=== PATIENT | female | born 1940 | race Caucasian/White ===

== ENCOUNTER 2017-05-20 18:35 | Emergency (ER) | payer MEDICARE, OTHER, SELFPAY ==
[2017-05-20 18:37] VITALS: BP 142/91; PULSE 91; RESP 16; TEMP 37.1; O2SAT 98; BMI 27.2
--- NOTE | 2017-05-20 18:52 | CT_ITS ---
STUDY: CT ABDOMEN AND PELVIS WITHOUT CONTRAST REASON FOR EXAM: Female, 76 years old. Right flank pain x2 days RADIATION DOSAGE (If Supplied By Facility): CTDIvol = ( 9.35 ) mGy, DLP = ( 457.97 ) mGycm TECHNIQUE: Transaxial images were obtained from the dome of the diaphragm to the symphysis pubis without oral contrast, and without intravenous contrast. Sagittal and coronal images were reconstructed. Individualized dose optimization techniques were used for this CT. COMPARISON: Prior study of 11/10/2014 FINDINGS: There are mild bibasilar fibrotic changes. The visualized portions of the heart are within normal limits. There is a 1.3 cm right hepatic lobe cyst, stable in the interval. Normal gallbladder and extrahepatic biliary system. Normal spleen. Normal pancreas. Normal bilateral adrenal glands. There is a low-attenuation 1.5 cm focus of the midpole of the right kidney consistent with cyst, appearing stable in the interval. There is a 5.7 cm cyst of the posterior left kidney. There is an additional smaller left parapelvic cyst. These are stable in the interval. Normal visualized stomach. Normal small intestine. There is colonic diverticulosis with no evidence of associated diverticulitis. The appendix is visualized and appears normal. There are calcified plaques of the abdominal aorta and iliac arteries. 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 There has been migration of multiple filter struts beyond the ellis of the IVC. There is no evidence of retroperitoneal hematoma or mass. Normal retroperitoneum. A number of the pelvic images are technically limited due to scanning artifact caused by left hip implants. No bladder abnormalities identified. There is absence of the uterus consistent with a prior hysterectomy. Abdominal wall hernia repair changes are noted. There are diffuse degenerative changes of the visualized thoracolumbar spine. There is a grade 1 anterolisthesis of L4 relative to L5. Status post total left hip replacement changes are seen. CT/Abdomen/Pelvis without Cont IMPRESSION: 1. 1.3 cm right hepatic lobe cyst, stable in the interval. 2. Stable bilateral renal cysts. 3. Colonic diverticulosis with no evidence of associated diverticulitis. 4. An IVC filter is noted with migration of multiple filter struts beyond the ellis of the IVC. There is no evidence of associated retroperitoneal hematoma. This finding was also noted on the prior study and is stable in the interval. 5. Status post total left hip replacement changes. 6. Status post hysterectomy. 7. Status post intra-abdominal wall hernia repair changes. 8. Diffuse degenerative changes of the visualized thoracolumbar spine. Grade 1 anterolisthesis of L4 relative to L5. 9. There is no evidence of free intra-abdominal or intrapelvic air, fluid, or inflammatory process. Electronically Signed: Cooper Ramirez MD at 20:22 EST , Service support ,
[2017-05-20] MEDS: Ondansetron 4 MG/2 ML Vial IV (19:00)
[2017-05-20] MEDS: 0.9% Normal Saline 1,000 ML 150 ML IV (19:00)
[2017-05-20 19:07] LABS: Absolute Lymphocyte Count 1.67 X10^3/ul (0.83-4.51); Absolute Neutrophil Count 5.8 X10^3/uL (2.0-7.7); Basophil# 0.05 X10^3/uL; Basophil% 0.6 % (0-1); Eosinophil# 0.21 X10^3/uL; Eosinophils% 2.5 % (0-5); Hematocrit 48.1 % (37-47); Hemoglobin 15.9 g/dl (12.0-15.0); Lymphocyte # 1.67 X10^3/ul (4.0); Lymphocyte % 19.5 % (19-41); Mean Corp Hgb Conc 33.1 g/gl (32-36); Mean Corpuscular Hgb 29.7 pg (27.0-32.0); Mean Corpuscular Volume 89.7 fL (81-99); Mean Platelet Vol. 9.8 fl (6.2-12.0); Monocyte# 0.79 X10^3/uL; Monocyte% 9.2 % (0-10); Neutrophil # 5.81 X10^3/uL (2.7-7.7); POSITIVE COUNT NO; POSITIVE DIFFERENTIAL NO; POSITIVE MORPHOLOGY NO; Platelet Count 254 K/mm3 (150-450); RBC Distribution Width SD 43.2 fl (35.1-43.9); Red Blood Count 5.36 M/mm3 (4.2-5.4); White Blood Count 8.6 K/mm3 (4.4-11.0)
[2017-05-20 19:12] LABS: Anion Gap 6 (5-15); BUN 15 mg/dL (7-18); Calcium,Total 8.7 mg/dL (8.5-10.1); Chloride 104 mmol/L (98-107); Creatinine, Serum 1.07 mg/dL (0.55-1.02); EST Glomerular Filtration Rate 53 mL/min (>60); Est Glom Filt Rate - Afr Amer 64 mL/min (>60); Estimated Creatinine Clearance 40.25 ml/min; Glucose 141 mg/dL (74-106); Potassium 3.7 mmol/L (3.5-5.1); Sodium Level 139 mmol/L (136-145)
[2017-05-20 20:11] LABS: Bacteria 0 SEEN /hpf (None Seen); Squamous Epithelial Cells - UA 0 SEEN /hpf (5-10)
[2017-05-20 20:12] LABS: Color, Urine Yellow (Yellow); Glucose, Dipstick Normal (Normal); Ketone-Dipstick 5 mg/dl (Negative); Leukocyte Esterase-Dipstick 500 /ul (Negative); Nitrite-Dipstick Negative (Negative); Occult Blood-Urine 25 /ul (Negative); Protein-Dipstick Negative (Negative); Urine Bilirubin Dipstick Negative (Negative); Urine Clarity Clear (Clear); Urine Urobilinogen Normal (Normal)
[2017-05-20 20:21] LABS: Mucous, Urine 1+ /hpf (<or=2+); Red Blood Cells-Urine 0-5 SEEN /hpf (0-5); White Blood Cells 5-10 SEEN /hpf (0-5)
--- NOTE | 2017-05-20 20:38 | ED.DCSUM_ITS ---
- ER Visit Summary Date of Service: 05/20/17 Chief Complaint: Flank pain History of Present Illness: The patient is a 76 F who developed right-sided back pain yesterday when standing from a chair. She tried to massage the area which did in prove the pain shortly. Patient states that overnight last night pain wrapped around into the right lower quadrant. She tried taking tramadol 50 mg this morning minimal improvement. She has had problems with her back in the past but is never required injections or surgery. She denies urinary symptoms currently. Physical Examination: Vital signs are unremarkable. Patient is in no acute distress and is nontoxic appearing. Head and neck examination is normal. Heart is regular rate and rhythm. Palpable pulses are noted throughout. Lungs are clear with good air movement throughout. Abdomen is soft with mild tenderness in the right lower quadrant. There is no guarding or rebound. Back examination reveals tenderness in the right lumbar region. No skin changes are noted. Extremity examination is unremarkable with full range of motion. Neurologic examination reveals no focal deficits. Test Results: CBC reveals normal white count with hemoglobin of 15.9. Chemistry studies are grossly unremarkable. Urinalysis shows 5-10 white blood cells with [address] flank reveals stable hepatic cyst. Colonic diverticulosis is noted. There is an IVC filter that is stable when compared to prior study. Degenerative arthritic changes are noted. Emergency Department Course and Treatment: Patient was given morphine, Zofran, and IV fluids. At this time we will send a urine culture but not start antibiotics as the patient does not have symptoms. She will be given a prescription for [place] with a home pack tonight. Treatment Plan: [] Disposition: Discharge Impression: Right flank pain, musculoskeletal This note was generated with [employer] dictation software. It may contain incorrect words, spelling, and punctuation that were not noted in review of the chart prior to signing ED Disposition - Plan for ED Patient: Disposition: Home or Assisted Living Chief Complaint: Flank Pain Instructions: ED Flank Pain Uncertain Cause Prescriptions: Hydrocodone Bitart/Apap 5-325 [[place] 5/325] 1 - 2 tablet PO Q6H PRN PRN 3 Days # 12 tablet PRN Reason: Pain Referrals: Radha Mcrae MD [Primary Care Provider] - 1 Week
--- NOTE | 2017-05-20 20:38 | ED.DEP ---
ED Disposition - Plan for ED Patient: Disposition: Home or Assisted Living Chief Complaint: Flank Pain Instructions: ED Flank Pain Uncertain Cause Prescriptions: Hydrocodone Bitart/Apap 5-325 [[place] 5/325] 1 - 2 tablet PO Q6H PRN PRN 3 Days #12 tablet PRN Reason: Pain Referrals: Radha Mcrae MD [Primary Care Provider] - 1 Week
--- NOTE | 2017-05-20 20:41 | DCINST.ED_ITS ---
ED Disposition - Plan for ED Patient: Disposition: Home or Assisted Living Chief Complaint: Flank Pain Instructions: ED Flank Pain Uncertain Cause Prescriptions: Hydrocodone Bitart/Apap 5-325 [[place] 5/325] 1 - 2 tablet PO Q6H PRN PRN 3 Days # 12 tablet PRN Reason: Pain Referrals: Radha Mcrae MD [Primary Care Provider] - 1 Week
[2017-05-20] MEDS: HYDROcodone Bitartrate/Apap 5/325 Tablet PO (20:51)
[2017-05-20 20:54] VITALS: BP 127/77; PULSE 74; RESP 18; O2SAT 94
== END 2017-05-20 20:54 | disposition home or self-care (01) ==
PROVIDERS: Emergency Provider Emergency Medicine; Family Provider Internal Medicine; PCP Internal Medicine
DX: R10.31 Right lower quadrant pain (principal); I10 Essential (primary) hypertension; E03.9 Hypothyroidism, unspecified; Z79.01 Long term (current) use of anticoagulants; Z79.899 Other long term (current) drug therapy
CPT/HCPCS: 74176; 80048; 81001; 85025; 87077; 87086; 87088; 96361; 96374; 96375; 99283; J7030; A4216; J2405

== ENCOUNTER 2017-06-19 13:30 | Outpatient (RCR) | payer MEDICARE, OTHER, SELFPAY ==
--- NOTE | 2017-05-29 07:24 | HP.PTEVAL_ITS ---
Patient's Visit Information KEYONNA VILLAGOMEZ is a 76 year old F referred to Physical Therapy by [facility] with a diagnosis of lumbar disc degeneration. Date of Evaluation: 05/24/17 Physical Therapist: Baljinder Fowler - Visit Plan Frequency: 2-3x /Week Duration: 4-6 Weeks Plan: Start with SKTC, HS stretching, neutral spine core strengthening. May use modalities to reduce symptoms. progress to functional strengthening as tolerated. Instruct body mechanics and proper posture positioning. - Subjective Subjective: Pt. is here today for her initial evaluation with diagnosis of lumbar disc degeneration. Pt. reports having increased symptoms recently, for unknown reason, I just woke up with pain. Pt. reports having R sided pain. She has been feeling better over the past few days after taking predinose and muscle relaxors. Pt was previously having increased pain into her RLE to knee level. Pt. reports having previous issues, reduced with time. Pt. reports increased pain with all lifting, bending, twisting, sitting for too long and with getting up and down. Pt. reports no changes with B/B. Pt. reports improved symptoms since starting medications. Pt. is hopeful to reduce symptoms in order to increase tolerance to all activities and ALDs. - Pain Lumbar spine Pain Intensity (Out of 10): 2 Pain Intensity Range: 2, 6 Comment: R side of lumbar spine - Objective POSTURE: Pt. has slight increase in lumbar flexion in stnace, L lateral lean noted. Pt. had rounded shoulders and FH positioning. Pt. has equal iliac crest heights. Pt. has normal XIMENA with ewaul wt. shift in stance. PALPATION: Pt. has mild increase in symptoms to palpation of R side of lumbar erector spinea, R SI region, no pain at R gluteal region or piriformis. No pain noted on L side of lumbar spine or SI region. Pt. reports no pain with R/L hip palpation. NEUROLOGICAL: Pt. has normal sensation to light and sharp touch of bilateral LEs. Pt. has 2+ patellar and achilles DTR bilaterally. Pt. is able to rise on heels and toes without issues or signs of weakness. ROM: LUMBAR SPINE: flexion min loss increase NW (tightness), ext min loss increase NW (tightness), SB min loss bilat increase NW (tightness), rotation min loss increase NW (tightness). Pt. has normal hip ROM bilaterally, tight HS bilat. MMT: LLE- ankle 5/5 throughout; knee- ext 5-/5, flexion 5-/5; hip- flexion 4+/5, abd 4/5, ext 4+/5. RLE- ankle 5/5 throughout; knee- ext 4+/5, flexion 4+/5; hip- flexion 4/5 ( increase NW), and 4/5, ext 4/5. Core strength- poor. GAIT: Pt. ambulates without AD. Pt. has R lateral lean during R stance phase. Pt. has decreased R stance phase and increased R hip lateral excursion during R stance phase. STAIRS : Pt. negotiated with step to pattern with BHR with loading LLE throuhgout. Mild increase NW. - Special Tests L/S Slump test left side: Negative L/S Slump test right side: Negative L/S Left Straight Leg Raise: Negative L/S Right Straight Leg Raise: Negative Lumbar Standing: Flexion - Mechanical Response: No effect Lumbar Standing: Flexion - Symptoms During Testing: Increases Lumbar Standing: Flexion - Symptoms After Testing: No worse Lumbar Standing: Extension - Mechanical Response: No effect Lumbar Standing: Extension - Symptoms During Testing: Increases Lumbar Standing: Extension - Symptoms After Testing: No worse Lumbar Standing: Right Side Glides - Mechanical Response: No effect Lumbar Standing: Right Side [place] - Symptoms During Testing: Increases Lumbar Standing: Right Side [place] - Symptoms After Testing: No worse Lumbar Standing: Left Side [place] - Mechanical Response: No effect Lumbar Standing: Left Side [place] - Symptoms During Testing: Increases Lumbar Standing: Left Side [place] - Symptoms After Testing: No worse Lumbar Lying: Flexion - Mechanical Response: No effect Lumbar Lying: Flexion - Symptoms During Testing: Decreases Lumbar Lying: Flexion - Symptoms After Testing: Better - Goals Goal 1:: Pt. to be I with HEP. Goal Time Frame: 4-6 Weeks Goal 2:: Pt. to have increased lumbar ROM by 25% in all directions without increase in symptoms. Goal Time Frame: 4-6 Weeks Goal 3:: Pt. to sleep throughout the night with 0-2/10 pain in lumbar spine allowing for increased quality of life. Goal Time Frame: 4-6 Weeks Goal 4:: Pt. to have 0-2/10 pain with all walking and ADLs. Goal Time Frame: 4-6 Weeks Goal 5:: Pt. to get back to all recreational activities with 0-2/10 pain in lumbar spine. Goal Time Frame: 4-6 Weeks Goal 6:: Pt. to have increased core/B hip strength by 1/2 grade of all effected musculature. Goal Time Frame: 4-6 Weeks - Rehabilitation Potential Physical Therapy Diagnosis: Pt. has signs and symptoms of lumbar spine pain, but did not have any radiating symptoms this date. Pt. has general hypombility throughout spine with increased symptoms into lumbar extension. Pt. has increased pain with all functional mobility, but has improved since starting medications. Pt. would benefit from PT to increasse postural/core strength, body mechanics with lifting and ADLs and to reduce symptoms with all ADLs and household work. Rehabilitation Potential: Excellent - Anticipated Interventions Patient/Client Instruction: Educate patient on: Condition, Plan of Care, Risk Factors, Benefits of Fitness Program For the Purpose of:: To foster healthy habits, To improve decision making, To facilitate caregiver knowledge, To improve self management, To prevent re-injury , To improve ability to perform tasks related to life management, To improve tolerance to ADL's Therapeutic Exercise to Include: Strength training, Power training, Endurance training, Body mechanics, Postural training, Flexibilty training, Passive ROM, Active ROM, Dynamic Lumbar Stabilization, Luis Alberto Exercises For the Purpose of:: To decrease pain, To decrease swelling/inflammation, To increase ROM, To improve nutrient delivery to tissue, To increase oxygenation perfusion, To improve muscle performance and motor function, To improve ability to perform ADL's, To improve health of tissue, To decrease soft tissue restriction, To increase flexibility/ROM Manual Therapy Techniques to Include: Mobilization, Passive ROM, Functional dry needling, Soft tissue mobilization For the Purpose of:: To decrease pain, To decrease swelling/inflammation, To increase ROM, To improve nutrient delivery to tissue IF ES: Yes Cryotherapy (ice pack, ice massage): Yes Thermo therapy (hot pack): Yes Ultrasound (thermal/non thermal): Yes For the Purpose of:: To decrease pain, To decrease swelling/inflammation, To increase ROM Thank you for the opportunity to evaluate your patient. For Medicare and Medicare HMO plans, please review the plan of care and approve it. It will need to be FAXED BACK to us at [phone] for Medicare purposes. Please let me know if there are questions or concerns regarding this plan of care. Physician Signature: Date:
--- NOTE | 2017-06-20 11:54 | HP.PTREVAL_ITS ---
JOSE Caceres.RAMONITA It has been my pleasure to treat KEYONNA VILLAGOMEZ over the last 7 visits for lumbar disc degeneration. Please see the progress note below for an update on the physical therapy plan of care! Subjective: Pt. reports I was really good after last time. Pt. reports symptoms after started coming back over the few days. She reports being HEP compliant. Pt. reports being 65% better overall. Objective/Function: LUMBAR ROM: flexion nil loss increase NW, extension min loss NE, SB min/nil loss NE bilaterally, rotation min/nil loss NE bilaterally. Tight HS noted bilaterally. Pt. has minimal pain with walking, increased pain with static standing and with sitting. Talked to pt. about use of towel roll for lumbar support. MMT- RLE- ankle 5/5 throughout; knee- 5/5 throughout; hip- flexion 4+/5, abd 4/5, ext 4+/5. LLE- ankle 5/5 throughout; knee- ext 4+/5, flexion 4+/5; hip- flexion 4+/5, abd 4/5, ext 4+/5. Gait- Pt. is able to ambulate without issues or increase in symptoms. Plan Plan: POC extended x2 per week for 2-3 weeks to further progress with ext ROM, core strengthening and reduce symptoms to get back to functional mobility with decreased symptoms. Goals Goal 1:: Pt. to be I with HEP. Goal Time Frame: 4-6 Weeks Goal Progress: Goal Met Goal 2:: Pt. to have increased lumbar ROM by 25% in all directions without increase in symptoms. Goal Time Frame: 4-6 Weeks Goal Progress: Progressing Goal 3:: Pt. to sleep throughout the night with 0-2/10 pain in lumbar spine allowing for increased quality of life. Goal Time Frame: 4-6 Weeks Goal Progress: Goal Met Goal 4:: Pt. to have 0-2/10 pain with all walking and ADLs. Goal Time Frame: 4-6 Weeks Goal Progress: Progressing Goal 5:: Pt. to get back to all recreational activities with 0-2/10 pain in lumbar spine. Goal Time Frame: 4-6 Weeks Goal Progress: Progressing Goal 6:: Pt. to have increased core/B hip strength by 1/2 grade of all effected musculature. Goal Time Frame: 4-6 Weeks Goal Progress: Progressing Anticipated Interventions Patient/Client Instruction: Educate patient on: Condition, Plan of Care, Risk Factors, Benefits of Fitness Program For the Purpose of:: To foster healthy habits, To improve decision making, To facilitate caregiver knowledge, To improve self management, To prevent re-injury , To improve ability to perform tasks related to life management, To improve tolerance to ADL's Therapeutic Exercise to Include: Strength training, Power training, Endurance training, Body mechanics, Postural training, Flexibilty training, Passive ROM, Active ROM, Dynamic Lumbar Stabilization, Luis Alberto Exercises For the Purpose of:: To decrease pain, To decrease swelling/inflammation, To increase ROM, To improve nutrient delivery to tissue, To increase oxygenation perfusion, To improve muscle performance and motor function, To improve ability to perform ADL's, To improve health of tissue, To decrease soft tissue restriction, To increase flexibility/ROM Manual Therapy Techniques to Include: Mobilization, Passive ROM, Functional dry needling, Soft tissue mobilization For the Purpose of:: To decrease pain, To decrease swelling/inflammation, To increase ROM, To improve nutrient delivery to tissue IF ES: Yes Cryotherapy (ice pack, ice massage): Yes Thermo therapy (hot pack): Yes Ultrasound (thermal/non thermal): Yes For the Purpose of:: To decrease pain, To decrease swelling/inflammation, To increase ROM Please do not hesitate to contact me at [phone] by phone or Fax: if you have questions or concerns regarding this new plan of care! Sincerely, Baljinder Fowler
--- NOTE | 2017-10-31 17:04 | HP.PTDCNRP_ITS ---
HP - Discharge Summary (1) - Patient Information KEYONNA VILLAGOMEZ was seen in my office for initial evaluation on 05/24/17. The following Plan of Care was established for this patient: Initial Frequency: 2-3x /Week Initial Duration: 4-6 Weeks - Anticipated Interventions Patient/Client Instruction: Educate patient on: Condition, Plan of Care, Risk Factors, Benefits of Fitness Program For the Purpose of:: To foster healthy habits, To improve decision making, To facilitate caregiver knowledge, To improve self management, To prevent re-injury , To improve ability to perform tasks related to life management, To improve tolerance to ADL's Therapeutic Exercise to Include: Strength training, Power training, Endurance training, Body mechanics, Postural training, Flexibilty training, Passive ROM, Active ROM, Dynamic Lumbar Stabilization, Luis Alberto Exercises For the Purpose of:: To decrease pain, To decrease swelling/inflammation, To increase ROM, To improve nutrient delivery to tissue, To increase oxygenation perfusion, To improve muscle performance and motor function, To improve ability to perform ADL's, To improve health of tissue, To decrease soft tissue restriction, To increase flexibility/ROM Manual Therapy Techniques to Include: Mobilization, Passive ROM, Functional dry needling, Soft tissue mobilization For the Purpose of:: To decrease pain, To decrease swelling/inflammation, To increase ROM, To improve nutrient delivery to tissue IF ES: Yes Cryotherapy (ice pack, ice massage): Yes Thermo therapy (hot pack): Yes Ultrasound (thermal/non thermal): Yes For the Purpose of:: To decrease pain, To decrease swelling/inflammation, To increase ROM This patient was last seen in our office 06/19/17. Pertinent comments regarding their Physical therapy will appear below: Pt. was seen for her her lumbar disc pathology. Pt. was seen with slight progression with modalities and extension exercises. Pt. did not return to her subsequent visits. She has not been seen in ~4 months and will be DC from PT at this point intime. At this point I will be discontinuing this patient from physical therapy. I would be happy to see this patient again in the future if found appropriate by the physician. Thank you! Baljinder Fowler
== END 2017-06-19 19:00 | disposition home or self-care (01) ==
LOC: PT 13:30
PROVIDERS: Family Provider Internal Medicine; PCP Internal Medicine; Visit Provider Physician Assistant
DX: M54.5 Low back pain (principal); M51.36 Other intervertebral disc degeneration, lumbar region
CPT/HCPCS: 97014; 97035; 97110; 97162; G0283

== ENCOUNTER 2017-10-24 10:16 | Emergency (ER) | payer MEDICARE, OTHER, SELFPAY ==
[2017-10-24 10:17] VITALS: BP 127/67; PULSE 100; RESP 16; TEMP 36.8; O2SAT 97; BMI 25.0
--- NOTE | 2017-10-24 10:57 | EKG12_ITS ---
Test Reason : Blood Pressure : / mmHG Vent. Rate : 084 BPM Atrial Rate : 084 BPM P-R Int : 176 ms QRS Dur : 086 ms QT Int : 392 ms P-R-T Axes : 020 -34 045 degrees QTc Int : 463 ms Normal sinus rhythm Left axis deviation Inferior infarct , age undetermined Anteroseptal infarct , age undetermined Abnormal ECG Confirmed by SHAMA COYLE, DEMETRA ([id number]), sports editor NETO SEE ([id number]) on 10/26/2017 1:40:03 PM Referred By: Fritz Craven Confirmed By:DEMETRA SESAY MD
[2017-10-24 11:17] LABS: Absolute Lymphocyte Count 1.15 X10^3/ul (0.83-4.51); Basophil# 0.01 X10^3/uL; Basophil% 0.2 % (0-1); Eosinophil# 0.12 X10^3/uL; Eosinophils% 2.5 % (0-5); Hematocrit 45.3 % (37-47); Hemoglobin 14.9 g/dl (12.0-15.0); Lymphocyte # 1.15 X10^3/ul (4.0); Lymphocyte % 23.7 % (19-41); Mean Corp Hgb Conc 32.9 g/gl (32-36); Mean Corpuscular Hgb 29.5 pg (27.0-32.0); Mean Corpuscular Volume 89.7 fL (81-99); Mean Platelet Vol. 9.1 fl (6.2-12.0); Monocyte# 0.56 X10^3/uL; Monocyte% 11.5 % (0-10); Neutrophil # 3.02 X10^3/uL (2.7-7.7); Neutrophil % 62.1 % (47-70); Platelet Count 225 K/mm3 (150-450); RBC Distribution Width CV 13.7 % (11.6-14.6); RBC Distribution Width SD 44.4 fl (35.1-43.9); Red Blood Count 5.05 M/mm3 (4.2-5.4); White Blood Count 4.9 K/mm3 (4.4-11.0)
[2017-10-24 11:21] LABS: POSITIVE COUNT NO; POSITIVE DIFFERENTIAL NO; POSITIVE MORPHOLOGY NO
[2017-10-24 11:28] LABS: International Normalized Ratio 1.8; Prothrombin Time (Protime)PT. 21.2 SECONDS (11.7-14.9)
[2017-10-24 11:29] LABS: Anion Gap 8 (5-15); BUN 22 mg/dL (7-18); BUN/Creat Ratio 18.8 RATIO (10-20); Calcium,Total 8.8 mg/dL (8.5-10.1); Chloride 107 mmol/L (98-107); Creatinine, Serum 1.17 mg/dL (0.55-1.02); EST Glomerular Filtration Rate 48 mL/min (>60); Est Glom Filt Rate - Afr Amer 58 mL/min (>60); Estimated Creatinine Clearance 36.81 ml/min; Glucose 104 mg/dL (74-106); Potassium 4.2 mmol/L (3.5-5.1); Sodium Level 142 mmol/L (136-145)
[2017-10-24 11:42] LABS: D-Dimer Quantitative (DVT/PE) < 0.27 FEU/ug/m (0.27-0.49)
--- NOTE | 2017-10-24 13:33 | ED.DCSUM_ITS ---
- ER Visit Summary Date of Service: 10/24/17 Chief Complaint: Right-sided pain, nausea, diaphoresis and lightheadedness/ dizziness with shortness of breath History of Present Illness: The patient is a 76 F who was vacationing with her . They left for [place] October 12. They returned this past Sunday. Drive home was 12-13 hours. Patient states she is on Coumadin. She has not missed any of her doses. She states her right leg hurts slightly. She presently has no complaints. She denies fever, chills night sweats. Denies ocular, visual or auditory symptoms. She 90 chest discomfort of any type including pleuritic. She denies hematemesis, melena hematochezia. She denies any dysuria, frequency, urgency hematuria. She denies low back pain. She states she had right-sided abdominal pain going down to her foot. She took tramadol for 2 days. She denied taking tramadol on Sunday since she felt much better. She did report black stool. After lab results returned asked if she had any change in diet. She admits to eating more greens than normal. Physical Examination: Patient appears in no distress. Vital signs are remarkable for heart rate 100. Head is atraumatic normocephalic. Pupils are equal round reactive. Extraocular muscles are intact. TMs are pearly white with landmarks noted. Nares patent with no drainage. Posterior pharynx without erythema or exudate. Uvula is midline. There is no dysphonia or dysphasia. Trachea is midline. There is no stridor with auscultation of the neck. Heart is regular without murmur, gallop or rub. S1 and S2 are normal. Lungs are clear to auscultation with good movement of air bilaterally. Abdomen soft nontender with normal bowel sounds. There is no tympany to percussion. There is no CVA tenderness noted. There is no inguinal lymphadenopathy. Rectal exam reveals external hemorrhoids grade 1-2 with no fissures or fistulas noted. Stool was brown. She has no dermatologic lesions noted. There is no asymmetry, swelling, discoloration, leg vein distention, palpable cords V tenderness along the distribution of the deep venous system. Neuro exam is nonfocal. Test Results: EKG sinus rhythm rate 84 with decreased anterior force and left anterior fascicular block. CBC unremarkable. Creatinine is 1.17. INR subtherapeutic at 1.8. D-dimer is less than 0.27. Emergency Department Course and Treatment: To evaluate patient's symptoms CBC, BMP, INR and d-dimer was obtained. Concerned she may be subtherapeutic since she is increased her consumption of green leafy products. She cannot recall whether she experienced pain when she had the symptoms of nausea, diaphoresis, dizziness/lightheadedness with shortness of breath. Treatment Plan: D-dimer was normal. Creatinine was slightly elevated 1.17. Patient was informed her INR is low most likely because of change in her diet. She states it was checked 2-1/2 weeks ago was 2.5. Disposition: Discharged to home in stable condition Impression: Nausea, diaphoresis and dizziness suspect vasovagal episode History of VTE multiple sites History of hypertension This note was generated with [employer] dictation software. It may contain incorrect words, spelling, and punctuation that were not noted in review of the chart prior to signing ED Disposition - Plan for ED Patient: Disposition: Home or Assisted Living Chief Complaint: Dizziness Instructions: ED Near Syncope Unkn Referrals: Radha Mcrae MD [Primary Care Provider] - 1-2 Days if not improving
[2017-10-24 13:39] VITALS: BP 128/74; PULSE 69; RESP 15; O2SAT 97
== END 2017-10-24 13:40 | disposition home or self-care (01) ==
PROVIDERS: Emergency Provider Emergency Medicine; Family Provider Internal Medicine; PCP Internal Medicine
DX: R11.0 Nausea (principal); R61 Generalized hyperhidrosis; R42 Dizziness and giddiness; R55 Syncope and collapse; Z86.718 Personal history of other venous thrombosis and embolism; I10 Essential (primary) hypertension; K64.4 Residual hemorrhoidal skin tags; I44.4 Left anterior fascicular block; M79.661 Pain in right lower leg; Z87.19 Personal history of other diseases of the digestive system; Z79.01 Long term (current) use of anticoagulants; Z79.899 Other long term (current) drug therapy
CPT/HCPCS: 80048; 85025; 85379; 85610; 93005; 99284; A4216

== ENCOUNTER → 2017-11-21 09:15 | Outpatient (CLI) | payer MEDICARE, OTHER, SELFPAY ==
[2017-11-21 10:10] LABS: AST(SGOT) 23 U/L (15-37); Alanine Aminotransfer ALT/SGPT 34 U/L (13-56); Albumin, Serum 3.6 g/dL (3.2-5.0); Alkaline Phosphatase 114 U/L (45-117); Bilirubin, Direct 0.18 mg/dL (0.00-0.30); Cholesterol 174 mg/dL (200); Globulin 3.1 g/dL (2.2-4.2); High Density Lipoprotein 58 mg/dL; Protein, Total 6.7 g/dL (6.4-8.2); Triglycerides 78 mg/dL; Very Low Density Lipoprotein 16 mg/dL (5-40)
== END ==
PROVIDERS: Family Provider Internal Medicine; PCP Internal Medicine; Visit Provider Internal Medicine Cardiovascular Disease
DX: E78.5 Hyperlipidemia, unspecified (principal)
CPT/HCPCS: 36415; 80061; 80076

== ENCOUNTER → 2017-11-26 12:33 | Outpatient (CLI) | payer MEDICARE, OTHER, SELFPAY | PROVIDERS: Family Provider Internal Medicine; PCP Internal Medicine; Visit Provider Internal Medicine Cardiovascular Disease | DX: R07.9 Chest pain, unspecified (principal); Z98.890 Other specified postprocedural states | CPT/HCPCS: 93306 ==

== ENCOUNTER → 2017-11-29 09:26 | Outpatient (CLI) | payer MEDICARE, OTHER, SELFPAY | PROVIDERS: Family Provider Internal Medicine; PCP Internal Medicine; Visit Provider Internal Medicine Cardiovascular Disease | DX: R07.9 Chest pain, unspecified (principal) | CPT/HCPCS: 93017; 93350 ==

== ENCOUNTER → 2017-12-17 07:53 | Outpatient (CLI) | payer MEDICARE, OTHER, SELFPAY ==
--- NOTE | 2017-12-17 08:03 | RAD_ITS ---
STUDY: X-RAY - ESOPHAGUS (BARIUM SWALLOW) WITH FLUOROSCOPY REASON FOR EXAM: Female, 77 years old. Dysphasia. TECHNIQUE: 18 view(s) of the esophagus were obtained following swallowing of barium. FLUOROSCOPY TIME (if supplied): (0:27) minutes/seconds COMPARISON: None. FINDINGS: There is no demonstrated esophageal foreign body. Mild degree of tertiary contractions of the mid and distal esophagus. Normal gastroesophageal junction, without a demonstrated hiatal hernia. The patient ingested a 12 mm tablet at bedtime without any difficulty. There is atherosclerotic calcification of the aortic arch with tortuosity of the descending aorta. Normal visualized pulmonary parenchyma. There are degenerative changes of the visualized thoracic spine. RAD/Esophagus Only IMPRESSION: Mild degree of tertiary contractions of the mid and distal esophagus. Electronically Signed: Paulo Anne MD at 10:18 EDT Tel [phone], Service support ,
== END ==
PROVIDERS: Family Provider Internal Medicine; PCP Internal Medicine; Visit Provider Internal Medicine Gastroenterology
DX: R13.10 Dysphagia, unspecified (principal)
CPT/HCPCS: 74220

== ENCOUNTER → 2018-07-16 15:11 | Outpatient (CLI) | payer MEDICARE, OTHER, SELFPAY ==
[2018-05-27 16:19] VITALS: BMI 25.9
[2018-07-16 18:10] LABS: International Normalized Ratio 1.4; Prothrombin Time (Protime)PT. 16.6 SECONDS (11.7-14.9)
== END ==
PROVIDERS: Family Provider Internal Medicine; PCP Internal Medicine; Referring Provider Anesthesiology Pain Medicine; Visit Provider Anesthesiology Pain Medicine
DX: Z01.818 Encounter for other preprocedural examination (principal); Z79.01 Long term (current) use of anticoagulants
CPT/HCPCS: 36415; 85610

== ENCOUNTER → 2018-09-11 09:41 | Outpatient (CLI) | payer MEDICARE, OTHER, SELFPAY ==
[2018-05-27 16:19] VITALS: BMI 25.9
[2018-09-11 10:49] LABS: International Normalized Ratio 1.3; Prothrombin Time (Protime)PT. 16.2 SECONDS (11.7-14.9)
== END ==
PROVIDERS: Family Provider Internal Medicine; PCP Internal Medicine; Referring Provider Nurse Practitioner Family; Visit Provider Nurse Practitioner Family
DX: Z79.01 Long term (current) use of anticoagulants (principal)
CPT/HCPCS: 36415; 85610

== ENCOUNTER → 2018-09-17 15:58 | Outpatient (CLI) | payer MEDICARE, OTHER, SELFPAY ==
[2018-05-27 16:19] VITALS: BMI 25.9
--- NOTE | 2018-09-17 16:01 | VDLE_ITS ---
Reason For Study: LLE SWELLING RIGHT LEFT CFV is compressible, spontaneous, phasic, CFV is compressible, spontaneous, phasic, competent and demonstrates normal competent, and demonstrates normal augmentation. augmentation. Procedure FV is compressible, spontaneous, phasic, Exam performed in department. competent and demonstrates normal The exam was diagnostic. augmentation. A preliminary report was called and/or faxed POP V is compressible, spontaneous, phasic, to Dr. Narvaez's office notified at 4:30 pm. competent and demonstrates normal augmentation. T/P Trunk is compressible. PTV is compressible. LT PerV is compressible. GSV is dilated and non-compressible just below the knee to mid calf. Balance of GSV is patent and compressible. Thrombus filled varocosities are noted in proximal/medial calf area. Interpretation Summary Deep veins of the left lower extremity are patent and compressible segmentally. There is no evidence of left lower extremity deep vein thrombosis. Valvular competence appears intact within the proximal deep venous system on the left . Acute superficial thrombophlebitis is noted in the left great saphenous vein from just below the knee to the mid-calf. The remainder of the left great saphenous vein is patent and compressible. Acute superficial thrombophlebitis is noted involving superficial varicosities in the left proximal, medial calf. Ordering Physician: Omer Narvaez Referring Physician: Radha Mcrae Performed By: Norma Klein, RDCS, RVT
== END ==
PROVIDERS: Family Provider Internal Medicine; PCP Internal Medicine; Referring Provider Internal Medicine Hematology & Oncology; Visit Provider Internal Medicine Hematology & Oncology
DX: I82.511 Chronic embolism and thrombosis of right femoral vein (principal); M79.89 Other specified soft tissue disorders
CPT/HCPCS: 93971

== ENCOUNTER 2018-11-04 07:11 | Emergency (ER) | payer MEDICARE, OTHER, SELFPAY ==
[2018-09-25 14:11] VITALS: BMI 25.9
[2018-11-04 07:12] VITALS: BP 125/70; PULSE 101; RESP 17; TEMP 36.1; O2SAT 98; BMI 24.4
[2018-11-04 07:22] VITALS: PULSE 76
--- NOTE | 2018-11-04 07:36 | EKG12_ITS ---
Test Reason : DYSRHYTHMIA Blood Pressure : / mmHG Vent. Rate : 072 BPM Atrial Rate : 072 BPM P-R Int : 196 ms QRS Dur : 088 ms QT Int : 400 ms P-R-T Axes : 042 -38 047 degrees QTc Int : 438 ms Normal sinus rhythm Left axis deviation Inferior infarct , age undetermined Cannot rule out Anterior infarct , age undetermined Abnormal ECG Confirmed by NELSON VELASQUEZ ([id number]), editor index NETO SEE ([id number]) on 11/06/2018 3:26:57 PM Referred By: Confirmed By:NELSON VELASQUEZ
--- NOTE | 2018-11-04 07:42 | ED.DCSUM_ITS ---
- ER Visit Summary Date of Service: 11/04/18 Chief Complaint: Generalized weakness History of Present Illness: The patient is a 77 F states that she is been feeling generally weak and nauseated since Sunday. States on Sunday and she had some cantaloupe which she states was not quite right. She notes generalized abdominal discomfort. Loose bowel movement on Sunday and yesterday morning. Nausea better today but still does not feel like eating much. There is no focal weakness. No syncope. She notes intermittent palpitations (history of SVT). 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 No fevers. She notes phlegm in her throat. She is supposed to have a colonoscopy tomorrow and is status post to start her colon prep today. She states that over the weekend she has not been eating much was trying to drink Gatorade. He went to urgent care and due to her palpitations and was referred to the emergency department Physical Examination: Afebrile vital signs are stable Gen: Well-nourished well-developed Head: Normocephalic atraumatic Eyes: Perrl EOMI ENT: TMs clear no rhinorrhea moist mucous membranes Neck: Supple no lymphadenopathy no JVD nontender CVS: Regular rate rhythm no murmurs normal S1-S2 Respiratory: No distress clear to auscultation bilaterally chest nontender Abdomen: Soft nontender nondistended normal bowel sounds no masses Back: Nontender Extremity: Nontender no edema Skin: Normal color no rash Neuro: alert orientated ?3 CN II-XII intact normal strength sensation reflexes gait cerebellar Psych: Normal affect normal mood Test Results: EKG shows a normal sinus rhythm at a rate of 72. No ectopy. Chest x-ray is concerning for left lingular. White count 5.1. BUN 26 with creatinine 1.35. Urinalysis negative troponin 0.016. Emergency Department Course and Treatment: She received a liter of IV fluids. Clinically she continues to look well. She tells me this cough that she has been experiencing is not new. So I question the chest x-ray finding of a left lower lobe infiltrate. She has not been having fevers. She has a normal white blood cell count but this finding on chest x-ray is distinctly different from chest x-ray in 2015. Given her clotting disorder and recent change from Lovenox to Coumadin we ordered a CTA of the chest that shows no pulmonary embolism or infarct. Continues to show concern for a left lower lobe infiltrate. We will place her on azithromycin. She was on amoxicillin 1 month ago for left leg cellulitis. The patient was instructed to follow-up with primary care in 1 week and if she is doing better she can receive colonoscopy. The BUN of 26 and creatinine 1.35 is new compared to old old records but we do not have anything recent to compare to. Impression: 1. Left lung infiltrate This note was generated with [employer] dictation software. It may contain incorrect words, spelling, and punctuation that were not noted in review of the chart prior to signing ED Disposition - Plan for ED Patient: Disposition: Home or Assisted Living Instructions: Walking Pneumonia Prescriptions: Azithromycin [Zithromax Z-Nick] 250 mg PO UD #1 box Transmission Status: Pending to [facility] Ondansetron [Zofran Odt] 4 mg PO Q8H PRN PRN #10 tab PRN Reason: Nausea Transmission Status: Pending to [facility] [place] [facility] Referrals: Radha Mcrae MD [Primary Care Provider] - 1 Week Additional Instructions: Your prescriptions were sent to your pharmacy electronically
[2018-11-04] MEDS: 0.9% Normal Saline 1,000 ML 1000 ML IV (07:48)
[2018-11-04 07:53] LABS: Absolute Neutrophil Count 3.1 X10^3/uL (2.0-7.7); Basophil# 0.03 X10^3/uL; Basophil% 0.6 % (0-1); Eosinophil# 0.23 X10^3/uL; Eosinophils% 4.5 % (0-5); Hematocrit 46.4 % (37-47); Hemoglobin 15.4 g/dL (12.0-15.0); Lymphocyte % 19.6 % (19-41); Mean Corp Hgb Conc 33.2 g/dL (32-36); Mean Corpuscular Volume 90.3 fL (81-99); Mean Platelet Vol. 9.2 fl (6.2-12.0); Monocyte# 0.71 X10^3/uL; Monocyte% 13.9 % (0-10); NRBC Flagged by Analyzer 0 % (0-5); Neutrophil # 3.09 X10^3/uL (2.7-7.7); Neutrophil % 60.6 % (47-70); Platelet Count 259 K/mm3 (150-450); RBC Distribution Width CV 12.4 % (11.6-14.6); RBC Distribution Width SD 41.1 fl (35.1-43.9); Red Blood Count 5.14 M/mm3 (4.2-5.4); White Blood Count 5.1 K/mm3 (4.4-11.0)
--- NOTE | 2018-11-04 08:08 | RAD_ITS ---
STUDY: X-RAY CHEST REASON FOR EXAM: Female, 77 years old. Dyspnea, weakness and palpitations. TECHNIQUE: PA and lateral views of the chest. COMPARISON: Comparison is made with prior study dated October 17, 2014. FINDINGS: EKG electrodes are seen. Focal infiltrate is seen in the lingular segment of the left upper lobe There is no demonstrated pleural abnormality. Normal size heart. Normal mediastinum and ricci. Normal visualized pulmonary arteries. There is atherosclerotic tortuosity of the aortic arch and descending thoracic aorta. There are diffuse degenerative changes of the visualized thoracic spine. Normal visualized ribs, clavicles, and shoulders. There is no demonstrated abnormality of the visualized soft tissue structures of the upper abdomen. RAD/Chest PA and Lateral IMPRESSION: Focal lingular infiltrate. Electronically Signed: Paulo Anne, at 8:32 EDT , Service support ,
[2018-11-04 08:10] LABS: AST(SGOT) 37 U/L (15-37); Alanine Aminotransfer ALT/SGPT 44 U/L (13-56); Albumin, Serum 3.4 g/dL (3.2-5.0); Alkaline Phosphatase 75 U/L (45-117); Anion Gap 10 (5-15); BUN 26 mg/dL (7-18); BUN/Creat Ratio 19.3 RATIO (10-20); Calcium,Total 9.1 mg/dL (8.5-10.1); Chloride 110 mmol/L (98-107); Creatinine, Serum 1.35 mg/dL (0.55-1.02); EST Glomerular Filtration Rate 40 mL/min (>60); Est Glom Filt Rate - Afr Amer 49 mL/min (>60); Globulin 3.3 g/dL (2.2-4.2); Glucose 99 mg/dL (74-106); Lipase 88 U/L (73-393); Potassium 3.8 mmol/L (3.5-5.1); Protein, Total 6.7 g/dL (6.4-8.2); Sodium Level 143 mmol/L (136-145)
[2018-11-04 09:12] LABS: Bacteria 0 SEEN /hpf (None Seen); Mucous, Urine 0 SEEN /hpf (<or=2+); Red Blood Cells-Urine 0 SEEN /hpf (0-5); White Blood Cells 0 SEEN /hpf (0-5)
[2018-11-04 09:14] LABS: Color, Urine Yellow (Yellow); Glucose, Dipstick Normal (Normal); Ketone-Dipstick 5 mg/dl (Negative); Leukocyte Esterase-Dipstick 25 /ul (Negative); Nitrite-Dipstick Negative (Negative); Occult Blood-Urine 25 /ul (Negative); Protein-Dipstick 15 mg/dl (Negative); Specific Gravity, Urine 1.005 (1.002-1.030); Urine Bilirubin Dipstick Negative (Negative); Urine Clarity Clear (Clear); Urine Urobilinogen Normal (Normal); Urine pH 6.5 (5.0 - 8.0)
[2018-11-04 09:35] LABS: Squamous Epithelial Cells - UA 0-5 SEEN /hpf (5-10)
--- NOTE | 2018-11-04 10:00 | CT_ITS ---
STUDY: CTA CHEST REASON FOR EXAM: Female, 77 years old. Dyspnea. Weakness. History of prior pulmonary emboli. RADIATION DOSAGE (If Supplied By Facility): CTDIvol = ( 10.67 ) mGy, DLP = ( 355.31 ) mGycm TECHNIQUE: The examination was performed with the intravenous administration of 100 IV Isovue 370. Post-processing of the angiographic images was performed, with multiplanar reformation and 3D reconstruction. Individualized dose optimization techniques were used for this CT. COMPARISON: None. FINDINGS: Normal enhancement of the main pulmonary artery and right and left pulmonary arteries. Normal enhancement of the bilateral peripheral pulmonary arteries. There is no demonstrated pulmonary embolism. Normal thoracic aorta and visualized great vessels. There is no demonstrated aortic dissection. Normal heart and pericardium. Normal mediastinum. Normal hilar regions. Normal visualized trachea and bronchi. The lungs are well expanded. Increased markings in the anterior segment of the left lower lobe suggestive of infiltrate. Normal pleura. Normal chest wall structures. There are degenerative changes of thoracic spine. There is a 1.7 cm x 1.6 cm cyst in the upper aspect of the right lobe of the liver. Small hiatal hernia. 6.2 cm x 6.57 m cyst in the upper pole of the left kidney. CT/CTA Chest W/WO Contrast IMPRESSION: Increased markings in the anterior aspect of the left lower lobe suggestive of a early infiltrate. Electronically Signed: Paulo Anne, at 12:18 EDT , Service support ,
[2018-11-04] MEDS: DiphenhydrAMINE 50 MG/ML Syringe 25 MG IV (10:09)
[2018-11-04] MEDS: Ondansetron 4 MG/2 ML Vial IV (10:11)
[2018-11-04] MEDS: MethylPREDNISolone 125 MG/2 ML Vial IV (10:12)
[2018-11-04 10:13] VITALS: BP 127/74
[2018-11-04 12:00] VITALS: BP 120/76; PULSE 68; RESP 16; O2SAT 95
[2018-11-04 12:50] VITALS: BP 121/58; PULSE 73; RESP 16; O2SAT 95
== END 2018-11-04 12:56 | disposition home or self-care (01) ==
PROVIDERS: Emergency Provider Emergency Medicine; Family Provider Internal Medicine; PCP Internal Medicine
DX: R91.8 Other nonspecific abnormal finding of lung field (principal); Z86.711 Personal history of pulmonary embolism; Z86.718 Personal history of other venous thrombosis and embolism; Z79.01 Long term (current) use of anticoagulants; I10 Essential (primary) hypertension; K21.9 Gastro-esophageal reflux disease without esophagitis; Z79.899 Other long term (current) drug therapy
CPT/HCPCS: 71046; 71275; 80053; 81001; 83690; 84484; 85025; 93005; 96361; 96374; 96375; 99284; J7030; Q9967; A4216; J2405

== ENCOUNTER 2018-12-10 06:45 | Day surgery (SDC) | payer MEDICARE, OTHER, SELFPAY ==
[2018-09-25 14:11] VITALS: BMI 25.9
[2018-12-10 07:10] VITALS: BP 85/53; PULSE 96; RESP 16; TEMP 36.6; O2SAT 99; BMI 24.1
[2018-12-10] MEDS: Lactated Ringers 1,000 ML 100 ML IV (07:27)
--- NOTE | 2018-12-10 07:34 | HP.PCM_ITS ---
Problem List (1) Rectal bleeding Status: Acute (2) Personal history of colonic polyps Status: Acute History and Physical Date of Admission: 12/10/18 Intake Visit Reasons: C-Scope Consult/blood in stool - self ref Chief Complaint: Routine f/u Development Editor Required: No Is patient in pain?: No (Lower abdominal pain on and off) Allergies Iodinated Contrast- Oral and IV Dye Allergy (Severe, Verified 09/25/18 14:06) Hives iodine Allergy (Verified 09/25/18 14:06) Anaphylaxis Medications Losartan Potassium [Cozaar] 100 mg PO DAILY 10/17/14 [History Confirmed 09/25/18] traMADol [Ultram (G)] 50 mg PO Q6H PRN PRN 05/20/17 [History Confirmed 09/25/18] warfarin 2 mg tablet 2 mg PO .COMPLEX 11/20/17 [History Confirmed 09/25/18] omeprazole 20 mg capsule,delayed release 20 mg PO QDAY #90 cap 04/15/18 [Rx Confirmed 09/25/18] levothyroxine 88 mcg tablet 88 mcg PO DAILY tab 05/27/18 [History Confirmed 09/25/18] amlodipine 5 mg tablet 5 mg PO DAILY 09/25/18 [History Confirmed 09/25/18] enoxaparin 60 mg/0.6 mL subcutaneous syringe 60 mg SC Q12H 09/25/18 [History Confirmed 09/25/18] polyethylene glycol 3350 17 gram/dose oral powder 17 g PO BID PRN 09/25/18 [History Confirmed 09/25/18] PFSH Medical History Thrombophlebitis of superficial veins of left lower extremity (Acute) Cellulitis of left lower extremity (Acute) History of pulmonary embolus (PE) (Chronic ~2009) Generalized weakness (Acute) Palpitations (Acute) Hyperlipidemia (Chronic) Neuralgia of groin (Acute) hx of APLL (Acute) Hx of hysterectomy (Chronic) Acid reflux (Acute) Blood in stool (Acute) Constipation (Acute) Abdominal pain (Acute) Shortness of breath (Acute) Heart murmur (Acute) Arthritis (Acute) Back problem (Acute) Chest pain (Acute) Hypofibrinogenemia (Chronic) Hypothyroidism (Chronic) Hypertension (Chronic) History of venous thrombosis and embolism (Chronic) Hemorrhoids (Chronic) Gastrointestinal hemorrhage (Chronic) LVH (left ventricular 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 (Chronic) Diverticulitis of sigmoid colon (Chronic) Surgical History History of left heart catheterization (Chronic 1991) Hx of bladder repair surgery (Chronic) Hx of arthroscopic knee surgery (Chronic) History of left hip replacement (Chronic) Hx of partial thyroidectomy (Chronic) Hx of umbilical hernia repair (Chronic ~2009) Hx of bilateral inguinal hernia repair (Chronic) Family History Mother Colon cancer Brother Myeloma Father Heart disease Social History (Updated 09/25/18 @ 16:04 by Daquan Frazier MD) Smoking Status: Never smoker second hand exposure: No alcohol intake: never substance use type: does not use caffeine: Yes (very rare) what type of physical activity do you participate in: none frequency: does not exercise seatbelt use: always HPI HPI HPI: KEYONNA VILLAGOMEZ, is a 77 F who presents to the office today for surgical consultation regarding an episode of bright red rectal bleeding. The patient was referred by her primary care physician a written copy of my surgical consult will be returned to her. The patient is age 77. She has actually had several ongoing current issues. She is on chronic Coumadin for hypofibrinogenemia. She stopped her Coumadin for 5 days to allow for a pain injection for her back. She then very recently developed an acute superficial thrombophlebitis of her left lower extremity involving the proximal calf and extensively involving the thigh. She was then placed on therapeutic Lovenox therapy 60 mg subcu twice daily as well as oral amoxicillin. It is of note that however approximately 3 weeks ago while still on her Coumadin she had an episode of bright red rectal bleeding. Because of some esophageal dysphasia on December 17, 2017 Dr. Bob Stern he got an upper GI study on her. There is mild degree of tertiary contractions of the mid and distal esophagus but no focus of obstruction. She reminds me that I have assisted her with bilateral inguinal hernia repairs and ventral hernia repair. It was subsequent to that that she developed a DVT with pulmonary embolus. A inferior vena cava filter was placed. There was some distal migration and tilting. She claims that she has a known rectocele. She will intermittently feel like she is not completely evacuated. 3 weeks ago as noted she had that episode of bright red rectal bleeding but she has not had any since. June 10, 2015 Dr. Nicholas Cast did an upper endoscopy. Normal esophagus. Erythematous mucosa of the antrum. On March 05, 2014 is her most recent colonoscopy. There were two 5 mm polyps in the ascending colon. These were felt to be tubular adenoma. There was a 5 mm polyp 20 cm proximal to the anus which was hyperplastic. She complains of a chronic low abdominal pain. She is previously had complaints of left groin pain which was evaluated with no evidence of recurrent hernia. Her most recent CT scan at the [facility] was May 20, 2017. There is evidence of penetration of the filter struts through the IVC but no additional problem. She has evidence of left hip implant causing scattering of her images. She has evidence of an abdominal wall hernia repair with no recurrent hernia. Diverticulosis without diverticulitis was identified. At that time there were no acute surgical problems HPI HPI HPI: KEYONNA VILLAGOMEZ, is a 77 F who presents to the office today for ROS General General: No weight change, appetite, fatigue, colon cancer, breast cancer or weakness HEENT HEENT: No difficulty swallowing, eye injury, eye surgery, swollen glands or hoarseness Endo Endocrine: Yes thyroid disease; no diabetes mellitus, thyroid cancer, Hair loss, heat intolerance or cold intolerance Skin Skin: No rash or changing moles Breast Breast: No left breast lump, right breast lump, nipple discharge, breast pain, abnormal mammogram, abnormal US or breast enlargement Musc Musculoskeletal: Yes back problems and arthritis; no rheumatoid arthritis, gout or joint pain Cardio Cardiovascular: Yes murmur; no pacemaker, heart disease, atrial fibrillation, high blood pressure, heart attack, heart stent, palpitations, shortness of breat with exertion or chest pain Psych Psychiatric: No depression, anxiety or hearing voices Resp Respiratory: Yes shortness of breath, No sleep apnea, No cough, No COPD, No asthma, No emphysema, No wheezing Gastro Gastrointestinal: Yes abdominal pain, No nausea or vomiting, No diarrhea, No constipation, Yes blood in stool, Yes acid reflux, Yes hemorrhoids, No ulcers, No gallbladder problem, No black,tarry stools Roddy Hematologic: Yes blood thinners, Yes blood disorders, Yes bleeding, No anemia, Yes blood clots Neuro Neurologic: Yes numbness, Yes tingling, No weakness Exam Const General: cooperative, no acute distress Nutritional Appearance: overweight Orientation: alert, awake [facility] Head: normal to inspection Chest Chest palpation & inspection: normal inspection of the chest Breast Palpation: No nipple discharge Resp Effort & Inspection: normal respiratory effort Auscultation: clear to auscultation bilaterally Cardio Rate: regular rate Rhythm: regular rhythm Heart Sounds: murmur GI Palpation: soft Auscultation: normal bowel sounds Other: Mild diffuse tenderness to palpation. No hepatosplenomegaly. No mass. No rebound. No guarding. Normal bowel sounds. No evidence of hernia Neuro General: alert, awake Extrem General: calf tenderness Other: Left medial thigh mildly erythematous with palpable cord Proximal left calf palpable cord Psych Affect: normal affect Assessment & Plan Problems 1. Thrombophlebitis of superficial veins of left lower extremity I80.02 2. Rectal bleeding K62.5 Plan Episode of rectal bleeding. At that point the patient was on her routine Coumadin. Most likely related to hemorrhoids but she does have a personal history of colon polyps with her previous colonoscopy March 05, 2014. The patient has had an additional 2 months or so of treatment for her super ficial thrombophlebitis. She is still not been converted back to her Coumadin she is still on Lovenox 60 mg twice a day. She has been a full 24 hours off of that medication. She notes some minimal intermittent rectal bleeding. Otherwise she states that her health is good. I have repeated her clinical exam which appears to be unchanged. We proceed with a colonoscopy with possible biopsy or polypectomy is indicated. I appreciate the ongoing opportunity of assisting with her surgical care CC: Dr. Mcrae and Dr Solange Frazier M.D., F.A.C.S. Coding Level of Care Code 73867 Diagnoses Thrombophlebitis of superficial veins of left lower extremity I80.02 Rectal bleeding K62.5 I have re-examined the patient. There are no clinical changes since date of exam.
[2018-12-10 08:55] VITALS: BP 84/50; BP 85/53; PULSE 96; RESP 18; TEMP 36.5; O2SAT 97
--- NOTE | 2018-12-10 08:56 | OP.ENDO_ITS ---
12/10/2018 Radha Mcrae [address] [id number] Re : Colonoscopy procedure for Yris Julio Dear Dr. Mcrae This procedure was performed on Monday, December 10, 2018. My impressions and recommendations are as follows: Impressions : - Preparation of the colon was fair. - Non-thrombosed external hemorrhoids, non-thrombosed internal hemorrhoids and internal hemorrhoids that prolapse with straining, but require manual replacement into the anal canal (Grade III) found on digital rectal exam. Internal hemorrhoids likely source of rectal bleeding - Diverticulosis in the entire examined colon. - The examination was otherwise normal. - No specimens collected. Recommendations : - Discharge patient to home. - Resume previous diet. - Continue present medications. - Repeat colonoscopy in 5 years for surveillance. - Return to my office at appointment to be scheduled at patient desire to consider treatment of bleeding hemorrhoids--consider possible stapled hemorrhoidopexy.. My findings are described in the full procedure note, which is enclosed. If I can be of further assistance, please feel free to contact me at Doctor phone number(s): Work: . Sincerely, Daquan Frazier MD 12/10/2018 8:55:51 AM This report has been signed electronically.
[2018-12-10 09:00] VITALS: BP 85/53; BP 90/52; PULSE 90; RESP 18; O2SAT 94
[2018-12-10 09:05] VITALS: BP 85/53; BP 97/66; PULSE 81; RESP 18; O2SAT 93
[2018-12-10 09:09] VITALS: BP 108/58; BP 85/53; PULSE 67; RESP 18; TEMP 36.2; O2SAT 94
[2018-12-10 09:36] VITALS: BP 85/53
== END 2018-12-10 09:42 | disposition home or self-care (01) ==
LOC: EN 06:46 → AC 06:47
PROVIDERS: Family Provider Internal Medicine; PCP Internal Medicine; Referring Provider Internal Medicine; Visit Provider Surgery
PROC: 0DJD8ZZ Inspection of Lower Intestinal Tract, Via Natural or Artificial Opening Endoscopic (ICD-10-PCS; CPT 45378; principal; 2018-12-10 08:10)
DX: K64.2 Third degree hemorrhoids (principal); K64.4 Residual hemorrhoidal skin tags; K62.5 Hemorrhage of anus and rectum; K57.30 Diverticulosis of large intestine without perforation or abscess without bleeding; K21.9 Gastro-esophageal reflux disease without esophagitis; D64.9 Anemia, unspecified; E78.5 Hyperlipidemia, unspecified; D68.8 Other specified coagulation defects; E03.9 Hypothyroidism, unspecified; I11.9 Hypertensive heart disease without heart failure; E66.3 Overweight; Z68.24 Body mass index [BMI] 24.0-24.9, adult; I80.02 Phlebitis and thrombophlebitis of superficial vessels of left lower extremity; Z86.010 Personal history of colon polyps; Z86.718 Personal history of other venous thrombosis and embolism; Z86.711 Personal history of pulmonary embolism; Z79.01 Long term (current) use of anticoagulants; Z79.899 Other long term (current) drug therapy; Z80.0 Family history of malignant neoplasm of digestive organs
CPT/HCPCS: 45378; J7120; J2405

== ENCOUNTER → 2019-03-03 10:00 | Outpatient (CLI) | payer MEDICARE, OTHER, SELFPAY ==
[2019-01-06 14:46] VITALS: BMI 24.7
[2019-03-03 10:04] VITALS: BP 137/88; PULSE 76; RESP 16; TEMP 36.7; O2SAT 95; BMI 24.3
--- NOTE | 2019-03-03 10:22 | SDCEKG_ITS ---
Test Reason : Blood Pressure : / mmHG Vent. Rate : 069 BPM Atrial Rate : 069 BPM P-R Int : 202 ms QRS Dur : 088 ms QT Int : 402 ms P-R-T Axes : 046 -47 063 degrees QTc Int : 430 ms Normal sinus rhythm Left axis deviation Inferior infarct , age undetermined Anteroseptal infarct , age undetermined Abnormal ECG Confirmed by ELIZA COYLE, LUCY ([id number]), assistant editor NETO SEE ([id number]) on 03/09/2019 10:05:57 AM Referred By: Berry Robbins Confirmed By:ANGELLA KAY MD
[2019-03-03 12:40] LABS: Absolute Lymphocyte Count 1.43 X10^3/uL (0.83-4.51); Absolute Neutrophil Count 4.7 X10^3/uL (2.0-7.7); Basophil# 0.03 X10^3/uL; Basophil% 0.4 % (0-1); Eosinophil# 0.13 X10^3/uL; Eosinophils% 1.8 % (0-5); Hematocrit 47.4 % (37-47); Hemoglobin 15.1 g/dL (12.0-15.0); Lymphocyte # 1.43 X10^3/ul (4.0); Lymphocyte % 20.3 % (19-41); Mean Corp Hgb Conc 31.9 g/dL (32-36); Mean Corpuscular Hgb 28.7 pg (27.0-32.0); Mean Corpuscular Volume 90.1 fL (81-99); Mean Platelet Vol. 9.7 fl (6.2-12.0); Monocyte# 0.72 X10^3/uL; Monocyte% 10.2 % (0-10); NRBC Flagged by Analyzer 0 % (0-5); Neutrophil # 4.73 X10^3/uL (2.7-7.7); Platelet Count 253 K/mm3 (150-450); RBC Distribution Width CV 12.5 % (11.6-14.6); RBC Distribution Width SD 41.1 fl (35.1-43.9); Red Blood Count 5.26 M/mm3 (4.2-5.4); White Blood Count 7.1 K/mm3 (4.4-11.0)
[2019-03-03 13:09] LABS: Anion Gap 8 (5-15); BUN 11 mg/dL (7-18); BUN/Creat Ratio 11.5 RATIO (10-20); Chloride 105 mmol/L (98-107); Creatinine, Serum 0.95 mg/dL (0.55-1.02); EST Glomerular Filtration Rate 60 mL/min (>60); Est Glom Filt Rate - Afr Amer 73 mL/min (>60); Estimated Creatinine Clearance 43.92 ml/min; Glucose 79 mg/dL (74-106); Sodium Level 140 mmol/L (136-145); Thyroid Stim Hormone (TSH) 2.56 uIU/mL (0.358-3.74)
== END ==
PROVIDERS: Family Provider Internal Medicine; PCP Internal Medicine; Referring Provider Orthopaedic Surgery; Visit Provider Orthopaedic Surgery
DX: Z01.812 Encounter for preprocedural laboratory examination (principal); Z01.810 Encounter for preprocedural cardiovascular examination; R94.31 Abnormal electrocardiogram [ECG] [EKG]
CPT/HCPCS: 80048; 84443; 85025; 87081; 93005

== ENCOUNTER 2019-05-08 07:41 | Inpatient (IN) | payer MEDICARE, OTHER, SELFPAY ==
[2019-03-03 10:04] VITALS: BMI 24.3
[2019-05-08 07:42] VITALS: BP 141/78; PULSE 98; RESP 16; TEMP 36.8; O2SAT 100; BMI 23.6
[2019-05-08] MEDS: Ondansetron 4 MG/2 ML Vial IV ×2 (08:10→14:48)
[2019-05-08] MEDS: 0.9% Normal Saline 1,000 ML 1000 ML IV (08:10)
[2019-05-08 08:12] LABS: Absolute Lymphocyte Count 1.35 X10^3/uL (0.83-4.51); Absolute Neutrophil Count 9.7 X10^3/uL (2.0-7.7); Basophil# 0.01 X10^3/uL; Basophil% 0.1 % (0-1); Hematocrit 26.6 % (37-47); Lymphocyte # 1.35 X10^3/ul (4.0); Lymphocyte % 11.4 % (19-41); Mean Corp Hgb Conc 33.8 g/dL (32-36); Mean Corpuscular Hgb 29.3 pg (27.0-32.0); Mean Corpuscular Volume 86.6 fL (81-99); Mean Platelet Vol. 10.1 fl (6.2-12.0); Monocyte# 0.78 X10^3/uL; Monocyte% 6.6 % (0-10); NRBC Flagged by Analyzer 0 % (0-5); Neutrophil # 9.67 X10^3/uL (2.7-7.7); Neutrophil % 81.2 % (47-70); Platelet Count 248 K/mm3 (150-450); RBC Distribution Width CV 12.5 % (11.6-14.6); RBC Distribution Width SD 39.7 fl (35.1-43.9); Red Blood Count 3.07 M/mm3 (4.2-5.4); White Blood Count 11.9 K/mm3 (4.4-11.0)
--- NOTE | 2019-05-08 08:13 | RAD_ITS ---
STUDY: X-RAY - ABDOMEN/PELVIS REASON FOR EXAM: Female, 78 years old. NAUSEA, VOMITING; -- HIP SURGERY 3 DAYS AGO TECHNIQUE: Two AP supine views of the abdomen and pelvis. COMPARISON: None. FINDINGS: Normal visualized lung bases. There is a moderate amount of colonic fecal material. The visualized liver, spleen and kidneys are grossly normal in size and morphology. A filter is seen within the inferior vena cava. There are diffuse degenerative changes of the visualized lumbar spine. The patient is status post bilateral hip replacement. Degenerative changes of the symphysis pubis. RAD/Abdomen Single View IMPRESSION: Moderate amount of fecal material is seen in the colon. Electronically Signed: Paulo Anne, at 8:51 EST , Service support ,
--- NOTE | 2019-05-08 08:26 | RAD_ITS ---
STUDY: X-RAY CHEST REASON FOR EXAM: Female, 78 years old. NAUSEA, VOMITING; -- HIP SURGERY 3 DAYS AGO TECHNIQUE: Single AP portable view of the chest. COMPARISON: Comparison is made with prior chest radiograph dated November 04, 2018. FINDINGS: Stable mild elevation of the right hemidiaphragm. The lungs are clear and expanded. There is no demonstrated pleural abnormality. There is borderline cardiomegaly. Normal mediastinum and ricci. Normal visualized pulmonary arteries. There is atherosclerotic tortuosity of the aortic arch and descending thoracic aorta. Normal visualized thoracic spine. Evidence of prior surgery in the lower cervical spine. There is no demonstrated abnormality of the visualized soft tissue structures of the upper abdomen. RAD/Chest 1 View IMPRESSION: Borderline cardiomegaly. No acute abnormality is seen. Electronically Signed: Paulo Anne, at 8:49 EST , Service support ,
[2019-05-08 08:32] LABS: Anion Gap 8 (5-15); BUN 22 mg/dL (7-18); BUN/Creat Ratio 22.3 RATIO (10-20); Calcium,Total 8.5 mg/dL (8.5-10.1); Chloride 106 mmol/L (98-107); Creatinine, Serum 0.98 mg/dL (0.55-1.02); EST Glomerular Filtration Rate 58 mL/min (>60); Est Glom Filt Rate - Afr Amer 70 mL/min (>60); Estimated Creatinine Clearance 42.57 ml/min; Glucose 128 mg/dL (74-106); Potassium 4.5 mmol/L (3.5-5.1); Sodium Level 135 mmol/L (136-145)
[2019-05-08] MEDS: Fleet Enema 1 ML RECTAL (08:36)
[2019-05-08 08:52] VITALS: BP 141/78; PULSE 98; RESP 16; TEMP 36.8; O2SAT 100
--- NOTE | 2019-05-08 09:01 | ED.DCSUM_ITS ---
History of Present Illness Chief Complaint: Nausea/Vomiting Narrative: Patient presenting for evaluation secondary to nausea vomiting. Patient had a right total hip arthroplasty performed at the [facility] on Sunday. She reports that she was discharged yesterday, today she started to develop significant nausea and vomiting. She states associated with some crampy abdominal pain. Mostly it is dry heaves. She does report that she feels constipated and potentially impacted. She reports she has not had a bowel movement since Sunday. She denies any fevers. She does state that she has hip pain in her right hip, but this is unchanged from surgery. She denies that she is having any other associated symptoms. Review of systems otherwise negative. Past Medical History - Allergies and Home Meds Allergies/Adverse Reactions: Allergies Iodinated Contrast Media [Iodinated Contrast- Oral and IV Dye] Allergy (Severe, Verified 05/08/19 07:45) Hives iodine Allergy (Verified 05/08/19 07:45) Anaphylaxis Primary Care Physician: Radha Mcrae MD [Primary Care Provider] - Past Medical History: - - Hypertension, hyperlipidemia, history of bleeding dyscrasia Surgical History: herniorrhaphy Smoking Status: Never smoker - Family History Paternal Family History: Family History (Last Reviewed 01/06/19 @ 14:46 by Alison Martínez) Mother Colon cancer Brother Myeloma Father Heart disease Family History: Reports: Heart Disease Review of Systems All systems negative except as indicated General: Denies: Chills, Fever, Sweats Eyes: Denies: Visual changes - bilaterally, Diplopia ENT: Denies: Rhinorrhea, Sore throat Cardiovascular: Denies: Chest pain, Palpitations Respiratory: Denies: Dyspnea, Cough, Dyspnea on exertion Gastrointestinal: Reports: Abdominal pain, Nausea, Vomiting, Constipation Genitourinary: Denies: Dysuria, Hematuria, Frequency Musculoskeletal: Denies: Back pain, Extremity Pain Skin: Denies: Rash, Wounds Neurological: Denies: Headache, Weakness, Numbness Physical Exam Vital Signs/Narrative: Vital Signs Temp Pulse Resp BP Pulse Ox 05/08/19 08:52 98.2 F 98 16 141/78 H 100 05/08/19 07:42 98.2 F 98 16 141/78 H 100 Inital Vital Signs reviewed: Yes General: Well nourished, Well developed, No Acute Distress Head: Normocephalic, Atraumatic Eyes: Perrl, EOMI ENT: Moist mucous membranes, No rhinorrhea Neck: Supple, Nontender Cardiovascular: Regular rate, Regular rhythm, No murmurs Respiratory: No distress, CTA bilaterally, Chest nontender Abdomen: Soft, Tender - Minimal suprapubic no guarding or rebound Back: Nontender, Normal Inspection Extremities: - - Incision clean dry and intact. No evidence of surrounding erythema. Normal distal pulses. Skin: Normal color, No rash Neurological: Alert, Oriented x3, Cranial nerves II-XII grossly intact, Normal Strength, Normal Sensation Psychological: Normal affect, Normal Mood Diagnostic/Tx/Re-eval - Medical Decision Making Patient presented secondary to nausea and vomiting in the recent setting of having surgery. She had a benign abdomen, an x-ray was obtained which shows mainly constipation and possible ileus. Chest x-ray per radiology review was unremarkable. Lab work is also unremarkable. Patient had modest improvement with Zofran and fluids, was able to keep down magnesium citrate and had a bowel movement, but is continuing to have nausea. She was given Reglan. Patient at this point is still having some difficulty with keeping down p.o., and potentially has postoperative ileus or constipation. I believe she requires observation for hydration. Patient will be admitted under the hospitalist. ED Disposition - Plan for ED Patient: Disposition: Acute Care Hospital [facility] Diagnosis: Ileus, unspecified
[2019-05-08] MEDS: diazePAM 5 MG Tablet 2.5 MG PO (09:44)
[2019-05-08] MEDS: Metoclopramide 10 MG/2 ML Vial IV (09:44)
[2019-05-08] MEDS: Magnesium Citrate 300 ML PO (09:46)
[2019-05-08 10:41] VITALS: RESP 18
[2019-05-08 12:19] VITALS: PULSE 107; BMI 24.7; BMI 24.8
[2019-05-08 12:20] VITALS: BP 116/49; PULSE 103; RESP 18; TEMP 36.6; O2SAT 98
--- NOTE | 2019-05-08 12:51 | PCM.HP.STD ---
Problem List (1) Constipation Status: Acute Qualifiers: Constipation type: unspecified constipation type Qualified Code(s): K59.00 - Constipation, unspecified (2) Nausea & vomiting Status: Acute Qualifiers: Vomiting type: unspecified Vomiting Intractability: unspecified Qualified Code(s): R11.2 - Nausea with vomiting, unspecified (3) Personal history of colonic polyps Status: Chronic (4) Thrombophlebitis of superficial veins of left lower extremity Status: Acute (5) Cellulitis of left lower extremity Status: Acute (6) History of left heart catheterization Status: Chronic Comment: [facility]: normal coronaries (7) History of pulmonary embolus (PE) Status: Chronic Comment: after hernia surgery (8) Palpitations Status: Acute (9) Hyperlipidemia Status: Chronic (10) Hx of bladder repair surgery Status: Chronic (11) Hx of arthroscopic knee surgery Status: Chronic Comment: Right knee (12) History of left hip replacement Status: Chronic (13) Hx of partial thyroidectomy Status: Chronic (14) Hx of umbilical hernia repair Status: Chronic (15) Hx of bilateral inguinal hernia repair Status: Chronic Comment: 1979 &2009 (16) hx of APLL Status: Chronic Comment: bilaterally (17) Hx of hysterectomy Status: Chronic (18) Acid reflux Status: Chronic Qualifiers: Esophagitis presence: esophagitis presence not specified Qualified Code(s): K21.9 - Gastro-esophageal reflux disease without esophagitis (19) Constipation Status: Acute (20) Abdominal pain Status: Acute (21) Heart murmur Status: Acute (22) Arthritis Status: Acute (23) Back problem Status: Chronic (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 The patient is a 78 year old F who just underwent a right hip replacement surgery on the third at [facility]. Patient was discharged yesterday to home. Patient states that she did not have a bowel movement while she was in the hospital nor did she have it when she was at home. Is present to the emergency room. Patient abdominal x-ray that showed constipation. In the emergency room, he received Valium, mag citrate, Reglan, Zofran, fleets enema. Patient did have a small bowel movement. Patient still with nausea and so patient was being brought under observation status to the hospital to further assist in regards to nausea management as well as the constipation which apparently patient has not been completely evacuated. [] Past Medical History Past Medical History (Chronic Problems): Chronic Problems (Last Reviewed 05/08/19 @ 12:54 by Zohaib Castaneda DO) Personal history of colonic polyps (Chronic) History of left heart catheterization (Chronic 1991) [facility]: normal coronaries History of pulmonary embolus (PE) (Chronic ~2009) after hernia surgery Hyperlipidemia (Chronic) Hx of bladder repair surgery (Chronic) Hx of arthroscopic knee surgery (Chronic) Right knee History of left hip replacement (Chronic) Hx of partial thyroidectomy (Chronic) Hx of umbilical hernia repair (Chronic ~2009) Hx of bilateral inguinal hernia repair (Chronic) 1979 &2009 hx of APLL (Chronic) bilaterally Hx of hysterectomy (Chronic) Acid reflux (Chronic) Back problem (Chronic) Hypofibrinogenemia (Chronic) Hypothyroidism (Chronic) Hypertension (Chronic) History of venous thrombosis and embolism (Chronic) Hemorrhoids (Chronic) Gastrointestinal hemorrhage (Chronic) LVH (left ventricular 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 (Chronic) Diverticulitis of sigmoid colon (Chronic) Medical History: Medical History (Last Reviewed 05/08/19 @ 12:54 by Zohaib Castaneda DO) Rectal bleeding (Acute) K62.5 Thrombophlebitis of superficial veins of left lower extremity (Acute) I80.02 Cellulitis of left lower extremity (Acute) L03.116 History of pulmonary embolus (PE) (Chronic) Onset Date: ~2009 Z86.711 after hernia surgery Generalized weakness (Acute) R53.1 Palpitations (Acute) R00.2 Hyperlipidemia (Chronic) E78.5 Neuralgia of groin (Acute) M79.2 hx of APLL (Acute) bilaterally Acid reflux (Acute) K21.9 Blood in stool (Acute) K92.1 Constipation (Acute) K59.00 Abdominal pain (Acute) R10.9 Shortness of breath (Acute) R06.02 Heart murmur (Acute) R01.1 Arthritis (Acute) M19.90 Back problem (Acute) M53.9 Chest pain (Acute) R07.9 Hypofibrinogenemia (Chronic) D68.8 Hypothyroidism (Chronic) E03.9 Hypertension (Chronic) I10 History of venous thrombosis and embolism (Chronic) Z86.718 Hemorrhoids (Chronic) K64.9 Gastrointestinal hemorrhage (Chronic) K92.2 LVH (left ventricular 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 (Chronic) I11.9 Diverticulitis of sigmoid colon (Chronic) K57.32 Allergies Iodinated Contrast Media [Iodinated Contrast- Oral and IV Dye] Allergy (Severe, Verified 05/08/19 07:45) Hives iodine Allergy (Verified 05/08/19 07:45) Anaphylaxis Home Medications: Ambulatory Orders Medication Instructions Recorded Losartan Potassium [Cozaar] 100 mg PO DAILY 10/17/14 traMADol [Ultram (G)] 50 mg PO Q6H PRN PRN 05/20/17 levothyroxine 88 mcg tablet 88 mcg PO DAILY tab 05/27/18 amlodipine 5 mg tablet 5 mg PO DAILY 09/25/18 enoxaparin 60 mg/0.6 mL 60 mg SC Q12H 09/25/18 subcutaneous syringe Acetaminophen [Tylenol Extra 500 - 1,000 mg PO Q6H PRN PRN 03/03/19 Strength] Chlorpheniramine Maleate 4 mg PO PRN PRN 05/08/19 Docusate Sodium [Dok] 100 mg PO BID 05/08/19 Ondansetron [Ondansetron Odt] 4 mg PO PRN PRN 05/08/19 Surgical History: Surgical History (Last Updated 05/08/19 @ 12:54 by Zohaib Castaneda DO) History of left heart catheterization (Chronic) Onset Date: 1991 Z [facility]: normal coronaries Hx of bladder repair surgery (Chronic) Z98.890 Hx of arthroscopic knee surgery (Chronic) Z98.890 Right knee History of left hip replacement (Chronic) Z96.642 Hx of partial thyroidectomy (Chronic) Z98.890 Hx of umbilical hernia repair (Chronic) Onset Date: ~2009 Z98.890, Z87.19 Hx of bilateral inguinal hernia repair (Chronic) Z98.890, Z87.19 1980 &2010 Hx of hysterectomy (Chronic) Z90.710 History of right hip replacement Z96.641 Surgical History: herniorrhaphy Smoking Status: Never smoker - *Family History Paternal Family History: Family History (Last Reviewed 05/08/19 @ 12:54 by Zohaib Castaneda DO) Mother Colon cancer Brother Myeloma Father Heart disease History Items: Heart Disease Review of Systems Constitutional: Reports: Chills. Denies: Anorexia, Fever Eyes: Denies: Blurred vision, Double vision HEENT: Denies: Head Aches, Sinus Congestion, Sinus Drainage Cardiovascular: Denies: Chest Pain, Palpitations Respiratory: Denies: Cough, Shortness of breath at rest, Sputum production Gastrointestinal: Reports: Constipation, Nausea, Vomiting. Denies: Abdominal Pain Genitourinary: Denies: Dysuria Musculoskeletal: Denies: Joint Pain, Joint Tenderness Skin: Denies: Rash, Wounds Neurological: Denies: Numbness, Tingling, Focal weakness Psychiatric: Denies: Anxiety, Depression Hematologic/ Lymphatic: Reports: Hx of blood clot - All review systems are otherwise negative except for as mentioned above and in the HPI.. Denies: Easy Bruising, Easy Bleeding VTE Information - Inpt Only VTE Present on Admission: No VTE Mechan Device Prophylaxis: None VTE Pharm Prophylaxis ordered?: No Reason prophylaxis not ordered:: Procedure Not Indicated Patient Problems: Active and Suspected Problems (Last Reviewed 05/08/19 @ 12:54 by Zohaib Castaneda DO) Constipation (Acute) Nausea & vomiting (Acute) - Physical Exam Vitals/I&O's: Vital Signs Temp Pulse Resp BP Pulse Ox 36.8 C 107 H 18 141/78 H 100 05/08/19 08:52 05/08/19 12:19 05/08/19 10:41 05/08/19 08:52 05/08/19 08:52 Oxygen Delivery Method Room Air Weight: 64.41 kg Body Mass Index (BMI) 23.6 General: Alert, Cooperative, No apparent distress HEENT: Atraumatic, Normocephalic Oral: Moist Mucosa, No Gingival or Mucosal Lesions/ Ulcerations Neck: No Nodes, Trachea Midline Lungs: Clear to auscultation, Normal air movement, No rhonchi, No wheeze, No rales Cardiovascular: Regular rate, Regular Rhythm, Normal S1, Normal S2, - - 3-6. holo-systolic Murmur at the apex. Abdomen: Bowel Sounds Present, Soft, Non Tender, Non-Distended, No Hepato-splenomegaly Extremities: No edema, No Calf Tenderness Skin: - - Patient has a reinforced dressing over the right hip. Patient has a semiopaque bandage overlying but no obvious hematoma that I can visualize. Musculoskeletal: No Tenderness to Palpation of Joints or Extremities, No Muscle Wasting Psych/Mental Status: Normal Affect, Appropriate Laboratory Results 05/08/19 08:05: WBC 11.9 H, RBC 3.07 L, Hgb 9.0 L, Hct 26.6 L, MCV 86.6, MCH 29.3, MCHC 33.8, RDW Std Deviation 39.7, RDW Coeff of Rashmi 12.5, Plt Count 248, MPV 10.1, Immature Gran % (Auto) 0.700, Neut % (Auto) 81.2 H, Lymph % (Auto) 11.4 L, [place] % (Auto) 6.6, Eos % (Auto) 0.0, Baso % (Auto) 0.1, Absolute Neuts (auto) 9.7 H, Absolute Lymphs (auto) 1.35, Nucleated RBC % 0 05/08/19 08:05: Sodium 135 L, Potassium 4.5, Chloride 106, Carbon Dioxide 21.0, Anion Gap 8, BUN 22 H, Creatinine 0.98, Estim Creat Clear Calc 42.57, Est GFR (MDRD) Af Amer 70, Est GFR (MDRD) Non-Af 58 L, BUN/Creatinine Ratio 22.3 H, Glucose 128 H, Calcium 8.5 Assessment/Plan All Active Problems (Last Reviewed 05/08/19 @ 12:54 by Zohaib Castaneda DO) Constipation (Acute) Nausea & vomiting (Acute) Thrombophlebitis of superficial veins of left lower extremity (Acute) Cellulitis of left lower extremity (Acute) Palpitations (Acute) Constipation (Acute) Abdominal pain (Acute) Heart murmur (Acute) Arthritis (Acute) 1. constipation Patient did not have vomiting for several days prior to presentation. Patient did have some benefit with enema as well as magnesium citrate. Will continue with another dose of magnesium citrate on the floor and observe. Likely complicated by the patient's recent surgery as well as limited mobility as well as likely receiving narcotics during the hospitalization. 2. Nausea and vomiting Suspect secondary to the constipation supportive management 3. Hypofibrinogenemia On weight-based enoxaparin Follow-up with Dr. Narvaez as outpatient 4. VTE prophylaxis: Not indicated as patient is already anticoagulated 5. Advanced care planning: Patient wishes to be full CODE STATUS. Code Visit OBSV E&M: 77223 Initial observation care L2
[2019-05-08] MEDS: traMADol 50 MG Tablet PO (14:14)
[2019-05-08] MEDS: Magnesium Citrate 300 ML 150 ML PO (14:14)
[2019-05-08] MEDS: 0.9% Saline Lock 10 ML Syringe IV (14:48)
[2019-05-08] MEDS: Pantoprazole Sodium 40 MG Tablet PO (17:07)
[2019-05-08 21:00] VITALS: BP 99/47; PULSE 97; RESP 16; TEMP 36.7; O2SAT 95
[2019-05-08] MEDS: Enoxaparin 60 MG/0.6 ML Syringe SC (21:16)
[2019-05-08] MEDS: Docusate Sodium 100 MG Capsule PO (21:16)
[2019-05-09] VITALS (8 sets, daily range): BP systolic 93–109; BP diastolic 48–64; PULSE 60–101; RESP 16–18; TEMP 36.4–37.2; O2SAT 94–99
[2019-05-09] MEDS: Levothyroxine 88 MCG Tablet PO (05:42)
[2019-05-09] MEDS: 0.9% Saline Lock 10 ML Syringe IV ×2 (05:49→15:22)
[2019-05-09 06:25] LABS: Absolute Lymphocyte Count 1.54 X10^3/uL (0.83-4.51); Absolute Neutrophil Count 4.9 X10^3/uL (2.0-7.7); Eosinophil# 0.03 X10^3/uL; Eosinophils% 0.4 % (0-5); Lymphocyte # 1.54 X10^3/ul (4.0); Lymphocyte % 21.3 % (19-41); Mean Corp Hgb Conc 33.3 g/dL (32-36); Mean Corpuscular Hgb 29.8 pg (27.0-32.0); Mean Corpuscular Volume 89.4 fL (81-99); Mean Platelet Vol. 9.8 fl (6.2-12.0); Monocyte# 0.73 X10^3/uL; Monocyte% 10.1 % (0-10); NRBC Flagged by Analyzer 0 % (0-5); Neutrophil # 4.86 X10^3/uL (2.7-7.7); Neutrophil % 67.2 % (47-70); Platelet Count 212 K/mm3 (150-450); RBC Distribution Width CV 12.9 % (11.6-14.6); RBC Distribution Width SD 41.8 fl (35.1-43.9); Red Blood Count 2.35 M/mm3 (4.2-5.4); White Blood Count 7.2 K/mm3 (4.4-11.0)
[2019-05-09 07:48] LABS: Absolute Lymphocyte Count 1.81 X10^3/uL (0.83-4.51); Absolute Neutrophil Count 4.9 X10^3/uL (2.0-7.7); Basophil# 0.01 X10^3/uL; Basophil% 0.1 % (0-1); Eosinophil# 0.04 X10^3/uL; Eosinophils% 0.5 % (0-5); Hematocrit 20.6 % (37-47); Hemoglobin 6.8 g/dL (12.0-15.0); Lymphocyte # 1.81 X10^3/ul (4.0); Lymphocyte % 23.7 % (19-41); Mean Corpuscular Hgb 29.8 pg (27.0-32.0); Mean Corpuscular Volume 90.4 fL (81-99); Mean Platelet Vol. 9.8 fl (6.2-12.0); Monocyte# 0.81 X10^3/uL; Monocyte% 10.6 % (0-10); NRBC Flagged by Analyzer 0 % (0-5); Neutrophil # 4.92 X10^3/uL (2.7-7.7); Neutrophil % 64.3 % (47-70); Platelet Count 216 K/mm3 (150-450); Red Blood Count 2.28 M/mm3 (4.2-5.4); White Blood Count 7.7 K/mm3 (4.4-11.0)
[2019-05-09] MEDS: traMADol 50 MG Tablet PO ×2 (08:14→17:35)
--- NOTE | 2019-05-09 09:14 | PCM.PN.HOSP ---
Patient Problems: Active and Suspected Problems (Last Reviewed 05/08/19 @ 12:54 by Zohaib Castaneda DO) Constipation (Acute) Nausea & vomiting (Acute) Reason for Visit: N/V Subjective: Nausea vomiting improved. Patient has had some hematochezia. No abdominal pain. Vitals/I&O's: Vital Signs Temp Pulse Resp BP Pulse Ox 36.4 C L 99 16 94/48 L 99 05/09/19 08:15 05/09/19 08:15 05/09/19 08:15 05/09/19 08:15 05/09/19 08:15 Oxygen Delivery Method Room Air Weight: 67.585 kg Body Mass Index (BMI) 24.7 Intake and Output for Last 24 Hours 05/07/19 05/08/19 05/09/19 23:59 23:59 23:59 Intake Total 1550 / 1850 600 / 600 Balance 1550 / 1850 600 / 600 General: Alert, No apparent distress HEENT: Atraumatic, Normocephalic Oral: Moist Mucosa, No Gingival or Mucosal Lesions/ Ulcerations Neck: No Nodes, Thyroid Normal Size and Texture Lungs: Clear to auscultation, Normal air movement, No rhonchi, No wheeze Cardiovascular: Regular rate, Regular Rhythm, Normal S1, Normal S2, No murmurs Abdomen: Bowel Sounds Present, Soft, Non Tender, Non-Distended, No Hepato-splenomegaly Extremities: No edema, No Calf Tenderness Skin: No rashes, No breakdown Musculoskeletal: No Tenderness to Palpation of Joints or Extremities, No Muscle Wasting Neurological: Neuro grossly intact, Muscle tone normal Psych/Mental Status: Normal Affect, Appropriate, Agitated, Anxious Laboratory Results 05/09/19 05:37: WBC 7.2, RBC 2.35 L, Hgb 7.0 L, Hct 21.0 L, MCV 89.4, MCH 29.8, MCHC 33.3, RDW Std Deviation 41.8, RDW Coeff of Rashmi 12.9, Plt Count 212, MPV 9.8, Immature Gran % (Auto) 1.000 H, Neut % (Auto) 67.2, Lymph % (Auto) 21.3, [place] % (Auto) 10.1 H, Eos % (Auto) 0.4, Baso % (Auto) 0.0, Absolute Neuts (auto) 4.9, Absolute Lymphs (auto) 1.54, Nucleated RBC % 0 05/09/19 07:28: WBC 7.7, RBC 2.28 L, Hgb 6.8 L, Hct 20.6 L, MCV 90.4, MCH 29.8, MCHC 33.0, RDW Std Deviation 42.0, RDW Coeff of Rashmi 13.0, Plt Count 216, MPV 9.8, Immature Gran % (Auto) 0.800, Neut % (Auto) 64.3, Lymph % (Auto) 23.7, [place] % (Auto) 10.6 H, Eos % (Auto) 0.5, Baso % (Auto) 0.1, Absolute Neuts (auto) 4.9, Absolute Lymphs (auto) 1.81, Nucleated RBC % 0 Current Medications Acetaminophen (Tylenol) 650 mg PO Q6H PRN PRN PRN Reason: Pain Score 1-10/Temp > 100.7 F Amlodipine Besylate (Norvasc) 5 mg PO DAILY [facility] Diphenhydramine HCl (Benadryl) 25 mg PO BID PRN PRN PRN Reason: ALLERGIES Docusate Sodium (Colace) 100 mg PO BID [facility] Last Admin: 05/08/19 21:16 Dose: 100 mg Documented by: Enoxaparin Sodium (Lovenox) 60 mg SC Q12 [facility] Last Admin: 05/08/19 21:16 Dose: 60 mg Documented by: Glucagon () 1 mg IM .X1 PRN PRN Reason: Hypoglycemia Dextrose (Dextrose 10%-Water) 250 mls @ 999 mls/hr IV .Q16M PRN; Protocol PRN Reason: HYPOGLYCEMIA Levothyroxine Sodium (Synthroid) 88 mcg PO DAILY@0600 [facility] Last Admin: 05/09/19 05:42 Dose: 88 mcg Documented by: Losartan Potassium (Cozaar) 100 mg PO DAILY [facility] Melatonin (Melatonin) 3 mg PO QHS PRN PRN Reason: SLEEP Ondansetron HCl (Zofran Odt) 4 mg PO Q6H PRN PRN PRN Reason: NAUSEA Ondansetron HCl (Zofran) 4 mg IV Q8H PRN PRN PRN Reason: NAUSEA/VOMITING Last Admin: 05/08/19 14:48 Dose: 4 mg Documented by: Pantoprazole Sodium (Protonix) 40 mg PO DAILY STEF Sodium Chloride () 10 - 40 ml IV UD PRN PRN Reason: SALINE FLUSH Last Admin: 05/09/19 05:49 Dose: 10 ml Documented by: Tramadol HCl (Ultram) 50 mg PO Q6H PRN PRN PRN Reason: Pain Score 1-10/10 Last Admin: 05/09/19 08:14 Dose: 50 mg Documented by: STROKE Vital Signs/Narrative: Vital Signs Temp Pulse Resp BP Pulse Ox 05/09/19 08:15 36.4 C L 99 16 94/48 L 99 Medical Necessity - Tobacco Use Smoking Status: Never smoker Assessment/Plan All Active Problems (Last Reviewed 05/08/19 @ 12:54 by Zohaib Castaneda DO) Constipation (Acute) Nausea & vomiting (Acute) Thrombophlebitis of superficial veins of left lower extremity (Acute) Cellulitis of left lower extremity (Acute) Palpitations (Acute) Constipation (Acute) Abdominal pain (Acute) Heart murmur (Acute) Arthritis (Acute) 1. Acute blood loss anemia Patient's hemoglobin was 9 and today it is 7 and 6.8. Discussed with the patient and will transfuse 1 unit packed red blood cells. Discussed the risks and benefits associated transfusion the patient agrees to proceed. Patient has had a colonoscopy back in [place] which showed diverticulosis and internal hemorrhoids. Patient had a history of GI bleed with it was felt to be due to internal hemorrhoids. This complicated by the fact that patient is on enoxaparin. His hemoglobin back in March was 15. Her what her hemoglobin was and clean clinic so we will request records from there. If patient begins to bleed more profusely and then will have to stop the enoxaparin. I will continue with enoxaparin for now given the patient's history of hypofibrinogenemia 2. constipation Resolved. Patient did not have vomiting for several days prior to presentation. Patient did have some benefit with enema as well as magnesium citrate. Will continue with another dose of magnesium citrate on the floor and observe. Likely complicated by the patient's recent surgery as well as limited mobility as well as likely receiving narcotics during the hospitalization. 3. Nausea and vomiting Resolved suspect secondary to the constipation supportive management 4. Hypofibrinogenemia On weight-based enoxaparin Follow-up with Dr. Masci as outpatient 5. VTE prophylaxis: Not indicated as patient is already anticoagulated 6. Advanced care planning: Patient wishes to be full CODE STATUS. Code Visit Inpatient E&M: 56793 Subs Hosp L3
[2019-05-09] MEDS: amLODIPine 5 MG Tablet PO (09:30)
[2019-05-09] MEDS: Pantoprazole Sodium 40 MG Tablet PO (09:30)
[2019-05-09] MEDS: Enoxaparin 60 MG/0.6 ML Syringe SC ×2 (09:30→21:07)
[2019-05-09] MEDS: Docusate Sodium 100 MG Capsule PO ×2 (09:30→21:07)
[2019-05-09] MEDS: Losartan Potassium 100 MG Tablet PO (09:30)
--- NOTE | 2019-05-09 11:33 | CASEMGMT ---
RN CM Assessment Note Presentation: Recent THR on 05/05. Now with constipation and anemia Intro role of CM and purpose of RN CM assessment. Demographics, PCP and Pharmacy verified. Pt was to have HHC start , 05.08.2019 but returned to hospital. Call to nurse Hernandez . Updated that anticipated dc is Sunday, 05.10.2019. Green sheet front of chart if pt dc'd this weekend. -Pt states she was doing well @ home with 's support. No new concerns noted. PCP: Dr. Mcrae Specialists: ortho surgeon, [facility] Preferred Pharmacy: [facility] Insurance: [facility] Prescription Benefit: yes LNOK: , [employer] Living Arrangements: One story home with 5 steps into home Transportation: able to drive DME: walker, cane, raised toilet seat, shower seat HHC: [facility] (RN PT OT) PH: FX: Patient DC goals: Home with [facility] DC PLAN: Home with [facility]. RN CM let pt know to contact cm if any dc concerns arise. Updated that HHC will be resumed on discharge. Abbey KINGN RN ACM
[2019-05-09 17:39] LABS: Absolute Lymphocyte Count 2.56 X10^3/uL (0.83-4.51); Absolute Neutrophil Count 4.9 X10^3/uL (2.0-7.7); Basophil# 0.01 X10^3/uL; Basophil% 0.1 % (0-1); Eosinophils% 1.2 % (0-5); Hematocrit 26.1 % (37-47); Hemoglobin 8.5 g/dL (12.0-15.0); Lymphocyte # 2.56 X10^3/ul (4.0); Lymphocyte % 30.7 % (19-41); Mean Corp Hgb Conc 32.6 g/dL (32-36); Mean Corpuscular Hgb 29.6 pg (27.0-32.0); Mean Corpuscular Volume 90.9 fL (81-99); Mean Platelet Vol. 9.7 fl (6.2-12.0); Monocyte% 8.4 % (0-10); NRBC Flagged by Analyzer 0 % (0-5); Neutrophil # 4.87 X10^3/uL (2.7-7.7); Neutrophil % 58.3 % (47-70); Platelet Count 222 K/mm3 (150-450); RBC Distribution Width CV 13.2 % (11.6-14.6); RBC Distribution Width SD 43.5 fl (35.1-43.9); Red Blood Count 2.87 M/mm3 (4.2-5.4); White Blood Count 8.4 K/mm3 (4.4-11.0)
[2019-05-09] MEDS: Acetaminophen 325 MG Tablet 650 MG PO (21:07)
[2019-05-09] MEDS: MELATONIN 3 MG TABLET PO (21:12)
[2019-05-10 03:00] VITALS: BP 100/44; PULSE 79; RESP 16; TEMP 36.6; O2SAT 96
[2019-05-10] MEDS: Levothyroxine 88 MCG Tablet PO (05:31)
[2019-05-10] MEDS: Acetaminophen 325 MG Tablet 650 MG PO ×2 (06:44→12:44)
[2019-05-10 07:05] LABS: Absolute Lymphocyte Count 2.02 X10^3/uL (0.83-4.51); Absolute Neutrophil Count 3.1 X10^3/uL (2.0-7.7); Basophil# 0.02 X10^3/uL; Basophil% 0.3 % (0-1); Eosinophil# 0.23 X10^3/uL; Eosinophils% 3.7 % (0-5); Hematocrit 26.3 % (37-47); Hemoglobin 8.7 g/dL (12.0-15.0); Lymphocyte # 2.02 X10^3/ul (4.0); Lymphocyte % 32.8 % (19-41); Mean Corp Hgb Conc 33.1 g/dL (32-36); Mean Corpuscular Volume 90.7 fL (81-99); Mean Platelet Vol. 9.6 fl (6.2-12.0); Monocyte# 0.56 X10^3/uL; Monocyte% 9.1 % (0-10); NRBC Flagged by Analyzer 0.5 % (0-5); Neutrophil # 3.08 X10^3/uL (2.7-7.7); Neutrophil % 50.2 % (47-70); Platelet Count 229 K/mm3 (150-450); RBC Distribution Width SD 42.6 fl (35.1-43.9); White Blood Count 6.2 K/mm3 (4.4-11.0)
[2019-05-10 07:25] LABS: Anion Gap 5 (5-15); BUN 18 mg/dL (7-18); BUN/Creat Ratio 21.2 RATIO (10-20); Calcium,Total 7.9 mg/dL (8.5-10.1); Chloride 107 mmol/L (98-107); Creatinine, Serum 0.85 mg/dL (0.55-1.02); EST Glomerular Filtration Rate 69 mL/min (>60); Est Glom Filt Rate - Afr Amer 83 mL/min (>60); Estimated Creatinine Clearance 49.08 ml/min; Glucose 98 mg/dL (74-106); Potassium 4.1 mmol/L (3.5-5.1); Sodium Level 137 mmol/L (136-145)
--- NOTE | 2019-05-10 08:53 | DCINST_ITS ---
- Discharge Diagnoses Current Active Problems: Current Active and Chronic Problems (Last Reviewed 05/08/19 @ 12:54 by Zohaib Castaneda DO) Constipation (Acute) Nausea & vomiting (Acute) You will use the following diet at home:: No restrictions Your food should be the consistency of: Regular Call your doctor if you observe: - - rectal bleeding. lightheadedness. intractable nausea and vomiting. Allergies/Adverse Reactions: Allergies Iodinated Contrast Media [Iodinated Contrast- Oral and IV Dye] Allergy (Severe, Verified 05/08/19 07:45) Hives iodine Allergy (Verified 05/08/19 07:45) Anaphylaxis Medications to take at Discharge Losartan Potassium [Cozaar] 100 mg PO DAILY 10/17/14 traMADol [Ultram] 50 mg PO Q6H PRN PRN 05/20/17 levothyroxine 88 mcg tablet 88 mcg PO DAILY tab 05/27/18 amlodipine 5 mg tablet 5 mg PO DAILY 09/25/18 enoxaparin 60 mg/0.6 mL subcutaneous syringe 60 mg SC Q12H 09/25/18 Acetaminophen [Tylenol] 500 - 1,000 mg PO Q6H PRN PRN 03/03/19 Chlorpheniramine Maleate 4 mg PO PRN PRN 05/08/19 Docusate Sodium [Dok] 100 mg PO BID 05/08/19 Ondansetron [Ondansetron Odt] 4 mg PO PRN PRN 05/08/19 Bisacodyl [Dulcolax] 5 mg PO DAILY PRN #30 tab 05/10/19 Polyethylene Glycol 3350 [Miralax] 17 gm PO DAILY #30 packet 05/10/19 The following prescriptions were given: Bisacodyl [Dulcolax] 5 mg PO DAILY PRN #30 tab PRN Reason: Constipation Polyethylene Glycol 3350 [Miralax] 17 gm PO DAILY #30 packet Orders to be completed after discharge: CBC-Complete Blood Cnt No Diff Time Frame: 1 Week, Facility: [facility], Location: Laboratory Primary Care Physician: Radha Mcrae MD [Primary Care Provider] - Within 1 Week Test Results: Test results from this visit will be discussed in further detail at your follow- up appointment, if applicable. Please Follow Up With: Omer Narvaez DO When: next scheduled appt. Proposed Discharge Date: 05/10/19
--- NOTE | 2019-05-10 08:54 | DS.PCM_ITS ---
Discharge Date and Diagnosis - Problem List Patient Problems: Active and Suspected Problems (Last Reviewed 05/08/19 @ 12:54 by Zohaib Castaneda DO) Constipation (Acute) Nausea & vomiting (Acute) Date of Admission: 05/08/19 Date of Discharge: 05/10/19 - Primary Discharge Diagnosis Active and Suspected Problems (Last Reviewed 05/08/19 @ 12:54 by Zohaib Castaneda DO) 1. Acute blood loss anemia * Patient's hemoglobin was 9, went down to 6.8, now back up to 8.7 after 1 unit of PRBCs. Stable x 2. * Patient has had a colonoscopy back in Left Hand which showed diverticulosis and internal hemorrhoids. Patient had a history of GI bleed with it was felt to be due to internal hemorrhoids. * This complicated by the fact that patient is on enoxaparin. * His hemoglobin back in March was 15. * Reviewed records from [facility], her Hg was 13.9 on 05/05. * If patient begins to bleed more profusely and then will have to stop the enoxaparin. I will continue with enoxaparin for now given the patient's history of hypofibrinogenemia 2. constipation * Resolved. * Patient did not have vomiting for several days prior to presentation. Patient did have some benefit with enema as well as magnesium citrate. Will continue with another dose of magnesium citrate on the floor and observe. * Likely complicated by the patient's recent surgery as well as limited mobility as well as likely receiving narcotics during the hospitalization. 3. Nausea and vomiting * Resolved * suspect secondary to the constipation * supportive management 4. 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 Narvaez as outpatient - Secondary Discharge Diagnosis Chronic Problems (Last Reviewed 05/08/19 @ 12:54 by Zohaib Castaneda DO) Personal history of colonic polyps (Chronic) History of left heart catheterization (Chronic 1991) [facility]: normal coronaries History of pulmonary embolus (PE) (Chronic ~2009) after hernia surgery Hyperlipidemia (Chronic) Hx of bladder repair surgery (Chronic) Hx of arthroscopic knee surgery (Chronic) Right knee History of left hip replacement (Chronic) Hx of partial thyroidectomy (Chronic) Hx of umbilical hernia repair (Chronic ~2009) Hx of bilateral inguinal hernia repair (Chronic) 1979 &2010 hx of APLL (Chronic) bilaterally Hx of hysterectomy (Chronic) Acid reflux (Chronic) Back problem (Chronic) Hypofibrinogenemia (Chronic) Hypothyroidism (Chronic) Hypertension (Chronic) History of venous thrombosis and embolism (Chronic) Hemorrhoids (Chronic) Gastrointestinal hemorrhage (Chronic) LVH (left ventricular 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 (Chronic) Diverticulitis of sigmoid colon (Chronic) Hospital Course and Treatment Imaging Results: Clinical Impression(s) from Imaging Studies KUB X-Ray 05/08/19 08:13 IMPRESSION: Moderate amount of fecal material is seen in the colon. Electronically Signed: Paulo Dayana, at 8:51 EST , Service support , Chest X-Ray 05/08/19 08:26 IMPRESSION: Borderline cardiomegaly. No acute abnormality is seen. Electronically Signed: Paulo Anne, at 8:49 EST , Service support , Operations: None Procedures: None Summary of Care Provided: The patient is a 78 year old F presents with nausea and vomiting. Patient had abdominal x-ray that showed voluminous stool. Patient received bowel regimen in the emergency room with magnesium citrate as well as a fleets enema. Patient did have bowel movements there. Patient was subsequently admitted given her ongoing symptoms and received additional magnesium citrate and did have more bowel evacuation. Patient nausea and vomiting has resolved likely due to the resolution of the constipation. Patient presented with a hemoglobin of 9 and then yesterday dropped down to 6.8. Patient was having hematochezia. Patient was transfused 1 unit of packed red blood cells and her hemoglobin went up to 8.5 and 8.7. Reviewing the patient's records, patient had a hemoglobin of 15 back in March and then I reviewed the records from [facility] and her hemoglobin was 13.9 on May 05. Patient has been having intermittent hematochezia which has been looked into extensively patient has known history of diverticulosis and internal hemorrhoids. Dick[place] previously to be due to her internal hemorrhoids, the bleeding. [] Patient Problems: Active and Suspected Problems (Last Reviewed 02/06/20 @ 12:54 by JELLY Kern Constipation (Acute) Nausea & vomiting (Acute) Subjective: no further bleeding, though blood noted on toilet paper. No N/V. - Physical Exam Vitals/I&O's: Vital Signs Temp Pulse Resp BP Pulse Ox 36.6 C 79 16 100/44 L 96 05/10/19 03:00 05/10/19 03:00 05/10/19 03:00 05/10/19 03:00 05/10/19 03:00 Oxygen Delivery Method Room Air Weight: 67.585 kg Body Mass Index (BMI) 24.7 Intake and Output for Last 24 Hours 05/08/19 05/09/19 05/10/19 23:59 23:59 23:59 Intake Total 1550 / 1850 1413 / 1813 600 / 600 Balance 1550 / 1850 1413 / 1813 600 / 600 General: Alert, No apparent distress HEENT: Atraumatic, Normocephalic Oral: Moist Mucosa, No Gingival or Mucosal Lesions/ Ulcerations Neck: No Nodes, Thyroid Normal Size and Texture Lungs: Clear to auscultation, Normal air movement, No rhonchi, No wheeze Cardiovascular: Regular rate, Regular Rhythm, Normal S1, Normal S2, No murmurs Abdomen: Bowel Sounds Present, Soft, Non Tender, Non-Distended, No Hepato- splenomegaly Extremities: No edema, No Calf Tenderness Skin: No rashes, No breakdown Psych/Mental Status: Normal Affect, Appropriate Laboratory Results 05/09/19 09:42: Blood Type A POSITIVE, Antibody Screen NEGATIVE, Crossmatch See Detail 05/09/19 17:22: WBC 8.4, RBC 2.87 L, Hgb 8.5 L, Hct 26.1 L, MCV 90.9, MCH 29.6, MCHC 32.6, RDW Std Deviation 43.5, RDW Coeff of Rashmi 13.2, Plt Count 222, MPV 9.7, Immature Gran % (Auto) 1.300 H, Neut % (Auto) 58.3, Lymph % (Auto) 30.7, [place] % (Auto) 8.4, Eos % (Auto) 1.2, Baso % (Auto) 0.1, Absolute Neuts (auto) 4.9, Absolute Lymphs (auto) 2.56, Nucleated RBC % 0 05/10/19 06:48: WBC 6.2, RBC 2.90 L, Hgb 8.7 L, Hct 26.3 L, MCV 90.7, MCH 30.0, MCHC 33.1, RDW Std Deviation 42.6, RDW Coeff of Rashmi 13.0, Plt Count 229, MPV 9.6, Immature Gran % (Auto) 3.900 H, Neut % (Auto) 50.2, Lymph % (Auto) 32.8, [place] % (Auto) 9.1, Eos % (Auto) 3.7, Baso % (Auto) 0.3, Absolute Neuts (auto) 3.1, Absolute Lymphs (auto) 2.02, Nucleated RBC % 0.5 05/10/19 06:48: Sodium 137, Potassium 4.1, Chloride 107, Carbon Dioxide 25.0, Anion Gap 5, BUN 18, Creatinine 0.85, Estim Creat Clear Calc 49.08, Est GFR (MDRD) Af Amer 83, Est GFR (MDRD) Non-Af 69, BUN/Creatinine Ratio 21.2 H, Glucose 98, Calcium 7.9 L Current Medications Acetaminophen (Tylenol) 650 mg PO Q6H PRN PRN PRN Reason: Pain Score 1-10/Temp > 100.7 F Last Admin: 05/10/19 06:44 Dose: 650 mg Documented by: Amlodipine Besylate (Norvasc) 5 mg PO DAILY [facility] Last Admin: 05/09/19 09:30 Dose: 5 mg Documented by: Diphenhydramine HCl (Benadryl) 25 mg PO BID PRN PRN PRN Reason: ALLERGIES Docusate Sodium (Colace) 100 mg PO BID [facility] Last Admin: 05/09/19 21:07 Dose: 100 mg Documented by: Enoxaparin Sodium (Lovenox) 60 mg SC Q12 [facility] Last Admin: 05/09/19 21:07 Dose: 60 mg Documented by: Glucagon () 1 mg IM .X1 PRN PRN Reason: Hypoglycemia Dextrose (Dextrose 10%-Water) 250 mls @ 999 mls/hr IV .Q16M PRN; Protocol PRN Reason: HYPOGLYCEMIA Levothyroxine Sodium (Synthroid) 88 mcg PO DAILY@0600 [facility] Last Admin: 05/10/19 05:31 Dose: 88 mcg Documented by: Losartan Potassium (Cozaar) 100 mg PO DAILY [facility] Last Admin: 05/09/19 09:30 Dose: 100 mg Documented by: Melatonin (Melatonin) 3 mg PO QHS PRN PRN Reason: SLEEP Last Admin: 05/09/19 21:12 Dose: 3 mg Documented by: Ondansetron HCl (Zofran Odt) 4 mg PO Q6H PRN PRN PRN Reason: NAUSEA Ondansetron HCl (Zofran) 4 mg IV Q8H PRN PRN PRN Reason: NAUSEA/VOMITING Last Admin: 05/08/19 14:48 Dose: 4 mg Documented by: Pantoprazole Sodium (Protonix) 40 mg PO DAILY [facility] Last Admin: 05/09/19 09:30 Dose: 40 mg Documented by: Sodium Chloride () 10 - 40 ml IV UD PRN PRN Reason: SALINE FLUSH Last Admin: 05/09/19 15:22 Dose: 20 ml Documented by: Tramadol HCl (Ultram) 50 mg PO Q6H PRN PRN PRN Reason: Pain Score 1-10/10 Last Admin: 05/09/19 17:35 Dose: 50 mg Documented by: Discharge Diet: No Restrictions Call your doctor if you observe: - - rectal bleeding. lightheadedness. intractable nausea and vomiting. Home Medications: Medications to take at Discharge Losartan Potassium [Cozaar] 100 mg PO DAILY 10/17/14 traMADol [Ultram] 50 mg PO Q6H PRN PRN 05/20/17 levothyroxine 88 mcg tablet 88 mcg PO DAILY tab 05/27/18 amlodipine 5 mg tablet 5 mg PO DAILY 09/25/18 enoxaparin 60 mg/0.6 mL subcutaneous syringe 60 mg SC Q12H 09/25/18 Acetaminophen [Tylenol] 500 - 1,000 mg PO Q6H PRN PRN 03/03/19 Chlorpheniramine Maleate 4 mg PO PRN PRN 05/08/19 Docusate Sodium [Dok] 100 mg PO BID 05/08/19 Ondansetron [Ondansetron Odt] 4 mg PO PRN PRN 05/08/19 Bisacodyl [Dulcolax] 5 mg PO DAILY PRN #30 tab 05/10/19 Polyethylene Glycol 3350 [Miralax] 17 gm PO DAILY #30 packet 05/10/19 Following Prescrptions Were Given to Patient: Bisacodyl [Dulcolax] 5 mg PO DAILY PRN #30 tab PRN Reason: Constipation Polyethylene Glycol 3350 [Miralax] 17 gm PO DAILY #30 packet Other Amb Orders: CBC-Complete Blood Cnt No Diff Time Frame: 1 Week, Facility: [facility], Location: Laboratory Primary Care Physician: Radha Mcrae MD [Primary Care Provider] - Within 1 Week Please Follow Up With: Omer Narvaez DO When: next scheduled appt. Disposition: Home with Home Health Minutes spent on discharge:: 35 Patient Condition:: Fair Medical Necessity - Tobacco Use Smoking Status: Never smoker Meaningful Use Info Meaningful Use Diagnoses (Choose all that apply): None applicable Code Visit Inpatient E&M: 13220 Disch Hosp
[2019-05-10] MEDS: traMADol 50 MG Tablet PO (09:12)
[2019-05-10] MEDS: Losartan Potassium 100 MG Tablet PO (09:18)
[2019-05-10] MEDS: amLODIPine 5 MG Tablet PO (09:18)
[2019-05-10] MEDS: Enoxaparin 60 MG/0.6 ML Syringe SC (09:19)
[2019-05-10] MEDS: Docusate Sodium 100 MG Capsule PO (09:19)
[2019-05-10] MEDS: Pantoprazole Sodium 40 MG Tablet PO (09:22)
[2019-05-10 09:30] VITALS: BP 123/70; PULSE 84; RESP 16; TEMP 36.3; O2SAT 99
[2019-05-10 12:25] VITALS: BP 127/62; PULSE 84; RESP 16; TEMP 36.9; O2SAT 97
== END 2019-05-10 12:57 | disposition home or self-care (01) | DRG 812 ==
LOC: ED 11:22 → MS3 11:40
PROVIDERS: Emergency Provider Emergency Medicine; PCP Internal Medicine
DX: D62 Acute posthemorrhagic anemia (principal); D68.8 Other specified coagulation defects; K92.1 Melena; K59.00 Constipation, unspecified; R11.2 Nausea with vomiting, unspecified; Z96.642 Presence of left artificial hip joint; K64.8 Other hemorrhoids; K57.30 Diverticulosis of large intestine without perforation or abscess without bleeding; E78.5 Hyperlipidemia, unspecified; E03.9 Hypothyroidism, unspecified; Z79.01 Long term (current) use of anticoagulants; Z86.711 Personal history of pulmonary embolism
CPT/HCPCS: 36415; 71045; 74018; 80048; 85025; 86850; 86900; 86901; 86920; 86922; 97110; 97162; 97166; 97530; 97535; 99285; J7040; P9016; A4216; J2405

== ENCOUNTER → 2019-05-13 10:40 | Outpatient (CLI) | payer MEDICARE, OTHER, SELFPAY ==
[2019-05-08 12:19] VITALS: BMI 24.7
[2019-05-13 11:33] LABS: Hematocrit 28.5 % (37-47); Hemoglobin 9.2 g/dL (12.0-15.0); Mean Corp Hgb Conc 32.3 g/dL (32-36); Mean Corpuscular Hgb 30.4 pg (27.0-32.0); Mean Corpuscular Volume 94.1 fL (81-99); Mean Platelet Vol. 9.1 fl (6.2-12.0); Platelet Count 430 K/mm3 (150-450); RBC Distribution Width CV 14.9 % (11.6-14.6); RBC Distribution Width SD 45.1 fl (35.1-43.9); Red Blood Count 3.03 M/mm3 (4.2-5.4); White Blood Count 8.5 K/mm3 (4.4-11.0)
== END ==
PROVIDERS: PCP Internal Medicine
DX: K59.00 Constipation, unspecified (principal); R11.2 Nausea with vomiting, unspecified
CPT/HCPCS: 36415; 85027

== ENCOUNTER → 2019-10-06 08:34 | Outpatient (CLI) | payer MEDICARE, OTHER, SELFPAY ==
[2019-07-03 13:27] VITALS: BMI 23.1
--- NOTE | 2019-10-06 08:35 | ECHOD_ITS ---
Reason For Study: ABN EKG Procedure This was a 2D Doppler, Color Flow transthoracic echocardiogram. Exam performed in department. Left Ventricle Severe concentric left ventricular hypertrophy. The estimated ejection fraction is 75 %. Stage 1 diastolic dysfunction. No regional wall motion abnormalities noted. Right Ventricle Normal size and thickness. Normal systolic function. Atria Normal left atrium. Normal right atrium. Normal atrial septum. Mitral Valve The mitral valve is structurally normal. No prolapse or stenosis seen. Trivial mitral valve insufficiency. Tricuspid Valve Normal tricuspid valve. Trivial tricuspid valve insufficiency. Right ventricular systolic pressure estimated to be 24 mmHg. Aortic Valve Trisinus/trileaflet aortic valve. Pulmonic Valve Normal pulmonic valve. Great Vessels Normal aortic root. Normal arch. Normal inferior vena cava. Inferior vena cava collapse with sniff. Pericardium/Pleural No pericardial effusion. MMode/2D Measurements & Calculations LVIDd: 2.9 cm IVSd: 1.9 cm Ao root diam: 3.3 cm LVIDs: 2.0 cm LVPWd: 1.6 cm RVDd: 2.6 cm FS: 30.4 % LAV(MOD-bp): 53.2 ml EDV(MOD-sp4): 68.1 ml EDV(MOD-sp2): 66.8 ml LAV(MOD-bp) Indexed: 31.3 ml/m2 ESV(MOD-sp4): 21.9 ml EF(MOD-sp2): 63.2 % LAV(MOD-sp2): 57.6 ml EF(MOD-sp4): 67.8 % LAV(MOD-sp4): 47.0 ml SV(MOD-sp4): 46.2 ml SV(MOD-sp2): 42.2 ml LA A4 area: 17.0 cm2 LA dimension(2D): 3.6 cm RA A4 area: 9.9 cm2 Time Measurements MV dec time: 0.45 sec Doppler Measurements & Calculations MV E max olman: 56.7 cm/sec Lat Peak E' Olman: 4.6 cm/sec Med Peak E' Olman: 2.1 cm/sec MV A max olman: 109.0 cm/sec E/E' lat: 12.2 E/E' med: 26.6 MV E/A: 0.52 Ao V2 max: 137.7 cm/sec LV V1 max: 123.0 cm/sec TR max olman: 218.2 cm/sec Ao max P.6 mmHg LV V1 max P.1 mmHg TR max P.1 mmHg Interpretation Summary Severe concentric left ventricular hypertrophy. The estimated ejection fraction is 75 %. Stage 1 diastolic dysfunction. Trivial tricuspid valve insufficiency. Right ventricular systolic pressure estimated to be 24 mmHg. Compared to echo report dated 11/26/2017, no appreciable changes noted. Ordering Physician: Brayan Pringle Referring Physician: DR GAB PISANO Performed By: Vicki Pitt, RDCS, RVT
== END ==
PROVIDERS: PCP Internal Medicine; Referring Provider Internal Medicine Cardiovascular Disease; Visit Provider Internal Medicine Cardiovascular Disease
DX: R94.31 Abnormal electrocardiogram [ECG] [EKG] (principal); Z98.890 Other specified postprocedural states
CPT/HCPCS: 93306

== ENCOUNTER → 2019-10-10 09:21 | Outpatient (CLI) | payer MEDICARE, OTHER, SELFPAY ==
[2019-07-03 13:27] VITALS: BMI 23.1
--- NOTE | 2019-10-10 09:22 | STE_ITS ---
Reason For Study: PREOPERATIVE Stress Results Protocol: Dobtuamine Stress Echo Maximum Predicted HR: 142 bpm Target HR: 121 bpm % Maximum Predicted HR: 76 % DurationHeart Rate Stage (mm:ss) (bpm) BP Dose BASELINE 82 129/79 STAGE 1 3:01 108 144/8610.00 RECOVERY 96 147/71 Stress Duration: 3:01 mm:ss Maximum Stress HR: 108 bpm Baseline Echocardiogram Findings The estimated ejection fraction is 75 %. Severe concentric left ventricular hypertrophy. Stress Echo Wall motion Data Resting WM Intermediate WM Stress WM Resting Wall Motion Wall Motion Stress No regional wall motion No regional wall motion abnormalities noted. abnormalities noted. EKG Data The baseline ECG displays normal sinus rhythm. The patient was titrated from 10 mcg to a maximum of 20 mcg of dobutamine during the stress. The maximum heart rate attained was 112 beats per minute. This was 78% of maximum predicted heart rate. During dobutamine infusion, there were no ST or T wave changes noted to suggest ischemia. No clinical angina was noted. No arrhythmias noted. Interpretation Summary The estimated ejection fraction is 75 %. Severe concentric left ventricular hypertrophy. Normal, submaximal, dobutamine echocardiogram. Negative for ischemia by EKG and echocardiographic criteria. No anginal symptoms noted. No arrhythmias noted. Test terminated after only 10 mcg/min of dobutamine as the patient developed cavity obliteration with an intracavitary gradient of 263 mmHg with associated systolic anterior motion of the mitral leaflet and moderate to severe mitral regurgitation. Appropriate blood pressure response to dobutamine. Final LVEF of 80%. Patient tolerated procedure well and will be referred for evaluation of septal myectomy. Ordering Physician: Brayan Pringle Referring Physician: Brayan Pringle Performed By: Lupe Srpague RDCS
== END ==
PROVIDERS: PCP Internal Medicine; Referring Provider Internal Medicine Cardiovascular Disease; Visit Provider Internal Medicine Cardiovascular Disease
DX: Z01.810 Encounter for preprocedural cardiovascular examination (principal); I10 Essential (primary) hypertension; R94.31 Abnormal electrocardiogram [ECG] [EKG]; Z86.711 Personal history of pulmonary embolism
CPT/HCPCS: 93017; 93350; J7040; A4216

== ENCOUNTER → 2019-10-14 09:03 | Outpatient (CLI) | payer MEDICARE, OTHER, SELFPAY ==
[2019-07-03 13:27] VITALS: BMI 23.1
--- NOTE | 2019-10-14 09:05 | RAD_ITS ---
STUDY: X-RAY CHEST REASON FOR EXAM: Female, 78 years old. PRE HEART CATH, NO CURRENT CHEST COMPLAINTS TECHNIQUE: PA and lateral views of the chest. COMPARISON: Comparison is made with prior study dated January 06, 2020. FINDINGS: Hyperinflation. The lungs are clear. The lungs are clear and expanded. There is no demonstrated pleural abnormality. Normal size heart. Normal mediastinum and ricci. Normal visualized pulmonary arteries. There is atherosclerotic tortuosity of the aortic arch and descending thoracic aorta. There are diffuse degenerative changes of the visualized thoracic spine. There is degenerative osteoarthritis of the bilateral shoulders. There is no demonstrated abnormality of the visualized soft tissue structures of the upper abdomen. RAD/Chest PA and Lateral IMPRESSION: Hyperinflation. The lungs are clear. Electronically Signed: Paulo Anne, at 9:23 EDT , Service support ,
[2019-10-14 09:41] LABS: Hematocrit 46.3 % (37-47); Hemoglobin 15.1 g/dL (12.0-15.0); Mean Corp Hgb Conc 32.6 g/dL (32-36); Mean Corpuscular Hgb 28.7 pg (27.0-32.0); Mean Corpuscular Volume 87.9 fL (81-99); Mean Platelet Vol. 9.5 fl (6.2-12.0); Platelet Count 252 K/mm3 (150-450); RBC Distribution Width CV 13.6 % (11.6-14.6); RBC Distribution Width SD 43.7 fl (35.1-43.9); Red Blood Count 5.27 M/mm3 (4.2-5.4); White Blood Count 4.3 K/mm3 (4.4-11.0)
[2019-10-14 09:49] LABS: International Normalized Ratio 1.1; Prothrombin Time (Protime)PT. 14.2 SECONDS (11.7-14.9)
[2019-10-14 09:51] LABS: Partial Thromboplast Time 36.5 Seconds (24.1-36.2)
[2019-10-14 10:32] LABS: Anion Gap 5 (5-15); BUN 23 mg/dL (7-18); BUN/Creat Ratio 22.3 RATIO (10-20); Chloride 107 mmol/L (98-107); Creatinine, Serum 1.03 mg/dL (0.55-1.02); EST Glomerular Filtration Rate 55 mL/min (>60); Est Glom Filt Rate - Afr Amer 67 mL/min (>60); Glucose 107 mg/dL (74-106); Potassium 4.1 mmol/L (3.5-5.1); Sodium Level 140 mmol/L (136-145)
== END ==
PROVIDERS: PCP Internal Medicine; Referring Provider Internal Medicine Cardiovascular Disease; Visit Provider Internal Medicine Cardiovascular Disease
DX: I42.2 Other hypertrophic cardiomyopathy (principal); I51.7 Cardiomegaly; I34.0 Nonrheumatic mitral (valve) insufficiency; R94.39 Abnormal result of other cardiovascular function study; Z86.711 Personal history of pulmonary embolism; Z79.01 Long term (current) use of anticoagulants
CPT/HCPCS: 36415; 71046; 80048; 85027; 85610; 85730

== ENCOUNTER 2019-10-22 07:45 | Day surgery (SDC) | payer MEDICARE, OTHER, SELFPAY ==
[2019-07-03 13:27] VITALS: BMI 23.1
[2019-10-21 07:08] VITALS: BMI 23.1
[2019-10-21 17:14] VITALS: BMI 23.1
--- NOTE | 2019-10-22 08:39 | PCM.HP.BLA ---
History and Physical Date of Admission: 10/22/19 KEYONNA VILLAGOMEZ, is a 78 F who presents today for a heart cath. Patient recently underwent a stress echocardiogram for worsening concentric LVH that was noted on echo from routine monitoring. Stress echo demonstrated demonstrated severe concentric LVH. It was noted that she had moderate to severe mitral regurgitation. She is here today to undergo further evaluation for septal myectomy and possible mitral valve repair. She has a history of hypertension, hypercholesterolemia, family history of coronary disease, clotting disorder with hxof DVT/pulmonary embolism after GI surgery, urvashi filter, SVT. During a virtual visit patient has not had any cardiac symptoms. Echocardiogram was done to monitor pulmonary pressures and her LVH. Intake Vital Signs See chart Intake Visit Reasons: Amb Documentation Allergies Iodinated Contrast Media [Iodinated Contrast- Oral and IV Dye] Allergy (Severe, Verified 10/21/19 07:03) Hives iodine Allergy (Verified 10/21/19 07:03) Anaphylaxis [facility] Medical History (Updated 10/13/19 @ 09:32 by Alison Martínez) Hypertrophic cardiomyopathy (Chronic) Severe left ventricular hypertrophy (Chronic) Severe mitral regurgitation (Chronic) Abnormal stress echo (Acute) Thrombophlebitis of superficial veins of left lower extremity (Acute) Cellulitis of left lower extremity (Acute) History of pulmonary embolus (PE) (Chronic ~2009) Palpitations (Acute) Hyperlipidemia (Chronic) hx of APLL (Chronic) Acid reflux (Chronic) Constipation (Acute) Abdominal pain (Acute) Heart murmur (Acute) Arthritis (Acute) Back problem (Chronic) Hypofibrinogenemia (Chronic) Hypothyroidism (Chronic) Hypertension (Chronic) History of venous thrombosis and embolism (Chronic) Hemorrhoids (Chronic) Gastrointestinal hemorrhage (Chronic) LVH (left ventricular 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 (Chronic) Diverticulitis of sigmoid colon (Chronic) Surgical History History of left heart catheterization (Chronic 1991) Hx of bladder repair surgery (Chronic) Hx of arthroscopic knee surgery (Chronic) History of left hip replacement (Chronic) Hx of partial thyroidectomy (Chronic) Hx of umbilical hernia repair (Chronic ~2009) Hx of bilateral inguinal hernia repair (Chronic) Hx of hysterectomy (Chronic) History of right hip replacement (Acute) Social History (Updated 07/03/19 @ 13:[address] Brayan Pringle MD) Smoking Status: Never smoker second hand exposure: No alcohol intake: never substance use type: does not use caffeine: Yes (very rare) what type of physical activity do you participate in: none frequency: does not exercise seatbelt use: always ROS Const Const: Negative for fatigue, weakness, fever(s) or headache(s) Eyes Eyes: Negative for blind spots, loss of peripheral vision or transient loss of vision ENT ENT: Negative for headache(s), dizziness, tinnitus or Nosebleed/epistaxis Cardio Chest Pain: No Palpitations: Yes Edema: None Muscle aches with walking: None Resp Respiratory: Negative for SOB with activity, SOB at rest, SOB orthopnea\SOB lying down or Cough GI GI: Negative nausea, vomiting, heartburn or vomiting blood/hematemesis : Negative for hematuria Musc Musc: Negative for muscle aches/ myalgia Neuro Neuro: Negative for dizziness, lightheadedness, near syncope, syncope, orthostatic symptoms, headache(s) or weakness Roddy Hematologic/Lymphatic: Negative for easy bleeding Endo Endo: Negative for fatigue Cardiology Exam Const Appearance: cooperative, healthy appearing and no acute distress Nutritional Appearance: well nourished Orientation: alert, oriented x3 and oriented to person Head Head: normal to inspection, normocephalic and atraumatic Nose: external nose normal Face and Sinus: face symmetric Mouth: oral mucosae normal Eyes General: appearance normal, both eyes and all related structures Eyelids: eyelids normal Conjunctivae: conjunctivae normal Pupils: PERRL and normal by confrontation EOM: EOM intact bilaterally Neck Neck: normal visual inspection and full ROM Carotids: normal carotid upstroke Chest Chest inspection: normal inspection of the chest Auscultation: Bilateral: Clear to Auscultation Cardio Palpation: normal PMI Rate: regular rate Rhythm: regular rhythm Heart sounds: S1 normal and S2 normaL, systolic click, soft murmur GI GI: normal to inspection, no hepatosplenomegaly and bowel sounds present Neuro General: alert, awake, oriented x3, CN's II-XI intact bilaterally and moves all extremities Skin Skin: no rashes or lesions noted Extremities Pulses: Normal: Right Femoral Pulse, Left Femoral Pulse, Right Dorsalis Pedis Pulse, Left Dorsalis Pedis Pulse, Right Posterior Tibial Pulse, Left Posterior Tibial Pulse, Right Radial Pulse, Left Radial Pulse Lower Extremity Edema: None: Bilateral Psych Psychological: normal affect Assessment & Plan Problems 1. Severe left ventricular hypertrophy I51.7 2. Severe mitral regurgitation I34.0 during stress echo 10/10/19 3. Hypertension I10 4. Hyperlipidemia E78.5 Plan Follow-up will be based upon results of heart catheterization. Supplemental Information Echocardiogram 2020: Severe concentric left ventricular hypertrophy. The estimated ejection fraction is 75 %. Stage 1 diastolic dysfunction. Trivial tricuspid valve insufficiency. Right ventricular systolic pressure estimated to be 24 mmHg. Compared to echo report dated 11/26/2017, no appreciable changes noted. Stress echo: The estimated ejection fraction is 75 %. Severe concentric left ventricular hypertrophy. Normal, submaximal, dobutamine echocardiogram. Negative for ischemia by EKG and echocardiographic criteria. No anginal symptoms noted. No arrhythmias noted. Test terminated after only 10 mcg/min of dobutamine as the patient developed cavity obliteration with an intracavitary gradient of 263 mmHg with associated systolic anterior motion of the mitral leaflet and moderate to severe mitral regurgitation. Appropriate blood pressure response to dobutamine. Final LVEF of 80%. Patient tolerated procedure well and will be referred for evaluation of septal myectomy. COVID (Procedure Consent) Procedure Criteria Procedure Criteria: Yes Elective The surgeon/proceduralist and patient have discussed in detail the risk of exposure to and/or potential harm posed by the COVID-19 virus with having a surgery/procedure at this time versus the risk of delaying the surgery/procedure. It is not possible to know either the risk of delaying the surgery or procedure or chance of getting an infection with perfect accuracy, but a joint decision was made between the patient and the surgeon/proceduralist to proceed at this time with the scheduled surgery/procedure as indicated on the consent form.
--- NOTE | 2019-10-22 10:03 | CL.D_ITS ---
Patient Name: KEYONNA VILLAGOMEZ Study Date: 10/22/2019 Performing: Brayan Pringle MD Ht: 64.96 inches 165 cm : 1940 Wt: 138.89 lbs 63 kg Age: 78 Gender: female BSA: 1.69 PROCEDURE(S) PERFORMED DF03-LHF/COR/LV CLINICAL PROFILE AND INDICATIONS Indications: Suspected CAD Heart Failure: None Stress/Imaging Date: 10/10/2019Stress Echocardiogram: Positive Intermediate Risk Angina Classification Anginal Classification w/in 2 Weeks: Anginal Equivalent Dyspnea CAD Presentations: Other: Dyspnea on exertion Comorbidities/Risk Factors: Hypertension Dyslipidemia CONCLUSIONS Normal LV size, wall motion,and systolic function LVEF: by LV gram 65 % Elevated Left Ventricular End Diastolic Pressure Single vessel CAD of the proximal LAD Cardiomyopathy: Hypertrophic RECOMMENDATIONS Management as per referring Fur Blowing Machine Attendant Refer to [facility] for possible single vessel CABG to LAD, septal myectomy for stress induced sev ere intra-cavitary gradient with associated JOHN. Manual sheath removal Unable to do RHC given h/o DVT filter. DESCRIPTION OF PROCEDURE The patient arrived to the procedure lab. The risks and benefits of the procedure as well as a full d escription of our services here and current unavailability of surgical backup were fully explained to the patient and/or their significant other prior to the catheterization. The Timeout was completed, verifying the correct patient and procedure. The patient's procedural site was prepped and draped in the usual fashion. Local anesthetic was given subcutaneously to right groin region with Lidocaine 2%. Using a modified Seldinger technique, arterial access was obtained via the right femoral artery, a 4 Fr sheath was inserted Left Coronary Artery selective angiography was performed in multiple views us ing a 4 Fr. JL5 catheter. Right Coronary Artery selective angiography was then performed in multiple views using a 4 Fr. 3DRC catheter. Left Ventriculography was performed in IVERSON projection using a 4 Fr . Pigtail catheter. LV to AO pullback pressures were then recorded.The arterial sheath was pulled and manual compression applied until hemostasis is achieved. CORONARY ANGIOGRAPHY DOMINANCE: Right Dominant LEFT HEART ASSESSMENT Left Ventricular Ejection Fraction: by LV Gram 65 % Normal LV wall motion Normal Left Ventricular systolic function LVEDP: 17 mmHg Elevated Left Ventricular End Diastolic Pressure LEFT MAIN: Angiographically normal LEFT ANTERIOR DESCENDING ARTERY: PROX LAD: 70 % Stenosis CIRCUMFLEX ARTERY: Angiographically normal RIGHT CORONARY ARTERY: PROX RCA: Non-obstructive COMPLICATIONS No Complications PROCEDURE MEDICATIONS Oxygen: 2 L/min via nasal cannula Benadryl 25 mg IV 10/22/2019 09:11:22 Atropine 1mg/10ml .25 amp @ 10/22/2019 09:45:05 Solu-medrol 100 mg IV 10/22/2019 09:11:16 SUMMARY OF HEMODYNAMIC DATA Time AIR REST ECG 08:08:36 ECG 08:08:59 AO 132/74 (101) SA 09:42:49 LV 114/18, 23 09:49:38 LV 150/-14, 13 09:50:22 LV 151/-13, 17 09:50:28 LVp 154/-13, 16 09:50:39 AOp 151/69 (105) 09:50:44 Signed By Brayan Pringle MD On 10/22/2019 10:03:19 Brayan Pringle MD
== END 2019-10-22 14:38 | disposition home or self-care (01) ==
LOC: CLSP 07:46
PROVIDERS: PCP Internal Medicine; Referring Provider Internal Medicine Cardiovascular Disease; Visit Provider Internal Medicine Cardiovascular Disease
DX: I25.10 Atherosclerotic heart disease of native coronary artery without angina pectoris (principal); R06.09 Other forms of dyspnea; I42.2 Other hypertrophic cardiomyopathy; I10 Essential (primary) hypertension; E78.5 Hyperlipidemia, unspecified; Z79.899 Other long term (current) drug therapy; Z79.52 Long term (current) use of systemic steroids; Z86.711 Personal history of pulmonary embolism; Z86.718 Personal history of other venous thrombosis and embolism; M19.90 Unspecified osteoarthritis, unspecified site; E03.9 Hypothyroidism, unspecified; K21.9 Gastro-esophageal reflux disease without esophagitis
CPT/HCPCS: 93458; J7040; Q9967; C1751; C1769; C1894

== ENCOUNTER 2019-11-10 09:57 | Emergency (ER) | payer MEDICARE, OTHER, SELFPAY ==
[2019-10-21 17:14] VITALS: BMI 23.1
[2019-11-10 09:58] VITALS: BP 137/89; PULSE 79; RESP 18; TEMP 36.2; O2SAT 95; BMI 23.8
--- NOTE | 2019-11-10 10:14 | EKG12_ITS ---
Test Reason : CP Blood Pressure : / mmHG Vent. Rate : 072 BPM Atrial Rate : 072 BPM P-R Int : 194 ms QRS Dur : 094 ms QT Int : 414 ms P-R-T Axes : 038 -32 055 degrees QTc Int : 453 ms Normal sinus rhythm Left axis deviation Inferior infarct , age undetermined Anteroseptal infarct , age undetermined Nonspecific T-Wave Abnormality Abnormal ECG Confirmed by SHAMA COYLE, DEMETRA ([id number]), image editor EDIS WEAVER ([id number]) on 11/12/2019 1:27:13 PM Referred By: ROSEMARY/HARSHA Confirmed By:DEMETRA SESAY MD
--- NOTE | 2019-11-10 10:15 | ED.VIS.GEN ---
History of Present Illness Chief Complaint: Chest Pain Informant: Patient Onset: Today - Awakened from sleep bed 0100 Context: Sudden Onset Timing: Continuous Quality: Left scapular pain and mid sternal indigestion and tightness Location: Read above Current Severity: Mild Maximum Severity: Moderate Worsened by: Nothing Relieved by: Nothing Associated Symptoms: Dyspnea only Narrative: Patient is a 78-year-old woman who had a recent cardiac catheterization and revealed 70% stenosis proximal LAD with preserved ejection fraction and evidence of cardiomyopathy and significant mitral valve regurgitation. She reports mild discomfort in her chest presently. The dyspnea has resolved. She also reports swelling of her lower extremities over the past several weeks. Swelling is worse at night. She denies orthopnea or PND. She denies black or maroon stool. She denies symptoms of claudication. She denies infectious upper respiratory symptoms. 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 (11) Hypothyroidism Status: Chronic (12) LVH (left ventricular 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 Status: Chronic (13) Severe mitral regurgitation Status: Chronic Comment: during stress echo 10/10/19 (14) hx of APLL Status: Chronic Comment: bilaterally Past Medical History - Allergies and Home Meds Allergies/Adverse Reactions: Allergies Iodinated Contrast Media [Iodinated Contrast- Oral and IV Dye] Allergy (Severe, Verified 11/10/19 10:00) Hives iodine Allergy (Verified 11/10/19 10:00) Anaphylaxis Primary Care Physician: Radha Mcrae MD [Primary Care Provider] - Surgical History: noncontributory, herniorrhaphy, - - Cardiac catheterization, total hip arthroplasty, Lives: Spouse/ Significant Other Smoking Status: Never smoker Alcohol: None Drugs: None - Family History Paternal Family History: Family History (Last Reviewed 07/03/19 @ 13:27 by Alison Martínez) Mother Colon cancer Brother Myeloma Father Heart disease Family History: Reports: Heart Disease Review of Systems General: Denies: Chills, Fever, Malaise Eyes: Denies: Visual changes - bilaterally, Blurred Vision - bilaterally ENT: Denies: Bilateral ear pain, Rhinorrhea Cardiovascular: Reports: Chest pain. Denies: Palpitations, Heart racing Respiratory: Reports: Dyspnea. Denies: Cough, Sputum, Dyspnea on exertion, Orthopnea, Paroxysmal nocturnal dyspnea, -, - Gastrointestinal: Denies: Abdominal pain, Nausea, Vomiting, Diarrhea, Constipation, Melena, Hematochezia, -, - Musculoskeletal: Reports: Back pain, Swelling. Denies: Myalgias, Arthralgias, Neck pain, Extremity Pain, -, - Skin: Denies: Rash Neurological: Denies: Headache, Weakness, Parasthesia Allergy: Denies: Uticaria, Swelling of the mouth Physical Exam Vital Signs/Narrative: Vital Signs Temp Pulse Resp BP Pulse Ox 11/10/19 09:58 97.2 F L 79 18 137/89 H 95 Inital Vital Signs reviewed: Yes General: Well nourished, Well developed, No Acute Distress Head: Normocephalic, Atraumatic Eyes: Perrl, EOMI. Negative for: Pale conjunctiva, Scleral icterus ENT: Moist mucous membranes, No rhinorrhea. Negative for: Nasal congestion Neck: Supple, Nontender, No lymphadenopathy, No JVD Cardiovascular: Regular rate, Regular rhythm, Normal S1, Normal S2, Murmur - Grade 2 systolic murmur with radiation to the axilla.. Negative for: No murmurs Respiratory: No distress, CTA bilaterally, Chest nontender. Negative for: Rales, Rhonchi, Wheezing Abdomen: Soft, Nontender, Nondistended, Normal bowel sounds. Negative for: Hepatomegaly, Splenomegaly, Mass, Pulsatile mass Back: Nontender, Normal Inspection. Negative for: CVA tenderness Extremities: Nontender, Edema - 1 to 2 mm pitting edema. Negative for: No edema Skin: Normal color, No rash Neurological: Alert, Oriented x3, Cranial nerves II-XII grossly intact, Normal Strength, Normal Sensation Psychological: Normal affect, Normal Mood Diagnostic/Tx/Re-eval Impressions Chest X-Ray 11/10/19 10:20 IMPRESSION: No acute abnormality is seen. Electronically Signed: Paulo Anne, at 10:53 EDT , Service support , 11/10/19 10:20 Chest 1 View (Portable) [RAD] Stat Laboratory Results 11/10/19 11/10/19 10:05 10:05 WBC 4.8 RBC 5.18 Hgb 15.2 H Hct 47.4 H MCV 91.5 MCH 29.3 MCHC 32.1 RDW Std Deviation 45.7 H RDW Coeff of Rashmi 13.5 Plt Count 258 MPV 9.5 Immature Gran % (Auto) 0.400 Neut % (Auto) 50.6 Lymph % (Auto) 34.7 Baxter % (Auto) 12.8 H Eos % (Auto) 1.1 Baso % (Auto) 0.4 Absolute Neuts (auto) 2.4 Absolute Lymphs (auto) 1.65 Nucleated RBC % 0 Sodium 142 Potassium 3.9 Chloride 108 H Carbon Dioxide 30.0 Anion Gap 4 L BUN 16 Creatinine 0.93 Estim Creat Clear Calc 44.86 Est GFR (MDRD) Af Amer 74 Est GFR (MDRD) Non-Af 62 BUN/Creatinine Ratio 17.1 Glucose 76 Calcium 9.1 Trop[address] 0.[address] Pringle her operational test mechanic made aware of patient's history, physical and laboratory results. He recommended transfer to [facility] in light of the fact that she has proximal LAD lesion, 70% stenosis, hypertrophic cardiomyopathy and significant valvular heart disease. She has an appointment to see Dr. Ramachandran on Sunday and is scheduled to see Dr. Fernandez. Case was discussed with cardiology at [facility]. Patient was accepted for admission. - EKG Initial EKG Interpretation: Sinus Rhythm - Sinus rhythm with a ventricular rate of 72. MA interval is 194 ms. QRS duration 94 ms. QT duration 414 ms. Foss to the left. There is decreased anterior force with prominent T waves noted. This is unchanged from March 03, 2019. Prior: Unchanged - Medical Decision Making Patient presents with discomfort that awoke her from sleep. Need to rule out GI versus cardiac etiology. EKG was obtained as well as appropriate blood work. Since she has history of hypertrophic cardiomyopathy she did not receive nitroglycerin to treat her chest discomfort since there is no evidence of acute ischemia on the EKG. Discussed anticoagulation with cardiology at [facility]. Requested no anticoagulation. Because of the hypertrophic cardiomyopathy she did not receive nitroglycerin even though she is still having mild chest discomfort. - Critical Care Time Critical care time (excluding procedures): Including time spent: - Time spent for history, physical, documentation, review of prior records, discussion with operational test mechanic [facility], operational test mechanic [facility], interpretation of lab results, review of images, 31 minutes, Discussing w/Patient &/or Family/Registered Veterinary Technician, Discussing w/Consultants, Arranging Admission or Transfer ED Disposition - Plan for ED Patient: Disposition: Home or Assisted Living Diagnosis: Acute coronary syndrome, Hypertrophic cardiomyopathy, Severe mitral regurgitation Referrals: Radha Mcrae MD [Primary Care Provider] -
[2019-11-10] MEDS: Aspirin 81 MG TAB.CHEW 324 MG PO (10:19)
--- NOTE | 2019-11-10 10:20 | RAD_ITS ---
STUDY: X-RAY CHEST REASON FOR EXAM: Female, 78 years old. PAIN IN LEFT SIDE BACK AND INDIGESTION TECHNIQUE: Single AP portable view of the chest. COMPARISON: Comparison is made with prior examination dated 10/14/2019. FINDINGS: EKG electrodes are seen. The lungs are clear and expanded. There is no demonstrated pleural abnormality. Normal size heart. Normal mediastinum and ricci. Normal visualized pulmonary arteries. There is atherosclerotic tortuosity of the aortic arch and descending thoracic aorta. There are diffuse degenerative changes of the visualized thoracic spine. Normal visualized ribs, clavicles, and shoulders. There is no demonstrated abnormality of the visualized soft tissue structures of the upper abdomen. RAD/Chest 1 View (Portable) IMPRESSION: No acute abnormality is seen. Electronically Signed: Paulo Anne, at 10:53 EDT , Service support ,
[2019-11-10 10:27] VITALS: O2SAT 98
[2019-11-10 10:33] LABS: Absolute Lymphocyte Count 1.65 X10^3/uL (0.83-4.51); Absolute Neutrophil Count 2.4 X10^3/uL (2.0-7.7); Basophil# 0.02 X10^3/uL; Basophil% 0.4 % (0-1); Eosinophil# 0.05 X10^3/uL; Eosinophils% 1.1 % (0-5); Hematocrit 47.4 % (37-47); Hemoglobin 15.2 g/dL (12.0-15.0); Lymphocyte # 1.65 X10^3/ul (4.0); Lymphocyte % 34.7 % (19-41); Mean Corp Hgb Conc 32.1 g/dL (32-36); Mean Corpuscular Hgb 29.3 pg (27.0-32.0); Mean Corpuscular Volume 91.5 fL (81-99); Mean Platelet Vol. 9.5 fl (6.2-12.0); Monocyte# 0.61 X10^3/uL; Monocyte% 12.8 % (0-10); NRBC Flagged by Analyzer 0 % (0-5); Neutrophil % 50.6 % (47-70); Platelet Count 258 K/mm3 (150-450); RBC Distribution Width CV 13.5 % (11.6-14.6); RBC Distribution Width SD 45.7 fl (35.1-43.9); Red Blood Count 5.18 M/mm3 (4.2-5.4); White Blood Count 4.8 K/mm3 (4.4-11.0)
[2019-11-10 10:49] LABS: Anion Gap 4 (5-15); BUN 16 mg/dL (7-18); BUN/Creat Ratio 17.1 RATIO (10-20); Calcium,Total 9.1 mg/dL (8.5-10.1); Chloride 108 mmol/L (98-107); Creatinine, Serum 0.93 mg/dL (0.55-1.02); EST Glomerular Filtration Rate 62 mL/min (>60); Est Glom Filt Rate - Afr Amer 74 mL/min (>60); Estimated Creatinine Clearance 44.86 ml/min; Glucose 76 mg/dL (74-106); Potassium 3.9 mmol/L (3.5-5.1); Sodium Level 142 mmol/L (136-145)
[2019-11-10 10:58] VITALS: BP 130/91; PULSE 75; RESP 18; O2SAT 97
[2019-11-10 12:00] VITALS: BP 132/74; PULSE 72; RESP 16; O2SAT 98
--- NOTE | 2019-11-10 12:07 | NURSING ---
CALLING [facility] ABOUT TRANSFER. TALKED TO [facility]
--- NOTE | 2019-11-10 12:14 | NURSING ---
DR GEORGE, [facility], FOR DR SALVADOR
[2019-11-10 14:01] VITALS: BP 146/94; PULSE 74; RESP 19; O2SAT 96
--- NOTE | 2019-11-10 16:04 | NURSING ---
[facility] G62 BED 14 NURSE TO NURSE [phone]
--- NOTE | 2019-11-10 16:17 | NURSING ---
CALLED PHYSICANS, ETA IS 20 MIN
[2019-11-10 16:26] VITALS: BP 154/79; PULSE 68; RESP 14; O2SAT 95
== END 2019-11-10 16:50 | disposition short-term general hospital (02) ==
PROVIDERS: Emergency Provider Emergency Medicine; PCP Internal Medicine
DX: I24.9 Acute ischemic heart disease, unspecified (principal); I42.2 Other hypertrophic cardiomyopathy; I34.0 Nonrheumatic mitral (valve) insufficiency; E03.9 Hypothyroidism, unspecified; I10 Essential (primary) hypertension; Z86.711 Personal history of pulmonary embolism; Z86.718 Personal history of other venous thrombosis and embolism; Z79.899 Other long term (current) drug therapy
CPT/HCPCS: 71045; 80048; 84484; 85025; 87635; 93005; 94799; 99284; A4216; U0003

== ENCOUNTER → 2019-12-04 12:45 | Outpatient (CLI) | payer MEDICARE, OTHER, SELFPAY ==
[2019-10-21 17:14] VITALS: BMI 23.1
[2019-11-10 09:58] VITALS: BMI 23.8
--- NOTE | 2019-12-04 13:23 | SP.MBSS_ITS ---
Modified Barium Swallow - Patient Information Study Date: 12/04/19 Study Time: 13:00 Diagnosis: dysphagia, unspecified (R13.12) Referring Physician: Radha Mcrae Reason for Referral: coughing with liquids Medical History: Pt is a 78/F with past medical history including hypertrophic cardiomyopathy, severe left ventricular hypertrophy, severe mitral regurgitation, abnormal stress echo, thrombophlebitis of superficial veins of left lower extremity, cellulitis of left lower extremity, history of pulmonary embolus, palpitations, hyperlipidemia, hx of APLL, acid reflux, constipation, abdominal pain, heart murmur, arthritis, back problem, hypofibrinogenemia, hypothyroidism, hypertension, history of venous thrombosis and embolism, hemorrhoids, gastrointestinal hemorrhage, left ventricular hypertrophy due to hypertensive disease, and diverticulitis of sigmoid colon. Current Diet Ordered: regular/thin Dentition: Natural Teeth, Upper Dentures Mental Status: WNL Respiratory Status: Oxygenating on Room Air - Study Findings Consistencies: Thin Liquid, [place] Thick Liquid, Honey Thick Liquid, Pudding, Cookie - Penetration-Aspiration Scale Penetration-Aspiration Scale: OBJECTIVE ASSESSMENT OF SWALLOW FUNCTION (QUANTITATIVE ? PER TRIAL): PENETRATION / ASPIRATION SCALE (HARRISON): 1 = does not enter airway 2 = enters airway/above vocal folds/ejected 3 = enters airway/above vocal folds/not ejected 4 = enters airway/contacts vocal folds/ejected 5 = enters airway/contacts vocal folds/not ejected 6 = enters airway/below vocal folds/ejected 7 = enters airway/below vocal folds/not ejected despite effort 8 = enters airway/below vocal folds/no effort VIDEOFLOROSCOPIC SCALE SCORE (HARRISON): Grade I = aspiration of material that has penetrated into the laryngeal vestibule, intact cough reflex Grade II = aspiration < 10 % of the bolus, intact cough reflex Grade III = aspiration of < 10 % of the bolus, reduced cough reflex or aspiration of > 10 % of the bolus, intact cough reflex Grade IV = aspiration of > 10 % of the bolus, reduced cough reflex - Penetration-Aspiration Scale Score Thin Liquid via teaspoon Result: 1= does not enter airway Thin Liquid via teaspoon Trial 2 Result: 1= does not enter airway Thin Liquid via large single sip from cup Result: 1= does not enter airway Thin Liquid via sequential sips from cup Result: 2= enter airway/above vocal folds/ejected [place] Thick Liquid via small single sip from cup Result: 1= does not enter airway Honey Thick Liquid via small single sip from cup Result: 1= does not enter airway Pudding via teaspoon Result: 1= does not enter airway Cookie Result: 1= does not enter airway Thin Liquid via sequential sips from straw Result: 2= enter airway/above vocal folds/ejected - Oral Phase Labial Seal: No Labial Escape Tongue Control During Bolus Hold: Escape to lateral buccal cavity/floor of mouth Bolus Preparation/Mastication: Slow prolonged chewing/mashing with complete recollection Bolus Transport/Lingual Motion: Slowed tongue motion Oral Residue: Residue collection on oral structures - Pharyngeal Phase Initiation of Pharyngeal Swallow: Bolus head at posterior laryngeal surgace of epiglottis Soft Palate Elevation: No bolus between soft palate and pharyngeal wall Laryngeal Elevation: Partial superior movement thyroid cart/partial apprx aryt- epig petiole Anterior Hyoid Excursion: Partial anterior movement Epiglottic Movement: Complete inversion Laryngeal Vestibule Closure at Height of Swallow: Incomplete; narrow column of air/contrast in laryngeal vestibule Pharyngeal Stripping Wave: Present - diminished Pharyngoesophageal Segment Opening: Parital distension and partial duration; parital obstruction of flow Tongue Base Retraction: Narrow column of contrast between tongue base & post. pharyngeal wall Pharyngeal Residue: Collection of residue within or on pharyngeal structures - Diagnosis/Impression Diagnosis: mild oropharyngeal dysphagia (R13.12) Impression: The patient trialed thin liquid barium with small single to larger sequential sips via cup and via straw. No aspiration was found at this date and time. Patient found to have penetration above the vocal cords which was ejected with both trials of thin liquids in sequential sips via cup and via straw. Patient required a second swallow to clear pharyngeal residue pooling in the valleculae. Patient had slow mastication of solid texture Ledy Doonie cookie trial with moderate oral residue. All results and recommendations were reviewed with the patient upon completion. Pt instructed on diet recommendations including soft textures/thin liquids and compensatory strategy recommendations including taking a second hard swallow with every bite/sip, small bites/sips, sitting upright during meals, and remaining upright after meals (30-60 minutes). The patient verbalized understanding and agreement with plan. - Recommendations Diet: Regular Textures - Regular-soft textures, Thin Liquids Compensatory Strategies: Small Bites, Small Sips, Multiple Swallows, Sitting upright, Remain sitting upright for 30 minutes after PO intake Recommend Repeat Modified Barium Swallow: No Need for Skilled Speech Therapy Services: No Education Completed: Described result of evaluation., Pt understands evaluation & agrees with goals and treatment plan. - Image Count: 1,[phone] - Status Active ST Patient: Not Active - Contact Information Speech Therapist:: Doreen Schmidt CCC-SCIENTIFIC INFORMATICS PROJECT LEADER, [place] Email:: [email or web address] Phone:: [phone]
== END ==
PROVIDERS: PCP Internal Medicine; Referring Provider Internal Medicine; Visit Provider Internal Medicine
DX: R09.89 Other specified symptoms and signs involving the circulatory and respiratory systems (principal)
CPT/HCPCS: 74230; 92611

== ENCOUNTER 2020-01-02 13:42 | Emergency (ER) | payer MEDICARE, OTHER, SELFPAY ==
[2019-12-12 10:02] VITALS: BMI 23.3
[2020-01-02 13:44] VITALS: BP 96/24; PULSE 94; RESP 16; TEMP 36.1; O2SAT 99; BMI 22.4
--- NOTE | 2020-01-02 14:08 | EKG12_ITS ---
Test Reason : JW Blood Pressure : / mmHG Vent. Rate : 084 BPM Atrial Rate : 084 BPM P-R Int : 182 ms QRS Dur : 082 ms QT Int : 360 ms P-R-T Axes : 049 -37 072 degrees QTc Int : 425 ms Normal sinus rhythm Possible Left atrial enlargement Left axis deviation Inferior infarct , age undetermined Anteroseptal infarct , age undetermined Abnormal ECG Confirmed by ELIZA COYLE, LUCY ([id number]), market editor EDIS WEAVER ([id number]) on 01/05/2020 2:49:16 PM Referred By: SOB Confirmed By:ANGELLA KAY MD
--- NOTE | 2020-01-02 14:11 | ED.VIS.DYS ---
History of Present Illness <Reilly Lang - Last Filed: 01/02/20 14:55> Informant: Patient, Spouse/S.O. Onset: Days - 5 days Activity at onset: Exertion, Light Activity Timing: Continuous Quality: Dyspnea on exertion, Orthopnea Current Severity: Severe Maximum Severity: Severe Worsened by: Exertion, Lying flat Relieved by: Rest Associated Symptoms: Clear sputum, Cough. Negative for: Bloody Sputum, Chills, Ear pain, Fever, Green sputum, Post-nasal drainage, Rhinorrhea, Sore throat, Sweats, White sputum, Yellow sputum Chest Pain: None Narrative: 79-year-old female with a history of cardiac amyloidosis presents to the emergency department with shortness of breath. Patient saw her behavioral health case manager about 5 days ago at [facility] and she states that they had increased her diuretics. She states that she still has been having progressively worse shortness of breath especially with exertion. Her states that she gets short of breath just walking across the room at their house. She has not had a cough. She did not have chest pain. She has no leg pain or swelling. No fevers vomiting or diarrhea. She is not lightheaded or dizzy. She is been compliant with her medications. She had a negative stress test last week. PE Risk Factors: Negative for: Cancer, OCP + Smoking + > 35, Prior DVT or PE, Recent immobilization, Recent surgery, Recent travel Prior similar symptoms: Yes Recent Illness/Hospitalization: No <Lamine Lopez - Last Filed: 01/02/20 15:44> Chief Complaint: General Illness Past Medical History - Family History Paternal Family History: Family History (Last Reviewed 07/03/19 @ 13:27 by Alison Martínez) Mother Colon cancer Brother Myeloma Father Heart disease <Reilly Lang - Last Filed: 01/02/20 14:55> Prior records reviewed: Yes Past Medical History: - - Cardiac amyloidosis Surgical History: herniorrhaphy, - - Cardiac catheterization, total hip arthroplasty, Smoking Status: Never smoker - Family History Paternal Family History: Family History (Last Reviewed 07/03/19 @ 13:27 by Alison Martínez) Mother Colon cancer Brother Myeloma Father Heart disease Family History: Reports: Heart Disease <Lamine Lopez - Last Filed: 01/02/20 15:44> - Allergies and Home Meds Allergies/Adverse Reactions: Allergies Iodinated Contrast Media [Iodinated Contrast- Oral and IV Dye] Allergy (Severe, Verified 01/02/20 13:44) Hives iodine Allergy (Verified 01/02/20 13:44) Anaphylaxis Primary Care Physician: Radha Mcrae MD [Primary Care Provider] - Review of Systems All systems negative except as indicated General: Denies: Chills, Fever, Sweats Eyes: Denies: Visual changes - bilaterally, Diplopia ENT: Denies: Rhinorrhea, Sore throat Cardiovascular: Denies: Chest pain, Palpitations Respiratory: Reports: Dyspnea, Cough, Sputum, Dyspnea on exertion, Orthopnea. Denies: Paroxysmal nocturnal dyspnea Gastrointestinal: Denies: Abdominal pain, Nausea, Vomiting, Diarrhea, Melena, Hematochezia Genitourinary: Denies: Dysuria, Hematuria, Frequency Musculoskeletal: Denies: Back pain, Extremity Pain Skin: Denies: Rash, Wounds Neurological: Denies: Headache, Weakness, Numbness <Lamine Lopez - Last Filed: 01/02/20 15:44> Physical Exam Vital Signs/Narrative: Vital Signs Temp Pulse Resp BP Pulse Ox 01/02/20 13:44 97 F L 94 16 96/24 L 99 <Reilly Lang - Last Filed: 01/02/20 14:55> Vital Signs/Narrative: Vital Signs Temp Pulse Resp BP Pulse Ox 01/02/20 13:44 97 F L 94 16 96/24 L 99 Inital Vital Signs reviewed: Yes General: Well nourished, Well developed, No Acute Distress Head: Normocephalic, Atraumatic Eyes: Perrl, EOMI ENT: Moist mucous membranes, No rhinorrhea Neck: Supple, Nontender Cardiovascular: Regular rate, Regular rhythm, No murmurs Respiratory: No distress, CTA bilaterally, Chest nontender Abdomen: Soft, Nontender, Nondistended, Normal bowel sounds Back: Nontender, Normal Inspection Extremities: Nontender, No edema. 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 Patient has a history of amyloidosis and CHF. Cared for primarily at [facility]. Recently had her 1 diuretic doubled. Complaining of exertional shortness of breath. Denies any swelling to her legs. No fever or chills. No chest pain. Well-appearing older female accompanied by her . Vital signs stable and afebrile. Patient does not look septic or toxic. Pulse ox 99% on room air. HEENT exam unremarkable. Neck nontender no lymphadenopathy. No JVD. Lungs clear to auscultation bilaterally. Heart regular rhythm with 4-6 murmur. Abdomen soft nontender. Normal bowel sounds no peritoneal signs. Extremities moves all 4. Calves are nontender without edema or cords. Neurologically is awake and alert. No focal motor deficit. Patient undergo a work-up for exertional dyspnea. Clinically she looks well at this time. <Reilly Lang - Last Filed: 01/02/20 14:55> Chest X-Ray - ED: 2 View, Read by ED Physician, Read by Radiologist, No Acute Disease - Rhythm Strip Rhythm Strip: Sinus Rhythm Rate: 80 Ectopy: None - EKG Initial EKG Interpretation: Sinus Rhythm, No Acute Injury Pattern Prior: Unchanged Repeat Evaluation: Improved With Ambulation: Asymptomatic - Medical Decision Making EKG was sinus rhythm. Vital signs are stable. Laboratory work-up shows a troponin of 0.08 and a BNP of 338. Chest x-ray unremarkable. Rest of her labs remarkable for creatinine of 1.5 which is up from her baseline around 1 likely from the increase of her diuretic. Patient reassured. We will have her cut back on her torsemide until Sunday when she can see her behavioral health case manager. Told to increase fluid intake at home. Return precautions given. She is agreeable with plan and all questions were answered. <Lamine Lopez - Last Filed: 01/02/20 15:44> ED Disposition <Reilly Lang - Last Filed: 01/02/20 14:55> <Lamine Lopez - Last Filed: 01/02/20 15:44> - Plan for ED Patient: Disposition: Home or Assisted Living Diagnosis: Dyspnea, Dehydration, BRIANA (acute kidney injury), Wild-type transthyretin-related (ATTR) amyloidosis Instructions: ED Dehydration Adult Referrals: Radha Mcrae MD [Primary Care Provider] - Additional Instructions: Follow-up with Dr. Leal. Call his office on Sunday. For the next 3 days decrease her dose of torsemide to 10 mg daily and follow-up with your behavioral health case manager
--- NOTE | 2020-01-02 14:35 | RAD_ITS ---
STUDY: X-RAY CHEST REASON FOR EXAM: Female, 79 years old. PT PRESENTS WITH SOB, GENERALIZED WEAKNESS, AND 5 LB WEIGHT LOSS. RECENTLY HAD DIURETIC DOSAGE CHANGED. TECHNIQUE: PA and lateral views of the chest. COMPARISON: Comparison is made with prior study dated 11/10/2019. FINDINGS: EKG electrodes are seen. Hyperinflation. The lungs are clear. There is no demonstrated pleural abnormality. Normal size heart. Normal mediastinum and ricci. Normal visualized pulmonary arteries. There is atherosclerotic tortuosity of the aortic arch and descending thoracic aorta. There are diffuse degenerative changes of the visualized thoracic spine. There is degenerative osteoarthritis of the bilateral shoulders. There is no demonstrated abnormality of the visualized soft tissue structures of the upper abdomen. RAD/Chest PA and Lateral IMPRESSION: Hyperinflation. No acute abnormality is seen. Electronically Signed: Paulo Anne, at 15:00 EDT , Service support ,
[2020-01-02 14:52] LABS: Absolute Lymphocyte Count 1.51 X10^3/uL (0.83-4.51); Absolute Neutrophil Count 8.6 X10^3/uL (2.0-7.7); Basophil# 0.03 X10^3/uL; Basophil% 0.3 % (0-1); Eosinophil# 0.12 X10^3/uL; Hematocrit 54.9 % (37-47); Hemoglobin 17.8 g/dL (12.0-15.0); Lymphocyte # 1.51 X10^3/ul (4.0); Lymphocyte % 12.8 % (19-41); Mean Corp Hgb Conc 32.4 g/dL (32-36); Mean Corpuscular Hgb 28.9 pg (27.0-32.0); Mean Corpuscular Volume 89.1 fL (81-99); Mean Platelet Vol. 9.2 fl (6.2-12.0); Monocyte# 1.43 X10^3/uL; Monocyte% 12.1 % (0-10); NRBC Flagged by Analyzer 0 % (0-5); Neutrophil # 8.56 X10^3/uL (2.7-7.7); Neutrophil % 72.2 % (47-70); Platelet Count 279 K/mm3 (150-450); RBC Distribution Width CV 12.4 % (11.6-14.6); RBC Distribution Width SD 40.9 fl (35.1-43.9); Red Blood Count 6.16 M/mm3 (4.2-5.4); White Blood Count 11.8 K/mm3 (4.4-11.0)
[2020-01-02 15:11] LABS: Anion Gap 7 (5-15); BUN 47 mg/dL (7-18); BUN/Creat Ratio 29.6 RATIO (10-20); Calcium,Total 8.7 mg/dL (8.5-10.1); Chloride 104 mmol/L (98-107); Creatinine, Serum 1.59 mg/dL (0.55-1.02); EST Glomerular Filtration Rate 33 mL/min (>60); Est Glom Filt Rate - Afr Amer 40 mL/min (>60); Estimated Creatinine Clearance 25.82 ml/min; Glucose 90 mg/dL (74-106); Potassium 4.8 mmol/L (3.5-5.1); Sodium Level 133 mmol/L (136-145)
[2020-01-02 15:27] LABS: BNP,B-Type NATRIURETIC PEPTIDE 237.3 pg/mL (0-100)
[2020-01-02 15:50] VITALS: BP 134/62; PULSE 82; RESP 18; O2SAT 95
== END 2020-01-02 15:56 | disposition home or self-care (01) ==
PROVIDERS: Emergency Provider Physician Assistant Medical; PCP Internal Medicine
DX: R06.00 Dyspnea, unspecified (principal); E86.0 Dehydration; N17.9 Acute kidney failure, unspecified; E85.82 Wild-type transthyretin-related (ATTR) amyloidosis
CPT/HCPCS: 71046; 80048; 83880; 84484; 85025; 93005; 99284; A4216

== ENCOUNTER → 2020-01-23 09:15 | Outpatient (CLI) | payer MEDICARE, OTHER, SELFPAY ==
[2020-01-07 14:31] VITALS: BMI 22.6
[2020-01-19 12:54] VITALS: BMI 22.6
--- NOTE | 2020-01-25 12:23 | PFT ---
INTRODUCTION: The patient is a 79-year-old female that presents for pulmonary function studies secondary to a diagnosis of shortness of breath. Respiratory therapy reports good patient effort. Bronchodilators were used during testing. INTERPRETATION: Forced expiration spirometry demonstrates no evidence of a large airways obstructive ventilatory defect. There was no significant response to aerosolized bronchodilators. Spirograms are of good quality and plateau normally. Body plethysmography was performed and reveals lung volumes to be within normal limits. Diffusing capacity by single breath CO is at the lower limits of normal. IMPRESSION: Grossly normal pulmonary function studies with diffusing capacity at the lower limits of normal.
== END ==
PROVIDERS: PCP Internal Medicine; Referring Provider Nurse Practitioner Family; Visit Provider Nurse Practitioner Family
DX: E85.82 Wild-type transthyretin-related (ATTR) amyloidosis (principal); I42.2 Other hypertrophic cardiomyopathy; R06.02 Shortness of breath
CPT/HCPCS: 94060; 94726; 94729

== ENCOUNTER → 2020-07-14 14:14 | Outpatient (CLI) | payer MEDICARE, OTHER, SELFPAY ==
[2020-07-14 13:23] VITALS: BMI 23.6
[2020-07-14 16:19] LABS: Absolute Lymphocyte Count 1.87 X10^3/uL (0.83-4.51); Absolute Neutrophil Count 2.3 X10^3/uL (2.0-7.7); Basophil# 0.03 X10^3/uL; Basophil% 0.6 % (0-1); Eosinophil# 0.14 X10^3/uL; Eosinophils% 2.8 % (0-5); Hematocrit 45.7 % (37-47); Hemoglobin 14.7 g/dL (12.0-15.0); Lymphocyte # 1.87 X10^3/ul (0.83-4.51); Lymphocyte % 37.8 % (19-41); Mean Corp Hgb Conc 32.2 g/dL (32-36); Mean Corpuscular Hgb 29.7 pg (27.0-32.0); Mean Corpuscular Volume 92.3 fL (81-99); Mean Platelet Vol. 9.5 fl (6.2-12.0); Monocyte# 0.59 X10^3/uL; Monocyte% 11.9 % (0-10); NRBC Flagged by Analyzer 0 % (0-5); Neutrophil % 46.5 % (47-70); Platelet Count 255 K/mm3 (150-450); RBC Distribution Width CV 12.7 % (11.6-14.6); Red Blood Count 4.95 M/mm3 (4.2-5.4)
[2020-07-14 16:45] LABS: BNP,B-Type NATRIURETIC PEPTIDE 158.7 pg/mL (0-100)
[2020-07-14 16:57] LABS: Anion Gap 8 (5-15); BUN 24 mg/dL (7-18); BUN/Creat Ratio 21.2 RATIO (10-20); Chloride 105 mmol/L (98-107); Creatinine, Serum 1.13 mg/dL (0.55-1.02); EST Glomerular Filtration Rate 49 mL/min (>60); Est Glom Filt Rate - Afr Amer 60 mL/min (>60); Glucose 92 mg/dL (74-106); Potassium 4.1 mmol/L (3.5-5.1); Sodium Level 141 mmol/L (136-145)
== END ==
PROVIDERS: PCP Internal Medicine; Visit Provider Nurse Practitioner Family
DX: R06.00 Dyspnea, unspecified (principal); R85.82 Anal low risk human papillomavirus (HPV) DNA test positive; I42.2 Other hypertrophic cardiomyopathy; I10 Essential (primary) hypertension
CPT/HCPCS: 36415; 80048; 83880; 85025

== ENCOUNTER → 2020-08-04 10:40 | Outpatient (CLI) | payer MEDICARE, OTHER, SELFPAY ==
[2020-07-15 15:27] VITALS: BMI 22.9
--- NOTE | 2020-08-04 10:45 | CDU_ITS ---
Reason For Study: Dizzeness Rt. Velocities/BP Lt. Velocities/BP Prox CCA 81.2/14.7 cm/sec. Prox CCA 83/22.8 cm/sec. Mid CCA 55.9/13.2 cm/sec. Mid CCA 68.3/16.7 cm/sec. Dist CCA 47.4/9.7 cm/sec. Dist CCA 72/21.6 cm/sec. Prox ICA 45/17.1 cm/sec. Prox ICA 73.2/20.4 cm/sec. Mid ICA 61.6/19.7 cm/sec. Mid ICA 78.1/24.1 cm/sec. Dist ICA 79.9/27.6 cm/sec. Dist ICA 62.1/22.8 cm/sec. Rt. ICA/CCA = 1.43. Lt. ICA/CCA = 1.08. Prox ECA 71.2/11 cm/sec. Prox ECA 62.1/11.8 cm/sec. Rt. Vert. 50.3/16.2 cm/sec. Lt. Vert. 39.6/7.5 cm/sec. Right Extracranial There is intimal thickening but no significant atherosclerotic plaque noted in the right common carotid artery. There is heterogeneous, irregular atherosclerotic plaque noted in the right internal carotid artery. There is no significant atherosclerotic plaque noted in the right external carotid artery. Antegrade flow is noted in the right vertebral artery. Left Extracranial There is intimal thickening but no significant atherosclerotic plaque noted in the left common carotid artery. There is homogeneous, smooth atherosclerotic plaque noted in the left internal carotid artery. There is intimal thickening but no significant atherosclerotic plaque noted in the left external carotid artery. Antegrade flow is noted in the left vertebral artery. There is heterogeneous, irregular atherosclerotic plaque noted in the left bulb. Procedure Carotid Duplex 32555. This is a Carotid Duplex examination using B-mode, color flow and specral Doppler. Exam performed in department. VL/Carotid Duplex Ultrasound Interpretation Summary Heterogenous plaque at the proximal right internal carotid artery with less sahara n 50% stenosis Less than 50% stenosis right external carotid artery Mild irregular plaque left carotid bulb Smooth plaque at the proximal left internal carotid artery with less than 50% s tenosis Less than 50% stenosis left external carotid artery Patent and antegrade vertebral arteries bilaterally Ordering Physician: Darion Santoyo Referring Physician: Radha Mcrae Performed By: Yohana Real RVT and Student
== END ==
PROVIDERS: PCP Internal Medicine; Referring Provider Nurse Practitioner Family; Visit Provider Nurse Practitioner Family
DX: I65.22 Occlusion and stenosis of left carotid artery (principal); R42 Dizziness and giddiness
CPT/HCPCS: 93880

== ENCOUNTER 2021-08-24 13:37 | Emergency (ER) | payer MEDICARE, OTHER, SELFPAY ==
[2021-08-24 13:38] VITALS: BP 144/72; PULSE 78; RESP 14; TEMP 35.7; O2SAT 100; BMI 22.8
--- NOTE | 2021-08-24 14:09 | EDS_ITS ---
HPI <Dr. Fritz Craven MD - Last Filed: 08/24/21 15:30> History of Present Illness Chief Complaint: Weakness Detail of Chief Complaint: Abdominal pain with nausea and vomiting Informant: patient Onset/Context/Timing Onset: Today and Hours (Ate at 0930 and vomited x4 starting at 1030) Context: Sudden Onset Timing: Intermittent Quality: Abdominal pain with nausea and vomiting followed by burning chest pain Location: Generalized Current Severity: Gone Maximum Severity: Severe Worsened by: Patient believes is due to the shredded wheat cereal she ate Relieved by: Nothing specific Associated Symptoms Associated Symptoms: Burning chest discomfort after vomiting Narrative Narrative: Patient is an 80-year-old woman with history of hypertension, amyloidosis, atherosclerotic heart disease, hypertrophic cardiomyopathy and hypothyroidism. She presents because of abdominal pain that started 1 hour after having shredded wheat. She believes that the fiber content was too high for her stomach to tolerate. She vomited 4 times. She states it look like shredded wheat. She then developed a mid chest burning sensation. She denied hematemesis or coffee-ground emesis. She denies constipation or diarrhea. She now reports a fullness and discomfort in the right and left lower quadrant. She denies urologic symptoms. She denies intolerance to greasy or fried foods. She denied any cardiac respiratory symptoms prior to the vomiting. Prior similar symptoms: No Recent Illness/Hospitalization: No PFSH <Dr. Fritz Craven MD - Last Filed: 08/24/21 15:30> PFS Medical History Abdominal pain Abdominal pain Abnormal stress echo Acid reflux Arthritis Atherosclerosis of [place] coronary artery of [place] heart without angina pectoris Back problem Cellulitis of left lower extremity Chest pain Constipation Diverticulitis of sigmoid colon Essential hypertension Gastrointestinal hemorrhage Heart murmur Hemorrhoids History of pulmonary embolus (PE) (~2009) History of venous thrombosis and embolism hx of APLL Hyperlipidemia Hypertrophic cardiomyopathy Hypofibrinogenemia Hypothyroidism LVH (left ventricular 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 Palpitations Personal history of colonic polyps Severe left ventricular hypertrophy Severe mitral regurgitation Thrombophlebitis of superficial veins of left lower extremity Wild-type transthyretin-related (ATTR) amyloidosis Home Medications tramadol 50 mg PO Q6H PRN PRN 05/20/17 [History Last Taken Unknown] levothyroxine 88 mcg tablet 88 mcg PO DAILY tab 05/27/18 [History Last Taken 10/22/19] enoxaparin 60 mg/0.6 mL subcutaneous syringe 60 mg SC DAILY 09/25/18 [History Last Taken 10/20/19] acetaminophen 500 - 1,000 mg PO Q6H PRN PRN 03/03/19 [History Last Taken Unknown] aspirin 81 mg tablet,delayed release 81 mg PO DAILY 12/12/19 [History Last Taken Unknown] tafamidis 61 mg capsule 61 mg PO DAILY 12/12/19 [History Last Taken Unknown] potassium chloride 20 mEq tablet,extended release 20 meq PO DAILY 04/13/20 [History Last Taken Unknown] cholecalciferol (vitamin D3) 125 mcg (5,000 unit) capsule 125 mcg PO DAILY 04/15/20 [History Last Taken Unknown] multivitamin 1 tab PO DAILY 04/15/20 [History Last Taken Unknown] zinc gluconate 30 mg tablet 30 mg PO DAILY 07/14/20 [History Last Taken Unknown] famotidine 20 mg tablet 20 mg PO BID tab 08/13/20 [History Last Taken Unknown] magnesium oxide 400 mg (241.3 mg magnesium) tablet 400 mg PO DAILY 10/25/20 [History Last Taken Unknown] torsemide 20 mg tablet 20 mg PO BID tab 07/25/21 [History Last Taken Unknown] Allergy/AdvReac Type Severity Reaction Status Date / Time Iodinated Contrast Media Allergy Severe Hives Verified 08/24/21 13:38 [Iodinated Contrast- Oral and IV Dye] iodine Allergy Anaphylaxis Verified 08/24/21 13:38 Family History Mother Colon cancer Brother Myeloma Father Heart disease Surgical History History of left heart catheterization (10/22/19) History of left hip replacement History of right hip replacement Hx of arthroscopic knee surgery Hx of bilateral inguinal hernia repair Hx of bladder repair surgery Hx of hysterectomy Hx of partial thyroidectomy Hx of umbilical hernia repair (~2009) Social History Smoking Status: Never smoker second hand exposure: No alcohol intake: never substance use type: does not use caffeine: Yes (very rare) what type of physical activity do you participate in: none frequency: does not exercise seatbelt use: always ROS <Dr. Fritz Craven MD - Last Filed: 08/24/21 15:30> ROS ED Constitutional Constitutional ED: Denies chills, fever(s), subjective, sweats or weight loss Eyes Eyes: Denies blurry vision or change in vision ENT ENT ED: Denies ear pain, rhinorrhea or sore throat Cardiovascular Cardiovascular: Denies chest pain or palpitations Respiratory/Chest Respiratory/Chest: Denies cough, dyspnea or sputum Gastrointestinal Gastrointestinal: Reports abdominal pain, nausea and vomiting; Denies c onstipation, diarrhea or melena Genitourinary Genitourinary ED: Denies dysuria, hematuria or urinary frequency Musculoskeletal Musculoskeletal: Denies arthralgias or myalgias Integumentary Denies Abrasions or rash Neurologic Neurologic: Denies headache(s), paresthesias or weakness Psychiatric Psychiatric: Denies anxiety or depression Endocrine Endocrinology: Reports cold intolerance; Denies polydipsia, polyphagia or polyuria EXAM <Dr. Fritz Craven MD - Last Filed: 08/24/21 15:30> Physical Exam Const Vital Signs: 08/24/21 13:38 08/24/21 14:04 08/24/21 16:12 Temperature 96.2 F L Temperature Source Temporal Pulse Rate 78 75 Respiratory Rate 14 15 Respiratory Effort Normal Non-Labored Respiratory Pattern Normal Blood Pressure 144/72 H 99/63 Blood Pressure Mean 96 75 Pulse Ox 100 93 Oxygen Delivery Method Room Air Room Air Positive well nourished and well developed; Negative for obese General Appearance ED: well developed and NAD; Negative for cyanotic, diaphoretic or pallor Nutritional Appearance: Negative for obese HEENT Reports TM's clear and moist mucous membranes HEENT Narrative: Nares patent. Negative for trauma or tenderness Tympanic Membrane ED: Yes TM's clear Eyes PERRL and EOMs intact bilaterally General Eye ED: Negative for pale conjunctiva or scleral icterus Neck no lymphadenopathy, supple and no JVD Chest Wall inspection of chest normal Resp normal respiratory effort and clear to auscultation bilaterally Cardio regular rate, regular rhythm, S1 normal heart sound, S2 normal heart sound and no murmurs GI normal to inspection, nondistended, normoactive bowel sounds, non-tender and non-distended GI Narrative: Abdomen is not tympanitic to percussion. Her abdominal exam is unremarkable. Palpation: soft Back/Spine no CVA tenderness Extremity normal to inspection General Extremety ED: Negative for edema or tenderness General Extremity: Negative for edema Neuro oriented x3 and no sensory deficits noted Sensorium / Orientation: alert Motor Exam: strength 5/5 throughout Psych mental status grossly normal Skin no rashes or lesions noted and no wounds General Skin Exam: Negative for jaundice or pallor <Dr. Perfecto Martinez MD - Last Filed: 08/24/21 17:44> Physical Exam Const Vital Signs: 08/24/21 13:38 08/24/21 14:04 08/24/21 16:12 Temperature 96.2 F L Temperature Source Temporal Pulse Rate 78 75 Respiratory Rate 14 15 Respiratory Effort Normal Non-Labored Respiratory Pattern Normal Blood Pressure 144/72 H 99/63 Blood Pressure Mean 96 75 Pulse Ox 100 93 Oxygen Delivery Method Room Air Room Air [facility] <Dr. Fritz Craven MD - Last Filed: 08/24/21 15:30> [facility] Narrative Medical decision making narrative: Patient presents with abdominal discomfort nausea vomiting. Suspect the burning sensation is due to the vomiting with esophageal irritation. CBC was obtained to assess for anemia. Basic metabolic panel to assess renal function electrolytes. Patient will be observed and reevaluated. Patient was informed of her results. Patient with nausea vomiting abdominal pain uncertain etiology. Patient has chronic renal insufficiency. The heartburn is due to the nausea and vomiting. There is no concern for Naila- Valle tear or Boerhaave syndrome. Patient now has dry heaves during exit interview. She complains of upper quadrant abdominal pain. She has a clinical Yanez sign which was not present initially. We will obtain an ultrasound of the gallbladder. Disposition be made by Dr. Gaytan. Lab Data Attestation: I reviewed the patient's lab results. Lab results narrative: Laboratory results are remarkable for a creatinine of 1.23 with a GFR of 45. Glucose slightly elevated 139. Labs: Laboratory Results - last 24 hr 08/24/21 08/24/21 14:00 14:00 WBC 7.6 RBC 5.18 Hgb 15.4 H Hct 47.3 H MCV 91.3 MCH 29.7 MCHC 32.6 RDW Std Deviation 42.5 RDW Coeff of Rashmi 12.8 Plt Count 240 MPV 9.3 Immature Gran % (Auto) 0.400 Neut % (Auto) 73.0 H Lymph % (Auto) 16.4 L [place] % (Auto) 9.0 Eos % (Auto) 0.8 Baso % (Auto) 0.4 Absolute Neuts (auto) 5.5 Absolute Lymphs (auto) 1.24 Nucleated RBC % 0 Sodium 139 Potassium 3.8 Chloride 105 Carbon Dioxide 28.0 Anion Gap 6 BUN 27 H Creatinine 1.23 H Estim Creat Clear Calc 32.83 Est GFR (MDRD) Af Amer 54 L Est GFR (MDRD) Non-Af 45 L BUN/Creatinine Ratio 22.0 H Glucose 139 H Calcium 9.5 Total Bilirubin 0.50 AST 56 H ALT 68 H Alkaline Phosphatase 111 Total Protein 6.8 Albumin 3.7 Globulin 3.1 Albumin/Globulin Ratio 1.2 Lipase 125 Radiography Diagnostic Testing: Clinical Impression(s) from Imaging Studies Gallbladder Ultrasound 08/24/21 15:27 IMPRESSION: Gallbladder sludge and tiny stones. No sonographic evidence of acute cholecystitis. No biliary dilatation. Electronically Signed: Dontae Padilla MD at 17:08 EDT , <Dr. Perfecto Martinez MD - Last Filed: 08/24/21 17:44> [facility] Narrative Medical decision making narrative: Ultrasound showed some sludge but no sign of acute cholecystitis. I went talk to the patient. She is totally asymptomatic. She has no nausea no pain no discomfort she feels much better now. Repeat abdominal exam shows no area of tenderness whatsoever. Her bowel sounds seem normal. She is comfortable going home at this time. We discussed specific reasons to return and bland diet. Since her symptoms are totally resolved I do not think we need to do further imaging at this time. Lab Data Labs: Laboratory Results - last 24 hr 08/24/21 08/24/21 14:00 14:00 WBC 7.6 RBC 5.18 Hgb 15.4 H Hct 47.3 H MCV 91.3 MCH 29.7 MCHC 32.6 RDW Std Deviation 42.5 RDW Coeff of Rashmi 12.8 Plt Count 240 MPV 9.3 Immature Gran % (Auto) 0.400 Neut % (Auto) 73.0 H Lymph % (Auto) 16.4 L [place] % (Auto) 9.0 Eos % (Auto) 0.8 Baso % (Auto) 0.4 Absolute Neuts (auto) 5.5 Absolute Lymphs (auto) 1.24 Nucleated RBC % 0 Sodium 139 Potassium 3.8 Chloride 105 Carbon Dioxide 28.0 Anion Gap 6 BUN 27 H Creatinine 1.23 H Estim Creat Clear Calc 32.83 Est GFR (MDRD) Af Amer 54 L Est GFR (MDRD) Non-Af 45 L BUN/Creatinine Ratio 22.0 H Glucose 139 H Calcium 9.5 Total Bilirubin 0.50 AST 56 H ALT 68 H Alkaline Phosphatase 111 Total Protein 6.8 Albumin 3.7 Globulin 3.1 Albumin/Globulin Ratio 1.2 Lipase 125 Radiography Diagnostic Testing: Clinical Impression(s) from Imaging Studies Gallbladder Ultrasound 08/24/21 15:27 IMPRESSION: Gallbladder sludge and tiny stones. No sonographic evidence of acute cholecystitis. No biliary dilatation. Electronically Signed: Dontae Padilla MD at 17:08 EDT , Discharge Plan Triage Chief Complaint: Weakness ED Provider: Fritz Craven Dx/Rx/DC Orders Clinical Impression: Abdominal pain in female, Nausea & vomiting, Chronic renal insufficiency Instructions: ED Renal Insufficiency, ED Abd Pain Unknown ... Prescriptions: No Action enoxaparin [Lovenox] 60 mg/0.6 mL syringe 60 mg SC DAILY RF: 0 aspirin [Adult Aspirin Regimen] 81 mg tablet,delayed release (DR/EC) 81 mg PO DAILY RF: 0 tafamidis 61 mg capsule 61 mg PO DAILY RF: 0 magnesium oxide 400 mg (241.3 mg magnesium) tablet 400 mg PO DAILY RF: 0 cholecalciferol (vitamin D3) 125 mcg (5,000 unit) capsule 125 mcg PO DAILY RF: 0 multivitamin Tablet 1 tab PO DAILY RF: 0 zinc gluconate 30 mg tablet 30 mg PO DAILY RF: 0 levothyroxine 88 mcg tablet 88 mcg PO DAILY RF: 0 tramadol 50 MG tablet 50 mg PO Q6H PRN PRN (Reason: Pain) RF: 0 acetaminophen 500 MG tablet 500 - 1,000 mg PO Q6H PRN PRN (Reason: Pain Or Fever) RF: 0 famotidine 20 mg tablet 20 mg PO BID RF: 0 potassium chloride 20 mEq tablet extended release 20 meq PO DAILY RF: 0 torsemide 20 mg tablet 20 mg PO BID RF: 0 Primary Care Provider: Radha Mcrae Referrals: Radha Mcrae MD [Primary Care Provider] - 3-5 Days Disposition Disposition: Home, Self Care
[2021-08-24 14:12] LABS: Absolute Lymphocyte Count 1.24 X10^3/uL (0.83-4.51); Absolute Neutrophil Count 5.5 X10^3/uL (2.0-7.7); Basophil# 0.03 X10^3/uL; Basophil% 0.4 % (0-1); Eosinophil# 0.06 X10^3/uL; Eosinophils% 0.8 % (0-5); Hematocrit 47.3 % (37-47); Hemoglobin 15.4 g/dL (12.0-15.0); Lymphocyte # 1.24 X10^3/ul (0.83-4.51); Lymphocyte % 16.4 % (19-41); Mean Corp Hgb Conc 32.6 g/dL (32-36); Mean Corpuscular Hgb 29.7 pg (27.0-32.0); Mean Corpuscular Volume 91.3 fL (81-99); Mean Platelet Vol. 9.3 fl (6.2-12.0); Monocyte# 0.68 X10^3/uL; NRBC Flagged by Analyzer 0 % (0-5); Neutrophil # 5.54 X10^3/uL (2.7-7.7); Platelet Count 240 K/mm3 (150-450); RBC Distribution Width CV 12.8 % (11.6-14.6); RBC Distribution Width SD 42.5 fl (35.1-43.9); Red Blood Count 5.18 M/mm3 (4.2-5.4); White Blood Count 7.6 K/mm3 (4.4-11.0)
[2021-08-24 14:23] LABS: ALB/GLOB Ratio 1.2 RATIO (0.9-2.4); AST(SGOT) 56 U/L (15-37); Alanine Aminotransfer ALT/SGPT 68 U/L (13-56); Albumin, Serum 3.7 g/dL (3.2-5.0); Alkaline Phosphatase 111 U/L (45-117); Anion Gap 6 (5-15); BUN 27 mg/dL (7-18); Calcium,Total 9.5 mg/dL (8.5-10.1); Chloride 105 mmol/L (98-107); Creatinine, Serum 1.23 mg/dL (0.55-1.02); EST Glomerular Filtration Rate 45 mL/min (>60); Est Glom Filt Rate - Afr Amer 54 mL/min (>60); Estimated Creatinine Clearance 32.83 ml/min; Globulin 3.1 g/dL (2.2-4.2); Glucose 139 mg/dL (74-106); Lipase 125 U/L (73-393); Potassium 3.8 mmol/L (3.5-5.1); Protein, Total 6.8 g/dL (6.4-8.2); Sodium Level 139 mmol/L (136-145)
[2021-08-24] MEDS: Ondansetron 4 MG/2 ML Vial IV (14:40)
--- NOTE | 2021-08-24 15:27 | US_ITS ---
STUDY: ABDOMINAL ULTRASOUND - RIGHT UPPER QUADRANT REASON FOR VISIT: Female, 80 years old Right upper quadrant pain with nausea and vomiting TECHNIQUE: Ultrasound evaluation of the right upper quadrant was performed with real-time and static zhao-scale imaging. TECHNICAL QUALITY: Adequate. COMPARISON: None. FINDINGS: Visualized liver parenchyma shows homogeneous echotexture. Sludge and multiple tiny stones are noted in the gallbladder. No gallbladder wall thickening or pericholecystic fluid is seen. Sonographic Yanez''s sign has been reported negative. Common bile duct measures 0.5 cm in diameter. Visualized pancreatic head and body and portal vein are unremarkable. There is a 2.0 x 2.1 cm simple cyst in the right kidney. No free fluid is seen in the Diaz''s pouch. US/Gallbladder IMPRESSION: Gallbladder sludge and tiny stones. No sonographic evidence of acute cholecystitis. No biliary dilatation. Electronically Signed: Dontae Padilla MD at 17:08 EDT ,
[2021-08-24] MEDS: Morphine 4 MG/ML Syringe IV (15:42)
[2021-08-24] MEDS: Metoclopramide 10 MG/2 ML Vial IV (15:42)
[2021-08-24 16:12] VITALS: BP 99/63; PULSE 75; RESP 15; O2SAT 93
== END 2021-08-24 17:51 | disposition home or self-care (01) ==
PROVIDERS: Emergency Provider Emergency Medicine; PCP Internal Medicine; Visit Provider Emergency Medicine
DX: R10.9 Unspecified abdominal pain (principal); R11.2 Nausea with vomiting, unspecified; N18.9 Chronic kidney disease, unspecified; I25.10 Atherosclerotic heart disease of native coronary artery without angina pectoris; Z86.711 Personal history of pulmonary embolism
CPT/HCPCS: 76705; 80053; 83690; 85025; 96374; 96375; 99283; A4216; J2405

== ENCOUNTER 2021-09-12 14:23 | Emergency (ER) | payer MEDICARE, OTHER, SELFPAY ==
[2021-09-12 14:24] VITALS: BP 146/77; PULSE 98; RESP 20; TEMP 36.6; O2SAT 96; BMI 22.9
--- NOTE | 2021-09-12 14:36 | RAD_ITS ---
STUDY: X-RAY CHEST REASON FOR EXAM: Female, 80 years old. Chest pain TECHNIQUE: Single AP portable view of the chest. COMPARISON: Comparison is made with prior study dated 11/10/2019. FINDINGS: EKG electrodes are seen. The lungs are clear and expanded. There is no demonstrated pleural abnormality. Normal size heart. Normal mediastinum and ricci. Normal visualized pulmonary arteries. There is atherosclerotic tortuosity of the aortic arch and descending thoracic aorta. There are diffuse degenerative changes of the visualized thoracic spine. Normal visualized ribs, clavicles, and shoulders. There is no demonstrated abnormality of the visualized soft tissue structures of the upper abdomen. RAD/Chest 1 View (Portable) IMPRESSION: Hyperinflation. The lungs are clear. Electronically Signed: Paulo Anne MD at 15:07 EDT ,
--- NOTE | 2021-09-12 14:36 | EKG12_ITS ---
Test Reason : CP Blood Pressure : / mmHG Vent. Rate : 097 BPM Atrial Rate : 097 BPM P-R Int : 208 ms QRS Dur : 092 ms QT Int : 360 ms P-R-T Axes : 057 -29 081 degrees QTc Int : 457 ms Normal sinus rhythm Inferior infarct , age undetermined Anterior infarct , age undetermined Abnormal ECG Confirmed by SHAMA COYLE, DEMETRA ([id number]), editorial intern EDIS WEAVER ([id number]) on 09/14/2021 9:51:04 AM Referred By: ROSEMARY Confirmed By:DEMETRA SESAY MD
[2021-09-12 14:54] LABS: International Normalized Ratio 1.1
[2021-09-12 14:55] LABS: Absolute Lymphocyte Count 2.44 X10^3/uL (0.83-4.51); Absolute Neutrophil Count 2.5 X10^3/uL (2.0-7.7); Basophil# 0.02 X10^3/uL; Basophil% 0.3 % (0-1); Eosinophil# 0.09 X10^3/uL; Eosinophils% 1.6 % (0-5); Hematocrit 46.6 % (37-47); Hemoglobin 15.2 g/dL (12.0-15.0); Lymphocyte # 2.44 X10^3/ul (0.83-4.51); Lymphocyte % 42.6 % (19-41); Mean Corp Hgb Conc 32.6 g/dL (32-36); Mean Corpuscular Hgb 29.7 pg (27.0-32.0); Mean Corpuscular Volume 91.2 fL (81-99); Mean Platelet Vol. 9.5 fl (6.2-12.0); Monocyte# 0.65 X10^3/uL; Monocyte% 11.3 % (0-10); NRBC Flagged by Analyzer 0 % (0-5); Neutrophil # 2.51 X10^3/uL (2.7-7.7); Neutrophil % 43.9 % (47-70); Platelet Count 252 K/mm3 (150-450); RBC Distribution Width CV 12.6 % (11.6-14.6); Red Blood Count 5.11 M/mm3 (4.2-5.4); White Blood Count 5.7 K/mm3 (4.4-11.0)
[2021-09-12 15:00] VITALS: BP 131/55; PULSE 82; RESP 16; O2SAT 94
[2021-09-12 15:01] LABS: Anion Gap 5 (5-15); BUN 22 mg/dL (7-18); BUN/Creat Ratio 17.1 RATIO (10-20); Calcium,Total 9.1 mg/dL (8.5-10.1); Chloride 107 mmol/L (98-107); Creatinine, Serum 1.29 mg/dL (0.55-1.02); EST Glomerular Filtration Rate 42 mL/min (>60); Est Glom Filt Rate - Afr Amer 51 mL/min (>60); Glucose 119 mg/dL (74-106); Potassium 3.5 mmol/L (3.5-5.1); Sodium Level 142 mmol/L (136-145); Troponin-I HS (w/2H Reflex) 36 pg/mL (3.0-54.0)
--- NOTE | 2021-09-12 15:08 | ED.VIS.CHEST ---
HPI History of Present Illness Chief Complaint: Chest Pain Narrative Narrative: 80-year-old female with history of hypertrophic cardiomyopathy, CAD, cardiac stent in LAD, hypertension, hyperlipidemia, mitral regurgitation, PE currently on Lovenox presenting with chest pain. She states this retrosternal. It sometimes feels sharp in nature. It radiates to her back at times. She states when she leans back to sit in a chair she has more pain in her chest. She denies a ripping or tearing sensation. No black or bloody stools. She states she is mildly short of breath. PFSH [facility] Medical History Abdominal pain Abdominal pain Abnormal stress echo Acid reflux Arthritis Atherosclerosis of [place] coronary artery of [place] heart without angina pectoris Back problem Cellulitis of left lower extremity Chest pain Constipation Diverticulitis of sigmoid colon Essential hypertension Gastrointestinal hemorrhage Heart murmur Hemorrhoids History of pulmonary embolus (PE) (~2009) History of venous thrombosis and embolism hx of APLL Hyperlipidemia Hypertrophic cardiomyopathy Hypofibrinogenemia Hypothyroidism LVH (left ventricular 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 Palpitations Personal history of colonic polyps Severe left ventricular hypertrophy Severe mitral regurgitation Thrombophlebitis of superficial veins of left lower extremity Wild-type transthyretin-related (ATTR) amyloidosis Home Medications tramadol 50 mg PO Q6H PRN PRN 05/20/17 [History Last Taken Unknown] levothyroxine 88 mcg tablet 88 mcg PO DAILY tab 05/27/18 [History Last Taken 10/22/19] enoxaparin 60 mg/0.6 mL subcutaneous syringe 60 mg SC DAILY 09/25/18 [History Last Taken 10/20/19] acetaminophen 500 - 1,000 mg PO Q6H PRN PRN 03/03/19 [History Last Taken Unknown] aspirin 81 mg tablet,delayed release 81 mg PO DAILY 12/12/19 [History Last Taken Unknown] tafamidis 61 mg capsule 61 mg PO DAILY 12/12/19 [History Last Taken Unknown] cholecalciferol (vitamin D3) 125 mcg (5,000 unit) capsule 125 mcg PO DAILY 04/15/20 [History Last Taken Unknown] zinc gluconate 30 mg tablet 30 mg PO DAILY 07/14/20 [History Last Taken Unknown] famotidine 20 mg tablet 20 mg PO BID tab 05/14/21 [History Last Taken Unknown] torsemide 20 mg tablet 20 mg PO BID tab 07/25/21 [History Last Taken Unknown] Allergy/AdvReac Type Severity Reaction Status Date / Time Iodinated Contrast Media Allergy Severe Hives Verified 08/24/21 13:38 [Iodinated Contrast- Oral and IV Dye] iodine Allergy Anaphylaxis Verified 08/24/21 13:38 Family History Mother Colon cancer Brother Myeloma Father Heart disease Surgical History History of left heart catheterization (10/22/19) History of left hip replacement History of right hip replacement Hx of arthroscopic knee surgery Hx of bilateral inguinal hernia repair Hx of bladder repair surgery Hx of hysterectomy Hx of partial thyroidectomy Hx of umbilical hernia repair (~2009) Social History Smoking Status: Never smoker second hand exposure: No alcohol intake: never substance use type: does not use caffeine: Yes (very rare) what type of physical activity do you participate in: none frequency: does not exercise seatbelt use: always ROS ROS ED Constitutional Constitutional ED: Denies chills or fever(s) Eyes Eyes: Denies blurry vision or change in vision ENT ENT ED: Denies rhinorrhea or sore throat Cardiovascular Cardiovascular: Reports as per HPI Respiratory/Chest Respiratory/Chest: Reports dyspnea; Denies cough or sputum Gastrointestinal Gastrointestinal: Denies abdominal pain, nausea or vomiting Genitourinary Genitourinary ED: Denies dysuria or hematuria Musculoskeletal Musculoskeletal: Denies arthralgias or myalgias Integumentary Denies rash Neurologic Neurologic: Denies headache(s) or weakness Psychiatric Psychiatric: Denies anxiety or depression Endocrine Endocrinology: Denies polydipsia or polyuria EXAM Physical Exam Const Vital Signs: 09/12/21 14:24 09/12/21 15:00 09/12/21 16:00 Temperature 97.9 F Temperature Source Oral Pulse Rate 98 82 70 Respiratory Rate 20 H 16 20 H Blood Pressure 146/77 H 131/55 H 107/63 Blood Pressure Mean 100 80 77 Pulse Ox 96 94 95 Oxygen Delivery Method Room Air Room Air Room Air 09/12/21 17:05 Temperature Temperature Source Pulse Rate 72 Respiratory Rate 20 H Blood Pressure 114/92 H Blood Pressure Mean 99 Pulse Ox 96 Oxygen Delivery Method Room Air Positive well nourished General Appearance ED: NAD; Negative for pallor HEENT normocephalic and atraumatic Eyes PERRL and EOMs intact bilaterally Neck no lymphadenopathy and supple Chest Wall Chest Narrative: Tenderness to palpation over the sternum. No deformity. No ecchymosis. Equal symmetric breath sounds or chest wall rise. Resp normal respiratory effort Effort and Inspection: respiratory distress Cardio regular rate and regular rhythm Neuro oriented x3 and CN's II-XII intact bilaterally Sensorium / Orientation: awake and alert Psych mental status grossly normal Skin no rashes or lesions noted General Skin Exam: Negative for jaundice or pallor Heart Score History: Slightly/Non-Suspicious ECG: Normal Age: >/= 65 years Risk Factors: >/= 3 Risk Factors or History of CAD Score: 4 MDM MDM MDM Narrative Medical decision making narrative: Patient presenting with chest pain which this morning. He describes it is kind of sharp. She also states that when she sits back in a chair that it hurts worse. It is reproducible on examination. Lungs clear to auscultation. EKG is obtained which shows a sinus rhythm with a ventricular rate of 97 bpm without sign of ischemic change or dysrhythmia. Chest x-ray on my interpretation shows no acute cardiopulmonary process. CBC unremarkable. BMP shows creatinine 1.29 which is near baseline. Patient is anticoagulated on Lovenox therefore low suspicion for PE. High-sensitivity troponin is 36. Delta troponin is 39 is no significant interval change. Given negative work-up I feel the patient is able to be discharged home. Impression: 1 chest pain Lab Data Labs: Laboratory Results - last 24 hr 09/12/21 09/12/21 09/12/21 14:37 14:37 14:37 WBC 5.7 RBC 5.11 Hgb 15.2 H Hct 46.6 MCV 91.2 MCH 29.7 MCHC 32.6 RDW Std Deviation 42.0 RDW Coeff of Rashmi 12.6 Plt Count 252 MPV 9.5 Immature Gran % (Auto) 0.300 Neut % (Auto) 43.9 L Lymph % (Auto) 42.6 H Charles % (Auto) 11.3 H Eos % (Auto) 1.6 Baso % (Auto) 0.3 Absolute Neuts (auto) 2.5 Absolute Lymphs (auto) 2.44 Nucleated RBC % 0 PT 14.0 INR 1.1 Sodium 142 Potassium 3.5 Chloride 107 Carbon Dioxide 30.0 Anion Gap 5 BUN 22 H Creatinine 1.29 H Estim Creat Clear Calc 31.30 Est GFR (MDRD) Af Amer 51 L Est GFR (MDRD) Non-Af 42 L BUN/Creatinine Ratio 17.1 Glucose 119 H Calcium 9.1 Troponin I High Sens 36 09/12/21 16:55 WBC RBC Hgb Hct MCV MCH MCHC RDW Std Deviation RDW Coeff of Rashmi Plt Count MPV Immature Gran % (Auto) Neut % (Auto) Lymph % (Auto) Charles % (Auto) Eos % (Auto) Baso % (Auto) Absolute Neuts (auto) Absolute Lymphs (auto) Nucleated RBC % PT INR Sodium Potassium Chloride Carbon Dioxide Anion Gap BUN Creatinine Estim Creat Clear Calc Est GFR (MDRD) Af Amer Est GFR (MDRD) Non-Af BUN/Creatinine Ratio Glucose Calcium Troponin I High Sens 39 Radiography Diagnostic Testing: Clinical Impression(s) from Imaging Studies Chest X-Ray 09/12/21 14:36 IMPRESSION: Hyperinflation. The lungs are clear. Electronically Signed: Paulo Anne MD at 15:07 EDT , Discharge Plan Triage Chief Complaint: Chest Pain ED Provider: Yang Jean-Baptiste Dx/Rx/DC Orders Instructions: ED Chest Pain, Noncardiac Prescriptions: No Action enoxaparin [Lovenox] 60 mg/0.6 mL syringe 60 mg SC DAILY RF: 0 aspirin [Adult Aspirin Regimen] 81 mg tablet,delayed release (DR/EC) 81 mg PO DAILY RF: 0 tafamidis 61 mg capsule 61 mg PO DAILY RF: 0 cholecalciferol (vitamin D3) 125 mcg (5,000 unit) capsule 125 mcg PO DAILY RF: 0 zinc gluconate 30 mg tablet 30 mg PO DAILY RF: 0 levothyroxine 88 mcg tablet 88 mcg PO DAILY RF: 0 tramadol 50 MG tablet 50 mg PO Q6H PRN PRN (Reason: Pain) RF: 0 acetaminophen 500 MG tablet 500 - 1,000 mg PO Q6H PRN PRN (Reason: Pain Or Fever) RF: 0 famotidine 20 mg tablet 20 mg PO BID RF: 0 torsemide 20 mg tablet 20 mg PO BID RF: 0 Primary Care Provider: Radha Mcrae Referrals: Radha Mcrae MD [Primary Care Provider] - Disposition Disposition: Home, Self Care
[2021-09-12 16:00] VITALS: BP 107/63; PULSE 70; RESP 20; O2SAT 95
[2021-09-12 16:41] LABS: Reflex Troponin-HS? (from REC) Y
[2021-09-12 17:05] VITALS: BP 114/92; PULSE 72; RESP 20; O2SAT 96
[2021-09-12 17:30] LABS: Troponin-I HS 39 pg/mL (3.0-54.0)
== END 2021-09-12 17:42 | disposition home or self-care (01) ==
PROVIDERS: Emergency Provider Student in an Organized Health Care Education/Training Program; PCP Internal Medicine; Visit Provider Student in an Organized Health Care Education/Training Program
DX: R07.9 Chest pain, unspecified (principal); I25.10 Atherosclerotic heart disease of native coronary artery without angina pectoris; I10 Essential (primary) hypertension; E03.9 Hypothyroidism, unspecified; Z79.82 Long term (current) use of aspirin; Z79.899 Other long term (current) drug therapy; Z86.711 Personal history of pulmonary embolism
CPT/HCPCS: 71045; 80048; 84484; 85025; 85610; 93005; 99284; A4216

== ENCOUNTER 2022-03-20 12:38 | Emergency (ER) | payer MEDICARE, OTHER, SELFPAY ==
[2022-03-20 12:39] VITALS: BP 143/77; PULSE 91; RESP 14; TEMP 36.2; O2SAT 97; BMI 23.0
[2022-03-20 13:02] LABS: Bacteria 0 SEEN /hpf (None Seen); Mucous, Urine 0 SEEN /hpf (<or=2+); Red Blood Cells-Urine 0 SEEN /hpf (0-5); White Blood Cells 0 SEEN /hpf (0-5)
[2022-03-20 13:37] LABS: Color, Urine Straw (Yellow); Glucose, Dipstick Normal (Normal); Ketone-Dipstick Negative (Negative); Leukocyte Esterase-Dipstick Negative /ul (Negative); Nitrite-Dipstick Negative (Negative); Occult Blood-Urine Negative /ul (Negative); Protein-Dipstick Negative (Negative); Specific Gravity, Urine 1.005 (1.002-1.030); Urine Bilirubin Dipstick Negative (Negative); Urine Clarity Clear (Clear); Urine Urobilinogen Normal (Normal)
[2022-03-20 13:47] LABS: Squamous Epithelial Cells - UA 0-5 SEEN /hpf (5-10)
[2022-03-20 14:06] LABS: Absolute Neutrophil Count 2.1 X10^3/uL (2.0-7.7); Basophil# 0.03 X10^3/uL; Basophil% 0.7 % (0-1); Eosinophil# 0.14 X10^3/uL; Eosinophils% 3.1 % (0-5); Hematocrit 44.6 % (37-47); Hemoglobin 14.5 g/dL (12.0-15.0); Lymphocyte % 35.6 % (19-41); Mean Corp Hgb Conc 32.5 g/dL (32-36); Mean Corpuscular Hgb 29.5 pg (27.0-32.0); Mean Corpuscular Volume 90.8 fL (81-99); Mean Platelet Vol. 9.6 fl (6.2-12.0); Monocyte# 0.62 X10^3/uL; Monocyte% 13.8 % (0-10); NRBC Flagged by Analyzer 0 % (0-5); Neutrophil # 2.08 X10^3/uL (2.7-7.7); Neutrophil % 46.4 % (47-70); Platelet Count 238 K/mm3 (150-450); RBC Distribution Width CV 12.9 % (11.6-14.6); RBC Distribution Width SD 42.6 fl (35.1-43.9); Red Blood Count 4.91 M/mm3 (4.2-5.4); White Blood Count 4.5 K/mm3 (4.4-11.0)
[2022-03-20 14:19] LABS: Anion Gap 5 (5-15); BUN 19 mg/dL (7-18); BUN/Creat Ratio 18.3 RATIO (10-20); Chloride 107 mmol/L (98-107); Creatinine, Serum 1.04 mg/dL (0.55-1.02); EST Glomerular Filtration Rate 54 mL/min (>60); Est Glom Filt Rate - Afr Amer 65 mL/min (>60); Estimated Creatinine Clearance 38.18 ml/min; Glucose 105 mg/dL (74-106); Potassium 3.6 mmol/L (3.5-5.1); Sodium Level 140 mmol/L (136-145)
--- NOTE | 2022-03-20 14:36 | EX.ED.DYSGE1 ---
HPI History of Present Illness Chief Complaint: Abd Pain Narrative Narrative: Patient presents today with intermittent right lower quadrant pain that she has had since February 11. She is getting a cholecystectomy on March [address] [facility] and they wanted her to be evaluated for possible appendicitis before her surgery. She states she was unable to get in with her PCP and was told to come here for evaluation. She does not currently have right lower quadrant pain but states she did have it last night that woke her up. She denies fever, nausea, vomiting, dysuria, hematuria, and stool changes. [facility] Medical History Abdominal pain Abdominal pain Abnormal stress echo Acid reflux Arthritis Atherosclerosis of [place] coronary artery of [place] heart without angina pectoris Back problem Cellulitis of left lower extremity Chest pain Constipation Diverticulitis of sigmoid colon Essential hypertension Gastrointestinal hemorrhage Heart murmur Hemorrhoids History of pulmonary embolus (PE) (~2009) History of venous thrombosis and embolism hx of APLL Hyperlipidemia Hypertrophic cardiomyopathy Hypofibrinogenemia Hypothyroidism LVH (left ventricular 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 Palpitations Personal history of colonic polyps Severe left ventricular hypertrophy Severe mitral regurgitation Thrombophlebitis of superficial veins of left lower extremity Wild-type transthyretin-related (ATTR) amyloidosis Home Medications tramadol 50 mg tablet 50 mg PO Q6H PRN PRN Pain 05/20/17 [History Last Taken Unknown] levothyroxine 88 mcg tablet 88 mcg PO DAILY THYROID 05/27/18 [History Last Taken 10/22/19] enoxaparin 60 mg/0.6 mL subcutaneous syringe (Lovenox) 60 mg subcut DAILY BLOOD THINNER 09/25/18 [History Last Taken 10/20/19] acetaminophen 500 mg tablet 500 - 1,000 mg PO Q6H PRN PRN Pain Or Fever 03/03/19 [History Last Taken Unknown] aspirin 81 mg tablet,delayed release (Adult Aspirin Regimen) 81 mg PO DAILY 12/12/19 [History Last Taken Unknown] tafamidis 61 mg capsule 61 mg PO DAILY 12/12/19 [History Last Taken Unknown] cholecalciferol (vitamin D3) 125 mcg (5,000 unit) capsule 125 mcg PO DAILY 04/15/20 [History Last Taken Unknown] zinc gluconate 30 mg tablet 30 mg PO DAILY 07/14/20 [History Last Taken Unknown] torsemide 20 mg tablet 20 mg PO BID 07/25/21 [History Last Taken Unknown] rosuvastatin 5 mg tablet 5 mg PO DAILY 01/25/22 [History Last Taken Unknown] vitamin A 2,400 mcg capsule 2,400 mcg PO .3XWEEK 01/25/22 [History Last Taken Unknown] Allergy/AdvReac Type Severity Reaction Status Date / Time Iodinated Contrast Media Allergy Severe Hives Verified 03/20/22 12:38 [Iodinated Contrast- Oral and IV Dye] iodine Allergy Anaphylaxis Verified 03/20/22 12:38 Family History Mother Colon cancer Brother Myeloma Father Heart disease Surgical History History of left heart catheterization (10/22/19) History of left hip replacement History of right hip replacement Hx of arthroscopic knee surgery Hx of bilateral inguinal hernia repair Hx of bladder repair surgery Hx of hysterectomy Hx of partial thyroidectomy Hx of umbilical hernia repair (~2009) Social History Smoking Status: Never smoker second hand exposure: No alcohol intake: never substance use type: does not use caffeine: Yes (very rare) what type of physical activity do you participate in: none frequency: does not exercise seatbelt use: always ROS ROS ED Constitutional Constitutional ED: Denies chills, fever(s) or sweats Eyes Eyes: Denies blurry vision or change in vision ENT ENT ED: Denies rhinorrhea or sore throat Cardiovascular Cardiovascular: Denies chest pain, palpitations or racing heartbeat Respiratory/Chest Respiratory/Chest: Denies cough, dyspnea or dyspnea on exertion Gastrointestinal Gastrointestinal: Reports abdominal pain; Denies constipation, diarrhea, nausea or vomiting Genitourinary Genitourinary ED: Denies dysuria, hematuria or urinary frequency Musculoskeletal Musculoskeletal: Denies arthralgias or myalgias Integumentary Denies abscess, Abrasions or rash Neurologic Neurologic: Denies headache(s), paresthesias or weakness Psychiatric Psychiatric: Denies anxiety, depression or suicidal ideation EXAM Physical Exam Const Vital Signs: 03/20/22 12:39 03/20/22 14:56 03/20/22 16:39 Temperature 97.2 F L Temperature Source Temporal Pulse Rate 91 75 87 Respiratory Rate 14 16 16 Blood Pressure 143/77 H 137/85 H 130/74 H Blood Pressure Mean 99 102 92 Pulse Ox 97 97 99 Oxygen Delivery Method Room Air 03/20/22 17:12 Temperature Temperature Source Pulse Rate 76 Respiratory Rate 16 Blood Pressure 140/71 H Blood Pressure Mean Pulse Ox 99 Oxygen Delivery Method Positive well nourished and well developed General Appearance ED: well developed and NAD HEENT Reports moist mucous membranes Negative for trauma or tenderness Eyes PERRL and EOMs intact bilaterally Neck no lymphadenopathy and supple Chest Wall inspection of chest normal and palpation of chest normal Resp normal respiratory effort and clear to auscultation bilaterally Cardio regular rate, regular rhythm and no murmurs GI normal to inspection, nondistended, normoactive bowel sounds and no masses GI Narrative: Tenderness to palpation in the right lower quadrant. Palpation: Negative for guarding or rebound tenderness present Back/Spine Cervical Spine: Negative for cervical spine tenderness Thoracic Spine / Upper Back: Negative for thoracic spinal tenderness Lumbar Spine / Lower Back: Negative for lumbar spinal tenderness Extremity normal to inspection General Extremety ED: Negative for edema General Extremity: Negative for edema Neuro oriented x3, CN's II-XII intact bilaterally and no sensory deficits noted Sensorium / Orientation: alert Motor Exam: strength 5/5 throughout Psych mental status grossly normal Skin no rashes or lesions noted, no wounds and skin turgor normal MDM MDM MDM Narrative Medical decision making narrative: CT of the abdomen and pelvis negative for appendicitis diverticulitis. CT does show some chronic findings such as a simple appearing cyst in the liver and right kidney. Stable left renal cyst. Diverticulosis. Cholelithiasis. CT scan has also been reviewed and interpreted by attending ED physician. Because patient is receiving surgery 03/29 her surgeon wanted her to receive a CT of the abdomen and pelvis due to right lower quadrant pain. Patient will be following up with PCP and surgeon where they can request access of this CT scan. I am comfortable with patient discharging home and patient is comfortable with plan. Lab Data Attestation: I reviewed the patient's lab results. Lab results narrative: CBC unremarkable. BUN 19, creatinine 1.04, GFR 54, AST 43 UA unremarkable. Labs: Laboratory Results - last 24 hr 03/20/22 03/20/22 03/20/22 13:00 14:00 14:00 WBC 4.5 RBC 4.91 Hgb 14.5 Hct 44.6 MCV 90.8 MCH 29.5 MCHC 32.5 RDW Std Deviation 42.6 RDW Coeff of Rashmi 12.9 Plt Count 238 MPV 9.6 Immature Gran % (Auto) 0.400 Neut % (Auto) 46.4 L Lymph % (Auto) 35.6 [place] % (Auto) 13.8 H Eos % (Auto) 3.1 Baso % (Auto) 0.7 Absolute Neuts (auto) 2.1 Absolute Lymphs (auto) 1.60 Nucleated RBC % 0 Sodium 140 Potassium 3.6 Chloride 107 Carbon Dioxide 28.0 Anion Gap 5 BUN 19 H Creatinine 1.04 H Estim Creat Clear Calc 38.18 Est GFR (MDRD) Af Amer 65 Est GFR (MDRD) Non-Af 54 L BUN/Creatinine Ratio 18.3 Glucose 105 Calcium 9.0 Total Bilirubin Direct Bilirubin AST ALT Alkaline Phosphatase Total Protein Albumin Globulin Urine Color Straw Urine Clarity Clear Urine pH 7.0 Ur Specific [place] 1.005 Urine Protein Negative Urine Glucose (UA) Normal Urine Ketones Negative Urine Occult Blood Negative Urine Nitrite Negative Urine Bilirubin Negative Urine Urobilinogen Normal Ur Leukocyte Esterase Negative Urine RBC 0 SEEN Urine WBC 0 SEEN Ur Squamous Epith Cells 0-5 SEEN Urine Bacteria 0 SEEN Urine Mucus 0 SEEN 03/20/22 14:00 WBC RBC Hgb Hct MCV MCH MCHC RDW Std Deviation RDW Coeff of Rashmi Plt Count MPV Immature Gran % (Auto) Neut % (Auto) Lymph % (Auto) [place] % (Auto) Eos % (Auto) Baso % (Auto) Absolute Neuts (auto) Absolute Lymphs (auto) Nucleated RBC % Sodium Potassium Chloride Carbon Dioxide Anion Gap BUN Creatinine Estim Creat Clear Calc Est GFR (MDRD) Af Amer Est GFR (MDRD) Non-Af BUN/Creatinine Ratio Glucose Calcium Total Bilirubin 0.50 Direct Bilirubin 0.15 AST 43 H ALT 43 Alkaline Phosphatase 95 Total Protein 6.8 Albumin 3.7 Globulin 3.1 Urine Color Urine Clarity Urine pH Ur Specific [place] Urine Protein Urine Glucose (UA) Urine Ketones Urine Occult Blood Urine Nitrite Urine Bilirubin Urine Urobilinogen Ur Leukocyte Esterase Urine RBC Urine WBC Ur Squamous Epith Cells Urine Bacteria Urine Mucus Radiography Diagnostic Testing: Clinical Impression(s) from Imaging Studies Abdomen/Pelvis CT 03/20/22 14:42 IMPRESSION: Over time there is been enlargement of a simple appearing cyst in the liver and the right kidney. This is thought to be benign however could consider a routine follow-up ultrasound when appropriate. Stable left renal cysts. There is mild right pelviectasis likely associated with the over distended bladder. The bladder is partially obscured as well as the pelvic structures by bilateral hip arthroplasties. Postoperative change right inguinal region. There is minimal edema or density stranding in the right inguinal region and right groin. There are bilateral right greater than left visualized distended venous varicosities. At the time of this study there is minimal enhancement. These are also partially visualized on the prior study May 20, 2017. Consider follow-up ultrasound if clinically appropriate. Bilateral hip arthroplasties. Abdominal wall surgeries. Prior IVC with dilated prongs without evidence of obstruction of the adjacent small bowel. Constipation diverticulosis no visualized diverticulitis. No appendicitis. Mild distention of the gallbladder cholelithiasis. Within normal limits common duct distention minimal intrahepatic ductal dilatation. Mild cardiac enlargement. Minimal hiatal hernia. Postoperative change bilateral lower quadrants midline pelvis midline mid umbilical region ventral hernia repairs. Degenerative changes of the thoracolumbar spine. Electronically Signed: Gabriela Gardner MD at 16:53 EST Reading Location ID and State: [facility] / [place] Tel , Service support , [place] also reviewed and interpreted by attending ED physician. Discharge Plan Triage Chief Complaint: Abd Pain ED Midlevel Provider: Jenny Villa ED Provider: Reilly Lang Dx/Rx/DC Orders Clinical Impression: Abdominal pain, Abdominal wall hematoma, History of cholelithiasis Instructions: Abdominal Pain Prescriptions: No Action enoxaparin [Lovenox] 60 mg/0.6 mL syringe 60 mg SC DAILY aspirin [Adult Aspirin Regimen] 81 mg tablet,delayed release (DR/EC) 81 mg PO DAILY tafamidis 61 mg capsule 61 mg PO DAILY cholecalciferol (vitamin D3) 125 mcg (5,000 unit) capsule 125 mcg PO DAILY zinc gluconate 30 mg tablet 30 mg PO DAILY vitamin A 2,400 mcg capsule 2,400 mcg PO .3XWEEK rosuvastatin 5 mg tablet 5 mg PO DAILY levothyroxine 88 mcg tablet 88 mcg PO DAILY tramadol 50 MG tablet 50 mg PO Q6H PRN PRN (Reason: Pain) acetaminophen 500 MG tablet 500 - 1,000 mg PO Q6H PRN PRN (Reason: Pain Or Fever) torsemide 20 mg tablet 20 mg PO BID Primary Care Provider: Radha Mcrae Referrals: Radha Mcrae MD [Primary Care Provider] - 5-7 Days Activity Restrictions/Additional Instructions: Please follow-up with PCP. Disposition Disposition: Home, Self Care Discharge Date/Time: 03/20/22 17:13
--- NOTE | 2022-03-20 14:42 | CT_ITS ---
STUDY: CT ABDOMEN AND PELVIS WITH CONTRAST REASON FOR EXAM: Female, 81 years old. RLQ pain RADIATION DOSAGE (If Supplied By Facility): CTDIvol = ( 10.95 ) mGy, DLP = ( 553.78 ) mGycm TECHNIQUE: Transaxial images were obtained from the dome of the diaphragm to the symphysis pubis without oral contrast. IV 100mL Isovue-300 was administered. Sagittal and coronal images were reconstructed. Individualized dose optimization techniques were used for this CT. COMPARISON: 05/20/2017 CT abdomen and pelvis FINDINGS: The visualized lung bases are unremarkable. There is borderline cardiac enlargement. Since prior study there is a greater size of the well circumscribed minimally lobulated cystic mass within the right hepatic lobe now measuring 1.9 x 2.0 cm when it did measure 1.3 x 1.3 cm. The gallbladder is distended and shows a minimal amount of sludge. There is mild intrahepatic ductal dilatation. The common duct measures 5.2 mm. Normal spleen. Normal pancreas. Normal bilateral adrenal glands. There is a right renal cyst measuring 1.9 x 1.5 cm. Slightly larger than the prior study. There is mild right pelviectasis. The bladder is overdistended. There is a stable exophytic cyst left kidney measuring 7.2 x 6 cm. There is a left-sided peripelvic cyst measuring 1.9 cm. There is no visualized hydronephrosis. There is a minimal hiatal hernia. Normal small intestine. There is mild distention of the small bowel. It is noted that there is a visualized IVC filter with the prongs outside the confines of the IVC and possibly adhesed or near the duodenum without rupture or free air or edema. There is moderate stool in the colon. There is diverticulosis without visualized diverticulitis. The appendix is demonstrated image #76 coronal views without evidence of inflammatory change. There is minimal calcification of the distal aorta and the takeoff of the right renal artery. There is a visualized filter, the prongs are sitting outside the confines of the IVC similar to the prior studies. Normal retroperitoneum. The bladder is overdistended. There is atrophy of the uterus. There is a small focus of gas in the left lower abdominal wall suggesting recent injection. There is a visualized small ventral hernia mesh in the midline abdomen. There is multilevel degenerative change in the thoracolumbar spine. At L2-3 L3-L4 and L4-L5 there is moderate neural foramina narrowing moderate to severe central stenosis with facet arthropathy. At L5-S1 there is a broad disc osteophyte vacuum phenomenon. There is multilevel facet arthropathy. There been bilateral hip arthroplasties. There is postoperative change in the anterior midline low pelvis compatible with pelvic for procedure potential hernia repair.. There is a focus of surgical clips in the right inguinal region. In this area there is a hazy focus of postoperative change within the right inguinal region. What is visualized within the right groin is what appears to be venous varicosities right greater than left. CT/Abdomen/Pelvis W IV Cont ONLY IMPRESSION: Over time there is been enlargement of a simple appearing cyst in the liver and the right kidney. This is thought to be benign however could consider a routine follow-up ultrasound when appropriate. Stable left renal cysts. There is mild right pelviectasis likely associated with the over distended bladder. The bladder is partially obscured as well as the pelvic structures by bilateral hip arthroplasties. Postoperative change right inguinal region. There is minimal edema or density stranding in the right inguinal region and right groin. There are bilateral right greater than left visualized distended venous varicosities. At the time of this study there is minimal enhancement. These are also partially visualized on the prior study May 20, 2017. Consider follow-up ultrasound if clinically appropriate. Bilateral hip arthroplasties. Abdominal wall surgeries. Prior IVC with dilated prongs without evidence of obstruction of the adjacent small bowel. Constipation diverticulosis no visualized diverticulitis. No appendicitis. Mild distention of the gallbladder cholelithiasis. Within normal limits common duct distention minimal intrahepatic ductal dilatation. Mild cardiac enlargement. Minimal hiatal hernia. Postoperative change bilateral lower quadrants midline pelvis midline mid umbilical region ventral hernia repairs. Degenerative changes of the thoracolumbar spine. Electronically Signed: Gabriela Gardner MD at 16:53 EST Reading Location ID and State: [facility] / [place] Tel , Service support ,
[2022-03-20 14:56] VITALS: BP 137/85; PULSE 75; RESP 16; O2SAT 97
[2022-03-20] MEDS: MethylPREDNISolone 125 MG/2 ML Vial IV (15:00)
[2022-03-20] MEDS: DiphenhydrAMINE 50 MG/ML Syringe 25 MG IV (15:00)
[2022-03-20 15:25] LABS: AST(SGOT) 43 U/L (15-37); Alanine Aminotransfer ALT/SGPT 43 U/L (13-56); Albumin, Serum 3.7 g/dL (3.2-5.0); Alkaline Phosphatase 95 U/L (45-117); Bilirubin, Direct 0.15 mg/dL (0.00-0.30); Globulin 3.1 g/dL (2.2-4.2); Protein, Total 6.8 g/dL (6.4-8.2)
[2022-03-20 16:39] VITALS: BP 130/74; PULSE 87; RESP 16; O2SAT 99
[2022-03-20 17:12] VITALS: BP 140/71; PULSE 76; RESP 16; O2SAT 99
== END 2022-03-20 17:13 | disposition home or self-care (01) ==
PROVIDERS: Physician Assistant; Emergency Provider Emergency Medicine; PCP Internal Medicine; Visit Provider Emergency Medicine
DX: S30.1XXA Contusion of abdominal wall, initial encounter (principal); N28.1 Cyst of kidney, acquired; R10.31 Right lower quadrant pain; K80.20 Calculus of gallbladder without cholecystitis without obstruction; I25.10 Atherosclerotic heart disease of native coronary artery without angina pectoris; I10 Essential (primary) hypertension; K57.90 Diverticulosis of intestine, part unspecified, without perforation or abscess without bleeding; X58.XXXA Exposure to other specified factors, initial encounter
CPT/HCPCS: 74177; 80048; 80076; 81001; 85025; 96374; 96375; 99283; Q9967; A4216

== ENCOUNTER 2022-05-31 23:12 | Emergency (ER) | payer MEDICARE, OTHER, SELFPAY ==
[2022-05-31 23:12] VITALS: BP 171/82; PULSE 63; RESP 18; TEMP 36.1; O2SAT 99; BMI 22.8
[2022-05-31 23:27] VITALS: BP 161/70; PULSE 63; RESP 20; O2SAT 96
--- NOTE | 2022-05-31 23:41 | EKG12_ITS ---
Test Reason : CP Blood Pressure : / mmHG Vent. Rate : 060 BPM Atrial Rate : 060 BPM P-R Int : 224 ms QRS Dur : 100 ms QT Int : 444 ms P-R-T Axes : 035 -31 089 degrees QTc Int : 444 ms Sinus rhythm with 1st degree A-V block Left axis deviation Left ventricular hypertrophy with repolarization abnormality ( R in aVL , [place] product ) Inferior infarct , age undetermined Anteroseptal infarct , age undetermined Abnormal ECG Confirmed by ELIZA COYLE, LUCY ([id number]), editorial cartoonist EDIS WEAVER ([id number]) on 06/05/2022 9:25:32 AM Referred By: DIMITRIOS Confirmed By:ANGELLA KAY MD
--- NOTE | 2022-05-31 23:42 | EDS_ITS ---
HPI History of Present Illness Chief Complaint: Chest Pain Narrative Narrative: Patient is an 81-year-old female with past medical history of hypertension hypothyroidism mitral regurgitation and cardiac amyloidosis. She states that she is scheduled to have a heart cath at [facility] on June 13 secondary to this history and the fact that her last cath showed a 70% blockage of the LAD. She reports this evening around 5 PM she felt abdominal bloating with mild nausea. She states she was able to lie down and then awoke around 930 and 10 PM and felt some mild vague chest discomfort. She states with this there was no nausea vomiting or diaphoresis or shortness of breath. She states because of her known history she was concerned this could be cardiac in nature and therefore comes to the hospital for evaluation. She states that at time of arrival and the pain is spontaneously improving and almost resolved. She also reports she is on daily Lovenox shots and takes daily aspirin and has done so both today [facility] Medical History Abdominal pain Abdominal pain Abnormal stress echo Acid reflux Arthritis Atherosclerosis of [place] coronary artery of [place] heart without angina pectoris Back problem Cellulitis of left lower extremity Chest pain Constipation Diverticulitis of sigmoid colon Essential hypertension Gastrointestinal hemorrhage Heart murmur Hemorrhoids History of pulmonary embolus (PE) (~2009) History of venous thrombosis and embolism hx of APLL Hyperlipidemia Hypertrophic cardiomyopathy Hypofibrinogenemia Hypothyroidism LVH (left ventricular 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 Palpitations Personal history of colonic polyps Severe left ventricular hypertrophy Severe mitral regurgitation Thrombophlebitis of superficial veins of left lower extremity Wild-type transthyretin-related (ATTR) amyloidosis Home Medications tramadol 50 mg tablet 50 mg PO Q6H PRN PRN Pain 05/20/17 [History Last Taken Unknown] levothyroxine 88 mcg tablet 88 mcg PO DAILY THYROID 05/27/18 [History Last Taken 10/22/19] enoxaparin 60 mg/0.6 mL subcutaneous syringe (Lovenox) 60 mg subcut DAILY BLOOD THINNER 09/25/18 [History Last Taken 10/20/19] acetaminophen 500 mg tablet 500 - 1,000 mg PO Q6H PRN PRN Pain Or Fever 03/03/19 [History Last Taken Unknown] aspirin 81 mg tablet,delayed release (Adult Aspirin Regimen) 81 mg PO DAILY 12/12/19 [History Last Taken Unknown] tafamidis 61 mg capsule 61 mg PO DAILY 12/12/19 [History Last Taken Unknown] cholecalciferol (vitamin D3) 125 mcg (5,000 unit) capsule 125 mcg PO DAILY 04/15/20 [History Last Taken Unknown] zinc gluconate 30 mg tablet 30 mg PO DAILY 07/14/20 [History Last Taken Unknown] torsemide 20 mg tablet 20 mg PO BID 07/25/21 [History Last Taken Unknown] rosuvastatin 5 mg tablet 5 mg PO DAILY 01/25/22 [History Last Taken Unknown] vitamin A 2,400 mcg capsule 2,400 mcg PO .3XWEEK 01/25/22 [History Last Taken Unknown] Allergy/AdvReac Type Severity Reaction Status Date / Time Iodinated Contrast Media Allergy Severe Hives Verified 05/31/22 23:15 [Iodinated Contrast- Oral and IV Dye] iodine Allergy Anaphylaxis Verified 05/31/22 23:15 Family History Mother Colon cancer Brother Myeloma Father Heart disease Surgical History History of left heart catheterization (10/22/19) History of left hip replacement History of right hip replacement Hx of arthroscopic knee surgery Hx of bilateral inguinal hernia repair Hx of bladder repair surgery Hx of hysterectomy Hx of partial thyroidectomy Hx of umbilical hernia repair (~2009) Social History Smoking Status: Never smoker second hand exposure: No alcohol intake: never substance use type: does not use caffeine: Yes (very rare) what type of physical activity do you participate in: none frequency: does not exercise seatbelt use: always ROS ROS ED Constitutional Constitutional ED: Denies chills or fever(s) ENT ENT ED: Denies sore throat Cardiovascular Cardiovascular: Reports chest pain; Denies palpitations or racing heartbeat Respiratory/Chest Respiratory/Chest: Denies cough or dyspnea Gastrointestinal Gastrointestinal: Reports abdominal pain and nausea; Denies diarrhea or vomiting Genitourinary Genitourinary ED: Denies dysuria Musculoskeletal Musculoskeletal: Denies back pain or myalgias Integumentary Denies rash Neurologic Neurologic: Denies headache(s) Hematologic/Lymphatic Hematologic/Lymphatic: Reports easy bleeding and easy bruising EXAM Physical Exam Const Vital Signs: 05/31/22 23:12 05/31/22 23:27 05/31/22 23:28 Temperature 97 F L Temperature Source Temporal Pulse Rate 63 63 Respiratory Rate 18 20 H Respiratory Effort Normal Non-Labored Blood Pressure 171/82 H 161/70 H Blood Pressure Mean 111 100 Pulse Ox 99 96 Oxygen Delivery Method Room Air Room Air 06/01/22 00:12 Temperature Temperature Source Pulse Rate 63 Respiratory Rate 16 Respiratory Effort Blood Pressure 155/72 H Blood Pressure Mean 99 Pulse Ox 99 Oxygen Delivery Method Room Air Positive well nourished and well developed General Appearance ED: well developed Eyes PERRL and EOMs intact bilaterally Neck supple Neck Narrative: No carotid bruit noted Carotid pulses are plus 2 out of 4 bilaterally Resp normal respiratory effort and clear to auscultation bilaterally Cardio regular rate and regular rhythm Rate: other Other Details: Radial pulses are plus 2 out of 4 bilaterally are equal and symmetric GI non-tender and non-distended GI Narrative: Abdomen is soft nontender and nondistended with hyperactive bowel sound. No voluntary guarding or rigidity. No pulsatile mass or fluid wave Auscultation: hyperactive bowel sounds Palpation: soft Extremity normal to inspection Extremity Narrative: No asymmetric edema no pitting edema negative Homans' sign bilaterally Neuro oriented x3 and CN's II-XII intact bilaterally Sensorium / Orientation: alert Psych mental status grossly normal Skin no rashes or lesions noted MDM MDM MDM Narrative Medical decision making narrative: Patient presented to the ER slightly hypertensive but does have a past medical history of this and otherwise with stable vitals. She reported some atypical chest discomfort but because she has a known history of 70% occlusion of her LAD there is concern that she could have had an acute coronary event so basic blood work and a chest x-ray were obtained. As she also stated that she had felt abdominal bloating and nausea there is concern she has some type of infectious process causing her symptoms. The patient's EKG showed sinus rhythm with nonspecific changes which when compared to her EKG from August 2021 is similar nature. Her chest x-ray revealed no acute lung pathology. Her initial troponin was 42 and her 2-hour delta changed by 3 points to a value of 45 which is not clinically significant. Moreover patient has had complete resolution of her chest pain while in the ER. As she takes Lovenox as well as aspirin daily and reported taking those today I felt no need to provide them upon arrival. Therefore at this time as her work-up reveals no signs of lung pathology infectious process or acute cardiac event and patient's had resolution of symptoms she is otherwise safe for discharge. History & Record Review Discussion w/independent historian: Patient and Significant other Lab Data Attestation: I reviewed the patient's lab results. Labs: Laboratory Results - last 24 hr 05/31/22 05/31/22 05/31/22 23:25 23:25 23:25 WBC 6.0 RBC 4.75 Hgb 14.1 Hct 42.9 MCV 90.3 MCH 29.7 MCHC 32.9 RDW Std Deviation 41.8 RDW Coeff of Rashmi 12.6 Plt Count 214 MPV 9.8 Immature Gran % (Auto) 0.300 Neut % (Auto) 39.8 L Lymph % (Auto) 43.7 H [place] % (Auto) 13.1 H Eos % (Auto) 2.8 Baso % (Auto) 0.3 Absolute Neuts (auto) 2.4 Absolute Lymphs (auto) 2.61 Nucleated RBC % 0 PT 15.5 H INR 1.3 APTT 48.5 H Sodium 142 Potassium 3.6 Chloride 105 Carbon Dioxide 30.0 Anion Gap 7 BUN 29 H Creatinine 1.30 H Estim Creat Clear Calc 30.54 Est GFR (MDRD) Af Amer 51 L Est GFR (MDRD) Non-Af 42 L BUN/Creatinine Ratio 22.3 H Glucose 107 H Calcium 9.6 Magnesium 2.2 Troponin I High Sens 42 06/01/22 01:25 WBC RBC Hgb Hct MCV MCH MCHC RDW Std Deviation RDW Coeff of Rashmi Plt Count MPV Immature Gran % (Auto) Neut % (Auto) Lymph % (Auto) [place] % (Auto) Eos % (Auto) Baso % (Auto) Absolute Neuts (auto) Absolute Lymphs (auto) Nucleated RBC % PT INR APTT Sodium Potassium Chloride Carbon Dioxide Anion Gap BUN Creatinine Estim Creat Clear Calc Est GFR (MDRD) Af Amer Est GFR (MDRD) Non-Af BUN/Creatinine Ratio Glucose Calcium Magnesium Troponin I High Sens 45 Radiography Diagnostic Testing: Clinical Impression(s) from Imaging Studies Chest X-Ray 05/31/22 23:50 IMPRESSION: No radiographic evidence of acute cardiopulmonary disease. Electronically Signed: Rula Daniel MD at 0:02 EST , Chest x-ray as interpreted by the emergency medicine physician reveals no acute infiltrate pneumothorax or pleural effusion Differential Diagnosis Chest pain/SOB: pulmonary embolism, ACS and pneumonia Differential Diagnosis: Patient has known history of LAD disease and therefore acute coronary syndrome is first in the differential Differential Diagnosis: Pulmonary embolism and pneumonia are also possible causes of her atypical chest pain but patient does not have a fever or cough and she takes Lovenox daily and therefore PE is low Discharge Plan Triage Chief Complaint: Chest Pain ED Provider: Bebeto Ellis Dx/Rx/DC Orders Clinical Impression: Nonspecific chest pain, Atherosclerosis of [place] coronary artery of [place] heart without angina pectoris, Essential hypertension, 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 Instructions: ED Chest Pain, Uncertain Cause Prescriptions: No Action enoxaparin [Lovenox] 60 mg/0.6 mL syringe 60 mg SC DAILY aspirin [Adult Aspirin Regimen] 81 mg tablet,delayed release (DR/EC) 81 mg PO DAILY tafamidis 61 mg capsule 61 mg PO DAILY cholecalciferol (vitamin D3) 125 mcg (5,000 unit) capsule 125 mcg PO DAILY zinc gluconate 30 mg tablet 30 mg PO DAILY vitamin A 2,400 mcg capsule 2,400 mcg PO .3XWEEK rosuvastatin 5 mg tablet 5 mg PO DAILY levothyroxine 88 mcg tablet 88 mcg PO DAILY tramadol 50 MG tablet 50 mg PO Q6H PRN PRN (Reason: Pain) acetaminophen 500 MG tablet 500 - 1,000 mg PO Q6H PRN PRN (Reason: Pain Or Fever) torsemide 20 mg tablet 20 mg PO BID Primary Care Provider: Radha Mcrae Referrals: Radha Mcrae MD [Primary Care Provider] - Activity Restrictions/Additional Instructions: Please follow-up with your sand bobber for repeat evaluation and keep your appointment for your outpatient heart cath to further assess your known LAD disease. If you have worsening of symptoms or any further concerns please return to the ER for repeat evaluation Disposition Disposition: Home, Self Care
[2022-05-31 23:48] LABS: Absolute Lymphocyte Count 2.61 X10^3/uL (0.83-4.51); Absolute Neutrophil Count 2.4 X10^3/uL (2.0-7.7); Basophil# 0.02 X10^3/uL; Basophil% 0.3 % (0-1); Eosinophil# 0.17 X10^3/uL; Eosinophils% 2.8 % (0-5); Hematocrit 42.9 % (37-47); Hemoglobin 14.1 g/dL (12.0-15.0); Lymphocyte # 2.61 X10^3/ul (0.83-4.51); Lymphocyte % 43.7 % (19-41); Mean Corp Hgb Conc 32.9 g/dL (32-36); Mean Corpuscular Hgb 29.7 pg (27.0-32.0); Mean Corpuscular Volume 90.3 fL (81-99); Mean Platelet Vol. 9.8 fl (6.2-12.0); Monocyte# 0.78 X10^3/uL; Monocyte% 13.1 % (0-10); NRBC Flagged by Analyzer 0 % (0-5); Neutrophil # 2.37 X10^3/uL (2.7-7.7); Neutrophil % 39.8 % (47-70); Platelet Count 214 K/mm3 (150-450); RBC Distribution Width CV 12.6 % (11.6-14.6); RBC Distribution Width SD 41.8 fl (35.1-43.9); Red Blood Count 4.75 M/mm3 (4.2-5.4)
--- NOTE | 2022-05-31 23:50 | RAD_ITS ---
INDICATION: chest pain EXAMINATION/TECHNIQUE: X-RAY - XR Chest 2 Views COMPARISON: None. FINDINGS: LINES/DEVICES: None. LUNGS: No consolidation, edema or effusion. No pneumothorax. MEDIASTINUM AND CARDIOVASCULAR STRUCTURES: Cardiac silhouette not enlarged. Central airways and mediastinal contour are unremarkable. BONES AND SOFT TISSUES: Unremarkable. RAD/Chest PA and Lateral IMPRESSION: No radiographic evidence of acute cardiopulmonary disease. Electronically Signed: Rula Daniel MD at 0:02 EST ,
[2022-06-01 00:04] LABS: International Normalized Ratio 1.3; Prothrombin Time (Protime)PT. 15.5 SECONDS (11.7-14.9)
[2022-06-01 00:05] LABS: Partial Thromboplast Time 48.5 Seconds (24.1-36.2)
[2022-06-01 00:12] VITALS: BP 155/72; PULSE 63; RESP 16; O2SAT 99
[2022-06-01 00:12] LABS: Anion Gap 7 (5-15); BUN 29 mg/dL (7-18); BUN/Creat Ratio 22.3 RATIO (10-20); Calcium,Total 9.6 mg/dL (8.5-10.1); Chloride 105 mmol/L (98-107); EST Glomerular Filtration Rate 42 mL/min (>60); Est Glom Filt Rate - Afr Amer 51 mL/min (>60); Estimated Creatinine Clearance 30.54 ml/min; Glucose 107 mg/dL (74-106); Magnesium 2.2 mg/dL (1.6-2.6); Potassium 3.6 mmol/L (3.5-5.1); Sodium Level 142 mmol/L (136-145); Troponin-I HS 42 pg/mL (3.0-54.0)
[2022-06-01 01:46] LABS: Troponin-I HS 45 pg/mL (3.0-54.0)
[2022-06-01 02:00] VITALS: BP 155/70; PULSE 68; RESP 16; O2SAT 98
== END 2022-06-01 02:00 | disposition home or self-care (01) ==
PROVIDERS: Emergency Provider Emergency Medicine; PCP Internal Medicine; Visit Provider Emergency Medicine
DX: R07.9 Chest pain, unspecified (principal); I25.10 Atherosclerotic heart disease of native coronary artery without angina pectoris; I10 Essential (primary) hypertension; E78.5 Hyperlipidemia, unspecified; Z79.01 Long term (current) use of anticoagulants; Z86.711 Personal history of pulmonary embolism; Z86.718 Personal history of other venous thrombosis and embolism; Z79.82 Long term (current) use of aspirin; Z79.899 Other long term (current) drug therapy
CPT/HCPCS: 71046; 80048; 83735; 84484; 85025; 85610; 85730; 93005; 99283; J7030; A4216

== ENCOUNTER → 2023-02-16 | Outpatient (CLI) | payer MEDICARE, OTHER, SELFPAY ==
--- NOTE | 2023-02-16 13:40 | RAD_ITS ---
INDICATION: Shortness of breath, cough EXAMINATION/TECHNIQUE: X-RAY - XR Chest 2 Views COMPARISON: Prior study dated: 06/01/2022. FINDINGS: LINES/DEVICES: None. LUNGS: No consolidation, edema or effusion. No pneumothorax. MEDIASTINUM AND CARDIOVASCULAR STRUCTURES: Cardiac silhouette not enlarged. Central airways and mediastinal contour are unremarkable. BONES AND SOFT TISSUES: Degenerative changes of the thoracic spine. RAD/Chest PA and Lateral IMPRESSION: No radiographic evidence of acute cardiopulmonary disease. Electronically Signed: Walt De Souza MD at 15:54 EST ,
[2023-02-16 14:22] LABS: Hematocrit 43.2 % (37-47); Hemoglobin 13.8 g/dL (12.0-15.0); Mean Corp Hgb Conc 31.9 g/dL (32-36); Mean Corpuscular Hgb 29.7 pg (27.0-32.0); Mean Corpuscular Volume 93.1 fL (81-99); Mean Platelet Vol. 9.5 fl (6.2-12.0); Platelet Count 216 K/mm3 (150-450); RBC Distribution Width CV 12.9 % (11.6-14.6); RBC Distribution Width SD 44.1 fl (35.1-43.9); Red Blood Count 4.64 M/mm3 (4.2-5.4); White Blood Count 4.4 K/mm3 (4.4-11.0)
[2023-02-16 15:05] LABS: Anion Gap 5 (5-15); BUN 23 mg/dL (7-18); BUN/Creat Ratio 22.3 RATIO (10-20); Chloride 107 mmol/L (98-107); Creatinine, Serum 1.03 mg/dL (0.55-1.02); EST Glomerular Filtration Rate 55 mL/min (>60); Est Glom Filt Rate - Afr Amer 66 mL/min (>60); Glucose 103 mg/dL (74-106); Potassium 3.4 mmol/L (3.5-5.1); Sodium Level 143 mmol/L (136-145); T4 Total, Thyroxin 12.5 ug/dL (4.8-13.9)
== END | disposition home or self-care (01) ==
LOC: RAD 13:32
PROVIDERS: PCP Internal Medicine; Referring Provider Nurse Practitioner Family; Visit Provider Nurse Practitioner Family
DX: R07.89 Other chest pain (principal); I42.2 Other hypertrophic cardiomyopathy; E85.82 Wild-type transthyretin-related (ATTR) amyloidosis; R06.02 Shortness of breath; R05.3 Chronic cough; I25.10 Atherosclerotic heart disease of native coronary artery without angina pectoris; I51.7 Cardiomegaly; I34.0 Nonrheumatic mitral (valve) insufficiency
CPT/HCPCS: 36415; 71046; 80048; 83880; 84436; 84443; 85027

== ENCOUNTER 2023-04-03 15:18 | Emergency (ER) | payer MEDICARE, OTHER, SELFPAY ==
[2023-04-03 15:19] VITALS: BP 142/66; PULSE 101; RESP 18; TEMP 36.7; O2SAT 96
--- NOTE | 2023-04-03 15:55 | CT_ITS ---
INDICATION: pain, vomiting -- r/o sbo EXAMINATION: CT ABDOMEN AND PELVIS WITHOUT CONTRAST - CT Abdomen And Pelvis W/O Contrast Injection TECHNIQUE: Helically acquired images were obtained of the abdomen and pelvis without oral or IV contrast. A radiation dose optimization technique was used for this scan. IV Contrast dosage and agent: None. Oral contrast: Oral contrast/Gastrografin is noted. RADIATION DOSAGE (If Supplied By Facility): CTDIvol = ( 7.08 ) mGy, DLP = ( 337.83 ) mGycm COMPARISON: 03/20/2022 FINDINGS: LOWER CHEST: No focal infiltrate or consolidation. There is a noncalcified nodule in the lingula of the LEFT upper lobe measuring 4 mm (series 2: Image 12) without significant interval change. No cardiomegaly or pericardial effusion. LIVER: Liver is unchanged in size and configuration, there is a low-density lesions/cyst in the RIGHT hepatic lobe measuring 2.1 x 2.1 cm consistent with a hepatic cyst. This is slightly increased from prior exam where this measured 1.9 x 2.0 cm. No solid masses noted. GALLBLADDER AND BILIARY TREE: Gallbladder surgically absent. No ductal dilatation PANCREAS: No focal cystic or solid mass. SPLEEN: Normal size without focal cystic or solid mass. ADRENAL GLANDS: No nodules. KIDNEYS AND URETERS: Kidneys are remarkable for prominent renal cyst particularly on the LEFT measuring approximately 6.0 x 6.9 cm with mild anterior displacement of the LEFT kidney without interval change. Smaller 1.8 x 1.4 cm cyst on the RIGHT. No evidence of obstructive uropathy. No hydronephrosis. PERITONEUM: No ascites or free air. No other fluid collection. BOWEL: 1. No evidence of acute appendicitis. No stomach or bowel distension. There is a small hiatal hernia. 2. Normal appearance of contrast-filled small bowel. No mucosal abnormality noted. Small amount of contrast has traveled to level of the colon. There is extensive diverticulosis is noted without diverticulitis. 3. There is a normal appearing appendix. LYMPH NODES: No enlarged mesenteric or retroperitoneal lymph nodes. VESSELS: 1. Aorta is non-dilated. 2. IVC filter is noted in place with several of the prongs of the IVC filter penetrated the LEFT lateral wall of the IVC and extend into the retroperitoneum adjacent to the aorta however negligible interval change. URINARY BLADDER: Urinary bladder is partially obscured due to streak artifact secondary to hip arthroplasties. No focal abnormality however noted. REPRODUCTIVE ORGANS: Obscured due to streak artifact from hip arthroplasties. ABDOMINAL WALL: Surgical clips are present involving the anterior abdominal wall, no hernia noted. BONES: No acute bony changes are present. Diffuse lumbar spondylosis is noted. Mild grade 1 anterolisthesis of L4 and L5. No acutely acquired canal stenosis although extensive facet arthropathy contributes to significant deformity of the lateral recesses and neural foramina throughout the lumbar spine. CT/Abdomen/Pel W ORAL Cont Only IMPRESSION: 1. No evidence of SBO. 2. No masses bowel obstruction abscess free fluid or free air. Normal appendix noted. 3. Moderate to extensive diverticulosis without evidence of diverticulitis. 4. Redemonstration of bilateral renal cysts larger on LEFT than RIGHT however no calcifications or evidence of obstructive uropathy. 5. Postop changes of prior cholecystectomy. No ductal dilatation. 6. Postoperative changes of bilateral hip arthroplasty with streak artifact obscuring detail of the pelvis. 7. Small hiatal hernia. 8. Hepatic cysts with slight increase in size from prior exam. No ductal dilatation. 9. Stable 4 mm noncalcified pulmonary nodule within the lingula which appears stable. Consider follow-up in 12 months per the included recommendations. 10. IVC filter in place with multiple priors extending through the LEFT lateral wall of the IVC projecting into the retroperitoneum without change. Reference recommendations for pulmonary nodule follow-up: Fleischner Report Guidelines 2017 MacMahon et al, Radiology 2017: https://pubs.rsna.org/doi/pdf/10.1148/radiol.[email or web address] Nodule size: <6 mm SOLITARY low-risk: no follow-up needed high-risk: optional CT at 12 months MULTIPLE low-risk: no follow-up needed high-risk: optional CT at 12 months --- Nodule size: 6-8 mm SOLITARY low-risk: follow-up at 6-12 months, then consider further follow-up at 18-24 months high-risk: initial follow-up CT at 6-12 months and then at 18-24 months if no change MULTIPLE low-risk: follow-up CT at 3-6 months, then consider further follow-up at 18-24 months high-risk: initial follow-up CT at 3-6 months and then at 18-24 months ------- Nodule size: >8 mm SOLITARY either low or high-risk patients consider follow-up CT at 3 months, and/or CT-PET, and/or biopsy MULTIPLE low-risk: follow-up CT at 3-6 months, then consider further follow-up at 18-24 months high-risk: initial follow-up CT at 3-6 months and then at 18-24 months Electronically Signed: Tonny Doan MD at 18:17 EST ,
--- NOTE | 2023-04-03 15:57 | EDS_ITS ---
HPI HPI - GI History of Present Illness Chief Complaint: Abd Pain Informant: patient and spouse/S.O. Narrative Narrative: Increasing lower abdominal distention started yesterday with pain. Small bowel movements. Nonbloody. Nausea and vomiting today. 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 They noted her discomfort yesterday with her typical requirements bowel movement however only had small amount. Hysterectomy cholecystectomy in the past. Small bowel obstruction in 2019 was postop hip replacement at that time also. Denies urinary symptoms. Denies fevers. Currently nauseated denies bloody emesis. Distention improved with vomiting. Prior similar symptoms: Yes PFSH PFSH Medical History Abdominal pain Abdominal pain Abnormal stress echo Acid reflux Arthritis Atherosclerosis of [place] coronary artery of [place] heart without angina pectoris Back problem Cellulitis of left lower extremity Chest pain Constipation Diverticulitis of sigmoid colon Essential hypertension Gastrointestinal hemorrhage Heart murmur Hemorrhoids History of pulmonary embolus (PE) (~2009) History of venous thrombosis and embolism hx of APLL Hyperlipidemia Hypertrophic cardiomyopathy Hypofibrinogenemia Hypothyroidism LVH (left ventricular 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 Palpitations Personal history of colonic polyps Severe left ventricular hypertrophy Severe mitral regurgitation Thrombophlebitis of superficial veins of left lower extremity Wild-type transthyretin-related (ATTR) amyloidosis Home Medications tramadol 50 mg tablet 50 mg PO Q6H PRN PRN Pain 05/20/17 [History Last Taken Unknown] levothyroxine 88 mcg tablet 88 mcg PO DAILY THYROID 05/27/18 [History Last Taken 10/22/19] enoxaparin 60 mg/0.6 mL subcutaneous syringe (Lovenox) 60 mg subcut DAILY BLOOD THINNER 09/25/18 [History Last Taken 10/20/19] acetaminophen 500 mg tablet 500 - 1,000 mg PO Q6H PRN PRN Pain Or Fever 03/03/19 [History Last Taken Unknown] aspirin 81 mg tablet,delayed release (Adult Aspirin Regimen) 81 mg PO DAILY 12/12/19 [History Last Taken Unknown] tafamidis 61 mg capsule 61 mg PO DAILY 12/12/19 [History Last Taken Unknown] cholecalciferol (vitamin D3) 125 mcg (5,000 unit) capsule 125 mcg PO DAILY [History Last Taken Unknown] torsemide 20 mg tablet 20 mg PO BID 07/25/21 [History Last Taken Unknown] rosuvastatin 5 mg tablet 5 mg PO DAILY 01/25/22 [History Last Taken Unknown] vitamin A 2,400 mcg capsule 2,400 mcg PO .3XWEEK 01/25/22 [History Last Taken Unknown] metoprolol succinate 25 mg tablet,extended release 24 hr (Toprol XL) 12.5 mg PO DAILY 07/13/22 [History Last Taken Unknown] omega-3 348 mg-dha 100 mg-epa 230 mg-fish 500 mg-coQ10 100 mg capsule (CoQmax [place]) 1 cap PO DAILY 01/11/23 [History Last Taken Unknown] vitamins A,C,R-luyr-ymqbtm 4,296 mcg-226 mg-90 mg capsule (PreserVision AREDS) 1 cap PO BID 01/11/23 [History Last Taken Unknown] gabapentin 300 mg capsule 900 mg PO QHS 02/16/23 [History Last Taken Unknown] potassium chloride 20 mEq tablet,extended release 20 meq PO DAILY #90 tabs 02/16/23 [Rx Last Taken Unknown] ondansetron 4 mg disintegrating tablet 4 mg PO Q8H PRN PRN Nausea #10 tabs 04/03/23 [Rx Last Taken Unknown] Allergy/AdvReac Type Severity Reaction Status Date / Time Iodinated Contrast Media Allergy Severe Hives Verified 04/03/23 15:19 [Iodinated Contrast- Oral and IV Dye] iodine Allergy Anaphylaxis Verified 04/03/23 15:19 Family History Mother Colon cancer Brother Myeloma Father Heart disease Surgical History History of left heart catheterization (10/22/19) History of left hip replacement History of right hip replacement Hx of arthroscopic knee surgery Hx of bilateral inguinal hernia repair Hx of bladder repair surgery Hx of hysterectomy Hx of partial thyroidectomy Hx of umbilical hernia repair (~2009) Social History Smoking Status: Never smoker second hand exposure: No alcohol intake: never substance use type: does not use caffeine: Yes (very rare) what type of physical activity do you participate in: none frequency: does not exercise seatbelt use: always ROS ROS ED Constitutional Constitutional ED: Denies chills, fever(s) or sweats Eyes Eyes: Denies change in vision ENT ENT ED: Denies dysphagia or sore throat Cardiovascular Cardiovascular: Denies chest pain, leg edema, palpitations or racing heartbeat Respiratory/Chest Respiratory/Chest: Denies cough, dyspnea or dyspnea on exertion Gastrointestinal Gastrointestinal: Reports abdominal pain, nausea and vomiting; Denies diarrhea Genitourinary Genitourinary ED: Denies dysuria, hematuria or urinary frequency Musculoskeletal Musculoskeletal: Denies back pain, extremity pain or neck pain Integumentary Denies rash or wounds Neurologic Neurologic: Denies headache(s), paresthesias or weakness EXAM Physical Exam Const Vital Signs: 04/03/23 15:19 04/03/23 16:19 04/03/23 18:42 Temperature 98.1 F Temperature Source Temporal Pulse Rate 101 H 80 88 Respiratory Rate 18 16 17 Blood Pressure 142/66 H 132/61 H Blood Pressure Mean 91 84 Pulse Ox 96 93 Oxygen Delivery Method Room Air Room Air 04/03/23 18:42 Temperature Temperature Source Pulse Rate 88 Respiratory Rate 18 Blood Pressure 132/61 H Blood Pressure Mean 84 Pulse Ox 93 Oxygen Delivery Method Positive well nourished and well developed General Appearance ED: well developed and NAD HEENT Reports moist mucous membranes normocephalic and atraumatic Eyes PERRL, EOMs intact bilaterally and conjunctivae normal General Eye ED: Yes normal appearance of both eyes Neck no lymphadenopathy and supple General: Negative for tenderness Chest Wall Chest: Negative for tenderness Resp normal respiratory effort and normal air movement Effort and Inspection: symmetric chest movement; Negative for respiratory distress Cardio regular rate, regular rhythm and no murmurs Peripheral Pulses: pulses 2+ throughout GI GI Narrative: No current distention mild tenderness lower quadrants hypoactive bowel sounds. Palpation: Negative for guarding or rebound tenderness present Back/Spine no CVA tenderness and no thoracic nor lumbar tenderness Extremity normal to inspection General Extremety ED: Negative for edema or tenderness General Extremity: Negative for edema Neuro oriented x3 and no sensory deficits noted Sensorium / Orientation: awake and alert Skin no rashes or lesions noted and no wounds MDM MDM MDM Narrative Medical decision making narrative: Interventions / MDM: Differential diagnosis: Abdominal pain, nausea and vomiting, lecture amount of the Diagnosis considered but do not suspect: Small bowel obstruction, appendicitis, colitis however images were all negative. My EKG interpretation: N/A Imaging independently reviewed and interpreted by myself: CT abdomen pelvis p.o. contrast: No bowel obstruction normal appendix. Stable renal cyst, stable pulmonary nodule, slight enlarged hepatic cyst External documents reviewed: N/A Test considered but not ordered:N/A ED course: Patient with abdominal pain and vomiting similar to bowel obstructi ons in the past. Stable operative bowel sounds. No current distention. Abdominal labs ordered, CT with p.o. contrast ordered. Treated morphine and Zofran IV fluids. Results CT negative for obstruction or acute prior. Normal next. Labs are all able. Her symptoms are moved. Urine had a side however she is had a culture sent. She is tolerating oral fluids. She is reassured with findings. Prescription for Zofran sent to her pharmacy to use as needed precautions discussed. Discussed image findings with the patient with findings of cysts and enlarging liver cysts and pulmonary nodule with the patient. All questions answered. Re-evaluation: stable Disposition discussed with patient/family/significant other: Patient and family Case discussed with consulting clinician: N/A This note was generated with [employer] dictation software. It may contain incorrect words, spelling, and punctuation that were not noted in checking the note before signing. Lab Data Attestation: I reviewed the patient's lab results. Labs: Laboratory Results - last 24 hr 04/03/23 04/03/23 15:35 16:37 WBC 10.7 RBC 4.87 Hgb 14.1 Hct 43.6 MCV 89.5 MCH 29.0 MCHC 32.3 RDW Std Deviation 42.3 RDW Coeff of Rashmi 12.9 Plt Count 189 MPV 10.3 Immature Gran % (Auto) 0.600 Neut % (Auto) 81.1 H Lymph % (Auto) 7.3 L [place] % (Auto) 10.8 H Eos % (Auto) 0.0 Baso % (Auto) 0.2 Absolute Neuts (auto) 8.7 H Absolute Lymphs (auto) 0.78 L Nucleated RBC % 0 Sodium 139 Potassium 4.1 Chloride 108 H Carbon Dioxide 25.0 Anion Gap 6 BUN 19 H Creatinine 0.98 Estim Creat Clear Calc 1.68 Est GFR (MDRD) Af Amer 70 Est GFR (MDRD) Non-Af 57 L BUN/Creatinine Ratio 19.3 Glucose 168 H Calcium 9.2 Total Bilirubin 0.70 AST 30 ALT 36 Alkaline Phosphatase 110 Total Protein 6.4 Albumin 3.3 Globulin 3.1 Albumin/Globulin Ratio 1.1 Lipase 33 Urine Color Yellow Urine Clarity Clear Urine pH 6.0 Ur Specific [place] 1.015 Urine Protein 30 H Urine Glucose (UA) Normal Urine Ketones 5 H Urine Occult Blood 50 H Urine Nitrite Negative Urine Bilirubin Negative Urine Urobilinogen Normal Ur Leukocyte Esterase 100 H Urine RBC 5-10 SEEN Urine WBC 5-10 SEEN Ur Squamous Epith Cells 0-5 SEEN Urine Bacteria 0 SEEN Urine Mucus 0 SEEN Radiography Diagnostic Testing: Clinical Impression(s) from Imaging Studies Abdomen CT 04/03/23 15:55 IMPRESSION: 1. No evidence of SBO. 2. No masses bowel obstruction abscess free fluid or free air. Normal appendix noted. 3. Moderate to extensive diverticulosis without evidence of diverticulitis. 4. Redemonstration of bilateral renal cysts larger on LEFT than RIGHT however no calcifications or evidence of obstructive uropathy. 5. Postop changes of prior cholecystectomy. No ductal dilatation. 6. Postoperative changes of bilateral hip arthroplasty with streak artifact obscuring detail of the pelvis. 7. Small hiatal hernia. 8. Hepatic cysts with slight increase in size from prior exam. No ductal dilatation. 9. Stable 4 mm noncalcified pulmonary nodule within the lingula which appears stable. Consider follow-up in 12 months per the included recommendations. 10. IVC filter in place with multiple priors extending through the LEFT lateral wall of the IVC projecting into the retroperitoneum without change. Reference recommendations for pulmonary nodule follow-up: Fleischner Report Guidelines 2017 MacMahon et al, Radiology 2017: https://pubs.rsna.org/doi/pdf/[email or web address] Nodule size: <6 mm SOLITARY low-risk: no follow-up needed high-risk: optional CT at 12 months MULTIPLE low-risk: no follow-up needed high-risk: optional CT at 12 months -- Nodule size: 6-8 mm SOLITARY low-risk: follow-up at 6-12 months, then consider further follow-up at 18-24 months high-risk: initial follow-up CT at 6-12 months and then at 18-24 months if no change MULTIPLE low-risk: follow-up CT at 3-6 months, then consider further follow-up at 18-24 months high-risk: initial follow-up CT at 3-6 months and then at 18-24 months Nodule size: >8 mm SOLITARY either low or high-risk patients consider follow-up CT at 3 months, and/or CT-PET, and/or biopsy MULTIPLE low-risk: follow-up CT at 3-6 months, then consider further follow-up at 18-24 months high-risk: initial follow-up CT at 3-6 months and then at 18-24 months Electronically Signed: Tonny Doan MD at 18:17 EST , Discharge Plan Triage Chief Complaint: Abd Pain ED Provider: Rajan Perez Dx/Rx/DC Orders Clinical Impression: Pulmonary nodule, Renal cyst, Liver cyst, Abdominal pain, Vomiting Instructions: Abdominal Pain, ED Vomiting (Adult) Prescriptions: New ondansetron [ondansetron] 4 mg tablet,disintegrating 4 mg PO Q8H PRN PRN (Reason: Nausea) Qty: 10 0RF No Action enoxaparin [Lovenox] 60 mg/0.6 mL syringe 60 mg SC DAILY aspirin [Adult Aspirin Regimen] 81 mg tablet,delayed release (DR/EC) 81 mg PO DAILY tafamidis 61 mg capsule 61 mg PO DAILY cholecalciferol (vitamin D3) 125 mcg (5,000 unit) capsule 125 mcg PO DAILY vitamin A 2,400 mcg capsule 2,400 mcg PO .3XWEEK rosuvastatin 5 mg tablet 5 mg PO DAILY metoprolol succinate [Toprol XL] 25 mg tablet extended release 24 hr 12.5 mg PO DAILY PreserVision AREDS 4,296 mcg-226 mg-90 mg capsule 1 cap PO BID CoQmax [place] 348-500-100 mg capsule 1 cap PO DAILY levothyroxine 88 mcg tablet 88 mcg PO DAILY tramadol 50 MG tablet 50 mg PO Q6H PRN PRN (Reason: Pain) acetaminophen 500 MG tablet 500 - 1,000 mg PO Q6H PRN PRN (Reason: Pain Or Fever) torsemide 20 mg tablet 20 mg PO BID gabapentin 300 mg capsule 900 mg PO QHS Patient Comments: Take 3 capsules by mouth daily at bedtime for neuropathy in hands potassium chloride 20 mEq tablet extended release 20 meq PO DAILY Qty: 90 3RF Primary Care Provider: Radha Mcrae Referrals: Radha Mcrae MD [Primary Care Provider] - 3-5 Days if not improving Activity Restrictions/Additional Instructions: CT scan abdomen pelvis: No signs obstruction. Normal appendix. Stable renal cyst. Stable pulmonary nodule. Slightly enlarged liver cysts compared to previous. Should use stool regimen daily to have bowel movements daily. Continue oral fluids. Follow-up with your doctor for reevaluation. Return for reevaluation of any recurrent or worsening symptoms. Disposition Disposition: Home, Self Care Discharge Date/Time: 04/03/23 19:04
[2023-04-03] MEDS: 0.9% Normal Saline (1000mL) 1,000 ML 150 ML IV ×2 (16:03→18:40)
[2023-04-03 16:04] LABS: Absolute Lymphocyte Count 0.78 X10^3/uL (0.83-4.51); Absolute Neutrophil Count 8.7 X10^3/uL (2.0-7.7); Basophil# 0.02 X10^3/uL; Basophil% 0.2 % (0-1); Hematocrit 43.6 % (37-47); Hemoglobin 14.1 g/dL (12.0-15.0); Lymphocyte # 0.78 X10^3/ul (0.83-4.51); Lymphocyte % 7.3 % (19-41); Mean Corp Hgb Conc 32.3 g/dL (32-36); Mean Corpuscular Volume 89.5 fL (81-99); Mean Platelet Vol. 10.3 fl (6.2-12.0); Monocyte# 1.16 X10^3/uL; Monocyte% 10.8 % (0-10); NRBC Flagged by Analyzer 0 % (0-5); Neutrophil # 8.68 X10^3/uL (2.7-7.7); Neutrophil % 81.1 % (47-70); Platelet Count 189 K/mm3 (150-450); RBC Distribution Width CV 12.9 % (11.6-14.6); RBC Distribution Width SD 42.3 fl (35.1-43.9); Red Blood Count 4.87 M/mm3 (4.2-5.4); White Blood Count 10.7 K/mm3 (4.4-11.0)
[2023-04-03 16:06] LABS: ALB/GLOB Ratio 1.1 RATIO (0.9-2.4); AST(SGOT) 30 U/L (15-37); Alanine Aminotransfer ALT/SGPT 36 U/L (13-56); Albumin, Serum 3.3 g/dL (3.2-5.0); Alkaline Phosphatase 110 U/L (45-117); Anion Gap 6 (5-15); BUN 19 mg/dL (7-18); BUN/Creat Ratio 19.3 RATIO (10-20); Calcium,Total 9.2 mg/dL (8.5-10.1); Chloride 108 mmol/L (98-107); Creatinine, Serum 0.98 mg/dL (0.55-1.02); EST Glomerular Filtration Rate 57 mL/min (>60); Est Glom Filt Rate - Afr Amer 70 mL/min (>60); Estimated Creatinine Clearance 1.68 ml/min; Globulin 3.1 g/dL (2.2-4.2); Glucose 168 mg/dL (74-106); Potassium 4.1 mmol/L (3.5-5.1); Protein, Total 6.4 g/dL (6.4-8.2); Sodium Level 139 mmol/L (136-145)
[2023-04-03] MEDS: Ondansetron 4 MG/2 ML Vial IV (16:06)
[2023-04-03] MEDS: Morphine 4 MG/ML Syringe IV (16:07)
[2023-04-03 16:19] VITALS: PULSE 80; RESP 16
[2023-04-03 16:47] LABS: Bacteria 0 SEEN /hpf (None Seen); Mucous, Urine 0 SEEN /hpf (<or=2+)
[2023-04-03 16:52] LABS: Color, Urine Yellow (Yellow); Glucose, Dipstick Normal (Normal); Ketone-Dipstick 5 mg/dl (Negative); Leukocyte Esterase-Dipstick 100 /ul (Negative); Nitrite-Dipstick Negative (Negative); Occult Blood-Urine 50 /ul (Negative); Protein-Dipstick 30 mg/dl (Negative); Specific Gravity, Urine 1.015 (1.002-1.030); Urine Bilirubin Dipstick Negative (Negative); Urine Clarity Clear (Clear); Urine Urobilinogen Normal (Normal)
[2023-04-03 17:03] LABS: Red Blood Cells-Urine 5-10 SEEN /hpf (0-5); Squamous Epithelial Cells - UA 0-5 SEEN /hpf (5-10); White Blood Cells 5-10 SEEN /hpf (0-5)
[2023-04-03 17:07] LABS: Lipase 33 U/L (13-75)
[2023-04-03 18:42] VITALS: BP 132/61; PULSE 88; RESP 17; RESP 18; O2SAT 93
== END 2023-04-03 19:04 | disposition home or self-care (01) ==
PROVIDERS: Emergency Provider Emergency Medicine; PCP Internal Medicine; Visit Provider Emergency Medicine
DX: R91.1 Solitary pulmonary nodule (principal); N28.1 Cyst of kidney, acquired; K76.89 Other specified diseases of liver; R10.30 Lower abdominal pain, unspecified; R11.10 Vomiting, unspecified; I25.10 Atherosclerotic heart disease of native coronary artery without angina pectoris; Z86.718 Personal history of other venous thrombosis and embolism; Z86.711 Personal history of pulmonary embolism
CPT/HCPCS: 74176; 80053; 81001; 83690; 85025; 96374; 96375; 99284; J7030; A4216; J2405

== ENCOUNTER 2023-04-04 13:17 | Emergency (ER) | payer MEDICARE, OTHER, SELFPAY ==
[2023-04-04 13:18] VITALS: BP 102/51; PULSE 86; RESP 14; TEMP 37.4; O2SAT 96
[2023-04-04 13:28] LABS: Absolute Lymphocyte Count 0.62 X10^3/uL (0.83-4.51); Absolute Neutrophil Count 8.7 X10^3/uL (2.0-7.7); Basophil# 0.03 X10^3/uL; Basophil% 0.3 % (0-1); Hematocrit 40.7 % (37-47); Lymphocyte # 0.62 X10^3/ul (0.83-4.51); Mean Corp Hgb Conc 31.9 g/dL (32-36); Mean Corpuscular Hgb 28.8 pg (27.0-32.0); Mean Platelet Vol. 9.8 fl (6.2-12.0); Monocyte# 0.89 X10^3/uL; Monocyte% 8.7 % (0-10); NRBC Flagged by Analyzer 0 % (0-5); Neutrophil # 8.67 X10^3/uL (2.7-7.7); Neutrophil % 84.3 % (47-70); Platelet Count 166 K/mm3 (150-450); RBC Distribution Width SD 42.9 fl (35.1-43.9); Red Blood Count 4.52 M/mm3 (4.2-5.4); White Blood Count 10.3 K/mm3 (4.4-11.0)
[2023-04-04 13:44] LABS: ALB/GLOB Ratio 1.1 RATIO (0.9-2.4); AST(SGOT) 41 U/L (15-37); Alanine Aminotransfer ALT/SGPT 37 U/L (13-56); Albumin, Serum 3.2 g/dL (3.2-5.0); Alkaline Phosphatase 103 U/L (45-117); Anion Gap 10 (5-15); BUN 19 mg/dL (7-18); BUN/Creat Ratio 18.8 RATIO (10-20); Calcium,Total 8.4 mg/dL (8.5-10.1); Chloride 107 mmol/L (98-107); Creatinine, Serum 1.01 mg/dL (0.55-1.02); EST Glomerular Filtration Rate 56 mL/min (>60); Est Glom Filt Rate - Afr Amer 67 mL/min (>60); Glucose 164 mg/dL (74-106); Potassium 3.7 mmol/L (3.5-5.1); Protein, Total 6.2 g/dL (6.4-8.2); Sodium Level 139 mmol/L (136-145)
--- NOTE | 2023-04-04 14:39 | EX.ED.DYSGE1 ---
HPI History of Present Illness Chief Complaint: Abd Pain Detail of Chief Complaint: Nausea, vomiting diarrhea and chest discomfort with diaphoresis and shortne Informant: patient and spouse/S.O. Onset/Context/Timing Onset: Today (Nausea and vomiting with diarrhea started at 0300. Chest discomfort at 1230 with duration 30 minutes.) Context: Sudden Onset Timing: Intermittent Quality: Complains of achy bilateral lower abdominal pain and achy midsternal chest. 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 Reason she presents is because of chest discomfort associated with dyspnea and diaphoresis. This lasted 30 minutes. She was not on the commode at the time. She denies known coronary disease. She had a stress test through the [facility] 3 months ago which was unremarkable. She did have a cardiac catheterization October 2019 which did reveal disease in her LAD. Patient reported Tmax of 99.4. She does endorse thirst, dry mouth and intermittent orthostatic lightheadedness. She denies headache, visual, ocular auditory symptoms. She presently denies chest discomfort. There was no radiation of the chest discomfort when present. She may have felt slight nausea. Patient is on anticoagulant. She denied coffee-ground emesis or blood in her emesis. She denied black or maroon-colored diarrhea. She did not notice any mucus. She denies any ill contacts. Prior similar symptoms: No Recent Illness/Hospitalization: No PFSH PFSH Medical History Abdominal pain Abdominal pain Abnormal stress echo Acid reflux Arthritis Atherosclerosis of [place] coronary artery of [place] heart without angina pectoris Back problem Cellulitis of left lower extremity Chest pain Constipation Diverticulitis of sigmoid colon Essential hypertension Gastrointestinal hemorrhage Heart murmur Hemorrhoids History of pulmonary embolus (PE) (~2009) History of venous thrombosis and embolism hx of APLL Hyperlipidemia Hypertrophic cardiomyopathy Hypofibrinogenemia Hypothyroidism LVH (left ventricular 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 Palpitations Personal history of colonic polyps Severe left ventricular hypertrophy Severe mitral regurgitation Thrombophlebitis of superficial veins of left lower extremity Wild-type transthyretin-related (ATTR) amyloidosis Home Medications tramadol 50 mg tablet 50 mg PO Q6H PRN PAIN 05/20/17 [History Last Taken Unknown] levothyroxine 88 mcg tablet 88 mcg PO DAILY THYROID 05/27/18 [History Last Taken 04/04/23] enoxaparin 60 mg/0.6 mL subcutaneous syringe (Lovenox) 60 mg subcut QHS BLOOD THINNER 09/25/18 [History Last Taken 04/01/23] aspirin 81 mg tablet,delayed release (Adult Aspirin Regimen) 81 mg PO DAILY HEART HEALTH 12/12/19 [History Last Taken 04/04/23] tafamidis 61 mg capsule 61 mg PO DAILY HEART FAILURE 12/12/19 [History Last Taken 04/04/23] cholecalciferol (vitamin D3) 125 mcg (5,000 unit) capsule 125 mcg PO DAILY SUPPLEMENT 04/15/20 [History Last Taken 04/04/23] rosuvastatin 5 mg tablet 5 mg PO DAILY CHOLESTEROL 01/25/22 [History Last Taken 04/04/23] vitamin A 2,400 mcg capsule 2,400 mcg PO UD 01/25/22 [History Last Taken Unknown] metoprolol succinate 25 mg tablet,extended release 24 hr (Toprol XL) 12.5 mg PO DAILY BLOOD PRESSURE 07/13/22 [History Last Taken 04/04/23] omega-3 348 mg-dha 100 mg-epa 230 mg-fish 500 mg-coQ10 100 mg capsule (CoQmax [place]) 1 cap PO DAILY SUPPLEMENT 01/11/23 [History Last Taken 04/04/23] vitamins A,C,V-mmps-rokxzi 4,296 mcg-226 mg-90 mg capsule (PreserVision AREDS) 1 cap PO BID EYE HEALTH 01/11/23 [History Last Taken 04/04/23] gabapentin 300 mg capsule 900 mg PO QHS NEUROPATHY 02/16/23 [History Last Taken 04/03/23] potassium chloride 20 mEq tablet,extended release 20 meq PO DAILY #90 tabs 02/16/23 [Rx Last Taken 04/04/23] ondansetron 4 mg disintegrating tablet 4 mg PO Q8H PRN NAUSEA 04/04/23 [History Last Taken 04/04/23] ondansetron 4 mg disintegrating tablet 4 mg PO Q8H PRN PRN Nausea #10 tabs 04/04/23 [Rx Last Taken Unknown] torsemide 10 mg tablet 10 mg PO BID FLUID 04/04/23 [History Last Taken 04/04/23] Allergy/AdvReac Type Severity Reaction Status Date / Time Iodinated Contrast Media Allergy Severe Hives Verified 04/03/23 15:19 [Iodinated Contrast- Oral and IV Dye] iodine Allergy Anaphylaxis Verified 04/03/23 15:19 Family History Mother Colon cancer Brother Myeloma Father Heart disease Surgical History History of left heart catheterization (10/22/19) History of left hip replacement History of right hip replacement Hx of arthroscopic knee surgery Hx of bilateral inguinal hernia repair Hx of bladder repair surgery Hx of hysterectomy Hx of partial thyroidectomy Hx of umbilical hernia repair (~2009) Social History Smoking Status: Never smoker second hand exposure: No alcohol intake: never substance use type: does not use caffeine: Yes (very rare) what type of physical activity do you participate in: none frequency: does not exercise seatbelt use: always ROS ROS ED Constitutional Constitutional ED: Reports chills, fever(s) and sweats Eyes Eyes: Denies blurry vision, change in vision or diplopia ENT ENT ED: Denies ear pain, rhinorrhea or sore throat Cardiovascular Cardiovascular: Reports chest pain; Denies orthopnea, palpitations, paroxysmal nocturnal dyspnea or racing heartbeat Respiratory/Chest Respiratory/Chest: Reports dyspnea; Denies cough, dyspnea on exertion, orthopnea or paroxysmal nocturnal dyspnea Gastrointestinal Gastrointestinal: Reports abdominal pain, diarrhea, nausea and vomiting; Denies constipation Genitourinary Genitourinary ED: Reports dysuria, hematuria, urinary frequency and other Details: Endorses decreased urine output. Musculoskeletal Musculoskeletal: Denies arthralgias or myalgias Integumentary Denies rash Neurologic Neurologic: Reports weakness; Denies headache(s) or paresthesias Endocrine Endocrinology: Denies polydipsia or polyuria Hematologic/Lymphatic Hematologic/Lymphatic: Reports systems reviewed and no addt'l complaints, except as documented EXAM Physical Exam Const Vital Signs: 04/04/23 13:18 04/04/23 15:44 04/04/23 15:30 Temperature 99.3 F H Temperature Source Temporal Pulse Rate 86 78 Pulse Rate [Lying] 71 Pulse Rate [Sitting (for 1 minute prior to obtaining)] 81 Pulse Rate [Standing (for 1 minute prior to obtaining)] 80 Respiratory Rate 14 18 Blood Pressure 102/51 L 126/65 H Blood Pressure [Lying] 122/61 H Blood Pressure [Sitting (for 1 minute prior to obtaining)] 141/67 H Blood Pressure [Standing (for 1 minute prior to obtaining)] 125/64 H Blood Pressure Mean 68 85 Blood Pressure Mean [Lying] 81 Blood Pressure Mean [Sitting (for 1 minute prior to obtaining)] 91 Blood Pressure Mean [Standing (for 1 minute prior to obtaining)] 84 Pulse Ox 96 98 Oxygen Delivery Method Room Air 04/04/23 16:30 04/04/23 17:05 Temperature Temperature Source Pulse Rate 81 71 Pulse Rate [Lying] Pulse Rate [Sitting (for 1 minute prior to obtaining)] Pulse Rate [Standing (for 1 minute prior to obtaining)] Respiratory Rate 17 22 H Blood Pressure 117/59 L 123/60 H Blood Pressure [Lying] Blood Pressure [Sitting (for 1 minute prior to obtaining)] Blood Pressure [Standing (for 1 minute prior to obtaining)] Blood Pressure Mean 78 81 Blood Pressure Mean [Lying] Blood Pressure Mean [Sitting (for 1 minute prior to obtaining)] Blood Pressure Mean [Standing (for 1 minute prior to obtaining)] Pulse Ox 93 91 Oxygen Delivery Method Positive well nourished and well developed Constitutional Narrative: Patient appears ill. She does not appear comfortable. General Appearance ED: well developed; Negative for cyanotic, diaphoretic, NAD or pallor HEENT Reports dry mucous membranes HEENT Narrative: Head is atraumatic and normocephalic. Ears are normal. Nares are patent. Posterior pharynx is unremarkable. Uvula is midline. Mucosa is dry. Mouth ED: Yes dry mucous membranes Mouth: dry mucous membranes Eyes PERRL and EOMs intact bilaterally General Eye ED: Negative for pale conjunctiva or scleral icterus Neck no lymphadenopathy, supple and no JVD Chest Wall inspection of chest normal and palpation of chest normal Resp normal respiratory effort and clear to auscultation bilaterally Cardio regular rate, regular rhythm, S1 normal heart sound and S2 normal heart sound; Negative for no murmurs GI normal to inspection, nondistended, normoactive bowel sounds and no masses; Negative for non-tender, non-distended or hepatosplenomegaly GI Narrative: Bowel sounds are slightly increased. There is slight tympany. There is no guarding or peritoneal findings. Palpation: soft Back/Spine no CVA tenderness Thoracic Spine / Upper Back: Negative for thoracic spinal tenderness Extremity normal to inspection General Extremety ED: Negative for edema or tenderness General Extremity: Negative for edema Neuro oriented x3, CN's II-XII intact bilaterally and no sensory deficits noted Sensorium / Orientation: alert Motor Exam: strength 5/5 throughout Psych mental status grossly normal Skin no rashes or lesions noted, no wounds and No skin turgor normal General Skin Exam: Negative for elasticity normal, jaundice or pallor MDM MDM MDM Narrative Medical decision making narrative: With complaint of chest discomfort with diaphoresis shortness of breath need to rule out cardiac etiology of her chest pain. Will obtain EKG with troponin and 2-hour troponin. Of note prior records indicates she had a cardiac cath with disease involving the proximal LAD October 2019. Electrolyte panel was obtained to assess electrolytes and specifically rule out hypokalemia. Assess acid-base status as well as renal function. CBC to assess white count and rule out anemia. Clinically patient is dehydrated. IV fluids ordered. History & Record Review Discussion w/independent historian: Significant other Additional record(s) reviewed:: Prior outpatient record, Prior ED visit and Prior labs Lab Data Attestation: I reviewed the patient's lab results. Lab results narrative: White count is normal. Comprehensive metabolic panel reveals a glucose of 164 with normal CO2 anion gap. Total bili slightly elevated 1.20. AST is slightly elevated at 47. These are not significant. Second troponin is 41 with a delta of -6 Labs: Laboratory Results - last 24 hr 04/04/23 04/04/23 04/04/23 13:20 14:43 15:10 WBC 10.3 RBC 4.52 Hgb 13.0 Hct 40.7 MCV 90.0 MCH 28.8 MCHC 31.9 L RDW Std Deviation 42.9 RDW Coeff of Rashmi 13.0 Plt Count 166 MPV 9.8 Immature Gran % (Auto) 0.700 Neut % (Auto) 84.3 H Lymph % (Auto) 6.0 L [place] % (Auto) 8.7 Eos % (Auto) 0.0 Baso % (Auto) 0.3 Absolute Neuts (auto) 8.7 H Absolute Lymphs (auto) 0.62 L Nucleated RBC % 0 Sodium 139 Potassium 3.7 Chloride 107 Carbon Dioxide 22.0 Anion Gap 10 BUN 19 H Creatinine 1.01 Est GFR (MDRD) Af Amer 67 Est GFR (MDRD) Non-Af 56 L BUN/Creatinine Ratio 18.8 Glucose 164 H Lactic Acid 1.5 Calcium 8.4 L Total Bilirubin 1.20 H AST 41 H ALT 37 Alkaline Phosphatase 103 Troponin I High Sens 47 Total Protein 6.2 L Albumin 3.2 Globulin 3.0 Albumin/Globulin Ratio 1.1 Urine Color YELLOW Urine Clarity Sl Cldy Urine pH 5.0 Ur Specific [place] 1.020 Urine Protein 30 H Urine Glucose (UA) Normal Urine Ketones Negative Urine Occult Blood 150 H Urine Nitrite Negative Urine Bilirubin Negative Urine Urobilinogen Normal Ur Leukocyte Esterase 500 H Urine RBC 10-25 SEEN Urine WBC 25-50 SEEN Ur Squamous Epith Cells 0-5 SEEN Urine Bacteria 0 SEEN Urine Mucus 0 SEEN 04/04/23 16:22 WBC RBC Hgb Hct MCV MCH MCHC RDW Std Deviation RDW Coeff of Rashmi Plt Count MPV Immature Gran % (Auto) Neut % (Auto) Lymph % (Auto) [place] % (Auto) Eos % (Auto) Baso % (Auto) Absolute Neuts (auto) Absolute Lymphs (auto) Nucleated RBC % Sodium Potassium Chloride Carbon Dioxide Anion Gap BUN Creatinine Est GFR (MDRD) Af Amer Est GFR (MDRD) Non-Af BUN/Creatinine Ratio Glucose Lactic Acid Calcium Total Bilirubin AST ALT Alkaline Phosphatase Troponin I High Sens 41 Total Protein Albumin Globulin Albumin/Globulin Ratio Urine Color Urine Clarity Urine pH Ur Specific [place] Urine Protein Urine Glucose (UA) Urine Ketones Urine Occult Blood Urine Nitrite Urine Bilirubin Urine Urobilinogen Ur Leukocyte Esterase Urine RBC Urine WBC Ur Squamous Epith Cells Urine Bacteria Urine Mucus Urinalysis reveals occult blood and leukoesterase and negative for nitrites and macro. Super gravity is 1.020. Slightly cloudy. There is 10-25 RBCs and 25-50 WBCs with no bacteria. Culture was sent. EKG Initial EKG: Attestation: I personally reviewed and interpreted this EKG as follows: Interpretation: Sinus Rhythm (Sinus rhythm with a first-degree heart block. Rate is 80. NE interval is 222 ms. QRS duration 94 ms. QT duration 386 ms. [place] is to the left. Slightly peaked T waves in V2. There is also decreased anterior force. There is artifact in the inferior leads which the computer is reading as inferi) Treatment and Re-Evaluation :: Patient was reassessed at 1536. Her nausea resolved with Zofran and her abdominal pain improved with IV morphine. Patient was reassessed at 1643. Patient reports feeling better. She looks better. With her having a recent stress test and normal troponin she can follow-up with her physician. Her symptoms did occur after using the commode and may have been a vagal response or GI response with regards to the diaphoresis. Discharge Plan Triage Chief Complaint: Abd Pain Other Complaint: Nausea/Vomiting/Diarrhea ED Provider: Fritz Craven Dx/Rx/DC Orders Clinical Impression: Central chest pain, Atherosclerosis of [place] coronary artery of [place] heart without angina pectoris, Wild-type transthyretin-related (ATTR) amyloidosis, Essential hypertension, Nausea vomiting and diarrhea, Abdominal distress, bilateral lower quadrant, Acute dehydration, Orthostatic hypotension Instructions: ED Chest Pain, Uncertain Cause, ED Vomit Diarrhea Nonspec Adult Prescriptions: New ondansetron [ondansetron] 4 mg tablet,disintegrating 4 mg PO Q8H PRN PRN (Reason: Nausea) Qty: 10 0RF No Action enoxaparin [Lovenox] 60 mg/0.6 mL syringe 60 mg SC QHS aspirin [Adult Aspirin Regimen] 81 mg tablet,delayed release (DR/EC) 81 mg PO DAILY tafamidis 61 mg capsule 61 mg PO DAILY cholecalciferol (vitamin D3) 125 mcg (5,000 unit) capsule 125 mcg PO DAILY vitamin A 2,400 mcg capsule 2,400 mcg PO UD Patient Comments: PATIENT STATES TAKES ONE THREE TIMES A WEEK ON NONSPECIFIC DAYS. rosuvastatin 5 mg tablet 5 mg PO DAILY metoprolol succinate [Toprol XL] 25 mg tablet extended release 24 hr 12.5 mg PO DAILY PreserVision AREDS 4,296 mcg-226 mg-90 mg capsule 1 cap PO BID CoQmax [place] 348-500-100 mg capsule 1 cap PO DAILY levothyroxine 88 mcg tablet 88 mcg PO DAILY tramadol 50 MG tablet 50 mg PO Q6H PRN (Reason: PAIN ) torsemide 10 mg tablet 10 mg PO BID ondansetron [ondansetron] 4 mg tablet,disintegrating 4 mg PO Q8H PRN (Reason: NAUSEA ) gabapentin 300 mg capsule 900 mg PO QHS potassium chloride 20 mEq tablet extended release 20 meq PO DAILY Qty: 90 3RF Primary Care Provider: Radha Mcrae Referrals: Radha Mcrae MD [Primary Care Provider] - 3-5 Days Activity Restrictions/Additional Instructions: 1. Take Imodium with each loose stool 2. Increase your fluid intake Disposition Disposition: Home, Self Care
[2023-04-04] MEDS: 0.9% Normal Saline (1000mL) 1,000 ML 1000 ML IV (14:49)
[2023-04-04 14:51] VITALS: BMI 23.8
[2023-04-04 14:51] LABS: Bacteria 0 SEEN /hpf (None Seen); Mucous, Urine 0 SEEN /hpf (<or=2+)
[2023-04-04 15:06] LABS: Color, Urine YELLOW (Yellow); Glucose, Dipstick Normal (Normal); Ketone-Dipstick Negative (Negative); Leukocyte Esterase-Dipstick 500 /ul (Negative); Nitrite-Dipstick Negative (Negative); Occult Blood-Urine 150 /ul (Negative); Protein-Dipstick 30 mg/dl (Negative); Urine Bilirubin Dipstick Negative (Negative); Urine Clarity Sl Cldy (Clear); Urine Urobilinogen Normal (Normal)
[2023-04-04 15:07] LABS: Red Blood Cells-Urine 10-25 SEEN /hpf (0-5); Squamous Epithelial Cells - UA 0-5 SEEN /hpf (5-10); White Blood Cells 25-50 SEEN /hpf (0-5)
[2023-04-04 15:10] LABS: Troponin-I HS (w/2H Reflex) 47 pg/mL (3.0-54.0)
[2023-04-04] MEDS: Morphine 4 MG/ML Syringe IV (15:12)
[2023-04-04] MEDS: Ondansetron 4 MG/2 ML Vial IV (15:12)
[2023-04-04 15:30] VITALS: BP 126/65; PULSE 78; RESP 18; O2SAT 98
[2023-04-04 15:44] VITALS: BP 122/61; BP 125/64; BP 141/67; PULSE 71; PULSE 80; PULSE 81
[2023-04-04 15:53] LABS: Lactic Acid 1.5 mmol/L (0.4-1.9)
[2023-04-04 16:30] VITALS: BP 117/59; PULSE 81; RESP 17; O2SAT 93
[2023-04-04 16:52] LABS: Reflex Troponin-HS? (from REC) Y
[2023-04-04 17:05] VITALS: BP 123/60; PULSE 71; RESP 22; O2SAT 91
[2023-04-04 17:44] LABS: Troponin-I HS 41 pg/mL (3.0-54.0)
[2023-04-04 19:05] VITALS: BP 126/64
== END 2023-04-04 19:55 | disposition home or self-care (01) ==
PROVIDERS: Emergency Provider Emergency Medicine; PCP Internal Medicine; Visit Provider Emergency Medicine
DX: R07.89 Other chest pain (principal); I42.2 Other hypertrophic cardiomyopathy; E85.82 Wild-type transthyretin-related (ATTR) amyloidosis; I25.10 Atherosclerotic heart disease of native coronary artery without angina pectoris; R11.2 Nausea with vomiting, unspecified; R19.7 Diarrhea, unspecified; E86.0 Dehydration; R10.31 Right lower quadrant pain; R10.32 Left lower quadrant pain; I95.1 Orthostatic hypotension; I10 Essential (primary) hypertension; I34.0 Nonrheumatic mitral (valve) insufficiency; E03.9 Hypothyroidism, unspecified; E78.5 Hyperlipidemia, unspecified; Z79.82 Long term (current) use of aspirin; Z79.899 Other long term (current) drug therapy; Z86.711 Personal history of pulmonary embolism
CPT/HCPCS: 80053; 81001; 83605; 84484; 85025; 87086; 87088; 93005; 96361; 96374; 96375; 99284; J7030; A4216; J2405

== ENCOUNTER 2023-04-20 20:45 | Inpatient (IN) | payer MEDICARE, OTHER, SELFPAY ==
--- OUTSIDE RECORDS SUMMARY | 2023-04-20 20:53 | XMS RPT_ITS | CCD ---
Author Name Unknown Address [address] [place] [address] Organization [facility] Care Team Providers Care Waiter/Waitress Head Name Role Phone Aliya COYLE, Gab Primary Care Provider Brayan Pringle MD Unavailable Diane VÁZQUEZ, Fredrick Valdez Unavailable Unavailjayy Leal MD, Jose Unavailable Darrin COYLE, Rito Sanders Unavailable Aliya COYLE, [facility] Primary Care Provider Brayan Pringle MD Unavailable Fredrick Walker RN Unavailable Unavailjayy Valera MD, Rito Sanders Unavailable Brayan Pringle MD Unavailable [phone] Diane Alcala RN Unavailable Unavailjayy Pisano MD, [facility] Care Provider Brayan Pringle MD Unavailable Diane Alcala RN Unavailable Roberto Valera MD, Riot Sanders Unavailable Aliya COYLE, [facility] Primary Care Provider Fredrick VÁZQUEZ, Diane Valdez Unavailable Unavailjayy Valera MD, Rito Sanders Unavailable ALIYA, GAB Primary Care Unavailable TERRANCE PRITCHARD Referring Unavailabl e GANTA, GAB Primary Care Unavailable TERRANCE PRITCHARD Referring Unavailabl e GANTA, GAB Primary Care Unavailable TERRANCE PRITCHARD Referring Unavailabl Genia Ramirez Referring Unavailable GANTA, GAB Primary Care Unavailable SHIRA SEYMOUR Referring Unavailabl e GANTA, GAB Primary Care Unavailable GANTA, GAB Primary Care Unavailable FINET J AYAN Referring Unavailable GANTA, GAB Primary Care Unavailable FINET J AYAN Referring Unavailable GANTA, GAB Primary Care Unavailable RITO VALERA Referring Unavailabl e GANTA, GAB Primary Care Unavailable EUGENIO HERNANDEZ Referring Unavailable GANTA, GAB Primary Care Unavailable CHO, SUNG LANA L Referring Unavailable GANTA, GAB Primary Care Unavailable FINET, J AYAN Referring Unavailable CHO, SUNG LANA L Attending Unavailable GANTA, GAB Primary Care Unavailable GANTA, GAB Primary Care Unavailable CHO, SUNG LANA L Attending Unavailable CHO, SUNG LANA L Admitting Unavailable GANTA, GAB Primary Care Unavailable HERNANDEZEUGENIO MARI Attending Unavailable GANTA, GAB Primary Care Unavailable HIRA HERRING Attending Unavailable BEAU CHAUDHRY Admitting Unavailable GANTA, GAB Primary Care Unavailable PERCIC, DEBRA Referring Unavailable GANTA, GAB Primary Care Unavailable JOELLEN MARLOW Referring Unavailable RASHI GRAYSON Attending Unavailable GANTA, GAB Primary Care Unavailable PERCIC, DEBRA Referring Unavailable GANTA, GAB Primary Care Unavailable OLDER, NUVIA Attending Unavailable GANTA, GAB Primary Care Unavailable DAWN, SANJEEB Referring Unavailabl e GANTA, GAB Primary Care Unavailable DAWN, ANNEB Attending Unavailabl e GANTA, GAB Primary Care Unavailable GANTA, GAB Referring Unavailable KYEEVI A Referring Unavailable GANTA, GAB Primary Care Unavailable EUGENIO HERNANDEZ Attending Unavailable GANTA, GAB Primary Care Unavailable RITO VALERA Referring Unavailabl e GANTA, GAB Primary Care Unavailable GANTA, GAB Primary Care Unavailable GANTA, GAB Primary Care Unavailable GANTA, GAB Referring Unavailable GANTA, GAB Primary Care Unavailable GANTA, GAB Referring Unavailable GANTA, GAB Attending Unavailable RITO VALERA Referring Unavailabl e GANTA, GAB Primary Care Unavailable DAWN, SANJEEB Referring Unavailabl e DAWN, SANJEEB Attending Unavailabl e GANTA, GAB Primary Care Unavailable OLDERNUVIA Attending Unavailable GANTA, GAB Primary Care Unavailable FINEGenia Amato Referring Unavailable GANTA, GAB Primary Care Unavailable FINELiane, Genia BAUTISTA Referring Unavailable FINET, Genia BAUTISTA Attending Unavailable [facility], [facility] Primary Care Unavailable KYE, MAZEN A Referring Unavailable GANTA, [facility] Primary Care Unavailable KYE, MAZEN A Referring [facility] Primary Care Unavailable DAWN, SANJEEB Referring Unavailabl e GANTA, [facility] Primary Care Unavailable ELIAN, MARYBEL Attending Unavailable [facility], [facility] Primary Care Unavailable ELIAN, MARYBEL Referring Unavailable PERCIC, DEBRA Referring Unavailable GAN, [facility] Primary Care Unavailable ALLISONIOMER A Referring Unavailable OMER NARVAEZ Attending Unavailable [facility], [facility] Primary Care Unavailable Courtney MONTANO Referring Unavailable KYE, EVI A Attending Unavailable [facility], [facility] Primary Care Unavailable Courtney MONTANO Referring Unavailable [facility] Primary Care Unavailable Courtney MONTANO Referring Unavailable [facility] Primary Care Unavailable OMER NARVAEZ Referring Unavailable MASCIOMER Attending Unavailable [facility] Primary Care Unavailable Allergies Allergy Classification Reported Allergen(s) Allergy Type Date of Onset Reaction(s) Facility (20 sources) Iodine; Translations: [IODINE] Drug Allergy 12-19-2004 [facility] Medications Current Medications Medication Drug Class(es) Dates Sig (Normalized) Sig (Original) 0.6 ml enoxaparin sodium 100 mg/ml prefilled syringe (20 sources) Low Molecular Weight Heparin Start: 02-09-2022 End: 02-09-2023 inject 0.6 mL by subcutaneous injection once daily enoxaparin (LOVENOX) 60 mg/0.6 mL syrg Inject 0.6 mL subcutaneously once daily. 90 Each 3 02/09/2022 02/09/2023 Active Completed/Discontinued Medications Medication Drug Class(es) Dates Sig (Normalized) Sig (Original) acetaminophen 500 mg oral tablet (20 sources) Start: 03-30-2022 take 2 tablets by mouth every six hours as needed acetaminophen (TYLENOL EXTRA STRENGTH) 500 mg tablet Take 2 tablets by mouth every 6 hours as needed for pain. 0 03/30/2022 Active Problems Active Problems Problem Classification Problem Date Documented Da te Episodic/Chronic Allergic reactions (1 source) Allergy to contrast media; Translations: [Radiographic dye allergy status] Episodic Anxiety disorders (20 sources) Acute stress disorder; Translations: [Acute stress reaction] Onset: 1 09-16-2020 Chronic Cardiac dysrhythmias (1 source) Palpitations; Translations: [Palpitations] Episodic Chronic kidney disease (20 sources) Chronic kidney disease stage 3; Translations: [Chronic kidney disease (CKD), stage III (moderate)] Onset: 7 07-27-2016 Chronic Chronic kidney disease (1 source) Chronic kidney disease; Translations: [Hypertensive kidney disease with stage 3a chronic kidney disease (HCC)] Onset: 2 Coagulation and hemorrhagic disorders (20 sources) Dysfibrinogenemia; Translations: [Hereditary deficiency of other clotting factors] Onset: 0 11-05-2014 Chronic Congestive heart failure; nonhypertensive (20 sources) Chronic diastolic heart failure; Translations: [Chronic diastolic (congestive) heart failure] Onset: 2 06-22-2021 Chronic Coronary atherosclerosis and other heart disease (20 sources) Coronary atherosclerosis; Translations: [Atherosclerotic heart disease of pechanga coronary artery without angina pectoris] Onset: 2 06-22-2021 Chronic Disorders of lipid metabolism (20 sources) Mixed hyperlipidemia; Translations: [Mixed hyperlipidemia] Onset: 0 11-13-2019 Chronic Diverticulosis and diverticulitis (20 sources) Diverticulosis of colon; Translations: [Diverticulosis of large intestine without perforation or abscess without bleeding] Onset: 8 03-12-2008 Chronic Esophageal disorders (20 sources) Gastroesophageal reflux disease; Translations: [Gastro-esophageal reflux disease without esophagitis] Onset: 8 09-11-2017 Chronic Essential hypertension (20 sources) Essential hypertension; Translations: [Essential (primary) hypertension] Onset: 0 11-13-2019 Chronic Genitourinary symptoms and ill-defined conditions (20 sources) Incontinence; Translations: [Mixed incontinence] Onset: 5 10-27-2014 Chronic Genitourinary symptoms and ill-defined conditions (2 sources) Delay when starting to pass urine; Translations: [Hesitancy of micturition] Episodic Hypertension with complications and secondary hypertension (20 sources) Chronic kidney disease stage 3 due to hypertension; Translations: [Hypertensive chronic kidney disease with stage 1 through stage 4 chronic kidney disease, or unspecified chronic kidney disease] Onset: 2 05-30-2021 Chronic Immunizations and screening for infectious disease (2 sources) Needs influenza immunization; Translations: [Encounter for immunization] Episodic Malaise and fatigue (1 source) Fatigue; Translations: [Other fatigue] Episodic Nausea and vomiting (2 sources) Vomiting without nausea; Translations: [Vomiting without nausea] Onset: 4 Episodic Nonspecific chest pain (1 source) Chest pain, unspecified; Translations: [Chest pain, unspecified type] Onset: 4 Episodic Osteoarthritis (20 sources) Osteoarthritis of right hip joint; Translations: [Unilateral primary osteoarthritis, right hip] Onset: 0 05-05-2019 Chronic Other circulatory disease (20 sources) History of insertion of inferior vena caval filter; Translations: [Presence of other vascular implants and grafts] Onset: 5 11-06-2014 Chronic Other circulatory disease (2 sources) Ecchymosis; Translations: [Hemorrhage, not elsewhere classified] Episodic Other circulatory disease (1 source) Personal history of other diseases of the circulatory system; Translations: [History of chronic hypertension] Onset: 4 Episodic Other connective tissue disease (20 sources) History of repair of hip joint; Translations: [Presence of right artificial hip joint] Onset: 0 05-14-2019 Chronic Other connective tissue disease (1 source) Spasm; Translations: [Other muscle spasm] 11-27-2022 Episodic Other connective tissue disease (1 source) Pain of left lower leg; Translations: [Pain in left lower leg] 12-05-2022 Episodic Other diseases of veins and lymphatics (20 sources) Postthrombotic syndrome; Translations: [Postthrombotic syndrome without complications of unspecified extremity] Onset: 9 03-10-2019 Chronic Other gastrointestinal disorders (20 sources) Irritable bowel syndrome; Translations: [Irritable bowel syndrome without diarrhea] Onset: 6 03-29-2021 Chronic Other gastrointestinal disorders (1 source) Diarrhea, unspecified; Translations: [Nausea vomiting and diarrhea] Onset: 4 Episodic Other liver diseases (3 sources) Elevated liver enzymes level; Translations: [Abnormal levels of other serum enzymes] Episodic Other nervous system disorders (20 sources) Ilioinguinal nerve neuralgia; Translations: [Unspecified mononeuropathy of unspecified lower limb] Onset: 0 12-02-2009 Chronic Other nervous system disorders (20 sources) Neuropathy; Translations: [Polyneuropathy, unspecified] Onset: 2 06-22-2021 Chronic Other nervous system disorders (3 sources) Bilateral carpal tunnel syndrome; Translations: [Carpal tunnel syndrome, bilateral upper limbs] 10-12-2022 Chronic Other nervous system disorders (1 source) Polyneuropathy, unspecified; Translations: [Neuropathy] Onset: 2 Chronic Other non-traumatic joint disorders (2 sources) Shoulder pain; Translations: [Pain in right shoulder] Episodic Other nutritional; endocrine; and metabolic disorders (20 sources) Cardiomyopathy; 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] Onset: 0 11-13-2019 Chronic Other nutritional; endocrine; and metabolic disorders (20 sources) Senile systemic amyloidosis; 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] Onset: 0 12-05-2019 Chronic Other nutritional; endocrine; and metabolic disorders (20 sources) Hereditary amyloidosis; 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] Onset: 3 Chronic Other nutritional; endocrine; and metabolic disorders (1 source) Organ-limited amyloidosis; Translations: [Cardiac amyloidosis (HCC)] Onset: 0 Chronic Other nutritional; endocrine; and metabolic disorders (1 source) Hypomagnesemia; Translations: [Hypomagnesemia] Onset: 3 Chronic Other nutritional; endocrine; and metabolic disorders (1 source) Other amyloidosis; 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)] Onset: 3 Chronic Other nutritional; endocrine; and metabolic disorders (1 source) Wild-type transthyretin-related (ATTR) amyloidosis; 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 (HCC)] Onset: 0 Chronic Other nutritional; endocrine; and metabolic disorders (1 source) Personal history of other endocrine, nutritional and metabolic disease; Translations: [History of hyperlipidemia] Onset: 4 Episodic Other skin disorders (1 source) Skin lesion; Translations: [Disorder of the skin and subcutaneous tissue, unspecified] 11-27-2022 Episodic Paulette-; endo-; and myocarditis; cardiomyopathy (except that caused by tuberculosis or sexually transmitted disease) (1 source) Cardiomyopathy in diseases classified elsewhere; Translations: [Cardiac amyloidosis (HCC)] Onset: 0 Chronic Peritonitis and intestinal abscess (2 sources) Infectious disease of abdomen; Translations: [Peritonitis, unspecified] Episodic Phlebitis; thrombophlebitis and thromboembolism (20 sources) 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; Translations: [Chronic embolism and thrombosis of right femoral vein] Onset: 6 02-07-2016 Chronic Residual codes; unclassified (1 source) Postoperative state; Translations: [Other specified postprocedural states] Episodic Spondylosis; intervertebral disc disorders; other back problems (1 source) Neck pain; Translations: [Cervicalgia] 11-27-2022 Episodic Thyroid disorders (20 sources) Acquired hypothyroidism; Translations: [Hypothyroidism, unspecified] Onset: 5 02-19-2015 Chronic Past or Other Problems Problem Classification Problem Date Documented Da te Episodic/Chronic Abdominal pain (20 sources) Chronic abdominal pain; Translations: [Unspecified abdominal pain] Onset: 05-29-2014 05-29-2014 Episodic Administrative/social admission (20 sources) Bereavement; Translations: [Disappearance and of family member] Onset: 09-16-2020 09-16-2020 Episodic Biliary tract disease (20 sources) Cholelithiasis without obstruction; Translations: [Calculus of gallbladder without cholecystitis without obstruction] Onset: 03-29-2022 Episodic Other aftercare (20 sources) Long-term current use of anticoagulant; Translations: [detention (current) use of anticoagulants] Onset: 04-17-2016 04-17-2016 Episodic Other aftercare (20 sources) Post-discharge follow-up; Translations: [Encounter for follow-up examination after completed treatment for conditions other than malignant neoplasm] Onset: 05-14-2019 05-14-2019 Episodic Other connective tissue disease (1 source) Pain in left lower leg; Translations: [Pain and swelling of left lower leg] Onset: 12-05-2022 Episodic Other connective tissue disease (1 source) Other specified soft tissue disorders; Translations: [Pain and swelling of left lower leg] Onset: 12-05-2022 Episodic Other lower respiratory disease (1 source) Dyspnea, unspecified; Translations: [Dyspnea, unspecified] Onset: 08-17-2022 Episodic Other skin disorders (1 source) Disorder of the skin and subcutaneous tissue, unspecified; Translations: [Skin lesion] Onset: 11-22-2022 Episodic Phlebitis; thrombophlebitis and thromboembolism (20 sources) H/O: Deep vein thrombosis; Translations: [Personal history of other venous thrombosis and embolism] Onset: 11-05-2014 11-13-2019 Episodic Pulmonary heart disease (20 sources) H/O: pulmonary embolus; Translations: [Personal history of pulmonary embolism] Onset: 08-26-2009 11-05-2014 Episodic Residual codes; unclassified (20 sources) Insomnia; Translations: [Insomnia, unspecified] Onset: 05-16-2005 05-16-2005 Episodic Residual codes; unclassified (20 sources) Patient encounter status; Translations: [Encounter for prophylactic measures, unspecified] Onset: 11-05-2014 11-05-2014 Episodic Residual codes; unclassified (20 sources) Other specified health status; Translations: [Other drug allergy] Onset: 09-08-2021 Episodic Results Test Name Value Interpretation Reference Range Facil ity Vital Signs Date Time Vital Sign Value Performing Clinician Shravan javed 02-05-2023 14:51-0500 Body height 162.6 cm Omer CrowdMed Work Phone: [facility] 02-05-2023 14:51-0500 Body temperature 97.5 [degF] Omer Crowd[employer] Work Phone: [facility] 02-05-2023 14:51-0500 Body weight 61.69 kg Omer [employer] Work Phone: [facility] 02-05-2023 14:51-0500 Diastolic blood pressure 73 mm[Hg] Omer CrowdMed Work Phone: [facility] 02-05-2023 14:51-0500 Heart rate 69 /min Omer [employer] Work Phone: [facility] 02-05-2023 14:51-0500 SaO2% (BldA) [Mass fraction] 96 % Omer CrowdMed Work Phone: [facility] 02-05-2023 14:51-0500 Systolic blood pressure 117 mm[Hg] Omer Narvaez DO Work Phone: [facility] 01-29-2023 13:35-0400 Body height 165.1 cm Shira Seymour MD Work Phone: [facility] 01-29-2023 13:35-0400 Body temperature 97.9 [degF] Shira Seymour MD Work Phone: [facility] 01-29-2023 13:35-0400 Body weight 61.01 kg Shira Seymour MD Work Phone: [facility] 01-29-2023 13:35-0400 Diastolic blood pressure 67 mm[Hg] Shira Seymour MD Work Phone: [facility] 01-29-2023 13:35-0400 Heart rate 63 /min Shira Seymour MD Work Phone: [facility] 01-29-2023 13:35-0400 Respiratory rate 18 /min Shira Seymour MD Work Phone: [facility] 01-29-2023 13:35-0400 SaO2% (BldA) [Mass fraction] 96 % Shira Seymour MD Work Phone: [facility] 01-29-2023 13:35-0400 Systolic blood pressure 122 mm[Hg] Shira Seymour MD Work Phone: [facility] 12-07-2022 09:12-0400 Body weight 60.33 kg Nuvia Older [employer] Work Phone: [facility] 12-07-2022 09:12-0400 Diastolic blood pressure 70 mm[Hg] Nuvia Older [employer]ENGRAVING HEL[employer]HEEP [employer]PER Work Phone: [facility] 12-07-2022 09:12-0400 Heart rate 68 /min Nuvia Older [employer]ENGRAVING HELPER[employer]SHEEP CLIPPER Work Phone: [facility] 12-07-2022 09:12-0400 Respiratory rate 16 /min Nuvia Older [employer]OTOENGRAVING HELPER[employer]SHEEP CLIPPER Work Phone: [facility] 12-07-2022 09:12-0400 SaO2% (BldA) [Mass fraction] 96 % Nuvia Older [employer]ENGRAVING HELPER[employer]SHEEP CLIPPER Work Phone: [facility] 12-07-2022 09:12-0400 Systolic blood pressure 118 mm[Hg] Nuvia Older [employer]ENGRAVING HELPER[employer]SHEEP CLIPPER Work Phone: [facility] 12-05-2022 09:52-0400 Body weight 60.33 kg Eugenio Hernandez MD Work Phone: [facility] 12-05-2022 09:52-0400 Diastolic blood pressure 76 mm[Hg] Eugenio Hernandez MD Work Phone: [facility] 12-05-2022 09:52-0400 Heart rate 72 /min Eugenio Hernandez MD Work Phone: [facility] 12-05-2022 09:52-0400 Respiratory rate 16 /min Eugenio Hernandez MD Work Phone: [facility] 12-05-2022 09:52-0400 Systolic blood pressure 126 mm[Hg] Eugenio Hernandez MD Work Phone: [facility] 11-22-2022 17:36-0400 Body temperature 97.59 [degF] Nuvia Older [employer]ENGRAVING HELPER[employer]SHEEP CLIPPER Work Phone: [facility] 11-22-2022 17:36-0400 Body weight 61.24 kg Nuvia Older [employer]OTOENGRAVING HELPER[employer]SHEEP CLIPPER Work Phone: [facility] 11-22-2022 17:36-0400 Diastolic blood pressure 84 mm[Hg] Nuvia Older [employer]ENGRAVING HELPER[employer]SHEEP CLIPPER Work Phone: [facility] 11-22-2022 17:36-0400 Heart rate 78 /min Nuvia Older [employer]ENGRAVING HELPER[employer]SHEEP CLIPPER Work Phone: [facility] 11-22-2022 17:36-0400 Respiratory rate 16 /min Nuvia Older PHOTOENGRAVING HELPER[employer]SHEEP CLIPPER Work Phone: [facility] 11-22-2022 17:36-0400 SaO2% (BldA) [Mass fraction] 98 % Nuvia Older [employer]OTOENGRAVING HELPER[employer]SHEEP CLIPPER Work Phone: [facility] 11-22-2022 17:36-0400 Systolic blood pressure 132 mm[Hg] Nuvia Older [employer]ENGRAVING HELPER[employer]SHEEP CLIPPER Work Phone: [facility] 11-08-2022 11:40-0400 Body height 165.1 cm Shira Seymour MD Work Phone: [facility] 11-08-2022 11:40-0400 Body temperature 98.1 [degF] Shira Seymour MD Work Phone: [facility] 11-08-2022 11:40-0400 Body weight 61.24 kg Shira Seymour MD Work Phone: [facility] 11-08-2022 11:40-0400 Diastolic blood pressure 70 mm[Hg] Shira Seymour MD Work Phone: [facility] 11-08-2022 11:40-0400 Heart rate 64 /min Shira Seymour MD Work Phone: [facility] 11-08-2022 11:40-0400 Respiratory rate 15 /min Shira Seymour MD Work Phone: [facility] 11-08-2022 11:40-0400 SaO2% (BldA) [Mass fraction] 96 % Shira Seymour MD Work Phone: [facility] 11-08-2022 11:40-0400 Systolic blood pressure 132 mm[Hg] Shira Seymour MD Work Phone: [facility] 10-12-2022 15:08-0400 Body weight 61.24 kg Eugenio Hernandez MD Work Phone: [facility] 10-12-2022 15:08-0400 Diastolic blood pressure 74 mm[Hg] Eugenio Hernandez MD Work Phone: [facility] 10-12-2022 15:08-0400 Heart rate 68 /min Eugenio Hernandez MD Work Phone: [facility] 10-12-2022 15:08-0400 Respiratory rate 16 /min Eugenio Hernandez MD Work Phone: [facility] 10-12-2022 15:08-0400 Systolic blood pressure 130 mm[Hg] Eugenio Hernandez MD Work Phone: [facility] 08-07-2022 14:21-0400 Body temperature 97.59 [degF] Omer Masci DO Work Phone: [facility] 08-07-2022 14:21-0400 Body weight 61.69 kg Omer Masci DO Work Phone: [facility] 08-07-2022 14:21-0400 Diastolic blood pressure 74 mm[Hg] Omer Masci DO Work Phone: [facility] 08-07-2022 14:21-0400 Heart rate 73 /min Omer Masci DO Work Phone: [facility] 08-07-2022 14:21-0400 Systolic blood pressure 125 mm[Hg] Omer Masci DO Work Phone: [facility] 06-26-2022 17:31-0400 Body temperature 97.81 [degF] Krislyn Aberegg PA Work Phone: [facility] 06-26-2022 17:31-0400 Body weight 62.78 kg Krislyn Aberegg PA Work Phone: [facility] 06-26-2022 17:31-0400 Diastolic blood pressure 72 mm[Hg] Krislyn Aberegg PA Work Phone: [facility] 06-26-2022 17:31-0400 Heart rate 70 /min Krislyn Aberegg PA Work Phone: [facility] 06-26-2022 17:31-0400 Respiratory rate 18 /min Krislyn Aberegg PA Work Phone: [facility] 06-26-2022 17:31-0400 SaO2% (BldA) [Mass fraction] 98 % Krislyn Aberegg PA Work Phone: [facility] 06-26-2022 17:31-0400 Systolic blood pressure 124 mm[Hg] Krislyyashira Aberegg PA Work Phone: [facility] 06-02-2022 09:41-0500 Body height 165.1 cm Gab Pisano MD Work Phone: [facility] 06-02-2022 09:41-0500 Body temperature 97.39 [degF] Gab Pisano MD Work Phone: [facility] 06-02-2022 09:41-0500 Body weight 62.14 kg Gab Pisano MD Work Phone: [facility] 06-02-2022 09:41-0500 Diastolic blood pressure 68 mm[Hg] Gab Pisano MD Work Phone: [facility] 06-02-2022 09:41-0500 Heart rate 65 /min Gab Pisano MD Work Phone: [facility] 06-02-2022 09:41-0500 Respiratory rate 12 /min Gab Pisano MD Work Phone: [facility] 06-02-2022 09:41-0500 SaO2% (BldA) [Mass fraction] 99 % Gab Pisano MD Work Phone: [facility] 06-02-2022 09:41-0500 Systolic blood pressure 118 mm[Hg] Gab Pisano MD Work Phone: [facility] 05-22-2022 15:07-0500 Body height 165.1 cm KOURTNEY Ruby MD Work Phone: [facility] 05-22-2022 15:07-0500 Body temperature 98.49 [degF] KOURTNEY Ruby MD Work Phone: [facility] 05-22-2022 15:07-0500 Body weight 61.28 kg KOURTNEY Ruby MD Work Phone: [facility] 05-22-2022 15:07-0500 Diastolic blood pressure 72 mm[Hg] KOURTNEY Ruby MD Work Phone: [facility] 05-22-2022 15:07-0500 Heart rate 80 /min KOURTNEY Ruby MD Work Phone: [facility] 05-22-2022 15:07-0500 Respiratory rate 16 /min KOURTNEY Ruby MD Work Phone: [facility] 05-22-2022 15:07-0500 SaO2% (BldA) [Mass fraction] 96 % KOURTNEY Ruby MD Work Phone: [facility] 05-22-2022 15:07-0500 Systolic blood pressure 119 mm[Hg] KOURTNEY Ruby MD Work Phone: [facility] 04-11-2022 08:33-0500 Body height 165.1 cm Saurav Yo PA-C Work Phone: [facility] 04-11-2022 08:33-0500 Body temperature 98.2 [degF] Saurav Yo PA-C Work Phone: [facility] 04-11-2022 08:33-0500 Body weight 61.24 kg Saurav Yo PA-C Work Phone: [facility] 04-11-2022 08:33-0500 Diastolic blood pressure 78 mm[Hg] Saurav Yo PA-C Work Phone: [facility] 04-11-2022 08:33-0500 Heart rate 96 /min Saurav Yo PA-C Work Phone: [facility] 04-11-2022 08:33-0500 Respiratory rate 14 /min Saurav Yo PA-C Work Phone: [facility] 04-11-2022 08:33-0500 SaO2% (BldA) [Mass fraction] 98 % Saurav Yo PA-C Work Phone: [facility] 04-11-2022 08:33-0500 Systolic blood pressure 104 mm[Hg] Saurav Yo PA-C Work Phone: [facility] 04-07-2022 10:14-0500 Body height 165.1 cm Mario Plescia PA-C Work Phone: [facility] 04-07-2022 10:14-0500 Body weight 60.33 kg Mario Plescia PA-C Work Phone: [facility] 04-07-2022 10:14-0500 Diastolic blood pressure 78 mm[Hg] Mario Plescia PA-C Work Phone: [facility] 04-07-2022 10:14-0500 Heart rate 75 /min Mario Plescia PA-C Work Phone: [facility] 04-07-2022 10:14-0500 Systolic blood pressure 135 mm[Hg] Mario Plescia PA-C Work Phone: [facility] 03-07-2022 11:05-0500 Body temperature 97.59 [degF] Omer Masci DO Work Phone: [facility] 03-07-2022 11:05-0500 Body weight 62.6 kg Omer Masci DO Work Phone: [facility] 03-07-2022 11:05-0500 Diastolic blood pressure 77 mm[Hg] Omer Masci DO Work Phone: [facility] 03-07-2022 11:05-0500 Heart rate 79 /min Omer Masci DO Work Phone: [facility] 03-07-2022 11:05-0500 Systolic blood pressure 126 mm[Hg] Omer Masci DO Work Phone: [facility] 03-02-2022 14:45-0500 Body temperature 97.9 [degF] Research Main Work Phone: [facility] 02-20-2022 17:58-0500 Body temperature 97.7 [degF] Eugenio Hernandez MD Work Phone: [facility] 02-20-2022 17:58-0500 Body weight 61.69 kg Eugenio Hernandez MD Work Phone: [facility] 02-20-2022 17:58-0500 Diastolic blood pressure 74 mm[Hg] Eugenio Hernandez MD Work Phone: [facility] 02-20-2022 17:58-0500 Heart rate 76 /min Eugenio Hernandez MD Work Phone: [facility] 02-20-2022 17:58-0500 Respiratory rate 12 /min Eugenio Hernandez MD Work Phone: [facility] 02-20-2022 17:58-0500 Systolic blood pressure 130 mm[Hg] Eugenio Hernandez MD Work Phone: [facility] 02-06-2022 14:18-0500 Body height 162.6 cm Omer Masci DO Work Phone: [facility] 02-06-2022 14:18-0500 Body temperature 97.3 [degF] Omer Masci DO Work Phone: [facility] 02-06-2022 14:18-0500 Body weight 63.28 kg Omer Masci DO Work Phone: [facility] 02-06-2022 14:18-0500 Diastolic blood pressure 69 mm[Hg] Omer Masci DO Work Phone: [facility] 02-06-2022 14:18-0500 Heart rate 87 /min Omer Masci DO Work Phone: [facility] 02-06-2022 14:18-0500 SaO2% (BldA) [Mass fraction] 100 % Omer Masci DO Work Phone: [facility] 02-06-2022 14:18-0500 Systolic blood pressure 112 mm[Hg] Omer Masci DO Work Phone: [facility] 01-31-2022 08:45-0400 Body height 165.1 cm Brayan Ahn MD Work Phone: [facility] 01-31-2022 08:45-0400 Body temperature 97.9 [degF] Brayan Ahn MD Work Phone: [facility] 01-31-2022 08:45-0400 Body weight 61.6 kg Brayan Ahn MD Work Phone: [facility] 01-31-2022 08:45-0400 Diastolic blood pressure 78 mm[Hg] Brayan Ahn MD Work Phone: [facility] 01-31-2022 08:45-0400 Heart rate 102 /min Brayan Ahn MD Work Phone: [facility] 01-31-2022 08:45-0400 SaO2% (BldA) [Mass fraction] 95 % Brayan Ahn MD Work Phone: [facility] 01-31-2022 08:45-0400 Systolic blood pressure 116 mm[Hg] Brayan Ahn MD Work Phone: [facility] 01-18-2022 17:57-0400 Body weight 61.69 kg Nuvia Older PHOTOENGRAVING HELPER.SHEEP CLIPPER Work Phone: [facility] 01-18-2022 17:57-0400 Diastolic blood pressure 70 mm[Hg] Nuvia Older PHOTOENGRAVING HELPER.SHEEP CLIPPER Work Phone: [facility] 01-18-2022 17:57-0400 Heart rate 83 /min Nuvia Older PHOTOENGRAVING HELPER.SHEEP CLIPPER Work Phone: [facility] 01-18-2022 17:57-0400 Respiratory rate 16 /min Nuvia Older PHOTOENGRAVING HELPER.SHEEP CLIPPER Work Phone: [facility] 01-18-2022 17:57-0400 SaO2% (BldA) [Mass fraction] 96 % Nuvia Older PHOTOENGRAVING HELPER.SHEEP CLIPPER Work Phone: [facility] 01-18-2022 17:57-0400 Systolic blood pressure 112 mm[Hg] Nuvia Older PHOTOENGRAVING HELPER.SHEEP CLIPPER Work Phone: [facility] 01-02-2022 13:38-0400 Body weight 61.69 kg Nuvia Older PHOTOENGRAVING HELPER.SHEEP CLIPPER Work Phone: [facility] 01-02-2022 13:38-0400 Diastolic blood pressure 66 mm[Hg] Nuvia Older PHOTOENGRAVING HELPER.SHEEP CLIPPER Work Phone: [facility] 01-02-2022 13:38-0400 Heart rate 68 /min Nuvia Older PHOTOENGRAVING HELPER.SHEEP CLIPPER Work Phone: [facility] 01-02-2022 13:38-0400 Respiratory rate 16 /min Nuvia Older PHOTOENGRAVING HELPER.SHEEP CLIPPER Work Phone: [facility] 01-02-2022 13:38-0400 Systolic blood pressure 112 mm[Hg] Nuvia Older PHOTOENGRAVING HELPER.SHEEP CLIPPER Work Phone: [facility] 12-06-2021 14:21-0400 Body height 163.8 cm Rito Valera MD Work Phone: [facility] 12-06-2021 14:21-0400 Body weight 63.05 kg Rito Valera MD Work Phone: [facility] 12-06-2021 14:21-0400 Diastolic blood pressure 75 mm[Hg] Rito Valera MD Work Phone: [facility] 12-06-2021 14:21-0400 Heart rate 89 /min Rito Valera MD Work Phone: [facility] 12-06-2021 14:21-0400 SaO2% (BldA) [Mass fraction] 95 % Rito Valera MD Work Phone: [facility] 12-06-2021 14:21-0400 Systolic blood pressure 119 mm[Hg] Rito Valera MD Work Phone: [facility] 10-06-2021 14:30-0400 Body temperature 96.8 [degF] Willis Amaral MD Work Phone: [facility] 10-06-2021 14:30-0400 Body weight 62.32 kg Willis Amaral MD Work Phone: [facility] 10-06-2021 14:30-0400 Diastolic blood pressure 80 mm[Hg] Willis Amaral MD Work Phone: [facility] 10-06-2021 14:30-0400 Heart rate 98 /min Willis Amaral MD Work Phone: [facility] 10-06-2021 14:30-0400 Respiratory rate 20 /min Willis Amaral MD Work Phone: [facility] 10-06-2021 14:30-0400 SaO2% (BldA) [Mass fraction] 96 % Willis Amaral MD Work Phone: [facility] 10-06-2021 14:30-0400 Systolic blood pressure 108 mm[Hg] Willis Amaral MD Work Phone: [facility] 09-15-2021 13:41-0400 Body height 160 cm Research Main Work Phone: [facility] 09-15-2021 13:41-0400 Body temperature 96.8 [degF] Research Main Work Phone: [facility] 09-15-2021 13:41-0400 Body weight 61.24 kg Research Main Work Phone: [facility] 09-15-2021 13:41-0400 Diastolic blood pressure 75 mm[Hg] Research Main Work Phone: [facility] 09-15-2021 13:41-0400 Heart rate 72 /min Research Main Work Phone: [facility] 09-15-2021 13:41-0400 Respiratory rate 16 /min Research Main Work Phone: [facility] 09-15-2021 13:41-0400 SaO2% (BldA) [Mass fraction] 99 % Research Main Work Phone: [facility] 09-15-2021 13:41-0400 Systolic blood pressure 130 mm[Hg] Research Main Work Phone: [facility] 09-08-2021 09:22-0400 Body temperature 97.2 [degF] Gab Pisano MD Work Phone: [facility] 09-08-2021 09:22-0400 Body weight 63.5 kg Gab Pisano MD Work Phone: [facility] 09-08-2021 09:22-0400 Diastolic blood pressure 78 mm[Hg] Gab Pisano MD Work Phone: [facility] 09-08-2021 09:22-0400 Heart rate 88 /min Gab Pisano MD Work Phone: [facility] 09-08-2021 09:22-0400 SaO2% (BldA) [Mass fraction] 98 % Gab Pisano MD Work Phone: [facility] 09-08-2021 09:22-0400 Systolic blood pressure 130 mm[Hg] Gab Pisano MD Work Phone: [facility] 08-05-2021 14:36-0400 Body temperature 97 [degF] Omer Masci DO Work Phone: [facility] 08-05-2021 14:36-0400 Body weight 64.64 kg Omer Masci DO Work Phone: [facility] 08-05-2021 14:36-0400 Diastolic blood pressure 63 mm[Hg] Omer Masci DO Work Phone: [facility] 08-05-2021 14:36-0400 Heart rate 80 /min Omer Masci DO Work Phone: [facility] 08-05-2021 14:36-0400 Systolic blood pressure 120 mm[Hg] Omer Masci DO Work Phone: [facility] 06-22-2021 11:57-0400 Body height 165.1 cm KOURTNEY Ruby MD Work Phone: [facility] 06-22-2021 11:57-0400 Body weight 63.37 kg KOURTNEY Ruby MD Work Phone: [facility] 06-22-2021 11:57-0400 Diastolic blood pressure 74 mm[Hg] KOURTNEY Ruby MD Work Phone: [facility] 06-22-2021 11:57-0400 Heart rate 85 /min KOURTNEY Ruby MD Work Phone: [facility] 06-22-2021 11:57-0400 SaO2% (BldA) [Mass fraction] 98 % KOURTNEY Ruby MD Work Phone: [facility] 06-22-2021 11:57-0400 Systolic blood pressure 128 mm[Hg] KOURTNEY Ruby MD Work Phone: [facility] Encounters Encounter Date Encounter Type Care Provider Facility Start: 04-13-2023 End: 04-13-2023 Evaluation and management of inpatient DEBRA PERCIC Facility:[facility] Start: 04-13-2023 End: 04-13-2023 ambulatory DEBRA PERCIC Facility:[facility] Start: 04-12-2023 End: 04-12-2023 Evaluation and management of inpatient JOELLEN MARLOW Facility:[facility] Start: 04-05-2023 Evaluation and management of inpatient HIRA IRANIAN Facility:[facility] Start: 04-03-2023 Encounter for examination for normal comparison and control in clinical research program GAB PISANO [facility] Start: 03-31-2023 End: 04-03-2023 ambulatory GAB GANTA Facility:[facility] Start: 03-30-2023 End: 03-31-2023 ambulatory MARYBEL ELIAN Facility:[facility] Start: 03-30-2023 Patient encounter procedure GAB GANTA [facility] Start: 03-30-2023 End: 03-30-2023 ambulatory SANJEEB DAWN Facility:[facility] Start: 03-30-2023 End: 03-31-2023 ambulatory GAB SCOTTTA Facility:[facility] Start: 03-14-2023 Patient encounter procedure Terrance Valentin MD Work Phone: Cardiology Procedures Date Procedure Procedure Detail Performing Clinician Start: 12-05-2022 INFLUENZA VACCINE, PRSV FREE, AGE 65+ YR, HIGH DOSE, QUADRIVALENT (FLUZONE HIGH-DOSE) Eugenio Hernandez MD Work Phone: Start: 04-07-2022 Ct abdomen & pelvis w/o contrast material Mario Fermin PA-C Work Phone: Start: 02-24-2022 Us pelvic nonobstetric image dcmtn limited/f/u Eugenio Hernandez MD Work Phone: Start: 01-27-2022 Us abdominal real time w/image limited Nuvia Older PHOTOENGRAVING HELPER.SHEEP CLIPPER Work Phone: Start: 01-18-2022 Urnls dip stick/tablet rgnt auto w/o microscopy Nuvia Older PHOTOENGRAVING HELPER.SHEEP CLIPPER Work Phone: Start: 01-02-2022 INFLUENZA SEASONAL QUADRIVALENT HIGH DOSE AGE 65+ Nuvia Older PHOTOENGRAVING HELPER.SHEEP CLIPPER Work Phone: Start: 03-15-2021 Adult depression screening assessment Doreen MARTINS History of cholecystectomy S/P laparoscopic cholecystectomy Aneesh Kaplan MD Work Phone: Plan of Treatment Date Care Activity Detail Author Start: 08-07-2025 DIABETES SCREEN DIABETES SCREEN [facility] Start: 08-07-2025 Diabetes Screening Diabetes Screenin g [facility] Start: 06-13-2025 DIABETES SCREEN DIABETES SCREEN [facility] Start: 05-29-2025 DIABETES SCREEN DIABETES SCREEN [facility] Start: 04-07-2025 DIABETES SCREEN DIABETES SCREEN [facility] Start: 03-31-2025 DIABETES SCREEN DIABETES SCREEN [facility] Start: 03-02-2025 DIABETES SCREEN DIABETES SCREEN [facility] Start: 01-31-2025 DIABETES SCREEN DIABETES SCREEN [facility] Start: 01-19-2025 DIABETES SCREEN DIABETES SCREEN [facility] Start: 12-29-2024 DIABETES SCREEN DIABETES SCREEN [facility] Start: 09-25-2024 Urine microalbumin profile [facility] Start: 09-05-2024 DIABETES SCREEN DIABETES SCREEN [facility] Start: 05-30-2024 DIABETES SCREEN DIABETES SCREEN [facility] Start: 12-08-2023 Covid-19 Vaccine ( season) Covid-19 Vaccine () [facility] Immunizations Immunization Date Immunization Notes Care Provider Cyndy johnston 12-05-2022 influenza (HD-IIV4) vaccine, age 65+ yr, high dose, quadrivalent, PF (FLUZONE HIGH-DOSE) Eugenio Hernandez MD Work Phone: [facility] Work Phone: 01-02-2022 influenza, high-dose , quadrivalent vaccine (FLUZONE HIGH DOSE QUADRIVALENT) Nuvia Grissom APRN.[facility] Work Phone: [facility] 03-02-2021 influenza, high-dose , quadrivalent vaccine (FLUZONE HIGH DOSE QUADRIVALENT) [facility] 06-09-2020 COVID-19 vaccine, fu ll dose (MODERNA) [facility] Work Phone: 05-13-2020 COVID-19 vaccine, fu ll dose (MODERNA) [facility] Work Phone: 01-20-2020 zoster vaccine recombinant Eugenio Hernandez MD Work Phone: [facility] Work Phone: 10-09-2019 zoster vaccine recombinant Eugenio Hernandez MD Work Phone: [facility] Work Phone: 05-06-2019 pneumococcal polysaccharide vaccine, 23 valent [facility] 11-28-2017 influenza, high dose seasonal, preservative-free [facility] Work Phone: 01-29-2017 influenza, high dose seasonal, preservative-free [facility] Work Phone: 12-30-2014 influenza, seasonal, injectable [facility] 09-25-2014 pneumococcal conjuga te vaccine, 13 valent [facility] 09-25-2014 tetanus toxoid, redu julio césar diphtheria toxoid, and acellular pertussis vaccine, adsorbed [facility] 12-29-2013 influenza, seasonal, injectable Doreen MARTINS [facility] 03-20-2012 influenza virus vacc ine, unspecified formulation Doreenadenike [facility] Work Phone: 01-30-2011 zoster vaccine, live Doreenadenike SHIPLEY [facility] 01-11-2011 influenza virus vacc ine, unspecified formulation Doreenadenike [facility] 02-17-2010 influenza virus vacc ine, unspecified [facility] influenza virus vacc ine, unspecified formulation Doreenadenike [facility] Work Phone: 02-06-2008 influenza virus vacc ine, unspecified formulation Doreenadenike [facility] 03-01-2007 influenza virus vacc ine, unspecified formulation [facility] 02-19-2006 influenza virus vacc ine, unspecified formulation [facility] Work Phone: 01-16-2006 pneumococcal polysaccharide vaccine, 23 valent [facility] 05-16-2005 tetanus and diphther ia toxoids, adsorbed, preservative free, for adult use (2 Lf of tetanus toxoid and 2 Lf of diphtheria toxoid) [facility] Payers Date Payer Category Payer Medicare [id number] 2019 Unknown MMO MMO MEDICARE SUPPLEMENT [id number] 2019-Present [phone] [address] [place] [address] Indemnity [id number] 2019 Unknown MMO MMO MEDICARE SUPPLEMENT [id number] 2019-Present [phone] [address] [place] [address] Indemnity [id number] 2005 Medicare MEDICARE MEDICAR E A AND B [id number] 2005-Present [phone] [place] [address] Medicare [id number] 2005 Medicare MEDICARE MEDICAR E A AND B [id number] 2005-Present [phone] [place] [address] Medicare [id number] 2005 Medicare [id number] Social History Date Type Detail Facility Tobacco smoking stat [facility] Never smoked tobacco [facility] Start: 06-22-2021 End: 02-05-2023 Alcohol intake Current non-drinker of alcohol (finding) [facility] Start: 05-06-2019 History SDOH Financial 5 [facility] Start: 05-06-2019 History SDOH Food Worry 1 [facility] Start: 05-06-2019 History SDOH Transpo rt Med 2 [facility] Start: 1940 Sex Assigned At Female C [facility] Start: 06-12-2021 End: 03-01-2022 Exposure to SARS-CoV-2 (event) Not sure [facility] Start: 06-19-2021 End: 12-26-2021 Exposure to SARS-CoV-2 (event) Unable to assess [facility] Start: 08-07-2022 End: 10-12-2022 History of Social function [facility] Work Phone: Start: 08-07-2022 End: 10-12-2022 Tobacco use panel [facility] Work Phone: Adult Depression Screening Assessment 0 [facility] Work Phone: Start: 12-03-2019 Gender identity Identifies as female gender (finding) [facility] Start: 02-06-2020 Sexual orientation Heterosexual (anand solomon) [facility] (I/We) worried wheth er (my/our) food would run out before (I/we) got money to buy more. Never true [facility] Medical Equipment Procedure Code Equipment Code Equipment Origin al Text Equipment Identifier Dates Head V40 32mm 0m m Offset Taper Biolox Delta Femoral Hip - [id number] Start: 05-05-2019 Stem Accolade Ii 4 132d Femoral - [id number] Start: 05-05-2019 Liner 32mm 10d D X3 5.9mm Acetabular Hip - [id number] Start: 05-05-2019 Shell Trident Ii 50mm D Tritanium Acetabular 3 Screw Hole Cluster Sterile - [id number] Start: 05-05-2019 Mesh Srg 24x4cm Restorelle Y - [id number] Start: 11-04-2014 Screw Trident Ii 6.5mm 25mm Bone Low Profile Hexagonal Sterile - [id number] Start: 05-05-2019 Screw Trident Ii 6.5mm 20mm Bone Low Profile Hexagonal Sterile - [id number] Start: 05-05-2019 Sling Pubvagnl Monarc Sbfsc - [id number] Start: 11-04-2014 Goals Date Patient Goal Desired Activity /State Personal health goal Clinical Notes 11-10-2019 to 03-09-2023 Telephone Encounter - Kendal Akers - 03/09/2023 10:15 AM Omer Canela DO - 02/05/2023 3:16 PM Shira Cole MD - 01/29/2023 1:21 PM EDT Note Date & Type Note Facility 03-09-2023 Miscellaneous Notes Call from patient requesting refill. Requested Prescriptions Pending Prescriptions Disp Refills tafamidis (VYNDAMAX) 61 mg capsule 30 capsule 11 Sig: Take 1 capsule by mouth once daily. Patient last seen 01/29/23 Kendal Akers documented in this encounter [facility] 02-05-2023 Note HNO ID: [id number] Author: Omer Narvaez DO Service: ? 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 3) PE. 4) Post surgical RP hematoma. HPI: The patient is a 81-year-old female who had a remote history of a right saphenous vein thrombophlebitis with clot closely approximating the right femoral vein. This developed following arthroscopic knee surgery in January 2001. The patient was anticoagulated with low molecular weight heparin, transitioned to Coumadin and continued anticoagulant therapy for approximately 4 months. She underwent left hip arthroplasty in 2002 without any venous thromboembolic complications. She did not previously have any bleeding diaphysis nor did she have any bleeding complication from anticoagulant therapy. The patient underwent elective bilateral inguinal hernia repair as well as a ventral hernia repair on July 20, 2009. She received a prophylactic dose of dalteparin 5000 units preoperatively. The morning following surgery, she received another prophylactic dose of 5000 units. The patient experienced abdominal discomfort and was noted to have a drop in hemoglobin. A CT scan of the abdomen and pelvis suggested a more distal right psoas retroperitoneal hematoma. The patient received a transfusion, was observed for another 24 hours. She did not require fresh, frozen plasma. After it was noted that she was stable, she was discharged. The patient re-presented to the emergency department approximately 2-1/2 weeks later with sudden onset chest pain and pressure when she was walking. A CT scan of the chest revealed right-sided pulmonary emboli. She underwent IVC filter placement and was discharged. Was seen by a clerical methods analyst at a tertiary center. 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 It is unclear that this represented a potential bleeding diathesis or a hypercoagulable condition. Diagnosed with SVT/DVT of the right leg 08/16/10--US showed evidence of superficial venous thrombosis of the saphaneofemoral junction extending into a varicosed branch of greater saphaneous vein. Was anticoagulated and maintained on warfarin. Underwent colonoscopy fall 2011--attributed to diverticular bleeding. Hgb was 15 in the ED. INR=1.7. Was hospitalized for diverticulitis August 2012. Had tarry stools. Underwent EGD 09/30/12--no mucosal abnormalities. Underwent right hip replacement in May 2019. No coagulation complications. Was diagnosed with cardiac amyloidosis, transthyretin/wild type. Started on tafamidis late December 2019. Presents for ongoing hematologic management. Interim history: Had left ruptured Lozano's cyst. Bruised tracked down. Got US--no DVT. Using compression stockings consistently. Legs can ache if on her feet a lot during the day. Hemorrhoid bleeding has been minimal--about 1-2 times a week. Cardiovascular symptoms under good control with her present treatment for hereditary cardiac amyloidosis. Stable dyspnea with stairs. PMH, medications and allergies personally reviewed by me today. Any changes documented in appropriate section. PHYSICAL EXAM: Vitals: Blood pressure 117/73, pulse 69, temperature 36.4 ?C (97.5 ?F), temperature source Temporal, height 162.6 cm (5' 4 ), weight 61.7 kg (136 lb), SpO2 96 %. Well-appearing and in no acute distress. EYES: Sclerae are anicteric bilaterally. LYMPHATIC: There is no palpable cervical or supraclavicular adenopathy. RESPIRATORY: Inspiratory breath sounds are of normal intensity in all hooker. CARDIOVASCULAR: Rhythm is regular. ABDOMEN: The abdomen is nondistended. Minimal ecchymoses bilaterally lower abdomen. Extremities: No swelling or edema--compression stockings on today. SKIN: No jaundice or rash. 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 -Remote history of postoperative bleeding complication. This was a retroperitoneal hematoma following inguinal hernia repair in the setting of prophylactic doses of anticoagulation pre-and postoperatively. -Has IVC filter but malpositioned. -Tolerating Lovenox injections well. No venous thromboembolic events since on this form of anticoagulation. -In the past, her fibrinogen antigen level and activity have been low but stable. She is not had previous predominant bleeding issue aside from the retroperitoneal hematoma in the setting of anticoagulation. -Reviewed CBC. Normal. -May be in need for left knee surgery. Plan: -Continue Lovenox 60 mg once day. -Follow-up (more content not included)... 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 3) PE. 4) Post surgical RP hematoma. HPI: The patient is a 81-year-old female who had a remote history of a right saphenous vein thrombophlebitis with clot closely approximating the right femoral vein. This developed following arthroscopic knee surgery in January 2001. The patient was anticoagulated with low molecular weight heparin, transitioned to Coumadin and continued anticoagulant therapy for approximately 4 months. She underwent left hip arthroplasty in 2002 without any venous thromboembolic complications. She did not previously have any bleeding diaphysis nor did she have any bleeding complication from anticoagulant therapy. The patient underwent elective bilateral inguinal hernia repair as well as a ventral hernia repair on July 20, 2009. She received a prophylactic dose of dalteparin 5000 units preoperatively. The morning following surgery, she received another prophylactic dose of 5000 units. The patient experienced abdominal discomfort and was noted to have a drop in hemoglobin. A CT scan of the abdomen and pelvis suggested a more distal right psoas retroperitoneal hematoma. The patient received a transfusion, was observed for another 24 hours. She did not require fresh, frozen plasma. After it was noted that she was stable, she was discharged. The patient re-presented to the emergency department approximately 2-1/2 weeks later with sudden onset chest pain and pressure when she was walking. A CT scan of the chest revealed right-sided pulmonary emboli. She underwent IVC filter placement and was discharged. Was seen by a clerical methods analyst at a tertiary center. 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 It is unclear that this represented a potential bleeding diathesis or a hypercoagulable condition. Diagnosed with SVT/DVT of the right leg 08/16/10--US showed evidence of superficial venous thrombosis of the saphaneofemoral junction extending into a varicosed branch of greater saphaneous vein. Was anticoagulated and maintained on warfarin. Underwent colonoscopy fall 2011--attributed to diverticular bleeding. Hgb was 15 in the ED. INR=1.7. Was hospitalized for diverticulitis August 2012. Had tarry stools. Underwent EGD 09/30/12--no mucosal abnormalities. Underwent right hip replacement in May 2019. No coagulation complications. Was diagnosed with cardiac amyloidosis, transthyretin/wild type. Started on tafamidis late December 2019. Presents for ongoing hematologic management. Interim history: Had left ruptured Lozano's cyst. Bruised tracked down. Got US--no DVT. Using compression stockings consistently. Legs can ache if on her feet a lot during the day. Hemorrhoid bleeding has been minimal--about 1-2 times a week. Cardiovascular symptoms under good control with her present treatment for hereditary cardiac amyloidosis. Stable dyspnea with stairs. PMH, medications and allergies personally reviewed by me today. Any changes documented in appropriate section. PHYSICAL EXAM: Vitals: Blood pressure 117/73, pulse 69, temperature 36.4 C (97.5 F), temperature source Temporal, height 162.6 cm (5' 4 ), weight 61.7 kg (136 lb), SpO2 96 %. Well-appearing and in no acute distress. EYES: Sclerae are anicteric bilaterally. LYMPHATIC: There is no palpable cervical or supraclavicular adenopathy. RESPIRATORY: Inspiratory breath sounds are of normal intensity in all hooker. CARDIOVASCULAR: Rhythm is regular. ABDOMEN: The abdomen is nondistended. Minimal ecchymoses bilaterally lower abdomen. Extremities: No swelling or edema--compression stockings on today. SKIN: No jaundice or rash. 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 -Remote history of postoperative bleeding complication. This was a retroperitoneal hematoma following inguinal hernia repair in the setting of prophylactic doses of anticoagulation pre-and postoperatively. -Has IVC filter but malpositioned. -Tolerating Lovenox injections well. No venous thromboembolic events since on this form of anticoagulation. -In the past, her fibrinogen antigen level and activity have been low but stable. She is not had previous predominant bleeding issue aside from the retroperitoneal hematoma in the setting of anticoagulation. -Reviewed CBC. Normal. -May be in need for left knee surgery. Plan: -Continue Lovenox 60 mg once day. 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 -Encouraged her to use compression stockings as much as possible. -OV in 6 months. Portions of this documentation were copied and pasted from previous office visit notes in order to provide a cohesive continuity of the history. The note has been reviewed and edited and updated as necessary. I spent a total of 15 minutes on the date of the service which included preparing to see the patient, [id number] patient care, completing clinical documentation, obtaining and/or reviewing separately obtained history, performing a medically appropriate examination, counseling and educating the patient/family/caregiver, communicating with other HCPs (not separately reported), and communicating results to the patient/family/caregiver. Omer Narvaez DO documented in this encounter [facility] 01-29-2023 Note HNO ID: [id number] Author: Shira Seymour MD Service: ? Author Type: Physician Type: Progress Notes Filed: 01/29/2023 2:09 PM Note Text: [facility] SECTION OF HEART FAILURE and CARDIAC TRANSPLANT MEDICINE OUTPATIENT VISIT DATE January 29, 2023 OUTPATIENT VISIT TYPE Established Patient PRIMARY CARE PHYSICIAN: Gab Pisano [address] [place] [address] CHIEF COMPLAINT: Follow up for clinical trial NURSING INTAKE (Patient?s concerns and/or recent hospitalizations/ER visits): HF Nursing Assessment: Interim Hospitalizations and/or ER visits:no Chest Pain: no Skipping or irregular heartbeats: no Shortness of breath at rest: no Shortness of breath with activity: yes Cough: yes Waking up in the middle of the night gasping for air: no Lightheadedness or dizziness: yes, occasionally Feeling like you are going to pass out: yes, sometimes Actually passing out: no Poor energy level: yes, occasionally Unintentional weight gain: no Unintentional weight loss: no Swelling in your legs,feet, abdomen: no Filling up quickly when you eat: yes HISTORY OF PRESENT ILLNESS: Since last visit, she has done reasonably well. However, she has increased neuropathy in her hands. She awakens with tingling in her hands. Her gabapentin has not helped recently. Denies any edema, orthopnea or PND. Still short of breath up 1 flight of stairs. 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/12/2008 Chest pain Cholecystitis 05/22/2022 Chronic kidney disease (CKD), stage III (moderate) (HCC) 07/27/2016 Coronary artery disease due to calcified coronary lesion 06/22/2021 Diverticulitis Diverticulosis of colon (without mention of hemorrhage) Diverticulosis of colon with hemorrhage DVT (deep venous thrombosis) (HCC) After knee surgery Dysmetabolic syndrome X Hemorrhage of gastrointestinal tract, unspecified Hernia of other specified sites of abdominal cavity without mention of obstruction or gangrene 2006 Patient has 2 or 3 hernias at abdomen and groin Internal hemorrhoids without mention of complication Other and unspecified hyperlipidemia PE (pulmonary embolism) after hernia surgery Symptomatic cholelithiasis 03/29/2022 Umbilical hernia 07/22/2009 Unspecified essential hypertension Unspecified gastritis and gastroduodenitis 03/12/2008 Unspecified hypothyroidism PAST SURGICAL HISTORY Procedure Laterality Date ARTHRP ACETBLR/PROX FEM PROSTC AGRFT/ALGRFT 2002 Hip replacement, total, left ARTHRP ACETBLR/PROX FEM PROSTC AGRFT/ALGRFT 2002 left hip COLONOSCOPY FLX DX W/COLLJ SPEC WHEN PFRMD 09/15/1998 Colonoscopy COLONOSCOPY FLX DX W/COLLJ SPEC WHEN PFRMD 08/07/2005 Colonoscopy COLONOSCOPY FLX DX W/COLLJ SPEC WHEN [facility] COLONOSCOPY FLX DX W/COLLJ SPEC WHEN PFRMD 03/05/2014 Colonoscopy COLSC FLX W/REMOVAL LESION BY HOT BX FORCEPS 03/12/2008 EGD TRANSORAL BIOPSY SINGLE/MULTIPLE 03/12/2008 EGD TRANSORAL BIOPSY SINGLE/MULTIPLE 09/30/2012 ESOPHAGOGASTRODUODENOSCOPY TRANSORAL DIAGNOSTIC 06/10/2015 EGD HYSTERECTOMY, REVISE VAGINA; COLPECTOMY 1980 Hysterectomy with bladder repair still ovaries ARTEAGA W/O FACETEC FORAMOT/DSC 1/2 VRT SGM CRV 2001 Discectomy and fusion, cervical LAPAROSCOPIC CHOLECYSTECTOMY 03/29/2022 LAPS SURG RPR RECURRENT INGUINAL HERNIA 07/22/2009 LIGJ DIVJ AND/EXCJ VARICOSE VEIN CLUSTER 1 LEG 1985 Varicose Vein Surgery PAST SURGICAL HISTORY OF 2001 cervical spine repair PAST SURGICAL HISTORY OF 11/04/2014 cystocele REMOVAL GALLBLADDER 03/29/2022 RPR 1ST INGUN HRNA AGE 5 YRS/> REDUCIBLE 1980 Hernia repair, inguinal RPR 1ST INGUN HRNA AGE 5 YRS/> REDUCIBLE 1980 Hernia repair, inguinal, bilateral RPR UMBILICAL HRNA 5 YRS/> REDUCIBLE 07/22/2009 THYROIDECTOMY TOTAL/COMPLETE 1994 TONSILLECTOMY AND ADENOIDECTOMY HX 1968 TONSILLECTOMY PRIMARY/SECONDARY Tonsillectomy X-RAY PLACEMENT, VEIN FILTER 08/13/2009 SOCIAL HISTORY Social History Tobacco Use Smoking status: Never Smokeless tobacco: Never Vaping Use Vaping Use: Never used Substance Use Topics Alcohol use: No Drug use: No FAMILY HISTORY Problem Relation Age of Onset Coronary Artery Disease Mother 83, CVA Colon Cancer Mother Coronary Artery Disease Father [place] 45 Cancer Brother multiple myeloma None Daughter None Daughter other (heart attack) Son other (fibramyalgia) Son other (blood clots in lungs) Son ALLERGIES: ALLERGIES Allergen Reactions Iodine Hives CURRENT MEDICATIONS: traMADol (ULTRAM) 50 mg tabletTake 1 tablet by mouth every 6 hours as needed for up to 99 days.Disp: 28 tabletRfl: 0 metoprolol succinate ER (TOPROL XL) 25 mg (more content not included)... [facility] 01-29-2023 History of Present illness Narrative Images from the original note were not included. [facility] SECTION OF HEART FAILURE and CARDIAC TRANSPLANT MEDICINE OUTPATIENT VISIT DATE January 29, 2023 OUTPATIENT VISIT TYPE Established Patient PRIMARY CARE PHYSICIAN: Gab Pisano [address] [place] [address] CHIEF COMPLAINT: Follow up for clinical trial NURSING INTAKE (Patient s concerns and/or recent hospitalizations/ER visits): HF Nursing Assessment: Interim Hospitalizations and/or ER visits:no Chest Pain: no Skipping or irregular heartbeats: no Shortness of breath at rest: no Shortness of breath with activity: yes Cough: yes Waking up in the middle of the night gasping for air: no Lightheadedness or dizziness: yes, occasionally Feeling like you are going to pass out: yes, sometimes Actually passing out: no Poor energy level: yes, occasionally Unintentional weight gain: no Unintentional weight loss: no Swelling in your legs,feet, abdomen: no Filling up quickly when you eat: yes HISTORY OF PRESENT ILLNESS: Since last visit, she has done reasonably well. However, she has increased neuropathy in her hands. She awakens with tingling in her hands. Her gabapentin has not helped recently. Denies any edema, orthopnea or PND. Still short of breath up 1 flight of stairs. 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/12/2008 Chest pain Cholecystitis 05/22/2022 Chronic kidney disease (CKD), stage III (moderate) (HCC) 07/27/2016 Coronary artery disease due to calcified coronary lesion 06/22/2021 Diverticulitis Diverticulosis of colon (without mention of hemorrhage) Diverticulosis of colon with hemorrhage DVT (deep venous thrombosis) (HCC) After knee surgery Dysmetabolic syndrome X Hemorrhage of gastrointestinal tract, unspecified Hernia of other specified sites of abdominal cavity without mention of obstruction or gangrene 2006 Patient has 2 or 3 hernias at abdomen and groin Internal hemorrhoids without mention of complication Other and unspecified hyperlipidemia PE (pulmonary embolism) after hernia surgery Symptomatic cholelithiasis 03/29/2022 Umbilical hernia 07/22/2009 Unspecified essential hypertension Unspecified gastritis and gastroduodenitis 03/12/2008 Unspecified hypothyroidism PAST SURGICAL HISTORY Procedure Laterality Date ARTHRP ACETBLR/PROX FEM PROSTC AGRFT/ALGRFT 2002 Hip replacement, total, left ARTHRP ACETBLR/PROX FEM PROSTC AGRFT/ALGRFT 2002 left hip COLONOSCOPY FLX DX W/COLLJ SPEC WHEN PFRMD 09/15/1998 Colonoscopy COLONOSCOPY FLX DX W/COLLJ SPEC WHEN PFRMD 08/07/2005 Colonoscopy COLONOSCOPY FLX DX W/COLLJ SPEC WHEN PFRMD [facility]oscopy COLONOSCOPY FLX DX W/COLLJ SPEC WHEN PFRMD 03/05/2014 Colonoscopy COLSC FLX W/REMOVAL LESION BY HOT BX FORCEPS 03/12/2008 EGD TRANSORAL BIOPSY SINGLE/MULTIPLE 03/12/2008 EGD TRANSORAL BIOPSY SINGLE/MULTIPLE 09/30/2012 ESOPHAGOGASTRODUODENOSCOPY TRANSORAL DIAGNOSTIC 06/10/2015 EGD HYSTERECTOMY, REVISE VAGINA; COLPECTOMY 1981 Hysterectomy with bladder repair still ovaries ARTEAGA W/O FACETEC FORAMOT/DSC 1/2 VRT SGM CRV 2001 Discectomy and fusion, cervical LAPAROSCOPIC CHOLECYSTECTOMY 03/29/2022 LAPS SURG RPR RECURRENT INGUINAL HERNIA 07/22/2009 LIGJ DIVJ &/EXCJ VARICOSE VEIN CLUSTER 1 LEG 1985 Varicose Vein Surgery PAST SURGICAL HISTORY OF 2001 cervical spine repair PAST SURGICAL HISTORY OF 11/04/2014 cystocele REMOVAL GALLBLADDER 03/29/2022 RPR 1ST INGUN HRNA AGE 5 YRS/> REDUCIBLE 1980 Hernia repair, inguinal RPR 1ST INGUN HRNA AGE 5 YRS/> REDUCIBLE 1980 Hernia repair, inguinal, bilateral RPR UMBILICAL HRNA 5 YRS/> REDUCIBLE 07/22/2009 THYROIDECTOMY TOTAL/COMPLETE 1994 TONSILLECTOMY AND ADENOIDECTOMY HX 1968 TONSILLECTOMY PRIMARY/SECONDARY <AGE 12 Tonsillectomy X-RAY PLACEMENT, VEIN FILTER 08/13/2009 SOCIAL HISTORY Social History Tobacco Use Smoking status: Never Smokeless tobacco: Never Vaping Use Vaping Use: Never used Substance Use Topics Alcohol use: No Drug use: No FAMILY HISTORY Problem Relation Age of Onset Coronary Artery Disease Mother 83, CVA Colon Cancer Mother Coronary Artery Disease Father [place] 45 Cancer Brother multiple myeloma None Daughter None Daughter other (heart attack) Son other (fibramyalgia) Son other (blood clots in lungs) Son ALLERGIES: ALLERGIES Allergen Reactions Iodine Hives CURRENT MEDICATIONS: traMADol (ULTRAM) 50 mg tablet^Take 1 tablet by mouth every 6 hours as needed for up to 99 days.^Disp: 28 tablet^Rfl: 0 metoprolol succinate ER (TOPROL XL) 25 mg 24 hr tablet^Take 0.5 tablets by mouth once daily.^Disp: 45 tablet^Rfl: 3 rosuvastatin (CRESTOR) 20 mg tablet^Take 1 tablet by mouth once daily.^Disp: 90 tablet^Rfl: 1 tiZANidine (ZANAFLEX) 4 mg tablet^Take 1 tablet by mouth every 8 hours as needed (muscle spasms).^Disp: 30 tablet^Rfl: 0 vit C/E/Zn/coppr/lutein/zeaxan (PRESERVISION AREDS-2 ORAL)^Take 1 tablet by mouth twice daily.^Disp: ^Rfl: gabapentin (NEURONTIN) 300 mg capsule^Take 2 capsules by mouth daily at bedtime for 180 days.^Disp: 360 capsule^Rfl: 0 omega-3/dha/epa/fish oil (OMEGA-3 ORAL)^Take 1 tablet by mouth once daily.^Disp: ^Rfl: levothyroxine (SYNTHROID) 88 mcg tablet^Take 1 tablet by mouth once daily.^Disp: 90 tablet^Rfl: 3 acetaminophen (TYLENOL EXTRA STRENGTH) 500 mg tablet^Take 2 tablets by mouth every 6 hours as needed for pain.^Disp: ^Rfl: ZINC ORAL^Take 1 tablet by mouth once daily.^Disp: ^Rfl: cholecalciferol, vitamin D3, (VITAMIN D3 ORAL)^Take 5,000 Units by mouth once daily.^Disp: ^Rfl: torsemide (DEMADEX) 10 mg tablet^Take 2 tablets by mouth once daily.^Disp: 180 tablet^Rfl: 3 tafamidis (VYNDAMAX) 61 mg^Take 1 capsule by mouth once daily.^Disp: 30 capsule^Rfl: 11 enoxaparin (LOVENOX) 60 mg/0.6 mL syrg^Inject 0.6 mL subcutaneously once daily.^Disp: 90 Each^Rfl: 3 vitamin A (AQUASOL A) 10,000 unit capsule^Take 10,000 Units by mouth Every 3 Days.^Disp: ^Rfl: aspirin, enteric coated (ASPIRIN, ENTERIC COATED) 81 mg EC tablet^Take 1 tablet by mouth once daily.^Disp: ^Rfl: polyethylene glycol 3350 (MIRALAX, GLYCOLAX) 17 gram/dose powder^as needed. One capful with a full glass of water, 2-3 times a day Or as directed ^Disp: ^Rfl: REVIEW OF SYSTEMS: CONSTITUTION: Negative for: Weight loss or gain, Fever. Chills, Night sweats HEENT: Negative for: Hearing loss, Nosebleeds, Mouth sores, Trouble swallowing, Dry mouth RESPIRATORY: Negative for: Cough, Difficulty breathing GASTROINTESTINAL: Negative for: Melena, Diarrhea, Nausea, Abdominal distension, Early satiety MUSCULOSKELETAL: Negative for: Arthralgias, Myalgias NEUROLOGICAL: Negative for: Headaches, Dizziness SKIN: Negative for: Rash EYES: Negative for: Vision disturbance CARDIOVASCULAR: Negative for: Chest pain, Leg swelling, Arrhythmia, Presyncope GENITOURINARY: Negative for: Difficulty urinatiing PATIENT ENTERED DATA: No flowsheet data found. No flowsheet data found. PROMIS Global Health - (T-Scores - the mean of general population = 50. Five points is a clinically meaningful difference.) 02/05/2017 02/05/2017 Physical T-Score 44.9 44.9 Mental T-Score 50.8 50.8 PHYSICAL EXAMINATION: BP 122/67 (BP Site: Left Arm) Pulse 63 Temp 36.6 C (97.9 F) (Oral) Resp 18 Ht 165.1 cm (5' 5 ) Wt 61 kg (134 lb 8 oz) SpO2 96% BMI 22.38 kg/m General: Well appearing, in no acute distress. Skin: No clubbing, no cyanosis. Eyes: Extra ocular movements intact Oropharynx: Teeth in good repair. Neck: No jugular venous distention, no carotid bruits, carotids have a normal upstroke, no palpable thyromegaly. Lungs: Clear to auscultation bilaterally, no wheezing or rhonchi. Heart: Regular rhythm, PMI not displaced, S1, S2 normal, no S3, no S4, no heaves, no rub and no murmur. Abdomen: Soft, nontender, bowel sounds normal, no palpable organomegaly, no bruits. Extremities: No peripheral edema . Grade 2/4 distal pulses bilaterally. Neuro: Oriented to person, place and time, alert, cooperative, gait coordinated. CARDIOVASCULAR MEDICINE TESTING: There were no tests performed for review. 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 On Tafamidis (Vyndamax) 61 mg every day since Dec 2019. In Cardiottransform trial Eplontersen or placebo +LVH with 1.6 and 1.9 cm with LVEF 68% on echo (11/12/2019) No changes to medications. Continue clinical trial protocol. 2) Neuropathy - will refer to neurology for evaluation and treatment recommendations. PLAN: No changes to medications. Referral to neurology. Continue study protocol. I personally interviewed, confirmed and edited the above information as obtained by others I personally spent 30 minutes in total time involved in the management and care of this patient. We discussed natural history of disease, current treatment options, and future potential treatment options. We discussed diet, exercise, other non-medical management as above. Shira Seymour MD [facility] Section Of Heart Failure and Cardiac Transplant Medicine [facility] Desk [id number] [place] [address] documented in this encounter [facility] 01-26-2023 Note HNO ID: [id number] Author: Diane Alcala RN Service: ? Author Type: Registered Nurse Type: Progress Notes Filed: 01/26/2023 11:49 AM Note Text: CDM Telephonic Outreach Provider Action/FYI CDM: CKD, CHF, Hx: Cardiac Amyloidosis, PE, DVT, Post-phlebitic syndrome, Chronic Anticoagulation Pt denies symptom concerns or needs, BP 107/62 taken by Nurse at monthly Home visit. [place], Goals completed, CKD YOUNG education sent Contacted for: Routine Telephonic Outreach Contact made with patient: Yes Patient identified by name and date of . Discussed care with patient Are you experiencing any new or worsening symptoms you need to talk about today? No Disease Specific Do you check your blood pressure at home? Yes, Enter readings: 107/ Do you have new or worsening shortness of breath with activity? No Do you have new or worsening trouble breathing while lying flat? No Do you have new or worsening swelling of legs, feet or ankles? No Do you feel like you are dehydrated for any reason, including not being able to eat or drink normally, or having less urine/much darker urine than normal for you? No Do you check your daily weight at home? Yes, Have you noticed a sudden gain in weight greater than three pounds in a day or three pounds in a week? No Based on die engraver, the following disposition is advised: No symptoms or symptoms present, not severe. Routed to: No Action Needed YOUNG Education Provided this Outreach: Yes Diane Alcala RN January 26, 2023 11:24 AM [facility] 01-26-2023 History of Present illness Narrative CDM Telephonic Outreach Provider Action/FYI CDM: CKD, CHF, Hx: Cardiac Amyloidosis, PE, DVT, Post-phlebitic syndrome, Chronic Anticoagulation Pt denies symptom concerns or needs, BP 107/62 taken by Nurse at monthly Home visit. [place], Goals completed, CKD YOUNG education sent Contacted for: Routine Telephonic Outreach Contact made with patient: Yes Patient identified by name and date of . Discussed care with patient Are you experiencing any new or worsening symptoms you need to talk about today? No Disease Specific Do you check your blood pressure at home? Yes, Enter readings: 107/ Do you have new or worsening shortness of breath with activity? No Do you have new or worsening trouble breathing while lying flat? No Do you have new or worsening swelling of legs, feet or ankles? No Do you feel like you are dehydrated for any reason, including not being able to eat or drink normally, or having less urine/much darker urine than normal for you? No Do you check your daily weight at home? Yes, Have you noticed a sudden gain in weight greater than three pounds in a day or three pounds in a week? No Based on die engraver, the following disposition is advised: No symptoms or symptoms present, not severe. Routed to: No Action Needed YOUNG Education Provided this Outreach: Yes Diane Alcala RN January 26, 2023 11:24 AM CDM Telephonic Outreach Provider Action/FYI CDM: CKD, CHF, Hx: Cardiac Amyloidosis, PE, DVT, Post-phlebitic syndrome, Chronic Anticoagulation Left a message to verify symptom status, instructed to call PCP with any changes in condition or needs. Contacted for: Routine Telephonic Outreach Contact made with patient: No, left message. Diane Alcala RN January 25, 2023 1:47 PM documented in this encounter [facility] documented in this encounter [facility]10-26-2023 NoteHNO ID: [id number] Author: Diane Alcala RN Service: ? Author Type: Registered Nurse Type: Progress Notes Filed: 01/26/2023 11:49 AM Note Text: CDM Telephonic Outreach Provider Action/FYI CDM: CKD, CHF, Hx: Cardiac Amyloidosis, PE, DVT, Post-phlebitic syndrome, Chronic Anticoagulation Left a message to verify symptom status, instructed to call PCP with any changes in condition or needs. Contacted for: Routine Telephonic Outreach Contact made with patient: No, left message. Diane Alcala RN January 25, 2023 1:47 [facility]10-26-2023 NotePatient Outreach ([facility]) YRIS VILLAGOMEZ ([id number]) 1940 F Date Time Provider Department 01/25/23 DIANE ALCALA AMBCMAlphonse During your visit today, we recorded the following information about you: Diane Alcala RN 01/26/2023 11:49 AM Signed [facility] Telephonic Outreach Provider Action/FYI CDM: CKD, CHF, Hx: Cardiac Amyloidosis, PE, DVT, Post-phlebitic syndrome, Chronic Anticoagulation Left a message to verify symptom status, instructed to call PCP with any changes in condition or needs. Contacted for: Routine Telephonic Outreach Contact made with patient: No, left message. Diane Alcala RN January 25, 2023 1:47 PM Diane Alcala RN 01/26/2023 11:49 AM Signed [facility] Telephonic Outreach Provider Action/FYI CDM: CKD, CHF, Hx: Cardiac Amyloidosis, PE, DVT, Post-phlebitic syndrome, Chronic Anticoagulation Pt denies symptom concerns or needs, BP 107/62 taken by Nurse at monthly Home visit. ADL's [place], Goals completed, CKD YOUNG education sent Contacted for: Routine Telephonic Outreach Contact made with patient: Yes Patient identified by name and date of . Discussed care with patient Are you experiencing any new or worsening symptoms you need to talk about today? No Disease Specific Do you check your blood pressure at home? Yes, Enter readings: 107/ Do you have new or worsening shortness of breath with activity? No Do you have new or worsening trouble breathing while lying flat? No Do you have new or worsening swelling of legs, feet or ankles? No Do you feel like you are dehydrated for any reason, including not being able to eat or drink normally, or having less urine/much darker urine than normal for you? No Do you check your daily weight at home? Yes, Have you noticed a sudden gain in weight greater than three pounds in a day or three pounds in a week? No Based on die engraver, the following disposition is advised: No symptoms or symptoms present, not severe. Routed to: No Action Needed YOUNG Education Provided this Outreach: Yes Diane Alcala RN January 26, 2023 11:24 AM Allergies As of Date: 01/25/2023 Noted Allergy Reaction IODINE 12/19/2004 4 - Hives Date Reviewed: 12/07/2022 Reviewed by: Nuvia Grissom APRN.SHEEP CLIPPER - Fully Assessed Reason for Visit: Community Monitoring Outreach [Other] Primary Visit Diagnosis:Stage 3 chronic kidney disease, unspecified whether stage 3a or 3b CKD ([facility]) [N18.30] Order(s):PT ED NEPHROLOGY [[id number]] Order #: [id number]: 1 Prescriptions as of 01/26/2023 - traMADol (ULTRAM) 50 mg tablet Take 1 tablet by mouth every 6 hours as needed for up to 99 days. - metoprolol succinate ER (TOPROL XL) 25 mg 24 hr tablet Take 0.5 tablets by mouth once daily. - rosuvastatin (CRESTOR) 20 mg tablet Take 1 tablet by mouth once daily. - tiZANidine (ZANAFLEX) 4 mg tablet Take 1 tablet by mouth every 8 hours as needed (muscle spasms). - vit C/E/Zn/coppr/lutein/zeaxan (PRESERVISION AREDS-2 ORAL) Take 1 tablet by mouth twice daily. - gabapentin (NEURONTIN) 300 mg capsule Take 2 capsules by mouth daily at bedtime for 180 days. - omega-3/dha/epa/fish oil (OMEGA-3 ORAL) Take 1 tablet by mouth once daily. - levothyroxine (SYNTHROID) 88 mcg tablet Take 1 tablet by mouth once daily. - acetaminophen (TYLENOL EXTRA STRENGTH) 500 mg tablet Take 2 tablets by mouth every 6 hours as needed for pain. - ZINC ORAL Take 1 tablet by mouth once daily. - cholecalciferol, vitamin D3, (VITAMIN D3 ORAL) Take 5,000 Units by mouth once daily. - torsemide (DEMADEX) 10 mg tablet Take 2 tablets by mouth once daily. - tafamidis (VYNDAMAX) 61 mg Take 1 capsule by mouth once daily. - enoxaparin (LOVENOX) 60 mg/0.6 mL syrg Inject 0.6 mL subcutaneously once daily. - vitamin A (AQUASOL A) 10,000 unit capsule Take 10,000 Units by mouth Every 3 Days. - aspirin, enteric coated (ASPIRIN, ENTERIC COATED) 81 mg EC tablet Take 1 tablet by mouth once daily. - polyethylene glycol 3350 (MIRALAX, GLYCOLAX) 17 gram/dose powder as needed. One capful with a full glass of water, 2-3 times a day Or as directed Facility-Administered Medications as of 01/26/2023 - perflutren lipid microspheres 1.3 mL in NaCl (PF) 0.9% 10 mL injection (DEFINITY) - sodium chloride 0.9 % (flush) 10 mL (BD POSIFLUSH) - perflutren lipid microspheres 1.3 mL in NaCl (PF) 0.9% 10 mL injection (DEFINITY) - sodium chloride 0.9 % (flush) 10 mL (BD POSIFLUSH) - perflutren lipid microspheres 1.3 mL in NaCl (PF) 0.9% 10 mL injection (DEFINITY) - sodium chloride 0.9 % (flush) 10 mL (BD POSIFLUSH) - perflutren lipid microspheres 1.3 mL in NaCl (PF) 0.9% 10 mL injection (DEFINITY) - sodium chloride 0.9 % (flush) 10 mL (BD POSIFLUSH) - perflutren lipid microspheres 1.3 mL in NaCl (PF) 0.9% 10 mL injection (DEFINITY) - sodium chloride 0.9 % (flush) 10 mL (BD POSIFLUSH) - (more content not included)...[facility]09-28-2023 NoteHNO ID: [id number] Author: Diane Alcala RN Service: ? Author Type: Registered Nurse Type: Progress Notes Filed: 12/28/2022 7:57 PM Note Text: CDM Telephonic Outreach Provider Action/FYI CDM: CKD, CHF, Hx: Cardiac Amyloidosis, PE, DVT, Post-phlebitic syndrome, Chronic Anticoagulation Left a message to verify symptom status, instructed to call PCP with any changes in condition or needs. Contacted for: Routine Telephonic Outreach Contact made with patient: No, left message. Diane Alcala RN December 28, 2022 7:56 [facility]09-27-2023 NoteHNO ID: [id number] Author: Diane Alcala RN Service: ? Author Type: Registered Nurse Type: Progress Notes Filed: 12/28/2022 7:57 PM Note Text: CDM Telephonic Outreach Provider Action/FYI CDM: CKD, CHF, Hx: Cardiac Amyloidosis, PE, DVT, Post-phlebitic syndrome , Chronic Anticoagulation Left a message to verify symptom status, instructed to call PCP with any changes in condition or needs. Contacted for: Routine Telephonic Outreach Contact made with patient: No, left message. Diane Alcala RN December 27, 2022 12:59 [facility]09-27-2023 NotePatient Outreach ([facility]) YRIS VILLAGOMEZ ([id number]) 1940 F Date Time Provider Department 12/27/22 DIANE ALCALA [facility] During your visit today, we recorded the following information about you: Diane Alcala RN 12/28/2022 7:57 PM Signed [facility] Telephonic Outreach Provider Action/FYI CDM: CKD, CHF, Hx: Cardiac Amyloidosis, PE, DVT, Post-phlebitic syndrome , Chronic Anticoagulation Left a message to verify symptom status, instructed to call PCP with any changes in condition or needs. Contacted for: Routine Telephonic Outreach Contact made with patient: No, left message. Diane Alcala RN December 27, 2022 12:59 PM Diane Alcala RN 12/28/2022 7:57 PM Signed CDM Telephonic Outreach Provider Action/FYI CDM: CKD, CHF, Hx: Cardiac Amyloidosis, PE, DVT, Post-phlebitic syndrome, Chronic Anticoagulation Left a message to verify symptom status, instructed to call PCP with any changes in condition or needs. Contacted for: Routine Telephonic Outreach Contact made with patient: No, left message. Diane Alcala RN December 28, 2022 7:56 PM Allergies As of Date: 12/27/2022 Noted Allergy Reaction IODINE 12/19/2004 4 - Hives Date Reviewed: 12/07/2022 Reviewed by: Nuvia Grissom APRN.SHEEP CLIPPER - Fully Assessed Reason for Visit: Community Monitoring Outreach [Other] Prescriptions as of 12/28/2022 - traMADol (ULTRAM) 50 mg tablet Take 1 tablet by mouth every 6 hours as needed for up to 99 days. - metoprolol succinate ER (TOPROL XL) 25 mg 24 hr tablet Take 0.5 tablets by mouth once daily. - rosuvastatin (CRESTOR) 20 mg tablet Take 1 tablet by mouth once daily. - tiZANidine (ZANAFLEX) 4 mg tablet Take 1 tablet by mouth every 8 hours as needed (muscle spasms). - vit C/E/Zn/coppr/lutein/zeaxan (PRESERVISION AREDS-2 ORAL) Take 1 tablet by mouth twice daily. - gabapentin (NEURONTIN) 300 mg capsule Take 2 capsules by mouth daily at bedtime for 180 days. - omega-3/dha/epa/fish oil (OMEGA-3 ORAL) Take 1 tablet by mouth once daily. - levothyroxine (SYNTHROID) 88 mcg tablet Take 1 tablet by mouth once daily. - acetaminophen (TYLENOL EXTRA STRENGTH) 500 mg tablet Take 2 tablets by mouth every 6 hours as needed for pain. - ZINC ORAL Take 1 tablet by mouth once daily. - cholecalciferol, vitamin D3, (VITAMIN D3 ORAL) Take 5,000 Units by mouth once daily. - torsemide (DEMADEX) 10 mg tablet Take 2 tablets by mouth once daily. - tafamidis (VYNDAMAX) 61 mg Take 1 capsule by mouth once daily. - enoxaparin (LOVENOX) 60 mg/0.6 mL syrg Inject 0.6 mL subcutaneously once daily. - vitamin A (AQUASOL A) 10,000 unit capsule Take 10,000 Units by mouth Every 3 Days. - aspirin, enteric coated (ASPIRIN, ENTERIC COATED) 81 mg EC tablet Take 1 tablet by mouth once daily. - polyethylene glycol 3350 (MIRALAX, GLYCOLAX) 17 gram/dose powder as needed. One capful with a full glass of water, 2-3 times a day Or as directed Facility-Administered Medications as of 12/28/2022 - perflutren lipid microspheres 1.3 mL in NaCl (PF) 0.9% 10 mL injection (DEFINITY) - sodium chloride 0.9 % (flush) 10 mL (BD POSIFLUSH) - perflutren lipid microspheres 1.3 mL in NaCl (PF) 0.9% 10 mL injection (DEFINITY) - sodium chloride 0.9 % (flush) 10 mL (BD POSIFLUSH) - perflutren lipid microspheres 1.3 mL in NaCl (PF) 0.9% 10 mL injection (DEFINITY) - sodium chloride 0.9 % (flush) 10 mL (BD POSIFLUSH) - perflutren lipid microspheres 1.3 mL in NaCl (PF) 0.9% 10 mL injection (DEFINITY) - sodium chloride 0.9 % (flush) 10 mL (BD POSIFLUSH) - perflutren lipid microspheres 1.3 mL in NaCl (PF) 0.9% 10 mL injection (DEFINITY) - sodium chloride 0.9 % (flush) 10 mL (BD POSIFLUSH) - perflutren lipid microspheres 1.3 mL in NaCl (PF) 0.9% 10 mL injection (DEFINITY) - sodium chloride 0.9 % (flush) 10 mL (BD POSIFLUSH) Problem List As Of Date 12/27/2022 Noted Resolved Mixed hyperlipidemia [E78.2] Essential hypertension [I10] Hypothyroidism [E03.9] 09/30/2018 INSOMNIA NOS [G47.00] 05/16/2005 Adjustment disorder with depressed mood [F43.21]05/16/2005 08/28/2013 Abdominal pain, unspecified site [R10.9] 08/28/2013 INGUINAL HERNIA, BILAT, RECURRENT W/O GANGRENE/*11/30/2006 08/28/2013 Blood in stool [K92.1] 03/11/2008 08/28/2013 Benign neoplasm of colon [D12.6] 03/12/2008 08/28/2013 Unspecified gastritis and gastroduodenitis with*03/12/2008 08/28/2013 DIVERTICULOSIS OF COLON W/O BLEED [K57.30] 03/12/2008 Umbilical hernia without mention of obstruction*06/21/2009 08/28/2013 Pulmonary embolism (HCC) [I26.99] 08/26/2009 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 Status post inguinal hernia repair [Z98.890, Z8*11/23/2009 08/28/2013 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] 12/02/2009 Ac DVT/embl low ext NOS [I82.409] 08/23/2010 11/19/2019 DVT (deep venous thrombosis) (HCC) [I82.409] 10/17/2010 09/30/2018 Groin pain [R10.3 (more content not included)...[facility] 12-13-2022 Evaluation note* Diagnosis Medicare annual wellness visit, subsequent- Primary Routine general medical examination at a [facility] care facility Stage 3a chronic kidney disease (HCC) Essential hypertension Unspecified essential hypertension Mixed hyperlipidemia Acquired hypothyroidism Unspecified hypothyroidism 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 Author Type: Nurse Practitioner Type: Progress Notes Filed: 12/13/2022 7:25 AM Note Text: CC: Patient presents with: Medicare Wellness Exam: Annual Wellness HPI Yris Villagomez is a 81 year old female who presents today for medicare wellness but also with recent visits of LLE swelling pain and bruisng. Recent basal cell carcinoma removal from chest. Sees Dr. Li in a few weeks for full body scan. Because of this, when she recently saw orthopedics for left knee pain, injection was deferred because of recent excision. Sees orthopedic next month. After that, did see Dr. Hernandez for swelling, soreness of left calf into knee and into thigh along with ecchymosis. Was evaluated for blood clot as she has history of DVT and PE (2009) but negative. Is [facility] and sees hematology. Swelling has improved with only a small amount to her foot. Bruising is still improving but present and still with tenderness. HTN: Ms. Villagomez indicates that she is feeling well and denies any symptoms referable to elevated blood pressure. Specifically denies headache, chest pain, palpitations, and dyspnea. Patient denies any side effects of her medication(s) and is compliant with their regimen. She does check BP's away from this office with average BP's in the 112/70s range. Yris works out regularly 3-4 times per week with walking and cleaning her house. She watches her diet for sodium, low fat and low cholesterol most of the time. Last 3 Encounter BP Readings: Date: BP: 12/07/2022 118/70 12/05/2022 126/76 11/22/2022 132/84 Had lab work done for research med last night. Unsure what was drawn. 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/12/2008 Chest pain Cholecystitis 05/22/2022 Chronic kidney disease (CKD), stage III (moderate) (HCC) 07/27/2016 Coronary artery disease due to calcified coronary lesion 06/22/2021 Diverticulitis Diverticulosis of colon (without mention of hemorrhage) Diverticulosis of colon with hemorrhage DVT (deep venous thrombosis) ([facility]) After knee surgery Dysmetabolic syndrome X Hemorrhage of gastrointestinal tract, unspecified Hernia of other specified sites of abdominal cavity without mention of obstruction or gangrene 2006 Patient has 2 or 3 hernias at abdomen and groin Internal hemorrhoids without mention of complication Other and unspecified hyperlipidemia PE (pulmonary embolism) after hernia surgery Symptomatic cholelithiasis 03/29/2022 Umbilical hernia 07/22/2009 Unspecified essential hypertension Unspecified gastritis and gastroduodenitis 03/12/2008 Unspecified hypothyroidism PAST SURGICAL HISTORY Procedure Laterality Date ARTHRP ACETBLR/PROX FEM PROSTC AGRFT/ALGRFT 2002 Hip replacement, total, left ARTHRP ACETBLR/PROX FEM PROSTC AGRFT/ALGRFT 2002 left hip COLONOSCOPY FLX DX W/COLLJ SPEC WHEN PFRMD 09/15/1998 Colonoscopy COLONOSCOPY FLX DX W/COLLJ SPEC WHEN PFRMD 08/07/2005 Colonoscopy COLONOSCOPY FLX DX W/COLLJ SPEC WHEN PFRMD 06/23/2011 [facility] Colonoscopy COLONOSCOPY FLX DX W/COLLJ SPEC WHEN PFRMD 03/05/2014 Colonoscopy COLSC FLX W/REMOVAL LESION BY HOT BX FORCEPS 03/12/2008 EGD TRANSORAL BIOPSY SINGLE/MULTIPLE 03/12/2008 EGD TRANSORAL BIOPSY SINGLE/MULTIPLE 09/30/2012 ESOPHAGOGASTRODUODENOSCOPY TRANSORAL DIAGNOSTIC 06/10/2015 EGD HYSTERECTOMY, REVISE VAGINA; COLPECTOMY 1980 Hysterectomy with bladder repair still ovaries ARTEAGA W/O FACETEC FORAMOT/DSC 04/03 VRT SGM CRV 2001 Discectomy and fusion, cervical LAPAROSCOPIC CHOLECYSTECTOMY 03/29/2022 LAPS SURG RPR RECURRENT INGUINAL HERNIA 07/22/2009 LIGJ DIVJ AND/EXCJ VARICOSE VEIN CLUSTER 1 LEG 1985 Varicose Vein Surgery PAST SURGICAL HISTORY OF 2001 cervical spine repair PAST SURGICAL HISTORY OF 11/04/2014 cystocele REMOVAL GALLBLADDER 03/29/2022 RPR 1ST INGUN HRNA AGE 5 YRS/> REDUCIBLE 1980 Hernia repair, inguinal RPR 1ST INGUN HRNA AGE 5 YRS/> REDUCIBLE 1980 Hernia repair, inguinal, bilateral RPR UMBILICAL HRNA 5 YRS/> REDUCIBLE 07/22/2009 THYROIDECTOMY TOTAL/COMPLETE 1994 TONSILLECTOMY AND ADENOIDECTOMY HX 1968 TONSILLECTOMY PRIMARY/SECONDARY Tonsillectomy X-RAY PLACEMENT, VEIN FILTER 08/13/2009 ALLERGIES Iodine MEDICATIONS metoprolol succinate ER (TOPROL XL) 25 mg 24 hr tabletTake 0.5 tablets by mouth once daily.Disp: 45 tabletRfl: 3 rosuvastatin (CRESTOR) 20 mg tabletTake 1 tablet by mouth once daily.Disp: 90 tabletRfl: 1 tiZANidine (ZANAFLEX) 4 mg tabletTake 1 tablet by mouth every 8 hours as needed (muscle spasms).Disp: 30 tabletRfl: 0 g (more content not included)...[facility]09-07-2023 Instructions* Patient Instructions* Nuvia Grissom APRN.SHEEP CLIPPER - 12/07/2022 9:41 AM EDT Screening schedule The following prevention plan is recommended: SHINGRIX VACCINE(3 of 3) due on 03/16/2020 COVID-19 VACCINE(4 - Moderna series) due on 05/18/2021 LDL CHOLESTEROL due on 12/29/2022 WHAT YOU CAN DO TO PREVENT FALLS Many falls can be prevented. By making some changes, you can lower your chances of falling. Four things YOU can do to prevent falls for you* and your caregiver 1. Begin a regular exercise program Exercise is one of the most important ways to lower your chances of falling. It makes you stronger and helps you feel better. Exercises that improve balance and coordination (like David [place]) are the most helpful. Lack of exercise leads to weakness and increases your chances of falling. Ask your doctor or health care provider about the best type of exercise program for you. 2. Have your health care provider review your medicines Have your doctor or pharmacist review all the medicines you take, even [id number] medicines. As you get older, the way medicines work in your body can change. Some medicines, or combinations of medicines, can make you sleepy or dizzy andcan cause you to fall. 3. Have your vision checked Have your eyes checked by an eye doctor at least once a year. You may be wearing the wrong glasses or have a condition like glaucoma or cataracts that limits your vision. Poor vision can increase your chances of falling. 4. Make your home safer About half of all falls happen at home. To make your home safer: Remove things you can trip over (like papers, books, clothes, and shoes) from stairs and places where you walk. Remove small throw rugs or use double-sided tape to keep the rugs from slipping. Keep items you use often in cabinets you can reach easily without using a step stool. Have grab bars put in next to your toilet and in the tub or shower. Use non-slip mats in the bathtub and on shower floors. Improve the lighting in your home. As you get older, you need brighter lights to see well. Hang light-weight curtains or shades to reduce glare. Have handrails and lights put in on all staircases. Wear shoes both inside and outside the house. Avoid going barefoot or wearing slippers. For more information, contact: Centers for Disease Control and Prevention www.cdc.gov/injury * This information may not apply if you have certain medical conditions. [facility] History of Present illness Narrative* Nuvia Grissom APRN.CNP - 12/07/2022 9:28 AM EDT CC: Patient presents with: Medicare Wellness Exam: Annual Wellness HPI Yris Villagomez is a 81 year old female who presents today for medicare wellness but also with recent visits of LLE swelling pain and bruisng. Recent basal cell carcinoma removal from chest. Sees Dr. Li in a few weeks for full body scan. Because of this, when she recently saw orthopedics for left knee pain, injection was deferred becauseof recent excision. Sees orthopedic next month. After that, did see Dr. Hernandez for swelling, soreness of left calf into knee and into thigh along with ecchymosis. Was evaluated for blood clot as she has history of DVT and PE (2009) but negative. Is on [facility] and sees hematology. Swelling has improved with only a small amount to her foot. Bruising is still improving but present and still with tenderness. HTN: Ms. Villagomez indicates that she is feeling well and denies any symptoms referable to elevated blood pressure. Specifically denies headache, chest pain, palpitations, and dyspnea. Patient denies any side effects of her medication(s) and is compliant with their regimen. She does check BP's away from this office with average BP's in the 112/70s range. Yris works out regularly 3-4 times per week with walking and cleaning her house. She watches her diet for sodium, low fat and low cholesterol most of the time. Last 3 Encounter BP Readings: Date: BP: 12/07/2022 118/70 12/05/2022 126/76 11/22/2022 132/84 Had lab work done for research med last night. Unsure what was drawn. 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/12/2008 Chest pain Cholecystitis 05/22/2022 Chronic kidney disease (CKD), stage III (moderate) (HCC) 07/27/2016 Coronary artery disease due to calcified coronary lesion 06/22/2021 Diverticulitis Diverticulosis of colon (without mention of hemorrhage) Diverticulosis of colon with hemorrhage DVT (deep venous thrombosis) (HCC) After knee surgery Dysmetabolic syndrome X Hemorrhage of gastrointestinal tract, unspecified Hernia of other specified sites of abdominal cavity without mention of obstruction or gangrene 2006 Patient has 2 or 3 hernias at abdomen and groin Internal hemorrhoids without mention of complication Other and unspecified hyperlipidemia PE (pulmonary embolism) after hernia surgery Symptomatic cholelithiasis 03/29/2022 Umbilical hernia 07/22/2009 Unspecified essential hypertension Unspecified gastritis and gastroduodenitis 03/12/2008 Unspecified hypothyroidism PAST SURGICAL HISTORY Procedure Laterality Date ARTHRP ACETBLR/PROX FEM PROSTC AGRFT/ALGRFT 2002 Hip replacement, total, left ARTHRP ACETBLR/PROX FEM PROSTC AGRFT/ALGRFT 2002 left hip COLONOSCOPY FLX DX W/COLLJ SPEC WHEN PFRMD 09/15/1998 Colonoscopy COLONOSCOPY FLX DX W/COLLJ SPEC WHEN PFRMD 08/07/2005 Colonoscopy COLONOSCOPY FLX DX W/COLLJ SPEC [facility] COLONOSCOPY FLX DX W/COLLJ SPEC WHEN PFRMD 03/05/2014 Colonoscopy COLSC FLX W/REMOVAL LESION BY HOT BX FORCEPS 03/12/2008 EGD TRANSORAL BIOPSY SINGLE/MULTIPLE 03/12/2008 EGD TRANSORAL BIOPSY SINGLE/MULTIPLE 09/30/2012 ESOPHAGOGASTRODUODENOSCOPY TRANSORAL DIAGNOSTIC 06/10/2015 EGD HYSTERECTOMY, REVISE VAGINA; COLPECTOMY 1981 Hysterectomy with bladder repair still ovaries ARTEAGA W/O FACETEC FORAMOT/DSC 1/2 VRT SGM CRV 2001 Discectomy and fusion, cervical LAPAROSCOPIC CHOLECYSTECTOMY 03/29/2022 LAPS SURG RPR RECURRENT INGUINAL HERNIA 07/22/2009 LIGJ DIVJ &/EXCJ VARICOSE VEIN CLUSTER 1 LEG 1985 Varicose Vein Surgery PAST SURGICAL HISTORY OF 2001 cervical spine repair PAST SURGICAL HISTORY OF 11/04/2014 cystocele REMOVAL GALLBLADDER 03/29/2022 RPR 1ST INGUN HRNA AGE 5 YRS/> REDUCIBLE 1980 Hernia repair, inguinal RPR 1ST INGUN HRNA AGE 5 YRS/> REDUCIBLE 1980 Hernia repair, inguinal, bilateral RPR UMBILICAL HRNA 5 YRS/> REDUCIBLE 07/22/2009 THYROIDECTOMY TOTAL/COMPLETE 1994 TONSILLECTOMY AND ADENOIDECTOMY HX 1968 TONSILLECTOMY PRIMARY/SECONDARY <AGE 12 Tonsillectomy X-RAY PLACEMENT, VEIN FILTER 08/13/2009 ALLERGIES Iodine MEDICATIONS metoprolol succinate ER (TOPROL XL) 25 mg 24 hr tablet^Take 0.5 tablets by mouth once daily.^Disp: 45 tablet^Rfl: 3 rosuvastatin (CRESTOR) 20 mg tablet^Take 1 tablet by mouth once daily.^Disp: 90 tablet^Rfl: 1 tiZANidine (ZANAFLEX) 4 mg tablet^Take 1 tablet by mouth every 8 hours as needed (muscle spasms).^Disp: 30 tablet^Rfl: 0 gabapentin (NEURONTIN) 300 mg capsule^Take 2 capsules by mouth daily at bedtime for 180 days.^Disp:360 capsule^Rfl: 0 traMADol (ULTRAM) 50 mg tablet^Take 1 tablet by mouth every 6 hours as needed for up to 99 days.^Disp: 28 tablet^Rfl: 0 levothyroxine (SYNTHROID) 88 mcg tablet^Take 1 tablet by mouth once daily.^Disp: 90 tablet^Rfl: 3 torsemide (DEMADEX) 10 mg tablet^Take 2 tablets by mouth once daily.^Disp: 180 tablet^Rfl: 3 tafamidis (VYNDAMAX) 61 mg^Take 1 capsule by mouth once daily.^Disp: 30 capsule^Rfl: 11 enoxaparin (LOVENOX) 60 mg/0.6 mL syrg^Inject 0.6 mL subcutaneously once daily.^Disp: 90 Each^Rfl: 3 aspirin, enteric coated (ASPIRIN, ENTERIC COATED) 81 mg EC tablet^Take 1 tablet by mouth once daily.^Disp: ^Rfl: vit C/E/Zn/coppr/lutein/zeaxan (PRESERVISION AREDS-2 ORAL)^Take 1 tablet by mouth twice daily.^Disp: ^Rfl: omega-3/dha/epa/fish oil (OMEGA-3 ORAL)^Take 1 tablet by mouth once daily.^Disp: ^Rfl: acetaminophen (TYLENOL EXTRA STRENGTH) 500 mg tablet^Take 2 tablets by mouth every 6 hours as needed for pain.^Disp: ^Rfl: ZINC ORAL^Take 1 tablet by mouth once daily.^Disp: ^Rfl: cholecalciferol, vitamin D3, (VITAMIN D3 ORAL)^Take 5,000 Units by mouth once daily.^Disp: ^Rfl: vitamin A (AQUASOL A) 10,000 unit capsule^Take 10,000 Units by mouth Every 3 Days.^Disp: ^Rfl: polyethylene glycol 3350 (MIRALAX, GLYCOLAX) 17 gram/dose powder^as needed. One capful with a full glass of water, 2-3 times a day Or as directed ^Disp: ^Rfl: FAMILY HISTORY Problem Relation Age of Onset Coronary Artery Disease Mother 83, CVA Colon Cancer Mother Coronary Artery Disease Father [place] 45 Cancer Brother multiple myeloma None Daughter None Daughter other (heart attack) Son other (fibramyalgia) Son other (blood clots in lungs) Son Social History Tobacco Use Smoking status: Never Smokeless tobacco: Never Vaping Use Vaping Use: Never used Substance Use Topics Alcohol use: No Drug use: No PHYSICAL EXAM BP 118/70 Pulse 68 Resp 16 Wt 60.3 kg (133 lb) SpO2 96% BMI 22.13 kg/m General Appearance: well appearing, in no acute distress, alert Skin: Skin color, texture, turgor normal for age; Eyes: conjunctiva pink and moist, no icterus, sclera white, non-injected Lungs: Lungs clear to auscultation. No wheezing, rhonchi, rales. Heart: RRR without murmur, gallop, or rubs. No ectopy Health maintenance reviewed with patient: SHINGRIX VACCINE(3 of 3) due on 03/16/2020 COVID-19 VACCINE(4 - Moderna series) due on 05/18/2021 LDL CHOLESTEROL due on 12/29/2022 DTAP,TDAP,TD(2 - Td or Tdap) due on 09/25/2024 DIABETES SCREEN due on 08/07/2025 BONE DENSITY Completed INFLUENZA Completed DEPRESSION ASSESSMENT Completed PNEUMOCOCCAL: 65+ Completed COLORECTAL CANCER SCREENING Discontinued ADVANCE DIRECTIVE DISCUSSION Discontinued DATA REVIEWED: No new labs Need to find out what lab work was completed. ASSESSMENT/PLAN: 1. Medicare annual wellness visit, subsequent - ICD9: V70.0, ICD10: Z00.00 (primary diagnosis) - Counseled on healthy diet and regular exercise - Calcium intake with supplements or by diet of 1000 mg/day for under 50, 1200- 1500 mg/day for 50+ - Depression screening tool completed and reviewed with patient. Based on score and interview, patient is not at risk for depression and recommended no further intervention at this time. - Follow up for annual exam in one year 2. Stage 3a chronic kidney disease (HCC) - ICD9: 585.3, ICD10: N18.31 - eGFR: 58 Stable - Counseled on avoiding NSAIDs, adequate hydration - CBC - COMP METABOLIC PANEL 3. Essential hypertension - ICD9: 401.9, ICD10: I10 - Controlled - Continue current medications - Recommend home blood pressure monitoring, to bring results to next visit - Encouraged sodium restriction, DASH or Mediterranean diet - Recommend regular aerobic exercise - CBC - COMP METABOLIC PANEL 4. Mixed hyperlipidemia - ICD9: 272.2, ICD10: E78.2 - Control undetermined, due for labs - Continue current medications - Counseled on healthy diet and regular exercise - Discussed need for and benefit of weight loss. BMI 22.13 kg/(m^2) - LIPID PANEL BASIC - COMP METABOLIC PANEL 5. Acquired hypothyroidism - ICD9: 244.9, ICD10: E03.9 - Instructed patient on importance of taking on an empty stomach either first thing in the morning or at bedtime. - TSH BLD 6. Post-phlebitic syndrome - ICD9: 459.10, ICD10: I87.009 - TRAMADOL 50 MG TABLET PDMP website checked and validated. All prescriptions have been APPROPRIATELY filled. No suspiciousactivity was identified. 12/07/2022 by Nuvia Grissom APRN.ALESSANDRO Prescription instructions reviewed with patient as applicable. Potential red flag symptoms discussed with the patient. Reviewed appropriate action plan to take if red flag symptoms occur. Patient agreeable to treatment plan. Nuvia Grissom APRN.CNP Yris Villagomez is a 81 year old female here for a Medicare wellness visit. Health Risk Assessment In general, health is: Good Concerns with balance:Several days but only with quick movements and not severe. Concerns with teeth or dentures:Not at all Concerns with sexual function:Not at all [place] anxious, stressed, angry, irritable, lonely, isolated, or had thoughts of hurting themself: Not at all Has little interest or pleasure in doing things: Not at all Bothered by feeling down, depressed, or hopeless: Not at all Needs help with grocery shopping, cooking, housework, bathing, grooming, dressing, eating, sitting or standing, walking, using the toilet, handling finances, taking medications, using the telephone, or driving: No Following safety precautions in the home environment and vehicle: removed throw rugs from floors, installed grab bars in the bathroom, handrails in stairwells, having adequate lighting, wearing seatbelt at all times?: Yes Smokes cigarettes, vapes, or chew tobacco: No Eats healthy foods including fruits, vegetables, whole grains, and fiber-rich foods: Nearly every day Number of days per week engages in exercise: 4 days Average alcohol consumption: Monthly or less Current Providers Specialists: I have reviewed specialist-related care of the patient in the medical record. Hematology: Dr. Kirk Cardiology: Dr. Johansen Dermatology: Dr. Li. Specialist: Dr. العلي Medical/Family history review Reviewed and updated problem list, medical/surgical/family/social history, medications, and allergies. Opioid use review Patient is currently using opioids. Prescribed tramadol HCl (last 90 days) Does patient have risk factors for opioid abuse? No Pain overview Current pain concerns and treatment plan reviewed. Patient stable on current treatment plan. Depression screening Depression Screening PHQ-2 Score 06/02/2022 0 Depression screening tool completed and reviewed. Based on score and interview, patient is at risk for depression. Screening tool discussed with patient, and I recommended no further intervention at this time. Cognitive screening Mini Cog Score: 5 Functional Observation Was the patient's timed Up & Go test unsteady or ? 12 seconds? No Advance Care Planning End of Life planning discussed, including patient's advanced directive wishes: Yes POA is [place] Measurements BP 118/70 Pulse 68 Resp 16 Wt 133 lb (60.3kg) SpO2 96% Visual acuity (required for Welcome to Medicare): follows with optometry/ophthalmology. Has maculardegeneration so sees them regularly Hearing Evaluation: reports difficulty hearing in loud environments Assessment/Plan Medicare annual wellness visit, subsequent (Z00.00) - Counseled on healthy diet and regular exercise - Fall avoidance - Vaccines recommended COVID-19 - Depression screening [facility] Miscellaneous Notes* Telephone Encounter - Debbie Sorto LPN - 12/06/2022 4:50 PM EDT Message left to pt with info also. * Telephone Encounter - Debbie Sorto LPN - 12/06/2022 4:17 PM EDT My chart message to pt. * Telephone Encounter - Debbie Sorto LPN - 12/06/2022 4:16 PM EDT ----- Message from Eugenio Hernandez MD sent at 12/06/2022 1:03 PM EDT ----- No DVT. Swelling is from venous insufficiency and ruptured Lozano's cyst behind left knee. Rest, heat, frequent leg elevation. Pain medication as needed. Follow up with orthopedics. [facility] NoteHNO ID: [id number] Author: Diane Alcala RN Service: ? Author Type: Registered Nurse Type: Progress Notes Filed: 12/06/2022 2:37 PM Note Text: CDM Telephonic Outreach Provider Action/FYI :Routed updates to Dr. Hernandez/ Nuvia Grissom CNP CDM: CKD, CHF, Hx: Cardiac Amyloidosis, PE, DVT, Post-phlebitic syndrome , Chronic Anticoagulation Spk with Pt she noted she had a lesion on her chest, removed by Dermatology 11/27/22 11/28/22 Left leg x-rayed by Ortho, Dr. Robbins, 12/05/22 Left calf evaluated by Dr. Hernandez, 12/05/22 Ultrasound Leg completed, Pt reported negative for DVT Pt denies CP, has chronic unchanged Sob with activity, denies Sob at rest, Pulse Oximeter 96%-97% Pt noted Left leg edema is improved but present from ankle to calf region, Left Leg bruising and tenderness present at ankle, Pt notes foot is warm and pink, noting she has chronic Neuropathy in Bilateral feet, takes Gabapentin at HS Research Nurse is coming 12/06/22 today at 6:00 PM, to draw lab work and takes vital signs Pt has Appt 12/07/22 Nuvia Grissom CNP to evaluated Left leg Pt Instructed to call PCP/ [facility] for changes in symptoms or concerns, ER for Urgent condition changes, CP, Sob or worsening symptoms. Pt verbalized understanding and appreciation for call. Contacted for: Routine Telephonic Outreach Contact made with patient: Yes Patient identified by name and date of . Discussed care with patient Are you experiencing any new or worsening symptoms you need to talk about today? Yes Based on die engraver, the following disposition is advised: No symptoms or symptoms present, not severe. Routed to: No Action Needed YOUNG Education Provided this Outreach: No Diane Alcala RN December 06, 2022 2:28 [facility]09-06-2023 History of Present illness Narrative* Diane Alcala RN - 12/06/2022 1:41 PM EDT CDM Telephonic Outreach Provider Action/FYI :Routed updates to Dr. Hernandez/ Nuvia Grissom CNP CDM: CKD, CHF, Hx: Cardiac Amyloidosis, PE, DVT, Post-phlebitic syndrome , Chronic Anticoagulation Spk with Pt she noted she had a lesion on her chest, removed by Dermatology 11/27/22 11/28/22 Left leg x-rayed by Ortho, Dr. Robbins, 12/05/22 Left calf evaluated by Dr. Hernandez, 12/05/22 Ultrasound Leg completed, Pt reported negative for DVT Pt denies CP, has chronic unchanged Sob with activity, denies Sob at rest, Pulse Oximeter 96%-97% Pt noted Left leg edema is improved but present from ankle to calf region, Left Leg bruising and tenderness present at ankle, Pt notes foot is warm and pink, noting she has chronic Neuropathy in Bilateral feet, takes Gabapentin at HS Research Nurse is coming 12/06/22 today at 6:00 PM, to draw lab work and takes vital signs Pt has Appt 12/07/22 Nuvia Grissom CNP to evaluated Left leg Pt Instructed to call PCP/ [facility] CLIPPER for changes in symptoms or concerns, ER for Urgent condition changes, CP, Sob or worsening symptoms. Pt verbalized understanding and appreciation for call. Contacted for: Routine Telephonic Outreach Contact made with patient: Yes Patient identified by name and date of . Discussed care with patient Are you experiencing any new or worsening symptoms you need to talk about today? Yes Based on die engraver, the following disposition is advised: No symptoms or symptoms present, not severe. Routed to: No Action Needed YOUNG Education Provided this Outreach: No Diane Alcala RN December 06, 2022 2:28 PM * Diane Alcala RN - 12/05/2022 12:48 PM EDT CDM Telephonic Outreach Provider Action/DIALLOI CDM; CHF, CKD Left a message to verify symptom status, instructed to call PCP with any changes in condition or needs. Contacted for: Routine Telephonic Outreach Contact made with patient: No, left message. Diane Alcala RN December 05, 2022 1:06 PM [facility] NoteHNO ID: [id number] Author: Diane Alcala RN Service: ? Author Type: Registered Nurse Type: Progress Notes Filed: 12/06/2022 2:37 PM Note Text: CDM Telephonic Outreach Provider Action/FYI CDM; CHF, CKD Left a message to verify symptom status, instructed to call PCP with any changes in condition or needs. Contacted for: Routine Telephonic Outreach Contact made with patient: No, left message. Diane Alcala RN December 05, 2022 1:06 [facility]09-05-2023 NotePatient Outreach ([facility]) PAULYIRS Pena ([id number]) 1940 F Date Time Provider Department 12/05/22 DIANE ALCALA During your visit today, we recorded the following information about you: Diane Alcala RN 12/06/2022 2:37 PM Signed CDM Telephonic Outreach Provider Action/FYI CDM; CHF, CKD Left a message to verify symptom status, instructed to call PCP with any changes in condition or needs. Contacted for: Routine Telephonic Outreach Contact made with patient: No, left message. Diane Alcala RN December 05, 2022 1:06 PM Diane Alcala RN 12/06/2022 2:37 PM Signed CDM Telephonic Outreach Provider Action/FYI :Routed updates to Dr. Hernandez/ Nuvia Grissom CNP CDM: CKD, CHF, Hx: Cardiac Amyloidosis, PE, DVT, Post-phlebitic syndrome , Chronic Anticoagulation Spk with Pt she noted she had a lesion on her chest, removed by Dermatology 11/27/22 11/28/22 Left leg x-rayed by Ortho, Dr. Robbins, 12/05/22 Left calf evaluated by Dr. Hernandez, 12/05/22 Ultrasound Leg completed, Pt reported negative for DVT Pt denies CP, has chronic unchanged Sob with activity, denies Sob at rest, Pulse Oximeter 96%-97% Pt noted Left leg edema is improved but present from ankle to calf region, Left Leg bruising and tenderness present at ankle, Pt notes foot is warm and pink, noting she has chronic Neuropathy in Bilateral feet, takes Gabapentin at HS Research Nurse is coming 12/06/22 today at 6:00 PM, to draw lab work and takes vital signs Pt has Appt 12/07/22 Nuvia Grissom CNP to evaluated Left leg Pt Instructed to call PCP/ [facility] for changes in symptoms or concerns, ER for Urgent condition changes, CP, Sob or worsening symptoms. Pt verbalized understanding and appreciation for call. Contacted for: Routine Telephonic Outreach Contact made with patient: Yes Patient identified by name and date of . Discussed care with patient Are you experiencing any new or worsening symptoms you need to talk about today? Yes Based on die engraver, the following disposition is advised: No symptoms or symptoms present, not severe. Routed to: No Action Needed YOUNG Education Provided this Outreach: Andria Alcala RN December 06, 2022 2:28 PM Allergies As of Date: 12/05/2022 Noted Allergy Reaction IODINE 12/19/2004 4 - Hives Date Reviewed: 12/05/2022 Reviewed by: Samantha Reynolds LPN - Fully Assessed Reason for Visit: Community Monitoring Outreach [Other] Prescriptions as of 12/06/2022 - metoprolol succinate ER (TOPROL XL) 25 mg 24 hr tablet Take 0.5 tablets by mouth once daily. - rosuvastatin (CRESTOR) 20 mg tablet Take 1 tablet by mouth once daily. - tiZANidine (ZANAFLEX) 4 mg tablet Take 1 tablet by mouth every 8 hours as needed (muscle spasms). - vit C/E/Zn/coppr/lutein/zeaxan (PRESERVISION AREDS-2 ORAL) Take 1 tablet by mouth twice daily. - gabapentin (NEURONTIN) 300 mg capsule Take 2 capsules by mouth daily at bedtime for 180 days. - traMADol (ULTRAM) 50 mg tablet Take 1 tablet by mouth every 6 hours as needed for up to 99 days. - omega-3/dha/epa/fish oil (OMEGA-3 ORAL) Take 1 tablet by mouth once daily. - levothyroxine (SYNTHROID) 88 mcg tablet Take 1 tablet by mouth once daily. - acetaminophen (TYLENOL EXTRA STRENGTH) 500 mg tablet Take 2 tablets by mouth every 6 hours as needed for pain. - ZINC ORAL Take 1 tablet by mouth once daily. - cholecalciferol, vitamin D3, (VITAMIN D3 ORAL) Take 5,000 Units by mouth once daily. - torsemide (DEMADEX) 10 mg tablet Take 2 tablets by mouth once daily. - tafamidis (VYNDAMAX) 61 mg Take 1 capsule by mouth once daily. - enoxaparin (LOVENOX) 60 mg/0.6 mL syrg Inject 0.6 mL subcutaneously once daily. - vitamin A (AQUASOL A) 10,000 unit capsule Take 10,000 Units by mouth Every 3 Days. - aspirin, enteric coated (ASPIRIN, ENTERIC COATED) 81 mg EC tablet Take 1 tablet by mouth once daily. - polyethylene glycol 3350 (MIRALAX, GLYCOLAX) 17 gram/dose powder as needed. One capful with a full glass of water, 2-3 times a day Or as directed Facility-Administered Medications as of 12/06/2022 - perflutren lipid microspheres 1.3 mL in NaCl (PF) 0.9% 10 mL injection (DEFINITY) - sodium chloride 0.9 % (flush) 10 mL (BD POSIFLUSH) - perflutren lipid microspheres 1.3 mL in NaCl (PF) 0.9% 10 mL injection (DEFINITY) - sodium chloride 0.9 % (flush) 10 mL (BD POSIFLUSH) - perflutren lipid microspheres 1.3 mL in NaCl (PF) 0.9% 10 mL injection (DEFINITY) - sodium chloride 0.9 % (flush) 10 mL (BD POSIFLUSH) - perflutren lipid microspheres 1.3 mL in NaCl (PF) 0.9% 10 mL injection (DEFINITY) - sodium chloride 0.9 % (flush) 10 mL (BD POSIFLUSH) - perflutren lipid microspheres 1.3 mL in NaCl (PF) 0.9% 10 mL injection (DEFINITY) - sodium chloride 0.9 % (flush) 10 mL (BD POSIFLUSH) - perflutren lipid microspheres 1.3 mL in NaCl (PF) 0.9% 1 (more content not included)...[facility]09-05-2023 NoteHNO ID: [id number] Author: Eugenio Hernandez MD Service: ? Author Type: Physician Type: Progress Notes Filed: 12/05/2022 11:06 AM Note Text: This note was created using Sonicsriter. Subjective Yris Villagomez is a 81 year old female. 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) Chronic Anticoagulation Chronic Kidney Disease (Ckd), Stage Iii (Moderate) (Hcc) Gastroesophageal Reflux Disease Post-Phlebitic Syndrome Osteoarthritis of Right Hip Status Post Right Hip Replacement 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 rosuvastatin (CRESTOR) 20 mg tablet Take 1 tablet by mouth once daily. tiZANidine (ZANAFLEX) 4 mg tablet Take 1 tablet by mouth every 8 hours as needed (muscle spasms). vit C/E/Zn/coppr/lutein/zeaxan (PRESERVISION AREDS-2 ORAL) Take 1 tablet by mouth twice daily. gabapentin (NEURONTIN) 300 mg capsule Take 2 capsules by mouth daily at bedtime for 180 days. traMADol (ULTRAM) 50 mg tablet Take 1 tablet by mouth every 6 hours as needed for up to 99 days. omega-3/dha/epa/fish oil (OMEGA-3 ORAL) Take 1 tablet by mouth once daily. levothyroxine (SYNTHROID) 88 mcg tablet Take 1 tablet by mouth once daily. acetaminophen (TYLENOL EXTRA STRENGTH) 500 mg tablet Take 2 tablets by mouth every 6 hours as needed for pain. ZINC ORAL Take 1 tablet by mouth once daily. cholecalciferol, vitamin D3, (VITAMIN D3 ORAL) Take 5,000 Units by mouth once daily. torsemide (DEMADEX) 10 mg tablet Take 2 tablets by mouth once daily. tafamidis (VYNDAMAX) 61 mg Take 1 capsule by mouth once daily. enoxaparin (LOVENOX) 60 mg/0.6 mL syrg Inject 0.6 mL subcutaneously once daily. vitamin A (AQUASOL A) 10,000 unit capsule Take 10,000 Units by mouth Every 3 Days. aspirin, enteric coated (ASPIRIN, ENTERIC COATED) 81 mg EC tablet Take 1 tablet by mouth once daily. polyethylene glycol 3350 (MIRALAX, GLYCOLAX) 17 gram/dose powder as needed. One capful with a full glass of water, 2-3 times a day Or as directed Current Facility-Administered Medications Medication Dose Route Frequency perflutren lipid microspheres 1.3 mL in NaCl (PF) 0.9% 10 mL injection (DEFINITY) INTRAVENOUS DIRECTED PRN sodium chloride 0.9 % (flush) 10 mL (BD POSIFLUSH) 10 mL INTRAVENOUS DIRECTED PRN perflutren lipid microspheres 1.3 mL in NaCl (PF) 0.9% 10 mL injection (DEFINITY) INTRAVENOUS DIRECTED PRN sodium chloride 0.9 % (flush) 10 mL (BD POSIFLUSH) 10 mL INTRAVENOUS DIRECTED PRN perflutren lipid microspheres 1.3 mL in NaCl (PF) 0.9% 10 mL injection (DEFINITY) INTRAVENOUS DIRECTED PRN sodium chloride 0.9 % (flush) 10 mL (BD POSIFLUSH) 10 mL INTRAVENOUS DIRECTED PRN perflutren lipid microspheres 1.3 mL in NaCl (PF) 0.9% 10 mL injection (DEFINITY) INTRAVENOUS DIRECTED PRN sodium chloride 0.9 % (flush) 10 mL (BD POSIFLUSH) 10 mL INTRAVENOUS DIRECTED PRN perflutren lipid microspheres 1.3 mL in NaCl (PF) 0.9% 10 mL injection (DEFINITY) INTRAVENOUS DIRECTED PRN sodium chloride 0.9 % (flush) 10 mL (BD POSIFLUSH) 10 mL INTRAVENOUS DIRECTED PRN perflutren lipid microspheres 1.3 mL in NaCl (PF) 0.9% 10 mL injection (DEFINITY) INTRAVENOUS DIRECTED PRN sodium chloride 0.9 % (flush) 10 mL (BD POSIFLUSH) 10 mL INTRAVENOUS DIRECTED PRN Objective BP 126/76 (BP Site: Left Arm, BP Position: Sitting, BP Cuff Size: Large Adult) Pulse 72 Resp 16 Wt 60.3 kg (133 lb) BMI 22.13 kg/m? [facility] NoteHNO ID: [id number] Author: Eugenio Hernandez MD Service: ? Author Type: Physician Type: Progress Notes Filed: 12/05/2022 11:06 AM Note Text: This note was created using Sonicsriter. Subjective Patient presents with: Left leg pain Yris Villagomez is a 81 year old female who developed left knee pain one week ago. She saw Dr. Robbins who took xrays and diagnosed her with osteoarthritis. Knee injection was deferred due to recent excision of skin cancer on her chest. Since then she has developed left leg swelling; soreness of the left calf, posterior knee, and posterior thigh; as well as ecchymosis of the left calf. She denied any wound, bite, or trauma. She was on chronic anticoagulation with Lovenox once daily. Review of Systems Constitutional: Negative for fatigue and fever. Respiratory: Negative for cough and shortness of breath. Cardiovascular: Negative for chest pain and palpitations. Hematological: Does not bruise/bleed easily. 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) Chronic Anticoagulation Chronic Kidney Disease (Ckd), Stage Iii (Moderate) (Hcc) Gastroesophageal Reflux Disease 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 rosuvastatin (CRESTOR) 20 mg tablet Take 1 tablet by mouth once daily. tiZANidine (ZANAFLEX) 4 mg tablet Take 1 tablet by mouth every 8 hours as needed (muscle spasms). vit C/E/Zn/coppr/lutein/zeaxan (PRESERVISION AREDS-2 ORAL) Take 1 tablet by mouth twice daily. gabapentin (NEURONTIN) 300 mg capsule Take 2 capsules by mouth daily at bedtime for 180 days. traMADol (ULTRAM) 50 mg tablet Take 1 tablet by mouth every 6 hours as needed for up to 99 days. omega-3/dha/epa/fish oil (OMEGA-3 ORAL) Take 1 tablet by mouth once daily. levothyroxine (SYNTHROID) 88 mcg tablet Take 1 tablet by mouth once daily. acetaminophen (TYLENOL EXTRA STRENGTH) 500 mg tablet Take 2 tablets by mouth every 6 hours as needed for pain. ZINC ORAL Take 1 tablet by mouth once daily. cholecalciferol, vitamin D3, (VITAMIN D3 ORAL) Take 5,000 Units by mouth once daily. torsemide (DEMADEX) 10 mg tablet Take 2 tablets by mouth once daily. tafamidis (VYNDAMAX) 61 mg Take 1 capsule by mouth once daily. enoxaparin (LOVENOX) 60 mg/0.6 mL syrg Inject 0.6 mL subcutaneously once daily. vitamin A (AQUASOL A) 10,000 unit capsule Take 10,000 Units by mouth Every 3 Days. aspirin, enteric coated (ASPIRIN, ENTERIC COATED) 81 mg EC tablet Take 1 tablet by mouth once daily. polyethylene glycol 3350 (MIRALAX, GLYCOLAX) 17 gram/dose powder as needed. One capful with a full glass of water, 2-3 times a day Or as directed Current Facility-Administered Medications Medication Dose Route Frequency perflutren lipid microspheres 1.3 mL in NaCl (PF) 0.9% 10 mL injection (DEFINITY) INTRAVENOUS DIRECTED PRN sodium chloride 0.9 % (flush) 10 mL (BD POSIFLUSH) 10 mL INTRAVENOUS DIRECTED PRN perflutren lipid microspheres 1.3 mL in NaCl (PF) 0.9% 10 mL injection (DEFINITY) INTRAVENOUS DIRECTED PRN sodium chloride 0.9 % (flush) 10 mL (BD POSIFLUSH) 10 mL INTRAVENOUS DIRECTED PRN perflutren lipid microspheres 1.3 mL in NaCl (PF) 0.9% 10 mL injection (DEFINITY) INTRAVENOUS DIRECTED PRN sodium chloride 0.9 % (flush) 10 mL (BD POSIFLUSH) 10 mL INTRAVENOUS DIRECTED PRN perflutren lipid microspheres 1.3 mL in NaCl (PF) 0.9% 10 mL injection (DEFINITY) INTRAVENOUS DIRECTED PRN sodium chloride 0.9 % (flush) 10 mL (BD POSIFLUSH) 10 mL INTRAVENOUS DIRECTED PRN perflutren lipid microspheres 1.3 mL in NaCl (PF) 0.9% 10 mL injection (DEFINITY) INTRAVENOUS DIRECTED PRN sodium chloride 0.9 % (flush) 10 mL (BD POSIFLUSH) 10 mL INTRAVENOUS DIRECTED PRN perflutren lipid mi (more content not included)...[facility] 12-05-2022 History of Present illness Narrative* Eugenio Hernandez MD - 12/05/2022 10:10 AM EDT This note was created using NoteWriter. Subjective Yris Villagomez is a 81 year old female. 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) Chronic Anticoagulation Chronic Kidney Disease (Ckd), Stage Iii (Moderate) (Hcc) Gastroesophageal Reflux Disease Post-Phlebitic Syndrome Osteoarthritis of Right Hip Status Post Right Hip Replacement 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 rosuvastatin (CRESTOR) 20 mg tablet Take 1 tablet by mouth once daily. tiZANidine (ZANAFLEX) 4 mg tablet Take 1 tablet by mouth every 8 hours as needed (muscle spasms). vit C/E/Zn/coppr/lutein/zeaxan (PRESERVISION AREDS-2 ORAL) Take 1 tablet by mouth twice daily. gabapentin (NEURONTIN) 300 mg capsule Take 2 capsules by mouth daily at bedtime for 180 days. traMADol (ULTRAM) 50 mg tablet Take 1 tablet by mouth every 6 hours as needed for up to 99 days. omega-3/dha/epa/fish oil (OMEGA-3 ORAL) Take 1 tablet by mouth once daily. levothyroxine (SYNTHROID) 88 mcg tablet Take 1 tablet by mouth once daily. acetaminophen (TYLENOL EXTRA STRENGTH) 500 mg tablet Take 2 tablets by mouth every 6 hours as needed for pain. ZINC ORAL Take 1 tablet by mouth once daily. cholecalciferol, vitamin D3, (VITAMIN D3 ORAL) Take 5,000 Units by mouth once daily. torsemide (DEMADEX) 10 mg tablet Take 2 tablets by mouth once daily. tafamidis (VYNDAMAX) 61 mg Take 1 capsule by mouth once daily. enoxaparin (LOVENOX) 60 mg/0.6 mL syrg Inject 0.6 mL subcutaneously once daily. vitamin A (AQUASOL A) 10,000 unit capsule Take 10,000 Units by mouth Every 3 Days. aspirin, enteric coated (ASPIRIN, ENTERIC COATED) 81 mg EC tablet Take 1 tablet by mouth once daily. polyethylene glycol 3350 (MIRALAX, GLYCOLAX) 17 gram/dose powder as needed. One capful with a full glass of water, 2-3 times a day Or as directed Current Facility-Administered Medications Medication Dose Route Frequency perflutren lipid microspheres 1.3 mL in NaCl (PF) 0.9% 10 mL injection (DEFINITY) INTRAVENOUS DIRECTED PRN sodium chloride 0.9 % (flush) 10 mL (BD POSIFLUSH) 10 mL INTRAVENOUS DIRECTED PRN perflutren lipid microspheres 1.3 mL in NaCl (PF) 0.9% 10 mL injection (DEFINITY) INTRAVENOUS DIRECTED PRN sodium chloride 0.9 % (flush) 10 mL (BD POSIFLUSH) 10 mL INTRAVENOUS DIRECTED PRN perflutren lipid microspheres 1.3 mL in NaCl (PF) 0.9% 10 mL injection (DEFINITY) INTRAVENOUS DIRECTED PRN sodium chloride 0.9 % (flush) 10 mL (BD POSIFLUSH) 10 mL INTRAVENOUS DIRECTED PRN perflutren lipid microspheres 1.3 mL in NaCl (PF) 0.9% 10 mL injection (DEFINITY) INTRAVENOUS DIRECTED PRN sodium chloride 0.9 % (flush) 10 mL (BD POSIFLUSH) 10 mL INTRAVENOUS DIRECTED PRN perflutren lipid microspheres 1.3 mL in NaCl (PF) 0.9% 10 mL injection (DEFINITY) INTRAVENOUS DIRECTED PRN sodium chloride 0.9 % (flush) 10 mL (BD POSIFLUSH) 10 mL INTRAVENOUS DIRECTED PRN perflutren lipid microspheres 1.3 mL in NaCl (PF) 0.9% 10 mL injection (DEFINITY) INTRAVENOUS DIRECTED PRN sodium chloride 0.9 % (flush) 10 mL (BD POSIFLUSH) 10 mL INTRAVENOUS DIRECTED PRN Objective BP 126/76 (BP Site: Left Arm, BP Position: Sitting, BP Cuff Size: Large Adult) Pulse 72 Resp 16 Wt 60.3 kg (133 lb) BMI 22.13 kg/m Physical Exam Assessment and Plan * Eugenio Hernandez MD - 12/05/2022 10:07 AM EDT This note was created using Wymseeter. Subjective Patient presents with: Left leg pain Yris Villagomez is a 81 year old female who developed left knee pain one week ago. She saw Dr. Robbins who took xrays and diagnosed her with osteoarthritis. Knee injection was deferred due to recent excision of skin cancer on her chest. Since then she has developed left leg swelling; soreness of the left calf, posterior knee, and posterior thigh; as well as ecchymosis of the left calf. She denied any wound, bite, or trauma. She was on chronic anticoagulation with Lovenox once daily. Review of Systems Constitutional: Negative for fatigue and fever. Respiratory: Negative for cough and shortness of breath. Cardiovascular: Negative for chest pain and palpitations. Hematological: Does not bruise/bleed easily. 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) Chronic Anticoagulation Chronic Kidney Disease (Ckd), Stage Iii (Moderate) (Hcc) Gastroesophageal Reflux Disease 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 rosuvastatin (CRESTOR) 20 mg tablet Take 1 tablet by mouth once daily. tiZANidine (ZANAFLEX) 4 mg tablet Take 1 tablet by mouth every 8 hours as needed (muscle spasms). vit C/E/Zn/coppr/lutein/zeaxan (PRESERVISION AREDS-2 ORAL) Take 1 tablet by mouth twice daily. gabapentin (NEURONTIN) 300 mg capsule Take 2 capsules by mouth daily at bedtime for 180 days. traMADol (ULTRAM) 50 mg tablet Take 1 tablet by mouth every 6 hours as needed for up to 99 days. omega-3/dha/epa/fish oil (OMEGA-3 ORAL) Take 1 tablet by mouth once daily. levothyroxine (SYNTHROID) 88 mcg tablet Take 1 tablet by mouth once daily. acetaminophen (TYLENOL EXTRA STRENGTH) 500 mg tablet Take 2 tablets by mouth every 6 hours as needed for pain. ZINC ORAL Take 1 tablet by mouth once daily. cholecalciferol, vitamin D3, (VITAMIN D3 ORAL) Take 5,000 Units by mouth once daily. torsemide (DEMADEX) 10 mg tablet Take 2 tablets by mouth once daily. tafamidis (VYNDAMAX) 61 mg Take 1 capsule by mouth once daily. enoxaparin (LOVENOX) 60 mg/0.6 mL syrg Inject 0.6 mL subcutaneously once daily. vitamin A (AQUASOL A) 10,000 unit capsule Take 10,000 Units by mouth Every 3 Days. aspirin, enteric coated (ASPIRIN, ENTERIC COATED) 81 mg EC tablet Take 1 tablet by mouth once daily. polyethylene glycol 3350 (MIRALAX, GLYCOLAX) 17 gram/dose powder as needed. One capful with a full glass of water, 2-3 times a day Or as directed Current Facility-Administered Medications Medication Dose Route Frequency perflutren lipid microspheres 1.3 mL in NaCl (PF) 0.9% 10 mL injection (DEFINITY) INTRAVENOUS DIRECTED PRN sodium chloride 0.9 % (flush) 10 mL (BD POSIFLUSH) 10 mL INTRAVENOUS DIRECTED PRN perflutren lipid microspheres 1.3 mL in NaCl (PF) 0.9% 10 mL injection (DEFINITY) INTRAVENOUS DIRECTED PRN sodium chloride 0.9 % (flush) 10 mL (BD POSIFLUSH) 10 mL INTRAVENOUS DIRECTED PRN perflutren lipid microspheres 1.3 mL in NaCl (PF) 0.9% 10 mL injection (DEFINITY) INTRAVENOUS DIRECTED PRN sodium chloride 0.9 % (flush) 10 mL (BD POSIFLUSH) 10 mL INTRAVENOUS DIRECTED PRN perflutren lipid microspheres 1.3 mL in NaCl (PF) 0.9% 10 mL injection (DEFINITY) INTRAVENOUS DIRECTED PRN sodium chloride 0.9 % (flush) 10 mL (BD POSIFLUSH) 10 mL INTRAVENOUS DIRECTED PRN perflutren lipid microspheres 1.3 mL in NaCl (PF) 0.9% 10 mL injection (DEFINITY) INTRAVENOUS DIRECTED PRN sodium chloride 0.9 % (flush) 10 mL (BD POSIFLUSH) 10 mL INTRAVENOUS DIRECTED PRN perflutren lipid microspheres 1.3 mL in NaCl (PF) 0.9% 10 mL injection (DEFINITY) INTRAVENOUS DIRECTED PRN sodium chloride 0.9 % (flush) 10 mL (BD POSIFLUSH) 10 mL INTRAVENOUS DIRECTED PRN Objective BP 126/76 (BP Site: Left Arm, BP Position: Sitting, BP Cuff Size: Large Adult) Pulse 72 Resp 16 Wt 60.3 kg (133 lb) BMI 22.13 kg/m Physical Exam Constitutional: General: She is not in acute distress. Appearance: She is not diaphoretic. Cardiovascular: Rate and Rhythm: Normal rate and regular rhythm. Pulses: Dorsalis pedis pulses are 1+ on the right side and 1+ on the left side. Posterior tibial pulses are 1+ on the right side and 1+ on the left side. Heart sounds: No murmur heard. No gallop. Pulmonary: Effort: No respiratory distress. Breath sounds: Normal breath sounds. No wheezing or rales. Musculoskeletal: General: Tenderness present. No signs of injury. Right lower leg: No edema. Left lower le+ Pitting Edema present. Skin: Findings: Bruising present. Neurological: Mental Status: She is alert. Assessment and Plan 1. Pain and swelling of left lower leg - ICD9: 729.5, 729.81, ICD10: M79.662, M79.89 (primary diagnosis) - US LEG VEIN DVT UNL VAS LAB 2. Post-phlebitic syndrome - ICD9: 459.10, ICD10: I87.009 3. History of DVT of lower extremity - ICD9: V12.51, ICD10: Z86.718 4. History of pulmonary embolism - ICD9: V12.55, ICD10: Z86.711 5. Chronic anticoagulation - ICD9: V58.61, ICD10: Z79.01 Depending on venous US results, we may reach out to Dr. Narvaez for adjustment on her LMWH dose. 6. Need for vaccination - ICD9: V05.9, ICD10: Z23 - INFLUENZA VACCINE, PRSV FREE, AGE 65+ YR, HIGH DOSE, QUADRIVALENT (FLUZONE HIGH-DOSE) Eugenio Hernandez MD [facility] Miscellaneous Notes* Telephone Encounter - Carol Braun RN - 11/24/2022 10:47 AM EDT Patient left message on heart failure nurse line requesting refills on metoprolol succinate and rosuvastatin to go to [facility]. Carol Braun RN November 24, 2022 10:47 AM documented in this encounter[facility] NoteHNO ID: [id number] Author: Nuvia Grissom APRN.SHEEP CLIPPER Service: ? Author Type: Nurse Practitioner Type: Progress Notes Filed: 11/27/2022 9:44 AM Note Text: CC: Patient presents with: Pain, Neck: R sided Neck and shoulder pain HPI Yris Villagomez is a 81 year old female who presents today for neck and shoulder pain. Suddenly started with pain and spasms to right side of neck radiating into right shoulder. Had cervical spine surgery in 2002 and have flare ups like this twice a year that resolve with rest, steroids, and muscle relaxer. Pain increases with movement but always present. Denies injury , weakness, or numbness. Has tried the tizanidine but does not help at this time and is unable to sleep. Lesion to mid chest that presented 4 months ago and has continued to get larger. Sometimes it itches and necklaces can irritate it. No history of skin cancer. Sees [facility] for regular scans but would like to see a [facility] dermatolgist if possible. REVIEW OF SYSTEMS General: no fevers, no chills, no night sweats, no recurrent infections, no change in appetite, no change in energy, and no significant changes in weight Respiratory: no cough, no wheezing, no shortness of breath, no hemoptysis Cardiovascular: no chest pain, no chest pressure, no palpitations, and no swelling Neurologic: No headache, weakness, numbness, tingling, dizziness, memory loss, syncope. 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/12/2008 Chest pain Cholecystitis 05/22/2022 Chronic kidney disease (CKD), stage III (moderate) ([facility]) 07/27/2016 Coronary artery disease due to calcified coronary lesion 06/22/2021 Diverticulitis Diverticulosis of colon (without mention of hemorrhage) Diverticulosis of colon with hemorrhage DVT (deep venous thrombosis) ([facility]) After knee surgery Dysmetabolic syndrome X Hemorrhage of gastrointestinal tract, unspecified Hernia of other specified sites of abdominal cavity without mention of obstruction or gangrene 2006 Patient has 2 or 3 hernias at abdomen and groin Internal hemorrhoids without mention of complication Other and unspecified hyperlipidemia PE (pulmonary embolism) after hernia surgery Symptomatic cholelithiasis 03/29/2022 Umbilical hernia 07/22/2009 Unspecified essential hypertension Unspecified gastritis and gastroduodenitis 03/12/2008 Unspecified hypothyroidism PAST SURGICAL HISTORY Procedure Laterality Date ARTHRP ACETBLR/PROX FEM PROSTC AGRFT/ALGRFT 2002 Hip replacement, total, left ARTHRP ACETBLR/PROX FEM PROSTC AGRFT/ALGRFT 2002 left hip COLONOSCOPY FLX DX W/COLLJ SPEC WHEN PFRMD 09/15/1998 Colonoscopy COLONOSCOPY FLX DX W/COLLJ SPEC WHEN PFRMD 08/07/2005 Colonoscopy COLONOSCOPY FLX DX W/COLLJ SPEC WHEN PFRMD 06/23/2011 [facility] Colonoscopy COLONOSCOPY FLX DX W/COLLJ SPEC WHEN PFRMD 03/05/2014 Colonoscopy COLSC FLX W/REMOVAL LESION BY HOT BX FORCEPS 03/12/2008 EGD TRANSORAL BIOPSY SINGLE/MULTIPLE 03/12/2008 EGD TRANSORAL BIOPSY SINGLE/MULTIPLE 09/30/2012 ESOPHAGOGASTRODUODENOSCOPY TRANSORAL DIAGNOSTIC 06/10/2015 EGD HYSTERECTOMY, REVISE VAGINA; COLPECTOMY 1980 Hysterectomy with bladder repair still ovaries ARTEAGA W/O FACETEC FORAMOT/DSC 04/03 VRT SGM CRV 2001 Discectomy and fusion, cervical LAPAROSCOPIC CHOLECYSTECTOMY 03/29/2022 LAPS SURG RPR RECURRENT INGUINAL HERNIA 07/22/2009 LIGJ DIVJ AND/EXCJ VARICOSE VEIN CLUSTER 1 LEG 1984 Varicose Vein Surgery PAST SURGICAL HISTORY OF 2001 cervical spine repair PAST SURGICAL HISTORY OF 11/04/2014 cystocele REMOVAL GALLBLADDER 03/29/2022 RPR 1ST INGUN HRNA AGE 5 YRS/> REDUCIBLE 1980 Hernia repair, inguinal RPR 1ST INGUN HRNA AGE 5 YRS/> REDUCIBLE 1980 Hernia repair, inguinal, bilateral RPR UMBILICAL HRNA 5 YRS/> REDUCIBLE 07/22/2009 THYROIDECTOMY TOTAL/COMPLETE 1994 TONSILLECTOMY AND ADENOIDECTOMY HX 1967 TONSILLECTOMY PRIMARY/SECONDARY Tonsillectomy X-RAY PLACEMENT, VEIN FILTER 08/13/2009 ALLERGIES Iodine MEDICATIONS vit C/E/Zn/coppr/lutein/zeaxan (PRESERVISION AREDS-2 ORAL)Take 1 tablet by mouth twice daily.Disp: Rfl: gabapentin (NEURONTIN) 300 mg capsuleTake 2 capsules by mouth daily at bedtime for 180 days.Disp: 360 capsuleRfl: 0 traMADol (ULTRAM) 50 mg tabletTake 1 tablet by mouth every 6 hours as needed for up to 99 days.Disp: 28 tabletRfl: 0 omega-3/dha/epa/fish oil (OMEGA-3 ORAL)Take 1 tablet by mouth once daily.Disp: Rfl: levothyroxine (SYNTHROID) 88 mcg tabletTake 1 tablet by mouth once daily.Disp: 90 tabletRfl: 3 rosuvastatin (CRESTOR) 20 mg tabletTake 1 tablet by mouth once daily.Disp: 90 tabletRfl: 1 metoprolol succinate ER (TOPROL XL) 25 mg 24 hr tabletTake 0.5 tablets by mouth once daily.Disp: 45 tabletRfl: 3 acetaminophen (TYLENOL EXTRA STRENGTH) 500 mg tabletTake (more content not included)...[facility]08-23-[facility] History of Present illness Narrative* Nuvia GrissomQUINTEN.SHEEP CLIPPER - 11/22/2022 5:42 PM EDT CC: Patient presents with: Pain, Neck: R sided Neck and shoulder pain HPI Yris Villagomez is a 81 year old female who presents today for neck and shoulder pain. Suddenly started with pain and spasms to right side of neck radiating into right shoulder. Had cervical spine surgery in 2002 and have flare ups like this twice a year that resolve with rest, steroids, and muscle relaxer. Pain increases with movement but always present. Denies injury , weakness, or numbness. Has tried the tizanidine but does not help at this time and is unable to sleep. Lesion to mid chest that presented 4 months ago and has continued to get larger. Sometimes it itches and necklaces can irritate it. No history of skin cancer. Sees [facility] for regular scans but would like to see a [facility] dermatolgist if possible. REVIEW OF SYSTEMS General: no fevers, no chills, no night sweats, no recurrent infections, no change in appetite, no change in energy, and no significant changes in weight Respiratory: no cough, no wheezing, no shortness of breath, no hemoptysis Cardiovascular: no chest pain, no chest pressure, no palpitations, and no swelling Neurologic: No headache, weakness, numbness, tingling, dizziness, memory loss, syncope. 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/12/2008 Chest pain Cholecystitis 05/22/2022 Chronic kidney disease (CKD), stage III (moderate) ([facility]) 07/27/2016 Coronary artery disease due to calcified coronary lesion 06/22/2021 Diverticulitis Diverticulosis of colon (without mention of hemorrhage) Diverticulosis of colon with hemorrhage DVT (deep venous thrombosis) (HCC) After knee surgery Dysmetabolic syndrome X Hemorrhage of gastrointestinal tract, unspecified Hernia of other specified sites of abdominal cavity without mention of obstruction or gangrene 2006 Patient has 2 or 3 hernias at abdomen and groin Internal hemorrhoids without mention of complication Other and unspecified hyperlipidemia PE (pulmonary embolism) after hernia surgery Symptomatic cholelithiasis 03/29/2022 Umbilical hernia 07/22/2009 Unspecified essential hypertension Unspecified gastritis and gastroduodenitis 03/12/2008 Unspecified hypothyroidism PAST SURGICAL HISTORY Procedure Laterality Date ARTHRP ACETBLR/PROX FEM PROSTC AGRFT/ALGRFT 2002 Hip replacement, total, left ARTHRP ACETBLR/PROX FEM PROSTC AGRFT/ALGRFT 2002 left hip COLONOSCOPY FLX DX W/COLLJ SPEC WHEN PFRMD 09/15/1998 Colonoscopy COLONOSCOPY FLX DX W/COLLJ SPEC WHEN PFRMD 08/07/2005 Colonoscopy COLONOSCOPY FLX DX W/COLLJ SPEC [facility] COLONOSCOPY FLX DX W/COLLJ SPEC WHEN PFRMD 03/05/2014 Colonoscopy COLSC FLX W/REMOVAL LESION BY HOT BX FORCEPS 03/12/2008 EGD TRANSORAL BIOPSY SINGLE/MULTIPLE 03/12/2008 EGD TRANSORAL BIOPSY SINGLE/MULTIPLE 09/30/2012 ESOPHAGOGASTRODUODENOSCOPY TRANSORAL DIAGNOSTIC 06/10/2015 EGD HYSTERECTOMY, REVISE VAGINA; COLPECTOMY 1980 Hysterectomy with bladder repair still ovaries ARTEAGA W/O FACETEC FORAMOT/DSC 1/2 VRT SGM CRV 2001 Discectomy and fusion, cervical LAPAROSCOPIC CHOLECYSTECTOMY 03/29/2022 LAPS SURG RPR RECURRENT INGUINAL HERNIA 07/22/2009 LIGJ DIVJ &/EXCJ VARICOSE VEIN CLUSTER 1 LEG 1985 Varicose Vein Surgery PAST SURGICAL HISTORY OF 2001 cervical spine repair PAST SURGICAL HISTORY OF 11/04/2014 cystocele REMOVAL GALLBLADDER 03/29/2022 RPR 1ST INGUN HRNA AGE 5 YRS/> REDUCIBLE 1980 Hernia repair, inguinal RPR 1ST INGUN HRNA AGE 5 YRS/> REDUCIBLE 1980 Hernia repair, inguinal, bilateral RPR UMBILICAL HRNA 5 YRS/> REDUCIBLE 07/22/2009 THYROIDECTOMY TOTAL/COMPLETE 1994 TONSILLECTOMY AND ADENOIDECTOMY HX 1968 TONSILLECTOMY PRIMARY/SECONDARY <AGE 12 Tonsillectomy X-RAY PLACEMENT, VEIN FILTER 08/13/2009 ALLERGIES Iodine MEDICATIONS vit C/E/Zn/coppr/lutein/zeaxan (PRESERVISION AREDS-2 ORAL)^Take 1 tablet by mouth twice daily.^Disp: ^Rfl: gabapentin (NEURONTIN) 300 mg capsule^Take 2 capsules by mouth daily at bedtime for 180 days.^Disp:360 capsule^Rfl: 0 traMADol (ULTRAM) 50 mg tablet^Take 1 tablet by mouth every 6 hours as needed for up to 99 days.^Disp: 28 tablet^Rfl: 0 omega-3/dha/epa/fish oil (OMEGA-3 ORAL)^Take 1 tablet by mouth once daily.^Disp: ^Rfl: levothyroxine (SYNTHROID) 88 mcg tablet^Take 1 tablet by mouth once daily.^Disp: 90 tablet^Rfl: 3 rosuvastatin (CRESTOR) 20 mg tablet^Take 1 tablet by mouth once daily.^Disp: 90 tablet^Rfl: 1 metoprolol succinate ER (TOPROL XL) 25 mg 24 hr tablet^Take 0.5 tablets by mouth once daily.^Disp: 45 tablet^Rfl: 3 acetaminophen (TYLENOL EXTRA STRENGTH) 500 mg tablet^Take 2 tablets by mouth every 6 hours as needed for pain.^Disp: ^Rfl: ZINC ORAL^Take 1 tablet by mouth once daily.^Disp: ^Rfl: cholecalciferol, vitamin D3, (VITAMIN D3 ORAL)^Take 5,000 Units by mouth once daily.^Disp: ^Rfl: torsemide (DEMADEX) 10 mg tablet^Take 2 tablets by mouth once daily.^Disp: 180 tablet^Rfl: 3 tafamidis (VYNDAMAX) 61 mg^Take 1 capsule by mouth once daily.^Disp: 30 capsule^Rfl: 11 enoxaparin (LOVENOX) 60 mg/0.6 mL syrg^Inject 0.6 mL subcutaneously once daily.^Disp: 90 Each^Rfl: 3 vitamin A (AQUASOL A) 10,000 unit capsule^Take 10,000 Units by mouth Every 3 Days.^Disp: ^Rfl: aspirin, enteric coated (ASPIRIN, ENTERIC COATED) 81 mg EC tablet^Take 1 tablet by mouth once daily.^Disp: ^Rfl: polyethylene glycol 3350 (MIRALAX, GLYCOLAX) 17 gram/dose powder^as needed. One capful with a full glass of water, 2-3 times a day Or as directed ^Disp: ^Rfl: FAMILY HISTORY Problem Relation Age of Onset Coronary Artery Disease Mother 83, CVA Colon Cancer Mother Coronary Artery Disease Father [place] 45 Cancer Brother multiple myeloma None Daughter None Daughter other (heart attack) Son other (fibramyalgia) Son other (blood clots in lungs) Son Social History Tobacco Use Smoking status: Never Smokeless tobacco: Never Vaping Use Vaping Use: Never used Substance Use Topics Alcohol use: No Drug use: No PHYSICAL EXAM BP 132/84 Pulse 78 Temp 36.4 C (97.6 F) (Temporal) Resp 16 Wt 61.2 kg (135 lb) SpO2 98% BMI 22.47 kg/m General Appearance: well appearing, in no acute distress, alert Eyes: conjunctiva pink and moist, no icterus, sclera white, non-injected Neck: Thyroid normal size and symmetric without palpable nodules, Neck supple, No adenopathy, FULL ROM noted but all movements causing sudden increase in pain. Lungs: Lungs clear to auscultation. No wheezing, rhonchi, rales. Heart: RRR without murmur, gallop, or rubs. No ectopy SKIN: Mid chest mass skin colored slightly red but has concealer on area so difficult to fully evaluate. Irregular borders, rough texture, and elevated. Health maintenance reviewed with patient: SHINGRIX VACCINE(3 of 3) due on 03/16/2020 COVID-19 VACCINE(4 - Moderna series) due on 05/18/2021 INFLUENZA(1) due on 12/01/2022 LDL CHOLESTEROL due on 12/29/2022 DTAP,TDAP,TD(2 - Td or Tdap) due on 09/25/2024 DIABETES SCREEN due on 08/07/2025 BONE DENSITY Completed DEPRESSION ASSESSMENT Completed PNEUMOCOCCAL: 65+ Completed COLORECTAL CANCER SCREENING Discontinued ADVANCE DIRECTIVE DISCUSSION Discontinued DATA REVIEWED: No new labs ASSESSMENT/PLAN: 1. Neck pain - ICD9: 723.1, ICD10: M54.2 (primary diagnosis) - has this routinely reports no injury and no concerning symptoms. No imaging indicated at this time but if this continues will need cervical xray. - rest advised, gentle stretching, heat or ice, and massage. - prednisone as ordered - tizanidine as ordered - follow up if no improvement - go to ER for increase pain, weakness, numbness, or any other urgent concern 2. Muscle spasm - ICD9: 728.85, ICD10: M62.838 As above 3. Skin lesion - ICD9: 709.9, ICD10: L98.9 With irregular border, sudden appearance and growing this needs further evaluated for possible malignancy. - CONSULT TO DERMATOLOGY Prescription instructions reviewed with patient as applicable. Potential red flag symptoms discussed with the patient. Reviewed appropriate action plan to take if red flag symptoms occur. Patient agreeable to treatment plan. Nuvia Grissom APRN.ALESSANDRO documented in this encounter[facility] NotePatient Outreach (INTMMN) YRIS VILLAGOMEZ ([id number]) 1940 F Date Time Provider Department 11/21/22 GAB PISANO INTODELLN During your visit today, we recorded the following information about you: Allergies As of Date: 11/21/2022 Noted Allergy Reaction IODINE 12/19/2004 4 - Hives Date Reviewed: 11/08/2022 Reviewed by: Irene Akers Ma - Fully Assessed Visit Diagnosis:Acquired hypothyroidism [E03.9] Order(s):TSH BLD [SQTS] Order #: [id number] FUTURE Prescriptions as of 11/24/2022 - predniSONE (DELTASONE) 20 mg tablet Take 2 tablets by mouth once daily for 5 days. Take daily with food. - tiZANidine (ZANAFLEX) 4 mg tablet Take 1 tablet by mouth every 8 hours as needed (muscle spasms). - vit C/E/Zn/coppr/lutein/zeaxan (PRESERVISION AREDS-2 ORAL) Take 1 tablet by mouth twice daily. - gabapentin (NEURONTIN) 300 mg capsule Take 2 capsules by mouth daily at bedtime for 180 days. - traMADol (ULTRAM) 50 mg tablet Take 1 tablet by mouth every 6 hours as needed for up to 99 days. - omega-3/dha/epa/fish oil (OMEGA-3 ORAL) Take 1 tablet by mouth once daily. - levothyroxine (SYNTHROID) 88 mcg tablet Take 1 tablet by mouth once daily. - rosuvastatin (CRESTOR) 20 mg tablet Take 1 tablet by mouth once daily. - metoprolol succinate ER (TOPROL XL) 25 mg 24 hr tablet Take 0.5 tablets by mouth once daily. - acetaminophen (TYLENOL EXTRA STRENGTH) 500 mg tablet Take 2 tablets by mouth every 6 hours as needed for pain. - ZINC ORAL Take 1 tablet by mouth once daily. - cholecalciferol, vitamin D3, (VITAMIN D3 ORAL) Take 5,000 Units by mouth once daily. - torsemide (DEMADEX) 10 mg tablet Take 2 tablets by mouth once daily. - tafamidis (VYNDAMAX) 61 mg Take 1 capsule by mouth once daily. - enoxaparin (LOVENOX) 60 mg/0.6 mL syrg Inject 0.6 mL subcutaneously once daily. - vitamin A (AQUASOL A) 10,000 unit capsule Take 10,000 Units by mouth Every 3 Days. - aspirin, enteric coated (ASPIRIN, ENTERIC COATED) 81 mg EC tablet Take 1 tablet by mouth once daily. - polyethylene glycol 3350 (MIRALAX, GLYCOLAX) 17 gram/dose powder as needed. One capful with a full glass of water, 2-3 times a day Or as directed Facility-Administered Medications as of 11/24/2022 - perflutren lipid microspheres 1.3 mL in NaCl (PF) 0.9% 10 mL injection (DEFINITY) - sodium chloride 0.9 % (flush) 10 mL (BD POSIFLUSH) - perflutren lipid microspheres 1.3 mL in NaCl (PF) 0.9% 10 mL injection (DEFINITY) - sodium chloride 0.9 % (flush) 10 mL (BD POSIFLUSH) - perflutren lipid microspheres 1.3 mL in NaCl (PF) 0.9% 10 mL injection (DEFINITY) - sodium chloride 0.9 % (flush) 10 mL (BD POSIFLUSH) - perflutren lipid microspheres 1.3 mL in NaCl (PF) 0.9% 10 mL injection (DEFINITY) - sodium chloride 0.9 % (flush) 10 mL (BD POSIFLUSH) - perflutren lipid microspheres 1.3 mL in NaCl (PF) 0.9% 10 mL injection (DEFINITY) - sodium chloride 0.9 % (flush) 10 mL (BD POSIFLUSH) - perflutren lipid microspheres 1.3 mL in NaCl (PF) 0.9% 10 mL injection (DEFINITY) - sodium chloride 0.9 % (flush) 10 mL (BD POSIFLUSH) Problem List As Of Date 11/21/2022 Noted Resolved Mixed hyperlipidemia [E78.2] Essential hypertension [I10] Hypothyroidism [E03.9] 09/30/2018 INSOMNIA NOS [G47.00] 05/16/2005 Adjustment disorder with depressed mood [F43.21]05/16/2005 08/28/2013 Abdominal pain, unspecified site [R10.9] 08/28/2013 INGUINAL HERNIA, BILAT, RECURRENT W/O GANGRENE/*11/30/2006 08/28/2013 Blood in stool [K92.1] 03/11/2008 08/28/2013 Benign neoplasm of colon [D12.6] 03/12/2008 08/28/2013 Unspecified gastritis and gastroduodenitis with*03/12/2008 08/28/2013 DIVERTICULOSIS OF COLON W/O BLEED [K57.30] 03/12/2008 Umbilical hernia without mention of obstruction*06/21/2009 08/28/2013 Pulmonary embolism (HCC) [I26.99] 08/26/2009 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 Status post inguinal hernia repair [Z98.890, Z8*11/23/2009 08/28/2013 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] 12/02/2009 Ac DVT/embl low ext NOS [I82.409] 08/23/2010 11/19/2019 DVT (deep venous thrombosis) (HCC) [I82.409] 10/17/2010 09/30/2018 Groin pain [R10.30] 04/23/2013 08/28/2013 Other symptoms involving digestive system(787.9*03/05/2014 03/05/2014 Abdominal pain, right lower quadrant [R10.31] 03/05/2014 03/05/2014 Chronic abdominal pain [R10.9, G89.29] 05/29/2014 Family history of ischemic heart disease [Z82.4*10/14/2014 11/19/2019 Mixed incontinence [N39.46] 10/27/2014 DVT prophylaxis [Z79.899] 11/05/2014 02/21/2022 History of DVT of lower extremity [Z86.718] 11/05/2014 History of pulmonary embolism [Z86.711] 11/05/2014 S/P IVC filter [Z95.828] 11/06/2014 History of pubovaginal sling [Z96.0] 11/06/2014 Acquired hypothyroidism [E03.9] 02/19/2015 Epigastric pain [R10.13] 06/10/2015 06/10/2015 IBS (irritable bowel syndrome) [K58.9] 01/27/2016 Chronic deep vein thrombosis ( (more content not included)...[facility] Miscellaneous Notes* Telephone Encounter - Courtney Juarez RN - 11/21/2022 10:46 AM EDT Patient phoned and given providers message below with verbalized understanding. Scheduled appt withNp for tomorrow. * Telephone Encounter - Megan Berger APRN.CNS - 11/20/2022 5:12 PM EDT Taking gabapentin and tizanidine together may cause her to feel sleepy or fatigued. May want to take 1 or the other. Offer a visit if wanting to come in to be checked. * Telephone Encounter - Carole Carreon LPN - 11/20/2022 4:30 PM EDT Pt calls to report that she has right-sided neck and shoulder pain. Pt reports she had the same thing last year around this time and was prescribed prednisone and tizanidine 4 mg. Pt reports she still has tizanidine 4 mg so took one at 3 pm. Pt reports she fell asleep and when she woke up she felt that her eyes couldn't focus. Pt reports it is better now. Pt reports she takes gabapentin for neuropathy of hands. Pt reports she did not take any today but wondered if she can take the gabapentin and tizanidine together or if that would cause some type of reaction. Please review and advise. Carole Carreon LPN documented in this encounterAkron [facility]08-09-2023 NoteHNO ID: [id number] Author: Shira Seymour MD Service: ? Author Type: Physician Type: Progress Notes Filed: 11/28/2022 8:26 PM Note Text: [facility] SECTION OF HEART FAILURE and CARDIAC TRANSPLANT MEDICINE OUTPATIENT VISIT DATE November 08, 2022 OUTPATIENT VISIT TYPE Established Patient PRIMARY CARE PHYSICIAN: Gab Pisano [address] [place] [address] CHIEF COMPLAINT: Doing well NURSING INTAKE (Patient?s concerns and/or recent hospitalizations/ER visits): HF Nursing Assessment: Interim Hospitalizations and/or ER visits:no Chest Pain: no Skipping or irregular heartbeats: yes, occasionally Shortness of breath at rest: no Shortness of breath with activity: yes Cough: yes, dry Waking up in the middle of the night gasping for air: no Lightheadedness or dizziness: yes, when get up too quickly or bend over Feeling like you are going to pass out: no Actually passing out: no Poor energy level: yes Unintentional weight gain: no Unintentional weight loss: no Swelling in your legs,feet, abdomen: no Filling up quickly when you eat: yes HISTORY OF PRESENT ILLNESS: Overall feeling well. Denies any peripheral edema, orthopnea or PND. 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/12/2008 Chest pain Cholecystitis 05/22/2022 Chronic kidney disease (CKD), stage III (moderate) (HCC) 07/27/2016 Coronary artery disease due to calcified coronary lesion 06/22/2021 Diverticulitis Diverticulosis of colon (without mention of hemorrhage) Diverticulosis of colon with hemorrhage DVT (deep venous thrombosis) (HCC) After knee surgery Dysmetabolic syndrome X Hemorrhage of gastrointestinal tract, unspecified Hernia of other specified sites of abdominal cavity without mention of obstruction or gangrene 2006 Patient has 2 or 3 hernias at abdomen and groin Internal hemorrhoids without mention of complication Other and unspecified hyperlipidemia PE (pulmonary embolism) after hernia surgery Symptomatic cholelithiasis 03/29/2022 Umbilical hernia 07/22/2009 Unspecified essential hypertension Unspecified gastritis and gastroduodenitis 03/12/2008 Unspecified hypothyroidism PAST SURGICAL HISTORY Procedure Laterality Date ARTHRP ACETBLR/PROX FEM PROSTC AGRFT/ALGRFT 2002 Hip replacement, total, left ARTHRP ACETBLR/PROX FEM PROSTC AGRFT/ALGRFT 2002 left hip COLONOSCOPY FLX DX W/COLLJ SPEC WHEN PFRMD 09/15/1998 Colonoscopy COLONOSCOPY FLX DX W/COLLJ SPEC WHEN PFRMD 08/07/2005 Colonoscopy COLONOSCOPY FLX DX W/COLLJ SPEC [facility] COLONOSCOPY FLX DX W/COLLJ SPEC WHEN PFRMD 03/05/2014 Colonoscopy COLSC FLX W/REMOVAL LESION BY HOT BX FORCEPS 03/12/2008 EGD TRANSORAL BIOPSY SINGLE/MULTIPLE 03/12/2008 EGD TRANSORAL BIOPSY SINGLE/MULTIPLE 09/30/2012 ESOPHAGOGASTRODUODENOSCOPY TRANSORAL DIAGNOSTIC 06/10/2015 EGD HYSTERECTOMY, REVISE VAGINA; COLPECTOMY 1980 Hysterectomy with bladder repair still ovaries ARTEAGA W/O FACETEC FORAMOT/DSC 1/2 VRT SGM CRV 2001 Discectomy and fusion, cervical LAPAROSCOPIC CHOLECYSTECTOMY 03/29/2022 LAPS SURG RPR RECURRENT INGUINAL HERNIA 07/22/2009 LIGJ DIVJ AND/EXCJ VARICOSE VEIN CLUSTER 1 LEG 1985 Varicose Vein Surgery PAST SURGICAL HISTORY OF 2001 cervical spine repair PAST SURGICAL HISTORY OF 11/04/2014 cystocele REMOVAL GALLBLADDER 03/29/2022 RPR 1ST INGUN HRNA AGE 5 YRS/> REDUCIBLE 1980 Hernia repair, inguinal RPR 1ST INGUN HRNA AGE 5 YRS/> REDUCIBLE 1980 Hernia repair, inguinal, bilateral RPR UMBILICAL HRNA 5 YRS/> REDUCIBLE 07/22/2009 THYROIDECTOMY TOTAL/COMPLETE 1994 TONSILLECTOMY AND ADENOIDECTOMY HX 1968 TONSILLECTOMY PRIMARY/SECONDARY Tonsillectomy X-RAY PLACEMENT, VEIN FILTER 08/13/2009 SOCIAL HISTORY Social History Tobacco Use Smoking status: Never Smokeless tobacco: Never Vaping Use Vaping Use: Never used Substance Use Topics Alcohol use: No Drug use: No FAMILY HISTORY Problem Relation Age of Onset Coronary Artery Disease Mother 83, CVA Colon Cancer Mother Coronary Artery Disease Father [place] 45 Cancer Brother multiple myeloma None Daughter None Daughter other (heart attack) Son other (fibramyalgia) Son other (blood clots in lungs) Son ALLERGIES: ALLERGIES Allergen Reactions Iodine Hives CURRENT MEDICATIONS: vit C/E/Zn/coppr/lutein/zeaxan (PRESERVISION AREDS-2 ORAL)Take 1 tablet by mouth twice daily.Disp: Rfl: gabapentin (NEURONTIN) 300 mg capsuleTake 2 capsules by mouth daily at bedtime for 180 days.Disp: 360 capsuleRfl: 0 traMADol (ULTRAM) 50 mg tabletTake 1 tablet by mouth every 6 hours as needed for up to 99 days.Disp: 28 tabletRfl: 0 omega-3/dha/epa/ (more content not included)...[facility] 11-08-2022 History of Present illness Narrative* Shira Seymour MD - 11/08/2022 11:15 AM EDT Images from the original note were not included. [facility] SECTION OF HEART FAILURE and CARDIAC TRANSPLANT MEDICINE OUTPATIENT VISIT DATE November 08, 2022 OUTPATIENT VISIT TYPE Established Patient PRIMARY CARE PHYSICIAN: Gab Pisano [address] [place] [address] CHIEF COMPLAINT: Doing well NURSING INTAKE (Patient s concerns and/or recent hospitalizations/ER visits): HF Nursing Assessment: Interim Hospitalizations and/or ER visits:no Chest Pain: no Skipping or irregular heartbeats: yes, occasionally Shortness of breath at rest: no Shortness of breath with activity: yes Cough: yes, dry Waking up in the middle of the night gasping for air: no Lightheadedness or dizziness: yes, when get up too quickly or bend over Feeling like you are going to pass out: no Actually passing out: no Poor energy level: yes Unintentional weight gain: no Unintentional weight loss: no Swelling in your legs,feet, abdomen: no Filling up quickly when you eat: yes HISTORY OF PRESENT ILLNESS: Overall feeling well. Denies any peripheral edema, orthopnea or PND. 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/12/2008 Chest pain Cholecystitis 05/22/2022 Chronic kidney disease (CKD), stage III (moderate) (HCC) 07/27/2016 Coronary artery disease due to calcified coronary lesion 06/22/2021 Diverticulitis Diverticulosis of colon (without mention of hemorrhage) Diverticulosis of colon with hemorrhage DVT (deep venous thrombosis) (HCC) After knee surgery Dysmetabolic syndrome X Hemorrhage of gastrointestinal tract, unspecified Hernia of other specified sites of abdominal cavity without mention of obstruction or gangrene 2006 Patient has 2 or 3 hernias at abdomen and groin Internal hemorrhoids without mention of complication Other and unspecified hyperlipidemia PE (pulmonary embolism) after hernia surgery Symptomatic cholelithiasis 03/29/2022 Umbilical hernia 07/22/2009 Unspecified essential hypertension Unspecified gastritis and gastroduodenitis 03/12/2008 Unspecified hypothyroidism PAST SURGICAL HISTORY Procedure Laterality Date ARTHRP ACETBLR/PROX FEM PROSTC AGRFT/ALGRFT 2003 Hip replacement, total, left ARTHRP ACETBLR/PROX FEM PROSTC AGRFT/ALGRFT 2002 left hip COLONOSCOPY FLX DX W/COLLJ SPEC WHEN PFRMD 09/15/1998 Colonoscopy COLONOSCOPY FLX DX W/COLLJ SPEC WHEN PFRMD 08/07/2005 Colonoscopy COLONOSCOPY FLX DX W/COLLJ SPEC WHEN [facility]MD [facility] COLONOSCOPY FLX DX W/COLLJ SPEC WHEN PFRMD 03/05/2014 Colonoscopy COLSC FLX W/REMOVAL LESION BY HOT BX FORCEPS 03/12/2008 EGD TRANSORAL BIOPSY SINGLE/MULTIPLE 03/12/2008 EGD TRANSORAL BIOPSY SINGLE/MULTIPLE 09/30/2012 ESOPHAGOGASTRODUODENOSCOPY TRANSORAL DIAGNOSTIC 06/10/2015 EGD HYSTERECTOMY, REVISE VAGINA; COLPECTOMY 1980 Hysterectomy with bladder repair still ovaries ARTEAGA W/O FACETEC FORAMOT/DSC 1/2 VRT SGM CRV 2001 Discectomy and fusion, cervical LAPAROSCOPIC CHOLECYSTECTOMY 03/29/2022 LAPS SURG RPR RECURRENT INGUINAL HERNIA 07/22/2009 LIGJ DIVJ &/EXCJ VARICOSE VEIN CLUSTER 1 LEG 1985 Varicose Vein Surgery PAST SURGICAL HISTORY OF 2001 cervical spine repair PAST SURGICAL HISTORY OF 11/04/2014 cystocele REMOVAL GALLBLADDER 03/29/2022 RPR 1ST INGUN HRNA AGE 5 YRS/> REDUCIBLE 1980 Hernia repair, inguinal RPR 1ST INGUN HRNA AGE 5 YRS/> REDUCIBLE 1980 Hernia repair, inguinal, bilateral RPR UMBILICAL HRNA 5 YRS/> REDUCIBLE 07/22/2009 THYROIDECTOMY TOTAL/COMPLETE 1994 TONSILLECTOMY AND ADENOIDECTOMY HX 1968 TONSILLECTOMY PRIMARY/SECONDARY <AGE 12 Tonsillectomy X-RAY PLACEMENT, VEIN FILTER 08/13/2009 SOCIAL HISTORY Social History Tobacco Use Smoking status: Never Smokeless tobacco: Never Vaping Use Vaping Use: Never used Substance Use Topics Alcohol use: No Drug use: No FAMILY HISTORY Problem Relation Age of Onset Coronary Artery Disease Mother 83, CVA Colon Cancer Mother Coronary Artery Disease Father [place] 45 Cancer Brother multiple myeloma None Daughter None Daughter other (heart attack) Son other (fibramyalgia) Son other (blood clots in lungs) Son ALLERGIES: ALLERGIES Allergen Reactions Iodine Hives CURRENT MEDICATIONS: vit C/E/Zn/coppr/lutein/zeaxan (PRESERVISION AREDS-2 ORAL)^Take 1 tablet by mouth twice daily.^Disp: ^Rfl: gabapentin (NEURONTIN) 300 mg capsule^Take 2 capsules by mouth daily at bedtime for 180 days.^Disp:360 capsule^Rfl: 0 traMADol (ULTRAM) 50 mg tablet^Take 1 tablet by mouth every 6 hours as needed for up to 99 days.^Disp: 28 tablet^Rfl: 0 omega-3/dha/epa/fish oil (OMEGA-3 ORAL)^Take 1 tablet by mouth once daily.^Disp: ^Rfl: levothyroxine (SYNTHROID) 88 mcg tablet^Take 1 tablet by mouth once daily.^Disp: 90 tablet^Rfl: 3 rosuvastatin (CRESTOR) 20 mg tablet^Take 1 tablet by mouth once daily.^Disp: 90 tablet^Rfl: 1 metoprolol succinate ER (TOPROL XL) 25 mg 24 hr tablet^Take 0.5 tablets by mouth once daily.^Disp: 45 tablet^Rfl: 3 acetaminophen (TYLENOL EXTRA STRENGTH) 500 mg tablet^Take 2 tablets by mouth every 6 hours as needed for pain.^Disp: ^Rfl: ZINC ORAL^Take 1 tablet by mouth once daily.^Disp: ^Rfl: cholecalciferol, vitamin D3, (VITAMIN D3 ORAL)^Take 5,000 Units by mouth once daily.^Disp: ^Rfl: torsemide (DEMADEX) 10 mg tablet^Take 2 tablets by mouth once daily.^Disp: 180 tablet^Rfl: 3 tafamidis (VYNDAMAX) 61 mg^Take 1 capsule by mouth once daily.^Disp: 30 capsule^Rfl: 11 enoxaparin (LOVENOX) 60 mg/0.6 mL syrg^Inject 0.6 mL subcutaneously once daily.^Disp: 90 Each^Rfl: 3 vitamin A (AQUASOL A) 10,000 unit capsule^Take 10,000 Units by mouth Every 3 Days.^Disp: ^Rfl: aspirin, enteric coated (ASPIRIN, ENTERIC COATED) 81 mg EC tablet^Take 1 tablet by mouth once daily.^Disp: ^Rfl: polyethylene glycol 3350 (MIRALAX, GLYCOLAX) 17 gram/dose powder^as needed. One capful with a full glass of water, 2-3 times a day Or as directed ^Disp: ^Rfl: REVIEW OF SYSTEMS: CONSTITUTION: Negative for: Weight loss or gain, Fever. Chills, Night sweats HEENT: Negative for: Hearing loss, Nosebleeds, Mouth sores, Trouble swallowing, Dry mouth RESPIRATORY: Positive for: Difficulty breathing Negative for: Cough GASTROINTESTINAL: Negative for: Melena, Diarrhea, Nausea, Abdominal distension, Early satiety MUSCULOSKELETAL: Negative for: Arthralgias, Myalgias NEUROLOGICAL: Negative for: Headaches, Dizziness SKIN: Negative for: Rash EYES: Negative for: Vision disturbance CARDIOVASCULAR: Negative for: Chest pain, Leg swelling, Arrhythmia, Presyncope GENITOURINARY: Negative for: Difficulty urinatiing PATIENT ENTERED DATA: No flowsheet data found. No flowsheet data found. PROMIS Global Health - (T-Scores - the mean of general population = 50. Five points is a clinicallymeaningful difference.) 02/05/2017 02/05/2017 Physical T-Score 44.9 44.9 Mental T-Score 50.8 50.8 PHYSICAL EXAMINATION: BP 132/70 (BP Site: Left Arm) Pulse 64 Temp 36.7 C (98.1 F) (Oral) Resp 15 Ht 165.1 cm (5' 5 ) Wt 61.2 kg (135 lb) SpO2 96% BMI 22.47 kg/m General: Well appearing, in no acute distress. Skin: No clubbing, no cyanosis. Eyes: Extra ocular movements intact Oropharynx: Teeth in good repair. Neck: No jugular venous distention, no carotid bruits, carotids have a normal upstroke, no palpablethyromegaly. Lungs: Clear to auscultation bilaterally, no wheezing or rhonchi. Heart: Regular rhythm, PMI not displaced, S1, S2 normal, no S3, no S4, no heaves, no rub and no murmur. Abdomen: Soft, nontender, bowel sounds normal, no palpable organomegaly, no bruits. Extremities: No peripheral edema . Grade 2/4 distal pulses bilaterally. Neuro: Oriented to person, place and time, alert, cooperative, gait coordinated. CARDIOVASCULAR MEDICINE TESTING: I have personally reviewed the Electrocardiogram and Laboratory Testing. Last EKG Result Conclusion ECG COMPLETE Collected: 11/08/2022 9:02 AM (Preliminary result) Impression: SINUS BRADYCARDIA WITH 1ST DEGREE AV BLOCK LEFT AXIS DEVIATION MINIMAL VOLTAGE CRITERIA FOR LVH, MAY BE NORMAL VARIANT ( Ragland product ) INFERIOR MYOCARDIAL INFARCTION , AGE UNDETERMINED ANTEROSEPTAL MYOCARDIAL INFARCTION , AGE UNDETERMINED ABNORMAL ECG IMPRESSION: NYHA Functional Class: II (stable but SOB with climbing stairs Stage: C heart failure Weight stable 1) Wild type Cardiac Amyloidosis No hospitalization for ADHF. On Tafamidis (Vyndamax) 61 mg every day since Dec 2019. In Cardiottransform trial Eplontersen or placebo +LVH with 1.6 and 1.9 cm with LVEF 68% on echo (11/12/2019) No changes to medications. Continue clinical trial protocol. PLAN: Follow up per study protocol I personally interviewed, confirmed and edited the above information as obtained by others I personally spent 30 minutes in total time involved in the management and care of this patient. Wediscussed natural history of disease, current treatment options, and future potential treatment options. We discussed diet, exercise, other non-medical management as above. Shira Seymour MD [facility] Section Of Heart Failure and Cardiac Transplant Medicine [facility] Desk [id number] [place] [address] documented in this encounterAkron [facility]08-09-2023 NoteHNO ID: [id number] Author: Winsome Calvo Service: ? Author Type: ? Type: Progress Notes Filed: 12/22/2022 1:09 PM Note Text: [facility] Dr. Zam[facility] Study Visit: Week 121 I met with the patient for the Study Day 84 Visit for the CardioTTRansform Study. Reaffirmed that the patient still wishes to participate in the study and continues to consent to the study. Has the patient had any changes in her health since the last study visit? No Has the patient had any outside hospitalizations/ER visits: No Dates and locations: n/a KCCQ completed: Yes [place] QoL completed: Yes [id number] completed: Yes Ocular Questionnaire completed: Yes SF-36 completed: Yes Patient Global Assessment of Severity completed: Not Required per protocol Patient Global Assessment of Change completed: Not Required per protocol Blood and urine samples collected per protocol. Discussed with patient the requirement to take a daily Vitamin A supplement. Supplement was provided to patient. She verbalized understanding. Study drug was administered by site personnel at 12:34 in the patient?s outer area right arm. At home dosing education was reviewed with patient / caregiver. Teach back utilized. Study drug diary was reviewed with the patient and education on how to complete it was provided. She verbalized understanding. Study drug was dispensed to patient for home use. Discussed with the patient the importance of follow up in the study. She verbalized understanding. Patient contact information reaffirmed and updated. Coordinator contact information provided to the patient. Education provided: Protocol required tests/procedures Materials dispensed: None lead clinical research coordinator: Winsome Abdulvamsi Pager #: [phone] History of Present illness Narrative* Winsome Calvo - 11/08/2022 8:49 AM EDT IRB #20- [place] PI: Dr. Zamora Study Visit: Week 121 I met with the patient for the Study Day 84 Visit for the CardioTTRansform Study. Reaffirmed that the patient still wishes to participate in the study and continues to consent to the study. Has the patient had any changes in her health since the last study visit? No Has the patient had any outside hospitalizations/ER visits: No Dates and locations: n/a KCCQ completed: Yes [place] QoL completed: Yes [id number] completed: Yes Ocular Questionnaire completed: Yes SF-36 completed: Yes Patient Global Assessment of Severity completed: Not Required per protocol Patient Global Assessment of Change completed: Not Required per protocol Blood and urine samples collected per protocol. Discussed with patient the requirement to take a daily Vitamin A supplement. Supplement was provided to patient. She verbalized understanding. Study drug was administered by site personnel at 12:34 in the patient s outer area right arm. At home dosing education was reviewed with patient / caregiver. Teach back utilized. Study drug diary was reviewed with the patient and education on how to complete it was provided. She verbalized understanding. Study drug was dispensed to patient for home use. Discussed with the patient the importance of follow up in the study. She verbalized understanding. Patient contact information reaffirmed and updated. Coordinator contact information provided to the patient. Education provided: Protocol required tests/procedures Materials dispensed: None lead clinical research coordinator: Winsome Chavez Rust Pager #: [phone] documented in this encounterAk[facility] NoteHNO ID: [id number] Author: Diane Alcala RN Service: ? Author Type: Registered Nurse Type: Progress Notes Filed: 11/01/2022 11:47 AM Note Text: CDM Telephonic Outreach Provider Action/FYI CDM; CHF, CKD Left a message to verify symptom status, instructed to call PCP with any changes in condition or needs. Contacted for: Routine Telephonic Outreach Contact made with patient: No, left message. Diane Alcala RN November 01, 2022 11:44 [facility]08-02-2023 History of Present illness Narrative* Diane Alcala RN - 11/01/2022 11:42 AM EDT CDM Telephonic Outreach Provider Action/FYI CDM; CHF, CKD Left a message to verify symptom status, instructed to call PCP with any changes in condition or needs. Contacted for: Routine Telephonic Outreach Contact made with patient: No, left message. Diane Alcala RN November 01, 2022 11:44 AM * Diane Alcala RN - 10/30/2022 11:26 AM EDT CDM Telephonic Outreach Provider Action/BEAU RODRIGUEZM; CHF, CKD Called Pt, unable to leave a message to verify symptom status and needs. Contacted for: Routine Telephonic Outreach Contact made with patient: No, unable to leave message. Will reattempt call Diane Alcala RN October 30, 2022 11:26 AM documented in this encounterAkron [facility]08-01-2023 Miscellaneous Notes* Telephone Encounter - Corinne Hodgson LPN - 10/31/2022 7:38 AM EDT Patient has been identified by name and date of : No Patient phones for refill(s): Requested Prescriptions Pending Prescriptions Disp Refills gabapentin (NEURONTIN) 300 mg capsule 2 Sig: Take 2 capsules by mouth daily at bedtime for 180 days. Date of last office visit in primary care: 10/12/22 Last 2 Encounter Wt Readings: Date: Wt: 10/12/2022 61.2 kg (135 lb) 08/17/2022 61.5 kg (135 lb 9.6 oz) Previous labs/tests for medication: Not applicable Please advise. Thank you. Corinne Hodgson LPN * Telephone Encounter - Alison Cueva - 10/30/2022 8:24 AM EDT Patient has been identified by name and date of : Yes Last office visit in this department: 10/12/2022 RX INSTRUCTIONS: Patient aware RX will be sent to pharmacy. No need to notify patient. Patient phones requesting refills as follows: Requested Prescriptions Pending Prescriptions Disp Refills gabapentin (NEURONTIN) 300 mg capsule 2 Sig: Take 2 capsules by mouth daily at bedtime for 180 days. Please review and advise. Alison Cordero documented in this encounterAkron Children'[facility]07-31-2023 NotePatient Outreach ([facility]) YRIS VILLAGOMEZ ([id number]) 1940 F Date Time Provider Department 10/30/22 DIANE ALCALA AMBMARCY During your visit today, we recorded the following information about you: Diane Alcala RN 11/01/2022 11:47 AM Signed CDM Telephonic Outreach Provider Action/BEAU RODRIGUEZM; CHF, CKD Called Pt, unable to leave a message to verify symptom status and needs. Contacted for: Routine Telephonic Outreach Contact made with patient: No, unable to leave message. Will reattempt call Diane Alcala RN October 30, 2022 11:26 AM Diane Alcala RN 11/01/2022 11:47 AM Signed CDM Telephonic Outreach Provider Action/BEAU CDM; CHF, CKD Left a message to verify symptom status, instructed to call PCP with any changes in condition or needs. Contacted for: Routine Telephonic Outreach Contact made with patient: No, left message. Diane Alcala RN November 01, 2022 11:44 AM Allergies As of Date: 10/30/2022 Noted Allergy Reaction IODINE 12/19/2004 4 - Hives Date Reviewed: 10/12/2022 Reviewed by: Samantha Reynolds LPN - Fully Assessed Reason for Visit: Community Monitoring Outreach [Other] Prescriptions as of 11/01/2022 - gabapentin (NEURONTIN) 300 mg capsule Take 2 capsules by mouth daily at bedtime for 180 days. - traMADol (ULTRAM) 50 mg tablet Take 1 tablet by mouth every 6 hours as needed for up to 99 days. - omega-3/dha/epa/fish oil (OMEGA-3 ORAL) Take 1 tablet by mouth once daily. - levothyroxine (SYNTHROID) 88 mcg tablet Take 1 tablet by mouth once daily. - tiZANidine (ZANAFLEX) 4 mg tablet Take 1 tablet by mouth every 8 hours as needed (muscle spasms). - rosuvastatin (CRESTOR) 20 mg tablet Take 1 tablet by mouth once daily. - metoprolol succinate ER (TOPROL XL) 25 mg 24 hr tablet Take 0.5 tablets by mouth once daily. - acetaminophen (TYLENOL EXTRA STRENGTH) 500 mg tablet Take 2 tablets by mouth every 6 hours as needed for pain. - ZINC ORAL Take 1 tablet by mouth once daily. - cholecalciferol, vitamin D3, (VITAMIN D3 ORAL) Take 5,000 Units by mouth once daily. - torsemide (DEMADEX) 10 mg tablet Take 2 tablets by mouth once daily. - tafamidis (VYNDAMAX) 61 mg Take 1 capsule by mouth once daily. - enoxaparin (LOVENOX) 60 mg/0.6 mL syrg Inject 0.6 mL subcutaneously once daily. - vitamin A (AQUASOL A) 10,000 unit capsule Take 10,000 Units by mouth Every 3 Days. - aspirin, enteric coated (ASPIRIN, ENTERIC COATED) 81 mg EC tablet Take 1 tablet by mouth once daily. - polyethylene glycol 3350 (MIRALAX, GLYCOLAX) 17 gram/dose powder as needed. One capful with a full glass of water, 2-3 times a day Or as directed Facility-Administered Medications as of 11/01/2022 - perflutren lipid microspheres 1.3 mL in NaCl (PF) 0.9% 10 mL injection (DEFINITY) - sodium chloride 0.9 % (flush) 10 mL (BD POSIFLUSH) - perflutren lipid microspheres 1.3 mL in NaCl (PF) 0.9% 10 mL injection (DEFINITY) - sodium chloride 0.9 % (flush) 10 mL (BD POSIFLUSH) - perflutren lipid microspheres 1.3 mL in NaCl (PF) 0.9% 10 mL injection (DEFINITY) - sodium chloride 0.9 % (flush) 10 mL (BD POSIFLUSH) - perflutren lipid microspheres 1.3 mL in NaCl (PF) 0.9% 10 mL injection (DEFINITY) - sodium chloride 0.9 % (flush) 10 mL (BD POSIFLUSH) - perflutren lipid microspheres 1.3 mL in NaCl (PF) 0.9% 10 mL injection (DEFINITY) - sodium chloride 0.9 % (flush) 10 mL (BD POSIFLUSH) - perflutren lipid microspheres 1.3 mL in NaCl (PF) 0.9% 10 mL injection (DEFINITY) - sodium chloride 0.9 % (flush) 10 mL (BD POSIFLUSH) Problem List As Of Date 10/30/2022 Noted Resolved Mixed hyperlipidemia [E78.2] Essential hypertension [I10] Hypothyroidism [E03.9] 09/30/2018 INSOMNIA NOS [G47.00] 05/16/2005 Adjustment disorder with depressed mood [F43.21]05/16/2005 08/28/2013 Abdominal pain, unspecified site [R10.9] 08/28/2013 INGUINAL HERNIA, BILAT, RECURRENT W/O GANGRENE/*11/30/2006 08/28/2013 Blood in stool [K92.1] 03/11/2008 08/28/2013 Benign neoplasm of colon [D12.6] 03/12/2008 08/28/2013 Unspecified gastritis and gastroduodenitis with*03/12/2008 08/28/2013 DIVERTICULOSIS OF COLON W/O BLEED [K57.30] 03/12/2008 Umbilical hernia without mention of obstruction*06/21/2009 08/28/2013 Pulmonary embolism (HCC) [I26.99] 08/26/2009 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 Status post inguinal hernia repair [Z98.890, Z8*11/23/2009 08/28/2013 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 Author Type: Registered Nurse Type: Progress Notes Filed: 11/01/2022 11:47 AM Note Text: CDM Telephonic Outreach Provider Action/DIALLOI CDM; CHF, CKD Called Pt, unable to leave a message to verify symptom status and needs. Contacted for: Routine Telephonic Outreach Contact made with patient: No, unable to leave message. Will reattempt call Diane Alcala RN October 30, 2022 11:26 [facility]07-20-2023 Miscellaneous Notes* Telephone Encounter - Frances Chavez Ma - 10/19/2022 10:11 AM EDT Patient notified. * Telephone Encounter - Eugenio Hernandez MD - 10/19/2022 9:03 AM EDT Increase to two capsules at bedtime. Call for early refill and change of prescription when needed. * Telephone Encounter - Angelina Fisher LPN - 10/19/2022 8:21 AM EDT Pt calling to let you know the medication given Gabapentin 300 mg 1 at bedtime is not strong enough. Please advise pt. Okay to leave a detailed message. Pharmacy updated. Angelina Fisher LPN documented in this encounterAkron [facility]07-13-2023 NoteHNO ID: [id number] Author: Eugenio Hernandez MD Service: ? Author Type: Physician Type: Progress Notes Filed: 10/12/2022 3:55 PM Note Text: This note was created using Sonicsriter. Subjective Yris Villagomez is a 81 year old female. She had chronic neuropathy of her upper and lower extremities. The pins, needles, and pain in both hands became more bothersome recently, and involved all fingers, hands, wrists, and forearms. Pain was worse up to 10/10 at night. Tramadol did not help. She had weakness in handgrips and muscle wasting noted previously. Review of Systems Constitutional: Negative for fever. 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) Chronic Anticoagulation Chronic Kidney Disease (Ckd), Stage Iii (Moderate) (Hcc) Gastroesophageal Reflux Disease Post-Phlebitic Syndrome Osteoarthritis of Right Hip Status Post Right Hip Replacement 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 omega-3/dha/epa/fish oil (OMEGA-3 ORAL) Take 1 tablet by mouth once daily. levothyroxine (SYNTHROID) 88 mcg tablet Take 1 tablet by mouth once daily. tiZANidine (ZANAFLEX) 4 mg tablet Take 1 tablet by mouth every 8 hours as needed (muscle spasms). rosuvastatin (CRESTOR) 20 mg tablet Take 1 tablet by mouth once daily. metoprolol succinate ER (TOPROL XL) 25 mg 24 hr tablet Take 0.5 tablets by mouth once daily. acetaminophen (TYLENOL EXTRA STRENGTH) 500 mg tablet Take 2 tablets by mouth every 6 hours as needed for pain. ZINC ORAL Take 1 tablet by mouth once daily. cholecalciferol, vitamin D3, (VITAMIN D3 ORAL) Take 5,000 Units by mouth once daily. torsemide (DEMADEX) 10 mg tablet Take 2 tablets by mouth once daily. tafamidis (VYNDAMAX) 61 mg Take 1 capsule by mouth once daily. enoxaparin (LOVENOX) 60 mg/0.6 mL syrg Inject 0.6 mL subcutaneously once daily. vitamin A (AQUASOL A) 10,000 unit capsule Take 10,000 Units by mouth Every 3 Days. aspirin, enteric coated (ASPIRIN, ENTERIC COATED) 81 mg EC tablet Take 1 tablet by mouth once daily. polyethylene glycol 3350 (MIRALAX, GLYCOLAX) 17 gram/dose powder as needed. One capful with a full glass of water, 2-3 times a day Or as directed gabapentin (NEURONTIN) 300 mg capsule Take 1 capsule by mouth daily at bedtime for 90 days. Current Facility-Administered Medications Medication Dose Route Frequency perflutren lipid microspheres 1.3 mL in NaCl (PF) 0.9% 10 mL injection (DEFINITY) INTRAVENOUS DIRECTED PRN sodium chloride 0.9 % (flush) 10 mL (BD POSIFLUSH) 10 mL INTRAVENOUS DIRECTED PRN perflutren lipid microspheres 1.3 mL in NaCl (PF) 0.9% 10 mL injection (DEFINITY) INTRAVENOUS DIRECTED PRN sodium chloride 0.9 % (flush) 10 mL (BD POSIFLUSH) 10 mL INTRAVENOUS DIRECTED PRN perflutren lipid microspheres 1.3 mL in NaCl (PF) 0.9% 10 mL injection (DEFINITY) INTRAVENOUS DIRECTED PRN sodium chloride 0.9 % (flush) 10 mL (BD POSIFLUSH) 10 mL INTRAVENOUS DIRECTED PRN perflutren lipid microspheres 1.3 mL in NaCl (PF) 0.9% 10 mL injection (DEFINITY) INTRAVENOUS DIRECTED PRN sodium chloride 0.9 % (flush) 10 mL (BD POSIFLUSH) 10 mL INTRAVENOUS DIRECTED PRN perflutren lipid microspheres 1.3 mL in NaCl (PF) 0.9% 10 mL injection (DEFINITY) INTRAVENOUS DIRECTED PRN sodium chloride 0.9 % (flush) 10 mL (BD POSIFLUSH) 10 mL INTRAVENOUS DIRECTED PRN perflutren lipid microspheres 1.3 mL in NaCl (PF) 0.9% 10 mL injection (DEFINITY) INTRAVENOUS DIRECTED PRN sodium chloride 0.9 % (flush) 10 mL (BD POSIFLUSH) 10 mL INTRAVENOUS DIRECTED PRN Objective BP 130/74 (BP Site: Left Arm, BP Position: Sitting, BP Cuff Size: Large Adult) Pulse 68 Resp 16 Wt 61.2 kg (135 lb) BMI 22.47 kg/m? Physical Exam Constitutional: General: She is not in acute distress. Appearance: She is not ill-appearing. Pulmonary: Effort: Pulmonary effort is normal. Musculoskeletal: Right wrist: No tenderness. Left wrist: No tenderness. Right hand: No tenderness. Normal strengt (more content not included)... [facility]07-13-2023 History of Present illness Narrative* Eugenio Hernandez MD - 10/12/2022 3:30 PM EDT This note was created using Sonicsriter. Subjective Yris Villagomez is a 81 year old female. She had chronic neuropathy of her upper and lower extremities. The pins, needles, and pain in both hands became more bothersome recently, and involved all fingers, hands, wrists, and forearms. Pain was worse up to 10/10 at night. Tramadol did not help. She had weakness in handgrips and muscle wasting noted previously. Review of Systems Constitutional: Negative for fever. 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) Chronic Anticoagulation Chronic Kidney Disease (Ckd), Stage Iii (Moderate) (Hcc) Gastroesophageal Reflux Disease Post-Phlebitic Syndrome Osteoarthritis of Right Hip Status Post Right Hip Replacement 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 omega-3/dha/epa/fish oil (OMEGA-3 ORAL) Take 1 tablet by mouth once daily. levothyroxine (SYNTHROID) 88 mcg tablet Take 1 tablet by mouth once daily. tiZANidine (ZANAFLEX) 4 mg tablet Take 1 tablet by mouth every 8 hours as needed (muscle spasms). rosuvastatin (CRESTOR) 20 mg tablet Take 1 tablet by mouth once daily. metoprolol succinate ER (TOPROL XL) 25 mg 24 hr tablet Take 0.5 tablets by mouth once daily. acetaminophen (TYLENOL EXTRA STRENGTH) 500 mg tablet Take 2 tablets by mouth every 6 hours as needed for pain. ZINC ORAL Take 1 tablet by mouth once daily. cholecalciferol, vitamin D3, (VITAMIN D3 ORAL) Take 5,000 Units by mouth once daily. torsemide (DEMADEX) 10 mg tablet Take 2 tablets by mouth once daily. tafamidis (VYNDAMAX) 61 mg Take 1 capsule by mouth once daily. enoxaparin (LOVENOX) 60 mg/0.6 mL syrg Inject 0.6 mL subcutaneously once daily. vitamin A (AQUASOL A) 10,000 unit capsule Take 10,000 Units by mouth Every 3 Days. aspirin, enteric coated (ASPIRIN, ENTERIC COATED) 81 mg EC tablet Take 1 tablet by mouth once daily. polyethylene glycol 3350 (MIRALAX, GLYCOLAX) 17 gram/dose powder as needed. One capful with a full glass of water, 2-3 times a day Or as directed gabapentin (NEURONTIN) 300 mg capsule Take 1 capsule by mouth daily at bedtime for 90 days. Current Facility-Administered Medications Medication Dose Route Frequency perflutren lipid microspheres 1.3 mL in NaCl (PF) 0.9% 10 mL injection (DEFINITY) INTRAVENOUS DIRECTED PRN sodium chloride 0.9 % (flush) 10 mL (BD POSIFLUSH) 10 mL INTRAVENOUS DIRECTED PRN perflutren lipid microspheres 1.3 mL in NaCl (PF) 0.9% 10 mL injection (DEFINITY) INTRAVENOUS DIRECTED PRN sodium chloride 0.9 % (flush) 10 mL (BD POSIFLUSH) 10 mL INTRAVENOUS DIRECTED PRN perflutren lipid microspheres 1.3 mL in NaCl (PF) 0.9% 10 mL injection (DEFINITY) INTRAVENOUS DIRECTED PRN sodium chloride 0.9 % (flush) 10 mL (BD POSIFLUSH) 10 mL INTRAVENOUS DIRECTED PRN perflutren lipid microspheres 1.3 mL in NaCl (PF) 0.9% 10 mL injection (DEFINITY) INTRAVENOUS DIRECTED PRN sodium chloride 0.9 % (flush) 10 mL (BD POSIFLUSH) 10 mL INTRAVENOUS DIRECTED PRN perflutren lipid microspheres 1.3 mL in NaCl (PF) 0.9% 10 mL injection (DEFINITY) INTRAVENOUS DIRECTED PRN sodium chloride 0.9 % (flush) 10 mL (BD POSIFLUSH) 10 mL INTRAVENOUS DIRECTED PRN perflutren lipid microspheres 1.3 mL in NaCl (PF) 0.9% 10 mL injection (DEFINITY) INTRAVENOUS DIRECTED PRN sodium chloride 0.9 % (flush) 10 mL (BD POSIFLUSH) 10 mL INTRAVENOUS DIRECTED PRN Objective BP 130/74 (BP Site: Left Arm, BP Position: Sitting, BP Cuff Size: Large Adult) Pulse 68 Resp 16 Wt 61.2 kg (135 lb) BMI 22.47 kg/m Physical Exam Constitutional: General: She is not in acute distress. Appearance: She is not ill-appearing. Pulmonary: Effort: Pulmonary effort is normal. Musculoskeletal: Right wrist: No tenderness. Left wrist: No tenderness. Right hand: No tenderness. Normal strength. Normal sensation. Left hand: No tenderness. Normal strength. Normal sensation. Comments: Bilateral thenar atrophy. Neurological: General: No focal deficit present. Mental Status: She is alert. Comments: Positive Tinel's test. Negative Phalen's test. Psychiatric: Mood and Affect: Mood normal. Assessment and Plan 1. Carpal tunnel syndrome, bilateral - ICD9: 354.0, ICD10: G56.03 (primary diagnosis) - Referral or testing declined. - GABAPENTIN 300 MG CAPSULE Shared Medical Decision Making was done: Benefits: Medication may help symptoms. Risks: Possible side effects were discussed including lethargy, confusion. Possible interactions: n/a. Warnings: n/a. Approved use or off label use: off label. 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 - Call for dose adjustment if effective. 2. Neuropathy - ICD9: 355.9, ICD10: G62.9 - GABAPENTIN 300 MG CAPSULE Eugenio Hernandez MD documented in this encounterAkron [facility]07-13-2023 Miscellaneous Notes* Telephone Encounter - Courtney Juarez Mac RN - 10/12/2022 8:44 AM EDT Patient reports she has had numbness/tingling/pain in helga hands for months but worse lately. Reports she needs something for pain as tylenol and tramadol are ineffective for relief, and hematology told her not to use creams without doctor approval. Scheduled same day appt. Reason for Disposition Numbness (i.e., loss of sensation) in hand or fingers (Exception: just tingling; numbness present > 2 weeks) Answer Assessment - Initial Assessment Questions 1. ONSET: Having helga hand pain for months. Reports it's neuropathy. XS tylenol and tramadol do not help. 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 Takes lovenox injections- doesn't have blood clots right now- on lovenox b/cshe has history of DVT's in legs and also PE's. . 2. LOCATION: Hands, fingers, wrists. A few nights ago went all the way to her elbow. Has tingling now pins and needles- for hours now. Right now like a mild nerve pain. 3. PAIN: Mild right now. Was severe during the night. Was awake until midnight. Sometimes position change gives her relief. Sometimes has to dangle them over the side bed. Reports nurse yesterday thought the pain coming from neuropathy. Patient thinks it could also be carpal tunnel in one wrist. 4. WORK OR EXERCISE: No recent work or exercise. 5. CAUSE: See above 6. AGGRAVATING FACTORS: Using hands makes it worse. Doesn't really matter what she does, it just hurts. 7. OTHER SYMPTOMS: No rash. Sometimes hands look a little puffy. Difficult to button clothes. Rightnow has numbness and tingling in hands. No fever. Hands are weak but can do things. 8. : Post menopausal. Protocols used: Hand and Wrist [id number] documented in this encounterAkron [facility]07-05-2023 Miscellaneous Notes* Telephone Encounter - Angelina Fisher LPN - 10/04/2022 3:13 PM EDT Patient has been identified by name and date of : Yes, Provider Dr. Pisano Date 10/04/22 Time 3:13 pm Patient phones for refill(s): Requested Prescriptions Pending Prescriptions Disp Refills traMADol (ULTRAM) 50 mg tablet 28 tablet 0 Sig: Take 1 tablet by mouth every 6 hours as needed for up to 99 days. Date of last office visit in primary care: 06/02/22 [address] 9[address]7.23 Last 2 Encounter Wt Readings: Date: Wt: 08/17/2022 61.5 kg (135 lb 9.6 oz) 08/07/2022 61.7 kg (136 lb) Previous labs/tests for medication: Not applicable Thank you. Angelina Fisher LPN * Telephone Encounter - Cristy Rivera - 10/04/2022 10:03 AM EDT Patient has been identified by name and date of : Yes Last office visit in this department: 06/02/2022 RX INSTRUCTIONS: Patient aware RX will be sent to pharmacy. No need to notify patient. Patient phones requesting refills as follows: Requested Prescriptions Pending Prescriptions Disp Refills traMADol (ULTRAM) 50 mg tablet 28 tablet 0 Sig: Take 1 tablet by mouth every 6 hours as needed for up to 99 days. Please review and advise. Cristy Rivera documented in this encounterAkron [facility]06-27-2023 NoteHNO ID: [id number] Author: Diane Alcala RN Service: ? Author Type: Registered Nurse Type: Progress Notes Filed: 09/26/2022 5:03 PM Note Text: CDM Telephonic Outreach Provider Action/FYI CDM: CDM CHF, CKD Called home number, unable to leave a message to verify symptom status and needs. Line rang busy Contacted for: Routine Telephonic Outreach Contact made with patient: No, unable to leave message. Will reattempt call Diane Alcala RN September 26, 2022 4:50 [facility] of Present illness Narrative* Diane Alcala RN - 09/26/2022 4:49 PM EDT CDM Telephonic Outreach Provider Action/FYI CDM: CDM CHF, CKD Called home number, unable to leave a message to verify symptom status and needs. Line rang busy Contacted for: Routine Telephonic Outreach Contact made with patient: No, unable to leave message. Will reattempt call Diane Alcala RN September 26, 2022 4:50 PM * Diane Alcala RN - 09/25/2022 3:52 PM EDT CDM Telephonic Outreach Provider Action/FYI CDM: CDM CHF, CKD Called home number, unable to leave a message to verify symptom status and needs. Line was busy Contacted for: Routine Telephonic Outreach Contact made with patient: No, unable to leave message. Will reattempt call Diane Alcala RN September 25, 2022 3:53 PM [facility] NoteHNO ID: [id number] Author: Diane Alcala RN Service: ? Author Type: Registered Nurse Type: Progress Notes Filed: 09/26/2022 5:03 PM Note Text: CDM Telephonic Outreach Provider Action/FYI CDM: CDM CHF, CKD Called home number, unable to leave a message to verify symptom status and needs. Line was busy Contacted for: Routine Telephonic Outreach Contact made with patient: No, unable to leave message. Will reattempt call Diane Alcala RN September 25, 2022 3:53 [facility]06-26-2023 NotePatient Outreach ([facility]) YRIS VILLAGOMEZ ([id number]) 1940 F Date Time Provider Department 09/25/22 DIANE ALCALA During your visit today, we recorded the following information about you: Diane Alcala RN 09/26/2022 5:03 PM Signed CDM Telephonic Outreach Provider Action/FYI CDM: CDM CHF, CKD Called home number, unable to leave a message to verify symptom status and needs. Line was busy Contacted for: Routine Telephonic Outreach Contact made with patient: No, unable to leave message. Will reattempt call Diane Alcala RN September 25, 2022 3:53 PM Diane Alcala RN 09/26/2022 5:03 PM Signed CDM Telephonic Outreach Provider Action/FYI CDM: CDM CHF, CKD Called home number, unable to leave a message to verify symptom status and needs. Merlyn rang busy Contacted for: Routine Telephonic Outreach Contact made with patient: No, unable to leave message. Will reattempt call Diane Alcala RN September 26, 2022 4:50 PM Allergies As of Date: 09/25/2022 Noted Allergy Reaction IODINE 12/19/2004 4 - Hives Date Reviewed: 08/17/2022 Reviewed by: Irene Akers Ma - Fully Assessed Reason for Visit: Community Monitoring Outreach [Other] Prescriptions as of 09/26/2022 - omega-3/dha/epa/fish oil (OMEGA-3 ORAL) Take 1 tablet by mouth once daily. - levothyroxine (SYNTHROID) 88 mcg tablet Take 1 tablet by mouth once daily. - tiZANidine (ZANAFLEX) 4 mg tablet Take 1 tablet by mouth every 8 hours as needed (muscle spasms). - rosuvastatin (CRESTOR) 20 mg tablet Take 1 tablet by mouth once daily. - metoprolol succinate ER (TOPROL XL) 25 mg 24 hr tablet Take 0.5 tablets by mouth once daily. - traMADol (ULTRAM) 50 mg tablet Take 1 tablet by mouth every 6 hours as needed for up to 99 days. - acetaminophen (TYLENOL EXTRA STRENGTH) 500 mg tablet Take 2 tablets by mouth every 6 hours as needed for pain. - ZINC ORAL Take 1 tablet by mouth once daily. - cholecalciferol, vitamin D3, (VITAMIN D3 ORAL) Take 5,000 Units by mouth once daily. - torsemide (DEMADEX) 10 mg tablet Take 2 tablets by mouth once daily. - tafamidis (VYNDAMAX) 61 mg Take 1 capsule by mouth once daily. - enoxaparin (LOVENOX) 60 mg/0.6 mL syrg Inject 0.6 mL subcutaneously once daily. - vitamin A (AQUASOL A) 10,000 unit capsule Take 10,000 Units by mouth Every 3 Days. - aspirin, enteric coated (ASPIRIN, ENTERIC COATED) 81 mg EC tablet Take 1 tablet by mouth once daily. - polyethylene glycol 3350 (MIRALAX, GLYCOLAX) 17 gram/dose powder as needed. One capful with a full glass of water, 2-3 times a day Or as directed Facility-Administered Medications as of 09/26/2022 - perflutren lipid microspheres 1.3 mL in NaCl (PF) 0.9% 10 mL injection (DEFINITY) - sodium chloride 0.9 % (flush) 10 mL (BD POSIFLUSH) - perflutren lipid microspheres 1.3 mL in NaCl (PF) 0.9% 10 mL injection (DEFINITY) - sodium chloride 0.9 % (flush) 10 mL (BD POSIFLUSH) - perflutren lipid microspheres 1.3 mL in NaCl (PF) 0.9% 10 mL injection (DEFINITY) - sodium chloride 0.9 % (flush) 10 mL (BD POSIFLUSH) - perflutren lipid microspheres 1.3 mL in NaCl (PF) 0.9% 10 mL injection (DEFINITY) - sodium chloride 0.9 % (flush) 10 mL (BD POSIFLUSH) - perflutren lipid microspheres 1.3 mL in NaCl (PF) 0.9% 10 mL injection (DEFINITY) - sodium chloride 0.9 % (flush) 10 mL (BD POSIFLUSH) - perflutren lipid microspheres 1.3 mL in NaCl (PF) 0.9% 10 mL injection (DEFINITY) - sodium chloride 0.9 % (flush) 10 mL (BD POSIFLUSH) Problem List As Of Date 09/25/2022 Noted Resolved Mixed hyperlipidemia [E78.2] Essential hypertension [I10] Hypothyroidism [E03.9] 09/30/2018 INSOMNIA NOS [G47.00] 05/16/2005 Adjustment disorder with depressed mood [F43.21]05/16/2005 08/28/2013 Abdominal pain, unspecified site [R10.9] 08/28/2013 INGUINAL HERNIA, BILAT, RECURRENT W/O GANGRENE/*11/30/2006 08/28/2013 Blood in stool [K92.1] 03/11/2008 08/28/2013 Benign neoplasm of colon [D12.6] 03/12/2008 08/28/2013 Unspecified gastritis and gastroduodenitis with*03/12/2008 08/28/2013 DIVERTICULOSIS OF COLON W/O BLEED [K57.30] 03/12/2008 Umbilical hernia without mention of obstruction*06/21/2009 08/28/2013 Pulmonary embolism (HCC) [I26.99] 08/26/2009 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 Status post inguinal hernia repair [Z98.890, Z8*11/23/2009 08/28/2013 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] 12/02/2009 Ac DVT/embl low ext NOS [I82.409] 08/23/2010 11/19/2019 DVT (deep venous thrombosis) (HCC) [I82.409] 10/17/2010 09/30/2018 Groin pain [R10.30] 04/23/2013 08/28/2013 Other symptoms involving digestive system(787.9*03/05/2014 03/05/2014 Abdominal pain, right lower quadrant [R10.31] 03/05/2014 03/05/2014 Chronic abdominal pain [R10.9, G89.29] 05/29/2014 Family history of ischemic heart disease [Z82.4*10/14/2014 11/19/2019 Mixed incontinence [N39.46] 10/28/19 (more content not included)...[facility]05[facility] Miscellaneous Notes* Telephone Encounter - Coco Arredondo - 08/30/2022 11:06 AM EDT August 30, 2022 Name: Yris Villagomez Patient Contact Number: [phone] (home) [phone] (cell) Date of last office visit: 08/17/2022 Reason For Call: Other Issue: Patient states Dr. Zamora wants her to have a Stress Echo - the ordersneed to be added to her chart. Physician: Evi Zamora MD Patient was informed that non-urgent calls may be returned within the next three business days. Yes Coco Wills documented in this encounterAk[facility]05-30-2023 NoteHNO ID: [id number] Author: Diane Alcala RN Service: ? Author Type: Registered Nurse Type: Progress Notes Filed: 08/29/2022 4:38 PM Note Text: CDM Telephonic Outreach Provider Action/FYI CDM: CDM CHF, CKD Spk with Pt denies symptoms, or needs. Instructed to call PCP with any changes in condition Pt verbalized understanding and appreciation for call. Pt is in [facility] research study, has a Nurse visit every 2 weeks for vital signs, blood work Contacted for: Routine Telephonic Outreach Contact made with patient: Yes Patient identified by name and date of . Discussed care with patient Are you experiencing any new or worsening symptoms you need to talk about today? No Disease Specific Do you check your blood pressure at home? Yes, Enter readings: 125/74 Do you have new or worsening shortness of breath with activity? No Do you have new or worsening trouble breathing while lying flat? No Do you have new or worsening swelling of legs, feet or ankles? No Do you feel like you are dehydrated for any reason, including not being able to eat or drink normally, or having less urine/much darker urine than normal for you? No Do you check your daily weight at home? Yes, Have you noticed a sudden gain in weight greater than three pounds in a day or three pounds in a week? No Based on die engraver, the following disposition is advised: No symptoms or symptoms present, not severe. Routed to: No Action Needed YOUNG Education Provided this Outreach: No Diane Alcala RN August 29, 2022 4:37 [facility]05-30-2023 NotePatient Outreach ([facility]) YRIS VILLAGOMEZ ([id number]) 1940 F Date Time Provider Department 08/29/22 DIANE ALCALA During your visit today, we recorded the following information about you: Diane Alcala RN 08/29/2022 4:38 PM Signed CDM Telephonic Outreach Provider Action/FYI CDM: CDM CHF, CKD Spk with Pt denies symptoms, or needs. Instructed to call PCP with any changes in condition Pt verbalized understanding and appreciation for call. Pt is in [facility] research study, has a Nurse visit every 2 weeks for vital signs, blood work Contacted for: Routine Telephonic Outreach Contact made with patient: Yes Patient identified by name and date of . Discussed care with patient Are you experiencing any new or worsening symptoms you need to talk about today? No Disease Specific Do you check your blood pressure at home? Yes, Enter readings: 125/74 Do you have new or worsening shortness of breath with activity? No Do you have new or worsening trouble breathing while lying flat? No Do you have new or worsening swelling of legs, feet or ankles? No Do you feel like you are dehydrated for any reason, including not being able to eat or drink normally, or having less urine/much darker urine than normal for you? No Do you check your daily weight at home? Yes, Have you noticed a sudden gain in weight greater than three pounds in a day or three pounds in a week? No Based on die engraver, the following disposition is advised: No symptoms or symptoms present, not severe. Routed to: No Action Needed YOUNG Education Provided this Outreach: No Diane Alcala, KATHIE August 29, 2022 4:37 PM Allergies As of Date: 08/29/2022 Noted Allergy Reaction IODINE 12/19/2004 4 - Hives Date Reviewed: 08/17/2022 Reviewed by: Irene Akers Ma - Fully Assessed Reason for Visit: Community Monitoring Outreach [Other] Prescriptions as of 08/29/2022 - omega-3/dha/epa/fish oil (OMEGA-3 ORAL) Take 1 tablet by mouth once daily. - levothyroxine (SYNTHROID) 88 mcg tablet Take 1 tablet by mouth once daily. - tiZANidine (ZANAFLEX) 4 mg tablet Take 1 tablet by mouth every 8 hours as needed (muscle spasms). - rosuvastatin (CRESTOR) 20 mg tablet Take 1 tablet by mouth once daily. - metoprolol succinate ER (TOPROL XL) 25 mg 24 hr tablet Take 0.5 tablets by mouth once daily. - traMADol (ULTRAM) 50 mg tablet Take 1 tablet by mouth every 6 hours as needed for up to 99 days. - acetaminophen (TYLENOL EXTRA STRENGTH) 500 mg tablet Take 2 tablets by mouth every 6 hours as needed for pain. - ZINC ORAL Take 1 tablet by mouth once daily. - cholecalciferol, vitamin D3, (VITAMIN D3 ORAL) Take 5,000 Units by mouth once daily. - torsemide (DEMADEX) 10 mg tablet Take 2 tablets by mouth once daily. - tafamidis (VYNDAMAX) 61 mg Take 1 capsule by mouth once daily. - enoxaparin (LOVENOX) 60 mg/0.6 mL syrg Inject 0.6 mL subcutaneously once daily. - vitamin A (AQUASOL A) 10,000 unit capsule Take 10,000 Units by mouth Every 3 Days. - aspirin, enteric coated (ASPIRIN, ENTERIC COATED) 81 mg EC tablet Take 1 tablet by mouth once daily. - polyethylene glycol 3350 (MIRALAX, GLYCOLAX) 17 gram/dose powder as needed. One capful with a full glass of water, 2-3 times a day Or as directed Facility-Administered Medications as of 08/29/2022 - perflutren lipid microspheres 1.3 mL in NaCl (PF) 0.9% 10 mL injection (DEFINITY) - sodium chloride 0.9 % (flush) 10 mL (BD POSIFLUSH) - perflutren lipid microspheres 1.3 mL in NaCl (PF) 0.9% 10 mL injection (DEFINITY) - sodium chloride 0.9 % (flush) 10 mL (BD POSIFLUSH) - perflutren lipid microspheres 1.3 mL in NaCl (PF) 0.9% 10 mL injection (DEFINITY) - sodium chloride 0.9 % (flush) 10 mL (BD POSIFLUSH) - perflutren lipid microspheres 1.3 mL in NaCl (PF) 0.9% 10 mL injection (DEFINITY) - sodium chloride 0.9 % (flush) 10 mL (BD POSIFLUSH) Problem List As Of Date 08/29/2022 Noted Resolved Mixed hyperlipidemia [E78.2] Essential hypertension [I10] Hypothyroidism [E03.9] 09/30/2018 INSOMNIA NOS [G47.00] 05/16/2005 Adjustment disorder with depressed mood [F43.21]05/16/2005 08/28/2013 Abdominal pain, unspecified site [R10.9] 08/28/2013 INGUINAL HERNIA, BILAT, RECURRENT W/O GANGRENE/*11/30/2006 08/28/2013 Blood in stool [K92.1] 03/11/2008 08/28/2013 Benign neoplasm of colon [D12.6] 03/12/2008 08/28/2013 Unspecified gastritis and gastroduodenitis with*03/12/2008 08/28/2013 DIVERTICULOSIS OF COLON W/O BLEED [K57.30] 03/12/2008 Umbilical hernia without mention of obstruction*06/21/2009 08/28/2013 Pulmonary embolism (HCC) [I26.99] 08/26/2009 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 Author Type: Registered Nurse Type: Progress Notes Filed: 08/22/2022 10:55 AM Note Text: CDM Telephonic Outreach Provider Action/FYI CDM CHF, CKD Called Pt left a message to verify symptom status and needs. Instructed to call PCP with any symptom or condition changes. Contacted for: Routine Telephonic Outreach Contact made with patient: No, left message. Diane Alcala RN August 22, 2022 10:55 [facility]05-19-2023 NoteHNO ID: [id number] Author: Diane Alcala RN Service: ? Author Type: Registered Nurse Type: Progress Notes Filed: 08/22/2022 10:55 AM Note Text: CDM Telephonic Outreach Provider Action/FYI CDM CHF, CKD Called Pt left a message to verify symptom status and needs. Instructed to call PCP with any symptom or condition changes. Contacted for: Routine Telephonic Outreach Contact made with patient: No, left message. Diane Alcala RN August 18, 2022 1:17 [facility]05-19-2023 NotePatient Outreach ([facility]) YRIS VILLAGOMEZ ([id number]) 1940 F Date Time Provider Department 08/18/22 DIANE ALCALA AMBMARCY During your visit today, we recorded the following information about you: Diane Alcala RN 08/22/2022 10:55 AM Signed CDM Telephonic Outreach Provider Action/FYI CDM CHF, CKD Called Pt left a message to verify symptom status and needs. Instructed to call PCP with any symptom or condition changes. Contacted for: Routine Telephonic Outreach Contact made with patient: No, left message. Diane Alcala RN August 18, 2022 1:17 PM Diane Alcala RN 08/22/2022 10:55 AM Signed CDM Telephonic Outreach Provider Reyna/[facility] [place] CHF, CKD Called Pt left a message to verify symptom status and needs. Instructed to call PCP with any symptom or condition changes. Contacted for: Routine Telephonic Outreach Contact made with patient: No, left message. Diane Alcala RN August 22, 2022 10:55 AM Allergies As of Date: 08/18/2022 Noted Allergy Reaction IODINE 12/19/2004 4 - Hives Date Reviewed: 08/17/2022 Reviewed by: Irene Akers Ma - Fully Assessed Reason for Visit: Community Monitoring Outreach [Other] Prescriptions as of 08/22/2022 - omega-3/dha/epa/fish oil (OMEGA-3 ORAL) Take 1 tablet by mouth once daily. - levothyroxine (SYNTHROID) 88 mcg tablet Take 1 tablet by mouth once daily. - tiZANidine (ZANAFLEX) 4 mg tablet Take 1 tablet by mouth every 8 hours as needed (muscle spasms). - rosuvastatin (CRESTOR) 20 mg tablet Take 1 tablet by mouth once daily. - metoprolol succinate ER (TOPROL XL) 25 mg 24 hr tablet Take 0.5 tablets by mouth once daily. - traMADol (ULTRAM) 50 mg tablet Take 1 tablet by mouth every 6 hours as needed for up to 99 days. - acetaminophen (TYLENOL EXTRA STRENGTH) 500 mg tablet Take 2 tablets by mouth every 6 hours as needed for pain. - ZINC ORAL Take 1 tablet by mouth once daily. - cholecalciferol, vitamin D3, (VITAMIN D3 ORAL) Take 5,000 Units by mouth once daily. - torsemide (DEMADEX) 10 mg tablet Take 2 tablets by mouth once daily. - tafamidis (VYNDAMAX) 61 mg Take 1 capsule by mouth once daily. - enoxaparin (LOVENOX) 60 mg/0.6 mL syrg Inject 0.6 mL subcutaneously once daily. - vitamin A (AQUASOL A) 10,000 unit capsule Take 10,000 Units by mouth Every 3 Days. - aspirin, enteric coated (ASPIRIN, ENTERIC COATED) 81 mg EC tablet Take 1 tablet by mouth once daily. - polyethylene glycol 3350 (MIRALAX, GLYCOLAX) 17 gram/dose powder as needed. One capful with a full glass of water, 2-3 times a day Or as directed Facility-Administered Medications as of 08/22/2022 - perflutren lipid microspheres 1.3 mL in NaCl (PF) 0.9% 10 mL injection (DEFINITY) - sodium chloride 0.9 % (flush) 10 mL (BD POSIFLUSH) - perflutren lipid microspheres 1.3 mL in NaCl (PF) 0.9% 10 mL injection (DEFINITY) - sodium chloride 0.9 % (flush) 10 mL (BD POSIFLUSH) - perflutren lipid microspheres 1.3 mL in NaCl (PF) 0.9% 10 mL injection (DEFINITY) - sodium chloride 0.9 % (flush) 10 mL (BD POSIFLUSH) - perflutren lipid microspheres 1.3 mL in NaCl (PF) 0.9% 10 mL injection (DEFINITY) - sodium chloride 0.9 % (flush) 10 mL (BD POSIFLUSH) Problem List As Of Date 08/18/2022 Noted Resolved Mixed hyperlipidemia [E78.2] Essential hypertension [I10] Hypothyroidism [E03.9] 09/30/2018 INSOMNIA NOS [G47.00] 05/16/2005 Adjustment disorder with depressed mood [F43.21]05/16/2005 08/28/2013 Abdominal pain, unspecified site [R10.9] 08/28/2013 INGUINAL HERNIA, BILAT, RECURRENT W/O GANGRENE/*11/30/2006 08/28/2013 Blood in stool [K92.1] 03/11/2008 08/28/2013 Benign neoplasm of colon [D12.6] 03/12/2008 08/28/2013 Unspecified gastritis and gastroduodenitis with*03/12/2008 08/28/2013 DIVERTICULOSIS OF COLON W/O BLEED [K57.30] 03/12/2008 Umbilical hernia without mention of obstruction*06/21/2009 08/28/2013 Pulmonary embolism (HCC) [I26.99] 08/26/2009 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 Status post inguinal hernia repair [Z98.890, Z8*11/23/2009 08/28/2013 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] 12/02/2009 Ac DVT/embl low ext NOS [I82.409] 08/23/2010 11/19/2019 DVT (deep venous thrombosis) (HCC) [I82.409] 10/17/2010 09/30/2018 Groin pain [R10.30] 04/23/2013 08/28/2013 Other symptoms involving digestive system(787.9*03/05/2014 03/05/2014 Abdominal pain, right lower quadrant [R10.31] 03/05/2014 03/05/2014 Chronic abdominal pain [R10.9, G89.29] 05/29/2014 Family history of ischemic heart disease [Z82.4*10/14/2014 11/19/2019 Mixed incontinence [N39.46] 10/27/2014 DVT prophylaxis [Z79.899] 11/05/2014 02/21/2022 History of DVT of lower extremity [Z86.718] 11/05/2014 History of pulmonary embolism [Z86.711] 11/05/2014 S/P IVC filter [Z95.828] 11/06/2014 History of pubovaginal sling [Z96.0] 11/06/2014 Acquired hypothyroidism [E03.9] 02/19/2015 Epigastric (more content not included)...[facility]05-18-2023 NoteHNO ID: [id number] Author: Jalyn Boyce, Research Coordinator Service: ? Author Type: Research Type: Progress Notes Filed: 08/18/2022 9:09 AM Note Text: IRB #[id number] CardioDonaldcounts include [facility] beds at the [facility] PI: Dr. Zamora Study Visit: Week 109 I met with the patient for the Study Day 757 Visit for the CardioTTRansform Study. Reaffirmed that the patient still wishes to participate in the study and continues to consent to the study. Has the patient had any changes in her health since the last study visit? Yes. See outside hospitalization ER visits. Has the patient had any outside hospitalizations/ER visits: yes, 05/31/2022, chest pain, discharged to home. 06/13/2022 coronary angiography performed for suspected coronary artery disease, procedure well tolerated, no obstructive epicardial coronary artery disease. KCCQ completed: Not Required per protocol [place] QoL completed: Not Required per protocol [id number] completed: Not Required per protocol Ocular Questionnaire completed: Yes SF-36 completed: Not Required per protocol Patient Global Assessment of Severity completed: Not Required per protocol Patient Global Assessment of Change completed: Not Required per protocol Blood and urine samples collected per protocol. Discussed with patient the requirement to take a daily Vitamin A supplement. She verbalized understanding. Study drug kit # [id number] was administered at 1135 in the patient?s outer left arm. At home dosing education was reviewed with patient / caregiver. Teach back utilized. Study drug diary was reviewed with the patient and education on how to complete it was provided. She verbalized understanding. Study drug was dispensed to patient for home use. Kit #[id number] and kit #[id number]. Kit #[id number] and kit #[id number] returned to site. Discussed with the patient the importance of follow up in the study. She verbalized understanding. Patient contact information reaffirmed and updated. Coordinator contact information provided to the patient. Education provided: Protocol Materials dispensed: Coordinator contact card lead clinical research coordinator: Jalyn Boyce Research Coordinator Pager #: [phone] NoteHNO ID: [id number] Author: Evi Zamora MD Service: ? Author Type: Physician Type: Progress Notes Filed: 09/16/2022 1:46 PM Note Text: [facility] SECTION OF HEART FAILURE and CARDIAC TRANSPLANT MEDICINE OUTPATIENT VISIT DATE August 17, 2022 OUTPATIENT VISIT TYPE Established Patient Last seen by Dr. Zamora on 01/04/2021 PRIMARY CARE PHYSICIAN: Gab Pisano [address] [place] [address] CHIEF COMPLAINT: 6 month visit for CARDIOTTRANSFORM TRIAL HF Nursing Assessment: Interim Hospitalizations and/or ER visits:no Chest Pain: no (previously yes0 Skipping or irregular heartbeats: no Shortness of breath at rest: no Shortness of breath with activity: yes Cough: yes,dry Waking up in the middle of the night gasping for air: no Lightheadedness or dizziness: yes, when get up too quickly or bend over Feeling like you are going to pass out: yes Actually passing out: no Poor energy level: yes,slightly Unintentional weight gain: no Unintentional weight loss: no Swelling in your legs,feet, abdomen: no Filling up quickly when you eat: yes HISTORY OF PRESENT ILLNESS: 81 yr old WF with wild type ATTR cardiac amyloidosis Overall feeling well. Getting injections once a month. No injection site reactions. Gets some SOB with stairs. 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/12/2008 Chest pain Chronic kidney disease (CKD), stage III (moderate) (HCC) 07/27/2016 Coronary artery disease due to calcified coronary lesion 06/22/2021 Diverticulitis Diverticulosis of colon (without mention of hemorrhage) Diverticulosis of colon with hemorrhage DVT (deep venous thrombosis) (HCC) After knee surgery Dysmetabolic syndrome X Hemorrhage of gastrointestinal tract, unspecified Hernia of other specified sites of abdominal cavity without mention of obstruction or gangrene 2006 Patient has 2 or 3 hernias at abdomen and groin Internal hemorrhoids without mention of complication Other and unspecified hyperlipidemia PE (pulmonary embolism) after hernia surgery Umbilical hernia 07/22/2009 Unspecified essential hypertension Unspecified gastritis and gastroduodenitis 03/12/2008 Unspecified hypothyroidism PAST SURGICAL HISTORY Procedure Laterality Date ARTHRP ACETBLR/PROX FEM PROSTC AGRFT/ALGRFT 2002 Hip replacement, total, left ARTHRP ACETBLR/PROX FEM PROSTC AGRFT/ALGRFT 2002 left hip COLONOSCOPY FLX DX W/COLLJ SPEC WHEN PFRMD 09/15/1998 Colonoscopy COLONOSCOPY FLX DX W/COLLJ SPEC WHEN PFRMD 08/07/2005 Colonoscopy COLONOSCOPY FLX DX W/COLLJ SPEC [facility]OS[facility] FLX DX W/COLLJ SPEC WHEN PFRMD 03/05/2014 Colonoscopy COLSC FLX W/REMOVAL LESION BY HOT BX FORCEPS 03/12/2008 EGD TRANSORAL BIOPSY SINGLE/MULTIPLE 03/12/2008 EGD TRANSORAL BIOPSY SINGLE/MULTIPLE 09/30/2012 ESOPHAGOGASTRODUODENOSCOPY TRANSORAL DIAGNOSTIC 06/10/2015 EGD HYSTERECTOMY, REVISE VAGINA; COLPECTOMY 1980 Hysterectomy with bladder repair still ovaries ARTEAGA W/O FACETEC FORAMOT/DSC /2 VRT SGM CRV 2001 Discectomy and fusion, cervical LAPAROSCOPIC CHOLECYSTECTOMY 03/29/2022 LAPS SURG RPR RECURRENT INGUINAL HERNIA 07/22/2009 LIGJ DIVJ AND/EXCJ VARICOSE VEIN CLUSTER 1 LEG 1985 Varicose Vein Surgery PAST SURGICAL HISTORY OF 2001 cervical spine repair PAST SURGICAL HISTORY OF 11/04/2014 cystocele REMOVAL GALLBLADDER 03/29/2022 RPR 1ST INGUN HRNA AGE 5 YRS/> REDUCIBLE 1980 Hernia repair, inguinal RPR 1ST INGUN HRNA AGE 5 YRS/> REDUCIBLE 1980 Hernia repair, inguinal, bilateral RPR UMBILICAL HRNA 5 YRS/> REDUCIBLE 07/22/2009 THYROIDECTOMY TOTAL/COMPLETE 1994 TONSILLECTOMY AND ADENOIDECTOMY HX 1967 TONSILLECTOMY PRIMARY/SECONDARY Tonsillectomy X-RAY PLACEMENT, VEIN FILTER 08/13/2009 SOCIAL HISTORY Social History Tobacco Use Smoking status: Never Smokeless tobacco: Never Vaping Use Vaping Use: Never used Substance Use Topics Alcohol use: No Drug use: No FAMILY HISTORY Problem Relation Age of Onset Coronary Artery Disease Mother 83, CVA Colon Cancer Mother Coronary Artery Disease Father [place] 45 Cancer Brother multiple myeloma None Daughter None Daughter other (heart attack) Son other (fibramyalgia) Son other (blood clots in lungs) Son ALLERGIES: ALLERGIES Allergen Reactions Iodine Hives CURRENT MEDICATIONS: omega-3/dha/epa/fish oil (OMEGA-3 ORAL)Take 1 tablet by mouth once daily.Disp: Rfl: levothyroxine (SYNTHROID) 88 mcg tabletTake 1 tablet by mouth once daily.Disp: 90 tabletRfl: 3 tiZANidine (ZANAFLEX) 4 mg tabletTake 1 tablet by mouth every 8 hours as needed (muscle spasms).Disp: (more content not included)...[facility]05-08-2023 NoteHNO ID: [id number] Author: Omer Narvaez, DO Service: ? 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 3) PE. 4) Post surgical RP hematoma. HPI: The patient is a 81-year-old female who had a remote history of a right saphenous vein thrombophlebitis with clot closely approximating the right femoral vein. This developed following arthroscopic knee surgery in January 2001. The patient was anticoagulated with low molecular weight heparin, transitioned to Coumadin and continued anticoagulant therapy for approximately 4 months. She underwent left hip arthroplasty in 2002 without any venous thromboembolic complications. She did not previously have any bleeding diaphysis nor did she have any bleeding complication from anticoagulant therapy. The patient underwent elective bilateral inguinal hernia repair as well as a ventral hernia repair on July 20, 2009. She received a prophylactic dose of dalteparin 5000 units preoperatively. The morning following surgery, she received another prophylactic dose of 5000 units. The patient experienced abdominal discomfort and was noted to have a drop in hemoglobin. A CT scan of the abdomen and pelvis suggested a more distal right psoas retroperitoneal hematoma. The patient received a transfusion, was observed for another 24 hours. She did not require fresh, frozen plasma. After it was noted that she was stable, she was discharged. The patient re-presented to the emergency department approximately 2-1/2 weeks later with sudden onset chest pain and pressure when she was walking. A CT scan of the chest revealed right-sided pulmonary emboli. She underwent IVC filter placement and was discharged. Was seen by a clerical methods analyst at a tertiary center. 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 It is unclear that this represented a potential bleeding diathesis or a hypercoagulable condition. Diagnosed with SVT/DVT of the right leg 08/16/10--US showed evidence of superficial venous thrombosis of the saphaneofemoral junction extending into a varicosed branch of greater saphaneous vein. Was anticoagulated and maintained on warfarin. Underwent colonoscopy fall 2011--attributed to diverticular bleeding. Hgb was 15 in the ED. INR=1.7. Was hospitalized for diverticulitis August 2012. Had tarry stools. Underwent EGD 09/30/12--no mucosal abnormalities. Underwent right hip replacement in May 2019. No coagulation complications. Was diagnosed with cardiac amyloidosis, transthyretin/wild type. Started on tafamidis late December 2019. Presents for ongoing hematologic management. Interim history: Cholecystectomy went well. No bleeding issues. Hemorrhoid bleeding has been minimal. She is not wearing knee-high compression stockings consistently. Cardiovascular symptoms under good control with her present treatment for hereditary cardiac amyloidosis. Stable dyspnea with stairs. PMH, medications and allergies personally reviewed by me today. Any changes documented in appropriate section. PHYSICAL EXAM: Vitals: Blood pressure 125/74, pulse 73, temperature 36.4 ?C (97.6 ?F), temperature source Temporal, weight 61.7 kg (136 lb). Well-appearing and in no acute distress. EYES: Sclerae are anicteric bilaterally. LYMPHATIC: There is no palpable cervical or supraclavicular adenopathy. RESPIRATORY: Inspiratory breath sounds are of normal intensity in all hooker. CARDIOVASCULAR: Rhythm is regular. Varicose veins all appear stable. Nontender and not inflamed appearing. ABDOMEN: The abdomen is nondistended. Minimal ecchymoses bilaterally lower abdomen. Extremities: No swelling or edema. SKIN: No jaundice or rash. 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 No focal motor weakness. 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 -Remote history of postoperative bleeding complication. This was a retroperitoneal hematoma following inguinal hernia repair in the setting of prophylactic doses of anticoagulation pre-and postoperatively. -Has IVC filter but malpositioned. -Tolerating Lovenox injections well. No venous thromboembolic events since on this form of anticoagulation. -In the past, her fibrinogen antigen level and activity have been low but stable. She is not had previous predominant bleeding issue aside from the retroperitoneal hematoma in the setting of anticoagulation. Plan: -Continue Lovenox 60 mg once day. 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 3) PE. 4) Post surgical RP hematoma. HPI: The patient is a 81-year-old female who had a remote history of a right saphenous vein thrombophlebitis with clot closely approximating the right femoral vein. This developed following arthroscopic knee surgery in January 2001. The patient was anticoagulated with low molecular weight heparin, transitioned to Coumadin and continued anticoagulant therapy for approximately 4 months. She underwent left hip arthroplasty in 2002 without any venous thromboembolic complications. She did not previously have any bleeding diaphysis nor did she have any bleeding complication from anticoagulant therapy. The patient underwent elective bilateral inguinal hernia repair as well as a ventral hernia repair on July 20, 2009. She received a prophylactic dose of dalteparin 5000 units preoperatively. The morning following surgery, she received another prophylactic dose of 5000 units. The patient experienced abdominal discomfort and was noted to have a drop in hemoglobin. A CT scan of the abdomen and pelvis suggested a more distal right psoas retroperitoneal hematoma. The patient received a transfusion,was observed for another 24 hours. She did not require fresh, frozen plasma. After it was noted that she was stable, she was discharged. The patient re-presented to the emergency department approximately 2-1/2 weeks later with sudden onset chest pain and pressure when she was walking. A CT scan of the chest revealed right-sided pulmonary emboli. She underwent IVC filter placement and was discharged. Was seen by a clerical methods analyst at a tertiary center. 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 It is unclear that this represented a potential bleeding diathesisor a hypercoagulable condition. Diagnosed with SVT/DVT of the right leg 08/16/10--US showed evidence of superficial venous thrombosis of the saphaneofemoral junction extending into a varicosed branch of greater saphaneous vein. Was anticoagulated and maintained on warfarin. Underwent colonoscopy fall 2011--attributed to diverticular bleeding. Hgb was 15 in the ED. INR=1.7. Was hospitalized for diverticulitis August 2012. Had tarry stools. Underwent EGD 09/30/12--no mucosal abnormalities. Underwent right hip replacement in May 2019. No coagulation complications. Was diagnosed with cardiac amyloidosis, transthyretin/wild type. Started on tafamidis late December 2019. Presents for ongoing hematologic management. Interim history: Cholecystectomy went well. No bleeding issues. Hemorrhoid bleeding has been minimal. She is not wearing knee-high compression stockings consistently. Cardiovascular symptoms under good control with her present treatment for hereditary cardiac amyloidosis. Stable dyspnea with stairs. PMH, medications and allergies personally reviewed by me today. Any changes documented in appropriate section. PHYSICAL EXAM: Vitals: Blood pressure 125/74, pulse 73, temperature 36.4 C (97.6 F), temperature source Temporal, weight 61.7 kg (136 lb). Well-appearing and in no acute distress. EYES: Sclerae are anicteric bilaterally. LYMPHATIC: There is no palpable cervical or supraclavicular adenopathy. RESPIRATORY: Inspiratory breath sounds are of normal intensity in all hooker. CARDIOVASCULAR: Rhythm is regular. Varicose veins all appear stable. Nontender and not inflamed appearing. ABDOMEN: The abdomen is nondistended. Minimal ecchymoses bilaterally lower abdomen. Extremities: No swelling or edema. SKIN: No jaundice or rash. 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 No focal motor weakness. 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 -Remote history of postoperative bleeding complication. This was a retroperitoneal hematoma following inguinal hernia repair in the setting of prophylactic doses of anticoagulation pre-and postoperatively. -Has IVC filter but malpositioned. -Tolerating Lovenox injections well. No venous thromboembolic events since on this form of anticoagulation. -In the past, her fibrinogen antigen level and activity have been low but stable. She is not had previous predominant bleeding issue aside from the retroperitoneal hematoma in the setting of anticoagulation. Plan: -Continue Lovenox 60 mg once day. 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 -Encouraged her to use compression stockings as much as possible. -OV in 6 months. Portions of this documentation were copied and pasted from previous office visit notes in order to provide a cohesive continuity of the history. The note has been reviewed and edited and updated as necessary. I spent a total of 15 minutes on the date of the service which included preparing to see the patient, [id number] patient care, completing clinical documentation, obtaining and/or reviewing separately obtained history, performing a medically appropriate examination, counseling and educating the pat ient/family/caregiver, and communicating results to the patient/family/caregiver. Omer Narvaez DO [facility] NoteHNO ID: [id number] Author: Diane Alcala RN Service: ? Author Type: Registered Nurse Type: Progress Notes Filed: 07/31/2022 4:48 PM Note Text: CDM Telephonic Outreach Provider Action/FYI CDM: CHF, CKD Pt denies new or worsening symptoms, instructed to call PCP with any changes in symptoms, concerns or needs. Pt verbalized understanding, and noted appreciation for the call. Contacted for: Routine Telephonic Outreach Contact made with patient: Yes Patient identified by name and date of . Discussed care with patient Are you experiencing any new or worsening symptoms you need to talk about today? No Disease Specific Do you check your blood pressure at home? Yes, Enter readings: Not available Do you have new or worsening shortness of breath with activity? No Do you have new or worsening trouble breathing while lying flat? No Do you have new or worsening swelling of legs, feet or ankles? No Do you feel like you are dehydrated for any reason, including not being able to eat or drink normally, or having less urine/much darker urine than normal for you? No Do you check your daily weight at home? Yes, Have you noticed a sudden gain in weight greater than three pounds in a day or three pounds in a week? No Based on die engraver, the following disposition is advised: Routed to: No Action Needed YOUNG Education Provided this Outreach: No Diane Alcala RN July 31, 2022 4:46 [facility]05-01-2023 History of Present illness Narrative* Diane Alcala RN - 07/31/2022 4:44 PM EDT CDM Telephonic Outreach Provider Action/FYI CDM: CHF, CKD Pt denies new or worsening symptoms, instructed to call PCP with any changes in symptoms, concerns or needs. Pt verbalized understanding, and noted appreciation for the call. Contacted for: Routine Telephonic Outreach Contact made with patient: Yes Patient identified by name and date of . Discussed care with patient Are you experiencing any new or worsening symptoms you need to talk about today? No Disease Specific Do you check your blood pressure at home? Yes, Enter readings: Not available Do you have new or worsening shortness of breath with activity? No Do you have new or worsening trouble breathing while lying flat? No Do you have new or worsening swelling of legs, feet or ankles? No Do you feel like you are dehydrated for any reason, including not being able to eat or drink normally, or having less urine/much darker urine than normal for you? No Do you check your daily weight at home? Yes, Have you noticed a sudden gain in weight greater than three pounds in a day or three pounds in a week? No Based on die engraver, the following disposition is advised: Routed to: No Action Needed YOUNG Education Provided this Outreach: No Diane Alcala RN July 31, 2022 4:46 PM * Diane Alcala RN - 07/28/2022 11:16 AM EDT CDM Telephonic Outreach Provider Action/FYI CDM: CHF, CKD Called Pt left a message to verify symptom status and needs. Instructed to call PCP with any symptom or condition changes. Contacted for: Routine Telephonic Outreach Contact made with patient: No, left message. Diane Alcala RN July 28, 2022 11:17 AM documented in this encounterAk[facility]-28-[facility] NotePatient Outreach ([facility]) YRIS VILLAGOMEZ ([id number]) 1940 F Date Time Provider Department 07/28/22 DIANE ALCALA During your visit today, we recorded the following information about you: Diane Alcala RN 07/31/2022 4:48 PM Signed CDM Telephonic Outreach Provider Action/FYI CDM: CHF, CKD Called Pt left a message to verify symptom status and needs. Instructed to call PCP with any symptom or condition changes. Contacted for: Routine Telephonic Outreach Contact made with patient: No, left message. Diane Alcala RN July 28, 2022 11:17 AM Diane Alcala RN 07/31/2022 4:48 PM Signed CDM Telephonic Outreach Provider Action/FYI CDM: CHF, CKD Pt denies new or worsening symptoms, instructed to call PCP with any changes in symptoms, concerns or needs. Pt verbalized understanding, and noted appreciation for the call. Contacted for: Routine Telephonic Outreach Contact made with patient: Yes Patient identified by name and date of . Discussed care with patient Are you experiencing any new or worsening symptoms you need to talk about today? No Disease Specific Do you check your blood pressure at home? Yes, Enter readings: Not available Do you have new or worsening shortness of breath with activity? No Do you have new or worsening trouble breathing while lying flat? No Do you have new or worsening swelling of legs, feet or ankles? No Do you feel like you are dehydrated for any reason, including not being able to eat or drink normally, or having less urine/much darker urine than normal for you? No Do you check your daily weight at home? Yes, Have you noticed a sudden gain in weight greater than three pounds in a day or three pounds in a week? No Based on die engraver, the following disposition is advised: Routed to: No Action Needed YOUNG Education Provided this Outreach: No Diane Alcala RN July 31, 2022 4:46 PM Allergies As of Date: 07/28/2022 Noted Allergy Reaction IODINE 12/19/2004 4 - Hives Date Reviewed: 06/26/2022 Reviewed by: Luisa Medina MA - Fully Assessed Reason for Visit: Community Monitoring Outreach [Other] Prescriptions as of 07/31/2022 - levothyroxine (SYNTHROID) 88 mcg tablet Take 1 tablet by mouth once daily. - tiZANidine (ZANAFLEX) 4 mg tablet Take 1 tablet by mouth every 8 hours as needed (muscle spasms). - diphenhydrAMINE (BENADRYL) 50 mg capsule Take 1 capsule by mouth as directed for 1 dose. one (1) hour prior to exam. - rosuvastatin (CRESTOR) 20 mg tablet Take 1 tablet by mouth once daily. - metoprolol succinate ER (TOPROL XL) 25 mg 24 hr tablet Take 0.5 tablets by mouth once daily. - traMADol (ULTRAM) 50 mg tablet Take 1 tablet by mouth every 6 hours as needed for up to 99 days. - acetaminophen (TYLENOL EXTRA STRENGTH) 500 mg tablet Take 2 tablets by mouth every 6 hours as needed for pain. - ZINC ORAL Take by mouth once daily. - cholecalciferol, vitamin D3, (VITAMIN D3 ORAL) Take by mouth once daily. - torsemide (DEMADEX) 10 mg tablet Take 2 tablets by mouth once daily. - tafamidis (VYNDAMAX) 61 mg Take 1 capsule by mouth once daily. - enoxaparin (LOVENOX) 60 mg/0.6 mL syrg Inject 0.6 mL subcutaneously once daily. - vitamin A (AQUASOL A) 10,000 unit capsule Take 10,000 Units by mouth Every 3 Days. - aspirin, enteric coated (ASPIRIN, ENTERIC COATED) 81 mg EC tablet Take 1 tablet by mouth once daily. - polyethylene glycol 3350 (MIRALAX, GLYCOLAX) 17 gram/dose powder as needed. One capful with a full glass of water, 2-3 times a day Or as directed Facility-Administered Medications as of 07/31/2022 - perflutren lipid microspheres 1.3 mL in NaCl (PF) 0.9% 10 mL injection (DEFINITY) - sodium chloride 0.9 % (flush) 10 mL (BD POSIFLUSH) - perflutren lipid microspheres 1.3 mL in NaCl (PF) 0.9% 10 mL injection (DEFINITY) - sodium chloride 0.9 % (flush) 10 mL (BD POSIFLUSH) Problem List As Of Date 07/28/2022 Noted Resolved Mixed hyperlipidemia [E78.2] Essential hypertension [I10] Hypothyroidism [E03.9] 09/30/2018 INSOMNIA NOS [G47.00] 05/16/2005 Adjustment disorder with depressed mood [F43.21]05/16/2005 08/28/2013 Abdominal pain, unspecified site [R10.9] 08/28/2013 INGUINAL HERNIA, BILAT, RECURRENT W/O GANGRENE/*11/30/2006 08/28/2013 Blood in stool [K92.1] 03/11/2008 08/28/2013 Benign neoplasm of colon [D12.6] 03/12/2008 08/28/2013 Unspecified gastritis and gastroduodenitis with*03/12/2008 08/28/2013 DIVERTICULOSIS OF COLON W/O BLEED [K57.30] 03/12/2008 Umbilical hernia without mention of obstruction*06/21/2009 08/28/2013 Pulmonary embolism (HCC) [I26.99] 08/26/2009 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 Status post inguinal hernia repair [Z98.890, Z8*11/23/2009 08/28/2013 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 Author Type: Registered Nurse Type: Progress Notes Filed: 07/31/2022 4:48 PM Note Text: CDM Telephonic Outreach Provider Action/FYI CDM: CHF, CKD Called Pt left a message to verify symptom status and needs. Instructed to call PCP with any symptom or condition changes. Contacted for: Routine Telephonic Outreach Contact made with patient: No, left message. Diane Alcala RN July 28, 2022 11:17 [facility]04-05-2023 NoteHNO ID: [id number] Author: Diane Alcala RN Service: ? Author Type: Registered Nurse Type: Progress Notes Filed: 07/05/2022 2:48 PM Note Text: INSIGHT CDM TELEPHONIC OUTREACH Provider Action/FYI: CDM: CKD, CHF Pt reports chronic intermittent unchanged Sob with exertion, seen in Urgent Care 06/26/22 for right shoulder pain, treated with Prednisone and Zanaflex, improvement noted. Pt denies new or worsening symptoms, instructed to call PCP with any changes in condition. Pt verbalized understanding and appreciation for call. Contact made with patient: Yes Patient identified by name and . Discussed care with patient It?s nice talking to you again. As a reminder, this is our bi-weekly check-in where I will be asking you questions about your health. This will only take a few minutes of your time. Is this a good time? Yes Symptoms What Chronic Disease(s) does the patient have: CHF and CKD Do you check your blood pressures at home? Yes, Enter readings: Not taken today Do you have new or worse shortness of breath with activity? No Do you have new or worsening trouble breathing while lying flat? No Do you have new or worsening swelling of legs, feet or ankles? No Do you feel like you are dehydrated for any reason, including not being able to eat or drink normally, or having less urine/much darker urine than normal for you? No Do you check your daily weight at home? Yes, Have you noticed a sudden gain in weight greater than three pounds in a day or three pounds in a week? No Are you having any other symptoms that your PCP needs to know about? No Symptoms: Symptom Escalation YOUNG Education Ordered -: No The patient required an escalation for symptom(s)? No Medications Do you have any questions about taking your medication or which medications you should be on? No Do you need any medication refills at this time, including any of the medications you might take only when needed? No Social We would like to make sure you have what you need so that your basic needs are met- including your personal safety, food, housing, transportation and medications? Would you like to speak with a social work child study team director to help give you support for any of these needs? No It can be normal to feel anxious or down during a time like this. Would you like to talk to a mental health professional about how you have been feeling? No Closing Thank you for taking the time to talk with me today. We want to work with you to ensure that we are keeping your medical condition(s) well-controlled and to keep you healthy and out of the doctor's office or hospital. It?s also not too late for me to sign you up for automated weekly questionnaires through [employer]. This is an easy way for us to stay connected each week. Are you interested? No, I understand. We can always sign you up in the future if you change your mind. Just as a reminder, will continue to call you every other week to check in on your health. Our calls should take 10-15 minutes or less. Remember, if you have concerns in between our calls, please call your PCP's office right away. Thank you. Enter next patient outreach date for two weeks on the same day of the week as today in the Track Pt Outreach and End outreach. Diane Alcala RN July 05, 2022 2:31 [facility]04-05-2023 History of Present illness Narrative* Diane Alcala RN - 07/05/2022 2:31 PM EDT INSIGHT CDM TELEPHONIC OUTREACH Provider Action/FYI: CDM: CKD, CHF Pt reports chronic intermittent unchanged Sob with exertion, seen in Urgent Care 06/26/22 for right shoulder pain, treated with Prednisone and Zanaflex, improvement noted. Pt denies new or worsening symptoms, instructed to call PCP with any changes in condition. Pt verbalized understanding and appreciation for call. Contact made with patient: Yes Patient identified by name and . Discussed care with patient It s nice talking to you again. As a reminder, this is our bi-weekly check-in where I will be asking you questions about your health. This will only take a few minutes of your time. Is this a good time? Yes Symptoms What Chronic Disease(s) does the patient have: CHF and CKD Do you check your blood pressures at home? Yes, Enter readings: Not taken today Do you have new or worse shortness of breath with activity? No Do you have new or worsening trouble breathing while lying flat? No Do you have new or worsening swelling of legs, feet or ankles? No Do you feel like you are dehydrated for any reason, including not being able to eat or drink normally, or having less urine/much darker urine than normal for you? No Do you check your daily weight at home? Yes, Have you noticed a sudden gain in weight greater than three pounds in a day or three pounds in a week? No Are you having any other symptoms that your PCP needs to know about? No Symptoms: Symptom Escalation YOUNG Education Ordered -: No The patient required an escalation for symptom(s)? No Medications Do you have any questions about taking your medication or which medications you should be on? No Do you need any medication refills at this time, including any of the medications you might take only when needed? No Social We would like to make sure you have what you need so that your basic needs are met- including your personal safety, food, housing, transportation and medications? Would you like to speak with a social work child study team director to help give you support for any of these needs? No It can be normal to feel anxious or down during a time like this. Would you like to talk to a mental health professional about how you have been feeling? No Closing Thank you for taking the time to talk with me today. We want to work with you to ensure that we arekeeping your medical condition(s) well-controlled and to keep you healthy and out of the doctor's office or hospital. It s also not too late for me to sign you up for automated weekly questionnaires through [employer]. This is an easy way for us to stay connected each week. Are you interested? No, I understand. We can always sign you up in the future if you change your mind. Just as a reminder, will continue to call you every other week to check in on your health. Our calls should take 10-15 minutes or less. Remember, if you have concerns in between our calls, please call your PCP's office right away. Thank you. Enter next patient outreach date for two weeks on the same day of the week as today in the Track PtOutreach and End outreach. Diane Alcala RN July 05, 2022 2:31 PM [facility] NotePatient Outreach ([facility]) YRIS VILLAGOMEZ ([id number]) 1940 F Date Time Provider Department 07/05/22 DIANE ALCALA During your visit today, we recorded the following information about you: Diane Alcala RN 07/05/2022 2:48 PM Signed INSIGHT CDM TELEPHONIC OUTREACH Provider Action/FYI: CDM: CKD, CHF Pt reports chronic intermittent unchanged Sob with exertion, seen in Urgent Care 06/26/22 for right shoulder pain, treated with Prednisone and Zanaflex, improvement noted. Pt denies new or worsening symptoms, instructed to call PCP with any changes in condition. Pt verbalized understanding and appreciation for call. Contact made with patient: Yes Patient identified by name and . Discussed care with patient It?s nice talking to you again. As a reminder, this is our bi-weekly check-in where I will be asking you questions about your health. This will only take a few minutes of your time. Is this a good time? Yes Symptoms What Chronic Disease(s) does the patient have: CHF and CKD Do you check your blood pressures at home? Yes, Enter readings: Not taken today Do you have new or worse shortness of breath with activity? No Do you have new or worsening trouble breathing while lying flat? No Do you have new or worsening swelling of legs, feet or ankles? No Do you feel like you are dehydrated for any reason, including not being able to eat or drink normally, or having less urine/much darker urine than normal for you? No Do you check your daily weight at home? Yes, Have you noticed a sudden gain in weight greater than three pounds in a day or three pounds in a week? No Are you having any other symptoms that your PCP needs to know about? No Symptoms: Symptom Escalation YOUNG Education Ordered -: No The patient required an escalation for symptom(s)? No Medications Do you have any questions about taking your medication or which medications you should be on? No Do you need any medication refills at this time, including any of the medications you might take only when needed? No Social We would like to make sure you have what you need so that your basic needs are met- including your personal safety, food, housing, transportation and medications? Would you like to speak with a social work child study team director to help give you support for any of these needs? No It can be normal to feel anxious or down during a time like this. Would you like to talk to a mental health professional about how you have been feeling? No Closing Thank you for taking the time to talk with me today. We want to work with you to ensure that we are keeping your medical condition(s) well-controlled and to keep you healthy and out of the doctor's office or hospital. It?s also not too late for me to sign you up for automated weekly questionnaires through [employer]. This is an easy way for us to stay connected each week. Are you interested? No, I understand. We can always sign you up in the future if you change your mind. Just as a reminder, will continue to call you every other week to check in on your health. Our calls should take 10-15 minutes or less. Remember, if you have concerns in between our calls, please call your PCP's office right away. Thank you. Enter next patient outreach date for two weeks on the same day of the week as today in the Track Pt Outreach and End outreach. Diane Alcala RN July 05, 2022 2:31 PM Allergies As of Date: 07/05/2022 Noted Allergy Reaction IODINE 12/19/2004 4 - Hives Date Reviewed: 06/26/2022 Reviewed by: Luisa Medina MA - Fully Assessed Reason for Visit: Community Monitoring Outreach [Other] Prescriptions as of 07/05/2022 - levothyroxine (SYNTHROID) 88 mcg tablet Take 1 tablet by mouth once daily. - tiZANidine (ZANAFLEX) 4 mg tablet Take 1 tablet by mouth every 8 hours as needed (muscle spasms). - diphenhydrAMINE (BENADRYL) 50 mg capsule Take 1 capsule by mouth as directed for 1 dose. one (1) hour prior to exam. - rosuvastatin (CRESTOR) 20 mg tablet Take 1 tablet by mouth once daily. - metoprolol succinate ER (TOPROL XL) 25 mg 24 hr tablet Take 0.5 tablets by mouth once daily. - traMADol (ULTRAM) 50 mg tablet Take 1 tablet by mouth every 6 hours as needed for up to 99 days. - acetaminophen (TYLENOL EXTRA STRENGTH) 500 mg tablet Take 2 tablets by mouth every 6 hours as needed for pain. - ZINC ORAL Take by mouth once daily. - cholecalciferol, vitamin D3, (VITAMIN D3 ORAL) Take by mouth once daily. - torsemide (DEMADEX) 10 mg tablet Take 2 tablets by mouth once daily. - tafamidis (VYNDAMAX) 61 mg Take 1 capsule by mouth once daily. - enoxaparin (LOVENOX) 60 mg/0.6 mL syrg Inject 0.6 mL subcutaneously once daily. - vitamin A (AQUASOL A) 10,000 unit capsule Take 10,000 Units by mouth Every 3 Days. - aspirin, enteric coated (ASPIRIN, (more content not included)...[facility]03-27-[facility]23 NoteHNO ID: [id number] Author: JOSE Kirby Service: ? Author Type: Physician Associate Creative Director Type: Progress Notes Filed: 06/26/2022 5:54 PM Note Text: This note was created using [employer]ics[employer]. Subjective Yris Villagomez is a 81 year old female. HPI 81-year-old female presents for right shoulder pain. Patient states she has been having right shoulder pain on and off for several years. She has history of cervical spine surgery back in 2001. She saw her spine surgeon several years ago and was told that her right shoulder pain was likely due to her chronic neck pain. She is unable to have surgery due to heart problems. Patient denies any fall or injury. She states that her shoulder pain started flaring up over the past 2 days. Usually muscle relaxer and steroid helps her. Last time she was here, she was on tizanidine and prednisone which helped with the pain. She is unable to take NSAIDs because she is on Lovenox shots. She denies any chest pain or shortness of breath. No numbness or tingling in the arms. 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/12/2008 Chest pain Chronic kidney disease (CKD), stage III (moderate) (HCC) 07/27/2016 Coronary artery disease due to calcified coronary lesion 06/22/2021 Diverticulitis Diverticulosis of colon (without mention of hemorrhage) Diverticulosis of colon with hemorrhage DVT (deep venous thrombosis) ([facility]) After knee surgery Dysmetabolic syndrome X Hemorrhage of gastrointestinal tract, unspecified Hernia of other specified sites of abdominal cavity without mention of obstruction or gangrene 2006 Patient has 2 or 3 hernias at abdomen and groin Internal hemorrhoids without mention of complication Other and unspecified hyperlipidemia PE (pulmonary embolism) after hernia surgery Umbilical hernia 07/22/2009 Unspecified essential hypertension Unspecified gastritis and gastroduodenitis 03/12/2008 Unspecified hypothyroidism PAST SURGICAL HISTORY Procedure Laterality Date ARTHRP ACETBLR/PROX FEM PROSTC AGRFT/ALGRFT 2002 Hip replacement, total, left ARTHRP ACETBLR/PROX FEM PROSTC AGRFT/ALGRFT 2002 left hip COLONOSCOPY FLX DX W/COLLJ SPEC WHEN PFRMD 09/15/1998 Colonoscopy COLONOSCOPY FLX DX W/COLLJ SPEC WHEN PFRMD 08/07/2005 Colonoscopy COLONOSCOPY FLX DX W/COLLJ SPE[facility] COLONOSCOPY FLX DX W/COLLJ SPEC WHEN PFRMD 03/05/2014 Colonoscopy COLSC FLX W/REMOVAL LESION BY HOT BX FORCEPS 03/12/2008 EGD TRANSORAL BIOPSY SINGLE/MULTIPLE 03/12/2008 EGD TRANSORAL BIOPSY SINGLE/MULTIPLE 09/30/2012 ESOPHAGOGASTRODUODENOSCOPY TRANSORAL DIAGNOSTIC 06/10/2015 EGD HYSTERECTOMY, REVISE VAGINA; COLPECTOMY 1980 Hysterectomy with bladder repair still ovaries ARTEAGA W/O FACETEC FORAMOT/DSC 1/2 VRT SGM CRV 2001 Discectomy and fusion, cervical LAPAROSCOPIC CHOLECYSTECTOMY 03/29/2022 LAPS SURG RPR RECURRENT INGUINAL HERNIA 07/22/2009 LIGJ DIVJ AND/EXCJ VARICOSE VEIN CLUSTER 1 LEG 1985 Varicose Vein Surgery PAST SURGICAL HISTORY OF 2001 cervical spine repair PAST SURGICAL HISTORY OF 11/04/2014 cystocele REMOVAL GALLBLADDER 03/29/2022 RPR 1ST INGUN HRNA AGE 5 YRS/> REDUCIBLE 1980 Hernia repair, inguinal RPR 1ST INGUN HRNA AGE 5 YRS/> REDUCIBLE 1980 Hernia repair, inguinal, bilateral RPR UMBILICAL HRNA 5 YRS/> REDUCIBLE 07/22/2009 THYROIDECTOMY TOTAL/COMPLETE 1994 TONSILLECTOMY AND ADENOIDECTOMY HX 1968 TONSILLECTOMY PRIMARY/SECONDARY Tonsillectomy X-RAY PLACEMENT, VEIN FILTER 08/13/2009 ALLERGIES Iodine MEDICATIONS predniSONE (DELTASONE) 20 mg tabletTake 2 tablets by mouth once daily for 5 days. Take daily with food.Disp: 10 tabletRfl: 0 tiZANidine (ZANAFLEX) 4 mg tabletTake 1 tablet by mouth every 8 hours as needed (muscle spasms).Disp: 10 tabletRfl: 0 diphenhydrAMINE (BENADRYL) 50 mg capsuleTake 1 capsule by mouth as directed for 1 dose. one (1) hour prior to exam.Disp: 1 capsuleRfl: 0 rosuvastatin (CRESTOR) 20 mg tabletTake 1 tablet by mouth once daily.Disp: 90 tabletRfl: 1 metoprolol succinate ER (TOPROL XL) 25 mg 24 hr tabletTake 0.5 tablets by mouth once daily.Disp: 45 tabletRfl: 3 traMADol (ULTRAM) 50 mg tabletTake 1 tablet by mouth every 6 hours as needed for up to 99 days.Disp: 28 tabletRfl: 0 acetaminophen (TYLENOL EXTRA STRENGTH) 500 mg tabletTake 2 tablets by mouth every 6 hours as needed for pain.Disp: Rfl: ZINC ORALTake by mouth once daily.Disp: Rfl: cholecalciferol, vitamin D3, (VITAMIN D3 ORAL)Take by mouth once daily.Disp: Rfl: torsemide (DEMADEX) 10 mg tabletTake 2 tablets by mouth once daily.Disp: 180 tabletRfl: 3 tafamidis (VYNDAMAX) 61 mgTake 1 capsule by mouth once daily.Disp: 30 capsuleRfl: 11 enoxaparin (LOVENOX) 60 mg/0.6 mL syrgInject 0 (more content not included)... [facility] History of Present illness Narrative* JOSE Kirby - 06/26/2022 5:50 PM EDT Images from the original note were not included. This note was created using Sonics[employer]. Subjective Yris Villagomez is a 81 year old female. HPI 81-year-old female presents for right shoulder pain. Patient states she has been having right shoulder pain on and off for several years. She has history of cervical spine surgery back in 2001. She saw her spine surgeon several years ago and was told that her right shoulder pain was likely due to her chronic neck pain. She is unable to have surgery due to heart problems. Patient denies any fall or injury. She states that her shoulder pain started flaring up over the past 2 days. Usually muscle relaxer and steroid helps her. Last time she was here, she was on tizanidine and prednisone which helped with the pain. She is unable to take NSAIDs because she is on Lovenox shots. She denies anychest pain or shortness of breath. No numbness or tingling in the arms. 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/12/2008 Chest pain Chronic kidney disease (CKD), stage III (moderate) (HCC) 07/27/2016 Coronary artery disease due to calcified coronary lesion 06/22/2021 Diverticulitis Diverticulosis of colon (without mention of hemorrhage) Diverticulosis of colon with hemorrhage DVT (deep venous thrombosis) (HCC) After knee surgery Dysmetabolic syndrome X Hemorrhage of gastrointestinal tract, unspecified Hernia of other specified sites of abdominal cavity without mention of obstruction or gangrene 2006 Patient has 2 or 3 hernias at abdomen and groin Internal hemorrhoids without mention of complication Other and unspecified hyperlipidemia PE (pulmonary embolism) after hernia surgery Umbilical hernia 07/22/2009 Unspecified essential hypertension Unspecified gastritis and gastroduodenitis 03/12/2008 Unspecified hypothyroidism PAST SURGICAL HISTORY Procedure Laterality Date ARTHRP ACETBLR/PROX FEM PROSTC AGRFT/ALGRFT 2002 Hip replacement, total, left ARTHRP ACETBLR/PROX FEM PROSTC AGRFT/ALGRFT 2002 left hip COLONOSCOPY FLX DX W/COLLJ SPEC WHEN PFRMD 09/15/1998 Colonoscopy COLONOSCOPY FLX DX W/COLLJ SPEC WHEN PFRMD 08/07/2005 Colonoscopy COLONOSCOPY FLX DX W/COLLJ SPEC [facility] COLONOSCOPY FLX DX W/COLLJ SPEC WHEN PFRMD 03/05/2014 Colonoscopy COLSC FLX W/REMOVAL LESION BY HOT BX FORCEPS 03/12/2008 EGD TRANSORAL BIOPSY SINGLE/MULTIPLE 03/12/2008 EGD TRANSORAL BIOPSY SINGLE/MULTIPLE 09/30/2012 ESOPHAGOGASTRODUODENOSCOPY TRANSORAL DIAGNOSTIC 06/10/2015 EGD HYSTERECTOMY, REVISE VAGINA; COLPECTOMY 1981 Hysterectomy with bladder repair still ovaries ARTEAGA W/O FACETEC FORAMOT/DSC 1/2 VRT SGM CRV 2001 Discectomy and fusion, cervical LAPAROSCOPIC CHOLECYSTECTOMY 03/29/2022 LAPS SURG RPR RECURRENT INGUINAL HERNIA 07/22/2009 LIGJ DIVJ &/EXCJ VARICOSE VEIN CLUSTER 1 LEG 1985 Varicose Vein Surgery PAST SURGICAL HISTORY OF 2001 cervical spine repair PAST SURGICAL HISTORY OF 11/04/2014 cystocele REMOVAL GALLBLADDER 03/29/2022 RPR 1ST INGUN HRNA AGE 5 YRS/> REDUCIBLE 1980 Hernia repair, inguinal RPR 1ST INGUN HRNA AGE 5 YRS/> REDUCIBLE 1980 Hernia repair, inguinal, bilateral RPR UMBILICAL HRNA 5 YRS/> REDUCIBLE 07/22/2009 THYROIDECTOMY TOTAL/COMPLETE 1994 TONSILLECTOMY AND ADENOIDECTOMY HX 1967 TONSILLECTOMY PRIMARY/SECONDARY <AGE 12 Tonsillectomy X-RAY PLACEMENT, VEIN FILTER 08/13/2009 ALLERGIES Iodine MEDICATIONS predniSONE (DELTASONE) 20 mg tablet^Take 2 tablets by mouth once daily for 5 days. Take daily with food.^Disp: 10 tablet^Rfl: 0 tiZANidine (ZANAFLEX) 4 mg tablet^Take 1 tablet by mouth every 8 hours as needed (muscle spasms).^Disp: 10 tablet^Rfl: 0 diphenhydrAMINE (BENADRYL) 50 mg capsule^Take 1 capsule by mouth as directed for 1 dose. one (1) hour prior to exam.^Disp: 1 capsule^Rfl: 0 rosuvastatin (CRESTOR) 20 mg tablet^Take 1 tablet by mouth once daily.^Disp: 90 tablet^Rfl: 1 metoprolol succinate ER (TOPROL XL) 25 mg 24 hr tablet^Take 0.5 tablets by mouth once daily.^Disp: 45 tablet^Rfl: 3 traMADol (ULTRAM) 50 mg tablet^Take 1 tablet by mouth every 6 hours as needed for up to 99 days.^Disp: 28 tablet^Rfl: 0 acetaminophen (TYLENOL EXTRA STRENGTH) 500 mg tablet^Take 2 tablets by mouth every 6 hours as needed for pain.^Disp: ^Rfl: ZINC ORAL^Take by mouth once daily.^Disp: ^Rfl: cholecalciferol, vitamin D3, (VITAMIN D3 ORAL)^Take by mouth once daily.^Disp: ^Rfl: torsemide (DEMADEX) 10 mg tablet^Take 2 tablets by mouth once daily.^Disp: 180 tablet^Rfl: 3 tafamidis (VYNDAMAX) 61 mg^Take 1 capsule by mouth once daily.^Disp: 30 capsule^Rfl: 11 enoxaparin (LOVENOX) 60 mg/0.6 mL syrg^Inject 0.6 mL subcutaneously once daily.^Disp: 90 Each^Rfl: 3 levothyroxine (SYNTHROID) 88 mcg tablet^Take 1 tablet by mouth once daily.^Disp: 90 tablet^Rfl: 3 vitamin A (AQUASOL A) 10,000 unit capsule^Take 10,000 Units by mouth Every 3 Days.^Disp: ^Rfl: aspirin, enteric coated (ASPIRIN, ENTERIC COATED) 81 mg EC tablet^Take 1 tablet by mouth once daily.^Disp: ^Rfl: polyethylene glycol 3350 (MIRALAX, GLYCOLAX) 17 gram/dose powder^as needed. One capful with a full glass of water, 2-3 times a day Or as directed ^Disp: ^Rfl: FAMILY HISTORY Problem Relation Age of Onset Coronary Artery Disease Mother 83, CVA Colon Cancer Mother Coronary Artery Disease Father [place] 45 Cancer Brother multiple myeloma None Daughter None Daughter other (heart attack) Son other (fibramyalgia) Son other (blood clots in lungs) Son Social History Tobacco Use Smoking status: Never Smokeless tobacco: Never Vaping Use Vaping Use: Never used Substance Use Topics Alcohol use: No Drug use: No Review of Systems Constitutional: Negative for chills and fever. HENT: Negative for congestion, ear pain and sore throat. Respiratory: Negative for cough and shortness of breath. Cardiovascular: Negative for chest pain. Gastrointestinal: Negative for diarrhea and vomiting. Musculoskeletal: Positive for arthralgias (Right shoulder). Neurological: Negative for dizziness, numbness and headaches. Objective BP 124/72 Pulse 70 Temp 36.6 C (97.8 F) Resp 18 Wt 62.8 kg (138 lb 6.4 oz) SpO2 98% BMI 23.03 kg/m Physical Exam Vitals and nursing note reviewed. Constitutional: General: She is not in acute distress. Appearance: Normal appearance. She is not toxic-appearing. Cardiovascular: Rate and Rhythm: Normal rate and regular rhythm. Pulmonary: Effort: Pulmonary effort is normal. Breath sounds: Normal breath sounds. Musculoskeletal: Right shoulder: Tenderness present. No swelling or bony tenderness. Normal strength. Normal pulse. Arms: Comments: Tenderness over right trapezius muscle and right-sided cervical paraspinal muscles. No midline tenderness. Normal ROM of the shoulder. No bony tenderness. No swelling. No deformity Skin: General: Skin is warm and dry. Neurological: Mental Status: She is alert. Assessment and Plan ASSESSMENT/PLAN: 1. Acute pain of right shoulder - ICD9: 719.41, ICD10: M25.511 -Patient has chronic right shoulder issues due to prior cervical spine surgery. This pain started 2days ago. No fall or injury. I do not believe imaging warranted at this time. -Rx for prednisone -Rx for tizanidine-has tolerated this in the past. Advise no driving while taking this medication. May cause drowsiness Diagnosis and treatment plan were discussed and questions were answered to the patient's satisfaction. Pt acknowledged understanding of concepts and follow up plan. Specific signs and symptoms that would indicate the need for higher level of care were discussed in detail warranting prompt ER evaluation. JOSE Kirby [facility] NotePatient Outreach ([facility]) YRIS VILLAGOMEZ ([id number]) 1940 F Date Time Provider Department 06/21/22 DIANE ALCALA During your visit today, we recorded the following information about you: Diane Alcala RN 07/05/2022 2:48 PM Addendum INSIGHT CDM TELEPHONIC OUTREACH Provider Action/FYI: 06/13/22 [facility] Main Cardiac Cath, Hx: Cardiac Amyloidosis Call deferred Diane Alcala RN June 21, 2022 10:12 AM Allergies As of Date: 06/21/2022 Noted Allergy Reaction IODINE 12/19/2004 4 - Hives Date Reviewed: 06/13/2022 Reviewed by: Светлана Willson RN - Fully Assessed Reason for Visit: Community Monitoring Outreach [Other] Prescriptions as of 07/05/2022 - levothyroxine (SYNTHROID) 88 mcg tablet Take 1 tablet by mouth once daily. - tiZANidine (ZANAFLEX) 4 mg tablet Take 1 tablet by mouth every 8 hours as needed (muscle spasms). - diphenhydrAMINE (BENADRYL) 50 mg capsule Take 1 capsule by mouth as directed for 1 dose. one (1) hour prior to exam. - rosuvastatin (CRESTOR) 20 mg tablet Take 1 tablet by mouth once daily. - metoprolol succinate ER (TOPROL XL) 25 mg 24 hr tablet Take 0.5 tablets by mouth once daily. - traMADol (ULTRAM) 50 mg tablet Take 1 tablet by mouth every 6 hours as needed for up to 99 days. - acetaminophen (TYLENOL EXTRA STRENGTH) 500 mg tablet Take 2 tablets by mouth every 6 hours as needed for pain. - ZINC ORAL Take by mouth once daily. - cholecalciferol, vitamin D3, (VITAMIN D3 ORAL) Take by mouth once daily. - torsemide (DEMADEX) 10 mg tablet Take 2 tablets by mouth once daily. - tafamidis (VYNDAMAX) 61 mg Take 1 capsule by mouth once daily. - enoxaparin (LOVENOX) 60 mg/0.6 mL syrg Inject 0.6 mL subcutaneously once daily. - vitamin A (AQUASOL A) 10,000 unit capsule Take 10,000 Units by mouth Every 3 Days. - aspirin, enteric coated (ASPIRIN, ENTERIC COATED) 81 mg EC tablet Take 1 tablet by mouth once daily. - polyethylene glycol 3350 (MIRALAX, GLYCOLAX) 17 gram/dose powder as needed. One capful with a full glass of water, 2-3 times a day Or as directed Facility-Administered Medications as of 07/05/2022 - perflutren lipid microspheres 1.3 mL in NaCl (PF) 0.9% 10 mL injection (DEFINITY) - sodium chloride 0.9 % (flush) 10 mL (BD POSIFLUSH) - perflutren lipid microspheres 1.3 mL in NaCl (PF) 0.9% 10 mL injection (DEFINITY) - sodium chloride 0.9 % (flush) 10 mL (BD POSIFLUSH) Problem List As Of Date 06/21/2022 Noted Resolved Mixed hyperlipidemia [E78.2] Essential hypertension [I10] Hypothyroidism [E03.9] 09/30/2018 INSOMNIA NOS [G47.00] 05/16/2005 Adjustment disorder with depressed mood [F43.21]05/16/2005 08/28/2013 Abdominal pain, unspecified site [R10.9] 08/28/2013 INGUINAL HERNIA, BILAT, RECURRENT W/O GANGRENE/*11/30/2006 08/28/2013 Blood in stool [K92.1] 03/11/2008 08/28/2013 Benign neoplasm of colon [D12.6] 03/12/2008 08/28/2013 Unspecified gastritis and gastroduodenitis with*03/12/2008 08/28/2013 DIVERTICULOSIS OF COLON W/O BLEED [K57.30] 03/12/2008 Umbilical hernia without mention of obstruction*06/21/2009 08/28/2013 Pulmonary embolism (HCC) [I26.99] 08/26/2009 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 Status post inguinal hernia repair [Z98.890, Z8*11/23/2009 08/28/2013 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] 12/02/2009 Ac DVT/embl low ext NOS [I82.409] 08/23/2010 11/19/2019 DVT (deep venous thrombosis) (HCC) [I82.409] 10/17/2010 09/30/2018 Groin pain [R10.30] 04/23/2013 08/28/2013 Other symptoms involving digestive system(787.9*03/05/2014 03/05/2014 Abdominal pain, right lower quadrant [R10.31] 03/05/2014 03/05/2014 Chronic abdominal pain [R10.9, G89.29] 05/29/2014 Family history of ischemic heart disease [Z82.4*10/14/2014 11/19/2019 Mixed incontinence [N39.46] 10/27/2014 DVT prophylaxis [Z79.899] 11/05/2014 02/21/2022 History of DVT of lower extremity [Z86.718] 11/05/2014 History of pulmonary embolism [Z86.711] 11/05/2014 S/P IVC filter [Z95.828] 11/06/2014 History of pubovaginal sling [Z96.0] 11/06/2014 Acquired hypothyroidism [E03.9] 02/19/2015 Epigastric pain [R10.13] 06/10/2015 06/10/2015 IBS (irritable bowel syndrome) [K58.9] 01/27/2016 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*02/07/2016 Chronic anticoagulation [Z79.01] 04/17/2016 Chronic kidney disease (CKD), stage III (modera*07/27/2016 Gastroesophageal reflux disease [K21.9] 09/11/2017 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 Author Type: Registered Nurse Type: Progress Notes Filed: 07/05/2022 2:48 PM Note Text: OSCAR RODRIGUEZ TELEPHONIC OUTREACH Provider Action/FYI: 06/13/22 [facility] Cardiac Cath, Hx: Cardiac Amyloidosis Call deferred Diane Alcala RN June 21, 2022 10:12 [facility]03-22-2023 History of Present illness Narrative* Diane Alcala RN - 06/21/2022 10:12 AM EDT OSCAR CDCourtney TELEPHONIC OUTREACH Provider Action/FYI: 06/13/22 [facility] Dx Cardiac Amyloidosis Call deferred Diane Alcala RN June 21, 2022 10:12 AM documented in this encounter[facility] Miscellaneous Notes* Telephone Encounter - Rizwana Black RN - 06/12/2022 2:08 PM EDT CARDIOVASCULAR LAB INSTRUCTIONS: Readiness to Learn: Cognitive Ability: Alert and oriented Motivation To Learn: Interested Family/Significant Other Support: Unable to assess - Family not present Instruction Provided To: Patient Patient Learns Best By: Individual Instruction Factors Affecting Learning: None Physical Limitations Affecting Learning: None Learning Response: Procedure: Diagnostic Cath with Intervention Pre procedure education topics: Arrival time/NPO Status/Medications/Travel Instructions/Restrictions- patient aware to have superintendent drivers upon discharge Patient/Family Response Evaluation: Verbalizes understanding Follow Up Plan and Medication: As directed by physician Instruction/Supplemental Material Given: Cardiac catheterization instructions, procedure information, hospital information, hotel information. Instructed By Rizwana Black, RN, RN. In Department of CARDIOLOGY. documented in this encounterAkron [facility]03-[facility]-2023 Miscellaneous Notes* Telephone Encounter - Lorena Ferreira - 06/12/2022 12:36 PM EDT Called [employer] Process [employer] [facility] to verify orders and had to leave a message. I am going to follow up today and makesure pt is aware of instructions for Cath tomorrow. * Telephone Encounter - Vanna Alcaraz Adm - 06/12/2022 8:27 AM EDT Call received from [facility], [facility] [employer] [facility] Main, pt has allergie to Iodine and no Dye Prep has been ordered. Pt is scheduled for procedure w/ Dr. Reid tomorrow 06/13. Can you please drop orders needed and informthe Wet Process Head Miller when done Thank you Vanna documented in this encounterAkron [facility]03-10-[facility]23 Miscellaneous Notes* Telephone Encounter - Lisa Garcia LPN - 06/09/2022 9:50 AM EST Patient notified. Lisa Garcia LPN * Telephone Encounter - Omer Narvaez DO - 06/09/2022 9:39 AM EST Yes. Omer Narvaez DO * Telephone Encounter - Etta Yinchaya Pss - 06/09/2022 8:53 AM EST Patient states she had an appt with Dr. Jean-Baptiste ([facility]) yesterday and he wants to prescribe a vitamin - Macuhalth. Patient asking if okay to take. documented in this encounterAkron [facility]03-[facility]-2023 NoteHNO ID: [id number] Author: Gab Pisano MD Service: ? Author Type: Physician Type: Progress Notes Filed: 06/02/2022 11:20 AM Note Text: Reason for Visit Patient presents with: F/U HTN 3 Month Yris Villagomez is a 81 year old female who presents here today for Above Complaints.. Health Maintenance SHINGRIX VACCINE(3 of 3) COVID-19 VACCINE(4 - Booster for Moderna series) DEPRESSION ASSESSMENT HPI Patient had a fall recently, it was a rainy day, and patient stepped off the curb, she was very criss and she did not break anything Was on way to muslim, trying to open her umbrella and it was right in front on her face and she went down really fast. Rolled on the steps but did not have any major damage. It was very embarrassing that this happened to her. Had gall bladder surgery at [facility] , there were no issues following that. It was mostly ok. 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 Hypothyroidism. She is doing well on her current dose of Synthroid. Denies fatigue, cold intolerance and swelling in feet. TSH recently checked and normal. She is very active in keeping her home, she is not doing any yoga and pilates too. She has band that she does once or twice a day. No problem-specific Assessment AND Plan notes found for this encounter. 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/12/2008 Chest pain Chronic kidney disease (CKD), stage III (moderate) (HCC) 07/27/2016 Coronary artery disease due to calcified coronary lesion 06/22/2021 Diverticulitis Diverticulosis of colon (without mention of hemorrhage) Diverticulosis of colon with hemorrhage DVT (deep venous thrombosis) (HCC) After knee surgery Dysmetabolic syndrome X Hemorrhage of gastrointestinal tract, unspecified Hernia of other specified sites of abdominal cavity without mention of obstruction or gangrene 2006 Patient has 2 or 3 hernias at abdomen and groin Internal hemorrhoids without mention of complication Other and unspecified hyperlipidemia PE (pulmonary embolism) after hernia surgery Umbilical hernia 07/22/2009 Unspecified essential hypertension Unspecified gastritis and gastroduodenitis 03/12/2008 Unspecified hypothyroidism PAST SURGICAL HISTORY Procedure Laterality Date ARTHRP ACETBLR/PROX FEM PROSTC AGRFT/ALGRFT 2002 Hip replacement, total, left ARTHRP ACETBLR/PROX FEM PROSTC AGRFT/ALGRFT 2002 left hip COLONOSCOPY FLX DX W/COLLJ SPEC WHEN PFRMD 09/15/1998 Colonoscopy COLONOSCOPY FLX DX W/COLLJ SPEC WHEN PFRMD 08/07/2005 Colonoscopy COLONOSCOPY FLX DX W/COLLJ SPEC [facility] COLONOSCOPY FLX DX W/COLLJ SPEC WHEN PFRMD 03/05/2014 Colonoscopy COLSC FLX W/REMOVAL LESION BY HOT BX FORCEPS 03/12/2008 EGD TRANSORAL BIOPSY SINGLE/MULTIPLE 03/12/2008 EGD TRANSORAL BIOPSY SINGLE/MULTIPLE 09/30/2012 ESOPHAGOGASTRODUODENOSCOPY TRANSORAL DIAGNOSTIC 06/10/2015 EGD HYSTERECTOMY, REVISE VAGINA; COLPECTOMY 1980 Hysterectomy with bladder repair still ovaries ARTEAGA W/O FACETEC FORAMOT/DSC 1/2 VRT SGM CRV 2001 Discectomy and fusion, cervical LAPAROSCOPIC CHOLECYSTECTOMY 03/29/2022 LAPS SURG RPR RECURRENT INGUINAL HERNIA 07/22/2009 LIGJ DIVJ AND/EXCJ VARICOSE VEIN CLUSTER 1 LEG 1985 Varicose Vein Surgery PAST SURGICAL HISTORY OF 2001 cervical spine repair PAST SURGICAL HISTORY OF 11/04/2014 cystocele REMOVAL GALLBLADDER 03/29/2022 RPR 1ST INGUN HRNA AGE 5 YRS/> REDUCIBLE 1980 Hernia repair, inguinal RPR 1ST INGUN HRNA AGE 5 YRS/> REDUCIBLE 1980 Hernia repair, inguinal, bilateral RPR UMBILICAL HRNA 5 YRS/> REDUCIBLE 07/22/2009 THYROIDECTOMY TOTAL/COMPLETE 1994 TONSILLECTOMY AND ADENOIDECTOMY HX 1967 TONSILLECTOMY PRIMARY/SECONDARY Tonsillectomy X-RAY PLACEMENT, VEIN FILTER 08/13/2009 FAMILY HISTORY Problem Relation Age of Onset Coronary Artery Disease Mother 83, CVA Colon Cancer Mother Coronary Artery Disease Father [place] 45 Cancer Brother multiple myeloma None Daughter None Daughter other (heart attack) Son other (fibramyalgia) Son other (blood clots in lungs) Son Social History Tobacco Use Smoking status: Never Smokeless tobacco: Never Vaping Use Vaping Use: Never used Substance Use Topics Alcohol use: No Drug use: No Past medical history, appointments, medications, allergies reviewed. Pertinent Lab/Diagnostic Studies are reviewed and discussed today Current Outpatient Medications: rosuvastatin (CRESTOR) 20 mg tablet metoprolol succinate ER (TOPROL XL) 25 mg 24 hr tablet traMADol (ULTRAM) 50 mg tablet acetaminophen (TYLENOL EXTRA STRENGTH) 500 mg tablet ZINC ORAL cholecalciferol, vitamin D3, (VITAMIN D3 ORAL) torsemide (DEMADEX) 10 mg tablet tafamidis (VYNDAMAX (more content not included)...[facility] 06-02-2022 History of Present illness Narrative* Gab Pisano MD - 06/02/2022 9:58 AM EST Reason for Visit Patient presents with: F/U HTN 3 Month Yris Villagomez is a 81 year old female who presents here today for Above Complaints.. Health Maintenance SHINGRIX VACCINE(3 of 3) COVID-19 VACCINE(4 - Booster for Moderna series) DEPRESSION ASSESSMENT HPI Patient had a fall recently, it was a rainy day, and patient stepped off the curb, she was very criss and she did not break anything Was on way to muslim, trying to open her umbrella and it was right in front on her face and she went down really fast. Rolled on the steps but did not have any major damage. It was very embarrassing that this happened to her. Had gall bladder surgery at [facility] , there were no issues following that. It was mostly ok. Patient is going to have a heart cath, had a 70 percent blockage in her main artery, she may need astent. Hypothyroidism. She is doing well on her current dose of Synthroid. Denies fatigue, cold intolerance and swelling in feet. TSH recently checked and normal. She is very active in keeping her home, she is not doing any yoga and pilates too. She has band that she does once or twice a day. No problem-specific Assessment & Plan notes found for this encounter. 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/12/2008 Chest pain Chronic kidney disease (CKD), stage III (moderate) (HCC) 07/27/2016 Coronary artery disease due to calcified coronary lesion 06/22/2021 Diverticulitis Diverticulosis of colon (without mention of hemorrhage) Diverticulosis of colon with hemorrhage DVT (deep venous thrombosis) (HCC) After knee surgery Dysmetabolic syndrome X Hemorrhage of gastrointestinal tract, unspecified Hernia of other specified sites of abdominal cavity without mention of obstruction or gangrene 2006 Patient has 2 or 3 hernias at abdomen and groin Internal hemorrhoids without mention of complication Other and unspecified hyperlipidemia PE (pulmonary embolism) after hernia surgery Umbilical hernia 07/22/2009 Unspecified essential hypertension Unspecified gastritis and gastroduodenitis 03/12/2008 Unspecified hypothyroidism PAST SURGICAL HISTORY Procedure Laterality Date ARTHRP ACETBLR/PROX FEM PROSTC AGRFT/ALGRFT 2002 Hip replacement, total, left ARTHRP ACETBLR/PROX FEM PROSTC AGRFT/ALGRFT 2002 left hip COLONOSCOPY FLX DX W/COLLJ SPEC WHEN PFRMD 09/15/1998 Colonoscopy COLONOSCOPY FLX DX W/COLLJ SPEC WHEN PFRMD 08/07/2005 Colonoscopy COLONOSCOPY FLX DX W/COLLJ SPEC WHEN [facility]FRMD [facility] COLONOSCOPY FLX DX W/COLLJ SPEC WHEN PFRMD 03/05/2014 Colonoscopy COLSC FLX W/REMOVAL LESION BY HOT BX FORCEPS 03/12/2008 EGD TRANSORAL BIOPSY SINGLE/MULTIPLE 03/12/2008 EGD TRANSORAL BIOPSY SINGLE/MULTIPLE 09/30/2012 ESOPHAGOGASTRODUODENOSCOPY TRANSORAL DIAGNOSTIC 06/10/2015 EGD HYSTERECTOMY, REVISE VAGINA; COLPECTOMY 1980 Hysterectomy with bladder repair still ovaries ARTEAGA W/O FACETEC FORAMOT/DSC 1/2 VRT SGM CRV 2001 Discectomy and fusion, cervical LAPAROSCOPIC CHOLECYSTECTOMY 03/29/2022 LAPS SURG RPR RECURRENT INGUINAL HERNIA 07/22/2009 LIGJ DIVJ &/EXCJ VARICOSE VEIN CLUSTER 1 LEG 1985 Varicose Vein Surgery PAST SURGICAL HISTORY OF 2001 cervical spine repair PAST SURGICAL HISTORY OF 11/04/2014 cystocele REMOVAL GALLBLADDER 03/29/2022 RPR 1ST INGUN HRNA AGE 5 YRS/> REDUCIBLE 1980 Hernia repair, inguinal RPR 1ST INGUN HRNA AGE 5 YRS/> REDUCIBLE 1980 Hernia repair, inguinal, bilateral RPR UMBILICAL HRNA 5 YRS/> REDUCIBLE 07/22/2009 THYROIDECTOMY TOTAL/COMPLETE 1994 TONSILLECTOMY AND ADENOIDECTOMY HX 1968 TONSILLECTOMY PRIMARY/SECONDARY <AGE 12 Tonsillectomy X-RAY PLACEMENT, VEIN FILTER 08/13/2009 FAMILY HISTORY Problem Relation Age of Onset Coronary Artery Disease Mother 83, CVA Colon Cancer Mother Coronary Artery Disease Father [place] 45 Cancer Brother multiple myeloma None Daughter None Daughter other (heart attack) Son other (fibramyalgia) Son other (blood clots in lungs) Son Social History Tobacco Use Smoking status: Never Smokeless tobacco: Never Vaping Use Vaping Use: Never used Substance Use Topics Alcohol use: No Drug use: No Past medical history, appointments, medications, allergies reviewed. Pertinent Lab/Diagnostic Studies are reviewed and discussed today Current Outpatient Medications: rosuvastatin (CRESTOR) 20 mg tablet metoprolol succinate ER (TOPROL XL) 25 mg 24 hr tablet traMADol (ULTRAM) 50 mg tablet acetaminophen (TYLENOL EXTRA STRENGTH) 500 mg tablet ZINC ORAL cholecalciferol, vitamin D3, (VITAMIN D3 ORAL) torsemide (DEMADEX) 10 mg tablet tafamidis (VYNDAMAX) 61 mg enoxaparin (LOVENOX) 60 mg/0.6 mL syrg levothyroxine (SYNTHROID) 88 mcg tablet vitamin A (AQUASOL A) 10,000 unit capsule aspirin, enteric coated (ASPIRIN, ENTERIC COATED) 81 mg EC tablet polyethylene glycol 3350 (MIRALAX, GLYCOLAX) 17 gram/dose powder Current Facility-Administered Medications: perflutren lipid microspheres 1.3 mL in NaCl (PF) 0.9% 10 mL injection (DEFINITY) sodium chloride 0.9 % (flush) 10 mL (BD POSIFLUSH) perflutren lipid microspheres 1.3 mL in NaCl (PF) 0.9% 10 mL injection (DEFINITY) sodium chloride 0.9 % (flush) 10 mL (BD POSIFLUSH) Review of Systems CONSTITUTIONAL: No fevers, chills night sweats, unintended weight loss CARDIOVASCULAR: No chest pain, dyspnea, palpitations, orthopnea, PND, ankle edema. PULM: No dyspnea, unexplained cough. GI: No dysphagia/odynophagia, problematic reflux, constipation, diarrhea, changes in stool habits, hematochezia, melena. : No new urinary complaints, including dysuria, gross hematuria or pyuria. NEURO: No new balance problems, peripheral weakness/paresthesias or numbness of concern. Physical Exam BP 118/68 (BP Site: Left Arm, BP Position: Sitting, BP Cuff Size: Large Adult) Pulse 65 Temp 36.3 C (97.4 F) Resp 12 Ht 165.1 cm (5' 5 ) Wt 62.1 kg (137 lb) SpO2 99% BMI 22.80 kg/m General appearance: Well appearing, alert, in no acute distress, well nourished. Skin: Skin color, texture, turgor normal, no suspicious rashes or lesions Head: Normocephalic, no masses, lesions, tenderness or abnormalities Eyes: Anicteric sclera. Pupils are equally round and reactive to light. Extraocular movements are intact. Lungs: Lungs clear to auscultation. No wheezing, rhonchi, rales Heart: RRR without murmur, gallop, or rubs. Extremities: No deformities, edema, skin discoloration, clubbing or cyanosis. Good capillary refill. ASSESSMENT/PLAN: 1. 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ein of right lower extremity (HCC) - ICD9: 453.51, ICD10: I82.511 (primary diagnosis) To cont the lovenox 2. Hypertensive kidney disease with stage 3a chronic kidney disease (HCC) - ICD9: 403.90, 585.3, ICD10: I12.9, N18.31 - good control - Recommended regular aerobic exercise. - Recommend home blood pressure monitoring, to bring results in on next visit - Goal of BP <130/80 - eGFR: Stable - Counseled on avoiding regular use of NSAIDs, adequate hydration, potential risk of IV dye 3. Amyloidogenic transthyretin amyloidosis (HCC) - ICD9: 277.39, 425.7, ICD10: E85.89 Still on the vyndamax 4. 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) Other amyloidosis Cholecystitis Cholecystitis, unspecified Hypercholesterolemia Pure hypercholesterolemia Amyloidogenic transthyretin amyloidosis (HCC) Other amyloidosis Mixed hyperlipidemia Essential hypertension Unspecified essential hypertension Coronary artery disease due to calcified coronary lesion Neuropathy Mononeuritis of unspecified site Research subject documented in this encounter [facility] Miscellaneous Notes* Telephone Encounter - Lianne Hoover RN - 05/24/2022 12:21 PM EST Called the patient and gave her updated information regarding the heart cath/PCI and need for DAPT following procedure as per Dr. Ruby. Pt verbalized understanding of information given. Lianne Hoover RN May 24, 2022 12:23 PM * Telephone Encounter - Lianne Hoover RN - 05/24/2022 12:10 PM EST ----- Message from Genia Ruby MD sent at 05/24/2022 11:26 AM EST ----- Thank you, Omer. She has not been scheduled for a cath yet, so I can not forward this to anyone yet. However, I'll CC Lianne to call the patient and let her know about your thoughts of possibly stopping Lovenox if she were to have PCI in the near future; this way she can touch base with you right away ((just in case I don't find out in time). Thanks! Ayan ----- Message ----- From: Omer Narvaez DO Sent: 05/23/2022 7:40 PM EST To: MD Alberto Lew, Thank you for your note. I have to admit I don't know if either clopidogrel or ticagrelor would be better. However, if she goes on DAPT, I would have her stop Lovenox. She's had a rather tricky history in regards to her dysfibrinogenemia--more VTE events with a retroperitoneal bleed following surger y years ago when she was put on prophylactic anticoagulation postoperatively. The dose of Lovenox she is on now has done a nice job in preventing further venous thrombosis. But she's had hemorrhoidalbleeding in the past. So I think if DAPT, then continued Lovenox would significantly increase her risk of bleeding. I have encouraged her multiple times in the past to consistently use her compression stockings which would definitely help mitigate some risk of recurrent DVT for her. That would be especially important if she has to discontinue Lovenox. Please let me know after her catheterization if she requires a stent and I can discuss rationale with her on stopping Lovenox. Omer ----- Message ----- From: Genia Ruby MD Sent: 05/22/2022 4:05 PM EST To: Omer Narvaez, DO Tello, Just FYI, I will repeat a cardiac catheterization on her, and she may need an LAD stent and DAPT. Do you have any preference regarding either clopidogrel or ticagrelor + aspirin? Also, should she continue Lovenox afterwards? Thanks, Ayan Ruby MD, [facility], [facility] Staff, Section of Heart Failure and Transplantation Medicine Freight Dispatcher, Metabolic Exercise Testing Center [facility] Tonya Childers [facility] Sam Storm Department of Cardiovascular Medicine Jonatan [facility] Heart, Vascular and Thoracic [place] [address] [place] Tel: [phone] Fax: [phone] Appt: [phone] documented in this encounterAkron Children'[facility]02-20-2023 NoteHNO ID: [id number] Author: Winsome Chavez Rust Service: ? Author Type: ? Type: Progress Notes Filed: 05/22/2022 4:54 PM Note Text: [facility] #[id number] CardioTTRansform PI: Dr. Ruby Study Visit: Week 97 I met with the patient for the Study Day 673 Visit for the CardioTTRansform Study. Reaffirmed that the patient still wishes to participate in the study and continues to consent to the study. Has the patient had any changes in her health since the last study visit? Yes: Resolved Upper right quadrant pain. . Liver enzymes within normal limits Has the patient had any outside hospitalizations/ER visits: Yes Dates and locations: Laparoscopic cholecystectomy for calculus of gallbladder performed on 03/29/22. Discharged on 03/31/22 KCCQ completed: Yes [place] QoL completed: Not Required per protocol [id number] completed: Yes Ocular Questionnaire completed: Yes SF-36 completed: Yes Patient Global Assessment of Severity completed: Not Required per protocol Patient Global Assessment of Change completed: Not Required per protocol Blood and urine samples collected per protocol. Discussed with patient the requirement to take a daily Vitamin A supplement. Supplement was provided to patient. She verbalized understanding. Study drug was administered at 16:15 in the patient?s out area right arm. At home dosing education was reviewed with patient / caregiver. Teach back utilized. Study drug diary was reviewed with the patient and education on how to complete it was provided. She verbalized understanding. Study drug was dispensed to patient for home use. Dispensed Kits #[id number] and Kit #[id number] Discussed with the patient the importance of follow up in the study. She verbalized understanding. Patient contact information reaffirmed and updated. Coordinator contact information provided to the patient. Education provided: Protocol required tests/procedures Materials dispensed: None lead clinical research coordinator: Winsome Chavez Rust Pager #: [phone] NoteHNO ID: [id number] Author: Genia Ruby MD Service: ? Author Type: Physician Type: Progress Notes Filed: 05/22/2022 4:13 PM Note Text: Heart and Vascular [place] [facility] SECTION OF HEART FAILURE and CARDIAC TRANSPLANT MEDICINE OUTPATIENT VISIT DATE May 22, 2022 OUTPATIENT VISIT TYPE Established Patient PRIMARY CARE PHYSICIAN: Gab Pisano [address] [place] [address] CHIEF COMPLAINT: ATTR Cardiac Amyloidosis HISTORY OF PRESENT ILLNESS Yris Villagomez is a 81 year old White female who [facility] and management of Heart Failure. The patient has been referred by Genia Ruby MD. 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), Chest pain, Chronic kidney disease (CKD), stage III (moderate) ([facility]) (07/27/2016), Coronary artery disease due to calcified coronary lesion (06/22/2021), Diverticulitis, Diverticulosis of colon (without mention of hemorrhage), Diverticulosis of colon with hemorrhage, DVT (deep venous thrombosis) ([facility]), Dysmetabolic syndrome X, Hemorrhage of gastrointestinal tract, unspecified, Hernia of other specified sites of abdominal cavity without mention of obstruction or gangrene (2006), Internal hemorrhoids without mention of complication, Other and unspecified hyperlipidemia, PE (pulmonary embolism), Umbilical hernia (07/22/2009), Unspecified essential hypertension, Unspecified gastritis and gastroduodenitis (03/12/2008), and Unspecified hypothyroidism. She has no past medical history of Asthma, Blood dyscrasia, Chronic obstructive pulmonary disease (COPD) ([facility]), Diabetes ([facility]), Glaucoma, Heart attack ([facility]), Parkinson disease ([facility]), Seizures ([facility]), Snoring, Stroke ([facility]), or Syncope. The patient has a past surgical history that includes tonsillectomy primary/secondary yrs/> reducible (1980); ligj divj AND/excj varicose vein cluster 1 leg (1984); arteaga w/o facetec foramot/dsc 1/2 vrt sgm crv (2001); hysterectomy, revise vagina; colpectomy (1980); thyroidectomy total/complete (1994); arthrp acetblr/prox fem prostc agrft/algrft (2002); colonoscopy flx dx w/collj spec when pfrmd (09/15/1998); colonoscopy flx dx w/collj spec when pfrmd (08/07/2005); egd transoral biopsy single/multiple (03/12/2008); colsc flx w/removal lesion by hot bx forceps (03/12/2008); rpr 1st ingun hrna age 5 yrs/> reducible (1980); laps surg rpr recurrent inguinal hernia (07/22/2009); rpr umbilical hrna 5 yrs/> reducible (07/22/2009); x-ray placement, vein filter (08/13/2009); colonoscopy flx dx w/collj [facility] egd transoral biopsy single/multiple (09/30/2012); colonoscopy flx dx w/collj spec when pfrmd (03/05/2014); arthrp acetblr/prox fem prostc agrft/algrft (2002); past surgical history of (2001); past surgical history of (11/04/2014); esophagogastroduodenoscopy transoral diagnostic (06/10/2015); tonsillectomy and adenoidectomy hx (1967); removal gallbladder (03/29/2022); and laparoscopic cholecystectomy (03/29/2022). The patient also does not have any pertinent problems on file.. The primary encounter diagnosis was Wild-type transthyretin-related (ATTR) amyloidosis (HCC). 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 Confirmed ATTR cardiac amyloidosis. Patient recently had experienced transaminitis c/w gallstones. Now resolved. Scheduled for lap jairo. Currently off study drug. Denies orthopnea, PND, dizziness, palpitations, syncope, chest pain, edema. Has numerous episodes of abdominal discomfort before. S/p Laparoscopic cholecystectomy on 03/29/2022, feeling much better now. Would like to resume study drug. Continues to have DAN, possibly progressive. Hx of CAD, 70% LAD disease 3 years ago. 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 [facility]02-20-2023 History of Present illness Narrative* Winsome Chavez Rust - 05/22/2022 4:46 PM EST IRB #[id number] CardioTTRansform PI: Dr. Ruby Study Visit: Week 97 I met with the patient for the Study Day Visit for the CardioTTRansform Study. Reaffirmed that the patient still wishes to participate in the study and continues to consent to the study. Has the patient had any changes in her health since the last study visit? Yes: Resolved Upper rightquadrant pain. . Liver enzymes within normal limits Has the patient had any outside hospitalizations/ER visits: Yes Dates and locations: Laparoscopic cholecystectomy for calculus of gallbladder performed on 03/29/22. Discharged on 03/31/22 KCCQ completed: Yes [place] QoL completed: Not Required per protocol [id number] completed: Yes Ocular Questionnaire completed: Yes SF-36 completed: Yes Patient Global Assessment of Severity completed: Not Required per protocol Patient Global Assessment of Change completed: Not Required per protocol Blood and urine samples collected per protocol. Discussed with patient the requirement to take a daily Vitamin A supplement. Supplement was provided to patient. She verbalized understanding. Study drug was administered at 16:15 in the patient s out area right arm. At home dosing education was reviewed with patient / caregiver. Teach back utilized. Study drug diary was reviewed with the patient and education on how to complete it was provided. She verbalized understanding. Study drug was dispensed to patient for home use. Dispensed Kits #[id number] and Kit #[id number] Discussed with the patient the importance of follow up in the study. She verbalized understanding. Patient contact information reaffirmed and updated. Coordinator contact information provided to the patient. Education provided: Protocol required tests/procedures Materials dispensed: None lead clinical research coordinator: Winsome Chavez Rust Pager #: [phone] [facility]* Patient Instructions* Genia Ruby MD - 05/22/2022 4:07 PM EST Will proceed with Coronary Angiogram due to progressive DAN, and known 70% LAD lesion. Please hold your Enoxaparin 24 hs prior to the procedure. I have messaged Dr. Narvaez for recommendations regarding anticoagulation if she were to have PCI. Continue diuretics and tafamidis. Will resume study drug today (CardioTTRANSFORM) Will increase Rosuvastatin to 20 mg daily Will start metoprolol succinate 12.5 mg daily Return to clinic in 3 months with echocardiogram and fasting labs [facility] History of Present illness Narrative* Genia Ruby MD - 05/22/2022 3:44 PM EST Images from the original note were not included. [facility] SECTION OF HEART FAILURE and CARDIAC TRANSPLANT MEDICINE OUTPATIENT VISIT DATE May 22, 2022 OUTPATIENT VISIT TYPE Established Patient PRIMARY CARE PHYSICIAN: Gab Pisano [address] [place] [address] CHIEF COMPLAINT: ATTR Cardiac Amyloidosis HISTORY OF PRESENT ILLNESS Yris Villagomez is a 81 year old White female who [facility] and management of Heart Failure. The patient has been referred by Genia Ruby MD. 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), Chest pain, Chronic kidney disease (CKD), stage III (moderate) (HCC) (07/27/2016), Coronary artery disease due to calcified coronary lesion (06/22/2021), Diverticulitis, Diverticulosis of colon (without mention of hemorrhage), Diverticulosis of colon with hemorrhage, DVT (deep venous thrombosis) (HCC), Dysmetabolic syndromeX, Hemorrhage of gastrointestinal tract, unspecified, Hernia of other specified sites of abdominal cavity without mention of obstruction or gangrene (2006), Internal hemorrhoids without mention of complication, Other and unspecified hyperlipidemia, PE (pulmonary embolism), Umbilical hernia (07/22/2009), Unspecified essential hypertension, Unspecified gastritis and gastroduodenitis (03/12/2008), and Unspecified hypothyroidism. She has no past medical history of Asthma, Blood dyscrasia, Chronic obstructive pulmonary disease (COPD) (HCC), Diabetes (HCC), Glaucoma, Heart attack (HCC), Parkinson disease (HCC), Seizures (HCC), Snoring, Stroke (HCC), or Syncope. The patient has a past surgical history that includes tonsillectomy primary/secondary <age 12; rpr 1st ingun hrna age 5 yrs/> reducible (1980); ligj divj &/excj varicose vein cluster 1 leg (1984); arteaga w/o facetec foramot/dsc 1/2 vrt sgm crv (2001); hysterectomy, revise vagina; colpectomy (1980); thyroidectomy total/complete (1994); arthrp acetblr/prox fem prostc agrft/algrft (2002); colonoscopy flx dx w/collj spec when pfrmd (09/15/1998); colonoscopy f lx dx w/collj spec when pfrmd (08/07/2005); egd transoral biopsy single/multiple (03/12/2008); colsc flx w/removal lesion by hot bx forceps (03/12/2008); rpr 1st ingun hrna age 5 yrs/> reducible (1980); laps surg rpr recurrent inguinal hernia (07/22/2009); rpr umbilical hrna 5 yrs/> reducible(07/22/2009); x-ray placement, vein filter (08/13/2009); colonoscopy flx dx w[facility]collj [facility] egd transoral biopsy single/multiple (09/30/2012); colonoscopy flx dx w/colljspec when pfrmd (03/05/2014); arthrp acetblr/prox fem prostc agrft/algrft (2002); past surgical history of (2001); past surgical history of (11/04/2014); esophagogastroduodenoscopy transoral diagnostic (06/10/2015); tonsillectomy and adenoidectomy hx (1967); removal gallbladder (03/29/2022); and laparoscopic cholecystectomy (03/29/2022). The patient also does not have any pertinent problems on file.. The primary encounter diagnosis was Wild-type transthyretin-related (ATTR) amyloidosis (HCC). 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 Confirmed ATTR cardiac amyloidosis. Patient recently had experienced transaminitis c/w gallstones. Now resolved. Scheduled for lap jairo. Currently off study drug. Denies orthopnea, PND, dizziness, palpitations, syncope, chest pain, edema. Has numerous episodes of abdominal discomfort before. S/p Laparoscopic cholecystectomy on 03/29/2022, feeling much better now. Would like to resume studydrug. Continues to have DAN, possibly progressive. Hx of CAD, 70% LAD disease 3 years ago. 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/12/2008 Chest pain Chronic kidney disease (CKD), stage III (moderate) (HCC) 07/27/2016 Coronary artery disease due to calcified coronary lesion 06/22/2021 Diverticulitis Diverticulosis of colon (without mention of hemorrhage) Diverticulosis of colon with hemorrhage DVT (deep venous thrombosis) (HCC) After knee surgery Dysmetabolic syndrome X Hemorrhage of gastrointestinal tract, unspecified Hernia of other specified sites of abdominal cavity without mention of obstruction or gangrene 2006 Patient has 2 or 3 hernias at abdomen and groin Internal hemorrhoids without mention of complication Other and unspecified hyperlipidemia PE (pulmonary embolism) after hernia surgery Umbilical hernia 07/22/2009 Unspecified essential hypertension Unspecified gastritis and gastroduodenitis 03/12/2008 Unspecified hypothyroidism PAST SURGICAL HISTORY Procedure Laterality Date ARTHRP ACETBLR/PROX FEM PROSTC AGRFT/ALGRFT 2002 Hip replacement, total, left ARTHRP ACETBLR/PROX FEM PROSTC AGRFT/ALGRFT 2002 left hip COLONOSCOPY FLX DX W/COLLJ SPEC WHEN PFRMD 09/15/1998 Colonoscopy COLONOSCOPY FLX DX W/COLLJ SPEC WHEN PFRMD 08/07/2005 Colonoscopy COLONOSCOPY FLX DX W/COLL[facility] COLONOSCOPY FLX DX W/COLLJ SPEC WHEN PFRMD 03/05/2014 Colonoscopy COLSC FLX W/REMOVAL LESION BY HOT BX FORCEPS 03/12/2008 EGD TRANSORAL BIOPSY SINGLE/MULTIPLE 03/12/2008 EGD TRANSORAL BIOPSY SINGLE/MULTIPLE 09/30/2012 ESOPHAGOGASTRODUODENOSCOPY TRANSORAL DIAGNOSTIC 06/10/2015 EGD HYSTERECTOMY, REVISE VAGINA; COLPECTOMY 1980 Hysterectomy with bladder repair still ovaries ARTEAGA W/O FACETEC FORAMOT/DSC 1/2 VRT SGM CRV 2001 Discectomy and fusion, cervical LAPAROSCOPIC CHOLECYSTECTOMY 03/29/2022 LAPS SURG RPR RECURRENT INGUINAL HERNIA 07/22/2009 LIGJ DIVJ &/EXCJ VARICOSE VEIN CLUSTER 1 LEG 1985 Varicose Vein Surgery PAST SURGICAL HISTORY OF 2001 cervical spine repair PAST SURGICAL HISTORY OF 11/04/2014 cystocele REMOVAL GALLBLADDER 03/29/2022 RPR 1ST INGUN HRNA AGE 5 YRS/> REDUCIBLE 1980 Hernia repair, inguinal RPR 1ST INGUN HRNA AGE 5 YRS/> REDUCIBLE 1980 Hernia repair, inguinal, bilateral RPR UMBILICAL HRNA 5 YRS/> REDUCIBLE 07/22/2009 THYROIDECTOMY TOTAL/COMPLETE 1994 TONSILLECTOMY AND ADENOIDECTOMY HX 1968 TONSILLECTOMY PRIMARY/SECONDARY <AGE 12 Tonsillectomy X-RAY PLACEMENT, VEIN FILTER 08/13/2009 SOCIAL HISTORY Social History Tobacco Use Smoking status: Never Smokeless tobacco: Never Vaping Use Vaping Use: Never used Substance Use Topics Alcohol use: No Drug use: No FAMILY HISTORY Problem Relation Age of Onset Coronary Artery Disease Mother 83, CVA Colon Cancer Mother Coronary Artery Disease Father [place] 45 Cancer Brother multiple myeloma None Daughter None Daughter other (heart attack) Son other (fibramyalgia) Son other (blood clots in lungs) Son ALLERGIES: ALLERGIES Allergen Reactions Iodine Hives CURRENT MEDICATIONS: traMADol (ULTRAM) 50 mg tablet^Take 1 tablet by mouth every 6 hours as needed for up to 99 days.^Disp: 28 tablet^Rfl: 0 acetaminophen (TYLENOL EXTRA STRENGTH) 500 mg tablet^Take 2 tablets by mouth every 6 hours as needed for pain.^Disp: ^Rfl: ZINC ORAL^Take by mouth once daily.^Disp: ^Rfl: cholecalciferol, vitamin D3, (VITAMIN D3 ORAL)^Take by mouth once daily.^Disp: ^Rfl: torsemide (DEMADEX) 10 mg tablet^Take 2 tablets by mouth once daily.^Disp: 180 tablet^Rfl: 3 tafamidis (VYNDAMAX) 61 mg^Take 1 capsule by mouth once daily.^Disp: 30 capsule^Rfl: 11 enoxaparin (LOVENOX) 60 mg/0.6 mL syrg^Inject 0.6 mL subcutaneously once daily.^Disp: 90 Each^Rfl: 3 levothyroxine (SYNTHROID) 88 mcg tablet^Take 1 tablet by mouth once daily.^Disp: 90 tablet^Rfl: 3 vitamin A (AQUASOL A) 10,000 unit capsule^Take 10,000 Units by mouth Every 3 Days.^Disp: ^Rfl: aspirin, enteric coated (ASPIRIN, ENTERIC COATED) 81 mg EC tablet^Take 1 tablet by mouth once daily.^Disp: ^Rfl: polyethylene glycol 3350 (MIRALAX, GLYCOLAX) 17 gram/dose powder^as needed. One capful with a full glass of water, 2-3 times a day Or as directed ^Disp: ^Rfl: rosuvastatin (CRESTOR) 20 mg tablet^Take 1 tablet by mouth once daily.^Disp: 90 tablet^Rfl: 1 metoprolol succinate ER (TOPROL XL) 25 mg 24 hr tablet^Take 0.5 tablets by mouth once daily.^Disp: 45 tablet^Rfl: 3 REVIEW OF SYSTEMS CONSTITUTIONAL: No unintentional weight loss, malaise, or frequent fevers. No chronic fatigue. EYES: No acute vision symptoms. EARS, NOSE, MOUTH, THROAT: No acute auditive, nasal, oral, or pharyngeal symptoms. CARDIOVASCULAR: No angina. Moderate dyspnea on exertion. No orthopnea. No lower extremity edema. Nosyncope. No palpitations. RESPIRATORY: No cough, hemoptysis, or wheezing. No dyspnea at rest. GASTROINTESTINAL: No vomiting or diarrhea. No abdominal pain. No melena or hematemesis. GENITOURINARY: No acute urinary frequency, or incontinence. No renal colic symptoms. MUSCULOSKELETAL: No acute joint pain or swelling. No acute severe back or muscle pain. INTEGUMENTARY: No new skin lesions, rash, or itching. NEUROLOGICAL: No major or recurrent headaches, paralysis, seizures, or tremors. PSYCHIATRIC: No major mood disorder, or recent major psychosocial stressor. ENDOCRINE: No cold or heat intolerance, polyuria, polydipsia, or goiter. HEMATOLOGIC/LYMPHATIC: No major bleeding episode. No swollen nodes. ALLERGIC/IMMUNOLOGIC: No recent major allergic reaction. PATIENT ENTERED DATA: No flowsheet data found. No flowsheet data found. PROMIS Global Health - (T-Scores - the mean of general population = 50. Five points is a clinicallymeaningful difference.) 02/05/2017 02/05/2017 Physical T-Score 44.9 44.9 Mental T-Score 50.8 50.8 PHYSICAL EXAMINATION BP 119/72 (BP Site: Left Arm) Pulse 80 Temp 36.9 C (98.5 F) (Oral) Resp 16 Ht 165.1 cm (5' 5 ) Wt 61.3 kg (135 lb 1.6 oz) SpO2 96% BMI 22.48 kg/m CONSTITUTIONAL: Well appearing, in no acute distress. EYES: Pupils equally round and reactive to light, extraocular movements are grossly intact. EARS, NOSE, MOUTH, THROAT: Mucosas appear moist and intact. No obvious lesions. CARDIOVASCULAR: Regular and normal rate. Normal S1 and S2; no S3 or S4. No murmurs. No pericardial rub. No carotid bruit. Good capillary refill, no acrocyanosis. Peripheral pulses are normal throughout. JVP is normal. No lower extremity edema. RESPIRATORY: Lungs clear to auscultation; no significant wheezing, rhonchi, or rales. GASTROINTESTINAL: Abdomen is soft, non-tender, and non-distended. Bowel sounds are normal. GENITOURINARY: No costovertebral angle tenderness upon palpation; genital exam deferred. MUSCULOSKELETAL: No gross joint swelling, major deformity, or tenderness. No digital clubbing. Range of motion is grossly normal throughout. INTEGUMENTARY: Color, texture, and turgor are normal; no rashes or lesions. No jaundice. NEUROLOGICAL: Gait is grossly normal. Motor and sensory functions are grossly intact. PSYCHIATRIC: Alert and oriented to person, place, and time; lucid. Normal affect and insight. No significant mental retardation. Memory is grossly intact. ENDOCRINE: Thyroid and parotid glands are grossly normal. HEMATOLOGIC/LYMPHATIC: No major adenopathy, petechia, purpura, or ecchymoses. CARDIOVASCULAR MEDICINE TESTING: Potassium (mmol/L) Date Value 04/07/2022 3.9 03/02/2021 4.8 Sodium (mmol/L) Date Value 04/07/2022 139 03/02/2021 143 Magnesium (mg/dL) Date Value 03/30/2022 1.9 03/02/2021 2.4 Creatinine (mg/dL) Date Value 04/07/2022 0.93 03/02/2021 1.00 BUN (mg/dL) Date Value 04/07/2022 14 03/02/2021 23 Glucose (mg/dL) Date Value 04/07/2022 120 03/02/2021 99 PT INR (no units) Date Value 11/10/2019 1.2 TSH Date Value 01/02/2022 0.289 mIU/L 03/02/2021 1.910 uU/mL NT Pro BNP (pg/mL) Date Value 05/30/2021 1,259 09/09/2020 1,989 I have personally reviewed the Laboratory Testing. Last EKG Result Conclusion ECG COMPLETE Collected: 05/22/2022 11:34 AM (Preliminary result) Impression: SINUS RHYTHM WITH 1ST DEGREE AV BLOCK MINIMAL VOLTAGE CRITERIA FOR LVH, MAY BE NORMAL VARIANT ( Ragland product ) INFERIOR MYOCARDIAL INFARCTION , AGE UNDETERMINED ANTEROSEPTAL MYOCARDIAL INFARCTION , AGE UNDETERMINED ABNORMAL ECG 10/21/2019 Coronary Angiogram 70% LAD lesion LVEF 16 mmHg 11/12/2019 ECHO - The left ventricle is small. There is severe concentric left ventricular hypertrophy. Left ventricular systolic function is normal. EF = 68 5% (2D biplane). - Abnormal LV longitudinal strain with relative apical sparing. Consider cardiac amyloidosis. - The right ventricle is normal in size. Right ventricular systolic function is normal. - The left atrial cavity is mildly dilated. - There are no significant valvular abnormalities. - Exam was compared with the prior CC stress echocardiographic exam performed on 07/19/2009. Similar findings. 12/29/2019 PET 1. SPECT Perfusion Study: Normal. 2. Functional capacity N/A (pharmacological). 3. There is no scintigraphic evidence for inducible ischemia. 4. No evidence of scarred myocardium. 5. Left ventricle is normal in size. The left ventricle systolic function is normal. 6. Right ventricle is normal in size. The right ventricle systolic function is normal. 7. This is a low risk scan. 8. Incidental Findings from limited non-diagnostic CTAC: There is eventration of the anterior right hemidiaphragm - No distinct coronary calcifications. Gated Stress FBP Gated Rest FBP LVEF % 61 49 05/22/2022 ECG SINUS RHYTHM WITH 1ST DEGREE AV BLOCK MINIMAL VOLTAGE CRITERIA FOR LVH, MAY BE NORMAL VARIANT (Myke product ) INFERIOR MYOCARDIAL INFARCTION , AGE UNDETERMINED ANTEROSEPTAL MYOCARDIAL INFARCTION , AGE UNDETERMINED ABNORMAL ECG IMPRESSION Yris Villagomez is a 81 year old White female who [facility] for evaluation and management of Heart Failure. The patient has been referred by Genia Ruby MD. 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), Chest pain, Chronic kidney disease (CKD), stage III (moderate) ([facility]) (07/27/2016), Coronary artery disease due to calcified coronary lesion (06/22/2021), Diverticulitis, Diverticulosis of colon (without mention of hemorrhage), Diverticulosis of colon with hemorrhage, DVT (deep venous thrombosis) ([facility]), Dysmetabolic syndromeX, Hemorrhage of gastrointestinal tract, unspecified, Hernia of other specified sites of abdominal cavity without mention of obstruction or gangrene (2006), Internal hemorrhoids without mention of complication, Other and unspecified hyperlipidemia, PE (pulmonary embolism), Umbilical hernia (07/22/2009), Unspecified essential hypertension, Unspecified gastritis and gastroduodenitis (03/12/2008), and Unspecified hypothyroidism. She has no past medical history of Asthma, Blood dyscrasia, Chronic obstructive pulmonary disease (COPD) ([facility]), Diabetes (HCC), Glaucoma, Heart attack (HCC), Parkinson disease (HCC), Seizures (HCC), Snoring, Stroke (HCC), or Syncope. The patient has a past surgical history that includes tonsillectomy primary/secondary <age 12; rpr 1st ingun hrna age 5 yrs/> reducible (1980); ligj divj &/excj varicose vein cluster 1 leg (1984); arteaga w/o facetec foramot/dsc 1/2 vrt sgm crv (2001); hysterectomy, revise vagina; colpectomy (1980); thyroidectomy total/complete (1994); arthrp acetblr/prox fem prostc agrft/algrft (2002); colonoscopy flx dx w/collj spec when pfrmd (09/15/1998); colonoscopy f lx dx w/collj spec when pfrmd (08/07/2005); egd transoral biopsy single/multiple (03/12/2008); colsc flx w/removal lesion by hot bx forceps (03/12/2008); rpr 1st ingun hrna age 5 yrs/> reducible (1980); laps surg rpr recurrent inguinal hernia (07/22/2009); rpr umbilical hrna 5 yrs/> reducible(07/22/2009); x-ray placement, vein filter (08/13/2009); colon[facility]x dx w[facility] egd transoral biopsy single/multiple (09/30/2012); colonoscopy flx dx w/colljspec when pfrmd (03/05/2014); arthrp acetblr/prox fem prostc agrft/algrft (2002); past surgical history of (2001); past surgical history of (11/04/2014); esophagogastroduodenoscopy transoral diagnostic (06/10/2015); tonsillectomy and adenoidectomy hx (1967); removal gallbladder (03/29/2022); and laparoscopic cholecystectomy (03/29/2022). The patient also does not have any pertinent problems on file.. The primary encounter diagnosis was Wild-type transthyretin-related (ATTR) amyloidosis (HCC). 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 NYHA Functional Class: II Stage: C heart failure Target weight: current Stable. Euvolemic. Patient has intermediate cardiac risk for an intermediate risk procedure. Heart Failure specific medications (list current, note updates or changes, note prior intolerance) BB: none ACEI/ARB/ARNI: none MRA: none SGLT2: none Diuretic: torsemide Digoxin: none Vasodilators: none Anti-arrhythmics: none Ivabradine: none Other anti-HTN: none PLAN AND RECOMMENDATIONS Will proceed with Coronary Angiogram due to progressive DAN, and known 70% LAD lesion. Please hold your Enoxaparin 24 hs prior to the procedure. I have messaged Dr. Narvaez for recommendations regarding anticoagulation if she were to have PCI. Continue diuretics and tafamidis. Will resume study drug today (CardioTTRANSFORM) Will increase Rosuvastatin to 20 mg daily Will start metoprolol succinate 12.5 mg daily Return to clinic in 3 months with echocardiogram and fasting labs I have discussed with the patient and family and caregivers when present, in simple terms, the likely etiologies of the patient's condition, its pathophysiology, prognosis, current status, diagnosticmodalities, and both basic and advanced therapeutic options. In addition, we discussed guideline-rec ommended lifestyle modifications such as diet, weight management, exercise, and abstinence of tobacco, alcohol, and illicit substances. When appropriate, these were also documented in the Patient Instructions section of the After Visit Summary, which was printed and handed to the patient. The patient was also provided pertinent healthcare educational booklets available in our clinic. 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 Order Specific Question: Approving Staff Bar Pointer or CT Surgeon Answer: Genia RUBY [[id number]] Order Specific Question: Performing Physician Answer: FIRST AVAILABLE [[id number]] Order Specific Question: Date of Procedure Answer: First available Order Specific Question: Procedure Requested Answer: LHC with Possible PCI Order Specific Question: Requested access Answer: No Limitations Order Specific Question: Indications Answer: Dyspnea on Exertion Order Specific Question: Location Answer: Main Order Specific Question: Pre-cath requirements (if indicated) Answer: On anticoagulation LIPID PANEL, FASTING Standing Status: Future Standing Expiration Date: 07/22/2022 Scheduling Instructions: Patient must be Fasting 10-12 hours prior to having blood drawn. (Water is permitted) NT PRO BNP Standing Status: Future Standing Expiration Date: 07/22/2022 Scheduling Instructions: In preparation for this test, do not take multivitamins or dietary supplements containing biotin (vitamin B7) for at least 12 hours. Biotin is commonly found in hair, skin, and nail supplements and multivitamins. Tell your doctor if you take supplements containing biotin as part of your medication history. Comp Metabolic Panel Standing Status: Future Standing Expiration Date: 07/22/2022 perflutren lipid microspheres 1.3 mL in NaCl (PF) 0.9% 10 mL injection (DEFINITY) sodium chloride 0.9 % (flush) 10 mL (BD POSIFLUSH) rosuvastatin (CRESTOR) 20 mg tablet Sig: Take 1 tablet by mouth once daily. Dispense: 90 tablet Refill: 1 metoprolol succinate ER (TOPROL XL) 25 mg 24 hr tablet Sig: Take 0.5 tablets by mouth once daily. Dispense: 45 tablet Refill: 3 ECHO Standing Status: Future Standing Expiration Date: 05/22/2023 Order Specific Question: Disease / Condition: Answer: Heart Failure Order Specific Question: Indication: Answer: Evaluation of known heart failure to guide therapy [facility] STAFF PHYSICIAN NOTE OF PERSONAL INVOLVEMENT IN CARE I have personally performed a [id number] diagnostic evaluation on this patient, including anamnesis and physical examination, review and analysis of pertinent available medical records, and personal visualization and interpretation of pertinent available diagnostic data. The patient s condition required a significant and separately identifiable evaluation and management service, above and beyond the usual pre- and post-procedure/operative care associated with any procedure or service performed. Total time spent on this visit included time spent preparing to see the patient, obtaining history of present illness, performing a medically appropriate physical examination, counseling and educating the patient and caregivers, ordering medications and diagnostic tests, communicating with other health care providers, documenting the clinical information in the electronic health record, independently interpreting diagnostic results and communicating these to the patient and caregivers, and coordinating care, among others. The health conditions of this patient carry a high risk of complications, morbidity, and/or mortality of patient management. These health conditions warrant a high levelof medical decision making. This note was partially created using voice recognition software and is inherently subject to errors including those of syntax and sound-alike substitutions which may escape proofreading. In such instances, original meaning may be extrapolated by contextual derivation. For services provided on: May 22, 2022; 3:49 PM. Frieda Ruby MD Staff, Section of Heart Failure and Transplantation Medicine Nate Meredith and [facility] Sam Storm Department of Cardiovascular Medicine [facility] V[facility] Thor[facility] [place] [address] [place] Tel: [phone] Fax: [phone] Appt: [phone] [facility] of Past illness Narrative* Problem Noted Date Diagnosed Date Resolved Date Cholecystitis 05/22/2022 10/12/2022 Cholelithiasis without cholangitis 03/29/2022 10/12/2022 Symptomatic cholelithiasis 03/29/2022 0 10/12/2022 Acute stress reaction 09/16/20202022 Recent bereavement 09/16/2020 3 Chest pain 11/10/2019 11/13/2019 Hospital discharge follow-up 05/14/2019 02/21/2022 Moderate protein-calorie malnutrition 05/06/2019 11/19/2019 Epigastric pain 06/10/2015 06/10/2015 DVT prophylaxis 11/05/2014 02/21/2022 Family history of ischemic heart disease 10/14/2014 11/19/2019 Other symptoms involving dig estive system(787.99) 03/05/2014 03/05/2014 Abdominal pain, right lower quadrant 03/05/2014 03/05/2014 Groin pain 04/23/2013 08/28/2013 DVT (deep venous thrombosis) 10/17/2010 09/30/2018 Ac DVT/embl low ext NOS 08/23/201010/31 Status post inguinal hernia repair 11/23/2009 08/28/2013 Umbilical hernia without men tion of obstruction or gangrene 06/21/2009 08/28/2013 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/12/2008 Unspecified gastritis and ga stroduodenitis without mention of hemorrhage 03/12/2008 08/28/2013 Blood in stool 03/11/2008 08/28/2013 INGUINAL HERNIA, BILAT, RECU RRENT W/O GANGRENE/OBSTRUCTION 11/30/2006 08/28/2013 Adjustment disorder with depressed mood 05/16/2005 08/28/2013 Hypothyroidism 09/30/2018 Abdominal pain, unspecified site 08/28/2013 documented as of this encounter (statuses as of 10/12/2022) [facility] History of Past illness Narrative* Problem Noted Date Diagnosed Date Resolved Date Cholecystitis 05/22/2022 10/12/2022 Cholelithiasis without cholangitis 03/29/2022 10/12/2022 Symptomatic cholelithiasis 03/29/2022 0 10/12/2022 Acute stress reaction 09/16/20202022 Recent bereavement 09/16/2020 Chest pain 11/10/2019 11/13/2019 Hospital discharge follow-up 05/14/2019 02/21/2022 Moderate protein-calorie malnutrition 05/06/2019 11/19/2019 Epigastric pain 06/10/2015 06/10/2015 DVT prophylaxis 11/05/2014 02/21/2022 Family history of ischemic heart disease 10/14/2014 11/19/2019 Other symptoms involving dig estive system(787.99) 03/05/2014 03/05/2014 Abdominal pain, right lower quadrant 03/05/2014 03/05/2014 Groin pain 04/23/2013 08/28/2013 DVT (deep venous thrombosis) 10/17/2010 09/30/2018 Ac DVT/embl low ext NOS 08/23/201010/31 Status post inguinal hernia repair 11/23/2009 08/28/2013 Umbilical hernia without men tion of obstruction or gangrene 06/21/2009 08/28/2013 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/12/2008 Unspecified gastritis and ga stroduodenitis without mention of hemorrhage 03/12/2008 08/28/2013 Blood in stool 03/11/2008 08/28/2013 INGUINAL HERNIA, BILAT, RECU RRENT W/O GANGRENE/OBSTRUCTION 11/30/2006 08/28/2013 Adjustment disorder with depressed mood 05/16/2005 08/28/2013 Hypothyroidism 09/30/2018 Abdominal pain, unspecified site 08/28/2013 documented as of this encounter (statuses as of 10/13/2022) [facility] of Past illness Narrative* Problem Noted Date Diagnosed Date Resolved Date Cholecystitis 05/22/2022 10/12/2022 Cholelithiasis without cholangitis 03/29/2022 10/12/2022 Symptomatic cholelithiasis 03/29/2022 0 10/12/2022 Acute stress reaction 09/16/20202022 Recent bereavement 09/16/2020 Chest pain 11/10/2019 11/13/2019 Hospital discharge follow-up 05/14/2019 02/21/2022 Moderate protein-calorie malnutrition 05/06/2019 11/19/2019 Epigastric pain 06/10/2015 06/10/2015 DVT prophylaxis 11/05/2014 02/21/2022 Family history of ischemic heart disease 10/14/2014 11/19/2019 Other symptoms involving dig estive system(787.99) 03/05/2014 03/05/2014 Abdominal pain, right lower quadrant 03/05/2014 03/05/2014 Groin pain 04/23/2013 08/28/2013 DVT (deep venous thrombosis) 10/17/2010 09/30/2018 Ac DVT/embl low ext NOS 08/23/201010/31 Status post inguinal hernia repair 11/23/2009 08/28/2013 Umbilical hernia without men tion of obstruction or gangrene 06/21/2009 08/28/2013 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/12/2008 Unspecified gastritis and ga stroduodenitis without mention of hemorrhage 03/12/2008 08/28/2013 Blood in stool 03/11/2008 08/28/2013 INGUINAL HERNIA, BILAT, RECU RRENT W/O GANGRENE/OBSTRUCTION 11/30/2006 08/28/2013 Adjustment disorder with depressed mood 05/16/2005 08/28/2013 Hypothyroidism 09/30/2018 Abdominal pain, unspecified site 08/28/2013 documented as of this encounter (statuses as of 10/19/2022) [facility] of Past illness Narrative* Problem Noted Date Diagnosed Date Resolved Date Cholecystitis 05/22/2022 10/12/2022 Cholelithiasis without cholangitis 03/29/2022 10/12/2022 Symptomatic cholelithiasis 03/29/2022 0 10/12/2022 Acute stress reaction 09/16/20202022 Recent bereavement 09/16/2020 Chest pain 11/10/2019 11/13/2019 Hospital discharge follow-up 05/14/2019 02/21/2022 Moderate protein-calorie malnutrition 05/06/2019 11/19/2019 Epigastric pain 06/10/2015 06/10/2015 DVT prophylaxis 11/05/2014 02/21/2022 Family history of ischemic heart disease 10/14/2014 11/19/2019 Other symptoms involving dig estive system(787.99) 03/05/2014 03/05/2014 Abdominal pain, right lower quadrant 03/05/2014 03/05/2014 Groin pain 04/23/2013 08/28/2013 DVT (deep venous thrombosis) 10/17/2010 09/30/2018 Ac DVT/embl low ext NOS 08/23/201010/31 Status post inguinal hernia repair 11/23/2009 08/28/2013 Umbilical hernia without men tion of obstruction or gangrene 06/21/2009 08/28/2013 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/12/2008 Unspecified gastritis and ga stroduodenitis without mention of hemorrhage 03/12/2008 08/28/2013 Blood in stool 03/11/2008 08/28/2013 INGUINAL HERNIA, BILAT, RECU RRENT W/O GANGRENE/OBSTRUCTION 11/30/2006 08/28/2013 Adjustment disorder with depressed mood 05/16/2005 08/28/2013 Hypothyroidism 09/30/2018 Abdominal pain, unspecified site 08/28/2013 documented as of this encounter (statuses as of 10/31/2022) [facility] of Past illness Narrative* Problem Noted Date Diagnosed Date Resolved Date Cholecystitis 05/22/2022 10/12/2022 Cholelithiasis without cholangitis 03/29/2022 10/12/2022 Symptomatic cholelithiasis 03/29/2022 0 10/12/2022 Acute stress reaction 09/16/20202022 Recent bereavement 09/16/2020 Chest pain 11/10/2019 11/13/2019 Hospital discharge follow-up 05/14/2019 02/21/2022 Moderate protein-calorie malnutrition 05/06/2019 11/19/2019 Epigastric pain 06/10/2015 06/10/2015 DVT prophylaxis 11/05/2014 02/21/2022 Family history of ischemic heart disease 10/14/2014 11/19/2019 Other symptoms involving dig estive system(787.99) 03/05/2014 03/05/2014 Abdominal pain, right lower quadrant 03/05/2014 03/05/2014 Groin pain 04/23/2013 08/28/2013 DVT (deep venous thrombosis) 10/17/2010 09/30/2018 Ac DVT/embl low ext NOS 08/23/201010/31 Status post inguinal hernia repair 11/23/2009 08/28/2013 Umbilical hernia without men tion of obstruction or gangrene 06/21/2009 08/28/2013 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/12/2008 Unspecified gastritis and ga stroduodenitis without mention of hemorrhage 03/12/2008 08/28/2013 Blood in stool 03/11/2008 08/28/2013 INGUINAL HERNIA, BILAT, RECU RRENT W/O GANGRENE/OBSTRUCTION 11/30/2006 08/28/2013 Adjustment disorder with depressed mood 05/16/2005 08/28/2013 Hypothyroidism 09/30/2018 Abdominal pain, unspecified site 08/28/2013 documented as of this encounter (statuses as of 11/01/2022) [facility] of Past illness Narrative* Problem Noted Date Diagnosed Date Resolved Date Cholecystitis 05/22/2022 10/12/2022 Cholelithiasis without cholangitis 03/29/2022 10/12/2022 Symptomatic cholelithiasis 03/29/2022 0 10/12/2022 Acute stress reaction 09/16/20202022 Recent bereavement 09/16/2020 Chest pain 11/10/2019 11/13/2019 Hospital discharge follow-up 05/14/2019 02/21/2022 Moderate protein-calorie malnutrition 05/06/2019 11/19/2019 Epigastric pain 06/10/2015 06/10/2015 DVT prophylaxis 11/05/2014 02/21/2022 Family history of ischemic heart disease 10/14/2014 11/19/2019 Other symptoms involving dig estive system(787.99) 03/05/2014 03/05/2014 Abdominal pain, right lower quadrant 03/05/2014 03/05/2014 Groin pain 04/23/2013 08/28/2013 DVT (deep venous thrombosis) 10/17/2010 09/30/2018 Ac DVT/embl low ext NOS 08/23/201010/31 Status post inguinal hernia repair 11/23/2009 08/28/2013 Umbilical hernia without men tion of obstruction or gangrene 06/21/2009 08/28/2013 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/12/2008 Unspecified gastritis and ga stroduodenitis without mention of hemorrhage 03/12/2008 08/28/2013 Blood in stool 03/11/2008 08/28/2013 INGUINAL HERNIA, BILAT, RECU RRENT W/O GANGRENE/OBSTRUCTION 11/30/2006 08/28/2013 Adjustment disorder with depressed mood 05/16/2005 08/28/2013 Hypothyroidism 09/30/2018 Abdominal pain, unspecified site 08/28/2013 documented as of this encounter (statuses as of 11/14/2022) [facility] of Past illness Narrative* Problem Noted Date Diagnosed Date Resolved Date Cholecystitis 05/22/2022 10/12/2022 Cholelithiasis without cholangitis 03/29/2022 10/12/2022 Symptomatic cholelithiasis 03/29/2022 0 10/12/2022 Acute stress reaction 09/16/20202022 Recent bereavement 09/16/2020 3 Chest pain 11/10/2019 11/13/2019 Hospital discharge follow-up 05/14/2019 02/21/2022 Moderate protein-calorie malnutrition 05/06/2019 11/19/2019 Epigastric pain 06/10/2015 06/10/2015 DVT prophylaxis 11/05/2014 02/21/2022 Family history of ischemic heart disease 10/14/2014 11/19/2019 Other symptoms involving dig estive system(787.99) 03/05/2014 03/05/2014 Abdominal pain, right lower quadrant 03/05/2014 03/05/2014 Groin pain 04/23/2013 08/28/2013 DVT (deep venous thrombosis) 10/17/2010 09/30/2018 Ac DVT/embl low ext NOS 08/23/201010/31 Status post inguinal hernia repair 11/23/2009 08/28/2013 Umbilical hernia without men tion of obstruction or gangrene 06/21/2009 08/28/2013 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/12/2008 Unspecified gastritis and ga stroduodenitis without mention of hemorrhage 03/12/2008 08/28/2013 Blood in stool 03/11/2008 08/28/2013 INGUINAL HERNIA, BILAT, RECU RRENT W/O GANGRENE/OBSTRUCTION 11/30/2006 08/28/2013 Adjustment disorder with depressed mood 05/16/2005 08/28/2013 Hypothyroidism 09/30/2018 Abdominal pain, unspecified site 08/28/2013 documented as of this encounter (statuses as of 11/17/2022) [facility] of Past illness Narrative* Problem Noted Date Diagnosed Date Resolved Date Cholecystitis 05/22/2022 10/12/2022 Cholelithiasis without cholangitis 03/29/2022 10/12/2022 Symptomatic cholelithiasis 03/29/2022 0 10/12/2022 Acute stress reaction 09/16/20202022 Recent bereavement 09/16/2020 3 Chest pain 11/10/2019 11/13/2019 Hospital discharge follow-up 05/14/2019 02/21/2022 Moderate protein-calorie malnutrition 05/06/2019 11/19/2019 Epigastric pain 06/10/2015 06/10/2015 DVT prophylaxis 11/05/2014 02/21/2022 Family history of ischemic heart disease 10/14/2014 11/19/2019 Other symptoms involving dig estive system(787.99) 03/05/2014 03/05/2014 Abdominal pain, right lower quadrant 03/05/2014 03/05/2014 Groin pain 04/23/2013 08/28/2013 DVT (deep venous thrombosis) 10/17/2010 09/30/2018 Ac DVT/embl low ext NOS 08/23/201010/31 Status post inguinal hernia repair 11/23/2009 08/28/2013 Umbilical hernia without men tion of obstruction or gangrene 06/21/2009 08/28/2013 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/12/2008 Unspecified gastritis and ga stroduodenitis without mention of hemorrhage 03/12/2008 08/28/2013 Blood in stool 03/11/2008 08/28/2013 INGUINAL HERNIA, BILAT, RECU RRENT W/O GANGRENE/OBSTRUCTION 11/30/2006 08/28/2013 Adjustment disorder with depressed mood 05/16/2005 08/28/2013 Hypothyroidism 09/30/2018 Abdominal pain, unspecified site 08/28/2013 documented as of this encounter (statuses as of 11/21/2022) [facility] of Past illness Narrative* Problem Noted Date Diagnosed Date Resolved Date Cholecystitis 05/22/2022 10/12/2022 Cholelithiasis without cholangitis 03/29/2022 10/12/2022 Symptomatic cholelithiasis 03/29/2022 0 10/12/2022 Acute stress reaction 09/16/20202022 Recent bereavement 09/16/2020 Chest pain 11/10/2019 11/13/2019 Hospital discharge follow-up 05/14/2019 02/21/2022 Moderate protein-calorie malnutrition 05/06/2019 11/19/2019 Epigastric pain 06/10/2015 06/10/2015 DVT prophylaxis 11/05/2014 02/21/2022 Family history of ischemic heart disease 10/14/2014 11/19/2019 Other symptoms involving dig estive system(787.99) 03/05/2014 03/05/2014 Abdominal pain, right lower quadrant 03/05/2014 03/05/2014 Groin pain 04/23/2013 08/28/2013 DVT (deep venous thrombosis) 10/17/2010 09/30/2018 Ac DVT/embl low ext NOS 08/23/201010/31 Status post inguinal hernia repair 11/23/2009 08/28/2013 Umbilical hernia without men tion of obstruction or gangrene 06/21/2009 08/28/2013 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/12/2008 Unspecified gastritis and ga stroduodenitis without mention of hemorrhage 03/12/2008 08/28/2013 Blood in stool 03/11/2008 08/28/2013 INGUINAL HERNIA, BILAT, RECU RRENT W/O GANGRENE/OBSTRUCTION 11/30/2006 08/28/2013 Adjustment disorder with depressed mood 05/16/2005 08/28/2013 Hypothyroidism 09/30/2018 Abdominal pain, unspecified site 08/28/2013 documented as of this encounter (statuses as of 11/24/2022) [facility] of Past illness Narrative* Problem Noted Date Diagnosed Date Resolved Date Cholecystitis 05/22/2022 10/12/2022 Cholelithiasis without cholangitis 03/29/2022 10/12/2022 Symptomatic cholelithiasis 03/29/2022 0 10/12/2022 Acute stress reaction 09/16/20202022 Recent bereavement 09/16/2020 Chest pain 11/10/2019 11/13/2019 Hospital discharge follow-up 05/14/2019 02/21/2022 Moderate protein-calorie malnutrition 05/06/2019 11/19/2019 Epigastric pain 06/10/2015 06/10/2015 DVT prophylaxis 11/05/2014 02/21/2022 Family history of ischemic heart disease 10/14/2014 11/19/2019 Other symptoms involving dig estive system(787.99) 03/05/2014 03/05/2014 Abdominal pain, right lower quadrant 03/05/2014 03/05/2014 Groin pain 04/23/2013 08/28/2013 DVT (deep venous thrombosis) 10/17/2010 09/30/2018 Ac DVT/embl low ext NOS 08/23/201010/31 Status post inguinal hernia repair 11/23/2009 08/28/2013 Umbilical hernia without men tion of obstruction or gangrene 06/21/2009 08/28/2013 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/12/2008 Unspecified gastritis and ga stroduodenitis without mention of hemorrhage 03/12/2008 08/28/2013 Blood in stool 03/11/2008 08/28/2013 INGUINAL HERNIA, BILAT, RECU RRENT W/O GANGRENE/OBSTRUCTION 11/30/2006 08/28/2013 Adjustment disorder with depressed mood 05/16/2005 08/28/2013 Hypothyroidism 09/30/2018 Abdominal pain, unspecified site 08/28/2013 documented as of this encounter (statuses as of 11/24/2022) [facility] of Past illness Narrative* Problem Noted Date Diagnosed Date Resolved Date Cholecystitis 05/22/2022 10/12/2022 Cholelithiasis without cholangitis 03/29/2022 10/12/2022 Symptomatic cholelithiasis 03/29/2022 0 10/12/2022 Acute stress reaction 09/16/20202022 Recent bereavement 09/16/2020 Chest pain 11/10/2019 11/13/2019 Hospital discharge follow-up 05/14/2019 02/21/2022 Moderate protein-calorie malnutrition 05/06/2019 11/19/2019 Epigastric pain 06/10/2015 06/10/2015 DVT prophylaxis 11/05/2014 02/21/2022 Family history of ischemic heart disease 10/14/2014 11/19/2019 Other symptoms involving dig estive system(787.99) 03/05/2014 03/05/2014 Abdominal pain, right lower quadrant 03/05/2014 03/05/2014 Groin pain 04/23/2013 08/28/2013 DVT (deep venous thrombosis) 10/17/2010 09/30/2018 Ac DVT/embl low ext NOS 08/23/201010/31 Status post inguinal hernia repair 11/23/2009 08/28/2013 Umbilical hernia without men tion of obstruction or gangrene 06/21/2009 08/28/2013 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/12/2008 Unspecified gastritis and ga stroduodenitis without mention of hemorrhage 03/12/2008 08/28/2013 Blood in stool 03/11/2008 08/28/2013 INGUINAL HERNIA, BILAT, RECU RRENT W/O GANGRENE/OBSTRUCTION 11/30/2006 08/28/2013 Adjustment disorder with depressed mood 05/16/2005 08/28/2013 Hypothyroidism 09/30/2018 Abdominal pain, unspecified site 08/28/2013 documented as of this encounter (statuses as of 11/27/2022) [facility] Narrative* Problem Noted Date Diagnosed Date Resolved Date Cholecystitis 05/22/2022 10/12/2022 Cholelithiasis without cholangitis 03/29/2022 10/12/2022 Symptomatic cholelithiasis 03/29/2022 0 10/12/2022 Acute stress reaction 09/16/20202022 Recent bereavement 09/16/2020 Chest pain 11/10/2019 11/13/2019 Hospital discharge follow-up 05/14/2019 02/21/2022 Moderate protein-calorie malnutrition 05/06/2019 11/19/2019 Epigastric pain 06/10/2015 06/10/2015 DVT prophylaxis 11/05/2014 02/21/2022 Family history of ischemic heart disease 10/14/2014 11/19/2019 Other symptoms involving dig estive system(787.99) 03/05/2014 03/05/2014 Abdominal pain, right lower quadrant 03/05/2014 03/05/2014 Groin pain 04/23/2013 08/28/2013 DVT (deep venous thrombosis) 10/17/2010 09/30/2018 Ac DVT/embl low ext NOS 08/23/201010/31 Status post inguinal hernia repair 11/23/2009 08/28/2013 Umbilical hernia without men tion of obstruction or gangrene 06/21/2009 08/28/2013 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/12/2008 Unspecified gastritis and ga stroduodenitis without mention of hemorrhage 03/12/2008 08/28/2013 Blood in stool 03/11/2008 08/28/2013 INGUINAL HERNIA, BILAT, RECU RRENT W/O GANGRENE/OBSTRUCTION 11/30/2006 08/28/2013 Adjustment disorder with depressed mood 05/16/2005 08/28/2013 Hypothyroidism 09/30/2018 Abdominal pain, unspecified site 08/28/2013 documented as of this encounter (statuses as of 11/29/2022) [facility] of Past illness Narrative* Problem Noted Date Diagnosed Date Resolved Date Cholecystitis 05/22/2022 10/12/2022 Cholelithiasis without cholangitis 03/29/2022 10/12/2022 Symptomatic cholelithiasis 03/29/2022 0 10/12/2022 Acute stress reaction 09/16/20202022 Recent bereavement 09/16/2020 Chest pain 11/10/2019 11/13/2019 Hospital discharge follow-up 05/14/2019 02/21/2022 Moderate protein-calorie malnutrition 05/06/2019 11/19/2019 Epigastric pain 06/10/2015 06/10/2015 DVT prophylaxis 11/05/2014 02/21/2022 Family history of ischemic heart disease 10/14/2014 11/19/2019 Other symptoms involving dig estive system(787.99) 03/05/2014 03/05/2014 Abdominal pain, right lower quadrant 03/05/2014 03/05/2014 Groin pain 04/23/2013 08/28/2013 DVT (deep venous thrombosis) 10/17/2010 09/30/2018 Ac DVT/embl low ext NOS 08/23/201010/31 Status post inguinal hernia repair 11/23/2009 08/28/2013 Umbilical hernia without men tion of obstruction or gangrene 06/21/2009 08/28/2013 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/12/2008 Unspecified gastritis and ga stroduodenitis without mention of hemorrhage 03/12/2008 08/28/2013 Blood in stool 03/11/2008 08/28/2013 INGUINAL HERNIA, BILAT, RECU RRENT W/O GANGRENE/OBSTRUCTION 11/30/2006 08/28/2013 Adjustment disorder with depressed mood 05/16/2005 08/28/2013 Hypothyroidism 09/30/2018 Abdominal pain, unspecified site 08/28/2013 documented as of this encounter (statuses as of 12/05/2022) [facility] History of Past illness Narrative* Problem Noted Date Diagnosed Date Resolved Date Cholecystitis 05/22/2022 10/12/2022 Cholelithiasis without cholangitis 03/29/2022 10/12/2022 Symptomatic cholelithiasis 03/29/2022 0 10/12/2022 Acute stress reaction 09/16/20202022 Recent bereavement 09/16/2020 Chest pain 11/10/2019 11/13/2019 Hospital discharge follow-up 05/14/2019 02/21/2022 Moderate protein-calorie malnutrition 05/06/2019 11/19/2019 Epigastric pain 06/10/2015 06/10/2015 DVT prophylaxis 11/05/2014 02/21/2022 Family history of ischemic heart disease 10/14/2014 11/19/2019 Other symptoms involving dig estive system(787.99) 03/05/2014 03/05/2014 Abdominal pain, right lower quadrant 03/05/2014 03/05/2014 Groin pain 04/23/2013 08/28/2013 DVT (deep venous thrombosis) 10/17/2010 09/30/2018 Ac DVT/embl low ext NOS 08/23/201010/31 Status post inguinal hernia repair 11/23/2009 08/28/2013 Umbilical hernia without men tion of obstruction or gangrene 06/21/2009 08/28/2013 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/12/2008 Unspecified gastritis and ga stroduodenitis without mention of hemorrhage 03/12/2008 08/28/2013 Blood in stool 03/11/2008 08/28/2013 INGUINAL HERNIA, BILAT, RECU RRENT W/O GANGRENE/OBSTRUCTION 11/30/2006 08/28/2013 Adjustment disorder with depressed mood 05/16/2005 08/28/2013 Hypothyroidism 09/30/2018 Abdominal pain, unspecified site 08/28/2013 documented as of this encounter (statuses as of 12/07/2022) [facility]02-20-2023 History of Past illness Narrative* Problem Noted Date Diagnosed Date Resolved Date Cholecystitis 05/22/2022 10/12/2022 Cholelithiasis without cholangitis 03/29/2022 10/12/2022 Symptomatic cholelithiasis 03/29/2022 0 10/12/2022 Acute stress reaction 09/16/20202022 Recent bereavement 09/16/2020 3 Chest pain 11/10/2019 11/13/2019 Hospital discharge follow-up 05/14/2019 02/21/2022 Moderate protein-calorie malnutrition 05/06/2019 11/19/2019 Epigastric pain 06/10/2015 06/10/2015 DVT prophylaxis 11/05/2014 02/21/2022 Family history of ischemic heart disease 10/14/2014 11/19/2019 Other symptoms involving dig estive system(787.99) 03/05/2014 03/05/2014 Abdominal pain, right lower quadrant 03/05/2014 03/05/2014 Groin pain 04/23/2013 08/28/2013 DVT (deep venous thrombosis) 10/17/2010 09/30/2018 Ac DVT/embl low ext NOS 08/23/201010/31 Status post inguinal hernia repair 11/23/2009 08/28/2013 Umbilical hernia without men tion of obstruction or gangrene 06/21/2009 08/28/2013 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/12/2008 Unspecified gastritis and ga stroduodenitis without mention of hemorrhage 03/12/2008 08/28/2013 Blood in stool 03/11/2008 08/28/2013 INGUINAL HERNIA, BILAT, RECU RRENT W/O GANGRENE/OBSTRUCTION 11/30/2006 08/28/2013 Adjustment disorder with depressed mood 05/16/2005 08/28/2013 Hypothyroidism 09/30/2018 Abdominal pain, unspecified site 08/28/2013 documented as of this encounter (statuses as of 12/08/2022) [facility]02-[facility] History of Past illness Narrative* Problem Noted Date Diagnosed Date Resolved Date Cholecystitis 05/22/2022 10/12/2022 Cholelithiasis without cholangitis 03/29/2022 10/12/2022 Symptomatic cholelithiasis 03/29/2022 0 10/12/2022 Acute stress reaction 09/16/20202022 Recent bereavement 09/16/2020 3 Chest pain 11/10/2019 11/13/2019 Hospital discharge follow-up 05/14/2019 02/21/2022 Moderate protein-calorie malnutrition 05/06/2019 11/19/2019 Epigastric pain 06/10/2015 06/10/2015 DVT prophylaxis 11/05/2014 02/21/2022 Family history of ischemic heart disease 10/14/2014 11/19/2019 Other symptoms involving dig estive system(787.99) 03/05/2014 03/05/2014 Abdominal pain, right lower quadrant 03/05/2014 03/05/2014 Groin pain 04/23/2013 08/28/2013 DVT (deep venous thrombosis) 10/17/2010 09/30/2018 Ac DVT/embl low ext NOS 08/23/201010/31 Status post inguinal hernia repair 11/23/2009 08/28/2013 Umbilical hernia without men tion of obstruction or gangrene 06/21/2009 08/28/2013 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/12/2008 Unspecified gastritis and ga stroduodenitis without mention of hemorrhage 03/12/2008 08/28/2013 Blood in stool 03/11/2008 08/28/2013 INGUINAL HERNIA, BILAT, RECU RRENT W/O GANGRENE/OBSTRUCTION 11/30/2006 08/28/2013 Adjustment disorder with depressed mood 05/16/2005 08/28/2013 Hypothyroidism 09/30/2018 Abdominal pain, unspecified site 08/28/2013 documented as of this encounter (statuses as of 12/13/2022) [facility] History of Past illness Narrative* Problem Noted Date Diagnosed Date Resolved Date Cholecystitis 05/22/2022 10/12/2022 Cholelithiasis without cholangitis 03/29/2022 10/12/2022 Symptomatic cholelithiasis 03/29/2022 0 10/12/2022 Acute stress reaction 09/16/20202022 Recent bereavement 09/16/2020 Chest pain 11/10/2019 11/13/2019 Hospital discharge follow-up 05/14/2019 02/21/2022 Moderate protein-calorie malnutrition 05/06/2019 11/19/2019 Epigastric pain 06/10/2015 06/10/2015 DVT prophylaxis 11/05/2014 02/21/2022 Family history of ischemic heart disease 10/14/2014 11/19/2019 Other symptoms involving dig estive system(787.99) 03/05/2014 03/05/2014 Abdominal pain, right lower quadrant 03/05/2014 03/05/2014 Groin pain 04/23/2013 08/28/2013 DVT (deep venous thrombosis) 10/17/2010 09/30/2018 Ac DVT/embl low ext NOS 08/23/201010/31 Status post inguinal hernia repair 11/23/2009 08/28/2013 Umbilical hernia without men tion of obstruction or gangrene 06/21/2009 08/28/2013 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/12/2008 Unspecified gastritis and ga stroduodenitis without mention of hemorrhage 03/12/2008 08/28/2013 Blood in stool 03/11/2008 08/28/2013 INGUINAL HERNIA, BILAT, RECU RRENT W/O GANGRENE/OBSTRUCTION 11/30/2006 08/28/2013 Adjustment disorder with depressed mood 05/16/2005 08/28/2013 Hypothyroidism 09/30/2018 Abdominal pain, unspecified site 08/28/2013 documented as of this encounter (statuses as of 12/23/2022) [facility]02[facility] History of Past illness Narrative* Problem Noted Date Diagnosed Date Resolved Date Cholecystitis 05/22/2022 10/12/2022 Cholelithiasis without cholangitis 03/29/2022 10/12/2022 Symptomatic cholelithiasis 03/29/2022 0 10/12/2022 Acute stress reaction 09/16/20202022 Recent bereavement 09/16/2020 Chest pain 11/10/2019 11/13/2019 Hospital discharge follow-up 05/14/2019 02/21/2022 Moderate protein-calorie malnutrition 05/06/2019 11/19/2019 Epigastric pain 06/10/2015 06/10/2015 DVT prophylaxis 11/05/2014 02/21/2022 Family history of ischemic heart disease 10/14/2014 11/19/2019 Other symptoms involving dig estive system(787.99) 03/05/2014 03/05/2014 Abdominal pain, right lower quadrant 03/05/2014 03/05/2014 Groin pain 04/23/2013 08/28/2013 DVT (deep venous thrombosis) 10/17/2010 09/30/2018 Ac DVT/embl low ext NOS 08/23/201010/31 Status post inguinal hernia repair 11/23/2009 08/28/2013 Umbilical hernia without men tion of obstruction or gangrene 06/21/2009 08/28/2013 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/12/2008 Unspecified gastritis and ga stroduodenitis without mention of hemorrhage 03/12/2008 08/28/2013 Blood in stool 03/11/2008 08/28/2013 INGUINAL HERNIA, BILAT, RECU RRENT W/O GANGRENE/OBSTRUCTION 11/30/2006 08/28/2013 Adjustment disorder with depressed mood 05/16/2005 08/28/2013 Hypothyroidism 09/30/2018 Abdominal pain, unspecified site 08/28/2013 documented as of this encounter (statuses as of 01/26/2023) [facility]02-[facility] History of Past illness Narrative* Problem Noted Date Diagnosed Date Resolved Date Cholecystitis 05/22/2022 10/12/2022 Cholelithiasis without cholangitis 03/29/2022 10/12/2022 Symptomatic cholelithiasis 03/29/2022 0 10/12/2022 Acute stress reaction 09/16/20202022 Recent bereavement 09/16/2020 Chest pain 11/10/2019 11/13/2019 Hospital discharge follow-up 05/14/2019 02/21/2022 Moderate protein-calorie malnutrition 05/06/2019 11/19/2019 Epigastric pain 06/10/2015 06/10/2015 DVT prophylaxis 11/05/2014 02/21/2022 Family history of ischemic heart disease 10/14/2014 11/19/2019 Other symptoms involving dig estive system(787.99) 03/05/2014 03/05/2014 Abdominal pain, right lower quadrant 03/05/2014 03/05/2014 Groin pain 04/23/2013 08/28/2013 DVT (deep venous thrombosis) 10/17/2010 09/30/2018 Ac DVT/embl low ext NOS 08/23/201010/31 Status post inguinal hernia repair 11/23/2009 08/28/2013 Umbilical hernia without men tion of obstruction or gangrene 06/21/2009 08/28/2013 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/12/2008 Unspecified gastritis and ga stroduodenitis without mention of hemorrhage 03/12/2008 08/28/2013 Blood in stool 03/11/2008 08/28/2013 INGUINAL HERNIA, BILAT, RECU RRENT W/O GANGRENE/OBSTRUCTION 11/30/2006 08/28/2013 Adjustment disorder with depressed mood 05/16/2005 08/28/2013 Hypothyroidism 09/30/2018 Abdominal pain, unspecified site 08/28/2013 documented as of this encounter (statuses as of 01/30/2023) [facility]02[facility] History of Past illness Narrative* Problem Noted Date Diagnosed Date Resolved Date Cholecystitis 05/22/2022 10/12/2022 Cholelithiasis without cholangitis 03/29/2022 10/12/2022 Symptomatic cholelithiasis 03/29/2022 0 10/12/2022 Acute stress reaction 09/16/20202022 Recent bereavement 09/16/2020 Chest pain 11/10/2019 11/13/2019 Hospital discharge follow-up 05/14/2019 02/21/2022 Moderate protein-calorie malnutrition 05/06/2019 11/19/2019 Epigastric pain 06/10/2015 06/10/2015 DVT prophylaxis 11/05/2014 02/21/2022 Family history of ischemic heart disease 10/14/2014 11/19/2019 Other symptoms involving dig estive system(787.99) 03/05/2014 03/05/2014 Abdominal pain, right lower quadrant 03/05/2014 03/05/2014 Groin pain 04/23/2013 08/28/2013 DVT (deep venous thrombosis) 10/17/2010 09/30/2018 Ac DVT/embl low ext NOS 08/23/201010/31 Status post inguinal hernia repair 11/23/2009 08/28/2013 Umbilical hernia without men tion of obstruction or gangrene 06/21/2009 08/28/2013 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/12/2008 Unspecified gastritis and ga stroduodenitis without mention of hemorrhage 03/12/2008 08/28/2013 Blood in stool 03/11/2008 08/28/2013 INGUINAL HERNIA, BILAT, RECU RRENT W/O GANGRENE/OBSTRUCTION 11/30/2006 08/28/2013 Adjustment disorder with depressed mood 05/16/2005 08/28/2013 Hypothyroidism 09/30/2018 Abdominal pain, unspecified site 08/28/2013 documented as of this encounter (statuses as of 02/05/2023) [facility] History of Past illness Narrative* Problem Noted Date Diagnosed Date Resolved Date Cholecystitis 05/22/2022 10/12/2022 Cholelithiasis without cholangitis 03/29/2022 10/12/2022 Symptomatic cholelithiasis 03/29/2022 0 10/12/2022 Acute stress reaction 09/16/20202022 Recent bereavement 09/16/2020 Chest pain 11/10/2019 11/13/2019 Hospital discharge follow-up 05/14/2019 02/21/2022 Moderate protein-calorie malnutrition 05/06/2019 11/19/2019 Epigastric pain 06/10/2015 06/10/2015 DVT prophylaxis 11/05/2014 02/21/2022 Family history of ischemic heart disease 10/14/2014 11/19/2019 Other symptoms involving dig estive system(787.99) 03/05/2014 03/05/2014 Abdominal pain, right lower quadrant 03/05/2014 03/05/2014 Groin pain 04/23/2013 08/28/2013 DVT (deep venous thrombosis) 10/17/2010 09/30/2018 Ac DVT/embl low ext NOS 08/23/201010/31 Status post inguinal hernia repair 11/23/2009 08/28/2013 Umbilical hernia without men tion of obstruction or gangrene 06/21/2009 08/28/2013 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/12/2008 Unspecified gastritis and ga stroduodenitis without mention of hemorrhage 03/12/2008 08/28/2013 Blood in stool 03/11/2008 08/28/2013 INGUINAL HERNIA, BILAT, RECU RRENT W/O GANGRENE/OBSTRUCTION 11/30/2006 08/28/2013 Adjustment disorder with depressed mood 05/16/2005 08/28/2013 Hypothyroidism 09/30/2018 Abdominal pain, unspecified site 08/28/2013 documented as of this encounter (statuses as of 02/06/2023) [facility] History of Past illness Narrative* Problem Noted Date Diagnosed Date Resolved Date Cholecystitis 05/22/2022 10/12/2022 Cholelithiasis without cholangitis 03/29/2022 10/12/2022 Symptomatic cholelithiasis 03/29/2022 0 10/12/2022 Acute stress reaction 09/16/20202022 Recent bereavement 09/16/2020 Chest pain 11/10/2019 11/13/2019 Hospital discharge follow-up 05/14/2019 02/21/2022 Moderate protein-calorie malnutrition 05/06/2019 11/19/2019 Epigastric pain 06/10/2015 06/10/2015 DVT prophylaxis 11/05/2014 02/21/2022 Family history of ischemic heart disease 10/14/2014 11/19/2019 Other symptoms involving dig estive system(787.99) 03/05/2014 03/05/2014 Abdominal pain, right lower quadrant 03/05/2014 03/05/2014 Groin pain 04/23/2013 08/28/2013 DVT (deep venous thrombosis) 10/17/2010 09/30/2018 Ac DVT/embl low ext NOS 08/23/201010/31 Status post inguinal hernia repair 11/23/2009 08/28/2013 Umbilical hernia without men tion of obstruction or gangrene 06/21/2009 08/28/2013 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/12/2008 Unspecified gastritis and ga stroduodenitis without mention of hemorrhage 03/12/2008 08/28/2013 Blood in stool 03/11/2008 08/28/2013 INGUINAL HERNIA, BILAT, RECU RRENT W/O GANGRENE/OBSTRUCTION 11/30/2006 08/28/2013 Adjustment disorder with depressed mood 05/16/2005 08/28/2013 Hypothyroidism 09/30/2018 Abdominal pain, unspecified site 08/28/2013 documented as of this encounter (statuses as of 02/11/2023) [facility] History of Past illness Narrative* Problem Noted Date Diagnosed Date Resolved Date Cholecystitis 05/22/2022 10/12/2022 Cholelithiasis without cholangitis 03/29/2022 10/12/2022 Symptomatic cholelithiasis 03/29/2022 0 10/12/2022 Acute stress reaction 09/16/20202022 Recent bereavement 09/16/2020 Chest pain 11/10/2019 11/13/2019 Hospital discharge follow-up 05/14/2019 02/21/2022 Moderate protein-calorie malnutrition 05/06/2019 11/19/2019 Epigastric pain 06/10/2015 06/10/2015 DVT prophylaxis 11/05/2014 02/21/2022 Family history of ischemic heart disease 10/14/2014 11/19/2019 Other symptoms involving dig estive system(787.99) 03/05/2014 03/05/2014 Abdominal pain, right lower quadrant 03/05/2014 03/05/2014 Groin pain 04/23/2013 08/28/2013 DVT (deep venous thrombosis) 10/17/2010 09/30/2018 Ac DVT/embl low ext NOS 08/23/201010/31 Status post inguinal hernia repair 11/23/2009 08/28/2013 Umbilical hernia without men tion of obstruction or gangrene 06/21/2009 08/28/2013 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/12/2008 Unspecified gastritis and ga stroduodenitis without mention of hemorrhage 03/12/2008 08/28/2013 Blood in stool 03/11/2008 08/28/2013 INGUINAL HERNIA, BILAT, RECU RRENT W/O GANGRENE/OBSTRUCTION 11/30/2006 08/28/2013 Adjustment disorder with depressed mood 05/16/2005 08/28/2013 Hypothyroidism 09/30/2018 Abdominal pain, unspecified site 08/28/2013 documented as of this encounter (statuses as of 02/24/2023) [facility] History of Past illness Narrative* Problem Noted Date Diagnosed Date Resolved Date Cholecystitis 05/22/2022 10/12/2022 Cholelithiasis without cholangitis 03/29/2022 10/12/2022 Symptomatic cholelithiasis 03/29/2022 0 10/12/2022 Acute stress reaction 09/16/20202022 Recent bereavement 09/16/2020 3 Chest pain 11/10/2019 11/13/2019 Hospital discharge follow-up 05/14/2019 02/21/2022 Moderate protein-calorie malnutrition 05/06/2019 11/19/2019 Epigastric pain 06/10/2015 06/10/2015 DVT prophylaxis 11/05/2014 02/21/2022 Family history of ischemic heart disease 10/14/2014 11/19/2019 Other symptoms involving dig estive system(787.99) 03/05/2014 03/05/2014 Abdominal pain, right lower quadrant 03/05/2014 03/05/2014 Groin pain 04/23/2013 08/28/2013 DVT (deep venous thrombosis) 10/17/2010 09/30/2018 Ac DVT/embl low ext NOS 08/23/201010/31 Status post inguinal hernia repair 11/23/2009 08/28/2013 Umbilical hernia without men tion of obstruction or gangrene 06/21/2009 08/28/2013 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/12/2008 Unspecified gastritis and ga stroduodenitis without mention of hemorrhage 03/12/2008 08/28/2013 Blood in stool 03/11/2008 08/28/2013 INGUINAL HERNIA, BILAT, RECU RRENT W/O GANGRENE/OBSTRUCTION 11/30/2006 08/28/2013 Adjustment disorder with depressed mood 05/16/2005 08/28/2013 Hypothyroidism 09/30/2018 Abdominal pain, unspecified site 08/28/2013 documented as of this encounter (statuses as of 03/10/2023) [facility] History of Past illness Narrative* Problem Noted Date Diagnosed Date Resolved Date Cholecystitis 05/22/2022 10/12/2022 Cholelithiasis without cholangitis 03/29/2022 10/12/2022 Symptomatic cholelithiasis 03/29/2022 0 10/12/2022 Acute stress reaction 09/16/20202022 Recent bereavement 09/16/2020 3 Chest pain 11/10/2019 11/13/2019 Hospital discharge follow-up 05/14/2019 02/21/2022 Moderate protein-calorie malnutrition 05/06/2019 11/19/2019 Epigastric pain 06/10/2015 06/10/2015 DVT prophylaxis 11/05/2014 02/21/2022 Family history of ischemic heart disease 10/14/2014 11/19/2019 Other symptoms involving dig estive system(787.99) 03/05/2014 03/05/2014 Abdominal pain, right lower quadrant 03/05/2014 03/05/2014 Groin pain 04/23/2013 08/28/2013 DVT (deep venous thrombosis) 10/17/2010 09/30/2018 Ac DVT/embl low ext NOS 08/23/201010/31 Status post inguinal hernia repair 11/23/2009 08/28/2013 Umbilical hernia without men tion of obstruction or gangrene 06/21/2009 08/28/2013 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/12/2008 Unspecified gastritis and ga stroduodenitis without mention of hemorrhage 03/12/2008 08/28/2013 Blood in stool 03/11/2008 08/28/2013 INGUINAL HERNIA, BILAT, RECU RRENT W/O GANGRENE/OBSTRUCTION 11/30/2006 08/28/2013 Adjustment disorder with depressed mood 05/16/2005 08/28/2013 Hypothyroidism 09/30/2018 Abdominal pain, unspecified site 08/28/2013 documented as of this encounter (statuses as of 03/16/2023) [facility]02-13-2023 NotePatient Outreach ([facility]) YRIS VILLAGOMEZ ([id number]) 1940 F Date Time Provider Department 05/15/22 DIANE ALCALA During your visit today, we recorded the following information about you: Diane Alcala RN 05/15/2022 10:12 AM Signed INSIGHT CDM TELEPHONIC OUTREACH Provider Action/FYI: CDM: CKD, CHF Pt denies fever or chills, surgical site without infection tolerating a diet and hydrating well, using ensure, wt 132 lbs Pt reports used Tramadol at night for surgical discomfort which assisted her to sleep better Routed Request for Tramadol in other encounter Pt denies any new or worsening symptoms, instructed to call PCP with any changes in condition. Contact made with patient: Yes Patient identified by name and . Discussed care with patient It?s nice talking to you again. As a reminder, this is our bi-weekly check-in where I will be asking you questions about your health. This will only take a few minutes of your time. Is this a good time? Yes Symptoms What Chronic Disease(s) does the patient have: CHF and CKD Do you check your blood pressures at home? Yes, Enter readings: Not taken Do you have new or worse shortness of breath with activity? No Do you have new or worsening trouble breathing while lying flat? No Do you have new or worsening swelling of legs, feet or ankles? No Do you feel like you are dehydrated for any reason, including not being able to eat or drink normally, or having less urine/much darker urine than normal for you? No Do you check your daily weight at home? Yes, Have you noticed a sudden gain in weight greater than three pounds in a day or three pounds in a week? No Are you having any other symptoms that your PCP needs to know about? No Symptoms: Symptom Escalation YOU[employer] Education Ordered -: No The patient required an escalation for symptom(s)? No Medications Do you have any questions about taking your medication or which medications you should be on? No Do you need any medication refills at this time, including any of the medications you might take only when needed? Yes Social We would like to make sure you have what you need so that your basic needs are met- including your personal safety, food, housing, transportation and medications? Would you like to speak with a social work child study team director to help give you support for any of these needs? No It can be normal to feel anxious or down during a time like this. Would you like to talk to a mental health professional about how you have been feeling? No Closing Thank you for taking the time to talk with me today. We want to work with you to ensure that we are keeping your medical condition(s) well-controlled and to keep you healthy and out of the doctor's office or hospital. It?s also not too late for me to sign you up for automated weekly questionnaires through [employer]. This is an easy way for us to stay connected each week. Are you interested? No, I understand. We can always sign you up in the future if you change your mind. Just as a reminder, will continue to call you every other week to check in on your health. Our calls should take 10-15 minutes or less. Remember, if you have concerns in between our calls, please call your PCP's office right away. Thank you. Enter next patient outreach date for two weeks on the same day of the week as today in the Track Pt Outreach and End outreach. 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 - ZINC ORAL Take by mouth once daily. - cholecalciferol, vitamin D3, (VITAMIN D3 ORAL) Take by mouth once daily. - torsemide (DEMADEX) 10 mg tablet Take 2 tablets by mouth once daily. - tafamidis (VYNDAMAX) 61 mg Take 1 capsule by mouth once daily. - enoxaparin (LOVENOX) 60 mg/0.6 mL syrg Inject 0.6 mL subcutaneously once daily. - traMADol (ULTRAM) 50 mg tablet Take 1 tablet by mouth every 6 hours as needed for up to 99 days. - rosuvastatin (CRESTOR) 5 mg tablet Take 1 tablet by mouth once daily. - levothyroxine (SYNTHROID) 88 mcg tablet Take 1 tablet by mouth once daily. - INV [id number] 150 MG/ML OR PLACEBO INJECTION (IRB 20-) Inject 0.3 mL subcutaneously every 4 weeks. For Investigational Drug Use Only. PI: Evi Zamora MD. Inject 0.3 mL subcutaneously every 4 weeks. EXP: 2 hours at room temp. Protect from light. - vitamin A (AQUASOL A) 10,000 unit capsule Take 10,000 Units by mouth Every 3 Days. - aspiri (more content not included)...[facility]02-13-2023 Note Patient Outreach ([facility]) YRIS VILLAGOMEZ ([id number]) 1940 F Date Time Provider Department 05/15/22 DIANE ALCALA During your visit today, we recorded the following information about you: Diane Alcala RN 05/26/2022 4:04 PM Signed Patient requesting refills as follows: Office staff, Please contact Pt directly with any advisement Requested Prescriptions Pending Prescriptions Disp Refills traMADol (ULTRAM) 50 mg tablet 28 tablet 0 Sig: Take 1 tablet by mouth every 6 hours as needed for up to 99 days. 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 - metoprolol succinate ER (TOPROL XL) 25 mg 24 hr tablet Take 0.5 tablets by mouth once daily. - traMADol (ULTRAM) 50 mg tablet Take 1 tablet by mouth every 6 hours as needed for up to 99 days. - acetaminophen (TYLENOL EXTRA STRENGTH) 500 mg tablet Take 2 tablets by mouth every 6 hours as needed for pain. - ZINC ORAL Take by mouth once daily. - cholecalciferol, vitamin D3, (VITAMIN D3 ORAL) Take by mouth once daily. - torsemide (DEMADEX) 10 mg tablet Take 2 tablets by mouth once daily. - tafamidis (VYNDAMAX) 61 mg Take 1 capsule by mouth once daily. - enoxaparin (LOVENOX) 60 mg/0.6 mL syrg Inject 0.6 mL subcutaneously once daily. - levothyroxine (SYNTHROID) 88 mcg tablet Take 1 tablet by mouth once daily. - vitamin A (AQUASOL A) 10,000 unit capsule Take 10,000 Units by mouth Every 3 Days. - aspirin, enteric coated (ASPIRIN, ENTERIC COATED) 81 mg EC tablet Take 1 tablet by mouth once daily. - polyethylene glycol 3350 (MIRALAX, GLYCOLAX) 17 gram/dose powder as needed. One capful with a full glass of water, 2-3 times a day Or as directed Facility-Administered Medications as of 05/26/2022 - perflutren lipid microspheres 1.3 mL in NaCl (PF) 0.9% 10 mL injection (DEFINITY) - sodium chloride 0.9 % (flush) 10 mL (BD POSIFLUSH) - perflutren lipid microspheres 1.3 mL in NaCl (PF) 0.9% 10 mL injection (DEFINITY) - sodium chloride 0.9 % (flush) 10 mL (BD POSIFLUSH) Problem List As Of Date 05/15/2022 Noted Resolved Mixed hyperlipidemia [E78.2] Essential hypertension [I10] Hypothyroidism [E03.9] 09/30/2018 INSOMNIA NOS [G47.00] 05/16/2005 Adjustment disorder with depressed mood [F43.21]05/16/2005 08/28/2013 Abdominal pain, unspecified site [R10.9] 08/28/2013 INGUINAL HERNIA, BILAT, RECURRENT W/O GANGRENE/*11/30/2006 08/28/2013 Blood in stool [K92.1] 03/11/2008 08/28/2013 Benign neoplasm of colon [D12.6] 03/12/2008 08/28/2013 Unspecified gastritis and gastroduodenitis with*03/12/2008 08/28/2013 DIVERTICULOSIS OF COLON W/O BLEED [K57.30] 03/12/2008 Umbilical hernia without mention of obstruction*06/21/2009 08/28/2013 Pulmonary embolism (HCC) [I26.99] 08/26/2009 08/28/2013 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 Status post inguinal hernia repair [Z98.890, Z8*11/23/2009 08/28/2013 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] 12/02/2009 Ac DVT/embl low ext NOS [I82.409] 08/23/2010 11/19/2019 DVT (deep venous thrombosis) (HCC) [I82.409] 10/17/2010 09/30/2018 Groin pain [R10.30] 04/23/2013 08/28/2013 Other symptoms involving digestive system(787.9*03/05/2014 03/05/2014 Abdominal pain, right lower quadrant [R10.31] 03/05/2014 03/05/2014 Chronic abdominal pain [R10.9, G89.29] 05/29/2014 Family history of ischemic heart disease [Z82.4*10/14/2014 11/19/2019 Mixed incontinence [N39.46] 10/27/2014 DVT prophylaxis [Z79.899] 11/05/2014 02/21/2022 History of DVT of lower extremity [Z86.718] 11/05/2014 History of pulmonary embolism [Z86.711] 11/05/2014 S/P IVC filter [Z95.828] 11/06/2014 History of pubovaginal sling [Z96.0] 11/06/2014 Acquired hypothyroidism [E03.9] 02/19/2015 Epigastric pain [R10.13] 06/10/2015 06/10/2015 IBS (irritable bowel syndrome) [K58.9] 01/27/2016 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*02/07/2016 Chronic anticoagulation [Z79.01] 04/17/2016 Chronic kidney disease (CKD), stage III (modera*07/27/2016 Gastroesophageal reflux disease [K21.9] 09/11/2017 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 Author Type: Registered Nurse Type: Progress Notes Filed: 05/26/2022 4:04 PM Note Text: Patient requesting refills as follows: Office staff, Please contact Pt directly with any advisement Requested Prescriptions Pending Prescriptions Disp Refills traMADol (ULTRAM) 50 mg tablet 28 tablet 0 Sig: Take 1 tablet by mouth every 6 hours as needed for up to 99 days. Diane Alcala RN May 15, 2022 10:04 [facility]02-13-2023 NoteHNO ID: [id number] Author: Diane Alcala RN Service: ? Author Type: Registered Nurse Type: Progress Notes Filed: 05/15/2022 10:12 AM Note Text: INSIGHT CDM TELEPHONIC OUTREACH Provider Action/FYI: CDM: CKD, CHF Pt denies fever or chills, surgical site without infection tolerating a diet and hydrating well, using ensure, wt 132 lbs Pt reports used Tramadol at night for surgical discomfort which assisted her to sleep better Routed Request for Tramadol in other encounter Pt denies any new or worsening symptoms, instructed to call PCP with any changes in condition. Contact made with patient: Yes Patient identified by name and . Discussed care with patient It?s nice talking to you again. As a reminder, this is our bi-weekly check-in where I will be asking you questions about your health. This will only take a few minutes of your time. Is this a good time? Yes Symptoms What Chronic Disease(s) does the patient have: CHF and CKD Do you check your blood pressures at home? Yes, Enter readings: Not taken Do you have new or worse shortness of breath with activity? No Do you have new or worsening trouble breathing while lying flat? No Do you have new or worsening swelling of legs, feet or ankles? No Do you feel like you are dehydrated for any reason, including not being able to eat or drink normally, or having less urine/much darker urine than normal for you? No Do you check your daily weight at home? Yes, Have you noticed a sudden gain in weight greater than three pounds in a day or three pounds in a week? No Are you having any other symptoms that your PCP needs to know about? No Symptoms: Symptom Escalation YOUNG Education Ordered -: No The patient required an escalation for symptom(s)? No Medications Do you have any questions about taking your medication or which medications you should be on? No Do you need any medication refills at this time, including any of the medications you might take only when needed? Yes Social We would like to make sure you have what you need so that your basic needs are met- including your personal safety, food, housing, transportation and medications? Would you like to speak with a social work child study team director to help give you support for any of these needs? No It can be normal to feel anxious or down during a time like this. Would you like to talk to a mental health professional about how you have been feeling? No Closing Thank you for taking the time to talk with me today. We want to work with you to ensure that we are keeping your medical condition(s) well-controlled and to keep you healthy and out of the doctor's office or hospital. It?s also not too late for me to sign you up for automated weekly questionnaires through [employer]. This is an easy way for us to stay connected each week. Are you interested? No, I understand. We can always sign you up in the future if you change your mind. Just as a reminder, will continue to call you every other week to check in on your health. Our calls should take 10-15 minutes or less. Remember, if you have concerns in between our calls, please call your PCP's office right away. Thank you. Enter next patient outreach date for two weeks on the same day of the week as today in the Track Pt Outreach and End outreach. Diane Alcala RN May 15, 2022 9:49 [facility]02-13-2023 History of Present illness Narrative* Diane Alcala RN - 05/15/2022 10:04 AM EST Patient requesting refills as follows: Office staff, Please contact Pt directly with any advisement Requested Prescriptions Pending Prescriptions Disp Refills traMADol (ULTRAM) 50 mg tablet 28 tablet 0 Sig: Take 1 tablet by mouth every 6 hours as needed for up to 99 days. Diane Alcala RN May 15, 2022 10:04 AM documented [facility] encounter[facility] History of Present illness Narrative* Diane Alcala RN - 05/15/2022 9:49 AM EST INSIGHT CDM TELEPHONIC OUTREACH Provider Action/FYI: CDM: CKD, CHF Pt denies fever or chills, surgical site without infection tolerating a diet and hydrating well, using ensure, wt 132 lbs Pt reports used Tramadol at night for surgical discomfort which assisted her to sleep better Routed Request for Tramadol in other encounter Pt denies any new or worsening symptoms, instructed to call PCP with any changes in condition. Contact made with patient: Yes Patient identified by name and . Discussed care with patient It s nice talking to you again. As a reminder, this is our bi-weekly check-in where I will be asking you questions about your health. This will only take a few minutes of your time. Is this a good time? Yes Symptoms What Chronic Disease(s) does the patient have: CHF and CKD Do you check your blood pressures at home? Yes, Enter readings: Not taken Do you have new or worse shortness of breath with activity? No Do you have new or worsening trouble breathing while lying flat? No Do you have new or worsening swelling of legs, feet or ankles? No Do you feel like you are dehydrated for any reason, including not being able to eat or drink normally, or having less urine/much darker urine than normal for you? No Do you check your daily weight at home? Yes, Have you noticed a sudden gain in weight greater than three pounds in a day or three pounds in a week? No Are you having any other symptoms that your PCP needs to know about? No Symptoms: Symptom Escalation YOUNG Education Ordered -: No The patient required an escalation for symptom(s)? No Medications Do you have any questions about taking your medication or which medications you should be on? No Do you need any medication refills at this time, including any of the medications you might take only when needed? Yes Social We would like to make sure you have what you need so that your basic needs are met- including your personal safety, food, housing, transportation and medications? Would you like to speak with a social work child study team director to help give you support for any of these needs? No It can be normal to feel anxious or down during a time like this. Would you like to talk to a mental health professional about how you have been feeling? No Closing Thank you for taking the time to talk with me today. We want to work with you to ensure that we arekeeping your medical condition(s) well-controlled and to keep you healthy and out of the doctor's office or hospital. It s also not too late for me to sign you up for automated weekly questionnaires through [employer]. This is an easy way for us to stay connected each week. Are you interested? No, I understand. We can always sign you up in the future if you change your mind. Just as a reminder, will continue to call you every other week to check in on your health. Our calls should take 10-15 minutes or less. Remember, if you have concerns in between our calls, please call your PCP's office right away. Thank you. Enter next patient outreach date for two weeks on the same day of the week as today in the Track PtOutreach and End outreach. Diane Alcala RN May 15, 2022 9:49 AM documented in this encounterAk[facility] History of Present illness Narrative* Aneesh Kaplan MD - 04/18/2022 10:00 AM EST VIRTUAL VISIT FOLLOW UP I had a virtual visit with Ms. Villagomez today for follow up of recent laparoscopic cholecystectomy. She was unable to connect to the video platform. UPDATED HISTORY: Yris Villagomez is a 81 year old female who underwent a laparoscopic cholecystectomy with cholangiogram on 03/29/2022, and was discharged on 03/31/2022. She was evaluated by Mario Fermin on 04/07 for ongoing abdominal pain. Laboratory evaluation at that point showed normal LFTs. A CT scan was also obtained, which was relatively normal. They did note that there was a nodular focus in the gallbladder fossa, which on review I believe is the self-retaining polymer clips. She has improved quite a bit over the past 3-4 days in terms of both pain and activity levels. Bladder catheter has been removed successfully. She has resumed her anticoagulation as well with no symptoms to suggest bleeding Diet: back to baseline Bowel movements: back to preop baseline Pain: Patient was discharged with a total of 5 oxycodone tablets, she used all 5. She reports usingno additional pain medications. She had been using acetaminophen, but has not used anything in two days. 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 Overall this is consistent with chroniccholecystitis due to gallstones. PHYSICAL FINDINGS OF NOTE: N/a - telephone visit Medical Decision Making: Assessment Assessment & Diagnosis: Yris Villagomez is a 81 year old female status post laparoscopic colectomy with intraoperative cholangiogram Data Reviewed: Tests & Documents Reviewed/ordered: Review of Pathology I have independently interpreted: CT Abdomen, CT Pelvis I have discussed Yris Villagomez's treatment plan and/or results with the patient. Treatment plan: - Continues to recover well - Lifting restriction 15lbs for a total of 4 weeks post operatively - follow up PRN Risk of morbidity, mortality and/or complications of treatment plan: low I spent a total of 15 minutes on the date of the service Aneesh Kaplan MD 04/18/2022 7:38 AM documented in this encounterAk[facility]01[facility]11-[facility] History of Present illness Narrative* Diane Alcala RN - 04/12/2022 2:06 PM EST INSIGHT CDM TELEPHONIC OUTREACH Provider Action/FYI: Routed to Nuvia Grissom CNP, Pt wanted to express her appreciation for the Care provided 03/29/22-03/31/23 [facility]: Dx: Cholelithiasis without cholangitis, Pt underwent a Laparoscopic cholecystectomy with intra-operative cholangiogram Pt denies Nausea, vomiting, tolerating diet, appetite improved.wt 129 lbs Denies fever or chills Britton D/C'd 04/11/22 urinating without difficulty light yellow urine, Abd Incision sites without redness or drainage Pt denies CHF/ CKD symptoms, or needs. Instructed to call PCP with any changes in condition Pt verbalized understanding and appreciation for call Contact made with patient: Yes Patient identified by name and . Discussed care with patient It s nice talking to you again. As a reminder, this is our bi-weekly check-in where I will be asking you questions about your health. This will only take a few minutes of your time. Is this a good time? Yes Symptoms What Chronic Disease(s) does the patient have: CHF and CKD Do you check your blood pressures at home? Yes, Enter readings: Not taken Do you have new or worse shortness of breath with activity? No Do you have new or worsening trouble breathing while lying flat? No Do you have new or worsening swelling of legs, feet or ankles? No Do you feel like you are dehydrated for any reason, including not being able to eat or drink normally, or having less urine/much darker urine than normal for you? No Do you check your daily weight at home? Yes, Have you noticed a sudden gain in weight greater than three pounds in a day or three pounds in a week? No Are you having any other symptoms that your PCP needs to know about? No Symptoms: N/A Symptom Escalation YOUNG Education Ordered -: No The patient required an escalation for symptom(s)? No Medications Do you have any questions about taking your medication or which medications you should be on? No Do you need any medication refills at this time, including any of the medications you might take only when needed? No Social We would like to make sure you have what you need so that your basic needs are met- including your personal safety, food, housing and medications? Would you like to speak with a social work child study team director to help give you support for any of these needs? No It can be normal to feel anxious or down during a time like this. Would you like to talk to a mental health professional about how you have been feeling? No Closing Thank you for taking the time to talk with me today. We want to work with you to ensure that we arekeeping your medical condition(s) well-controlled and to keep you healthy and out of the doctor's office or hospital. It s also not too late for me to sign you up for automated weekly questionnaires through [employer]. This is an easy way for us to stay connected each week. Are you interested? No, I understand. We can always sign you up in the future if you change your mind. Just as a reminder, will continue to call you every other week to check in on your health. Our calls should take 10-15 minutes or less. Remember, if you have concerns in between our calls, please call your PCP's office right away. Thank you. Enter next patient outreach date for two weeks on the same day of the week as today in the Track PtOutreach and End outreach. Diane Alcala RN April 12, 2022 2:06 PM documented in this encounterAkron [facility]01-10-2023 History of Present illness Narrative* Mame Ruelas LPN - 04/11/2022 9:23 AM EST Verified name and date of . CC Trial of Void HPI: Yris Villagomez is a 81 year old female. [address] The patient is here now for a TOV and britton catheter removal after seeing Saurav Yo PA-C for appointemnt. Procedure: Perform a TOV. Bladder filled through britton with 200 mL of sterile water removed fluid from balloonand the britton was removed with catheter intact and patient voided 200 mL. Patient was able to empty her bladder on own without straining. The indwelling britton was removed without difficulty. The patient tolerated the procedure well. Assessment/Plan: > Britton catheter removal with TOV. > Successful britton catheter removal. RTC if unable to urinate on her own. Mame Ruelas LPN documented in this encounterAkron [facility]01-06-2023 History of Present illness Narrative* Mame Vera RT(Shane) - 04/07/2022 2:20 PM EST Radiology Service Progress Note PATIENT NAME: Yris Villagomez DATE OF SERVICE: April 07, 2022 TIME: 3:00 PM PATIENT IDENTITY VERIFICATION COMPLETED USING TWO (2) IDENTIFIERS: Name and Date of confirmedby patient verbally. FALL SCREENING: Has the patient had 2 falls in the last year or 1 fall with injury or currently using an Ambulatory Assistive Device (Walker, Cane, Wheelchair, Crutches, etc.)? No PATIENT GENDER DATA: Female. status: : No status: NO. PATIENT RELEVANT IMPLANT DATA REVIEWED: Yes RADIOLOGY DEPARTMENT: CT; Exam(s) Completed: Abdomen/Pelvis PERIPHERAL IV DATA: Not applicable SIGNED BY: RT Morales(R) April 07, 2022 3:00 PM documented in this encounterAkron [facility]01-06-2023 History of Present illness Narrative* Mario Fermin PA-C - 04/07/2022 10:23 AM EST HISTORY AND PHYSICAL EXAMINATION SERVICE DATE: 04/07/2022 SERVICE TIME: PRIMARY CARE PHYSICIAN: Gab Pisano MD Subjective CHIEF COMPLAINT: post surgical follow up HPI: This is a 81 year old female who presents for out patient evaluation she is status post Laparoscopic cholecystectomy with intra-operative cholangiogram 03/31/2022 She presents out patient clinicfor evaluation of right sided abdominal pain with radiation to back FUNCTIONAL STATUS: Independent 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/12/2008 Chest pain Chronic kidney disease (CKD), stage III (moderate) (HCC) 07/27/2016 Coronary artery disease due to calcified coronary lesion 06/22/2021 Diverticulitis Diverticulosis of colon (without mention of hemorrhage) Diverticulosis of colon with hemorrhage DVT (deep venous thrombosis) (HCC) After knee surgery Dysmetabolic syndrome X Hemorrhage of gastrointestinal tract, unspecified Hernia of other specified sites of abdominal cavity without mention of obstruction or gangrene 2006 Patient has 2 or 3 hernias at abdomen and groin Internal hemorrhoids without mention of complication Other and unspecified hyperlipidemia PE (pulmonary embolism) after hernia surgery Umbilical hernia 07/22/2009 Unspecified essential hypertension Unspecified gastritis and gastroduodenitis 03/12/2008 Unspecified hypothyroidism PAST SURGICAL HISTORY Procedure Laterality Date ARTHRP ACETBLR/PROX FEM PROSTC AGRFT/ALGRFT 2002 Hip replacement, total, left ARTHRP ACETBLR/PROX FEM PROSTC AGRFT/ALGRFT 2002 left hip COLONOSCOPY FLX DX W/COLLJ SPEC WHEN PFRMD 09/15/1998 Colonoscopy COLONOSCOPY FLX DX W/COLLJ SPEC WHEN PFRMD 08/07/2005 Colonoscopy COLONOSCOPY FLX DX W/COLLJ SPEC [facility] COLONOSCOPY FLX DX W/COLLJ SPEC WHEN PFRMD 03/05/14 Colonoscopy COLSC FLX W/REMOVAL LESION BY HOT BX FORCEPS 03/12/08 EGD TRANSORAL BIOPSY SINGLE/MULTIPLE 03/12/08 EGD TRANSORAL BIOPSY SINGLE/MULTIPLE 09-30-12 ESOPHAGOGASTRODUODENOSCOPY TRANSORAL DIAGNOSTIC 06/10/2015 EGD HYSTERECTOMY, REVISE VAGINA; COLPECTOMY 1980 Hysterectomy with bladder repair still ovaries ARTEAGA W/O FACETEC FORAMOT/DSC 04/03 VRT SGM CRV 2001 Discectomy and fusion, cervical LAPS SURG RPR RECURRENT INGUINAL HERNIA 07/22/2009 LIGJ DIVJ &/EXCJ VARICOSE VEIN CLUSTER 1 LEG 1985 Varicose Vein Surgery PAST SURGICAL HISTORY OF 2001 cervical spine repair PAST SURGICAL HISTORY OF 11/04/14 cystocele RPR 1ST INGUN HRNA AGE 5 YRS/> REDUCIBLE 1980 Hernia repair, inguinal RPR 1ST INGUN HRNA AGE 5 YRS/> REDUCIBLE 1980 Hernia repair, inguinal, bilateral RPR UMBILICAL HRNA 5 YRS/> REDUCIBLE 07/22/2009 THYROIDECTOMY TOTAL/COMPLETE 1994 TONSILLECTOMY AND ADENOIDECTOMY HX 1968 TONSILLECTOMY PRIMARY/SECONDARY <AGE 12 Tonsillectomy X-RAY PLACEMENT, VEIN FILTER 08/13/2009 FAMILY HISTORY Problem Relation Age of Onset Coronary Artery Disease Mother 83, CVA Colon Cancer Mother Coronary Artery Disease Father [place] 45 Cancer Brother multiple myeloma None Daughter None Daughter other (heart attack) Son other (fibramyalgia) Son other (blood clots in lungs) Son Social History Tobacco Use Smoking status: Never Smokeless tobacco: Never Vaping Use Vaping Use: Never used Substance Use Topics Alcohol use: No Drug use: No (Not in a hospital admission) ALLERGIES Allergen Reactions Iodine Hives COMPLETE REVIEW OF SYSTEMS: As per HPI Objective PHYSICAL EXAM: Physical Exam Performed: GENERAL: Alert, no distress, cooperative Abdomen right flank and right upper abdominal tenderness, 5 mm port site with surrounding ecchymosis. Tender with palpation, BP 135/78 Pulse 75 Ht 5' 5 (1.65m) Wt 133 lb (60.3kg) BMI 22.13 kg/(m^2). DATA: Diagnostic tests reviewed for today's visit: Most recent labs and imaging results. Assessment/Plan 1) CMP, CBC 2) CT scan abdomen/pelvis check Scr IV contrast, likely abdominal wall hematoma r/o acute intra abdominal process 3) abdominal binder 4) patient updated regarding labs and IV CT scan order SIGNATURE: Mario Fermin PA-C PATIENT NAME: Yris Villagomez DATE: April 07, 2022 TIME: 10:51 AM documented in this encounterAkron [facility]01-05-2023 Miscellaneous Notes* Telephone Encounter - Bhumika Bean - 04/06/2022 9:02 AM EST Patient had surgery on 03/29/22 has been in pain since discharge. Level 10. Very black and blue at incision site. Please call her to discuss. documented in this encounterAkron [facility]01-03-2023 History of Present illness Narrative* Bridget Motta RN - 04/04/2022 12:43 PM EST TRANSITIONAL CARE MANAGEMENT (TCM) COMMUNITY MONITORING PROGRAM Provider Action/FYI: TCM INITIAL OUTREACH ELIGIBLE FOR TCM THROUGH 04/1404-05-2021 - [facility] Cholelithiasis without cholangitis You were known to have gallstones came to the hospital underwent laparoscopic cholecystectomy on 03/29/2022 OPERATIONS DURING HOSPITALIZATION: Laparoscopic cholecystectomy with intra- operative cholangiogram INCISION SITE - LEAD CLINICAL RESEARCH COORDINATOR NO REDNESS, SWELLING OR DRAINAGE BRITTON - DARK - ADVISED TO INCREASE WATER INTAKE PAIN - 2/10 SOB - NO FEVER/CHILLS - NO NAUSEA/VOMITING - NO SUMMARY: Pt discharged from [facility] on 03-31-2022. Admitted for: To undergo planned elective surgery Contact made with patient: Yes Hi my name is Bridget Motta RN and I am calling from the [facility] on behalf of your PCP, Gab Pisano MD I understand you were recently in the hospital so I am calling to check in with you to ensure you are feeling well now that you're home. May I ask you a few questions related to your hospital stay and well-being? Yes Contact with patient post discharge, spoke to patient. Patient identified by name and . Do you feel your health is BETTER, WORSE, or the SAME since leaving the hospital? Better ACTION TAKEN: Patient indicated symptoms are better or same, no action required. Continue outreach. MEDICATIONS: Many patients have questions or concerns about their medications once they are home. Do you have any questions about taking your medications or which medication you should be on? No Do you need any medication refills at this time, including any of the medications you might take only when needed? No ACTION TAKEN: No action required For RNs or Pharmacy completing outreach ONLY, was a medication review completed? Yes SOCIAL: We would like to make sure you have what you need so that your basics needs are met - including your personal safety, food, housing and medications. Would you like to speak with a social work child study team director to help give you support for any of these needs? No It can be normal to feel anxious or down during a time like this. Would you like to talk to a mental health professional about how you have been feeling? No ACTION TAKEN: No action taken DISCHARGE INTRUCTIONS: Your discharge instructions / After Visit Summary (AVS) are important in guiding you through the recovery process. Do you have any questions related to your discharge instructions? No Do you have all the necessary equipment and supplies at home? Yes ACTION TAKEN: No action required I would like to help you schedule a hospital follow-up virtual or telephone visit with your PCP. This is a great way for you to connect with your provider to ensure you have safely transitioned home.If you are agreeable, I will send your request to a dental scheduler who will contact and assist you with that appointment. This will give you an opportunity to ask any questions or address any concerns youmay have with your PCP. Inform the patient that if they have any questions or concerns prior to that appointment, to call their PCP's office right away. ACTION TAKEN: No action required, patient already has an appointment scheduled. Your doctor would like us to remind you of the recommendations regarding the coronavirus (Covid19) outbreak: Avoid public places as much as possible. Avoid close contact (within 6 feet) with others you don t live with, especially if they are sick. Stay home if you are sick. Wash your hands regularly for at least 20 seconds with soap and water. Wear a cloth mask in public places to help reduce community spread. Do not go to your Doctor s office unless instructed to do so. For any non- emergency symptoms, call your Doctor s office to get instructions on how to manage (we might recommend a telephone or virtualvisit). For emergency symptoms, proceed to Emergency Department as usual but inform them of cough and fever symptoms SLIM if present (or call on the way if possible). YOU[employer] Education Ordered -: No TCM Home Visit Referral Source of Stratification: [facility] Admission Status: Discharged Readmission Risk Score: 9 LAKSHMI Score: 6 Patient meets program referral criteria: No Patient does not qualify for High Risk TCM Home Visit program due to: Discharged home, does not meet program criteria Bridget Motta RN April 04, 2022 1:05 PM documented in this encounterAkron [facility]12[facility]22 Miscellaneous Notes* Telephone Encounter - Edita Bermudez RN - 03/31/2022 4:58 PM EST Patient updated and there are no appts available next week with Dr. Pisano or Nuvia Grissom or any INT MED providers next week and pt needs urinary catheter removed by next week. Appt made with Inna Tate CNP for 04/05/21. Will send this message to Inna to see if she can do this for patient. Please call patient to verify that she can keep this appt for bladder flush and urinary catheter removal. (See note below) Edita Bermudez RN * Telephone Encounter - Nuvia Grissom APRN.CNP - 03/31/2022 3:16 PM EST Yes we should be able to do this. Please let patient know and assist with scheduling. Thank you Nuvia Grissom APRN.SHEEP CLIPPER * Telephone Encounter - Edita Bermudez RN - 03/31/2022 2:54 PM EST Patient calling and reports she had gallbladder surgery on 03/29/[address] Kaplan at [facility]. She states she currently has a urinary catheter in and Dr. Kalpan's office advised pt to speak with PCP office to see if catheter can be removed by PCP sometime next week. Pt asking if PCP office can remove her catheter next week? She also states Dr. Kaplan's office saidher bladder needed filled or back flushed before catheter removed. She has a virtual F/U scheduled with Dr. Kaplan on 04/18/22. Please advise patient. Thank you. documented in this encounterAkron Children'[facility]12-28-2022 History of Past illness Narrative* Problem Noted Date Diagnosed Date Resolved Date Cholelithiasis without cholangitis 03/29/2022 10/12/2022 Symptomatic cholelithiasis 03/29/2022 0 10/12/2022 Acute stress reaction 09/16/20202022 Recent bereavement 09/16/2020 3 Chest pain 11/10/2019 11/13/2019 Hospital discharge follow-up 05/14/2019 02/21/2022 Moderate protein-calorie malnutrition 05/06/2019 11/19/2019 Epigastric pain 06/10/2015 06/10/2015 DVT prophylaxis 11/05/2014 02/21/2022 Family history of ischemic heart disease 10/14/2014 11/19/2019 Other symptoms involving dig estive system(787.99) 03/05/2014 03/05/2014 Abdominal pain, right lower quadrant 03/05/2014 03/05/2014 Groin pain 04/23/2013 08/28/2013 DVT (deep venous thrombosis) 10/17/2010 09/30/2018 Ac DVT/embl low ext NOS 08/23/201010/31 Status post inguinal hernia repair 11/23/2009 08/28/2013 Umbilical hernia without men tion of obstruction or gangrene 06/21/2009 08/28/2013 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/12/2008 Unspecified gastritis and ga stroduodenitis without mention of hemorrhage 03/12/2008 08/28/2013 Blood in stool 03/11/2008 08/28/2013 INGUINAL HERNIA, BILAT, RECU RRENT W/O GANGRENE/OBSTRUCTION 11/30/2006 08/28/2013 Adjustment disorder with depressed mood 05/16/2005 08/28/2013 Hypothyroidism 09/30/2018 Abdominal pain, unspecified site 08/28/2013 documented as of this encounter (statuses as of 02/04/2023) [facility] History of Past illness Narrative* Problem Noted Date Diagnosed Date Resolved Date Cholelithiasis without cholangitis 03/29/2022 10/12/2022 Symptomatic cholelithiasis 03/29/2022 0 10/12/2022 Acute stress reaction 09/16/20202022 Recent bereavement 09/16/2020 Chest pain 11/10/2019 11/13/2019 Hospital discharge follow-up 05/14/2019 02/21/2022 Moderate protein-calorie malnutrition 05/06/2019 11/19/2019 Epigastric pain 06/10/2015 06/10/2015 DVT prophylaxis 11/05/2014 02/21/2022 Family history of ischemic heart disease 10/14/2014 11/19/2019 Other symptoms involving dig estive system(787.99) 03/05/2014 03/05/2014 Abdominal pain, right lower quadrant 03/05/2014 03/05/2014 Groin pain 04/23/2013 08/28/2013 DVT (deep venous thrombosis) 10/17/2010 09/30/2018 Ac DVT/embl low ext NOS 08/23/201010/31 Status post inguinal hernia repair 11/23/2009 08/28/2013 Umbilical hernia without men tion of obstruction or gangrene 06/21/2009 08/28/2013 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/12/2008 Unspecified gastritis and ga stroduodenitis without mention of hemorrhage 03/12/2008 08/28/2013 Blood in stool 03/11/2008 08/28/2013 INGUINAL HERNIA, BILAT, RECU RRENT W/O GANGRENE/OBSTRUCTION 11/30/2006 08/28/2013 Adjustment disorder with depressed mood 05/16/2005 08/28/2013 Hypothyroidism 09/30/2018 Abdominal pain, unspecified site 08/28/2013 documented as of this encounter (statuses as of 02/04/2023) [facility] Miscellaneous Notes* Telephone Encounter - Amrita Scott RN - 03/29/2022 12:16 PM EST Provider portion of [employer] forms completed and faxed. No PA needed for Vyndamax medication per cover my meds. Amrita Scott RN March 29, 2022 12:16 PM documented in this encounterAkron Children'[facility] Hospital12-20-2022 Miscellaneous Notes* Telephone Encounter - Alison Bowen RN - 03/21/2022 8:32 AM EST BMI SPECIALTY CARE COORDINATION TELEPHONE ENCOUNTER Patient called to update her c/o RLQ pain. Patient states that her PCP referred her to the ER whereshe had a CT scan, which ruled out appendicitis. Patient indicated that another medical provider had advised her that the RLQ pain could be associated to her cholelithiasis. She is satisfied to proceed as planned with surgery as scheduled on 03/29/22. Alison Bowen RN March 21, 2022 8:36 AM documented in this encounterAkron Children'[facility] Hospital12-19-2022 Miscellaneous Notes* Telephone Encounter - Helga Nicole RN - 03/20/2022 11:49 AM EST Patient call in for Right Lower Abdominal Pain. Nurse Triage assessment completed with protocol recommending for disposition of Go to ED now. Care advice reviewed with patient, patient stated understanding. Reason for Disposition [1] SEVERE pain AND [2] age > 60 years Answer Assessment - Initial Assessment Questions 1. LOCATION: Right lower abdomen 2. RADIATION: Denies 3. ONSET: Began 02/11/2022 4. SUDDEN: Sudden 5. PATTERN Comes and Goes; notices it when she is sitting awhile and then gets up to walk. 6. SEVERITY: Rates Pain 8 out of 10 7. RECURRENT SYMPTOM: Has had pain in groin before, but think this is different 8. CAUSE: Unsure 9. RELIEVING/AGGRAVATING FACTORS: Laying down makes it better 10. OTHER SYMPTOMS: Denies rebound tenderness, diarrhea, fever, back pain Protocols used: Abdominal Pain - Ixsone-TEYBC-NC documented in this encounterAkron Children'S Hospital12-13-2022 History of Present illness Narrative* Diane Alcala RN - 03/14/2022 6:14 PM EST INSIGHT CDM TELEPHONIC OUTREACH Provider Action/FYI: CDM: CHF/ CKD Spk with Pt she reports mild foot edema after having food with more sodium content. Denies Sob, wheezing or coughing. Wt 134 lbs, Pt has a [facility] Nurse visit tomorrow. Pt noted is scheduled for Gallbladder surgery 03/29/22, has intermittent Abd tenderness, and Nausea. Pt denies needs or concerns, Instructed to call PCP with any changes in condition, Pt verbalized understanding. Contact made with patient: Yes Patient identified by name and . Discussed care with patient It s nice talking to you again. As a reminder, this is our bi-weekly check-in where I will be asking you questions about your health. This will only take a few minutes of your time. Is this a good time? Yes Symptoms What Chronic Disease(s) does the patient have: CHF and CKD Do you check your blood pressures at home? Yes, Enter readings: Within normal range Do you have new or worse shortness of breath with activity? No Do you have new or worsening trouble breathing while lying flat? No Do you have new or worsening swelling of legs, feet or ankles? Yes Do you feel like you are dehydrated for any reason, including not being able to eat or drink normally, or having less urine/much darker urine than normal for you? No Do you check your daily weight at home? Yes, Have you noticed a sudden gain in weight greater than three pounds in a day or three pounds in a week? No Are you having any other symptoms that your PCP needs to know about? No Symptom Escalation The patient required an escalation for symptom(s)? No Medications Do you have any questions about taking your medication or which medications you should be on? No Do you need any medication refills at this time, including any of the medications you might take only when needed? No Social We would like to make sure you have what you need so that your basic needs are met- including your personal safety, food, housing and medications? Would you like to speak with a social work child study team director to help give you support for any of these needs? No It can be normal to feel anxious or down during a time like this. Would you like to talk to a mental health professional about how you have been feeling? No Closing Thank you for taking the time to talk with me today. We want to work with you to ensure that we arekeeping your medical condition(s) well-controlled and to keep you healthy and out of the doctor's office or hospital. It s also not too late for me to sign you up for automated weekly questionnaires through [employer]. This is an easy way for us to stay connected each week. Are you interested? No, I understand. We can always sign you up in the future if you change your mind. Just as a reminder, will continue to call you every other week to check in on your health. Our calls should take 10-15 minutes or less. Remember, if you have concerns in between our calls, please call your PCP's office right away. Thank you. Enter next patient outreach date for two weeks on the same day of the week as today in the Track PtOutreach and End outreach. Diane Alcala RN March 14, 2022 6:14 PM documented in this encounterAkron Children'[facility] Hospital12-12-2022 Miscellaneous Notes* Telephone Encounter - Coco Mccormick Sec - 03/13/2022 3:06 PM EST PAP forms faxed to [employer] with prescription. 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 3) PE. 4) Post surgical RP hematoma. HPI: The patient is a 81-year-old female who had a remote history of a right saphenous vein thrombophlebitis with clot closely approximating the right femoral vein. This developed following arthroscopic knee surgery in January 2001. The patient was anticoagulated with low molecular weight heparin, transitioned to Coumadin and continued anticoagulant therapy for approximately 4 months. She underwent left hip arthroplasty in 2002 without any venous thromboembolic complications. She did not previously have any bleeding diaphysis nor did she have any bleeding complication from anticoagulant therapy. The patient underwent elective bilateral inguinal hernia repair as well as a ventral hernia repair on July 20, 2009. She received a prophylactic dose of dalteparin 5000 units preoperatively. The morning following surgery, she received another prophylactic dose of 5000 units. The patient experienced abdominal discomfort and was noted to have a drop in hemoglobin. A CT scan of the abdomen and pelvis suggested a more distal right psoas retroperitoneal hematoma. The patient received a transfusion,was observed for another 24 hours. She did not require fresh, frozen plasma. After it was noted that she was stable, she was discharged. The patient re-presented to the emergency department approximately 2-1/2 weeks later with sudden onset chest pain and pressure when she was walking. A CT scan of the chest revealed right-sided pulmonary emboli. She underwent IVC filter placement and was discharged. Was seen by a clerical methods analyst at a tertiary center. 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 It is unclear that this represented a potential bleeding diathesisor a hypercoagulable condition. Diagnosed with SVT/DVT of the right leg 08/16/10--US showed evidence of superficial venous thrombosis of the saphaneofemoral junction extending into a varicosed branch of greater saphaneous vein. Was anticoagulated and maintained on warfarin. Underwent colonoscopy fall 2011--attributed to diverticular bleeding. Hgb was 15 in the ED. INR=1.7. Was hospitalized for diverticulitis August 2012. Had tarry stools. Underwent EGD 09/30/12--no mucosal abnormalities. Underwent right hip replacement in May 2019. No coagulation complications. Was diagnosed with cardiac amyloidosis, transthyretin/wild type. Started on tafamidis late December 2019. Presents for ongoing hematologic management. Interim history: She continues to tolerate long-term anticoagulation with Lovenox injections very well. Underwent work up for chronic abdominal pain and was found to have gallstones and gallbladder sludge. Can get nauseated after eating. hasn't had much pain. Avoiding fatty foods. Appetite is down. Uses protein drinks. Typically has blood on toilet tissue after BM. Infrequently will drip after bowel movement, but never bleeds if not had BM. She is not wearing knee-high compression stockings consistently. Cardiovascular symptoms under good control with her present treatment for hereditary cardiac amyloidosis. Dyspnea with stairs. PMH, medications and allergies personally reviewed by me today. Any changes documented in appropriate section. PHYSICAL EXAM: Vitals: Blood pressure 126/77, pulse 79, temperature 36.4 C (97.6 F), temperature source Temporal, weight 62.6 kg (138 lb). Well-appearing and in no acute distress. EYES: Sclerae are anicteric bilaterally. LYMPHATIC: There is no palpable cervical or supraclavicular adenopathy. RESPIRATORY: Inspiratory breath sounds are of normal intensity in all hooker. CARDIOVASCULAR: Rhythm is regular. Varicose veins all appear stable. Nontender and not inflamed appearing. ABDOMEN: The abdomen is nondistended. Minimal ecchymoses bilaterally lower abdomen. Extremities: No swelling or edema. SKIN: No jaundice or rash. 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 No focal motor weakness. 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 -Remote history of postoperative bleeding complication. This was a retroperitoneal hematoma following inguinal hernia repair in the setting of prophylactic doses of anticoagulation pre-and postoperatively. -Has IVC filter but malpositioned. -Tolerating Lovenox injections well. No venous thromboembolic events since on this form of anticoagulation. -In the past, her fibrinogen antigen level and activity have been low but stable. She is not had previous predominant bleeding issue aside from the retroperitoneal hematoma in the setting of anticoagulation. -Discussed plan to repeat fibrinogen antigen and clotting activity and if similar to past values, no prophylactic cryoprecipitate needed. Could be used postoperatively if bleeding were to occur. Plan: -Perioperative anticoagulant management per vascular medicine. -Check fibrinogen level and activity today. -Cleared for upcoming surgery from hematologic standpoint. -Would consult hematology and administer cryoprecipitate postoperatively if bleeding issues occur during or after surgery. -Specific recommendations to her surgeon once today's lab work completed. 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 -Encouraged her to use compression stockings as much as possible. -OV in 6 months. Portions of this documentation were copied and pasted from previous office visit notes in order to provide a cohesive continuity of the history. The note has been reviewed and edited and updated as necessary. I spent 30 minutes in the visit, with more than 50% of the total lugs-on-sdku time of the visit in reviewing test results, plan of care and coordination of care Omer Narvaez DO documented in this encounterAkron Children'S Hospital12-05-2022 Miscellaneous Notes* Telephone Encounter - Candice Yang Pss - 03/06/2022 2:15 PM EST Patient scheduled by another PSR. * Telephone Encounter - Omer Narvaez DO - 03/05/2022 10:25 AM EST Please schedule her for a follow-up visit with me sometime in the next 2 weeks so that I can document recommendations for perioperative use of cryoprecipitate if needed for her upcoming gallbladder surgery. Omer Narvaez DO documented in this encounterAkron Children'S Hospital12-01-2022 History of Present illness Narrative* Winsome Chavez Rust - 03/02/2022 1:31 PM EST IRB #[id number] CardioJuliasform PI: Dr. Ruby Study Visit: Week Week 85 I met with the patient for the Study Day 589 Visit for the CardioTTRansform Study. Reaffirmed that the patient still wishes to participate in the study and continues to consent to the study. Has the patient had any changes in her health since the last study visit? Yes: Patient scheduled for laparoscopic removal of calculus of gallbladder on 03/29/22. Has the patient had any outside hospitalizations/ER visits: No Dates and locations: n/a KCCQ completed: Not Required per protocol [place] QoL completed: Not Required per protocol [id number] completed: Not Required per protocol Ocular Questionnaire completed: Yes SF-36 completed: Not Required per protocol Patient Global Assessment of Severity completed: Not Required per protocol Patient Global Assessment of Change completed: Not Required per protocol Blood and urine samples collected per protocol. Discussed with patient the requirement to take a daily Vitamin A supplement. Supplement was provided to patient. She verbalized understanding. Study drug is discontinued at this time. Patient will continue scheduled study visits while off drug. At home dosing education was reviewed with patient / caregiver. Teach back utilized. Study drug diary was reviewed with the patient and education on how to complete it was provided. She verbalized understanding. Study drug was dispensed to patient for home use. Discussed with the patient the importance of follow up in the study. She verbalized understanding. Patient contact information reaffirmed and updated. Coordinator contact information provided to the patient. Education provided: Protocol required tests/procedures Materials dispensed: None lead clinical research coordinator: Winsome Chavez Rust Pager #: [phone] documented in this encounterAkron Children'S Hospital11-25-2022 Miscellaneous Notes* Telephone Encounter - Edita Bermudez RN - 02/24/2022 2:16 PM EST Images from the original note were not included. Pt updated on US result as copied below. Pt states she is not too bad today. States her right groin is still sore but has not worsened. States area is sore when getting up from lying down or after sitting and then stands. Bruising has notworsened. States the other abdominal bruises noted during OV on 02/20 were not from the injections she gives herself and she wanted provider to know that. She is not sure the cause of the bruising. No call back needed to pt unless provider has additional instructions. Thank you. COPIED MESSAGE 02/24/22: Eugenio Hernandez MD P Wstr Im Ganta Pool Negative pelvic US. Update on symptoms please documented in this encounterAkron Children'S Hospital11-25-2022 History of Present illness Narrative* Amelia Jimenez RDMS - 02/24/2022 9:45 AM EST Radiology Service Progress Note PATIENT NAME: Yris Villagomez DATE OF SERVICE: February 24, 2022 TIME: 9:55 AM PATIENT IDENTITY VERIFICATION COMPLETED USING TWO (2) IDENTIFIERS: Name and Date of confirmedby patient verbally. FALL SCREENING: Has the patient had 2 falls in the last year or 1 fall with injury or currently using an Ambulatory Assistive Device (Walker, Cane, Wheelchair, Crutches, etc.)? No PATIENT GENDER DATA: Female. status: : No status: NO. PATIENT RELEVANT IMPLANT DATA REVIEWED: Not Applicable RADIOLOGY DEPARTMENT: Ultrasound PERIPHERAL IV DATA: Not applicable SIGNED BY: Amelia Jimenez RDMS RVT February 24, 2022 9:55 AM documented in this encounterAkron Children'S Hospital11-21-2022 History of Present illness Narrative* Eugenio Hernandez MD - 02/20/2022 6:18 PM EST Images from the original note were not included. This note was created using Sonicsriter. Subjective Yris Villagomez is a 81 year old female with RLQ soreness and bruise noted for 10 days. She normally had some bruising from Lovenox injection, but not this noticeable. Soreness was localized to RLQ with no radiation, and aggravated by movement. She had no trauma or falls. She was waiting to be scheduled for gallbladder surgery. Review of Systems Constitutional: Negative for appetite change, chills, diaphoresis, fever and unexpected weight change. HENT: Negative for nosebleeds. Respiratory: Negative for cough and shortness of breath. Cardiovascular: Negative for chest pain, palpitations and leg swelling. Gastrointestinal: Negative for abdominal distention, blood in stool, constipation, diarrhea, nauseaand vomiting. Genitourinary: Negative for difficulty urinating, dysuria, flank pain, hematuria and vaginal bleeding. Musculoskeletal: Negative for back pain. Hematological: Bruises/bleeds easily. 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) Chronic Anticoagulation Chronic Kidney Disease (Ckd), Stage Iii (Moderate) (Hcc) Gastroesophageal Reflux Disease Post-Phlebitic Syndrome Osteoarthritis of Right Hip Status Post Right Hip Replacement Cardiac Amyloidosis (Hcc) Wild-Type Transthyretin-Related (Attr) Amyloidosis (Hcc) Acute Stress Reaction Recent Bereavement Hypertensive Kidney Disease With Chronic Kidney Disease Stage Iii (Hcc) Chronic Diastolic Heart Failure (Hcc) 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 enoxaparin (LOVENOX) 60 mg/0.6 mL syrg Inject 0.6 mL subcutaneously once daily. traMADol (ULTRAM) 50 mg tablet Take 1 tablet by mouth every 6 hours as needed for up to 99 days. rosuvastatin (CRESTOR) 5 mg tablet Take 1 tablet by mouth once daily. levothyroxine (SYNTHROID) 88 mcg tablet Take 1 tablet by mouth once daily. torsemide (DEMADEX) 10 mg tablet Take 2 tablets by mouth once daily. [facility]-[id number] 150 MG/ML OR PLACEBO INJECTION (IRB 20-) Inject 0.3 mL subcutaneously every 4 weeks. For Investigational Drug Use Only. PI: Evi Zamora MD. Inject 0.3 mL subcutaneously every 4 weeks. EXP: 2 hours at room temp. Protect from light. vitamin A (AQUASOL A) 10,000 unit capsule Take 10,000 Units by mouth Every 3 Days. aspirin, enteric coated (ASPIRIN, ENTERIC COATED) 81 mg EC tablet Take 1 tablet by mouth once daily. polyethylene glycol 3350 (MIRALAX, GLYCOLAX) 17 gram/dose powder as needed. One capful with a full glass of water, 2-3 times a day Or as directed cholecalciferol, vitamin D3, (VITAMIN D3 ORAL) Take 5,000 Units by mouth once daily. (Patient not taking: Reported on 02/20/2022) Current Facility-Administered Medications Medication Dose Route Frequency perflutren lipid microspheres 1.3 mL in NaCl (PF) 0.9% 10 mL injection (DEFINITY) INTRAVENOUS DIRECTED PRN sodium chloride 0.9 % (flush) 10 mL (BD POSIFLUSH) 10 mL INTRAVENOUS DIRECTED PRN Objective BP 130/74 (BP Site: Left Arm, BP Position: Sitting, BP Cuff Size: Large Adult) Pulse 76 Temp 36.5 C (97.7 F) (Temporal) Resp 12 Wt 61.7 kg (136 lb) BMI 23.34 kg/m Physical Exam Constitutional: General: She is not in acute distress. Appearance: She is not ill-appearing or diaphoretic. Eyes: Conjunctiva/sclera: Conjunctivae normal. Cardiovascular: Rate and Rhythm: Normal rate and regular rhythm. Pulses: Femoral pulses are 1+ on the right side with bruit and 1+ on the left side with bruit. Heart sounds: No murmur heard. No gallop. Pulmonary: Breath sounds: Normal breath sounds. Abdominal: General: Bowel sounds are normal. Palpations: Abdomen is soft. There is no hepatomegaly, splenomegaly, mass or pulsatile mass. Tenderness: There is abdominal tenderness in the right lower quadrant. There is no right CVA tenderness, left CVA tenderness, guarding or rebound. Hernia: No hernia is present. Comments: Linear ecchymosis above the right inguinal ligament, mild tenderness. Smaller minor linear ecchymosis to the right of the umbilicus. Musculoskeletal: Right hip: No deformity or tenderness. Normal range of motion. Left hip: Normal. Right upper leg: No deformity or tenderness. Right lower leg: No edema. Left lower leg: No edema. Neurological: Mental Status: She is alert. Assessment and Plan 1. Groin pain, right - ICD9: 789.03, ICD10: R10.31 (primary diagnosis) Etiology unclear - US PELVIS LTD 2. Ecchymosis - ICD9: 459.89, ICD10: R58 Significance not clear. - PELVIS LTD Further recommendations with results. Observe only for now. Eugenio Hernandez MD documented in this encounter[facility] Miscellaneous Notes* Telephone Encounter - Courtney Juarez RN - 02/20/2022 4:43 PM EST Protocol recommends see provider in 4 hours. Scheduled appt. Reason for Disposition [1] MILD-MODERATE pain AND [2] constant AND [3] present > 2 hours Answer Assessment - Initial Assessment Questions 1. LOCATION: RLQ pain near hip bone, for 1 week. Noticed a bruise there a couple inches long. 2. RADIATION: No 3. ONSET: 1 to 1.5 weeks ago. 4. SUDDEN: Sudden. 5. PATTERN Constant. The same as when it started. 6. SEVERITY: 5-6/10. Awakens from sleep. Tender to touch. Worse when sitting down and goes to stand, worse when rolling over in bed. 7. RECURRENT SYMPTOM: No. 8. CAUSE: No idea 9. RELIEVING/AGGRAVATING FACTORS: If lays down and bends knees up takes the pressure off a little. Movement makes it worse. 10. OTHER SYMPTOMS: No fever. Right leg giving her more problems- a pain up close to groin (pretty bad but gone now) and now a pain inside right knee. More discomfort in right leg. Bowels are moving-last BM was Sunday- it was a lot. BM had blood in it. This is not new- has been going on for a longtime and due to hemorroids. Blood in underwear - without BM - trace. Pain after BM in rectum-usually lasts 4-5 hours. No trouble with urinating. Takes lovenox injections for hx blood clots in lungs/legs. Abdomen is soft. 11. : No Protocols used: Abdominal Pain - [id number] documented in this encounterAk[facility]11-[facility] History and physical note * Franklin Gaona MD - 02/17/2022 2:20 PM EST Virtual Visit (Audio/Visual) I have discussed the nature of this visit with the patient which will occur via [facility] (Phone, Virtual Visit) and she agrees to proceed with this interaction . Virtual Visit (Audio/Visual) I have discussed the nature of this visit with the patient which will occur via [facility] (Phone, Virtual Visit) and she agrees to proceed with this interaction . Section of Advanced Laparoscopic Surgery, Bariatric Surgery, and Surgical Endoscopy Consultation February 17, 2022 Yris Villagomez 81 year old This consult was requested by Dr. Ahn and my final recommendations will be communicated to the requesting health care provider by way of the shared medical record for internal providers or lettervia the [employer] for external providers. Chief Complaint: Abdominal pain History of Present Illness: Yris Villagomez is a 81 year old year old female intermittent abdominal pain, vomiting, RUQ pain. U/S shows stones and sludge. Elevated LFT's. Previous DVT, PE. 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/12/2008 Chest pain Chronic kidney disease (CKD), stage III (moderate) (HCC) 07/27/2016 Coronary artery disease due to calcified coronary lesion 06/22/2021 Diverticulitis Diverticulosis of colon (without mention of hemorrhage) Diverticulosis of colon with hemorrhage DVT (deep venous thrombosis) (HCC) After knee surgery Dysmetabolic syndrome X Hemorrhage of gastrointestinal tract, unspecified Hernia of other specified sites of abdominal cavity without mention of obstruction or gangrene 2006 Patient has 2 or 3 hernias at abdomen and groin Internal hemorrhoids without mention of complication Other and unspecified hyperlipidemia PE (pulmonary embolism) after hernia surgery Umbilical hernia 07/22/2009 Unspecified essential hypertension Unspecified gastritis and gastroduodenitis 03/12/2008 Unspecified hypothyroidism PAST SURGICAL HISTORY Procedure Laterality Date ARTHRP ACETBLR/PROX FEM PROSTC AGRFT/ALGRFT 2002 Hip replacement, total, left ARTHRP ACETBLR/PROX FEM PROSTC AGRFT/ALGRFT 2002 left hip COLONOSCOPY FLX DX W/COLLJ SPEC WHEN PFRMD 09/15/1998 Colonoscopy COLONOSCOPY FLX DX W/COLLJ SPEC WHEN PFRMD 08/07/2005 Colonoscopy COLONOSCOPY FLX DX W/COLLJ SPEC [facility] COLONOSCOPY FLX DX W/COLLJ SPEC WHEN PFRMD 03/05/14 Colonoscopy COLSC FLX W/REMOVAL LESION BY HOT BX FORCEPS 03/12/08 EGD TRANSORAL BIOPSY SINGLE/MULTIPLE 03/12/08 EGD TRANSORAL BIOPSY SINGLE/MULTIPLE 09-30-12 ESOPHAGOGASTRODUODENOSCOPY TRANSORAL DIAGNOSTIC 06/10/2015 EGD HYSTERECTOMY, REVISE VAGINA; COLPECTOMY 1980 Hysterectomy with bladder repair still ovaries ARTEAGA W/O FACETEC FORAMOT/DSC 1/ VRT SGM CRV 2001 Discectomy and fusion, cervical LAPS SURG RPR RECURRENT INGUINAL HERNIA 07/22/2009 LIGJ DIVJ &/EXCJ VARICOSE VEIN CLUSTER 1 LEG 1984 Varicose Vein Surgery PAST SURGICAL HISTORY OF 2001 cervical spine repair PAST SURGICAL HISTORY OF 11/04/14 cystocele RPR 1ST INGUN HRNA AGE 5 YRS/> REDUCIBLE 1980 Hernia repair, inguinal RPR 1ST INGUN HRNA AGE 5 YRS/> REDUCIBLE 1980 Hernia repair, inguinal, bilateral RPR UMBILICAL HRNA 5 YRS/> REDUCIBLE 07/22/2009 THYROIDECTOMY TOTAL/COMPLETE 1994 TONSILLECTOMY AND ADENOIDECTOMY HX 1968 TONSILLECTOMY PRIMARY/SECONDARY <AGE 12 Tonsillectomy X-RAY PLACEMENT, VEIN FILTER 08/13/2009 Current Outpatient Medications Medication Sig Dispense Refill tafamidis (VYNDAMAX) 61 mg Take 1 capsule by mouth once daily. 30 capsule 11 enoxaparin (LOVENOX) 60 mg/0.6 mL syrg Inject 0.6 mL subcutaneously once daily. 90 Each 3 traMADol (ULTRAM) 50 mg tablet Take 1 tablet by mouth every 6 hours as needed for up to 99 days. 28tablet 0 rosuvastatin (CRESTOR) 5 mg tablet Take 1 tablet by mouth once daily. 90 tablet 3 levothyroxine (SYNTHROID) 88 mcg tablet Take 1 tablet by mouth once daily. 90 tablet 3 torsemide (DEMADEX) 10 mg tablet Take 2 tablets by mouth once daily. 180 tablet 3 INV [id number] 150 MG/ML OR PLACEBO INJECTION ([facility] 20-) Inject 0.3 mL subcutaneously every 4 weeks. For Investigational Drug Use Only. PI: Evi Zamora MD. Inject 0.3 mL subcutaneously every 4 weeks. EXP: 2 hours at room temp. Protect from light. vitamin A (AQUASOL A) 10,000 unit capsule Take 10,000 Units by mouth Every 3 Days. cholecalciferol, vitamin D3, (VITAMIN D3 ORAL) Take 5,000 Units by mouth once daily. aspirin, enteric coated (ASPIRIN, ENTERIC COATED) 81 mg EC tablet Take 1 tablet by mouth once daily. polyethylene glycol 3350 (MIRALAX, GLYCOLAX) 17 gram/dose powder as needed. One capful with a full glass of water, 2-3 times a day Or as directed Current Facility-Administered Medications Medication Dose Route Frequency Provider Last Rate Last Admin perflutren lipid microspheres 1.3 mL in NaCl (PF) 0.9% 10 mL injection (DEFINITY) INTRAVENOUS DIRECTED ISMAEL Ruby MD sodium chloride 0.9 % (flush) 10 mL (BD POSIFLUSH) 10 mL INTRAVENOUS DIRECTED PRYashira Ruby MD ALLERGIES Allergen Reactions Iodine Hives FAMILY HISTORY Problem Relation Age of Onset Coronary Artery Disease Mother 83, CVA Colon Cancer Mother Coronary Artery Disease Father [place] 45 Cancer Brother multiple myeloma None Daughter None Daughter other (heart attack) Son other (fibramyalgia) Son other (blood clots in lungs) Son Social History Tobacco Use Smoking status: Never Smokeless tobacco: Never Vaping Use Vaping Use: Never used Substance Use Topics Alcohol use: No Drug use: No Review of Systems: GENERAL: No weight loss, malaise or fevers RESPIRATORY: Negative for cough, hemoptysis, wheezing, COPD, dyspnea or shortness of breath CARDIOVASCULAR: Negative for chest pain, leg swelling, hypertension, CHF or palpitations GI: See HPI : No history of dysuria, frequency or incontinence MUSCULOSKELETAL: Negative for joint pain or swelling, back pain or muscle pain Physical Exam: There were no vitals taken for this visit. General Appearance: Well appearing, alert, in no acute distress, well-hydrated, well nourished. Psych: ORIENTATION: normal to time place, person and situation AFFECT AND MOOD: Normal Diagnostic tests reviewed for today's visit: Ultrasound All outside imaging and records were reviewed with the patient during consultation. Assessment Assessment and Plan: Yris Villagomez is a 81 year old female symptomatic cholelithiasis, complex anti-coagulation needs. To see vascular medicine, anesthesia preop. Franklin Gaona MD Advanced Laparoscopic Surgery, Bariatric Surgery, and Surgical Endoscopy documented in this encounterAk[facility]11-[facility] History of Present illness Narrative* Diane Alcala RN - 02/10/2022 3:56 PM EST [facility] TELEPHONIC OUTREACH Provider Action/FYI: Call to Pt left a message to verify CHF/ CKD or other symptoms or needs. Contact made with patient: No - Left message Silver my name is Diane Alcala RN your Water Leak Repairer from the [facility] I am callingtoday for your bi-weekly check in. I am sorry I missed your call. I will reach out to you again tomorrow. (if the third call I will reach out to you again next week) Enter next patient outreach date for the following business day using the Track Pt Outreach. End outreach. Diane Alcala RN February 10, 2022 3:56 PM * Diane Alcala RN - 02/08/2022 2:29 PM EST [facility] TELEPHONIC OUTREACH Provider Action/FYI: Call to Pt left a message to verify CHF/ CKD or other symptoms or needs. Contact made with patient: No - Left message Silver my name is Diane Alcala RN your Water Leak Repairer from the [facility] I am callingtoday for your bi-weekly check in. I am sorry I missed your call. I will reach out to you again tomorrow. (if the third call I will reach out to you again next week) Enter next patient outreach date for the following business day using the Track Pt Outreach. End outreach. Diane Alcala RN February 08, 2022 2:29 PM documented in this encounterAkron [facility]11-11-2022 Miscellaneous Notes* Telephone Encounter - LAKSHMI Galvin - 02/10/2022 9:17 AM EST SW received. SW successfully faxed pt's completed re-enrollment application, along with new prescription, to [facility] this date. All original forms sent to internal scanning. FORD Galvin * Telephone Encounter - Coby Tatum LPN - 02/09/2022 4:14 PM EST Rx placed on desk. Coby Tatum LPN * Telephone Encounter - Omer Narvaez DO - 02/09/2022 3:51 PM EST Rx printed. Omer Narvaez DO * Telephone Encounter - LAKSHMI Galvin - 02/09/2022 2:39 PM EST SW completing pt's 2022 med assist [facility]rollment [facility]. Pt is in need of a new hard-copy prescription of her Lovenox to send along with the re-enrollment application. SW to forward to Dr. Narvaez. 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 3) PE. 4) Post surgical RP hematoma. HPI: The patient is a 81-year-old female who had a remote history of a right saphenous vein thrombophlebitis with clot closely approximating the right femoral vein. This developed following arthroscopic knee surgery in January 2001. The patient was anticoagulated with low molecular weight heparin, transitioned to Coumadin and continued anticoagulant therapy for approximately 4 months. She underwent left hip arthroplasty in 2002 without any venous thromboembolic complications. She did not previously have any bleeding diaphysis nor did she have any bleeding complication from anticoagulant therapy. The patient underwent elective bilateral inguinal hernia repair as well as a ventral hernia repair on July 20, 2009. She received a prophylactic dose of dalteparin 5000 units preoperatively. The morning following surgery, she received another prophylactic dose of 5000 units. The patient experienced abdominal discomfort and was noted to have a drop in hemoglobin. A CT scan of the abdomen and pelvis suggested a more distal right psoas retroperitoneal hematoma. The patient received a transfusion,was observed for another 24 hours. She did not require fresh, frozen plasma. After it was noted that she was stable, she was discharged. The patient re-presented to the emergency department approximately 2-1/2 weeks later with sudden onset chest pain and pressure when she was walking. A CT scan of the chest revealed right-sided pulmonary emboli. She underwent IVC filter placement and was discharged. Was seen by a clerical methods analyst at a tertiary center. 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 It is unclear that this represented a potential bleeding diathesisor a hypercoagulable condition. Diagnosed with SVT/DVT of the right leg 08/16/10--US showed evidence of superficial venous thrombosis of the saphaneofemoral junction extending into a varicosed branch of greater saphaneous vein. Was anticoagulated and maintained on warfarin. Underwent colonoscopy fall 2011--attributed to diverticular bleeding. Hgb was 15 in the ED. INR=1.7. Was hospitalized for diverticulitis August 2012. Had tarry stools. Underwent EGD 09/30/12--no mucosal abnormalities. Underwent right hip replacement in May 2019. No coagulation complications. Was diagnosed with cardiac amyloidosis, transthyretin/wild type. Started on tafamidis late December 2019. Presents for ongoing hematologic management. Interim history: She continues to tolerate long-term anticoagulation with Lovenox injections very well. Underwent work up for chronic abdominal pain and was found to have gallstones and gallbladder sludge. Infrequent mild rectal bleeding when moves bowels only. Chronic symptom. No painful varicosities presently. She is not wearing knee-high compression stockings consistently No recent lower extremity swelling or pain. Cardiovascular symptoms under good control with her present treatment for hereditary cardiac amyloidosis. Dyspnea with stairs. PMH, medications and allergies personally reviewed by me today. Any changes documented in appropriate section. PHYSICAL EXAM: Vitals: Blood pressure 112/69, pulse 87, temperature 36.3 C (97.3 F), temperature source Temporal, height 162.6 cm (5' 4 ), weight 63.3 kg (139 lb 8 oz), SpO2 100 %. Well-appearing and in no acute distress. EYES: Sclerae are anicteric bilaterally. LYMPHATIC: There is no palpable cervical or supraclavicular adenopathy. RESPIRATORY: Inspiratory breath sounds are of normal intensity in all hooker. CARDIOVASCULAR: Rhythm is regular. Varicose veins all appear stable. Nontender and not inflamed appearing. ABDOMEN: The abdomen is nondistended. Minimal ecchymoses bilaterally lower abdomen. Extremities: No swelling or edema. SKIN: No jaundice or rash. 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 No focal motor weakness. 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 -Remote history of postoperative bleeding complication. This was a retroperitoneal hematoma following inguinal hernia repair in the setting of prophylactic doses of anticoagulation pre-and postoperatively. -Has IVC filter but malpositioned. -Tolerating Lovenox injections well. No venous thromboembolic events since on this form of anticoagulation. Plan: -Continue Lovenox once daily. -Okay to continue low-dose aspirin. 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 -Encouraged her to use compression stockings as much as possible. -Vascular medicine consultation for perioperative anticoagulation recommendations for upcoming cholecystectomy. -OV in 6 months. Portions of this documentation were copied and pasted from previous office visit notes in order to provide a cohesive continuity of the history. The note has been reviewed and edited and updated as necessary. During this patient visit I have spent approximately 10 minutes out of 20 in counseling regarding medications and coordinating care. Omer Narvaez DO documented in this encounterAkron [facility]11-02-2022 Miscellaneous Notes* Telephone Encounter - Frances Chavez Ma - 02/01/2022 10:30 AM EDT Labs collected. * Telephone Encounter - Nuvia Grissom APRN.CNP - 01/30/2022 4:54 PM EDT Please make sure she gets the lab work SLIM. Thank you Nuvia Grissom APRN.ALESSANDRO * Telephone Encounter - Amrita Rizzo RN - 01/30/2022 4:39 PM EDT Pt called and is notified of providers results and instructions. Pt voices understanding.Pt reportsshe doesn't feel well, has fatigue. Feelings come and go, not constant like it was a few days ago. She has a poor appetite and has only has a protein shake, 1/2 a cheese sandwich, and water /coffee today. Last night she had sharp cramping on and off abdominal pain. Has not vomited for a week, but has been burping. Pt put through to scheduling to set up Gen Surgery appointment. Amrita Rizzo RN * Telephone Encounter - Nuvia Grissom APRN.CNP - 01/30/2022 4:25 PM EDT Please let patient know she has cholelithiasis and sludge in her gall bladder. How is she feeling? I am consulting her to general surgery for further evaluation and also ordering for her liver enzymes repeated and also blood counts. Thank you Nuvia Grissom APRN.CNP documented in this encounterAkron [facility]11-01-2022 History of Present illness Narrative* Brayan Ahn MD - 01/31/2022 9:29 AM EDT HISTORY AND PHYSICAL Yris Villagomez 1940 REFERRING PHYSICIAN: Nuvia Grissom APRN.CNP CHIEF COMPLAINT: Consult (Abd pain, vomiting, fatigue) HPI: The patient is a 81 year old female with a complaint of Calculus of gallbladder without cholecystitis without obstruction Elevated liver enzymes. Sunday night started to feel like her abdomen was firm and started vomiting at 8pm and threw up forthe next 4 hours and became very sweaty and hot. Has not thrown up since but has not felt well and has had no appetite. Home health nurse checked her BP today and it was 91/67 so encouraged to be seen by PCP. Denies any dietary changes this weekend but did eat a leftover tuna fish sandwich from Sunday night on Sunday night a few hours prior to the vomiting. The patient is being seen by me today at the request of Dr. Grissom for my opinion and advice regarding Calculus of gallbladder without cholecystitis without obstruction Elevated liver enzymes. 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/12/2008 Chest pain Chronic kidney disease (CKD), stage III (moderate) (HCC) 07/27/2016 Coronary artery disease due to calcified coronary lesion 06/22/2021 Diverticulitis Diverticulosis of colon (without mention of hemorrhage) Diverticulosis of colon with hemorrhage DVT (deep venous thrombosis) (HCC) After knee surgery Dysmetabolic syndrome X Hemorrhage of gastrointestinal tract, unspecified Hernia of other specified sites of abdominal cavity without mention of obstruction or gangrene 2006 Patient has 2 or 3 hernias at abdomen and groin Internal hemorrhoids without mention of complication Other and unspecified hyperlipidemia PE (pulmonary embolism) after hernia surgery Umbilical hernia 07/22/2009 Unspecified essential hypertension Unspecified gastritis and gastroduodenitis 03/12/2008 Unspecified hypothyroidism PAST SURGICAL HISTORY Procedure Laterality Date ARTHRP ACETBLR/PROX FEM PROSTC AGRFT/ALGRFT 2002 Hip replacement, total, left ARTHRP ACETBLR/PROX FEM PROSTC AGRFT/ALGRFT 2002 left hip COLONOSCOPY FLX DX W/COLLJ SPEC WHEN PFRMD 09/15/1998 Colonoscopy COLONOSCOPY FLX DX W/COLLJ SPEC WHEN PFRMD 08/07/2005 Colonoscopy COLONOSCOPY FLX DX W/COLLJ SPEC WHEN [facility] COLONOSCOPY FLX DX W/COLLJ SPEC WHEN PFRMD 03/05/14 Colonoscopy COLSC FLX W/REMOVAL LESION BY HOT BX FORCEPS 03/12/08 EGD TRANSORAL BIOPSY SINGLE/MULTIPLE 03/12/08 EGD TRANSORAL BIOPSY SINGLE/MULTIPLE 09-30-12 ESOPHAGOGASTRODUODENOSCOPY TRANSORAL DIAGNOSTIC 06/10/2015 EGD HYSTERECTOMY, REVISE VAGINA; COLPECTOMY 1980 Hysterectomy with bladder repair still ovaries ARTEAGA W/O FACETEC FORAMOT/DSC 04/03 VRT SGM CRV 2001 Discectomy and fusion, cervical LAPS SURG RPR RECURRENT INGUINAL HERNIA 07/22/2009 LIGJ DIVJ &/EXCJ VARICOSE VEIN CLUSTER 1 LEG 1984 Varicose Vein Surgery PAST SURGICAL HISTORY OF 2001 cervical spine repair PAST SURGICAL HISTORY OF 11/04/14 cystocele RPR 1ST INGUN HRNA AGE 5 YRS/> REDUCIBLE 1980 Hernia repair, inguinal RPR 1ST INGUN HRNA AGE 5 YRS/> REDUCIBLE 1980 Hernia repair, inguinal, bilateral RPR UMBILICAL HRNA 5 YRS/> REDUCIBLE 07/22/2009 THYROIDECTOMY TOTAL/COMPLETE 1994 TONSILLECTOMY AND ADENOIDECTOMY HX 1967 TONSILLECTOMY PRIMARY/SECONDARY <AGE 12 Tonsillectomy X-RAY PLACEMENT, VEIN FILTER 08/13/2009 Current Outpatient Medications Medication Sig traMADol (ULTRAM) 50 mg tablet Take 1 tablet by mouth every 6 hours as needed for up to 99 days. rosuvastatin (CRESTOR) 5 mg tablet Take 1 tablet by mouth once daily. enoxaparin (LOVENOX) 60 mg/0.6 mL syrg Inject 60 mg subcutaneously once daily. levothyroxine (SYNTHROID) 88 mcg tablet Take 1 tablet by mouth once daily. torsemide (DEMADEX) 10 mg tablet Take 2 tablets by mouth once daily. tafamidis (VYNDAMAX) 61 mg Take 1 capsule by mouth once daily. vitamin A (AQUASOL A) 10,000 unit capsule Take 10,000 Units by mouth Every 3 Days. cholecalciferol, vitamin D3, (VITAMIN D3 ORAL) Take 5,000 Units by mouth once daily. aspirin, enteric coated (ASPIRIN, ENTERIC COATED) 81 mg EC tablet Take 1 tablet by mouth once daily. INV [id number] 150 MG/ML OR PLACEBO INJECTION (IRB 20-) Inject 0.3 mL subcutaneously every 4 weeks. For Investigational Drug Use Only. PI: Evi Zamora MD. Inject 0.3 mL subcutaneously every 4 weeks. EXP: 2 hours at room temp. Protect from light. (Patient not taking: Reported on 01/31/2022) polyethylene glycol 3350 (MIRALAX, GLYCOLAX) 17 gram/dose powder as needed. One capful with a full glass of water, 2-3 times a day Or as directed (Patient not taking: Reported on 01/31/2022) No current facility-administered medications for this visit. ALLERGIES: Iodine PERSONAL HISTORY: Social History Tobacco Use Smoking status: Never Smokeless tobacco: Never Vaping Use Vaping Use: Never used Substance Use Topics Alcohol use: No Drug use: No FAMILY HISTORY: FAMILY HISTORY Problem Relation Age of Onset Coronary Artery Disease Mother 83, CVA Colon Cancer Mother Coronary Artery Disease Father [place] 45 Cancer Brother multiple myeloma None Daughter None Daughter other (heart attack) Son other (fibramyalgia) Son other (blood clots in lungs) Son REVIEW OF SYMPTOMS: The review of systems data was entered by the nurse and reviewed by ks Nursing Notes: Emeli Jovel RN 01/31/2022 8:48 AM Signed REVIEW OF SYSTEMS: General: The patient NOTES fatigue, denies weight loss, denies weight gain, NOTES feeling hot, and NOTES feelings of cold. Eyes: The patient denies glaucoma, NOTES eye injury/surgery, wears glasses or contacts. Ear/Nose/Throat: The patient denies allergies, denies hayfever, denies ear infections, and denies bloody noses. Cardiovascular: The patient denies chest pain, NOTES heart disease, denies high blood pressure,denies cardiac stent, denies prior heart attack, denies irregular heart beat, NOTES high cholesterol, NOTES poor circulation, denies heart failure, other cardiac issues, denies claudication, denies cold feet, denies peripheral arterial stent. Respiratory: The patient denies tuberculosis, NOTES pneumonia, NOTES frequent cough, NOTES pulmonary embolism, NOTES shortness of breath, and denies coughing up blood. Gastrointestinal: The patient NOTES difficulty swallowing, NOTES acid reflux, denies ulcers, NOTES vomiting, denies jaundice/hepatitis, denies gallbladder problems, denies black or tarry stools, NOTES hemorrhoids, NOTES bleeding from rectum, NOTES diverticulitis, NOTES constipation, denies diarrhea, denies loss of stool control, and NOTES hernias. Kidney/Bladder: The patient denies kidney stones, NOTES urine infections, and NOTES bloody urine. Skin: The patient denies a history of skin cancer, denies bleeding/changing moles, and denies a history of skin rash. Neurologic: The patient denies a history of epilepsy/convulsions, denies headaches, denies head/spinal injuries, and denies stroke/TIA. Psychiatric: The patient denies psychiatric medications, denies depression, and denies voices, denies substance abuse. Endocrine: The patient NOTES thyroid disorders, denies diabetes, and denies hormonal problems. Hematologic: The patient NOTES a history of bruising, NOTES bleeding, and NOTES anemia, NOTES bloodclots. Infections: The patient denies a history of measles and mumps, denies rheumatic fever, and denies sexually transmitted diseases. Musculoskeletal: The patient denies back pain/injury, denies back problems, denies sciatica, deniesknee/foot trouble, NOTES arthritis, or NOTES gout. When was patient's last Mammogram screening? 2019 Last Colonoscopy: 2015 Emeli Jovel RN PHYSICAL EXAMINATION: General: The patient is 81 year old female, well nourished, well hydrated in no acute distress. Thepatient is oriented to time, place, and person. VITALS: Blood pressure 116/78, pulse 102, temperature 36.6 C (97.9 F), height 165.1 cm (5' 5 ), weight 61.6 kg (135 lb 12.8 oz), SpO2 95 %. HEENT: Normal cephalic, ataumatic, pupils are equally round, sclera are anicteric, mucous membranesare moist, oropharynx is clear. Neck has no masses, asymmetry or lymphadenopathy. Thyroid is unremarkable. Respiratory: Clear to auscultation and percussion. Normal respiratory excursion and pattern. Cardiac: Examination is regular rate and rhythm. Abdominal exam: Soft, nontender, with no palpable masses. No hepatosplenomegaly. No palpable hernias. Rectal exam: exam deferred Extremities: no clubbing, cyanosis or edema. No adenopathy. Other: LABORATORY VALUES: As Noted RADIOLOGIC STUDIES: As Noted Assessment IMPRESSION: Calculus of gallbladder without cholecystitis without obstruction Elevated liver enzymes PLAN: This is an exceptionally challenging patient from a cardiac standpoint vasculopathic standpoint. I do not believe she should have any surgeries in a tertiary center, she needs to be done probably at the main campus. I am going to reach out to see if we can get her to see one of the general surgeons there to expedite possible laparoscopic cholecystectomy. Diagnoses: (K80.20) Calculus of gallbladder without cholecystitis without obstruction (R74.8) Elevated liver enzymes My findings have been communicated to Dr. Grissom via shared medical record. This note will be forwarded to Dr. Gab Pisano MD. Return to Clinic: The patient is instructed to follow-up with me as needed. Brayan Ahn III, MD documented [facility] this encounter[facility] Nurse Note* Emeli Jovel RN - 01/31/2022 8:38 AM EDT REVIEW OF SYSTEMS: General: The patient NOTES fatigue, denies weight loss, denies weight gain, NOTES feeling hot, and NOTES feelings of cold. Eyes: The patient denies glaucoma, NOTES eye injury/surgery, wears glasses or contacts. Ear/Nose/Throat: The patient denies allergies, denies hayfever, denies ear infections, and denies bloody noses. Cardiovascular: The patient denies chest pain, NOTES heart disease, denies high blood pressure,denies cardiac stent, denies prior heart attack, denies irregular heart beat, NOTES high cholesterol, NOTES poor circulation, denies heart failure, other cardiac issues, denies claudication, denies cold feet, denies peripheral arterial stent. Respiratory: The patient denies tuberculosis, NOTES pneumonia, NOTES frequent cough, NOTES pulmonary embolism, NOTES shortness of breath, and denies coughing up blood. Gastrointestinal: The patient NOTES difficulty swallowing, NOTES acid reflux, denies ulcers, NOTES vomiting, denies jaundice/hepatitis, denies gallbladder problems, denies black or tarry stools, NOTES hemorrhoids, NOTES bleeding from rectum, NOTES diverticulitis, NOTES constipation, denies diarrhea, denies loss of stool control, and NOTES hernias. Kidney/Bladder: The patient denies kidney stones, NOTES urine infections, and NOTES bloody urine. Skin: The patient denies a history of skin cancer, denies bleeding/changing moles, and denies a history of skin rash. Neurologic: The patient denies a history of epilepsy/convulsions, denies headaches, denies head/spinal injuries, and denies stroke/TIA. Psychiatric: The patient denies psychiatric medications, denies depression, and denies voices, denies substance abuse. Endocrine: The patient NOTES thyroid disorders, denies diabetes, and denies hormonal problems. Hematologic: The patient NOTES a history of bruising, NOTES bleeding, and NOTES anemia, NOTES bloodclots. Infections: The patient denies a history of measles and mumps, denies rheumatic fever, and denies sexually transmitted diseases. Musculoskeletal: The patient denies back pain/injury, denies back problems, denies sciatica, deniesknee/foot trouble, NOTES arthritis, or NOTES gout. When was patient's last Mammogram screening? 2019 Last Colonoscopy: 2015 Emeli Jovel RN documented [facility] this [facility] History of Present illness Narrative* Amelia Jimenez, [facility] - 01/27/2022 11:15 AM EDT Radiology Service Progress Note PATIENT NAME: Yris Villagomez DATE OF SERVICE: February 10, 2022 TIME: 2:31 PM PATIENT IDENTITY VERIFICATION COMPLETED USING TWO (2) IDENTIFIERS: Name and Date of confirmedby patient verbally. FALL SCREENING: Has the patient had 2 falls in the last year or 1 fall with injury or currently using an Ambulatory Assistive Device (Walker, Cane, Wheelchair, Crutches, etc.)? No PATIENT GENDER DATA: Female. status: : No status: NO. PATIENT RELEVANT IMPLANT DATA REVIEWED: Not Applicable RADIOLOGY DEPARTMENT: Ultrasound PERIPHERAL IV DATA: Not applicable SIGNED BY: Amelia Jimenez RDMS RVT February 10, 2022 2:31 PM documented in this encounterAkron [facility]10-25-2022 History of Present illness Narrative* Fredrick Walker RN - 01/24/2022 4:33 PM EDT INSIGHT CDM TELEPHONIC OUTREACH Provider Action/FYI: Call to Pt left a message to verify CHF/ CKD or other symptoms or needs. Contact made with patient: No - Left message Silver my name is Diane Alcala RN your Water Leak Repairer from the [facility] I am callingtoday for your bi-weekly check in. I am sorry I missed your call. I will reach out to you again tomorrow. (if the third call I will reach out to you again next week) Enter next patient outreach date for the following business day using the Track Pt Outreach. End outreach. Diane Alcala RN January 24, 2022 4:33 PM documented in this encounterAk[facility]10-20-2022 Miscellaneous Notes* Telephone Encounter - Nuvia Grissom APRN.CNP - 01/19/2022 8:57 AM EDT Reviewed in appointment. Nuvia Grissom APRN.CNP * Telephone Encounter - Helga Nicole RN - 01/18/2022 1:12 PM EDT Patient call in for feeling fatigue after vomiting Sunday evening. Patient has not had an appetite.Patient has been trying to drink fluids. Encouraged patient to drink more fluids. Patient calls after her home health nurse told her she should give us a call. Nurse Triage assessment completed with protocol recommending for disposition of See PCP in 24 hours. Patient scheduled to see Nuvia Grissom this evening. Care advice reviewed with patient, patient stated understanding. Patient advised to contact office or seek evaluation in urgent care or ER if symptoms persist or gets worse. Reason for Disposition [1] MODERATE weakness (i.e., interferes with work, school, normal activities) AND [2] persists >3 days Answer Assessment - Initial Assessment Questions 1. DESCRIPTION: weak 2. SEVERITY: Mild weakness, took her a while to get dressed, had to sit down a couple of times, states that she is feeling better, appetite has been poor since vomiting Sunday 3. ONSET: Sunday after being sit all night, vomited a lot, after that had dry heaves 4. CAUSE: States did not have appetite in awhile, was vomiting. 5. MEDICINES: Denies 6. OTHER SYMPTOMS: Vomiting, has not vomited for a couple of days. Thought she was constipated on Sunday took Miralax Sunday night and Sunday morning. Protocols used: Weakness (Generalized) and [id number] documented in this encounterAk[facility]10-19-2022 History of Present illness Narrative* Nuvia Grissom, PHOTOENGRAVING HELPER.SHEEP CLIPPER - 01/18/2022 6:11 PM EDT CC: Patient presents with: Vomiting: Vomiting Sunday evening, feeling weak HPI Yris Villagomez is a 81 year old female who presents today for vomiting and feeling weak. Sunday night started to feel like her abdomen was firm and started vomiting at 8pm and threw up forthe next 4 hours and became very sweaty and hot. Has not thrown up since but has not felt well and has had no appetite. Home health nurse checked her BP today and it was 91/67 so encouraged to be seen by PCP. Denies any dietary changes this weekend but did eat a leftover tuna fish sandwich from Sunday night on Sunday night a few hours prior to the vomiting. Today was able to eat a baked potato pork tenderloin, and toasted cheese sandwich wihtout issue. Lower abdomen feels sore at times but not at this time. Denies nuasea, vomiting, diarrhea, constipation, chest pain, or edema. Last BM was Sunday morning and was soft formed and brown. Usually goes a day or two between bowel movement. Still is very tired and feels like she has no energy. This morning felt like her heart was poundingfor about a minute while sitting. Often gets palpitations so unsure if it was due to her heart issues. 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 Denies chest pain, shortness of breath, or edema. REVIEW OF SYSTEMS General: no fevers, no chills, no night sweats, no recurrent infections, no change in appetite, no change in energy, and no significant changes in weight HEENT: no frequent or significant headaches, no visual changes, no nose bleeds, no sinus or nasal problems Respiratory: no cough, no wheezing, no shortness of breath, no hemoptysis Cardiovascular: no chest pain, no chest pressure, and no swelling GI: See HPI : No history of dysuria, frequency or incontinence Skin: Negative for lesions, rash, and itching Neurologic: No headache, weakness, numbness, tingling, dizziness, syncope. 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/12/2008 Chest pain Chronic kidney disease (CKD), stage III (moderate) ([facility]) 07/27/2016 Coronary artery disease due to calcified coronary lesion 06/22/2021 Diverticulitis Diverticulosis of colon (without mention of hemorrhage) Diverticulosis of colon with hemorrhage DVT (deep venous thrombosis) ([facility]) After knee surgery Dysmetabolic syndrome X Hemorrhage of gastrointestinal tract, unspecified Hernia of other specified sites of abdominal cavity without mention of obstruction or gangrene 2006 Patient has 2 or 3 hernias at abdomen and groin Internal hemorrhoids without mention of complication Other and unspecified hyperlipidemia PE (pulmonary embolism) after hernia surgery Umbilical hernia 07/22/2009 Unspecified essential hypertension Unspecified gastritis and gastroduodenitis 03/12/2008 Unspecified hypothyroidism PAST SURGICAL HISTORY Procedure Laterality Date ARTHRP ACETBLR/PROX FEM PROSTC AGRFT/ALGRFT 2002 Hip replacement, total, left ARTHRP ACETBLR/PROX FEM PROSTC AGRFT/ALGRFT 2002 left hip COLONOSCOPY FLX DX W/COLLJ SPEC WHEN PFRMD 09/15/1998 Colonoscopy COLONOSCOPY FLX DX W/COLLJ SPEC WHEN PFRMD 08/07/2005 Colonoscopy COLONOSCOPY FLX DX W/COLLJ SPEC WHEN PFRMD 06/23/2011 inpt [facility] Colonoscopy COLONOSCOPY FLX DX W/COLLJ SPEC WHEN PFRMD 03/05/14 Colonoscopy COLSC FLX W/REMOVAL LESION BY HOT BX FORCEPS 03/12/08 EGD TRANSORAL BIOPSY SINGLE/MULTIPLE 03/12/08 EGD TRANSORAL BIOPSY SINGLE/MULTIPLE 09-30-12 ESOPHAGOGASTRODUODENOSCOPY TRANSORAL DIAGNOSTIC 06/10/2015 EGD HYSTERECTOMY, REVISE VAGINA; COLPECTOMY 1980 Hysterectomy with bladder repair still ovaries ARTEAGA W/O FACETEC FORAMOT/DSC 04/03 VRT SGM CRV 2001 Discectomy and fusion, cervical LAPS SURG RPR RECURRENT INGUINAL HERNIA 07/22/2009 LIGJ DIVJ &/EXCJ VARICOSE VEIN CLUSTER 1 LEG 1984 Varicose Vein Surgery PAST SURGICAL HISTORY OF 2001 cervical spine repair PAST SURGICAL HISTORY OF 11/04/14 cystocele RPR 1ST INGUN HRNA AGE 5 YRS/> REDUCIBLE 1980 Hernia repair, inguinal RPR 1ST INGUN HRNA AGE 5 YRS/> REDUCIBLE 1980 Hernia repair, inguinal, bilateral RPR UMBILICAL HRNA 5 YRS/> REDUCIBLE 07/22/2009 THYROIDECTOMY TOTAL/COMPLETE 1994 TONSILLECTOMY AND ADENOIDECTOMY HX 1967 TONSILLECTOMY PRIMARY/SECONDARY <AGE 12 Tonsillectomy X-RAY PLACEMENT, VEIN FILTER 08/13/2009 ALLERGIES Iodine MEDICATIONS traMADol (ULTRAM) 50 mg tablet Take 1 tablet by mouth every 6 hours as needed for up to 99 days. rosuvastatin (CRESTOR) 5 mg tablet Take 1 tablet by mouth once daily. enoxaparin (LOVENOX) 60 mg/0.6 mL syrg Inject 60 mg subcutaneously once daily. levothyroxine (SYNTHROID) 88 mcg tablet Take 1 tablet by mouth once daily. torsemide (DEMADEX) 10 mg tablet Take 2 tablets by mouth once daily. tafamidis (VYNDAMAX) 61 mg Take 1 capsule by mouth once daily. INV [id number] 150 MG/ML OR PLACEBO INJECTION (IRB 20-) Inject 0.3 mL subcutaneously every 4 weeks. For Investigational Drug Use Only. PI: Evi Zamora MD. Inject 0.3 mL subcutaneously every 4 weeks. EXP: 2 hours at room temp. Protect from light. vitamin A (AQUASOL A) 10,000 unit capsule Take 10,000 Units by mouth Every 3 Days. cholecalciferol, vitamin D3, (VITAMIN D3 ORAL) Take 5,000 Units by mouth once daily. aspirin, enteric coated (ASPIRIN, ENTERIC COATED) 81 mg EC tablet Take 1 tablet by mouth once daily. polyethylene glycol 3350 (MIRALAX, GLYCOLAX) 17 gram/dose powder as needed. One capful with a full glass of water, 2-3 times a day Or as directed FAMILY HISTORY Problem Relation Age of Onset Coronary Artery Disease Mother 83, CVA Colon Cancer Mother Coronary Artery Disease Father [place] 45 Cancer Brother multiple myeloma None Daughter None Daughter other (heart attack) Son other (fibramyalgia) Son other (blood clots in lungs) Son Social History Tobacco Use Smoking status: Never Smokeless tobacco: Never Vaping Use Vaping Use: Never used Substance Use Topics Alcohol use: No Drug use: No PHYSICAL EXAM BP 112/70 Pulse 83 Resp 16 Wt 61.7 kg (136 lb) SpO2 96% BMI 22.98 kg/m General Appearance: well appearing, in no acute distress, alert Skin: Skin color, texture, turgor normal for age; Eyes: conjunctiva pink and moist, no icterus, sclera white, non-injected Neck: Thyroid normal size and symmetric without palpable nodules, No adenopathy Lymph nodes: No cervical lymphadenopathy and No supraclavicular lymphadenopathy Lungs: Lungs clear to auscultation. No wheezing, rhonchi, rales. Heart: RRR without murmur, gallop, or rubs. No ectopy Abdomen: Abdomen soft, Bowel sounds normal. No masses, organomegaly. Some tenderness to her lower ab Extremities: No deformities, edema, skin discoloration, clubbing or cyanosis. Good capillary refill. Neurological: Gait normal. symmetric. Sensation grossly intact. speech normal, mental status intact Health maintenance reviewed with patient: SHINGRIX VACCINE(3 of 3) due on 03/16/2020 DEPRESSION ASSESSMENT Never done COVID-19 VACCINE(4 - Booster for Moderna series) due on 05/18/2021 LDL CHOLESTEROL due on 12/29/2022 DTAP,TDAP,TD(2 - Td or Tdap) due on 09/25/2024 DIABETES SCREEN due on 12/29/2024 BONE DENSITY Completed INFLUENZA Completed PNEUMOCOCCAL: 65+ Completed ADVANCE DIRECTIVE DISCUSSION Discontinued DATA REVIEWED: No new labs EKG Interpretation: RHYTHM: Normal sinus rhythm at 78 beats per minute - minimum voltage criteria for LVH/ may be normal variant. AXIS: Left axis deviation INTERVALS: Normal VA interval QRS COMPLEX: Normal ST SEGMENT: Inferior and Anterior Infarct age undetermined. QT INTERVAL: Normal COMPARED WITH PRIOR: unchanged except the voltage criteria for LVH was not on last EKG ASSESSMENT/PLAN: 1. Lower abdominal tenderness - ICD9: 789.69, ICD10: R10.819 (primary diagnosis) - urine dip pos for leuk and trace blood - will send for further analysis and culture - UA DIP, URINE (POC) - URINALYSIS, WITH MICROSCOPIC - URINE CULTURE - CBC + DIFF - COMP METABOLIC PANEL - MAGNESIUM BLD 2. Other fatigue - ICD9: 780.79, ICD10: R53.83 - UA DIP, URINE (POC) - ECG COMPLETE - CBC + DIFF - COMP METABOLIC PANEL - MAGNESIUM BLD 3. Palpitations - ICD9: 785.1, ICD10: R00.2 - possibly her chronic palpitations possibly from vomiting and dehydration. - ECG COMPLETE - CBC + DIFF - COMP METABOLIC PANEL - MAGNESIUM BLD 4. Vomiting without nausea, unspecified vomiting type - ICD9: 787.03, ICD10: R11.11 - vomiting resolved and appetite improving - discussed - food toxin versus viral versus other cause. - UA DIP, URINE (POC) - CBC + DIFF - COMP METABOLIC PANEL - MAGNESIUM BLD Prescription instructions reviewed with patient as applicable. Potential red flag symptoms discussed with the patient. Reviewed appropriate action plan to take if red flag symptoms occur. Patient agreeable to treatment plan. Nuvia Grissom APRN.CNP documented in this encounterAk[facility]10-14-[facility]22 History of Present illness Narrative* Fredrick Walker RN - 01/13/2022 9:00 AM EDT INSIGHT CDM TELEPHONIC OUTREACH Provider Action/FYI: Called Pt related to CHF/ CKD or other symptoms, left a message. Contact made with patient: No - Left message Hello my name is Diane Alcala RN your Water Leak Repairer [facility] I am callingtoday for your bi-weekly check in. I am sorry I missed your call. I will reach out to you again tomorrow. (if the third call I will reach out to you again next week) Enter next patient outreach date for the following business day using the Track Pt Outreach. End outreach. Diane Alcala RN January 13, 2022 9:00 AM documented in this encounterAkron [facility]10-13-2022 History of Present illness Narrative* Fredrick Walker RN - 01/12/2022 2:03 PM EDT INSIGHT CDM TELEPHONIC OUTREACH Provider Action/FYI: Called Pt left a message to verify CHF/ CKD symptoms or needs. Contact made with patient: No - Left message Hello my name is Diane Alcala RN your Water Leak Repairer [facility] I am callingtoday for your bi-weekly check in. I am sorry I missed your call. I will reach out to you again tomorrow. (if the third call I will reach out to you again next week) Enter next patient outreach date for the following business day using the Track Pt Outreach. End outreach. Diane Alcala RN January 12, 2022 2:03 PM documented in this encounterAkron [facility]10-06-2022 Miscellaneous Notes* Telephone Encounter - LAKSHMI Galvin - 01/05/2022 3:51 PM EDT SW called pt to inform her that her Lovenox medication is available for pickup. Pt reports she willbe able to pick it up on 01/09/22. Medication is secured in Sw's office. LAKSHMI Galvin-S documented in this encounterAk[facility]10-03-2022 History of Present illness Narrative* Nuvia Grissom, PHOTOENGRAVING HELPER.SHEEP CLIPPER - 01/02/2022 1:41 PM EDT CC: Patient presents with: Recheck: 3 month follow up Immunizations: Flu vaccination HPI Yris Villagomez is a 81 year old female who presents today for routine follow up but has a question on some urinary hesitancy. Has had a few times where she feels she has to urinate but is unable to go. This happened 2 times during the night last week and once yesterday. States this can occur with her IBS constipation. She has not had any issues today and did have a soft formed brown stool yesterday. Denies fever, chills, pain with urination, abdominal pain, low back pain, foul smelling urine or abnormal vaginal drainage. Is currently in a medical study for her amyloidosis and has been for the past 2 years. Sees cardiology for this every 3 months. Was last seen 1 month ago for routine exam without any concerns noted. Chronic pain, uses tramadol for legs and feet pain from varicose veins and has been using this sparingly for 4-5 years. Last prescription was over a year ago for 90 pills. Typically pain is controlled with tylenol. Hypothyroidism: Takes medication as prescribed. Denies any abnormal changes in weight, energy, or temperature tolerance. HTN and HLD: Ms. Villagomez indicates that she is feeling well and denies any symptoms referable toelevated blood pressure. Specifically denies headache, chest pain, palpitations, dyspnea, and peripheral edema. Patient denies any side effects of her medication(s) and is compliant with their regimen. Last 3 Encounter BP Readings: Date: BP: 01/02/2022 112/66 12/06/2021 119/75 10/06/2021 108/80 REVIEW OF SYSTEMS General: no fevers, no chills, no night sweats, no recurrent infections, no change in appetite, no change in energy, and no significant changes in weight Respiratory: no cough, no wheezing, no shortness of breath, no hemoptysis Cardiovascular: no chest pain, no chest pressure, no palpitations, and no swelling GI: No nausea, vomiting, or diarrhea : See HPI [employer]: Negative for abnormal vaginal bleeding, abnormal vaginal discharge Skin: Negative for lesions, rash, and itching Neurologic: No headache, weakness, numbness, tingling, dizziness, syncope. 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/12/2008 Chest pain Chronic kidney disease (CKD), stage III (moderate) (HCC) 07/27/2016 Coronary artery disease due to calcified coronary lesion 06/22/2021 Diverticulitis Diverticulosis of colon (without mention of hemorrhage) Diverticulosis of colon with hemorrhage DVT (deep venous thrombosis) ([facility]) After knee surgery Dysmetabolic syndrome X Hemorrhage of gastrointestinal tract, unspecified Hernia of other specified sites of abdominal cavity without mention of obstruction or gangrene 2006 Patient has 2 or 3 hernias at abdomen and groin Internal hemorrhoids without mention of complication Other and unspecified hyperlipidemia PE (pulmonary embolism) after hernia surgery Umbilical hernia 07/22/2009 Unspecified essential hypertension Unspecified gastritis and gastroduodenitis 03/12/2008 Unspecified hypothyroidism PAST SURGICAL HISTORY Procedure Laterality Date ARTHRP ACETBLR/PROX FEM PROSTC AGRFT/ALGRFT 2002 Hip replacement, total, left ARTHRP ACETBLR/PROX FEM PROSTC AGRFT/ALGRFT 2002 left hip COLONOSCOPY FLX DX W/COLLJ SPEC WHEN PFRMD 09/15/1998 Colonoscopy COLONOSCOPY FLX DX W/COLLJ SPEC WHEN PFRMD 08/07/2005 Colonoscopy COLONOSCOPY FLX DX W/COLLJ SPEC WHEN [facility] COLONOSCOPY FLX DX W/COLLJ SPEC WHEN PFRMD 03/05/14 Colonoscopy COLSC FLX W/REMOVAL LESION BY HOT BX FORCEPS 03/12/08 EGD TRANSORAL BIOPSY SINGLE/MULTIPLE 03/12/08 EGD TRANSORAL BIOPSY SINGLE/MULTIPLE 09-30-12 ESOPHAGOGASTRODUODENOSCOPY TRANSORAL DIAGNOSTIC 06/10/2015 EGD HYSTERECTOMY, REVISE VAGINA; COLPECTOMY 1980 Hysterectomy with bladder repair still ovaries ARTEAGA W/O FACETEC FORAMOT/DSC 1/ VRT SGM CRV 2001 Discectomy and fusion, cervical LAPS SURG RPR RECURRENT INGUINAL HERNIA 07/22/2009 LIGJ DIVJ &/EXCJ VARICOSE VEIN CLUSTER 1 LEG 1985 Varicose Vein Surgery PAST SURGICAL HISTORY OF 2001 cervical spine repair PAST SURGICAL HISTORY OF 11/04/14 cystocele RPR 1ST INGUN HRNA AGE 5 YRS/> REDUCIBLE 1980 Hernia repair, inguinal RPR 1ST INGUN HRNA AGE 5 YRS/> REDUCIBLE 1980 Hernia repair, inguinal, bilateral RPR UMBILICAL HRNA 5 YRS/> REDUCIBLE 07/22/2009 THYROIDECTOMY TOTAL/COMPLETE 1994 TONSILLECTOMY AND ADENOIDECTOMY HX 1967 TONSILLECTOMY PRIMARY/SECONDARY <AGE 12 Tonsillectomy X-RAY PLACEMENT, VEIN FILTER 08/13/2009 ALLERGIES Iodine MEDICATIONS rosuvastatin (CRESTOR) 5 mg tablet^Take 1 tablet by mouth once daily.^Disp: 90 tablet^Rfl: 3 enoxaparin (LOVENOX) 60 mg/0.6 mL syrg^Inject 60 mg subcutaneously once daily.^Disp: ^Rfl: ZINC ORAL^Take 30 mg by mouth once daily.^Disp: ^Rfl: (Patient not taking: Reported on 12/06/2021) levothyroxine (SYNTHROID) 88 mcg tablet^Take 1 tablet by mouth once daily.^Disp: 90 tablet^Rfl: 3 potassium chloride ER (K-DUR, KLOR-CON) 20 mEq tablet^Take 1 tablet by mouth once daily.^Disp: 60 tablet^Rfl: 3 (Patient not taking: No sig reported) torsemide (DEMADEX) 10 mg tablet^Take 2 tablets by mouth once daily.^Disp: 180 tablet^Rfl: 3 tafamidis (VYNDAMAX) 61 mg^Take 1 capsule by mouth once daily.^Disp: 30 capsule^Rfl: 11 INV [id number] 150 MG/ML OR PLACEBO INJECTION (IRB 20-)^Inject 0.3 mL subcutaneously every 4 weeks. For Investigational Drug Use Only. PI: Evi Zamora MD. Inject 0.3 mL subcutaneously every 4 weeks. EXP: 2 hours at room temp. Protect from light.^Disp: ^Rfl: vitamin A (AQUASOL A) 10,000 unit capsule^Take 10,000 Units by mouth Every 3 Days.^Disp: ^Rfl: traMADol (ULTRAM) 50 mg tablet^Take 1 tablet by mouth every 6 hours as needed for up to 99 days.^Disp: 90 tablet^Rfl: 0 famotidine (PEPCID) 20 mg tablet^Take 1 tablet by mouth twice daily.^Disp: 180 tablet^Rfl: 2 (Patient not taking: Reported on 12/06/2021) cholecalciferol, vitamin D3, (VITAMIN D3 ORAL)^Take 5,000 Units by mouth once daily.^Disp: ^Rfl: aspirin, enteric coated (ASPIRIN, ENTERIC COATED) 81 mg EC tablet^Take 1 tablet by mouth once daily.^Disp: ^Rfl: polyethylene glycol 3350 (MIRALAX, GLYCOLAX) 17 gram/dose powder^as needed. One capful with a full glass of water, 2-3 times a day Or as directed ^Disp: ^Rfl: FAMILY HISTORY Problem Relation Age of Onset Coronary Artery Disease Mother 83, CVA Colon Cancer Mother Coronary Artery Disease Father [place] 45 Cancer Brother multiple myeloma None Daughter None Daughter other (heart attack) Son other (fibramyalgia) Son other (blood clots in lungs) Son Social History Tobacco Use Smoking status: Never Smokeless tobacco: Never Vaping Use Vaping Use: Never used Substance Use Topics Alcohol use: No Drug use: No PHYSICAL EXAM BP 112/66 Pulse 68 Resp 16 Wt 61.7 kg (136 lb) BMI 22.98 kg/m General Appearance: well appearing, in no acute distress, alert Skin: Skin color, texture, turgor normal for age; Eyes: conjunctiva pink and moist, no icterus, sclera white, non-injected Neck: Thyroid normal size and symmetric without palpable nodules, No adenopathy Lymph nodes: No cervical lymphadenopathy and No supraclavicular lymphadenopathy Lungs: Lungs clear to auscultation. No wheezing, rhonchi, rales. Heart: RRR without murmur, gallop, or rubs. No ectopy Abdomen: Abdomen soft, non-tender. Bowel sounds normal. No masses, organomegaly BUE Extremities: No deformities, edema, skin discoloration, clubbing or cyanosis. Good capillary refill. Health maintenance reviewed with patient: SHINGRIX VACCINE(3 of 3) due on 03/16/2020 DEPRESSION ASSESSMENT Never done COVID-19 VACCINE(4 - Booster for Moderna series) due on 05/18/2021 INFLUENZA(1) due on 12/01/2021 LDL CHOLESTEROL due on 12/29/2022 DTAP,TDAP,TD(2 - Td or Tdap) due on 09/25/2024 DIABETES SCREEN due on 12/29/2024 BONE DENSITY Completed PNEUMOCOCCAL: 65+ Completed ADVANCE DIRECTIVE DISCUSSION Discontinued DATA REVIEWED: Most recent labs ASSESSMENT/PLAN: 1. Essential hypertension - ICD9: 401.9, ICD10: I10 (primary diagnosis) - good control - Continue current medication(s) - Encouraged dietary sodium restriction/DASH diet - Recommended regular aerobic exercise. - Recommend home blood pressure monitoring, to bring results in on next visit - Goal of BP <130/80 2. Acquired hypothyroidism - ICD9: 244.9, ICD10: E03.9 - Instructed patient on importance of taking on an empty stomach either first thing in the morning or at bedtime. - TSH BLD 3. Urinary hesitancy - ICD9: 788.64, ICD10: R39.11 - only has happened a few times over the past week. - URINALYSIS, WITH MICROSCOPIC - URINE CULTURE - follow up if no improvement or this begins to happen more often so further evaluation can occur. 4. Mixed hyperlipidemia - ICD9: 272.2, ICD10: E78.2 - good control - Continue current medication. - Encouraged following a low fat, low cholesterol diet. 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 Cardiac amyloidosis (HCC) - ICD9: 277.39, 425.7, ICD10: E85.4, I43 - stable at this time - continue with study and recommendation by cardiology. 7. Need for influenza vaccination - ICD9: V04.81, ICD10: Z23 - INFLUENZA SEASONAL QUADRIVALENT HIGH DOSE AGE 65+ Prescription instructions reviewed with patient as applicable. Potential red flag symptoms discussed with the patient. Reviewed appropriate action plan to take if red flag symptoms occur. Patient agreeable to treatment plan. Nuvia Grissom APRN.CNP documented in this encounter[facility] Miscellaneous Notes* Telephone Encounter - Lizbeth Mark LPN - 12/23/2021 3:15 PM EDT Last lipid panel was done in August. * Telephone Encounter - Hayley Adorno Pss - 12/23/2021 9:50 AM EDT Patient asking if Dr. Pisano would like a lipid panel done prior to office visit on 01/02. Patient having labs drawn on 12/29. Please advise and call patient. documented in this encounterAkron [facility]09-23-2022 Miscellaneous Notes* Telephone Encounter - Corinne Hodgson LPN - 12/23/2021 12:03 PM EDT Patient has been identified by name and date of : Yes Patient phones for refill(s): Requested Prescriptions Pending Prescriptions Disp Refills traMADol (ULTRAM) 50 mg tablet 90 tablet 0 Sig: Take 1 tablet by mouth every 6 hours as needed for up to 99 days. Date of last office visit in primary care: 09/08/2021 Last 2 Encounter Wt Readings: Date: Wt: 12/06/2021 63 kg (139 lb) 10/06/2021 62.3 kg (137 lb 6.4 oz) Previous labs/tests for medication: Not applicable Please advise. Thank you. Corinne Hodgson LPN * Telephone Encounter - Hayley Adorno Pss - 12/23/2021 9:42 AM EDT Patient has been identified by name and date of : Yes Last office visit in this department: 09/08/2021 RX INSTRUCTIONS: Patient aware RX will be sent to pharmacy. No need to notify patient. Form to be faxed to pharmacy. Patient phones requesting refills as follows: Requested Prescriptions Pending Prescriptions Disp Refills traMADol (ULTRAM) 50 mg tablet 90 tablet 0 Sig: Take 1 tablet by mouth every 6 hours as needed for up to 99 days. Please review and advise. Hayley Adorno Pss documented in this encounterAkron [facility]22 History of Present illness Narrative* Fredrick Walker RN - 12/12/2021 9:29 AM EDT [facility] TELEPHON[facility]REACH Provider Action/FYI: Spk with Pt she denies CHF/ CKD symptoms or needs. Contact made with patient: Yes Patient identified by name and . Discussed care with patient It s nice talking to you again. As a reminder, this is our bi-weekly check-in where I will be asking you questions about your health. This will only take a few minutes of your time. Is this a good time? Yes Symptoms What Chronic Disease(s) does the patient have: CHF and CKD Do you check your blood pressures at home? Yes, Enter readings: 112/70 Do you have new or worse shortness of breath with activity? No Do you have new or worsening trouble breathing while lying flat? No Do you have new or worsening swelling of legs, feet or ankles? No Do you feel like you are dehydrated for any reason, including not being able to eat or drink normally, or having less urine/much darker urine than normal for you? No Do you check your daily weight at home? Yes, Have you noticed a sudden gain in weight greater than three pounds in a day or three pounds in a week? No Are you having any other symptoms that your PCP needs to know about? No Symptom Escalation The patient required an escalation for symptom(s)? No Medications Do you have any questions about taking your medication or which medications you should be on? No Do you need any medication refills at this time, including any of the medications you might take only when needed? No Social We would like to make sure you have what you need so that your basic needs are met- including your personal safety, food, housing and medications? Would you like to speak with a social work child study team director to help give you support for any of these needs? No It can be normal to feel anxious or down during a time like this. Would you like to talk to a mental health professional about how you have been feeling? No Closing Thank you for taking the time to talk with me today. We want to work with you to ensure that we arekeeping your medical condition(s) well-controlled and to keep you healthy and out of the doctor's office or hospital. It s also not too late for me to sign you up for automated weekly questionnaires through [employer]. This is an easy way for us to stay connected each week. Are you interested? No, I understand. We can always sign you up in the future if you change your mind. Just as a reminder, will continue to call you every other week to check in on your health. Our calls should take 10-15 minutes or less. Remember, if you have concerns in between our calls, please call your PCP's office right away. Thank you. Enter next patient outreach date for two weeks on the same day of the week as today in the Track PtOutreach and End outreach. Diane Alcala RN December 12, 2021 9:29 AM documented in this encounterAkron [facility]22 History of Present illness Narrative* Rito Valera MD - 12/06/2021 2:11 PM EDT Images from the original note were not included. [facility] SECTION OF HEART FAILURE and CARDIAC TRANSPLANT MEDICINE OUTPATIENT VISIT DATE December 06, 2021 OUTPATIENT VISIT TYPE Established Patient PRIMARY CARE PHYSICIAN: Gab Pisano [address] [phone] CHIEF COMPLAINT: Follow-up NURSING INTAKE (Patient s concerns and/or recent hospitalizations/ER visits): HF Nursing Assessment: Interim Hospitalizations and/or ER visits:no Chest Pain: no Skipping or irregular heartbeats: occasional Shortness of breath at rest: no Shortness of breath with activity: yes Cough: dry Waking up in the middle of the night gasping for air: no Lightheadedness or dizziness: yes Feeling like you are going to pass out: no Actually passing out: no Poor energy level: moderate Unintentional weight gain: no Unintentional weight loss: no Swelling in your legs,feet, abdomen: no Filling up quickly when you eat: yes and describes a terrible appetite HISTORY OF PRESENT ILLNESS: Doing well. Denies orthopnea, PND, occasionally have insomnia, palpitations, syncope, dizziness, occasional edema (Rx resting). Week 73 of CardioTTRansform. 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/12/2008 Chest pain Chronic kidney disease (CKD), stage III (moderate) (HCC) 07/27/2016 Coronary artery disease due to calcified coronary lesion 06/22/2021 Diverticulitis Diverticulosis of colon (without mention of hemorrhage) Diverticulosis of colon with hemorrhage DVT (deep venous thrombosis) (HCC) After knee surgery Dysmetabolic syndrome X Hemorrhage of gastrointestinal tract, unspecified Hernia of other specified sites of abdominal cavity without mention of obstruction or gangrene 2006 Patient has 2 or 3 hernias at abdomen and groin Internal hemorrhoids without mention of complication Other and unspecified hyperlipidemia PE (pulmonary embolism) after hernia surgery Umbilical hernia 07/22/2009 Unspecified essential hypertension Unspecified gastritis and gastroduodenitis 03/12/2008 Unspecified hypothyroidism PAST SURGICAL HISTORY Procedure Laterality Date ARTHRP ACETBLR/PROX FEM PROSTC AGRFT/ALGRFT 2002 Hip replacement, total, left ARTHRP ACETBLR/PROX FEM PROSTC AGRFT/ALGRFT 2002 left hip COLONOSCOPY FLX DX W/COLLJ SPEC WHEN PFRMD 09/15/1998 Colonoscopy COLONOSCOPY FLX DX W/COLLJ SPEC WHEN PFRMD 08/07/2005 Colonoscopy COLONOSCOPY FLX DX W/COLLJ SPEC WHEN [facility]MD [facility] COLONOSCOPY FLX DX W/COLLJ SPEC WHEN PFRMD 03/05/14 Colonoscopy COLSC FLX W/REMOVAL LESION BY HOT BX FORCEPS 03/12/08 EGD TRANSORAL BIOPSY SINGLE/MULTIPLE 03/12/08 EGD TRANSORAL BIOPSY SINGLE/MULTIPLE 09-30-12 ESOPHAGOGASTRODUODENOSCOPY TRANSORAL DIAGNOSTIC 06/10/2015 EGD HYSTERECTOMY, REVISE VAGINA; COLPECTOMY 1980 Hysterectomy with bladder repair still ovaries ARTEAGA W/O FACETEC FORAMOT/DSC 1/2 VRT SGM CRV 2001 Discectomy and fusion, cervical LAPS SURG RPR RECURRENT INGUINAL HERNIA 07/22/2009 LIGJ DIVJ &/EXCJ VARICOSE VEIN CLUSTER 1 LEG 1985 Varicose Vein Surgery PAST SURGICAL HISTORY OF 2001 cervical spine repair PAST SURGICAL HISTORY OF 11/04/14 cystocele RPR 1ST INGUN HRNA AGE 5 YRS/> REDUCIBLE 1980 Hernia repair, inguinal RPR 1ST INGUN HRNA AGE 5 YRS/> REDUCIBLE 1980 Hernia repair, inguinal, bilateral RPR UMBILICAL HRNA 5 YRS/> REDUCIBLE 07/22/2009 THYROIDECTOMY TOTAL/COMPLETE 1994 TONSILLECTOMY AND ADENOIDECTOMY HX 1968 TONSILLECTOMY PRIMARY/SECONDARY <AGE 12 Tonsillectomy X-RAY PLACEMENT, VEIN FILTER 08/13/2009 SOCIAL HISTORY Social History Tobacco Use Smoking status: Never Smokeless tobacco: Never Vaping Use Vaping Use: Never used Substance Use Topics Alcohol use: No Drug use: No FAMILY HISTORY Problem Relation Age of Onset Coronary Artery Disease Mother 83, CVA Colon Cancer Mother Coronary Artery Disease Father [place] 45 Cancer Brother multiple myeloma None Daughter None Daughter other (heart attack) Son other (fibramyalgia) Son other (blood clots in lungs) Son ALLERGIES: ALLERGIES Allergen Reactions Iodine Hives CURRENT MEDICATIONS: rosuvastatin (CRESTOR) 5 mg tablet^Take 1 tablet by mouth once daily.^Disp: 90 tablet^Rfl: 3 enoxaparin (LOVENOX) 60 mg/0.6 mL syrg^Inject 60 mg subcutaneously once daily.^Disp: ^Rfl: levothyroxine (SYNTHROID) 88 mcg tablet^Take 1 tablet by mouth once daily.^Disp: 90 tablet^Rfl: 3 torsemide (DEMADEX) 10 mg tablet^Take 2 tablets by mouth once daily.^Disp: 180 tablet^Rfl: 3 tafamidis (VYNDAMAX) 61 mg^Take 1 capsule by mouth once daily.^Disp: 30 capsule^Rfl: 11 [facility]-[id number] 150 MG/ML OR PLACEBO INJECTION (IRB 20-)^Inject 0.3 mL subcutaneously every 4 weeks. For Investigational Drug Use Only. PI: Evi Zamora MD. Inject 0.3 mL subcutaneously every 4 weeks. EXP: 2 hours at room temp. Protect from light.^Disp: ^Rfl: vitamin A (AQUASOL A) 10,000 unit capsule^Take 10,000 Units by mouth Every 3 Days.^Disp: ^Rfl: traMADol (ULTRAM) 50 mg tablet^Take 1 tablet by mouth every 6 hours as needed for up to 99 days.^Disp: 90 tablet^Rfl: 0 cholecalciferol, vitamin D3, (VITAMIN D3 ORAL)^Take 5,000 Units by mouth once daily.^Disp: ^Rfl: aspirin, enteric coated (ASPIRIN, ENTERIC COATED) 81 mg EC tablet^Take 1 tablet by mouth once daily.^Disp: ^Rfl: polyethylene glycol 3350 (MIRALAX, GLYCOLAX) 17 gram/dose powder^as needed. One capful with a full glass of water, 2-3 times a day Or as directed ^Disp: ^Rfl: ZINC ORAL^Take 30 mg by mouth once daily.^Disp: ^Rfl: (Patient not taking: Reported on 12/06/2021) potassium chloride ER (K-DUR, KLOR-CON) 20 mEq tablet^Take 1 tablet by mouth once daily.^Disp: 60 tablet^Rfl: 3 (Patient not taking: No sig reported) famotidine (PEPCID) 20 mg tablet^Take 1 tablet by mouth twice daily.^Disp: 180 tablet^Rfl: 2 (Patient not taking: Reported on 12/06/2021) PATIENT ENTERED DATA: No flowsheet data found. No flowsheet data found. PROMIS Global Health - (T-Scores - the mean of general population = 50. Five points is a clinicallymeaningful difference.) 02/05/2017 02/05/2017 Physical T-Score 44.9 44.9 Mental T-Score 50.8 50.8 PHYSICAL EXAMINATION: BP 119/75 Pulse 89 Ht 163.8 cm (5' 4.5 ) Wt 63 kg (139 lb) SpO2 95% BMI 23.49 kg/m General: Well appearing, in no acute distress. Skin: No clubbing, no cyanosis. Eyes: Extra ocular movements intact Oropharynx: Teeth in good repair. Neck: No jugular venous distention, no carotid bruits, carotids have a normal upstroke, no palpablethyromegaly. Lungs: Clear to auscultation bilaterally, no wheezing or rhonchi. Heart: Regular rhythm, PMI not displaced, S1, S2 normal, no S3, no S4, no heaves, no rub and 2/6 systolic murmur. Abdomen: Soft, nontender, bowel sounds normal, no palpable organomegaly, no bruits. Extremities: No peripheral edema . Grade 2/4 distal pulses bilaterally. Neuro: Oriented to person, place and time, alert, cooperative, gait coordinated. CARDIOVASCULAR MEDICINE TESTING: Potassium (mmol/L) Date Value 09/05/2021 4.3 03/02/2021 4.8 Sodium (mmol/L) Date Value 09/05/2021 141 03/02/2021 143 Magnesium (mg/dL) Date Value 09/05/2021 2.2 03/02/2021 2.4 Creatinine (mg/dL) Date Value 09/05/2021 1.09 03/02/2021 1.00 BUN (mg/dL) Date Value 09/05/2021 21 03/02/2021 23 Glucose (mg/dL) Date Value 09/05/2021 102 03/02/2021 99 PT INR (no units) Date Value 11/10/2019 1.2 TSH Date Value 09/08/2021 0.644 mIU/L 03/02/2021 1.910 uU/mL NT Pro BNP (pg/mL) Date Value 05/30/2021 1,259 09/09/2020 1,989 I have personally reviewed the Laboratory Testing. Last EKG Result Conclusion ECG COMPLETE Collected: 12/06/2021 10:47 AM (Preliminary result) Impression: NORMAL SINUS RHYTHM LEFT AXIS DEVIATION INFERIOR MYOCARDIAL INFARCTION , AGE UNDETERMINED ANTEROSEPTAL MYOCARDIAL INFARCTION , AGE UNDETERMINED ABNORMAL ECG IMPRESSION: NYHA Functional Class: II Stage: C heart failure Target weight: current Stable clinically. Stage 1 wtATTR. Heart Failure specific medications (list current, note updates or changes, note prior intolerance): BB: none ACEI/ARB/ARNI: none MRA: none SGLT2: none Diuretic: torsemide Digoxin: none Vasodilators: none Anti-arrhythmics: none Ivabradine: none Other anti-HTN: none PLAN AND RECOMMENDATIONS: Doing well. Labs stable. I personally interviewed, confirmed and edited the above information as obtained by others I personally spent 30 minutes in total time involved in the management and care of this patient. Wediscussed natural history of disease, current treatment options, and future potential treatment options. We discussed diet, exercise, other non-medical management as above. Daija Valera MD [facility] Section Of Heart Failure and Cardiac Transplant Medicine [facility] Desk [id number] [place] [address] documented in this encounterAkron Children'[facility]09-06-2022 History of Present illness Narrative* Winsome Chavez Rust - 12/06/2021 10:04 AM EDT IRB #[id number] CardioTTRansform PI: Dr. Ruby Study Visit: Week 73 I met with the patient for the Study Day 505 Visit for the CardioTTRansform Study. Reaffirmed that the patient still wishes to participate in the study and continues to consent to the study. Has the patient had any changes in her health since the last study visit? Yes worsening of cervicalspinal stenosis. Referred to pain management. Steroid injections scheduled for 12/14/21. Covid Symptoms on 09/26/21; resolved 09/30/21 Has the patient had any outside hospitalizations/ER visits: No Dates and locations: n/a KCCQ completed: Yes [place] QoL completed: Not Required per protocol [id number] completed: Yes Ocular Questionnaire completed: Yes SF-36 completed: Yes Patient Global Assessment of Severity completed: Not Required per protocol Patient Global Assessment of Change completed: Not Required per protocol Blood and urine samples collected per protocol. Discussed with patient the requirement to take a daily Vitamin A supplement. Supplement was provided to patient. She verbalized understanding. Study drug was administered at 15:05 in the patient s Outer area right arm. At home dosing education was reviewed with patient / caregiver. Teach back utilized. Study drug diary was reviewed with the patient and education on how to complete it was provided. She verbalized understanding. Study drug was dispensed to patient for home use. Discussed with the patient the importance of follow up in the study. She verbalized understanding. Patient contact information reaffirmed and updated. Coordinator contact information provided to the patient. Education provided: Protocol required tests/procedures Materials dispensed: None lead clinical research coordinator: Winsome Chavez Rust Pager #: [phone] documented in this encounterAkron [facility]08-12-2022 History of Present illness Narrative* Fredrick Walker RN - 11/11/2021 1:20 PM EDT INSIGHT CDM TELEPHONIC OUTREACH Provider Action/FYI: Spk with Pt she noted no new or worsening symptoms. Pt has unchanged right shoulder pain, anticipates an injection of cortisone soon. Contact made with patient: Yes Patient identified by name and . Discussed care with patient It s nice talking to you again. As a reminder, this is our bi-weekly check-in where I will be asking you questions about your health. This will only take a few minutes of your time. Is this a good time? Yes Symptoms What Chronic Disease(s) does the patient have: CKD Do you check your blood pressures at home? Yes, Enter readings: Not available Do you have new or worse shortness of breath with activity? No Do you feel like you are dehydrated for any reason, including not being able to eat or drink normally, or having less urine/much darker urine than normal for you? No Do you check your daily weight at home? Yes, Have you noticed a sudden gain in weight greater than three pounds in a day or three pounds in a week? No Are you having any other symptoms that your PCP needs to know about? No Symptom Escalation The patient required an escalation for symptom(s)? No Medications Do you have any questions about taking your medication or which medications you should be on? No Do you need any medication refills at this time, including any of the medications you might take only when needed? No Social We would like to make sure you have what you need so that your basic needs are met- including your personal safety, food, housing and medications? Would you like to speak with a social work child study team director to help give you support for any of these needs? No It can be normal to feel anxious or down during a time like this. Would you like to talk to a mental health professional about how you have been feeling? No Closing Thank you for taking the time to talk with me today. We want to work with you to ensure that we arekeeping your medical condition(s) well-controlled and to keep you healthy and out of the doctor's office or hospital. It s also not too late for me to sign you up for automated weekly questionnaires through [employer]. This is an easy way for us to stay connected each week. Are you interested? No, I understand. We can always sign you up in the future if you change your mind. Just as a reminder, will continue to call you every other week to check in on your health. Our calls should take 10-15 minutes or less. Remember, if you have concerns in between our calls, please call your PCP's office right away. Thank you. Enter next patient outreach date for two weeks on the same day of the week as today in the Track PtOutreach and End outreach. Diane Alcala RN November 11, 2021 1:20 PM documented in this encounter[facility] History of Present illness Narrative* Fredrick Walker RN - 10/27/2021 3:34 PM EDT INSIGHT CDM TELEPHONIC OUTREACH Provider Action/FYI: Spk with Pt she is having shoulder and arm pain, and spine pain, she had an X- ray which showed degenerative spine in her neck, Pt is awaiting a call from Pain Management Dr. Appiah's office to schedule. Contact made with patient: Yes Patient identified by name and . Discussed care with patient It s nice talking to you again. As a reminder, this is our bi-weekly check-in where I will be asking you questions about your health. This will only take a few minutes of your time. Is this a good time? Yes Symptoms What Chronic Disease(s) does the patient have: CKD Do you check your blood pressures at home? Yes, Enter readings: 101/83 Do you have new or worse shortness of breath with activity? No Do you feel like you are dehydrated for any reason, including not being able to eat or drink normally, or having less urine/much darker urine than normal for you? No Do you check your daily weight at home? Yes, Have you noticed a sudden gain in weight greater than three pounds in a day or three pounds in a week? No Are you having any other symptoms that your PCP needs to know about? No Symptom Escalation The patient required an escalation for symptom(s)? No Medications Do you have any questions about taking your medication or which medications you should be on? No Do you need any medication refills at this time, including any of the medications you might take only when needed? No Social We would like to make sure you have what you need so that your basic needs are met- including your personal safety, food, housing and medications? Would you like to speak with a social work child study team director to help give you support for any of these needs? No It can be normal to feel anxious or down during a time like this. Would you like to talk to a mental health professional about how you have been feeling? No Closing Thank you for taking the time to talk with me today. We want to work with you to ensure that we arekeeping your medical condition(s) well-controlled and to keep you healthy and out of the doctor's office or hospital. It s also not too late for me to sign you up for automated weekly questionnaires through [employer]. This is an easy way for us to stay connected each week. Are you interested? No, I understand. We can always sign you up in the future if you change your mind. Just as a reminder, will continue to call you every other week to check in on your health. Our calls should take 10-15 minutes or less. Remember, if you have concerns in between our calls, please call your PCP's office right away. Thank you. Enter next patient outreach date for two weeks on the same day of the week as today in the Track PtOutreach and End outreach. Diane Alcala RN October 27, 2021 3:34 PM documented in this encounterAkron [facility] History of Present illness Narrative* Fredrick Walker RN - 10/12/2021 3:40 PM EDT INSIGHT CDM TELEPHONIC OUTREACH Provider Action/FYI: Routed updates to Dr. Aliya Heath with Pt she noted on 09/24/21 her tested Positive for Covid, and she was Covid Positive on 09/27/21 The couple were tired and weak, and OLIVER, both are feeling much improved. Yris noted her BP is running lower 93/68, she had intermittent lightheadedness, Instructed on fallprevention, she verbalized understanding. She denies needs or concerns Contact made with patient: Yes Patient identified by name and . Discussed care with patient It s nice talking to you again. As a reminder, this is our bi-weekly check-in where I will be asking you questions about your health. This will only take a few minutes of your time. Is this a good time? Yes Symptoms What Chronic Disease(s) does the patient have: CHF and CKD Do you check your blood pressures at home? Yes, Enter readings: 93/68 Do you have new or worse shortness of breath with activity? No Do you have new or worsening trouble breathing while lying flat? No Do you have new or worsening swelling of legs, feet or ankles? No Do you feel like you are dehydrated for any reason, including not being able to eat or drink normally, or having less urine/much darker urine than normal for you? No Do you check your daily weight at home? Yes, Have you noticed a sudden gain in weight greater than three pounds in a day or three pounds in a week? No Are you having any other symptoms that your PCP needs to know about? Yes Symptom Escalation The patient required an escalation for symptom(s)? No Medications Do you have any questions about taking your medication or which medications you should be on? No Do you need any medication refills at this time, including any of the medications you might take only when needed? No Social We would like to make sure you have what you need so that your basic needs are met- including your personal safety, food, housing and medications? Would you like to speak with a social work child study team director to help give you support for any of these needs? No It can be normal to feel anxious or down during a time like this. Would you like to talk to a mental health professional about how you have been feeling? No Closing Thank you for taking the time to talk with me today. We want to work with you to ensure that we arekeeping your medical condition(s) well-controlled and to keep you healthy and out of the doctor's office or hospital. It s also not too late for me to sign you up for automated weekly questionnaires through [employer]. This is an easy way for us to stay connected each week. Are you interested? No, I understand. We can always sign you up in the future if you change your mind. Just as a reminder, will continue to call you every other week to check in on your health. Our calls should take 10-15 minutes or less. Remember, if you have concerns in between our calls, please call your PCP's office right away. Thank you. Enter next patient outreach date for two weeks on the same day of the week as today in the Track PtOutreach and End outreach. Diane Alcala RN October 12, 2021 3:40 PM documented in this encounterAkron [facility]07-[facility] History of Present illness Narrative* Willis Amaral MD - 10/06/2021 2:40 PM EDT Patient presents with: Pain (Shoulder Pain): R shoulder x this AM, no known injury or cause HPI: Right shoulder pain: Duration: Woke with pain this morning Location: Behind the right shoulder Character: sharp Radiation: No. Aggravating: Moving arm. Not bothered by neck movement Relieving: Positioning, ice Pain relievers: Tylenol Associated: Prior similar episodes Pertinent negatives: Denies numbness, known injury. 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/12/2008 Chest pain Chronic kidney disease (CKD), stage III (moderate) ([facility]) 07/27/2016 Coronary artery disease due to calcified coronary lesion 06/22/2021 Diverticulitis Diverticulosis of colon (without mention of hemorrhage) Diverticulosis of colon with hemorrhage DVT (deep venous thrombosis) ([facility]) After knee surgery Dysmetabolic syndrome X Hemorrhage of gastrointestinal tract, unspecified Hernia of other specified sites of abdominal cavity without mention of obstruction or gangrene 2006 Patient has 2 or 3 hernias at abdomen and groin Internal hemorrhoids without mention of complication Other and unspecified hyperlipidemia PE (pulmonary embolism) after hernia surgery Umbilical hernia 07/22/2009 Unspecified essential hypertension Unspecified gastritis and gastroduodenitis 03/12/2008 Unspecified hypothyroidism MEDICATIONS: rosuvastatin (CRESTOR) 5 mg tablet Take 1 tablet by mouth once daily. enoxaparin (LOVENOX) 60 mg/0.6 mL syrg Inject 60 mg subcutaneously once daily. ZINC ORAL Take 30 mg by mouth once daily. levothyroxine (SYNTHROID) 88 mcg tablet Take 1 tablet by mouth once daily. torsemide (DEMADEX) 10 mg tablet Take 2 tablets by mouth once daily. tafamidis (VYNDAMAX) 61 mg Take 1 capsule by mouth once daily. INV [id number] 150 MG/ML OR PLACEBO INJECTION (IRB 20-) Inject 0.3 mL subcutaneously every 4 weeks. For Investigational Drug Use Only. PI: Evi Zamora MD. Inject 0.3 mL subcutaneously every 4 weeks. EXP: 2 hours at room temp. Protect from light. vitamin A (AQUASOL A) 10,000 unit capsule Take 10,000 Units by mouth Every 3 Days. famotidine (PEPCID) 20 mg tablet Take 1 tablet by mouth twice daily. multivitamin tablet Take 1 tablet by mouth once daily. cholecalciferol, vitamin D3, (VITAMIN D3 ORAL) Take 5,000 Units by mouth once daily. aspirin, enteric coated (ADULT LOW DOSE ASPIRIN) 81 mg EC tablet Take 1 tablet by mouth once daily. polyethylene glycol 3350 (MIRALAX, GLYCOLAX) 17 gram/dose powder as needed. One capful with a full glass of water, 2-3 times a day Or as directed MAGNESIUM ORAL Take 400 mg by mouth once daily. potassium chloride ER (K-DUR, KLOR-CON) 20 mEq tablet Take 1 tablet by mouth once daily. Ipratropium [place] (ATROVENT) 21 mcg (0.03 %) nasal spray Use 2 Sprays in the nose every 12 hours. traMADol (ULTRAM) 50 mg tablet Take 1 tablet by mouth every 6 hours as needed for up to 99 days. ALLERGIES: ALLERGIES Allergen Reactions Iodine Hives VITALS: BP 108/80 Pulse 98 Temp 36 C (96.8 F) Resp 20 Wt 62.3 kg (137 lb 6.4 oz) SpO2 96% BMI 24.34 kg/m PHYSICAL EXAM: GEN: pleasant, no acute distress, alert HEENT: PERRL, EOMI, NECK: supple, full ROM without pain, no midline or paraspinal tenderness SHOULDER: right compared to left. No deformity or swelling. Palpation of clavicle non-tender, AC joint non-tender, glenohumeral joint non-tender. Primary location of pain is the mid posterior trapezius. HEART: regular rate, regular rhythm, no murmurs LUNGS: clear to auscultation, no wheezes or crackles, no increased WOB EXT: no clubbing, no cyanosis, no edema Component Latest Ref Rng & Units 09/05/2021 Hemoglobin A1C 4.3 - 5.6 % 5.3 ASSESSMENT/PLAN: 1. Acute pain of right shoulder - ICD9: 719.41, ICD10: M25.511 - TIZANIDINE 2 MG TABLET - reviewed interaction with pepcid. She will hold pepcid when taking zanflex. - PREDNISONE 20 MG TABLET Willis Amaral MD documented in this encounterAkron [facility]06-17-2022 History of Present illness Narrative* Fredrick Walker RN - 09/16/2021 10:04 AM EDT INSIGHT CDM TELEPHONIC OUTREACH Provider Action/FYI: Cardiac Amyloidosis is in a [facility] research study, Pt has a Nurse visit every 2 weeks for vital signs, blood work,and receives Injections 1x mth., and urine specimen taken. [facility] ED 09/12/21 Seen for weakness, chest pain Spk with Pt she reports 09/12/21 ED symptoms resolved, did not appear to be Cardiac related, Pt denies current CP, Sob, coughing, wheezing or edema Wt 135 lbs, BP 135/88 Pt Noted is staying out of the Humidity, hydrating well Contact made with patient: Yes Patient identified by name and . Discussed care with patient It s nice talking to you again. As a reminder, this is our bi-weekly check-in where I will be asking you questions about your health. This will only take a few minutes of your time. Is this a good time? Yes Symptoms What Chronic Disease(s) does the patient have: CHF and CKD Do you check your blood pressures at home? Yes, Enter readings: 135/88 Do you have new or worse shortness of breath with activity? No Do you have new or worsening trouble breathing while lying flat? No Do you have new or worsening swelling of legs, feet or ankles? No Do you feel like you are dehydrated for any reason, including not being able to eat or drink normally, or having less urine/much darker urine than normal for you? No Do you check your daily weight at home? Yes, Have you noticed a sudden gain in weight greater than three pounds in a day or three pounds in a week? No Are you having any other symptoms that your PCP needs to know about? No Symptom Escalation The patient required an escalation for symptom(s)? No Medications Do you have any questions about taking your medication or which medications you should be on? No Do you need any medication refills at this time, including any of the medications you might take only when needed? No Social We would like to make sure you have what you need so that your basic needs are met- including your personal safety, food, housing and medications? Would you like to speak with a social work child study team director to help give you support for any of these needs? Yes - patient would like to speak to a Primary Care Sorter Pricer - Informed patient that a PrimaryCare Sorter Pricer will be in contact to discuss further. Routed to the ADULT PRIMARY CARE SOCIAL WORK pool [[id number]] and indicated in the FYI box. It can be normal to feel anxious or down during a time like this. Would you like to talk to a mental health professional about how you have been feeling? No Closing Thank you for taking the time to talk with me today. We want to work with you to ensure that we arekeeping your medical condition(s) well-controlled and to keep you healthy and out of the doctor's office or hospital. It s also not too late for me to sign you up for automated weekly questionnaires through [employer]. This is an easy way for us to stay connected each week. Are you interested? No, I understand. We can always sign you up in the future if you change your mind. Just as a reminder, will continue to call you every other week to check in on your health. Our calls should take 10-15 minutes or less. Remember, if you have concerns in between our calls, please call your PCP's office right away. Thank you. Enter next patient outreach date for two weeks on the same day of the week as today in the Track PtOutreach and End outreach. Diane Alcala RN September 16, 2021 10:04 AM documented in this encounterAkron Children'[facility]06-16-2022 History of Present illness Narrative* Winsome Chavez Rust - 09/15/2021 1:17 PM EDT IRB #[id number] CardioTTRansform PI: Dr. Ruby Study Visit: Week 61 I met with the patient for the Study 61 Visit for the CardioTTRansform Study. Reaffirmed that the patient still wishes to participate in the study and continues to consent to the study. Has the patient had any changes in her health since the last study visit? Yes. Recent labs from OSHindicated elevation in total cholesterol, non-HDL cholesterol, and LDL cholesterol. Dr. Valera to call in new prescription of rosuvastatin 5 mg po daily to patient's pharmacy. Has the patient had any outside hospitalizations/ER visits: Yes Dates and locations: [facility] ER on 09/12/2021. Patient c/o left breast discomfortwhich she describes as indigestion. Vitals WNL, ECG normal. Chest x-ray - clear. Discharged to home09/12/21. KCCQ completed: Yes [place] QoL completed: Yes [id number] completed: Yes Ocular Questionnaire completed: Yes SF-36 completed: Yes Patient Global Assessment of Severity completed: Yes Patient Global Assessment of Change completed: Yes Blood and urine samples collected per protocol. Discussed with patient the requirement to take a daily Vitamin A supplement. Supplement was provided to patient. She verbalized understanding. Study drug was administered by Site personnel at 14:25 in the patient s outer area left arm. At home dosing education was reviewed with patient / caregiver. Teach back utilized. Study drug diary was reviewed with the patient and education on how to complete it was provided. She verbalized understanding. Study drug Kit # [id number] and #[id number] was dispensed to patient for home use. Dispensed bottle of Vitamin A, 100 ct. Returned previous bottle 11 tabs remaining. Discussed with the patient the importance of follow up in the study. She verbalized understanding. Patient contact information reaffirmed and updated. Coordinator contact information provided to the patient. Education provided: Protocol required tests/procedures Materials dispensed: None lead clinical research coordinator: Winsome Chavez Rust Pager #: [phone] documented in this encounterAkron Children'[facility]06-13-2022 Miscellaneous Notes* Telephone Encounter - Helga Nicole RN - 09/12/2021 2:02 PM EDT Patient call in for left breast discomfort since 10 am, which patient describes as indigesiton. Tumineffective. Patient states that it goes toward throat and to middle of chest. Nurse Triage assessment completed with protocol recommending for disposition of Go to ED now. Care advice reviewed with patient, patient stated understanding. Reason for Disposition SEVERE chest pain Answer Assessment - Initial Assessment Questions 1. LOCATION: Left side of breast toward throat in the middle. 2. RADIATION: Denies radiation 3. ONSET: Around 10 am 4. PATTERN Constant; Gets worse with exertion; thought indigestion, took tums does not work. 5. DURATION Still there 6. SEVERITY: Rates Pain 9 out of 10 7. CARDIAC RISK FACTORS: Does have heart condition 8. PULMONARY RISK FACTORS: Denies 9. CAUSE: States she first thought indigestion 10. OTHER SYMPTOMS: Denies Protocols used: CHEST [id number] documented in this encounterAkron Children'[facility]06-09-2022 History of Present illness Narrative* Gab Pisano MD - 09/08/2021 9:42 AM EDT Reason for Visit Patient presents with: Recheck: 3 month, lab review Yris Villagomez is a 80 year old female who presents here today for Above Complaints. Health Maintenance SHINGRIX VACCINE(3 of 3) COVID-19 VACCINE(4 - Booster for Moderna series) HPI Was in the Emergency room on 24 of june, she ate shredded wheat breakfast, she started vomiting, vomited a lot, Kept vomiting, and then things started calming down, her son came, she passed out, she felt a little better after that. Patient started having dry heaves. They did do a test on pancrease and liver, the did not see anything. There was problem with the kidney function. All that week her stomach hurt and she could not eat much at all. Patient lost some weight but notes Around 5/6 months ago she started eating better, and making efforts to have enough protein. Her cholesterol levels are high, she had tried statin in the past but that caused some aches and pain and she was asked not to take it Reviewed her kidney numbers and they are good. Hba1c is in the non diabetic range. 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 She has been doing relatively well with the medicine.. Osteoporosis- the patient has may need to be on a bisphosphonate but with her being on a trial drugI will confirm with the percussion instrument tuner if it would be good to have the medication. Hyperlipidemia- we need to check her lipids and treat as needed. Last check was a year and a half ago. Magnesium was higher in the last lab, recheck is required. Memory deficits: last visit for the first time she reported having memory deficits. She does not want to go to [place]. Unless things get worse. She recounts a recent difficulty and confusion with placing age of a relative that she had. Gotten in [place] for a baby shower and thought that the person was the age of her daughter instead of her granddaughter. She also recounts difficulty with numbers. 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 While talking about that she cried because of her diagnosis of dyslexia. She cried because there were years of her feeling she was not good enough or not herself and she finally realized that there was a condition that she had and that was thereason for her struggling with school and schoolwork. She feels so validated now that she knows that she had condition. No problem-specific Assessment & Plan notes found for this encounter. 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/12/2008 Chest pain Chronic kidney disease (CKD), stage III (moderate) ([facility]) 07/27/2016 Coronary artery disease due to calcified coronary lesion 06/22/2021 Diverticulitis Diverticulosis of colon (without mention of hemorrhage) Diverticulosis of colon with hemorrhage DVT (deep venous thrombosis) ([facility]) After knee surgery Dysmetabolic syndrome X Hemorrhage of gastrointestinal tract, unspecified Hernia of other specified sites of abdominal cavity without mention of obstruction or gangrene 2006 Patient has 2 or 3 hernias at abdomen and groin Internal hemorrhoids without mention of complication Other and unspecified hyperlipidemia PE (pulmonary embolism) after hernia surgery Umbilical hernia 07/22/2009 Unspecified essential hypertension Unspecified gastritis and gastroduodenitis 03/12/2008 Unspecified hypothyroidism PAST SURGICAL HISTORY Procedure Laterality Date ARTHRP ACETBLR/PROX FEM PROSTC AGRFT/ALGRFT 2002 Hip replacement, total, left ARTHRP ACETBLR/PROX FEM PROSTC AGRFT/ALGRFT 2002 left hip COLONOSCOPY FLX DX W/COLLJ SPEC WHEN PFRMD 09/15/1998 Colonoscopy COLONOSCOPY FLX DX W/COLLJ SPEC WHEN PFRMD 08/07/2005 Colonoscopy COLONOSCOPY FLX DX W/COLLJ SPEC [facility]OSCOPY FLX DX W/COLLJ SPEC WHEN PFRMD 03/05/14 Colonoscopy COLSC FLX W/REMOVAL LESION BY HOT BX FORCEPS 03/12/08 EGD TRANSORAL BIOPSY SINGLE/MULTIPLE 03/12/08 EGD TRANSORAL BIOPSY SINGLE/MULTIPLE 09-30-12 ESOPHAGOGASTRODUODENOSCOPY TRANSORAL DIAGNOSTIC 06/10/2015 EGD HYSTERECTOMY, REVISE VAGINA; COLPECTOMY 1980 Hysterectomy with bladder repair still ovaries ARTEAGA W/O FACETEC FORAMOT/DSC 04/03 VRT SGM CRV 2001 Discectomy and fusion, cervical LAPS SURG RPR RECURRENT INGUINAL HERNIA 07/22/2009 LIGJ DIVJ &/EXCJ VARICOSE VEIN CLUSTER 1 LEG 1984 Varicose Vein Surgery PAST SURGICAL HISTORY OF 2001 cervical spine repair PAST SURGICAL HISTORY OF 11/04/14 cystocele RPR 1ST INGUN HRNA AGE 5 YRS/> REDUCIBLE 1980 Hernia repair, inguinal RPR 1ST INGUN HRNA AGE 5 YRS/> REDUCIBLE 1980 Hernia repair, inguinal, bilateral RPR UMBILICAL HRNA 5 YRS/> REDUCIBLE 07/22/2009 THYROIDECTOMY TOTAL/COMPLETE 1994 TONSILLECTOMY AND ADENOIDECTOMY HX 1968 TONSILLECTOMY PRIMARY/SECONDARY <AGE 12 Tonsillectomy X-RAY PLACEMENT, VEIN FILTER 08/13/2009 FAMILY HISTORY Problem Relation Age of Onset Coronary Artery Disease Mother 83, CVA Colon Cancer Mother Coronary Artery Disease Father [place] 45 Cancer Brother multiple myeloma None Daughter None Daughter other (heart attack) Son other (fibramyalgia) Son other (blood clots in lungs) Son Social History Tobacco Use Smoking status: Never Smoker Smokeless tobacco: Never Used Vaping Use Vaping Use: Never used Substance Use Topics Alcohol use: No Drug use: No Past medical history, appointments, medications, allergies reviewed. Pertinent Lab/Diagnostic Studies are reviewed and discussed today Current Outpatient Medications: enoxaparin (LOVENOX) 60 mg/0.6 mL syrg ZINC ORAL MAGNESIUM ORAL levothyroxine (SYNTHROID) 88 mcg tablet potassium chloride ER (K-DUR, KLOR-CON) 20 mEq tablet torsemide (DEMADEX) 10 mg tablet Ipratropium [place] (ATROVENT) 21 mcg (0.03 %) nasal spray tafamidis (VYNDAMAX) 61 mg INV REPLACED BY [facility]-[id number] 150 MG/ML OR [place]ACE[place] INJECTION (IRB 20-) vitamin A (AQUASOL A) 10,000 unit capsule famotidine (PEPCID) 20 mg tablet multivitamin tablet cholecalciferol, vitamin D3, (VITAMIN D3 ORAL) aspirin, enteric coated (ADULT LOW DOSE ASPIRIN) 81 mg EC tablet polyethylene glycol 3350 (MIRALAX, GLYCOLAX) 17 gram/dose powder traMADol (ULTRAM) 50 mg tablet No current facility-administered medications for this visit. Facility-Administered Medications Ordered in Other Visits: enoxaparin 60 mg injection (LOVENOX) Review of Systems CONSTITUTIONAL: No fevers, chills night sweats, unintended weight loss CARDIOVASCULAR: No chest pain, dyspnea, palpitations, orthopnea, PND, ankle edema. PULM: No dyspnea, unexplained cough. GI: No dysphagia/odynophagia, problematic reflux, constipation, diarrhea, changes in stool habits, hematochezia, melena. : No new urinary complaints, including dysuria, gross hematuria or pyuria. NEURO: No new balance problems, peripheral weakness/paresthesias or numbness of concern. Physical Exam BP 130/78 Pulse 88 Temp 36.2 C (97.2 F) Wt 63.5 kg (140 lb) SpO2 98% BMI 23.30 kg/m General appearance: Well appearing, alert, in no acute distress, well nourished. Skin: Skin color, texture, turgor normal, no suspicious rashes or lesions Head: Normocephalic, no masses, lesions, tenderness or abnormalities Eyes: Anicteric sclera. Pupils are equally round and reactive to light. Extraocular movements are intact. Lungs: Lungs clear to auscultation. No wheezing, rhonchi, rales Heart: RRR without murmur, gallop, or rubs. Extremities: No deformities, edema, skin discoloration, clubbing or cyanosis. Good capillary refill. ASSESSMENT/PLAN: 1. Acquired hypothyroidism - ICD9: 244.9, ICD10: E03.9 (primary diagnosis) - Instructed patient on importance of taking on an empty stomach either first thing in the morning or at bedtime. Stable - Continue current medications 2. Statin intolerance - ICD9: 995.27, ICD10: Z78.9 To cont the statin intolerance. 3. Essential hypertension - ICD9: 401.9, ICD10: I10 - good control - Recommended regular aerobic exercise. - Recommend home blood pressure monitoring, to bring results in on next visit - Goal of BP <130/80 4. Mixed hyperlipidemia - ICD9: 272.2, ICD10: E78.2 - good control - Continue current medication. 5. Insomnia, unspecified type - ICD9: 780.52, ICD10: G47.00 Patient does not take any medication for insomnia She has taken benadryl but not for a long time. Last week and a half it has been really good. Gab Pisano MD documented in this encounter[facility] Miscellaneous Notes* Telephone Encounter - Ophelia Anderson - 09/06/2021 9:37 AM EDT Spoke to patient todayregarding 09/15/21 appointment. Patient has decided to keep 09/15/21~ left my name and numner documented in this encounterAkron [facility]06-02-2022 History of Present illness Narrative* Fredrick Walker RN - 09/01/2021 10:58 AM EDT INSIGHT CDM TELEPHONIC OUTREACH Provider Action/FYI: 08/24/21 [facility] ED Nausea and Vomiting Spk with Pt, denies Nausea and vomiting, hydrating well, BP 112/72 Pt report the humidity can cause mild Sob, denies current Sob, cough or wheezing or edema, Wt 137 lbs Pt has a Nurse visit every other week, for vital signs and blood work Pt has Appt 09/08/[address] Pisano Pt reports recent vision changes, has Opthalmology Appt 09/13/21 Dr. Reggie Jean-Baptiste Hx Macular Dgeneration Contact made with patient: Yes Patient identified by name and . Discussed care with patient It s nice talking to you again. As a reminder, this is our bi-weekly check-in where I will be asking you questions about your health. This will only take a few minutes of your time. Is this a good time? Yes Symptoms What Chronic Disease(s) does the patient have: CHF and CKD Do you check your blood pressures at home? Yes, Enter readings: 112/72 Do you have new or worse shortness of breath with activity? No Do you have new or worsening trouble breathing while lying flat? No Do you have new or worsening swelling of legs, feet or ankles? No Do you feel like you are dehydrated for any reason, including not being able to eat or drink normally, or having less urine/much darker urine than normal for you? No Do you check your daily weight at home? Yes, Have you noticed a sudden gain in weight greater than three pounds in a day or three pounds in a week? No Are you having any other symptoms that your PCP needs to know about? No Symptom Escalation The patient required an escalation for symptom(s)? No Medications Do you have any questions about taking your medication or which medications you should be on? No Do you need any medication refills at this time, including any of the medications you might take only when needed? No Social We would like to make sure you have what you need so that your basic needs are met- including your personal safety, food, housing and medications? Would you like to speak with a social work child study team director to help give you support for any of these needs? No It can be normal to feel anxious or down during a time like this. Would you like to talk to a mental health professional about how you have been feeling? No Closing Thank you for taking the time to talk with me today. We want to work with you to ensure that we arekeeping your medical condition(s) well-controlled and to keep you healthy and out of the doctor's office or hospital. It s also not too late for me to sign you up for automated weekly questionnaires through [employer]. This is an easy way for us to stay connected each week. Are you interested? No, I understand. We can always sign you up in the future if you change your mind. Just as a reminder, will continue to call you every other week to check in on your health. Our calls should take 10-15 minutes or less. Remember, if you have concerns in between our calls, please call your PCP's office right away. Thank you. Enter next patient outreach date for two weeks on the same day of the week as today in the Track PtOutreach and End outreach. Diane Alcala RN September 01, 2021 10:58 AM documented in this encounterAkron [facility]05-18-2022 History of Present illness Narrative* Fredrick Walker RN - 08/17/2021 11:55 AM EDT INSIGHT CDM TELEPHONIC OUTREACH Provider Action/FYI: Spk with Pt, she denies new or worsening CHF/CKD symptoms, wt 137 lbs Pt is scheduled today for Nurse visit for vital signs, blood work,and receives Injections 1x mth. Pt denies needs or concerns. Contact made with patient: Yes Patient identified by name and . Discussed care with patient It s nice talking to you again. As a reminder, this is our bi-weekly check-in where I will be asking you questions about your health. This will only take a few minutes of your time. Is this a good time? Yes Symptoms What Chronic Disease(s) does the patient have: CHF and CKD Do you check your blood pressures at home? Yes, Enter readings: Not available Do you have new or worse shortness of breath with activity? No Do you have new or worsening trouble breathing while lying flat? No Do you have new or worsening swelling of legs, feet or ankles? No Do you feel like you are dehydrated for any reason, including not being able to eat or drink normally, or having less urine/much darker urine than normal for you? No Do you check your daily weight at home? Yes, Have you noticed a sudden gain in weight greater than three pounds in a day or three pounds in a week? No Are you having any other symptoms that your PCP needs to know about? No Symptom Escalation The patient required an escalation for symptom(s)? No Medications Do you have any questions about taking your medication or which medications you should be on? No Do you need any medication refills at this time, including any of the medications you might take only when needed? No Social We would like to make sure you have what you need so that your basic needs are met- including your personal safety, food, housing and medications? Would you like to speak with a social work child study team director to help give you support for any of these needs? No It can be normal to feel anxious or down during a time like this. Would you like to talk to a mental health professional about how you have been feeling? No Closing Thank you for taking the time to talk with me today. We want to work with you to ensure that we arekeeping your medical condition(s) well-controlled and to keep you healthy and out of the doctor's office or hospital. It s also not too late for me to sign you up for automated weekly questionnaires through [employer]. This is an easy way for us to stay connected each week. Are you interested? No, I understand. We can always sign you up in the future if you change your mind. Just as a reminder, will continue to call you every other week to check in on your health. Our calls should take 10-15 minutes or less. Remember, if you have concerns in between our calls, please call your PCP's office right away. Thank you. Enter next patient outreach date for two weeks on the same day of the week as today in the Track PtOutreach and End outreach. Diane Alcala RN August 17, 2021 11:55 AM documented in this encounterAkron [facility]05-16-2022 History of Present illness Narrative* Fredrick Walker RN - 08/15/2021 10:20 AM EDT INSIGHT CDM TELEPHONIC OUTREACH Provider Action/FYI: Call to Pt left a message to verify CHF/ CKD or other symptom status and needs. Contact made with patient: No - Left message Silver my name is Diane Alcala RN your Water Leak Repairer [facility] I am calling today for your bi-weekly check in. I am sorry I missed your call. I will reach out to you again tomorrow. (if the third call I will reach out to you again next week) Enter next patient outreach date forthe following using the Track Pt Outreach. End outreach. 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 3) PE. 4) Post surgical RP hematoma. HPI: The patient is a 80-year-old female who had a remote history of a right saphenous vein thrombophlebitis with clot closely approximating the right femoral vein. This developed following arthroscopic knee surgery in January 2001. The patient was anticoagulated with low molecular weight heparin, transitioned to Coumadin and continued anticoagulant therapy for approximately 4 months. She underwent left hip arthroplasty in 2002 without any venous thromboembolic complications. She did not previously have any bleeding diaphysis nor did she have any bleeding complication from anticoagulant therapy. The patient underwent elective bilateral inguinal hernia repair as well as a ventral hernia repair on July 20, 2009. She received a prophylactic dose of dalteparin 5000 units preoperatively. The morning following surgery, she received another prophylactic dose of 5000 units. The patient experienced abdominal discomfort and was noted to have a drop in hemoglobin. A CT scan of the abdomen and pelvis suggested a more distal right psoas retroperitoneal hematoma. The patient received a transfusion,was observed for another 24 hours. She did not require fresh, frozen plasma. After it was noted that she was stable, she was discharged. The patient re-presented to the emergency department approximately 2-1/2 weeks later with sudden onset chest pain and pressure when she was walking. A CT scan of the chest revealed right-sided pulmonary emboli. She underwent IVC filter placement and was discharged. Was seen by a clerical methods analyst at a tertiary center. 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 It is unclear that this represented a potential bleeding diathesisor a hypercoagulable condition. Diagnosed with SVT/DVT of the right leg 08/16/10--US showed evidence of superficial venous thrombosis of the saphaneofemoral junction extending into a varicosed branch of greater saphaneous vein. Was anticoagulated and maintained on warfarin. Underwent colonoscopy fall 2011--attributed to diverticular bleeding. Hgb was 15 in the ED. INR=1.7. Was hospitalized for diverticulitis August 2012. Had tarry stools. Underwent EGD 09/30/12--no mucosal abnormalities. Underwent right hip replacement in May 2019. No coagulation complications. Was diagnosed with cardiac amyloidosis, transthyretin/wild type. Started on tafamidis late December 2019. Presents for ongoing hematologic management. Interim history: She continues to tolerate long-term anticoagulation with Lovenox injections very well. Mild bruising on her anterior abdomen. Occasional small bleed that is controlled easily with pressure. Over the winter she noticed a couple times when she blew her nose she had some blood-tinged mucus but no epistaxis that required pressure to stop. Still has occasional hemorrhoidal bleeding but that is not as frequent as it used to be. She does not have any painful varicosities presently. She is not wearing knee- high compression stockings. No recent lower extremity swelling or pain. 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 Cardiovascular symptoms under good control with her present treatment for hereditary cardiac amyloidosis. PMH, medications and allergies personally reviewed by me today. Any changes documented in appropriate section. PHYSICAL EXAM: Vitals: Blood pressure 120/63, pulse 80, temperature 36.1 C (97 F), temperature source Temporal, weight 64.6 kg (142 lb 8 oz). Well-appearing and in no acute distress. EYES: Sclerae are anicteric bilaterally. LYMPHATIC: There is no palpable cervical or supraclavicular adenopathy. RESPIRATORY: Inspiratory breath sounds are of normal intensity in all hooker. CARDIOVASCULAR: Rhythm is regular. Varicose veins all appear stable. Nontender or inflamed appearing. ABDOMEN: The abdomen is nondistended. Minimal ecchymoses bilaterally lower abdomen. Extremities: No swelling or edema. SKIN: No jaundice or rash. 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 No focal motor weakness. 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 -Remote history of postoperative bleeding complication. This was a retroperitoneal hematoma following inguinal hernia repair in the setting of prophylactic doses of anticoagulation pre-and postoperatively. -Has IVC filter but malpositioned. -Tolerating Lovenox injections well. No venous thromboembolic events since on this form of anticoagulation. Plan: -Continue Lovenox once daily. -Okay to continue low-dose aspirin. 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 -OV in 6 months. 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 Plan: -Encouraged her to use compression stockings as much as possible. Portions of this documentation were copied and pasted from previous office visit notes in order to provide a cohesive continuity of the history. The note has been reviewed and edited and updated as necessary. During this patient visit I have spent approximately 10 minutes out of 20 in counseling regarding medications and coordinating care. Omer Narvaez DO documented in this encounterAkron [facility]04-29-2022 History of Present illness Narrative* Fredrick Walker RN - 07/29/2021 8:40 AM EDT INSIGHT CDM TELEPHONIC OUTREACH Provider Action/FYI: Hx: CHF, CKD Hx PE with IVC, Cardiac Amyloidosis Spk with Pt who denies new or worsening CHF/ CKD or other symptoms. Wt 137, BP 112/65 Contact made with patient: Yes Patient identified by name and . Discussed care with patient It s nice talking to you again. As a reminder, this is our bi-weekly check-in where I will be asking you questions about your health. This will only take a few minutes of your time. Is this a good time? Yes Symptoms What Chronic Disease(s) does the patient have: CHF and CKD Do you check your blood pressures at home? Yes, Enter readings: 112/65 Do you have new or worse shortness of breath with activity? No Do you have new or worsening trouble breathing while lying flat? No Do you have new or worsening swelling of legs, feet or ankles? No Do you feel like you are dehydrated for any reason, including not being able to eat or drink normally, or having less urine/much darker urine than normal for you? No Do you check your daily weight at home? Yes, Have you noticed a sudden gain in weight greater than three pounds in a day or three pounds in a week? No Are you having any other symptoms that your PCP needs to know about? No Symptom Escalation The patient required an escalation for symptom(s)? No Medications Do you have any questions about taking your medication or which medications you should be on? No Do you need any medication refills at this time, including any of the medications you might take only when needed? No Social We would like to make sure you have what you need so that your basic needs are met- including your personal safety, food, housing and medications? Would you like to speak with a social work child study team director to help give you support for any of these needs? No It can be normal to feel anxious or down during a time like this. Would you like to talk to a mental health professional about how you have been feeling? No Closing Thank you for taking the time to talk with me today. We want to work with you to ensure that we arekeeping your medical condition(s) well-controlled and to keep you healthy and out of the doctor's office or hospital. It s also not too late for me to sign you up for automated weekly questionnaires through [employer]. This is an easy way for us to stay connected each week. Are you interested? No, I understand. We can always sign you up in the future if you change your mind. Just as a reminder, will continue to call you every other week to check in on your health. Our calls should take 10-15 minutes or less. Remember, if you have concerns in between our calls, please call your PCP's office right away. Thank you. Enter next patient outreach date for two weeks on the same day of the week as today in the Track PtOutreach and End outreach. Diane Alcala RN July 29, 2021 8:56 AM documented in this encounterAkron [facility]04-14-2022 History of Present illness Narrative* Fredrick Walker RN - 07/14/2021 4:18 PM EDT INSIGHT CDM TELEPHONIC OUTREACH Provider Action/FYI: Spk with Pt who denies new or worsening CKD or other symptoms, or needs BP 112/69, wt 137 lbs Contact made with patient: Yes Patient identified by name and . Discussed care with patient It s nice talking to you again. As a reminder, this is our bi-weekly check-in where I will be asking you questions about your health. This will only take a few minutes of your time. Is this a good time? Yes Symptoms What Chronic Disease(s) does the patient have: CKD Do you check your blood pressures at home? Yes, Enter readings: 112/69 Do you have new or worse shortness of breath with activity? No Do you feel like you are dehydrated for any reason, including not being able to eat or drink normally, or having less urine/much darker urine than normal for you? No Do you check your daily weight at home? Yes, Have you noticed a sudden gain in weight greater than three pounds in a day or three pounds in a week? No Are you having any other symptoms that your PCP needs to know about? No Symptom Escalation The patient required an escalation for symptom(s)? No Medications Do you have any questions about taking your medication or which medications you should be on? No Do you need any medication refills at this time, including any of the medications you might take only when needed? No Social We would like to make sure you have what you need so that your basic needs are met- including your personal safety, food, housing and medications? Would you like to speak with a social work child study team director to help give you support for any of these needs? No It can be normal to feel anxious or down during a time like this. Would you like to talk to a mental health professional about how you have been feeling? No Closing Thank you for taking the time to talk with me today. We want to work with you to ensure that we arekeeping your medical condition(s) well-controlled and to keep you healthy and out of the doctor's office or hospital. It s also not too late for me to sign you up for automated weekly questionnaires through [employer]. This is an easy way for us to stay connected each week. Are you interested? No, I understand. We can always sign you up in the future if you change your mind. Just as a reminder, will continue to call you every other week to check in on your health. Our calls should take 10-15 minutes or less. Remember, if you have concerns in between our calls, please call your PCP's office right away. Thank you. Enter next patient outreach date for two weeks on the same day of the week as today in the Track PtOutreach and End outreach. Diane Alcala RN July 14, 2021 4:18 PM documented in this encounterAkron [facility]04-13-2022 Miscellaneous Notes* Telephone Encounter - Winsome Moniqueirwin Rust - 07/13/2021 4:05 PM EDT [id number] Dr. Ruby Reaffirmed that the patient still wishes to participate in the study and continues to consent to the study. Informed Consent Form, version 17 Jun 2021 sent to patient by [employer] via email. Patient contact information reaffirmed and updated. Coordinator contact information provided to the patient. Education provided: Protocol required tests/procedures Winsome Vtirwin Rust Pager #: [phone] documented in this encounterAkron Children'[facility]04-04-2022 History of Present illness Narrative* LAKSHMI Storm - 07/04/2021 11:27 AM EDT SOCIAL WORK FOLLOW UP NOTE: [facility] Date of service: July 04, 2021 Yris Villagomez is being seen for a follow up social work visit. 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 No other needs identified. PLAN: Continue follow up as needed F/U APPOINTMENT: PRN LAKSHMI Storm documented in this encounterAkron Children'[facility] Hospital04-01-2022 Miscellaneous Notes* Telephone Encounter - LAKSHMI Storm - 07/01/2021 2:51 PM EDT SOCIAL WORK FOLLOW UP NOTE: [facility] Date of service: July 01, 2021 Yris Villagomez is being seen for a follow up social work visit. Today's visit includes: patient TOPICS ADDRESSED: Finances; Patient's Lovenox arrived and patient informed. 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 No other needs identified. PLAN: Continue follow up as needed F/U APPOINTMENT: LAKSHMI Shields documented in this encounter[facility] History of Present illness Narrative* Fredrick Walker RN - 06/30/2021 10:27 AM EDT INSIGHT CDM TELEPHONIC OUTREACH Provider Action/FYI: Spk with Pt who reports she is doing well, her is in [facility] she and her childrenare ready to go in to see him, request call back next week. Contact made with patient: Yes Patient identified by name and . Discussed care with patient It s nice talking to you again. As a reminder, this is our bi-weekly check-in where I will be asking you questions about your health. This will only take a few minutes of your time. Is this a good time? No - today is not a good time for the patient. Agree on a call back time and connect with the patient then. If applicable, update the next patient outreach date using the Track Pt Outreach. End outreach Diane Alcala RN June 30, 2021 10:27 AM documented in this encounterAkron [facility]03-29-2022 Miscellaneous Notes* Telephone Encounter - LAKSHMI Storm - 06/28/2021 9:28 AM EDT SOCIAL WORK FOLLOW UP NOTE: [facility] Date of service: June 28, 2021 Yris Villagomez is being seen for a follow up social work visit. Today's visit includes: patient not present TOPICS ADDRESSED: Finances; fax received and sent back to [employer] for reorder. PLAN: Continue follow up as needed F/U APPOINTMENT: PRLAKSHMI Overton documented in this encounterAk[facility]28-[facility]22 Miscellaneous Notes* Telephone Encounter - LAKSHMI Storm - 06/27/2021 2:56 PM EDT SOCIAL WORK FOLLOW UP NOTE: [facility] Date of service: June 27, 2021 Yris Villagomez is being seen for a follow up social work visit. Today's visit includes: patient and [employer] TOPICS ADDRESSED: Patient called SW to state she has 21 days of medication left. SW called [employer] to have reorder form faxed to office. Once received SW will complete and fax to [employer]. No other needs identified. PLAN: Assist with financial support applications and Continue follow up as needed F/U APPOINTMENT: PRLAKSHMI Overton documented in this encounterAk[facility]22 Instructions* Patient Instructions* Genia Ruby MD - 06/22/2021 12:21 PM EDT RTC in 3 months Will refer to neurology for memory impeirment documented in this encounterAkron [facility] History of Present illness Narrative* Genia Ruby MD - 06/22/2021 12:00 PM EDT Images from the original note were not included. Heart [facility] V[facility] SECTION OF HEART FAILURE and CARDIAC TRANSPLANT MEDICINE OUTPATIENT VISIT DATE July 16, 2021 OUTPATIENT VISIT TYPE Established Patient PRIMARY CARE PHYSICIAN: Gab Pisano [address] [place] [address] CHIEF COMPLAINT: Cardiac Amyloidosis HISTORY OF PRESENT ILLNESS Yris Villagomez is a 80 year old White female who [facility] Heart Failure. The patient has been referred by Evi Zamora MD. Yris Villagomez has a past medical history of Abdominal pain, unspecified site, Acid reflux, Acute gastritis withoutmention of hemorrhage, Arrhythmia, Benign neoplasm of colon (03/12/2008), Chest pain, Chronic kidney disease (CKD), stage III (moderate) (HCC) (07/27/2016), Coronary artery disease due to calcified coronary lesion (06/22/2021), Diverticulitis, Diverticulosis of colon (without mention of hemorrhage), Diverticulosis of colon with hemorrhage, DVT (deep venous thrombosis) ([facility]), Dysmetabolic syndrome X, Hemorrhage of gastrointestinal tract, unspecified, Hernia of other specified sites of abdominal cavity without mention of obstruction or gangrene (2006), Internal hemorrhoids without mention of complication, Other and unspecified hyperlipidemia, PE (pulmonary embolism), Umbilical hernia (07/22/2009), Unspecified essential hypertension, Unspecified gastritis and gastroduodenitis (03/12/2008), andUnspecified hypothyroidism. She has no past medical history of Asthma, Blood dyscrasia, Chronic obstructive pulmonary disease (COPD) ([facility]), Diabetes ([facility]), Glaucoma, Heart attack (HCC), Parkinson disease (HCC), Seizures (HCC), Snoring, Stroke (HCC), or Syncope. The patient has a past surgical history that includes tonsillectomy primary/secondary <age 12; rpr 1st ingun hrna age 5 yrs/> reducible (1980); ligj divj &/excj varicose vein cluster 1 leg (1984); arteaga w/o facetec foramot/dsc 1/2 vrt sgm crv (2001); hysterectomy, revise vagina; colpectomy (1980); thyroidectomy total/complete (1994); arthrp acetblr/prox fem prostc agrft/algrft (2002); colonoscopy flx dx w/collj spec when pfrmd (09/15/1998); colonoscopy flx dx w/collj spec when pfrmd (08/07/2005); egd transoral biopsy single/multiple (03/12/08); colsc flxw/removal lesion by hot bx forceps (03/12/08); rpr 1st ingun hrna age 5 yrs/> reducible (1980); laps surg rpr recurrent inguinal hernia (07/22/2009); rpr umbilical hrna 5 yrs/> reducible (07/22/2009); x-ray placement, vein filter (08/13/2009); [facility] w[facility] egd transoral biopsy single/multiple (09-30-12); colonoscopy flx dx w/collj spec when pfrmd (03/05/14); arthrp acetblr/prox fem prostc agrft/algrft (2002); past surgical history of (2001); past surgical history of (11/04/14); esophagogastroduodenoscopy transoral diagnostic (06/10/2015); and tonsillectomy and adenoidectomy hx (1967). The patient also does not have any pertinent problems on file.. The primary encounter diagnosis was Wild-type transthyretin-related (ATTR) amyloidosis (HCC). Diagnoses of Cardiac amyloidosis (HCC), Chronic diastolic heart failure (HCC), Mixed hyperlipidemia, Essential hypertension, Coronary artery disease due to calcified coronary lesion, Patient in clinical research study- IRB#[id number] Cardio TTRansform, and Neuropathy were also pertinent to this visit. INTERVAL HISTORY Since last's visit, the patient has been feeling well. The patient has been compliant with the lifestyle and clinical recommendations we implemented last visit. Has some SOB on multiple flights of stairs but denies orthopnea, PND, dizziness, palpitations, syncope, occasional lightheadedness and once in a while at night the abernathy races for a few seconds. Occasional leg swelling. Denies chest pain. Still has some hand tingling. Recently injured left foot but improving. Suffers from some degree of memory loss. 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/12/2008 Chest pain Chronic kidney disease (CKD), stage III (moderate) (HCC) 07/27/2016 Coronary artery disease due to calcified coronary lesion 06/22/2021 Diverticulitis Diverticulosis of colon (without mention of hemorrhage) Diverticulosis of colon with hemorrhage DVT (deep venous thrombosis) (HCC) After knee surgery Dysmetabolic syndrome X Hemorrhage of gastrointestinal tract, unspecified Hernia of other specified sites of abdominal cavity without mention of obstruction or gangrene 2006 Patient has 2 or 3 hernias at abdomen and groin Internal hemorrhoids without mention of complication Other and unspecified hyperlipidemia PE (pulmonary embolism) after hernia surgery Umbilical hernia 07/22/2009 Unspecified essential hypertension Unspecified gastritis and gastroduodenitis 03/12/2008 Unspecified hypothyroidism PAST SURGICAL HISTORY Procedure Laterality Date ARTHRP ACETBLR/PROX FEM PROSTC AGRFT/ALGRFT 2002 Hip replacement, total, left ARTHRP ACETBLR/PROX FEM PROSTC AGRFT/ALGRFT 2002 left hip COLONOSCOPY FLX DX W/COLLJ SPEC WHEN PFRMD 09/15/1998 Colonoscopy COLONOSCOPY FLX DX W/COLLJ SPEC WHEN PFRMD 08/07/2005 Colonoscopy COLONOSCOPY FLX DX W/COLLJ SPEC WHEN PFRMD 06/23/2011 [facility] Colonoscopy COLONOSCOPY FLX DX W/COLLJ SPEC WHEN PFRMD 03/05/14 Colonoscopy COLSC FLX W/REMOVAL LESION BY HOT BX FORCEPS 03/12/08 EGD TRANSORAL BIOPSY SINGLE/MULTIPLE 03/12/08 EGD TRANSORAL BIOPSY SINGLE/MULTIPLE 09-30-12 ESOPHAGOGASTRODUODENOSCOPY TRANSORAL DIAGNOSTIC 06/10/2015 EGD HYSTERECTOMY, REVISE VAGINA; COLPECTOMY 1980 Hysterectomy with bladder repair still ovaries ARTEAGA W/O FACETEC FORAMOT/DSC 1/ VRT SGM CRV 2001 Discectomy and fusion, cervical LAPS SURG RPR RECURRENT INGUINAL HERNIA 07/22/2009 LIGJ DIVJ &/EXCJ VARICOSE VEIN CLUSTER 1 LEG 1985 Varicose Vein Surgery PAST SURGICAL HISTORY OF 2001 cervical spine repair PAST SURGICAL HISTORY OF 11/04/14 cystocele RPR 1ST INGUN HRNA AGE 5 YRS/> REDUCIBLE 1980 Hernia repair, inguinal RPR 1ST INGUN HRNA AGE 5 YRS/> REDUCIBLE 1980 Hernia repair, inguinal, bilateral RPR UMBILICAL HRNA 5 YRS/> REDUCIBLE 07/22/2009 THYROIDECTOMY TOTAL/COMPLETE 1994 TONSILLECTOMY AND ADENOIDECTOMY HX 1968 TONSILLECTOMY PRIMARY/SECONDARY <AGE 12 Tonsillectomy X-RAY PLACEMENT, VEIN FILTER 08/13/2009 SOCIAL HISTORY Social History Tobacco Use Smoking status: Never Smoker Smokeless tobacco: Never Used Vaping Use Vaping Use: Never used Substance Use Topics Alcohol use: No Drug use: No FAMILY HISTORY Problem Relation Age of Onset Coronary Artery Disease Mother 83, CVA Colon Cancer Mother Coronary Artery Disease Father [place] 45 Cancer Brother multiple myeloma None Daughter None Daughter other (heart attack) Son other (fibramyalgia) Son other (blood clots in lungs) Son ALLERGIES: ALLERGIES Allergen Reactions Iodine Hives CURRENT MEDICATIONS: levothyroxine (SYNTHROID) 88 mcg tablet Take 1 tablet by mouth once daily. potassium chloride ER (K-DUR, KLOR-CON) 20 mEq tablet Take 1 tablet by mouth once daily. torsemide (DEMADEX) 10 mg tablet Take 2 tablets by mouth once daily. Ipratropium [place] (ATROVENT) 21 mcg (0.03 %) nasal spray Use 2 Sprays in the nose every 12 hours. tafamidis (VYNDAMAX) 61 mg Take 1 capsule by mouth once daily. INV [id number] MG/ML OR PLACEBO INJECTION (IRB ) Inject 0.3 mL subcutaneously every 4 weeks. For Investigational Drug Use Only. PI: Evi Zamora MD. Inject 0.3 mL subcutaneously every 4 weeks. EXP: 2 hours at room temp. Protect from light. vitamin A (AQUASOL A) 10,000 unit capsule Take 10,000 Units by mouth Every 3 Days. traMADol (ULTRAM) 50 mg tablet Take 1 tablet by mouth every 6 hours as needed for up to 99 days. famotidine (PEPCID) 20 mg tablet Take 1 tablet by mouth twice daily. multivitamin tablet Take 1 tablet by mouth once daily. cholecalciferol, vitamin D3, (VITAMIN D3 ORAL) Take 5,000 Units by mouth once daily. aspirin, enteric coated (ADULT LOW DOSE ASPIRIN) 81 mg EC tablet Take 1 tablet by mouth once daily. polyethylene glycol 3350 (MIRALAX, GLYCOLAX) 17 gram/dose powder as needed. One capful with a full glass of water, 2-3 times a day Or as directed REVIEW OF SYSTEMS CONSTITUTIONAL: No unintentional weight loss, malaise, or frequent fevers. No chronic fatigue. EYES: No acute vision symptoms. EARS, NOSE, MOUTH, THROAT: No acute auditive, nasal, oral, or pharyngeal symptoms. CARDIOVASCULAR: No angina. Mild dyspnea on exertion. No orthopnea. No lower extremity edema. No syncope. No palpitations. RESPIRATORY: No cough, hemoptysis, or wheezing. No dyspnea at rest. GASTROINTESTINAL: No vomiting or diarrhea. No abdominal pain. No melena or hematemesis. GENITOURINARY: No acute urinary frequency, or incontinence. No renal colic symptoms. MUSCULOSKELETAL: No acute joint pain or swelling. No acute severe back or muscle pain. INTEGUMENTARY: No new skin lesions, rash, or itching. NEUROLOGICAL: No major or recurrent headaches, paralysis, seizures, or tremors. Memory loss; hand tingling. PSYCHIATRIC: No major mood disorder, or recent major psychosocial stressor. ENDOCRINE: No cold or heat intolerance, polyuria, polydipsia, or goiter. HEMATOLOGIC/LYMPHATIC: No major bleeding episode. No swollen nodes. ALLERGIC/IMMUNOLOGIC: No recent major allergic reaction. PATIENT ENTERED DATA: No flowsheet data found. No flowsheet data found. PROMIS Global Health - (T-Scores - the mean of general population = 50. Five points is a clinicallymeaningful difference.) 02/05/2017 02/05/2017 Physical T-Score 44.9 44.9 Mental T-Score 50.8 50.8 PHYSICAL EXAMINATION BP 128/74 (BP Site: Left Arm) Pulse 85 Ht 165.1 cm (5' 5 ) Wt 63.4 kg (139 lb 11.2 oz) [id number]% BMI 23.25 kg/m CONSTITUTIONAL: Well appearing, in no acute distress. EYES: Pupils equally round and reactive to light, extraocular movements are grossly intact. EARS, NOSE, MOUTH, THROAT: Mucosas appear moist and intact. No obvious lesions. CARDIOVASCULAR: Regular and normal rate. Normal S1 and S2; no S3 or S4. No murmurs. No pericardial rub. No carotid bruit. Good capillary refill, no acrocyanosis. Peripheral pulses are normal throughout. JVP is normal. No lower extremity edema. RESPIRATORY: Lungs clear to auscultation; no significant wheezing, rhonchi, or rales. GASTROINTESTINAL: Abdomen is soft, non-tender, and non-distended. Bowel sounds are normal. GENITOURINARY: No costovertebral angle tenderness upon palpation; genital exam deferred. MUSCULOSKELETAL: No gross joint swelling, major deformity, or tenderness. No digital clubbing. Range of motion is grossly normal throughout. INTEGUMENTARY: Color, texture, and turgor are normal; no rashes or lesions. No jaundice. NEUROLOGICAL: Gait is grossly normal. Motor and sensory functions are grossly intact. PSYCHIATRIC: Alert and oriented to person, place, and time; lucid. Normal affect and insight. No significant mental retardation. Memory is grossly intact. ENDOCRINE: Thyroid and parotid glands are grossly normal. HEMATOLOGIC/LYMPHATIC: No major adenopathy, petechia, purpura, or ecchymoses. CARDIOVASCULAR MEDICINE TESTING: Potassium (mmol/L) Date Value 05/30/2021 3.7 03/02/2021 4.8 Sodium (mmol/L) Date Value 05/30/2021 141 03/02/2021 143 Magnesium (mg/dL) Date Value 03/02/2021 2.4 Creatinine (mg/dL) Date Value 05/30/2021 1.15 03/02/2021 1.00 BUN (mg/dL) Date Value 05/30/2021 21 03/02/2021 23 Glucose (mg/dL) Date Value 05/30/2021 116 03/02/2021 99 PT INR (no units) Date Value 11/10/2019 1.2 TSH (uU/mL) Date Value 03/02/2021 1.910 NT Pro BNP (pg/mL) Date Value 05/30/2021 1,259 09/09/2020 1,989 IMPRESSION Yris Villagomez is a 80 year old White female who [facility] Heart Failure. The patient has been referred by Evi Zamora MD. Yris Villagomez has a past medical history of Abdominal pain, unspecified site, Acid reflux, Acute gastritis withoutmention of hemorrhage, Arrhythmia, Benign neoplasm of colon (03/12/2008), Chest pain, Chronic kidney disease (CKD), stage III (moderate) ([facility]) (07/27/2016), Coronary artery disease due to calcified coronary lesion (06/22/2021), Diverticulitis, Diverticulosis of colon (without mention of hemorrhage), Diverticulosis of colon with hemorrhage, DVT (deep venous thrombosis) (), Dysmetabolic syndrome X, Hemorrhage of gastrointestinal tract, unspecified, Hernia of other specified sites of abdominal cavity without mention of obstruction or gangrene (2006), Internal hemorrhoids without mention of complication, Other and unspecified hyperlipidemia, PE (pulmonary embolism), Umbilical hernia (07/22/2009), Unspecified essential hypertension, Unspecified gastritis and gastroduodenitis (03/12/2008), andUnspecified hypothyroidism. She has no past medical history of Asthma, Blood dyscrasia, Chronic obstructive pulmonary disease (COPD) (HCC), Diabetes (HCC), Glaucoma, Heart attack (HCC), Parkinson disease (HCC), Seizures (HCC), Snoring, Stroke (HCC), or Syncope. The patient has a past surgical history that includes tonsillectomy primary/secondary <age 12; rpr 1st ingun hrna age 5 yrs/> reducible (1980); ligj divj &/excj varicose vein cluster 1 leg (1984); arteaga w/o facetec foramot/dsc / vrt sgm crv (2001); hysterectomy, revise vagina; colpectomy (1980); thyroidectomy total/complete (1994); arthrp acetblr/prox fem prostc agrft/algrft (2002); colonoscopy flx dx w/collj spec when pfrmd (09/15/1998); colonoscopy flx dx w/collj spec when pfrmd (08/07/2005); egd transoral biopsy single/multiple (03/12/08); colsc flxw/removal lesion by hot bx forceps (03/12/08); rpr 1st ingun hrna age 5 yrs/> reducible (1980); laps surg rpr recurrent inguinal hernia (07/22/2009); rpr umbilical hrna 5 yrs/> reducible (07/22/2009); x-ray placement, vein filter (08/13/2009); [facility] dx w[facility] egd transoral biopsy single/multiple (09-30-12); colonoscopy flx dx w/collj spec when pfrmd (03/05/14); arthrp acetblr/prox fem prostc agrft/algrft (2002); past surgical history of (2001); past surgical history of (11/04/14); esophagogastroduodenoscopy transoral diagnostic (06/10/2015); and tonsillectomy and adenoidectomy hx (1967). The patient also does not have any pertinent problems on file.. The primary encounter diagnosis was Wild-type transthyretin-related (ATTR) amyloidosis (HCC). Diagnoses of Cardiac amyloidosis (HCC), Chronic diastolic heart failure (HCC), Mixed hyperlipidemia, Essential hypertension, Coronary artery disease due to calcified coronary lesion, Patient in clinical research study- IRB#[id number] Cardio TTRansform, and Neuropathy were also pertinent to this visit. NYHA Functional Class: II Stage: C heart failure Target weight: current [place] INDEX SCALE (Adult patients aged 18 and older) - Used to rate a patient's functional status before and after a medical procedure: 90 - Able to carry on normal activity: minor signs or symptoms of disease. PLAN AND RECOMMENDATIONS: Continue current therapy. RTC in 3 months Will refer to neurology for memory impairment. I have discussed with the patient and family and caregivers when present, in simple terms, the likely etiologies of the patient's condition, its pathophysiology, prognosis, current status, diagnosticmodalities, and both basic and advanced therapeutic options. In addition, we discussed guideline-rec ommended lifestyle modifications such as diet, weight management, exercise, and abstinence of tobacco, alcohol, and illicit substances. When appropriate, these were also documented in the Patient Instructions section of the After Visit Summary, which was printed and handed to the patient. The patient was also provided pertinent healthcare educational booklets available in our clinic. Orders Placed This Encounter [facility] OP FOLLOW UP APPT ORDER Order Specific Question: Schedule patient for follow up Answer: Yes Order Specific Question: Provider Answer: Genia RUBY [[id number]] Order Specific Question: CVM Section: Answer: Heart Failure Order Specific Question: Testing Options: Answer: No Testing Order Specific Question: Return: Answer: 3 months CONSULT TO NEUROLOGY Standing Status: Future Standing Expiration Date: 06/22/2022 Order Specific Question: Does consulting provider have [facility] Epic access? Answer: Yes [facility] STAFF PHYSICIAN NOTE OF PERSONAL INVOLVEMENT IN CARE I have personally performed a [id number] diagnostic evaluation on this patient, including anamnesis and physical examination, review and analysis of pertinent available medical records, and personal visualization and interpretation of pertinent available diagnostic data. The patient s condition required a significant and separately identifiable evaluation and management service, above and beyond the usual pre- and post-procedure/operative care associated with any procedure or service performed. Total time spent on this visit included time spent preparing to see the patient, obtaining history of present illness, performing a medically appropriate physical examination, counseling and educating the patient and caregivers, ordering medications and diagnostic tests, communicating with other health care providers, documenting the clinical information in the electronic health record, independently interpreting diagnostic results and communicating these to the patient and caregivers, and coordinating care, among others. The health conditions of this patient carry a high risk of complications, morbidity, and/or mortality of patient management. These health conditions warrant a high levelof medical decision making. This note was partially created using voice recognition software and is inherently subject to errors including those of syntax and sound-alike substitutions which may escape proofreading. In such instances, original meaning may be extrapolated by contextual derivation. June 22, 2021; 12:17 PM. Frieda Ruby MD Staff, Section of Heart Failure and Transplantation Medicine Nate Meredith and Tonya [facility]ustonAlbuquer[facility] Sam Storm Department of Cardiovascular Medicine [facility] Heart, Vascular and Thoracic [place] [address] [place] of [facility] Tel: [phone] Fax: [phone] Appt: [phone] documented in this encounterAk[facility] NoteHNO ID: [id number] Author: Alena Bradley APRN.SHEEP CLIPPER Service: ? Author Type: Nurse Practitioner Type: Progress Notes Filed: 10/14/2020 8:29 AM Note Text: [facility] GENERAL BEHAVIORAL MEDICINE PROGRESS NOTE PATIENT: Yris Villagomez MRD: [id number] DATE: October 14, 2020 IDENTIFYING INFORMATION: Yris is a 79 year old female with a history of Acute stress reaction. This visit is being conducted using HIPPA compliant telecommunication system permitting interactive audio and video Proper identity has been estbablished and consent to treat is confirmed. Phone CHIEF COMPLAINT: I have been doing very well INTERIM HISTORY: She shares that she is feeling much better with her emotions. She has been connecting with family, friends and she is feeling better with her depression. She had acute stress reaction following the of a grandchild Her energy is somewhat better and she is getting some things done that she had been putting off. Her last visit [facility] she had better test results and this has helped her relax. She shares that her appetite may also be better. Her grandchildren are visiting, they went out to eat [place] food and she ate a lot of food. She shares that they were all out doing activities. She enjoyed the daily event with the family. She also had an event of spending time with a couple she has known for a long time. He shared prayers with her that have had meaning for her. Review of Systems Psychiatric/Behavioral: Positive for depression. The patient is nervous/anxious. Improving depression and anxiety Substance Use History: no history of substance. [place] SUICIDE SEVERITY RATING SCALE 1.) Wish to be : Have you wished you were or wished you could go to sleep and not wake up? YES 2.) Suicidal Thoughts: Have you actually had any thoughts of killing yourself? NO 6.) Suicide Behavior Question: Have you ever done anything, started to do anything, or prepared to do anything to end your life?NO RISK LEVEL RISK/PROTECTIVE FACTOR SUICIDALITY POSSIBLE INTERVENTIONS High Psychiatric disorders with severe symptoms, or acute precipitating event; protective factors not relevant Potentially lethal suicide attempt or persistent ideation with strong intent or suicide rehearsal Admission generally indicated unless a significant change reduces risk. Suicide precautions Moderate Multiple risk factors, few protective factors Suicidal ideation with plan, but no intent or behavior Admission may be necessary depending on risk factors. Develop crisis plan. Give emergency/crisis numbers Low Modifiable risk factors, strong protective factors Thoughts of , no plan, intent or behavior Outpatient referral, symptom reduction. Give emergency/crisis numbers Risk level: low no thoughts Current Outpatient Medications on File Prior to Visit Medication Sig - famotidine (PEPCID) 20 mg tablet Take 1 tablet by mouth twice daily. - torsemide (DEMADEX) 10 mg tablet Take 2 tablets by mouth once daily. - levothyroxine (SYNTHROID) 88 mcg tablet Take 1 tablet by mouth once daily. - potassium chloride ER (K-DUR, KLOR-CON) 20 mEq tablet Take 1 tablet by mouth once daily. - multivitamin tablet Take 1 tablet by mouth once daily. - cholecalciferol, vitamin D3, (VITAMIN D3 ORAL) Take 5,000 Units by mouth once daily. - enoxaparin (LOVENOX) 60 mg/0.6 mL syrg Inject 0.6 mL subcutaneously q 24 HR. - aspirin, enteric coated (ADULT LOW DOSE ASPIRIN) 81 mg EC tablet Take 1 tablet by mouth once daily. - tafamidis (VYNDAMAX) 61 mg Take 1 capsule by mouth once daily. - traMADol (ULTRAM) 50 mg tablet Take 1 tablet by mouth every 6 hours as needed for up to 99 days. - polyethylene glycol 3350 (MIRALAX, GLYCOLAX) 17 gram/dose powder as needed. One capful with a full glass of water, 2-3 times a day Or as directed No current facility-administered medications on file prior to visit. Medication side effects: None Delusions: None Hallucinations: none Past family; and social history reviewed. VITAL SIGNS: There were no vitals taken for this visit. LAB DATA: Reviewed and discussed. No flowsheet data found. AIMS TESTING Negative MENTAL STATUS EXAMINATION: Appearance: unable to assess Psychomotor Activity: Unable to assess Behavior: Cooperative Speech: spontaneous , Normal rate, Normal volume, Clear, Mood: Calm and Euthymic Affect: appropriate to content Thought Process: logical Thought Content: No suicidal ideation, intent or plan., No homicidal ideation, intent or plan., Logical Cognition: Orientation: Person, Place, Time and Situation Attention: Intact Concentration: Intact Language: Intact naming, Intact repetition Estimated Intelligence: Good Memory: Intact recent memory, Intact remote memory Abstraction: Intact Insight: good Judgement: good RISK ASSESSMENT: Discussed the risk and benefit of the medication, c (more content not included)...[facility]06-17-2021 History of Past illness Narrative* Problem Noted Date Diagnosed Date Resolved Date Acute stress reaction 09/16/20202022 Recent bereavement 09/16/2020 3 Chest pain 11/10/2019 11/13/2019 Hospital discharge follow-up 05/14/2019 02/21/2022 Moderate protein-calorie malnutrition 05/06/2019 11/19/2019 Epigastric pain 06/10/2015 06/10/2015 DVT prophylaxis 11/05/2014 02/21/2022 Family history of ischemic heart disease 10/14/2014 11/19/2019 Other symptoms involving dig estive system(787.99) 03/05/2014 03/05/2014 Abdominal pain, right lower quadrant 03/05/2014 03/05/2014 Groin pain 04/23/2013 08/28/2013 DVT (deep venous thrombosis) 10/17/2010 09/30/2018 Ac DVT/embl low ext NOS 08/23/201010/31 Status post inguinal hernia repair 11/23/2009 08/28/2013 Umbilical hernia without men tion of obstruction or gangrene 06/21/2009 08/28/2013 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/12/2008 Unspecified gastritis and ga stroduodenitis without mention of hemorrhage 03/12/2008 08/28/2013 Blood in stool 03/11/2008 08/28/2013 INGUINAL HERNIA, BILAT, RECU RRENT W/O GANGRENE/OBSTRUCTION 11/30/2006 08/28/2013 Adjustment disorder with depressed mood 05/16/2005 08/28/2013 Hypothyroidism 09/30/2018 Abdominal pain, unspecified site 08/28/2013 documented as of this encounter (statuses as of 02/04/2023) [facility]06-17-2021 History of Past illness Narrative* Problem Noted Date Diagnosed Date Resolved Date Acute stress reaction 09/16/20202022 Recent bereavement 09/16/2020 3 Chest pain 11/10/2019 11/13/2019 Hospital discharge follow-up 05/14/2019 02/21/2022 Moderate protein-calorie malnutrition 05/06/2019 11/19/2019 Epigastric pain 06/10/2015 06/10/2015 DVT prophylaxis 11/05/2014 02/21/2022 Family history of ischemic heart disease 10/14/2014 11/19/2019 Other symptoms involving dig estive system(787.99) 03/05/2014 03/05/2014 Abdominal pain, right lower quadrant 03/05/2014 03/05/2014 Groin pain 04/23/2013 08/28/2013 DVT (deep venous thrombosis) 10/17/2010 09/30/2018 Ac DVT/embl low ext NOS 08/23/201010/31 Status post inguinal hernia repair 11/23/2009 08/28/2013 Umbilical hernia without men tion of obstruction or gangrene 06/21/2009 08/28/2013 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/12/2008 Unspecified gastritis and ga stroduodenitis without mention of hemorrhage 03/12/2008 08/28/2013 Blood in stool 03/11/2008 08/28/2013 INGUINAL HERNIA, BILAT, RECU RRENT W/O GANGRENE/OBSTRUCTION 11/30/2006 08/28/2013 Adjustment disorder with depressed mood 05/16/2005 08/28/2013 Hypothyroidism 09/30/2018 Abdominal pain, unspecified site 08/28/2013 documented as of this encounter (statuses as of 02/04/2023) [facility]06-17-2021 NoteHNO ID: [id number] Author: Alena Bradley APRN.SHEEP CLIPPER Service: ? Author Type: Nurse Practitioner Type: Progress Notes Filed: 09/16/2020 10:36 AM Note Text: [facility] INITIAL PSYCHIATRIC EVALUATION PATIENT: Yris Villagomez MRD: [id number] DATE: September 16, 2020 IDENTIFYING INFORMATION: Yris is a 79 year old female with a history of deaths in the family that are impacting her mental health. Patient was referred by her son. Today our meeting is by an interactive telecommunications system that permits realtime communication. Identity is established and consent to treat has been confirmed. We are using the phone due to challenges in mobility and inability to navigate electronics CHIEF COMPLAINT: I feel very melancholia HPI: She shares that she wants to figure out what is going on. I cry at commercials, I am feeling down and I just can't get over it. She goes on to share that she has a health condition that is terminal she is accepting of this but she has had multiple deaths in her family with the last being the of her grandson about a month ago. PSYCHIATRIC ROS: Depression: she gets tearful, and can cry over commercials. She has had a lot of 's since the first of the year from friends and relatives. She is worried about her son Taj ( he also has significant health problems) . Her own health problems involve cardiac amyloidosis, she was told she only has a couple of years left to live. In discussing this she shares that she has lived a good life, she has wonderful children and a so at her age, it is not so devastating of news. She is sleeping a little better, she has low fibrinogen levels where she bleeds frequently. She is using benadryl at night to help, she is getting about 8 to 9 hours. Daytime energy, is low she has enough to shower then she needs to rest before continuing. In the evening she has minimal energy for shopping. This event really tired her out. Milly:None Psychosis: None SRI: She finds that she worries a lot and this is difficult to control. She thinks to a little bit, she shares that recently they lost a grandson and she now may have catastrophic thoughts about the other grandchildren. She shares that she has always been able to control things and this was something that this was out of her control. OCD: No history of obsessing PTSD: none Review of Systems Constitutional: Positive for malaise/fatigue. Her appetite is low due to her health condition. She is trying to keep up with nutrition. She does like fruit and veggies. She has lost 15-20 lbs. She feels good at the weight she doesn't want to loose any more. Psychiatric/Behavioral: Positive for depression. The patient is nervous/anxious and has insomnia. SUBSTANCE ABUSE HISTORY: No history of use PSYCHIATRIC HISTORY: When her grandson , she was put on medication for about a month. She started on medicines and her clerical methods analyst took her off the SSRI (effexor) [place] SUICIDE SEVERITY RATING SCALE 1.) Wish to be : Have you wished you were or wished you could go to sleep and not wake up? Yes, 2.) Suicidal Thoughts: Have you actually had any thoughts of killing yourself? NO 6.)Suicide Behavior Question: Have you ever done anything, started to do anything, or prepared to do anything to end your life?NO RISK LEVEL RISK/PROTECTIVE FACTOR SUICIDALITY POSSIBLE INTERVENTIONS High Psychiatric disorders with severe symptoms, or acute precipitating event; protective factors not relevant Potentially lethal suicide attempt or persistent ideation with strong intent or suicide rehearsal Admission generally indicated unless a significant change reduces risk. Suicide precautions Moderate Multiple risk factors, few protective factors Suicidal ideation with plan, but no intent or behavior Admission may be necessary depending on risk factors. Develop crisis plan. Give emergency/crisis numbers Low Modifiable risk factors, strong protective factors Thoughts of , no plan, intent or behavior Outpatient referral, symptom reduction. Give emergency/crisis numbers Risk level: low no thoughts, she wishes she didn't have all this going on. FAMILY PSYCHIATRIC HX: No mental health problems in her family, Her father at the age of 13. SOCIAL HISTORY: She was raised in the home with her parents and her brother. Her father at the age of 13 she thought she did well and through the years she realized the loss of her father. She is currently living with her , he is working and is supporting. She has children and grandchildren, everybody is supporting for her. She is strong in her anglican daisy. 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 She worked up to (more content not included)... [facility]08-10-2020 History of Past illness Narrative* Problem Noted Date Resolved Date Chest pain 11/10/2019 11/13/2019 Moderate protein-calorie malnutrition 05/06/2019 11/19/2019 Epigastric pain 06/10/2015 06/10/2015 Family history of ischemic heart disease 015 11/19/2019 Other symptoms involving digestive system(787.99 ) 03/05/2014 03/05/2014 Abdominal pain, right lower quadrant 03/05/2014 03/05/2014 Groin pain 04/23/2013 08/28/2013 DVT (deep venous thrombosis) 10/17/201004/2018 Ac DVT/embl low ext NOS 08/23/2010 11/19/19 20 Status post inguinal hernia repair 11/23/2009 08/28/2013 Pulmonary embolism 08/26/2009 08/28/2013 Umbilical hernia without mention of obstruction or gangrene 06/21/2009 08/28/2013 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/12/2008 014 Unspecified gastritis and ga stroduodenitis without mention of hemorrhage 03/12/2008 08/28/2013 Blood in stool 03/11/2008 08/28/2013 INGUINAL HERNIA, BILAT, RECURRENT W/O GANGRENE/O BSTRUCTION 11/30/2006 08/28/2013 Adjustment disorder with depressed mood 05/16/19 06 08/28/2013 Hypothyroidism 09/30/2018 Abdominal pain, unspecified site 08/28/2013 documented as of this encounter (statuses as of 06/27/2021) [facility]08-10-2020 History of Past illness Narrative* Problem Noted Date Resolved Date Chest pain 11/10/2019 11/13/2019 Moderate protein-calorie malnutrition 05/06/2019 11/19/2019 Epigastric pain 06/10/2015 06/10/2015 Family history of ischemic heart disease 015 11/19/2019 Other symptoms involving digestive system(787.99 ) 03/05/2014 03/05/2014 Abdominal pain, right lower quadrant 03/05/2014 03/05/2014 Groin pain 04/23/2013 08/28/2013 DVT (deep venous thrombosis) 10/17/201004/2018 Ac DVT/embl low ext NOS 08/23/2010 11/19/19 20 Status post inguinal hernia repair 11/23/2009 08/28/2013 Pulmonary embolism 08/26/2009 08/28/2013 Umbilical hernia without mention of obstruction or gangrene 06/21/2009 08/28/2013 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/12/2008 014 Unspecified gastritis and ga stroduodenitis without mention of hemorrhage 03/12/2008 08/28/2013 Blood in stool 03/11/2008 08/28/2013 INGUINAL HERNIA, BILAT, RECURRENT W/O GANGRENE/O BSTRUCTION 11/30/2006 08/28/2013 Adjustment disorder with depressed mood 05/16/19 06 08/28/2013 Hypothyroidism 09/30/2018 Abdominal pain, unspecified site 08/28/2013 documented as of this encounter (statuses as of 06/28/2021) [facility]08-10-2020 History of Past illness Narrative* Problem Noted Date Resolved Date Chest pain 11/10/2019 11/13/2019 Moderate protein-calorie malnutrition 05/06/2019 11/19/2019 Epigastric pain 06/10/2015 06/10/2015 Family history of ischemic heart disease 015 11/19/2019 Other symptoms involving digestive system(787.99 ) 03/05/2014 03/05/2014 Abdominal pain, right lower quadrant 03/05/2014 03/05/2014 Groin pain 04/23/2013 08/28/2013 DVT (deep venous thrombosis) 10/17/201004/2018 Ac DVT/embl low ext NOS 08/23/2010 11/19/19 20 Status post inguinal hernia repair 11/23/2009 08/28/2013 Pulmonary embolism 08/26/2009 08/28/2013 Umbilical hernia without mention of obstruction or gangrene 06/21/2009 08/28/2013 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/12/2008 014 Unspecified gastritis and ga stroduodenitis without mention of hemorrhage 03/12/2008 08/28/2013 Blood in stool 03/11/2008 08/28/2013 INGUINAL HERNIA, BILAT, RECURRENT W/O GANGRENE/O BSTRUCTION 11/30/2006 08/28/2013 Adjustment disorder with depressed mood 05/16/19 06 08/28/2013 Hypothyroidism 09/30/2018 Abdominal pain, unspecified site 08/28/2013 documented as of this encounter (statuses as of 06/30/2021) [facility]08[facility] History of Past illness Narrative* Problem Noted Date Resolved Date Chest pain 11/10/2019 11/13/2019 Moderate protein-calorie malnutrition 05/06/2019 11/19/2019 Epigastric pain 06/10/2015 06/10/2015 Family history of ischemic heart disease 015 11/19/2019 Other symptoms involving digestive system(787.99 ) 03/05/2014 03/05/2014 Abdominal pain, right lower quadrant 03/05/2014 03/05/2014 Groin pain 04/23/2013 08/28/2013 DVT (deep venous thrombosis) 10/17/201004/2018 Ac DVT/embl low ext NOS 08/23/2010 11/19/19 20 Status post inguinal hernia repair 11/23/2009 08/28/2013 Pulmonary embolism 08/26/2009 08/28/2013 Umbilical hernia without mention of obstruction or gangrene 06/21/2009 08/28/2013 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/12/2008 014 Unspecified gastritis and ga stroduodenitis without mention of hemorrhage 03/12/2008 08/28/2013 Blood in stool 03/11/2008 08/28/2013 INGUINAL HERNIA, BILAT, RECURRENT W/O GANGRENE/O BSTRUCTION 11/30/2006 08/28/2013 Adjustment disorder with depressed mood 05/16/19 06 08/28/2013 Hypothyroidism 09/30/2018 Abdominal pain, unspecified site 08/28/2013 documented as of this encounter (statuses as of 06/30/2021) [facility]08[facility] History of Past illness Narrative* Problem Noted Date Resolved Date Chest pain 11/10/2019 11/13/2019 Moderate protein-calorie malnutrition 05/06/2019 11/19/2019 Epigastric pain 06/10/2015 06/10/2015 Family history of ischemic heart disease 015 11/19/2019 Other symptoms involving digestive system(787.99 ) 03/05/2014 03/05/2014 Abdominal pain, right lower quadrant 03/05/2014 03/05/2014 Groin pain 04/23/2013 08/28/2013 DVT (deep venous thrombosis) 10/17/201004/2018 Ac DVT/embl low ext NOS 08/23/2010 11/19/19 20 Status post inguinal hernia repair 11/23/2009 08/28/2013 Pulmonary embolism 08/26/2009 08/28/2013 Umbilical hernia without mention of obstruction or gangrene 06/21/2009 08/28/2013 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/12/2008 014 Unspecified gastritis and ga stroduodenitis without mention of hemorrhage 03/12/2008 08/28/2013 Blood in stool 03/11/2008 08/28/2013 INGUINAL HERNIA, BILAT, RECURRENT W/O GANGRENE/O BSTRUCTION 11/30/2006 08/28/2013 Adjustment disorder with depressed mood 05/16/19 06 08/28/2013 Hypothyroidism 09/30/2018 Abdominal pain, unspecified site 08/28/2013 documented as of this encounter (statuses as of 07/01/2021) [facility]08[facility] History of Past illness Narrative* Problem Noted Date Resolved Date Chest pain 11/10/2019 11/13/2019 Moderate protein-calorie malnutrition 05/06/2019 11/19/2019 Epigastric pain 06/10/2015 06/10/2015 Family history of ischemic heart disease 015 11/19/2019 Other symptoms involving digestive system(787.99 ) 03/05/2014 03/05/2014 Abdominal pain, right lower quadrant 03/05/2014 03/05/2014 Groin pain 04/23/2013 08/28/2013 DVT (deep venous thrombosis) 10/17/201004/2018 Ac DVT/embl low ext NOS 08/23/2010 11/19/19 20 Status post inguinal hernia repair 11/23/2009 08/28/2013 Pulmonary embolism 08/26/2009 08/28/2013 Umbilical hernia without mention of obstruction or gangrene 06/21/2009 08/28/2013 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/12/2008 014 Unspecified gastritis and ga stroduodenitis without mention of hemorrhage 03/12/2008 08/28/2013 Blood in stool 03/11/2008 08/28/2013 INGUINAL HERNIA, BILAT, RECURRENT W/O GANGRENE/O BSTRUCTION 11/30/2006 08/28/2013 Adjustment disorder with depressed mood 05/16/19 06 08/28/2013 Hypothyroidism 09/30/2018 Abdominal pain, unspecified site 08/28/2013 documented as of this encounter (statuses as of 07/04/2021) [facility] History of Past illness Narrative* Problem Noted Date Resolved Date Chest pain 11/10/2019 11/13/2019 Moderate protein-calorie malnutrition 05/06/2019 11/19/2019 Epigastric pain 06/10/2015 06/10/2015 Family history of ischemic heart disease 015 11/19/2019 Other symptoms involving digestive system(787.99 ) 03/05/2014 03/05/2014 Abdominal pain, right lower quadrant 03/05/2014 03/05/2014 Groin pain 04/23/2013 08/28/2013 DVT (deep venous thrombosis) 10/17/201004/2018 Ac DVT/embl low ext NOS 08/23/2010 11/19/19 20 Status post inguinal hernia repair 11/23/2009 08/28/2013 Pulmonary embolism 08/26/2009 08/28/2013 Umbilical hernia without mention of obstruction or gangrene 06/21/2009 08/28/2013 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/12/2008 014 Unspecified gastritis and ga stroduodenitis without mention of hemorrhage 03/12/2008 08/28/2013 Blood in stool 03/11/2008 08/28/2013 INGUINAL HERNIA, BILAT, RECURRENT W/O GANGRENE/O BSTRUCTION 11/30/2006 08/28/2013 Adjustment disorder with depressed mood 05/16/19 06 08/28/2013 Hypothyroidism 09/30/2018 Abdominal pain, unspecified site 08/28/2013 documented as of this encounter (statuses as of 07/13/2021) [facility] History of Past illness Narrative* Problem Noted Date Resolved Date Chest pain 11/10/2019 11/13/2019 Moderate protein-calorie malnutrition 05/06/2019 11/19/2019 Epigastric pain 06/10/2015 06/10/2015 Family history of ischemic heart disease 015 11/19/2019 Other symptoms involving digestive system(787.99 ) 03/05/2014 03/05/2014 Abdominal pain, right lower quadrant 03/05/2014 03/05/2014 Groin pain 04/23/2013 08/28/2013 DVT (deep venous thrombosis) 10/17/201004/2018 Ac DVT/embl low ext NOS 08/23/2010 11/19/19 20 Status post inguinal hernia repair 11/23/2009 08/28/2013 Pulmonary embolism 08/26/2009 08/28/2013 Umbilical hernia without mention of obstruction or gangrene 06/21/2009 08/28/2013 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/12/2008 014 Unspecified gastritis and ga stroduodenitis without mention of hemorrhage 03/12/2008 08/28/2013 Blood in stool 03/11/2008 08/28/2013 INGUINAL HERNIA, BILAT, RECURRENT W/O GANGRENE/O BSTRUCTION 11/30/2006 08/28/2013 Adjustment disorder with depressed mood 05/16/19 06 08/28/2013 Hypothyroidism 09/30/2018 Abdominal pain, unspecified site 08/28/2013 documented as of this encounter (statuses as of 07/14/2021) [facility] History of Past illness Narrative* Problem Noted Date Resolved Date Chest pain 11/10/2019 11/13/2019 Moderate protein-calorie malnutrition 05/06/2019 11/19/2019 Epigastric pain 06/10/2015 06/10/2015 Family history of ischemic heart disease 015 11/19/2019 Other symptoms involving digestive system(787.99 ) 03/05/2014 03/05/2014 Abdominal pain, right lower quadrant 03/05/2014 03/05/2014 Groin pain 04/23/2013 08/28/2013 DVT (deep venous thrombosis) 10/17/201004/2018 Ac DVT/embl low ext NOS 08/23/2010 11/19/19 20 Status post inguinal hernia repair 11/23/2009 08/28/2013 Pulmonary embolism 08/26/2009 08/28/2013 Umbilical hernia without mention of obstruction or gangrene 06/21/2009 08/28/2013 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/12/2008 014 Unspecified gastritis and ga stroduodenitis without mention of hemorrhage 03/12/2008 08/28/2013 Blood in stool 03/11/2008 08/28/2013 INGUINAL HERNIA, BILAT, RECURRENT W/O GANGRENE/O BSTRUCTION 11/30/2006 08/28/2013 Adjustment disorder with depressed mood 05/16/19 06 08/28/2013 Hypothyroidism 09/30/2018 Abdominal pain, unspecified site 08/28/2013 documented as of this encounter (statuses as of 07/16/2021) [facility] History of Past illness Narrative* Problem Noted Date Resolved Date Chest pain 11/10/2019 11/13/2019 Moderate protein-calorie malnutrition 05/06/2019 11/19/2019 Epigastric pain 06/10/2015 06/10/2015 Family history of ischemic heart disease 015 11/19/2019 Other symptoms involving digestive system(787.99 ) 03/05/2014 03/05/2014 Abdominal pain, right lower quadrant 03/05/2014 03/05/2014 Groin pain 04/23/2013 08/28/2013 DVT (deep venous thrombosis) 10/17/201004/2018 Ac DVT/embl low ext NOS 08/23/2010 11/19/19 20 Status post inguinal hernia repair 11/23/2009 08/28/2013 Pulmonary embolism 08/26/2009 08/28/2013 Umbilical hernia without mention of obstruction or gangrene 06/21/2009 08/28/2013 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/12/2008 014 Unspecified gastritis and ga stroduodenitis without mention of hemorrhage 03/12/2008 08/28/2013 Blood in stool 03/11/2008 08/28/2013 INGUINAL HERNIA, BILAT, RECURRENT W/O GANGRENE/O BSTRUCTION 11/30/2006 08/28/2013 Adjustment disorder with depressed mood 05/16/19 06 08/28/2013 Hypothyroidism 09/30/2018 Abdominal pain, unspecified site 08/28/2013 documented as of this encounter (statuses as of 07/29/2021) [facility] History of Past illness Narrative* Problem Noted Date Resolved Date Chest pain 11/10/2019 11/13/2019 Moderate protein-calorie malnutrition 05/06/2019 11/19/2019 Epigastric pain 06/10/2015 06/10/2015 Family history of ischemic heart disease 015 11/19/2019 Other symptoms involving digestive system(787.99 ) 03/05/2014 03/05/2014 Abdominal pain, right lower quadrant 03/05/2014 03/05/2014 Groin pain 04/23/2013 08/28/2013 DVT (deep venous thrombosis) 10/17/201004/2018 Ac DVT/embl low ext NOS 08/23/2010 11/19/19 20 Status post inguinal hernia repair 11/23/2009 08/28/2013 Pulmonary embolism 08/26/2009 08/28/2013 Umbilical hernia without mention of obstruction or gangrene 06/21/2009 08/28/2013 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/12/2008 014 Unspecified gastritis and ga stroduodenitis without mention of hemorrhage 03/12/2008 08/28/2013 Blood in stool 03/11/2008 08/28/2013 INGUINAL HERNIA, BILAT, RECURRENT W/O GANGRENE/O BSTRUCTION 11/30/2006 08/28/2013 Adjustment disorder with depressed mood 05/16/19 06 08/28/2013 Hypothyroidism 09/30/2018 Abdominal pain, unspecified site 08/28/2013 documented as of this encounter (statuses as of 08/05/2021) [facility] History of Past illness Narrative* Problem Noted Date Resolved Date Chest pain 11/10/2019 11/13/2019 Moderate protein-calorie malnutrition 05/06/2019 11/19/2019 Epigastric pain 06/10/2015 06/10/2015 Family history of ischemic heart disease 015 11/19/2019 Other symptoms involving digestive system(787.99 ) 03/05/2014 03/05/2014 Abdominal pain, right lower quadrant 03/05/2014 03/05/2014 Groin pain 04/23/2013 08/28/2013 DVT (deep venous thrombosis) 10/17/201004/2018 Ac DVT/embl low ext NOS 08/23/2010 11/19/19 20 Status post inguinal hernia repair 11/23/2009 08/28/2013 Pulmonary embolism 08/26/2009 08/28/2013 Umbilical hernia without mention of obstruction or gangrene 06/21/2009 08/28/2013 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/12/2008 014 Unspecified gastritis and ga stroduodenitis without mention of hemorrhage 03/12/2008 08/28/2013 Blood in stool 03/11/2008 08/28/2013 INGUINAL HERNIA, BILAT, RECURRENT W/O GANGRENE/O BSTRUCTION 11/30/2006 08/28/2013 Adjustment disorder with depressed mood 05/16/19 06 08/28/2013 Hypothyroidism 09/30/2018 Abdominal pain, unspecified site 08/28/2013 documented as of this encounter (statuses as of 08/17/2021) [facility] History of Past illness Narrative* Problem Noted Date Resolved Date Chest pain 11/10/2019 11/13/2019 Moderate protein-calorie malnutrition 05/06/2019 11/19/2019 Epigastric pain 06/10/2015 06/10/2015 Family history of ischemic heart disease 015 11/19/2019 Other symptoms involving digestive system(787.99 ) 03/05/2014 03/05/2014 Abdominal pain, right lower quadrant 03/05/2014 03/05/2014 Groin pain 04/23/2013 08/28/2013 DVT (deep venous thrombosis) 10/17/201004/2018 Ac DVT/embl low ext NOS 08/23/2010 11/19/19 20 Status post inguinal hernia repair 11/23/2009 08/28/2013 Pulmonary embolism 08/26/2009 08/28/2013 Umbilical hernia without mention of obstruction or gangrene 06/21/2009 08/28/2013 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/12/2008 014 Unspecified gastritis and ga stroduodenitis without mention of hemorrhage 03/12/2008 08/28/2013 Blood in stool 03/11/2008 08/28/2013 INGUINAL HERNIA, BILAT, RECURRENT W/O GANGRENE/O BSTRUCTION 11/30/2006 08/28/2013 Adjustment disorder with depressed mood 05/16/19 06 08/28/2013 Hypothyroidism 09/30/2018 Abdominal pain, unspecified site 08/28/2013 documented as of this encounter (statuses as of 08/17/2021) [facility] History of Past illness Narrative* Problem Noted Date Resolved Date Chest pain 11/10/2019 11/13/2019 Moderate protein-calorie malnutrition 05/06/2019 11/19/2019 Epigastric pain 06/10/2015 06/10/2015 Family history of ischemic heart disease 015 11/19/2019 Other symptoms involving digestive system(787.99 ) 03/05/2014 03/05/2014 Abdominal pain, right lower quadrant 03/05/2014 03/05/2014 Groin pain 04/23/2013 08/28/2013 DVT (deep venous thrombosis) 10/17/201004/2018 Ac DVT/embl low ext NOS 08/23/2010 11/19/19 20 Status post inguinal hernia repair 11/23/2009 08/28/2013 Pulmonary embolism 08/26/2009 08/28/2013 Umbilical hernia without mention of obstruction or gangrene 06/21/2009 08/28/2013 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/12/2008 014 Unspecified gastritis and ga stroduodenitis without mention of hemorrhage 03/12/2008 08/28/2013 Blood in stool 03/11/2008 08/28/2013 INGUINAL HERNIA, BILAT, RECURRENT W/O GANGRENE/O BSTRUCTION 11/30/2006 08/28/2013 Adjustment disorder with depressed mood 05/16/19 06 08/28/2013 Hypothyroidism 09/30/2018 Abdominal pain, unspecified site 08/28/2013 documented as of this encounter (statuses as of 09/01/2021) [facility] History of Past illness Narrative* Problem Noted Date Resolved Date Chest pain 11/10/2019 11/13/2019 Moderate protein-calorie malnutrition 05/06/2019 11/19/2019 Epigastric pain 06/10/2015 06/10/2015 Family history of ischemic heart disease 015 11/19/2019 Other symptoms involving digestive system(787.99 ) 03/05/2014 03/05/2014 Abdominal pain, right lower quadrant 03/05/2014 03/05/2014 Groin pain 04/23/2013 08/28/2013 DVT (deep venous thrombosis) 10/17/201004/2018 Ac DVT/embl low ext NOS 08/23/2010 11/19/19 20 Status post inguinal hernia repair 11/23/2009 08/28/2013 Pulmonary embolism 08/26/2009 08/28/2013 Umbilical hernia without mention of obstruction or gangrene 06/21/2009 08/28/2013 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/12/2008 014 Unspecified gastritis and ga stroduodenitis without mention of hemorrhage 03/12/2008 08/28/2013 Blood in stool 03/11/2008 08/28/2013 INGUINAL HERNIA, BILAT, RECURRENT W/O GANGRENE/O BSTRUCTION 11/30/2006 08/28/2013 Adjustment disorder with depressed mood 05/16/19 06 08/28/2013 Hypothyroidism 09/30/2018 Abdominal pain, unspecified site 08/28/2013 documented as of this encounter (statuses as of 09/06/2021) [facility] History of Past illness Narrative* Problem Noted Date Resolved Date Chest pain 11/10/2019 11/13/2019 Moderate protein-calorie malnutrition 05/06/2019 11/19/2019 Epigastric pain 06/10/2015 06/10/2015 Family history of ischemic heart disease 015 11/19/2019 Other symptoms involving digestive system(787.99 ) 03/05/2014 03/05/2014 Abdominal pain, right lower quadrant 03/05/2014 03/05/2014 Groin pain 04/23/2013 08/28/2013 DVT (deep venous thrombosis) 10/17/201004/2018 Ac DVT/embl low ext NOS 08/23/2010 11/19/19 20 Status post inguinal hernia repair 11/23/2009 08/28/2013 Pulmonary embolism 08/26/2009 08/28/2013 Umbilical hernia without mention of obstruction or gangrene 06/21/2009 08/28/2013 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/12/2008 014 Unspecified gastritis and ga stroduodenitis without mention of hemorrhage 03/12/2008 08/28/2013 Blood in stool 03/11/2008 08/28/2013 INGUINAL HERNIA, BILAT, RECURRENT W/O GANGRENE/O BSTRUCTION 11/30/2006 08/28/2013 Adjustment disorder with depressed mood 05/16/19 06 08/28/2013 Hypothyroidism 09/30/2018 Abdominal pain, unspecified site 08/28/2013 documented as of this encounter (statuses as of 09/08/2021) [facility] History of Past illness Narrative* Problem Noted Date Resolved Date Chest pain 11/10/2019 11/13/2019 Moderate protein-calorie malnutrition 05/06/2019 11/19/2019 Epigastric pain 06/10/2015 06/10/2015 Family history of ischemic heart disease 015 11/19/2019 Other symptoms involving digestive system(787.99 ) 03/05/2014 03/05/2014 Abdominal pain, right lower quadrant 03/05/2014 03/05/2014 Groin pain 04/23/2013 08/28/2013 DVT (deep venous thrombosis) 10/17/201004/2018 Ac DVT/embl low ext NOS 08/23/2010 11/19/19 20 Status post inguinal hernia repair 11/23/2009 08/28/2013 Pulmonary embolism 08/26/2009 08/28/2013 Umbilical hernia without mention of obstruction or gangrene 06/21/2009 08/28/2013 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/12/2008 014 Unspecified gastritis and ga stroduodenitis without mention of hemorrhage 03/12/2008 08/28/2013 Blood in stool 03/11/2008 08/28/2013 INGUINAL HERNIA, BILAT, RECURRENT W/O GANGRENE/O BSTRUCTION 11/30/2006 08/28/2013 Adjustment disorder with depressed mood 05/16/19 06 08/28/2013 Hypothyroidism 09/30/2018 Abdominal pain, unspecified site 08/28/2013 documented as of this encounter (statuses as of 09/14/2021) [facility] History of Past illness Narrative* Problem Noted Date Resolved Date Chest pain 11/10/2019 11/13/2019 Moderate protein-calorie malnutrition 05/06/2019 11/19/2019 Epigastric pain 06/10/2015 06/10/2015 Family history of ischemic heart disease 015 11/19/2019 Other symptoms involving digestive system(787.99 ) 03/05/2014 03/05/2014 Abdominal pain, right lower quadrant 03/05/2014 03/05/2014 Groin pain 04/23/2013 08/28/2013 DVT (deep venous thrombosis) 10/17/201004/2018 Ac DVT/embl low ext NOS 08/23/2010 11/19/19 20 Status post inguinal hernia repair 11/23/2009 08/28/2013 Pulmonary embolism 08/26/2009 08/28/2013 Umbilical hernia without mention of obstruction or gangrene 06/21/2009 08/28/2013 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/12/2008 014 Unspecified gastritis and ga stroduodenitis without mention of hemorrhage 03/12/2008 08/28/2013 Blood in stool 03/11/2008 08/28/2013 INGUINAL HERNIA, BILAT, RECURRENT W/O GANGRENE/O BSTRUCTION 11/30/2006 08/28/2013 Adjustment disorder with depressed mood 05/16/19 06 08/28/2013 Hypothyroidism 09/30/2018 Abdominal pain, unspecified site 08/28/2013 documented as of this encounter (statuses as of 09/15/2021) [facility] History of Past illness Narrative* Problem Noted Date Resolved Date Chest pain 11/10/2019 11/13/2019 Moderate protein-calorie malnutrition 05/06/2019 11/19/2019 Epigastric pain 06/10/2015 06/10/2015 Family history of ischemic heart disease 015 11/19/2019 Other symptoms involving digestive system(787.99 ) 03/05/2014 03/05/2014 Abdominal pain, right lower quadrant 03/05/2014 03/05/2014 Groin pain 04/23/2013 08/28/2013 DVT (deep venous thrombosis) 10/17/201004/2018 Ac DVT/embl low ext NOS 08/23/2010 11/19/19 20 Status post inguinal hernia repair 11/23/2009 08/28/2013 Pulmonary embolism 08/26/2009 08/28/2013 Umbilical hernia without mention of obstruction or gangrene 06/21/2009 08/28/2013 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/12/2008 014 Unspecified gastritis and ga stroduodenitis without mention of hemorrhage 03/12/2008 08/28/2013 Blood in stool 03/11/2008 08/28/2013 INGUINAL HERNIA, BILAT, RECURRENT W/O GANGRENE/O BSTRUCTION 11/30/2006 08/28/2013 Adjustment disorder with depressed mood 05/16/19 06 08/28/2013 Hypothyroidism 09/30/2018 Abdominal pain, unspecified site 08/28/2013 documented as of this encounter (statuses as of 09/16/2021) [facility] History of Past illness Narrative* Problem Noted Date Resolved Date Chest pain 11/10/2019 11/13/2019 Moderate protein-calorie malnutrition 05/06/2019 11/19/2019 Epigastric pain 06/10/2015 06/10/2015 Family history of ischemic heart disease 015 11/19/2019 Other symptoms involving digestive system(787.99 ) 03/05/2014 03/05/2014 Abdominal pain, right lower quadrant 03/05/2014 03/05/2014 Groin pain 04/23/2013 08/28/2013 DVT (deep venous thrombosis) 10/17/201004/2018 Ac DVT/embl low ext NOS 08/23/2010 11/19/19 20 Status post inguinal hernia repair 11/23/2009 08/28/2013 Pulmonary embolism 08/26/2009 08/28/2013 Umbilical hernia without mention of obstruction or gangrene 06/21/2009 08/28/2013 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/12/2008 014 Unspecified gastritis and ga stroduodenitis without mention of hemorrhage 03/12/2008 08/28/2013 Blood in stool 03/11/2008 08/28/2013 INGUINAL HERNIA, BILAT, RECURRENT W/O GANGRENE/O BSTRUCTION 11/30/2006 08/28/2013 Adjustment disorder with depressed mood 05/16/19 06 08/28/2013 Hypothyroidism 09/30/2018 Abdominal pain, unspecified site 08/28/2013 documented as of this encounter (statuses as of 10/06/2021) [facility] History of Past illness Narrative* Problem Noted Date Resolved Date Chest pain 11/10/2019 11/13/2019 Moderate protein-calorie malnutrition 05/06/2019 11/19/2019 Epigastric pain 06/10/2015 06/10/2015 Family history of ischemic heart disease 015 11/19/2019 Other symptoms involving digestive system(787.99 ) 03/05/2014 03/05/2014 Abdominal pain, right lower quadrant 03/05/2014 03/05/2014 Groin pain 04/23/2013 08/28/2013 DVT (deep venous thrombosis) 10/17/201004/2018 Ac DVT/embl low ext NOS 08/23/2010 11/19/19 20 Status post inguinal hernia repair 11/23/2009 08/28/2013 Pulmonary embolism 08/26/2009 08/28/2013 Umbilical hernia without mention of obstruction or gangrene 06/21/2009 08/28/2013 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/12/2008 014 Unspecified gastritis and ga stroduodenitis without mention of hemorrhage 03/12/2008 08/28/2013 Blood in stool 03/11/2008 08/28/2013 INGUINAL HERNIA, BILAT, RECURRENT W/O GANGRENE/O BSTRUCTION 11/30/2006 08/28/2013 Adjustment disorder with depressed mood 05/16/19 06 08/28/2013 Hypothyroidism 09/30/2018 Abdominal pain, unspecified site 08/28/2013 documented as of this encounter (statuses as of 10/12/2021) [facility] History of Past illness Narrative* Problem Noted Date Resolved Date Chest pain 11/10/2019 11/13/2019 Moderate protein-calorie malnutrition 05/06/2019 11/19/2019 Epigastric pain 06/10/2015 06/10/2015 Family history of ischemic heart disease 015 11/19/2019 Other symptoms involving digestive system(787.99 ) 03/05/2014 03/05/2014 Abdominal pain, right lower quadrant 03/05/2014 03/05/2014 Groin pain 04/23/2013 08/28/2013 DVT (deep venous thrombosis) 10/17/201004/2018 Ac DVT/embl low ext NOS 08/23/2010 11/19/19 20 Status post inguinal hernia repair 11/23/2009 08/28/2013 Pulmonary embolism 08/26/2009 08/28/2013 Umbilical hernia without mention of obstruction or gangrene 06/21/2009 08/28/2013 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/12/2008 014 Unspecified gastritis and ga stroduodenitis without mention of hemorrhage 03/12/2008 08/28/2013 Blood in stool 03/11/2008 08/28/2013 INGUINAL HERNIA, BILAT, RECURRENT W/O GANGRENE/O BSTRUCTION 11/30/2006 08/28/2013 Adjustment disorder with depressed mood 05/16/19 06 08/28/2013 Hypothyroidism 09/30/2018 Abdominal pain, unspecified site 08/28/2013 documented as of this encounter (statuses as of 10/27/2021) [facility] History of Past illness Narrative* Problem Noted Date Resolved Date Chest pain 11/10/2019 11/13/2019 Moderate protein-calorie malnutrition 05/06/2019 11/19/2019 Epigastric pain 06/10/2015 06/10/2015 Family history of ischemic heart disease 015 11/19/2019 Other symptoms involving digestive system(787.99 ) 03/05/2014 03/05/2014 Abdominal pain, right lower quadrant 03/05/2014 03/05/2014 Groin pain 04/23/2013 08/28/2013 DVT (deep venous thrombosis) 10/17/201004/2018 Ac DVT/embl low ext NOS 08/23/2010 11/19/19 20 Status post inguinal hernia repair 11/23/2009 08/28/2013 Pulmonary embolism 08/26/2009 08/28/2013 Umbilical hernia without mention of obstruction or gangrene 06/21/2009 08/28/2013 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/12/2008 014 Unspecified gastritis and ga stroduodenitis without mention of hemorrhage 03/12/2008 08/28/2013 Blood in stool 03/11/2008 08/28/2013 INGUINAL HERNIA, BILAT, RECURRENT W/O GANGRENE/O BSTRUCTION 11/30/2006 08/28/2013 Adjustment disorder with depressed mood 05/16/19 06 08/28/2013 Hypothyroidism 09/30/2018 Abdominal pain, unspecified site 08/28/2013 documented as of this encounter (statuses as of 11/11/2021) [facility] History of Past illness Narrative* Problem Noted Date Resolved Date Chest pain 11/10/2019 11/13/2019 Moderate protein-calorie malnutrition 05/06/2019 11/19/2019 Epigastric pain 06/10/2015 06/10/2015 Family history of ischemic heart disease 015 11/19/2019 Other symptoms involving digestive system(787.99 ) 03/05/2014 03/05/2014 Abdominal pain, right lower quadrant 03/05/2014 03/05/2014 Groin pain 04/23/2013 08/28/2013 DVT (deep venous thrombosis) 10/17/201004/2018 Ac DVT/embl low ext NOS 08/23/2010 11/19/19 20 Status post inguinal hernia repair 11/23/2009 08/28/2013 Pulmonary embolism 08/26/2009 08/28/2013 Umbilical hernia without mention of obstruction or gangrene 06/21/2009 08/28/2013 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/12/2008 014 Unspecified gastritis and ga stroduodenitis without mention of hemorrhage 03/12/2008 08/28/2013 Blood in stool 03/11/2008 08/28/2013 INGUINAL HERNIA, BILAT, RECURRENT W/O GANGRENE/O BSTRUCTION 11/30/2006 08/28/2013 Adjustment disorder with depressed mood 05/16/19 06 08/28/2013 Hypothyroidism 09/30/2018 Abdominal pain, unspecified site 08/28/2013 documented as of this encounter (statuses as of 12/06/2021) [facility] History of Past illness Narrative* Problem Noted Date Resolved Date Chest pain 11/10/2019 11/13/2019 Moderate protein-calorie malnutrition 05/06/2019 11/19/2019 Epigastric pain 06/10/2015 06/10/2015 Family history of ischemic heart disease 015 11/19/2019 Other symptoms involving digestive system(787.99 ) 03/05/2014 03/05/2014 Abdominal pain, right lower quadrant 03/05/2014 03/05/2014 Groin pain 04/23/2013 08/28/2013 DVT (deep venous thrombosis) 10/17/201004/2018 Ac DVT/embl low ext NOS 08/23/2010 11/19/19 20 Status post inguinal hernia repair 11/23/2009 08/28/2013 Pulmonary embolism 08/26/2009 08/28/2013 Umbilical hernia without mention of obstruction or gangrene 06/21/2009 08/28/2013 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/12/2008 014 Unspecified gastritis and ga stroduodenitis without mention of hemorrhage 03/12/2008 08/28/2013 Blood in stool 03/11/2008 08/28/2013 INGUINAL HERNIA, BILAT, RECURRENT W/O GANGRENE/O BSTRUCTION 11/30/2006 08/28/2013 Adjustment disorder with depressed mood 05/16/19 06 08/28/2013 Hypothyroidism 09/30/2018 Abdominal pain, unspecified site 08/28/2013 documented as of this encounter (statuses as of 12/12/2021) [facility] History of Past illness Narrative* Problem Noted Date Resolved Date Chest pain 11/10/2019 11/13/2019 Moderate protein-calorie malnutrition 05/06/2019 11/19/2019 Epigastric pain 06/10/2015 06/10/2015 Family history of ischemic heart disease 015 11/19/2019 Other symptoms involving digestive system(787.99 ) 03/05/2014 03/05/2014 Abdominal pain, right lower quadrant 03/05/2014 03/05/2014 Groin pain 04/23/2013 08/28/2013 DVT (deep venous thrombosis) 10/17/201004/2018 Ac DVT/embl low ext NOS 08/23/2010 11/19/19 20 Status post inguinal hernia repair 11/23/2009 08/28/2013 Pulmonary embolism 08/26/2009 08/28/2013 Umbilical hernia without mention of obstruction or gangrene 06/21/2009 08/28/2013 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/12/2008 014 Unspecified gastritis and ga stroduodenitis without mention of hemorrhage 03/12/2008 08/28/2013 Blood in stool 03/11/2008 08/28/2013 INGUINAL HERNIA, BILAT, RECURRENT W/O GANGRENE/O BSTRUCTION 11/30/2006 08/28/2013 Adjustment disorder with depressed mood 05/16/19 06 08/28/2013 Hypothyroidism 09/30/2018 Abdominal pain, unspecified site 08/28/2013 documented as of this encounter (statuses as of 12/19/2021) [facility] History of Past illness Narrative* Problem Noted Date Resolved Date Chest pain 11/10/2019 11/13/2019 Moderate protein-calorie malnutrition 05/06/2019 11/19/2019 Epigastric pain 06/10/2015 06/10/2015 Family history of ischemic heart disease 015 11/19/2019 Other symptoms involving digestive system(787.99 ) 03/05/2014 03/05/2014 Abdominal pain, right lower quadrant 03/05/2014 03/05/2014 Groin pain 04/23/2013 08/28/2013 DVT (deep venous thrombosis) 10/17/201004/2018 Ac DVT/embl low ext NOS 08/23/2010 11/19/19 20 Status post inguinal hernia repair 11/23/2009 08/28/2013 Pulmonary embolism 08/26/2009 08/28/2013 Umbilical hernia without mention of obstruction or gangrene 06/21/2009 08/28/2013 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/12/2008 014 Unspecified gastritis and ga stroduodenitis without mention of hemorrhage 03/12/2008 08/28/2013 Blood in stool 03/11/2008 08/28/2013 INGUINAL HERNIA, BILAT, RECURRENT W/O GANGRENE/O BSTRUCTION 11/30/2006 08/28/2013 Adjustment disorder with depressed mood 05/16/19 06 08/28/2013 Hypothyroidism 09/30/2018 Abdominal pain, unspecified site 08/28/2013 documented as of this encounter (statuses as of 12/23/2021) [facility] History of Past illness Narrative* Problem Noted Date Resolved Date Chest pain 11/10/2019 11/13/2019 Moderate protein-calorie malnutrition 05/06/2019 11/19/2019 Epigastric pain 06/10/2015 06/10/2015 Family history of ischemic heart disease 015 11/19/2019 Other symptoms involving digestive system(787.99 ) 03/05/2014 03/05/2014 Abdominal pain, right lower quadrant 03/05/2014 03/05/2014 Groin pain 04/23/2013 08/28/2013 DVT (deep venous thrombosis) 10/17/201004/2018 Ac DVT/embl low ext NOS 08/23/2010 11/19/19 20 Status post inguinal hernia repair 11/23/2009 08/28/2013 Pulmonary embolism 08/26/2009 08/28/2013 Umbilical hernia without mention of obstruction or gangrene 06/21/2009 08/28/2013 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/12/2008 014 Unspecified gastritis and ga stroduodenitis without mention of hemorrhage 03/12/2008 08/28/2013 Blood in stool 03/11/2008 08/28/2013 INGUINAL HERNIA, BILAT, RECURRENT W/O GANGRENE/O BSTRUCTION 11/30/2006 08/28/2013 Adjustment disorder with depressed mood 05/16/19 06 08/28/2013 Hypothyroidism 09/30/2018 Abdominal pain, unspecified site 08/28/2013 documented as of this encounter (statuses as of 12/26/2021) [facility] History of Past illness Narrative* Problem Noted Date Resolved Date Chest pain 11/10/2019 11/13/2019 Moderate protein-calorie malnutrition 05/06/2019 11/19/2019 Epigastric pain 06/10/2015 06/10/2015 Family history of ischemic heart disease 015 11/19/2019 Other symptoms involving digestive system(787.99 ) 03/05/2014 03/05/2014 Abdominal pain, right lower quadrant 03/05/2014 03/05/2014 Groin pain 04/23/2013 08/28/2013 DVT (deep venous thrombosis) 10/17/201004/2018 Ac DVT/embl low ext NOS 08/23/2010 11/19/19 20 Status post inguinal hernia repair 11/23/2009 08/28/2013 Pulmonary embolism 08/26/2009 08/28/2013 Umbilical hernia without mention of obstruction or gangrene 06/21/2009 08/28/2013 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/12/2008 014 Unspecified gastritis and ga stroduodenitis without mention of hemorrhage 03/12/2008 08/28/2013 Blood in stool 03/11/2008 08/28/2013 INGUINAL HERNIA, BILAT, RECURRENT W/O GANGRENE/O BSTRUCTION 11/30/2006 08/28/2013 Adjustment disorder with depressed mood 05/16/19 06 08/28/2013 Hypothyroidism 09/30/2018 Abdominal pain, unspecified site 08/28/2013 documented as of this encounter (statuses as of 12/27/2021) [facility] History of Past illness Narrative* Problem Noted Date Resolved Date Chest pain 11/10/2019 11/13/2019 Moderate protein-calorie malnutrition 05/06/2019 11/19/2019 Epigastric pain 06/10/2015 06/10/2015 Family history of ischemic heart disease 015 11/19/2019 Other symptoms involving digestive system(787.99 ) 03/05/2014 03/05/2014 Abdominal pain, right lower quadrant 03/05/2014 03/05/2014 Groin pain 04/23/2013 08/28/2013 DVT (deep venous thrombosis) 10/17/201004/2018 Ac DVT/embl low ext NOS 08/23/2010 11/19/19 20 Status post inguinal hernia repair 11/23/2009 08/28/2013 Pulmonary embolism 08/26/2009 08/28/2013 Umbilical hernia without mention of obstruction or gangrene 06/21/2009 08/28/2013 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/12/2008 014 Unspecified gastritis and ga stroduodenitis without mention of hemorrhage 03/12/2008 08/28/2013 Blood in stool 03/11/2008 08/28/2013 INGUINAL HERNIA, BILAT, RECURRENT W/O GANGRENE/O BSTRUCTION 11/30/2006 08/28/2013 Adjustment disorder with depressed mood 05/16/19 06 08/28/2013 Hypothyroidism 09/30/2018 Abdominal pain, unspecified site 08/28/2013 documented as of this encounter (statuses as of 01/02/2022) [facility] History of Past illness Narrative* Problem Noted Date Resolved Date Chest pain 11/10/2019 11/13/2019 Moderate protein-calorie malnutrition 05/06/2019 11/19/2019 Epigastric pain 06/10/2015 06/10/2015 Family history of ischemic heart disease 015 11/19/2019 Other symptoms involving digestive system(787.99 ) 03/05/2014 03/05/2014 Abdominal pain, right lower quadrant 03/05/2014 03/05/2014 Groin pain 04/23/2013 08/28/2013 DVT (deep venous thrombosis) 10/17/201004/2018 Ac DVT/embl low ext NOS 08/23/2010 11/19/19 20 Status post inguinal hernia repair 11/23/2009 08/28/2013 Pulmonary embolism 08/26/2009 08/28/2013 Umbilical hernia without mention of obstruction or gangrene 06/21/2009 08/28/2013 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/12/2008 014 Unspecified gastritis and ga stroduodenitis without mention of hemorrhage 03/12/2008 08/28/2013 Blood in stool 03/11/2008 08/28/2013 INGUINAL HERNIA, BILAT, RECURRENT W/O GANGRENE/O BSTRUCTION 11/30/2006 08/28/2013 Adjustment disorder with depressed mood 05/16/19 06 08/28/2013 Hypothyroidism 09/30/2018 Abdominal pain, unspecified site 08/28/2013 documented as of this encounter (statuses as of 01/05/2022) [facility] History of Past illness Narrative* Problem Noted Date Resolved Date Chest pain 11/10/2019 11/13/2019 Moderate protein-calorie malnutrition 05/06/2019 11/19/2019 Epigastric pain 06/10/2015 06/10/2015 Family history of ischemic heart disease 015 11/19/2019 Other symptoms involving digestive system(787.99 ) 03/05/2014 03/05/2014 Abdominal pain, right lower quadrant 03/05/2014 03/05/2014 Groin pain 04/23/2013 08/28/2013 DVT (deep venous thrombosis) 10/17/201004/2018 Ac DVT/embl low ext NOS 08/23/2010 11/19/19 20 Status post inguinal hernia repair 11/23/2009 08/28/2013 Pulmonary embolism 08/26/2009 08/28/2013 Umbilical hernia without mention of obstruction or gangrene 06/21/2009 08/28/2013 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/12/2008 014 Unspecified gastritis and ga stroduodenitis without mention of hemorrhage 03/12/2008 08/28/2013 Blood in stool 03/11/2008 08/28/2013 INGUINAL HERNIA, BILAT, RECURRENT W/O GANGRENE/O BSTRUCTION 11/30/2006 08/28/2013 Adjustment disorder with depressed mood 05/16/19 06 08/28/2013 Hypothyroidism 09/30/2018 Abdominal pain, unspecified site 08/28/2013 documented as of this encounter (statuses as of 01/12/2022) [facility] History of Past illness Narrative* Problem Noted Date Resolved Date Chest pain 11/10/2019 11/13/2019 Moderate protein-calorie malnutrition 05/06/2019 11/19/2019 Epigastric pain 06/10/2015 06/10/2015 Family history of ischemic heart disease 015 11/19/2019 Other symptoms involving digestive system(787.99 ) 03/05/2014 03/05/2014 Abdominal pain, right lower quadrant 03/05/2014 03/05/2014 Groin pain 04/23/2013 08/28/2013 DVT (deep venous thrombosis) 10/17/201004/2018 Ac DVT/embl low ext NOS 08/23/2010 11/19/19 20 Status post inguinal hernia repair 11/23/2009 08/28/2013 Pulmonary embolism 08/26/2009 08/28/2013 Umbilical hernia without mention of obstruction or gangrene 06/21/2009 08/28/2013 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/12/2008 014 Unspecified gastritis and ga stroduodenitis without mention of hemorrhage 03/12/2008 08/28/2013 Blood in stool 03/11/2008 08/28/2013 INGUINAL HERNIA, BILAT, RECURRENT W/O GANGRENE/O BSTRUCTION 11/30/2006 08/28/2013 Adjustment disorder with depressed mood 05/16/19 06 08/28/2013 Hypothyroidism 09/30/2018 Abdominal pain, unspecified site 08/28/2013 documented as of this encounter (statuses as of 01/18/2022) [facility]2020 History of Past illness Narrative* Problem Noted Date Resolved Date Chest pain 11/10/2019 11/13/2019 Moderate protein-calorie malnutrition 05/06/2019 11/19/2019 Epigastric pain 06/10/2015 06/10/2015 Family history of ischemic heart disease 015 11/19/2019 Other symptoms involving digestive system(787.99 ) 03/05/2014 03/05/2014 Abdominal pain, right lower quadrant 03/05/2014 03/05/2014 Groin pain 04/23/2013 08/28/2013 DVT (deep venous thrombosis) 10/17/201004/2018 Ac DVT/embl low ext NOS 08/23/2010 11/19/19 20 Status post inguinal hernia repair 11/23/2009 08/28/2013 Pulmonary embolism 08/26/2009 08/28/2013 Umbilical hernia without mention of obstruction or gangrene 06/21/2009 08/28/2013 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/12/2008 014 Unspecified gastritis and ga stroduodenitis without mention of hemorrhage 03/12/2008 08/28/2013 Blood in stool 03/11/2008 08/28/2013 INGUINAL HERNIA, BILAT, RECURRENT W/O GANGRENE/O BSTRUCTION 11/30/2006 08/28/2013 Adjustment disorder with depressed mood 05/16/19 06 08/28/2013 Hypothyroidism 09/30/2018 Abdominal pain, unspecified site 08/28/2013 documented as of this encounter (statuses as of 01/19/2022) [facility] History of Past illness Narrative* Problem Noted Date Resolved Date Chest pain 11/10/2019 11/13/2019 Moderate protein-calorie malnutrition 05/06/2019 11/19/2019 Epigastric pain 06/10/2015 06/10/2015 Family history of ischemic heart disease 015 11/19/2019 Other symptoms involving digestive system(787.99 ) 03/05/2014 03/05/2014 Abdominal pain, right lower quadrant 03/05/2014 03/05/2014 Groin pain 04/23/2013 08/28/2013 DVT (deep venous thrombosis) 10/17/201004/2018 Ac DVT/embl low ext NOS 08/23/2010 11/19/19 20 Status post inguinal hernia repair 11/23/2009 08/28/2013 Pulmonary embolism 08/26/2009 08/28/2013 Umbilical hernia without mention of obstruction or gangrene 06/21/2009 08/28/2013 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/12/2008 014 Unspecified gastritis and ga stroduodenitis without mention of hemorrhage 03/12/2008 08/28/2013 Blood in stool 03/11/2008 08/28/2013 INGUINAL HERNIA, BILAT, RECURRENT W/O GANGRENE/O BSTRUCTION 11/30/2006 08/28/2013 Adjustment disorder with depressed mood 05/16/19 06 08/28/2013 Hypothyroidism 09/30/2018 Abdominal pain, unspecified site 08/28/2013 documented as of this encounter (statuses as of 01/24/2022) [facility] History of Past illness Narrative* Problem Noted Date Resolved Date Chest pain 11/10/2019 11/13/2019 Moderate protein-calorie malnutrition 05/06/2019 11/19/2019 Epigastric pain 06/10/2015 06/10/2015 Family history of ischemic heart disease 015 11/19/2019 Other symptoms involving digestive system(787.99 ) 03/05/2014 03/05/2014 Abdominal pain, right lower quadrant 03/05/2014 03/05/2014 Groin pain 04/23/2013 08/28/2013 DVT (deep venous thrombosis) 10/17/201004/2018 Ac DVT/embl low ext NOS 08/23/2010 11/19/19 20 Status post inguinal hernia repair 11/23/2009 08/28/2013 Pulmonary embolism 08/26/2009 08/28/2013 Umbilical hernia without mention of obstruction or gangrene 06/21/2009 08/28/2013 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/12/2008 014 Unspecified gastritis and ga stroduodenitis without mention of hemorrhage 03/12/2008 08/28/2013 Blood in stool 03/11/2008 08/28/2013 INGUINAL HERNIA, BILAT, RECURRENT W/O GANGRENE/O BSTRUCTION 11/30/2006 08/28/2013 Adjustment disorder with depressed mood 05/16/19 06 08/28/2013 Hypothyroidism 09/30/2018 Abdominal pain, unspecified site 08/28/2013 documented as of this encounter (statuses as of 01/31/2022) [facility] History of Past illness Narrative* Problem Noted Date Resolved Date Chest pain 11/10/2019 11/13/2019 Moderate protein-calorie malnutrition 05/06/2019 11/19/2019 Epigastric pain 06/10/2015 06/10/2015 Family history of ischemic heart disease 015 11/19/2019 Other symptoms involving digestive system(787.99 ) 03/05/2014 03/05/2014 Abdominal pain, right lower quadrant 03/05/2014 03/05/2014 Groin pain 04/23/2013 08/28/2013 DVT (deep venous thrombosis) 10/17/201004/2018 Ac DVT/embl low ext NOS 08/23/2010 11/19/19 20 Status post inguinal hernia repair 11/23/2009 08/28/2013 Pulmonary embolism 08/26/2009 08/28/2013 Umbilical hernia without mention of obstruction or gangrene 06/21/2009 08/28/2013 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/12/2008 014 Unspecified gastritis and ga stroduodenitis without mention of hemorrhage 03/12/2008 08/28/2013 Blood in stool 03/11/2008 08/28/2013 INGUINAL HERNIA, BILAT, RECURRENT W/O GANGRENE/O BSTRUCTION 11/30/2006 08/28/2013 Adjustment disorder with depressed mood 05/16/19 06 08/28/2013 Hypothyroidism 09/30/2018 Abdominal pain, unspecified site 08/28/2013 documented as of this encounter (statuses as of 02/01/2022) [facility] History of Past illness Narrative* Problem Noted Date Resolved Date Chest pain 11/10/2019 11/13/2019 Moderate protein-calorie malnutrition 05/06/2019 11/19/2019 Epigastric pain 06/10/2015 06/10/2015 Family history of ischemic heart disease 015 11/19/2019 Other symptoms involving digestive system(787.99 ) 03/05/2014 03/05/2014 Abdominal pain, right lower quadrant 03/05/2014 03/05/2014 Groin pain 04/23/2013 08/28/2013 DVT (deep venous thrombosis) 10/17/201004/2018 Ac DVT/embl low ext NOS 08/23/2010 11/19/19 20 Status post inguinal hernia repair 11/23/2009 08/28/2013 Pulmonary embolism 08/26/2009 08/28/2013 Umbilical hernia without mention of obstruction or gangrene 06/21/2009 08/28/2013 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/12/2008 014 Unspecified gastritis and ga stroduodenitis without mention of hemorrhage 03/12/2008 08/28/2013 Blood in stool 03/11/2008 08/28/2013 INGUINAL HERNIA, BILAT, RECURRENT W/O GANGRENE/O BSTRUCTION 11/30/2006 08/28/2013 Adjustment disorder with depressed mood 05/16/19 06 08/28/2013 Hypothyroidism 09/30/2018 Abdominal pain, unspecified site 08/28/2013 documented as of this encounter (statuses as of 02/03/2022) [facility] History of Past illness Narrative* Problem Noted Date Resolved Date Chest pain 11/10/2019 11/13/2019 Moderate protein-calorie malnutrition 05/06/2019 11/19/2019 Epigastric pain 06/10/2015 06/10/2015 Family history of ischemic heart disease 015 11/19/2019 Other symptoms involving digestive system(787.99 ) 03/05/2014 03/05/2014 Abdominal pain, right lower quadrant 03/05/2014 03/05/2014 Groin pain 04/23/2013 08/28/2013 DVT (deep venous thrombosis) 10/17/201004/2018 Ac DVT/embl low ext NOS 08/23/2010 11/19/19 20 Status post inguinal hernia repair 11/23/2009 08/28/2013 Pulmonary embolism 08/26/2009 08/28/2013 Umbilical hernia without mention of obstruction or gangrene 06/21/2009 08/28/2013 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/12/2008 014 Unspecified gastritis and ga stroduodenitis without mention of hemorrhage 03/12/2008 08/28/2013 Blood in stool 03/11/2008 08/28/2013 INGUINAL HERNIA, BILAT, RECURRENT W/O GANGRENE/O BSTRUCTION 11/30/2006 08/28/2013 Adjustment disorder with depressed mood 05/16/19 06 08/28/2013 Hypothyroidism 09/30/2018 Abdominal pain, unspecified site 08/28/2013 documented as of this encounter (statuses as of 02/06/2022) [facility] History of Past illness Narrative* Problem Noted Date Resolved Date Chest pain 11/10/2019 11/13/2019 Moderate protein-calorie malnutrition 05/06/2019 11/19/2019 Epigastric pain 06/10/2015 06/10/2015 Family history of ischemic heart disease 015 11/19/2019 Other symptoms involving digestive system(787.99 ) 03/05/2014 03/05/2014 Abdominal pain, right lower quadrant 03/05/2014 03/05/2014 Groin pain 04/23/2013 08/28/2013 DVT (deep venous thrombosis) 10/17/201004/2018 Ac DVT/embl low ext NOS 08/23/2010 11/19/19 20 Status post inguinal hernia repair 11/23/2009 08/28/2013 Pulmonary embolism 08/26/2009 08/28/2013 Umbilical hernia without mention of obstruction or gangrene 06/21/2009 08/28/2013 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/12/2008 014 Unspecified gastritis and ga stroduodenitis without mention of hemorrhage 03/12/2008 08/28/2013 Blood in stool 03/11/2008 08/28/2013 INGUINAL HERNIA, BILAT, RECURRENT W/O GANGRENE/O BSTRUCTION 11/30/2006 08/28/2013 Adjustment disorder with depressed mood 05/16/19 06 08/28/2013 Hypothyroidism 09/30/2018 Abdominal pain, unspecified site 08/28/2013 documented as of this encounter (statuses as of 02/10/2022) [facility] History of Past illness Narrative* Problem Noted Date Resolved Date Chest pain 11/10/2019 11/13/2019 Moderate protein-calorie malnutrition 05/06/2019 11/19/2019 Epigastric pain 06/10/2015 06/10/2015 Family history of ischemic heart disease 015 11/19/2019 Other symptoms involving digestive system(787.99 ) 03/05/2014 03/05/2014 Abdominal pain, right lower quadrant 03/05/2014 03/05/2014 Groin pain 04/23/2013 08/28/2013 DVT (deep venous thrombosis) 10/17/201004/2018 Ac DVT/embl low ext NOS 08/23/2010 11/19/19 20 Status post inguinal hernia repair 11/23/2009 08/28/2013 Pulmonary embolism 08/26/2009 08/28/2013 Umbilical hernia without mention of obstruction or gangrene 06/21/2009 08/28/2013 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/12/2008 014 Unspecified gastritis and ga stroduodenitis without mention of hemorrhage 03/12/2008 08/28/2013 Blood in stool 03/11/2008 08/28/2013 INGUINAL HERNIA, BILAT, RECURRENT W/O GANGRENE/O BSTRUCTION 11/30/2006 08/28/2013 Adjustment disorder with depressed mood 05/16/19 06 08/28/2013 Hypothyroidism 09/30/2018 Abdominal pain, unspecified site 08/28/2013 documented as of this encounter (statuses as of 02/10/2022) [facility] History of Past illness Narrative* Problem Noted Date Resolved Date Chest pain 11/10/2019 11/13/2019 Moderate protein-calorie malnutrition 05/06/2019 11/19/2019 Epigastric pain 06/10/2015 06/10/2015 Family history of ischemic heart disease 015 11/19/2019 Other symptoms involving digestive system(787.99 ) 03/05/2014 03/05/2014 Abdominal pain, right lower quadrant 03/05/2014 03/05/2014 Groin pain 04/23/2013 08/28/2013 DVT (deep venous thrombosis) 10/17/201004/2018 Ac DVT/embl low ext NOS 08/23/2010 11/19/19 20 Status post inguinal hernia repair 11/23/2009 08/28/2013 Pulmonary embolism 08/26/2009 08/28/2013 Umbilical hernia without mention of obstruction or gangrene 06/21/2009 08/28/2013 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/12/2008 014 Unspecified gastritis and ga stroduodenitis without mention of hemorrhage 03/12/2008 08/28/2013 Blood in stool 03/11/2008 08/28/2013 INGUINAL HERNIA, BILAT, RECURRENT W/O GANGRENE/O BSTRUCTION 11/30/2006 08/28/2013 Adjustment disorder with depressed mood 05/16/19 06 08/28/2013 Hypothyroidism 09/30/2018 Abdominal pain, unspecified site 08/28/2013 documented as of this encounter (statuses as of 02/14/2022) [facility] History of Past illness Narrative* Problem Noted Date Resolved Date Chest pain 11/10/2019 11/13/2019 Moderate protein-calorie malnutrition 05/06/2019 11/19/2019 Epigastric pain 06/10/2015 06/10/2015 Family history of ischemic heart disease 015 11/19/2019 Other symptoms involving digestive system(787.99 ) 03/05/2014 03/05/2014 Abdominal pain, right lower quadrant 03/05/2014 03/05/2014 Groin pain 04/23/2013 08/28/2013 DVT (deep venous thrombosis) 10/17/201004/2018 Ac DVT/embl low ext NOS 08/23/2010 11/19/19 20 Status post inguinal hernia repair 11/23/2009 08/28/2013 Pulmonary embolism 08/26/2009 08/28/2013 Umbilical hernia without mention of obstruction or gangrene 06/21/2009 08/28/2013 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/12/2008 014 Unspecified gastritis and ga stroduodenitis without mention of hemorrhage 03/12/2008 08/28/2013 Blood in stool 03/11/2008 08/28/2013 INGUINAL HERNIA, BILAT, RECURRENT W/O GANGRENE/O BSTRUCTION 11/30/2006 08/28/2013 Adjustment disorder with depressed mood 05/16/19 06 08/28/2013 Hypothyroidism 09/30/2018 Abdominal pain, unspecified site 08/28/2013 documented as of this encounter (statuses as of 02/17/2022) [facility] History of Past illness Narrative* Problem Noted Date Resolved Date Chest pain 11/10/2019 11/13/2019 Hospital discharge follow-up 05/14/2019 Moderate protein-calorie malnutrition 05/06/2019 11/19/2019 Epigastric pain 06/10/2015 06/10/2015 DVT prophylaxis 11/05/2014 02/21/2022 Family history of ischemic heart disease 015 11/19/2019 Other symptoms involving digestive system(787.99 ) 03/05/2014 03/05/2014 Abdominal pain, right lower quadrant 03/05/2014 03/05/2014 Groin pain 04/23/2013 08/28/2013 DVT (deep venous thrombosis) 10/17/201004/2018 Ac DVT/embl low ext NOS 08/23/2010 11/19/19 20 Status post inguinal hernia repair 11/23/2009 08/28/2013 Pulmonary embolism 08/26/2009 08/28/2013 Umbilical hernia without mention of obstruction or gangrene 06/21/2009 08/28/2013 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/12/2008 014 Unspecified gastritis and ga stroduodenitis without mention of hemorrhage 03/12/2008 08/28/2013 Blood in stool 03/11/2008 08/28/2013 INGUINAL HERNIA, BILAT, RECURRENT W/O GANGRENE/O BSTRUCTION 11/30/2006 08/28/2013 Adjustment disorder with depressed mood 05/16/19 06 08/28/2013 Hypothyroidism 09/30/2018 Abdominal pain, unspecified site 08/28/2013 documented as of this encounter (statuses as of 02/21/2022) [facility] History of Past illness Narrative* Problem Noted Date Resolved Date Chest pain 11/10/2019 11/13/2019 Hospital discharge follow-up 05/14/2019 Moderate protein-calorie malnutrition 05/06/2019 11/19/2019 Epigastric pain 06/10/2015 06/10/2015 DVT prophylaxis 11/05/2014 02/21/2022 Family history of ischemic heart disease 015 11/19/2019 Other symptoms involving digestive system(787.99 ) 03/05/2014 03/05/2014 Abdominal pain, right lower quadrant 03/05/2014 03/05/2014 Groin pain 04/23/2013 08/28/2013 DVT (deep venous thrombosis) 10/17/201004/2018 Ac DVT/embl low ext NOS 08/23/2010 11/19/19 20 Status post inguinal hernia repair 11/23/2009 08/28/2013 Pulmonary embolism 08/26/2009 08/28/2013 Umbilical hernia without mention of obstruction or gangrene 06/21/2009 08/28/2013 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/12/2008 014 Unspecified gastritis and ga stroduodenitis without mention of hemorrhage 03/12/2008 08/28/2013 Blood in stool 03/11/2008 08/28/2013 INGUINAL HERNIA, BILAT, RECURRENT W/O GANGRENE/O BSTRUCTION 11/30/2006 08/28/2013 Adjustment disorder with depressed mood 05/16/19 06 08/28/2013 Hypothyroidism 09/30/2018 Abdominal pain, unspecified site 08/28/2013 documented as of this encounter (statuses as of 03/02/2022) [facility] History of Past illness Narrative* Problem Noted Date Resolved Date Chest pain 11/10/2019 11/13/2019 Hospital discharge follow-up 05/14/2019 Moderate protein-calorie malnutrition 05/06/2019 11/19/2019 Epigastric pain 06/10/2015 06/10/2015 DVT prophylaxis 11/05/2014 02/21/2022 Family history of ischemic heart disease 015 11/19/2019 Other symptoms involving digestive system(787.99 ) 03/05/2014 03/05/2014 Abdominal pain, right lower quadrant 03/05/2014 03/05/2014 Groin pain 04/23/2013 08/28/2013 DVT (deep venous thrombosis) 10/17/201004/2018 Ac DVT/embl low ext NOS 08/23/2010 11/19/19 20 Status post inguinal hernia repair 11/23/2009 08/28/2013 Pulmonary embolism 08/26/2009 08/28/2013 Umbilical hernia without mention of obstruction or gangrene 06/21/2009 08/28/2013 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/12/2008 014 Unspecified gastritis and ga stroduodenitis without mention of hemorrhage 03/12/2008 08/28/2013 Blood in stool 03/11/2008 08/28/2013 INGUINAL HERNIA, BILAT, RECURRENT W/O GANGRENE/O BSTRUCTION 11/30/2006 08/28/2013 Adjustment disorder with depressed mood 05/16/19 06 08/28/2013 Hypothyroidism 09/30/2018 Abdominal pain, unspecified site 08/28/2013 documented as of this encounter (statuses as of 03/07/2022) [facility] History of Past illness Narrative* Problem Noted Date Resolved Date Chest pain 11/10/2019 11/13/2019 Hospital discharge follow-up 05/14/2019 Moderate protein-calorie malnutrition 05/06/2019 11/19/2019 Epigastric pain 06/10/2015 06/10/2015 DVT prophylaxis 11/05/2014 02/21/2022 Family history of ischemic heart disease 015 11/19/2019 Other symptoms involving digestive system(787.99 ) 03/05/2014 03/05/2014 Abdominal pain, right lower quadrant 03/05/2014 03/05/2014 Groin pain 04/23/2013 08/28/2013 DVT (deep venous thrombosis) 10/17/201004/2018 Ac DVT/embl low ext NOS 08/23/2010 11/19/19 20 Status post inguinal hernia repair 11/23/2009 08/28/2013 Pulmonary embolism 08/26/2009 08/28/2013 Umbilical hernia without mention of obstruction or gangrene 06/21/2009 08/28/2013 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/12/2008 014 Unspecified gastritis and ga stroduodenitis without mention of hemorrhage 03/12/2008 08/28/2013 Blood in stool 03/11/2008 08/28/2013 INGUINAL HERNIA, BILAT, RECURRENT W/O GANGRENE/O BSTRUCTION 11/30/2006 08/28/2013 Adjustment disorder with depressed mood 05/16/19 06 08/28/2013 Hypothyroidism 09/30/2018 Abdominal pain, unspecified site 08/28/2013 documented as of this encounter (statuses as of 03/13/2022) [facility] History of Past illness Narrative* Problem Noted Date Resolved Date Chest pain 11/10/2019 11/13/2019 Hospital discharge follow-up 05/14/2019 Moderate protein-calorie malnutrition 05/06/2019 11/19/2019 Epigastric pain 06/10/2015 06/10/2015 DVT prophylaxis 11/05/2014 02/21/2022 Family history of ischemic heart disease 015 11/19/2019 Other symptoms involving digestive system(787.99 ) 03/05/2014 03/05/2014 Abdominal pain, right lower quadrant 03/05/2014 03/05/2014 Groin pain 04/23/2013 08/28/2013 DVT (deep venous thrombosis) 10/17/201004/2018 Ac DVT/embl low ext NOS 08/23/2010 11/19/19 20 Status post inguinal hernia repair 11/23/2009 08/28/2013 Pulmonary embolism 08/26/2009 08/28/2013 Umbilical hernia without mention of obstruction or gangrene 06/21/2009 08/28/2013 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/12/2008 014 Unspecified gastritis and ga stroduodenitis without mention of hemorrhage 03/12/2008 08/28/2013 Blood in stool 03/11/2008 08/28/2013 INGUINAL HERNIA, BILAT, RECURRENT W/O GANGRENE/O BSTRUCTION 11/30/2006 08/28/2013 Adjustment disorder with depressed mood 05/16/19 06 08/28/2013 Hypothyroidism 09/30/2018 Abdominal pain, unspecified site 08/28/2013 documented as of this encounter (statuses as of 03/14/2022) [facility] History of Past illness Narrative* Problem Noted Date Resolved Date Chest pain 11/10/2019 11/13/2019 Hospital discharge follow-up 05/14/2019 Moderate protein-calorie malnutrition 05/06/2019 11/19/2019 Epigastric pain 06/10/2015 06/10/2015 DVT prophylaxis 11/05/2014 02/21/2022 Family history of ischemic heart disease 015 11/19/2019 Other symptoms involving digestive system(787.99 ) 03/05/2014 03/05/2014 Abdominal pain, right lower quadrant 03/05/2014 03/05/2014 Groin pain 04/23/2013 08/28/2013 DVT (deep venous thrombosis) 10/17/201004/2018 Ac DVT/embl low ext NOS 08/23/2010 11/19/19 20 Status post inguinal hernia repair 11/23/2009 08/28/2013 Pulmonary embolism 08/26/2009 08/28/2013 Umbilical hernia without mention of obstruction or gangrene 06/21/2009 08/28/2013 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/12/2008 014 Unspecified gastritis and ga stroduodenitis without mention of hemorrhage 03/12/2008 08/28/2013 Blood in stool 03/11/2008 08/28/2013 INGUINAL HERNIA, BILAT, RECURRENT W/O GANGRENE/O BSTRUCTION 11/30/2006 08/28/2013 Adjustment disorder with depressed mood 05/16/19 06 08/28/2013 Hypothyroidism 09/30/2018 Abdominal pain, unspecified site 08/28/2013 documented as of this encounter (statuses as of 03/14/2022) [facility] History of Past illness Narrative* Problem Noted Date Resolved Date Chest pain 11/10/2019 11/13/2019 Hospital discharge follow-up 05/14/2019 Moderate protein-calorie malnutrition 05/06/2019 11/19/2019 Epigastric pain 06/10/2015 06/10/2015 DVT prophylaxis 11/05/2014 02/21/2022 Family history of ischemic heart disease 015 11/19/2019 Other symptoms involving digestive system(787.99 ) 03/05/2014 03/05/2014 Abdominal pain, right lower quadrant 03/05/2014 03/05/2014 Groin pain 04/23/2013 08/28/2013 DVT (deep venous thrombosis) 10/17/201004/2018 Ac DVT/embl low ext NOS 08/23/2010 11/19/19 20 Status post inguinal hernia repair 11/23/2009 08/28/2013 Pulmonary embolism 08/26/2009 08/28/2013 Umbilical hernia without mention of obstruction or gangrene 06/21/2009 08/28/2013 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/12/2008 014 Unspecified gastritis and ga stroduodenitis without mention of hemorrhage 03/12/2008 08/28/2013 Blood in stool 03/11/2008 08/28/2013 INGUINAL HERNIA, BILAT, RECURRENT W/O GANGRENE/O BSTRUCTION 11/30/2006 08/28/2013 Adjustment disorder with depressed mood 05/16/19 06 08/28/2013 Hypothyroidism 09/30/2018 Abdominal pain, unspecified site 08/28/2013 documented as of this encounter (statuses as of 03/15/2022) [facility] History of Past illness Narrative* Problem Noted Date Resolved Date Chest pain 11/10/2019 11/13/2019 Hospital discharge follow-up 05/14/2019 Moderate protein-calorie malnutrition 05/06/2019 11/19/2019 Epigastric pain 06/10/2015 06/10/2015 DVT prophylaxis 11/05/2014 02/21/2022 Family history of ischemic heart disease 015 11/19/2019 Other symptoms involving digestive system(787.99 ) 03/05/2014 03/05/2014 Abdominal pain, right lower quadrant 03/05/2014 03/05/2014 Groin pain 04/23/2013 08/28/2013 DVT (deep venous thrombosis) 10/17/201004/2018 Ac DVT/embl low ext NOS 08/23/2010 11/19/19 20 Status post inguinal hernia repair 11/23/2009 08/28/2013 Pulmonary embolism 08/26/2009 08/28/2013 Umbilical hernia without mention of obstruction or gangrene 06/21/2009 08/28/2013 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/12/2008 014 Unspecified gastritis and ga stroduodenitis without mention of hemorrhage 03/12/2008 08/28/2013 Blood in stool 03/11/2008 08/28/2013 INGUINAL HERNIA, BILAT, RECURRENT W/O GANGRENE/O BSTRUCTION 11/30/2006 08/28/2013 Adjustment disorder with depressed mood 05/16/19 06 08/28/2013 Hypothyroidism 09/30/2018 Abdominal pain, unspecified site 08/28/2013 documented as of this encounter (statuses as of 03/21/2022) [facility] History of Past illness Narrative* Problem Noted Date Resolved Date Chest pain 11/10/2019 11/13/2019 Hospital discharge follow-up 05/14/2019 Moderate protein-calorie malnutrition 05/06/2019 11/19/2019 Epigastric pain 06/10/2015 06/10/2015 DVT prophylaxis 11/05/2014 02/21/2022 Family history of ischemic heart disease 015 11/19/2019 Other symptoms involving digestive system(787.99 ) 03/05/2014 03/05/2014 Abdominal pain, right lower quadrant 03/05/2014 03/05/2014 Groin pain 04/23/2013 08/28/2013 DVT (deep venous thrombosis) 10/17/201004/2018 Ac DVT/embl low ext NOS 08/23/2010 11/19/19 20 Status post inguinal hernia repair 11/23/2009 08/28/2013 Pulmonary embolism 08/26/2009 08/28/2013 Umbilical hernia without mention of obstruction or gangrene 06/21/2009 08/28/2013 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/12/2008 014 Unspecified gastritis and ga stroduodenitis without mention of hemorrhage 03/12/2008 08/28/2013 Blood in stool 03/11/2008 08/28/2013 INGUINAL HERNIA, BILAT, RECURRENT W/O GANGRENE/O BSTRUCTION 11/30/2006 08/28/2013 Adjustment disorder with depressed mood 05/16/19 06 08/28/2013 Hypothyroidism 09/30/2018 Abdominal pain, unspecified site 08/28/2013 documented as of this encounter (statuses as of 03/22/2022) [facility] History of Past illness Narrative* Problem Noted Date Resolved Date Chest pain 11/10/2019 11/13/2019 Hospital discharge follow-up 05/14/2019 Moderate protein-calorie malnutrition 05/06/2019 11/19/2019 Epigastric pain 06/10/2015 06/10/2015 DVT prophylaxis 11/05/2014 02/21/2022 Family history of ischemic heart disease 015 11/19/2019 Other symptoms involving digestive system(787.99 ) 03/05/2014 03/05/2014 Abdominal pain, right lower quadrant 03/05/2014 03/05/2014 Groin pain 04/23/2013 08/28/2013 DVT (deep venous thrombosis) 10/17/201004/2018 Ac DVT/embl low ext NOS 08/23/2010 11/19/19 20 Status post inguinal hernia repair 11/23/2009 08/28/2013 Pulmonary embolism 08/26/2009 08/28/2013 Umbilical hernia without mention of obstruction or gangrene 06/21/2009 08/28/2013 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/12/2008 014 Unspecified gastritis and ga stroduodenitis without mention of hemorrhage 03/12/2008 08/28/2013 Blood in stool 03/11/2008 08/28/2013 INGUINAL HERNIA, BILAT, RECURRENT W/O GANGRENE/O BSTRUCTION 11/30/2006 08/28/2013 Adjustment disorder with depressed mood 05/16/19 06 08/28/2013 Hypothyroidism 09/30/2018 Abdominal pain, unspecified site 08/28/2013 documented as of this encounter (statuses as of 04/04/2022) [facility]-2020 History of Past illness Narrative* Problem Noted Date Resolved Date Chest pain 11/10/2019 11/13/2019 Hospital discharge follow-up 05/14/2019 Moderate protein-calorie malnutrition 05/06/2019 11/19/2019 Epigastric pain 06/10/2015 06/10/2015 DVT prophylaxis 11/05/2014 02/21/2022 Family history of ischemic heart disease 015 11/19/2019 Other symptoms involving digestive system(787.99 ) 03/05/2014 03/05/2014 Abdominal pain, right lower quadrant 03/05/2014 03/05/2014 Groin pain 04/23/2013 08/28/2013 DVT (deep venous thrombosis) 10/17/201004/2018 Ac DVT/embl low ext NOS 08/23/2010 11/19/19 20 Status post inguinal hernia repair 11/23/2009 08/28/2013 Pulmonary embolism 08/26/2009 08/28/2013 Umbilical hernia without mention of obstruction or gangrene 06/21/2009 08/28/2013 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/12/2008 014 Unspecified gastritis and ga stroduodenitis without mention of hemorrhage 03/12/2008 08/28/2013 Blood in stool 03/11/2008 08/28/2013 INGUINAL HERNIA, BILAT, RECURRENT W/O GANGRENE/O BSTRUCTION 11/30/2006 08/28/2013 Adjustment disorder with depressed mood 05/16/19 06 08/28/2013 Hypothyroidism 09/30/2018 Abdominal pain, unspecified site 08/28/2013 documented as of this encounter (statuses as of 04/06/2022) [facility] History of Past illness Narrative* Problem Noted Date Resolved Date Chest pain 11/10/2019 11/13/2019 Hospital discharge follow-up 05/14/2019 Moderate protein-calorie malnutrition 05/06/2019 11/19/2019 Epigastric pain 06/10/2015 06/10/2015 DVT prophylaxis 11/05/2014 02/21/2022 Family history of ischemic heart disease 015 11/19/2019 Other symptoms involving digestive system(787.99 ) 03/05/2014 03/05/2014 Abdominal pain, right lower quadrant 03/05/2014 03/05/2014 Groin pain 04/23/2013 08/28/2013 DVT (deep venous thrombosis) 10/17/201004/2018 Ac DVT/embl low ext NOS 08/23/2010 11/19/19 20 Status post inguinal hernia repair 11/23/2009 08/28/2013 Pulmonary embolism 08/26/2009 08/28/2013 Umbilical hernia without mention of obstruction or gangrene 06/21/2009 08/28/2013 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/12/2008 014 Unspecified gastritis and ga stroduodenitis without mention of hemorrhage 03/12/2008 08/28/2013 Blood in stool 03/11/2008 08/28/2013 INGUINAL HERNIA, BILAT, RECURRENT W/O GANGRENE/O BSTRUCTION 11/30/2006 08/28/2013 Adjustment disorder with depressed mood 05/16/19 06 08/28/2013 Hypothyroidism 09/30/2018 Abdominal pain, unspecified site 08/28/2013 documented as of this encounter (statuses as of 04/07/2022) [facility] History of Past illness Narrative* Problem Noted Date Resolved Date Chest pain 11/10/2019 11/13/2019 Hospital discharge follow-up 05/14/2019 Moderate protein-calorie malnutrition 05/06/2019 11/19/2019 Epigastric pain 06/10/2015 06/10/2015 DVT prophylaxis 11/05/2014 02/21/2022 Family history of ischemic heart disease 015 11/19/2019 Other symptoms involving digestive system(787.99 ) 03/05/2014 03/05/2014 Abdominal pain, right lower quadrant 03/05/2014 03/05/2014 Groin pain 04/23/2013 08/28/2013 DVT (deep venous thrombosis) 10/17/201004/2018 Ac DVT/embl low ext NOS 08/23/2010 11/19/19 20 Status post inguinal hernia repair 11/23/2009 08/28/2013 Pulmonary embolism 08/26/2009 08/28/2013 Umbilical hernia without mention of obstruction or gangrene 06/21/2009 08/28/2013 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/12/2008 014 Unspecified gastritis and ga stroduodenitis without mention of hemorrhage 03/12/2008 08/28/2013 Blood in stool 03/11/2008 08/28/2013 INGUINAL HERNIA, BILAT, RECURRENT W/O GANGRENE/O BSTRUCTION 11/30/2006 08/28/2013 Adjustment disorder with depressed mood 05/16/19 06 08/28/2013 Hypothyroidism 09/30/2018 Abdominal pain, unspecified site 08/28/2013 documented as of this encounter (statuses as of 04/08/2022) [facility] History of Past illness Narrative* Problem Noted Date Resolved Date Chest pain 11/10/2019 11/13/2019 Hospital discharge follow-up 05/14/2019 Moderate protein-calorie malnutrition 05/06/2019 11/19/2019 Epigastric pain 06/10/2015 06/10/2015 DVT prophylaxis 11/05/2014 02/21/2022 Family history of ischemic heart disease 015 11/19/2019 Other symptoms involving digestive system(787.99 ) 03/05/2014 03/05/2014 Abdominal pain, right lower quadrant 03/05/2014 03/05/2014 Groin pain 04/23/2013 08/28/2013 DVT (deep venous thrombosis) 10/17/201004/2018 Ac DVT/embl low ext NOS 08/23/2010 11/19/19 20 Status post inguinal hernia repair 11/23/2009 08/28/2013 Pulmonary embolism 08/26/2009 08/28/2013 Umbilical hernia without mention of obstruction or gangrene 06/21/2009 08/28/2013 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/12/2008 014 Unspecified gastritis and ga stroduodenitis without mention of hemorrhage 03/12/2008 08/28/2013 Blood in stool 03/11/2008 08/28/2013 INGUINAL HERNIA, BILAT, RECURRENT W/O GANGRENE/O BSTRUCTION 11/30/2006 08/28/2013 Adjustment disorder with depressed mood 05/16/19 06 08/28/2013 Hypothyroidism 09/30/2018 Abdominal pain, unspecified site 08/28/2013 documented as of this encounter (statuses as of 04/10/2022) [facility] History of Past illness Narrative* Problem Noted Date Resolved Date Chest pain 11/10/2019 11/13/2019 Hospital discharge follow-up 05/14/2019 Moderate protein-calorie malnutrition 05/06/2019 11/19/2019 Epigastric pain 06/10/2015 06/10/2015 DVT prophylaxis 11/05/2014 02/21/2022 Family history of ischemic heart disease 015 11/19/2019 Other symptoms involving digestive system(787.99 ) 03/05/2014 03/05/2014 Abdominal pain, right lower quadrant 03/05/2014 03/05/2014 Groin pain 04/23/2013 08/28/2013 DVT (deep venous thrombosis) 10/17/201004/2018 Ac DVT/embl low ext NOS 08/23/2010 11/19/19 20 Status post inguinal hernia repair 11/23/2009 08/28/2013 Pulmonary embolism 08/26/2009 08/28/2013 Umbilical hernia without mention of obstruction or gangrene 06/21/2009 08/28/2013 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/12/2008 014 Unspecified gastritis and ga stroduodenitis without mention of hemorrhage 03/12/2008 08/28/2013 Blood in stool 03/11/2008 08/28/2013 INGUINAL HERNIA, BILAT, RECURRENT W/O GANGRENE/O BSTRUCTION 11/30/2006 08/28/2013 Adjustment disorder with depressed mood 05/16/19 06 08/28/2013 Hypothyroidism 09/30/2018 Abdominal pain, unspecified site 08/28/2013 documented as of this encounter (statuses as of 04/11/2022) [facility] History of Past illness Narrative* Problem Noted Date Resolved Date Chest pain 11/10/2019 11/13/2019 Hospital discharge follow-up 05/14/2019 Moderate protein-calorie malnutrition 05/06/2019 11/19/2019 Epigastric pain 06/10/2015 06/10/2015 DVT prophylaxis 11/05/2014 02/21/2022 Family history of ischemic heart disease 015 11/19/2019 Other symptoms involving digestive system(787.99 ) 03/05/2014 03/05/2014 Abdominal pain, right lower quadrant 03/05/2014 03/05/2014 Groin pain 04/23/2013 08/28/2013 DVT (deep venous thrombosis) 10/17/201004/2018 Ac DVT/embl low ext NOS 08/23/2010 11/19/19 20 Status post inguinal hernia repair 11/23/2009 08/28/2013 Pulmonary embolism 08/26/2009 08/28/2013 Umbilical hernia without mention of obstruction or gangrene 06/21/2009 08/28/2013 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/12/2008 014 Unspecified gastritis and ga stroduodenitis without mention of hemorrhage 03/12/2008 08/28/2013 Blood in stool 03/11/2008 08/28/2013 INGUINAL HERNIA, BILAT, RECURRENT W/O GANGRENE/O BSTRUCTION 11/30/2006 08/28/2013 Adjustment disorder with depressed mood 05/16/19 06 08/28/2013 Hypothyroidism 09/30/2018 Abdominal pain, unspecified site 08/28/2013 documented as of this encounter (statuses as of 04/12/2022) [facility] History of Past illness Narrative* Problem Noted Date Resolved Date Chest pain 11/10/2019 11/13/2019 Hospital discharge follow-up 05/14/2019 Moderate protein-calorie malnutrition 05/06/2019 11/19/2019 Epigastric pain 06/10/2015 06/10/2015 DVT prophylaxis 11/05/2014 02/21/2022 Family history of ischemic heart disease 015 11/19/2019 Other symptoms involving digestive system(787.99 ) 03/05/2014 03/05/2014 Abdominal pain, right lower quadrant 03/05/2014 03/05/2014 Groin pain 04/23/2013 08/28/2013 DVT (deep venous thrombosis) 10/17/201004/2018 Ac DVT/embl low ext NOS 08/23/2010 11/19/19 20 Status post inguinal hernia repair 11/23/2009 08/28/2013 Pulmonary embolism 08/26/2009 08/28/2013 Umbilical hernia without mention of obstruction or gangrene 06/21/2009 08/28/2013 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/12/2008 014 Unspecified gastritis and ga stroduodenitis without mention of hemorrhage 03/12/2008 08/28/2013 Blood in stool 03/11/2008 08/28/2013 INGUINAL HERNIA, BILAT, RECURRENT W/O GANGRENE/O BSTRUCTION 11/30/2006 08/28/2013 Adjustment disorder with depressed mood 05/16/19 06 08/28/2013 Hypothyroidism 09/30/2018 Abdominal pain, unspecified site 08/28/2013 documented as of this encounter (statuses as of 04/18/2022) [facility] History of Past illness Narrative* Problem Noted Date Resolved Date Chest pain 11/10/2019 11/13/2019 Hospital discharge follow-up 05/14/2019 Moderate protein-calorie malnutrition 05/06/2019 11/19/2019 Epigastric pain 06/10/2015 06/10/2015 DVT prophylaxis 11/05/2014 02/21/2022 Family history of ischemic heart disease 015 11/19/2019 Other symptoms involving digestive system(787.99 ) 03/05/2014 03/05/2014 Abdominal pain, right lower quadrant 03/05/2014 03/05/2014 Groin pain 04/23/2013 08/28/2013 DVT (deep venous thrombosis) 10/17/201004/2018 Ac DVT/embl low ext NOS 08/23/2010 11/19/19 20 Status post inguinal hernia repair 11/23/2009 08/28/2013 Pulmonary embolism 08/26/2009 08/28/2013 Umbilical hernia without mention of obstruction or gangrene 06/21/2009 08/28/2013 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/12/2008 014 Unspecified gastritis and ga stroduodenitis without mention of hemorrhage 03/12/2008 08/28/2013 Blood in stool 03/11/2008 08/28/2013 INGUINAL HERNIA, BILAT, RECURRENT W/O GANGRENE/O BSTRUCTION 11/30/2006 08/28/2013 Adjustment disorder with depressed mood 05/16/19 06 08/28/2013 Hypothyroidism 09/30/2018 Abdominal pain, unspecified site 08/28/2013 documented as of this encounter (statuses as of 05/15/2022) [facility] History of Past illness Narrative* Problem Noted Date Resolved Date Chest pain 11/10/2019 11/13/2019 Hospital discharge follow-up 05/14/2019 Moderate protein-calorie malnutrition 05/06/2019 11/19/2019 Epigastric pain 06/10/2015 06/10/2015 DVT prophylaxis 11/05/2014 02/21/2022 Family history of ischemic heart disease 015 11/19/2019 Other symptoms involving digestive system(787.99 ) 03/05/2014 03/05/2014 Abdominal pain, right lower quadrant 03/05/2014 03/05/2014 Groin pain 04/23/2013 08/28/2013 DVT (deep venous thrombosis) 10/17/201004/2018 Ac DVT/embl low ext NOS 08/23/2010 11/19/19 20 Status post inguinal hernia repair 11/23/2009 08/28/2013 Umbilical hernia without mention of obstruction or gangrene 06/21/2009 08/28/2013 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/12/2008 014 Unspecified gastritis and ga stroduodenitis without mention of hemorrhage 03/12/2008 08/28/2013 Blood in stool 03/11/2008 08/28/2013 INGUINAL HERNIA, BILAT, RECURRENT W/O GANGRENE/O BSTRUCTION 11/30/2006 08/28/2013 Adjustment disorder with depressed mood 05/16/19 06 08/28/2013 Hypothyroidism 09/30/2018 Abdominal pain, unspecified site 08/28/2013 documented as of this encounter (statuses as of 05/23/2022) [facility] History of Past illness Narrative* Problem Noted Date Resolved Date Chest pain 11/10/2019 11/13/2019 Hospital discharge follow-up 05/14/2019 Moderate protein-calorie malnutrition 05/06/2019 11/19/2019 Epigastric pain 06/10/2015 06/10/2015 DVT prophylaxis 11/05/2014 02/21/2022 Family history of ischemic heart disease 015 11/19/2019 Other symptoms involving digestive system(787.99 ) 03/05/2014 03/05/2014 Abdominal pain, right lower quadrant 03/05/2014 03/05/2014 Groin pain 04/23/2013 08/28/2013 DVT (deep venous thrombosis) 10/17/201004/2018 Ac DVT/embl low ext NOS 08/23/2010 11/19/19 20 Status post inguinal hernia repair 11/23/2009 08/28/2013 Umbilical hernia without mention of obstruction or gangrene 06/21/2009 08/28/2013 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/12/2008 014 Unspecified gastritis and ga stroduodenitis without mention of hemorrhage 03/12/2008 08/28/2013 Blood in stool 03/11/2008 08/28/2013 INGUINAL HERNIA, BILAT, RECURRENT W/O GANGRENE/O BSTRUCTION 11/30/2006 08/28/2013 Adjustment disorder with depressed mood 05/16/19 06 08/28/2013 Hypothyroidism 09/30/2018 Abdominal pain, unspecified site 08/28/2013 documented as of this encounter (statuses as of 05/23/2022) [facility] History of Past illness Narrative* Problem Noted Date Resolved Date Chest pain 11/10/2019 11/13/2019 Hospital discharge follow-up 05/14/2019 Moderate protein-calorie malnutrition 05/06/2019 11/19/2019 Epigastric pain 06/10/2015 06/10/2015 DVT prophylaxis 11/05/2014 02/21/2022 Family history of ischemic heart disease 015 11/19/2019 Other symptoms involving digestive system(787.99 ) 03/05/2014 03/05/2014 Abdominal pain, right lower quadrant 03/05/2014 03/05/2014 Groin pain 04/23/2013 08/28/2013 DVT (deep venous thrombosis) 10/17/201004/2018 Ac DVT/embl low ext NOS 08/23/2010 11/19/19 20 Status post inguinal hernia repair 11/23/2009 08/28/2013 Umbilical hernia without mention of obstruction or gangrene 06/21/2009 08/28/2013 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/12/2008 014 Unspecified gastritis and ga stroduodenitis without mention of hemorrhage 03/12/2008 08/28/2013 Blood in stool 03/11/2008 08/28/2013 INGUINAL HERNIA, BILAT, RECURRENT W/O GANGRENE/O BSTRUCTION 11/30/2006 08/28/2013 Adjustment disorder with depressed mood 05/16/19 06 08/28/2013 Hypothyroidism 09/30/2018 Abdominal pain, unspecified site 08/28/2013 documented as of this encounter (statuses as of 05/24/2022) [facility] History of Past illness Narrative* Problem Noted Date Resolved Date Chest pain 11/10/2019 11/13/2019 Hospital discharge follow-up 05/14/2019 Moderate protein-calorie malnutrition 05/06/2019 11/19/2019 Epigastric pain 06/10/2015 06/10/2015 DVT prophylaxis 11/05/2014 02/21/2022 Family history of ischemic heart disease 015 11/19/2019 Other symptoms involving digestive system(787.99 ) 03/05/2014 03/05/2014 Abdominal pain, right lower quadrant 03/05/2014 03/05/2014 Groin pain 04/23/2013 08/28/2013 DVT (deep venous thrombosis) 10/17/201004/2018 Ac DVT/embl low ext NOS 08/23/2010 11/19/19 20 Status post inguinal hernia repair 11/23/2009 08/28/2013 Umbilical hernia without mention of obstruction or gangrene 06/21/2009 08/28/2013 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/12/2008 014 Unspecified gastritis and ga stroduodenitis without mention of hemorrhage 03/12/2008 08/28/2013 Blood in stool 03/11/2008 08/28/2013 INGUINAL HERNIA, BILAT, RECURRENT W/O GANGRENE/O BSTRUCTION 11/30/2006 08/28/2013 Adjustment disorder with depressed mood 05/16/19 06 08/28/2013 Hypothyroidism 09/30/2018 Abdominal pain, unspecified site 08/28/2013 documented as of this encounter (statuses as of 05/26/2022) [facility] History of Past illness Narrative* Problem Noted Date Resolved Date Chest pain 11/10/2019 11/13/2019 Hospital discharge follow-up 05/14/2019 Moderate protein-calorie malnutrition 05/06/2019 11/19/2019 Epigastric pain 06/10/2015 06/10/2015 DVT prophylaxis 11/05/2014 02/21/2022 Family history of ischemic heart disease 015 11/19/2019 Other symptoms involving digestive system(787.99 ) 03/05/2014 03/05/2014 Abdominal pain, right lower quadrant 03/05/2014 03/05/2014 Groin pain 04/23/2013 08/28/2013 DVT (deep venous thrombosis) 10/17/201004/2018 Ac DVT/embl low ext NOS 08/23/2010 11/19/19 20 Status post inguinal hernia repair 11/23/2009 08/28/2013 Umbilical hernia without mention of obstruction or gangrene 06/21/2009 08/28/2013 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/12/2008 014 Unspecified gastritis and ga stroduodenitis without mention of hemorrhage 03/12/2008 08/28/2013 Blood in stool 03/11/2008 08/28/2013 INGUINAL HERNIA, BILAT, RECURRENT W/O GANGRENE/O BSTRUCTION 11/30/2006 08/28/2013 Adjustment disorder with depressed mood 05/16/19 06 08/28/2013 Hypothyroidism 09/30/2018 Abdominal pain, unspecified site 08/28/2013 documented as of this encounter (statuses as of 06/02/2022) [facility] History of Past illness Narrative* Problem Noted Date Resolved Date Chest pain 11/10/2019 11/13/2019 Hospital discharge follow-up 05/14/2019 Moderate protein-calorie malnutrition 05/06/2019 11/19/2019 Epigastric pain 06/10/2015 06/10/2015 DVT prophylaxis 11/05/2014 02/21/2022 Family history of ischemic heart disease 015 11/19/2019 Other symptoms involving digestive system(787.99 ) 03/05/2014 03/05/2014 Abdominal pain, right lower quadrant 03/05/2014 03/05/2014 Groin pain 04/23/2013 08/28/2013 DVT (deep venous thrombosis) 10/17/201004/2018 Ac DVT/embl low ext NOS 08/23/2010 11/19/19 20 Status post inguinal hernia repair 11/23/2009 08/28/2013 Umbilical hernia without mention of obstruction or gangrene 06/21/2009 08/28/2013 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/12/2008 014 Unspecified gastritis and ga stroduodenitis without mention of hemorrhage 03/12/2008 08/28/2013 Blood in stool 03/11/2008 08/28/2013 INGUINAL HERNIA, BILAT, RECURRENT W/O GANGRENE/O BSTRUCTION 11/30/2006 08/28/2013 Adjustment disorder with depressed mood 05/16/19 06 08/28/2013 Hypothyroidism 09/30/2018 Abdominal pain, unspecified site 08/28/2013 documented as of this encounter (statuses as of 06/02/2022) [facility] History of Past illness Narrative* Problem Noted Date Resolved Date Chest pain 11/10/2019 11/13/2019 Hospital discharge follow-up 05/14/2019 Moderate protein-calorie malnutrition 05/06/2019 11/19/2019 Epigastric pain 06/10/2015 06/10/2015 DVT prophylaxis 11/05/2014 02/21/2022 Family history of ischemic heart disease 015 11/19/2019 Other symptoms involving digestive system(787.99 ) 03/05/2014 03/05/2014 Abdominal pain, right lower quadrant 03/05/2014 03/05/2014 Groin pain 04/23/2013 08/28/2013 DVT (deep venous thrombosis) 10/17/201004/2018 Ac DVT/embl low ext NOS 08/23/2010 11/19/19 20 Status post inguinal hernia repair 11/23/2009 08/28/2013 Umbilical hernia without mention of obstruction or gangrene 06/21/2009 08/28/2013 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/12/2008 014 Unspecified gastritis and ga stroduodenitis without mention of hemorrhage 03/12/2008 08/28/2013 Blood in stool 03/11/2008 08/28/2013 INGUINAL HERNIA, BILAT, RECURRENT W/O GANGRENE/O BSTRUCTION 11/30/2006 08/28/2013 Adjustment disorder with depressed mood 05/16/19 06 08/28/2013 Hypothyroidism 09/30/2018 Abdominal pain, unspecified site 08/28/2013 documented as of this encounter (statuses as of 06/09/2022) [facility] History of Past illness Narrative* Problem Noted Date Resolved Date Chest pain 11/10/2019 11/13/2019 Hospital discharge follow-up 05/14/2019 Moderate protein-calorie malnutrition 05/06/2019 11/19/2019 Epigastric pain 06/10/2015 06/10/2015 DVT prophylaxis 11/05/2014 02/21/2022 Family history of ischemic heart disease 015 11/19/2019 Other symptoms involving digestive system(787.99 ) 03/05/2014 03/05/2014 Abdominal pain, right lower quadrant 03/05/2014 03/05/2014 Groin pain 04/23/2013 08/28/2013 DVT (deep venous thrombosis) 10/17/201004/2018 Ac DVT/embl low ext NOS 08/23/2010 11/19/19 20 Status post inguinal hernia repair 11/23/2009 08/28/2013 Umbilical hernia without mention of obstruction or gangrene 06/21/2009 08/28/2013 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/12/2008 014 Unspecified gastritis and ga stroduodenitis without mention of hemorrhage 03/12/2008 08/28/2013 Blood in stool 03/11/2008 08/28/2013 INGUINAL HERNIA, BILAT, RECURRENT W/O GANGRENE/O BSTRUCTION 11/30/2006 08/28/2013 Adjustment disorder with depressed mood 05/16/19 06 08/28/2013 Hypothyroidism 09/30/2018 Abdominal pain, unspecified site 08/28/2013 documented as of this encounter (statuses as of 06/12/2022) [facility] History of Past illness Narrative* Problem Noted Date Resolved Date Chest pain 11/10/2019 11/13/2019 Hospital discharge follow-up 05/14/2019 Moderate protein-calorie malnutrition 05/06/2019 11/19/2019 Epigastric pain 06/10/2015 06/10/2015 DVT prophylaxis 11/05/2014 02/21/2022 Family history of ischemic heart disease 015 11/19/2019 Other symptoms involving digestive system(787.99 ) 03/05/2014 03/05/2014 Abdominal pain, right lower quadrant 03/05/2014 03/05/2014 Groin pain 04/23/2013 08/28/2013 DVT (deep venous thrombosis) 10/17/201004/2018 Ac DVT/embl low ext NOS 08/23/2010 11/19/19 20 Status post inguinal hernia repair 11/23/2009 08/28/2013 Umbilical hernia without mention of obstruction or gangrene 06/21/2009 08/28/2013 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/12/2008 014 Unspecified gastritis and ga stroduodenitis without mention of hemorrhage 03/12/2008 08/28/2013 Blood in stool 03/11/2008 08/28/2013 INGUINAL HERNIA, BILAT, RECURRENT W/O GANGRENE/O BSTRUCTION 11/30/2006 08/28/2013 Adjustment disorder with depressed mood 05/16/19 06 08/28/2013 Hypothyroidism 09/30/2018 Abdominal pain, unspecified site 08/28/2013 documented as of this encounter (statuses as of 06/12/2022) [facility] History of Past illness Narrative* Problem Noted Date Resolved Date Chest pain 11/10/2019 11/13/2019 Hospital discharge follow-up 05/14/2019 Moderate protein-calorie malnutrition 05/06/2019 11/19/2019 Epigastric pain 06/10/2015 06/10/2015 DVT prophylaxis 11/05/2014 02/21/2022 Family history of ischemic heart disease 015 11/19/2019 Other symptoms involving digestive system(787.99 ) 03/05/2014 03/05/2014 Abdominal pain, right lower quadrant 03/05/2014 03/05/2014 Groin pain 04/23/2013 08/28/2013 DVT (deep venous thrombosis) 10/17/201004/2018 Ac DVT/embl low ext NOS 08/23/2010 11/19/19 20 Status post inguinal hernia repair 11/23/2009 08/28/2013 Umbilical hernia without mention of obstruction or gangrene 06/21/2009 08/28/2013 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/12/2008 014 Unspecified gastritis and ga stroduodenitis without mention of hemorrhage 03/12/2008 08/28/2013 Blood in stool 03/11/2008 08/28/2013 INGUINAL HERNIA, BILAT, RECURRENT W/O GANGRENE/O BSTRUCTION 11/30/2006 08/28/2013 Adjustment disorder with depressed mood 05/16/19 06 08/28/2013 Hypothyroidism 09/30/2018 Abdominal pain, unspecified site 08/28/2013 documented as of this encounter (statuses as of 06/21/2022) [facility] History of Past illness Narrative* Problem Noted Date Resolved Date Chest pain 11/10/2019 11/13/2019 Hospital discharge follow-up 05/14/2019 Moderate protein-calorie malnutrition 05/06/2019 11/19/2019 Epigastric pain 06/10/2015 06/10/2015 DVT prophylaxis 11/05/2014 02/21/2022 Family history of ischemic heart disease 015 11/19/2019 Other symptoms involving digestive system(787.99 ) 03/05/2014 03/05/2014 Abdominal pain, right lower quadrant 03/05/2014 03/05/2014 Groin pain 04/23/2013 08/28/2013 DVT (deep venous thrombosis) 10/17/201004/2018 Ac DVT/embl low ext NOS 08/23/2010 11/19/19 20 Status post inguinal hernia repair 11/23/2009 08/28/2013 Umbilical hernia without mention of obstruction or gangrene 06/21/2009 08/28/2013 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/12/2008 014 Unspecified gastritis and ga stroduodenitis without mention of hemorrhage 03/12/2008 08/28/2013 Blood in stool 03/11/2008 08/28/2013 INGUINAL HERNIA, BILAT, RECURRENT W/O GANGRENE/O BSTRUCTION 11/30/2006 08/28/2013 Adjustment disorder with depressed mood 05/16/19 06 08/28/2013 Hypothyroidism 09/30/2018 Abdominal pain, unspecified site 08/28/2013 documented as of this encounter (statuses as of 06/27/2022) [facility] History of Past illness Narrative* Problem Noted Date Resolved Date Chest pain 11/10/2019 11/13/2019 Hospital discharge follow-up 05/14/2019 Moderate protein-calorie malnutrition 05/06/2019 11/19/2019 Epigastric pain 06/10/2015 06/10/2015 DVT prophylaxis 11/05/2014 02/21/2022 Family history of ischemic heart disease 015 11/19/2019 Other symptoms involving digestive system(787.99 ) 03/05/2014 03/05/2014 Abdominal pain, right lower quadrant 03/05/2014 03/05/2014 Groin pain 04/23/2013 08/28/2013 DVT (deep venous thrombosis) 10/17/201004/2018 Ac DVT/embl low ext NOS 08/23/2010 11/19/19 20 Status post inguinal hernia repair 11/23/2009 08/28/2013 Umbilical hernia without mention of obstruction or gangrene 06/21/2009 08/28/2013 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/12/2008 014 Unspecified gastritis and ga stroduodenitis without mention of hemorrhage 03/12/2008 08/28/2013 Blood in stool 03/11/2008 08/28/2013 INGUINAL HERNIA, BILAT, RECURRENT W/O GANGRENE/O BSTRUCTION 11/30/2006 08/28/2013 Adjustment disorder with depressed mood 05/16/19 06 08/28/2013 Hypothyroidism 09/30/2018 Abdominal pain, unspecified site 08/28/2013 documented as of this encounter (statuses as of 07/05/2022) [facility]08-[facility] History of Past illness Narrative* Problem Noted Date Resolved Date Chest pain 11/10/2019 11/13/2019 Hospital discharge follow-up 05/14/2019 Moderate protein-calorie malnutrition 05/06/2019 11/19/2019 Epigastric pain 06/10/2015 06/10/2015 DVT prophylaxis 11/05/2014 02/21/2022 Family history of ischemic heart disease 015 11/19/2019 Other symptoms involving digestive system(787.99 ) 03/05/2014 03/05/2014 Abdominal pain, right lower quadrant 03/05/2014 03/05/2014 Groin pain 04/23/2013 08/28/2013 DVT (deep venous thrombosis) 10/17/201004/2018 Ac DVT/embl low ext NOS 08/23/2010 11/19/19 20 Status post inguinal hernia repair 11/23/2009 08/28/2013 Umbilical hernia without mention of obstruction or gangrene 06/21/2009 08/28/2013 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/12/2008 014 Unspecified gastritis and ga stroduodenitis without mention of hemorrhage 03/12/2008 08/28/2013 Blood in stool 03/11/2008 08/28/2013 INGUINAL HERNIA, BILAT, RECURRENT W/O GANGRENE/O BSTRUCTION 11/30/2006 08/28/2013 Adjustment disorder with depressed mood 05/16/19 06 08/28/2013 Hypothyroidism 09/30/2018 Abdominal pain, unspecified site 08/28/2013 documented as of this encounter (statuses as of 07/10/2022) [facility] History of Past illness Narrative* Problem Noted Date Resolved Date Chest pain 11/10/2019 11/13/2019 Hospital discharge follow-up 05/14/2019 Moderate protein-calorie malnutrition 05/06/2019 11/19/2019 Epigastric pain 06/10/2015 06/10/2015 DVT prophylaxis 11/05/2014 02/21/2022 Family history of ischemic heart disease 015 11/19/2019 Other symptoms involving digestive system(787.99 ) 03/05/2014 03/05/2014 Abdominal pain, right lower quadrant 03/05/2014 03/05/2014 Groin pain 04/23/2013 08/28/2013 DVT (deep venous thrombosis) 10/17/201004/2018 Ac DVT/embl low ext NOS 08/23/2010 11/19/19 20 Status post inguinal hernia repair 11/23/2009 08/28/2013 Umbilical hernia without mention of obstruction or gangrene 06/21/2009 08/28/2013 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/12/2008 014 Unspecified gastritis and ga stroduodenitis without mention of hemorrhage 03/12/2008 08/28/2013 Blood in stool 03/11/2008 08/28/2013 INGUINAL HERNIA, BILAT, RECURRENT W/O GANGRENE/O BSTRUCTION 11/30/2006 08/28/2013 Adjustment disorder with depressed mood 05/16/19 06 08/28/2013 Hypothyroidism 09/30/2018 Abdominal pain, unspecified site 08/28/2013 documented as of this encounter (statuses as of 07/12/2022) [facility] History of Past illness Narrative* Problem Noted Date Resolved Date Chest pain 11/10/2019 11/13/2019 Hospital discharge follow-up 05/14/2019 Moderate protein-calorie malnutrition 05/06/2019 11/19/2019 Epigastric pain 06/10/2015 06/10/2015 DVT prophylaxis 11/05/2014 02/21/2022 Family history of ischemic heart disease 015 11/19/2019 Other symptoms involving digestive system(787.99 ) 03/05/2014 03/05/2014 Abdominal pain, right lower quadrant 03/05/2014 03/05/2014 Groin pain 04/23/2013 08/28/2013 DVT (deep venous thrombosis) 10/17/201004/2018 Ac DVT/embl low ext NOS 08/23/2010 11/19/19 20 Status post inguinal hernia repair 11/23/2009 08/28/2013 Umbilical hernia without mention of obstruction or gangrene 06/21/2009 08/28/2013 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/12/2008 014 Unspecified gastritis and ga stroduodenitis without mention of hemorrhage 03/12/2008 08/28/2013 Blood in stool 03/11/2008 08/28/2013 INGUINAL HERNIA, BILAT, RECURRENT W/O GANGRENE/O BSTRUCTION 11/30/2006 08/28/2013 Adjustment disorder with depressed mood 05/16/19 06 08/28/2013 Hypothyroidism 09/30/2018 Abdominal pain, unspecified site 08/28/2013 documented as of this encounter (statuses as of 07/27/2022) [facility] History of Past illness Narrative* Problem Noted Date Resolved Date Chest pain 11/10/2019 11/13/2019 Hospital discharge follow-up 05/14/2019 Moderate protein-calorie malnutrition 05/06/2019 11/19/2019 Epigastric pain 06/10/2015 06/10/2015 DVT prophylaxis 11/05/2014 02/21/2022 Family history of ischemic heart disease 015 11/19/2019 Other symptoms involving digestive system(787.99 ) 03/05/2014 03/05/2014 Abdominal pain, right lower quadrant 03/05/2014 03/05/2014 Groin pain 04/23/2013 08/28/2013 DVT (deep venous thrombosis) 10/17/201004/2018 Ac DVT/embl low ext NOS 08/23/2010 11/19/19 20 Status post inguinal hernia repair 11/23/2009 08/28/2013 Umbilical hernia without mention of obstruction or gangrene 06/21/2009 08/28/2013 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/12/2008 014 Unspecified gastritis and ga stroduodenitis without mention of hemorrhage 03/12/2008 08/28/2013 Blood in stool 03/11/2008 08/28/2013 INGUINAL HERNIA, BILAT, RECURRENT W/O GANGRENE/O BSTRUCTION 11/30/2006 08/28/2013 Adjustment disorder with depressed mood 05/16/19 06 08/28/2013 Hypothyroidism 09/30/2018 Abdominal pain, unspecified site 08/28/2013 documented as of this encounter (statuses as of 08/01/2022) [facility]08-[facility] History of Past illness Narrative* Problem Noted Date Resolved Date Chest pain 11/10/2019 11/13/2019 Hospital discharge follow-up 05/14/2019 Moderate protein-calorie malnutrition 05/06/2019 11/19/2019 Epigastric pain 06/10/2015 06/10/2015 DVT prophylaxis 11/05/2014 02/21/2022 Family history of ischemic heart disease 015 11/19/2019 Other symptoms involving digestive system(787.99 ) 03/05/2014 03/05/2014 Abdominal pain, right lower quadrant 03/05/2014 03/05/2014 Groin pain 04/23/2013 08/28/2013 DVT (deep venous thrombosis) 10/17/201004/2018 Ac DVT/embl low ext NOS 08/23/2010 11/19/19 20 Status post inguinal hernia repair 11/23/2009 08/28/2013 Umbilical hernia without mention of obstruction or gangrene 06/21/2009 08/28/2013 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/12/2008 014 Unspecified gastritis and ga stroduodenitis without mention of hemorrhage 03/12/2008 08/28/2013 Blood in stool 03/11/2008 08/28/2013 INGUINAL HERNIA, BILAT, RECURRENT W/O GANGRENE/O BSTRUCTION 11/30/2006 08/28/2013 Adjustment disorder with depressed mood 05/16/19 06 08/28/2013 Hypothyroidism 09/30/2018 Abdominal pain, unspecified site 08/28/2013 documented as of this encounter (statuses as of 08/06/2022) [facility] History of Past illness Narrative* Problem Noted Date Resolved Date Chest pain 11/10/2019 11/13/2019 Hospital discharge follow-up 05/14/2019 Moderate protein-calorie malnutrition 05/06/2019 11/19/2019 Epigastric pain 06/10/2015 06/10/2015 DVT prophylaxis 11/05/2014 02/21/2022 Family history of ischemic heart disease 015 11/19/2019 Other symptoms involving digestive system(787.99 ) 03/05/2014 03/05/2014 Abdominal pain, right lower quadrant 03/05/2014 03/05/2014 Groin pain 04/23/2013 08/28/2013 DVT (deep venous thrombosis) 10/17/201004/2018 Ac DVT/embl low ext NOS 08/23/2010 11/19/19 20 Status post inguinal hernia repair 11/23/2009 08/28/2013 Umbilical hernia without mention of obstruction or gangrene 06/21/2009 08/28/2013 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/12/2008 014 Unspecified gastritis and ga stroduodenitis without mention of hemorrhage 03/12/2008 08/28/2013 Blood in stool 03/11/2008 08/28/2013 INGUINAL HERNIA, BILAT, RECURRENT W/O GANGRENE/O BSTRUCTION 11/30/2006 08/28/2013 Adjustment disorder with depressed mood 05/16/19 06 08/28/2013 Hypothyroidism 09/30/2018 Abdominal pain, unspecified site 08/28/2013 documented as of this encounter (statuses as of 08/08/2022) [facility] History of Past illness Narrative* Problem Noted Date Resolved Date Chest pain 11/10/2019 11/13/2019 Hospital discharge follow-up 05/14/2019 Moderate protein-calorie malnutrition 05/06/2019 11/19/2019 Epigastric pain 06/10/2015 06/10/2015 DVT prophylaxis 11/05/2014 02/21/2022 Family history of ischemic heart disease 015 11/19/2019 Other symptoms involving digestive system(787.99 ) 03/05/2014 03/05/2014 Abdominal pain, right lower quadrant 03/05/2014 03/05/2014 Groin pain 04/23/2013 08/28/2013 DVT (deep venous thrombosis) 10/17/201004/2018 Ac DVT/embl low ext NOS 08/23/2010 11/19/19 20 Status post inguinal hernia repair 11/23/2009 08/28/2013 Umbilical hernia without mention of obstruction or gangrene 06/21/2009 08/28/2013 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/12/2008 014 Unspecified gastritis and ga stroduodenitis without mention of hemorrhage 03/12/2008 08/28/2013 Blood in stool 03/11/2008 08/28/2013 INGUINAL HERNIA, BILAT, RECURRENT W/O GANGRENE/O BSTRUCTION 11/30/2006 08/28/2013 Adjustment disorder with depressed mood 05/16/19 06 08/28/2013 Hypothyroidism 09/30/2018 Abdominal pain, unspecified site 08/28/2013 documented as of this encounter (statuses as of 08/30/2022) [facility] History of Past illness Narrative* Problem Noted Date Resolved Date Chest pain 11/10/2019 11/13/2019 Hospital discharge follow-up 05/14/2019 Moderate protein-calorie malnutrition 05/06/2019 11/19/2019 Epigastric pain 06/10/2015 06/10/2015 DVT prophylaxis 11/05/2014 02/21/2022 Family history of ischemic heart disease 015 11/19/2019 Other symptoms involving digestive system(787.99 ) 03/05/2014 03/05/2014 Abdominal pain, right lower quadrant 03/05/2014 03/05/2014 Groin pain 04/23/2013 08/28/2013 DVT (deep venous thrombosis) 10/17/201004/2018 Ac DVT/embl low ext NOS 08/23/2010 11/19/19 20 Status post inguinal hernia repair 11/23/2009 08/28/2013 Umbilical hernia without mention of obstruction or gangrene 06/21/2009 08/28/2013 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/12/2008 014 Unspecified gastritis and ga stroduodenitis without mention of hemorrhage 03/12/2008 08/28/2013 Blood in stool 03/11/2008 08/28/2013 INGUINAL HERNIA, BILAT, RECURRENT W/O GANGRENE/O BSTRUCTION 11/30/2006 08/28/2013 Adjustment disorder with depressed mood 05/16/19 06 08/28/2013 Hypothyroidism 09/30/2018 Abdominal pain, unspecified site 08/28/2013 documented as of this encounter (statuses as of 09/16/2022) [facility] History of Past illness Narrative* Problem Noted Date Resolved Date Chest pain 11/10/2019 11/13/2019 Hospital discharge follow-up 05/14/2019 Moderate protein-calorie malnutrition 05/06/2019 11/19/2019 Epigastric pain 06/10/2015 06/10/2015 DVT prophylaxis 11/05/2014 02/21/2022 Family history of ischemic heart disease 015 11/19/2019 Other symptoms involving digestive system(787.99 ) 03/05/2014 03/05/2014 Abdominal pain, right lower quadrant 03/05/2014 03/05/2014 Groin pain 04/23/2013 08/28/2013 DVT (deep venous thrombosis) 10/17/201004/2018 Ac DVT/embl low ext NOS 08/23/2010 11/19/19 20 Status post inguinal hernia repair 11/23/2009 08/28/2013 Umbilical hernia without mention of obstruction or gangrene 06/21/2009 08/28/2013 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/12/2008 014 Unspecified gastritis and ga stroduodenitis without mention of hemorrhage 03/12/2008 08/28/2013 Blood in stool 03/11/2008 08/28/2013 INGUINAL HERNIA, BILAT, RECURRENT W/O GANGRENE/O BSTRUCTION 11/30/2006 08/28/2013 Adjustment disorder with depressed mood 05/16/19 06 08/28/2013 Hypothyroidism 09/30/2018 Abdominal pain, unspecified site 08/28/2013 documented as of this encounter (statuses as of 09/27/2022) [facility] History of Past illness Narrative* Problem Noted Date Resolved Date Chest pain 11/10/2019 11/13/2019 Hospital discharge follow-up 05/14/2019 Moderate protein-calorie malnutrition 05/06/2019 11/19/2019 Epigastric pain 06/10/2015 06/10/2015 DVT prophylaxis 11/05/2014 02/21/2022 Family history of ischemic heart disease 015 11/19/2019 Other symptoms involving digestive system(787.99 ) 03/05/2014 03/05/2014 Abdominal pain, right lower quadrant 03/05/2014 03/05/2014 Groin pain 04/23/2013 08/28/2013 DVT (deep venous thrombosis) 10/17/201004/2018 Ac DVT/embl low ext NOS 08/23/2010 11/19/19 20 Status post inguinal hernia repair 11/23/2009 08/28/2013 Umbilical hernia without mention of obstruction or gangrene 06/21/2009 08/28/2013 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/12/2008 014 Unspecified gastritis and ga stroduodenitis without mention of hemorrhage 03/12/2008 08/28/2013 Blood in stool 03/11/2008 08/28/2013 INGUINAL HERNIA, BILAT, RECURRENT W/O GANGRENE/O BSTRUCTION 11/30/2006 08/28/2013 Adjustment disorder with depressed mood 05/16/19 06 08/28/2013 Hypothyroidism 09/30/2018 Abdominal pain, unspecified site 08/28/2013 documented as of this encounter (statuses as of 10/05/2022) [facility] Diagnosis Chronic diastolic heart failure (HCC)- Primary Chronic diastolic heart failure Examination of participant in clinical trial [facility] Diagnosis Research study patient- Primary [facility]* Diagnosis 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) Other amyloidosis Chronic diastolic heart failure (HCC) Chronic diastolic heart failure Mixed hyperlipidemia Essential hypertension Unspecified essential hypertension Coronary artery disease due to calcified coronary lesion Patient in clinical research study- [id number] Cardio TTRansform Neuropathy Mononeuritis of unspecified site [facility] Diagnosis 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ein of right lower extremity (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 [facility] Diagnosis Acquired hypothyroidism- Primary Unspecified hypothyroidism Statin intolerance Other drug allergy Essential hypertension Unspecified essential hypertension Mixed hyperlipidemia Insomnia, unspecified type [facility] Diagnosis Patient in clinical research study- Primary [facility] Diagnosis Acute pain of right shoulder [facility] Diagnosis 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 [facility] Diagnosis Research subject- Primary [facility] Diagnosis Mixed hyperlipidemia- Primary [facility] Diagnosis 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 [facility] Diagnosis Cardiac amyloidosis (HCC)- Primary Other amyloidosis Examination of participant in clinical trial [facility] Diagnosis Essential hypertension- Primary Unspecified essential hypertension Acquired hypothyroidism Unspecified hypothyroidism Urinary hesitancy Mixed hyperlipidemia 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) Other amyloidosis Need for influenza vaccination Need for prophylactic vaccination and inoculation against influenza [facility] Diagnosis Lower abdominal tenderness- Primary Abdominal tenderness, other specified site Other fatigue Palpitations Vomiting without nausea, unspecified vomiting type [facility] Diagnosis Calculus of gallbladder without cholecystitis without obstruction Calculus of gallbladder without mention of cholecystitis or obstruction Elevated liver enzymes Other nonspecific abnormal serum enzyme levels [facility] Diagnosis Calculus of gallbladder without cholecystitis without obstruction- Primary Calculus of gallbladder without mention of cholecystitis or obstruction Elevated liver enzymes Other nonspecific abnormal serum enzyme levels [facility] Diagnosis Chronic diastolic heart failure (HCC)- Primary Chronic diastolic heart failure Examination of participant in clinical trial [facility] Diagnosis 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 History of pulmonary embolism Personal history of pulmonary embolism 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ein of right lower extremity (HCC) [facility] Diagnosis Calculus of gallbladder with acute on chronic cholecystitis with obstruction- Primary [facility]* Diagnosis Groin pain, right- Primary Ecchymosis Other specified circulatory system disorders [facility]* Diagnosis Cholelithiasis with choledocholithiasis- Primary Calculus of gallbladder and bile duct without cholecystitis, without mention of obstruction Pre-op examination Preoperative examination, unspecified [facility] Clinical trial participant- Primary Calculus of gallbladder with cholecystitis without biliary obstruction, unspecified cholecystitis acuity Pre-op examination Preoperative examination, unspecified [facility]* Diagnosis 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 Calculus of gallbladder with cholecystitis without biliary obstruction, unspecified cholecystitis acuity Pre-op examination Preoperative examination, unspecified [facility] Diagnosis Acute abdomen- Primary Abdominal pain, unspecified site Right upper quadrant abdominal pain Abdominal pain, right upper quadrant Infection in abdomen (HCC) Unspecified peritonitis [facility] Diagnosis Retention of urine- Primary Retention of urine, unspecified [facility] Diagnosis S/P laparoscopic cholecystectomy- Primary Other postprocedural status Post-operative state Other postprocedural status 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 Long-term (current) use of anticoagulants [facility]* Diagnosis 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 [facility]* Diagnosis 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 Coronary artery disease due to calcified coronary lesion Cholecystitis Cholecystitis, unspecified Research subject Hypercholesterolemia Pure hypercholesterolemia 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) Other amyloidosis Mixed hyperlipidemia Chronic diastolic heart failure (HCC) Chronic diastolic heart failure Essential hypertension Unspecified essential hypertension Neuropathy Mononeuritis of unspecified site [facility]* Diagnosis Clinical trial participant- Primary [facility] Diagnosis 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) Other amyloidosis Cholecystitis Cholecystitis, unspecified Hypercholesterolemia Pure hypercholesterolemia Amyloidogenic transthyretin amyloidosis (HCC) Other amyloidosis Mixed hyperlipidemia Essential hypertension Unspecified essential hypertension Coronary artery disease due to calcified coronary lesion Neuropathy Mononeuritis of unspecified site Research subject [facility]* Diagnosis Acute pain of right shoulder- Primary [facility] Diagnosis Contrast media allergy- Primary Allergy to radiographic dye [facility]* Diagnosis Examination of participant in clinical trial- Primary [facility] Diagnosis 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 [facility] Diagnosis 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ein of right lower extremity (HCC) [facility]* Diagnosis 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 [facility] Diagnosis Carpal tunnel syndrome, bilateral- Primary Carpal tunnel syndrome Neuropathy Mononeuritis of unspecified site [facility] Diagnosis Carpal tunnel syndrome, bilateral Carpal tunnel syndrome Neuropathy Mononeuritis of unspecified site [facility] Diagnosis Carpal tunnel syndrome, bilateral Carpal tunnel syndrome Neuropathy Mononeuritis of unspecified site [facility]* Diagnosis Examination of participant in clinical trial- Primary [facility]* Diagnosis Acquired hypothyroidism Unspecified hypothyroidism [facility] Diagnosis Neck pain- Primary Cervicalgia Muscle spasm Spasm of muscle Skin lesion Unspecified disorder of skin and subcutaneous tissue [facility]* Diagnosis Cardiac amyloidosis (HCC)- Primary Other amyloidosis [facility] Diagnosis Pain and swelling of left lower leg- Primary 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 History of DVT of lower extremity Personal history of venous thrombosis and embolism History of pulmonary embolism Personal history of pulmonary embolism Chronic anticoagulation Long-term (current) use of anticoagulants Need for vaccination Need for prophylactic vaccination and inoculation against unspecified single disease [facility]* Diagnosis Neuropathy- Primary 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) Other amyloidosis [facility]* Diagnosis Elevated liver enzymes Other nonspecific abnormal serum enzyme levels [facility]* Diagnosis Groin pain, right Ecchymosis Other specified circulatory system disorders [facility] Diagnosis Infection in abdomen (HCC) Unspecified peritonitis Acute abdomen Abdominal pain, unspecified site [facility] Diagnosis 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ein of right lower extremity (HCC) History of pulmonary embolism Personal history of pulmonary embolism [facility]* Diagnosis 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ein of right lower extremity (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 [facility]* Diagnosis Cardiac amyloidosis (HCC)- Primary Other amyloidosis [facility] Diagnosis Examination of participant in clinical trial- Primary Chronic systolic heart failure (HCC) Chronic systolic heart failure documented in this encounter [facility] for referral (narrative)* Outpatient Procedure (Routine) - Authorized Specialty Diagnoses / Procedures Referred By Contac t Referred To Contact [facility] Diagnoses Chronic diastolic heart failure (HCC) Examination of participant in clinical trial Procedures ECHO ECHO TTHRC R-T 2D W/WOM-MODE COMPL SPEC&COLR Rito Cerda MD [address] [facility] [address] [place] [address] [facility] [address] [place] [address] Referral ID Status Reason Start Date Expiration Date Visits Requested Visits Authorized [id number] Authorized Auto-Generat ed Referral 09/15/2021 06/30/2022 1 1 [facility] for referral (narrative)* Outpatient Procedure (Routine) - Authorized Specialty Diagnoses / Procedures Referred By Contac t Referred To Contact [facility] Diagnoses Other fatigue Palpitations Procedures ECG COMPLETE ECG ROUTINE ECG W/LEAST 12 LDS W/I&R Nuvia Grissom APRN.CNP [address] [place] [address] [address] Referral ID Status Reason Start Date Expiration Date Visits Requested Visits Authorized [id number] Authorized Auto-Generat ed Referral 2 01/18/2023 1 1 [facility] for referral (narrative)* Outpatient Procedure (Routine) - Pending Review Specialty Diagnoses / Procedures Referred By Contac t Referred To Contact [facility] Diagnoses Chronic diastolic heart failure (HCC) Examination of participant in clinical trial Procedures ECHO ECHO TTHRC R-T 2D W/WOM-MODE COMPL SPEC&COLR Genia White MD [address] [place] [address] [address] Referral ID Status Reason Start Date Expiration Date Visits Requested Visits Authorized [id number] Pending Review Auto-Generat ed Referral 02/03/2022 02/02/2023 1 1 * Outpatient Procedure (Routine) - Pending Review Specialty Diagnoses / Procedures Referred By Temo amato Referred To Contact [facility] Diagnoses Chronic diastolic heart failure (HCC) Examination of participant in clinical trial Procedures ECG COMPLETE ECG ROUTINE ECG W/LEAST 12 LDS W/I&R Genia Ruby MD [address] [place] [address] [facility] [place] [address] Referral ID Status Reason Start Date Expiration Date Visits Requested Visits Authorized [id number] Pending Review Auto-Generat ed Referral 02/03/2022 02/02/2023 1 1 [facility] for referral (narrative)* Diagnostic Procedure Only (Routine) - Authorized Specialty Diagnoses / Procedures Referred By Temo amato Referred To Contact [facility] Diagnoses Groin pain, right Ecchymosis Procedures US PELVIS LTD US PELVIC NONOBSTETRIC IMAGE [facility] LIMITED/F/U Eugenio Hernandez MD [address] [place] [address] Us [facility] Referral ID Status Reason Start Date Expiration Date Visits Requested Visits Authorized [id number] Authorized Auto-Generat ed Referral 03/22/2023 1 1 [facility] for referral (narrative)* Outpatient Procedure (Routine) - Pending Review Specialty Diagnoses / Procedures Referred By Temo amato Referred To Contact [facility] Diagnoses Wild-type transthyretin-related (ATTR) amyloidosis (HCC) Cholecystitis Research subject Hypercholesterolemia 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) Mixed hyperlipidemia Chronic diastolic heart failure (HCC) Essential hypertension Coronary artery disease due to calcified coronary lesion Neuropathy Procedures ECHO ECHO TTHRC R-T 2D W/WOM-MODE COMPL SPEC&COLR Genia White MD [address] [place] [id number] [place] [address] Referral ID Status Reason Start Date Expiration Date Visits Requested Visits Authorized [id number] Pending Review Auto-Generat ed Referral 05/22/2022 05/22/2023 1 1 [facility] for referral (narrative)* Outpatient Procedure (Urgent) - Closed Specialty Diagnoses / Procedures Referred By Contac t Referred To Contact [facility] Diagnoses Pain and swelling of left lower leg Procedures US LEG VEIN DVT UNL VAS LAB DUP-SCAN XTR VEINS UNILATERAL/LIMITED STUDY Eugenio Hernandez MD [address] [place] [address] [place] [id number] Referral ID Status Reason Start Date Expiration Date V isits Requested Visits Authorized [id number] Closed Auto-Generate d Referral 12/05/2022 12/05/2023 1 1 T [facility] for referral (narrative)* Diagnostic Procedure Only (Routine) - Closed Specialty Diagnoses / Procedures Referred By Contac t Referred To Contact [facility] Diagnoses Elevated liver enzymes Procedures US ABD RT UPPER QUADRANT US ABDOMINAL REAL TIME W/IMAGE LIMITED Nuvia Grissom APRN.CNP [address] [place] [id number] Us Imaging [facility] Referral ID Status Reason Start Date Expiration Date V isits Requested Visits Authorized [id number] Closed Auto-Generate d Referral 01/20/2022 02/19/2023 1 1 T [facility] for referral (narrative)* Diagnostic Procedure Only (Routine) - Closed Specialty Diagnoses / Procedures Referred By Contac t Referred To Contact [facility] Diagnoses Groin pain, right Ecchymosis Procedures US PELVIS LTD US PELVIC NONOBSTETRIC IMAGE [facility] LIMITED/F/U Eugenio Hernandez MD [address] [place] [address] [address] [place] [address] Referral ID Status Reason Start Date Expiration Date V isits Requested Visits Authorized [id number] Closed Auto-Generate d Referral 02/20/2022 03/22/2023 1 1 [facility] for referral (narrative)* Diagnostic Procedure Only (Routine) - Pending Review Specialty Diagnoses / Procedures Referred By Temo amato Referred To Contact [facility] Diagnoses Cardiac amyloidosis (HCC) Procedures NM SPECT/CT CARDIAC AMYLOID RP LOCLZJ KAY SPECT W/CT 1 AREA 1 DAY IMAGING Evi Zamora MD [address] [place] [address] [facility] [address] [place] [address] Referral ID Status Reason Start Date Expiration Date Visits Requested Visits Authorized [id number] Pending Review Auto-Generat ed Referral 3 03/10/2024 1 1 [facility] for referral (narrative)* Outpatient Procedure (Routine) - Authorized Specialty Diagnoses / Procedures Referred By Temo amato Referred To Contact [facility] Diagnoses Examination of participant in clinical trial Chronic systolic heart failure (HCC) Procedures ECG COMPLETE ECG ROUTINE ECG W/LEAST 12 LDS W/I&R Terrance Pritchard MD [address] [facility] [place] [address] [place] [address] [employer] [facility] [place] [address] Referral ID Status Reason Start Date Expiration Date Visits Requested Visits Authorized [id number] Authorized Auto-Generat ed Referral 3 03/13/2024 1 1 [facility] Summary Purpose Family History No Family History Records FoundNo Family History Records Found Advance Directives No Advanced Directives Records FoundDocuments on File Type Date Recorded 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 Advance Directive(s) Advance Directive(s) 11/11/2019 1:39 PM Advance Directive(s) 04/30/2019 9:14 AM Advance Directive(s) 03/31/2019 12:07 PM Advance Directive(s) 06/10/2015 10:42 AM Advance Directive(s) 06/07/2015 12:46 PM Documents on File Type Date Recorded 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 Advance Directive(s) Advance Directive(s) 11/11/2019 1:39 PM Advance Directive(s) 04/30/2019 9:14 AM Advance Directive(s) 03/31/2019 12:07 PM Advance Directive(s) 06/10/2015 10:42 AM Advance Directive(s) 06/07/2015 12:46 PM Reason for Referral Specialty Diagnoses / Procedures Referred By Temo amato Referred To Contact Neurology Diagnoses 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) Chronic diastolic heart failure (HCC) Mixed hyperlipidemia Essential hypertension Procedures CONSULT TO NEUROLOGY OFFICE/OUTPATIENT [facility] 60-74 MINUTES Genia Ruby MD [address] [place] [address] Referral ID Status Reason Start Date Expiration Date Visits Requested Visits Authorized [id number] Authorized PCP Requested Referral 06/22/2021 06/22/2022 1 1 Specialty Diagnoses / Procedures Referred By Temo amato Referred To Contact General Surgery Diagnoses Calculus of gallbladder without cholecystitis without obstruction Elevated liver enzymes Procedures CONSULT TO GENERAL SURGERY OFFICE/OUTPATIENT [facility] 60-74 MINUTES Brayan Ahn MD [address] [place] [address] Franklin Gaona MD [address] [place] [address] Referral ID Status Reason Start Date Expiration Date Visits Requested Visits Authorized [id number] Authorized PCP Requested Referral 01/31/2022 01/31/2023 1 1 Specialty Diagnoses / Procedures Referred By Contac t Referred To Contact General Surgery Diagnoses Calculus of gallbladder without cholecystitis without obstruction Elevated liver enzymes Procedures CONSULT TO GENERAL SURGERY OFFICE/OUTPATIENT [facility] 60-74 MINUTES Nuvia Grissom APRN.SHEEP CLIPPER [address] [place] [address] Referral ID Status Reason Start Date Expiration Date V isits Requested Visits Authorized [id number] Closed PCP Requested Referral 01/30/2022 01/30/2023 1 1 Specialty Diagnoses / Procedures Referred By Contac t Referred To Contact Vascular Medicine Diagnoses History of pulmonary embolism Procedures CONSULT TO VASCULAR MEDICINE OFFICE/OUTPATIENT [facility] 60-74 MINUTES Omer Narvaez, DO [address] [place] [address] Referral ID Status Reason Start Date Expiration Date Visits Requested Visits Authorized [id number] Authorized PCP Requested Referral 02/06/2022 02/06/2023 1 1 Specialty Diagnoses / Procedures Referred By Contac t Referred To Contact Diagnoses Cholelithiasis with choledocholithiasis Pre-op examination Procedures IN PERSON CONSULT TO PACC Aneesh Kaplan MD [address] [place] [address] Referral ID Status Reason Start Date Expiration Date Visits Requested Visits Authorized [id number] Ref Not Required PCP Requested Referral 05/22/2022 1 1 Specialty Diagnoses / Procedures Referred By Contac t Referred To Contact CT IMAGING Diagnoses Infection in abdomen (HCC) Procedures CT ABD/PEL W IVCON CT ABD & PELVIS W/CONTRAST Plescadi, SARA Martin [address] [place] [address] Ct Imaging Referral ID Status Reason Start Date Expiration Date V isits Requested Visits Authorized [id number] Closed Auto-Generate d Referral 04/07/2022 05/07/2023 1 1 Specialty Diagnoses / Procedures Referred By Contac t Referred To Contact CT IMAGING Diagnoses Acute abdomen Procedures CT ABD/PEL WO IVCON CT ABD & PELVIS W/O CONTRAST Plescadi, SARA Martin [address] [place] [address] Ct Imaging Referral ID Status Reason Start Date Expiration Date V isits Requested Visits Authorized [id number] Closed Auto-Generate d Referral 04/07/2022 05/07/2023 1 1 Specialty Diagnoses / Procedures Referred By Contac t Referred To Contact Diagnoses Post-phlebitic syndrome Elenita Colin APRN.SHEEP CLIPPER [address] [place] [address] Referral ID Status Reason Start Date Expiration Date Visits Re quested Visits Authorized [id number] Closed 1 1 Specialty Diagnoses / Procedures Referred By Contac t Referred To Contact Diagnoses Skin lesion Procedures CONSULT TO DERMATOLOGY Nuvia Grissom APRN.SHEEP CLIPPER [address] [place] [address] Referral ID Status Reason Start Date Expiration Date V isits Requested Visits Authorized [id number] Closed PCP Requested Referral 11/22/2022 11/22/2023 1 1 Specialty Diagnoses / Procedures Referred By Contac t Referred To Contact Procedures CARDIOVASCULAR MEDICINE OP FOLLOW UP APPT ORDER Shira Seymour MD [address] [place] [address] Referral ID Status Reason Start Date Expiration Date Visits Requested Visits Authorized [id number] Ref Not Required PCP Requested Referral 3 01/29/2024 1 1 Specialty Diagnoses / Procedures Referred By Contac t Referred To Contact Neurology Diagnoses Neuropathy Procedures CONSULT TO NEUROLOGY OFFICE/OUTPATIENT [facility] 60-74 MINUTES Shira Seymour MD [address] [place] [address] Gold Serra MD [address] [place] [address] Referral ID Status Reason Start Date Expiration Date Visits Requested Visits Authorized [id number] Authorized PCP Requested Referral 3 01/29/2024 1 1 Specialty Diagnoses / Procedures Referred By Contac t Referred To Contact CT IMAGING Diagnoses Acute abdomen Procedures CT ABD/PEL WO IVCON CT ABD & PELVIS W/O CONTRAST Mario Fermin PA-C [address] [place] [address] [place] [address] Health Concerns Infection Onset Date Last Indicated Resolved Time COVID-19 Rule-Out 03/29/2022 03/29/2022 03/29/2022 5:11 PM EST Additional Source Comments INFORMATION SOURCE (unrecogn ized section and content) DATE CREATED AUTHOR AUTHOR'S ORGANIZ ATION 04/19/2023 [facility] Source Comments (unrecognize d section and content) In the event this informatio n is protected by the Federal Confidentiality of Alcohol and Drug Abuse Patient Records regulations: The Federal rules restrict any use of the information to criminally investigate or prosecute any alcohol or drug abuse patient.[facility] the event this information is protected by the Federal Confidentiality of Alcohol and Drug Abuse Patient Records regulations: The Federal rules restrict any use of the information to criminally investigate or prosecute any alcohol or drug abuse patient.[facility] Hospital[facility] the event this information is protected by the Federal Confidentiality of Alcohol and Drug Abuse Patient Records regulations: The Federal rules restrict any use of the information to criminally investigate or prosecute any alcohol or drug abuse patient.[facility] Hospital[facility] the event this information is protected by the Federal Confidentiality of Alcohol and Drug Abuse Patient Records regulations: The Federal rules restrict any use of the information to criminally investigate or prosecute any alcohol or drug abuse patient.[facility] Hospital[facility] the event this information is protected by the Federal Confidentiality of Alcohol and Drug Abuse Patient Records regulations: The Federal rules restrict any use of the information to criminally investigate or prosecute any alcohol or drug abuse patient.[facility] the event this information is protected by the Federal Confidentiality of Alcohol and Drug Abuse Patient Records regulations: The Federal rules restrict any use of the information to criminally investigate or prosecute any alcohol or drug abuse patient.[facility] Hospital[facility] the event this information is protected by the Federal Confidentiality of Alcohol and Drug Abuse Patient Records regulations: The Federal rules restrict any use of the information to criminally investigate or prosecute any alcohol or drug abuse patient.[facility] Hospital[facility] the event this information is protected by the Federal Confidentiality of Alcohol and Drug Abuse Patient Records regulations: The Federal rules restrict any use of the information to criminally investigate or prosecute any alcohol or drug abuse patient.[facility] Hospital[facility] the event this information is protected by the Federal Confidentiality of Alcohol and Drug Abuse Patient Records regulations: The Federal rules restrict any use of the information to criminally investigate or prosecute any alcohol or drug abuse patient.[facility] the event this information is protected by the Federal Confidentiality of Alcohol and Drug Abuse Patient Records regulations: The Federal rules restrict any use of the information to criminally investigate or prosecute any alcohol or drug abuse patient.[facility] Hospital[facility] the event this information is protected by the Federal Confidentiality of Alcohol and Drug Abuse Patient Records regulations: The Federal rules restrict any use of the information to criminally investigate or prosecute any alcohol or drug abuse patient.[facility] Hospital[facility] the event this information is protected by the Federal Confidentiality of Alcohol and Drug Abuse Patient Records regulations: The Federal rules restrict any use of the information to criminally investigate or prosecute any alcohol or drug abuse patient.[facility] Hospital[facility] the event this information is protected by the Federal Confidentiality of Alcohol and Drug Abuse Patient Records regulations: The Federal rules restrict any use of the information to criminally investigate or prosecute any alcohol or drug abuse patient.[facility] Hospital[facility] the event this information is protected by the Federal Confidentiality of Alcohol and Drug Abuse Patient Records regulations: The Federal rules restrict any use of the information to criminally investigate or prosecute any alcohol or drug abuse patient.[facility] Hospital[facility] the event this information is protected by the Federal Confidentiality of Alcohol and Drug Abuse Patient Records regulations: The Federal rules restrict any use of the information to criminally investigate or prosecute any alcohol or drug abuse patient.[facility] HospitalIn the event this information is protected by the Federal Confidentiality of Alcohol and Drug Abuse Patient Records regulations: The Federal rules restrict any use of the information to criminally investigate or prosecute any alcohol or drug abuse patient.[facility] HospitalIn the event this information is protected by the Federal Confidentiality of Alcohol and Drug Abuse Patient Records regulations: The Federal rules restrict any use of the information to criminally investigate or prosecute any alcohol or drug abuse patient.[facility] HospitalIn the event this information is protected by the Federal Confidentiality of Alcohol and Drug Abuse Patient Records regulations: The Federal rules restrict any use of the information to criminally investigate or prosecute any alcohol or drug abuse patient.[facility] HospitalIn the event this information is protected by the Federal Confidentiality of Alcohol and Drug Abuse Patient Records regulations: The Federal rules restrict any use of the information to criminally investigate or prosecute any alcohol or drug abuse patient.[facility] HospitalIn the event this information is protected by the Federal Confidentiality of Alcohol and Drug Abuse Patient Records regulations: The Federal rules restrict any use of the information to criminally investigate or prosecute any alcohol or drug abuse patient.[facility] HospitalIn the event this information is protected by the Federal Confidentiality of Alcohol and Drug Abuse Patient Records regulations: The Federal rules restrict any use of the information to criminally investigate or prosecute any alcohol or drug abuse patient.[facility] HospitalIn the event this information is protected by the Federal Confidentiality of Alcohol and Drug Abuse Patient Records regulations: The Federal rules restrict any use of the information to criminally investigate or prosecute any alcohol or drug abuse patient.[facility] HospitalIn the event this information is protected by the Federal Confidentiality of Alcohol and Drug Abuse Patient Records regulations: The Federal rules restrict any use of the information to criminally investigate or prosecute any alcohol or drug abuse patient.[facility] HospitalIn the event this information is protected by the Federal Confidentiality of Alcohol and Drug Abuse Patient Records regulations: The Federal rules restrict any use of the information to criminally investigate or prosecute any alcohol or drug abuse patient.[facility] HospitalIn the event this information is protected by the Federal Confidentiality of Alcohol and Drug Abuse Patient Records regulations: The Federal rules restrict any use of the information to criminally investigate or prosecute any alcohol or drug abuse patient.[facility] HospitalIn the event this information is protected by the Federal Confidentiality of Alcohol and Drug Abuse Patient Records regulations: The Federal rules restrict any use of the information to criminally investigate or prosecute any alcohol or drug abuse patient.[facility] HospitalIn the event this information is protected by the Federal Confidentiality of Alcohol and Drug Abuse Patient Records regulations: The Federal rules restrict any use of the information to criminally investigate or prosecute any alcohol or drug abuse patient.[facility] HospitalIn the event this information is protected by the Federal Confidentiality of Alcohol and Drug Abuse Patient Records regulations: The Federal rules restrict any use of the information to criminally investigate or prosecute any alcohol or drug abuse patient.[facility] HospitalIn the event this information is protected by the Federal Confidentiality of Alcohol and Drug Abuse Patient Records regulations: The Federal rules restrict any use of the information to criminally investigate or prosecute any alcohol or drug abuse patient.[facility] HospitalIn the event this information is protected by the Federal Confidentiality of Alcohol and Drug Abuse Patient Records regulations: The Federal rules restrict any use of the information to criminally investigate or prosecute any alcohol or drug abuse patient.[facility] HospitalIn the event this information is protected by the Federal Confidentiality of Alcohol and Drug Abuse Patient Records regulations: The Federal rules restrict any use of the information to criminally investigate or prosecute any alcohol or drug abuse patient.[facility] HospitalIn the event this information is protected by the Federal Confidentiality of Alcohol and Drug Abuse Patient Records regulations: The Federal rules restrict any use of the information to criminally investigate or prosecute any alcohol or drug abuse patient.[facility] HospitalIn the event this information is protected by the Federal Confidentiality of Alcohol and Drug Abuse Patient Records regulations: The Federal rules restrict any use of the information to criminally investigate or prosecute any alcohol or drug abuse patient.[facility] HospitalIn the event this information is protected by the Federal Confidentiality of Alcohol and Drug Abuse Patient Records regulations: The Federal rules restrict any use of the information to criminally investigate or prosecute any alcohol or drug abuse patient.[facility] HospitalIn the event this information is protected by the Federal Confidentiality of Alcohol and Drug Abuse Patient Records regulations: The Federal rules restrict any use of the information to criminally investigate or prosecute any alcohol or drug abuse patient.[facility] HospitalIn the event this information is protected by the Federal Confidentiality of Alcohol and Drug Abuse Patient Records regulations: The Federal rules restrict any use of the information to criminally investigate or prosecute any alcohol or drug abuse patient.[facility] HospitalIn the event this information is protected by the Federal Confidentiality of Alcohol and Drug Abuse Patient Records regulations: The Federal rules restrict any use of the information to criminally investigate or prosecute any alcohol or drug abuse patient.[facility] HospitalIn the event this information is protected by the Federal Confidentiality of Alcohol and Drug Abuse Patient Records regulations: The Federal rules restrict any use of the information to criminally investigate or prosecute any alcohol or drug abuse patient.[facility] HospitalIn the event this information is protected by the Federal Confidentiality of Alcohol and Drug Abuse Patient Records regulations: The Federal rules restrict any use of the information to criminally investigate or prosecute any alcohol or drug abuse patient.[facility] HospitalIn the event this information is protected by the Federal Confidentiality of Alcohol and Drug Abuse Patient Records regulations: The Federal rules restrict any use of the information to criminally investigate or prosecute any alcohol or drug abuse patient.[facility] HospitalIn the event this information is protected by the Federal Confidentiality of Alcohol and Drug Abuse Patient Records regulations: The Federal rules restrict any use of the information to criminally investigate or prosecute any alcohol or drug abuse patient.[facility] HospitalIn the event this information is protected by the Federal Confidentiality of Alcohol and Drug Abuse Patient Records regulations: The Federal rules restrict any use of the information to criminally investigate or prosecute any alcohol or drug abuse patient.[facility] HospitalIn the event this information is protected by the Federal Confidentiality of Alcohol and Drug Abuse Patient Records regulations: The Federal rules restrict any use of the information to criminally investigate or prosecute any alcohol or drug abuse patient.[facility] HospitalIn the event this information is protected by the Federal Confidentiality of Alcohol and Drug Abuse Patient Records regulations: The Federal rules restrict any use of the information to criminally investigate or prosecute any alcohol or drug abuse patient.[facility] HospitalIn the event this information is protected by the Federal Confidentiality of Alcohol and Drug Abuse Patient Records regulations: The Federal rules restrict any use of the information to criminally investigate or prosecute any alcohol or drug abuse patient.[facility] HospitalIn the event this information is protected by the Federal Confidentiality of Alcohol and Drug Abuse Patient Records regulations: The Federal rules restrict any use of the information to criminally investigate or prosecute any alcohol or drug abuse patient.[facility] HospitalIn the event this information is protected by the Federal Confidentiality of Alcohol and Drug Abuse Patient Records regulations: The Federal rules restrict any use of the information to criminally investigate or prosecute any alcohol or drug abuse patient.[facility] HospitalIn the event this information is protected by the Federal Confidentiality of Alcohol and Drug Abuse Patient Records regulations: The Federal rules restrict any use of the information to criminally investigate or prosecute any alcohol or drug abuse patient.[facility] HospitalIn the event this information is protected by the Federal Confidentiality of Alcohol and Drug Abuse Patient Records regulations: The Federal rules restrict any use of the information to criminally investigate or prosecute any alcohol or drug abuse patient.[facility] HospitalIn the event this information is protected by the Federal Confidentiality of Alcohol and Drug Abuse Patient Records regulations: The Federal rules restrict any use of the information to criminally investigate or prosecute any alcohol or drug abuse patient.[facility] HospitalIn the event this information is protected by the Federal Confidentiality of Alcohol and Drug Abuse Patient Records regulations: The Federal rules restrict any use of the information to criminally investigate or prosecute any alcohol or drug abuse patient.[facility] HospitalIn the event this information is protected by the Federal Confidentiality of Alcohol and Drug Abuse Patient Records regulations: The Federal rules restrict any use of the information to criminally investigate or prosecute any alcohol or drug abuse patient.[facility] HospitalIn the event this information is protected by the Federal Confidentiality of Alcohol and Drug Abuse Patient Records regulations: The Federal rules restrict any use of the information to criminally investigate or prosecute any alcohol or drug abuse patient.[facility] HospitalIn the event this information is protected by the Federal Confidentiality of Alcohol and Drug Abuse Patient Records regulations: The Federal rules restrict any use of the information to criminally investigate or prosecute any alcohol or drug abuse patient.[facility] HospitalIn the event this information is protected by the Federal Confidentiality of Alcohol and Drug Abuse Patient Records regulations: The Federal rules restrict any use of the information to criminally investigate or prosecute any alcohol or drug abuse patient.[facility] HospitalIn the event this information is protected by the Federal Confidentiality of Alcohol and Drug Abuse Patient Records regulations: The Federal rules restrict any use of the information to criminally investigate or prosecute any alcohol or drug abuse patient.[facility] HospitalIn the event this information is protected by the Federal Confidentiality of Alcohol and Drug Abuse Patient Records regulations: The Federal rules restrict any use of the information to criminally investigate or prosecute any alcohol or drug abuse patient.[facility] HospitalIn the event this information is protected by the Federal Confidentiality of Alcohol and Drug Abuse Patient Records regulations: The Federal rules restrict any use of the information to criminally investigate or prosecute any alcohol or drug abuse patient.[facility] HospitalIn the event this information is protected by the Federal Confidentiality of Alcohol and Drug Abuse Patient Records regulations: The Federal rules restrict any use of the information to criminally investigate or prosecute any alcohol or drug abuse patient.[facility] HospitalIn the event this information is protected by the Federal Confidentiality of Alcohol and Drug Abuse Patient Records regulations: The Federal rules restrict any use of the information to criminally investigate or prosecute any alcohol or drug abuse patient.[facility] HospitalIn the event this information is protected by the Federal Confidentiality of Alcohol and Drug Abuse Patient Records regulations: The Federal rules restrict any use of the information to criminally investigate or prosecute any alcohol or drug abuse patient.[facility] HospitalIn the event this information is protected by the Federal Confidentiality of Alcohol and Drug Abuse Patient Records regulations: The Federal rules restrict any use of the information to criminally investigate or prosecute any alcohol or drug abuse patient.[facility] HospitalIn the event this information is protected by the Federal Confidentiality of Alcohol and Drug Abuse Patient Records regulations: The Federal rules restrict any use of the information to criminally investigate or prosecute any alcohol or drug abuse patient.[facility] HospitalIn the event this information is protected by the Federal Confidentiality of Alcohol and Drug Abuse Patient Records regulations: The Federal rules restrict any use of the information to criminally investigate or prosecute any alcohol or drug abuse patient.[facility] HospitalIn the event this information is protected by the Federal Confidentiality of Alcohol and Drug Abuse Patient Records regulations: The Federal rules restrict any use of the information to criminally investigate or prosecute any alcohol or drug abuse patient.[facility] HospitalIn the event this information is protected by the Federal Confidentiality of Alcohol and Drug Abuse Patient Records regulations: The Federal rules restrict any use of the information to criminally investigate or prosecute any alcohol or drug abuse patient.[facility] HospitalIn the event this information is protected by the Federal Confidentiality of Alcohol and Drug Abuse Patient Records regulations: The Federal rules restrict any use of the information to criminally investigate or prosecute any alcohol or drug abuse patient.[facility] HospitalIn the event this information is protected by the Federal Confidentiality of Alcohol and Drug Abuse Patient Records regulations: The Federal rules restrict any use of the information to criminally investigate or prosecute any alcohol or drug abuse patient.[facility] HospitalIn the event this information is protected by the Federal Confidentiality of Alcohol and Drug Abuse Patient Records regulations: The Federal rules restrict any use of the information to criminally investigate or prosecute any alcohol or drug abuse patient.[facility] HospitalIn the event this information is protected by the Federal Confidentiality of Alcohol and Drug Abuse Patient Records regulations: The Federal rules restrict any use of the information to criminally investigate or prosecute any alcohol or drug abuse patient.[facility] HospitalIn the event this information is protected by the Federal Confidentiality of Alcohol and Drug Abuse Patient Records regulations: The Federal rules restrict any use of the information to criminally investigate or prosecute any alcohol or drug abuse patient.[facility] HospitalIn the event this information is protected by the Federal Confidentiality of Alcohol and Drug Abuse Patient Records regulations: The Federal rules restrict any use of the information to criminally investigate or prosecute any alcohol or drug abuse patient.[facility] HospitalIn the event this information is protected by the Federal Confidentiality of Alcohol and Drug Abuse Patient Records regulations: The Federal rules restrict any use of the information to criminally investigate or prosecute any alcohol or drug abuse patient.[facility] HospitalIn the event this information is protected by the Federal Confidentiality of Alcohol and Drug Abuse Patient Records regulations: The Federal rules restrict any use of the information to criminally investigate or prosecute any alcohol or drug abuse patient.[facility] HospitalIn the event this information is protected by the Federal Confidentiality of Alcohol and Drug Abuse Patient Records regulations: The Federal rules restrict any use of the information to criminally investigate or prosecute any alcohol or drug abuse patient.[facility] HospitalIn the event this information is protected by the Federal Confidentiality of Alcohol and Drug Abuse Patient Records regulations: The Federal rules restrict any use of the information to criminally investigate or prosecute any alcohol or drug abuse patient.[facility] HospitalIn the event this information is protected by the Federal Confidentiality of Alcohol and Drug Abuse Patient Records regulations: The Federal rules restrict any use of the information to criminally investigate or prosecute any alcohol or drug abuse patient.[facility] HospitalIn the event this information is protected by the Federal Confidentiality of Alcohol and Drug Abuse Patient Records regulations: The Federal rules restrict any use of the information to criminally investigate or prosecute any alcohol or drug abuse patient.[facility] HospitalIn the event this information is protected by the Federal Confidentiality of Alcohol and Drug Abuse Patient Records regulations: The Federal rules restrict any use of the information to criminally investigate or prosecute any alcohol or drug abuse patient.[facility] HospitalIn the event this information is protected by the Federal Confidentiality of Alcohol and Drug Abuse Patient Records regulations: The Federal rules restrict any use of the information to criminally investigate or prosecute any alcohol or drug abuse patient.[facility] HospitalIn the event this information is protected by the Federal Confidentiality of Alcohol and Drug Abuse Patient Records regulations: The Federal rules restrict any use of the information to criminally investigate or prosecute any alcohol or drug abuse patient.[facility] HospitalIn the event this information is protected by the Federal Confidentiality of Alcohol and Drug Abuse Patient Records regulations: The Federal rules restrict any use of the information to criminally investigate or prosecute any alcohol or drug abuse patient.[facility] HospitalIn the event this information is protected by the Federal Confidentiality of Alcohol and Drug Abuse Patient Records regulations: The Federal rules restrict any use of the information to criminally investigate or prosecute any alcohol or drug abuse patient.[facility] HospitalIn the event this information is protected by the Federal Confidentiality of Alcohol and Drug Abuse Patient Records regulations: The Federal rules restrict any use of the information to criminally investigate or prosecute any alcohol or drug abuse patient.[facility] HospitalIn the event this information is protected by the Federal Confidentiality of Alcohol and Drug Abuse Patient Records regulations: The Federal rules restrict any use of the information to criminally investigate or prosecute any alcohol or drug abuse patient.[facility] HospitalIn the event this information is protected by the Federal Confidentiality of Alcohol and Drug Abuse Patient Records regulations: The Federal rules restrict any use of the information to criminally investigate or prosecute any alcohol or drug abuse patient.[facility] HospitalIn the event this information is protected by the Federal Confidentiality of Alcohol and Drug Abuse Patient Records regulations: The Federal rules restrict any use of the information to criminally investigate or prosecute any alcohol or drug abuse patient.[facility] HospitalIn the event this information is protected by the Federal Confidentiality of Alcohol and Drug Abuse Patient Records regulations: The Federal rules restrict any use of the information to criminally investigate or prosecute any alcohol or drug abuse patient.[facility] HospitalIn the event this information is protected by the Federal Confidentiality of Alcohol and Drug Abuse Patient Records regulations: The Federal rules restrict any use of the information to criminally investigate or prosecute any alcohol or drug abuse patient.[facility] HospitalIn the event this information is protected by the Federal Confidentiality of Alcohol and Drug Abuse Patient Records regulations: The Federal rules restrict any use of the information to criminally investigate or prosecute any alcohol or drug abuse patient.[facility] HospitalIn the event this information is protected by the Federal Confidentiality of Alcohol and Drug Abuse Patient Records regulations: The Federal rules restrict any use of the information to criminally investigate or prosecute any alcohol or drug abuse patient.[facility] HospitalIn the event this information is protected by the Federal Confidentiality of Alcohol and Drug Abuse Patient Records regulations: The Federal rules restrict any use of the information to criminally investigate or prosecute any alcohol or drug abuse patient.[facility] HospitalIn the event this information is protected by the Federal Confidentiality of Alcohol and Drug Abuse Patient Records regulations: The Federal rules restrict any use of the information to criminally investigate or prosecute any alcohol or drug abuse patient.[facility] HospitalIn the event this information is protected by the Federal Confidentiality of Alcohol and Drug Abuse Patient Records regulations: The Federal rules restrict any use of the information to criminally investigate or prosecute any alcohol or drug abuse patient.[facility] HospitalIn the event this information is protected by the Federal Confidentiality of Alcohol and Drug Abuse Patient Records regulations: The Federal rules restrict any use of the information to criminally investigate or prosecute any alcohol or drug abuse patient.[facility] HospitalIn the event this information is protected by the Federal Confidentiality of Alcohol and Drug Abuse Patient Records regulations: The Federal rules restrict any use of the information to criminally investigate or prosecute any alcohol or drug abuse patient.[facility] HospitalIn the event this information is protected by the Federal Confidentiality of Alcohol and Drug Abuse Patient Records regulations: The Federal rules restrict any use of the information to criminally investigate or prosecute any alcohol or drug abuse patient.[facility] HospitalIn the event this information is protected by the Federal Confidentiality of Alcohol and Drug Abuse Patient Records regulations: The Federal rules restrict any use of the information to criminally investigate or prosecute any alcohol or drug abuse patient.[facility] HospitalIn the event this information is protected by the Federal Confidentiality of Alcohol and Drug Abuse Patient Records regulations: The Federal rules restrict any use of the information to criminally investigate or prosecute any alcohol or drug abuse patient.[facility] HospitalIn the event this information is protected by the Federal Confidentiality of Alcohol and Drug Abuse Patient Records regulations: The Federal rules restrict any use of the information to criminally investigate or prosecute any alcohol or drug abuse patient.[facility] HospitalIn the event this information is protected by the Federal Confidentiality of Alcohol and Drug Abuse Patient Records regulations: The Federal rules restrict any use of the information to criminally investigate or prosecute any alcohol or drug abuse patient.[facility] HospitalIn the event this information is protected by the Federal Confidentiality of Alcohol and Drug Abuse Patient Records regulations: The Federal rules restrict any use of the information to criminally investigate or prosecute any alcohol or drug abuse patient.[facility] HospitalIn the event this information is protected by the Federal Confidentiality of Alcohol and Drug Abuse Patient Records regulations: The Federal rules restrict any use of the information to criminally investigate or prosecute any alcohol or drug abuse patient.[facility] HospitalIn the event this information is protected by the Federal Confidentiality of Alcohol and Drug Abuse Patient Records regulations: The Federal rules restrict any use of the information to criminally investigate or prosecute any alcohol or drug abuse patient.[facility] HospitalIn the event this information is protected by the Federal Confidentiality of Alcohol and Drug Abuse Patient Records regulations: The Federal rules restrict any use of the information to criminally investigate or prosecute any alcohol or drug abuse patient.[facility] HospitalIn the event this information is protected by the Federal Confidentiality of Alcohol and Drug Abuse Patient Records regulations: The Federal rules restrict any use of the information to criminally investigate or prosecute any alcohol or drug abuse patient.[facility] HospitalIn the event this information is protected by the Federal Confidentiality of Alcohol and Drug Abuse Patient Records regulations: The Federal rules restrict any use of the information to criminally investigate or prosecute any alcohol or drug abuse patient.[facility] HospitalIn the event this information is protected by the Federal Confidentiality of Alcohol and Drug Abuse Patient Records regulations: The Federal rules restrict any use of the information to criminally investigate or prosecute any alcohol or drug abuse patient.[facility] HospitalIn the event this information is protected by the Federal Confidentiality of Alcohol and Drug Abuse Patient Records regulations: The Federal rules restrict any use of the information to criminally investigate or prosecute any alcohol or drug abuse patient.[facility] HospitalIn the event this information is protected by the Federal Confidentiality of Alcohol and Drug Abuse Patient Records regulations: The Federal rules restrict any use of the information to criminally investigate or prosecute any alcohol or drug abuse patient.[facility] HospitalIn the event this information is protected by the Federal Confidentiality of Alcohol and Drug Abuse Patient Records regulations: The Federal rules restrict any use of the information to criminally investigate or prosecute any alcohol or drug abuse patient.[facility] HospitalIn the event this information is protected by the Federal Confidentiality of Alcohol and Drug Abuse Patient Records regulations: The Federal rules restrict any use of the information to criminally investigate or prosecute any alcohol or drug abuse patient.[facility] HospitalIn the event this information is protected by the Federal Confidentiality of Alcohol and Drug Abuse Patient Records regulations: The Federal rules restrict any use of the information to criminally investigate or prosecute any alcohol or drug abuse patient.[facility] HospitalIn the event this information is protected by the Federal Confidentiality of Alcohol and Drug Abuse Patient Records regulations: The Federal rules restrict any use of the information to criminally investigate or prosecute any alcohol or drug abuse patient.[facility] Reason for Visit (unrecogniz ed section and content) Specialty Diagnoses / Procedures Referred By Contac t Referred To Contact CT IMAGING Diagnoses Infection in abdomen (HCC) Procedures CT ABD/PEL W IVCON CT ABD & PELVIS W/CONTRAST Zander, SARA Martin [address] [place] [address] [place] [address] Referral ID Status Reason Start Date Expiration Date V isits Requested Visits Authorized [id number] Closed Auto-Generate d Referral 04/07/2022 05/07/2023 1 1 Reason Comments Social Work Services Reason Onset Date Comments Community Monitoring Outreach 06/30/2021 [facility] D CDM Telephonic Outreach Reason Comments Research F/U Reason Onset Date Comments Community Monitoring Outreach 07/14/2021 [facility] F/ CKD Telephonic CDM Outreach Reason Comments Heart Failure Reason Onset Date Comments Community Monitoring Outreach 07/29/2021 [facility] D CDM Outreach Reason Comments Established Patient Reason Onset Date Comments Community Monitoring Outreach 08/15/2021 [facility] F / CKD CDM Outreach Reason Onset Date Comments Community Monitoring Outreach 08/17/2021 [facility] F / CKD Telephonic CDM Outreach Reason Onset Date Comments Community Monitoring Outreach 09/01/2021 [facility] F / CKD Telephonic CDM Outreach Reason Comments Appointment Reason Comments Recheck 3 month, lab review Reason Comments Chest Pain Reason Onset Date Comments Community Monitoring Outreach 09/16/2021 [facility] F / CKD Telephonic CDM Outreach Reason Comments Pain (Shoulder Pain) R shoulder x this A M, no known injury or cause Reason Onset Date Comments Community Monitoring Outreach 10/12/2021 [facility] F/ CKD Telephonic CDM Outreach Reason Onset Date Comments Community Monitoring Outreach 10/27/2021 [facility] D Telephonic CDM Outreach Reason Onset Date Comments Community Monitoring Outreach 11/11/2021 Reason Comments Follow Up Reason Comments Orders Reason Onset Date Comments Refill Request 12/23/2021 Reason Onset Date Comments Recheck 3 month follow u p Immunizations 01/02/2022 Flu vaccination Reason Comments Lovenox Reason Onset Date Comments Community Monitoring Outreach 01/12/2022 Reason Comments Vomiting Vomiting Sunday even ing, feeling weak Reason Comments Vomiting Fatigue Reason Onset Date Comments Community Monitoring Outreach 01/13/2022 Reason Onset Date Comments Community Monitoring Outreach 01/24/2022 Reason Comments Consult Abd pain, vomiting, fatigue Specialty Diagnoses / Procedures Referred By Contac t Referred To Contact General Surgery Diagnoses Calculus of gallbladder without cholecystitis without obstruction Elevated liver enzymes Procedures CONSULT TO GENERAL SURGERY OFFICE/OUTPATIENT NEW HIGH MDM 60-74 MINUTES Older, QUINTEN Pedersen.SHEEP CLIPPER [address] [place] [address] Referral ID Status Reason Start Date Expiration Date V isits Requested Visits Authorized [id number] Closed PCP Requested Referral 01/30/2022 01/30/2023 1 1 Reason Comments Results Reason Comments Established Patient Reason Comments Prescription for med assist reenrollment Reason Onset Date Comments Community Monioring Outreach 02/08/2022 Reason Comments Rx Refills Tafamidis Reason Comments Abdominal Pain Reason Comments Abdominal Pain Reason Comments 03/29/2022 Reason Comments Medication Problem PAP forms faxed to [email or web address] with prescription. Reason Onset Date Comments Community Monitoring Outreach 03/14/2022 Reason Comments Results follow-up call Reason Comments Patient Update Reason Comments Right Lower Abdomen Pain Reason Comments Forms VyndaLink Reason Onset Date Comments Transition Of Care 04/04/2022 TCM [facility] D/C, 03/31, INITIAL OUTREACH Reason Comments Patient Question Reason Comments Post Op Reason Comments Patient Update Pain level 10 since discharge Reason Comments Consult Reason Onset Date Comments Community Monitoring Outreach 04/12/2022 Reason Comments Post Op Reason Onset Date Comments Community Monitoring Outreach 05/15/2022 Reason Comments F/U HTN 3 Month Reason Comments Medication Problem Called Dr. Ruby's o ffice and spoke to Vanna re: need for premed for dye allergy for patient coming for cath tomorrow. Reason Comments Education Of Patient/family Reason Onset Date Comments Community Monitoring Outreach 06/21/2022 Reason Comments Pain (Shoulder Pain) R shoulder pain, ch ronic, worse x2 days Reason Onset Date Comments Community Monitoring Outreach 07/05/2022 Reason Comments Orders Dye Prep Reason Onset Date Comments Community Monitoring Outreach 07/28/2022 Reason Onset Date Comments Community Monitoring Outreach 09/25/2022 Reason Onset Date Comments Refill Request 10/04/2022 Reason Comments Musculoskeletal Problem Reason Comments Hand Pain Reason Comments Medication Problem Reason Onset Date Comments Refill Request 10/30/2022 Reason Onset Date Comments Community Monitoring Outreach 10/30/2022 Reason Comments Counseling Reason Comments Medication Question Reason Comments Pain, Neck R sided Neck and denys ulder pain Reason Comments Left leg pain Reason Onset Date Comments Community Monitoring Outreach 12/05/2022 Reason Comments Results Reason Comments Medicare Wellness Exam Annual Wellness Reason Onset Date Comments Community Monitoring Outreach 01/25/2023 Reason Comments Follow Up Reason Comments Radiology US Specialty Diagnoses / Procedures Referred By Contac t Referred To Contact US IMAGING Diagnoses Elevated liver enzymes Procedures US ABD RT UPPER QUADRANT US ABDOMINAL REAL TIME W/IMAGE LIMITED Nuvia Grissom APRN.SHEEP CLIPPER [address] [place] [address] [place] [address] Referral ID Status Reason Start Date Expiration Date V isits Requested Visits Authorized [id number] Closed Auto-Generate d Referral 01/20/2022 02/19/2023 1 1 Specialty Diagnoses / Procedures Referred By Contac t Referred To Contact US IMAGING Diagnoses Groin pain, right Ecchymosis Procedures US PELVIS LTD US PELVIC NONOBSTETRIC IMAGE DCMTN LIMITED/F/U Eugenio Hernandez MD [address] [place] [address] [place] [address] Referral ID Status Reason Start Date Expiration Date V isits Requested Visits Authorized [id number] Closed Auto-Generate d Referral 02/20/2022 03/22/2023 1 1 Reason Comments patient outreach VyndaLink Reason Comments Rx Refills Care Teams (unrecognized sec tion and content) Waiter/Waitress Head Relationship Specialty Start Date End Date Gab Pisano MD [address] [place] [address] PCP - General Internal Medicine 10/26/15 Brayan Pringle MD Referring Cardiology 10/28/19 Fredrick Walker, diesel power shovel operatorInsurance Account Representative Internal Medicine 05/25/20 Jose Leal MD [address] [place] [address] Primary Staff Physician Cardiology 09/14/20 Waiter/Waitress Head Relationship Specialty Start Date End Date Gab Pisano MD [address] [place], [place] [id number] PCP - General Internal Medicine 10/26/15 Brayan Pringle MD Referring Cardiology 10/28/19 Fredrick Walker, diesel power shovel operatorInsurance Account Representative Internal Medicine 05/25/20 Jose Leal MD [address] [place] [address] Primary Staff Physician Cardiology 09/14/20 Waiter/Waitress Head Relationship Specialty Start Date End Date Gab Pisano MD [address] [place] [address] PCP - General Internal Medicine 10/26/15 Brayan Pringle MD Referring Cardiology 10/28/19 Fredrick Walker, diesel power shovel operatorInsurance Account Representative Internal Medicine 05/25/20 Jose Leal MD [address] [place] [address] Primary Staff Physician Cardiology 09/14/20 Waiter/Waitress Head Relationship Specialty Start Date End Date Gab Pisano MD [address] [place] [address] PCP - General Internal Medicine 10/26/15 Brayan Pringle MD Referring Cardiology 10/28/19 Fredrick Walker, diesel power shovel operatorInsurance Account Representative Internal Medicine 05/25/20 Jose Leal MD [address] [place] [address] Primary Staff Physician Cardiology 09/14/20 Waiter/Waitress Head Relationship Specialty Start Date End Date Gab Pisano MD [address] [place] [address] PCP - General Internal Medicine 10/26/15 Brayan Pringle MD Referring Cardiology 10/28/19 Fredrick Walker, diesel power shovel operatorInsurance Account Representative Internal Medicine 05/25/20 Jose Leal MD [address] [place], [place] [id number] Primary Staff Physician Cardiology 09/14/20 Waiter/Waitress Head Relationship Specialty Start Date End Date Gab Pisano MD [address] [place] [address] PCP - General Internal Medicine 10/26/15 Brayan Pringle MD Referring Cardiology 10/28/19 Fredrick Walker, diesel power shovel operatorInsurance Account Representative Internal Medicine 05/25/20 Jose Leal MD [address] [place] [address] Primary Staff Physician Cardiology 09/14/20 Waiter/Waitress Head Relationship Specialty Start Date End Date Gab Pisano MD [address] [place] [address] PCP - General Internal Medicine 10/26/15 Brayan Pirngle MD Referring Cardiology 10/28/19 Fredrick Walker, diesel power shovel operatorInsurance Account Representative Internal Medicine 05/25/20 Jose Leal MD [address] [place] [address] Primary Staff Physician Cardiology 09/14/20 Waiter/Waitress Head Relationship Specialty Start Date End Date Gab Pisano MD [address] [place] [address] PCP - General Internal Medicine 10/26/15 Brayan Pringle MD Referring Cardiology 10/28/19 Fredrick Walker, diesel power shovel operatorInsurance Account Representative Internal Medicine 05/25/20 Jose Leal MD [address] [place] [address] Primary Staff Physician Cardiology 09/14/20 Waiter/Waitress Head Relationship Specialty Start Date End Date Gab Pisano MD [address] [place] [address] PCP - General Internal Medicine 10/26/15 Brayan Pringle MD Referring Cardiology 10/28/19 Fredrick Walker, diesel power shovel operatorInsurance Account Representative Internal Medicine 05/25/20 Jose Leal MD [address] [place] [address] Primary Staff Physician Cardiology 09/14/20 Waiter/Waitress Head Relationship Specialty Start Date End Date Gab Pisano MD [address] [place], [place] [id number] PCP - General Internal Medicine 10/26/15 Brayan Pringle MD Referring Cardiology 10/28/19 Fredrick Walker, diesel power shovel operatorInsurance Account Representative Internal Medicine 05/25/20 Jose Leal MD [address] [place] [address] Primary Staff Physician Cardiology 09/14/20 Waiter/Waitress Head Relationship Specialty Start Date End Date Gab Pisano MD [address] [place] [address] PCP - General Internal Medicine 10/26/15 Brayan Pringle MD Referring Cardiology 10/28/19 Fredrick Walker, diesel power shovel operatorInsurance Account Representative Internal Medicine 05/25/20 Rito Valera MD [address] [address] Primary Staff Physician Cardiology 09/15/21 Waiter/Waitress Head Relationship Specialty Start Date End Date Gab Pisano MD [address] [place] [address] PCP - General Internal Medicine 10/26/15 Brayan Pringle MD Referring Cardiology 10/28/19 Fredrick Walker, diesel power shovel operatorInsurance Account Representative Internal Medicine 05/25/20 Rito Valera MD [address] [address] Primary Staff Physician Cardiology 09/15/21 Waiter/Waitress Head Relationship Specialty Start Date End Date Gab Pisano MD [address] [place] [address] PCP - General Internal Medicine 10/26/15 Brayan Pringle MD Referring Cardiology 10/28/19 Fredrick Walker, diesel power shovel operatorInsurance Account Representative Internal Medicine 05/25/20 Rito Valera MD [address] [address] Primary Staff Physician Cardiology 09/15/21 Waiter/Waitress Head Relationship Specialty Start Date End Date Gab Pisano MD [address] [place] [address] PCP - General Internal Medicine 10/26/15 Brayan Pringle MD Referring Cardiology 10/28/19 Fredrick Walker, diesel power shovel operatorInsurance Account Representative Internal Medicine 05/25/20 Rito Valera MD [address] [address] Primary Staff Physician Cardiology 09/15/21 Waiter/Waitress Head Relationship Specialty Start Date End Date Gab Pisano MD [address] [place] [address] PCP - General Internal Medicine 10/26/15 Brayan Pringle MD Referring Cardiology 10/28/19 Fredrick Walker, diesel power shovel operatorInsurance Account Representative Internal Medicine 05/25/20 Rito Valera MD [address] [address] Primary Staff Physician Cardiology 09/15/21 Waiter/Waitress Head Relationship Specialty Start Date End Date Gab Pisano MD [address] [place] [address] PCP - General Internal Medicine 10/26/15 Brayan Pringle MD Referring Cardiology 10/28/19 Fredrick Walker, diesel power shovel operatorInsurance Account Representative Internal Medicine 05/25/20 Rito Valera MD [address] [address] Primary Staff Physician Cardiology 09/15/21 Waiter/Waitress Head Relationship Specialty Start Date End Date Gab Pisano MD [address] [place] [address] PCP - General Internal Medicine 10/26/15 Brayan Pringle MD Referring Cardiology 10/28/19 Fredrick Walker, diesel power shovel operatorInsurance Account Representative Internal Medicine 05/25/20 Rito Valera MD [address] [address] Primary Staff Physician Cardiology 09/15/21 Waiter/Waitress Head Relationship Specialty Start Date End Date Gab Pisano MD [address] [place] [address] PCP - General Internal Medicine 10/26/15 Brayan Pringle MD Referring Cardiology 10/28/19 Fredrick Walker, diesel power shovel operatorInsurance Account Representative Internal Medicine 05/25/20 Rito Valera MD [address] [address] Primary Staff Physician Cardiology 09/15/21 Waiter/Waitress Head Relationship Specialty Start Date End Date Gab Pisano MD [address] [place] [address] PCP - General Internal Medicine 10/26/15 Brayan Pringle MD Referring Cardiology 10/28/19 Fredrick Walker, diesel power shovel operatorInsurance Account Representative Internal Medicine 05/25/20 Rito Valera MD [address] [address] Primary Staff Physician Cardiology 09/15/21 Waiter/Waitress Head Relationship Specialty Start Date End Date Gab Pisano MD [address] [place] [address] PCP - General Internal Medicine 10/26/15 Brayan Pringle MD Referring Cardiology 10/28/19 Fredrick Walker, diesel power shovel operatorInsurance Account Representative Internal Medicine 05/25/20 Rito Valera MD [address] [address] Primary Staff Physician Cardiology 09/15/21 Waiter/Waitress Head Relationship Specialty Start Date End Date Gab Pisano MD [address] [place] [address] PCP - General Internal Medicine 10/26/15 Brayan Pringle MD Referring Cardiology 10/28/19 Fredrick Walker, diesel power shovel operatorInsurance Account Representative Internal Medicine 05/25/20 Rito Valera MD [address] [address] Primary Staff Physician Cardiology 09/15/21 Waiter/Waitress Head Relationship Specialty Start Date End Date Gab Pisano MD [address] [place] [address] PCP - General Internal Medicine 10/26/15 Brayan Pringle MD Referring Cardiology 10/28/19 Fredrick Walker RN Insurance Account Representative Internal Medicine 05/25/20 Rito Valera MD [address] [address] Primary Staff Physician Cardiology 09/15/21 Waiter/Waitress Head Relationship Specialty Start Date End Date Gab Pisano MD [address] [place] [address] PCP - General Internal Medicine 10/26/15 Brayan Pringle MD Referring Cardiology 10/28/19 Fredrick Walker, diesel power shovel operatorInsurance Account Representative Internal Medicine 05/25/20 Rito Valera MD [address] [address] Primary Staff Physician Cardiology 09/15/21 Waiter/Waitress Head Relationship Specialty Start Date End Date Gab Pisano MD [address] [place] [address] PCP - General Internal Medicine 10/26/15 Brayan Pringle MD Referring Cardiology 10/28/19 Fredrick Walker, diesel power shovel operatorInsurance Account Representative Internal Medicine 05/25/20 Rito Valera MD [address] [address] Primary Staff Physician Cardiology 09/15/21 Waiter/Waitress Head Relationship Specialty Start Date End Date Gab Pisano MD [address] [place] [address] PCP - General Internal Medicine 10/26/15 Brayan Pringle MD Referring Cardiology 10/28/19 Fredrick Walker, diesel power shovel operatorInsurance Account Representative Internal Medicine 05/25/20 Rito Valera MD [address] [address] Primary Staff Physician Cardiology 09/15/21 Waiter/Waitress Head Relationship Specialty Start Date End Date Gab Pisano MD [address] [place] [address] PCP - General Internal Medicine 10/26/15 Brayan Pringle MD Referring Cardiology 10/28/19 Fredrick Walker, diesel power shovel operatorInsurance Account Representative Internal Medicine 05/25/20 Rito Valera MD [address] [address] Primary Staff Physician Cardiology 09/15/21 Waiter/Waitress Head Relationship Specialty Start Date End Date Gab Pisano MD [address] [place] [address] PCP - General Internal Medicine 10/26/15 Brayan Pringle MD Referring Cardiology 10/28/19 Fredrick Walker, diesel power shovel operatorInsurance Account Representative Internal Medicine 05/25/20 Rito Valera MD [address] [address] Primary Staff Physician Cardiology 09/15/21 Waiter/Waitress Head Relationship Specialty Start Date End Date Gab Pisano MD [address] [place] [address] PCP - General Internal Medicine 10/26/15 Brayan Pringle MD Referring Cardiology 10/28/19 Fredrick Walker, diesel power shovel operatorInsurance Account Representative Internal Medicine 05/25/20 Rito Valera MD [address] [address] Primary Staff Physician Cardiology 09/15/21 Waiter/Waitress Head Relationship Specialty Start Date End Date Gab Pisano MD [address] [place] [address] PCP - General Internal Medicine 10/26/15 Brayan Pringle MD Referring Cardiology 10/28/19 Diane Alcala diesel power shovel operatorInsurance Account Representative Internal Medicine 05/25/20 Rito Valera MD [address] [address] Primary Staff Physician Cardiology 09/15/21 Waiter/Waitress Head Relationship Specialty Start Date End Date Gab Pisano MD [address] [place] [address] PCP - General Internal Medicine 10/26/15 Brayan Pringle MD Referring Cardiology 10/28/19 Diane Alcala, diesel power shovel operatorInsurance Account Representative Internal Medicine 05/25/20 Rito Valera MD [address] [address] Primary Staff Physician Cardiology 09/15/21 Waiter/Waitress Head Relationship Specialty Start Date End Date Gab Pisano MD [address] [place] [address] PCP - General Internal Medicine 10/26/15 Brayan Pringle MD Referring Cardiology 10/28/19 Diane Alcala, diesel power shovel operatorInsurance Account Representative Internal Medicine 05/25/20 Rito Valera MD [address] [address] Primary Staff Physician Cardiology 09/15/21 Waiter/Waitress Head Relationship Specialty Start Date End Date Gab Pisano MD [address] [place] [address] PCP - General Internal Medicine 10/26/15 Brayan Pringle MD [address] [place] [address] Referring Cardiology 10/28/19 Diane Alcala, diesel power shovel operatorInsurance Account Representative Internal Medicine 05/25/20 Rito Valera MD [address] [address] Primary Staff Physician Cardiology 09/15/21 Waiter/Waitress Head Relationship Specialty Start Date End Date Gab Pisano MD [address] [place] [address] PCP - General Internal Medicine 10/26/15 Brayan Pringle MD [address] [place] [address] Referring Cardiology 10/28/19 Diane Alcala, diesel power shovel operatorInsurance Account Representative Internal Medicine 05/25/20 Rito Valera MD [address] [facility] [place] [address] Primary Staff Physician Cardiology 09/15/21 Waiter/Waitress Head Relationship Specialty Start Date End Date Gab Pisano MD [address] [place] [address] PCP - General Internal Medicine 10/26/15 Brayan Pringle MD [address] [place] [address] Referring Cardiology 10/28/19 Diane Alcala, diesel power shovel operatorInsurance Account Representative Internal Medicine 05/25/20 Rito Valera MD [address] [address] Primary Staff Physician Cardiology 09/15/21 Waiter/Waitress Head Relationship Specialty Start Date End Date Gab Pisano MD [address] [place] [address] PCP - General Internal Medicine 10/26/15 Brayan Pringle MD [address] [place] [address] Referring Cardiology 10/28/19 Diane Alcala, diesel power shovel operatorInsurance Account Representative Internal Medicine 05/25/20 Rito Valera MD [address] [address] Primary Staff Physician Cardiology 09/15/21 Waiter/Waitress Head Relationship Specialty Start Date End Date Gab Pisano MD [address] [place] [address] PCP - General Internal Medicine 10/26/15 Brayan Pringle MD [address] [place] [address] Referring Cardiology 10/28/19 Diane Alcala, diesel power shovel operatorInsurance Account Representative Internal Medicine 05/25/20 Rito Valera MD [address] [address] Primary Staff Physician Cardiology 09/15/21 Waiter/Waitress Head Relationship Specialty Start Date End Date Gab Pisano MD [address] [place] [address] PCP - General Internal Medicine 10/26/15 Brayan Pringle MD [address] [place] [address] Referring Cardiology 10/28/19 Diane Alcala RN Insurance Account Representative Internal Medicine 05/25/20 Rito Valera MD [address] [address] Primary Staff Physician Cardiology 09/15/21 Waiter/Waitress Head Relationship Specialty Start Date End Date Gab Pisano MD [address] [place] [address] PCP - General Internal Medicine 10/26/15 Brayan Pringle MD [address] [place] [address] Referring Cardiology 10/28/19 Diane Alcala, diesel power shovel operatorInsurance Account Representative Internal Medicine 05/25/20 Rito Valera MD [address] [address] Primary Staff Physician Cardiology 09/15/21 Waiter/Waitress Head Relationship Specialty Start Date End Date Gab Pisano MD [address] [place] [address] PCP - General Internal Medicine 10/26/15 Brayan Pringle MD [address] [place] [address] Referring Cardiology 10/28/19 Diane Alcala, diesel power shovel operatorInsurance Account Representative Internal Medicine 05/25/20 Rito Valera MD [address] [facility] [place] [address] Primary Staff Physician Cardiology 09/15/21 Waiter/Waitress Head Relationship Specialty Start Date End Date Gab Pisano MD [address] [place] [address] PCP - General Internal Medicine 10/26/15 Brayan Pringle MD [address] [place] [address] Referring Cardiology 10/28/19 Diane Alcala RN Insurance Account Representative Internal Medicine 05/25/20 Rito Valera MD [address] [facility] [address] [place] [address] Primary Staff Physician Cardiology 09/15/21 Waiter/Waitress Head Relationship Specialty Start Date End Date Gab Pisano MD [address] [place] [address] PCP - General Internal Medicine 10/26/15 Brayan Pringle MD [address] [place] [address] Referring Cardiology 10/28/19 Diane Alcala, diesel power shovel operatorInsurance Account Representative Internal Medicine 05/25/20 Rito Valera MD [address] [address] Primary Staff Physician Cardiology 09/15/21 Waiter/Waitress Head Relationship Specialty Start Date End Date Gab Pisano MD [address] [place] [address] PCP - General Internal Medicine 10/26/15 Brayan Pringle MD [address] [place] [address] Referring Cardiology 10/28/19 Diane Alcala, diesel power shovel operatorInsurance Account Representative Internal Medicine 05/25/20 Rito Vaelra MD [address] [address] [phone] Primary Staff Physician Cardiology 09/15/21 Waiter/Waitress Head Relationship Specialty Start Date End Date Gab Pisano MD [address] [place] [address] PCP - General Internal Medicine 10/26/15 Brayan Pringle MD [facility] [place] [address] Referring Cardiology 10/28/19 Diane Alcala RN Insurance Account Representative Internal Medicine 05/25/20 Rito Valera MD [address] [address] Primary Staff Physician Cardiology 09/15/21 Waiter/Waitress Head Relationship Specialty Start Date End Date Gab Pisano MD [address] [place] [address] PCP - General Internal Medicine 10/26/15 Brayan Pringle MD [address] [place] [address] Referring Cardiology 10/28/19 Diane Alcala, diesel power shovel operatorInsurance Account Representative Internal Medicine 05/25/20 Rito Valera MD [address] [id number] [phone] Primary Staff Physician Cardiology 09/15/21 Waiter/Waitress Head Relationship Specialty Start Date End Date Gab Pisano MD [address] [place] [address] PCP - General Internal Medicine 10/26/15 Brayan Pringle MD [address] [place] [address] Referring Cardiology 10/28/19 Diane Alcala, diesel power shovel operatorInsurance Account Representative Internal Medicine 05/25/20 Rito Valera MD [address] [address] Primary Staff Physician Cardiology 09/15/21 Waiter/Waitress Head Relationship Specialty Start Date End Date Gab Pisano MD [address] [place] [address] PCP - General Internal Medicine 10/26/15 Brayan Pringle MD [facility] [place] [address] Referring Cardiology 10/28/19 Diane Alcala RN Insurance Account Representative Internal Medicine 05/25/20 Rito Valera MD [address] [address] Primary Staff Physician Cardiology 09/15/21 Waiter/Waitress Head Relationship Specialty Start Date End Date Gab Pisano MD [address] [place] [address] PCP - General Internal Medicine 10/26/15 Brayan Pringle MD [address] [place] [address] Referring Cardiology 10/28/19 Diane Aclala RN Insurance Account Representative Internal Medicine 05/25/20 Rito Valera MD [address] [address] Primary Staff Physician Cardiology 09/15/21 Waiter/Waitress Head Relationship Specialty Start Date End Date Gab Pisano MD [address] [place] [address] PCP - General Internal Medicine 10/26/15 Brayan Pringle MD [address] [place] [address] Referring Cardiology 10/28/19 Diane Alcala, diesel power shovel operatorInsurance Account Representative Internal Medicine 05/25/20 Rito Valera MD [address] [address] Primary Staff Physician Cardiology 09/15/21 Waiter/Waitress Head Relationship Specialty Start Date End Date Gab Pisano MD [address] [place] [address] PCP - General Internal Medicine 10/26/15 Brayan Pringle MD [address] [place] [address] Referring Cardiology 10/28/19 Diane Alcala RN Insurance Account Representative Internal Medicine 05/25/20 Rito aVlera MD [address] [address] Primary Staff Physician Cardiology 09/15/21 Waiter/Waitress Head Relationship Specialty Start Date End Date Gab Pisano MD [address] [place] [address] PCP - General Internal Medicine 10/26/15 Brayan Pringle MD [address] [place] [address] Referring Cardiology 10/28/19 Diane Alcala RN Insurance Account Representative Internal Medicine 05/25/20 Rito Valera MD [address] [address] Primary Staff Physician Cardiology 09/15/21 Waiter/Waitress Head Relationship Specialty Start Date End Date Gab Pisano MD [address] [place] [address] PCP - General Internal Medicine 10/26/15 Brayan Pringle MD [address] [place] [address] Referring Cardiology 10/28/19 Diane Alcala, diesel power shovel operatorInsurance Account Representative Internal Medicine 05/25/20 Rito Valera MD [address] [facility] [address] [place] [address] Primary Staff Physician Cardiology 09/15/21 Waiter/Waitress Head Relationship Specialty Start Date End Date Gab Pisano MD [address] [place] [address] PCP - General Internal Medicine 10/26/15 Brayan Pringle MD [address] [place] [address] Referring Cardiology 10/28/19 Diane Alcala RN Insurance Account Representative Internal Medicine 05/25/20 Rito Valera MD [address] [facility] [address] [place] [address] Primary Staff Physician Cardiology 09/15/21 Waiter/Waitress Head Relationship Specialty Start Date End Date Gab Pisano MD [address] [place] [address] PCP - General Internal Medicine 10/26/15 Brayan Pringle MD [address] [place] [address] Referring Cardiology 10/28/19 Diane Alcala RN Insurance Account Representative Internal Medicine 05/25/20 Rito Valera MD [address] [facility] [place] [address] Primary Staff Physician Cardiology 09/15/21 Waiter/Waitress Head Relationship Specialty Start Date End Date Gab Pisano MD [address] [place] [address] PCP - General Internal Medicine 10/26/15 Brayan Pringle MD [address] [place] [address] Referring Cardiology 10/28/19 Diane Alcala, diesel power shovel operatorInsurance Account Representative Internal Medicine 05/25/20 Rito Valera MD [address] [facility] [place] [address] Primary Staff Physician Cardiology 09/15/21 Waiter/Waitress Head Relationship Specialty Start Date End Date Gab Pisano MD [address] [place] [address] PCP - General Internal Medicine 10/26/15 Brayan Pringle MD [address] [place] [address] Referring Cardiology 10/28/19 Diane Alcala, diesel power shovel operatorInsurance Account Representative Internal Medicine 05/25/20 Rito Valera MD [address] [facility] [place] [address] Primary Staff Physician Cardiology 09/15/21 Waiter/Waitress Head Relationship Specialty Start Date End Date Gab Pisano MD [address] [place] [address] PCP - General Internal Medicine 10/26/15 Brayan Pringle MD [address] [place], [place] [address] Referring Cardiology 10/28/19 Diane Alcala, diesel power shovel operatorInsurance Account Representative Internal Medicine 05/25/20 Rito Valera MD [address] [facility] [facility] [place] [address] Primary Staff Physician Cardiology 09/15/21 Waiter/Waitress Head Relationship Specialty Start Date End Date Gab Pisano MD [address] [place] [address] PCP - General Internal Medicine 10/26/15 Brayan Pringle MD [address] [place] [address] Referring Cardiology 10/28/19 Diane Alcala RN Insurance Account Representative Internal Medicine 05/25/20 Rito Valera MD [address] [address] Primary Staff Physician Cardiology 09/15/21 Waiter/Waitress Head Relationship Specialty Start Date End Date Gab Pisano MD [address] [place] [address] PCP - General Internal Medicine 10/26/15 Brayan Pringle MD [address] [place] [address] Referring Cardiology 10/28/19 Diane Alcala, diesel power shovel operatorInsurance Account Representative Internal Medicine 05/25/20 Rito Valera MD [address] [facility] [place], [place] [id number] Primary Staff Physician Cardiology 09/15/21 Waiter/Waitress Head Relationship Specialty Start Date End Date Gab Pisano MD [address] [place] [address] PCP - General Internal Medicine 10/26/15 Brayan Pringle MD [address] [place] [address] Referring Cardiology 10/28/19 Diane Alcala, diesel power shovel operatorInsurance Account Representative Internal Medicine 05/25/20 Rito Valera MD [address] [address] Primary Staff Physician Cardiology 09/15/21 Waiter/Waitress Head Relationship Specialty Start Date End Date Gab Pisano MD [address] [place] [address] PCP - General Internal Medicine 10/26/15 Brayan Pringle MD [address] [place] [address] Referring Cardiology 10/28/19 Diane Alcala, diesel power shovel operatorInsurance Account Representative Internal Medicine 05/25/20 Rito Valera MD [address] [address] Primary Staff Physician Cardiology 09/15/21 Waiter/Waitress Head Relationship Specialty Start Date End Date Gab Pisano MD [address] [place] [address] PCP - General Internal Medicine 10/26/15 Brayan Pringle MD [address] [place] [address] Referring Cardiology 10/28/19 Diane Alcala, diesel power shovel operatorInsurance Account Representative Internal Medicine 05/25/20 Rito Valera MD [address] [facility] [place] [address] Primary Staff Physician Cardiology 09/15/21 Waiter/Waitress Head Relationship Specialty Start Date End Date Gab Pisano MD [address] [place] [address] PCP - General Internal Medicine 10/26/15 Brayan Pringle MD [address] [place] [address] Referring Cardiology 10/28/19 Diane Alcala RN Insurance Account Representative Internal Medicine 05/25/20 Rito Valera MD [address] [address] Primary Staff Physician Cardiology 09/15/21 Waiter/Waitress Head Relationship Specialty Start Date End Date Gab Pisano MD [address] [place] [address] PCP - General Internal Medicine 10/26/15 Brayan Pringle MD [address] [place] [address] Referring Cardiology 10/28/19 Diane Alcala, diesel power shovel operatorInsurance Account Representative Internal Medicine 05/25/20 Rito Valera MD [address] [facility] [place], [place] [id number] Primary Staff Physician Cardiology 09/15/21 Waiter/Waitress Head Relationship Specialty Start Date End Date Gab Pisano MD [address] [place] [address] PCP - General Internal Medicine 10/26/15 Brayan Pringle MD [address] [place], [place] [address] Referring Cardiology 10/28/19 Diane Alcala, diesel power shovel operatorInsurance Account Representative Internal Medicine 05/25/20 Rito Valera MD [address] [place], [place] [id number] Primary Staff Physician Cardiology 09/15/21 Waiter/Waitress Head Relationship Specialty Start Date End Date Gab Pisano MD [address] [place] [address] PCP - General Internal Medicine 10/26/15 Brayan Pringle MD [address] [place], [place] [address] Referring Cardiology 10/28/19 Diane Alcala, diesel power shovel operatorInsurance Account Representative Internal Medicine 05/25/20 Rito Valera MD [address] [facility] [address] [place] [address] Primary Staff Physician Cardiology 09/15/21 Waiter/Waitress Head Relationship Specialty Start Date End Date Gab Pisano MD [address] [place] [address] PCP - General Internal Medicine 10/26/15 Brayan Pringle MD [address] [place], [place] [id number] Referring Cardiology 10/28/19 Diane Alcala, diesel power shovel operatorInsurance Account Representative Internal Medicine 05/25/20 Rito Valera MD [address] [facility] [place] [address] Primary Staff Physician Cardiology 09/15/21 Waiter/Waitress Head Relationship Specialty Start Date End Date Gab Pisano MD [address] [place] [address] PCP - General Internal Medicine 10/26/15 Brayan Pringle MD [address] [place] [address] Referring Cardiology 10/28/19 Diane Alcala RN Insurance Account Representative Internal Medicine 05/25/20 Rito Valera MD [address] [address] Primary Staff Physician Cardiology 09/15/21 Waiter/Waitress Head Relationship Specialty Start Date End Date Gab Pisano MD [address] [place] [address] PCP - General Internal Medicine 10/26/15 Brayan Pringle MD [address] [place] [address] Referring Cardiology 10/28/19 Diane Alcala, diesel power shovel operatorInsurance Account Representative Internal Medicine 05/25/20 Rito Valera MD [address] [facility] [place] [address] Primary Staff Physician Cardiology 09/15/21 Waiter/Waitress Head Relationship Specialty Start Date End Date Gab Pisano MD [address] [place] [address] PCP - General Internal Medicine 10/26/15 Brayan Pringle MD [address] [place] [address] Referring Cardiology 10/28/19 Diane Alcala, diesel power shovel operatorInsurance Account Representative Internal Medicine 05/25/20 Rito Valera MD [address] [facility] [place] [address] Primary Staff Physician Cardiology 09/15/21 Waiter/Waitress Head Relationship Specialty Start Date End Date Gab Pisano MD [address] [place] [address] PCP - General Internal Medicine 10/26/15 Brayan Pringle MD [address] [facility], [place] [address] Referring Cardiology 10/28/19 Diane Alcala RN Insurance Account Representative Internal Medicine 05/25/20 Rito Valera MD [address] [facility] [place] [address] Primary Staff Physician Cardiology 09/15/21 Waiter/Waitress Head Relationship Specialty Start Date End Date Gab Pisano MD [address] [place] [address] PCP - General Internal Medicine 10/26/15 Brayan Pringle MD [address] [place] [address] Referring Cardiology 10/28/19 Alcala, Diane M, diesel power shovel operatorInsurance Account Representative Internal Medicine 05/25/20 Rito Valera MD [address] [facility] [place] [address] Primary Staff Physician Cardiology 09/15/21 Waiter/Waitress Head Relationship Specialty Start Date End Date Gab Pisano MD [address] [place] [address] PCP - General Internal Medicine 10/26/15 Brayan Pringle MD [address] [place], [place] [id number] Referring Cardiology 10/28/19 Diane Alcala RN Insurance Account Representative Internal Medicine 05/25/20 Rito Valera MD [address] [facility] [place] [address] Primary Staff Physician Cardiology 09/15/21 Waiter/Waitress Head Relationship Specialty Start Date End Date Gab Pisano MD [address] [place] [address] PCP - General Internal Medicine 10/26/15 Brayan Prnigle MD [address] [place], [place] [address] Referring Cardiology 10/28/19 Diane Alcala, diesel power shovel operatorInsurance Account Representative Internal Medicine 05/25/20 Rito Valera MD [address] [facility] [place] [address] Primary Staff Physician Cardiology 09/15/21 Waiter/Waitress Head Relationship Specialty Start Date End Date Gab Pisano MD [address] [place], [place] [id number] PCP - General Internal Medicine 10/26/15 Brayan Pringle MD [address] [place] [address] Referring Cardiology 10/28/19 Diane Alcala, diesel power shovel operatorInsurance Account Representative Internal Medicine 05/25/20 Rito Valera MD [address] [place] [address] Primary Staff Physician Cardiology 09/15/21 FOR RECORDS PERTAINING TO PATIENTS WHO ARE OR HAVE BEEN ENROLLED IN A CHEMICAL DEPENDENCY/SUBSTANCEABUSE PROGRAM, SOME INFORMATION MAY BE OMITTED. This clinical summary was aggregated from multiple sources. Caution should be exercised in using it in the provision of clinical care. This summary normalizes information from multiple sources, and as a consequence, information in this document may materially change the coding, format and clinical context of patient data. In addition, data may be omitted in some cases. CLINICAL DECISIONS SHOULD BE BASED ON THE PRIMARY CLINICAL RECORDS. [employer] [facility]. provides no warranty or guarantee of the accuracy or completeness of information in this document.
[2023-04-20 20:58] VITALS: BP 164/66; PULSE 68; RESP 16; RESP 18; TEMP 37.2; O2SAT 96; BMI 23.1
[2023-04-20 21:23] VITALS: BMI 23.1
--- NOTE | 2023-04-20 21:54 | HP.PCM_ITS ---
HPI - General General Date of Admission: 04/20/23 Date of Service: 04/23/23 Chief Complaint: Here for rehabilitation. HPI Narrative KEYONNA VILLAGOMEZ, is a 82 Female who presents with followin04/02/2023 Bloody diarrhea from diverticulitis. 04/05/2023 Chest pain radiating down left arm. 04/06/[address] [facility]. Left shoulder pain, no active ROM, LUE weakness, sudden onset. Orthopedics aspirated left shoulder, pus growing S. Pyogenes. Treat with IV Ceftriaxone, IV Vancomycin, stop Zosyn. 04/06/2023 TTE negative for vegetations. 04/06/2023 Synovial fluid grew Group A Strep. 04/07/2023 Orthopedics performed arthroscopic debridement, synectomy left shoulder. 04/07/2023 Blood cultures x 2 negative. 04/09/2023 Acute kidney injury secondary to ATN, muddy brown casts. Decrease Ceftriaxone to 1gm iv q24. Diurese with Furosemide. Britton catheter for I's+O's. Transaminitis secondary to hypoperfusion. 04/12/2023 MICU for GI bleed, Tagged RBC scan +, Duodenal ulcer injected/clipped. 04/13/2023 H. Pylori stool negative. 04/13/2023 LUE Doppler negative DVT. Bacteremia from diverticulitis seeding left shoulder. 04/18/2023 Thrush, oral HSV outbreak. Zosyn 3.375gm iv q12 for septic left shoulder, Group A Strep bacteremia thru 04/20/2023. Then high dose oral antibiotics. Nystatin for Thrush. Acyclovir 400mg tid for oral HSV outbreak. 04/18/2023 Neck pain, left shoulder pain, left arm pain improving with PT/OT. Creatinine 3.85 to 3.21. WBAT LUE, Immobilizer LUE. IVC filter penetrating IVC, off heparin 2/2 dark stools. Britton for urinary retention. 04/19/2023 Creatinine 2.44 to 2.03. 04/20/2023 Admit to TCU with debility, here for rehabilitation, strengthening, prior to discharge home with . [facility] Medical History Abdominal pain Abdominal pain Abnormal stress echo Acid reflux Arthritis Atherosclerosis of [place] coronary artery of [place] heart without angina pect selam Back problem Cellulitis of left lower extremity Chest pain Constipation Diverticulitis of sigmoid colon Essential hypertension Gastrointestinal hemorrhage Heart murmur Hemorrhoids History of pulmonary embolus (PE) (~2009) History of venous thrombosis and embolism hx of APLL Hyperlipidemia Hypertrophic cardiomyopathy Hypofibrinogenemia Hypothyroidism LVH (left ventricular 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 Palpitations Personal history of colonic polyps Severe left ventricular hypertrophy Severe mitral regurgitation Thrombophlebitis of superficial veins of left lower extremity Wild-type transthyretin-related (ATTR) amyloidosis Home Medications tramadol 50 mg tablet 50 mg PO Q6H PRN PAIN 05/20/17 [History Last Taken Unknown] levothyroxine 88 mcg tablet 88 mcg PO DAILY THYROID 05/27/18 [History Last Taken 04/04/23] enoxaparin 60 mg/0.6 mL subcutaneous syringe (Lovenox) 60 mg subcut QHS BLOOD THINNER 09/25/18 [History Last Taken 04/01/23] aspirin 81 mg tablet,delayed release (Adult Aspirin Regimen) 81 mg PO DAILY HEART HEALTH 12/12/19 [History Last Taken 04/04/23] tafamidis 61 mg capsule 61 mg PO DAILY HEART FAILURE 12/12/19 [History Last Taken 04/04/23] cholecalciferol (vitamin D3) 125 mcg (5,000 unit) capsule 125 mcg PO DAILY SUPPLEMENT 04/15/20 [History Last Taken 04/04/23] rosuvastatin 5 mg tablet 5 mg PO DAILY CHOLESTEROL 01/25/22 [History Last Taken 04/04/23] vitamin A 2,400 mcg capsule 2,400 mcg PO UD Supplement 01/25/22 [History Last Taken Unknown] metoprolol succinate 25 mg tablet,extended release 24 hr (Toprol XL) 12.5 mg PO DAILY BLOOD PRESSURE 07/13/22 [History Last Taken 04/04/23] omega-3 348 mg-dha 100 mg-epa 230 mg-fish 500 mg-coQ10 100 mg capsule (CoQmax [place]) 1 cap PO DAILY SUPPLEMENT 01/11/23 [History Last Taken 04/04/23] vitamins A,C,P-xvja-nechja 4,296 mcg-226 mg-90 mg capsule (PreserVision AREDS) 1 cap PO BID EYE HEALTH 01/11/23 [History Last Taken 04/04/23] gabapentin 300 mg capsule 300 mg PO QHS NEUROPATHY 02/16/23 [History Last Taken 04/03/23] potassium chloride 20 mEq tablet,extended release 20 meq PO DAILY Supplement #90 tabs 02/16/23 [Rx Last Taken 04/04/23] ondansetron 4 mg disintegrating tablet 4 mg PO Q8H PRN NAUSEA 04/04/23 [History Last Taken 04/04/23] ondansetron 4 mg disintegrating tablet 4 mg PO Q8H PRN PRN Nausea #10 tabs 04/04/23 [Rx Last Taken Unknown] torsemide 10 mg tablet 10 mg PO BID FLUID 04/04/23 [History Last Taken 04/04/23] MAGIC MOUTH WASH (BMX) 180 mL suspension 5 ml PO Q4H PRN Mouth pain #180 mL 04/20/23 [History Last Taken Unknown] acetaminophen 500 mg tablet 1,000 mg PO Q8H PRN PRN pain 04/20/23 [History Last Taken Unknown] acyclovir 200 mg/5 mL (5 mL) oral suspension 200 mg PO 5X/DAY mouth sores 04/20/23 [History Last Taken Unknown] amoxicillin 500 mg capsule 1,000 mg PO BID Infection 04/20/23 [History Last Taken Unknown] benzocaine 6 mg-menthol 10 mg lozenges 1 salvatore mucous membrane Q2H Sore throat 04/20/23 [History Last Taken Unknown] diclofenac sodium 1 % topical gel (Voltaren Arthritis Pain) 2 g topical 4X/DAY Arthritis pain 04/20/23 [History Last Taken Unknown] melatonin 3 mg tablet 3 mg PO QHS PRN sleep 04/20/23 [History Last Taken Unknown] nystatin 100,000 unit/mL oral suspension 5 ml PO 4X/DAY Thrush 04/20/23 [History Last Taken Unknown] pantoprazole 40 mg tablet,delayed release 40 mg PO BID Acid reflux 04/20/23 [History Last Taken Unknown] polyethylene glycol 3350 17 gram/dose oral powder 17 g PO DAILY Constipation 04/20/23 [History Last Taken Unknown] sennosides 8.6 mg capsule (senna) 8.6 mg PO BID PRN constipation 04/20/23 [History Last Taken Unknown] Allergy/AdvReac Type Severity Reaction Status Date / Time Iodinated Contrast Media Allergy Severe Hives Verified 04/03/23 15:19 [Iodinated Contrast- Oral and IV Dye] iodine Allergy Anaphylaxis Verified 04/03/23 15:19 Family History Mother Colon cancer Brother Myeloma Father Heart disease Surgical History History of left heart catheterization (10/22/19) History of left hip replacement History of right hip replacement Hx of arthroscopic knee surgery Hx of bilateral inguinal hernia repair Hx of bladder repair surgery Hx of hysterectomy Hx of partial thyroidectomy Hx of umbilical hernia repair (~2009) Social History (Updated 04/20/23 @ 22:[address] David Avery MD) household members: spouse Smoking Status: Never smoker second hand exposure: No alcohol intake: never substance use type: does not use caffeine: Yes (very rare) what type of physical activity do you participate in: none frequency: does not exercise seatbelt use: always ROS Constitutional Constitutional: Denies chills, fever(s) or weight gain ENT HEENT: Denies headache(s), nasal congestion or nasal discharge Cardiovascular Cardiovascular: Denies chest pain or palpitations Respiratory/Chest Respiratory/Chest: Denies cough, excessive phlegm production or shortness of breath with exertion Gastrointestinal Gastrointestinal: Denies abdominal pain, nausea or vomiting Genitourinary Genitourinary: Denies dysuria Musculoskeletal Musculoskeletal: Denies joint pain or joint swelling Integumentary Integumentary: Denies rash or wounds Neurologic Neurologic: Denies focal weakness, numbness or tingling Psychiatric Psychiatric: Reports other Details: Trouble sleeping. ; Denies anxiety, auditory hallucinations, depression, homicidal ideation or suicidal ideation Vital Signs Vital Signs Vital Signs: 04/20/23 20:58 Temperature 98.9 F Temperature Source Axillary Pulse Rate 68 Respiratory Rate 18 Blood Pressure 164/66 H Blood Pressure Mean 98 Blood Pressure Source Monitor Blood Pressure Position Semi-Fowlers Blood Pressure Location Right Arm Pulse Ox 96 Oxygen Delivery Method Room Air Physical Exam Const alert General Appearance: cooperative HEENT normocephalic Eyes PERRL and EOMs intact bilaterally Neck supple, no JVD and no carotid bruits Resp normal respiratory effort, normal air movement and clear to auscultation bilaterally Cardio regular rate and regular rhythm GI normal to inspection, nondistended, normoactive bowel sounds, non-tender and non-distended Extremity normal capillary refill General Extremity: Negative for edema Skin no rashes or lesions noted General Skin Exam: no breakdown Psych affect normal Appearance: appropriate Results Lab / Micro Data 04/22/23 04:05 04/23/23 05:12 Assessment & Plan Assessment/Plan (1) Debility: (2) Sepsis: (3) Septic arthritis of shoulder, left: (4) Streptococcal bacteremia: (5) Acute diverticulitis: (6) Bleeding duodenal ulcer: (7) Upper GI bleed: (8) BRIANA (acute kidney injury): (9) Thrush: (10) 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: (11) Hypothyroidism: (12) Hyperlipidemia: QUALIFIERS: Hyperlipidemia type: unspecified Qualified Code(s): E78.5 - Hyperlipidemia, unspecified (13) Neuropathic pain: (14) Coronary artery disease: (15) Cardiac amyloidosis: (16) Pulmonary embolism: PLAN: Plan 82 year old female with below past medical history hospitalized for septic arthritis left shoulder, s/p debridement, strep A bacteremia, complicated by bleeding duodenal ulcer, acute kidney injury, transaminitis, thrush, oral hsv o utbreak, admitted to TCU with debility, here for rehabilitation, strengthening, prior to discharge home with . * Debility - PT/OT. * Pain - Tylenol 1000mg q6 prn pain (1-10), Diclofenac 2gm topical 4x/day. * Bowel - Miralax 17gm daily, senna/colace 1 tablet bid. * Adult immunization - Administer pneumonia vaccine, covid vaccine, flu vaccine as appropriate. * DVT prophylaxis - Hold, bleeding duodenal ulcer. * Oral HSV - Acyclovir 200mg 5x/day thru 04/27/2023, Cepacol 1 lozenge q2h prn, BMX 5ml q4h prn. * Septic left shoulder/Group A strep bacteremia - Amoxicillin 1000mg bid thru 05/04/2023. * Coronary artery disease - Metoprolol succinate 12.5mg daily, Aspirin 81mg daily. * Hyperlipidemia - Atorvastatin 10mg qhs. * Vitamin D deficiency - D3 125mcg daily. * Neuropathic pain - Gabapentin 300mg qhs. * Hypothyroidism - Levothyroxine 88mcg daily. * Insomnia - Failed Melatonin 3mg qhs, rx Doxepin 10mg qhs prn. * Thrush - Nystatin 500,000 4x/day thru 04/24/2023. * Nausea - Zofran 4mg q8 prn. * Duodenal ulcer - Pantoprazole 40mg bid. * Hypokalemia - KCL 20meq daily. * Cardiac amyloidosis - Tafamidis 61mg daily.
[2023-04-20] MEDS: AMOXICILLIN 500 MG CAPSULE 1000 MG PO (22:55)
[2023-04-20] MEDS: Gabapentin 300 MG Capsule PO (22:55)
[2023-04-20] MEDS: NYSTATIN 500,000 UNIT/5 ML UDC 500000 UNIT PO (22:55)
[2023-04-20] MEDS: Atorvastatin Calcium 10 MG Tablet PO (22:55)
[2023-04-20] MEDS: Acyclovir 200 MG Capsule PO (22:55)
[2023-04-20] MEDS: Pantoprazole Sodium 40 MG Tablet PO (22:55)
[2023-04-20] MEDS: MELATONIN 3 MG TABLET PO (22:55)
[2023-04-21] MEDS: NYSTATIN 500,000 UNIT/5 ML UDC 500000 UNIT PO ×4 (06:08→20:15)
[2023-04-21] MEDS: Acyclovir 200 MG Capsule PO ×5 (06:09→20:15)
[2023-04-21] MEDS: Levothyroxine 88 MCG Tablet PO (06:09)
[2023-04-21 06:28] VITALS: BP 158/71; PULSE 80
[2023-04-21 07:42] LABS: Absolute Lymphocyte Count 0.81 X10^3/uL (0.83-4.51); Absolute Neutrophil Count 6.1 X10^3/uL (2.0-7.7); Basophil# 0.01 X10^3/uL; Basophil% 0.1 % (0-1); Eosinophil# 0.13 X10^3/uL; Eosinophils% 1.7 % (0-5); Hematocrit 28.5 % (37-47); Lymphocyte # 0.81 X10^3/ul (0.83-4.51); Lymphocyte % 10.7 % (19-41); Mean Corp Hgb Conc 31.6 g/dL (32-36); Mean Corpuscular Hgb 28.4 pg (27.0-32.0); Mean Corpuscular Volume 89.9 fL (81-99); Mean Platelet Vol. 9.5 fl (6.2-12.0); Monocyte# 0.55 X10^3/uL; Monocyte% 7.2 % (0-10); NRBC Flagged by Analyzer 0 % (0-5); Neutrophil # 6.06 X10^3/uL (2.7-7.7); Neutrophil % 79.9 % (47-70); Platelet Count 274 K/mm3 (150-450); RBC Distribution Width CV 15.9 % (11.6-14.6); RBC Distribution Width SD 51.3 fl (35.1-43.9); Red Blood Count 3.17 M/mm3 (4.2-5.4); White Blood Count 7.6 K/mm3 (4.4-11.0)
[2023-04-21 07:56] LABS: Anion Gap 6 (5-15); BUN 21 mg/dL (7-18); BUN/Creat Ratio 18.6 RATIO (10-20); Chloride 113 mmol/L (98-107); Creatinine, Serum 1.13 mg/dL (0.55-1.02); EST Glomerular Filtration Rate 49 mL/min (>60); Est Glom Filt Rate - Afr Amer 59 mL/min (>60); Estimated Creatinine Clearance 34.54 ml/min; Glucose 115 mg/dL (74-106); Potassium 3.2 mmol/L (3.5-5.1); Sodium Level 144 mmol/L (136-145)
[2023-04-21] MEDS: Cholecalciferol (Vit D3) 125 MCG CAPSULE (5,000 UNITS) PO (08:39)
[2023-04-21] MEDS: Aspirin E.C. 81 MG Tablet PO (08:39)
[2023-04-21] MEDS: Potassium Chloride Oral Tablet 20 MEQ PO ×2 (08:41→17:09)
[2023-04-21] MEDS: AMOXICILLIN 500 MG CAPSULE 1000 MG PO ×2 (08:41→20:15)
[2023-04-21 08:42] VITALS: BP 135/72; PULSE 95
[2023-04-21] MEDS: Metoprolol(XL)Succ 25 MG Tablet 12.5 MG PO (08:42)
[2023-04-21] MEDS: Pantoprazole Sodium 40 MG Tablet PO ×2 (08:42→20:15)
[2023-04-21 08:45] VITALS: BP 135/72; PULSE 95
--- NOTE | 2023-04-21 10:39 | RAD_ITS ---
STUDY: X-RAY - ABDOMEN/PELVIS REASON FOR EXAM: Female, 82 years old. loose stools TECHNIQUE: Two AP supine views of the abdomen and pelvis. COMPARISON: None. FINDINGS: Normal visualized lung bases. Distended air-filled loops of small and large bowel throughout the abdomen and pelvis consistent with both colonic and small bowel ileus. There is no demonstrated free abdominal air. The visualized liver, spleen and kidneys are grossly normal in size and morphology. Normal soft tissue structures. There are diffuse degenerative changes of the visualized lumbar spine, and pelvis. Replaced hip joints are free of complication. IVC filter noted RAD/Abdomen Single View IMPRESSION: Small bowel and colonic ileus Electronically Signed: Rex Mitchell MD at 12:23 EST ,
[2023-04-21] MEDS: Tuberculin,Purif.prot.deriv. 50 TU/ML Vial 0.100000000000000006 ML ID (11:08)
[2023-04-21] MEDS: Arthritis Pain Compound 60 CLICK TUBE TOPICAL ×2 (11:08→17:08)
[2023-04-21] MEDS: Iron Polysaccharide Complex 150 MG CAPSULE PO (11:56)
[2023-04-21] MEDS: Acetaminophen 500 MG Tablet 1000 MG PO (11:57)
[2023-04-21 16:00] VITALS: BP 148/71; PULSE 69; RESP 16; TEMP 37; O2SAT 98
[2023-04-21] MEDS: MELATONIN 3 MG TABLET PO (20:15)
[2023-04-21] MEDS: Gabapentin 300 MG Capsule PO (20:15)
[2023-04-21] MEDS: Atorvastatin Calcium 10 MG Tablet PO (20:15)
--- NOTE | 2023-04-21 20:19 | NURSING ---
Patient requested medications at this time. All HS medications given at this time, patient states that she just wants to go to sleep.
[2023-04-22 04:47] LABS: Hematocrit 27.4 % (37-47); Hemoglobin 8.8 g/dL (12.0-15.0)
[2023-04-22 05:15] LABS: Anion Gap 4 (5-15); BUN 19 mg/dL (7-18); BUN/Creat Ratio 18.6 RATIO (10-20); Calcium,Total 7.4 mg/dL (8.5-10.1); Chloride 112 mmol/L (98-107); Creatinine, Serum 1.02 mg/dL (0.55-1.02); EST Glomerular Filtration Rate 55 mL/min (>60); Est Glom Filt Rate - Afr Amer 67 mL/min (>60); Estimated Creatinine Clearance 38.26 ml/min; Glucose 100 mg/dL (74-106); Potassium 3.4 mmol/L (3.5-5.1); Sodium Level 142 mmol/L (136-145)
[2023-04-22] MEDS: Levothyroxine 88 MCG Tablet PO (05:24)
[2023-04-22] MEDS: Acyclovir 200 MG Capsule PO ×5 (05:25→21:26)
[2023-04-22] MEDS: Furosemide 20 MG Tablet PO ×2 (05:25→13:54)
[2023-04-22] MEDS: NYSTATIN 500,000 UNIT/5 ML UDC 500000 UNIT PO ×4 (05:25→21:26)
[2023-04-22] MEDS: Potassium Chloride Oral Tablet 20 MEQ PO ×2 (09:09→17:16)
[2023-04-22] MEDS: AMOXICILLIN 500 MG CAPSULE 1000 MG PO ×2 (09:09→21:26)
[2023-04-22] MEDS: Aspirin E.C. 81 MG Tablet PO (09:09)
[2023-04-22 09:10] VITALS: BP 138/75; PULSE 81
[2023-04-22] MEDS: Metoprolol(XL)Succ 25 MG Tablet 12.5 MG PO (09:10)
[2023-04-22] MEDS: Pantoprazole Sodium 40 MG Tablet PO ×2 (09:10→21:26)
[2023-04-22] MEDS: Iron Polysaccharide Complex 150 MG CAPSULE PO (09:10)
[2023-04-22] MEDS: Cholecalciferol (Vit D3) 125 MCG CAPSULE (5,000 UNITS) PO (09:11)
[2023-04-22] MEDS: TAFAMIDIS 61 MG CAPSULE PO (09:11)
[2023-04-22] MEDS: Ascorbic Acid 500 MG Tablet PO (09:11)
[2023-04-22 10:00] VITALS: PULSE 78; O2SAT 97
[2023-04-22] MEDS: Arthritis Pain Compound 60 CLICK TUBE TOPICAL ×2 (11:24→17:16)
[2023-04-22] MEDS: Potassium Chloride Oral Tablet 20 MEQ 40 MEQ PO (11:25)
[2023-04-22 14:49] VITALS: BP 153/77; PULSE 70; RESP 16; TEMP 36.7; O2SAT 97
[2023-04-22] MEDS: MELATONIN 3 MG TABLET PO (21:27)
[2023-04-22] MEDS: Atorvastatin Calcium 10 MG Tablet PO (21:27)
[2023-04-22] MEDS: Gabapentin 300 MG Capsule PO (21:27)
[2023-04-23] MEDS: NYSTATIN 500,000 UNIT/5 ML UDC 500000 UNIT PO ×4 (05:35→21:39)
[2023-04-23] MEDS: Acyclovir 200 MG Capsule PO ×5 (05:35→21:39)
[2023-04-23] MEDS: Furosemide 20 MG Tablet PO ×2 (05:35→13:15)
[2023-04-23] MEDS: Levothyroxine 88 MCG Tablet PO (05:35)
[2023-04-23 06:56] LABS: Anion Gap 5 (5-15); BUN 13 mg/dL (7-18); BUN/Creat Ratio 14.2 RATIO (10-20); Calcium,Total 7.5 mg/dL (8.5-10.1); Chloride 110 mmol/L (98-107); Creatinine, Serum 0.92 mg/dL (0.55-1.02); EST Glomerular Filtration Rate 62 mL/min (>60); Est Glom Filt Rate - Afr Amer 76 mL/min (>60); Estimated Creatinine Clearance 42.42 ml/min; Glucose 105 mg/dL (74-106); Potassium 3.3 mmol/L (3.5-5.1); Sodium Level 141 mmol/L (136-145)
[2023-04-23] MEDS: AMOXICILLIN 500 MG CAPSULE 1000 MG PO ×2 (09:16→21:40)
[2023-04-23] MEDS: Pantoprazole Sodium 40 MG Tablet PO ×2 (09:16→21:39)
[2023-04-23] MEDS: Ascorbic Acid 500 MG Tablet PO (09:17)
[2023-04-23] MEDS: Aspirin E.C. 81 MG Tablet PO (09:17)
[2023-04-23] MEDS: Cholecalciferol (Vit D3) 125 MCG CAPSULE (5,000 UNITS) PO (09:17)
[2023-04-23] MEDS: Iron Polysaccharide Complex 150 MG CAPSULE PO (09:17)
[2023-04-23] MEDS: TAFAMIDIS 61 MG CAPSULE PO (09:18)
[2023-04-23] MEDS: Potassium Chloride Oral Tablet 20 MEQ 40 MEQ PO ×2 (09:29→18:05)
[2023-04-23 09:30] VITALS: BP 154/65; PULSE 78
[2023-04-23] MEDS: Metoprolol(XL)Succ 25 MG Tablet 12.5 MG PO (09:30)
[2023-04-23 09:34] VITALS: BP 154/65; PULSE 78; RESP 16; O2SAT 96
--- NOTE | 2023-04-23 09:49 | NURSING ---
Offered covid vaccine, VIS provided. Patient refuses at this time.
--- NOTE | 2023-04-23 11:02 | NURSING ---
Discussed cardiology follow-up on 04/25/23 with patient and family. They had already called the office and had cancelled for now, will re-schedule after she's DC'd from TCU. Also clarified code status with her. She confirms she wants to be full code.
--- NOTE | 2023-04-23 12:13 | NURSING ---
Wick And Base Assembler Note; Activity Asset: Earnestine Arndt is independent in her choice of daily activities. Her and family will visit daily and bring her items from home she may want. She will read, watch tv, work on word puzzles and her machine tech from will bring her Communion. She stated she welcomes visits from both our Marine Mechanic and therapy dog when available. Staff will remind her of daily activities and respect her right to say no.
[2023-04-23 14:34] VITALS: TEMP 36.5
[2023-04-23] MEDS: Ensure Plus High Protein 120 ML LIQUID PO (18:02)
--- NOTE | 2023-04-23 18:21 | NURSING ---
new orders today from Dr. Avery: - increased potassium supplement to 40mEq BID d/t K level of 3.3 this morning -discontinued melatonin, gave order for PRN Doxapin per pt request r/t insomnia. - Ensure TID Pt's , Pantera present at bedside for visit and updated on new orders. Pt and family in agreement with plan of care.
[2023-04-23] MEDS: Doxepin Hydrochloride 10 MG Capsule PO (18:49)
[2023-04-23] MEDS: Atorvastatin Calcium 10 MG Tablet PO (21:40)
[2023-04-23] MEDS: Gabapentin 300 MG Capsule PO (21:40)
[2023-04-23 23:00] VITALS: PULSE 75; RESP 16; O2SAT 97
--- NOTE | 2023-04-24 01:53 | NURSING ---
c/o difficulty muffled hearing, states sounds like I am in a tunnel , reports started a few days ago . Also reports trouble concentrating often and more forgetful lately . Pt. also requesting if Doxepin dose can be increased, stating current dose not effective. Patient A&Ox3. Able to voice needs. Written communication left for Dr. Avery regarding above information/patient requests.
[2023-04-24 06:11] LABS: Anion Gap 5 (5-15); BUN 10 mg/dL (7-18); Calcium,Total 7.1 mg/dL (8.5-10.1); Chloride 107 mmol/L (98-107); Creatinine, Serum 0.84 mg/dL (0.55-1.02); EST Glomerular Filtration Rate 69 mL/min (>60); Est Glom Filt Rate - Afr Amer 84 mL/min (>60); Estimated Creatinine Clearance 46.46 ml/min; Glucose 99 mg/dL (74-106); Potassium 3.5 mmol/L (3.5-5.1); Sodium Level 138 mmol/L (136-145)
[2023-04-24] MEDS: Furosemide 20 MG Tablet PO ×2 (06:53→13:12)
[2023-04-24] MEDS: Acyclovir 200 MG Capsule PO ×5 (06:53→21:00)
[2023-04-24] MEDS: Levothyroxine 88 MCG Tablet PO (06:53)
[2023-04-24] MEDS: NYSTATIN 500,000 UNIT/5 ML UDC 500000 UNIT PO ×3 (06:53→17:19)
[2023-04-24] MEDS: Arthritis Pain Compound 60 CLICK TUBE TOPICAL ×4 (06:57→21:00)
[2023-04-24] MEDS: Ensure Plus High Protein 120 ML LIQUID PO ×3 (09:22→17:19)
[2023-04-24] MEDS: Potassium Chloride Oral Tablet 20 MEQ 40 MEQ PO ×2 (09:23→17:18)
[2023-04-24] MEDS: Aspirin E.C. 81 MG Tablet PO (09:23)
[2023-04-24] MEDS: Calcium Carbonate 500 MG Tablet PO ×2 (09:24→17:19)
[2023-04-24] MEDS: AMOXICILLIN 500 MG CAPSULE 1000 MG PO ×2 (09:24→20:59)
[2023-04-24] MEDS: Iron Polysaccharide Complex 150 MG CAPSULE PO (09:24)
[2023-04-24 09:25] VITALS: BP 137/75; PULSE 86
[2023-04-24] MEDS: Pantoprazole Sodium 40 MG Tablet PO ×2 (09:25→21:00)
[2023-04-24] MEDS: Metoprolol(XL)Succ 25 MG Tablet 12.5 MG PO (09:25)
[2023-04-24] MEDS: Cholecalciferol (Vit D3) 125 MCG CAPSULE (5,000 UNITS) PO (09:28)
[2023-04-24] MEDS: TAFAMIDIS 61 MG CAPSULE PO (09:28)
[2023-04-24] MEDS: Ascorbic Acid 500 MG Tablet PO (09:28)
[2023-04-24 10:00] VITALS: PULSE 86; RESP 16; O2SAT 98
[2023-04-24 11:28] VITALS: BMI 21.8
[2023-04-24 14:01] VITALS: BP 142/75; PULSE 76; RESP 14; TEMP 36.4; O2SAT 96
--- NOTE | 2023-04-24 14:13 | CASEMGMT ---
Addendum entered by Mame Velasquez 04/24/23 15:37: Social Work: Additional information: Patient verified Full Code with SW. LEILANI Ayala Original Note: Social Work: Met with pt. to complete initial assessment. Introduced self and role. Verified and updated contacts. Educated to Medicare benefit and co-pay coverage. Pt reported she would like a new walker, walker is over five years old. Pt's goal is to return home with spouse. Met with and daughter who were waiting to visit patient, updated contacts and confirmed with to bring in Advance Directives. SW to continue to follow up for DC planning including referral for new walker. LEILANI Ayala
--- NOTE | 2023-04-24 16:06 | CHAPLAIN ---
Type of Pastoral Visit _x__ Initial Visit ___ Follow-up Visit ___ On-call Visit ___ General Patient Visit ___ Spiritual Assessment ___ Family Conference ___ Bereavement ___ Rapid Response ___ Code Blue ___ Other (describe below) Pastoral Care Referral From _x__ Patient ___ Family ___ Nurse ___ Physician ___ Wheelchair Van Operator First Responder ___ Shallot Packer ___ Other (describe below) Sacrament/Intervention ___ Active listening ___ Anointing ___ Adventism ___ Bereavement ___ Communion ___ Christal exploration ___ ___ Life review ___ Prayer ___ Reconciliation ___ Sacrament of Sick ___ Supportive presence ___ Wedding ___ Other (describe below) Pastoral Comments patient is asleep and did not awaken to her name; calling card is left on her tray
--- NOTE | 2023-04-24 19:35 | PCA ---
STRINGING MACHINE TENDER helped reposition patient in bed at this time. Offered to help patient get cleaned up for bed and patient stated that they got washed up earlier today and it was not necessary to clean up again.
[2023-04-24] MEDS: Atorvastatin Calcium 10 MG Tablet PO (21:00)
[2023-04-24] MEDS: Doxepin Hcl 25 MG Capsule PO (21:00)
[2023-04-24] MEDS: Gabapentin 300 MG Capsule PO (21:00)
[2023-04-24] MEDS: Carbamide Peroxide 15 ML Bottle 5 DRP OTIC (21:09)
[2023-04-25] MEDS: Furosemide 20 MG Tablet PO ×2 (05:52→13:25)
[2023-04-25] MEDS: Acyclovir 200 MG Capsule PO ×5 (05:52→20:11)
[2023-04-25] MEDS: Levothyroxine 88 MCG Tablet PO (05:52)
[2023-04-25] MEDS: Arthritis Pain Compound 60 CLICK TUBE TOPICAL ×3 (05:52→18:01)
[2023-04-25 06:00] LABS: Anion Gap 5 (5-15); BUN 11 mg/dL (7-18); BUN/Creat Ratio 13.7 RATIO (10-20); Calcium,Total 7.4 mg/dL (8.5-10.1); Chloride 107 mmol/L (98-107); EST Glomerular Filtration Rate 73 mL/min (>60); Est Glom Filt Rate - Afr Amer 88 mL/min (>60); Estimated Creatinine Clearance 48.79 ml/min; Glucose 104 mg/dL (74-106); Potassium 3.6 mmol/L (3.5-5.1); Sodium Level 138 mmol/L (136-145)
[2023-04-25] MEDS: Acetaminophen 500 MG Tablet 1000 MG PO ×2 (06:00→13:29)
[2023-04-25] MEDS: Potassium Chloride Oral Tablet 20 MEQ 40 MEQ PO ×2 (09:20→18:01)
[2023-04-25] MEDS: AMOXICILLIN 500 MG CAPSULE 1000 MG PO ×2 (09:22→20:12)
[2023-04-25] MEDS: Calcium Carbonate 500 MG Tablet PO ×2 (09:22→18:03)
[2023-04-25] MEDS: Iron Polysaccharide Complex 150 MG CAPSULE PO (09:22)
[2023-04-25] MEDS: Aspirin E.C. 81 MG Tablet PO (09:22)
[2023-04-25 09:23] VITALS: BP 132/63; PULSE 83
[2023-04-25] MEDS: Metoprolol(XL)Succ 25 MG Tablet 12.5 MG PO (09:23)
[2023-04-25] MEDS: Pantoprazole Sodium 40 MG Tablet PO ×2 (09:23→20:12)
[2023-04-25] MEDS: Ascorbic Acid 500 MG Tablet PO (09:25)
[2023-04-25] MEDS: Cholecalciferol (Vit D3) 125 MCG CAPSULE (5,000 UNITS) PO (09:25)
[2023-04-25] MEDS: TAFAMIDIS 61 MG CAPSULE PO (09:26)
[2023-04-25 09:35] VITALS: BP 132/63; PULSE 83
--- NOTE | 2023-04-25 11:31 | NURSING ---
CALLED [facility] AND TALKED TO A DAMON. HAVING HER CHECK TO SEE IF WE COULD TAKE PT SUTURES OUT HERE AND IF SHE WOULD LIKE MORE X RAYS AND TO FAX THEM OVER TO THE PA. DAMON STATED SHE WOULD CHECK WITH [facility] AND GAVE [phone]. SHE ALSO STATED FAMILY CANCELED THE APPOINTMENT FOR TODAY AND RESCHEDULED FOR May. THIS NURSE WENT TO PT ROOM AND TALKED TO AND STATED HE WANTED THAT APPOINTMENT ALSO CANCELED DUE TO CANT TAKE PT UP TO CORNING. BACK ON PHONE WITH DAMON AND TOLD HER PT WISHES TO CANCEL THAT APPOINTMENT ALSO. SO SHE DID AND WILL CALL BACK TO LET US KNOW IF ITS OK TO TAKE THE SUTURES OUT AND XRAYS OF SHOULDER. FAMILY ALSO ASKED THIS NURSE ABOUT PT INTAKE AND WHAT CALORIES SHE IS GETTING. CALLED TIERA FROM DIETARY TO TALK TO FAMILY. RN AWARE.
[2023-04-25] MEDS: Ensure Plus High Protein 120 ML LIQUID PO ×2 (11:58→18:04)
[2023-04-25] MEDS: Nystatin Powder 15gm Bottle 1 APPLIC TOPICAL ×2 (13:24→20:16)
[2023-04-25] MEDS: Menthol/Lanolin/Calamine/Znox 113 GM Tube 1 APPLIC TOPICAL ×2 (13:29→20:17)
--- NOTE | 2023-04-25 14:45 | PHA.CONS_ITS ---
Documented by User: Teresita Sanabria 04/25/23 15:37 TCU RX Drug Regimen Review Subjective/Objective Subjective/Objective: Subjective: TCU Admission. 82 YOF hospitalized for septic arthritis left shoulder, s/p debridement, strep A bacteremia, complicated by bleeding duodenal ulcer, acute kidney injury, transaminitis, thrush, oral hsv outbreak. Admitted to TCU with debility for strengthening and rehabilitation. Objective: Allergies Iodinated Contrast Media [Iodinated Contrast- Oral and IV Dye] Allergy (Severe, Verified 04/03/23 15:19) Hives iodine Allergy (Verified 04/03/23 15:19) Anaphylaxis Current Medications Generic Name Dose Route Start Last Admin Trade Name Freq PRN Reason Stop Dose Admin Acetaminophen 1,000 mg 04/20/23 22:31 04/25/23 13:29 Acetaminophen 500 Mg Tablet PO 1,000 mg Q6H PRN PRN Administration Pain Score 1-10 Acyclovir 200 mg 04/20/23 22:00 04/25/23 13:25 Acyclovir 200 Mg Capsule PO 04/27/23 22:01 200 mg 5X/DAY STEF Administration Amoxicillin 1,000 mg 04/20/23 22:00 04/25/23 09:22 Amoxicillin 500 Mg Capsule PO 05/04/23 22:01 1,000 mg BID STEF Administration Ascorbic Acid 500 mg 04/22/23 10:00 04/25/23 09:25 Ascorbic Acid 500 Mg Tablet PO 500 mg 1000 STEF Administration Aspirin 81 mg 04/21/23 08:00 04/25/23 09:22 Aspirin E.C. 81 Mg Tablet PO 81 mg DAILYCM STEF Administration Atorvastatin Calcium 10 mg 04/20/23 22:00 04/24/23 21:00 Atorvastatin Calcium 10 Mg Tablet PO 10 mg 2200 STEF Administration Calamine/Phenol 1 applic 04/25/23 10:00 04/25/23 13:29 Menthol/Lanolin/Calamine/Znox 113 Gm Tube TOPICAL 1 applic BID STEF Administration Protocol Calcium Carbonate 500 mg 04/24/23 08:00 04/25/23 09:22 Calcium Carbonate 500 Mg Tablet PO 500 mg BIDCM STEF Administration Cholecalciferol 125 mcg 04/21/23 10:00 04/25/23 09:25 Cholecalciferol (Vit D3) 125 Mcg Capsule (5,000 Units) PO 125 mcg DAILY STEF Administration Compound Med 2 click 04/21/23 12:00 04/25/23 13:22 Arthritis Pain Compound 60 Click Tube TOPICAL 2 click 4X/DAY STEF Administration Doxepin HCl 25 mg 04/24/23 22:00 04/24/23 21:00 Doxepin Hcl 25 Mg Capsule PO 25 mg QHS PRN Administration INSOMNIA Furosemide 20 mg 04/22/23 06:00 04/25/23 13:25 Furosemide 20 Mg Tablet PO 20 mg BIDLX STEF Administration Gabapentin 300 mg 04/20/23 22:00 04/24/23 21:00 Gabapentin 300 Mg Capsule PO 10/16/23 22:01 300 mg QHS STEF Administration Levothyroxine Sodium 88 mcg 04/21/23 06:00 04/25/23 05:52 Levothyroxine 88 Mcg Tablet PO 88 mcg 0600 STEF Administration Lidocaine/Diphenhydr/Alum/Mg/Simeth 5 ml 04/20/23 21:27 Bmx Liquid 180 Ml PO Q4H PRN PRN mouth pain Metoprolol Succinate 12.5 mg 04/21/23 10:00 04/25/23 09:23 Metoprolol(Xl)Succ 25 Mg Tablet PO 12.5 mg DAILY [facility] Administration Protocol Nutritional Formula (Lactose Free) 120 ml 04/23/23 17:45 04/25/23 11:58 Ensure Plus High Protein 120 Ml Liquid PO 120 ml TIDCM [facility] Administration Nystatin 1 applic 04/25/23 10:00 04/25/23 13:24 Nystatin Powder 15gm Bottle TOPICAL 1 applic BID [facility] Administration Protocol Ondansetron HCl 4 mg 04/20/23 21:32 Ondansetron Odt 4 Mg Tablet PO Q8H PRN PRN Nausea Pantoprazole Sodium 40 mg 04/20/23 22:00 04/25/23 09:23 Pantoprazole Sodium 40 Mg Tablet PO 40 mg BID STEF Administration Polyethylene Glycol 17 gm 04/21/23 10:40 Polyethylene Glycol 3350 17 Gm Packet PO DAILY PRN Constipation Polysaccharide Iron Complex 150 mg 04/21/23 11:15 04/25/23 09:22 Iron Polysaccharide Complex 150 Mg Capsule PO 150 mg DAILY STEF Administration Potassium Chloride 40 meq 04/23/23 08:00 04/25/23 09:20 Potassium Chloride Oral Tablet 20 Meq PO 40 meq BIDCM [facility] Administration Senna/Docusate Sodium 1 tablet 04/21/23 10:40 Senna/Docusate Sodium 1 Tablet PO BID PRN Constipation Throat Lozenges 1 lozenge 04/20/23 21:27 Benzocaine/Menthol 1 Lozenge MUCOUS MEM Q2H PRN PRN SORE THROAT Tuberculin PPD 0.1 ml 04/28/23 10:00 Tuberculin,Purif.Prot.Deriv. 50 Tu/Ml Vial ID 04/28/23 10:01 X1 ONE Problem List (Updated 04/20/23 @ 22:[address] 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 (Acute) Thrush (Acute) Upper GI bleed (Acute) Bleeding duodenal ulcer (Acute) Acute diverticulitis (Acute) Streptococcal bacteremia (Acute) Septic arthritis of shoulder, left (Acute) Sepsis (Acute) Debility (Acute) Hyperlipidemia (Chronic) Hypothyroidism (Chronic) Vital Signs Temp Pulse Resp BP Pulse Ox O2 Del Method 97.5 F L 83 14 132/63 H 96 Room Air 04/24/23 14:01 04/25/23 09:35 04/24/23 14:01 04/25/23 09:35 04/24/23 14:01 04/24/23 14:01 Oxygen Delivery Method Room Air Weight: 59.466 kg Body Mass Index (BMI) 21.8 Sodium 138 mmol/L (136-145) 04/25/23 05:13 Potassium 3.6 mmol/L (3.5-5.1) 04/25/23 05:13 Chloride 107 mmol/L (98-107) 04/25/23 05:13 Carbon Dioxide 26.0 mmol/L (21.0-32.0) 04/25/23 05:13 Anion Gap 5 (5-15) 04/25/23 05:13 BUN 11 mg/dL (7-18) 04/25/23 05:13 Creatinine 0.80 mg/dL (0.55-1.02) 04/25/23 05:13 Est GFR (MDRD) Af Amer 88 mL/min (>60) 04/25/23 05:13 Est GFR (MDRD) Non-Af 73 mL/min (>60) 04/25/23 05:13 BUN/Creatinine Ratio 13.7 RATIO (10-20) 04/25/23 05:13 Glucose 104 mg/dL (74-106) 04/25/23 05:13 Assessment/Plan: 1. Pain: acetaminophen 1000mg PO Q6H PRN pain 1-10 and arthritis pain compound 2 clicks topical 4x/day. Resident has had 3 doses of acetaminophen for pain of 8 and 9 in the neck and back respectively. Please continue to monitor for increased pain, PRN usage and rash. 2. Bowel: Miralax 17gm PO daily PRN constipation and senna/docusate 1T PO BID. Resident has not had any PRN doses of Miralax. Please continue to monitor for constipation and PRN usage. Last documented bowel movement 04/23/23. 3. Oral HSV: acyclovir 200mg PO 5x/day thru 04/27/23, Cepacol 1 lozenge MM Q2H PRN sore throat and BMX 5mL PO Q4H PRN mouth pain. Resident has not had any Cepacol or BMX doses. Please continue to monitor for improvement in lesions, renal function and PRN usage. 4. Septic left shoulder/Group A strep bacteremia: amoxicillin 1000mg PO BID thru 05/04/23. Please continue to monitor for S/S of infection, diarrhea and renal function. 5. CAD: metoprolol succinate 12.5mg PO daily and aspirin 81mg PO daily. Please continue to monitor BP (last 132/63), HR (last 83), S/S of bleeding and hem oglobin (last 8.8g/dL). 6. Hyperlipidemia: atorvastatin 10mg PO QHS. Please consider ordering a lipid panel as the last lipid panel is from 2018. Thanks. Please continue to monitor LFTs (last 04/04/23) and muscle pain. 7. Hypothyroidism: levothyroxine 88mcg PO daily. Please continue to monitor TSH (last 02/16/23), T4 (last 02/16/23) and S/S of hypo/hyperthyroidism. 8. Duodenal ulcer: pantoprazole 40mg PO BID. Please continue to monitor for stomach pain, bleeding, diarrhea (BEERs medication) and magnesium (last 05/31/22). 9. Cardiac amyloidosis: Tafamidis 61mg PO daily. Please continue to monitor. 10. Hypokalemia: potassium chloride 40mEq PO BIDCM. Please continue to monitor potassium levels (last 3.6mmol/L). 11. Nausea: ondansetron 4mg PO Q8H PRN nausea. Resident has not had any doses. Jeffery francaflip continue to monitor for nausea and PRN usage. 12. Vitamin D deficiency: cholecalciferol 125mcg PO daily. Resident does not have a vitamin D level in the chart. Please consider ordering a vitamin D level if clinically appropriate. 13. Iron deficiency (based on hemoglobin 8.8g/dL): Ferrex 150mg PO daily and ascorbic acid 500mg PO daily. Please continue to monitor hemoglobin, constipation and dark stools. Resident does not have iron studies in chart. Please consider ordering iron studies is clinically appropriate. Thanks. 14. Hypocalcemia (based on calcium of 7.4mg/dL): calcium carbonate 500mg PO BIDCM. Please continue to monitor calcium levels. Assessment/Plan for indications treated with psychotropic medications: 1. Neuropathic pain: gabapentin 300mg PO QHS. GDR not appropriate as this medication is being used for neuropathic pain. Please continue to monitor for pain, confusion, renal function, 2. Insomnia: doxepin 25mg PO QHS PRN insomnia. Resident has had 1 dose so far (also had one 10mg dose). Failed scheduled melatonin 3mg QHS. GDR not appropriate as this medication was just started. Please continue to monitor for excessive drowsiness, anticholinergic side effects (BEERs medications), BP (BEERs medication for orthostatic hypotension), dementia/delirium (BEERs medication), falls/fractures (BEERs medication). Medical chart and medication regimen reviewed. The following medication irregularities or issues were identified: 1. Atorvastatin 10mg PO QHS. Please consider ordering a lipid panel as the last lipid panel is from 2018. Thanks. 2. Cholecalciferol 125mcg PO daily. Resident does not have a vitamin D level in the chart. Please consider ordering a vitamin D level if clinically appropriate. 3. Ferrex 150mg PO daily. Resident does not have iron studies in chart. Please consider ordering iron studies is clinically appropriate. Thanks. 4. Furosemide 20mg PO BIDLX. I did not see a documented indication for this medication. Please consider adding the indication. Please continue to monitor electrolytes, renal function and edema. Documented by User: Dr. David Avery MD 04/25/23 15:24 TCU RX Drug Regimen Review Date Date of Note:: 04/25/23 Provider Comments Provider responsibility Provider Comments to Recommendations by Pharmacy: Agree
[2023-04-25 15:55] VITALS: BP 134/64; PULSE 78; RESP 18; TEMP 37.1; O2SAT 95
--- NOTE | 2023-04-25 16:57 | NURSING ---
Addendum entered by Viviane Dalal 04/27/23 12:35: Call from Damon in office that images were black, unable to be seen clearly. Send via e-mail while on phone with her, she confirmed she received them and can clearly be seen. Addendum entered by Viviane Dalal 04/27/23 12:28: Call from Damon at ortho office. Asked that images be sent by fax or text. Images faxed to [phone]. Addendum entered by Viviane Dalal 04/26/23 10:10: Pictures of left shoulder taken and e-mailed to PA. Original Note: DAMON FROM [facility] CALLED BACK AND [facility] WANTS A PICTURE TAKEN AND SENT TO THEM BEFORE ANY DECISIONS OF SUTURES BEING TAKEN OUT. WILL SEND TOMORROW. RN AND FAMILY AWARE.
[2023-04-25] MEDS: Mirtazapine 15 MG Tablet 7.5 MG PO (20:11)
[2023-04-25] MEDS: Gabapentin 300 MG Capsule PO (20:11)
[2023-04-25] MEDS: Atorvastatin Calcium 10 MG Tablet PO (20:12)
[2023-04-25] MEDS: Doxepin Hcl 25 MG Capsule PO (20:40)
[2023-04-26] MEDS: Levothyroxine 88 MCG Tablet PO (05:22)
[2023-04-26] MEDS: Furosemide 20 MG Tablet PO ×2 (05:22→13:01)
[2023-04-26] MEDS: Acyclovir 200 MG Capsule PO ×5 (05:23→20:21)
[2023-04-26 06:30] LABS: Anion Gap 4 (5-15); BUN 13 mg/dL (7-18); BUN/Creat Ratio 14.5 RATIO (10-20); Calcium,Total 7.9 mg/dL (8.5-10.1); Chloride 109 mmol/L (98-107); Cholesterol 76 mg/dL (200); EST Glomerular Filtration Rate 64 mL/min (>60); Est Glom Filt Rate - Afr Amer 77 mL/min (>60); Estimated Creatinine Clearance 43.37 ml/min; Glucose 103 mg/dL (74-106); High Density Lipoprotein 29 mg/dL; Potassium 3.8 mmol/L (3.5-5.1); Sodium Level 139 mmol/L (136-145); Triglycerides 75 mg/dL; Very Low Density Lipoprotein 15 mg/dL (5-40)
[2023-04-26] MEDS: Ensure Plus High Protein 120 ML LIQUID PO (09:43)
[2023-04-26] MEDS: Aspirin E.C. 81 MG Tablet PO (09:44)
[2023-04-26] MEDS: Potassium Chloride Oral Tablet 20 MEQ 40 MEQ PO ×2 (09:46→17:11)
[2023-04-26] MEDS: Calcium Carbonate 500 MG Tablet PO ×2 (09:47→17:11)
[2023-04-26] MEDS: BENZOCAINE/MENTHOL 1 LOZENGE MUCOUS MEM (09:48)
[2023-04-26] MEDS: Nystatin Powder 15gm Bottle 1 APPLIC TOPICAL ×2 (10:13→20:28)
[2023-04-26] MEDS: Menthol/Lanolin/Calamine/Znox 113 GM Tube 1 APPLIC TOPICAL ×2 (10:13→20:28)
[2023-04-26 10:30] VITALS: BP 135/73; PULSE 94
[2023-04-26] MEDS: AMOXICILLIN 500 MG CAPSULE 1000 MG PO ×2 (10:30→20:21)
[2023-04-26] MEDS: Ascorbic Acid 500 MG Tablet PO (10:30)
[2023-04-26] MEDS: Metoprolol(XL)Succ 25 MG Tablet 12.5 MG PO (10:30)
[2023-04-26] MEDS: Cholecalciferol (Vit D3) 125 MCG CAPSULE (5,000 UNITS) PO (10:30)
[2023-04-26] MEDS: Pantoprazole Sodium 40 MG Tablet PO ×2 (10:31→20:22)
[2023-04-26] MEDS: Iron Polysaccharide Complex 150 MG CAPSULE PO (10:31)
[2023-04-26] MEDS: TAFAMIDIS 61 MG CAPSULE PO (10:32)
[2023-04-26 10:47] VITALS: BP 135/73; PULSE 94
--- NOTE | 2023-04-26 11:02 | CASEMGMT ---
Social Work IDT met with patient, , son Devan and miller Rosas for care plan meeting. Discussed patient's progress in PT/OT/ST/SN. Educated to Medicare benefit and copay coverage. Pt's goal is to return home at [facility] with . Pt confirmed she does need a FWW at [place]. SW will coordinate needs at [place]. SW will continue to follow for DC planning. TERRENCE RatliffW
--- NOTE | 2023-04-26 11:03 | CASEMGMT ---
Social Work BIMS () and PHQ-2 () completed for MDS assessment. Carol Mathis MSW REFINING STILL OPERATOR
[2023-04-26] MEDS: Arthritis Pain Compound 60 CLICK TUBE TOPICAL ×2 (11:10→17:09)
[2023-04-26 13:07] VITALS: BP 126/75; PULSE 106; RESP 16; TEMP 37.1; O2SAT 96
[2023-04-26] MEDS: Doxepin Hcl 25 MG Capsule PO (20:21)
[2023-04-26] MEDS: Mirtazapine 15 MG Tablet 7.5 MG PO (20:21)
[2023-04-26] MEDS: Atorvastatin Calcium 10 MG Tablet PO (20:21)
[2023-04-26] MEDS: Gabapentin 300 MG Capsule PO (20:22)
[2023-04-27] MEDS: BENZOCAINE/MENTHOL 1 LOZENGE MUCOUS MEM ×2 (05:20→15:33)
[2023-04-27] MEDS: Furosemide 20 MG Tablet PO ×2 (05:20→13:32)
[2023-04-27] MEDS: Acyclovir 200 MG Capsule PO ×5 (05:20→20:26)
[2023-04-27] MEDS: Levothyroxine 88 MCG Tablet PO (05:20)
[2023-04-27] MEDS: Aspirin E.C. 81 MG Tablet PO (08:46)
[2023-04-27] MEDS: Calcium Carbonate 500 MG Tablet PO ×2 (08:46→17:36)
[2023-04-27] MEDS: Potassium Chloride Oral Tablet 20 MEQ 40 MEQ PO ×2 (08:46→17:31)
[2023-04-27] MEDS: AMOXICILLIN 500 MG CAPSULE 1000 MG PO ×2 (08:46→20:25)
[2023-04-27] MEDS: Menthol/Lanolin/Calamine/Znox 113 GM Tube 1 APPLIC TOPICAL ×2 (08:47→20:26)
[2023-04-27] MEDS: Nystatin Powder 15gm Bottle 1 APPLIC TOPICAL ×2 (08:48→20:26)
[2023-04-27] MEDS: Iron Polysaccharide Complex 150 MG CAPSULE PO (08:48)
[2023-04-27 08:49] VITALS: BP 122/79; PULSE 98
[2023-04-27] MEDS: Ascorbic Acid 500 MG Tablet PO (08:49)
[2023-04-27] MEDS: Pantoprazole Sodium 40 MG Tablet PO ×2 (08:49→20:26)
[2023-04-27] MEDS: Metoprolol(XL)Succ 25 MG Tablet 12.5 MG PO (08:49)
[2023-04-27] MEDS: Cholecalciferol (Vit D3) 125 MCG CAPSULE (5,000 UNITS) PO (08:50)
[2023-04-27] MEDS: TAFAMIDIS 61 MG CAPSULE PO (08:50)
[2023-04-27] MEDS: Ensure Plus High Protein 120 ML LIQUID PO (08:54)
--- NOTE | 2023-04-27 09:15 | NURSING ---
Director Media Note; MDS for 04/27/2023 Complete
[2023-04-27] MEDS: Arthritis Pain Compound 60 CLICK TUBE TOPICAL ×3 (12:31→20:25)
[2023-04-27 13:57] LABS: Hematocrit 33.4 % (37-47); Hemoglobin 10.5 g/dL (12.0-15.0)
--- NOTE | 2023-04-27 14:27 | RAD_ITS ---
INDICATION: Neck pain EXAMINATION/TECHNIQUE: X-RAY - XR Spine Cervical 3 Views COMPARISON: None. FINDINGS: VERTEBRAE: Preserved vertebral body height. No fracture. No spondylolisthesis. Preservation of the normal cervical lordosis. C5-6 disc space fusion device. DISCS: Loss of disc space height C6-7. NECK SOFT TISSUES: No prevertebral soft tissue widening. Surgical clips in the right side of the neck. LUNG APICES: Clear. RAD/Cerv Spine 2 or 3 Views IMPRESSION: Degenerative disc disease lower cervical spine. Postsurgical changes from C5-6 fusion with hardware.. Electronically Signed: Costa Stewart MD at 17:55 EST ,
[2023-04-27 14:44] VITALS: BP 131/67; PULSE 94; RESP 16; TEMP 36.7; O2SAT 98
[2023-04-27] MEDS: MethylPREDNISolone DosePak 4 MG BOX PO ×2 (17:31→20:25)
[2023-04-27 20:15] VITALS: PULSE 82; RESP 18; O2SAT 98
[2023-04-27] MEDS: Mirtazapine 15 MG Tablet 7.5 MG PO (20:24)
[2023-04-27] MEDS: Doxepin Hcl 25 MG Capsule PO (20:24)
[2023-04-27] MEDS: Atorvastatin Calcium 10 MG Tablet PO (20:25)
[2023-04-27] MEDS: Gabapentin 300 MG Capsule PO (20:26)
[2023-04-28] MEDS: Furosemide 20 MG Tablet PO ×2 (06:23→13:50)
[2023-04-28] MEDS: Levothyroxine 88 MCG Tablet PO (06:23)
[2023-04-28] MEDS: Arthritis Pain Compound 60 CLICK TUBE TOPICAL ×3 (06:23→21:01)
[2023-04-28 06:35] VITALS: PULSE 83; RESP 16; O2SAT 97
[2023-04-28 08:04] LABS: Absolute Lymphocyte Count 0.94 X10^3/uL (0.83-4.51); Absolute Neutrophil Count 4.1 X10^3/uL (2.0-7.7); Basophil# 0.02 X10^3/uL; Basophil% 0.4 % (0-1); Hematocrit 33.7 % (37-47); Hemoglobin 10.3 g/dL (12.0-15.0); Lymphocyte # 0.94 X10^3/ul (0.83-4.51); Lymphocyte % 16.7 % (19-41); Mean Corp Hgb Conc 30.6 g/dL (32-36); Mean Corpuscular Hgb 27.9 pg (27.0-32.0); Mean Corpuscular Volume 91.3 fL (81-99); Mean Platelet Vol. 9.7 fl (6.2-12.0); Monocyte# 0.54 X10^3/uL; Monocyte% 9.6 % (0-10); NRBC Flagged by Analyzer 0 % (0-5); Neutrophil # 4.06 X10^3/uL (2.7-7.7); Neutrophil % 72.2 % (47-70); Platelet Count 345 K/mm3 (150-450); RBC Distribution Width CV 15.6 % (11.6-14.6); RBC Distribution Width SD 51.2 fl (35.1-43.9); Red Blood Count 3.69 M/mm3 (4.2-5.4); White Blood Count 5.6 K/mm3 (4.4-11.0)
[2023-04-28 08:18] LABS: Anion Gap 5 (5-15); BUN 21 mg/dL (7-18); BUN/Creat Ratio 19.3 RATIO (10-20); Calcium,Total 8.7 mg/dL (8.5-10.1); Chloride 105 mmol/L (98-107); Creatinine, Serum 1.09 mg/dL (0.55-1.02); EST Glomerular Filtration Rate 51 mL/min (>60); Est Glom Filt Rate - Afr Amer 62 mL/min (>60); Estimated Creatinine Clearance 35.81 ml/min; Glucose 141 mg/dL (74-106); Potassium 4.2 mmol/L (3.5-5.1); Sodium Level 134 mmol/L (136-145)
[2023-04-28] MEDS: Potassium Chloride Oral Tablet 20 MEQ 40 MEQ PO ×2 (08:18→17:08)
[2023-04-28] MEDS: Calcium Carbonate 500 MG Tablet PO ×2 (08:18→17:08)
[2023-04-28] MEDS: Aspirin E.C. 81 MG Tablet PO (08:18)
[2023-04-28] MEDS: AMOXICILLIN 500 MG CAPSULE 1000 MG PO ×2 (08:18→21:00)
[2023-04-28] MEDS: Iron Polysaccharide Complex 150 MG CAPSULE PO (08:19)
[2023-04-28] MEDS: Nystatin Powder 15gm Bottle 1 APPLIC TOPICAL ×2 (08:19→21:03)
[2023-04-28] MEDS: Menthol/Lanolin/Calamine/Znox 113 GM Tube 1 APPLIC TOPICAL ×2 (08:19→21:02)
[2023-04-28] MEDS: Pantoprazole Sodium 40 MG Tablet PO ×2 (08:20→21:02)
[2023-04-28] MEDS: Ascorbic Acid 500 MG Tablet PO (08:20)
[2023-04-28] MEDS: Cholecalciferol (Vit D3) 125 MCG CAPSULE (5,000 UNITS) PO (08:20)
[2023-04-28] MEDS: TAFAMIDIS 61 MG CAPSULE PO (08:20)
[2023-04-28 08:23] VITALS: BP 114/66; PULSE 107
[2023-04-28] MEDS: Metoprolol(XL)Succ 25 MG Tablet 12.5 MG PO (08:23)
[2023-04-28] MEDS: MethylPREDNISolone DosePak 4 MG BOX PO ×4 (08:25→21:01)
[2023-04-28 09:42] VITALS: BP 114/66; PULSE 107
[2023-04-28] MEDS: Tuberculin,Purif.prot.deriv. 50 TU/ML Vial 0.100000000000000006 ML ID (10:12)
[2023-04-28 15:25] VITALS: BP 112/53; PULSE 79; RESP 16; TEMP 36.6; O2SAT 95
[2023-04-28] MEDS: Mirtazapine 15 MG Tablet 7.5 MG PO (20:59)
[2023-04-28] MEDS: Doxepin Hcl 25 MG Capsule PO (20:59)
[2023-04-28] MEDS: Atorvastatin Calcium 10 MG Tablet PO (21:01)
[2023-04-28] MEDS: Gabapentin 300 MG Capsule PO (21:02)
[2023-04-28] MEDS: Baclofen 10 MG Tablet 5 MG PO (21:04)
[2023-04-29] MEDS: Furosemide 20 MG Tablet PO ×2 (05:57→13:00)
[2023-04-29] MEDS: Arthritis Pain Compound 60 CLICK TUBE TOPICAL ×4 (05:57→21:22)
[2023-04-29] MEDS: Levothyroxine 88 MCG Tablet PO (05:58)
[2023-04-29] MEDS: Potassium Chloride Oral Tablet 20 MEQ 40 MEQ PO ×2 (08:30→16:22)
[2023-04-29] MEDS: Ensure Plus High Protein 120 ML LIQUID PO ×3 (08:30→17:08)
[2023-04-29] MEDS: Aspirin E.C. 81 MG Tablet PO (08:30)
[2023-04-29] MEDS: Calcium Carbonate 500 MG Tablet PO ×2 (08:33→16:21)
[2023-04-29] MEDS: AMOXICILLIN 500 MG CAPSULE 1000 MG PO ×2 (08:34→21:20)
[2023-04-29] MEDS: Menthol/Lanolin/Calamine/Znox 113 GM Tube 1 APPLIC TOPICAL ×2 (08:34→21:22)
[2023-04-29] MEDS: Iron Polysaccharide Complex 150 MG CAPSULE PO (08:34)
[2023-04-29 08:35] VITALS: BP 111/69; PULSE 101
[2023-04-29] MEDS: Nystatin Powder 15gm Bottle 1 APPLIC TOPICAL ×2 (08:35→21:22)
[2023-04-29] MEDS: Pantoprazole Sodium 40 MG Tablet PO ×2 (08:35→21:21)
[2023-04-29] MEDS: Metoprolol(XL)Succ 25 MG Tablet 12.5 MG PO (08:35)
[2023-04-29] MEDS: Cholecalciferol (Vit D3) 125 MCG CAPSULE (5,000 UNITS) PO (08:36)
[2023-04-29] MEDS: TAFAMIDIS 61 MG CAPSULE PO (08:36)
[2023-04-29] MEDS: Ascorbic Acid 500 MG Tablet PO (08:36)
[2023-04-29] MEDS: MethylPREDNISolone DosePak 4 MG BOX PO ×4 (08:42→21:18)
[2023-04-29 09:36] VITALS: BP 111/69; PULSE 101
[2023-04-29 15:00] VITALS: BP 118/76; PULSE 98; RESP 18; TEMP 36.7; O2SAT 97
[2023-04-29] MEDS: Baclofen 10 MG Tablet 5 MG PO (21:19)
[2023-04-29] MEDS: Atorvastatin Calcium 10 MG Tablet PO (21:19)
[2023-04-29] MEDS: Mirtazapine 15 MG Tablet 7.5 MG PO (21:20)
[2023-04-29] MEDS: Gabapentin 300 MG Capsule PO (21:21)
[2023-04-29] MEDS: Doxepin Hcl 25 MG Capsule PO (21:21)
[2023-04-29 21:40] VITALS: O2SAT 97
[2023-04-29] MEDS: Carbamide Peroxide 15 ML Bottle 5 DRP OTIC (22:11)
[2023-04-30] VITALS (8 sets, daily range): BP systolic 85–123; BP diastolic 43–71; PULSE 45–104; RESP 14–16; TEMP 36–36.7; O2SAT 96–100
[2023-04-30] MEDS: Levothyroxine 88 MCG Tablet PO (05:46)
[2023-04-30] MEDS: Furosemide 20 MG Tablet PO ×2 (05:46→13:16)
[2023-04-30] MEDS: Arthritis Pain Compound 60 CLICK TUBE TOPICAL ×2 (05:46→17:55)
[2023-04-30 05:49] LABS: Hematocrit 31.4 % (37-47); Hemoglobin 9.7 g/dL (12.0-15.0)
[2023-04-30] MEDS: BMX LIQUID 180 ML PO (06:40)
[2023-04-30] MEDS: Ensure Plus High Protein 120 ML LIQUID PO ×3 (09:08→17:50)
[2023-04-30] MEDS: MethylPREDNISolone DosePak 4 MG BOX PO ×2 (09:11→11:28)
[2023-04-30] MEDS: Potassium Chloride Oral Tablet 20 MEQ 40 MEQ PO ×2 (09:11→17:51)
[2023-04-30] MEDS: Calcium Carbonate 500 MG Tablet PO ×2 (09:13→17:54)
[2023-04-30] MEDS: Iron Polysaccharide Complex 150 MG CAPSULE PO (09:13)
[2023-04-30] MEDS: Aspirin E.C. 81 MG Tablet PO (09:13)
[2023-04-30] MEDS: Pantoprazole Sodium 40 MG Tablet PO ×2 (09:13→20:37)
[2023-04-30] MEDS: Ascorbic Acid 500 MG Tablet PO (09:14)
[2023-04-30] MEDS: Metoprolol(XL)Succ 25 MG Tablet 12.5 MG PO (09:14)
[2023-04-30] MEDS: Nystatin Powder 15gm Bottle 1 APPLIC TOPICAL ×2 (09:15→20:39)
[2023-04-30] MEDS: TAFAMIDIS 61 MG CAPSULE PO (09:17)
[2023-04-30] MEDS: Cholecalciferol (Vit D3) 125 MCG CAPSULE (5,000 UNITS) PO (09:17)
[2023-04-30] MEDS: Menthol/Lanolin/Calamine/Znox 113 GM Tube 1 APPLIC TOPICAL ×2 (09:19→20:38)
[2023-04-30] MEDS: Carbamide Peroxide 15 ML Bottle 5 DRP OTIC ×2 (09:26→20:38)
[2023-04-30] MEDS: AMOXICILLIN 500 MG CAPSULE 1000 MG PO ×2 (10:48→20:36)
[2023-04-30 15:55] LABS: Bedside Glucose 133 mg/dL (74-106)
[2023-04-30 16:04] LABS: Troponin-I HS 43 pg/mL (3.0-54.0)
--- NOTE | 2023-04-30 16:10 | NURSING ---
WALKING BACK FROM [facility]ICE,THERAPY STOPPED THIS NURSE AT THERAPY ROOM AND STATED PT WAS FEELING SOB WITH CHEST PAIN AND NAUSEATED. VITALS DONE, PT STATED SHE FELT OK TO TRANSFER FROM CHAIR TO WHEEL CHAIR. AFTER SITTING DOWN PT BECAME SHAKY AND STARTED LEANING SIDE WAYS TO THE RIGHT, EYES CLOSED. THIS NURSE STARTED TALKING TO PT AND PT OPENED EYES AND THIS NURSE ASKED PT WHERE SHE WAS AND WHAT WAS WRONG. PT STATED WHERE SHE WAS AND THAT SHE WAS LIGHT HEADED,SOB AND FELT NAUSEATED. THIS NURSE AND THERAPY TOOK PT BACK TO ROOM TRANSFERRED PT TO BED AND PT STARTED GETTING WORSE AND HAVING CHEST PAIN AGAIN AND THEN WOULD NOT ANSWER THIS NURSE. THIS NURSE PUSHED ASSIST BUTTON ON WALL AND CALLED FOR A SILVICULTURE PROFESSOR.
--- NOTE | 2023-04-30 16:43 | CHAPLAIN ---
Type of Pastoral Visit ___ Initial Visit ___ Follow-up Visit ___ On-call Visit ___ General Patient Visit ___ Spiritual Assessment ___ Family Conference ___ Bereavement _x__ Rapid Response ___ Code Blue ___ Other (describe below) Pastoral Care Referral From ___ Patient ___ Family ___ Nurse ___ Physician ___ Vegetable Preparer ___ Oil Burner Servicer And Installer _x__ Other (describe below) Sacrament/Intervention _x__ Active listening ___ Anointing ___ Orthodoxy ___ Bereavement ___ Communion _x__ Christal exploration ___ ___ Life review ___ Prayer ___ Reconciliation ___ Sacrament of Sick _x_ Supportive presence ___ Wedding ___ Other (describe below) Pastoral Comments came to room after rapid response was called for this patient; several family members are in the hallway; offer of support and family members are actively engaged in conversation with this line prep cook; family members explain pt's health situation and struggles of last few weeks; pt is of the [employer] christal and has had the Anointing of the Sick and visits from her priests; family has concerns for the health and viability of the patient and express their involvement in the health care and support of the pt; family would like the line prep cook to continue to be involved in spiritual care of the pt;
--- NOTE | 2023-04-30 16:48 | NURSING ---
troponin 43, within normal range
[2023-04-30] MEDS: Ondansetron ODT 4 MG Tablet PO (17:09)
--- NOTE | 2023-04-30 17:11 | NURSING ---
FAMILY CAME TO DESK AND STATED PT SAT UP IN BED AND FELT DIZZY AND NAUSEATED AGAIN. VITALS DONE AND PRN ZOFRAN GIVEN. WILL CONTINUE TO MONITOR.
--- NOTE | 2023-04-30 17:25 | NURSING ---
[facility] CALLED AND STATED THAT IT WAS OK TO REMOVE SUTURES TOMORROW 05/01/[address] STERI STRIPS. OK FOR PT TO SHOWER BUT NOT SUBMERGE SHOULDER FOR 6 WEEKS. X RAYS OK TO BE TAKEN AND SENT BACK TO [facility].
[2023-04-30 17:54] LABS: Hematocrit 34.3 % (37-47); Hemoglobin 10.7 g/dL (12.0-15.0); Mean Corp Hgb Conc 31.2 g/dL (32-36); Mean Corpuscular Hgb 28.5 pg (27.0-32.0); Mean Corpuscular Volume 91.2 fL (81-99); POSITIVE COUNT YES; POSITIVE MORPHOLOGY YES; Platelet Count 542 K/mm3 (150-450); RBC Distribution Width CV 16.3 % (11.6-14.6); Red Blood Count 3.76 M/mm3 (4.2-5.4); White Blood Count 12.8 K/mm3 (4.4-11.0)
[2023-04-30 17:58] LABS: Differential Indicated MANUAL DIFF
[2023-04-30 18:14] LABS: Troponin-I HS 45 pg/mL (3.0-54.0)
[2023-04-30 18:32] LABS: Lymphocyte 16 % (19-41); Monocyte 5 % (0-10); Neutrophil-Band 2 % (0-5); Neutrophil-Segmented 77 % (47-70); Total Cells Counted 100 (MANUAL DIFF)
[2023-04-30 18:33] LABS: Red Cell Morphology N CHROM NORMAL (NORM C&C)
[2023-04-30 18:34] LABS: Absolute Lymphocyte Count 2.05 X10^3/uL (0.83-4.51); Absolute Neutrophil Count 10.1 X10^3/uL (2.0-7.7); Anisocytosis 1+; Platelet Estimate MOD INC (ADEQ)
--- NOTE | 2023-04-30 19:00 | NURSING ---
AID ASKED THIS NURSE TO PT ROOM TO HELP GET PT OFF OF BED SIDE COMMODE DUE TO PT BEING DIZZY AND LIGHT HEADED AGAIN. GOT PT IN TO BED,PT ASKED FOR FAN. IN ROOM. PT RESTING. 10 MINS LATER PT FAMILY COMES TO THIS NURSE AND STATED PT IS THROWING UP. 100CC BROWN LIQUID AND FOOD FROM SUPPER. DR. MILLARD CALLED AND NEW ORDER FOR IV AND 1L BOLUS.
--- NOTE | 2023-04-30 19:00 | NURSING ---
PT C/O N/V, LIGHTHEADED, CLAMMY WHEN UP TO BSC. NEW ORDERS RECEIVED FROM DR MILLARD
[2023-04-30] MEDS: 0.9% Normal Saline (1000mL) 1,000 ML 999 ML IV (20:23)
[2023-04-30] MEDS: Baclofen 10 MG Tablet 5 MG PO (20:34)
[2023-04-30] MEDS: Doxepin Hcl 25 MG Capsule PO (20:35)
[2023-04-30] MEDS: Gabapentin 300 MG Capsule PO (20:35)
[2023-04-30] MEDS: Mirtazapine 15 MG Tablet 7.5 MG PO (20:36)
[2023-04-30] MEDS: Atorvastatin Calcium 10 MG Tablet PO (20:37)
[2023-04-30] MEDS: BENZOCAINE/MENTHOL 1 LOZENGE MUCOUS MEM (20:40)
[2023-04-30 22:09] LABS: Troponin-I HS 48 pg/mL (3.0-54.0)
[2023-05-01 05:50] LABS: Hematocrit 31.2 % (37-47); Hemoglobin 9.4 g/dL (12.0-15.0)
[2023-05-01] MEDS: Levothyroxine 88 MCG Tablet PO (05:55)
--- NOTE | 2023-05-01 08:19 | RAD_ITS ---
EXAM: XR LEFT SHOULDER COMPLETE, 2 OR MORE VIEWS CLINICAL INDICATION: pyogenic arthritis left shoulder -- 3V or more AP/TRUE AP/OTHER left TECHNIQUE: Two or more views of the left shoulder. COMPARISON: No relevant prior studies available. FINDINGS: BONES/JOINTS: No acute abnormality. SOFT TISSUES: Normal. No soft tissue swelling or gas. No radiopaque foreign body. RAD/Shoulder min 2 Views IMPRESSION: Intact left shoulder. Electronically Signed: Dayron Shaver MD at 16:24 EST ,
[2023-05-01 08:23] LABS: Bacteria 0 SEEN /hpf (None Seen); Mucous, Urine 0 SEEN /hpf (<or=2+); Squamous Epithelial Cells - UA 0 SEEN /hpf (5-10)
[2023-05-01] MEDS: Ensure Plus High Protein 120 ML LIQUID PO ×3 (08:25→17:28)
[2023-05-01] MEDS: Aspirin E.C. 81 MG Tablet PO (08:25)
[2023-05-01] MEDS: Potassium Chloride Oral Tablet 20 MEQ 40 MEQ PO ×2 (08:26→16:21)
[2023-05-01] MEDS: AMOXICILLIN 500 MG CAPSULE 1000 MG PO ×2 (08:27→21:08)
[2023-05-01] MEDS: Iron Polysaccharide Complex 150 MG CAPSULE PO (08:27)
[2023-05-01 08:28] VITALS: BP 120/55; PULSE 105
[2023-05-01] MEDS: Metoprolol(XL)Succ 25 MG Tablet 12.5 MG PO (08:28)
[2023-05-01] MEDS: Pantoprazole Sodium 40 MG Tablet PO ×2 (08:28→21:08)
[2023-05-01] MEDS: Ascorbic Acid 500 MG Tablet PO (08:29)
[2023-05-01] MEDS: TAFAMIDIS 61 MG CAPSULE PO (08:30)
[2023-05-01] MEDS: Cholecalciferol (Vit D3) 125 MCG CAPSULE (5,000 UNITS) PO (08:30)
[2023-05-01] MEDS: MethylPREDNISolone DosePak 4 MG BOX PO (08:32)
[2023-05-01] MEDS: Menthol/Lanolin/Calamine/Znox 113 GM Tube 1 APPLIC TOPICAL ×2 (08:32→21:13)
[2023-05-01] MEDS: Nystatin Powder 15gm Bottle 1 APPLIC TOPICAL ×2 (08:33→21:13)
[2023-05-01] MEDS: Carbamide Peroxide 15 ML Bottle 5 DRP OTIC ×2 (08:35→21:17)
[2023-05-01 08:57] LABS: Color, Urine Yellow (Yellow); Glucose, Dipstick Normal (Normal); Ketone-Dipstick Negative (Negative); Leukocyte Esterase-Dipstick 25 /ul (Negative); Nitrite-Dipstick Negative (Negative); Occult Blood-Urine 250 /ul (Negative); Protein-Dipstick 30 mg/dl (Negative); Specific Gravity, Urine 1.015 (1.002-1.030); Urine Bilirubin Dipstick Negative (Negative); Urine Clarity Sl. Cloudy (Clear); Urine Urobilinogen Normal (Normal)
[2023-05-01 09:06] LABS: Red Blood Cells-Urine 25-50 SEEN /hpf (0-5); White Blood Cells 0-5 SEEN /hpf (0-5); Yeast-Urine 2+ /hpf (None Seen)
[2023-05-01] MEDS: Calcium Carbonate 500 MG Tablet PO ×2 (09:49→16:22)
[2023-05-01 10:00] VITALS: RESP 16; O2SAT 95
[2023-05-01 10:23] VITALS: BP 120/55; PULSE 105
[2023-05-01 11:00] VITALS: BMI 20.5
[2023-05-01 11:03] VITALS: BP 114/70; BP 115/55; BP 116/67; PULSE 109; PULSE 120; PULSE 99
[2023-05-01] MEDS: Arthritis Pain Compound 60 CLICK TUBE TOPICAL ×3 (11:20→21:12)
[2023-05-01 12:14] LABS: Pathologist Review Reviewed
[2023-05-01 13:37] VITALS: BP 108/57; PULSE 93; RESP 18; TEMP 36.5; O2SAT 98
--- NOTE | 2023-05-01 13:47 | NURSING ---
Sutures removed per order, steri strips placed, no signs of infection noted at incision site
[2023-05-01] MEDS: Mirtazapine 15 MG Tablet 7.5 MG PO (21:09)
[2023-05-01] MEDS: Atorvastatin Calcium 10 MG Tablet PO (21:09)
[2023-05-01] MEDS: Doxepin Hcl 25 MG Capsule PO (21:09)
[2023-05-01] MEDS: Gabapentin 300 MG Capsule PO (21:11)
[2023-05-02] MEDS: Levothyroxine 88 MCG Tablet PO (05:19)
--- NOTE | 2023-05-02 08:00 | MDS.RN ---
Information for the mds was obtained from review of the clinical record, interview of resident, staff, and direct observation of resident's care.
[2023-05-02 08:29] LABS: Anion Gap 6 (5-15); BUN 36 mg/dL (7-18); Calcium,Total 8.7 mg/dL (8.5-10.1); Chloride 110 mmol/L (98-107); Creatinine, Serum 1.09 mg/dL (0.55-1.02); EST Glomerular Filtration Rate 51 mL/min (>60); Est Glom Filt Rate - Afr Amer 62 mL/min (>60); Glucose 108 mg/dL (74-106); Potassium 4.8 mmol/L (3.5-5.1); Sodium Level 137 mmol/L (136-145)
[2023-05-02] MEDS: Ensure Plus High Protein 120 ML LIQUID PO ×3 (08:35→17:13)
[2023-05-02] MEDS: MethylPREDNISolone DosePak 4 MG BOX PO (08:39)
[2023-05-02] MEDS: TAFAMIDIS 61 MG CAPSULE PO (08:39)
[2023-05-02] MEDS: AMOXICILLIN 500 MG CAPSULE 1000 MG PO ×2 (08:40→20:57)
[2023-05-02] MEDS: Ascorbic Acid 500 MG Tablet PO (08:40)
[2023-05-02] MEDS: Iron Polysaccharide Complex 150 MG CAPSULE PO (08:40)
[2023-05-02 08:41] VITALS: BP 115/61; PULSE 108
[2023-05-02] MEDS: Metoprolol(XL)Succ 25 MG Tablet 12.5 MG PO (08:41)
[2023-05-02] MEDS: Pantoprazole Sodium 40 MG Tablet PO ×2 (08:42→20:57)
[2023-05-02] MEDS: Aspirin E.C. 81 MG Tablet PO (08:43)
[2023-05-02] MEDS: Potassium Chloride Oral Tablet 20 MEQ 40 MEQ PO ×2 (08:43→17:17)
[2023-05-02] MEDS: Menthol/Lanolin/Calamine/Znox 113 GM Tube 1 APPLIC TOPICAL ×2 (08:44→20:59)
[2023-05-02] MEDS: Calcium Carbonate 500 MG Tablet PO ×2 (08:44→17:16)
[2023-05-02] MEDS: Nystatin Powder 15gm Bottle 1 APPLIC TOPICAL ×2 (08:45→20:58)
[2023-05-02] MEDS: Cholecalciferol (Vit D3) 125 MCG CAPSULE (5,000 UNITS) PO (08:46)
[2023-05-02] MEDS: Acetaminophen 500 MG Tablet 1000 MG PO (08:55)
[2023-05-02] MEDS: Carbamide Peroxide 15 ML Bottle 5 DRP OTIC ×2 (08:58→20:59)
[2023-05-02] MEDS: 0.9% Saline Lock 10 ML Syringe IV (09:02)
[2023-05-02 09:11] VITALS: BP 115/61; PULSE 108
--- NOTE | 2023-05-02 09:11 | NURSING ---
REMOVED SALINE LOCK DUE TO INFILTRATION.
--- NOTE | 2023-05-02 11:04 | NURSING ---
PT REQUESTING TO SPLIT UP THE TIME SHE GETS WASHED UP AND DRESSED IN MORNING DUE TO TO MUCH STIMULATION AND HER GETTING DIZZY AND LIGHT HEADED. THIS NURSE STATED TO PT THAT I WOULD LET THE CIVIL CADD TECHNICIAN KNOW SO THEY COULD COME AND TALK TO HER TO WORK SOMETHING OUT SO ITS EASIER ON HER. PT STATED THANK YOU. PT AND SON ALSO STATED THEY WOULD LIKE TO HAVE A MRI DONE TO THE LOWER BACK PART OF HER HEAD DUE TO CONSTANT PAIN THAT SHE HAS HAD EVEN WHEN UP IN [place] AND STATED THEY TOLD [place] ABOUT IT AND NEVER DID ANY THING ABOUT IT. THIS NURSE STATED SHE WOULD LET KNOW. PT ALSO ASKING FOR A MAR TO GO SEE A FAMILY MEMBER THAT HAS JUST RECENTLY HAD A STOKE. THIS NURSE STATED SHE DID NOT FEEL COMFORTABLE AND IT WOULD NOT BE A GOOD IDEA AT THIS TIME DUE TO PT NOT BEING STABLE ENOUGH TO LEAVE CAUSE OF HER DIZZINESS,WEAKNESS,ETC AND THE RISKS OF LEAVING THE UNIT. ASKED PT IF SHE FELT LIKE SHE WAS STABLE ENOUGH,PT HESITATED AND STATED NO. STATED TO PT WHEN WE AND HER FEEL LIKE SHE IS STABLE ENOUGH TO GO WE WOULD LET KNOW. PT STATED THANK YOU FOR TAKEN THE TIME TO TALK TO ME. RN AWARE
[2023-05-02 12:50] VITALS: PULSE 103; RESP 18; O2SAT 98
[2023-05-02 13:09] VITALS: BP 105/55; PULSE 107; RESP 16; TEMP 36.7; O2SAT 96
--- NOTE | 2023-05-02 16:12 | NURSING ---
PT AND FAMILY UPDATED ON A PT TESTING POSITIVE FOR COVID.
--- NOTE | 2023-05-02 17:56 | NURSING ---
NEW ORDER FOR MRI TO BRAIN,NO CONTRAST FOR SEVERE HEADACHES.
[2023-05-02] MEDS: Atorvastatin Calcium 10 MG Tablet PO (20:57)
[2023-05-02] MEDS: Doxepin Hydrochloride 10 MG Capsule PO (20:57)
[2023-05-02] MEDS: Mirtazapine 15 MG Tablet 7.5 MG PO (20:57)
[2023-05-02] MEDS: Gabapentin 300 MG Capsule PO (20:57)
[2023-05-03] MEDS: BENZOCAINE/MENTHOL 1 LOZENGE MUCOUS MEM (03:31)
[2023-05-03] MEDS: Levothyroxine 88 MCG Tablet PO (05:10)
[2023-05-03] MEDS: Ensure Plus High Protein 120 ML LIQUID PO ×2 (08:28→11:48)
[2023-05-03] MEDS: Aspirin E.C. 81 MG Tablet PO (08:30)
[2023-05-03] MEDS: Potassium Chloride Oral Tablet 20 MEQ 40 MEQ PO (08:30)
[2023-05-03] MEDS: Calcium Carbonate 500 MG Tablet PO (08:31)
[2023-05-03] MEDS: AMOXICILLIN 500 MG CAPSULE 1000 MG PO (08:32)
[2023-05-03] MEDS: Menthol/Lanolin/Calamine/Znox 113 GM Tube 1 APPLIC TOPICAL (08:33)
[2023-05-03 08:34] VITALS: BP 127/61; PULSE 116
[2023-05-03] MEDS: Iron Polysaccharide Complex 150 MG CAPSULE PO (08:34)
[2023-05-03] MEDS: Pantoprazole Sodium 40 MG Tablet PO (08:34)
[2023-05-03] MEDS: Ascorbic Acid 500 MG Tablet PO (08:34)
[2023-05-03] MEDS: Metoprolol(XL)Succ 25 MG Tablet 12.5 MG PO (08:34)
[2023-05-03] MEDS: Nystatin Powder 15gm Bottle 1 APPLIC TOPICAL (08:37)
[2023-05-03] MEDS: Cholecalciferol (Vit D3) 125 MCG CAPSULE (5,000 UNITS) PO (08:38)
[2023-05-03] MEDS: TAFAMIDIS 61 MG CAPSULE PO (08:38)
[2023-05-03] MEDS: Fluconazole 100 MG Tablet 200 MG PO (08:41)
[2023-05-03] MEDS: Carbamide Peroxide 15 ML Bottle 5 DRP OTIC (08:46)
[2023-05-03 08:52] VITALS: BP 127/61; PULSE 116
--- NOTE | 2023-05-03 10:08 | NURSING ---
CALLED [facility] FOR A CONSULT WITH PT PER DR. MILLARD ORDERS. NO ANSWER SO LEFT MESSAGE.
[2023-05-03 14:20] VITALS: BP 110/58; PULSE 120; RESP 18; TEMP 37.9
--- NOTE | 2023-05-03 14:21 | NURSING ---
Addendum entered by Regis Hurst 05/03/23 14:41: CALLED BACK AND STATED TO SEND PT TO ER. FAMILY IN ROOM AND ARE AWARE. Original Note: PT THIS MORNING HR WAS 116 AT REST. THERAPY GOT PT UP OUT OF BED AND PT STATED SHE FELT DIZZY. HR JUMPED TO 138. PT PUT BACK TO BED,PT RESTED A FEW MINUTES AND HR BACK DOWN TO 96 AND PT STATED SHE FELT BETTER.. PT AT 1400 STATED SHE FELT DIZZY AND LIGHT HEADED AGAIN . VITALS DONE 110/58 MAN,HR 120 APICAL, POUNDING AND IRREGULAR. TEMP 100.3 ORAL. NOTIFIED RN. CALL MADE TO .
--- NOTE | 2023-05-03 18:56 | PCM.DC.SUM ---
Providers Date of Admission: 04/20/23 Primary Care Physician: Dr. Radha Mcrae MD Reason For Visit: SEPTIC ARTHRITIS LEFT SHOULDER Diagnosis Discharge Diagnosis (1) Debility: Status: Acute Code(s): R53.81 - Other malaise (2) Sepsis: Status: Acute Code(s): A41.9 - Sepsis, unspecified organism (3) Septic arthritis of shoulder, left: Status: Acute Code(s): M00.9 - Pyogenic arthritis, unspecified (4) Streptococcal bacteremia: Status: Acute Code(s): R78.81 - Bacteremia; B95.5 - Unspecified streptococcus as the cause of diseases classified elsewhere (5) Acute diverticulitis: Status: Acute Code(s): K57.92 - Diverticulitis of intestine, part unspecified, without perforation or abscess without bleeding (6) Bleeding duodenal ulcer: Status: Acute Code(s): K26.4 - Chronic or unspecified duodenal ulcer with hemorrhage (7) Upper GI bleed: Status: Acute Code(s): K92.2 - Gastrointestinal hemorrhage, unspecified (8) BRIANA (acute kidney injury): Status: Inactive Code(s): N17.9 - Acute kidney failure, unspecified (9) Thrush: Status: Acute Code(s): B37.0 - Candidal stomatitis (10) 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: Status: Acute Code(s): K06.9 - Disorder of gingiva and edentulous alveolar ridge, unspecified; B00.9 - Herpesviral infection, unspecified (11) Hypothyroidism: Status: Chronic Code(s): E03.9 - Hypothyroidism, unspecified (12) Hyperlipidemia: Status: Chronic Code(s): E78.5 - Hyperlipidemia, unspecified Qualifiers: Hyperlipidemia type: unspecified Qualified Code(s): E78.5 - Hyperlipidemia, unspecified (13) Neuropathic pain: Status: Acute Code(s): M79.2 - Neuralgia and neuritis, unspecified (14) Coronary artery disease: Status: Acute Code(s): I25.10 - Atherosclerotic heart disease of [place] coronary artery without angina pectoris (15) Cardiac amyloidosis: Status: Acute Code(s): E85.4 - Organ-limited amyloidosis; I43 - Cardiomyopathy in diseases classified elsewhere (16) Pulmonary embolism: Status: Acute Code(s): I26.99 - Other pulmonary embolism without acute cor pulmonale Plan 82 year old female with below past medical history hospitalized for septic arthritis left shoulder, s/p debridement, strep A bacteremia, complicated by bleeding duodenal ulcer, acute kidney injury, transaminitis, thrush, oral hsv outbreak, admitted to TCU with debility, here for rehabilitation, strengthening, prior to discharge home with . Debility - PT/OT. Pain - Tylenol 1000mg q6 prn pain (1-10), Diclofenac 2gm topical 4x/day. Bowel - Miralax 17gm daily, senna/colace 1 tablet bid. Adult immunization - Administer pneumonia vaccine, covid vaccine, flu vaccine as appropriate. DVT prophylaxis - Hold, bleeding duodenal ulcer. Oral HSV - Acyclovir 200mg 5x/day thru 04/27/2023, Cepacol 1 lozenge q2h prn, BMX 5ml q4h prn. Septic left shoulder/Group A strep bacteremia - Amoxicillin 1000mg bid thru 05/04/2023. Coronary artery disease - Metoprolol succinate 12.5mg daily, Aspirin 81mg daily. Hyperlipidemia - Atorvastatin 10mg qhs. Vitamin D deficiency - D3 125mcg daily. Neuropathic pain - Gabapentin 300mg qhs. Hypothyroidism - Levothyroxine 88mcg daily. Insomnia - Failed Melatonin 3mg qhs, rx Doxepin 10mg qhs prn. Thrush - Nystatin 500,000 4x/day thru 04/24/2023. Nausea - Zofran 4mg q8 prn. Duodenal ulcer - Pantoprazole 40mg bid. Hypokalemia - KCL 20meq daily. Cardiac amyloidosis - Tafamidis 61mg daily. Medications at Discharge Home Medications levothyroxine 88 mcg tablet 88 mcg PO DAILY THYROID 05/27/18 enoxaparin 60 mg/0.6 mL subcutaneous syringe (Lovenox) 60 mg subcut QHS BLOOD THINNER 09/25/18 aspirin 81 mg tablet,delayed release (Adult Aspirin Regimen) 81 mg PO DAILY HEART HEALTH 12/12/19 tafamidis 61 mg capsule 61 mg PO DAILY HEART FAILURE 12/12/19 cholecalciferol (vitamin D3) 125 mcg (5,000 unit) capsule 125 mcg PO DAILY SUPPLEMENT 04/15/20 rosuvastatin 5 mg tablet 5 mg PO DAILY CHOLESTEROL 01/25/22 metoprolol succinate 25 mg tablet,extended release 24 hr (Toprol XL) 12.5 mg PO DAILY BLOOD PRESSURE 07/13/22 vitamins A,C,N-wloz-nnvebh 4,296 mcg-226 mg-90 mg capsule (PreserVision AREDS) 1 cap PO BID EYE HEALTH 01/11/23 gabapentin 300 mg capsule 300 mg PO QHS NEUROPATHY 02/16/23 ondansetron 4 mg disintegrating tablet 4 mg PO Q8H PRN NAUSEA 04/04/23 ondansetron 4 mg disintegrating tablet 4 mg PO Q8H PRN PRN Nausea #10 tabs 04/04/23 MAGIC MOUTH WASH (BMX) 180 mL suspension 5 ml PO Q4H PRN Mouth pain #180 mL 04/20/23 acetaminophen 500 mg tablet 1,000 mg PO Q8H PRN PRN pain 04/20/23 amoxicillin 500 mg capsule 1,000 mg PO BID Infection 04/20/23 benzocaine 6 mg-menthol 10 mg lozenges 1 salvatore mucous membrane Q2H Sore throat 04/20/23 diclofenac sodium 1 % topical gel (Voltaren Arthritis Pain) 2 g topical 4X/DAY Arthritis pain 04/20/23 pantoprazole 40 mg tablet,delayed release 40 mg PO BID Acid reflux 04/20/23 polyethylene glycol 3350 17 gram/dose oral powder 17 g PO DAILY Constipation 04/20/23 sennosides 8.6 mg capsule (senna) 8.6 mg PO BID PRN constipation 04/20/23 ascorbate calcium (vitamin C) 500 mg tablet 500 mg PO DAILY 05/03/23 atorvastatin 10 mg tablet (Lipitor) 10 mg PO QHS 05/03/23 calcium carbonate 200 mg calcium (500 mg) chewable tablet (Tums) 200 mg PO BID 05/03/23 doxepin 10 mg capsule 10 mg PO QHS 05/03/23 fluconazole 100 mg tablet (Diflucan) 100 mg PO DAILY 05/03/23 mirtazapine 7.5 mg tablet 7.5 mg PO QHS 05/03/23 nystatin 100,000 unit/gram topical powder 1 applic topical BID 05/03/23 polysaccharide iron complex 150 mg iron capsule (Ferrex) 150 mg PO DAILY 05/03/23 potassium chloride 20 mEq tablet,extended release 40 meq PO DAILY Supplement 05/03/23 Hospital Course Operations None Procedures None Summary of Care Provided Minutes Spent on Discharge: 15 Hospital Course: 82 year old female with below past medical history hospitalized for septic arthritis left shoulder, s/p debridement, strep A bacteremia, complicated by bleeding duodenal ulcer, acute kidney injury, transaminitis, thrush, oral hsv outbreak, admitted to TCU with debility, here for rehabilitation, strengthening, prior to discharge home with . 05/03/2023 Fluconazole 200mg daily x 2 weeks for yeast UTI. 05/03/2023 Resident developed fever, tachycardia. Discharge to [facility] ED 05/03/2023 for evaluation, possible admission to [facility]. Weight / BMI Weight Weight: 55.883 kg Body Mass Index (BMI) 20.5 ABG / Lab / Microbiology Data 05/02/23 05:12 05/02/23 05:12 Microbiology: Microbiology 05/01/23 01:15 Urine Catheter - [place] Urine Culture - Final Presumptive C albicans Pseudomonas aeruginosa 05/03/23 03:34 Nasal Secretion SARS-CoV-2 Antigen (Rapid) - Final 05/03/23 02:39 Stool Stool Occult Blood (NELLY) - Final Occult Blood Positive D/C Instructions Discharge Diet: No restrictions Discharge Activity: Return to Normal Activity, May Shower and Use Walker Weight Bearing Status: Weight bearing as tolerated Call your doctor if you observe: Fever of 101 or Higher, Inability to urinate, Inability to have a bowel movement, Shortness of breath, Dizziness, Fainting spells, Swelling in the ankles, Chest pain and Uncontrolled pain Additional Instructions: Discharge to [facility] ED 05/03/2023 for evaluation, possible admission to [facility]. Please Follow Up With: Kelsey Lara PA-C Meaningful Use Info Meaningful Use Diagnoses (Choose all that apply): None applicable Discharge Plan Admission Admit Date/Time: 04/20/23 20:45 Primary Reason for Your Visit: Debility. Attending Provider: David Avery Chi Primary Care Provider: Radha Mcrae Instructions Additional Instructions / Restrictions: Discharge to [facility] ED 05/03/2023 for evaluation, possible admission to [facility]. Discharge Orders/Prescriptions Prescriptions: No Action enoxaparin [Lovenox] 60 mg/0.6 mL syringe 60 mg SC QHS Patient Comments: To start taking on April 26, 2023. aspirin [Adult Aspirin Regimen] 81 mg tablet,delayed release (DR/EC) 81 mg PO DAILY tafamidis 61 mg capsule 61 mg PO DAILY cholecalciferol (vitamin D3) 125 mcg (5,000 unit) capsule 125 mcg PO DAILY rosuvastatin 5 mg tablet 5 mg PO DAILY metoprolol succinate [Toprol XL] 25 mg tablet extended release 24 hr 12.5 mg PO DAILY PreserVision AREDS 4,296 mcg-226 mg-90 mg capsule 1 cap PO BID levothyroxine 88 mcg tablet 88 mcg PO DAILY ondansetron [ondansetron] 4 mg tablet,disintegrating 4 mg PO Q8H PRN (Reason: NAUSEA ) ondansetron [ondansetron] 4 mg tablet,disintegrating 4 mg PO Q8H PRN PRN (Reason: Nausea) Qty: 10 0RF acetaminophen 500 mg tablet 1,000 mg PO Q8H PRN PRN (Reason: pain) amoxicillin 500 mg capsule 1,000 mg PO BID Rx Instructions: Take for 14 days benzocaine-menthol 6-10 mg lozenge 1 salvatore mucous membrane Q2H diclofenac sodium [Voltaren Arthritis Pain] 1 % gel 2 g topical 4X/DAY MAGIC MOUTH WASH (BMX) 180 mL suspension 5 ml PO Q4H PRN Qty: 180 pantoprazole 40 mg tablet,delayed release (DR/EC) 40 mg PO BID polyethylene glycol 3350 17 gram/dose powder 17 g PO DAILY senna 8.6 mg capsule 8.6 mg PO BID PRN (Reason: constipation) fluconazole [Diflucan] 100 mg tablet 100 mg PO DAILY polysaccharide iron complex [Ferrex 150] 150 mg iron capsule 150 mg PO DAILY atorvastatin [Lipitor] 10 mg tablet 10 mg PO QHS nystatin 100,000 unit/gram powder 1 applic topical BID mirtazapine 7.5 mg tablet 7.5 mg PO QHS doxepin 10 mg capsule 10 mg PO QHS calcium carbonate [Tums] 200 mg calcium (500 mg) tablet,chewable 200 mg PO BID ascorbate calcium (vitamin C) 500 mg tablet 500 mg PO DAILY potassium chloride 20 mEq tablet extended release 40 meq PO DAILY gabapentin 300 mg capsule 300 mg PO QHS Rx Instructions: Take for 180 days Referrals / Follow Up: Radha Mcrae MD [Primary Care Provider] - Disposition Disposition (needs filled in before D/C Order can be placed): [facility]
== END 2023-05-03 18:20 | disposition short-term general hospital (02) | DRG 949 ==
PROVIDERS: Admitting Provider Family Medicine Geriatric Medicine; PCP Internal Medicine; Referring Provider Family Medicine Geriatric Medicine; Visit Provider Family Medicine Geriatric Medicine
DX: T84.59XD Infection and inflammatory reaction due to other internal joint prosthesis, subsequent encounter (principal); K26.4 Chronic or unspecified duodenal ulcer with hemorrhage; M00.212 Other streptococcal arthritis, left shoulder; M00.9 Pyogenic arthritis, unspecified; E85.9 Amyloidosis, unspecified; B37.0 Candidal stomatitis; I42.2 Other hypertrophic cardiomyopathy; K57.92 Diverticulitis of intestine, part unspecified, without perforation or abscess without bleeding; N39.0 Urinary tract infection, site not specified; E83.51 Hypocalcemia; I10 Essential (primary) hypertension; E89.0 Postprocedural hypothyroidism; E78.5 Hyperlipidemia, unspecified; I25.10 Atherosclerotic heart disease of native coronary artery without angina pectoris; E55.9 Vitamin D deficiency, unspecified; G62.9 Polyneuropathy, unspecified; K21.9 Gastro-esophageal reflux disease without esophagitis; E87.6 Hypokalemia; Z79.82 Long term (current) use of aspirin; Z79.899 Other long term (current) drug therapy; Z79.890 Hormone replacement therapy; B00.9 Herpesviral infection, unspecified; K26.7 Chronic duodenal ulcer without hemorrhage or perforation
CPT/HCPCS: 36415; 72040; 73030; 74018; 80048; 80061; 81001; 82274; 82962; 84484; 85014; 85018; 85025; 87077; 87086; 87088; 87186; 87811; 92526; 92610; 97110; 97116; 97162; 97165; 97530; 97535; 97802; J7030; A4216

== ENCOUNTER 2023-05-03 14:44 | Inpatient (IN) | payer MEDICARE, OTHER, SELFPAY ==
[2023-05-03] VITALS (15 sets, daily range): BP systolic 97–121; BP diastolic 64–74; PULSE 79–112; RESP 14–24; TEMP 36.6–37.3; O2SAT 92–100; BMI 22.6; BMI 21.4
--- NOTE | 2023-05-03 15:11 | EX.ED.DYSGE1 ---
HPI <HEATHER Humphreys - Last Filed: 05/03/23 18:32> History of Present Illness Chief Complaint: General Illness Narrative Narrative: Patient is an 82-year-old female with history of hypertension hyperlipidemia history of pulmonary embolism, GI bleed who presents to the emergency department for generalized fatigue, elevated heart rate, low-grade fever. Over the last month, patient has been in and out of hospitals, she was at [facility] for left shoulder cellulitis, lower GI bleed. She has been at [facility] since 20 April. Patient has continued weakness elevated heart rate, low-grade fever, cough. Patient is here for evaluation. She is here with her family members, I spoke with the son who does have most of her history. [facility] <HEATHER Humphreys - Last Filed: 05/03/23 18:32> [facility] Medical History (Updated 05/03/23 @ 19:53 by Yohana Sharma) Abdominal pain Abdominal pain Abnormal stress echo Acid reflux Arthritis Atherosclerosis of [place] coronary artery of [place] heart without angina pectoris Back problem Cellulitis of left lower extremity Chest pain Constipation Diverticulitis of sigmoid colon DVT (deep venous thrombosis) Essential hypertension Gastrointestinal hemorrhage Heart murmur Hemorrhoids History of pulmonary embolus (PE) (~2009) History of venous thrombosis and embolism hx of APLL Hyperlipidemia Hypertension Hypertrophic cardiomyopathy Hypofibrinogenemia Hypothyroidism Kidney disease LVH (left ventricular 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 Palpitations Personal history of colonic polyps Severe left ventricular hypertrophy Severe mitral regurgitation Thrombophlebitis of superficial veins of left lower extremity Wild-type transthyretin-related (ATTR) amyloidosis Home Medications levothyroxine 88 mcg tablet 88 mcg PO DAILY THYROID 05/27/18 [History Last Taken 04/04/23] enoxaparin 60 mg/0.6 mL subcutaneous syringe (Lovenox) 60 mg subcut QHS BLOOD THINNER 09/25/18 [History Last Taken 04/01/23] aspirin 81 mg tablet,delayed release (Adult Aspirin Regimen) 81 mg PO DAILY HEART HEALTH 12/12/19 [History Last Taken 04/04/23] tafamidis 61 mg capsule 61 mg PO DAILY HEART FAILURE 12/12/19 [History Last Taken 04/04/23] cholecalciferol (vitamin D3) 125 mcg (5,000 unit) capsule 125 mcg PO DAILY SUPPLEMENT 01/14/21 [History Last Taken 04/04/23] rosuvastatin 5 mg tablet 5 mg PO DAILY CHOLESTEROL 01/25/22 [History Last Taken 04/04/23] metoprolol succinate 25 mg tablet,extended release 24 hr (Toprol XL) 12.5 mg PO DAILY BLOOD PRESSURE 07/13/22 [History Last Taken 04/04/23] vitamins A,C,X-yzvz-lqjeem 4,296 mcg-226 mg-90 mg capsule (PreserVision AREDS) 1 cap PO BID EYE HEALTH 01/11/23 [History Last Taken 04/04/23] gabapentin 300 mg capsule 300 mg PO QHS NEUROPATHY 02/16/23 [History Last Taken 04/03/23] ondansetron 4 mg disintegrating tablet 4 mg PO Q8H PRN NAUSEA 04/04/23 [History Last Taken 04/04/23] ondansetron 4 mg disintegrating tablet 4 mg PO Q8H PRN PRN Nausea #10 tabs 04/04/23 [Rx Last Taken Unknown] MAGIC MOUTH WASH (BMX) 180 mL suspension 5 ml PO Q4H PRN Mouth pain #180 mL 04/20/23 [History Last Taken Unknown] acetaminophen 500 mg tablet 1,000 mg PO Q8H PRN PRN pain 04/20/23 [History Last Taken Unknown] amoxicillin 500 mg capsule 1,000 mg PO BID Infection 04/20/23 [History Last Taken Unknown] benzocaine 6 mg-menthol 10 mg lozenges 1 salvatore mucous membrane Q2H Sore throat 04/20/23 [History Last Taken Unknown] diclofenac sodium 1 % topical gel (Voltaren Arthritis Pain) 2 g topical 4X/DAY Arthritis pain 04/20/23 [History Last Taken Unknown] pantoprazole 40 mg tablet,delayed release 40 mg PO BID Acid reflux 04/20/23 [History Last Taken Unknown] polyethylene glycol 3350 17 gram/dose oral powder 17 g PO DAILY Constipation 04/20/23 [History Last Taken Unknown] sennosides 8.6 mg capsule (senna) 8.6 mg PO BID PRN constipation 04/20/23 [History Last Taken Unknown] ascorbate calcium (vitamin C) 500 mg tablet 500 mg PO DAILY 05/03/23 [History Last Taken Unknown] atorvastatin 10 mg tablet (Lipitor) 10 mg PO QHS 05/03/23 [History Last Taken Unknown] calcium carbonate 200 mg calcium (500 mg) chewable tablet (Tums) 200 mg PO BID 05/03/23 [History Last Taken Unknown] doxepin 10 mg capsule 10 mg PO QHS 05/03/23 [History Last Taken Unknown] fluconazole 100 mg tablet (Diflucan) 100 mg PO DAILY 05/03/23 [History Last Taken Unknown] mirtazapine 7.5 mg tablet 7.5 mg PO QHS 05/03/23 [History Last Taken Unknown] nystatin 100,000 unit/gram topical powder 1 applic topical BID 05/03/23 [History Last Taken Unknown] polysaccharide iron complex 150 mg iron capsule (Ferrex) 150 mg PO DAILY 05/03/23 [History Last Taken Unknown] potassium chloride 20 mEq tablet,extended release 40 meq PO DAILY Supplement 05/03/23 [History Last Taken Unknown] Allergy/AdvReac Type Severity Reaction Status Date / Time Iodinated Contrast Media Allergy Severe Hives Verified 05/03/23 14:45 [Iodinated Contrast- Oral and IV Dye] iodine Allergy Anaphylaxis Verified 05/03/23 14:45 Family History Mother Colon cancer Brother Myeloma Father Heart disease Surgical History (Updated 05/03/23 @ 19:53 by Yohana Sharma) History of cholecystectomy History of left heart catheterization (10/22/19) History of left hip replacement History of right hip replacement Hx of arthroscopic knee surgery Hx of bilateral inguinal hernia repair Hx of bladder repair surgery Hx of hysterectomy Hx of partial thyroidectomy Hx of umbilical hernia repair (~2009) Social History (Updated 04/20/23 @ 22:[address] David Avery MD) household members: spouse Smoking Status: Never smoker second hand exposure: No alcohol intake: never substance use type: does not use caffeine: Yes (very rare) what type of physical activity do you participate in: none frequency: does not exercise seatbelt use: always ROS <HEATHER Humphreys - Last Filed: 05/03/23 18:32> ROS ED ROS Narrative Constitutional: Negative for fever, weight loss. Chills and weakness Eyes: Negative for vision loss, vision change, double vision ENT: Negative for any sore throat, ear pain, congestion Cardiovascular: Negative for any chest pain, tightness, palpitations. Tachycardia Respiratory: Negative for any sputum production, hemoptysis, dyspnea, dyspnea on exertion, orthopnea. Cough Gastrointestinal: Negative for any abdominal pain, nausea, vomiting, diarrhea, constipation, blood in vomit. Positive blood in the stool : Negative for any urinary frequency, dysuria, retention, blood in urine Muscle skeletal: Negative for any myalgias, arthralgias, neck pain, back pain Neurological: Negative for any syncope, paresthesias. Positive headache, dizziness Skin: Negative for any rashes, lumps, itching, abrasions, lacerations Psychiatric: Negative for any depression, anxiety, stress, suicidal ideation, homicidal ideation Hematologic: Negative for any easy bruising, excessive bruising, easy bleeding Allergies: Negative for any eczema, hives, rash EXAM <HEATHER Humphreys - Last Filed: 05/03/23 18:32> Physical Exam Narrative Exam Narrative: Vital signs reviewed. Patient is somnolent, heart rate is 112. In no respiratory distress. HEET: Head normocephalic atraumatic, TMs clear bilaterally. Posterior pharynx is clear, dry mucous membranes. Nares clear bilaterally. Neck: Supple with no lymphadenopathy or tenderness. No signs of meningismus. Cardiac: Tachycardic rate and rhythm no murmurs gallops or rubs, equal peripheral pulses bilaterally. Respiratory: Lungs clear to auscultation bilaterally. No chest tenderness. Abdomen: Soft, nontender, nondistended. No abdominal bruit or pulsatile masses. No hepatosplenomegaly Extremities: No peripheral edema, no signs of gross trauma or deformity. Active full range of motion of all extremities. Neuro: Cranial nerves II through XII intact, no focal neurological deficits. Skin: Clean dry and intact with no rash, purpura, petechiae, vesicles or pustules. Backs/flank: No CVA tenderness, no midline spinal tenderness, no deformity. Psych: Normal mood and affect. No SI, HI or acute psychosis. Const Vital Signs: 05/03/23 14:46 05/03/23 14:50 05/03/23 14:50 Temperature 99.2 F H 99.2 F H Temperature Source Oral Temporal Pulse Rate 112 H 112 H Respiratory Rate 24 H 21 H Respiratory Effort Normal Non-Labored Respiratory Pattern Normal Blood Pressure 121/73 H 121/73 H Blood Pressure Mean 89 89 Pulse Ox 98 98 Oxygen Delivery Method Room Air Room Air 05/03/23 15:04 05/03/23 17:08 05/03/23 17:24 Temperature Temperature Source Pulse Rate 94 92 Respiratory Rate 20 H 21 H Respiratory Effort Respiratory Pattern Blood Pressure 117/74 Blood Pressure Mean 88 Pulse Ox 96 Oxygen Delivery Method Room Air 05/03/23 17:30 05/03/23 17:40 05/03/23 17:50 Temperature Temperature Source Pulse Rate 93 87 89 Respiratory Rate 19 H 19 H 19 H Respiratory Effort Respiratory Pattern Blood Pressure Blood Pressure Mean Pulse Ox 96 95 92 Oxygen Delivery Method 05/03/23 18:00 05/03/23 18:10 05/03/23 18:20 Temperature Temperature Source Pulse Rate 86 93 Respiratory Rate 21 H 23 H Respiratory Effort Respiratory Pattern Blood Pressure 113/64 Blood Pressure Mean 80 Pulse Ox 95 97 Oxygen Delivery Method 05/03/23 18:30 05/03/23 18:40 Temperature Temperature Source Pulse Rate 91 93 Respiratory Rate 14 21 H Respiratory Effort Respiratory Pattern Blood Pressure Blood Pressure Mean Pulse Ox 96 96 Oxygen Delivery Method <Dr. Perfecto Martinez MD - Last Filed: 05/03/23 20:51> Physical Exam Const Vital Signs: 05/03/23 14:46 05/03/23 14:50 05/03/23 14:50 Temperature 99.2 F H 99.2 F H Temperature Source Oral Temporal Pulse Rate 112 H 112 H Respiratory Rate 24 H 21 H Respiratory Effort Normal Non-Labored Respiratory Pattern Normal Blood Pressure 121/73 H 121/73 H Blood Pressure Mean 89 89 Pulse Ox 98 98 Oxygen Delivery Method Room Air Room Air 05/03/23 15:04 05/03/23 17:08 05/03/23 17:24 Temperature Temperature Source Pulse Rate 94 92 Respiratory Rate 20 H 21 H Respiratory Effort Respiratory Pattern Blood Pressure 117/74 Blood Pressure Mean 88 Pulse Ox 96 Oxygen Delivery Method Room Air 05/03/23 17:30 05/03/23 17:40 05/03/23 17:50 Temperature Temperature Source Pulse Rate 93 87 89 Respiratory Rate 19 H 19 H 19 H Respiratory Effort Respiratory Pattern Blood Pressure Blood Pressure Mean Pulse Ox 96 95 92 Oxygen Delivery Method 05/03/23 18:00 05/03/23 18:10 05/03/23 18:20 Temperature Temperature Source Pulse Rate 86 93 Respiratory Rate 21 H 23 H Respiratory Effort Respiratory Pattern Blood Pressure 113/64 Blood Pressure Mean 80 Pulse Ox 95 97 Oxygen Delivery Method 05/03/23 18:30 05/03/23 18:40 Temperature Temperature Source Pulse Rate 91 93 Respiratory Rate 14 21 H Respiratory Effort Respiratory Pattern Blood Pressure Blood Pressure Mean Pulse Ox 96 96 Oxygen Delivery Method [facility] <Omer Stallworth GLOBAL PROGRAM MANAGER-C - Last Filed: 05/03/23 18:32> [facility] Lab Data Labs: Laboratory Results - last 24 hr 05/03/23 05/03/23 05/03/23 15:20 15:28 15:30 WBC 12.7 H RBC 3.65 L Hgb 10.8 L Hct 33.4 L MCV 91.5 MCH 29.6 MCHC 32.3 RDW Std Deviation 56.5 H RDW Coeff of Rashmi 17.2 H Plt Count 294 MPV 9.7 Immature Gran % (Auto) GLOBAL PROGRAM MANAGER Neut % (Auto) GLOBAL PROGRAM MANAGER Lymph % (Auto) GLOBAL PROGRAM MANAGER [place] % (Auto) GLOBAL PROGRAM MANAGER Eos % (Auto) GLOBAL PROGRAM MANAGER Baso % (Auto) GLOBAL PROGRAM MANAGER Absolute Neuts (auto) 10.8 H Absolute Lymphs (auto) 1.14 Total Counted 100 Neutrophils % (Manual) 81 H Band Neutrophils % 4 Lymphocytes % (Manual) 9 L Monocytes % (Manual) 6 Nucleated RBC % GLOBAL PROGRAM MANAGER Diff Path Review May foll Platelet Estimate ADEQUATE RBC Morphology NORM C+C PT 18.1 H INR 1.5 APTT 38.1 H Sodium 136 Potassium 5.7 H Chloride 108 H Carbon Dioxide 24.0 Anion Gap 4 L BUN 35 H Creatinine 1.14 H Estim Creat Clear Calc 32.85 Est GFR (MDRD) Af Amer 59 L Est GFR (MDRD) Non-Af 49 L BUN/Creatinine Ratio 30.7 H Glucose 114 H Lactic Acid 1.6 Calcium 8.6 Total Bilirubin 0.40 AST 59 H ALT 75 H Alkaline Phosphatase 156 H Troponin I High Sens 62 H Total Protein 6.4 Albumin 2.4 L Globulin 4.0 Albumin/Globulin Ratio 0.6 L Urine Color Yellow Urine Clarity Clear Urine pH 7.0 Ur Specific [place] 1.010 Urine Protein 15 H Urine Glucose (UA) Normal Urine Ketones Negative Urine Occult Blood 25 H Urine Nitrite Negative Urine Bilirubin Negative Urine Urobilinogen Normal Ur Leukocyte Esterase Negative Urine RBC 0-5 SEEN Urine WBC 0 SEEN Ur Squamous Epith Cells 0 SEEN Urine Bacteria 0 SEEN Urine Mucus 0 SEEN Urine Yeast RARE 05/03/23 17:18 WBC RBC Hgb Hct MCV MCH MCHC RDW Std Deviation RDW Coeff of Rashmi Plt Count MPV Immature Gran % (Auto) Neut % (Auto) Lymph % (Auto) [place] % (Auto) Eos % (Auto) Baso % (Auto) Absolute Neuts (auto) Absolute Lymphs (auto) Total Counted Neutrophils % (Manual) Band Neutrophils % Lymphocytes % (Manual) Monocytes % (Manual) Nucleated RBC % Diff Path Review Platelet Estimate RBC Morphology PT INR APTT Sodium Potassium Chloride Carbon Dioxide Anion Gap BUN Creatinine Estim Creat Clear Calc Est GFR (MDRD) Af Amer Est GFR (MDRD) Non-Af BUN/Creatinine Ratio Glucose Lactic Acid Calcium Total Bilirubin AST ALT Alkaline Phosphatase Troponin I High Sens 64 H Total Protein Albumin Globulin Albumin/Globulin Ratio Urine Color Urine Clarity Urine pH Ur Specific [place] Urine Protein Urine Glucose (UA) Urine Ketones Urine Occult Blood Urine Nitrite Urine Bilirubin Urine Urobilinogen Ur Leukocyte Esterase Urine RBC Urine WBC Ur Squamous Epith Cells Urine Bacteria Urine Mucus Urine Yeast Radiography Diagnostic Testing: Clinical Impression(s) from Imaging Studies Chest X-Ray 05/03/23 16:00 IMPRESSION: No radiographic evidence of acute cardiopulmonary disease. Electronically Signed: Arvin Morales DO at 16:12 EST Reading Location ID and State: [address] [place] [address] Tel [phone], Service support , EKG EKG shows sinus tachycardia: Attestation: I personally reviewed and interpreted this EKG as follows: Interpretation: Sinus Tachycardia Comments: EKG shows a sinus tachycardia at a rate of 110 bpm, PA interval 208 ms, QRS duration 88 ms, no acute ST elevation, no acute infarct noted. Treatment and Re-Evaluation :: Patient appears to be in no obvious distress, patient is slightly somnolent. Does answer questions appropriately. Patient is tachycardic. Present to the emergency department for ongoing tachycardia, weakness. Differential diagnosis includes viral illness such as COVID-19 or influenza, community-acquired pneumonia, electrolyte abnormality, hemoglobin that is low. Patient will receive a full septic workup, secondary to the patient's complicated medical history over the last month. Laboratory values such as CBC, BMP, 1 troponin. Patient will receive a chest x-ray. All radiologic examinations were read, reviewed by the emergency department attending. From these reads, a plan of care will be put in place. Patient was given IV fluids Tylenol here. Will be reevaluated Patient's vital signs remained stable, patient's heart rate did decrease to 94. Patient did receive a two-view chest x-ray, this showed no radiographic evidence of acute cardiopulmonary process, this was interpreted by the ER physician. Urinalysis was negative for any infection. Patient's COVID-19 influenza, RSV was negative. Patient's initial troponin was 62, the repeat was 64 slightly elevated. Patient's chemistries do show some hyperkalemia with a potassium of 5.7 creatinine is 1.14 with a GFR of 49. BUN of 30.7. CBC was stable, slight leukocytosis with a white blood count 12.7, hemoglobin of 10.8. Patient mentation remains the same. With discussion with the ER attending, I do believe the patient should be admitted to the hospital. Patient had multiple episodes of tachycardia, near syncopal episodes. Patient does have peaked T waves on the EKG. patient will be given IV fluids. I will reach out to the hospitalist if they want any other medication. Patient also had MRI today which showed acute mastoiditis bilaterally however patient has no pain along her mastoids, patient headache has been intermittent to her posterior occiput for some time. At this time, will speak with hospitalist for admission. <Dr. Perfecto Martinez MD - Last Filed: 05/03/23 20:51> [facility] Narrative Medical decision making narrative: I have personally performed a face to face assessment of the patient and have reviewed the LUIS Note. I performed a substantive portion of the visit including all aspects of the following. My novak findings include: History: Patient was sent down due to rising heart rate and temperature of 100.4. She has had a complex medical history that is reviewed with her and her son who is a very good informant. I also find out that the patient has had some syncopal or near syncopal episodes recently. She was walking with a walker and actually doing quite well. She suddenly turned pale lightheaded and they sat her down. They got the nurse as the therapist was with her. She had blood pressures of 80/40. They then started talking to her and she came around. No reported seizure activity. She recalls them asking her questions but does not recall the unresponsive episode. Exam: Patient has some chronic illness appearance but does not look acutely toxic. Lungs sound good at this time. Heart is regular but a little bit tachycardic. Blood pressure is good. Saturations are good. Abdomen shows no tenderness. Medical Decision Making: Patient has mild anemia and mild elevation white count which are nonspecific. Electrolytes showed potassium of 5 7. Her EKG had a little bit of peaked T waves but really only in lead II. She is given IV fluids. I think this alone should treat this as I doubt that slight elevation of her potassium is contributing to the EKG changes. We also reviewed the outpatient MRI that was done for chronic headaches. It mentions bilateral mastoiditis but she is not having tenderness or pain there. With the patient's high potassium, syncope, elevated troponin and complex medical history she will be brought in the hospital. Lab Data Labs: Laboratory Results - last 24 hr 05/03/23 05/03/23 05/03/23 15:20 15:28 15:30 WBC 12.7 H RBC 3.65 L Hgb 10.8 L Hct 33.4 L MCV 91.5 MCH 29.6 MCHC 32.3 RDW Std Deviation 56.5 H RDW Coeff of Rashmi 17.2 H Plt Count 294 MPV 9.7 Immature Gran % (Auto) GLOBAL PROGRAM MANAGER Neut % (Auto) GLOBAL PROGRAM MANAGER Lymph % (Auto) GLOBAL PROGRAM MANAGER [place] % (Auto) GLOBAL PROGRAM MANAGER Eos % (Auto) GLOBAL PROGRAM MANAGER Baso % (Auto) GLOBAL PROGRAM MANAGER Absolute Neuts (auto) 10.8 H Absolute Lymphs (auto) 1.14 Total Counted 100 Neutrophils % (Manual) 81 H Band Neutrophils % 4 Lymphocytes % (Manual) 9 L Monocytes % (Manual) 6 Nucleated RBC % GLOBAL PROGRAM MANAGER Diff Path Review May foll Platelet Estimate ADEQUATE RBC Morphology NORM C+C PT 18.1 H INR 1.5 APTT 38.1 H Sodium 136 Potassium 5.7 H Chloride 108 H Carbon Dioxide 24.0 Anion Gap 4 L BUN 35 H Creatinine 1.14 H Estim Creat Clear Calc 32.85 Est GFR (MDRD) Af Amer 59 L Est GFR (MDRD) Non-Af 49 L BUN/Creatinine Ratio 30.7 H Glucose 114 H Lactic Acid 1.6 Calcium 8.6 Total Bilirubin 0.40 AST 59 H ALT 75 H Alkaline Phosphatase 156 H Troponin I High Sens 62 H Total Protein 6.4 Albumin 2.4 L Globulin 4.0 Albumin/Globulin Ratio 0.6 L Urine Color Yellow Urine Clarity Clear Urine pH 7.0 Ur Specific [place] 1.010 Urine Protein 15 H Urine Glucose (UA) Normal Urine Ketones Negative Urine Occult Blood 25 H Urine Nitrite Negative Urine Bilirubin Negative Urine Urobilinogen Normal Ur Leukocyte Esterase Negative Urine RBC 0-5 SEEN Urine WBC 0 SEEN Ur Squamous Epith Cells 0 SEEN Urine Bacteria 0 SEEN Urine Mucus 0 SEEN Urine Yeast RARE 05/03/23 17:18 WBC RBC Hgb Hct MCV MCH MCHC RDW Std Deviation RDW Coeff of Rashmi Plt Count MPV Immature Gran % (Auto) Neut % (Auto) Lymph % (Auto) [place] % (Auto) Eos % (Auto) Baso % (Auto) Absolute Neuts (auto) Absolute Lymphs (auto) Total Counted Neutrophils % (Manual) Band Neutrophils % Lymphocytes % (Manual) Monocytes % (Manual) Nucleated RBC % Diff Path Review Platelet Estimate RBC Morphology PT INR APTT Sodium Potassium Chloride Carbon Dioxide Anion Gap BUN Creatinine Estim Creat Clear Calc Est GFR (MDRD) Af Amer Est GFR (MDRD) Non-Af BUN/Creatinine Ratio Glucose Lactic Acid Calcium Total Bilirubin AST ALT Alkaline Phosphatase Troponin I High Sens 64 H Total Protein Albumin Globulin Albumin/Globulin Ratio Urine Color Urine Clarity Urine pH Ur Specific [place] Urine Protein Urine Glucose (UA) Urine Ketones Urine Occult Blood Urine Nitrite Urine Bilirubin Urine Urobilinogen Ur Leukocyte Esterase Urine RBC Urine WBC Ur Squamous Epith Cells Urine Bacteria Urine Mucus Urine Yeast Radiography Diagnostic Testing: Clinical Impression(s) from Imaging Studies Chest X-Ray 05/03/23 16:00 IMPRESSION: No radiographic evidence of acute cardiopulmonary disease. Electronically Signed: Arvin Morales DO at 16:12 EST Reading Location ID and State: [facility] / [place] Tel [phone], Service support , Discharge Plan Dx/Rx/DC Orders Clinical Impression: Near syncope, Tachycardia, Elevated troponin, Acute mastoiditis, Acute hyperkalemia Disposition Disposition: Acute Care Hospital [facility] Discharge Date/Time: 05/03/23 19:17
[2023-05-03] MEDS: Acetaminophen 500 MG Tablet 1000 MG PO (15:36)
[2023-05-03] MEDS: 0.9% Normal Saline (1000mL) 1,000 ML 999 ML IV (15:36)
[2023-05-03 15:47] LABS: Hematocrit 33.4 % (37-47); Hemoglobin 10.8 g/dL (12.0-15.0); Mean Corp Hgb Conc 32.3 g/dL (32-36); Mean Corpuscular Hgb 29.6 pg (27.0-32.0); Mean Corpuscular Volume 91.5 fL (81-99); Mean Platelet Vol. 9.7 fl (6.2-12.0); POSITIVE COUNT YES; POSITIVE MORPHOLOGY YES; Platelet Count 294 K/mm3 (150-450); RBC Distribution Width CV 17.2 % (11.6-14.6); RBC Distribution Width SD 56.5 fl (35.1-43.9); Red Blood Count 3.65 M/mm3 (4.2-5.4); White Blood Count 12.7 K/mm3 (4.4-11.0)
[2023-05-03 15:49] LABS: Bacteria 0 SEEN /hpf (None Seen); Color, Urine Yellow (Yellow); Glucose, Dipstick Normal (Normal); Ketone-Dipstick Negative (Negative); Leukocyte Esterase-Dipstick Negative /ul (Negative); Mucous, Urine 0 SEEN /hpf (<or=2+); Nitrite-Dipstick Negative (Negative); Occult Blood-Urine 25 /ul (Negative); Protein-Dipstick 15 mg/dl (Negative); Squamous Epithelial Cells - UA 0 SEEN /hpf (5-10); Urine Bilirubin Dipstick Negative (Negative); Urine Clarity Clear (Clear); Urine Urobilinogen Normal (Normal); White Blood Cells 0 SEEN /hpf (0-5)
[2023-05-03 15:55] LABS: Red Blood Cells-Urine 0-5 SEEN /hpf (0-5); Yeast-Urine RARE /hpf (None Seen)
[2023-05-03 15:57] LABS: International Normalized Ratio 1.5; Prothrombin Time (Protime)PT. 18.1 SECONDS (11.7-14.9)
[2023-05-03 15:58] LABS: Partial Thromboplast Time 38.1 Seconds (24.1-36.2)
--- NOTE | 2023-05-03 16:00 | RAD_ITS ---
INDICATION: cough EXAMINATION/TECHNIQUE: X-RAY - XR Chest 1 View COMPARISON: February 16, 2023 FINDINGS: LINES/DEVICES: None. LUNGS: No consolidation, edema or effusion. No pneumothorax. MEDIASTINUM AND CARDIOVASCULAR STRUCTURES: Cardiac silhouette not enlarged. Central airways and mediastinal contour are unremarkable. BONES AND SOFT TISSUES: Degenerative vertebral changes. RAD/Chest 1 View (Portable) IMPRESSION: No radiographic evidence of acute cardiopulmonary disease. Electronically Signed: Arvin Morales DO at 16:12 EST ,
[2023-05-03 16:03] LABS: Lactic Acid 1.6 mmol/L (0.4-1.9)
[2023-05-03 16:03] LABS: ALB/GLOB Ratio 0.6 RATIO (0.9-2.4); AST(SGOT) 59 U/L (15-37); Alanine Aminotransfer ALT/SGPT 75 U/L (13-56); Albumin, Serum 2.4 g/dL (3.2-5.0); Alkaline Phosphatase 156 U/L (45-117); Anion Gap 4 (5-15); BUN 35 mg/dL (7-18); BUN/Creat Ratio 30.7 RATIO (10-20); Calcium,Total 8.6 mg/dL (8.5-10.1); Chloride 108 mmol/L (98-107); Creatinine, Serum 1.14 mg/dL (0.55-1.02); EST Glomerular Filtration Rate 49 mL/min (>60); Est Glom Filt Rate - Afr Amer 59 mL/min (>60); Estimated Creatinine Clearance 32.85 ml/min; Glucose 114 mg/dL (74-106); Potassium 5.7 mmol/L (3.5-5.1); Protein, Total 6.4 g/dL (6.4-8.2); Sodium Level 136 mmol/L (136-145); Troponin-I HS 62 pg/mL (3.0-54.0)
[2023-05-03 16:15] LABS: Lymphocyte 9 % (19-41); Monocyte 6 % (0-10); Neutrophil-Band 4 % (0-5); Neutrophil-Segmented 81 % (47-70); Total Cells Counted 100 (MANUAL DIFF)
[2023-05-03 16:16] LABS: Platelet Estimate ADEQUATE (ADEQ); Red Cell Morphology NORM C+C NORMAL (NORM C&C)
[2023-05-03 16:17] LABS: Absolute Lymphocyte Count 1.14 X10^3/uL (0.83-4.51); Absolute Neutrophil Count 10.8 X10^3/uL (2.0-7.7); Differential Indicated MANUAL DIFF; Scan Smear per Review Criteria MANUAL DIFF
[2023-05-03 17:40] LABS: Troponin-I HS 64 pg/mL (3.0-54.0)
--- NOTE | 2023-05-03 18:18 | NURSING ---
PCU [facility] HYPERKALEMIA, ELEVATED TROP, WEAKNESS, NEAR SYNCOPE, TACHYCARDIA
--- NOTE | 2023-05-03 18:53 | HP.PCM.HOS_ITS ---
HPI - General General Date of Admission: 05/03/23 Date of Service: 05/03/23 Chief Complaint: Weakness, low grade fever, tachycardia HPI Narrative KEYONNA VILLAGOMEZ, is a 82-year-old female history of PE and hypofibrinogenemia, IVC filter, cardiac amyloidosis, hypothyroidism, GERD, GI bleed secondary to duodenal ulcer, who presented to [facility] ED from the transitional care rehab unit 05/03/2023 due to fatigue, elevated heart rate, and low-grade fever. Over the past month she has been in and out of hospitals and was at [facility] for left shoulder septic arthritis status post washout and a duodenal GI bleed and has since [facility]. She had been doing fair until the past several days when she has been getting dizzy and lightheaded and having episodes of sinus tach when she is up working with physical therapy and has also been more tired than usual. Did have MRI today due to persistent headache and MRI with chronic changes in bilateral mastoiditis however mastoiditis does not correlate with exam. In ED she had a white blood cell count of 12.7 with left shift, hemoglobin 10.8, creatinine 1.14 with potassium of 5.7 and troponin of 62 with repeat 64 as well as elevated transaminases. Patient initially with some low-grade tachycardia and low BP and was given IV fluids and this improved. Given multiple complaints and patient generally not doing well hospitalist contacted for admission. Patient seen with her son and her at bedside. Patient is feeling better after fluids. Patient has not been doing well since her hospitalization at [facility] and has been generally weak, also since her shoulder intervention has had intermittent sharp pains in the back of her head which prompted the MRI, has not been hearing as well out of bilateral ears but no pain over mastoid, has had some problems with thrush and HSV oral sore outbreak. Over the past week thinks she has been getting weaker and described an episode on Sunday of this week where she had an episode of hypotension and became clammy and shaky and vomited, has not had another 1 of those episodes but has been weak and dizzy and tachycardic when sitting up or trying to stand up and walk with therapy. Has been short of breath for couple of weeks and has a dry cough over. The past several months that is overall unchanged. Had a little bit of pain in her right lower quadrant earlier today that has completely resolved. FOBT was positive and patient does not note any bright blood in stool and only notes dark stool but this has been unchanged since her hospitalization at [facility] and she is also on iron supplementation. Has Britton catheter in place since her admission in [place]. Patient not presently feeling nauseous but has had poor p.o. intake overall. Reports no changes in her shoulder and no increased pain or complaints in that regard. [facility] Medical History Abdominal pain Abdominal pain Abnormal stress echo Acid reflux Arthritis Atherosclerosis of [place] coronary artery of [place] heart without angina pectoris Back problem Cellulitis of left lower extremity Chest pain Constipation Diverticulitis of sigmoid colon Essential hypertension Gastrointestinal hemorrhage Heart murmur Hemorrhoids History of pulmonary embolus (PE) (~2009) History of venous thrombosis and embolism hx of APLL Hyperlipidemia Hypertrophic cardiomyopathy Hypofibrinogenemia Hypothyroidism LVH (left ventricular 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 Palpitations Personal history of colonic polyps Severe left ventricular hypertrophy Severe mitral regurgitation Thrombophlebitis of superficial veins of left lower extremity Wild-type transthyretin-related (ATTR) amyloidosis Home Medications levothyroxine 88 mcg tablet 88 mcg PO DAILY THYROID 05/27/18 [History Last Taken 04/04/23] enoxaparin 60 mg/0.6 mL subcutaneous syringe (Lovenox) 60 mg subcut QHS BLOOD THINNER 09/25/18 [History Last Taken 04/01/23] aspirin 81 mg tablet,delayed release (Adult Aspirin Regimen) 81 mg PO DAILY HEART HEALTH 12/12/19 [History Last Taken 04/04/23] tafamidis 61 mg capsule 61 mg PO DAILY HEART FAILURE 12/12/19 [History Last Taken 04/04/23] cholecalciferol (vitamin D3) 125 mcg (5,000 unit) capsule 125 mcg PO DAILY SUPPLEMENT 04/15/20 [History Last Taken 04/04/23] rosuvastatin 5 mg tablet 5 mg PO DAILY CHOLESTEROL 01/25/22 [History Last Taken 04/04/23] metoprolol succinate 25 mg tablet,extended release 24 hr (Toprol XL) 12.5 mg PO DAILY BLOOD PRESSURE 07/13/22 [History Last Taken 04/04/23] vitamins A,C,T-ytvk-pwzbua 4,296 mcg-226 mg-90 mg capsule (PreserVision AREDS) 1 cap PO BID EYE HEALTH 01/11/23 [History Last Taken 04/04/23] gabapentin 300 mg capsule 300 mg PO QHS NEUROPATHY 02/16/23 [History Last Taken 04/03/23] ondansetron 4 mg disintegrating tablet 4 mg PO Q8H PRN NAUSEA 04/04/23 [History Last Taken 04/04/23] ondansetron 4 mg disintegrating tablet 4 mg PO Q8H PRN PRN Nausea #10 tabs 04/04/23 [Rx Last Taken Unknown] MAGIC MOUTH WASH (BMX) 180 mL suspension 5 ml PO Q4H PRN Mouth pain #180 mL 04/20/23 [History Last Taken Unknown] acetaminophen 500 mg tablet 1,000 mg PO Q8H PRN PRN pain 04/20/23 [History Last Taken Unknown] amoxicillin 500 mg capsule 1,000 mg PO BID Infection 04/20/23 [History Last Taken Unknown] benzocaine 6 mg-menthol 10 mg lozenges 1 salvatore mucous membrane Q2H Sore throat 04/20/23 [History Last Taken Unknown] diclofenac sodium 1 % topical gel (Voltaren Arthritis Pain) 2 g topical 4X/DAY Arthritis pain 04/20/23 [History Last Taken Unknown] pantoprazole 40 mg tablet,delayed release 40 mg PO BID Acid reflux 04/20/23 [History Last Taken Unknown] polyethylene glycol 3350 17 gram/dose oral powder 17 g PO DAILY Constipation 04/20/23 [History Last Taken Unknown] sennosides 8.6 mg capsule (senna) 8.6 mg PO BID PRN constipation 04/20/23 [History Last Taken Unknown] ascorbate calcium (vitamin C) 500 mg tablet 500 mg PO DAILY 05/03/23 [History Last Taken Unknown] atorvastatin 10 mg tablet (Lipitor) 10 mg PO QHS 05/03/23 [History Last Taken Unknown] calcium carbonate 200 mg calcium (500 mg) chewable tablet (Tums) 200 mg PO BID 05/03/23 [History Last Taken Unknown] doxepin 10 mg capsule 10 mg PO QHS 05/03/23 [History Last Taken Unknown] fluconazole 100 mg tablet (Diflucan) 100 mg PO DAILY 05/03/23 [History Last Taken Unknown] mirtazapine 7.5 mg tablet 7.5 mg PO QHS 05/03/23 [History Last Taken Unknown] nystatin 100,000 unit/gram topical powder 1 applic topical BID 05/03/23 [History Last Taken Unknown] polysaccharide iron complex 150 mg iron capsule (Ferrex) 150 mg PO DAILY 05/03/23 [History Last Taken Unknown] potassium chloride 20 mEq tablet,extended release 40 meq PO DAILY Supplement 05/03/23 [History Last Taken Unknown] Allergy/AdvReac Type Severity Reaction Status Date / Time Iodinated Contrast Media Allergy Severe Hives Verified 05/03/23 14:45 [Iodinated Contrast- Oral and IV Dye] iodine Allergy Anaphylaxis Verified 05/03/23 14:45 Family History Mother Colon cancer Brother Myeloma Father Heart disease Surgical History History of left heart catheterization (10/22/19) History of left hip replacement History of right hip replacement Hx of arthroscopic knee surgery Hx of bilateral inguinal hernia repair Hx of bladder repair surgery Hx of hysterectomy Hx of partial thyroidectomy Hx of umbilical hernia repair (~2009) Social History (Updated 04/20/23 @ 22:[address] David Avery MD) household members: spouse Smoking Status: Never smoker second hand exposure: No alcohol intake: never substance use type: does not use caffeine: Yes (very rare) what type of physical activity do you participate in: none frequency: does not exercise seatbelt use: always ROS ROS Narrative General: Reportedly had low-grade temp HENT: Has had some sores in her mouth from HSV outbreak, intermittent sharp pain in back of head since [place] EYES: Denies acute changes in vision Resp: Chronic dry cough, several weeks of shortness of breath Cardiac: Denies chest pain GI: Had a little bit of right lower quadrant pain earlier but that is resolved, denies changes in bowel, no nausea or vomiting since Sunday : Britton catheter in place Extremity: Had swelling after [facility] but this is resolved MSK: Generalized weakness legs greater than arms Neuro: Denies any numbness/tingling Heme: Denies any bleeding or bruising Skin: Denies rashes Psychiatric: No complaints voiced Vital Signs Vital Signs Vital Signs: 05/03/23 14:46 05/03/23 14:50 05/03/23 14:50 Temperature 99.2 F H 99.2 F H Temperature Source Oral Temporal Pulse Rate 112 H 112 H Respiratory Rate 24 H 21 H Respiratory Effort Normal Non-Labored Respiratory Pattern Normal Blood Pressure 121/73 H 121/73 H Blood Pressure Mean 89 89 Pulse Ox 98 98 Oxygen Delivery Method Room Air Room Air 05/03/23 15:04 05/03/23 17:08 05/03/23 17:24 Temperature Temperature Source Pulse Rate 94 92 Respiratory Rate 20 H 21 H Respiratory Effort Respiratory Pattern Blood Pressure 117/74 Blood Pressure Mean 88 Pulse Ox 96 Oxygen Delivery Method Room Air 05/03/23 17:30 05/03/23 17:40 05/03/23 17:50 Temperature Temperature Source Pulse Rate 93 87 89 Respiratory Rate 19 H 19 H 19 H Respiratory Effort Respiratory Pattern Blood Pressure Blood Pressure Mean Pulse Ox 96 95 92 Oxygen Delivery Method 05/03/23 18:00 05/03/23 18:10 05/03/23 18:20 Temperature Temperature Source Pulse Rate 86 93 Respiratory Rate 21 H 23 H Respiratory Effort Respiratory Pattern Blood Pressure 113/64 Blood Pressure Mean 80 Pulse Ox 95 97 Oxygen Delivery Method 05/03/23 18:30 05/03/23 18:40 Temperature Temperature Source Pulse Rate 91 93 Respiratory Rate 14 21 H Respiratory Effort Respiratory Pattern Blood Pressure Blood Pressure Mean Pulse Ox 96 96 Oxygen Delivery Method Weight Weight: 61.6 kg Body Mass Index (BMI) 22.6 Physical Exam Narrative General: Alert, oriented, no apparent distress HEENT: Atraumatic, normocephalic, no pain over mastoid processes, no fluid or pus behind tympanic membranes Eyes: Anicteric, normal conjunctiva, extraocular movements grossly intact Neck: Supple Respiratory: Clear to auscultation bilaterally, normal respiratory effort Cardiovascular: Regular rate and rhythm GI: Soft, nontender, nondistended Extremities: No edema Musculoskeletal: Moving all extremities Neuro: No overt focal neurological deficits Skin: No rashes appreciated Psych: Cooperative Results Lab / Micro Data 05/03/23 15:30 05/03/23 15:30 Labs: Laboratory Results - last 24 hr 05/03/23 15:20: Lactic Acid 1.6 05/03/23 15:28: Urine Color Yellow, Urine Clarity Clear, Urine pH 7.0, Ur Specific [place] 1.010, Urine Protein 15 H, Urine Glucose (UA) Normal, Urine Ketones Negative, Urine Occult Blood 25 H, Urine Nitrite Negative, Urine Bilirubin Negative, Urine Urobilinogen Normal, Ur Leukocyte Esterase Negative, Urine RBC 0-5 SEEN, Urine WBC 0 SEEN, Ur Squamous Epith Cells 0 SEEN, Urine Bacteria 0 SEEN, Urine Mucus 0 SEEN, Urine Yeast RARE 05/03/23 15:30: WBC 12.7 H, RBC 3.65 L, Hgb 10.8 L, Hct 33.4 L, MCV 91.5, MCH 29.6, MCHC 32.3, RDW Std Deviation 56.5 H, RDW Coeff of Rashmi 17.2 H, Plt Count 294, MPV 9.7, Immature Gran % (Auto) PATIENT CARE ASSISTANT, Neut % (Auto) PATIENT CARE ASSISTANT, Lymph % (Auto) PATIENT CARE ASSISTANT, [place] % (Auto) PATIENT CARE ASSISTANT, Eos % (Auto) PATIENT CARE ASSISTANT, Baso % (Auto) PATIENT CARE ASSISTANT, Absolute Neuts (auto) 10.8 H, Absolute Lymphs (auto) 1.14, Total Counted 100, Neutrophils % (Manual) 81 H, Band Neutrophils % 4, Lymphocytes % (Manual) 9 L, Monocytes % (Manual) 6, Nucleated RBC % PATIENT CARE ASSISTANT, Diff Path Review July, Platelet Estimate ADEQUATE, RBC Morphology NORM C+C, PT 18.1 H, INR 1.5, APTT 38.1 H, Sodium 136, Potassium 5.7 H, Chloride 108 H, Carbon Dioxide 24.0, Anion Gap 4 L, BUN 35 H, Creatinine 1.14 H, Estim Creat Clear Calc 32.85, Est GFR (MDRD) Af Amer 59 L, Est GFR (MDRD) Non-Af 49 L, BUN/Creatinine Ratio 30.7 H, Glucose 114 H, Calcium 8.6, Total Bilirubin 0.40, AST 59 H, ALT 75 H, Alkaline Phosphatase 156 H, Troponin I High Sens 62 H, Total Protein 6.4, Albumin 2.4 L, Globulin 4.0, Albumin/Globulin R atio 0.6 L 05/03/23 17:18: Troponin I High Sens 64 H Micro: Microbiology 05/03/23 15:28 Mucosa - Nose SARS-CoV-2, Influenza & RSV (PCR) - Final Imaging Radiology Impression Chest X-Ray 05/03/23 16:00 IMPRESSION: No radiographic evidence of acute cardiopulmonary disease. 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: (7) Elevated troponin: (8) Cardiac amyloidosis: (9) Acute hyperkalemia: (10) Elevated liver enzymes: (11) Fever: PLAN: Plan #Generalized weakness, dizziness, fever -Generalized weakness, low-grade fever, low BP on standing, sinus tach, elevated white blood cell count with left shift -UA not particularly remarkable but recently grew ashli in urine and was started on fluconazole -Chest x-ray also unremarkable and COVID/flu/RSV negative -Will check blood cultures and respiratory panel -Check Pro-Naveen, ESR, CRP -Continue IV fluids -Given multiple organ systems distressed will start empiric antibiotics as well while awaiting cultures -Denies any increased pain in her left shoulder -On MRI did have report of bilateral mastoiditis, no pain over mastoid processes, no pus or fluid behind tympanic membranes or abnormalities near canal when viewed with otoscope in ED -Given the reported fever, elevated white blood cell count in conjunction with recent group A strep septic arthritis of shoulder still on antibiotics, possible mastoiditis, oral HSV outbreak, and ?ashli UTI ID consulted for additional input #Elevated troponin -Initial trop 62 with repeat 64 -Suspect this is type II secondary to underlying infection and tachycardia -EKG similar to EKG several days ago, suspect changes may be due to her underlying cardiac amyloidosis -Do not think patient is having acute coronary event -Continue to monitor on telemetry #Hx GERD and GIB w/ FOBT positive -IV PPI -Hemoglobin has been stable over the past several blood draws however patient has been weak, BUN increasing and patient has FOBT positive -GI c/s -Continue to hold systemic anticoagulation #?Ashli UTI -Ashli albicans in Britton catheter urine culture 05/01/2023, treatment was started with Diflucan -Given all of the above and unclear if this was colonized or truly a pathologic infection ID consulted #Hyperkalemia -Hold potassium supplementation -Low potassium diet for now -Patient given fluids in the ED on gentle hydration has been continued -Will repeat BMP, can consider additional interventions if still elevated #Cardiac amyloidosis -Continue tafamidis #recent OLIVER -MRI w/ chronic changes today and reads as bilat mastoiditis but complaints and exam not consistent with that clinically -Headache is sharp and intermittent and she reports more so when she moves her head and has been present since she had intervention on her shoulder -prn Pain control, do not think patient needs urgent neurological consult at this time #Elevated liver enzymes -Likely secondary to underlying illness -Trend -Hold rosuvastatin -Can consider further imaging or w/u if not improving with other measures -Patient does have history of cholecystectomy and previously demonstrated hepatic cysts #Elevated creatinine -1.14 in ED, has been elevated over the past several days slightly above baseline which is usually between 0.8 and 0.95 -Heart rate and blood pressure improved with fluids and patient overall feeling improved with fluids #Hx PE and hypercoagulable state/IVC filter -Off of her AC d/t recent GIB -Pt w/ positive FOBT so do not want to resume at this time -Follows with Dr. Narvaez on outpatient basis -Has IVC filter placed by Dr. Frazier and due to its shifting it was unable to be removed -On previous CT scans IVC filter in place with multiple priors extending through left lateral wall of IVC projecting into the retroperitoneum without change -May need to be evaluated by vascular again on outpatient basis # Pulmonary nodule -Seen on abdominal CT 04/03/2023 as stable 4 mm noncalcified pulmonary nodule in the lingula, can consider follow-up in 12 months #Hypothyroidism -Continue Synthroid #DVT ppx: SCDs oJlene Adorno MD Time spent in the patient's overall evaluation,decision-making process, review of diagnostic data, adjustment of management, discussion with other providers, nursing nursing and ancillary staff involved in patient's care documentation, 78 Minutes Charges/Coding Visit Charges Inpatient E&M: 34356 Init Hosp L3
--- OUTSIDE RECORDS SUMMARY | 2023-05-03 19:55 | XMS RPT_ITS | CCD ---
Author Name Unknown Address [address] [place] [address] Organization [facility] Care Team Providers Care Services Delivery Driver Name Role Phone Aliya COYLE, Gab Primary Care Provider Brayan Pringle MD Unavailable Diane VÁZQUEZ, Fredrick Valdez Unavailable Unavailjayy Leal MD, Jose Unavailable Darrin COYLE, Rito Sanders Unavailable Aliya COYLE, [facility] Primary Care Provider Brayan Pringle MD Unavailable [phone] Fredrick Walker RN Unavailable Unavailjayy Valera MD, Rito Sanders Unavailable Brayan Pringle MD Unavailable Diane Alcala RN Unavailable Unavailjayy Pisano MD, [facility] Care Provider [phone] Brayan Pringle MD Unavailable Diane Alcala RN Unavailable Roberto Valera MD, Rito Sanders Unavailable Aliya COYLE, [facility] Primary Care Provider Fredrick VÁZQUEZ, [...] Care Unavailable GANTA, GAB Primary Care Unavailable FINET, J AYAN Referring Unavailable GANTA, GAB Primary Care Unavailable FINET, J AYAN Referring Unavailable GANTA, GAB Primary Care Unavailable BEAU CHAUDHRY Admitting Unavailable TYLER DONNELLY Attending Unavailable GANTA, GAB Primary Care Unavailable CHO, SUNG LANA L Referring Unavailable GANTA, GAB Primary Care Unavailable FINET, J AYAN Referring Unavailable CHO, SUNG LANA L Attending Unavailable GANTA, GAB Primary Care Unavailable GANTA, GAB Primary Care Unavailable CHO, SUNG LANA L Attending Unavailable CHO, SUNG LANA L Admitting Unavailable GANTA, GAB Primary Care Unavailable NUVIA GRISSOM Attending Unavailable GANTA, GAB Primary Care Unavailable EUGENIO HERNANDEZ Attending Unavailable GANTA, GAB Primary Care Unavailable PERCIC, DEBRA Referring Unavailable GANTA, GAB Primary Care Unavailable Jaquan Boudreaux Referring Unavailable RASHI GRAYSON Attending Unavailable GANTA, GAB Primary Care Unavailable PERCIC, DEBRA Referring Unavailable GANTA, GAB Primary Care Unavailable NUVIA GRISSOM Attending Unavailable GANTA, GAB Primary Care Unavailable DAWN, SANMANSOOREB Referring Unavailabl e GANTA, GAB Primary Care Unavailable DAWNSHIRA Attending Unavailabl e GANTA, GAB Primary Care Unavailable GANTA, GAB Referring Unavailable Courtney MONTANO Referring Unavailable GANTA, GAB Primary Care Unavailable EVI ZAMORA Referring Unavailable GANTA, GAB Primary Care Unavailable EUGENIO HERNANDEZ Attending Unavailable GANTA, GAB Primary Care Unavailable VALERARITO Referring Unavailabl e GANTA, GAB Primary Care Unavailable GANTA, GAB Primary Care Unavailable GANTA, GAB Referring Unavailable GANTA, GAB Primary Care Unavailable GANTA, GAB Referring Unavailable GANTA, GAB Attending Unavailable RITO VALERA Referring Unavailabl e GANTA, GAB Primary Care Unavailable VALERARITO Referring Unavailabl e GANTA, GAB Primary Care Unavailable DAWN, SANJEEB Referring Unavailabl e DAWN, SANMANSOOREB Attending Unavailabl e GANTA, GAB Primary Care Unavailable EUGENIO HERNANDEZ Referring Unavailable GANTA, GAB Primary Care Unavailable FINELiane, J AYAN Referring Unavailable GANTA, GAB Primary Care Unavailable FINET, Genia BAUTISTA Referring Unavailable FINET, Genia BAUTISTA Attending Unavailable [facility] Primary Care Unavailable KYE, MAZEN A Referring Unavailable GANTA, [facility] Primary Care Unavailable KYE, MAZEN A Referring Unavailable GAN, [facility] Primary Care Unavailable DAWN, SANJEEB Referring Unavailabl e [facility] Primary Care Unavailable ELIAN, MARYBEL Attending Unavailable GAN, [facility] Primary Care Unavailable ELIAN, MARYBEL Referring Unavailable PERCIC, DEBRA Referring Unavailable GAN, [facility] Primary Care Unavailable MASCI, OMER A Referring Unavailable MASCI, OMER A Attending Unavailable [facility] Primary Care Unavailable Courtney MONTANO Referring Unavailable KYE, MAZEN A Attending Unavailable [facility] Care Unavailable Courtney MONTANO Referring Unavailable [facility] Primary Care Unavailable MASCI, OMER A Referring Unavailable MASCI, OMER A Attending Unavailable [facility] Care Unavailable Allergies Allergy Classification Reported Allergen(s) Allergy Type Date of Onset Reaction(s) Facility (20 sources) Iodine; Translations: [IODINE] Drug Allergy 12-19-2004 [facility] Medications Current Medications Medication Drug Class(es) [...] Coronary atherosclerosis; Translations: [Atherosclerotic heart disease of [place] coronary artery without angina pectoris] Onset: 2 [...] influenza immunization; Translations: [Encounter for immunization] Episodic Infective arthritis and osteomyelitis (except that caused by tuberculosis or sexually transmitted disease) (1 source) Pyogenic arthritis, unspecified; Translations: [Septic arthritis of shoulder, left (HCC)] Onset: 4 Episodic Malaise and fatigue (1 source) Fatigue; [...] Chronic Other nervous system disorders (1 source) Carpal tunnel syndrome, bilateral upper limbs; Translations: [Carpal tunnel syndrome, bilateral] Onset: 4 Chronic Other nervous system disorders (1 source) Polyneuropathy, unspecified; Translations: [Neuropathy] Onset: 3 Chronic Other non-traumatic joint disorders (2 sources) [...] state; Translations: [Other specified postprocedural states] Episodic Shock (1 source) Shock, unspecified; Translations: [Shock (HCC)] Onset: 4 Episodic Spondylosis; intervertebral disc disorders; other back [...] sources) Long-term current use of anticoagulant; Translations: [medical terminologist (current) use of anticoagulants] Onset: 04-17-2016 04-17-2016 [...] Date Time Vital Sign Value Performing Clinician Faci lity 02-05-2023 14:51-0500 Body height 162.6 cm Omer Narvaez [employer] Work Phone: [facility] 02-05-2023 14:51-0500 Body temperature 97.5 [degF] Omer Solange DO Work Phone: [facility] 02-05-2023 14:51-0500 Body weight 61.69 kg Omer Sharitaluis [employer] Work Phone: [facility] 02-05-2023 14:51-0500 Diastolic blood pressure 73 mm[Hg] Omer Sheriffi DO Work Phone: [facility] 02-05-2023 14:51-0500 Heart rate 69 /min Omer Sheriffi DO Work Phone: [facility] 02-05-2023 14:51-0500 SaO2% (BldA) [Mass fraction] 96 % Omer Sheriffi DO Work Phone: [facility] 02-05-2023 14:51-0500 Systolic blood pressure 117 mm[Hg] Omer Sheriffi DO Work Phone: [facility] 01-29-2023 13:35-0400 Body height 165.1 cm Shira Seymour MD Work Phone: [facility] 01-29-2023 13:35-0400 Body temperature 97.9 [degF] Shira Seymour MD Work Phone: [facility] 01-29-2023 13:35-0400 Body weight 61.01 kg Shira Seymour MD Work Phone: [facility] 01-29-2023 13:35-0400 Diastolic blood pressure 67 mm[Hg] Shira Seymour MD Work Phone: [facility] 01-29-2023 13:35-0400 Heart rate 63 /min Shira Seymour MD Work Phone: [facility] 01-29-2023 13:35-0400 Respiratory rate 18 /min Shira Seymour MD Work Phone: [facility] 01-29-2023 13:35-0400 SaO2% (BldA) [Mass fraction] 96 % Shira Seymour MD Work Phone: [facility] 01-29-2023 13:35-0400 Systolic blood pressure 122 mm[Hg] Shira Seymour MD Work Phone: [facility] 12-07-2022 09:12-0400 Body weight 60.33 kg Nuvia Older POSITION DESCRIPTION MANAGER.MATH AND SCIENCE INSTRUCTOR Work Phone: [facility] 12-07-2022 09:12-0400 Diastolic blood pressure 70 mm[Hg] Nuvia Older POSITION DESCRIPTION MANAGER.MATH AND SCIENCE INSTRUCTOR Work Phone: [facility] 12-07-2022 09:12-0400 Heart rate 68 /min Nuvia Older POSITION DESCRIPTION MANAGER.MATH AND SCIENCE INSTRUCTOR Work Phone: [facility] 12-07-2022 09:12-0400 Respiratory rate 16 /min Nuvia Older POSITION DESCRIPTION MANAGER.MATH AND SCIENCE INSTRUCTOR Work Phone: [facility] 12-07-2022 09:12-0400 SaO2% (BldA) [Mass fraction] 96 % Nuvia Older POSITION DESCRIPTION MANAGER.MATH AND SCIENCE INSTRUCTOR Work Phone: [facility] 12-07-2022 09:12-0400 Systolic blood pressure 118 mm[Hg] Nuvia Older POSITION DESCRIPTION MANAGER.MATH AND SCIENCE INSTRUCTOR Work Phone: [facility] 12-05-2022 09:52-0400 Body weight 60.33 kg Eugenio Hernandez MD Work Phone: [facility] 12-05-2022 09:52-0400 Diastolic blood pressure 76 mm[Hg] Eugenio Hernandez MD Work Phone: [facility] 12-05-2022 09:52-0400 Heart rate 72 /min Eugenio Hernandez MD Work Phone: [facility] 12-05-2022 09:52-0400 Respiratory rate 16 /min Eugenio Hernandez MD Work Phone: [facility] 12-05-2022 09:52-0400 Systolic blood pressure 126 mm[Hg] Eugenio Hernandez MD Work Phone: [facility] 11-22-2022 17:36-0400 Body temperature 97.59 [degF] Nuvia Older POSITION DESCRIPTION MANAGER.MATH AND SCIENCE INSTRUCTOR Work Phone: [facility] 11-22-2022 17:36-0400 Body weight 61.24 kg Nuvia Older POSITION DESCRIPTION MANAGER.MATH AND SCIENCE INSTRUCTOR Work Phone: [facility] 11-22-2022 17:36-0400 Diastolic blood pressure 84 mm[Hg] Nuvia Older POSITION DESCRIPTION MANAGER.MATH AND SCIENCE INSTRUCTOR Work Phone: [facility] 11-22-2022 17:36-0400 Heart rate 78 /min Nuvia Older POSITION DESCRIPTION MANAGER.MATH AND SCIENCE INSTRUCTOR Work Phone: [facility] 11-22-2022 17:36-0400 Respiratory rate 16 /min Nuvia Older POSITION DESCRIPTION MANAGER.MATH AND SCIENCE INSTRUCTOR Work Phone: [facility] 11-22-2022 17:36-0400 SaO2% (BldA) [Mass fraction] 98 % Nuvia Older POSITION DESCRIPTION MANAGER.MATH AND SCIENCE INSTRUCTOR Work Phone: [facility] 11-22-2022 17:36-0400 Systolic blood pressure 132 mm[Hg] Nuvia Older POSITION DESCRIPTION MANAGER.MATH AND SCIENCE INSTRUCTOR Work Phone: [facility] 11-08-2022 11:40-0400 Body height 165.1 cm Shira Seymour MD Work Phone: [facility] 11-08-2022 11:40-0400 Body temperature 98.1 [degF] Shira Seymour MD Work Phone: [facility] 11-08-2022 11:40-0400 Body weight 61.24 kg Shira Seymour MD Work Phone: [facility] 11-08-2022 11:40-0400 Diastolic blood pressure 70 mm[Hg] Shira Seymour MD Work Phone: [facility] 11-08-2022 11:40-0400 Heart rate 64 /min Shira Seymour MD Work Phone: [facility] 11-08-2022 11:40-0400 Respiratory rate 15 /min Shira Seymour MD Work Phone: [facility] 11-08-2022 11:40-0400 SaO2% (BldA) [Mass fraction] 96 % Shira Seymour MD Work Phone: [facility] 11-08-2022 11:40-0400 Systolic blood pressure 132 mm[Hg] Shira Seymour MD Work Phone: [facility] 10-12-2022 15:08-0400 Body weight 61.24 kg Eugenio Hernandez MD Work Phone: [facility] 10-12-2022 15:08-0400 Diastolic blood pressure 74 mm[Hg] Eugenio Hernandez MD Work Phone: [facility] 10-12-2022 15:08-0400 Heart rate 68 /min Eugenio Hernandez MD Work Phone: [facility] 10-12-2022 15:08-0400 Respiratory rate 16 /min Eugenio Hernandez MD Work Phone: [facility] 10-12-2022 15:08-0400 Systolic blood pressure 130 mm[Hg] Eugenio Hernandez MD Work Phone: [facility] 08-07-2022 14:21-0400 Body temperature 97.59 [degF] Omer Masci DO Work Phone: [facility] 08-07-2022 14:21-0400 Body weight 61.69 kg Omer Masci DO Work Phone: [facility] 08-07-2022 14:21-0400 Diastolic blood pressure 74 mm[Hg] Omer Masci DO Work Phone: [facility] 08-07-2022 14:21-0400 Heart rate 73 /min Omer Masci DO Work Phone: [facility] 08-07-2022 14:21-0400 Systolic blood pressure 125 mm[Hg] Omer Masci DO Work Phone: [facility] 06-26-2022 17:31-0400 Body temperature 97.81 [degF] Sandra GARCIA Work Phone: [facility] 06-26-2022 17:31-0400 Body weight 62.78 kg Krislyn Aberegg PA Work Phone: [facility] 06-26-2022 17:31-0400 Diastolic blood pressure 72 mm[Hg] Krislyn Aberegg PA Work Phone: [facility] 06-26-2022 17:31-0400 Heart rate 70 /min Krislyn Aberegg PA Work Phone: [facility] 06-26-2022 17:31-0400 Respiratory rate 18 /min Krislyn Aberegg PA Work Phone: [facility] 06-26-2022 17:31-0400 SaO2% (BldA) [Mass fraction] 98 % Krislyn Aberegg PA Work Phone: [facility] 06-26-2022 17:31-0400 Systolic blood pressure 124 mm[Hg] Krislyn Aberegg PA Work Phone: [facility] 06-02-2022 09:41-0500 Body height 165.1 cm Gab Pisano MD Work Phone: [facility] 06-02-2022 09:41-0500 Body temperature 97.39 [degF] Gab Pisano MD Work Phone: [facility] 06-02-2022 09:41-0500 Body weight 62.14 kg Gab Pisano MD Work Phone: [facility] 06-02-2022 09:41-0500 Diastolic blood pressure 68 mm[Hg] Gab Pisano MD Work Phone: [facility] 06-02-2022 09:41-0500 Heart rate 65 /min Gab Pisano MD Work Phone: [facility] 06-02-2022 09:41-0500 Respiratory rate 12 /min Gab Pisano MD Work Phone: [facility] 06-02-2022 09:41-0500 SaO2% (BldA) [Mass fraction] 99 % Gab Pisano MD Work Phone: [facility] 06-02-2022 09:41-0500 Systolic blood pressure 118 mm[Hg] Gab Pisano MD Work Phone: [facility] 05-22-2022 15:07-0500 Body height 165.1 cm KOURTNEY Ruby MD Work Phone: [facility] 05-22-2022 15:07-0500 Body temperature 98.49 [degF] KOURTNEY Ruby MD Work Phone: [facility] 05-22-2022 15:07-0500 Body weight 61.28 kg KOURTNEY Ruby MD Work Phone: [facility] 05-22-2022 15:07-0500 Diastolic blood pressure 72 mm[Hg] KOURTNEY Ruby MD Work Phone: [facility] 05-22-2022 15:07-0500 Heart rate 80 /min KOURTNEY Ruby MD Work Phone: [facility] 05-22-2022 15:07-0500 Respiratory rate 16 /min KOURTNEY Ruby MD Work Phone: [facility] 05-22-2022 15:07-0500 SaO2% (BldA) [Mass fraction] 96 % KOURTNEY Ruby MD Work Phone: [facility] 05-22-2022 15:07-0500 Systolic blood pressure 119 mm[Hg] KOURTNEY Ruby MD Work Phone: [facility] 04-11-2022 08:33-0500 Body height 165.1 cm Saurav Yo PA-C Work Phone: [facility] 04-11-2022 08:33-0500 Body temperature 98.2 [degF] Saurav Yo PA-C Work Phone: [facility] 04-11-2022 08:33-0500 Body weight 61.24 kg Saurav Yo PA-C Work Phone: [facility] 04-11-2022 08:33-0500 Diastolic blood pressure 78 mm[Hg] Saurav Yo PA-C Work Phone: [facility] 04-11-2022 08:33-0500 Heart rate 96 /min Saurav Yo PA-C Work Phone: [facility] 04-11-2022 08:33-0500 Respiratory rate 14 /min Saurav Yo PA-C Work Phone: [facility] 04-11-2022 08:33-0500 SaO2% (BldA) [Mass fraction] 98 % Saurav Yo PA-C Work Phone: [facility] 04-11-2022 08:33-0500 Systolic blood pressure 104 mm[Hg] Saurav Yo PA-C Work Phone: [facility] 04-07-2022 10:14-0500 Body height 165.1 cm Mario Plescia PA-C Work Phone: [facility] 04-07-2022 10:14-0500 Body weight 60.33 kg Mario Plescia PA-C Work Phone: [facility] 04-07-2022 10:14-0500 Diastolic blood pressure 78 mm[Hg] Mario Plescia PA-C Work Phone: [facility] 04-07-2022 10:14-0500 Heart rate 75 /min Mario Plescia PA-C Work Phone: [facility] 04-07-2022 10:14-0500 Systolic blood pressure 135 mm[Hg] Mario Plescia PA-C Work Phone: [facility] 03-07-2022 11:05-0500 Body temperature 97.59 [degF] Omer Masci DO Work Phone: [facility] 03-07-2022 11:05-0500 Body weight 62.6 kg Omer Masci DO Work Phone: [facility] 03-07-2022 11:05-0500 Diastolic blood pressure 77 mm[Hg] Omer Masci DO Work Phone: [facility] 03-07-2022 11:05-0500 Heart rate 79 /min Omer Masci DO Work Phone: [facility] 03-07-2022 11:05-0500 Systolic blood pressure 126 mm[Hg] Omer Masci DO Work Phone: [facility] 03-02-2022 14:45-0500 Body temperature 97.9 [degF] [employer] Work Phone: [facility] 02-20-2022 17:58-0500 Body temperature 97.7 [degF] Eugenio Hernandez MD Work Phone: [facility] 02-20-2022 17:58-0500 Body weight 61.69 kg Eugenio Hernandez MD Work Phone: [facility] 02-20-2022 17:58-0500 Diastolic blood pressure 74 mm[Hg] Eugenio Hernandez MD Work Phone: [facility] 02-20-2022 17:58-0500 Heart rate 76 /min Eugenio Hernandez MD Work Phone: [facility] 02-20-2022 17:58-0500 Respiratory rate 12 /min Eugenio Hernandez MD Work Phone: [facility] 02-20-2022 17:58-0500 Systolic blood pressure 130 mm[Hg] Eugenio Hernandez MD Work Phone: [facility] 02-06-2022 14:18-0500 Body height 162.6 cm Omer Masci DO Work Phone: [facility] 02-06-2022 14:18-0500 Body temperature 97.3 [degF] Omer Masci DO Work Phone: [facility] 02-06-2022 14:18-0500 Body weight 63.28 kg Omer Masci DO Work Phone: [facility] 02-06-2022 14:18-0500 Diastolic blood pressure 69 mm[Hg] Omer Masci DO Work Phone: [facility] 02-06-2022 14:18-0500 Heart rate 87 /min Omer Sheriffi DO Work Phone: [facility] 02-06-2022 14:18-0500 SaO2% (BldA) [Mass fraction] 100 % Omer Sheriffi DO Work Phone: [facility] 02-06-2022 14:18-0500 Systolic blood pressure 112 mm[Hg] Omer Sheriffi DO Work Phone: [facility] 01-31-2022 08:45-0400 Body height 165.1 cm Brayan Ahn MD Work Phone: [facility] 01-31-2022 08:45-0400 Body temperature 97.9 [degF] Brayan Ahn MD Work Phone: [facility] 01-31-2022 08:45-0400 Body weight 61.6 kg Brayan Ahn MD Work Phone: [facility] 01-31-2022 08:45-0400 Diastolic blood pressure 78 mm[Hg] Brayan Ahn MD Work Phone: [facility] 01-31-2022 08:45-0400 Heart rate 102 /min Brayan Ahn MD Work Phone: [facility] 01-31-2022 08:45-0400 SaO2% (BldA) [Mass fraction] 95 % Brayan Ahn MD Work Phone: [facility] 01-31-2022 08:45-0400 Systolic blood pressure 116 mm[Hg] Brayan Ahn MD Work Phone: [facility] 01-18-2022 17:57-0400 Body weight 61.69 kg Nuvia Older POSITION DESCRIPTION MANAGER.MATH AND SCIENCE INSTRUCTOR Work Phone: [facility] 01-18-2022 17:57-0400 Diastolic blood pressure 70 mm[Hg] Nuvia Older POSITION DESCRIPTION MANAGER.MATH AND SCIENCE INSTRUCTOR Work Phone: [facility] 01-18-2022 17:57-0400 Heart rate 83 /min Nuvia Older POSITION DESCRIPTION MANAGER.MATH AND SCIENCE INSTRUCTOR Work Phone: [facility] 01-18-2022 17:57-0400 Respiratory rate 16 /min Nuvia Older POSITION DESCRIPTION MANAGER.MATH AND SCIENCE INSTRUCTOR Work Phone: [facility] 01-18-2022 17:57-0400 SaO2% (BldA) [Mass fraction] 96 % Nuvia Older POSITION DESCRIPTION MANAGER.MATH AND SCIENCE INSTRUCTOR Work Phone: [facility] 01-18-2022 17:57-0400 Systolic blood pressure 112 mm[Hg] Nuvia Older POSITION DESCRIPTION MANAGER.MATH AND SCIENCE INSTRUCTOR Work Phone: [facility] 01-02-2022 13:38-0400 Body weight 61.69 kg Nuvia Older POSITION DESCRIPTION MANAGER.MATH AND SCIENCE INSTRUCTOR Work Phone: [facility] 01-02-2022 13:38-0400 Diastolic blood pressure 66 mm[Hg] Nuvia Older POSITION DESCRIPTION MANAGER.MATH AND SCIENCE INSTRUCTOR Work Phone: [facility] 01-02-2022 13:38-0400 Heart rate 68 /min Nuvia Older POSITION DESCRIPTION MANAGER.MATH AND SCIENCE INSTRUCTOR Work Phone: [facility] 01-02-2022 13:38-0400 Respiratory rate 16 /min Nuvia Older POSITION DESCRIPTION MANAGER.MATH AND SCIENCE INSTRUCTOR Work Phone: [facility] 01-02-2022 13:38-0400 Systolic blood pressure 112 mm[Hg] Nuvia Older POSITION DESCRIPTION MANAGER.MATH AND SCIENCE INSTRUCTOR Work Phone: [facility] 12-06-2021 14:21-0400 Body height 163.8 cm Rito Valera MD Work Phone: [facility] 12-06-2021 14:21-0400 Body weight 63.05 kg Rito Valera MD Work Phone: [facility] 12-06-2021 14:21-0400 Diastolic blood pressure 75 mm[Hg] Rito Vlaera MD Work Phone: [facility] 12-06-2021 14:21-0400 Heart rate 89 /min Rito Valera MD Work Phone: [facility] 12-06-2021 14:21-0400 SaO2% (BldA) [Mass fraction] 95 % Rito Valera MD Work Phone: [facility] 12-06-2021 14:21-0400 Systolic blood pressure 119 mm[Hg] Rito Valera MD Work Phone: [facility] 10-06-2021 14:30-0400 Body temperature 96.8 [degF] Willis Amaral MD Work Phone: [facility] 10-06-2021 14:30-0400 Body weight 62.32 kg Willis Amaral MD Work Phone: [facility] 10-06-2021 14:30-0400 Diastolic blood pressure 80 mm[Hg] Willis Amaral MD Work Phone: [facility] 10-06-2021 14:30-0400 Heart rate 98 /min Willis Amaral MD Work Phone: [facility] 10-06-2021 14:30-0400 Respiratory rate 20 /min Willis Amaral MD Work Phone: [facility] 10-06-2021 14:30-0400 SaO2% (BldA) [Mass fraction] 96 % Willis Amaral MD Work Phone: [facility] 10-06-2021 14:30-0400 Systolic blood pressure 108 mm[Hg] Willis Amaral MD Work Phone: [facility] 09-15-2021 13:41-0400 Body height 160 cm [employer] Work Phone: [facility] 09-15-2021 13:41-0400 Body temperature 96.8 [degF] [employer] Work Phone: [facility] 09-15-2021 13:41-0400 Body weight 61.24 kg [employer] Work Phone: [facility] 09-15-2021 13:41-0400 Diastolic blood pressure 75 mm[Hg] [employer] Work Phone: [facility] 09-15-2021 13:41-0400 Heart rate 72 /min [employer] Work Phone: [facility] 09-15-2021 13:41-0400 Respiratory rate 16 /min [employer] Work Phone: [facility] 09-15-2021 13:41-0400 SaO2% (BldA) [Mass fraction] 99 % [employer] Work Phone: [facility] 09-15-2021 13:41-0400 Systolic blood pressure 130 mm[Hg] [employer] Work Phone: [facility] 09-08-2021 09:22-0400 Body temperature 97.2 [degF] Gab Pisano MD Work Phone: [facility] 09-08-2021 09:22-0400 Body weight 63.5 kg Gab Pisano MD Work Phone: [facility] 09-08-2021 09:22-0400 Diastolic blood pressure 78 mm[Hg] Gab Pisano MD Work Phone: [facility] 09-08-2021 09:22-0400 Heart rate 88 /min Gab Pisano MD Work Phone: [facility] 09-08-2021 09:22-0400 SaO2% (BldA) [Mass fraction] 98 % Gab Pisano MD Work Phone: [facility] 09-08-2021 09:22-0400 Systolic blood pressure 130 mm[Hg] Gab Pisano MD Work Phone: [facility] 08-05-2021 14:36-0400 Body temperature 97 [degF] Omer Narvaez DO Work Phone: [facility] 08-05-2021 14:36-0400 Body weight 64.64 kg Omer Narvaez DO Work Phone: [facility] 08-05-2021 14:36-0400 Diastolic blood pressure 63 mm[Hg] Omer Sheriffi DO Work Phone: [facility] 08-05-2021 14:36-0400 Heart rate 80 /min Omer Sheriffi DO Work Phone: [facility] 08-05-2021 14:36-0400 Systolic blood pressure 120 mm[Hg] Omer Narvaez DO Work Phone: [facility] 06-22-2021 11:57-0400 Body height 165.1 cm KOURTNEY Ruby MD Work Phone: [facility] 06-22-2021 11:57-0400 Body weight 63.37 kg KOURTNEY Ruby MD Work Phone: [facility] 06-22-2021 11:57-0400 Diastolic blood pressure 74 mm[Hg] KOURTNEY Ruby MD Work Phone: [facility] 06-22-2021 11:57-0400 Heart rate 85 /min KOURTNEY Ruby MD Work Phone: [facility] 06-22-2021 11:57-0400 SaO2% (BldA) [Mass fraction] 98 % KOURTNEY Ruby MD Work Phone: [facility] 06-22-2021 11:57-0400 Systolic blood pressure 128 mm[Hg] KOURTNEY Ruby MD Work Phone: [facility] Encounters Encounter Date Encounter Type Care Provider Facility Start: 04-13-2023 End: 04-13-2023 Evaluation and management of inpatient DEBRA PERCIC Facility:[facility] Start: 04-13-2023 End: 04-13-2023 ambulatory DEBRA PERCIC Facility:[facility] Start: 04-12-2023 End: 04-12-2023 Evaluation and management of inpatient Jaquan Boudreaux Facility:[facility] Start: 04-05-2023 End: 04-20-2023 Evaluation and management of inpatient BEAU RICHA Facility:[facility] Start: 04-03-2023 Encounter for examination for normal comparison and control in clinical research program GAB PISANO [facility] Start: 03-31-2023 End: 04-03-2023 ambulatory GAB PISANO Facility:[facility] Start: 03-30-2023 End: 03-31-2023 ambulatory MARYBEL ELIAN Facility:[facility] Start: 03-30-2023 Patient encounter procedure GAB PISANO [facility] Start: 03-30-2023 End: 03-30-2023 ambulatory SHIRA SEYMOUR Facility:[facility] Start: 03-30-2023 End: 03-31-2023 ambulatory GAB PISANO Facility:[facility] Start: 03-14-2023 Patient encounter procedure Terrance Valentin [...] abdominal real time w/image limited Nuvia Older POSITION DESCRIPTION MANAGER.MATH AND SCIENCE INSTRUCTOR Work Phone: Start: 01-18-2022 Urnls dip stick/tablet rgnt auto w/o microscopy Nuvia Older POSITION DESCRIPTION MANAGER.MATH AND SCIENCE INSTRUCTOR Work Phone: Start: 01-02-2022 INFLUENZA SEASONAL QUADRIVALENT HIGH DOSE AGE 65+ Nuvia Older POSITION DESCRIPTION MANAGER.MATH AND SCIENCE INSTRUCTOR Work Phone: Start: 03-15-2021 Adult depression screening assessment Doreen MARTINS History of cholecystectomy S/P laparoscopic cholecystectomy Aneesh Kaplan MD Work Phone: Plan of Treatment Date Care Activity Detail Author Start: 08-07-2025 DIABETES SCREEN [facility]ET[facility] SCREEN [facility] Start: 08-07-2025 Diabetes Screening Diabetes Screenin [facility] Start: 06-13-2025 DIABETES SCREEN [facility] Start: 05-29-2025 DIABETES SCREEN [facility] Start: 04-07-2025 DIABETES SCREEN DIABETES SCREEN [facility] Start: 03-31-2025 DIABETES SCREEN DIABETES SCREEN [facility] Start: 03-02-2025 DIABETES SCREEN DIABETES SCREEN [facility] Start: 01-31-2025 DIABETES SCREEN DIABETES SCREEN [facility] Start: 01-19-2025 DIABETES SCREEN DIABETES SCREEN [facility] Start: 12-29-2024 DIABETES SCREEN DIABETES SCREEN [facility] Start: 09-25-2024 Urine microalbumin profile [facility] Start: 09-05-2024 DIABETES SCREEN DIABETES SCREEN [facility] Start: 05-30-2024 DIABETES SCREEN DIABETES SCREEN [facility] Start: 12-08-2023 Covid-19 Vaccine ( season) Covid-19 Vaccine () [facility] Immunizations Immunization Date Immunization Notes Care Provider Fa cilirochelle 12-05-2022 influenza (HD-IIV4) vaccine, age 65+ yr, high dose, quadrivalent, PF (FLUZONE HIGH-DOSE) Eugenio Hernandez MD Work Phone: [facility] Work Phone: 01-02-2022 influenza, high-dose , quadrivalent vaccine (FLUZONE HIGH DOSE QUADRIVALENT) Nuvia Grissom APRN.[facility] Work Phone: [facility] 03-02-2021 influenza, high-dose , quadrivalent vaccine (FLUZONE HIGH DOSE QUADRIVALENT) [facility] 06-09-2020 COVID-19 vaccine, fu ll dose (MODERNA) [facility] Work Phone: 05-13-2020 COVID-19 vaccine, fu ll dose (MODERNA) [facility] Work Phone: 01-20-2020 zoster vaccine recombinant Eugenio Hernandez MD Work Phone: [facility] Work Phone: 10-09-2019 zoster vaccine recombinant Eugenio Hernandez MD Work Phone: [facility] Work Phone: 05-06-2019 pneumococcal polysaccharide vaccine, 23 valent [facility] 11-28-2017 influenza, high dose seasonal, preservative-free [facility] Work Phone: 01-29-2017 influenza, high dose seasonal, preservative-free [facility] Work Phone: 12-30-2014 influenza, seasonal, injectable [facility] 09-25-2014 pneumococcal conjuga te vaccine, 13 valent [facility] 09-25-2014 tetanus toxoid, redu julio césar diphtheria toxoid, and acellular pertussis vaccine, adsorbed [facility] 12-29-2013 influenza, seasonal, injectable [facility] 03-20-2012 influenza virus vacc ine, unspecified formulation [facility] Work Phone: 01-30-2011 [facility] 01-11-2011 influenza virus vacc ine, unspecified formulation [facility] 02-17-2010 influenza virus vacc ine, unspecified formulation [facility] 12-25-2008 influenza virus vacc ine, unspecified formulation [facility] Work Phone: 02-06-2008 influenza virus vacc ine, unspecified formulation [facility] 03-01-2007 influenza virus vacc ine, unspecified formulation [facility] 02-19-2006 influenza virus vacc ine, unspecified formulation [facility] Work Phone: 01-16-2006 pneumococcal polysaccharide vaccine, 23 valent [facility] 05-16-2005 tetanus and diphther ia toxoids, adsorbed, preservative free, for adult use (2 Lf of tetanus toxoid and 2 Lf of diphtheria toxoid) [facility] Payers Date Payer Category Payer Medicare [id number] 2019 Unknown MMO MMO MEDICARE SUPPLEMENT [id number] 2019-Present [phone] [address] [place] [address] Indemnity [id number] 2019 Unknown MMO MMO MEDICARE SUPPLEMENT [id number] 2019-Present [phone] [address] [place] [address] Indemnity [id number] 2005 Medicare MEDICARE MEDICAR E A AND B [id number] 2005-Present [phone] [address] [address] [place] [address] Medicare [id number] 2005 Medicare MEDICARE MEDICAR E A AND B [id number] 2005-Present [phone] [address] [address] [place] [address] Medicare [id number] 2005 Medicare [id number] Social History Date Type Detail Facility Tobacco smoking stat [facility] Never smoked tobacco [facility] Start: 06-22-2021 End: 02-05-2023 Alcohol intake Current non-drinker of alcohol (finding) [facility] Start: 05-06-2019 History SDOH Financial 5 [facility] Start: 05-06-2019 History SDOH Food Worry 1 [facility] Start: 05-06-2019 History SDOH Transpo rt Med 2 [facility] Start: 1940 Sex Assigned At Female C [facility] Start: 06-12-2021 End: 03-01-2022 Exposure to SARS-CoV-2 (event) Not sure [facility] Start: 06-19-2021 End: 12-26-2021 Exposure to SARS-CoV-2 (event) Unable to assess [facility] Start: 08-07-2022 End: 10-12-2022 History of Social function [facility] Work Phone: Start: 08-07-2022 End: 10-12-2022 Tobacco use panel [facility] Work Phone: Adult Depression Screening Assessment 0 [facility] Work Phone: Start: 12-03-2019 Gender identity Identifies as female gender (finding) [facility] Start: 02-06-2020 Sexual orientation Heterosexual (anand solomon) [facility] (I/We) worried wheth er (my/our) food would run out before (I/we) got money to buy more. Never true [facility] Medical Equipment Procedure Code Equipment Code Equipment Origin al Text Equipment Identifier Dates Head V40 32mm 0m m Offset Taper Biolox Delta Femoral Hip - [id number] Start: 05-05-2019 Stem Accolade Ii 4 132d Femoral - [id number] Start: 05-05-2019 Liner 32mm 10d D X3 5.9mm Acetabular Hip - [id number] Start: 05-05-2019 Shell Trident Ii 50mm D Tritanium Acetabular 3 Screw Hole Cluster Sterile - [id number] Start: 05-05-2019 Mesh Srg 24x4cm Restorelle Y - [id number] Start: 11-04-2014 Screw Trident Ii 6.5mm 25mm Bone Low Profile Hexagonal Sterile - [id number] Start: 05-05-2019 Screw Trident Ii 6.5mm 20mm Bone Low Profile Hexagonal Sterile - [id number] Start: 05-05-2019 Sling Pubvagnl Monarc Sbfsc - [id number] Start: 11-04-2014 Goals Date Patient Goal [...] 01/29/23 Kendal Akers documented in this encounter [facility] 02-05-2023 Note HNO ID: [id number] Author: Omer Narvaez, DO Service: ? Author [...] and was discharged. Was seen by a bench boring machine operator at a tertiary center. Testing suggested that [...] once day. -Follow-up (more content not included)... [facility] 02-05-2023 History of Present illness Narrative [...] and was discharged. Was seen by a bench boring machine operator at a tertiary center. Testing suggested that [...] which included preparing to see the patient, [id number] patient care, completing clinical documentation, obtaining and/or reviewing separately obtained history, performing a medically appropriate examination, counseling and educating the patient/family/caregiver, communicating with other HCPs (not separately reported), and communicating results to the patient/family/caregiver. Omer Narvaez DO documented in this encounter [facility] 01-29-2023 Note HNO ID: [id number] Author: Shira Seymour MD Service: ? 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/12/2008 [...] FLX DX W/COLLJ SPEC WHEN PFRMD 06/23/2011 [facility] Colonoscopy COLONOSCOPY FLX DX W/COLLJ SPEC WHEN PFRMD 03/05/2014 Colonoscopy COLSC FLX W/REMOVAL LESION BY HOT BX FORCEPS 03/12/2008 EGD TRANSORAL BIOPSY SINGLE/MULTIPLE 03/12/2008 EGD TRANSORAL BIOPSY SINGLE/MULTIPLE 09/30/2012 ESOPHAGOGASTRODUODENOSCOPY TRANSORAL DIAGNOSTIC 06/10/2015 EGD HYSTERECTOMY, REVISE VAGINA; COLPECTOMY 1980 Hysterectomy with bladder repair still ovaries ARTEAGA W/O FACETEC FORAMOT/DSC 1/2 VRT SGM CRV 2002 Discectomy and fusion, cervical LAPAROSCOPIC CHOLECYSTECTOMY 03/29/2022 [...] Colon Cancer Mother Coronary Artery Disease Father [place] 45 Cancer Brother multiple myeloma None Daughter None Daughter other (heart attack) Son other (fibramyalgia) Son other (blood clots in lungs) Son ALLERGIES: ALLERGIES Allergen Reactions Iodine Hives CURRENT MEDICATIONS: traMADol (ULTRAM) 50 mg tabletTake 1 tablet by mouth every 6 hours as needed for up to 99 days.Disp: 28 tabletRfl: 0 metoprolol succinate ER (TOPROL XL) 25 mg (more content not included)... [facility] 01-29-2023 History of Present illness Narrative Images from the original note were not included. 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's 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/12/2008 Chest pain Cholecystitis 05/22/2022 Chronic kidney disease (CKD), stage III (moderate) ([facility]) 07/27/2016 Coronary artery disease due to calcified coronary lesion 06/22/2021 Diverticulitis Diverticulosis of colon (without mention of hemorrhage) Diverticulosis of colon with hemorrhage DVT (deep venous thrombosis) ([facility]) After knee surgery Dysmetabolic syndrome X Hemorrhage [...] total, left ARTHRP ACETBLR/PROX FEM PROSTC AGRFT/ALGRFT 2003 left hip COLONOSCOPY FLX DX W/COLLJ SPEC WHEN PFRMD 09/15/1998 Colonoscopy COLONOSCOPY FLX DX W/COLLJ SPEC WHEN PFRMD 08/07/2005 Colonoscopy COLONOSCOPY FLX DX W/COLLJ SPEC WHEN PFRMD 06/23/2011 [facility] Colonoscopy COLONOSCOPY FLX DX W/COLLJ SPEC [...] Colon Cancer Mother Coronary Artery Disease Father [place] 45 Cancer Brother multiple myeloma None Daughter [...] FOR LVH, MAY BE NORMAL VARIANT ( [place] product ) INFERIOR MYOCARDIAL INFARCTION , AGE UNDETERMINED ANTEROSEPTAL MYOCARDIAL INFARCTION , AGE UNDETERMINED ABNORMAL ECG Confirmed by ANH RUIZ MD ([id number]) on 11/14/2022 9:12:39 PM IMPRESSION: NYHA Functional [...] non-medical management as above. Shira Seymour MD [facility] Section Of Heart Failure and Cardiac Transplant Medicine [facility] Desk [address] [place] [address] documented in this encounter [facility] 01-26-2023 Note HNO ID: [id number] Author: Diane Alcala RN Service: ? Author [...] pounds in a week? No Based on data support specialist, the following disposition is advised: No symptoms or symptoms present, not severe. Routed to: No Action Needed YOUNG Education Provided this Outreach: Yes Diane Alcala RN January 26, 2023 11:24 AM [facility] 01-26-2023 History of Present illness Narrative [...] pounds in a week? No Based on data support specialist, the following disposition is advised: No symptoms [...] 2023 1:47 PM documented in this encounter [facility] documented in this encounter [facility]10-26-2023 NoteHNO ID: [id number] Author: Diane Alcala RN Service: ? Author [...] Diane Alcala RN January 25, 2023 1[facility] NotePatient Outreach ([facility]) YRIS VILLAGOMEZ ([id number]) 1940 F Date Time Provider Department 01/25/23 DIANE ALCALA [facility] During your visit today, we recorded the following information about you: Diane Alcala RN 01/26/2023 11:49 AM Signed CD Telephonic Outreach Provider Action/FYI CDM: CKD, CHF, Hx: Cardiac Amyloidosis, PE, DVT, Post-phlebitic syndrome, Chronic Anticoagulation Left a message to verify symptom status, instructed to call PCP with any changes in condition or needs. Contacted for: Routine Telephonic Outreach Contact made with patient: No, left message. Diane Alcala RN January 25, 2023 1:47 PM Diane Alcala RN 01/26/2023 11:49 AM Signed CDM Telephonic Outreach Provider Action/FYI CDM: [...] pounds in a week? No Based on data support specialist, the following disposition is advised: No symptoms or symptoms present, not severe. Routed to: No Action Needed YOUNG Education Provided this Outreach: Yes Diane Alcala RN January 26, 2023 11:24 AM Allergies As of Date: 01/25/2023 Noted Allergy Reaction IODINE 12/19/2004 4 - Hives Date Reviewed: 12/07/2022 Reviewed by: Nuvia Grissom APRN.MATH AND SCIENCE INSTRUCTOR - Fully Assessed Reason for Visit: Community Monitoring Outreach [Other] Primary Visit Diagnosis:Stage 3 chronic kidney disease, unspecified whether stage 3a or 3b CKD ([facility]) [N18.30] Order(s):PT ED NEPHROLOGY [0313490] Order #: [id number]: 1 Prescriptions as of 01/26/2023 - traMADol [...] mL (BD POSIFLUSH) - (more content not included)...[facility]09-28-2023 NoteHNO ID: [id number] Author: Diane Alcala RN Service: ? Author [...] Diane Alcala RN December 28, 2022 7:56 [facility]09-27-2023 NoteHNO ID: [id number] Author: Diane Alcala RN Service: ? Author [...] Diane Alcala RN December 27, 2022 12:59 [facility]09-27-2023 NotePatient Outreach ([facility]) YRIS VILLAGOMEZ ([id number]) 1940 F Date Time Provider Department 12/27/22 DIANE ALCALA [facility] During your visit today, we recorded the following information about you: Diane Alcala RN 12/28/2022 7:57 PM Signed CDM Telephonic Outreach Provider Action/BEAU CDM: CKD, CHF, Hx: Cardiac Amyloidosis, PE, DVT, Post-phlebitic syndrome , Chronic Anticoagulation Left a message to verify symptom status, instructed to call PCP with any changes in condition or needs. Contacted for: Routine Telephonic Outreach Contact made with patient: No, left message. Diane Alcala RN December 27, 2022 12:59 PM Diane Alcala RN 12/28/2022 7:57 PM Signed CDM Telephonic Outreach Provider Action/DIALLOI CDM: CKD, CHF, Hx: Cardiac Amyloidosis, PE, [...] Date Reviewed: 12/07/2022 Reviewed by: Nuvia Grissom APRN.MATH AND SCIENCE INSTRUCTOR - Fully Assessed Reason for Visit: Community [...] 09/30/2018 Groin pain [R10.3 (more content not included)...[facility] 12-13-2022 Evaluation note* Diagnosis Medicare annual wellness visit, subsequent- Primary Routine general medical examination at a health care facility Stage 3a chronic kidney disease (HCC) Essential hypertension Unspecified essential hypertension Mixed hyperlipidemia Acquired hypothyroidism Unspecified hypothyroidism 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 As you get older, the way [...] have certain medical conditions. 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's 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/12/2008 Chest pain Cholecystitis 05/22/2022 Chronic kidney disease (CKD), stage III (moderate) (HCC) 07/27/2016 Coronary artery disease due to calcified coronary lesion 06/22/2021 Diverticulitis Diverticulosis of colon (without mention of hemorrhage) Diverticulosis of colon with hemorrhage DVT (deep venous thrombosis) ([facility]) After knee surgery Dysmetabolic syndrome X Hemorrhage [...] FLX DX W/COLLJ SPEC WHEN PFRMD 06/23/2011 [facility] Colonoscopy COLONOSCOPY FLX DX W/COLLJ SPEC [...] Colon Cancer Mother Coronary Artery Disease Father [place] 45 Cancer Brother multiple myeloma None Daughter [...] suspiciousactivity was identified. 12/07/2022 by Nuvia Grissom APRN.MATH AND SCIENCE INSTRUCTOR Prescription instructions reviewed with patient as applicable. Potential red flag symptoms discussed with the patient. Reviewed appropriate action plan to take if red flag symptoms occur. Patient agreeable to treatment plan. Nuvia Grissom APRN.MATH AND SCIENCE INSTRUCTOR Yris Villagomez is a 81 year old female here for a Medicare wellness visit. Health Risk Assessment In general, health is: Good Concerns with balance:Several days but only with quick movements and not severe. Concerns with teeth or dentures:Not at all Concerns with sexual function:Not at all [place] anxious, stressed, angry, irritable, lonely, isolated, or [...] COVID-19 - Depression screening [facility] Miscellaneous Notes* Telephone Encounter - Debbie [...] Follow up with orthopedics. [facility]-2023 NoteHNO ID: [id number] Author: Diane Alcala RN Service: ? Author [...] Left leg Pt Instructed to call PCP/ MATH AND SCIENCE INSTRUCTOR for changes in symptoms or concerns, ER for Urgent condition changes, CP, Sob or worsening symptoms. Pt verbalized understanding and appreciation for call. Contacted for: Routine Telephonic Outreach Contact made with patient: Yes Patient identified by name and date of . Discussed care with patient Are you experiencing any new or worsening symptoms you need to talk about today? Yes Based on data support specialist, the following disposition is advised: No symptoms or symptoms present, not severe. Routed to: No Action Needed YOUNG Education Provided this Outreach: No Diane Alcala RN December 06, 2022 2:28 [facility]09-06-2023 History of Present illness Narrative* Diane Alcala RN - 12/06/2022 1:41 PM EDT CDM Telephonic Outreach Provider Action/FYI :Routed updates to Dr. Hernandez/ Nuvia Grissom CNP CDM: CKD, CHF, Hx: Cardiac Amyloidosis, PE, DVT, Post-phlebitic syndrome , Chronic Anticoagulation Spk with Pt she noted she had a lesion on her chest, removed by Dermatology 11/27/22 11/28/22 Left leg x-rayed by OrthoDr. Robbins, 12/05/22 Left calf evaluated by Dr. [...] Left leg Pt Instructed to call PCP/ MATH AND SCIENCE INSTRUCTOR for changes in symptoms or concerns, ER for Urgent condition changes, CP, Sob or worsening symptoms. Pt verbalized understanding and appreciation for call. Contacted for: Routine Telephonic Outreach Contact made with patient: Yes Patient identified by name and date of . Discussed care with patient Are you experiencing any new or worsening symptoms you need to talk about today? Yes Based on data support specialist, the following disposition is advised: No symptoms or symptoms present, not severe. Routed to: No Action Needed YOUNG Education Provided this Outreach: No Diane Alcala RN December 06, 2022 2:28 PM * Diane Alcala RN - 12/05/2022 12:48 PM EDT CDM Telephonic Outreach Provider Action/FYI CDM; CHF, CKD Left a message to verify symptom status, instructed to call PCP with any changes in condition or needs. Contacted for: Routine Telephonic Outreach Contact made with patient: No, left message. Diane Alcala RN December 05, 2022 1:06 PM documented in [facility] encounter[facility]09-[facility]-2023 NoteHNO ID: [id number] Author: Diane Alcala RN Service: ? Author [...] Diane Alcala RN December 05, 2022 1:06 [facility]09-05-2023 NotePatient Outreach ([facility]) YRIS VILLAGOMEZ ([id number]) 1940 F Date Time Provider Department 12/05/22 DIANE ALCALA [facility] During your visit today, [...] Left leg Pt Instructed to call PCP/ MATH AND SCIENCE INSTRUCTOR for changes in symptoms or concerns, ER for Urgent condition changes, CP, Sob or worsening symptoms. Pt verbalized understanding and appreciation for call. Contacted for: Routine Telephonic Outreach Contact made with patient: Yes Patient identified by name and date of . Discussed care with patient Are you experiencing any new or worsening symptoms you need to talk about today? Yes Based on data support specialist, the following disposition is advised: No symptoms [...] NaCl (PF) 0.9% 1 (more content not included)...[facility]09-05-2023 NoteHNO ID: [id number] Author: Eugenio Hernandez MD Service: ? Author Type: Physician Type: Progress Notes Filed: 12/05/2022 11:06 AM Note Text: This note was created using NoteWriter. Subjective [...] BMI 22.13 kg/m? [facility] Plan[facility]09-05-2023 NoteHNO ID: [id number] Author: Eugenio Hernandez MD Service: ? Author Type: Physician Type: Progress Notes Filed: 12/05/2022 11:06 AM Note Text: This note was created using [employer]. Subjective Patient presents with: Left leg pain [...] PRN perflutren lipid mi (more content not included)...[facility] 12-05-2022 History of Present illness Narrative* Eugenio Hernandez MD - 12/05/2022 10:10 AM EDT This note was created using [employer]. Subjective Yris Villagomez is a 81 year [...] AM EDT This note was created using [employer]. Subjective Patient presents with: Left leg pain [...] HIGH-DOSE) Eugenio Hernandez MD documented in [facility]08-[facility]-2023 Miscellaneous Notes* Telephone Encounter - Carol Braun RN - 11/24/2022 10:47 AM EDT Patient left message on heart failure nurse line requesting refills on metoprolol succinate and rosuvastatin to go to [facility]. Carol Braun RN November 24, 2022 10:47 AM documented in this encounterDelaware County Hospital08-23-2023 NoteHNO ID: [id number] Author: Nuvia Grissom APRN.MATH AND SCIENCE INSTRUCTOR Service: ? Author Type: Nurse Practitioner Type: [...] it. No history of skin cancer. Sees [facility] for regular scans but would like to see a [facility] dermatolgist if possible. 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 No history of skin cancer. Sees [facility] for regular scans but would like to see a [facility] dermatolgist if possible. 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 Nuvia Grissom APRN.MATH AND SCIENCE INSTRUCTOR documented in this encounterDelaware County Hospital08-22-2023 NotePatient Outreach (INTMMN) YRIS VILLAGOMEZ ([id number]) 1940 F Date Time Provider Department 11/21/22 GAB PISANO INTJOSE DANIEL During your visit today, we recorded the following information about you: Allergies As of Date: 11/21/2022 Noted Allergy Reaction IODINE 12/19/2004 4 - Hives Date Reviewed: 11/08/2022 Reviewed by: Irene Akers Ma - Fully Assessed Visit Diagnosis:Acquired hypothyroidism [E03.9] Order(s):TSH BLD [SQTS] Order #: [id number] FUTURE Prescriptions as of 11/24/2022 - predniSONE [...] deep vein thrombosis ( (more content not included)...[facility]08-22-2023 Miscellaneous Notes* Telephone Encounter - Courtney [...] to be checked. * Telephone Encounter - Velma Carole HANDLEY - 11/20/2022 4:30 PM EDT Pt calls [...] advise. Carole Carreon LPN documented in this encounterDelaware County Hospital08-09-2023 NoteHNO ID: [id number] Author: Shira Seymour MD Service: ? 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/12/2008 [...] FLX DX W/COLLJ SPEC WHEN PFRMD 06/23/2011 [facility] Colonoscopy COLONOSCOPY FLX DX W/COLLJ SPEC WHEN PFRMD 03/05/2014 Colonoscopy COLSC FLX W/REMOVAL LESION BY HOT BX FORCEPS 03/12/2008 EGD TRANSORAL BIOPSY SINGLE/MULTIPLE 03/12/2008 EGD TRANSORAL BIOPSY SINGLE/MULTIPLE 09/30/2012 ESOPHAGOGASTRODUODENOSCOPY TRANSORAL DIAGNOSTIC 06/10/2015 EGD HYSTERECTOMY, REVISE VAGINA; COLPECTOMY 1980 Hysterectomy with bladder repair still ovaries ARTEAGA W/O FACETEC FORAMOT/DSC / VRT SGM CRV 2001 Discectomy and fusion, [...] Colon Cancer Mother Coronary Artery Disease Father [place] 45 Cancer Brother multiple myeloma None Daughter [...] 28 tabletRfl: 0 omega-3/dha/epa/ (more content not included)...[facility] 11-08-2022 History of Present illness Narrative* Shira Seymour MD - 11/08/2022 11:15 AM EDT Images from the original note were not included. 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] Colon Cancer Mother Coronary Artery Disease Father [place] 45 Cancer Brother multiple myeloma None Daughter [...] non-medical management as above. Shira Seymour MD [facility] Section Of Heart Failure and Cardiac Transplant Medicine [facility] Desk [address] [place] [address] documented in this encounterDelaware County Hospital08-09-2023 NoteHNO ID: [id number] Author: Winsome Calvo Service: ? Author Type: ? Type: Progress Notes Filed: 12/22/2022 1:09 PM Note Text: IRB #[id number] CardioTTRansform PI: Dr. Zamora Study Visit: Week 121 I met with the patient for the Study 84 Visit for the CardioTTRansform Study. Reaffirmed that the patient still wishes to participate in the study and continues to consent to the study. Has the patient had any changes in her health since the last study visit? No Has the patient had any outside hospitalizations/ER visits: No Dates and locations: n/a KCCQ completed: Yes [place] QoL completed: Yes EQ-5D-5L completed: Yes Ocular [...] provided: Protocol required tests/procedures Materials dispensed: None legal billing coordinator: Winsome Chavez [facility] Pager #: [phone] County Hospital08-09-2023 History of Present illness Narrative* Kathy Keane Winsome - 11/08/2022 8:49 AM EDT IRB #[id number] CardioTTRansform PI: Dr. Zamora Study Visit: Week 121 I met with the patient for the Study 84 Visit for the CardioTTRansform Study. Reaffirmed that the patient still wishes to participate in the study and continues to consent to the study. Has the patient had any changes in her health since the last study visit? No Has the patient had any outside hospitalizations/ER visits: No Dates and locations: n/a KCCQ completed: Yes [place] QoL completed: Yes EQ-5D-5L completed: Yes Ocular [...] provided: Protocol required tests/procedures Materials dispensed: None legal billing coordinator: Winsome Chavez [facility] Pager #: [phone] documented in this encounterDelaware County Hospital08-02-2023 NoteHNO ID: [id number] Author: Diane Alcala RN Service: ? Author [...] Diane Alcala RN November 01, 2022 11:44 [facility]08-02-2023 History of Present illness Narrative* Diane Alcala RN - 11/01/2022 11:42 AM EDT CDM Telephonic Outreach Provider Action/DIALLOI JENNIFERM; CHF, CKD Left a message to verify symptom status, instructed to call PCP with any changes in condition or needs. Contacted for: Routine Telephonic Outreach Contact made with patient: No, left message. Diane Alcala RN November 01, 2022 11:44 AM * Diane Alcala RN - 10/30/2022 11:26 AM EDT CDM Telephonic Outreach Provider Reyna/[facility]; CHF, CKD Called Pt, unable to leave a message to verify symptom status and needs. Contacted for: Routine Telephonic Outreach Contact made with patient: No, unable to leave message. Will reattempt call Diane Alcala RN October 30, 2022 11:26 AM documented in this encounterDelaware County Hospital08-01-2023 Miscellaneous Notes* Telephone Encounter - Corinne [...] and advise. Alison Cordero documented in this encounterDelaware County Hospital07-31-2023 NotePatient Outreach (AMBCMG) YRIS VILLAGOMEZ ([id number]) 1940 F Date Time Provider Department 10/30/22 DIANE ALCALA AMBCMG During your visit today, we recorded the following information about you: Diane Alcala RN 11/01/2022 11:47 AM Signed CDM Telephonic Outreach Provider Action/FYI CDM; CHF, CKD Called Pt, unable to leave a message to verify symptom status and needs. Contacted for: Routine Telephonic Outreach Contact made with patient: No, unable to leave message. Will reattempt call Diane Alcala RN October 30, 2022 11:26 AM Diane Alcala RN 11/01/2022 11:47 AM Signed CDM Telephonic Outreach Provider Action/FYI CDM; [...] ischemic heart disease [Z82.4*10/14/2014 (more content not included)...[facility]07-31-2023 NoteHNO ID: [id number] Author: Diane Alcala RN Service: ? Author Type: Registered Nurse Type: Progress Notes Filed: 11/01/2022 11:47 AM Note Text: CDM Telephonic Outreach Provider Action/FYI CDM; CHF, CKD Called Pt, unable to leave a message to verify symptom status and needs. Contacted for: Routine Telephonic Outreach Contact made with patient: No, unable to leave message. Will reattempt call Diane Alcala RN October 30, 2022 11:26 [facility]07-20-2023 Miscellaneous Notes* Telephone Encounter - Frances Chavez [...] updated. Angelina Fisher LPN documented in this encounterDelaware County Hospital07-13-2023 NoteHNO ID: [id number] Author: Eugenio Hernandez MD Service: ? Author Type: Physician Type: Progress Notes Filed: 10/12/2022 3:55 PM Note Text: This note was created using [employer]. Subjective Yris Villagomez is a 81 year [...] tenderness. Normal strengt (more content not included)... [facility]07-13-2023 History of Present illness Narrative* Eugenio Hernandez MD - 10/12/2022 3:30 PM EDT This note was created using Sapling Learning[employer]. Subjective Yris Villagomez is a 81 year [...] or off label use: off label. 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 - Call for dose adjustment if effective. 2. Neuropathy - ICD9: 355.9, ICD10: G62.9 - GABAPENTIN 300 MG CAPSULE Eugenio Hernandez MD documented in this encounterDelaware County Hospital07-13-2023 Miscellaneous Notes* Telephone Encounter - Courtney Juarez RN - 10/12/2022 8:44 AM EDT Patient [...] heart condition- amylodiosis, and low fibrinogen levels- bench boring machine operator told her not to use creams without [...] Post menopausal. Protocols used: Hand and Wrist [id number] documented in this encounterDelaware County Hospital07-05-2023 Miscellaneous Notes* Telephone Encounter - Angelina [...] and advise. Cristy Rivera documented in this encounterDelaware County Hospital06-27-2023 NoteHNO ID: [id number] Author: Diane Alcala RN Service: ? Author [...] Diane Alcala RN September 26, 2022 4:50 [facility]06-27-2023 History of Present illness Narrative* Diane Alcala RN - 09/26/2022 4:49 PM EDT CDM Telephonic Outreach Provider Action/FYI CDM: JENNIFERM CHF, CKD Called home number, unable to leave a message to verify symptom status and needs. Line rang busy Contacted for: Routine Telephonic Outreach Contact made with patient: No, unable to leave message. Will reattempt call Diane Alcala RN September 26, 2022 4:50 PM * Diane Alcala RN - 09/25/2022 3:52 PM EDT CDCourtney Telephonic Outreach Provider Action/FYI CDM: CDM CHF, CKD Called home number, unable to leave a message to verify symptom status and needs. Line was busy Contacted for: Routine Telephonic Outreach Contact made with patient: No, unable to leave message. Will reattempt call Diane Alcala RN September 25, 2022 3:53 PM documented in this encounterDelaware County Hospital06-26-2023 NoteHNO ID: [id number] Author: Diane Alcala RN Service: ? Author [...] Diane Alcala RN September 25, 2022 3:53 [facility]06-26-2023 NotePatient Outreach (AMBCMG) YRIS VILLAGOMEZ ([id number]) 1940 F Date Time Provider Department 09/25/22 DIANE ALCALA AMBMARCY During your visit today, [...] Mixed incontinence [N39.46] 10/28/19 (more content not included)...[facility]05-31-2023 Miscellaneous Notes* Telephone Encounter - Coco Arredondo - 08/30/2022 11:06 AM EDT August 30, 2022 Name: Yris Villagomez Patient Contact Number: [phone] (home) [phone] (cell) Date of last office visit: 08/17/2022 Reason For Call: Other Issue: Patient states Dr. Zamora wants her to have a Stress Echo - the ordersneed to be added to her chart. Physician: Evi Zamora MD Patient was informed that non-urgent calls may be returned within the next three business days. Yes Coco Wills documented in this encounterDelaware County Hospital05-30-2023 NoteHNO ID: [id number] Author: Diane Alcala, KATHIE Service: ? Author Type: Registered Nurse Type: [...] pounds in a week? No Based on data support specialist, the following disposition is advised: No symptoms or symptoms present, not severe. Routed to: No Action Needed YOUNG Education Provided this Outreach: No Diane Alcala RN August 29, 2022 4:37 [facility]05-30-2023 NotePatient Outreach (AMBCMG) YRIS VILLAGOMEZ ([id number]) 1940 F Date Time Provider Department 08/29/22 DIANE ALCALA During your visit today, we recorded the following information about you: Diane Alcala RN 08/29/2022 4:38 PM Signed CDM Telephonic Outreach Provider Action/I CDM: CDM CHF, CKD Spk with Pt [...] pounds in a week? No Based on data support specialist, the following disposition is advised: No symptoms or symptoms present, not severe. Routed to: No Action Needed YOUNG Education Provided this Outreach: No Diane Alcala RN August 29, 2022 4:37 PM Allergies As [...] DVT (deep venous thr (more content not included)...[facility] 08-22-2022 NoteHNO ID: [id number] Author: Diane Alcala RN Service: ? Author [...] Diane Alcala RN August 22, 2022 10:55 [facility]05-19-2023 NoteHNO ID: [id number] Author: Diane Alcala RN Service: ? Author [...] Diane Alcala RN August 18, 2022 1:17 [facility]05-19-2023 NotePatient Outreach (AMBCMG) YRIS VILLAGOMEZ ([id number]) 1940 F Date Time Provider Department 08/18/22 DIANE ALCALA During your visit today, we recorded the following information about you: Diane Alcala RN 08/22/2022 10:55 AM Signed CDM Telephonic Outreach Provider Action/BEAU RODRIGUEZM CHF, CKD Called Pt left a message to verify symptom status and needs. Instructed to call PCP with any symptom or condition changes. Contacted for: Routine Telephonic Outreach Contact made with patient: No, left message. Diane Alcala RN August 18, 2022 1:17 PM Diane Alcala RN 08/22/2022 10:55 AM Signed CDM Telephonic Outreach Provider Action/BEAU RODRIGUEZM CHF, CKD Called Pt left a message [...] hypothyroidism [E03.9] 02/19/2015 Epigastric (more content not included)...[facility]05-18-2023 NoteHNO ID: [id number] Author: Jalyn Boyce, Research Coordinator Service: ? Author Type: Research Type: Progress Notes Filed: 08/18/2022 9:09 AM Note Text: IRB #[id number] CardioTTRansform PI: Dr. Zamora Study Visit: Week 109 [...] disease. KCCQ completed: Not Required per protocol [place] QoL completed: Not Required per protocol EQ-5D-5L [...] provided: Protocol Materials dispensed: Coordinator contact card legal billing coordinator: Jalyn Boyce, Research Coordinator Pager #: [phone] County Hospital05-18-2023 NoteHNO ID: [id number] Author: Evi Zamora MD Service: ? Author Type: Physician Type: Progress Notes Filed: 09/16/2022 1:46 PM Note Text: Heart and Vascular [facility] SECTION OF HEART FAILURE and CARDIAC TRANSPLANT MEDICINE OUTPATIENT VISIT DATE August 17, 2022 OUTPATIENT VISIT TYPE Established Patient Last seen by Dr. 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 Colonoscopy COLONOSCOPY FLX DX W/COLLJ SPEC [...] Colon Cancer Mother Coronary Artery Disease Father IA 45 Cancer Brother multiple myeloma None Daughter [...] as needed (muscle spasms).Disp: (more content not included)...[facility]05-08-2023 NoteHNO ID: [id number] Author: Omer Narvaez, DO Service: ? Author [...] and was discharged. Was seen by a bench boring machine operator at a tertiary center. Testing suggested that [...] edema. SKIN: No jaundice or rash. 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 No focal motor [...] of cardiac amyloidosis, transthyret (more content not included)...[facility]05-08-2023 History of Present illness Narrative* Omer Narvaez DO - 08/07/2022 2:30 PM EDT Diagnoses: 1) [...] and was discharged. Was seen by a bench boring machine operator at a tertiary center. Testing suggested that [...] edema. SKIN: No jaundice or rash. 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 No focal motor [...] which included preparing to see the patient, [id number] patient care, completing clinical documentation, obtaining and/or reviewing separately obtained history, performing a medically appropriate examination, counseling and educating the pat ient/family/caregiver, and communicating results to the patient/family/caregiver. Omer Narvaez DO documented in this encounterDelaware County Hospital05-01-2023 NoteHNO ID: [id number] Author: Diane Alcala RN Service: ? Author [...] pounds in a week? No Based on data support specialist, the following disposition is advised: Routed to: No Action Needed YOUNG Education Provided this Outreach: No Diane Alcala RN July 31, 2022 4:46 [facility]05-01-2023 History of Present illness Narrative* [...] pounds in a week? No Based on data support specialist, the following disposition is advised: Routed to: [...] 28, 2022 11:17 AM documented in this encounterDelaware County Hospital04-28-2023 NotePatient Outreach (AMBCMG) DAHLIAYRIS ([id number]) 1940 F Date Time Provider Department 07/28/22 [...] pounds in a week? No Based on data support specialist, the following disposition is advised: Routed to: [...] 11/19/2019 DVT (deep ve (more content not included)...[facility]04-28-2023 NoteHNO ID: [id number] Author: Diane Alcala RN Service: ? Author [...] Diane Alcala RN July 28, 2022 11:17 [facility]04-05-2023 NoteHNO ID: [id number] Author: Diane Alcala RN Service: ? Author [...] like to speak with a social work horses or mules teamster to help give you support for any [...] you up for automated weekly questionnaires through [employer]. This is an easy way for us [...] Diane Alcala RN July 05, 2022 2:31 [facility]04-05-2023 History of Present illness Narrative* [...] like to speak with a social work horses or mules teamster to help give you support for any [...] you up for automated weekly questionnaires through [employer]. This is an easy way for us [...] 05, 2022 2:31 PM documented in this encounterDelaware County Hospital04-05-2023 NotePatient Outreach (AMBCMG) DAHLIAYRIS Genia ([id number]) 1940 F Date Time Provider Department 07/05/22 [...] like to speak with a social work horses or mules teamster to help give you support for any [...] you up for automated weekly questionnaires through [employer]. This is an easy way for us [...] aspirin, enteric coated (ASPIRIN, (more content not included)...[facility]03-27-2023 NoteHNO ID: [id number] Author: JOSE Kirby Service: ? Author Type: Physician Wood Heel Back Liner Type: Progress Notes Filed: 06/26/2022 5:54 PM Note Text: This note was created using [employer]. 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 [facility]03-27-2023 History of Present illness Narrative* JOSE Kirby - 06/26/2022 5:50 PM EDT Images from the original note were not included. This note was created using [employer]. Subjective Yris Villagomez is a 81 year [...] without mention of hemorrhage Arrhythmia pt states safety grooving machine operator states PVC's 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/12/2008 Chest pain Chronic kidney disease (CKD), stage III (moderate) ([facility]) 07/27/2016 Coronary artery disease due to calcified coronary lesion 06/22/2021 Diverticulitis Diverticulosis of colon (without mention of hemorrhage) Diverticulosis of colon with hemorrhage DVT (deep venous thrombosis) ([facility]) After knee surgery Dysmetabolic syndrome X Hemorrhage [...] FLX DX W/COLLJ SPEC WHEN PFRMD 06/23/2011 [facility] Colonoscopy COLONOSCOPY FLX DX W/COLLJ SPEC [...] Colon Cancer Mother Coronary Artery Disease Father IA 45 Cancer Brother multiple myeloma None Daughter [...] kg (138 lb 6.4 oz) SpO2 98% BMI23.03 kg/m Physical Exam Vitals and nursing note [...] ER evaluation. JOSE Kirby documented in this encounterDelaware County Hospital03-22-2023 NotePatient Outreach (AMBCMG) YRIS VILLAGOMEZ ([id number]) 1940 F Date Time Provider Department 06/21/22 DIANE LACALA AMBMARCY During your visit today, we recorded [...] stress reaction [F43.0] 09/16/2020 (more content not included)...[facility]03-22-2023 NoteHNO ID: [id number] Author: Diane Alcala RN Service: ? Author Type: Registered Nurse Type: Progress Notes Filed: 07/05/2022 2:48 PM Note Text: [facility] Provider Action/FYI: 06/13/22 [facility] Cardiac Cath, Hx: Cardiac Amyloidosis Call deferred Diane Alcala RN June 21, 2022 10:12 [facility]03-22-2023 History of Present illness Narrative* Diane Alcala RN - 06/21/2022 10:12 AM EDT [facility] Provider Action/FYI: 06/13/22 [facility] Dx Cardiac Amyloidosis Call deferred Diane Alcala RN June 21, 2022 10:12 AM documented in this encounterDelaware County Hospital03-13-2023 Miscellaneous Notes* Telephone Encounter - Rizwana [...] time/NPO Status/Medications/Travel Instructions/Restrictions- patient aware to have route driver salesperson upon discharge Patient/Family Response Evaluation: Verbalizes understanding Follow Up Plan and Medication: As directed by physician Instruction/Supplemental Material Given: Cardiac catheterization instructions, procedure information, hospital information, hotel information. Instructed By Rizwana Black RN, RN. In Department of CARDIOLOGY. documented in this encounterDelaware County Hospital03-13-2023 Miscellaneous Notes* Telephone Encounter - Lorena Ferreira - 06/12/2022 12:36 PM EDT Called [facility] to verify orders and had to leave a message. I am going to follow up today and makesure pt is aware of instructions for Cath tomorrow. * Telephone Encounter - Vanna Alcaraz Adm - 06/12/2022 8:27 AM EDT Call received from [facility], [facility], pt has allergie to Iodine and no Dye Prep has been ordered. Pt is scheduled for procedure w/ Dr. Reid tomorrow 06/13. Can you please drop orders needed and informthe [facility] when done Thank you Vanna documented in this encounterDelaware County Hospital03-10-2023 Miscellaneous Notes* Telephone Encounter - Lisa Garcia LPN - 06/09/2022 9:50 AM EST Patient notified. Lisa Garcia LPN * Telephone Encounter - Omer Narvaez DO - 06/09/2022 9:39 AM EST Yes. Omer Narvaez DO * Telephone Encounter - Etta Malik Pss - 06/09/2022 8:53 AM EST Patient states she had an appt with Dr. Jean-Baptiste (saint [facility]) yesterday and he wants to prescribe a vitamin - Macuhalth. Patient asking if okay to take. documented in this encounterDelaware [facility] Hospital03-03-2023 NoteHNO ID: [id number] Author: Gab Pisano MD Service: ? Author [...] not break anything Was on way to [employer], trying to open her umbrella and it was right in front on her face and she went down really fast. Rolled on the steps but did not have any major damage. It was very embarrassing that this happened to her. 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 PVC's 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/12/2008 Chest pain Chronic kidney disease (CKD), stage III (moderate) (HCC) 07/27/2016 Coronary artery disease due to calcified coronary lesion 06/22/2021 Diverticulitis Diverticulosis of colon (without mention of hemorrhage) Diverticulosis of colon with hemorrhage DVT (deep venous thrombosis) ([facility]) After knee surgery Dysmetabolic syndrome X Hemorrhage [...] FLX DX W/COLLJ SPEC WHEN PFRMD 06/23/2011 [facility] Colonoscopy COLONOSCOPY FLX DX W/COLLJ SPEC [...] Colon Cancer Mother Coronary Artery Disease Father IA 45 Cancer Brother multiple myeloma None Daughter [...] mg tablet tafamidis (VYNDAMAX (more content not included)...[facility] 06-02-[facility] History of Present illness Narrative* [...] not break anything Was on way to [employer], trying to open her umbrella and it was right in front on her face and she went down really fast. Rolled on the steps but did not have any major damage. It was very embarrassing that this happened to her. 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 PVC's 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/12/2008 Chest pain Chronic kidney disease (CKD), stage III (moderate) (HCC) 07/27/2016 Coronary artery disease due to calcified coronary lesion 06/22/2021 Diverticulitis Diverticulosis of colon (without mention of hemorrhage) Diverticulosis of colon with hemorrhage DVT (deep venous thrombosis) ([facility]) After knee surgery Dysmetabolic syndrome X Hemorrhage [...] FLX DX W/COLLJ SPEC WHEN PFRMD 06/23/2011 [facility] Colonoscopy COLONOSCOPY FLX DX W/COLLJ SPEC [...] Colon Cancer Mother Coronary Artery Disease Father IA 45 Cancer Brother multiple myeloma None Daughter [...] ICD9: 286.3, ICD10: D68.2 Cont the lovenox, aGb Pisano MD documented in this encounterDelaware County Hospital03-03-2023 Evaluation note* Diagnosis Chronic deep vein [...] site Research subject documented in this encounter [facility]02-22-[facility]23 Miscellaneous Notes* Telephone Encounter - Lianne [...] DO Sent: 05/23/2022 7:40 PM EST To: Genia Ruby MD Hi Ayan, Thank you for your note. I have [...] MD Sent: 05/22/2022 4:05 PM EST To: Omre Narvaez, DO Tello, Just FYI, I will repeat a cardiac catheterization on her, and she may need an LAD stent and DAPT. Do you have any preference regarding either clopidogrel or ticagrelor + aspirin? Also, should she continue Lovenox afterwards? Thanks, Ayan Ruby MD, [facility] Staff, Section of Heart Failure and Transplantation Medicine Soil Expert, Metabolic Exercise Testing Center Nate Meredith and Tonya Alfred Oceano for Heart Failure Treatment and Recovery Sam Storm Department of Cardiovascular Medicine Renae and [facility] Heart, Vascular and Thoracic [place] [address] [place] Tel: [phone] Fax: [phone] Appt: [phone] documented in this encounterDelaware County Hospital02-20-2023 NoteHNO ID: [id number] Author: Winsome Ch[facility] Service: ? Author Type: ? Type: Progress Notes Filed: 05/22/2022 4:54 PM Note Text: IRB #[id number] CardioTTRansform PI: Dr. Ruby Study Visit: Week 97 I met with the patient for the Study Visit for the CardioTTRansform Study. Reaffirmed that [...] 03/29/22. Discharged on 03/31/22 KCCQ completed: Yes [place] QoL completed: Not Required per protocol EQ-5D-5L [...] provided: Protocol required tests/procedures Materials dispensed: None legal billing coordinator: Winsome Chavez [facility] Pager #: [phone] County Hospital02-20-2023 NoteHNO ID: [id number] Author: Genia Ruby MD Service: ? Author Type: Physician Type: Progress Notes Filed: 05/22/2022 4:13 PM Note Text: Heart and Vascular [place] [facility] For Heart Failure SECTION OF HEART FAILURE and CARDIAC TRANSPLANT MEDICINE OUTPATIENT VISIT DATE May 22, 2022 OUTPATIENT VISIT TYPE Established Patient PRIMARY CARE PHYSICIAN: Gab Pisano [address] [place] [address] CHIEF COMPLAINT: ATTR Cardiac Amyloidosis HISTORY OF PRESENT ILLNESS Yris Villagomez is a 81 year old White female who [facility] and management of Heart Failure. The patient has been referred by Genia Ruby MD. 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), Chest pain, Chronic kidney disease (CKD), stage III (moderate) ([facility]) (07/27/2016), Coronary artery disease due to calcified coronary lesion (06/22/2021), Diverticulitis, Diverticulosis of colon (without mention of hemorrhage), Diverticulosis of colon with hemorrhage, DVT (deep venous thrombosis) ([facility]), Dysmetabolic syndrome X, Hemorrhage of gastrointestinal tract, [...] Blood dyscrasia, Chronic obstructive pulmonary disease (COPD) ([facility]), Diabetes ([facility]), Glaucoma, Heart attack ([facility]), Parkinson disease ([facility]), Seizures ([facility]), Snoring, Stroke ([facility]), or Syncope. 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/12/2008 [...] sites of abdomina (more content not included)... [facility] History of Present illness Narrative* Winsome Ch[facility] - 05/22/2022 4:46 PM EST IRB #[id number] [...] 03/29/22. Discharged on 03/31/22 KCCQ completed: Yes [place] QoL completed: Not Required per protocol EQ-5D-5L [...] provided: Protocol required tests/procedures Materials dispensed: None legal billing coordinator: Winsome Chavez [facility] Pager #: [phone] documented in this encounterDelaware County Hospital02-20-2023 Instructions* Patient Instructions* Genia Ruby MD [...] echocardiogram and fasting labs documented in this encounterDelaware County Hospital02-20-2023 History of Present illness Narrative* Genia Ruby MD - 05/22/2022 3:44 PM EST Images from the original note were not included. Heart and Vascular [place] [facility] For Heart Failure SECTION OF HEART FAILURE and CARDIAC TRANSPLANT MEDICINE OUTPATIENT VISIT DATE May 22, 2022 OUTPATIENT VISIT TYPE Established Patient PRIMARY CARE PHYSICIAN: Gab Pisano [address] [place] [address] CHIEF COMPLAINT: ATTR Cardiac Amyloidosis HISTORY OF PRESENT ILLNESS Yris Villagomez is a 81 year old White female who [facility] for evaluation and management of Heart Failure. The patient has been referred by Genia Ruby MD. 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), Chest pain, Chronic kidney disease (CKD), stage III (moderate) ([facility]) (07/27/2016), Coronary artery disease due to calcified coronary lesion (06/22/2021), Diverticulitis, Diverticulosis of colon (without mention of hemorrhage), Diverticulosis of colon with hemorrhage, DVT (deep venous thrombosis) ([facility]), Dysmetabolic syndromeX, Hemorrhage of gastrointestinal tract, unspecified, [...] Blood dyscrasia, Chronic obstructive pulmonary disease (COPD) ([facility]), Diabetes ([facility]), Glaucoma, Heart attack ([facility]), Parkinson disease (HCC), Seizures ([facility]), Snoring, Stroke ([facility]), or Syncope. 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/12/2008 [...] FLX DX W/COLLJ SPEC WHEN PFRMD 06/23/2011 [facility] Colonoscopy COLONOSCOPY FLX DX W/COLLJ SPEC WHEN PFRMD 03/05/2014 Colonoscopy COLSC FLX W/REMOVAL LESION BY HOT BX FORCEPS 03/12/2008 EGD TRANSORAL BIOPSY SINGLE/MULTIPLE 03/12/2008 EGD TRANSORAL BIOPSY SINGLE/MULTIPLE 09/30/2012 ESOPHAGOGASTRODUODENOSCOPY TRANSORAL DIAGNOSTIC 06/10/2015 EGD HYSTERECTOMY, REVISE VAGINA; COLPECTOMY 1980 Hysterectomy with bladder repair still ovaries ARTEAGA W/O FACETEC FORAMOT/DSC / VRT SGM CRV 2001 Discectomy and fusion, [...] Colon Cancer Mother Coronary Artery Disease Father IA 45 Cancer Brother multiple myeloma None Daughter [...] FOR LVH, MAY BE NORMAL VARIANT ( [place] product ) INFERIOR MYOCARDIAL INFARCTION , AGE [...] CRITERIA FOR LVH, MAY BE NORMAL VARIANT ([place] product ) INFERIOR MYOCARDIAL INFARCTION , AGE UNDETERMINED ANTEROSEPTAL MYOCARDIAL INFARCTION , AGE UNDETERMINED ABNORMAL ECG IMPRESSION Yris Villagomez is a 81 year old White female who [facility] for evaluation and management of Heart Failure. The patient has been referred by Genia Ruby MD. 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), Chest pain, Chronic kidney disease (CKD), stage III (moderate) ([facility]) (07/27/2016), Coronary artery disease due to calcified [...] flx dx w/collj spec when pfrmd (06/23/2011 [facility]); egd transoral biopsy single/multiple (09/30/2012); colonoscopy [...] Order Specific Question: Provider Answer: Genia RUBY [[id number]] Order Specific Question: CVM Section: Answer: Heart Failure Order Specific Question: Testing Options: Answer: No Testing Order Specific Question: Return: Answer: 3 months CARDIAC LAWN MOWER ORDER Order Specific Question: Approving Staff Diamond Saw Operator or CT Surgeon Answer: Genia RUBY [[id number]] Order Specific Question: Performing Physician Answer: FIRST AVAILABLE [[id number]] Order Specific Question: Date of Procedure Answer: [...] of known heart failure to guide therapy [facility] STAFF PHYSICIAN NOTE OF PERSONAL INVOLVEMENT IN CARE I have personally performed a [id number] diagnostic evaluation on this patient, including anamnesis [...] and Transplantation Medicine Nate Meredith and [facility] Recovery Sam Storm Department of Cardiovascular Medicine [facility] Heart, Vascular and Thoracic [place] [address] [place] Tel: [phone] Fax: [phone] Appt: [phone] documented in this encounterDelaware County Hospital02-20-2023 History of Past illness Narrative* Problem [...] of this encounter (statuses as of 10/12/2022) [facility] illness Narrative* Problem [...] of this encounter (statuses as of 10/13/2022) [facility] Past illness Narrative* Problem [...] of this encounter (statuses as of 10/19/2022) [facility] illness Narrative* Problem [...] of this encounter (statuses as of 10/31/2022) [facility] Narrative* Problem [...] of this encounter (statuses as of 11/01/2022) [facility] Narrative* Problem [...] of this encounter (statuses as of 11/14/2022) [facility] illness Narrative* Problem [...] of this encounter (statuses as of 11/17/2022) [facility] illness Narrative* Problem [...] of this encounter (statuses as of 11/21/2022) [facility] of [facility] illness Narrative* Problem Noted Date Diagnosed Date Resolved Date Cholecystitis 05/22/2022 10/12/2022 Cholelithiasis without cholangitis 03/29/2022 10/12/2022 Symptomatic cholelithiasis 03/29/2022 0 10/12/2022 Acute stress reaction 09/16/20203 Recent bereavement 09/16/2020 3 Chest pain 11/10/2019 [...] of this encounter (statuses as of 11/24/2022) [facility] Narrative* Problem [...] of this encounter (statuses as of 11/24/2022) [facility] illness Narrative* Problem [...] of this encounter (statuses as of 11/27/2022) [facility] illness Narrative* Problem [...] of this encounter (statuses as of 11/29/2022) [facility] Narrative* Problem [...] of this encounter (statuses as of 12/05/2022) [facility] Narrative* Problem [...] of this encounter (statuses as of 12/07/2022) [facility] Narrative* Problem [...] of this encounter (statuses as of 12/08/2022) [facility] illness Narrative* Problem [...] of this encounter (statuses as of 12/13/2022) [facility] Narrative* Problem [...] of this encounter (statuses as of 12/23/2022) [facility] Narrative* Problem [...] of this encounter (statuses as of 01/26/2023) [facility] Narrative* Problem [...] of this encounter (statuses as of 01/30/2023) [facility] Narrative* Problem [...] of this encounter (statuses as of 02/05/2023) [facility] Narrative* Problem [...] of this encounter (statuses as of 02/06/2023) [facility] Narrative* Problem [...] of this encounter (statuses as of 02/11/2023) [facility] Narrative* Problem [...] of this encounter (statuses as of 02/24/2023) [facility] Narrative* Problem [...] of this encounter (statuses as of 03/10/2023) [facility] Narrative* Problem [...] of this encounter (statuses as of 03/16/2023) [facility] NotePatient Outreach ([facility]) YRIS VILLAGOMEZ ([id number]) 1940 F Date Time Provider Department 05/15/22 [...] like to speak with a social work horses or mules teamster to help give you support for any [...] you up for automated weekly questionnaires through [employer]. This is an easy way for us [...] tablet by mouth once daily. - INV [id number] MG/ML OR PLACEBO INJECTION (IRB 20-) Inject 0.3 mL subcutaneously every 4 weeks. For Investigational Drug Use Only. PI: Evi Zamora MD. Inject 0.3 mL subcutaneously every 4 weeks. EXP: 2 hours at room temp. Protect from light. - vitamin A (AQUASOL A) 10,000 unit capsule Take 10,000 Units by mouth Every 3 Days. - aspiri (more content not included)...[facility] Note Patient Outreach ([facility]) YRIS VILLAGOMEZ ([id number]) 1940 F Date Time Provider Department 05/15/22 DIANE ALCALA [facility] During your visit today, we recorded the [...] Cardiac amyloidosis (HCC) [E85.4, (more content not included)...[facility]02-[facility]23 NoteHNO ID: [id number] Author: Diane Alcala RN Service: ? Author [...] Diane Alcala RN May 15, 2022 10:04 [facility]02-13-2023 NoteHNO ID: [id number] Author: Diane Alcala RN Service: ? Author [...] like to speak with a social work horses or mules teamster to help give you support for any [...] you up for automated weekly questionnaires through [employer]. This is an easy way for us [...] Diane Alcala RN May 15, 2022 9:49 [facility]02-13-2023 History of Present illness Narrative* Diane [...] 15, 2022 10:04 AM documented in this encounterDelaware County Hospital02-13-2023 History of Present illness Narrative* Diane [...] like to speak with a social work horses or mules teamster to help give you support for any [...] you up for automated weekly questionnaires through [employer]. This is an easy way for us [...] 15, 2022 9:49 AM documented in this encounterDelaware County Hospital01-17-2023 History of Present illness Narrative* Aneesh [...] MD 04/18/2022 7:38 AM documented in this encounterDelaware County Hospital01-11-2023 History of Present illness Narrative* Diane Alcala RN - 04/12/2022 2:06 PM EST INSIGHT CDM TELEPHONIC OUTREACH Provider Action/FYI: Routed to Nuvia Jaciel FRANCOIS, Pt wanted to express her appreciation for [...] like to speak with a social work horses or mules teamster to help give you support for any [...] you up for automated weekly questionnaires through [employer]. This is an easy way for us [...] 12, 2022 2:06 PM documented in this encounterDelaware County Hospital01-10-2023 History of Present illness Narrative* Mame Suraj HANDLEY - 04/11/2022 9:23 AM EST Verified name [...] own. 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 [...] FLX DX W/COLLJ SPEC WHEN PFRMD 06/23/2011 [facility] Colonoscopy COLONOSCOPY FLX DX W/COLLJ SPEC WHEN PFRMD 03/05/14 Colonoscopy COLSC FLX W/REMOVAL LESION BY HOT BX FORCEPS 03/12/08 EGD TRANSORAL BIOPSY SINGLE/MULTIPLE 03/12/08 EGD TRANSORAL BIOPSY SINGLE/MULTIPLE 09-30-12 ESOPHAGOGASTRODUODENOSCOPY TRANSORAL DIAGNOSTIC 06/10/2015 EGD HYSTERECTOMY, REVISE VAGINA; COLPECTOMY 1980 Hysterectomy with bladder repair still ovaries ARTEAGA W/O FACETEC FORAMOT/DSC / VRT SGM CRV 2001 Discectomy and fusion, [...] Colon Cancer Mother Coronary Artery Disease Father IA 45 Cancer Brother multiple myeloma None Daughter [...] 2022 TIME: 10:51 AM documented in this encounterDelaware County Hospital01-05-2023 Miscellaneous Notes* Telephone Encounter - Bhumika Barry [facility] - 04/06/2022 9:02 AM EST Patient had surgery on 03/29/22 has been in pain since discharge. Level 10. Very black and blue at incision site. Please call her to discuss. documented in this encounterDelaware County Hospital01-03-2023 History of Present illness Narrative* Bridget Motta RN - 04/04/2022 12:43 PM EST TRANSITIONAL CARE MANAGEMENT (TCM) COMMUNITY MONITORING PROGRAM Provider Action/FYI: TCM INITIAL OUTREACH ELIGIBLE FOR TCM THROUGH 04/1404-05-2021 - [facility] Cholelithiasis without cholangitis You were known to have gallstones came to the hospital underwent laparoscopic cholecystectomy on 03/29/2022 OPERATIONS DURING HOSPITALIZATION: Laparoscopic cholecystectomy with intra- operative cholangiogram INCISION SITE - NANCY NO REDNESS, SWELLING OR DRAINAGE [place] - DARK - ADVISED TO INCREASE WATER INTAKE PAIN - 05/12 SOB - NO FEVER/CHILLS - NO NAUSEA/VOMITING - NO SUMMARY: Pt discharged from [facility] on 03-31-2022. Admitted for: To undergo planned elective surgery Contact made with patient: Yes Hi my name is Bridget Motta RN and I am calling from the [facility] on behalf of your PCP, Gab [...] like to speak with a social work horses or mules teamster to help give you support for any [...] I will send your request to a language interpreter who will contact and assist you with [...] TCM Home Visit Referral Source of Stratification: [facility] Admission Status: Discharged Readmission Risk Score: 9 LAKSHMI Score: 6 Patient meets program referral criteria: No Patient does not qualify for High Risk TCM Home Visit program due to: Discharged home, does not meet program criteria Bridget Motta RN April 04, 2022 1:05 PM documented in this encounterDelaware County Hospital12-30-2022 Miscellaneous Notes* Telephone Encounter - Edita Bermudez RN - 03/31/2022 4:58 PM EST Patient updated and there are no appts available next week with Dr. Pisano or Nuvia Grissom or any INT MED providers next week and pt needs urinary catheter removed by weds next week. Appt made with Inna Tate [...] assist with scheduling. Thank you Nuvia Grissom APRN.CNP * Telephone Encounter - Edita Bermudez RN - 03/31/2022 2:54 PM EST Patient calling and reports she had gallbladder surgery on 03/29/[address] Kaplan at [facility]. She states she currently has a urinary catheter in and Dr. Kaplan's office advised pt to speak with PCP [...] advise patient. Thank you. documented in this encounterDelaware County Hospital12-28-2022 History of Past illness Narrative* Problem [...] of this encounter (statuses as of 02/04/2023) [facility] of Past illness Narrative* Problem [...] of this encounter (statuses as of 02/04/2023) [facility] Miscellaneous Notes* Telephone Encounter - Amrita Scott RN - 03/29/2022 12:16 PM EST Provider portion of [employer] forms completed and faxed. No PA needed for Vyndamax medication per cover my meds. Amrita Scott RN March 29, 2022 12:16 PM documented in this encounterDelaware County Hospital12-20-2022 Miscellaneous Notes* Telephone Encounter - Alison [...] 21, 2022 8:36 AM documented in this encounterDelaware County Hospital12-19-2022 Miscellaneous Notes* Telephone Encounter - Helga [...] back pain Protocols used: Abdominal Pain - Leul[place]-AKHID-HO documented in this encounterDelaware County Hospital12-13-2022 History of Present illness Narrative* Diane Alcala RN - 03/14/2022 6:14 PM EST INSIGHT CDM TELEPHONIC OUTREACH Provider Action/FYI: CDM: CHF/ CKD Spk with Pt she reports mild foot edema after having food with more sodium content. Denies Sob, wheezing or coughing. Wt 134 lbs, Pt has a [facility] Nurse visit tomorrow. Pt noted is scheduled [...] like to speak with a social work horses or mules teamster to help give you support for any [...] you up for automated weekly questionnaires through [employer]. This is an easy way for us [...] 14, 2022 6:14 PM documented in this encounterDelaware County Hospital12-12-2022 Miscellaneous Notes* Telephone Encounter - Coco Wills - 03/13/2022 3:06 PM EST PAP forms faxed to [email or web address] with prescription. documented in this encounterDelaware County Hospital12-06-2022 History of Present illness Narrative* Omer Narvaez, - 03/07/2022 11:15 AM EST Diagnoses: 1) [...] and was discharged. Was seen by a bench boring machine operator at a tertiary center. Testing suggested that [...] edema. SKIN: No jaundice or rash. 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 No focal motor [...] with more than 50% of the total liyd-ct-agvi time of the visit in reviewing test results, plan of care and coordination of care Omer Narvaez DO documented in this encounterDelaware County Hospital12-05-2022 Miscellaneous Notes* Telephone Encounter - Candice Yang Pss - 03/06/2022 2:15 PM EST Patient scheduled by another PSR. * Telephone Encounter - Omer Everadro DO Solange - 03/05/2022 10:25 AM EST Please schedule her for a follow-up visit with me sometime in the next 2 weeks so that I can document recommendations for perioperative use of cryoprecipitate if needed for her upcoming gallbladder surgery. Omer Narvaez DO documented in this encounterDelaware County Hospital12-01-2022 History of Present illness Narrative* Winsome Kathy [facility] - 03/02/2022 1:31 PM EST [id number] Dr. Ruby Study Visit: Week Week [...] n/a KCCQ completed: Not Required per protocol [place] QoL completed: Not Required per protocol EQ-5D-5L [...] provided: Protocol required tests/procedures Materials dispensed: None legal billing coordinator: Winsome Chavez [facility] Pager #: [phone] documented in this encounterDelaware County Hospital11-25-2022 Miscellaneous Notes* Telephone Encounter - Edita [...] Update on symptoms please documented in this encounterDelaware County Hospital11-25-2022 History of Present illness Narrative* Amelia [...] Not applicable SIGNED BY: Amelia Jimenez RDMS T February 24, 2022 9:55 AM documented in this encounterDelaware County Hospital11-21-2022 History of Present illness Narrative* Eugenio Hernandez MD - 02/20/2022 6:18 PM EST Images from the original note were not included. This note was created using [employer]. Subjective Yris Villagomez is a 81 year [...] Coronary Lesion Patient in clinical research study- IRB#[id number] Cardio TTRansform Neuropathy Statin Intolerance Current Outpatient [...] Take 2 tablets by mouth once daily. INV [id number] 150 MG/ML OR PLACEBO INJECTION (IRB -) Inject 0.3 mL subcutaneously every 4 weeks. [...] 459.89, ICD10: R58 Significance not clear. - [employer] Further recommendations with results. Observe only for now. Eugenio Hernandez MD documented in this encounterDelaware County Hospital11-21-2022 Miscellaneous Notes* Telephone Encounter - Courtney [...] : No Protocols used: Abdominal Pain - Lrlrth-[id number]-LH documented in this encounterDelaware County Hospital11-18-2022 History and physical note * Franklin [...] record for internal providers or lettervia the [employer] for external providers. Chief Complaint: Abdominal pain History of Present Illness: Yris Villagomez is a 81 year old year old female intermittent abdominal pain, vomiting, RUQ pain. U/S shows stones and sludge. Elevated LFT's. Previous DVT, PE. 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 180 tablet 3 INV [id number] 150 MG/ML OR PLACEBO INJECTION ([facility] 20-) Inject 0.3 mL subcutaneously every [...] mL (BD POSIFLUSH) 10 mL INTRAVENOUS DIRECTED PRGregory Ruby MD ALLERGIES Allergen Reactions Iodine Hives FAMILY HISTORY Problem Relation Age of Onset Coronary Artery Disease Mother 83, CVA Colon Cancer Mother Coronary Artery Disease Father [place] 45 Cancer Brother multiple myeloma None Daughter [...] Surgery, and Surgical Endoscopy documented in this encounterDelaware County Hospital11-11-2022 History of Present illness Narrative* Diane Alcala RN - 02/10/2022 3:56 PM EST [facility]IGHT [facility] TELEPHONIC OUTREACH Provider Action/FYI: Call to Pt left a message to verify CHF/ CKD or other symptoms or needs. Contact made with patient: No - Left message Hello my name is Diane Alcala RN your Rod Filler [facility] I am callingtoday for your bi-weekly [...] RN - 02/08/2022 2:29 PM EST INSIGHT CD TELEPHONIC OUTREACH Provider Action/FYI: Call to Pt left a message to verify CHF/ CKD or other symptoms or needs. Contact made with patient: No - Left message Silver my name is Diane Alcala RN your Rod Filler [facility] I am callingtoday for your bi-weekly [...] 08, 2022 2:29 PM documented in this encounterDelaware County Hospital11-11-2022 Miscellaneous Notes* Telephone Encounter - LAKSHMI Galvin - 02/10/2022 9:17 AM EST SW received. JING successfully faxed pt's completed re-enrollment application, along with new prescription, to [facility] this date. All original forms sent to internal scanning. LAKSHMI Galvin-Zarina * Telephone Encounter - Coby Tatum LPN - 02/09/2022 4:14 PM EST Rx placed on desk. Coby Tatum LPN * Telephone Encounter - Omer Narvaez DO - 02/09/2022 3:51 PM EST Rx printed. Omer Narvaez DO * Telephone Encounter - LAKSHMI Galvin - 02/09/2022 2:39 PM EST JING completing pt's 2022 med assist re-enrollment for Lovenox through [facility]. Pt is in need of a new hard-copy prescription of her Lovenox to send along with the re-enrollment application. SW to forward to Dr. Narvaez. LAKSHMI Galvin-S documented in this encounterDelaware County Hospital11-07-2022 History of Present illness Narrative* Omer [...] and was discharged. Was seen by a bench boring machine operator at a tertiary center. Testing suggested that [...] edema. SKIN: No jaundice or rash. 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 No focal motor [...] care. Omer Narvaez DO documented in this encounterDelaware County Hospital11-02-2022 Miscellaneous Notes* Telephone Encounter - Frances [...] to set up Gen Surgery appointment. Amrita Rizzo, RN * Telephone Encounter - Nuvia Grissom APRN.CNP - 01/30/2022 4:25 PM EDT Please let patient know she has cholelithiasis and sludge in her gall bladder. How is she feeling? I am consulting her to general surgery for further evaluation and also ordering for her liver enzymes repeated and also blood counts. 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 INV [id number] 150 MG/ML OR PLACEBO INJECTION (IRB 20-205) Inject 0.3 mL subcutaneously every 4 weeks. [...] Colon Cancer Mother Coronary Artery Disease Father [place] 45 Cancer Brother multiple myeloma None Daughter None Daughter other (heart attack) Son other (fibramyalgia) Son other (blood clots in lungs) Son REVIEW OF SYMPTOMS: The review of systems data was entered by the nurse and reviewed by in Nursing Notes: Emeli Jovel RN 01/31/2022 8:48 [...] Brayan Ahn III, MD documented in this encounterDelaware County Hospital11-01-2022 Nurse Note* Emeli Jovel RN - [...] 2015 Emeli Jovel RN documented in this encounterDelaware County Hospital10-28-2022 History of Present illness Narrative* Amelia Jimenez RDMS - 01/27/2022 11:15 AM EDT Radiology Service [...] 10, 2022 2:31 PM documented in this encounterDelaware County Hospital10-25-2022 History of Present illness Narrative* Fredrick Walker RN - 01/24/2022 4:33 PM EDT INSIGHT [facility] TELEPHONIC OUTREACH Provider Action/FYI: Call to Pt left a message to verify CHF/ CKD or other symptoms or needs. Contact made with patient: No - Left message Silver my name is Diane Alcala RN your Rod Filler [facility] I am callingtoday for your bi-weekly [...] 24, 2022 4:33 PM documented in this encounterDelaware County Hospital10-20-2022 Miscellaneous Notes* Telephone Encounter - Nuvia [...] Sunday morning. 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 INV [id number] 150 MG/ML OR PLACEBO INJECTION (IRB 20-) [...] Colon Cancer Mother Coronary Artery Disease Father [place] 45 Cancer Brother multiple myeloma None Daughter [...] variant. AXIS: Left axis deviation INTERVALS: Normal MI interval QRS COMPLEX: Normal ST SEGMENT: Inferior [...] plan. Nuvia Grissom APRN.CNP documented in this encounterDelaware County Hospital10-14-2022 History of Present illness Narrative* Fredrick Walker RN - 01/13/2022 9:00 AM EDT [facility] TELEPHONIC OUTREACH Provider Action/FYI: Called Pt related to CHF/ CKD or other symptoms, left a message. Contact made with patient: No - Left message Hello my name is Diane Alcala RN your Rod Filler [facility] I am callingtoday for your bi-weekly [...] 13, 2022 9:00 AM documented in this encounterDelaware County Hospital10-13-2022 History of Present illness Narrative* Fredrick Walker RN - 01/12/2022 2:03 PM EDT [facility] TELEPHONIC OUTREACH Provider Action/FYI: Called Pt left a message to verify CHF/ CKD symptoms or needs. Contact made with patient: No - Left message Hello my name is Diane Alcala RN your Rod Filler [facility] I am callingtoday for your bi-weekly [...] 12, 2022 2:03 PM documented in this encounterDelaware County Hospital10-06-2022 Miscellaneous Notes* Telephone Encounter - LAKSHMI Galvin - 01/05/2022 3:51 PM EDT SW called pt to inform her that her Lovenox medication is available for pickup. Pt reports she willbe able to pick it up on 01/09/22. Medication is secured in Sw's office. LAKSHMI Galvin-S documented in this encounterDelaware County Hospital10-03-2022 History of Present illness Narrative* Nuvia Grissom, POSITION DESCRIPTION MANAGER.MATH AND SCIENCE INSTRUCTOR - 01/02/2022 1:41 PM EDT CC: Patient [...] nausea, vomiting, or diarrhea : See HPI TRAFFIC SIGNAL SUPERVISOR MAINTENANCE: Negative for abnormal vaginal bleeding, abnormal vaginal discharge Skin: Negative for lesions, rash, and itching Neurologic: No headache, weakness, numbness, tingling, dizziness, syncope. 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 Health maintenance reviewed with patient: BRYANIX VACCINE(3 of 3) due on 03/16/2020 DEPRESSION [...] plan. Nuvia Grissom APRN.CNP documented in this encounterDelaware County Hospital09-23-2022 Miscellaneous Notes* Telephone Encounter - Lizbeth [...] advise and call patient. documented in this encounterDelaware County Hospital09-23-2022 Miscellaneous Notes* Telephone Encounter - Corinne [...] advise. Hayley Adorno Pss documented in this encounterDelaware County Hospital09-12-2022 History of Present illness Narrative* Fredrick [...] like to speak with a social work horses or mules teamster to help give you support for any [...] you up for automated weekly questionnaires through [employer]. This is an easy way for us [...] 12, 2021 9:29 AM documented in this encounterDelaware County Hospital09-06-2022 History of Present illness Narrative* Rito Valera MD - 12/06/2021 2:11 PM EDT Images from the original note were not included. 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 Colonoscopy COLONOSCOPY FLX DX W/COLLJ SPEC [...] Colon Cancer Mother Coronary Artery Disease Father [place] 45 Cancer Brother multiple myeloma None Daughter [...] mouth once daily.^Disp: 30 capsule^Rfl: 11 INV [facility]-[id number] 150 MG/ML OR PLACEBO INJECTION (IRB 20-)^Inject [...] non-medical management as above. Daija Valera MD [facility] Section Of Heart Failure and Cardiac Transplant Medicine [facility] Desk [address] [place] [address] documented in this encounterDelaware County Hospital09-06-2022 History of Present illness Narrative* Winsome Chavez [facility] - 12/06/2021 10:04 AM EDT IRB #[id number] [...] Dates and locations: n/a KCCQ completed: Yes [place] QoL completed: Not Required per protocol EQ-5D-5L [...] provided: Protocol required tests/procedures Materials dispensed: None legal billing coordinator: Winsome Chavez [facility] Pager #: [phone] documented in this encounterDelaware County Hospital08-12-2022 History of Present illness Narrative* Fredrick Walker RN - 11/11/2021 1:20 PM EDT [facility]LEPHONIC OUTREACH Provider Action/FYI: Spk with Pt [...] like to speak with a social work horses or mules teamster to help give you support for any [...] you up for automated weekly questionnaires through [employer]. This is an easy way for us [...] 11, 2021 1:20 PM documented in this encounterDelaware County Hospital07-28-2022 History of Present illness Narrative* Fredrick [...] like to speak with a social work horses or mules teamster to help give you support for any [...] you up for automated weekly questionnaires through [employer]. This is an easy way for us [...] 27, 2021 3:34 PM documented in this encounterDelaware County Hospital07-13-2022 History of Present illness Narrative* Fredrick [...] like to speak with a social work horses or mules teamster to help give you support for any [...] you up for automated weekly questionnaires through [employer]. 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 INV [id number] 150 MG/ML OR PLACEBO INJECTION (IRB 20-) [...] 1 tablet by mouth once daily. 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 [facility] ED 09/12/21 Seen for weakness, chest [...] like to speak with a social work horses or mules teamster to help give you support for any of these needs? Yes - patient would like to speak to a Primary Care Comic Writer - Informed patient that a PrimaryCare Comic Writer will be in contact to discuss further. Routed to the ADULT PRIMARY CARE SOCIAL WORK pool [[id number]] and indicated in the FYI box. It [...] you up for automated weekly questionnaires through [employer]. This is an easy way for us [...] 16, 2021 10:04 AM documented in this encounterDelaware County Hospital06-16-2022 History of Present illness Narrative* Winsome Kathy [facility] - 09/15/2021 1:17 PM EDT IRB #[id number] CardioTTRansform PI: Dr. Ruby Study Visit: Week 61 I met with the patient for the Study Visit for the CardioTTRansform Study. Reaffirmed that [...] outside hospitalizations/ER visits: Yes Dates and locations: [facility] ER on 09/12/2021. Patient c/o left breast discomfortwhich she describes as indigestion. Vitals WNL, ECG normal. Chest x-ray - clear. Discharged to home09/12/21. KCCQ completed: Yes [place] QoL completed: Yes EQ-5D-5L completed: Yes Ocular [...] provided: Protocol required tests/procedures Materials dispensed: None legal billing coordinator: Winsome Chavez [facility] Pager #: [phone] documented in this encounterDelaware County Hospital06-13-2022 Miscellaneous Notes* Telephone Encounter - Helga [...] 10. OTHER SYMPTOMS: Denies Protocols used: CHEST [id number] documented in this encounterDelaware County Hospital06-09-2022 History of Present illness Narrative* Gab [...] a trial drugI will confirm with the safety grooving machine operator if it would be good to have the medication. Hyperlipidemia- we need to check her lipids and treat as needed. Last check was a year and a half ago. Magnesium was higher in the last lab, recheck is required. Memory deficits: last visit for the first time she reported having memory deficits. She does not want to go to [place]. Unless things get worse. 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 PVC's 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/12/2008 Chest pain Chronic kidney disease (CKD), stage III (moderate) ([facility]) 07/27/2016 Coronary artery disease due to calcified coronary lesion 06/22/2021 Diverticulitis Diverticulosis of colon (without mention of hemorrhage) Diverticulosis of colon with hemorrhage DVT (deep venous thrombosis) ([facility]) After knee surgery Dysmetabolic syndrome X Hemorrhage [...] FLX DX W/COLLJ SPEC WHEN PFRMD 06/23/[facility] Colonoscopy COLONOSCOPY FLX DX W/COLLJ SPEC [...] Colon Cancer Mother Coronary Artery Disease Father IA 45 Cancer Brother multiple myeloma None Daughter [...] tablet torsemide (DEMADEX) 10 mg tablet Ipratropium [place] (ATROVENT) 21 mcg (0.03 %) nasal spray tafamidis (VYNDAMAX) 61 mg INV [id number] 150 MG/ML OR PLACEBO INJECTION (IRB 20-) [...] good. Gab Pisano MD documented in this encounterDelaware County Hospital06-07-2022 Miscellaneous Notes* Telephone Encounter - Ophelia Anderson - 09/06/2021 9:37 AM EDT Spoke to patient todayregarding 09/15/21 appointment. Patient has decided to keep 09/15/21~ left my name and numner documented in this encounterDelaware County Hospital06-02-2022 History of Present illness Narrative* Fredrick Walker RN - 09/01/2021 10:58 AM EDT INSIGHT [facility] TELEPHONIC OUTREACH Provider Action/FYI: 08/24/21 [facility] ED Nausea and Vomiting Spk with [...] like to speak with a social work horses or mules teamster to help give you support for any [...] you up for automated weekly questionnaires through [employer]. This is an easy way for us [...] 01, 2021 10:58 AM documented in this encounterDelaware County Hospital05-18-2022 History of Present illness Narrative* Fredrick [...] like to speak with a social work horses or mules teamster to help give you support for any [...] you up for automated weekly questionnaires through [employer]. This is an easy way for us [...] 17, 2021 11:55 AM documented in this encounterDelaware County Hospital05-16-2022 History of Present illness Narrative* Fredrick Walker RN - 08/15/2021 10:20 AM EDT INSIGHT [facility] TELEPHONIC OUTREACH Provider Action/FYI: Call to Pt left a message to verify CHF/ CKD or other symptom status and needs. Contact made with patient: No - Left message Silver my name is Diane Alcala RN your Rod Filler [facility] I am calling today for your bi-weekly check in. I am sorry I missed your call. I will reach out to you again tomorrow. (if the third call I will reach out to you again next week) Enter next patient outreach date forthe following using the Track Pt Outreach. End outreach. Diane Alcala RN August 15, 2021 10:20 AM documented in this encounterDelaware County Hospital05-06-2022 History of Present illness Narrative* Omer Narvaez, DO - 08/05/2021 2:34 PM EDT Diagnoses: [...] and was discharged. Was seen by a bench boring machine operator at a tertiary center. Testing suggested that [...] pain. She did however bump into her document imaging specialist door a few weeks ago and had [...] edema. SKIN: No jaundice or rash. 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 No focal motor [...] care. Omer Narvaez DO documented in this encounterDelaware County Hospital04-29-2022 History of Present illness Narrative* Fredrick [...] like to speak with a social work horses or mules teamster to help give you support for any [...] you up for automated weekly questionnaires through [employer]. This is an easy way for us [...] 29, 2021 8:56 AM documented in this encounterDelaware County Hospital04-14-2022 History of Present illness Narrative* Fredrick [...] like to speak with a social work horses or mules teamster to help give you support for any [...] you up for automated weekly questionnaires through [employer]. This is an easy way for us [...] 14, 2021 4:18 PM documented in this encounterDelaware County Hospital04-13-2022 Miscellaneous Notes* Telephone Encounter - Winsome Chavez [facility] - 07/13/2021 4:05 PM EDT [id number]: Dr. Ruby Reaffirmed that the patient still wishes to participate in the study and continues to consent to the study. Informed Consent Form, version 17 Jun 2021 sent to patient by [email or web address] via email. Patient contact information reaffirmed and updated. Coordinator contact information provided to the patient. Education provided: Protocol required tests/procedures Winsome Chavez [facility] Pager #: [phone] documented in this encounterDelaware County Hospital04-04-2022 History of Present illness Narrative* LAKSHMI Storm - 07/04/2021 11:27 AM EDT SOCIAL WORK FOLLOW UP NOTE: [facility] Date of service: July 04, 2021 Yris Villagomez is being seen for a follow up social work visit. Today's visit includes: patient TOPICS ADDRESSED: Finances; Patient came to office to molded goods spot picker medication. No other needs identified. PLAN: Continue follow up as needed F/U APPOINTMENT: PRN LAKSHMI Storm documented in this encounterDelaware County Hospital04-01-2022 Miscellaneous Notes* Telephone Encounter - LAKSHMI Storm - 07/01/2021 2:51 PM EDT SOCIAL WORK FOLLOW UP NOTE: [facility] Date of service: July 01, 2021 Yris Villagomez is being seen for a follow up social work visit. Today's visit includes: patient TOPICS ADDRESSED: Finances; Patient's Lovenox arrived and patient informed. Patient will molded goods spot picker next week. No other needs identified. PLAN: Continue follow up as needed F/U APPOINTMENT: PRN LAKSHMI Storm documented in this encounterDelaware County Hospital03-31-2022 History of Present illness Narrative* Fredrick Walker RN - 06/30/2021 10:27 AM EDT INSIGHT [facility] TELEPHONIC OUTREACH Provider Action/FYI: Spk with Pt who reports she is doing well, her is in an [facility] she and her childrenare ready to go [...] 30, 2021 10:27 AM documented in this encounterDelaware County Hospital03-29-2022 Miscellaneous Notes* Telephone Encounter - LAKSHMI Storm - 06/28/2021 9:28 AM EDT SOCIAL WORK FOLLOW UP NOTE: [facility] Date of service: June 28, 2021 Yris Villagomez is being seen for a follow up social work visit. Today's visit includes: patient not present TOPICS ADDRESSED: Finances; [facility]. PLAN: Continue follow up as needed F/U APPOINTMENT: PRLAKSHMI Overton [facility] Miscellaneous Notes* Telephone Encounter - LAKSHMI Storm - 06/27/2021 2:56 PM EDT SOCIAL WORK FOLLOW UP NOTE: [facility] Date of service: June 27, 2021 Yris Villagomez is being seen for a follow up social work visit. Today's visit includes: patient and [employer] TOPICS ADDRESSED: Patient called SW to state she has 21 days of medication left. SW called [employer] to have reorder form faxed to office. Once received SW will complete and [facility]. No other needs identified. PLAN: Assist with financial support applications and Continue follow up as needed F/U APPOINTMENT: LAKSHMI Shields documented in this [facility]Del[facility]03-23-[facility]22 Instructions* Patient Instructions* Genia Ruby MD - 06/22/2021 12:21 PM EDT RTC in 3 months Will refer to neurology for memory impeirment documented in this encounterDel[facility]03-[facility]22 History of Present illness Narrative* Genia Ruby MD - 06/22/2021 12:00 PM EDT Images from the original note were not included. 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 The patient has been referred by Evi Zamora MD. Yris Villagomez has a past medical history of Abdominal pain, unspecified site, Acid reflux, Acute gastritis withoutmention of hemorrhage, Arrhythmia, Benign neoplasm of colon (03/12/2008), Chest pain, Chronic kidney disease (CKD), stage III (moderate) ([facility]) (07/27/2016), Coronary artery disease due to calcified coronary lesion (06/22/2021), Diverticulitis, Diverticulosis of colon (without mention of hemorrhage), Diverticulosis of colon with hemorrhage, DVT (deep venous thrombosis) ([facility]), Dysmetabolic syndrome X, Hemorrhage of gastrointestinal tract, [...] Blood dyscrasia, Chronic obstructive pulmonary disease (COPD) ([facility]), Diabetes ([facility]), Glaucoma, Heart attack ([facility]), Parkinson disease ([facility]), Seizures ([facility]), Snoring, Stroke ([facility]), or Syncope. 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/12/2008 [...] FLX DX W/COLLJ SPEC WHEN PFRMD 06/23/2011 [facility] Colonoscopy COLONOSCOPY FLX DX W/COLLJ SPEC WHEN PFRMD 03/05/14 Colonoscopy COLSC FLX W/REMOVAL LESION BY HOT BX FORCEPS 03/12/08 EGD TRANSORAL BIOPSY SINGLE/MULTIPLE 03/12/08 EGD TRANSORAL BIOPSY SINGLE/MULTIPLE 09-30-12 ESOPHAGOGASTRODUODENOSCOPY TRANSORAL DIAGNOSTIC 06/10/2015 EGD HYSTERECTOMY, REVISE VAGINA; COLPECTOMY 1980 Hysterectomy with bladder repair still ovaries ARTEAGA W/O FACETEC FORAMOT/DSC / VRT SGM CRV 2001 Discectomy and fusion, [...] Colon Cancer Mother Coronary Artery Disease Father [place] 45 Cancer Brother multiple myeloma None Daughter [...] 2 tablets by mouth once daily. Ipratropium [place] (ATROVENT) 21 mcg (0.03 %) nasal spray Use 2 Sprays in the nose every 12 hours. tafamidis (VYNDAMAX) 61 mg Take 1 capsule by mouth once daily. INV [id number] 150 MG/ML OR [place]ACE[place] INJECTION (IRB 20-) [...] Wt 63.4 kg (139 lb 11.2 oz) RcF821% BMI 23.25 kg/m CONSTITUTIONAL: Well appearing, in [...] year old White female who [facility] and management of Heart [...] Blood dyscrasia, Chronic obstructive pulmonary disease (COPD) ([facility]), Diabetes (HCC), Glaucoma, Heart attack (HCC), Parkinson [...] flx dx w/collj spec when pfrmd (06/23/2011 [facility]); egd transoral biopsy single/multiple (09-30-12); colonoscopy [...] Order Specific Question: Provider Answer: Genia RUBY [[id number]] Order Specific Question: CVM Section: Answer: Heart Failure Order Specific Question: Testing Options: Answer: No Testing Order Specific Question: Return: Answer: 3 months CONSULT TO NEUROLOGY Standing Status: Future Standing Expiration Date: 06/22/2022 Order Specific Question: Does consulting provider have [facility] Epic access? Answer: Yes [facility] STAFF PHYSICIAN NOTE OF PERSONAL INVOLVEMENT IN CARE I have personally performed a bvlw-bh-zmnj diagnostic evaluation on this patient, including anamnesis [...] of Heart Failure and Transplantation Medicine Nate Masoud [facility] Sam Storm Department of Cardiovascular Medicine [facility] Heart[facility] Vascular and Thoracic [address] [address] [place] Tel: [phone] Fax: [phone] Appt: [phone] documented in this encounterDelaware County Hospital07-15-2021 NoteHNO ID: [id number] Author: Alena Bradley APRN.ALESSANDRO Service: ? Author Type: Nurse Practitioner Type: Progress Notes Filed: 10/14/2020 8:29 AM Note Text: [facility] PROGRESS NOTE PATIENT: Yris Villagomez MRD: [id number] DATE: October 14, 2020 IDENTIFYING INFORMATION: Yris [...] putting off. Her last visit [facility] she had better test results and this has helped her relax. She shares that her appetite may also be better. Her grandchildren are visiting, they went out to eat [employer] food and she ate a lot of [...] of the medication, c (more content not included)...[facility]06-17-2021 History of Past illness Narrative* Problem [...] of this encounter (statuses as of 02/04/2023) [facility] of Past illness Narrative* Problem [...] of this encounter (statuses as of 02/04/2023) [facility] NoteHNO ID: [id number] Author: Alena Bradley APRN.MATH AND SCIENCE INSTRUCTOR Service: ? Author Type: Nurse Practitioner Type: Progress Notes Filed: 09/16/2020 10:36 AM Note Text: [facility] INITIAL PSYCHIATRIC EVALUATION PATIENT: Yris Villagomez MRD: [id number] DATE: September 16, 2020 IDENTIFYING INFORMATION: Yris [...] month. She started on medicines and her bench boring machine operator took her off the SSRI (effexor) [place] [...] for her. She is strong in her spiritism daisy. 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 She worked up to (more content not included)... [facility]08-[facility] History of Past illness Narrative* Problem [...] of this encounter (statuses as of 06/27/2021) [facility] of [facility] illness Narrative* Problem [...] of this encounter (statuses as of 06/28/2021) [facility] Narrative* Problem [...] of this encounter (statuses as of 06/30/2021) [facility] Narrative* Problem [...] of this encounter (statuses as of 06/30/2021) [facility] Narrative* Problem [...] of this encounter (statuses as of 07/01/2021) [facility] Narrative* Problem [...] of this encounter (statuses as of 07/04/2021) [facility] Narrative* Problem [...] of this encounter (statuses as of 07/13/2021) [facility] Narrative* Problem [...] of this encounter (statuses as of 07/14/2021) [facility] Narrative* Problem [...] of this encounter (statuses as of 07/16/2021) [facility] Narrative* Problem [...] of this encounter (statuses as of 07/29/2021) [facility] Narrative* Problem [...] of this encounter (statuses as of 08/05/2021) [facility] Narrative* Problem [...] of this encounter (statuses as of 08/17/2021) [facility] Narrative* Problem [...] of this encounter (statuses as of 08/17/2021) [facility] Narrative* Problem [...] of this encounter (statuses as of 09/01/2021) [facility] Narrative* Problem [...] of this encounter (statuses as of 09/06/2021) [facility] Narrative* Problem [...] of this encounter (statuses as of 09/08/2021) [facility] Narrative* Problem [...] of this encounter (statuses as of 09/14/2021) [facility] Narrative* Problem [...] of this encounter (statuses as of 09/15/2021) [facility] Narrative* Problem [...] of this encounter (statuses as of 09/16/2021) [facility] Narrative* Problem [...] of this encounter (statuses as of 10/06/2021) [facility]* Problem [...] of this encounter (statuses as of 10/12/2021) [facility] Narrative* Problem [...] of this encounter (statuses as of 10/27/2021) [facility] Narrative* Problem [...] of this encounter (statuses as of 11/11/2021) [facility] Narrative* Problem [...] of this encounter (statuses as of 12/06/2021) [facility] Narrative* Problem [...] of this encounter (statuses as of 12/12/2021) [facility] Narr[facility]* Problem [...] of this encounter (statuses as of 12/19/2021) [facility] Narr[facility]* Problem [...] of this encounter (statuses as of 12/23/2021) [facility]arr[facility]* Problem [...] of this encounter (statuses as of 12/26/2021) [facility]arr[facility]* Problem [...] of this encounter (statuses as of 12/27/2021) [facility]* Problem [...] of this encounter (statuses as of 01/02/2022) [facility]* Problem [...] of this encounter (statuses as of 01/05/2022) [facility]* Problem [...] of this encounter (statuses as of 01/12/2022) [facility]* Problem [...] of this encounter (statuses as of 01/18/2022) [facility]* Problem [...] of this encounter (statuses as of 01/19/2022) [facility]* Problem [...] of this encounter (statuses as of 01/24/2022) [facility]* Problem [...] of this encounter (statuses as of 01/31/2022) [facility]* Problem [...] of this encounter (statuses as of 02/01/2022) [facility]* Problem [...] of this encounter (statuses as of 02/03/2022) [facility]* Problem [...] of this encounter (statuses as of 02/06/2022) [facility]* Problem [...] of this encounter (statuses as of 02/10/2022) [facility]* Problem [...] of this encounter (statuses as of 02/10/2022) [facility]* Problem [...] of this encounter (statuses as of 02/14/2022) [facility]* Problem [...] of this encounter (statuses as of 02/17/2022) [facility]* Problem [...] of this encounter (statuses as of 02/21/2022) [facility]* Problem [...] of this encounter (statuses as of 03/02/2022) [facility]* Problem [...] of this encounter (statuses as of 03/07/2022) [facility]* Problem [...] of this encounter (statuses as of 03/13/2022) [facility]* Problem [...] of this encounter (statuses as of 03/14/2022) [facility]* Problem [...] of this encounter (statuses as of 03/14/2022) [facility]* Problem [...] of this encounter (statuses as of 03/15/2022) [facility]* Problem [...] of this encounter (statuses as of 03/21/2022) [facility] Problem [...] of this encounter (statuses as of 03/22/2022) [facility] Problem [...] of this encounter (statuses as of 04/04/2022) [facility] Problem [...] of this encounter (statuses as of 04/06/2022) [facility] Problem [...] of this encounter (statuses as of 04/07/2022) [facility]* Problem [...] of this encounter (statuses as of 04/08/2022) [facility] Problem [...] of this encounter (statuses as of 04/10/2022) [facility] Problem [...] of this encounter (statuses as of 04/11/2022) [facility] Problem [...] of this encounter (statuses as of 04/12/2022) [facility] Problem [...] of this encounter (statuses as of 04/18/2022) [facility] Problem [...] of this encounter (statuses as of 05/15/2022) [facility] Problem [...] of this encounter (statuses as of 05/23/2022) [facility] Problem [...] of this encounter (statuses as of 05/23/2022) [facility] Problem [...] of this encounter (statuses as of 05/24/2022) [facility] Problem [...] of this encounter (statuses as of 05/26/2022) [facility] Problem [...] of this encounter (statuses as of 06/02/2022) [facility] Problem [...] of this encounter (statuses as of 06/02/2022) [facility] Problem [...] of this encounter (statuses as of 06/09/2022) [facility] Problem [...] of this encounter (statuses as of 06/12/2022) [facility] Problem [...] of this encounter (statuses as of 06/12/2022) [facility] Problem [...] of this encounter (statuses as of 06/21/2022) [facility]* Problem Noted Date Resolved Date Chest pain 11/10/2019 11/13/2019 Hospital discharge follow-up 05/14/2019 11/ Moderate protein-calorie malnutrition 05/06/2019 11/19/2019 Epigastric pain [...] of this encounter (statuses as of 06/27/2022) [facility]* Problem [...] of this encounter (statuses as of 07/05/2022) [facility] Problem [...] of this encounter (statuses as of 07/10/2022) [facility] Problem [...] of this encounter (statuses as of 07/12/2022) [facility] Problem [...] of this encounter (statuses as of 07/27/2022) [facility] Problem [...] of this encounter (statuses as of 08/01/2022) [facility] Problem [...] of this encounter (statuses as of 08/06/2022) [facility] Problem [...] of this encounter (statuses as of 08/08/2022) [facility] Problem [...] of this encounter (statuses as of 08/30/2022) [facility] Problem [...] of this encounter (statuses as of 09/16/2022) [facility] Problem [...] of this encounter (statuses as of 09/27/2022) [facility]* Problem [...] 11/30/2006 08/28/2013 Adjustment disorder with depressed mood 05/16/1908/28/2013 Hypothyroidism 09/30/2018 Abdominal pain, unspecified site 08/28/2013 documented as of this encounter (statuses as of 10/05/2022) [facility] Diagnosis Chronic diastolic heart failure (HCC)- Primary Chronic diastolic heart failure Examination of participant in clinical trial [facility] Diagnosis Research study patient- Primary [facility] Diagnosis 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) Other amyloidosis Chronic diastolic heart failure (HCC) Chronic diastolic heart failure Mixed hyperlipidemia Essential hypertension Unspecified essential hypertension Coronary artery disease due to calcified coronary lesion Patient in clinical research study- [id number] Cardio TTRansform Neuropathy Mononeuritis of unspecified site [facility] Diagnosis 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ein of right lower extremity (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 [facility]* Diagnosis Acquired hypothyroidism- Primary Unspecified hypothyroidism Statin intolerance Other drug allergy Essential hypertension Unspecified essential hypertension Mixed hyperlipidemia Insomnia, unspecified type [facility] Diagnosis Patient in clinical research study- Primary [facility] Diagnosis Acute pain of right shoulder [facility] Diagnosis 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 [facility]* Diagnosis Research subject- Primary [facility] Diagnosis Mixed hyperlipidemia- Primary [facility]* Diagnosis 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 [facility] Diagnosis Cardiac amyloidosis (HCC)- Primary Other amyloidosis Examination of participant in clinical trial [facility]* Diagnosis Essential hypertension- Primary Unspecified essential hypertension Acquired hypothyroidism Unspecified hypothyroidism Urinary hesitancy Mixed hyperlipidemia 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) Other amyloidosis Need for influenza vaccination Need for prophylactic vaccination and inoculation against influenza [facility] Diagnosis Lower abdominal tenderness- Primary Abdominal tenderness, other specified site Other fatigue Palpitations Vomiting without nausea, unspecified vomiting type [facility]* Diagnosis Calculus of gallbladder without cholecystitis without obstruction Calculus of gallbladder without mention of cholecystitis or obstruction Elevated liver enzymes Other nonspecific abnormal serum enzyme levels [facility] Diagnosis Calculus of gallbladder without cholecystitis without obstruction- Primary Calculus of gallbladder without mention of cholecystitis or obstruction Elevated liver enzymes Other nonspecific abnormal serum enzyme levels [facility]* Diagnosis Chronic diastolic heart failure (HCC)- Primary Chronic diastolic heart failure Examination of participant in clinical trial [facility] Diagnosis 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 History of pulmonary embolism Personal history of pulmonary embolism 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ein of right lower extremity (HCC) [facility]* Diagnosis Calculus of gallbladder with acute on chronic cholecystitis with obstruction- Primary [facility]* Diagnosis Groin pain, right- Primary Ecchymosis Other specified circulatory system disorders [facility] Diagnosis Cholelithiasis with choledocholithiasis- Primary Calculus of gallbladder and bile duct without cholecystitis, without mention of obstruction Pre-op examination Preoperative examination, unspecified [facility] Diagnosis Clinical trial participant- Primary Calculus of gallbladder with cholecystitis without biliary obstruction, unspecified cholecystitis acuity Pre-op examination Preoperative examination, unspecified [facility] Diagnosis 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 Calculus of gallbladder with cholecystitis without biliary obstruction, unspecified cholecystitis acuity Pre-op examination Preoperative examination, unspecified documented in this encounter [facility] Acute abdomen- Primary Abdominal pain, unspecified site Right upper quadrant abdominal pain Abdominal pain, right upper quadrant Infection in abdomen (HCC) Unspecified peritonitis [facility] Diagnosis Retention of urine- Primary Retention of urine, unspecified [facility] Diagnosis S/P laparoscopic cholecystectomy- Primary Other postprocedural status Post-operative state Other postprocedural status MCC (current) use of anticoagulants Long-term (current) use of anticoagulants [facility] Diagnosis 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 [facility] Diagnosis 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 Coronary artery disease due to calcified coronary lesion Cholecystitis Cholecystitis, unspecified Research subject Hypercholesterolemia Pure hypercholesterolemia 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) Other amyloidosis Mixed hyperlipidemia Chronic diastolic heart failure (HCC) Chronic diastolic heart failure Essential hypertension Unspecified essential hypertension Neuropathy Mononeuritis of unspecified site [facility] Clinical trial participant- Primary [facility] Diagnosis 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) Other amyloidosis Cholecystitis Cholecystitis, unspecified Hypercholesterolemia Pure hypercholesterolemia Amyloidogenic transthyretin amyloidosis (HCC) Other amyloidosis Mixed hyperlipidemia Essential hypertension Unspecified essential hypertension Coronary artery disease due to calcified coronary lesion Neuropathy Mononeuritis of unspecified site Research subject [facility] Diagnosis Acute pain of right shoulder- Primary [facility]* Diagnosis Contrast media allergy- Primary Allergy to radiographic dye [facility]* Diagnosis Examination of participant in clinical trial- Primary [facility] Diagnosis 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 [facility] Diagnosis 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ein of right lower extremity (HCC) [facility] Diagnosis 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 [facility] Diagnosis Carpal tunnel syndrome, bilateral- Primary Carpal tunnel syndrome Neuropathy Mononeuritis of unspecified site [facility] Diagnosis Carpal tunnel syndrome, bilateral Carpal tunnel syndrome Neuropathy Mononeuritis of unspecified site [facility] Diagnosis Carpal tunnel syndrome, bilateral Carpal tunnel syndrome Neuropathy Mononeuritis of unspecified site [facility]* Diagnosis Examination of participant in clinical trial- Primary [facility] Diagnosis Acquired hypothyroidism Unspecified hypothyroidism [facility] Diagnosis Neck pain- Primary Cervicalgia Muscle spasm Spasm of muscle Skin lesion Unspecified disorder of skin and subcutaneous tissue [facility] Diagnosis Cardiac amyloidosis (HCC)- Primary Other amyloidosis [facility]* Diagnosis Pain and swelling of left lower leg- Primary 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 History of DVT of lower extremity Personal history of venous thrombosis and embolism History of pulmonary embolism Personal history of pulmonary embolism Chronic anticoagulation Long-term (current) use of anticoagulants Need for vaccination Need for prophylactic vaccination and inoculation against unspecified single disease [facility]* Diagnosis Neuropathy- Primary 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) Other amyloidosis [facility]* Diagnosis Elevated liver enzymes Other nonspecific abnormal serum enzyme levels [facility] Diagnosis Groin pain, right Ecchymosis Other specified circulatory system disorders [facility]* Diagnosis Infection in abdomen (HCC) Unspecified peritonitis Acute abdomen Abdominal pain, unspecified site [facility] Diagnosis 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ein of right lower extremity (HCC) History of pulmonary embolism Personal history of pulmonary embolism [facility] Diagnosis 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ein of right lower extremity (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 [facility] Diagnosis Cardiac amyloidosis (HCC)- Primary Other amyloidosis documented in this encounter [facility]* Diagnosis Examination of participant in clinical trial- Primary Chronic systolic heart failure (HCC) Chronic systolic heart failure documented in this encounter [facility] for referral (narrative)* Outpatient Procedure (Routine) - Authorized Specialty Diagnoses / Procedures Referred By Contac t Referred To Contact [facility] [place] Diagnoses Chronic diastolic heart failure (HCC) Examination of participant in clinical trial Procedures ECHO ECHO TTHRC R-T 2D W/WOM-MODE COMPL SPEC&COLR Rito Cerda MD [address] [facility] [address] [place] [address] [facility] [address] [address] Referral ID Status Reason Start Date Expiration Date Visits Requested Visits Authorized [id number] Authorized Auto-Generat ed Referral 09/15/2021 06/30/2022 1 1 [facility] for referral (narrative)* Outpatient Procedure (Routine) - Authorized Specialty Diagnoses / Procedures Referred By Contac t Referred To Contact [facility] Diagnoses Other fatigue Palpitations Procedures ECG COMPLETE ECG ROUTINE ECG W/LEAST 12 LDS W/I&R uNvia Grissom APRN.CNP [address] [place] [address] [facility] [address] [address] Referral ID Status Reason Start Date Expiration Date Visits Requested Visits Authorized [id number] Authorized Auto-Generat ed Referral 2 01/18/2023 1 1 [facility] for referral (narrative)* Outpatient Procedure (Routine) - Pending Review Specialty Diagnoses / Procedures Referred By Contac t Referred To Contact [facility] [place] Diagnoses Chronic diastolic heart failure (HCC) Examination of participant in clinical trial Procedures ECHO ECHO TTHRC R-T 2D W/WOM-MODE COMPL SPEC&COLR D Genia Ruby MD [address] [place] [address] [place] [address] Referral ID Status Reason Start Date Expiration Date Visits Requested Visits Authorized [id number] Pending Review Auto-Generat ed Referral 02/03/2022 02/02/2023 1 1 * Outpatient Procedure (Routine) - Pending Review Specialty Diagnoses / Procedures Referred By Contac t Referred To Contact [facility] Diagnoses Chronic diastolic heart failure (HCC) Examination of participant in clinical trial Procedures ECG COMPLETE ECG ROUTINE ECG W/LEAST 12 LDS W/I&R Genia Ruby MD [address] [place] [address] [place] [address] Referral ID Status Reason Start Date Expiration Date Visits Requested Visits Authorized [id number] Pending Review Auto-Generat ed Referral 02/03/2022 02/02/2023 1 1 [facility] for referral (narrative)* Diagnostic Procedure Only (Routine) - Authorized Specialty Diagnoses / Procedures Referred By Contac t Referred To Contact [facility] Diagnoses Groin pain, right Ecchymosis Procedures US PELVIS LTD US PELVIC NONOBSTETRIC IMAGE DCMTN LIMITED/F/U Eugenio Hernandez MD [address] [place] [address] [facility] Referral ID Status Reason Start Date Expiration Date Visits Requested Visits Authorized [id number] Authorized Auto-Generat ed Referral 03/22/2023 1 1 [facility] for referral (narrative)* Outpatient Procedure (Routine) - Pending Review Specialty Diagnoses / Procedures [facility] Diagnoses Wild-type transthyretin-related (ATTR) amyloidosis (HCC) Cholecystitis Research subject Hypercholesterolemia 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) Mixed hyperlipidemia Chronic diastolic heart failure (HCC) Essential hypertension Coronary artery disease due to calcified coronary lesion Neuropathy Procedures ECHO ECHO TTHRC R-T 2D W/WOM-MODE COMPL SPEC&COLR D Genia Ruby MD [address] [place] [address] [place] [address] Referral ID Status Reason Start Date Expiration Date Visits Requested Visits Authorized [id number] Pending Review Auto-Generat ed Referral 05/22/2022 05/22/2023 1 1 [facility] for referral (narrative)* Outpatient Procedure (Urgent) - Closed Specialty Diagnoses / Procedures [facility] To Contact [facility] Diagnoses Pain and swelling of left lower leg Procedures US LEG VEIN DVT UNL VAS LAB DUP-SCAN XTR VEINS UNILATERAL/LIMITED STUDY Eugenio Hernandez MD [address] [place] [address] [place] [address] Referral ID Status Reason Start Date Expiration Date V isits Requested Visits Authorized [id number] Closed Auto-Generate d Referral 12/05/2022 12/05/2023 1 1 [facility] for referral (narrative)* Diagnostic Procedure Only (Routine) - Closed Specialty Diagnoses / Procedures [facility] Referred To Contact [facility] Diagnoses Elevated liver enzymes Procedures US ABD RT UPPER QUADRANT US ABDOMINAL REAL TIME W/IMAGE LIMITED Nuvia Grissom APRN.CNP [address] [id number] [place] [address] Referral ID Status Reason Start Date Expiration Date V isits Requested Visits Authorized [id number] Closed Auto-Generate d Referral 01/20/2022 02/19/2023 1 1 [facility] for referral (narrative)* Diagnostic Procedure Only (Routine) - Closed Specialty Diagnoses / Procedures Referred By Contac t Referred To Contact [facility] Diagnoses Groin pain, right Ecchymosis Procedures US PELVIS LTD US PELVIC NONOBSTETRIC IMAGE DCMTN LIMITED/F/U Eugenio Hernandez MD [facility] [place] [address] Us Imaging [facility] Referral ID Status Reason Start Date Expiration Date V isits Requested Visits Authorized [id number] Closed Auto-Generate d Referral 02/20/2022 03/22/2023 1 1 [facility] for referral (narrative)* Diagnostic Procedure Only (Routine) - Pending Review Specialty Diagnoses / Procedures [facility] Referred To Contact [facility] Diagnoses Cardiac amyloidosis (HCC) Procedures NM SPECT/CT CARDIAC AMYLOID RP LOCLZJ KAY SPECT W/CT 1 AREA 1 DAY IMAGING Evi Zamora MD [address] [place] [id number] [facility] [address] [place] [address] Referral ID Status Reason Start Date Expiration Date Visits Requested Visits Authorized [id number] Pending Review Auto-Generat ed Referral 3 03/10/2024 [address] [facility] for referral (narrative)* Outpatient Procedure (Routine) - Authorized Specialty Diagnoses / Procedures [facility] Diagnoses Examination of participant in clinical trial Chronic systolic heart failure (HCC) Procedures ECG COMPLETE ECG ROUTINE ECG W/LEAST 12 LDS W/I&R Terrance Pritchard MD [address] [place] [address] [facility] [address] [place] [address] Referral ID Status Reason Start Date Expiration Date Visits Requested Visits Authorized [id number] Authorized Auto-Generat ed Referral 3 03/13/2024 1 1 [facility] Summary Purpose Family History No Family History Records FoundNo Family History Records Found Advance Directives No Advanced Directives Records FoundDocuments on File Type Date Recorded 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 Advance Directive(s) Advance Directive(s) 11/11/2019 1:39 PM Advance Directive(s) 04/30/2019 9:14 AM Advance Directive(s) 03/31/2019 12:07 PM Advance Directive(s) 06/10/2015 10:42 AM Advance Directive(s) 06/07/2015 12:46 PM Documents on File Type Date Recorded 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 Advance Directive(s) Advance Directive(s) 11/11/2019 [...] Essential hypertension Procedures CONSULT TO NEUROLOGY OFFICE/OUTPATIENT [facility] MDM 60-74 MINUTES Genia Ruby MD [address] [place] [address] Referral ID Status Reason Start Date Expiration Date Visits Requested Visits Authorized [id number] Authorized PCP Requested Referral 06/22/2021 06/22/2022 1 1 Specialty Diagnoses / Procedures Referred By Temo amato Referred To Contact General Surgery Diagnoses Calculus of gallbladder without cholecystitis without obstruction Elevated liver enzymes Procedures CONSULT TO GENERAL SURGERY OFFICE/OUTPATIENT [facility] 60-74 MINUTES Brayan Ahn MD [address] [place] [address] Franklin Gaona MD [address] [place] [address] Referral ID Status Reason Start Date Expiration Date Visits Requested Visits Authorized [id number] Authorized PCP Requested Referral 01/31/2022 01/31/2023 1 1 Specialty Diagnoses / Procedures Referred By Contac t Referred To Contact General Surgery Diagnoses Calculus of gallbladder without cholecystitis without obstruction Elevated liver enzymes Procedures CONSULT TO GENERAL SURGERY OFFICE/OUTPATIENT [facility] 60-74 MINUTES Nuvia Grissom APRN.MATH AND SCIENCE INSTRUCTOR [address] [place] [address] Referral ID Status Reason Start Date Expiration Date V isits Requested Visits Authorized [id number] Closed PCP Requested Referral 01/30/2022 01/30/2023 1 1 Specialty Diagnoses / Procedures Referred By Contac t Referred To Contact Vascular Medicine Diagnoses History of pulmonary embolism Procedures CONSULT TO VASCULAR MEDICINE OFFICE/OUTPATIENT [facility] 60-74 MINUTES Omer Narvaez DO [address] [place] [address] Referral ID Status Reason Start Date Expiration Date Visits Requested Visits Authorized [id number] Authorized PCP Requested Referral 02/06/2022 02/06/2023 1 1 Specialty Diagnoses / Procedures Referred By Contac t Referred To Contact Diagnoses Cholelithiasis with choledocholithiasis Pre-op examination Procedures IN PERSON CONSULT TO PACC Aneesh Kaplan MD [address] [place] [address] Referral ID Status Reason Start Date Expiration Date Visits Requested Visits Authorized [id number] Ref Not Required PCP Requested Referral 05/22/2022 1 1 Specialty Diagnoses / Procedures Referred By Contac t Referred To Contact CT IMAGING Diagnoses Infection in abdomen (HCC) Procedures CT ABD/PEL W IVCON CT ABD & PELVIS W/CONTRAST Plescadi, SARA Martin [address] [place] [address] Ct Imaging Referral ID Status Reason Start Date Expiration Date V isits Requested Visits Authorized [id number] Closed Auto-Generate d Referral 04/07/2022 05/07/2023 1 1 Specialty Diagnoses / Procedures Referred By Contac t Referred To Contact CT IMAGING Diagnoses Acute abdomen Procedures CT ABD/PEL WO IVCON CT ABD & PELVIS W/O CONTRAST Mario Fermin PA-C [address] [place] [address] Ct Imaging Referral ID Status Reason Start Date Expiration Date V isits Requested Visits Authorized [id number] Closed Auto-Generate d Referral 04/07/2022 05/07/2023 1 1 Specialty Diagnoses / Procedures Referred By Contac t Referred To Contact Diagnoses Post-phlebitic syndrome [place] [address] Referral ID Status Reason Start Date Expiration Date Visits Re quested Visits Authorized [id number] Closed 1 1 Specialty Diagnoses / Procedures Referred By Contac t Referred To Contact Diagnoses Skin lesion Procedures CONSULT TO DERMATOLOGY Nuvia Grissom APRN.[facility] [address] [place] [address] Referral ID Status Reason Start Date Expiration Date V isits Requested Visits Authorized [id number] Closed PCP Requested Referral 11/22/2022 11/22/2023 1 1 Specialty Diagnoses / Procedures Referred By Contac t Referred To Contact Procedures CARDIOVASCULAR MEDICINE OP FOLLOW UP APPT ORDER Shira Seymour MD [address] [place] [address] Referral ID Status Reason Start Date Expiration Date Visits Requested Visits Authorized [id number] Ref Not Required PCP Requested Referral 01/29/2024 1 1 Specialty Diagnoses / Procedures Referred By Contac t Referred To Contact Neurology Diagnoses Neuropathy Procedures CONSULT TO NEUROLOGY OFFICE/OUTPATIENT [facility] 60-74 MINUTES Shira Seymour MD [address] [place] [address] Gold Serra MD [address] [place] [address] Referral ID Status Reason Start Date Expiration Date Visits Requested Visits Authorized [id number] Authorized PCP Requested Referral 3 01/29/2024 1 1 Specialty Diagnoses / Procedures Referred By Contanjana t Referred To Contact CT IMAGING Diagnoses Acute abdomen Procedures CT ABD/PEL WO IVCON CT ABD & PELVIS W/O CONTRAST Mario Fermin PA-C [address] [place] [address] Ct Imaging [place] [address] Health Concerns Infection Onset Date Last Indicated Resolved Time COVID-19 Rule-Out 03/29/2022 03/29/2022 03/29/2022 5:11 PM EST Additional Source Comments INFORMATION SOURCE (unrecogn ized section and content) DATE CREATED AUTHOR AUTHOR'S ORGANIZ ATION 04/26/2023 [facility] Source Comments (unrecognize d section and content) In the event this informatio n is protected by the Federal Confidentiality of Alcohol and Drug Abuse Patient Records regulations: The Federal rules restrict any use of the information to criminally investigate or prosecute any alcohol or drug abuse patient.[facility] the event this information is protected by the Federal Confidentiality of Alcohol and Drug Abuse Patient Records regulations: The Federal rules restrict any use of the information to criminally investigate or prosecute any alcohol or drug abuse patient.[facility] the event this information is protected by the Federal Confidentiality of Alcohol and Drug Abuse Patient Records regulations: The Federal rules restrict any use of the information to criminally investigate or prosecute any alcohol or drug abuse patient.[facility] the event this information is protected by the Federal Confidentiality of Alcohol and Drug Abuse Patient Records regulations: The Federal rules restrict any use of the information to criminally investigate or prosecute any alcohol or drug abuse patient.[facility] the event this information is protected by the Federal Confidentiality of Alcohol and Drug Abuse Patient Records regulations: The Federal rules restrict any use of the information to criminally investigate or prosecute any alcohol or drug abuse patient.[facility] the event this information is protected by the Federal Confidentiality of Alcohol and Drug Abuse Patient Records regulations: The Federal rules restrict any use of the information to criminally investigate or prosecute any alcohol or drug abuse patient.[facility] the event this information is protected by the Federal Confidentiality of Alcohol and Drug Abuse Patient Records regulations: The Federal rules restrict any use of the information to criminally investigate or prosecute any alcohol or drug abuse patient.[facility] the event this information is protected by the Federal Confidentiality of Alcohol and Drug Abuse Patient Records regulations: The Federal rules restrict any use of the information to criminally investigate or prosecute any alcohol or drug abuse patient.[facility] the event this information is protected by the Federal Confidentiality of Alcohol and Drug Abuse Patient Records regulations: The Federal rules restrict any use of the information to criminally investigate or prosecute any alcohol or drug abuse patient.[facility] the event this information is protected by the Federal Confidentiality of Alcohol and Drug Abuse Patient Records regulations: The Federal rules restrict any use of the information to criminally investigate or prosecute any alcohol or drug abuse patient.[facility] the event this information is protected by the Federal Confidentiality of Alcohol and Drug Abuse Patient Records regulations: The Federal rules restrict any use of the information to criminally investigate or prosecute any alcohol or drug abuse patient.[facility] the event this information is protected by the Federal Confidentiality of Alcohol and Drug Abuse Patient Records regulations: The Federal rules restrict any use of the information to criminally investigate or prosecute any alcohol or drug abuse patient.[facility] the event this information is protected by the Federal Confidentiality of Alcohol and Drug Abuse Patient Records regulations: The Federal rules restrict any use of the information to criminally investigate or prosecute any alcohol or drug abuse patient.[facility] the event this information is protected by the Federal Confidentiality of Alcohol and Drug Abuse Patient Records regulations: The Federal rules restrict any use of the information to criminally investigate or prosecute any alcohol or drug abuse patient.[facility] the event this information is protected by the Federal Confidentiality of Alcohol and Drug Abuse Patient Records regulations: The Federal rules restrict any use of the information to criminally investigate or prosecute any alcohol or drug abuse patient.[facility] the event this information is protected by the Federal Confidentiality of Alcohol and Drug Abuse Patient Records regulations: The Federal rules restrict any use of the information to criminally investigate or prosecute any alcohol or drug abuse patient.[facility] the event this information is protected by the Federal Confidentiality of Alcohol and Drug Abuse Patient Records regulations: The Federal rules restrict any use of the information to criminally investigate or prosecute any alcohol or drug abuse patient.[facility] the event this information is protected by the Federal Confidentiality of Alcohol and Drug Abuse Patient Records regulations: The Federal rules restrict any use of the information to criminally investigate or prosecute any alcohol or drug abuse patient.[facility] the event this information is protected by the Federal Confidentiality of Alcohol and Drug Abuse Patient Records regulations: The Federal rules restrict any use of the information to criminally investigate or prosecute any alcohol or drug abuse patient.[facility]In the event this information is protected by the Federal Confidentiality of Alcohol and Drug Abuse Patient Records regulations: The Federal rules restrict any use of the information to criminally investigate or prosecute any alcohol or drug abuse patient.[facility] HospitalIn the event this information is protected by the Federal Confidentiality of Alcohol and Drug Abuse Patient Records regulations: The Federal rules restrict any use of the information to criminally investigate or prosecute any alcohol or drug abuse patient.[facility]In the event this information is protected by the Federal Confidentiality of Alcohol and Drug Abuse Patient Records regulations: The Federal rules restrict any use of the information to criminally investigate or prosecute any alcohol or drug abuse patient.[facility] HospitalIn the event this information is protected by the Federal Confidentiality of Alcohol and Drug Abuse Patient Records regulations: The Federal rules restrict any use of the information to criminally investigate or prosecute any alcohol or drug abuse patient.[facility] HospitalIn the event this information is protected by the Federal Confidentiality of Alcohol and Drug Abuse Patient Records regulations: The Federal rules restrict any use of the information to criminally investigate or prosecute any alcohol or drug abuse patient.[facility] HospitalIn the event this information is protected by the Federal Confidentiality of Alcohol and Drug Abuse Patient Records regulations: The Federal rules restrict any use of the information to criminally investigate or prosecute any alcohol or drug abuse patient.[facility] HospitalIn the event this information is protected by the Federal Confidentiality of Alcohol and Drug Abuse Patient Records regulations: The Federal rules restrict any use of the information to criminally investigate or prosecute any alcohol or drug abuse patient.[facility] HospitalIn the event this information is protected by the Federal Confidentiality of Alcohol and Drug Abuse Patient Records regulations: The Federal rules restrict any use of the information to criminally investigate or prosecute any alcohol or drug abuse patient.[facility] HospitalIn the event this information is protected by the Federal Confidentiality of Alcohol and Drug Abuse Patient Records regulations: The Federal rules restrict any use of the information to criminally investigate or prosecute any alcohol or drug abuse patient.[facility] HospitalIn the event this information is protected by the Federal Confidentiality of Alcohol and Drug Abuse Patient Records regulations: The Federal rules restrict any use of the information to criminally investigate or prosecute any alcohol or drug abuse patient.[facility] HospitalIn the event this information is protected by the Federal Confidentiality of Alcohol and Drug Abuse Patient Records regulations: The Federal rules restrict any use of the information to criminally investigate or prosecute any alcohol or drug abuse patient.[facility] HospitalIn the event this information is protected by the Federal Confidentiality of Alcohol and Drug Abuse Patient Records regulations: The Federal rules restrict any use of the information to criminally investigate or prosecute any alcohol or drug abuse patient.[facility] HospitalIn the event this information is protected by the Federal Confidentiality of Alcohol and Drug Abuse Patient Records regulations: The Federal rules restrict any use of the information to criminally investigate or prosecute any alcohol or drug abuse patient.[facility] HospitalIn the event this information is protected by the Federal Confidentiality of Alcohol and Drug Abuse Patient Records regulations: The Federal rules restrict any use of the information to criminally investigate or prosecute any alcohol or drug abuse patient.[facility] HospitalIn the event this information is protected by the Federal Confidentiality of Alcohol and Drug Abuse Patient Records regulations: The Federal rules restrict any use of the information to criminally investigate or prosecute any alcohol or drug abuse patient.[facility] HospitalIn the event this information is protected by the Federal Confidentiality of Alcohol and Drug Abuse Patient Records regulations: The Federal rules restrict any use of the information to criminally investigate or prosecute any alcohol or drug abuse patient.[facility] HospitalIn the event this information is protected by the Federal Confidentiality of Alcohol and Drug Abuse Patient Records regulations: The Federal rules restrict any use of the information to criminally investigate or prosecute any alcohol or drug abuse patient.[facility] HospitalIn the event this information is protected by the Federal Confidentiality of Alcohol and Drug Abuse Patient Records regulations: The Federal rules restrict any use of the information to criminally investigate or prosecute any alcohol or drug abuse patient.[facility] HospitalIn the event this information is protected by the Federal Confidentiality of Alcohol and Drug Abuse Patient Records regulations: The Federal rules restrict any use of the information to criminally investigate or prosecute any alcohol or drug abuse patient.[facility] HospitalIn the event this information is protected by the Federal Confidentiality of Alcohol and Drug Abuse Patient Records regulations: The Federal rules restrict any use of the information to criminally investigate or prosecute any alcohol or drug abuse patient.[facility] HospitalIn the event this information is protected by the Federal Confidentiality of Alcohol and Drug Abuse Patient Records regulations: The Federal rules restrict any use of the information to criminally investigate or prosecute any alcohol or drug abuse patient.[facility] HospitalIn the event this information is protected by the Federal Confidentiality of Alcohol and Drug Abuse Patient Records regulations: The Federal rules restrict any use of the information to criminally investigate or prosecute any alcohol or drug abuse patient.[facility] HospitalIn the event this information is protected by the Federal Confidentiality of Alcohol and Drug Abuse Patient Records regulations: The Federal rules restrict any use of the information to criminally investigate or prosecute any alcohol or drug abuse patient.[facility] HospitalIn the event this information is protected by the Federal Confidentiality of Alcohol and Drug Abuse Patient Records regulations: The Federal rules restrict any use of the information to criminally investigate or prosecute any alcohol or drug abuse patient.[facility] HospitalIn the event this information is protected by the Federal Confidentiality of Alcohol and Drug Abuse Patient Records regulations: The Federal rules restrict any use of the information to criminally investigate or prosecute any alcohol or drug abuse patient.[facility] HospitalIn the event this information is protected by the Federal Confidentiality of Alcohol and Drug Abuse Patient Records regulations: The Federal rules restrict any use of the information to criminally investigate or prosecute any alcohol or drug abuse patient.[facility] HospitalIn the event this information is protected by the Federal Confidentiality of Alcohol and Drug Abuse Patient Records regulations: The Federal rules restrict any use of the information to criminally investigate or prosecute any alcohol or drug abuse patient.[facility] HospitalIn the event this information is protected by the Federal Confidentiality of Alcohol and Drug Abuse Patient Records regulations: The Federal rules restrict any use of the information to criminally investigate or prosecute any alcohol or drug abuse patient.[facility] HospitalIn the event this information is protected by the Federal Confidentiality of Alcohol and Drug Abuse Patient Records regulations: The Federal rules restrict any use of the information to criminally investigate or prosecute any alcohol or drug abuse patient.[facility] HospitalIn the event this information is protected by the Federal Confidentiality of Alcohol and Drug Abuse Patient Records regulations: The Federal rules restrict any use of the information to criminally investigate or prosecute any alcohol or drug abuse patient.[facility] HospitalIn the event this information is protected by the Federal Confidentiality of Alcohol and Drug Abuse Patient Records regulations: The Federal rules restrict any use of the information to criminally investigate or prosecute any alcohol or drug abuse patient.[facility] HospitalIn the event this information is protected by the Federal Confidentiality of Alcohol and Drug Abuse Patient Records regulations: The Federal rules restrict any use of the information to criminally investigate or prosecute any alcohol or drug abuse patient.[facility] HospitalIn the event this information is protected by the Federal Confidentiality of Alcohol and Drug Abuse Patient Records regulations: The Federal rules restrict any use of the information to criminally investigate or prosecute any alcohol or drug abuse patient.[facility] HospitalIn the event this information is protected by the Federal Confidentiality of Alcohol and Drug Abuse Patient Records regulations: The Federal rules restrict any use of the information to criminally investigate or prosecute any alcohol or drug abuse patient.[facility] HospitalIn the event this information is protected by the Federal Confidentiality of Alcohol and Drug Abuse Patient Records regulations: The Federal rules restrict any use of the information to criminally investigate or prosecute any alcohol or drug abuse patient.[facility] HospitalIn the event this information is protected by the Federal Confidentiality of Alcohol and Drug Abuse Patient Records regulations: The Federal rules restrict any use of the information to criminally investigate or prosecute any alcohol or drug abuse patient.[facility] HospitalIn the event this information is protected by the Federal Confidentiality of Alcohol and Drug Abuse Patient Records regulations: The Federal rules restrict any use of the information to criminally investigate or prosecute any alcohol or drug abuse patient.[facility] HospitalIn the event this information is protected by the Federal Confidentiality of Alcohol and Drug Abuse Patient Records regulations: The Federal rules restrict any use of the information to criminally investigate or prosecute any alcohol or drug abuse patient.[facility] HospitalIn the event this information is protected by the Federal Confidentiality of Alcohol and Drug Abuse Patient Records regulations: The Federal rules restrict any use of the information to criminally investigate or prosecute any alcohol or drug abuse patient.[facility] HospitalIn the event this information is protected by the Federal Confidentiality of Alcohol and Drug Abuse Patient Records regulations: The Federal rules restrict any use of the information to criminally investigate or prosecute any alcohol or drug abuse patient.[facility] HospitalIn the event this information is protected by the Federal Confidentiality of Alcohol and Drug Abuse Patient Records regulations: The Federal rules restrict any use of the information to criminally investigate or prosecute any alcohol or drug abuse patient.[facility] HospitalIn the event this information is protected by the Federal Confidentiality of Alcohol and Drug Abuse Patient Records regulations: The Federal rules restrict any use of the information to criminally investigate or prosecute any alcohol or drug abuse patient.[facility] HospitalIn the event this information is protected by the Federal Confidentiality of Alcohol and Drug Abuse Patient Records regulations: The Federal rules restrict any use of the information to criminally investigate or prosecute any alcohol or drug abuse patient.[facility] HospitalIn the event this information is protected by the Federal Confidentiality of Alcohol and Drug Abuse Patient Records regulations: The Federal rules restrict any use of the information to criminally investigate or prosecute any alcohol or drug abuse patient.[facility] HospitalIn the event this information is protected by the Federal Confidentiality of Alcohol and Drug Abuse Patient Records regulations: The Federal rules restrict any use of the information to criminally investigate or prosecute any alcohol or drug abuse patient.[facility] HospitalIn the event this information is protected by the Federal Confidentiality of Alcohol and Drug Abuse Patient Records regulations: The Federal rules restrict any use of the information to criminally investigate or prosecute any alcohol or drug abuse patient.[facility] HospitalIn the event this information is protected by the Federal Confidentiality of Alcohol and Drug Abuse Patient Records regulations: The Federal rules restrict any use of the information to criminally investigate or prosecute any alcohol or drug abuse patient.[facility] HospitalIn the event this information is protected by the Federal Confidentiality of Alcohol and Drug Abuse Patient Records regulations: The Federal rules restrict any use of the information to criminally investigate or prosecute any alcohol or drug abuse patient.[facility] HospitalIn the event this information is protected by the Federal Confidentiality of Alcohol and Drug Abuse Patient Records regulations: The Federal rules restrict any use of the information to criminally investigate or prosecute any alcohol or drug abuse patient.[facility] HospitalIn the event this information is protected by the Federal Confidentiality of Alcohol and Drug Abuse Patient Records regulations: The Federal rules restrict any use of the information to criminally investigate or prosecute any alcohol or drug abuse patient.[facility] HospitalIn the event this information is protected by the Federal Confidentiality of Alcohol and Drug Abuse Patient Records regulations: The Federal rules restrict any use of the information to criminally investigate or prosecute any alcohol or drug abuse patient.[facility] HospitalIn the event this information is protected by the Federal Confidentiality of Alcohol and Drug Abuse Patient Records regulations: The Federal rules restrict any use of the information to criminally investigate or prosecute any alcohol or drug abuse patient.[facility] HospitalIn the event this information is protected by the Federal Confidentiality of Alcohol and Drug Abuse Patient Records regulations: The Federal rules restrict any use of the information to criminally investigate or prosecute any alcohol or drug abuse patient.[facility] HospitalIn the event this information is protected by the Federal Confidentiality of Alcohol and Drug Abuse Patient Records regulations: The Federal rules restrict any use of the information to criminally investigate or prosecute any alcohol or drug abuse patient.[facility] HospitalIn the event this information is protected by the Federal Confidentiality of Alcohol and Drug Abuse Patient Records regulations: The Federal rules restrict any use of the information to criminally investigate or prosecute any alcohol or drug abuse patient.[facility] HospitalIn the event this information is protected by the Federal Confidentiality of Alcohol and Drug Abuse Patient Records regulations: The Federal rules restrict any use of the information to criminally investigate or prosecute any alcohol or drug abuse patient.[facility] HospitalIn the event this information is protected by the Federal Confidentiality of Alcohol and Drug Abuse Patient Records regulations: The Federal rules restrict any use of the information to criminally investigate or prosecute any alcohol or drug abuse patient.[facility] HospitalIn the event this information is protected by the Federal Confidentiality of Alcohol and Drug Abuse Patient Records regulations: The Federal rules restrict any use of the information to criminally investigate or prosecute any alcohol or drug abuse patient.[facility]In the event this information is protected by the Federal Confidentiality of Alcohol and Drug Abuse Patient Records regulations: The Federal rules restrict any use of the information to criminally investigate or prosecute any alcohol or drug abuse patient.[facility] HospitalIn the event this information is protected by the Federal Confidentiality of Alcohol and Drug Abuse Patient Records regulations: The Federal rules restrict any use of the information to criminally investigate or prosecute any alcohol or drug abuse patient.[facility] HospitalIn the event this information is protected by the Federal Confidentiality of Alcohol and Drug Abuse Patient Records regulations: The Federal rules restrict any use of the information to criminally investigate or prosecute any alcohol or drug abuse patient.[facility] HospitalIn the event this information is protected by the Federal Confidentiality of Alcohol and Drug Abuse Patient Records regulations: The Federal rules restrict any use of the information to criminally investigate or prosecute any alcohol or drug abuse patient.[facility] HospitalIn the event this information is protected by the Federal Confidentiality of Alcohol and Drug Abuse Patient Records regulations: The Federal rules restrict any use of the information to criminally investigate or prosecute any alcohol or drug abuse patient.[facility]In the event this information is protected by the Federal Confidentiality of Alcohol and Drug Abuse Patient Records regulations: The Federal rules restrict any use of the information to criminally investigate or prosecute any alcohol or drug abuse patient.[facility] HospitalIn the event this information is protected by the Federal Confidentiality of Alcohol and Drug Abuse Patient Records regulations: The Federal rules restrict any use of the information to criminally investigate or prosecute any alcohol or drug abuse patient.[facility] HospitalIn the event this information is protected by the Federal Confidentiality of Alcohol and Drug Abuse Patient Records regulations: The Federal rules restrict any use of the information to criminally investigate or prosecute any alcohol or drug abuse patient.[facility] HospitalIn the event this information is protected by the Federal Confidentiality of Alcohol and Drug Abuse Patient Records regulations: The Federal rules restrict any use of the information to criminally investigate or prosecute any alcohol or drug abuse patient.[facility]In the event this information is protected by the Federal Confidentiality of Alcohol and Drug Abuse Patient Records regulations: The Federal rules restrict any use of the information to criminally investigate or prosecute any alcohol or drug abuse patient.[facility] HospitalIn the event this information is protected by the Federal Confidentiality of Alcohol and Drug Abuse Patient Records regulations: The Federal rules restrict any use of the information to criminally investigate or prosecute any alcohol or drug abuse patient.[facility]In the event this information is protected by the Federal Confidentiality of Alcohol and Drug Abuse Patient Records regulations: The Federal rules restrict any use of the information to criminally investigate or prosecute any alcohol or drug abuse patient.[facility] HospitalIn the event this information is protected by the Federal Confidentiality of Alcohol and Drug Abuse Patient Records regulations: The Federal rules restrict any use of the information to criminally investigate or prosecute any alcohol or drug abuse patient.[facility]In the event this information is protected by the Federal Confidentiality of Alcohol and Drug Abuse Patient Records regulations: The Federal rules restrict any use of the information to criminally investigate or prosecute any alcohol or drug abuse patient.[facility]In the event this information is protected by the Federal Confidentiality of Alcohol and Drug Abuse Patient Records regulations: The Federal rules restrict any use of the information to criminally investigate or prosecute any alcohol or drug abuse patient.[facility]In the event this information is protected by the Federal Confidentiality of Alcohol and Drug Abuse Patient Records regulations: The Federal rules restrict any use of the information to criminally investigate or prosecute any alcohol or drug abuse patient.[facility]In the event this information is protected by the Federal Confidentiality of Alcohol and Drug Abuse Patient Records regulations: The Federal rules restrict any use of the information to criminally investigate or prosecute any alcohol or drug abuse patient.[facility]In the event this information is protected by the Federal Confidentiality of Alcohol and Drug Abuse Patient Records regulations: The Federal rules restrict any use of the information to criminally investigate or prosecute any alcohol or drug abuse patient.[facility]In the event this information is protected by the Federal Confidentiality of Alcohol and Drug Abuse Patient Records regulations: The Federal rules restrict any use of the information to criminally investigate or prosecute any alcohol or drug abuse patient.[facility] HospitalIn the event this information is protected by the Federal Confidentiality of Alcohol and Drug Abuse Patient Records regulations: The Federal rules restrict any use of the information to criminally investigate or prosecute any alcohol or drug abuse patient.[facility]In the event this information is protected by the Federal Confidentiality of Alcohol and Drug Abuse Patient Records regulations: The Federal rules restrict any use of the information to criminally investigate or prosecute any alcohol or drug abuse patient.[facility]In the event this information is protected by the Federal Confidentiality of Alcohol and Drug Abuse Patient Records regulations: The Federal rules restrict any use of the information to criminally investigate or prosecute any alcohol or drug abuse patient.[facility]In the event this information is protected by the Federal Confidentiality of Alcohol and Drug Abuse Patient Records regulations: The Federal rules restrict any use of the information to criminally investigate or prosecute any alcohol or drug abuse patient.[facility] HospitalIn the event this information is protected by the Federal Confidentiality of Alcohol and Drug Abuse Patient Records regulations: The Federal rules restrict any use of the information to criminally investigate or prosecute any alcohol or drug abuse patient.[facility] HospitalIn the event this information is protected by the Federal Confidentiality of Alcohol and Drug Abuse Patient Records regulations: The Federal rules restrict any use of the information to criminally investigate or prosecute any alcohol or drug abuse patient.[facility]In the event this information is protected by the Federal Confidentiality of Alcohol and Drug Abuse Patient Records regulations: The Federal rules restrict any use of the information to criminally investigate or prosecute any alcohol or drug abuse patient.[facility] HospitalIn the event this information is protected by the Federal Confidentiality of Alcohol and Drug Abuse Patient Records regulations: The Federal rules restrict any use of the information to criminally investigate or prosecute any alcohol or drug abuse patient.[facility] HospitalIn the event this information is protected by the Federal Confidentiality of Alcohol and Drug Abuse Patient Records regulations: The Federal rules restrict any use of the information to criminally investigate or prosecute any alcohol or drug abuse patient.[facility] HospitalIn the event this information is protected by the Federal Confidentiality of Alcohol and Drug Abuse Patient Records regulations: The Federal rules restrict any use of the information to criminally investigate or prosecute any alcohol or drug abuse patient.[facility] HospitalIn the event this information is protected by the Federal Confidentiality of Alcohol and Drug Abuse Patient Records regulations: The Federal rules restrict any use of the information to criminally investigate or prosecute any alcohol or drug abuse patient.[facility] HospitalIn the event this information is protected by the Federal Confidentiality of Alcohol and Drug Abuse Patient Records regulations: The Federal rules restrict any use of the information to criminally investigate or prosecute any alcohol or drug abuse patient.[facility] HospitalIn the event this information is protected by the Federal Confidentiality of Alcohol and Drug Abuse Patient Records regulations: The Federal rules restrict any use of the information to criminally investigate or prosecute any alcohol or drug abuse patient.[facility] HospitalIn the event this information is protected by the Federal Confidentiality of Alcohol and Drug Abuse Patient Records regulations: The Federal rules restrict any use of the information to criminally investigate or prosecute any alcohol or drug abuse patient.[facility] HospitalIn the event this information is protected by the Federal Confidentiality of Alcohol and Drug Abuse Patient Records regulations: The Federal rules restrict any use of the information to criminally investigate or prosecute any alcohol or drug abuse patient.[facility] HospitalIn the event this information is protected by the Federal Confidentiality of Alcohol and Drug Abuse Patient Records regulations: The Federal rules restrict any use of the information to criminally investigate or prosecute any alcohol or drug abuse patient.[facility] HospitalIn the event this information is protected by the Federal Confidentiality of Alcohol and Drug Abuse Patient Records regulations: The Federal rules restrict any use of the information to criminally investigate or prosecute any alcohol or drug abuse patient.[facility] HospitalIn the event this information is protected by the Federal Confidentiality of Alcohol and Drug Abuse Patient Records regulations: The Federal rules restrict any use of the information to criminally investigate or prosecute any alcohol or drug abuse patient.[facility] Reason for Visit (unrecogniz ed section and content) Specialty Diagnoses / Procedures Referred By Temo t Referred To Contact CT IMAGING Diagnoses Infection in abdomen (HCC) Procedures CT ABD/PEL W IVCON CT ABD & PELVIS W/CONTRAST Plescadi, SARA Martin [address] [place] [address] [place] [address] Referral ID Status Reason Start Date Expiration Date V isits Requested Visits Authorized [id number] Closed Auto-Generate d Referral 04/07/2022 05/07/2023 1 [...] enzymes Procedures CONSULT TO GENERAL SURGERY OFFICE/OUTPATIENT [facility] 60-74 MINUTES Older, QUINTEN Pedersen.MATH AND SCIENCE INSTRUCTOR [address] [place] [address] Referral ID Status Reason Start Date Expiration Date V isits Requested Visits Authorized [id number] Closed PCP Requested Referral 01/30/2022 01/30/2023 1 1 Reason Comments Results Reason Comments Established Patient Reason Comments Prescription for med assist reenrollment Reason Onset Date Comments Community Monioring Outreach 02/08/2022 Reason Comments Rx Refills Tafamidis Reason Comments Abdominal Pain Reason Comments Abdominal Pain Reason Comments 03/29/2022 Reason Comments Medication Problem PAP forms faxed to [facility] with prescription. Reason Onset Date Comments Community Monitoring Outreach 03/14/2022 Reason Comments Results follow-up call Reason Comments Patient Update Reason Comments Right Lower Abdomen Pain Reason Comments Forms VyndaLink Reason Onset Date Comments Transition Of Care 04/04/2022 [facility], INITIAL OUTREACH Reason Comments [...] ABDOMINAL REAL TIME W/IMAGE LIMITED Nuvia Grissom APRN.MATH AND SCIENCE INSTRUCTOR [address] [place] [address] [place] [address] Referral ID Status Reason Start Date Expiration Date V isits Requested Visits Authorized [id number] Closed Auto-Generate d Referral 01/20/2022 02/19/2023 1 1 Specialty Diagnoses / Procedures Referred By Contac t Referred To Contact US IMAGING Diagnoses Groin pain, right Ecchymosis Procedures US PELVIS LTD US PELVIC NONOBSTETRIC IMAGE DCMTN LIMITED/F/U Eugenio Hernandez MD [address] [place] [address] [place] [address] Referral ID Status Reason Start Date Expiration Date V isits Requested Visits Authorized [id number] Closed Auto-Generate d Referral 02/20/2022 03/22/2023 1 1 Reason Comments patient outreach VyndaLink Reason Comments Rx Refills Care Teams (unrecognized sec tion and content) Services Delivery Driver Relationship Specialty Start Date End Date Gab Pisano MD [address] [place] [address] PCP - General Internal Medicine 10/26/15 Brayan Pringle MD Referring Cardiology 10/28/19 Fredrick Walker, test data developerRoad Maker Internal Medicine 05/25/20 Jose Leal MD [address] [place] [address] Primary Staff Physician Cardiology 09/14/20 Services Delivery Driver Relationship Specialty Start Date End Date Gab Pisano MD [address] [facility] [place] [address] PCP - General Internal Medicine 10/26/15 Brayan Pringle MD Referring Cardiology 10/28/19 Fredrick Walker, test data developerRoad Maker Internal Medicine 05/25/20 Jose Leal MD [address] [facility] [place] [address] Primary Staff Physician Cardiology 09/14/20 Services Delivery Driver Relationship Specialty Start Date End Date Gab Pisano MD [address] [place] [address] PCP - General Internal Medicine 10/26/15 Brayan Pringle MD Referring Cardiology 10/28/[address] Maker Internal Medicine 05/25/20 Jose Leal MD [address] [facility] [place] [address] Primary Staff Physician Cardiology 09/14/20 Services Delivery Driver Relationship Specialty Start Date End Date Gab Pisano MD [address] [facility] [address] PCP - General Internal Medicine 10/26/15 Brayan Pringle MD Referring Cardiology 10/28/19 Fredrick Walker, test data developerRoad Maker Internal Medicine 05/25/20 Jose Leal MD [address] [place] [address] Primary Staff Physician Cardiology 09/14/20 Services Delivery Driver Relationship Specialty Start Date End Date Gab Pisano MD [address] [place] [address] PCP - General Internal Medicine 10/26/15 Brayan Pringle MD Referring Cardiology 10/28/19 Fredrick Walker, test data developerRoad Maker Internal Medicine 05/25/20 Jose Leal MD [address] [place] [address] Primary Staff Physician Cardiology 09/14/20 Services Delivery Driver Relationship Specialty Start Date End Date Gab Pisano MD [address] [place] [address] PCP - General Internal Medicine 10/26/15 Brayan Pringle MD Referring Cardiology 10/28/19 Fredrick Walker, test data developerRoad Maker Internal Medicine 05/25/20 Jose Leal MD [address] [place] [address] Primary Staff Physician Cardiology 09/14/20 Services Delivery Driver Relationship Specialty Start Date End Date Gab Pisano MD [address] [place] [address] PCP - General Internal Medicine 10/26/15 Brayan Pringle MD Referring Cardiology 10/28/19 Fredrick Walker, test data developerRoad Maker Internal Medicine 05/25/20 Jose Leal MD [address] [place] [address] Primary Staff Physician Cardiology 09/14/20 Services Delivery Driver Relationship Specialty Start Date End Date Gab Pisano MD [address] [facility] [place] [address] PCP - General Internal Medicine 10/26/15 Brayan Pringle MD Referring Cardiology 10/28/19 Fredrick Walker, test data developerRoad Maker Internal Medicine 05/25/20 Jose Leal MD [address] [place] [address] Primary Staff Physician Cardiology 09/14/20 Services Delivery Driver Relationship Specialty Start Date End Date Gab Pisano MD [address] [place] [address] PCP - General Internal Medicine 10/26/15 Brayan Pringle MD Referring Cardiology 10/28/[address] Maker Internal Medicine 05/25/20 Jose Leal MD [address] [place] [address] Primary Staff Physician Cardiology 09/14/20 Services Delivery Driver Relationship Specialty Start Date End Date Gab Pisano MD [address] [place] [address] PCP - General Internal Medicine 10/26/15 Brayan Pringle MD Referring Cardiology 10/28/19 Fredrick Walker, test data developerRoad Maker Internal Medicine 05/25/20 Jose Leal MD [address] [place] [address] Primary Staff Physician Cardiology 09/14/20 Services Delivery Driver Relationship Specialty Start Date End Date Gab Pisano MD [address] [place] [address] PCP - General Internal Medicine 10/26/15 Brayan Pringle MD Referring Cardiology 10/28/19 Fredrick Walker, test data developerRoad Maker Internal Medicine 05/25/20 Rito Valera MD [address] [address] Primary Staff Physician Cardiology 09/15/21 Services Delivery Driver Relationship Specialty Start Date End Date Gab Pisano MD [address] [place] [address] PCP - General Internal Medicine 10/26/15 Brayan Pringle MD Referring Cardiology 10/28/19 Fredrick Walker, test data developerRoad Maker Internal Medicine 05/25/20 Rito Valera MD [address] [facility] [address] [address] Primary Staff Physician Cardiology 09/15/21 Services Delivery Driver Relationship Specialty Start Date End Date Gab Pisano MD [address] [place] [address] PCP - General Internal Medicine 10/26/15 Brayan Pringle MD Referring Cardiology 10/28/19 Fredrick Walker, test data developerRoad Maker Internal Medicine 05/25/20 Rito Valera MD [address] [address] Primary Staff Physician Cardiology 09/15/21 Services Delivery Driver Relationship Specialty Start Date End Date Gab Pisano MD [address] [place] [address] PCP - General Internal Medicine 10/26/15 Brayan Pringle MD Referring Cardiology 10/28/19 Fredrick Walker, test data developerRoad Maker Internal Medicine 05/25/20 Rito Valera MD [address] [address] Primary Staff Physician Cardiology 09/15/21 Services Delivery Driver Relationship Specialty Start Date End Date Gab Pisano MD [address] [place] [address] PCP - General Internal Medicine 10/26/15 Brayan Pringle MD Referring Cardiology 10/28/19 Fredrick Walker, test data developerRoad Maker Internal Medicine 05/25/20 Rito Valera MD [address] [address] Primary Staff Physician Cardiology 09/15/21 Services Delivery Driver Relationship Specialty Start Date End Date Gab Pisano MD [address] [place] [address] PCP - General Internal Medicine 10/26/15 Brayan Pringle MD Referring Cardiology 10/28/19 Fredrick Walker, test data developerRoad Maker Internal Medicine 05/25/20 Rito Valera MD [address] [address] Primary Staff Physician Cardiology 09/15/21 Services Delivery Driver Relationship Specialty Start Date End Date Gab Pisano MD [address] [place] [address] PCP - General Internal Medicine 10/26/15 Brayan Pringle MD Referring Cardiology 10/28/19 Fredrick Walker, test data developerRoad Maker Internal Medicine 05/25/20 Rito Valera MD [address] [address] Primary Staff Physician Cardiology 09/15/21 Services Delivery Driver Relationship Specialty Start Date End Date Gab Pisano MD [address] [place] [address] PCP - General Internal Medicine 10/26/15 Brayan Pringle MD Referring Cardiology 10/28/19 Fredrick Walker, test data developerRoad Maker Internal Medicine 05/25/20 Rito Valera MD [address] [address] Primary Staff Physician Cardiology 09/15/21 Services Delivery Driver Relationship Specialty Start Date End Date Gab Pisano MD [address] [place] [address] PCP - General Internal Medicine 10/26/15 Brayan Pringle MD Referring Cardiology 10/28/19 Fredrick Walker, test data developerRoad Maker Internal Medicine 05/25/20 Rito Valera MD [address] [address] Primary Staff Physician Cardiology 09/15/21 Services Delivery Driver Relationship Specialty Start Date End Date Gab Pisano MD [address] [place] [address] PCP - General Internal Medicine 10/26/15 Brayan Pringle MD Referring Cardiology 10/28/19 Fredrick Walker, test data developerRoad Maker Internal Medicine 05/25/20 Rito Valera MD [address] [address] Primary Staff Physician Cardiology 09/15/21 Services Delivery Driver Relationship Specialty Start Date End Date Gab Pisano MD [address] [place] [address] PCP - General Internal Medicine 10/26/15 Brayan Pringle MD Referring Cardiology 10/28/19 Fredrick Walker, test data developerRoad Maker Internal Medicine 05/25/20 Rito Valera MD [address] [address] Primary Staff Physician Cardiology 09/15/21 Services Delivery Driver Relationship Specialty Start Date End Date Gab Pisano MD [address] [place] [address] PCP - General Internal Medicine 10/26/15 Brayan Pringle MD Referring Cardiology 10/28/19 Fredrick Walker, test data developerRoad Maker Internal Medicine 05/25/20 Rito Valera MD [address] [address] Primary Staff Physician Cardiology 09/15/21 Services Delivery Driver Relationship Specialty Start Date End Date Gab Pisano MD [address] [place] [address] PCP - General Internal Medicine 10/26/15 Brayan Pringle MD Referring Cardiology 10/28/19 Fredrick Walker, test data developerRoad Maker Internal Medicine 05/25/20 Rito Valera MD [address] [address] Primary Staff Physician Cardiology 09/15/21 Services Delivery Driver Relationship Specialty Start Date End Date Gab Pisano MD [address] [place] [address] PCP - General Internal Medicine 10/26/15 Brayan Pringle MD Referring Cardiology 10/28/19 Fredrick Walker, test data developerRoad Maker Internal Medicine 05/25/20 Rito Valera MD [address] [address] Primary Staff Physician Cardiology 09/15/21 Services Delivery Driver Relationship Specialty Start Date End Date Gab Pisano MD [address] [place] [address] PCP - General Internal Medicine 10/26/15 Brayan Pringle MD Referring Cardiology 10/28/[address] Maker Internal Medicine 05/25/20 Rito Valera MD [address] [address] Primary Staff Physician Cardiology 09/15/21 Services Delivery Driver Relationship Specialty Start Date End Date Gab Pisano MD [address] [place] [address] PCP - General Internal Medicine 10/26/15 Brayan Pringle MD Referring Cardiology 10/28/19 Fredrick Walker, test data developerRoad Maker Internal Medicine 05/25/20 Rito Valera MD [address] [address] Primary Staff Physician Cardiology 09/15/21 Services Delivery Driver Relationship Specialty Start Date End Date Gab Pisano MD [address] [place] [address] PCP - General Internal Medicine 10/26/15 Brayan Pringle MD Referring Cardiology 10/28/19 Fredrick Walker, test data developerRoad Maker Internal Medicine 05/25/20 Rito Valera MD [address] [address] Primary Staff Physician Cardiology 09/15/21 Services Delivery Driver Relationship Specialty Start Date End Date Gab Pisano MD [address] [place] [address] PCP - General Internal Medicine 10/26/15 Brayan Pringle MD Referring Cardiology 10/28/19 Fredrick Walker, test data developerRoad Maker Internal Medicine 05/25/20 Rito Valera MD [address] [address] Primary Staff Physician Cardiology 09/15/21 Services Delivery Driver Relationship Specialty Start Date End Date Gab Pisano MD [address] [place] [address] PCP - General Internal Medicine 10/26/15 Brayan Pringle MD Referring Cardiology 10/28/19 Diane Alcala, test data developerRoad Maker Internal Medicine 05/25/20 Rito Valera MD [address] [address] Primary Staff Physician Cardiology 09/15/21 Services Delivery Driver Relationship Specialty Start Date End Date Gab Pisano MD [address] [place] [address] PCP - General Internal Medicine 10/26/15 Brayan Pringle MD Referring Cardiology 10/28/19 Diane Alcala, test data developerRoad Maker Internal Medicine 05/25/20 Rito Valera MD [address] [address] Primary Staff Physician Cardiology 09/15/21 Services Delivery Driver Relationship Specialty Start Date End Date Gab Pisano MD [address] [place] [address] PCP - General Internal Medicine 10/26/15 Brayan Pringle MD Referring Cardiology 10/28/19 Diane Alcala, test data developerRoad Maker Internal Medicine 05/25/20 Rito Valera MD [address] [address] Primary Staff Physician Cardiology 09/15/21 Services Delivery Driver Relationship Specialty Start Date End Date Gab Pisano MD [address] [place] [address] PCP - General Internal Medicine 10/26/15 Brayan Pringle MD [address] [place] [address] Referring Cardiology 10/28/19 Diane Alcala, test data developerRoad Maker Internal Medicine 05/25/20 Rito Valera MD [address] [address] Primary Staff Physician Cardiology 09/15/21 Services Delivery Driver Relationship Specialty Start Date End Date Gab Pisano MD [address] [facility] [place] [address] PCP - General Internal Medicine 10/26/15 Brayan Pringle MD [address] [facility] [place] [address] Referring Cardiology 10/28/19 Diane Alcala, test data developerRoad Maker Internal Medicine 05/25/20 Rito Valera MD [address] [address] Primary Staff Physician Cardiology 09/15/21 Services Delivery Driver Relationship Specialty Start Date End Date Gab Pisano MD [address] [place] [address] PCP - General Internal Medicine 10/26/15 Brayan Pringle MD [address] [facility] [place] [address] Referring Cardiology 10/28/[address] Maker Internal Medicine 05/25/20 Rito Valera MD [address] [address] Primary Staff Physician Cardiology 09/15/21 Services Delivery Driver Relationship Specialty Start Date End Date Gab Pisano MD [address] [facility] [place] [address] PCP - General Internal Medicine 10/26/15 Brayan Pringle MD [address] [place] [address] Referring Cardiology 10/28/[address] Maker Internal Medicine 05/25/20 Rito Valera MD [address] [address] Primary Staff Physician Cardiology 09/15/21 Services Delivery Driver Relationship Specialty Start Date End Date Gab Pisano MD [address] [facility] [place] [address] PCP - General Internal Medicine 10/26/15 Brayan Pringle MD [address] [place] [address] Referring Cardiology 10/28/19 Diane Alcala, test data developerRoad Maker Internal Medicine 05/25/20 Rito Valera MD [address] [address] Primary Staff Physician Cardiology 09/15/21 Services Delivery Driver Relationship Specialty Start Date End Date Gab Pisano MD [address] [place] [address] PCP - General Internal Medicine 10/26/15 Brayan Pringle MD [address] [facility] [place] [address] Referring Cardiology 10/28/19 Diane Alcala test data developerRoad Maker Internal Medicine 05/25/20 Rito Valera MD [address] [address] Primary Staff Physician Cardiology 09/15/21 Services Delivery Driver Relationship Specialty Start Date End Date Gab Pisano MD [address] [facility] [place] [address] PCP - General Internal Medicine 10/26/15 Brayan Pringle MD [address] [place] [address] Referring Cardiology 10/28/19 Alcala, Diane M, test data developerRoad Maker Internal Medicine 05/25/20 Rito Valera MD [address] [address] Primary Staff Physician Cardiology 09/15/21 Services Delivery Driver Relationship Specialty Start Date End Date Gab Pisano MD [address] [facility] [place] [address] PCP - General Internal Medicine 10/26/15 Brayan Pringle MD [address] [facility] [place] [address] Referring Cardiology 10/28/19 Diane Alcala, test data developerRoad Maker Internal Medicine 05/25/20 Rito Valera MD [address] [address] Primary Staff Physician Cardiology 09/15/21 Services Delivery Driver Relationship Specialty Start Date End Date Gab Pisano MD [address] [facility] [place] [address] PCP - General Internal Medicine 10/26/15 Brayan Pringle MD [address] [facility] [place] [address] Referring Cardiology 10/28/19 Diane Alcala, test data developerRoad Maker Internal Medicine 05/25/20 Rito Valera MD [address] [address] Primary Staff Physician Cardiology 09/15/21 Services Delivery Driver Relationship Specialty Start Date End Date Gab Pisano MD [address] [facility] [place] [address] PCP - General Internal Medicine 10/26/15 Brayan Pringle MD [address] [facility] [place] [address] Referring Cardiology 10/28/19 Diane Alcala, test data developerRoad Maker Internal Medicine 05/25/20 Rito Valera MD [address] [address] Primary Staff Physician Cardiology 09/15/21 Services Delivery Driver Relationship Specialty Start Date End Date Gab Pisano MD [address] [place] [address] PCP - General Internal Medicine 10/26/15 Brayan Pringle MD [address] [place] [address] Referring Cardiology 10/28/19 Diane Alcala, test data developerRoad Maker Internal Medicine 05/25/20 Rito Valera MD [address] [address] Primary Staff Physician Cardiology 09/15/21 Services Delivery Driver Relationship Specialty Start Date End Date Gab Pisano MD [address] [place] [address] PCP - General Internal Medicine 10/26/15 Brayan Pringle MD [address] [place] [address] Referring Cardiology 10/28/19 Diane Alcala, test data developerRoad Maker Internal Medicine 05/25/20 Rito Valera MD [address] [address] Primary Staff Physician Cardiology 09/15/21 Services Delivery Driver Relationship Specialty Start Date End Date Gab Pisano MD [address] [place] [address] PCP - General Internal Medicine 10/26/15 Brayan Pringle MD [address] [place] [address] Referring Cardiology 10/28/19 Diane Alcala, test data developerRoad Maker Internal Medicine 05/25/20 Rito Valera MD [address] [address] Primary Staff Physician Cardiology 09/15/21 Services Delivery Driver Relationship Specialty Start Date End Date Gab Pisano MD [address] [place] [address] PCP - General Internal Medicine 10/26/15 Brayan Pringle MD [facility] [place] [address] Referring Cardiology 10/28/[address] Maker Internal Medicine 05/25/20 Rito Valera MD [address] [address] Primary Staff Physician Cardiology 09/15/21 Services Delivery Driver Relationship Specialty Start Date End Date Gab Pisano MD [address] [place] [address] PCP - General Internal Medicine 10/26/15 Brayan Pringle MD [address] [place] [address] Referring Cardiology 10/28/19 Diane Alcala, test data developerRoad Maker Internal Medicine 05/25/20 Rito Valera MD [address] [address] Primary Staff Physician Cardiology 09/15/21 Services Delivery Driver Relationship Specialty Start Date End Date Gab Pisano MD [address] [place] [address] PCP - General Internal Medicine 10/26/15 Brayan Pringle MD [address] [facility] [place] [address] Referring Cardiology 10/28/19 Diane Alcala, test data developerRoad Maker Internal Medicine 05/25/20 Rito Valera MD [address] [facility] [address] [place], [place] [id number] Primary Staff Physician Cardiology 09/15/21 Services Delivery Driver Relationship Specialty Start Date End Date Gab Pisano MD [address] [facility] [place] [address] PCP - General Internal Medicine 10/26/15 Brayan Pringle MD [address] [facility] [place] [address] Referring Cardiology 10/28/[address] Maker Internal Medicine 05/25/20 Rito Valera MD [address] [facility] [address] [place] [address] Primary Staff Physician Cardiology 09/15/21 Services Delivery Driver Relationship Specialty Start Date End Date Gab Pisano MD [address] [facility] [place] [address] PCP - General Internal Medicine 10/26/15 Brayan Pringle MD [address] [facility] [place] [address] Referring Cardiology 10/28/19 Diaen Alcala, test data developerRoad Maker Internal Medicine 05/25/20 Rito Valera MD [address] [facility] [address] [place] [address] Primary Staff Physician Cardiology 09/15/21 Services Delivery Driver Relationship Specialty Start Date End Date Gab Pisano MD [address] [facility] [place] [address] PCP - General Internal Medicine 10/26/15 Brayan Pringle MD [address] [place] [address] Referring Cardiology 10/28/19 Diane Alcala, test data developerRoad Maker Internal Medicine 05/25/20 Rito Valera MD [address] [facility] [address] [place] [address] Primary Staff Physician Cardiology 09/15/21 Services Delivery Driver Relationship Specialty Start Date End Date Gab Pisano MD [address] [place] [address] PCP - General Internal Medicine 10/26/15 Brayan Pringle MD [address] [place] [address] Referring Cardiology 10/28/19 [address] Al[address] Road Maker Internal Medicine 05/25/20 Rito Valera MD [address] [facility] [address] [place] [address] Primary Staff Physician Cardiology 09/15/21 Services Delivery Driver Relationship Specialty Start Date End Date Gab Pisano MD [address] [place] [address] PCP - General Internal Medicine 10/26/15 Brayan Pringle MD [address] [place] [address] Referring Cardiology 10/28/19 Diane Alcala, test data developerRoad Maker Internal Medicine 05/25/20 Rito Valera MD [address] [facility] [address] [place] [address] Primary Staff Physician Cardiology 09/15/21 Services Delivery Driver Relationship Specialty Start Date End Date Gab Pisano MD [address] [facility] [place] [address] PCP - General Internal Medicine 10/26/15 Brayan Pringle MD [address] [facility] [place] [address] Referring Cardiology 10/28/19 Diane Alcala, test data developerRoad Maker Internal Medicine 05/25/20 Rito Valera MD [address] [facility] [place], [place] [id number] Primary Staff Physician Cardiology 09/15/21 Services Delivery Driver Relationship Specialty Start Date End Date Gab Pisano MD [address] [place] [address] PCP - General Internal Medicine 10/26/15 Brayan Pringle MD [address] [place] [address] Referring Cardiology 10/28/19 Diane Alcala RN Road Maker Internal Medicine 05/25/20 Rito Valera MD [address] [id number] Primary Staff Physician Cardiology 09/15/21 Services Delivery Driver Relationship Specialty Start Date End Date Gab Pisano MD [address] [place] [address] PCP - General Internal Medicine 10/26/15 Brayan Pringle MD [address] [place] [address] Referring Cardiology 10/28/19 Diane Alcala RN Road Maker Internal Medicine 05/25/20 Rito Valera MD [address] [facility] [facility] [place] [address] Primary Staff Physician Cardiology 09/15/21 Services Delivery Driver Relationship Specialty Start Date End Date Gab Pisano MD [address] [place] [address] PCP - General Internal Medicine 10/26/15 Brayan Pringle MD [address] [place], [place] [address]101 Referring Cardiology 10/28/19 Diane Alcala, test data developerRoad Maker Internal Medicine 05/25/20 Rito Valera MD [address] [facility] [place] [address] Primary Staff Physician Cardiology 09/15/21 Services Delivery Driver Relationship Specialty Start Date End Date Gab Pisano MD [address] [place] [address] PCP - General Internal Medicine 10/26/15 Brayan Pringle MD [address] [place], [place] 864551 Referring Cardiology 10/28/19 Diane Alcala, test data developerRoad Maker Internal Medicine 05/25/20 Rito Valera MD [address] [facility] [place] [address] Primary Staff Physician Cardiology 09/15/21 Services Delivery Driver Relationship Specialty Start Date End Date Gab Pisano MD [address] [place], [place] 861081 PCP - General Internal Medicine 10/26/15 Brayan Pringle MD [address] [place] [address] Referring Cardiology 10/28/19 Diane Alcala, test data developerRoad Maker Internal Medicine 05/25/20 Rito Valera MD [address] [address] Primary Staff Physician Cardiology 09/15/21 Services Delivery Driver Relationship Specialty Start Date End Date Gab Pisano MD [address] [place] [address] PCP - General Internal Medicine 10/26/15 Brayan Pringle MD [address] [place] [address] Referring Cardiology 10/28/19 Diane Alcala, test data developerRoad Maker Internal Medicine 05/25/20 Rito Valera MD [address] [address] Primary Staff Physician Cardiology 09/15/21 Services Delivery Driver Relationship Specialty Start Date End Date Gab Pisano MD [address] [place] [address] PCP - General Internal Medicine 10/26/15 Brayan Pringle MD [address] [place], [place] 885951 Referring Cardiology 10/28/19 Diane Alcala, test data developerRoad Maker Internal Medicine 05/25/20 Rito Valera MD [address] [address] Primary Staff Physician Cardiology 09/15/21 Services Delivery Driver Relationship Specialty Start Date End Date Gab Pisano MD [address] [facility] [place] [address] PCP - General Internal Medicine 10/26/15 Brayan Pringle MD [address] [facility] [place] [address] Referring Cardiology 10/28/19 Diane Alcala, test data developerRoad Maker Internal Medicine 05/25/20 Rito Valera MD [address] [address] Primary Staff Physician Cardiology 09/15/21 Services Delivery Driver Relationship Specialty Start Date End Date Gab Pisano MD [address] [place] [address] PCP - General Internal Medicine 10/26/15 Brayan Pringle MD [address] [facility] [place] [address] Referring Cardiology 10/28/19 Diane Alcala, test data developerRoad Maker Internal Medicine 05/25/20 Rito Valera MD [address] [address] Primary Staff Physician Cardiology 09/15/21 Services Delivery Driver Relationship Specialty Start Date End Date Gab Pisano MD [address] [place] [address] PCP - General Internal Medicine 10/26/15 Brayan Pringle MD [address] [place] [address] Referring Cardiology 10/28/19 Diane Alcala, test data developerRoad Maker Internal Medicine 05/25/20 Rito Valera MD [address] [facility] [place], [place] [id number] Primary Staff Physician Cardiology 09/15/21 Services Delivery Driver Relationship Specialty Start Date End Date Gab Pisano MD [address] [place] [address] PCP - General Internal Medicine 10/26/15 Brayan Pringle MD [address] [place], [place] 1683[address] Referring Cardiology 10/28/19 [address]a RN Road Maker Internal Medicine 05/25/20 Rito Valera MD [address] [facility] [place] [address] Primary Staff Physician Cardiology 09/15/21 Services Delivery Driver Relationship Specialty Start Date End Date Gab Pisano MD [address] [place] [address] PCP - General Internal Medicine 10/26/15 Brayan Pringle MD [address] [place], [place] [id number] Referring Cardiology 10/28/19 Diane Alcala, test data developerRoad Maker Internal Medicine 05/25/20 Rito Valera MD [address] [facility] [place] [address] Primary Staff Physician Cardiology 09/15/21 Services Delivery Driver Relationship Specialty Start Date End Date Gab Pisano MD [address] [place] [address] PCP - General Internal Medicine 10/26/15 Brayan Pringle MD [address] [place] [address] Referring Cardiology 10/28/19 Diane Alcala, test data developerRoad Maker Internal Medicine 05/25/20 Rito Valera MD [address] [address] Primary Staff Physician Cardiology 09/15/21 Services Delivery Driver Relationship Specialty Start Date End Date Gab Pisano MD [address] [place] [address] PCP - General Internal Medicine 10/26/15 Brayan Pringle MD [address] [place] [address] Referring Cardiology 10/28/19 Diane Alcala, test data developerRoad Maker Internal Medicine 05/25/20 Rito Valera MD [address] [address] Primary Staff Physician Cardiology 09/15/21 Services Delivery Driver Relationship Specialty Start Date End Date Gab Pisano MD [address] [place] [address] PCP - General Internal Medicine 10/26/15 Brayan Pringle MD [address] [place], [place] 8926[address] Referring Cardiology 10/28/19 Diane Alcala, test data developerRoad Maker Internal Medicine 05/25/20 Rito Valera MD [address] [place] [address] Primary Staff Physician Cardiology 09/15/21 Services Delivery Driver Relationship Specialty Start Date End Date Gab Pisano MD [address] [place] [address] PCP - General Internal Medicine 10/26/15 Brayan Pringle MD [address] [place] [address] Referring Cardiology 10/28/19 [address] RN Road Maker Internal Medicine 05/25/20 Rito Valera MD [address] [facility] [place] [address] Primary Staff Physician Cardiology 09/15/21 Services Delivery Driver Relationship Specialty Start Date End Date Gab Pisano MD [address] [place] [address] PCP - General Internal Medicine 10/26/15 Brayan Pringle MD [address] [place] [address] Referring Cardiology 10/28/19 Diane Alcala, test data developerRoad Maker Internal Medicine 05/25/20 Rito Valera MD [address] [facility] [place] [address] Primary Staff Physician Cardiology 09/15/21 Services Delivery Driver Relationship Specialty Start Date End Date Gab Pisano MD [address] [place] [address] PCP - General Internal Medicine 10/26/15 Brayan Pringle MD [address] [place] [address] Referring Cardiology 10/28/19 Diane Alcala, test data developerRoad Maker Internal Medicine 05/25/20 Rito Valera MD [address] [facility] [place], [place] [id number] Primary Staff Physician Cardiology 09/15/21 Services Delivery Driver Relationship Specialty Start Date End Date Gab Pisano MD [address] [place] [address] PCP - General Internal Medicine 10/26/15 Brayan Pringle MD [address] [place], [place] 1285[address] Referring Cardiology 10/28/19 Diane Alcala, test data developerRoad Maker Internal Medicine 05/25/20 Rito Valera MD [address] [facility]34 [place], [place] [id number] Primary Staff Physician Cardiology 09/15/21 Services Delivery Driver Relationship Specialty Start Date End Date Gab Pisano MD [address] [place] [address] PCP - General Internal Medicine 10/26/15 Brayan Pringle MD [address] [place], [place] 375[address] Referring Cardiology 10/28/19 Diane Alcala, test data developerRoad Maker Internal Medicine 05/25/20 Rito Valera MD [address] [facility]34 [place] [address] Primary Staff Physician Cardiology 09/15/21 Services Delivery Driver Relationship Specialty Start Date End Date Gab Pisano MD [address] [place] [address] PCP - General Internal Medicine 10/26/15 Brayan Pringle MD [address] [place], [place] 7605[address] Referring Cardiology 10/28/19 [address] RN Road Maker Internal Medicine 05/25/20 Rito Valera MD [address] [facility] [place] [address] Primary Staff Physician Cardiology 09/15/21 FOR RECORDS [...] BE BASED ON THE PRIMARY CLINICAL RECORDS. [facility] [employer] [facility]. provides no warranty or guarantee of the accuracy or completeness of information in this document.
[2023-05-03 20:28] LABS: Lactic Acid 1.5 mmol/L (0.4-1.9)
[2023-05-03] MEDS: Pantoprazole Sodium 40 MG in 0.9% Normal Saline (100mL MB+) 100 ML 330 MG IV (20:45)
[2023-05-03] MEDS: 0.9% Normal Saline (1000mL) 1,000 ML 50 ML IV (20:45)
[2023-05-03] MEDS: Piperacil/Tazobactam 4.5 GM in 0.9% Normal Saline (100mL MB+) 100 ML IV (21:19)
[2023-05-03] MEDS: Atorvastatin Calcium 10 MG Tablet PO (21:20)
[2023-05-03] MEDS: Doxepin Hydrochloride 10 MG Capsule PO (21:20)
[2023-05-03] MEDS: BENZOCAINE/MENTHOL 1 LOZENGE MUCOUS MEM (21:20)
[2023-05-03] MEDS: Gabapentin 300 MG Capsule PO (21:20)
[2023-05-03] MEDS: MELATONIN 3 MG TABLET PO (21:20)
[2023-05-03] MEDS: Mirtazapine 15 MG Tablet 7.5 MG PO (21:20)
[2023-05-03 22:00] LABS: Erythrocyte Sedimentation Rate < 1 mm/hr (0-30)
[2023-05-03 22:21] LABS: Anion Gap 3 (5-15); BUN 31 mg/dL (7-18); BUN/Creat Ratio 29.8 RATIO (10-20); Calcium,Total 8.3 mg/dL (8.5-10.1); Chloride 114 mmol/L (98-107); Creatinine, Serum 1.04 mg/dL (0.55-1.02); EST Glomerular Filtration Rate 54 mL/min (>60); Est Glom Filt Rate - Afr Amer 65 mL/min (>60); Estimated Creatinine Clearance 37.53 ml/min; Glucose 141 mg/dL (74-106); Potassium 4.6 mmol/L (3.5-5.1); Sodium Level 139 mmol/L (136-145)
[2023-05-03 22:41] LABS: Procalcitonin 0.06 ng/mL (0.00-0.09)
[2023-05-04 00:26] LABS: M R Staph aureus DNA By PCR Negative (Negative); Probe Check PASS; Specimen Processing Control PASS
[2023-05-04 03:24] VITALS: BMI 21.2
[2023-05-04 03:45] VITALS: BP 130/90; PULSE 92; RESP 16; TEMP 37; O2SAT 98
[2023-05-04] MEDS: Levothyroxine 88 MCG Tablet PO (05:38)
[2023-05-04] MEDS: Piperacil/Tazobactam 3.375 GM in 0.9% Normal Saline (50mL MB+) 50 ML IV ×3 (05:38→21:18)
[2023-05-04 07:23] LABS: Hematocrit 29.6 % (37-47); Hemoglobin 9.2 g/dL (12.0-15.0); Mean Corp Hgb Conc 31.1 g/dL (32-36); Mean Corpuscular Volume 90.2 fL (81-99); Mean Platelet Vol. 9.4 fl (6.2-12.0); POSITIVE COUNT YES; POSITIVE MORPHOLOGY YES; Platelet Count 215 K/mm3 (150-450); RBC Distribution Width CV 17.3 % (11.6-14.6); RBC Distribution Width SD 55.4 fl (35.1-43.9); Red Blood Count 3.28 M/mm3 (4.2-5.4); White Blood Count 10.6 K/mm3 (4.4-11.0)
[2023-05-04 07:26] LABS: Differential Indicated MANUAL DIFF
[2023-05-04 07:57] LABS: ALB/GLOB Ratio 0.6 RATIO (0.9-2.4); AST(SGOT) 47 U/L (15-37); Alanine Aminotransfer ALT/SGPT 56 U/L (13-56); Alkaline Phosphatase 128 U/L (45-117); Anion Gap 4 (5-15); BUN 28 mg/dL (7-18); BUN/Creat Ratio 28.3 RATIO (10-20); Calcium,Total 8.5 mg/dL (8.5-10.1); Chloride 112 mmol/L (98-107); Creatinine, Serum 0.99 mg/dL (0.55-1.02); EST Glomerular Filtration Rate 57 mL/min (>60); Est Glom Filt Rate - Afr Amer 69 mL/min (>60); Estimated Creatinine Clearance 39.42 ml/min; Globulin 3.6 g/dL (2.2-4.2); Glucose 121 mg/dL (74-106); Magnesium 2.1 mg/dL (1.6-2.6); Phosphorus 3.1 mg/dL (2.5-4.9); Potassium 4.6 mmol/L (3.5-5.1); Protein, Total 5.6 g/dL (6.4-8.2); Sodium Level 138 mmol/L (136-145); Thyroid Stim Hormone (TSH) 4.91 uIU/mL (0.358-3.74)
[2023-05-04 08:12] LABS: International Normalized Ratio 2.6; Prothrombin Time (Protime)PT. 28.1 SECONDS (11.7-14.9)
[2023-05-04 08:30] LABS: Lymphocyte 5 % (19-41); Monocyte 8 % (0-10); Neutrophil-Segmented 82 % (47-70); Other WBC Type 3 %; Promyelocyte 2 % (0-0); Total Cells Counted 100 (MANUAL DIFF)
[2023-05-04 08:31] LABS: Anisocytosis 2+; Macrocytosis 2+; Ovalocyte 1+
[2023-05-04 08:48] VITALS: BP 122/83; PULSE 100; RESP 14; TEMP 36.9; O2SAT 100
[2023-05-04] MEDS: Iron Polysaccharide Complex 150 MG CAPSULE PO (09:00)
[2023-05-04] MEDS: Acetaminophen 325 MG Tablet 650 MG PO (09:00)
[2023-05-04] MEDS: Fluconazole 100 MG Tablet PO (09:00)
[2023-05-04 09:01] VITALS: BP 122/83; PULSE 100
[2023-05-04] MEDS: Metoprolol(XL)Succ 25 MG Tablet 12.5 MG PO (09:01)
[2023-05-04] MEDS: Aspirin E.C. 81 MG Tablet PO (09:01)
--- NOTE | 2023-05-04 10:35 | CASEMGMT ---
SW met with patient. Introduced self and role at [facility]. SW asked patient if she plans on returning to TCU when she is ready for discharge from the hospital. Patient said it depends on how she is doing. SW will continue to follow and see what therapy recommends. Plan: d/c back to TCU vs home with HH vs outpatient [place] [facility]ARTINS
[2023-05-04] MEDS: Pantoprazole Sodium 40 MG in 0.9% Normal Saline (100mL MB+) 100 ML 330 MG IV ×2 (11:02→20:55)
--- NOTE | 2023-05-04 13:16 | CON.PCM.ID_ITS ---
Assessment & Plan Assessment/Plan (1) Fever: PLAN: Low grade temp, MRI showed mastoiditis. Some L base rhonchi, cxr is clear. May be CAP vs atelectasis to explain her temp and not feeling well. Shoulder doing well. Cont empiric zosyn for now. On fluc for thrush, candiduria. will follow, thank you (2) Septic arthritis of shoulder, left: HPI Consult Data Date of Consult: 05/04/23 HPI Narrative Reason for Consultation: fever HPI Narrative: KEYONNA VILLAGOMEZ, is a 82 F who presented to TCU from [facility] after admit start of April for strep L shoulder septic arthritis complicated by GI bleed, HSV, thrush. Had shoulder washout done, given ceftriaxone, sent to TCU to finish 2 weeks po amoxicillin. Over past day or two, developed new dizziness, weakness, fever, posterior headache. Transferred to inpatient, started on zosyn. Feeling ok today. Full ROS performed and neg except as noted above. 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[place] heart without angina pectoris Back problem Cellulitis of left lower extremity Chest pain Constipation Diverticulitis of sigmoid colon DVT (deep venous thrombosis) Essential hypertension Gastrointestinal hemorrhage Heart murmur Hemorrhoids History of pulmonary embolus (PE) (~2009) History of venous thrombosis and embolism hx of APLL Hyperlipidemia Hypertension Hypertrophic cardiomyopathy Hypofibrinogenemia Hypothyroidism Kidney disease LVH (left ventricular 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 Palpitations Personal history of colonic polyps Severe left ventricular hypertrophy Severe mitral regurgitation Thrombophlebitis of superficial veins of left lower extremity Wild-type transthyretin-related (ATTR) amyloidosis Home Medications levothyroxine 88 mcg tablet 88 mcg PO DAILY THYROID 05/27/18 [History Last Taken 04/04/23] enoxaparin 60 mg/0.6 mL subcutaneous syringe (Lovenox) 60 mg subcut QHS BLOOD THINNER 09/25/18 [History Last Taken 04/01/23] aspirin 81 mg tablet,delayed release (Adult Aspirin Regimen) 81 mg PO DAILY HEART HEALTH 12/12/19 [History Last Taken 04/04/23] tafamidis 61 mg capsule 61 mg PO DAILY HEART FAILURE 12/12/19 [History Last Taken 04/04/23] cholecalciferol (vitamin D3) 125 mcg (5,000 unit) capsule 125 mcg PO DAILY SUPPLEMENT 04/15/20 [History Last Taken 04/04/23] rosuvastatin 5 mg tablet 5 mg PO DAILY CHOLESTEROL 01/25/22 [History Last Taken 04/04/23] metoprolol succinate 25 mg tablet,extended release 24 hr (Toprol XL) 12.5 mg PO DAILY BLOOD PRESSURE 07/13/22 [History Last Taken 04/04/23] vitamins A,C,N-myez-aslwyu 4,296 mcg-226 mg-90 mg capsule (PreserVision AREDS) 1 cap PO BID EYE HEALTH 01/11/23 [History Last Taken 04/04/23] gabapentin 300 mg capsule 300 mg PO QHS NEUROPATHY 02/16/23 [History Last Taken 04/03/23] ondansetron 4 mg disintegrating tablet 4 mg PO Q8H PRN NAUSEA 04/04/23 [History Last Taken 04/04/23] ondansetron 4 mg disintegrating tablet 4 mg PO Q8H PRN PRN Nausea #10 tabs 04/04/23 [Rx Last Taken Unknown] MAGIC MOUTH WASH (BMX) 180 mL suspension 5 ml PO Q4H PRN Mouth pain #180 mL 04/20/23 [History Last Taken Unknown] acetaminophen 500 mg tablet 1,000 mg PO Q8H PRN PRN pain 04/20/23 [History Last Taken Unknown] amoxicillin 500 mg capsule 1,000 mg PO BID Infection 04/20/23 [History Last Taken Unknown] benzocaine 6 mg-menthol 10 mg lozenges 1 salvatore mucous membrane Q2H Sore throat 04/20/23 [History Last Taken Unknown] diclofenac sodium 1 % topical gel (Voltaren Arthritis Pain) 2 g topical 4X/DAY Arthritis pain 04/20/23 [History Last Taken Unknown] pantoprazole 40 mg tablet,delayed release 40 mg PO BID Acid reflux 04/20/23 [History Last Taken Unknown] polyethylene glycol 3350 17 gram/dose oral powder 17 g PO DAILY Constipation 04/20/23 [History Last Taken Unknown] sennosides 8.6 mg capsule (senna) 8.6 mg PO BID PRN constipation 04/20/23 [History Last Taken Unknown] ascorbate calcium (vitamin C) 500 mg tablet 500 mg PO DAILY 05/03/23 [History Last Taken Unknown] atorvastatin 10 mg tablet (Lipitor) 10 mg PO QHS 05/03/23 [History Last Taken Unknown] calcium carbonate 200 mg calcium (500 mg) chewable tablet (Tums) 200 mg PO BID 05/03/23 [History Last Taken Unknown] doxepin 10 mg capsule 10 mg PO QHS 05/03/23 [History Last Taken Unknown] fluconazole 100 mg tablet (Diflucan) 100 mg PO DAILY 05/03/23 [History Last Taken Unknown] mirtazapine 7.5 mg tablet 7.5 mg PO QHS 05/03/23 [History Last Taken Unknown] nystatin 100,000 unit/gram topical powder 1 applic topical BID 05/03/23 [History Last Taken Unknown] polysaccharide iron complex 150 mg iron capsule (Ferrex) 150 mg PO DAILY 05/03/23 [History Last Taken Unknown] potassium chloride 20 mEq tablet,extended release 40 meq PO DAILY Supplement 05/03/23 [History Last Taken Unknown] Allergy/AdvReac Type Severity Reaction Status Date / Time Iodinated Contrast Media Allergy Severe Hives Verified 05/03/23 14:45 [Iodinated Contrast- Oral and IV Dye] iodine Allergy Anaphylaxis Verified 05/03/23 14:45 Family History Mother Colon cancer Brother Myeloma Father Heart disease Surgical History History of cholecystectomy History of left heart catheterization (10/22/19) History of left hip replacement History of right hip replacement Hx of arthroscopic knee surgery Hx of bilateral inguinal hernia repair Hx of bladder repair surgery Hx of hysterectomy Hx of partial thyroidectomy Hx of umbilical hernia repair (~2009) Social History household members: spouse Smoking Status: Never smoker second hand exposure: No alcohol intake: never substance use type: does not use caffeine: Yes (very rare) what type of physical activity do you participate in: none frequency: does not exercise seatbelt use: always Physical Exam Const alert and no apparent distress General Appearance: cooperative HEENT normocephalic and head/scalp atraumatic Eyes PERRL and EOMs intact bilaterally Neck supple and No nodes Resp normal air movement Resp Narrative: some L base rhonchi Cardio regular rate and regular rhythm GI soft to palpation, non-tender and non-distended Extremity General Extremity: edema Skin no rashes or lesions noted Neuro CN's II-XII intact bilaterally Lab / Micro Data Attestation: I reviewed the patient's lab results. 05/04/23 07:05 05/04/23 07:05 Labs: Laboratory Results - last 24 hr 05/03/23 15:20: Lactic Acid 1.6 05/03/23 15:28: Urine Color Yellow, Urine Clarity Clear, Urine pH 7.0, Ur Specific Farnam 1.010, Urine Protein 15 H, Urine Glucose (UA) Normal, Urine Ketones Negative, Urine Occult Blood 25 H, Urine Nitrite Negative, Urine Bilirubin Negative, Urine Urobilinogen Normal, Ur Leukocyte Esterase Negative, Urine RBC 0-5 SEEN, Urine WBC 0 SEEN, Ur Squamous Epith Cells 0 SEEN, Urine Bacteria 0 SEEN, Urine Mucus 0 SEEN, Urine Yeast RARE 05/03/23 15:30: WBC 12.7 H, RBC 3.65 L, Hgb 10.8 L, Hct 33.4 L, MCV 91.5, MCH 29.6, MCHC 32.3, RDW Std Deviation 56.5 H, RDW Coeff of Rashmi 17.2 H, Plt Count 294, MPV 9.7, Immature Gran % (Auto) [employer], Neut % (Auto) [employer], Lymph % (Auto) [employer], Cedar % (Auto) [employer], Eos % (Auto) [employer], Baso % (Auto) [employer], Absolute Neuts (auto) 10.8 H, Absolute Lymphs (auto) 1.14, Total Counted 100, Neutrophils % (Manual) 81 H, Band Neutrophils % 4, Lymphocytes % (Manual) 9 L, Monocytes % (Manual) 6, Nucleated RBC % [employer], Diff Path Review July, Platelet Estimate ADEQUATE, RBC Morphology NORM C+C, PT 18.1 H, INR 1.5, APTT 38.1 H, Sodium 136, Potassium 5.7 H, Chloride 108 H, Carbon Dioxide 24.0, Anion Gap 4 L, BUN 35 H, Creatinine 1.14 H, Estim Creat Clear Calc 32.85, Est GFR (MDRD) Af Amer 59 L, Est GFR (MDRD) Non-Af 49 L, BUN/Creatinine Ratio 30.7 H, Glucose 114 H, Calcium 8.6, Total Bilirubin 0.40, AST 59 H, ALT 75 H, Alkaline Phosphatase 156 H, Troponin I High Sens 62 H, Total Protein 6.4, Albumin 2.4 L, Globulin 4.0, Albumin/Globulin Ratio 0.6 L 05/03/23 17:18: Troponin I High Sens 64 H 05/03/23 19:40: Lactic Acid 1.5 05/03/23 21:30: MRSA (PCR) Negative 05/03/23 21:39: ESR < 1, Sodium 139, Potassium 4.6, Chloride 114 H, Carbon Dioxide 22.0, Anion Gap 3 L, BUN 31 H, Creatinine 1.04 H, Estim Creat Clear Calc 37.53, Est GFR (MDRD) Af Amer 65, Est GFR (MDRD) Non-Af 54 L, BUN/Creatinine Ratio 29.8 H, Glucose 141 H, Calcium 8.3 L, C-React Prot Ext Range 64.10 H, Procalcitonin 0.06 05/04/23 07:05: WBC 10.6, RBC 3.28 L, Hgb 9.2 L, Hct 29.6 L, MCV 90.2, MCH 28.0, MCHC 31.1 L, RDW Std Deviation 55.4 H, RDW Coeff of Rashmi 17.3 H, Plt Count 215, MPV 9.4, Neut % (Auto) Not Reportable, Total Counted 100, Neutrophils % (Manual) 82 H, Lymphocytes % (Manual) 5 L, Monocytes % (Manual) 8, Promyelocytes % 2 H, Other Cells % 3, Diff Path Review May foll, Anisocytosis 2+, Macrocytosis 2+, Ovalocytes 1+, PT 28.1 H, INR 2.6, Sodium 138, Potassium 4.6, Chloride 112 H, Carbon Dioxide 22.0, Anion Gap 4 L, BUN 28 H, Creatinine 0.99, Estim Creat Clear Calc 39.42, Est GFR (MDRD) Af Amer 69, Est GFR (MDRD) Non-Af 57 L, BUN/Creatinine Ratio 28.3 H, Glucose 121 H, Calcium 8.5, Phosphorus 3.1, Magnesium 2.1, Total Bilirubin 0.40, AST 47 H, ALT 56, Alkaline Phosphatase 128 H, Total Protein 5.6 L, Albumin 2.0 L, Globulin 3.6, Albumin/Globulin Ratio 0.6 L, TSH 4.91 H Micro: Microbiology 05/03/23 20:10 Mucosa - Nasopharyngeal Respiratory Panel (PCR) - Final 05/03/23 15:28 Mucosa - Nose SARS-CoV-2, Influenza & RSV (PCR) - Final Imaging Radiology Impression Chest X-Ray 05/03/23 16:00 IMPRESSION: No radiographic evidence of acute cardiopulmonary disease. Electronically Signed: Arvin Morales DO at 16:12 EST ,
[2023-05-04 13:40] LABS: Pathologist Review Reviewed
[2023-05-04 13:42] LABS: Pathologist Review Reviewed
[2023-05-04 14:25] VITALS: BP 109/70; PULSE 95; RESP 14; TEMP 36.8; O2SAT 96
[2023-05-04 14:38] LABS: Absolute Neutrophil Count 8.7 X10^3/uL (2.0-7.7)
[2023-05-04 14:39] LABS: Absolute Lymphocyte Count 0.53 X10^3/uL (0.83-4.51)
[2023-05-04] MEDS: 0.9% Normal Saline (1000mL) 1,000 ML 50 ML IV (15:53)
--- NOTE | 2023-05-04 16:25 | CON.PCM.GI_ITS ---
HPI Consult Data Date of Consult: 05/04/23 HPI Narrative Reason for Consultation: Abdominal pain and history of GI bleed HPI Narrative: KEYONNA IVLLAGOMEZ, is a 82 F who presents from the transitional care unit. She has a complicated past medical history of history of PE (on Lovenox daily) and hypofibrinogenemia, IVC filter, cardiac amyloidosis, hypothyroidism, GERD, GI bleed secondary to duodenal ulcer. She presented to [facility] ED from the transitional care rehab unit 05/03/2023 due to fatigue, elevated heart rate, and low-grade fever. Over the past month she has been in and out of hospitals and was at [facility] for left shoulder septic arthritis status post washout and a duodenal GI bleed and has since [facility]. She had been doing fair until the past several days when she has been getting dizzy and lightheaded and having episodes of sinus tach when she is up working with physical therapy and has also been more tired than usual. Did have MRI today due to persistent headache and MRI with chronic changes in bilateral mastoiditis however mastoiditis does not correlate with exam. In ED she had a white blood cell count of 12.7 with left shift, hemoglobin 10.8, creatinine 1.14 with potassium of 5.7 and troponin of 62 with repeat 64 as well as elevated transaminases. Patient initially with some low-grade tachycardia and low BP and was given IV fluids and this improved. Given multiple complaints and patient generally not doing well hospitalist contacted for admission. Patient is feeling better after fluids. Patient has not been doing well since her hospitalization at [facility] and has been generally weak, also since her shoulder intervention has had intermittent sharp pains in the back of her head which prompted the MRI, has not been hearing as well out of bilateral ears but no pain over mastoid, has had some problems with thrush and HSV oral sore outbre ak. Over the past week thinks she has been getting weaker and described an episode on Sunday of this week where she had an episode of hypotension and became clammy and shaky and vomited, has not had another 1 of those episodes but has been weak and dizzy and tachycardic when sitting up or trying to stand up and walk with therapy. Has been short of breath for couple of weeks and has a dry cough over. The past several months that is overall unchanged. Had a little bit of pain in her right lower quadrant earlier today that has completely resolved. FOBT was positive and patient does not note any bright blood in stool and only notes dark stool but this has been unchanged since her hospitalization at [facility] and she is also on iron supplementation. Has Britton catheter in place since her admission in [facility]. Patient not presently feeling nauseous but has had poor p.o. intake overall. Reports no changes in her shoulder and no increased pain or complaints in that regard. [facility] Medical History Abdominal pain Abdominal pain Abnormal stress echo Acid reflux Arthritis Atherosclerosis of [place] coronary artery of [place] heart without angina pector is Back problem Cellulitis of left lower extremity Chest pain Constipation Diverticulitis of sigmoid colon DVT (deep venous thrombosis) Essential hypertension Gastrointestinal hemorrhage Heart murmur Hemorrhoids History of pulmonary embolus (PE) (~2009) History of venous thrombosis and embolism hx of APLL Hyperlipidemia Hypertension Hypertrophic cardiomyopathy Hypofibrinogenemia Hypothyroidism Kidney disease LVH (left ventricular 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 Palpitations Personal history of colonic polyps Severe left ventricular hypertrophy Severe mitral regurgitation Thrombophlebitis of superficial veins of left lower extremity Wild-type transthyretin-related (ATTR) amyloidosis Home Medications levothyroxine 88 mcg tablet 88 mcg PO DAILY THYROID 05/27/18 [History Last Taken 04/04/23] enoxaparin 60 mg/0.6 mL subcutaneous syringe (Lovenox) 60 mg subcut QHS BLOOD THINNER 09/25/18 [History Last Taken 04/01/23] aspirin 81 mg tablet,delayed release (Adult Aspirin Regimen) 81 mg PO DAILY HEART HEALTH 12/12/19 [History Last Taken 04/04/23] tafamidis 61 mg capsule 61 mg PO DAILY HEART FAILURE 12/12/19 [History Last Taken 04/04/23] cholecalciferol (vitamin D3) 125 mcg (5,000 unit) capsule 125 mcg PO DAILY SUPPLEMENT 04/15/20 [History Last Taken 04/04/23] rosuvastatin 5 mg tablet 5 mg PO DAILY CHOLESTEROL 01/25/22 [History Last Taken 04/04/23] metoprolol succinate 25 mg tablet,extended release 24 hr (Toprol XL) 12.5 mg PO DAILY BLOOD PRESSURE 07/13/22 [History Last Taken 04/04/23] vitamins A,C,J-kqnf-qyfyon 4,296 mcg-226 mg-90 mg capsule (PreserVision AREDS) 1 cap PO BID EYE HEALTH 01/11/23 [History Last Taken 04/04/23] gabapentin 300 mg capsule 300 mg PO QHS NEUROPATHY 02/16/23 [History Last Taken 04/03/23] ondansetron 4 mg disintegrating tablet 4 mg PO Q8H PRN NAUSEA 04/04/23 [History Last Taken 04/04/23] ondansetron 4 mg disintegrating tablet 4 mg PO Q8H PRN PRN Nausea #10 tabs 04/04/23 [Rx Last Taken Unknown] MAGIC MOUTH WASH (BMX) 180 mL suspension 5 ml PO Q4H PRN Mouth pain #180 mL 04/20/23 [History Last Taken Unknown] acetaminophen 500 mg tablet 1,000 mg PO Q8H PRN PRN pain 04/20/23 [History Last Taken Unknown] amoxicillin 500 mg capsule 1,000 mg PO BID Infection 04/20/23 [History Last Taken Unknown] benzocaine 6 mg-menthol 10 mg lozenges 1 salvatore mucous membrane Q2H Sore throat 04/20/23 [History Last Taken Unknown] diclofenac sodium 1 % topical gel (Voltaren Arthritis Pain) 2 g topical 4X/DAY Arthritis pain 04/20/23 [History Last Taken Unknown] pantoprazole 40 mg tablet,delayed release 40 mg PO BID Acid reflux 04/20/23 [History Last Taken Unknown] polyethylene glycol 3350 17 gram/dose oral powder 17 g PO DAILY Constipation 04/20/23 [History Last Taken Unknown] sennosides 8.6 mg capsule (senna) 8.6 mg PO BID PRN constipation 04/20/23 [History Last Taken Unknown] ascorbate calcium (vitamin C) 500 mg tablet 500 mg PO DAILY 05/03/23 [History Last Taken Unknown] atorvastatin 10 mg tablet (Lipitor) 10 mg PO QHS 05/03/23 [History Last Taken Unknown] calcium carbonate 200 mg calcium (500 mg) chewable tablet (Tums) 200 mg PO BID 05/03/23 [History Last Taken Unknown] doxepin 10 mg capsule 10 mg PO QHS 05/03/23 [History Last Taken Unknown] fluconazole 100 mg tablet (Diflucan) 100 mg PO DAILY 05/03/23 [History Last T aken Unknown] mirtazapine 7.5 mg tablet 7.5 mg PO QHS 05/03/23 [History Last Taken Unknown] nystatin 100,000 unit/gram topical powder 1 applic topical BID 05/03/23 [History Last Taken Unknown] polysaccharide iron complex 150 mg iron capsule (Ferrex) 150 mg PO DAILY 05/03/23 [History Last Taken Unknown] potassium chloride 20 mEq tablet,extended release 40 meq PO DAILY Supplement 05/03/23 [History Last Taken Unknown] Allergy/AdvReac Type Severity Reaction Status Date / Time Iodinated Contrast Media Allergy Severe Hives Verified 05/03/23 14:45 [Iodinated Contrast- Oral and IV Dye] iodine Allergy Anaphylaxis Verified 05/03/23 14:45 Family History Mother Colon cancer Brother Myeloma Father Heart disease Surgical History History of cholecystectomy History of left heart catheterization (10/22/19) History of left hip replacement History of right hip replacement Hx of arthroscopic knee surgery Hx of bilateral inguinal hernia repair Hx of bladder repair surgery Hx of hysterectomy Hx of partial thyroidectomy Hx of umbilical hernia repair (~2009) Social History household members: spouse Smoking Status: Never smoker second hand exposure: No alcohol intake: never substance use type: does not use caffeine: Yes (very rare) what type of physical activity do you participate in: none frequency: does not exercise seatbelt use: always ROS ROS Narrative General: Reportedly had low-grade temp HENT: Has had some sores in her mouth from HSV outbreak, intermittent sharp pain in back of head since [facility] EYES: Denies acute changes in vision Resp: Chronic dry cough, several weeks of shortness of breath Cardiac: Denies chest pain GI: Had a little bit of right lower quadrant pain earlier but that is resolved, denies changes in bowel, no nausea or vomiting since Sunday : Britton catheter in place Extremity: Had swelling after [facility] but this is resolved MSK: Generalized weakness legs greater than arms Neuro: Denies any numbness/tingling Heme: Denies any bleeding or bruising Skin: Denies rashes Psychiatric: No complaints voiced Physical Exam Const alert and no apparent distress General Appearance: cooperative HEENT normocephalic and head/scalp atraumatic Eyes PERRL and EOMs intact bilaterally Neck supple and No nodes Resp normal air movement Resp Narrative: some L base rhonchi Cardio regular rate and regular rhythm GI soft to palpation, non-tender and non-distended Extremity General Extremity: edema Skin no rashes or lesions noted Neuro CN's II-XII intact bilaterally Lab / Micro Data 05/04/23 07:05 05/04/23 07:05 Labs: Laboratory Results - last 24 hr 05/03/23 15:30: Diff Path Review Reviewed 05/03/23 17:18: Troponin I High Sens 64 H 05/03/23 19:40: Lactic Acid 1.5 05/03/23 21:30: MRSA (PCR) Negative 05/03/23 21:39: ESR < 1, Sodium 139, Potassium 4.6, Chloride 114 H, Carbon Dioxide 22.0, Anion Gap 3 L, BUN 31 H, Creatinine 1.04 H, Estim Creat Clear Calc 37.53, Est GFR (MDRD) Af Amer 65, Est GFR (MDRD) Non-Af 54 L, BUN/Creatinine Ratio 29.8 H, Glucose 141 H, Calcium 8.3 L, C-React Prot Ext Range 64.10 H, Procalcitonin 0.06 05/04/23 07:05: WBC 10.6, RBC 3.28 L, Hgb 9.2 L, Hct 29.6 L, MCV 90.2, MCH 28.0, MCHC 31.1 L, RDW Std Deviation 55.4 H, RDW Coeff of Rashmi 17.3 H, Plt Count 215, MPV 9.4, Neut % (Auto) Not Reportable, Absolute Neuts (auto) 8.7 H, Absolute Lymphs (auto) 0.53 L, Total Counted 100, Neutrophils % (Manual) 82 H, Lymphocytes % (Manual) 5 L, Monocytes % (Manual) 8, Promyelocytes % 2 H, Other Cells % 3, Diff Path Review Reviewed, Anisocytosis 2+, Macrocytosis 2+, Ovalocytes 1+, PT 28.1 H, INR 2.6, Sodium 138, Potassium 4.6, Chloride 112 H, Carbon Dioxide 22.0, Anion Gap 4 L, BUN 28 H, Creatinine 0.99, Estim Creat Clear Calc 39.42, Est GFR (MDRD) Af Amer 69, Est GFR (MDRD) Non-Af 57 L, BUN/Creatinine Ratio 28.3 H, Glucose 121 H, Calcium 8.5, Phosphorus 3.1, Magnesium 2.1, Total Bilirubin 0.40, AST 47 H, ALT 56, Alkaline Phosphatase 128 H, Total Protein 5.6 L, Albumin 2.0 L, Globulin 3.6, Albumin/Globulin Ratio 0.6 L, TSH 4.91 H Micro: Microbiology 05/03/23 20:10 Mucosa - Nasopharyngeal Respiratory Panel (PCR) - Final 05/03/23 15:28 Mucosa - Nose SARS-CoV-2, Influenza & RSV (PCR) - Final Assessment & Plan Assessment/Plan (1) Generalized weakness: (2) Tachycardia: (3) Thrush: (4) Hypothyroidism: (5) Hypertrophic cardiomyopathy: (6) 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 She is currently being seen by infectious disease -Given the reported fever, elevated white blood cell count in conjunction with recent group A strep septic arthritis of shoulder still on antibiotics, possible mastoiditis, oral HSV outbreak, and ?ashli UTI ID consulted for additional input #GERD and GIB w/ FOBT positive -IV PPI -Hemoglobin has been stable over the past several blood draws however patient has been weak, BUN increasing and patient has FOBT positive -She is not having any abdominal pain and her hemoglobin seems to be stable at this time. 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 -Recommend hold off on endoscopy at this time. If hemoglobin continues to trend down then she can get an upper endoscopy. She was okay with this plan. -Continue to hold systemic anticoagulation s Charges/Coding Visit Charges Inpatient E&M: 75782 Init Hosp L3
[2023-05-04] MEDS: Tamsulosin HCl 0.4 MG Capsule 0.400000000000000022 MG PO (16:45)
[2023-05-04] MEDS: Ensure Plus High Protein 120 ML LIQUID PO ×2 (16:47→21:04)
--- NOTE | 2023-05-04 17:16 | PCM.PN.HOSP ---
Reason for Visit Reason for Visit: Diagnoses Herpesviral infection, unspecified (05/03/23) Candidal stomatitis (05/03/23) Hypothyroidism, unspecified (05/03/23) Organ-limited amyloidosis (05/03/23) Hyperkalemia (05/03/23) Other hypertrophic cardiomyopathy (05/03/23) Cardiomyopathy in diseases classified elsewhere (05/03/23) Disorder of gingiva and edentulous alveolar ridge, unspecified (05/03/23) Pyogenic arthritis, unspecified (05/03/23) Tachycardia, unspecified (05/03/23) Fever, unspecified (05/03/23) Weakness (05/03/23) Abnormal levels of other serum enzymes (05/03/23) Other specified abnormal findings of blood chemistry (05/03/23) Subjective Subjective Patient was seen and examined today, she was admitted yesterday for elevated temperature and generalized weakness, she had been in TCU undergoing inpatient skilled services. White blood cell count today was normal, hemoglobin was low at 9.2, and troponin was elevated yesterday but was overall flat and not increasing. Patient had 2 liver enzymes that were elevated-alkaline phosphatase 128, AST at 47. Objective Data Objective Data Vital Signs: Vital Signs Temp Pulse Resp BP Pulse Ox O2 Del Method 98.3 F 95 14 109/70 96 Room Air 05/04/23 14:25 05/04/23 14:25 05/04/23 14:25 05/04/23 14:25 05/04/23 14:25 05/04/23 14:33 Oxygen Delivery Method Room Air Weight: 58 kg Body Mass Index (BMI) 21.2 Intake & Output: Intake and Output for Last 24 Hours 05/02/23 05/03/23 05/04/23 23:59 23:59 23:59 Intake Total 1210 / 1210 1781.67 / 1781.67 Output Total 650 / 650 975 / 975 Balance 560 / 560 806.67 / 806.67 Lab / Micro Data 05/04/23 07:05 05/04/23 07:05 Labs: Laboratory Results - last 24 hr 05/03/23 15:30: Diff Path Review Reviewed 05/03/23 17:18: Troponin I High Sens 64 H 05/03/23 19:40: Lactic Acid 1.5 05/03/23 21:30: MRSA (PCR) Negative 05/03/23 21:39: ESR < 1, Sodium 139, Potassium 4.6, Chloride 114 H, Carbon Dioxide 22.0, Anion Gap 3 L, BUN 31 H, Creatinine 1.04 H, Estim Creat Clear Calc 37.53, Est GFR (MDRD) Af Amer 65, Est GFR (MDRD) Non-Af 54 L, BUN/Creatinine Ratio 29.8 H, Glucose 141 H, Calcium 8.3 L, C-React Prot Ext Range 64.10 H, Procalcitonin 0.06 05/04/23 07:05: WBC 10.6, RBC 3.28 L, Hgb 9.2 L, Hct 29.6 L, MCV 90.2, MCH 28.0, MCHC 31.1 L, RDW Std Deviation 55.4 H, RDW Coeff of Rashmi 17.3 H, Plt Count 215, MPV 9.4, Neut % (Auto) Not Reportable, Absolute Neuts (auto) 8.7 H, Absolute Lymphs (auto) 0.53 L, Total Counted 100, Neutrophils % (Manual) 82 H, Lymphocytes % (Manual) 5 L, Monocytes % (Manual) 8, Promyelocytes % 2 H, Other Cells % 3, Diff Path Review Reviewed, Anisocytosis 2+, Macrocytosis 2+, Ovalocytes 1+, PT 28.1 H, INR 2.6, Sodium 138, Potassium 4.6, Chloride 112 H, Carbon Dioxide 22.0, Anion Gap 4 L, BUN 28 H, Creatinine 0.99, Estim Creat Clear Calc 39.42, Est GFR (MDRD) Af Amer 69, Est GFR (MDRD) Non-Af 57 L, BUN/Creatinine Ratio 28.3 H, Glucose 121 H, Calcium 8.5, Phosphorus 3.1, Magnesium 2.1, Total Bilirubin 0.40, AST 47 H, ALT 56, Alkaline Phosphatase 128 H, Total Protein 5.6 L, Albumin 2.0 L, Globulin 3.6, Albumin/Globulin Ratio 0.6 L, TSH 4.91 H Micro: Microbiology 05/03/23 20:10 Mucosa - Nasopharyngeal Respiratory Panel (PCR) - Final 05/03/23 15:28 Mucosa - Nose SARS-CoV-2, Influenza & RSV (PCR) - Final Physical Exam Const alert, oriented x3, no apparent distress and average body habitus General Appearance: cooperative, well kempt and well developed Orientation / Consciousness: awake, oriented to person, oriented to place and oriented to time HEENT normocephalic, head/scalp atraumatic and moist oral mucous membranes Eyes PERRL, EOMs intact bilaterally and conjunctivae normal Neck supple, no JVD, thyroid normal and no carotid bruits General: trachea midline Resp normal respiratory effort, no retractions, no use of accessory muscles and clear to auscultation bilaterally Auscultation: Negative for rales, rhonchi or wheezes Cardio regular rate, regular rhythm, S1 normal heart sound, S2 normal heart sound, no murmurs, no rub and no gallops GI normal to inspection, nondistended, normoactive bowel sounds, soft to palpation, non-tender and non-distended Extremity no clubbing, cyanosis or edema Skin no rashes or lesions noted General Skin Exam: no breakdown Neuro oriented x3, CN's II-XII intact bilaterally, moves all extremities, no focal motor deficits and no sensory deficits noted Sensorium / Orientation: awake and alert Speech: speech normal Psych affect normal Assessment & Plan Assessment/Plan (1) Fever: PLAN: Plan 1. Fever of unknown origin-patient was seen by infectious diseases today, infectious diseases cannot verify that the patient is actually infected, nonetheless they have elected to keep the patient on Zosyn for 5 to 7 days and wait for blood cultures. #2 generalized debility-patient will be seen by PT and OT, it is likely she will need to return to a [facility] facility for continued rehab services due to weakness. #3 Minor elevation in liver enzymes-etiology unclear, I will repeat the patient's liver profile tomorrow #4 elevated troponin-not indicating a non-STEMI, I feel these elevations are not significant #5 elevated TSH-I will obtain a T3 and T4, patient is on Synthroid #6 essential hypertension-patient is on metoprolol, blood pressure medications will be adjusted as needed #7 thrush-patient is currently on Diflucan #8 hyperlipidemia-patient is on atorvastatin Total clinical time spent by myself addressing the patient's medical issues, reviewing all of her data, and collaborating with patient's care team: 25 minutes Charges/Coding Visit Charges Inpatient E&M: 23235 Subs Hosp L1
[2023-05-04 18:17] VITALS: BP 131/72; PULSE 100; RESP 15; TEMP 36.6; O2SAT 99
[2023-05-04 18:44] LABS: Iron 16 ug/dL (50-170); Iron Binding Capacity,Total 217 ug/dL (250-450); PERCENT IRON SATURATION 7.4 % (15.0-55.0)
[2023-05-04] MEDS: MELATONIN 3 MG TABLET PO (21:04)
[2023-05-04] MEDS: Atorvastatin Calcium 10 MG Tablet PO (21:04)
[2023-05-04] MEDS: BENZOCAINE/MENTHOL 1 LOZENGE MUCOUS MEM (21:04)
[2023-05-04] MEDS: Mirtazapine 15 MG Tablet 7.5 MG PO (21:04)
[2023-05-04] MEDS: Doxepin Hydrochloride 10 MG Capsule PO (21:04)
[2023-05-04] MEDS: Gabapentin 300 MG Capsule PO (21:04)
[2023-05-04 21:10] VITALS: BP 126/80; PULSE 103; RESP 18; TEMP 36.7; O2SAT 100
[2023-05-05 01:29] VITALS: BMI 22.4
[2023-05-05 03:35] VITALS: BP 129/72; PULSE 99; RESP 18; TEMP 35.9; O2SAT 97
[2023-05-05] MEDS: Levothyroxine 88 MCG Tablet PO (03:39)
[2023-05-05] MEDS: Piperacil/Tazobactam 3.375 GM in 0.9% Normal Saline (50mL MB+) 50 ML IV ×3 (04:46→21:06)
[2023-05-05 06:46] LABS: AST(SGOT) 53 U/L (15-37); Alanine Aminotransfer ALT/SGPT 59 U/L (13-56); Albumin, Serum 1.9 g/dL (3.2-5.0); Alkaline Phosphatase 130 U/L (45-117); Bilirubin, Direct 0.15 mg/dL (0.00-0.30); Ferritin 492 ng/mL (8-252); Globulin 3.5 g/dL (2.2-4.2); Protein, Total 5.4 g/dL (6.4-8.2); T4 Total, Thyroxin 6.1 ug/dL (4.8-13.9)
[2023-05-05] MEDS: 0.9% Saline Lock 10 ML Syringe IV (08:43)
[2023-05-05] MEDS: Ondansetron 4 MG/2 ML Vial IV (08:43)
[2023-05-05 08:52] VITALS: BP 118/73; PULSE 102; RESP 14; TEMP 36.8; O2SAT 97
[2023-05-05] MEDS: Pantoprazole Sodium 40 MG in 0.9% Normal Saline (100mL MB+) 100 ML 330 MG IV ×2 (09:16→21:03)
[2023-05-05] MEDS: Acetaminophen/Butalbital/Caffe 1 Tablet 2 TABLET PO ×2 (10:54→21:05)
[2023-05-05] MEDS: Fluconazole 100 MG Tablet PO (10:56)
[2023-05-05] MEDS: Iron Polysaccharide Complex 150 MG CAPSULE PO (10:56)
[2023-05-05] MEDS: Aspirin E.C. 81 MG Tablet PO (10:57)
[2023-05-05] MEDS: Ensure Plus High Protein 120 ML LIQUID PO ×4 (10:57→21:09)
[2023-05-05] MEDS: TAFAMIDIS 61 MG CAPSULE PO (10:57)
[2023-05-05 10:58] VITALS: BP 118/73; PULSE 102
[2023-05-05] MEDS: Metoprolol(XL)Succ 25 MG Tablet 12.5 MG PO (10:58)
[2023-05-05] MEDS: 0.9% Normal Saline (1000mL) 1,000 ML 50 ML IV (11:02)
--- NOTE | 2023-05-05 13:15 | PCM.PN.HOSP ---
Reason for Visit Reason for Visit: Diagnoses Herpesviral infection, unspecified (05/03/23) Candidal stomatitis (05/03/23) Hypothyroidism, unspecified (05/03/23) Organ-limited amyloidosis (05/03/23) Hyperkalemia (05/03/23) Other hypertrophic cardiomyopathy (05/03/23) Cardiomyopathy in diseases classified elsewhere (05/03/23) Disorder of gingiva and edentulous alveolar ridge, unspecified (05/03/23) Pyogenic arthritis, unspecified (05/03/23) Tachycardia, unspecified (05/03/23) Fever, unspecified (05/03/23) Weakness (05/03/23) Abnormal levels of other serum enzymes (05/03/23) Other specified abnormal findings of blood chemistry (05/03/23) Subjective Subjective Patient was seen and examined today, I had her Britton removed today, she has been afebrile since yesterday. I talked at length with patient's daughter by phone today to update her on her medical condition. Gastroenterology feels that his safe to restart the patient's Lovenox, but patient has a fibrinogen deficiency and has had a history of blood clots before in the past. Objective Data Objective Data Vital Signs: Vital Signs Temp Pulse Resp BP Pulse Ox O2 Del Method 98.2 F 102 H 14 118/73 97 Room Air 05/05/23 08:52 05/05/23 10:58 05/05/23 08:52 05/05/23 10:58 05/05/23 08:52 05/05/23 09:03 Oxygen Delivery Method Room Air Weight: 61 kg Body Mass Index (BMI) 22.4 Intake & Output: Intake and Output for Last 24 Hours 05/03/23 05/04/23 05/05/23 23:59 23:59 23:59 Intake Total 1210 / 1210 2721.67 / 2721.67 1407.5 / 1407.5 Output Total 650 / 650 1500 / 1500 750 / 750 Balance 560 / 560 1221.67 / 1221.67 657.5 / 657.5 Lab / Micro Data 05/04/23 07:05 05/04/23 07:05 Labs: Laboratory Results - last 24 hr 05/03/23 15:30: Diff Path Review Reviewed 05/04/23 07:05: Absolute Neuts (auto) 8.7 H, Absolute Lymphs (auto) 0.53 L, Diff Path Review Reviewed, Iron 16 L, TIBC 217 L, Iron Saturation 7.4 L 05/05/23 05:50: Ferritin 492 H, Total Bilirubin 0.40, Direct Bilirubin 0.15, AST 53 H, ALT 59 H, Alkaline Phosphatase 130 H, Total Protein 5.4 L, Albumin 1.9 L, Globulin 3.5, Thyroxine (T4) 6.1 Micro: Microbiology 05/03/23 15:28 Urine, Clean Catch Urine Culture - Preliminary Yeast Like Organism GNR Poss Pseudomonas sp 05/03/23 15:25 Blood Culture (Wb) - Left Wrist Blood Culture - Preliminary No growth in 48 hours. 05/03/23 15:20 Blood Culture (Wb) - Anticubital Right Blood Culture - Preliminary No growth in 48 hours. 05/03/23 20:10 Mucosa - Nasopharyngeal Respiratory Panel (PCR) - Final 05/03/23 15:28 Mucosa - Nose SARS-CoV-2, Influenza & RSV (PCR) - Final Physical Exam Narrative alert, oriented x3, no apparent distress and average body habitus General Appearance: cooperative, well kempt and well developed Orientation / Consciousness: awake, oriented to person, oriented to place and oriented to time HEENT normocephalic, head/scalp atraumatic and moist oral mucous membranes Eyes PERRL, EOMs intact bilaterally and conjunctivae normal Neck supple, no JVD, thyroid normal and no carotid bruits General: trachea midline Resp normal respiratory effort, no retractions, no use of accessory muscles and clear to auscultation bilaterally Auscultation: Negative for rales, rhonchi or wheezes Cardio regular rate, regular rhythm, S1 normal heart sound, S2 normal heart sound, no murmurs, no rub and no gallops GI normal to inspection, nondistended, normoactive bowel sounds, soft to palpation, non-tender and non-distended Extremity no clubbing, cyanosis or edema Skin no rashes or lesions noted General Skin Exam: no breakdown Neuro oriented x3, CN's II-XII intact bilaterally, moves all extremities, no focal motor deficits and no sensory deficits noted Sensorium / Orientation: awake and alert Speech: speech normal Psych affect normal Assessment & Plan Assessment/Plan (1) Fever: PLAN: Plan 1. Fever of unknown origin-patient is now afebrile, urine culture grew out possible Pseudomonas and low numbers, patient remains on Zosyn per ID at this time #2 generalized debility-patient will be seen by PT and OT, it is likely she will need to return to a nursing home facility for continued rehab services due to weakness. #3 Minor elevation in liver enzymes-etiology unclear, I will repeat the patient's liver profile tomorrow #4 elevated troponin-not indicating a non-STEMI, I feel these elevations are not significant #5 elevated TSH-I will obtain a T3 and T4, patient is on Synthroid #6 essential hypertension-patient is on metoprolol, blood pressure medications will be adjusted as needed #7 thrush-patient is currently on Diflucan #8 hyperlipidemia-patient is on atorvastatin #9 hypofibrinogenemia-patient will restart Lovenox tonight Total clinical time spent by myself addressing the patient's medical issues, reviewing all of her data, and collaborating with patient's care team: 25 minutes Charges/Coding Visit Charges Inpatient E&M: 94010 Subs Hosp L1
[2023-05-05 13:20] LABS: Absolute Lymphocyte Count 1.19 X10^3/uL (0.83-4.51); Absolute Neutrophil Count 6.8 X10^3/uL (2.0-7.7); Basophil# 0.02 X10^3/uL; Basophil% 0.2 % (0-1); Eosinophil# 0.11 X10^3/uL; Eosinophils% 1.2 % (0-5); Hematocrit 27.3 % (37-47); Hemoglobin 8.5 g/dL (12.0-15.0); Lymphocyte # 1.19 X10^3/ul (0.83-4.51); Lymphocyte % 12.5 % (19-41); Mean Corp Hgb Conc 31.1 g/dL (32-36); Mean Corpuscular Hgb 28.4 pg (27.0-32.0); Mean Corpuscular Volume 91.3 fL (81-99); Mean Platelet Vol. 9.1 fl (6.2-12.0); Monocyte# 1.02 X10^3/uL; Monocyte% 10.7 % (0-10); NRBC Flagged by Analyzer 0 % (0-5); Neutrophil # 6.84 X10^3/uL (2.7-7.7); Neutrophil % 71.5 % (47-70); Platelet Count 204 K/mm3 (150-450); RBC Distribution Width CV 16.9 % (11.6-14.6); RBC Distribution Width SD 56.7 fl (35.1-43.9); Red Blood Count 2.99 M/mm3 (4.2-5.4); White Blood Count 9.6 K/mm3 (4.4-11.0)
[2023-05-05 13:42] LABS: Anion Gap 4 (5-15); BUN 22 mg/dL (7-18); BUN/Creat Ratio 22.9 RATIO (10-20); Calcium,Total 8.1 mg/dL (8.5-10.1); Chloride 112 mmol/L (98-107); Creatinine, Serum 0.96 mg/dL (0.55-1.02); EST Glomerular Filtration Rate 59 mL/min (>60); Est Glom Filt Rate - Afr Amer 71 mL/min (>60); Estimated Creatinine Clearance 40.66 ml/min; Glucose 175 mg/dL (74-106); Potassium 4.4 mmol/L (3.5-5.1); Sodium Level 137 mmol/L (136-145)
[2023-05-05 15:35] VITALS: BP 100/71; PULSE 94; RESP 16; TEMP 36.9; O2SAT 99
--- NOTE | 2023-05-05 16:42 | PN.GI_ITS ---
Subjective Subjective Patient is not having any more fever or chills. She says she feels a little bit better. Objective Data Objective Data Vital Signs: Vital Signs Temp Pulse Resp BP Pulse Ox O2 Del Method 98.4 F 94 16 100/71 99 Room Air 05/05/23 15:35 05/05/23 15:35 05/05/23 15:35 05/05/23 15:35 05/05/23 15:35 05/05/23 15:43 Oxygen Delivery Method Room Air Weight: 134 lb 7.712 oz Body Mass Index (BMI) 22.4 Intake & Output: Intake and Output for Last 24 Hours 05/03/23 05/04/23 05/05/23 23:59 23:59 23:59 Intake Total 1210 / 1210 2721.67 / 2721.67 1882.5 / 1882.5 Output Total 650 / 650 1500 / 1500 750 / 750 Balance 560 / 560 1221.67 / 1221.67 1132.5 / 1132.5 Lab / Micro Data 05/05/23 13:06 05/05/23 13:06 Labs: Laboratory Results - last 24 hr 05/04/23 07:05: Iron 16 L, TIBC 217 L, Iron Saturation 7.4 L 05/05/23 05:50: Ferritin 492 H, Total Bilirubin 0.40, Direct Bilirubin 0.15, AST 53 H, ALT 59 H, Alkaline Phosphatase 130 H, Total Protein 5.4 L, Albumin 1.9 L, Globulin 3.5, Thyroxine (T4) 6.1 05/05/23 13:06: WBC 9.6, RBC 2.99 L, Hgb 8.5 L, Hct 27.3 L, MCV 91.3, MCH 28.4, MCHC 31.1 L, RDW Std Deviation 56.7 H, RDW Coeff of Rashmi 16.9 H, Plt Count 204, MPV 9.1, Immature Gran % (Auto) 3.900 H, Neut % (Auto) 71.5 H, Lymph % (Auto) 12.5 L, [place] % (Auto) 10.7 H, Eos % (Auto) 1.2, Baso % (Auto) 0.2, Absolute Neuts (auto) 6.8, Absolute Lymphs (auto) 1.19, Nucleated RBC % 0, Sodium 137, Potassium 4.4, Chloride 112 H, Carbon Dioxide 21.0, Anion Gap 4 L, BUN 22 H, Creatinine 0.96, Estim Creat Clear Calc 40.66, Est GFR (MDRD) Af Amer 71, Est GFR (MDRD) Non-Af 59 L, BUN/Creatinine Ratio 22.9 H, Glucose 175 H, Calcium 8.1 L Micro: Microbiology 05/03/23 15:28 Urine, Clean Catch Urine Culture - Preliminary Yeast Like Organism GNR Poss Pseudomonas sp 05/03/23 15:25 Blood Culture (Wb) - Left Wrist Blood Culture - Preliminary No growth in 48 hours. 05/03/23 15:20 Blood Culture (Wb) - Anticubital Right Blood Culture - Preliminary No growth in 48 hours. 05/03/23 20:10 Mucosa - Nasopharyngeal Respiratory Panel (PCR) - Final 05/03/23 15:28 Mucosa - Nose SARS-CoV-2, Influenza & RSV (PCR) - Final Physical Exam Narrative alert, oriented x3, no apparent distress and average body habitus General Appearance: cooperative, well kempt and well developed Orientation / Consciousness: awake, oriented to person, oriented to place and oriented to time HEENT normocephalic, head/scalp atraumatic and moist oral mucous membranes Eyes PERRL, EOMs intact bilaterally and conjunctivae normal Neck supple, no JVD, thyroid normal and no carotid bruits General: trachea midline Resp normal respiratory effort, no retractions, no use of accessory muscles and clear to auscultation bilaterally Auscultation: Negative for rales, rhonchi or wheezes Cardio regular rate, regular rhythm, S1 normal heart sound, S2 normal heart sound, no murmurs, no rub and no gallops GI normal to inspection, nondistended, normoactive bowel sounds, soft to palpation, non-tender and non-distended Extremity no clubbing, cyanosis or edema Skin no rashes or lesions noted General Skin Exam: no breakdown Neuro oriented x3, CN's II-XII intact bilaterally, moves all extremities, no focal motor deficits and no sensory deficits noted Sensorium / Orientation: awake and alert Speech: speech normal Psych affect normal Assessment & Plan Assessment/Plan (1) Generalized weakness: (2) Tachycardia: (3) Thrush: (4) Hypothyroidism: (5) Hypertrophic cardiomyopathy: (6) 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 She is currently being seen by infectious disease -Given the reported fever, elevated white blood cell count in conjunction with recent group A strep septic arthritis of shoulder still on antibiotics, possible mastoiditis, oral HSV outbreak, and ?ashli UTI ID consulted for additional input #GERD and GIB w/ FOBT positive -IV PPI -Hemoglobin has been stable over the past several blood draws however patient has been weak, BUN increasing and patient has FOBT positive -She is not having any abdominal pain and her hemoglobin seems to be stable at this time. 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 -Recommend hold off on endoscopy at this time. If hemoglobin continues to trend down then she can get an upper endoscopy. She was okay with this plan. 05/05/2023-patient's hemoglobin is slightly down today. She has restarted back on Lovenox therapy. She does have a history of recent GI bleed from duodenal ulcer. Continue to follow hemoglobin. Keep n.p.o. past midnight on 05/05/2023 as she will likely need an upper endoscopy on 05/06/2023.
[2023-05-05] MEDS: Tamsulosin HCl 0.4 MG Capsule 0.400000000000000022 MG PO (17:26)
[2023-05-05] MEDS: Enoxaparin 60 MG/0.6 ML Syringe SC (21:05)
[2023-05-05] MEDS: Gabapentin 300 MG Capsule PO (21:05)
[2023-05-05] MEDS: Mirtazapine 15 MG Tablet 7.5 MG PO (21:06)
[2023-05-05] MEDS: Doxepin Hydrochloride 10 MG Capsule PO (21:06)
[2023-05-05] MEDS: Atorvastatin Calcium 10 MG Tablet PO (21:06)
[2023-05-05] MEDS: 0.9% Normal Saline (1000mL) 1,000 ML 100 ML IV (21:09)
[2023-05-05 21:11] VITALS: BP 129/73; PULSE 93; RESP 15; TEMP 37.4; O2SAT 97
[2023-05-06] VITALS (7 sets, daily range): BP systolic 116–125; BP diastolic 60–70; PULSE 74–92; RESP 15–18; TEMP 35.9–38.2; O2SAT 93–96; BMI 22.4
[2023-05-06] MEDS: Piperacil/Tazobactam 3.375 GM in 0.9% Normal Saline (50mL MB+) 50 ML IV ×3 (05:08→21:02)
[2023-05-06] MEDS: 0.9% Normal Saline (1000mL) 1,000 ML 100 ML IV ×2 (05:08→17:22)
[2023-05-06] MEDS: Levothyroxine 88 MCG Tablet PO (05:08)
[2023-05-06 06:45] LABS: Hematocrit 24.4 % (37-47); Hemoglobin 7.6 g/dL (12.0-15.0); Mean Corp Hgb Conc 31.1 g/dL (32-36); Mean Corpuscular Hgb 28.4 pg (27.0-32.0); Mean Platelet Vol. 9.6 fl (6.2-12.0); POSITIVE COUNT YES; POSITIVE MORPHOLOGY YES; Platelet Count 204 K/mm3 (150-450); RBC Distribution Width SD 55.8 fl (35.1-43.9); Red Blood Count 2.68 M/mm3 (4.2-5.4); White Blood Count 6.7 K/mm3 (4.4-11.0)
[2023-05-06 06:47] LABS: Differential Indicated MANUAL DIFF
[2023-05-06 07:27] LABS: Lymphocyte 10 % (19-41); Monocyte 3 % (0-10); Myelocyte 1 % (0-0); Neutrophil-Band 1 % (0-5); Total Cells Counted 100 (MANUAL DIFF)
[2023-05-06 07:28] LABS: Neutrophil-Segmented 84 % (47-70)
[2023-05-06 07:29] LABS: Eosinophil 1 % (0-5)
[2023-05-06 07:30] LABS: Absolute Neutrophil Count 5.7 X10^3/uL (2.0-7.7); Platelet Estimate ADEQUATE (ADEQ); Red Cell Morphology NORM C+C NORMAL (NORM C&C)
[2023-05-06 07:31] LABS: Absolute Lymphocyte Count 0.67 X10^3/uL (0.83-4.51)
[2023-05-06 07:53] LABS: AST(SGOT) 62 U/L (15-37); Alanine Aminotransfer ALT/SGPT 55 U/L (13-56); Albumin, Serum 1.6 g/dL (3.2-5.0); Alkaline Phosphatase 125 U/L (45-117); Anion Gap 5 (5-15); BUN 18 mg/dL (7-18); Bilirubin, Direct 0.09 mg/dL (0.00-0.30); Calcium,Total 7.9 mg/dL (8.5-10.1); Chloride 114 mmol/L (98-107); Creatinine, Serum 0.86 mg/dL (0.55-1.02); EST Glomerular Filtration Rate 67 mL/min (>60); Est Glom Filt Rate - Afr Amer 82 mL/min (>60); Estimated Creatinine Clearance 45.38 ml/min; Globulin 3.4 g/dL (2.2-4.2); Glucose 95 mg/dL (74-106); Potassium 4.3 mmol/L (3.5-5.1); Sodium Level 139 mmol/L (136-145)
--- NOTE | 2023-05-06 08:30 | PN.HOSP_ITS ---
Reason for Visit Reason for Visit: Diagnoses Herpesviral infection, unspecified (05/03/23) Candidal stomatitis (05/03/23) Hypothyroidism, unspecified (05/03/23) Organ-limited amyloidosis (05/03/23) Hyperkalemia (05/03/23) Other hypertrophic cardiomyopathy (05/03/23) Cardiomyopathy in diseases classified elsewhere (05/03/23) Disorder of gingiva and edentulous alveolar ridge, unspecified (05/03/23) Pyogenic arthritis, unspecified (05/03/23) Tachycardia, unspecified (05/03/23) Fever, unspecified (05/03/23) Weakness (05/03/23) Abnormal levels of other serum enzymes (05/03/23) Other specified abnormal findings of blood chemistry (05/03/23) Subjective Subjective , Hemoglobin dropped again to 7.6, I will repeat the patient's labs this afternoon. I examined the patient's ears with an otoscope today, TMs appear dull but there is no cerumen blocking the ear canal. I am not sure the reason for her decreased hearing. Objective Data Objective Data Vital Signs: Vital Signs Temp Pulse Resp BP Pulse Ox O2 Del Method 97.5 F L 92 16 122/60 H 96 Room Air 05/06/23 03:11 05/06/23 03:11 05/06/23 03:11 05/06/23 03:11 05/06/23 03:11 05/06/23 03:43 Oxygen Delivery Method Room Air Weight: 61 kg Body Mass Index (BMI) 22.4 Intake & Output: Intake and Output for Last 24 Hours 05/04/23 05/05/23 05/06/23 23:59 23:59 23:59 Intake Total 2721.67 / 2721.67 3342.50 / 3342.50 848.33 / 848.33 Output Total 1500 / 1500 750 / 750 Balance 1221.67 / 1221.67 2592.50 / 2592.50 848.33 / 848.33 Lab / Micro Data 05/06/23 05:44 05/06/23 05:44 Labs: Laboratory Results - last 24 hr 05/05/23 13:06: WBC 9.6, RBC 2.99 L, Hgb 8.5 L, Hct 27.3 L, MCV 91.3, MCH 28.4, MCHC 31.1 L, RDW Std Deviation 56.7 H, RDW Coeff of Rashmi 16.9 H, Plt Count 204, MPV 9.1, Immature Gran % (Auto) 3.900 H, Neut % (Auto) 71.5 H, Lymph % (Auto) 12.5 L, Yell % (Auto) 10.7 H, Eos % (Auto) 1.2, Baso % (Auto) 0.2, Absolute Neuts (auto) 6.8, Absolute Lymphs (auto) 1.19, Nucleated RBC % 0, Sodium 137, Potassium 4.4, Chloride 112 H, Carbon Dioxide 21.0, Anion Gap 4 L, BUN 22 H, Creatinine 0.96, Estim Creat Clear Calc 40.66, Est GFR (MDRD) Af Amer 71, Est GFR (MDRD) Non-Af 59 L, BUN/Creatinine Ratio 22.9 H, Glucose 175 H, Calcium 8.1 L 05/06/23 05:44: WBC 6.7, RBC 2.68 L, Hgb 7.6 L, Hct 24.4 L, MCV 91.0, MCH 28.4, MCHC 31.1 L, RDW Std Deviation 55.8 H, RDW Coeff of Rashmi 17.0 H, Plt Count 204, MPV 9.6, Neut % (Auto) Not Reportable, Absolute Neuts (auto) 5.7, Absolute Lymphs (auto) 0.67 L, Total Counted 100, Neutrophils % (Manual) 84 H, Band Neutrophils % 1, Lymphocytes % (Manual) 10 L, Monocytes % (Manual) 3, Eosinophils % (Manual) 1, Myelocytes % 1 H, Diff Path Review July, Platelet Estimate ADEQUATE, RBC Morphology NORM C+C, Sodium 139, Potassium 4.3, Chloride 114 H, Carbon Dioxide 20.0 L, Anion Gap 5, BUN 18, Creatinine 0.86, Estim Creat Clear Calc 45.38, Est GFR (MDRD) Af Amer 82, Est GFR (MDRD) Non-Af 67, BUN/Creatinine Ratio 21.0 H, Glucose 95, Calcium 7.9 L, Total Bilirubin 0.40, Direct Bilirubin 0.09, AST 62 H, ALT 55, Alkaline Phosphatase 125 H, Total Protein 5.0 L, Albumin 1.6 L, Globulin 3.4 Micro: Microbiology 02/01/24 15:28 Urine, Clean Catch Urine Culture - Preliminary Yeast Like Organism GNR Poss Pseudomonas sp 05/03/23 15:25 Blood Culture (Wb) - Left Wrist Blood Culture - Preliminary No growth in 48 hours. 05/03/23 15:20 Blood Culture (Wb) - Anticubital Right Blood Culture - Preliminary No growth in 48 hours. 05/03/23 20:10 Mucosa - Nasopharyngeal Respiratory Panel (PCR) - Final 05/03/23 15:28 Mucosa - Nose SARS-CoV-2, Influenza & RSV (PCR) - Final Physical Exam Const alert, oriented x3, no apparent distress and healthy appearing General Appearance: cooperative, well kempt and well developed Orientation / Consciousness: awake, oriented to person, oriented to place and oriented to time HEENT normocephalic and moist oral mucous membranes Eyes PERRL, EOMs intact bilaterally and conjunctivae normal Neck supple, no JVD, thyroid normal and no carotid bruits General: trachea midline Resp normal respiratory effort and clear to auscultation bilaterally Auscultation: Negative for rales, rhonchi or wheezes Cardio regular rate, regular rhythm, S1 normal heart sound, S2 normal heart sound, no rub and no gallops Cardio Narrative: 2/6 systolic murmur noted at the left sternal border and apex GI normal to inspection, nondistended, normoactive bowel sounds, soft to palpation, non-tender and non-distended Extremity no clubbing, cyanosis or edema Skin no rashes or lesions noted General Skin Exam: no breakdown Neuro oriented x3, CN's II-XII intact bilaterally, no focal motor deficits and no sensory deficits noted Sensorium / Orientation: awake and alert Speech: speech normal Psych affect normal Assessment & Plan Assessment/Plan (1) Generalized weakness: (2) Fever: PLAN: Plan 1. Fever of unknown origin-patient is now afebrile, urine culture grew out possible Pseudomonas and low numbers, patient remains on Zosyn per ID at this time #2 generalized debility-patient will be seen by PT and OT, it is likely she will need to return to a custodial facility for continued rehab services due to weakness. 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
[2023-05-06] MEDS: Aspirin E.C. 81 MG Tablet PO (08:39)
[2023-05-06] MEDS: Fluconazole 100 MG Tablet PO (08:39)
[2023-05-06] MEDS: Ensure Plus High Protein 120 ML LIQUID PO ×3 (08:41→17:24)
[2023-05-06] MEDS: Iron Polysaccharide Complex 150 MG CAPSULE PO (08:41)
[2023-05-06] MEDS: Metoprolol(XL)Succ 25 MG Tablet 12.5 MG PO (08:42)
[2023-05-06] MEDS: TAFAMIDIS 61 MG CAPSULE PO (08:45)
[2023-05-06] MEDS: Acetaminophen/Butalbital/Caffe 1 Tablet 2 TABLET PO ×2 (08:54→20:32)
[2023-05-06] MEDS: Pantoprazole Sodium 40 MG in 0.9% Normal Saline (100mL MB+) 100 ML 330 MG IV ×2 (08:55→20:32)
[2023-05-06 14:54] LABS: Hematocrit 23.8 % (37-47); Hemoglobin 7.5 g/dL (12.0-15.0)
[2023-05-06] MEDS: Tamsulosin HCl 0.4 MG Capsule 0.400000000000000022 MG PO (17:22)
[2023-05-06] MEDS: Mirtazapine 15 MG Tablet 7.5 MG PO (20:31)
[2023-05-06] MEDS: Atorvastatin Calcium 10 MG Tablet PO (20:31)
[2023-05-06] MEDS: Gabapentin 300 MG Capsule PO (20:31)
[2023-05-06] MEDS: Doxepin Hydrochloride 10 MG Capsule PO (20:31)
[2023-05-06] MEDS: 0.9% Normal Saline (250mL Bag) 250 ML 15 ML IV (21:02)
[2023-05-07] VITALS (11 sets, daily range): BP systolic 111–139; BP diastolic 60–73; PULSE 79–101; RESP 14–16; TEMP 36.4–36.9; O2SAT 97–99; BMI 22.6
[2023-05-07] MEDS: Piperacil/Tazobactam 3.375 GM in 0.9% Normal Saline (50mL MB+) 50 ML IV ×3 (05:38→20:08)
[2023-05-07 06:24] LABS: Absolute Lymphocyte Count 1.11 X10^3/uL (0.83-4.51); Absolute Neutrophil Count 4.1 X10^3/uL (2.0-7.7); Basophil# 0.02 X10^3/uL; Basophil% 0.3 % (0-1); Eosinophil# 0.13 X10^3/uL; Eosinophils% 2.1 % (0-5); Hematocrit 25.4 % (37-47); Hemoglobin 7.8 g/dL (12.0-15.0); Lymphocyte # 1.11 X10^3/ul (0.83-4.51); Lymphocyte % 17.6 % (19-41); Mean Corp Hgb Conc 30.7 g/dL (32-36); Mean Platelet Vol. 9.2 fl (6.2-12.0); Monocyte# 0.65 X10^3/uL; Monocyte% 10.3 % (0-10); NRBC Flagged by Analyzer 0 % (0-5); Neutrophil # 4.09 X10^3/uL (2.7-7.7); Neutrophil % 65.1 % (47-70); Platelet Count 210 K/mm3 (150-450); RBC Distribution Width CV 16.5 % (11.6-14.6); RBC Distribution Width SD 54.2 fl (35.1-43.9); Red Blood Count 2.79 M/mm3 (4.2-5.4); White Blood Count 6.3 K/mm3 (4.4-11.0)
[2023-05-07] MEDS: 0.9% Normal Saline (1000mL) 1,000 ML 75 ML IV (06:39)
[2023-05-07 06:46] LABS: Anion Gap 2 (5-15); BUN 13 mg/dL (7-18); BUN/Creat Ratio 17.7 RATIO (10-20); Calcium,Total 7.9 mg/dL (8.5-10.1); Chloride 112 mmol/L (98-107); Creatinine, Serum 0.73 mg/dL (0.55-1.02); EST Glomerular Filtration Rate 81 mL/min (>60); Est Glom Filt Rate - Afr Amer 97 mL/min (>60); Estimated Creatinine Clearance 48.79 ml/min; Glucose 96 mg/dL (74-106); Potassium 3.8 mmol/L (3.5-5.1); Sodium Level 137 mmol/L (136-145)
[2023-05-07] MEDS: Acetaminophen/Butalbital/Caffe 1 Tablet 2 TABLET PO ×3 (07:49→19:58)
--- NOTE | 2023-05-07 08:25 | PN.HOSP_ITS ---
Reason for Visit Reason for Visit: Diagnoses Herpesviral infection, unspecified (05/03/23) Candidal stomatitis (05/03/23) Hypothyroidism, unspecified (05/03/23) Organ-limited amyloidosis (05/03/23) Hyperkalemia (05/03/23) Other hypertrophic cardiomyopathy (05/03/23) Cardiomyopathy in diseases classified elsewhere (05/03/23) Disorder of gingiva and edentulous alveolar ridge, unspecified (05/03/23) Pyogenic arthritis, unspecified (05/03/23) Tachycardia, unspecified (05/03/23) Fever, unspecified (05/03/23) Weakness (05/03/23) Abnormal levels of other serum enzymes (05/03/23) Other specified abnormal findings of blood chemistry (05/03/23) Subjective Subjective Patient with hemoglobin decline over the last 24 hours prompting gastroenterology to pursue upper endoscopy with noted recurrent bleeding ulcer treated with laser probe. Discussed plan of care with diet restart and transition to oral high-dose twice daily PPI as well as sucralfate to which patient was amenable. Discussed patient's ongoing issues with decreased hearing bilaterally which started after she had a shoulder washout with septic arthritis and did discuss MRI findings which had mention mastoiditis bilaterally. Discussed case with ENT and they noted this certainly could just be with any fluid present that they would call at this but recommended continued IV antibi otic therapy and outpatient follow-up with potential ear tubes if ongoing issues with hearing. Patient denies fevers, chills, nausea, emesis, abdominal pain, chest pain or dyspnea. Objective Data Objective Data Vital Signs: Vital Signs Temp Pulse Resp BP Pulse Ox O2 Del Method 98.4 F 90 16 134/73 H 98 Room Air 05/07/23 07:54 05/07/23 07:54 05/07/23 07:54 05/07/23 07:54 05/07/23 07:54 05/07/23 08:02 Oxygen Delivery Method Room Air Weight: 136 lb 3.931 oz Body Mass Index (BMI) 22.6 Intake & Output: Intake and Output for Last 24 Hours 05/05/23 05/06/23 05/07/23 23:59 23:59 23:59 Intake Total 3342.50 / 3342.50 2768.33 / 2768.33 1050 / 1050 Output Total 750 / 750 Balance 2592.50 / 2592.50 2768.33 / 2768.33 1050 / 1050 Lab / Micro Data 05/07/23 04:17 05/07/23 04:17 Labs: Laboratory Results - last 24 hr 05/06/23 14:48: Hgb 7.5 L, Hct 23.8 L 05/07/23 04:17: WBC 6.3, RBC 2.79 L, Hgb 7.8 L, Hct 25.4 L, MCV 91.0, MCH 28.0, MCHC 30.7 L, RDW Std Deviation 54.2 H, RDW Coeff of Arshmi 16.5 H, Plt Count 210, MPV 9.2, Immature Gran % (Auto) 4.600 H, Neut % (Auto) 65.1, Lymph % (Auto) 17.6 L, [place] % (Auto) 10.3 H, Eos % (Auto) 2.1, Baso % (Auto) 0.3, Absolute Neuts (auto) 4.1, Absolute Lymphs (auto) 1.11, Nucleated RBC % 0, Sodium 137, Potassium 3.8, Chloride 112 H, Carbon Dioxide 23.0, Anion Gap 2 L, BUN 13, Creatinine 0.73, Estim Creat Clear Calc 48.79, Est GFR (MDRD) Af Amer 97, Est GFR (MDRD) Non-Af 81, BUN/Creatinine Ratio 17.7, Glucose 96, Calcium 7.9 L Micro: Microbiology 05/03/23 15:28 Urine, Clean Catch Urine Culture - Final Presumptive C albicans GNR Poss Pseudomonas sp 05/03/23 15:25 Blood Culture (Wb) - Left Wrist Blood Culture - Preliminary No growth in 48 hours. 05/03/23 15:20 Blood Culture (Wb) - Anticubital Right Blood Culture - Preliminary No growth in 48 hours. 05/03/23 20:10 Mucosa - Nasopharyngeal Respiratory Panel (PCR) - Final 05/03/23 15:28 Mucosa - Nose SARS-CoV-2, Influenza & RSV (PCR) - Final Physical Exam Narrative Physical Examination: General: Awake, alert, oriented x 3, despite complaints of hearing difficulties able to respond to questions and answering appropriately, voice level appropriate, remains cooperative, seated upright in the PCU bed, no acute dist ress. Skin: Normal color, normal turgor, no icterus, no cyanosis. HEENT: AT/NC, EOMI, PERRLA, mildly dry MM, oral thrush improving from initial description. Lungs:, Greater bases, appropriate effort, no rales, ronchi or wheezing. Heart: Regular rate and rhythm; no gallop, rub audible. Abdomen: Soft, NTTP, ND, hyperactive BS. Extremities: No cyanosis, clubbing, or edema. Neurological: Patient awake, alert, oriented as noted, cognitive function intact; pupils equally reactive to light and accommodation, cranial nerves II- XII grossly normal, moving all 4 extremities, no focal deficits, strength moderately global decrease secondary to acute presentation and underlying comorbidities. Psychiatric: Affect appears fatigued following discussion of diet allowance, no acute evidence of depressive or anxiety feelings. 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 1. Fever of unclear origin initially, possibly multifactorial noted gram- negative jodie possible Pseudomonas growth in urine however colony count only thousand to 10,000, unclear if source, presumptive C albicans (candiduria) greater than 100,000 thus could be etiology in addition to MRI with noted bilateral mastoiditis with recent history of group A streptococcal septic arthritis of the shoulder: Blood culture x 2 negative, 05/01/2023 urine culture with greater than 1000 presumptive C albicans, Pseudomonas 1000-10,000 pansensitive, SARS COVID/influenza/RSV negative, full respiratory viral panel negative, given urine patient had been maintained on IV Zosyn as well as addition 05/04/2023 of oral fluconazole, infectious disease consulted and following, has fortunately been now afebrile. PT/OT/case management consultation for discharge planning. Discussed with ENT and per their r ecommendation will continue abx therapy with planned outpatient re-evaluation if not improved for evaluation for possible ear tubes more likely per their discussion secondary to fluid present, not necessarily mastoiditis. 2. Acute GI Bleed w/ resultant Acute on Chronic Blood Loss Anemia with history of recent bleeding duodenal ulcer with recurrent evidence of bleedin05/03/2023 guaiac positive, gastroenterology consulted given hemoglobin trended downward, initially recommended to hold on endoscopy unless hemoglobin further trended downward with allowance of resumption of anticoagulation given fibrinogen deficiency however hemoglobin continued to trend down, 05/06/2023 hemoglobin 7.5, 05/07/2023 7.8, thus 05/07/23 Upper endoscope performed with noted oozing duodenal ulcer with visible vessel present to and treated with laser probe as well as a nonbleeding duodenal ulcers with no stigmata of bleeding but which was biopsied. From IV to oral high-dose Protonix twice daily for 3 months and initiated and continued on sucralfate 1 g p.o. twice daily for 4 weeks. Diet resumed 05/07/23 per GI clearance. Continued on anticoagulation. 3. Recent history of left septic shoulder arthritis with group A streptococcal organism: ID following, noted prior to current presentation, maintained on currently IV Zosyn although previously had washout and was placed on IV Rocephin at that time with transition to TCU on oral amoxicillin, defer to antibiotic changes per ID discretion. Encouraged continued follow-up with orthopedic surgery as previously arranged, shoulder usage per orthopedic surgery discr etion. 4. Mild transaminitis, unclear etiology: Patient with mildly elevated LFTs during presentation: 05/03/2023 AST/LT 59/75, alk phos 156, most recently 05/06/2023 AST/LT 62/55, alk phos 125, improving, unclear specific etiology, will continue to trend as needed. 5. Mildly elevated troponin, unclear significance: 05/03/2023 troponin 62, repeat 64, no concerning EKG changes, previous baseline troponin primarily 40 range, not consistent with NSTEMI, maintained on aspirin, statin, therapeutic Lovenox, metoprolol regimen. 6. Hx VTE (DVT, PE) with Hypofibrinogenemia: s/p IVC filter, complicated presentation given GI bleed component with also recent history of duodenal bleed, had been seen by gastroenterology and given primarily stable hemoglobin allowance of continued anticoagulant therapy, endoscopy as noted with continued high dose PPI, sucralafate regimen. 7. 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 Oral thrush: As noted maintained on oral fluconazole regimen as well as oral swish and swallow, multifactorial given concurrent as noted candiduria as above. 9. Hypertension: Continue home regimen including metoprolol, PRN hydralazine. 10. Hyperlipidemia: We will continue patient on statin therapy. 11. Hypothyroidism: We will continue patient on levothyroxine regimen. 12. Anxiety and depression: We will continue patient home Remeron regimen. 13. DVT prophylaxis: Maintain on therapeutic lovenox. Charges/Coding Visit Charges Inpatient E&M: 09361 Subs Hosp L3
[2023-05-07 08:29] LABS: International Normalized Ratio 1.4; Prothrombin Time (Protime)PT. 17.2 SECONDS (11.7-14.9)
[2023-05-07 08:31] LABS: Partial Thromboplast Time 50.9 Seconds (24.1-36.2)
[2023-05-07 08:51] LABS: T3 Total - Triiodothyronine 0.81 ng/mL (0.6-1.81)
[2023-05-07] MEDS: Pantoprazole Sodium 40 MG in 0.9% Normal Saline (100mL MB+) 100 ML 330 MG IV (09:31)
--- NOTE | 2023-05-07 10:10 | CASEMGMT ---
JING spoke with patient. SW asked patient if she plans on going back to TCU at d/c to resume her rehab. Patient said she does plan on going back to TCU. Plan: d/c back to TCU when medically ready. Alexandria MARTINS
[2023-05-07] MEDS: Lactated Ringers 1,000 ML 15 ML IV (11:00)
--- NOTE | 2023-05-07 12:00 | EGD_PTH ---
PATHOLOGY RESULTS PATIENT: KEYONNA VILLAGOMEZ LOC: [facility] U#:[id number] AGE/SX: 82/F ROOM: [facility] RE05/03/[address]: Dr. Bekah Rodrigues MD : [id number] BED: 1 DIS: 05/08/2023 SPEC #: [id number] RECD: 05/07/23 13:47 STATUS: NHUNG REAurelia #: [id number] BIB: 05/07/23 12:[address]: Gerard Addison DEPT: SURGICAL PATHOLOGY RECD BY: Francine Stone ENTERED: 05/07/23 14:01 SP TYPE: EGD BIOPSY OTHR DR: MD Dr. Radha Mckeon MD Dr. Mark Tereletsky, DO Dr. Paige Pierce, MD Dr. Robert Leininger, MD Tissues: Duodenum, NOS Procedures: Surgery Specimen Level IV Comments: @ Ordering doctor for SUIV edited from to @ by SONAL at 05/07/23 1518 @ Submitting doctor edited from to @ by SONAL at 05/07/23 1518 HEADER OPERATION: EGD with biopsy PRE-OP DIAGNOSIS: Acute GI bleed TISSUE SUBMITTED: Duodena ulcer biopsy MICROSCOPIC DIAGNOSIS Duodenal ulcer, biopsy: Fragments of duodenal mucosa with acute and chronic inflammation. See comment. GERALDINE:indra 05/08/2023 COMMENT Focal cryptitis and glandular distortion are noted. Correlation with clinical, endoscopic findings and appropriate follow up are necessary. MICROSCOPIC DESCRIPTION Slides are reviewed. GROSS DESCRIPTION Received in fixative is one container labeled with the patient's name and designated duodenal ulcer biopsy. The specimen consists of two irregular fragments of light rascon soft tissue that in aggregate measure 0.6 x 0.3 x 0.1 cm. The specimen is totally submitted in one cassette. / GERALDINE:indra 05/07/2023 TC:2 CPT: 55189
--- NOTE | 2023-05-07 12:26 | OP.EGD_ITS ---
Patient Name: Yris Julio Procedure Date: 05/07/2023 12:09 PM Date of : 1940 Age: 82 Procedure: Upper GI endoscopy Indications: Iron deficiency anemia, Melena Providers: Gerard Addison DO Medicines: Monitored Anesthesia Care Patient Profile: This is an 82 year old female. Refer to note in patient chart for documentation of history and physical. Patient has symptoms of acute epigastric abdominal pain. Complications: No immediate complications. Procedure: Pre-Anesthesia Assessment: - Prior to the procedure, a History and Physical was performed, and patient medications and allergies were reviewed. The risks and benefits of the procedure and the sedation options and risks were discussed with the patient. All questions were answered and informed consent was obtained. Patient identification and proposed procedure were verified by the physician in the pre-procedure area. Mental Status Examination: alert and oriented. CV Examination: normal. Prophylactic Antibiotics: The patient does not require prophylactic antibiotics. Prior Anticoagulants: The patient has taken no anticoagulant or antiplatelet agents. ASA Grade Assessment: IV - A patient with severe systemic disease that is a constant threat to life. After reviewing the risks and benefits, the patient was deemed in satisfactory condition to undergo the procedure. The anesthesia plan was to use monitored anesthesia care (MAC). Immediately prior to administration of medications, the patient was re-assessed for adequacy to receive sedatives. The heart rate, respiratory rate, oxygen saturations, blood pressure, adequacy of pulmonary ventilation, and response to care were monitored throughout the procedure. The physical status of the patient was re-assessed after the procedure. After obtaining informed consent, the endoscope was passed under direct vision. Throughout the procedure, the patient's blood pressure, pulse, and oxygen saturations were monitored continuously. The Endoscope was introduced through the mouth, and advanced to the second part of duodenum. The upper GI endoscopy was accomplished without difficulty. The patient tolerated the procedure well. Scope In: 12:14:56 PM Scope Out: 12:21:23 PM Total Procedure Duration Time 0 hours 6 minutes 27 seconds Findings: The examined esophagus was normal. No gross lesions were noted in the entire examined stomach. One oozing cratered duodenal ulcer with a visible vessel was found in the duodenal bulb. The lesion was 11 mm in largest dimension. Area was successfully injected with 5 mL of a 0.1 mg/mL solution of epinephrine for drug delivery. Coagulation for hemostasis using heater probe was successful. Estimated blood loss was minimal. Two non-bleeding linear duodenal ulcers with no stigmata of bleeding were found in the first portion of the duodenum. The largest lesion was 5 mm in largest dimension. Biopsies were taken with a cold forceps for histology. Verification of patient identification for the specimen was done. Estimated blood loss was minimal. Impression: - Normal esophagus. - No gross lesions in the entire stomach. - Oozing duodenal ulcer with a visible vessel. Injected. Treated with a heater probe. - Non-bleeding duodenal ulcers with no stigmata of bleeding. Biopsied. Recommendation: - [facility]. - Resume regular diet today. - Continue present medications. - Await pathology results. - Repeat upper endoscopy in 2 months for surveillance. - Use Protonix (pantoprazole) 40 mg PO BID for 3 months. - Use sucralfate tablets 1 gram PO BID for 4 weeks. Procedure Code(s): --- Professional --- 07006, 59, Esophagogastroduodenoscopy, flexible, transoral; with control of bleeding, any method 00387, Esophagogastroduodenoscopy, flexible, transoral; with biopsy, single or multiple 91362, 59,51, Esophagogastroduodenoscopy, flexible, transoral; with directed submucosal injection(s), any substance CPT copyright 2 [employer]. All rights reserved. The codes documented in this report are preliminary and upon vaudeville actor review may be revised to meet current compliance requirements. Gerard Addison DO 05/07/2023 12:26:06 PM This report has been signed electronically. Number of Addenda: 0 Note Initiated On: 05/07/2023 12:09 PM
--- NOTE | 2023-05-07 12:27 | OP.CCLET_ITS ---
05/07/2023 Radha Mcrae [address] [phone] Re : Upper GI endoscopy procedure for Yris Julio Dear Dr. Mcrae This procedure was performed on Sunday, May 07, 2023. My impressions and recommendations are as follows: Impressions : - Normal esophagus. - No gross lesions in the entire stomach. - Oozing duodenal ulcer with a visible vessel. Injected. Treated with a heater probe. - Non-bleeding duodenal ulcers with no stigmata of bleeding. Biopsied. Recommendations : - [facility]. - Resume regular diet today. - Continue present medications. - Await pathology results. - Repeat upper endoscopy in 2 months for surveillance. - Use Protonix (pantoprazole) 40 mg PO BID for 3 months. - Use sucralfate tablets 1 gram PO BID for 4 weeks. My findings are described in the full procedure note, which is enclosed. If I can be of further assistance, please feel free to contact me at . Sincerely, Gerard Addison, 05/07/2023 12:26:06 PM This report has been signed electronically.
[2023-05-07] MEDS: Aspirin E.C. 81 MG Tablet PO (13:30)
[2023-05-07] MEDS: Metoprolol(XL)Succ 25 MG Tablet 12.5 MG PO (13:30)
[2023-05-07] MEDS: Fluconazole 100 MG Tablet PO (13:30)
[2023-05-07] MEDS: Iron Polysaccharide Complex 150 MG CAPSULE PO (13:31)
[2023-05-07] MEDS: TAFAMIDIS 61 MG CAPSULE PO (13:31)
[2023-05-07] MEDS: Sucralfate 1 GM Tablet PO ×2 (13:48→16:57)
--- NOTE | 2023-05-07 14:20 | CHAPLAIN ---
Type of Pastoral Visit ___ Initial Visit _x__ Follow-up Visit ___ On-call Visit ___ General Patient Visit ___ Spiritual Assessment ___ Family Conference ___ Bereavement ___ Rapid Response ___ Code Blue ___ Other (describe below) Pastoral Care Referral From _x__ Patient _x__ Family ___ Nurse ___ Physician ___ Line Fisher ___ Electronic Page Makeup System Operator ___ Other (describe below) Sacrament/Intervention _x__ Active listening ___ Anointing ___ Alevism ___ Bereavement ___ Communion ___ Christal exploration ___ _x__ Life review _x__ Prayer ___ Reconciliation ___ Sacrament of Sick _x__ Supportive presence ___ Wedding ___ Other (describe below) Pastoral Comments patient was awake and alert at this visit; this undertaker helper has attempted to visit with this patient previously in TCU and was not awake or available at those times; pt acknowledges those attempts and states how glad she is for this opportunity today; pt gives some information about her illness but focuses mostly on the great support she receives, her hopes for her life and family, and her relaxed feeling about her life and needs right now; pt is complimentary about support for her situation; prayer is welcomed; Eucharistic paster supervisor enters the room at this time to give communion; enters the room at this time to talk with pt
[2023-05-07] MEDS: NYSTATIN 500,000 UNIT/5 ML UDC 500000 UNIT PO ×3 (15:09→19:57)
[2023-05-07] MEDS: Tamsulosin HCl 0.4 MG Capsule 0.400000000000000022 MG PO (17:33)
[2023-05-07] MEDS: Atorvastatin Calcium 10 MG Tablet PO (19:57)
[2023-05-07] MEDS: Mirtazapine 15 MG Tablet 7.5 MG PO (19:57)
[2023-05-07] MEDS: Enoxaparin 60 MG/0.6 ML Syringe SC (19:57)
[2023-05-07] MEDS: Gabapentin 300 MG Capsule PO (19:57)
[2023-05-07] MEDS: Pantoprazole Sodium 40 MG Tablet PO (19:58)
[2023-05-07] MEDS: Doxepin Hydrochloride 10 MG Capsule PO (19:58)
--- NOTE | 2023-05-07 19:58 | PCM.PN.ID ---
Physical Exam Narrative Feeling better, headache improved, no fever Const alert and no apparent distress Resp normal air movement and clear to auscultation bilaterally Cardio regular rate and regular rhythm GI soft to palpation, non-tender and non-distended Skin no rashes or lesions noted ID ID: Route of nutrition/ use of supplements: [] Nutritional Intake: [] IV Site: [] Britton Catheter: [] Assessment & Plan Assessment/Plan (1) Fever: PLAN: Low grade temp, MRI showed mastoiditis. Shoulder doing well. Cont empiric zosyn for now. On fluc for thrush, candiduria. Overall improving. will follow (2) Septic arthritis of shoulder, left:
[2023-05-07] MEDS: MELATONIN 3 MG TABLET PO (19:59)
[2023-05-07] MEDS: 0.9% Saline Lock 10 ML Syringe IV (20:05)
[2023-05-08 00:20] VITALS: BP 123/66; PULSE 83; RESP 16; TEMP 36.4; O2SAT 99
[2023-05-08 03:10] VITALS: BMI 22.6
[2023-05-08] MEDS: Piperacil/Tazobactam 3.375 GM in 0.9% Normal Saline (50mL MB+) 50 ML IV (05:12)
[2023-05-08] MEDS: Levothyroxine 88 MCG Tablet PO (05:16)
[2023-05-08] MEDS: Sucralfate 1 GM Tablet PO (05:17)
[2023-05-08 05:27] VITALS: BP 110/66; PULSE 85; RESP 14; TEMP 36; O2SAT 98
--- NOTE | 2023-05-08 06:26 | PCM.PN.HOSP ---
Reason for Visit Reason for Visit: Diagnoses Herpesviral infection, unspecified (05/03/23) Candidal stomatitis (05/03/23) Hypothyroidism, unspecified (05/03/23) Organ-limited amyloidosis (05/03/23) Hyperkalemia (05/03/23) Other hypertrophic cardiomyopathy (05/03/23) Cardiomyopathy in diseases classified elsewhere (05/03/23) Disorder of gingiva and edentulous alveolar ridge, unspecified (05/03/23) Pyogenic arthritis, unspecified (05/03/23) Tachycardia, unspecified (05/03/23) Fever, unspecified (05/03/23) Weakness (05/03/23) Abnormal levels of other serum enzymes (05/03/23) Other specified abnormal findings of blood chemistry (05/03/23) Subjective Subjective Patient without issues overnight per staff but when she awoke this AM she noted mild dizziness upon getting up to use the restroom but this resolved. Patient does have an issue per discussion with family of not having appropriate oral water intake and following encourage water by her son this morning she notes feeling improved. Orthostatic vital signs were obtained and unremarkable. Discussed patient with infectious disease and they were amenable for her transitioning to TCU. Patient and family also amenable for transition. Patient denies fevers, chills, nausea, emesis, abdominal pain, chest pain or dyspnea. Objective Data Objective Data Vital Signs: Vital Signs Temp Pulse Resp BP Pulse Ox O2 Del Method 96.8 F L 85 14 110/66 98 Room Air 05/08/23 05:27 05/08/23 05:27 05/08/23 05:27 05/08/23 05:27 05/08/23 05:27 05/08/23 05:27 Oxygen Delivery Method Room Air Weight: 136 lb 3.931 oz Body Mass Index (BMI) 22.6 Intake & Output: Intake and Output for Last 24 Hours 05/06/23 05/07/23 05/08/23 23:59 23:59 23:59 Intake Total 2768.33 / 2768.33 2427.5 / 2667.5 530 / 530 Balance 2768.33 / 2768.33 2427.5 / 2667.5 530 / 530 Lab / Micro Data 05/08/23 09:06 05/08/23 09:06 Labs: Laboratory Results - last 24 hr 05/05/23 05:50: Total T3 0.81 05/07/23 04:17: PT 17.2 H, INR 1.4, APTT 50.9 H, Sodium 137, Potassium 3.8, Chloride 112 H, Carbon Dioxide 23.0, Anion Gap 2 L, BUN 13, Creatinine 0.73, Estim Creat Clear Calc 48.79, Est GFR (MDRD) Af Amer 97, Est GFR (MDRD) Non-Af 81, BUN/Creatinine Ratio 17.7, Glucose 96, Calcium 7.9 L Micro: Microbiology 05/03/23 15:28 Urine, Clean Catch Urine Culture - Final Presumptive C albicans GNR Poss Pseudomonas sp 05/03/23 15:25 Blood Culture (Wb) - Left Wrist Blood Culture - Preliminary No growth in 48 hours. 05/03/23 15:20 Blood Culture (Wb) - Anticubital Right Blood Culture - Preliminary No growth in 48 hours. 05/03/23 20:10 Mucosa - Nasopharyngeal Respiratory Panel (PCR) - Final 05/03/23 15:28 Mucosa - Nose SARS-CoV-2, Influenza & RSV (PCR) - Final Physical Exam Narrative Physical Examination: General: Awake, alert, oriented x 3, remains interactive and although noted hearing deficit, interacting without issue and speech appropriate level, cooperative, seated upright in the PCU bed. Skin: Normal color, normal turgor, no icterus, no cyanosis. HEENT: AT/NC, EOMI, PERRLA, MMM, oral thrush resolved. Lungs: Mildly decreased, > bases, appropriate effort, no rales, ronchi or wheezing. Heart: Regular rate and rhythm; no gallop, rub audible. Abdomen: Soft, NTTP, ND, normal BS. Extremities: No cyanosis, clubbing, or edema. Neurological: Patient awake, alert, oriented as noted, cognitive function intact; pupils equally reactive to light and accommodation, cranial nerves II-XII grossly normal, moving all 4 extremities, no focal deficits, strength improving, moderately globally decreased secondary to acute presentation and underlying comorbidities. Psychiatric: Affect appears more interactive, smiling, no acute evidence of depressive or anxiety feelings. 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 1. Fever of unclear origin initially, possibly multifactorial noted gram-negative jodie possible Pseudomonas growth in urine however colony count only thousand to 10,000, unclear if source, presumptive C albicans (candiduria) greater than 100,000 thus could be etiology in addition to MRI with noted bilateral mastoiditis with recent history of group A streptococcal septic arthritis of the shoulder: Blood culture x 2 negative, 05/01/2023 urine culture with greater than 1000 presumptive C albicans, Pseudomonas 1000-10,000 pansensitive, SARS COVID/influenza/RSV negative, full respiratory viral panel negative, given urine patient had been maintained on IV Zosyn as well as addition 05/04/2023 of oral fluconazole, infectious disease consulted and following, has fortunately been now afebrile. PT/OT/case management consultation for discharge planning. Discussed with ENT and per their recommendation will continue abx therapy with planned outpatient re-evaluation if not improved for evaluation for possible ear tubes more likely per their discussion secondary to fluid present, not necessarily mastoiditis. 05/08/23 CBC w/ WBC 5.9, afebrile, discussed with ID and will plan transition to TCU with midline with continued IV Zosyn with stop date 05/18/23 to be cautious. Oral fluzonazole stopped 05/08/23 per ID. Will continue nystatin oral S/S for an additional 5 days. 2. Acute GI Bleed w/ resultant Acute on Chronic Blood Loss Anemia with history of recent bleeding duodenal ulcer with recurrent evidence of bleedin05/03/2023 guaiac positive, gastroenterology consulted given hemoglobin trended downward, initially recommended to hold on endoscopy unless hemoglobin further trended downward with allowance of resumption of anticoagulation given fibrinogen deficiency however hemoglobin continued to trend down, 05/06/2023 hemoglobin 7.5, 05/07/2023 7.8, thus 05/07/23 Upper endoscope performed with noted oozing duodenal ulcer with visible vessel present to and treated with laser probe as well as a nonbleeding duodenal ulcers with no stigmata of bleeding but which was biopsied. From IV to oral high-dose Protonix twice daily for 3 months and initiated and continued on sucralfate 1 g p.o. twice daily for 4 weeks. Diet resumed 05/07/23 per GI clearance. Continued on anticoagulation. 05/08/23 Hgb 7.7, similar, stable, will trend at TCU upon transition to be cautious with planned GI follow-up 4-6 weeks. 3. Recent history of left septic shoulder arthritis with group A streptococcal organism: ID following, noted prior to current presentation, maintained on currently IV Zosyn although previously had washout and was placed on IV Rocephin at that time with transition to TCU on oral amoxicillin. Given acute presentation upon admission transitioned to IV zosyn as noted with plan for stop date per ID 05/18/23. Encouraged continued follow-up with orthopedic surgery as previously arranged, shoulder usage per orthopedic surgery discretion. 4. Mild transaminitis, unclear etiology: Patient with mildly elevated LFTs during presentation: 05/03/2023 AST/LT 59/75, alk phos 156, most recently 05/06/2023 AST/LT 62/55, alk phos 125, improved. 5. Mildly elevated troponin, unclear significance: 05/03/2023 troponin 62, repeat 64, no concerning EKG changes, previous baseline troponin primarily 40 range, not consistent with NSTEMI, maintained on aspirin, statin, therapeutic Lovenox, metoprolol regimen. 6. Hx VTE (DVT, PE) with Hypofibrinogenemia: s/p IVC filter, complicated presentation given GI bleed component with also recent history of duodenal bleed, had been seen by gastroenterology and given primarily stable hemoglobin allowance of continued anticoagulant therapy, endoscopy as noted with continued high dose PPI, sucralafate regimen. 7. 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 8. Oral thrush: As noted maintained on oral fluconazole regimen w/ concurrent candiduria w/ stop date 05/08/23, will continue oral swish and swallow for an additional 5 days given improved oral appearance. 9. Hypertension: Continue home regimen including metoprolol, PRN hydralazine. 10. Hyperlipidemia: We will continue patient on statin therapy. 11. Hypothyroidism: We will continue patient on levothyroxine regimen. 12. Anxiety and depression: We will continue patient home Remeron regimen. 13. DVT prophylaxis: Maintain on therapeutic lovenox. Charges/Coding Visit Charges Inpatient E&M: 38147 Init Hosp L2
[2023-05-08 08:50] VITALS: BP 122/65; PULSE 77; RESP 14; TEMP 36.5; O2SAT 98
[2023-05-08 09:02] VITALS: BP 122/65; PULSE 77
[2023-05-08] MEDS: Iron Polysaccharide Complex 150 MG CAPSULE PO (09:02)
[2023-05-08] MEDS: Aspirin E.C. 81 MG Tablet PO (09:02)
[2023-05-08] MEDS: Metoprolol(XL)Succ 25 MG Tablet 12.5 MG PO (09:02)
[2023-05-08] MEDS: Fluconazole 100 MG Tablet PO (09:03)
[2023-05-08] MEDS: NYSTATIN 500,000 UNIT/5 ML UDC 500000 UNIT PO (09:03)
[2023-05-08] MEDS: Pantoprazole Sodium 40 MG Tablet PO (09:03)
[2023-05-08] MEDS: TAFAMIDIS 61 MG CAPSULE PO (09:04)
[2023-05-08 09:21] LABS: Absolute Lymphocyte Count 0.82 X10^3/uL (0.83-4.51); Absolute Neutrophil Count 4.3 X10^3/uL (2.0-7.7); Basophil# 0.02 X10^3/uL; Basophil% 0.3 % (0-1); Eosinophil# 0.13 X10^3/uL; Eosinophils% 2.2 % (0-5); Hematocrit 25.4 % (37-47); Hemoglobin 7.7 g/dL (12.0-15.0); Lymphocyte # 0.82 X10^3/ul (0.83-4.51); Lymphocyte % 13.8 % (19-41); Mean Corp Hgb Conc 30.3 g/dL (32-36); Mean Corpuscular Hgb 27.9 pg (27.0-32.0); Monocyte% 6.7 % (0-10); NRBC Flagged by Analyzer 0 % (0-5); Neutrophil # 4.34 X10^3/uL (2.7-7.7); Neutrophil % 73.1 % (47-70); Platelet Count 237 K/mm3 (150-450); RBC Distribution Width CV 17.2 % (11.6-14.6); RBC Distribution Width SD 56.8 fl (35.1-43.9); Red Blood Count 2.76 M/mm3 (4.2-5.4); White Blood Count 5.9 K/mm3 (4.4-11.0)
[2023-05-08 09:35] VITALS: BP 130/79; BP 133/76; BP 136/66; PULSE 74; PULSE 77; PULSE 86
[2023-05-08 09:35] LABS: Anion Gap 6 (5-15); BUN 12 mg/dL (7-18); BUN/Creat Ratio 13.6 RATIO (10-20); Calcium,Total 7.9 mg/dL (8.5-10.1); Chloride 112 mmol/L (98-107); Creatinine, Serum 0.88 mg/dL (0.55-1.02); EST Glomerular Filtration Rate 65 mL/min (>60); Est Glom Filt Rate - Afr Amer 79 mL/min (>60); Estimated Creatinine Clearance 44.35 ml/min; Glucose 192 mg/dL (74-106); Potassium 3.7 mmol/L (3.5-5.1); Sodium Level 140 mmol/L (136-145)
[2023-05-08 10:01] LABS: Pathologist Review Reviewed
--- NOTE | 2023-05-08 10:56 | PHA.DC_ITS ---
Pharmacy [place] Med Reconciliation Pharmacy Service has performed discharge medication reconciliation for this patient. The patient's discharge medication list was reviewed for discrepancies and discrepancies were resolved. Medications at Discharge Home Medications levothyroxine 88 mcg tablet 88 mcg PO DAILY THYROID 05/27/18 enoxaparin 60 mg/0.6 mL subcutaneous syringe (Lovenox) 60 mg subcut QHS BLOOD THINNER 09/25/18 aspirin 81 mg tablet,delayed release (Adult Aspirin Regimen) 81 mg PO DAILY HEART HEALTH 12/12/19 tafamidis 61 mg capsule 61 mg PO DAILY HEART FAILURE 12/12/19 cholecalciferol (vitamin D3) 125 mcg (5,000 unit) capsule 125 mcg PO DAILY SUPPLEMENT 04/15/20 metoprolol succinate 25 mg tablet,extended release 24 hr (Toprol XL) 12.5 mg PO DAILY BLOOD PRESSURE 07/13/22 vitamins A,C,G-bwqp-ykrbzv 4,296 mcg-226 mg-90 mg capsule (PreserVision AREDS) 1 cap PO BID EYE HEALTH 01/11/23 gabapentin 300 mg capsule 300 mg PO QHS NEUROPATHY 02/16/23 ondansetron 4 mg disintegrating tablet 4 mg PO Q8H PRN NAUSEA 04/04/23 MAGIC MOUTH WASH (BMX) 180 mL suspension 5 ml PO Q4H PRN Mouth pain #180 mL 04/20/23 benzocaine 6 mg-menthol 10 mg lozenges 1 salvatore mucous membrane Q2H Sore throat 04/20/23 diclofenac sodium 1 % topical gel (Voltaren Arthritis Pain) 2 g topical 4X/DAY Arthritis pain 04/20/23 pantoprazole 40 mg tablet,delayed release 40 mg PO BID Acid reflux 04/20/23 ascorbate calcium (vitamin C) 500 mg tablet 500 mg PO DAILY 05/03/23 atorvastatin 10 mg tablet (Lipitor) 10 mg PO QHS 05/03/23 calcium carbonate 200 mg calcium (500 mg) chewable tablet (Tums) 200 mg PO BID 05/03/23 doxepin 10 mg capsule 10 mg PO QHS 05/03/23 mirtazapine 7.5 mg tablet 7.5 mg PO QHS 05/03/23 nystatin 100,000 unit/gram topical powder 1 applic topical BID 05/03/23 polysaccharide iron complex 150 mg iron capsule (Ferrex) 150 mg PO DAILY 05/03/23 potassium chloride 20 mEq tablet,extended release 40 meq PO DAILY Supplement 05/03/23 acetaminophen 325 mg tablet 650 mg (2 x 325 mg) PO Q6H PRN PRN Pain 1-10 Or Fever >100.7 #0 tabs 05/08/23 melatonin 3 mg tablet 3 mg PO QHS PRN PRN Insomnia #0 tabs 05/08/23 nystatin 100,000 unit/mL oral suspension 500,000 unit (5 mL) PO 4X/DAY 5 days #0 mL 05/08/23 piperacillin-tazobactam 3.375 gram/50 mL dextrose(iso-os) IV piggyback (Zosyn) 3 .375 g (56.25 mL) IV Q8H 9 days 05/08/23 sennosides 8.6 mg-docusate sodium 50 mg tablet (Stool Softener-Stimulant Laxative) 2 tab PO BID PRN PRN Constipation #0 tabs 05/08/23 sucralfate 1 gram tablet 1 g PO BIDAC #0 tabs 05/08/23 tamsulosin 0.4 mg capsule 0.4 mg PO DAILY@1730 #0 caps 05/08/23
--- NOTE | 2023-05-08 10:56 | PCM.TXEXTCAR ---
Diet Diet Order/Speech Therapy: 05/07/23 12:26 Diet: Regular - General Type of Dietary Supplement:: Ensure Plus High Protein Is pt able to select menu?: Yes Diet Comments: 240mL chocolate ensure plus HP TID w/ meals Routine Orders/Code Status Enema Type: Fleetz Enema Frequency: Daily PRN Suppository Type: Dulcolax 10mg Suppository Frequency: Daily PRN Keep PO Greater than or Equal to (%): 92 Routine Lab Work: - (Repeat CBC, CMP in 3-5 days.) Code Status: Full Code Suggestions for Active Care Change Position every (hours): 2 Hours to sit in a chair: 6 Times a day to sit in chair: 3 Therapies Weight Bearing: Full weight bearing Physical Therapy: Eval and Treat Occupational Therapy: Eval and Treat Problem/Diagnosis (1) Fever: Status: Acute Code(s): R50.9 - Fever, unspecified Comment: Discharge Diagnoses: 1. Fever of unclear origin initially, possibly multifactorial noted gram-negative jodie possible Pseudomonas growth in urine however colony count only thousand to 10,000, unclear if source, presumptive C albicans (candiduria) greater than 100,000 thus could be etiology in addition to MRI with noted bilateral mastoiditis with recent history of group A streptococcal septic arthritis of the shoulder 2. Acute GI Bleed w/ resultant Acute on Chronic Blood Loss Anemia with history of recent bleeding duodenal ulcer with recurrent evidence of bleeding 3. Recent history of left septic shoulder arthritis with group A streptococcal organism 4. Mild transaminitis, unclear etiology, likely acute presentation #1 5. Mildly elevated troponin, unclear significance, jmproved 6. Hx VTE (DVT, PE) with Hypofibrinogenemia 7. 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 Oral thrush 9. Hypertension 10. Hyperlipidemia 11. Hypothyroidism 12. 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 1. Fever of unclear origin initially, possibly multifactorial noted gram-negative jodie possible Pseudomonas growth in urine however colony count only thousand to 10,000, unclear if source, presumptive C albicans (candiduria) greater than 100,000 thus could be etiology in addition to MRI with noted bilateral mastoiditis with recent history of group A streptococcal septic arthritis of the shoulder: Blood culture x 2 negative, 05/01/2023 urine culture with greater than 1000 presumptive C albicans, Pseudomonas 1000-10,000 pansensitive, SARS COVID/influenza/RSV negative, full respiratory viral panel negative, given urine patient had been maintained on IV Zosyn as well as addition 05/04/2023 of oral fluconazole, infectious disease consulted and following, has fortunately been now afebrile. PT/OT/case management consultation for discharge planning. Discussed with ENT and per their recommendation will continue abx therapy with planned outpatient re-evaluation if not improved for evaluation for possible ear tubes more likely per their discussion secondary to fluid present, not necessarily mastoiditis. 05/08/23 CBC w/ WBC 5.9, afebrile, discussed with ID and will plan transition to TCU with midline with continued IV Zosyn with stop date 05/18/23 to be cautious. Oral fluzonazole stopped 05/08/23 per ID. Will continue nystatin oral S/S for an additional 5 days. 2. Acute GI Bleed w/ resultant Acute on Chronic Blood Loss Anemia with history of recent bleeding duodenal ulcer with recurrent evidence of bleedin05/03/2023 guaiac positive, gastroenterology consulted given hemoglobin trended downward, initially recommended to hold on endoscopy unless hemoglobin further trended downward with allowance of resumption of anticoagulation given fibrinogen deficiency however hemoglobin continued to trend down, 05/06/2023 hemoglobin 7.5, 05/07/2023 7.8, thus 05/07/23 Upper endoscope performed with noted oozing duodenal ulcer with visible vessel present to and treated with laser probe as well as a nonbleeding duodenal ulcers with no stigmata of bleeding but which was biopsied. From IV to oral high-dose Protonix twice daily for 3 months and initiated and continued on sucralfate 1 g p.o. twice daily for 4 weeks. Diet resumed 05/07/23 per GI clearance. Continued on anticoagulation. 05/08/23 Hgb 7.7, similar, stable, will trend at TCU upon transition to be cautious with planned GI follow-up 4-6 weeks. 3. Recent history of left septic shoulder arthritis with group A streptococcal organism: ID following, noted prior to current presentation, maintained on currently IV Zosyn although previously had washout and was placed on IV Rocephin at that time with transition to TCU on oral amoxicillin. Given acute presentation upon admission transitioned to IV zosyn as noted with plan for stop date per ID 05/18/23. Encouraged continued follow-up with orthopedic surgery as previously arranged, shoulder usage per orthopedic surgery discretion. 4. Mild transaminitis, unclear etiology: Patient with mildly elevated LFTs during presentation: 05/03/2023 AST/LT 59/75, alk phos 156, most recently 05/06/2023 AST/LT 62/55, alk phos 125, improved. 5. Mildly elevated troponin, unclear significance: 05/03/2023 troponin 62, repeat 64, no concerning EKG changes, previous baseline troponin primarily 40 range, not consistent with NSTEMI, maintained on aspirin, statin, therapeutic Lovenox, metoprolol regimen. 6. Hx VTE (DVT, PE) with Hypofibrinogenemia: s/p IVC filter, complicated presentation given GI bleed component with also recent history of duodenal bleed, had been seen by gastroenterology and given primarily stable hemoglobin allowance of continued anticoagulant therapy, endoscopy as noted with continued high dose PPI, sucralafate regimen. 7. 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 8. Oral thrush: As noted maintained on oral fluconazole regimen w/ concurrent candiduria w/ stop date 05/08/23, will continue oral swish and swallow for an additional 5 days given improved oral appearance. 9. Hypertension: Continue home regimen including metoprolol, PRN hydralazine. 10. Hyperlipidemia: We will continue patient on statin therapy. 11. Hypothyroidism: We will continue patient on levothyroxine regimen. 12. Anxiety and depression: We will continue patient home Remeron regimen. 13. DVT prophylaxis: Maintain on therapeutic lovenox. Allergies/Procedures Done in Hospital Allergies Iodinated Contrast Media [Iodinated Contrast- Oral and IV Dye] Allergy (Severe, Verified 05/07/23 10:54) Hives iodine Allergy (Verified 05/07/23 10:54) Anaphylaxis Procedures: EGD and EKG Type of Care/Length of Stay Estimated LOS: Convalescent Care Less Than 30 days Type of Care Needed: Skilled Rehab Potential: Good Prognosis: Good Additional Orders/Day of Discharge Additional Orders: (1) Encourage HOB, (2) OOB to chair with all meals, (3) Fall precautions, (4) Assure takes time when getting up with positional changes, stages getting up, (5) Encourage appropriate oral water intake as per family ongoing issues and concerns from family about chronic dehydration as not taking water as should, (6) During recent presentation moss catheter had been placed secondary to transient retention but flomax started and this improved. Please attempt to de-escalate off flomax if able but monitor for recurrent urinary retention issues. Day of Discharge: 05/08/23 Dietary and Speech Recommendations Dietitian Recommendations/Changes: Continue regular diet. Will d/c ensure plus HP w/ medpass and offer 240mL chocolate flavor TID with meals instead as per pt request. Adjust ONS as needed. Discharge Plan Admission Admit Date/Time: 05/03/23 18:58 Primary Reason for Your Visit: Mastoiditis, Oral Thrush, Candiduria, Recent L shoulder septic arthritis Attending Provider: Bekah Rodrigues Primary Care Provider: Radha Mcrae Consulting Providers: Daquan Anthony; Jolene Adorno; Hari Garcia Instructions Additional Instructions / Restrictions: DISCHARGE ADDITIONAL INSTRUCTIONS/REVIEW: 1. Fever of unclear origin initially, possibly multifactorial noted gram-negative jodie possible Pseudomonas growth in urine however colony count only thousand to 10,000, presumptive C albicans (candiduria) greater than 100,000 as well as MRI with noted bilateral mastoiditis with recent history of group A streptococcal septic arthritis of the shoulder: Blood culture x 2 negative, 05/01/2023 urine culture w/ presumptive C albicans, Pseudomonas 1000-10,000 pansensitive, SARS COVID/influenza/RSV negative, full respiratory viral panel negative, maintained on IV Zosyn as well as addition 05/04/2023 of oral fluconazole discharged per ID on 05/08/23 given improvement. Will continue liquid nystatin S/S for an additional 5 days at TCU transition. Per Infectious disease IV zosyn will be continued until 05/18/23. Referral made for follow-up with ENT for re-evaluation given hearing deficits in the setting of mastoiditis. 2. Acute GI Bleed w/ resultant Acute on Chronic Blood Loss Anemia with history of recent bleeding duodenal ulcer with recurrent evidence of bleedin05/03/23 guaiac positive, gastroenterology consulted w/ 05/07/23 Upper endoscope performed with noted oozing duodenal ulcer with visible vessel present to and treated with laser probe as well as a nonbleeding duodenal ulcers with no stigmata of bleeding but which was biopsied. Will need to continue Protonix twice daily for 3 months and initiated and continued on sucralfate 1 g p.o. twice daily for 4 weeks. Continued on chronic anticoagulation which was cleared per GI. Plan GI follow-up in 4-6 weeks. 3. Recent history of left septic shoulder arthritis with group A streptococcal organism: ID following, noted prior to current presentation, maintained on currently IV Zosyn for above #1 as noted with stop date 05/18/23. Encourage continued follow-up with orthopedic surgery as previously arranged, shoulder usage per orthopedic surgery discretion. Discharge Orders/Prescriptions Prescriptions: New Zosyn in dextrose (iso-osm) 3.375 gram/50 mL piggyback 3.375 g IV Q8H 9 Days Rx Instructions: stop date 05/18/23 dx: mastoiditis weekly bmp and cbc. Fax to [phone]. Routine midline care per protocol. nystatin 100,000 unit/mL Suspension 500,000 unit PO 4X/DAY 5 Days Qty: 0 0RF acetaminophen 325 mg Tablet 650 mg PO Q6H PRN PRN (Reason: Pain 1-10 Or Fever >100.7) Qty: 0 0RF sucralfate 1 gram Tablet 1 g PO BIDAC Qty: 0 0RF sennosides-docusate sodium [Stool Softener-Stimulant Laxat] 8.6-50 mg Tablet 2 tab PO BID PRN PRN (Reason: Constipation) Qty: 0 0RF tamsulosin 0.4 mg Capsule 0.4 mg PO DAILY@1730 Qty: 0 0RF melatonin 3 mg Tablet 3 mg PO QHS PRN PRN (Reason: Insomnia) Qty: 0 0RF Continued enoxaparin [Lovenox] 60 mg/0.6 mL syringe 60 mg SC QHS Hold Instructions: pt unsure if taking or when to start? Patient Comments: To start taking on April 26, 2023. aspirin [Adult Aspirin Regimen] 81 mg tablet,delayed release (DR/EC) 81 mg PO DAILY tafamidis 61 mg capsule 61 mg PO DAILY cholecalciferol (vitamin D3) 125 mcg (5,000 unit) capsule 125 mcg PO DAILY metoprolol succinate [Toprol XL] 25 mg tablet extended release 24 hr 12.5 mg PO DAILY PreserVision AREDS 4,296 mcg-226 mg-90 mg capsule 1 cap PO BID levothyroxine 88 mcg tablet 88 mcg PO DAILY ondansetron 4 mg tablet,disintegrating 4 mg PO Q8H PRN (Reason: NAUSEA ) benzocaine-menthol 6-10 mg lozenge 1 salvatore mucous membrane Q2H diclofenac sodium [Voltaren Arthritis Pain] 1 % gel 2 g topical 4X/DAY MAGIC MOUTH WASH (BMX) 180 mL suspension 5 ml PO Q4H PRN Qty: 180 pantoprazole 40 mg tablet,delayed release (DR/EC) 40 mg PO BID polysaccharide iron complex [Ferrex 150] 150 mg iron capsule 150 mg PO DAILY atorvastatin [Lipitor] 10 mg tablet 10 mg PO QHS nystatin 100,000 unit/gram powder 1 applic topical BID mirtazapine 7.5 mg tablet 7.5 mg PO QHS doxepin 10 mg capsule 10 mg PO QHS calcium carbonate [Tums] 200 mg calcium (500 mg) tablet,chewable 200 mg PO BID ascorbate calcium (vitamin C) 500 mg tablet 500 mg PO DAILY gabapentin 300 mg capsule 300 mg PO QHS Rx Instructions: Take for 180 days Discontinued rosuvastatin 5 mg tablet 5 mg PO DAILY ondansetron [ondansetron] 4 mg tablet,disintegrating 4 mg PO Q8H PRN PRN (Reason: Nausea) Qty: 10 0RF acetaminophen 500 mg tablet 1,000 mg PO Q8H PRN PRN (Reason: pain) amoxicillin 500 mg capsule 1,000 mg PO BID Rx Instructions: Take for 14 days polyethylene glycol 3350 17 gram/dose powder 17 g PO DAILY senna 8.6 mg capsule 8.6 mg PO BID PRN (Reason: constipation) fluconazole [Diflucan] 100 mg tablet 100 mg PO DAILY No Action potassium chloride 20 mEq tablet extended release 40 meq PO DAILY Referrals / Follow Up: Radha Mcrae MD [Primary Care Provider] - (Follow-up within 1-2 weeks of hospital discharge to review admission.) Willis Montano MD [Med Staff - Active Staff] - (Please follow-up in 2-4 weeks to have hearing assessment given recent deficits in the setting of mastoiditis.) Gerard Addison DO [Med Staff - Active Staff] - (Follow-up in 4-6 weeks to review pathology and set-up repeat endoscopy. Call earlier if concerns.) Daquan Anthony MD [Med Staff - Active Staff] - (May follow-up as needed. If any concerns for oral thrush, candidiasis, septic shoulder or mastoiditis treatment.) Jaymie Mchugh PA [Med Staff - Adv Practice Prof] - (Please follow-up with Cardiology in 2-4 weeks to review admission, re-evaluation. May see cardiology [employer].) Disposition Disposition (needs filled in before D/C Order can be placed): Assisted Facility
--- NOTE | 2023-05-08 11:01 | PCM.DC.SUM ---
Providers Date of Admission: 05/03/23 Primary Care Physician: Dr. Radha Mcrae MD Consultations 05/03/23 19:58 Consult: Gastroenterology Routine Consulting Provider: Brandi Gastroenterology Reason for Consult: Recent GIB, weak, low BP, fobt positive again, hypercoaguable EMERGENT Consult: No Notified: Yes Date Notified: 05/04/23 Time Notified: 06:41 Method of Notification: Text Consult: Infectious Disease Routine Consulting Provider: Daquan Anthony Reason for Consult: Being treated for ?ashli uti, temp, inc wbc, rec septic shoulder, ?mastoi EMERGENT Consult: No Notified: Yes Date Notified: 05/04/23 Time Notified: 06:45 Method of Notification: Answering Service Comments:: ?mastoiditis on MRI in addition to above Reason For Visit: HYPOTENTION, FEVER, GEN WEAKNESS Diagnosis Discharge Diagnosis (1) Fever: Status: Acute Code(s): R50.9 - Fever, unspecified Plan: Discharge Diagnoses: 1. Fever of unclear origin initially, possibly multifactorial noted gram-negative jodie possible Pseudomonas growth in urine however colony count only thousand to 10,000, unclear if source, presumptive C albicans (candiduria) greater than 100,000 thus could be etiology in addition to MRI with noted bilateral mastoiditis with recent history of group A streptococcal septic arthritis of the shoulder 2. Acute GI Bleed w/ resultant Acute on Chronic Blood Loss Anemia with history of recent bleeding duodenal ulcer with recurrent evidence of bleeding 3. Recent history of left septic shoulder arthritis with group A streptococcal organism 4. Mild transaminitis, unclear etiology, likely acute presentation #1 5. Mildly elevated troponin, unclear significance, jmproved 6. Hx VTE (DVT, PE) with Hypofibrinogenemia 7. 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 Oral thrush 9. Hypertension 10. Hyperlipidemia 11. Hypothyroidism 12. Anxiety and depression Medications at Discharge Home Medications levothyroxine 88 mcg tablet 88 mcg PO DAILY THYROID 05/27/18 enoxaparin 60 mg/0.6 mL subcutaneous syringe (Lovenox) 60 mg subcut QHS BLOOD THINNER 09/25/18 aspirin 81 mg tablet,delayed release (Adult Aspirin Regimen) 81 mg PO DAILY HEART HEALTH 12/12/19 tafamidis 61 mg capsule 61 mg PO DAILY HEART FAILURE 12/12/19 cholecalciferol (vitamin D3) 125 mcg (5,000 unit) capsule 125 mcg PO DAILY SUPPLEMENT 04/15/20 metoprolol succinate 25 mg tablet,extended release 24 hr (Toprol XL) 12.5 mg PO DAILY BLOOD PRESSURE 07/13/22 vitamins A,C,B-wehr-jbxoln 4,296 mcg-226 mg-90 mg capsule (PreserVision AREDS) 1 cap PO BID EYE HEALTH 01/11/23 gabapentin 300 mg capsule 300 mg PO QHS NEUROPATHY 02/16/23 ondansetron 4 mg disintegrating tablet 4 mg PO Q8H PRN NAUSEA 04/04/23 MAGIC MOUTH WASH (BMX) 180 mL suspension 5 ml PO Q4H PRN Mouth pain #180 mL 04/20/23 benzocaine 6 mg-menthol 10 mg lozenges 1 salvatore mucous membrane Q2H Sore throat 04/20/23 diclofenac sodium 1 % topical gel (Voltaren Arthritis Pain) 2 g topical 4X/DAY Arthritis pain 04/20/23 pantoprazole 40 mg tablet,delayed release 40 mg PO BID Acid reflux 04/20/23 ascorbate calcium (vitamin C) 500 mg tablet 500 mg PO DAILY 05/03/23 atorvastatin 10 mg tablet (Lipitor) 10 mg PO QHS 05/03/23 calcium carbonate 200 mg calcium (500 mg) chewable tablet (Tums) 200 mg PO BID 05/03/23 doxepin 10 mg capsule 10 mg PO QHS 05/03/23 mirtazapine 7.5 mg tablet 7.5 mg PO QHS 05/03/23 nystatin 100,000 unit/gram topical powder 1 applic topical BID 05/03/23 polysaccharide iron complex 150 mg iron capsule (Ferrex) 150 mg PO DAILY 05/03/23 potassium chloride 20 mEq tablet,extended release 40 meq PO DAILY Supplement 05/03/23 acetaminophen 325 mg tablet 650 mg (2 x 325 mg) PO Q6H PRN PRN Pain 1-10 Or Fever >100.7 #0 tabs 05/08/23 melatonin 3 mg tablet 3 mg PO QHS PRN PRN Insomnia #0 tabs 05/08/23 nystatin 100,000 unit/mL oral suspension 500,000 unit (5 mL) PO 4X/DAY 5 days #0 mL 05/08/23 piperacillin-tazobactam 3.375 gram/50 mL dextrose(iso-os) IV piggyback (Zosyn) 3.375 g (56.25 mL) IV Q8H 9 days 05/08/23 sennosides 8.6 mg-docusate sodium 50 mg tablet (Stool Softener-Stimulant Laxative) 2 tab PO BID PRN PRN Constipation #0 tabs 05/08/23 sucralfate 1 gram tablet 1 g PO BIDAC #0 tabs 05/08/23 tamsulosin 0.4 mg capsule 0.4 mg PO DAILY@1730 #0 caps 05/08/23 Hospital Course Operations None Procedures EGD and EKG Summary of Care Provided Minutes Spent on Discharge: 35 Hospital Course: The patient is an 82 y/o F w/ PMHx: Hx VTE (PE, DVT) with Hypofibrinogenemia s/p IVC filter, Cardiac amyloidosis, Hypothyroidism, GERD, GI bleed secondary to duodenal ulcer, 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 Blood culture x 2 negative, 05/01/2023 urine culture with greater than 1000 presumptive C albicans, Pseudomonas 1000-10,000 pansensitive, SARS COVID/influenza/RSV negative, full respiratory viral panel negative, given urine patient had been maintained on IV Zosyn as well as addition 05/04/2023 of oral fluconazole, infectious disease consulted and following, has fortunately been now afebrile. PT/OT/case management consultation for discharge planning. Discussed with ENT and per their recommendation will continue abx therapy with planned outpatient re-evaluation if not improved for evaluation for possible ear tubes more likely per their discussion secondary to fluid present, not necessarily mastoiditis. 05/08/23 CBC w/ WBC 5.9, afebrile, discussed with ID and will plan transition to TCU with midline with continued IV Zosyn with stop date 05/18/23 to be cautious. Oral fluzonazole stopped 05/08/23 per ID. Will continue nystatin oral S/S for an additional 5 days. 05/03/2023 guaiac positive, gastroenterology consulted given hemoglobin trended downward, initially recommended to hold on endoscopy unless hemoglobin further trended downward with allowance of resumption of anticoagulation given fibrinogen deficiency however hemoglobin continued to trend down, 05/06/2023 hemoglobin 7.5, 05/07/2023 7.8, thus 05/07/23 Upper endoscope performed with noted oozing duodenal ulcer with visible vessel present to and treated with laser probe as well as a nonbleeding duodenal ulcers with no stigmata of bleeding but which was biopsied. From IV to oral high-dose Protonix twice daily for 3 months and initiated and continued on sucralfate 1 g p.o. twice daily for 4 weeks. Diet resumed 05/07/23 per GI clearance. Continued on anticoagulation. 05/08/23 Hgb 7.7, similar, stable, will trend at TCU upon transition to be cautious with planned GI follow-up 4-6 weeks. Recent history of left septic shoulder arthritis with group A streptococcal organism w/ as noted ID following and given acute presentation transitioned and maintained on IV Zosyn although previously had washout and was placed on IV Rocephin at that time with transition to TCU on oral amoxicillin. Given acute presentation upon admission transitioned to IV zosyn as noted with plan for stop date per ID 05/18/23. Encouraged continued follow-up with orthopedic surgery as previously arranged, shoulder usage per orthopedic surgery discretion. Given clinical improvement patient discharged to TCU for ongoing therapies with continued abx therapy, completion of nystatin S/S, monitoring of CBC, BMP, planned follow-up with consultants as noted. Weight / BMI Weight Weight: 136 lb 3.931 oz Body Mass Index (BMI) 22.6 ABG / Lab / Microbiology Data 05/08/23 09:06 05/08/23 09:06 Laboratory: Laboratory Results - last 24 hr 05/06/23 05:44: Diff Path Review Reviewed 05/08/23 09:06: WBC 5.9, RBC 2.76 L, Hgb 7.7 L, Hct 25.4 L, MCV 92.0, MCH 27.9, MCHC 30.3 L, RDW Std Deviation 56.8 H, RDW Coeff of Rashmi 17.2 H, Plt Count 237, MPV 9.0, Immature Gran % (Auto) 3.900 H, Neut % (Auto) 73.1 H, Lymph % (Auto) 13.8 L, [place] % (Auto) 6.7, Eos % (Auto) 2.2, Baso % (Auto) 0.3, Absolute Neuts (auto) 4.3, Absolute Lymphs (auto) 0.82 L, Nucleated RBC % 0, Sodium 140, Potassium 3.7, Chloride 112 H, Carbon Dioxide 22.0, Anion Gap 6, BUN 12, Creatinine 0.88, Estim Creat Clear Calc 44.35, Est GFR (MDRD) Af Amer 79, Est GFR (MDRD) Non-Af 65, BUN/Creatinine Ratio 13.6, Glucose 192 H, Calcium 7.9 L Microbiology: Microbiology 05/03/23 15:28 Urine, Clean Catch Urine Culture - Final Presumptive C albicans GNR Poss Pseudomonas sp 05/03/23 15:25 Blood Culture (Wb) - Left Wrist Blood Culture - Preliminary No growth in 48 hours. 05/03/23 15:20 Blood Culture (Wb) - Anticubital Right Blood Culture - Preliminary No growth in 48 hours. 05/03/23 20:10 Mucosa - Nasopharyngeal Respiratory Panel (PCR) - Final 05/03/23 15:28 Mucosa - Nose SARS-CoV-2, Influenza & RSV (PCR) - Final Meaningful Use Info Meaningful Use Diagnoses (Choose all that apply): None applicable Discharge Plan Admission Admit Date/Time: 05/03/23 18:58 Primary Reason for Your Visit: Mastoiditis, Oral Thrush, Candiduria, Recent L shoulder septic arthritis Attending Provider: Bekah Rodrigues Primary Care Provider: Radha Mcrae Consulting Providers: Daquan Anthony; Jolene Adorno; Hari Garcia Instructions Additional Instructions / Restrictions: DISCHARGE ADDITIONAL INSTRUCTIONS/REVIEW: 1. Fever of unclear origin initially, possibly multifactorial noted gram-negative jodie possible Pseudomonas growth in urine however colony count only thousand to 10,000, presumptive C albicans (candiduria) greater than 100,000 as well as MRI with noted bilateral mastoiditis with recent history of group A streptococcal septic arthritis of the shoulder: Blood culture x 2 negative, 05/01/2023 urine culture w/ presumptive C albicans, Pseudomonas 1000-10,000 pansensitive, SARS COVID/influenza/RSV negative, full respiratory viral panel negative, maintained on IV Zosyn as well as addition 05/04/2023 of oral fluconazole discharged per ID on 05/08/23 given improvement. Will continue liquid nystatin S/S for an additional 5 days at TCU transition. Per Infectious disease IV zosyn will be continued until 05/18/23. Referral made for follow-up with ENT for re-evaluation given hearing deficits in the setting of mastoiditis. 2. Acute GI Bleed w/ resultant Acute on Chronic Blood Loss Anemia with history of recent bleeding duodenal ulcer with recurrent evidence of bleedin05/03/23 guaiac positive, gastroenterology consulted w/ 05/07/23 Upper endoscope performed with noted oozing duodenal ulcer with visible vessel present to and treated with laser probe as well as a nonbleeding duodenal ulcers with no stigmata of bleeding but which was biopsied. Will need to continue Protonix twice daily for 3 months and initiated and continued on sucralfate 1 g p.o. twice daily for 4 weeks. Continued on chronic anticoagulation which was cleared per GI. Plan GI follow-up in 4-6 weeks. 3. Recent history of left septic shoulder arthritis with group A streptococcal organism: ID following, noted prior to current presentation, maintained on currently IV Zosyn for above #1 as noted with stop date 05/18/23. Encourage continued follow-up with orthopedic surgery as previously arranged, shoulder usage per orthopedic surgery discretion. Discharge Orders/Prescriptions Prescriptions: New Zosyn in dextrose (iso-osm) 3.375 gram/50 mL piggyback 3.375 g IV Q8H 9 Days Rx Instructions: stop date 05/18/23 dx: mastoiditis weekly bmp and cbc. Fax to [phone]. Routine midline care per protocol. nystatin 100,000 unit/mL Suspension 500,000 unit PO 4X/DAY 5 Days Qty: 0 0RF acetaminophen 325 mg Tablet 650 mg PO Q6H PRN PRN (Reason: Pain 1-10 Or Fever >100.7) Qty: 0 0RF sucralfate 1 gram Tablet 1 g PO BIDAC Qty: 0 0RF sennosides-docusate sodium [Stool Softener-Stimulant Laxat] 8.6-50 mg Tablet 2 tab PO BID PRN PRN (Reason: Constipation) Qty: 0 0RF tamsulosin 0.4 mg Capsule 0.4 mg PO DAILY@1730 Qty: 0 0RF melatonin 3 mg Tablet 3 mg PO QHS PRN PRN (Reason: Insomnia) Qty: 0 0RF Continued enoxaparin [Lovenox] 60 mg/0.6 mL syringe 60 mg SC QHS Hold Instructions: pt unsure if taking or when to start? Patient Comments: To start taking on April 26, 2023. aspirin [Adult Aspirin Regimen] 81 mg tablet,delayed release (DR/EC) 81 mg PO DAILY tafamidis 61 mg capsule 61 mg PO DAILY cholecalciferol (vitamin D3) 125 mcg (5,000 unit) capsule 125 mcg PO DAILY metoprolol succinate [Toprol XL] 25 mg tablet extended release 24 hr 12.5 mg PO DAILY PreserVision AREDS 4,296 mcg-226 mg-90 mg capsule 1 cap PO BID levothyroxine 88 mcg tablet 88 mcg PO DAILY ondansetron 4 mg tablet,disintegrating 4 mg PO Q8H PRN (Reason: NAUSEA ) benzocaine-menthol 6-10 mg lozenge 1 salvatore mucous membrane Q2H diclofenac sodium [Voltaren Arthritis Pain] 1 % gel 2 g topical 4X/DAY MAGIC MOUTH WASH (BMX) 180 mL suspension 5 ml PO Q4H PRN Qty: 180 pantoprazole 40 mg tablet,delayed release (DR/EC) 40 mg PO BID polysaccharide iron complex [Ferrex 150] 150 mg iron capsule 150 mg PO DAILY atorvastatin [Lipitor] 10 mg tablet 10 mg PO QHS nystatin 100,000 unit/gram powder 1 applic topical BID mirtazapine 7.5 mg tablet 7.5 mg PO QHS doxepin 10 mg capsule 10 mg PO QHS calcium carbonate [Tums] 200 mg calcium (500 mg) tablet,chewable 200 mg PO BID ascorbate calcium (vitamin C) 500 mg tablet 500 mg PO DAILY gabapentin 300 mg capsule 300 mg PO QHS Rx Instructions: Take for 180 days Discontinued rosuvastatin 5 mg tablet 5 mg PO DAILY ondansetron [ondansetron] 4 mg tablet,disintegrating 4 mg PO Q8H PRN PRN (Reason: Nausea) Qty: 10 0RF acetaminophen 500 mg tablet 1,000 mg PO Q8H PRN PRN (Reason: pain) amoxicillin 500 mg capsule 1,000 mg PO BID Rx Instructions: Take for 14 days polyethylene glycol 3350 17 gram/dose powder 17 g PO DAILY senna 8.6 mg capsule 8.6 mg PO BID PRN (Reason: constipation) fluconazole [Diflucan] 100 mg tablet 100 mg PO DAILY No Action potassium chloride 20 mEq tablet extended release 40 meq PO DAILY Referrals / Follow Up: Radha Mcrae MD [Primary Care Provider] - (Follow-up within 1-2 weeks of hospital discharge to review admission.) Willis Montano MD [Med Staff - Active Staff] - (Please follow-up in 2-4 weeks to have hearing assessment given recent deficits in the setting of mastoiditis.) Gerard Addison DO [Med Staff - Active Staff] - (Follow-up in 4-6 weeks to review pathology and set-up repeat endoscopy. Call earlier if concerns.) Daquan Anthony MD [Med Staff - Active Staff] - (May follow-up as needed. If any concerns for oral thrush, candidiasis, septic shoulder or mastoiditis treatment.) Jaymie Mchugh PA [Med Staff - Adv Practice Prof] - (Please follow-up with Cardiology in 2-4 weeks to review admission, re-evaluation. May see cardiology BELT NOTCHER.) Disposition Disposition (needs filled in before D/C Order can be placed): [facility] Facility Charges/Coding Visit Charges Inpatient E&M: 01011 Disch Hosp >30min
--- NOTE | 2023-05-08 11:03 | PCM.PN.ID ---
Physical Exam Narrative Sleeping this AM, no fever Const no apparent distress Resp normal air movement and clear to auscultation bilaterally Cardio regular rate and regular rhythm GI soft to palpation, non-tender and non-distended Skin no rashes or lesions noted ID ID: Route of nutrition/ use of supplements: [] Nutritional Intake: [] IV Site: [] Britton Catheter: [] Assessment & Plan Assessment/Plan (1) Fever: PLAN: Low grade temp resolved, MRI showed mastoiditis. Shoulder doing well. Cont empiric zosyn for 14 days total, will order midline, stop date 05/18/23. Will stop fluc today. Overall improving. will follow (2) Septic arthritis of shoulder, left:
--- NOTE | 2023-05-08 11:51 | NURSING ---
report called to Smita VÁZQUEZ at [facility]
--- NOTE | 2023-05-08 12:12 | PCM.OP.PRO ---
Procedure Report Date of Procedure: 05/08/23 Assessment & Plan Assessment/Plan (1) Fever: QUALIFIERS: Fever type: unspecified Qualified Code(s): R50.9 - Fever, unspecified (2) Septic arthritis of shoulder, left: QUALIFIERS: Septic arthritis organism: due to unspecified organism Qualified Code(s): M00.9 - Pyogenic arthritis, unspecified PLAN: Midline insertion in right basilic: Patient identity was verified with two patient identifiers. Hands were sanitized. The patient was positioned supine with right arm at 90 degrees. The patient's upper arm vasculature was assessed using ultrasound, and the right basilic vein was externally marked. This vein was chosen due to size, compressibility, distance from brachial bundle, and access trajectory not through muscle. An external measurement was obtained of 11 cm. Cap, mask, and prep gloves were donned. The underdrape was placed under the patient's arm. The site was prepped with chlorhexidine, and tourniquet was loosely applied. Prep gloves were discarded, and hands were sanitized. The sterile kit was opened with additional supplies dropped in. Sterile gown and gloves were donned, and the patient was draped. The sterile kit was assembled with all needle, introducer, connector, and catheter flushed with sterile normal saline. The marked site of insertion was anesthetized with 1% lidocaine. Patient tolerated well. The right basilic vein was then accessed using ultrasound guidance and guidewire was inserted to safety shara. The tourniquet was released. The access needle was removed while securing the guidewire in place. The site was again anesthetized with 1% lidocaine, prior to insertion of introducer sheath and dilator. Patient tolerated well. The catheter was trimmed to a length of 11 cm, and a flushed needleless connector was attached. The catheter was then inserted through the introducer sheath, slowly. There was no resistance on insertion. The introducer sheath was retracted and peeled away, incrementally, while keeping the catheter secured. Blood return was verified; however, this was only able to be obtained with the catheter 1 cm external. The midline was flushed with sterile normal saline in a pulsatile fashion. Total sterile flushes used for the insertion was 3 10 ml syringes, one from the kit. Finally, the insertion site was cleaned with chlorhexidine, and the catheter was secured using a StatLock. The site was covered with a Tegaderm CHG Dressing. The initial dressing was placed over the clamp of the midline. So this dressing was removed, and a new dressing was applied. Baseline arm circumference was obtained at the insertion site and measured 22 cm. The primary nurse is aware that the midline is ready for use. REF: [id number] LOT: [id number] Procedures Radiology Radiology Access Procedures: MIDL
== END 2023-05-08 13:20 | disposition skilled nursing facility (03) | DRG 698 ==
LOC: ED 18:06 → PCU 18:32
PROVIDERS: Internal Medicine; Internal Medicine Gastroenterology; Nurse Practitioner; Admitting Provider Internal Medicine; Emergency Provider Emergency Medicine; PCP Internal Medicine; Visit Provider Family Medicine
PROC: 0DJ08ZZ Inspection of Upper Intestinal Tract, Via Natural or Artificial Opening Endoscopic (ICD-10-PCS; CPT 43235; principal; 2023-05-07 11:55)
DX: T83.511A Infection and inflammatory reaction due to indwelling urethral catheter, initial encounter (principal); K26.4 Chronic or unspecified duodenal ulcer with hemorrhage; D68.2 Hereditary deficiency of other clotting factors; M00.212 Other streptococcal arthritis, left shoulder; B37.0 Candidal stomatitis; D68.8 Other specified coagulation defects; E85.4 Organ-limited amyloidosis; E85.82 Wild-type transthyretin-related (ATTR) amyloidosis; I42.2 Other hypertrophic cardiomyopathy; I43 Cardiomyopathy in diseases classified elsewhere; D62 Acute posthemorrhagic anemia; H70.003 Acute mastoiditis without complications, bilateral; I10 Essential (primary) hypertension; F32.A Depression, unspecified; E03.9 Hypothyroidism, unspecified; E78.5 Hyperlipidemia, unspecified; E87.5 Hyperkalemia; I25.10 Atherosclerotic heart disease of native coronary artery without angina pectoris; K21.9 Gastro-esophageal reflux disease without esophagitis; F41.9 Anxiety disorder, unspecified; N39.0 Urinary tract infection, site not specified; X58.XXXA Exposure to other specified factors, initial encounter; B96.5 Pseudomonas (aeruginosa) (mallei) (pseudomallei) as the cause of diseases classified elsewhere; R74.01 Elevation of levels of liver transaminase levels; R91.1 Solitary pulmonary nodule; R77.8 Other specified abnormalities of plasma proteins; Z90.49 Acquired absence of other specified parts of digestive tract; Z79.01 Long term (current) use of anticoagulants; Z79.82 Long term (current) use of aspirin; Z79.899 Other long term (current) drug therapy
CPT/HCPCS: 36415; 70551; 71045; 80048; 80053; 80076; 81001; 82728; 83540; 83550; 83605; 83735; 84100; 84145; 84436; 84443; 84480; 84484; 85014; 85018; 85025; 85610; 85652; 85730; 86140; 87040; 87086; 87088; 87631; 87633; 87641; 88305; 93005; 94668; 97110; 97112; 97162; 97166; 97530; 97535; 99252; 99285; J7030; J7050; J7120; A4216; G0463; J2405

== ENCOUNTER → 2023-05-03 | Outpatient (CLI) | payer MEDICARE, OTHER, SELFPAY ==
--- NOTE | 2023-05-03 09:38 | MRI_ITS ---
STUDY: MRI BRAIN WITHOUT CONTRAST REASON FOR EXAM: Female, 82 years old. SEVERE HEADACHES TECHNIQUE: Standardized multiplanar fat and water weighted pulse sequences were obtained. COMPARISON: None. FINDINGS: There is mild cerebral atrophy with widening of the extra-axial spaces and ventricular dilatation. There are a limited number of small white matter hyperintensities, distributed throughout the deep white matter tracts of the cerebral hemispheres, consistent with mild chronic white matter ischemic changes. There is no evidence for recent intracranial ischemia or other cause of cytotoxic edema on diffusion weighted imaging (DWI). Normal T2* images of the brain without demonstrated susceptibility artifact. There is no demonstrated hemosiderin stain. No hydrocephalus or midline shift is present. Focal mild to moderate parenchymal loss in the right anterior temporal fossa suggests sequela of previous trauma or an old infarct. Normal bilateral basal ganglia. Normal thalami. There is no extra-axial fluid accumulation. Normal flow voids within the major intracranial circulation suggesting patency by spin echo criteria. Normal sella turcica, pituitary gland, infundibular stalk, optic chiasm and hypothalamus. Normal tectal plate and pineal gland. Normal midbrain, ike and medulla. Normal cerebellum. Normal basal cisterns. Normal bilateral temporal bones. Normal bilateral internal auditory canals. No demonstrated orbital abnormality, within the constraints of a routine brain study. Normal visualized paranasal sinuses. Normal calvarium and skull base. Normal visualized soft tissue structures. Normal visualized upper cervical spine. Severe bilateral mastoiditis is present MRI/Brain without Contrast IMPRESSION: 1. Involutional and chronic ischemic changes of the brain, as described above. 2. Severe bilateral mastoiditis 3. Focal mild to moderate parenchymal loss in the right anterior temporal fossa suggests sequela of previous trauma or an old infarct. Electronically Signed: Angel Barton MD at 11:06 EST ,
== END | disposition home or self-care (01) ==
PROVIDERS: PCP Internal Medicine; Visit Provider Family Medicine Geriatric Medicine
DX: R51.9 Headache, unspecified (principal)
CPT/HCPCS: 70551

== ENCOUNTER 2023-05-08 13:29 | Inpatient (IN) | payer MEDICARE, OTHER, SELFPAY ==
[2023-05-08 13:46] VITALS: BP 133/63; PULSE 64; RESP 16; TEMP 36.8; O2SAT 99; BMI 22.6
--- NOTE | 2023-05-08 14:28 | CASEMGMT ---
Social Work BIMS () and PHQ-2 () completed for MDS assessment. Carol Mathis MSW OVERNIGHT CAREGIVER
[2023-05-08] MEDS: 0.9% Normal Saline 250 ML IV.SOLN. IV (14:53)
[2023-05-08] MEDS: 0.9% Saline Lock 10 ML Syringe IV (14:54)
[2023-05-08] MEDS: Piperacil/Tazobactam 3.375 GM in 0.9% Normal Saline (50mL MB+) 50 ML IV ×2 (14:59→21:02)
[2023-05-08] MEDS: BENZOCAINE/MENTHOL 1 LOZENGE MUCOUS MEM (15:58)
--- NOTE | 2023-05-08 17:04 | CASEMGMT ---
Social Work Pt readmitted from previous TCU stay V#[id number]. No changes to assessment, code status or Medicare insurance. Pt's goal is to return home with at [facility]. SW will continue to follow for DC planning. TERRENCE RatliffW
[2023-05-08] MEDS: Sucralfate 1 GM Tablet PO (17:26)
[2023-05-08] MEDS: NYSTATIN 500,000 UNIT/5 ML UDC 500000 UNIT PO ×2 (17:26→20:42)
[2023-05-08] MEDS: Tamsulosin HCl 0.4 MG Capsule 0.400000000000000022 MG PO (17:26)
[2023-05-08] MEDS: Multivitamin (Healthy Eyes) Capsule 1 CAP PO (17:26)
--- NOTE | 2023-05-08 19:58 | HP.PCM_ITS ---
HPI - General General Date of Admission: 05/08/23 Date of Service: 05/08/23 Chief Complaint: Here for rehabilitation, intravenous antibiotics. HPI Narrative KEYONNA VILLAGOMEZ, is a 82 Female who presents with followin05/03/2023 [facility] ED TCU resident with fever, tachycardia. Weakness, tachycardia, fever, cough. EKG sinus tachycardia, Peaked T wave. Chest X-ray negative, Urinalysis negative, covid negative, flu negative, rsv negative. Troponin 62, repeat Troponin 64. MRI head showed acute bilateral mastoiditis. K 5.7. Near syncope with blood pressure 80/40. 05/03/2023 Admit to Hospital. Fluconazole for Candiduria. Check blood cultures, respiratory panel, IV fluids, IV ATB's for fever, rule out infection. Trend troponin for elevated troponin 2/2 type 2 demand ischemia. Hold anticoagulation for + stool guaiac. Trend BMP for hyperkalemia. 05/04/2023 Dr. Anthony recommended Zosyn IV for mastoiditis, pneumonia. Fluconazole for thrush, candiduria. 05/05/2023 Remove Britton catheter, restart Lovenox for recurrent blood clots. Urine culture growing pseudomonas, on IV Zosyn per ID. PT/OT for SNF. 05/06/2023 Hemoglobin 7.6, decreased hearing, ear exam negative. GI planning EGD, IV PPI for anemia. 05/07/2023 Dr. Addison performed EGD oozing duodenal ulcer, injected, heater probe. Non-bleeding duodual ulcers. 05/07/2023 Dr. Anthony recommended Zosyn IV for acute mastoiditis, Fluconazole for candiduria. 05/08/2023 Dr. Anthony recommended Zosyn IV for 14 days via PICC, stop date 05/18/2023 for acute bilateral mastoiditis. Stop Fluconazole. 05/08/2023 Midline placed. 05/08/2023 Admit to TCU with debility, here for rehabilitation, strengthening, intravenous antibiotics, prior to discharge home with . [facility] Medical History Abdominal pain Abdominal pain Abnormal stress echo Acid reflux Arthritis Atherosclerosis of [place] coronary artery of [place] heart without angina pectoris Back problem Cellulitis of left lower extremity Chest pain Constipation Diverticulitis of sigmoid colon DVT (deep venous thrombosis) Essential hypertension Gastrointestinal hemorrhage Heart murmur Hemorrhoids History of pulmonary embolus (PE) (~2009) History of venous thrombosis and embolism hx of APLL Hyperlipidemia Hypertension Hypertrophic cardiomyopathy Hypofibrinogenemia Hypothyroidism Kidney disease LVH (left ventricular 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 Palpitations Personal history of colonic polyps Severe left ventricular hypertrophy Severe mitral regurgitation Thrombophlebitis of superficial veins of left lower extremity Wild-type transthyretin-related (ATTR) amyloidosis Home Medications levothyroxine 88 mcg tablet 88 mcg PO DAILY THYROID 05/27/18 [History Last Taken 04/04/23] enoxaparin 60 mg/0.6 mL subcutaneous syringe (Lovenox) 60 mg subcut QHS BLOOD THINNER 09/25/18 [History Last Taken 04/01/23] aspirin 81 mg tablet,delayed release (Adult Aspirin Regimen) 81 mg PO DAILY HEART HEALTH 12/12/19 [History Last Taken 05/08/23] tafamidis 61 mg capsule 61 mg PO DAILY HEART FAILURE 12/12/19 [History Last Taken 05/08/23] cholecalciferol (vitamin D3) 125 mcg (5,000 unit) capsule 125 mcg PO DAILY SUPPLEMENT 04/15/20 [History Last Taken 04/04/23] metoprolol succinate 25 mg tablet,extended release 24 hr (Toprol XL) 12.5 mg PO DAILY BLOOD PRESSURE 07/13/22 [History Last Taken 05/08/23] vitamins A,C,U-bzul-niiekf 4,296 mcg-226 mg-90 mg capsule (PreserVision AREDS) 1 cap PO BID EYE HEALTH 01/11/23 [History Last Taken 04/04/23] gabapentin 300 mg capsule 300 mg PO QHS NEUROPATHY 02/16/23 [History Last Taken 05/07/23] ondansetron 4 mg disintegrating tablet 4 mg PO Q8H PRN NAUSEA 04/04/23 [History Last Taken 04/04/23] MAGIC MOUTH WASH (BMX) 180 mL suspension 5 ml PO Q4H PRN Mouth pain #180 mL 04/20/23 [History Last Taken Unknown] benzocaine 6 mg-menthol 10 mg lozenges 1 salvatore mucous membrane Q2H Sore throat 04/20/23 [History Last Taken Unknown] diclofenac sodium 1 % topical gel (Voltaren Arthritis Pain) 2 g topical 4X/DAY Arthritis pain 04/20/23 [History Last Taken Unknown] pantoprazole 40 mg tablet,delayed release 40 mg PO BID Acid reflux 04/20/23 [History Last Taken Unknown] ascorbate calcium (vitamin C) 500 mg tablet 500 mg PO DAILY Supplement 05/03/23 [History Last Taken Unknown] atorvastatin 10 mg tablet (Lipitor) 10 mg PO QHS Cholestrol 05/03/23 [History Last Taken Unknown] calcium carbonate 200 mg calcium (500 mg) chewable tablet (Tums) 200 mg PO BID Supplement 05/03/23 [History Last Taken Unknown] doxepin 10 mg capsule 10 mg PO QHS sleep 05/03/23 [History Last Taken Unknown] mirtazapine 7.5 mg tablet 7.5 mg PO QHS Sleep 05/03/23 [History Last Taken 05/07/23] nystatin 100,000 unit/gram topical powder 1 applic topical BID yeast 05/03/23 [History Last Taken Unknown] polysaccharide iron complex 150 mg iron capsule (Ferrex) 150 mg PO DAILY Supplement 05/03/23 [History Last Taken 05/08/23] acetaminophen 325 mg tablet 650 mg (2 x 325 mg) PO Q6H PRN PRN Pain 1-10 Or Fever >100.7 #0 tabs 05/08/23 [Rx Last Taken Unknown] melatonin 3 mg tablet 3 mg PO QHS PRN PRN Insomnia #0 tabs 05/08/23 [Rx Last Taken Unknown] nystatin 100,000 unit/mL oral suspension 500,000 unit (5 mL) PO 4X/DAY yeast 5 days #0 mL 05/08/23 [Rx Last Taken Unknown] piperacillin-tazobactam 3.375 gram/50 mL dextrose(iso-os) IV piggyback (Zosyn) 3.375 g (56.25 mL) IV Q8H Antibiotic 9 days 05/08/23 [Rx Last Taken Unknown] sennosides 8.6 mg-docusate sodium 50 mg tablet (Stool Softener-Stimulant Laxative) 2 tab PO BID PRN PRN Constipation #0 tabs 05/08/23 [Rx Last Taken Unknown] sucralfate 1 gram tablet 1 g PO BIDAC GI #0 tabs 05/08/23 [Rx Last Taken 05/08/23] tamsulosin 0.4 mg capsule 0.4 mg PO DAILY@1730 Bladder retention #0 caps 05/08/23 [Rx Last Taken 05/07/23] Allergy/AdvReac Type Severity Reaction Status Date / Time Iodinated Contrast Media Allergy Severe Hives Verified 05/07/23 10:54 [Iodinated Contrast- Oral and IV Dye] iodine Allergy Anaphylaxis Verified 05/07/23 10:54 Family History Mother Colon cancer Brother Myeloma Father Heart disease Surgical History History of cholecystectomy History of left heart catheterization (10/22/19) History of left hip replacement History of right hip replacement Hx of arthroscopic knee surgery Hx of bilateral inguinal hernia repair Hx of bladder repair surgery Hx of hysterectomy Hx of partial thyroidectomy Hx of umbilical hernia repair (~2009) Social History household members: spouse Smoking Status: Never smoker second hand exposure: No alcohol intake: never substance use type: does not use caffeine: Yes (very rare) what type of physical activity do you participate in: none frequency: does not exercise seatbelt use: always ROS Constitutional Constitutional: Denies chills, fever(s) or weight gain ENT HEENT: Denies headache(s), nasal congestion or nasal discharge Cardiovascular Cardiovascular: Denies chest pain or palpitations Respiratory/Chest Respiratory/Chest: Denies cough, excessive phlegm production or shortness of breath with exertion Gastrointestinal Gastrointestinal: Denies abdominal pain, nausea or vomiting Genitourinary Genitourinary: Denies dysuria Musculoskeletal Musculoskeletal: Denies joint pain or joint swelling Integumentary Integumentary: Denies rash or wounds Neurologic Neurologic: Denies focal weakness, numbness or tingling Psychiatric Psychiatric: Denies anxiety, auditory hallucinations, depression, homicidal ideation or suicidal ideation Vital Signs Vital Signs Vital Signs: 05/08/23 13:46 05/08/23 13:46 Temperature 98.3 F Temperature Source Temporal Pulse Rate 64 Pulse Rhythm Regular Pulse Strength Normal (2+) Respiratory Rate 16 16 Respiratory Effort Normal Non-Labored Respiratory Depth Normal Respiratory Pattern Normal Blood Pressure 133/63 H Blood Pressure Mean 86 Blood Pressure Source Monitor Blood Pressure Position Sitting Blood Pressure Location Left Arm Pulse Ox 99 99 Oxygen Delivery Method Room Air Room Air Weight Weight: 61.598 kg Body Mass Index (BMI) 22.6 Physical Exam Const alert General Appearance: cooperative HEENT normocephalic Eyes PERRL and EOMs intact bilaterally Neck supple, no JVD and no carotid bruits Resp normal respiratory effort, normal air movement and clear to auscultation bilaterally Cardio regular rate and regular rhythm GI normal to inspection, nondistended, normoactive bowel sounds, non-tender and non-distended Extremity normal capillary refill Extremity Narrative: Midline right upper extremity. General Extremity: Negative for edema Skin no rashes or lesions noted General Skin Exam: no breakdown Psych affect normal Appearance: appropriate Assessment & Plan Assessment/Plan (1) Debility: (2) Severe sepsis: (3) Acute bilateral mastoiditis: (4) Candiduria: (5) Elevated troponin: (6) Hyperkalemia: (7) Upper GI bleed: (8) Duodenal ulcer: (9) Bleeding duodenal ulcer: (10) Coronary artery disease: (11) Hyperlipidemia: QUALIFIERS: Hyperlipidemia type: unspecified Qualified Code(s): E78.5 - Hyperlipidemia, unspecified (12) Vitamin D deficiency: (13) Neuropathic pain: (14) Hypothyroidism: (15) Insomnia: (16) Cardiac amyloidosis: PLAN: Plan 82 year old female with below past medical history significant for septic left shoulder, strep A bacteremia, hospitalized for severe sepsis secondary to acute bilateral mastoiditis, complicated by candiduria, hyperkalemia, elevated troponin, GI bleed 2/2 duodenal ulcer, admitted to TCU with debility, here for rehabilitation, strengthening, intravenous antibiotics, prior to discharge home with . * Debility - PT/OT. * Pain - Tylenol 1000mg q6 prn pain (1-10), Arthritis pain compound 2 clicks topical bid. * Bowel - senna/colace 1 tablet bid. * Adult immunization - Administer pneumonia vaccine, covid vaccine, flu vaccine as appropriate. * DVT prophylaxis - on Lovenox 60mg sc daily. * Iron deficiency anemia - Ferrex 150mg daily, Vitamin C 500mg daily. * Coronary artery disease - Metoprolol succinate 12.5mg daily, Aspirin 81mg daily. * Hyperlipidemia - Atorvastatin 10mg qhs. * Thrush - Nystatin 500,000 4x/day x 10 days, Cepacol lozenge q2, bmx 5ml q6 prn * Calcium deficiency - TUMS 200mg bid. * Vitamin D deficiency - D3 125mcg daily. * Appetite loss - Mirtazapine 7.5mg qhs, stable use, GDR not recommended. * Macular degeneration - Healthy Eye 1 capsule bid. * Tinea Corporis - Nystatin powder topical bid. * Nausea - Zofran odt 4mg q8 prn. * Acute bilateral mastoiditis - Zosyn 3.375gm iv q8 thru 05/07/2023. * Insomnia - Doxepin 10mg qhs, stable use, GDR not recommended, Melatonin 3mg qhs. * Recurrent DVT - Lovenox 60mg sc daily. * Neuropathic pain - Gabapentin 300mg qhs. * Hypothyroidism - Levothyroxine 88mcg daily. * Duodenal ulcer - Pantoprazole 40mg bid thru 07/23/2023, Sucralfate 1gm bid thru 06/04/2023. * Cardiac amyloidosis - Tafamidis 61mg daily. * Urinary retention - Tamsulosin 0.4mg daily.
[2023-05-08] MEDS: Enoxaparin 60 MG/0.6 ML Syringe SC (20:31)
[2023-05-08] MEDS: Gabapentin 300 MG Capsule PO (20:33)
[2023-05-08] MEDS: Atorvastatin Calcium 10 MG Tablet PO (20:34)
[2023-05-08] MEDS: Arthritis Pain Compound 60 CLICK TUBE TOPICAL (20:34)
[2023-05-08] MEDS: Pantoprazole Sodium 40 MG Tablet PO (20:43)
[2023-05-08] MEDS: Senna/Docusate Sodium 1 Tablet PO (20:47)
[2023-05-08] MEDS: MELATONIN 3 MG TABLET PO (20:49)
[2023-05-08] MEDS: Calcium Carbonate 500 MG Tablet 200 MG PO (20:51)
[2023-05-08] MEDS: Nystatin Powder 15gm Bottle 1 APPLIC TOPICAL (21:04)
[2023-05-09] MEDS: Piperacil/Tazobactam 3.375 GM in 0.9% Normal Saline (50mL MB+) 50 ML IV ×3 (05:04→21:19)
[2023-05-09] MEDS: Levothyroxine 88 MCG Tablet PO (05:05)
[2023-05-09] MEDS: NYSTATIN 500,000 UNIT/5 ML UDC 500000 UNIT PO ×4 (05:05→21:16)
[2023-05-09 05:55] LABS: Absolute Lymphocyte Count 1.22 X10^3/uL (0.83-4.51); Absolute Neutrophil Count 4.1 X10^3/uL (2.0-7.7); Basophil# 0.03 X10^3/uL; Basophil% 0.5 % (0-1); Eosinophil# 0.15 X10^3/uL; Eosinophils% 2.4 % (0-5); Hematocrit 25.1 % (37-47); Hemoglobin 7.8 g/dL (12.0-15.0); Lymphocyte # 1.22 X10^3/ul (0.83-4.51); Lymphocyte % 19.4 % (19-41); Mean Corp Hgb Conc 31.1 g/dL (32-36); Mean Corpuscular Hgb 27.6 pg (27.0-32.0); Mean Corpuscular Volume 88.7 fL (81-99); Mean Platelet Vol. 8.8 fl (6.2-12.0); Monocyte% 9.5 % (0-10); NRBC Flagged by Analyzer 0 % (0-5); Neutrophil # 4.06 X10^3/uL (2.7-7.7); Neutrophil % 64.5 % (47-70); Platelet Count 277 K/mm3 (150-450); Red Blood Count 2.83 M/mm3 (4.2-5.4); White Blood Count 6.3 K/mm3 (4.4-11.0)
[2023-05-09 06:14] LABS: Anion Gap 3 (5-15); BUN 10 mg/dL (7-18); BUN/Creat Ratio 13.7 RATIO (10-20); Calcium,Total 8.1 mg/dL (8.5-10.1); Chloride 109 mmol/L (98-107); Creatinine, Serum 0.73 mg/dL (0.55-1.02); EST Glomerular Filtration Rate 81 mL/min (>60); Est Glom Filt Rate - Afr Amer 98 mL/min (>60); Estimated Creatinine Clearance 48.79 ml/min; Glucose 105 mg/dL (74-106); Potassium 3.5 mmol/L (3.5-5.1); Sodium Level 136 mmol/L (136-145)
[2023-05-09] MEDS: Sucralfate 1 GM Tablet PO ×2 (08:12→17:15)
[2023-05-09] MEDS: Aspirin E.C. 81 MG Tablet PO (08:12)
[2023-05-09] MEDS: Arthritis Pain Compound 60 CLICK TUBE TOPICAL (08:13)
[2023-05-09] MEDS: Cholecalciferol (Vit D3) 125 MCG CAPSULE (5,000 UNITS) PO (08:13)
[2023-05-09] MEDS: Multivitamin (Healthy Eyes) Capsule 1 CAP PO ×2 (08:13→17:15)
[2023-05-09] MEDS: Iron Polysaccharide Complex 150 MG CAPSULE PO (08:14)
[2023-05-09] MEDS: Pantoprazole Sodium 40 MG Tablet PO ×2 (08:15→21:15)
[2023-05-09 08:16] VITALS: BP 138/73; PULSE 84
[2023-05-09] MEDS: Senna/Docusate Sodium 1 Tablet PO (08:16)
[2023-05-09] MEDS: Metoprolol(XL)Succ 25 MG Tablet 12.5 MG PO (08:16)
[2023-05-09] MEDS: Calcium Carbonate 500 MG Tablet 200 MG PO (08:20)
[2023-05-09] MEDS: Ascorbic Acid 500 MG Tablet PO (08:21)
[2023-05-09] MEDS: TAFAMIDIS 61 MG CAPSULE PO (08:25)
[2023-05-09] MEDS: Nystatin Powder 15gm Bottle 1 APPLIC TOPICAL ×2 (11:24→21:16)
--- NOTE | 2023-05-09 11:43 | NURSING ---
Sheet Cutter Note; Activity Asset: Earnestine Arndt remains independent in her choice of daily activities. She has returned to TCU for continued therapy. her family is very involved in her care and visit daily along w/[place]. She has word search puzzles, books, her bible and will read the newspaper when not visiting w/family or in therapy. She did state she welcomes visit w/our glassine machine tender and therapy dog when available. Staff will remind her of weekly activities and respect her right to say no.
[2023-05-09 14:15] VITALS: O2SAT 99
--- NOTE | 2023-05-09 15:13 | PCM.PN.DRR ---
Documented by User: Teresita Sanabria 05/09/23 15:52 TCU RX Drug Regimen Review Subjective/Objective Subjective/Objective: Subjective: TCU Admission. 82 YOF presented to ER from TCU with fever/tachycardia. history significant for septic left shoulder, strep A bacteremia, hospitalized for severe sepsis secondary to acute bilateral mastoiditis, complicated by candiduria, hyperkalemia, elevated troponin, GI bleed 2/2 duodenal ulcer. Admitted to TCU with debility for strengthening and rehabilitation. Objective: Allergies Iodinated Contrast Media [Iodinated Contrast- Oral and IV Dye] Allergy (Severe, Verified 05/07/23 10:54) Hives iodine Allergy (Verified 05/07/23 10:54) Anaphylaxis Current Medications Generic Name Dose Route Start Last Admin Trade Name Freq PRN Reason Stop Dose Admin Acetaminophen 1,000 mg 05/08/23 20:29 Acetaminophen 500 Mg Tablet PO Q6H PRN PRN Pain Score 1-10 Ascorbic Acid 500 mg 05/09/23 10:00 05/09/23 08:21 Ascorbic Acid 500 Mg Tablet PO 500 mg 1000 STEF Administration Aspirin 81 mg 05/09/23 08:00 05/09/23 08:12 Aspirin E.C. 81 Mg [facility] Administration Atorvastatin Calcium 10 mg 05/08/23 22:00 05/08/23 20:34 Atorvastatin Calcium 10 Mg Tablet PO 10 mg QHS STEF Administration Calcium Carbonate 200 mg 05/08/23 22:00 05/09/23 08:20 Calcium Carbonate 500 Mg Tablet PO 200 mg BID STEF Administration Cholecalciferol 125 mcg 05/09/23 08:00 05/09/23 08:13 Cholecalciferol (Vit D3) 125 Mcg Capsule (5,000 Units) PO 125 [facility]cg [facility] Administration Compound Med 2 click 05/08/23 22:00 05/09/23 08:13 Arthritis Pain Compound 60 Click Tube TOPICAL 2 click BID [facility] Administration Protocol Doxepin HCl 10 mg 05/09/23 20:00 Doxepin Hydrochloride 10 Mg Capsule PO 2000 [facility] Enoxaparin Sodium 60 mg 05/08/23 22:00 05/08/23 20:31 Enoxaparin 60 Mg/0.6 Ml Syringe SC 60 mg QHS STEF Administration Gabapentin 300 mg 05/08/23 22:00 05/08/23 20:33 Gabapentin 300 Mg Capsule PO 300 mg QHS STEF Administration Heparin Sodium (Beef Lung) 50 units 05/08/23 14:46 Heparin Pf Lock 10 Units/Ml 50 Units/5 Ml Syringe IV UD PRN PICC Line Heparin Flush Piperacillin Sod/Tazobactam 50 mls @ 12.5 mls/hr 05/08/23 15:00 05/09/23 13:35 Sod 3.375 gm/ Sodium Chloride IV 05/17/23 22:01 12.5 mls/hr Q8 STEF Administration Levothyroxine Sodium 88 mcg 05/09/23 06:00 05/09/23 05:05 Levothyroxine 88 Mcg Tablet PO 88 mcg DAILY@0600 [facility] Administration Lidocaine/Diphenhydr/Alum/Mg/Simeth 5 ml 05/08/23 14:37 Bmx Liquid 180 Ml PO Q4H PRN PRN MOUTH PAIN Melatonin 3 mg 05/08/23 14:03 05/08/23 20:49 Melatonin 3 Mg Tablet PO 3 mg QHS PRN PRN Administration Insomnia Metoprolol Succinate 12.5 mg 05/09/23 10:00 05/09/23 08:16 Metoprolol(Xl)Succ 25 Mg Tablet PO 12.5 mg DAILY [facility] Administration Protocol Mirtazapine 7.5 mg 05/09/23 20:00 Mirtazapine 15 Mg Tablet PO 2000 [facility] Multivitamins/Minerals 1 cap 05/08/23 17:00 05/09/23 08:13 Multivitamin (Healthy Eyes) Capsule PO 1 cap BIDCM [facility] Administration Nystatin 1 applic 05/08/23 22:00 05/09/23 11:24 Nystatin Powder 15gm Bottle TOPICAL 1 applic BID [facility] Administration Protocol Nystatin 500,000 unit 05/08/23 17:00 05/09/23 11:25 Nystatin 500,000 Unit/5 Ml Udc PO 05/18/23 17:01 500,000 unit 4X/DAY STEF Administration Ondansetron HCl 4 mg 05/08/23 14:03 Ondansetron Odt 4 Mg Tablet PO Q8H PRN NAUSEA Pantoprazole Sodium 40 mg 05/08/23 22:00 05/09/23 08:15 Pantoprazole Sodium 40 Mg Tablet PO 07/23/23 23:59 40 mg BID STEF Administration Polysaccharide Iron Complex 150 mg 05/09/23 10:00 05/09/23 08:14 Iron Polysaccharide Complex 150 Mg Capsule PO 150 mg DAILY STEF Administration Senna/Docusate Sodium 1 tablet 05/08/23 22:00 05/09/23 08:16 Senna/Docusate Sodium 1 Tablet PO 1 tablet BID STEF Administration Sodium Chloride 10 - 40 ml 05/08/23 14:12 05/08/23 14:54 0.9% Saline Lock 10 Ml Syringe IV 20 ml UD PRN Administration SALINE FLUSH Sodium Chloride 250 ml 05/08/23 14:16 05/08/23 14:53 0.9% Normal Saline 250 Ml Iv.Soln. IV 250 ml DAILY PRN Administration IV flush Sodium Chloride 10 - 40 ml 05/08/23 14:46 0.9 % Nacl (Sterile) Posiflush 10 Ml IV UD PRN Port access or dressing change Sodium Chloride 10 - 40 ml 05/08/23 14:46 0.9% Saline Lock 10 Ml Syringe IV UD PRN Open End PICC Flush Sucralfate 1 gm 05/08/23 16:00 05/09/23 08:12 Sucralfate 1 Gm Tablet PO 06/04/23 23:59 1 gm BIDAC STEF Administration Throat Lozenges 1 lozenge 05/09/23 07:27 Benzocaine/Menthol 1 Lozenge MUCOUS MEM Q2H PRN SORE THROAT Problem List (Updated 05/08/23 @ 20:[address] David Avery MD) Insomnia (Acute) Vitamin D deficiency (Acute) Duodenal ulcer (Acute) Hyperkalemia (Acute) Candiduria (Acute) Acute bilateral mastoiditis (Acute) Severe sepsis (Acute) Elevated troponin (Acute) Cardiac amyloidosis (Acute) Coronary artery disease (Acute) Neuropathic pain (Acute) Upper GI bleed (Acute) Bleeding duodenal ulcer (Acute) Debility (Acute) Hyperlipidemia (Chronic) Hypothyroidism (Chronic) Vital Signs Temp Pulse Resp BP Pulse Ox O2 Del Method 98.3 F 84 16 138/73 H 99 Room Air 05/08/23 13:46 05/09/23 08:16 05/08/23 13:46 05/09/23 08:16 05/09/23 14:15 05/09/23 14:18 Oxygen Delivery Method Room Air Weight: 61.598 kg Body Mass Index (BMI) 22.6 Sodium 136 mmol/L (136-145) 05/09/23 05:12 Potassium 3.5 mmol/L (3.5-5.1) 05/09/23 05:12 Chloride 109 mmol/L (98-107) H 05/09/23 05:12 Carbon Dioxide 24.0 mmol/L (21.0-32.0) 05/09/23 05:12 Anion Gap 3 (5-15) L 05/09/23 05:12 BUN 10 mg/dL (7-18) 05/09/23 05:12 Creatinine 0.73 mg/dL (0.55-1.02) 05/09/23 05:12 Est GFR (MDRD) Af Amer 98 mL/min (>60) 05/09/23 05:12 Est GFR (MDRD) Non-Af 81 mL/min (>60) 05/09/23 05:12 BUN/Creatinine Ratio 13.7 RATIO (10-20) 05/09/23 05:12 Glucose 105 mg/dL (74-106) 05/09/23 05:12 Assessment/Plan: 1. Pain: acetaminophen 1000mg PO Q6H PRN pain 1-10 and arthritis pain compound 2 clicks topical BID. Resident hasn't had any PRN doses. Please continue to monitor for increased pain, PRN usage and rash. 2. Bowel: senna/docusate 1T PO BID. Please continue to monitor for constipation, diarrhea and PRN usage. Last documented bowel movement 05/06/23. 3. Thrush: nystatin 500,000units/5mL PO 4x/day thru 05/18/23, Cepacol 1 lozenge MM Q2H PRN sore throat and BMX 5mL PO Q4H PRN mouth pain. Resident has not had any Cepacol or BMX doses. Please continue to monitor for improvement in thrush, sore throat, mouth pain and PRN usage. 4. Acute bilateral mastoiditis: piperacillin/tazobactam 3.375gm IV Q8 thru 05/17/23. Please continue to monitor for S/S of infection, diarrhea and renal function. ID is consulted. 5. CAD: metoprolol succinate 12.5mg PO daily and aspirin 81mg PO dailycm. Please continue to monitor BP (last 138/73), HR (last 84), S/S of bleeding and hemoglobin (last 7.8g/dL). 6. Hyperlipidemia: atorvastatin 10mg PO QHS. Please continue to monitor lipid panel (last 04/26/23), LFTs (last 05/06/23) and muscle pain. 7. Hypothyroidism: levothyroxine 88mcg PO daily. Please continue to monitor TSH (last 05/05/23), T4 (last 05/05/23) and S/S of hypo/hyperthyroidism. 8. Duodenal ulcer: pantoprazole 40mg PO BID thru 07/23/23 and sucralfate 1gm PO BIDAC thru 06/04/23. Please continue to monitor for stomach pain, bleeding, constipation, diarrhea (BEERs medication) and magnesium (last 2.1mg/dL 05/04/23). 9. Cardiac amyloidosis: Tafamidis 61mg PO daily. Please continue to monitor. 10. Nausea: ondansetron 4mg PO Q8H PRN nausea. Resident has not had any doses. Please continue to monitor for nausea and PRN usage. 11. Vitamin D deficiency/macular degeneration: cholecalciferol 125mcg PO daily and healthy eyes 1C PO BID. Resident does not have a vitamin D level in the chart. Please consider ordering a vitamin D level if clinically appropriate. 12. Iron deficiency anemia: Ferrex 150mg PO daily and ascorbic acid 500mg PO daily. Please continue to monitor hemoglobin (7.8g/dL), iron studies (last 05/05/23), constipation and dark stools. 13. Calcium deficiency: calcium carbonate 200mg PO BIDCM. Please continue to monitor calcium levels (last 8.1mg/dL). 14. Recurrent DVT: enoxaparin 60mg PO QHS. Please continue to monitor for S/S of bleeding, hemoglobin, platelets (last 277,000) and renal function. 15. Urinary retention: tamsulosin 0.4mg PO daily. Please continue to monitor BP and S/S of urinary retention. Assessment/Plan for indications treated with psychotropic medications: 1. Neuropathic pain: gabapentin 300mg PO QHS. GDR not appropriate as this medication is being used for neuropathic pain. Please continue to monitor for pain, confusion, renal function, fall/fractures (BEERs medication). 2. Insomnia: doxepin 10mg PO 2000 and melatonin 3mg PO QHS PRN insomnia. Resident has had 1 dose of melatonin. Please see physician note regarding GDR. Please continue to monitor for excessive drowsiness, anticholinergic side effects (BEERs medications), BP (BEERs medication for orthostatic hypotension), dementia/delirium (BEERs medication), falls/fractures (BEERs medication) and PRN usage. 3. Appetite loss: mirtazapine 7.5mg PO 1999. Please see physician note regarding GDR. Per benefits representative note, resident consuming <50% of meals. Please continue to monitor sodium (last 136mmol/L), appetite and drowsiness. Medical chart and medication regimen reviewed. The following medication irregularities or issues were identified: 1. Cholecalciferol 125mcg PO daily. Resident does not have a vitamin D level in the chart. Please consider ordering a vitamin D level if clinically appropriate. Date Date of Note:: 05/09/23 Documented by User: Dr. David Avery MD 05/09/23 15:50 TCU RX Drug Regimen Review Provider Comments Provider responsibility Provider Comments to Recommendations by Pharmacy: Agree
[2023-05-09 15:19] VITALS: BP 144/74; PULSE 82; RESP 18; TEMP 36.6; O2SAT 94
[2023-05-09] MEDS: oxyCODONE 5 MG Tablet PO (17:18)
[2023-05-09] MEDS: Doxepin Hydrochloride 10 MG Capsule PO (21:08)
[2023-05-09] MEDS: Mirtazapine 15 MG Tablet 7.5 MG PO (21:14)
[2023-05-09] MEDS: Atorvastatin Calcium 10 MG Tablet PO (21:14)
[2023-05-09] MEDS: Enoxaparin 60 MG/0.6 ML Syringe SC (21:14)
[2023-05-09] MEDS: Calcium Carbonate 500 MG Tablet PO (21:15)
[2023-05-09] MEDS: Senna/Docusate Sodium 1 Tablet 2 TABLET PO (21:15)
[2023-05-09] MEDS: 0.9% Saline Lock 10 ML Syringe IV (21:16)
[2023-05-09] MEDS: Gabapentin 300 MG Capsule PO (21:57)
[2023-05-10 05:56] LABS: Hematocrit 26.8 % (37-47); Hemoglobin 8.2 g/dL (12.0-15.0)
[2023-05-10] MEDS: Levothyroxine 88 MCG Tablet PO (05:58)
[2023-05-10] MEDS: Sucralfate 1 GM Tablet PO ×2 (05:58→16:57)
[2023-05-10] MEDS: NYSTATIN 500,000 UNIT/5 ML UDC 500000 UNIT PO ×4 (05:58→22:00)
[2023-05-10] MEDS: traMADol 50 MG Tablet PO ×2 (06:03→22:05)
[2023-05-10] MEDS: Piperacil/Tazobactam 3.375 GM in 0.9% Normal Saline (50mL MB+) 50 ML IV ×3 (06:05→22:14)
[2023-05-10] MEDS: Aspirin E.C. 81 MG Tablet PO (08:01)
[2023-05-10] MEDS: Cholecalciferol (Vit D3) 125 MCG CAPSULE (5,000 UNITS) PO (08:01)
[2023-05-10] MEDS: Multivitamin (Healthy Eyes) Capsule 1 CAP PO ×2 (08:01→17:40)
[2023-05-10 08:49] LABS: Vitamin D,25 Hydroxy 78.5 ng/mL
[2023-05-10] MEDS: Pantoprazole Sodium 40 MG Tablet PO ×2 (10:05→22:00)
[2023-05-10] MEDS: Calcium Carbonate 500 MG Tablet PO ×2 (10:05→22:01)
[2023-05-10] MEDS: Iron Polysaccharide Complex 150 MG CAPSULE PO (10:05)
[2023-05-10] MEDS: Ascorbic Acid 500 MG Tablet PO (10:06)
[2023-05-10 10:07] VITALS: PULSE 96
[2023-05-10] MEDS: Metoprolol(XL)Succ 25 MG Tablet 12.5 MG PO (10:07)
[2023-05-10] MEDS: Senna/Docusate Sodium 1 Tablet 2 TABLET PO ×2 (10:08→22:01)
[2023-05-10] MEDS: TAFAMIDIS 61 MG CAPSULE PO (10:09)
[2023-05-10] MEDS: Nystatin Powder 15gm Bottle 1 APPLIC TOPICAL ×2 (10:10→22:01)
[2023-05-10] MEDS: Arthritis Pain Compound 60 CLICK TUBE TOPICAL ×2 (10:12→22:11)
--- NOTE | 2023-05-10 10:51 | PCM.PN.ID ---
Physical Exam Narrative Feeling ok, mild headache still, no fever Const alert and no apparent distress Resp normal air movement and clear to auscultation bilaterally Cardio regular rate and regular rhythm GI soft to palpation, non-tender and non-distended Skin no rashes or lesions noted ID ID: Route of nutrition/ use of supplements: [] Nutritional Intake: [] IV Site: [] Britton Catheter: [] Assessment & Plan Assessment/Plan (1) Candiduria: (2) Acute bilateral mastoiditis: PLAN: Temps resolved, MRI showed mastoiditis. Shoulder doing well. Cont empiric zosyn for 14 days total, stop date 05/18/23. Completed fluc for thrush, candiduria. Overall improving. Will follow as needed, thank you
[2023-05-10 13:21] VITALS: BP 107/71; PULSE 94; RESP 16; TEMP 36.4; O2SAT 98
[2023-05-10] MEDS: 0.9% Saline Lock 10 ML Syringe IV (15:34)
[2023-05-10] MEDS: Gabapentin 300 MG Capsule PO (21:58)
[2023-05-10] MEDS: Doxepin Hydrochloride 10 MG Capsule PO (21:59)
[2023-05-10] MEDS: Atorvastatin Calcium 10 MG Tablet PO (21:59)
[2023-05-10] MEDS: Enoxaparin 60 MG/0.6 ML Syringe SC (22:00)
[2023-05-10] MEDS: Mirtazapine 15 MG Tablet 7.5 MG PO (22:00)
[2023-05-10] MEDS: Menthol/Lanolin/Calamine/Znox 113 GM Tube 1 APPLIC TOPICAL (22:01)
[2023-05-10 23:35] VITALS: O2SAT 97
[2023-05-11 05:52] LABS: Hematocrit 26.8 % (37-47); Hemoglobin 8.3 g/dL (12.0-15.0)
[2023-05-11] MEDS: Levothyroxine 88 MCG Tablet PO (05:55)
[2023-05-11] MEDS: Sucralfate 1 GM Tablet PO ×2 (05:55→16:22)
[2023-05-11] MEDS: Piperacil/Tazobactam 3.375 GM in 0.9% Normal Saline (50mL MB+) 50 ML IV ×3 (05:55→21:55)
[2023-05-11] MEDS: NYSTATIN 500,000 UNIT/5 ML UDC 500000 UNIT PO ×4 (05:55→21:54)
[2023-05-11] MEDS: traMADol 50 MG Tablet PO (05:59)
[2023-05-11 09:33] VITALS: BP 134/73; PULSE 92
[2023-05-11] MEDS: Metoprolol(XL)Succ 25 MG Tablet 12.5 MG PO (09:33)
[2023-05-11] MEDS: Cholecalciferol (Vit D3) 125 MCG CAPSULE (5,000 UNITS) PO (09:33)
[2023-05-11] MEDS: Senna/Docusate Sodium 1 Tablet 2 TABLET PO ×2 (09:33→21:54)
[2023-05-11] MEDS: Pantoprazole Sodium 40 MG Tablet PO ×2 (09:33→21:54)
[2023-05-11] MEDS: Iron Polysaccharide Complex 150 MG CAPSULE PO (09:33)
[2023-05-11] MEDS: Aspirin E.C. 81 MG Tablet PO (09:33)
[2023-05-11] MEDS: Multivitamin (Healthy Eyes) Capsule 1 CAP PO ×2 (09:33→16:24)
[2023-05-11] MEDS: Calcium Carbonate 500 MG Tablet PO ×2 (09:34→21:54)
[2023-05-11] MEDS: Ascorbic Acid 500 MG Tablet PO (09:35)
[2023-05-11] MEDS: TAFAMIDIS 61 MG CAPSULE PO (09:36)
[2023-05-11] MEDS: Acetaminophen 500 MG Tablet 1000 MG PO (09:43)
[2023-05-11] MEDS: oxyCODONE 5 MG Tablet PO ×2 (09:43→23:44)
[2023-05-11 14:01] VITALS: BP 112/74; PULSE 84; RESP 14; TEMP 36.6; O2SAT 90
[2023-05-11] MEDS: 0.9% Saline Lock 10 ML Syringe IV ×3 (14:59→21:55)
[2023-05-11] MEDS: Nystatin Powder 15gm Bottle 1 APPLIC TOPICAL ×2 (15:04→22:06)
[2023-05-11] MEDS: Menthol/Lanolin/Calamine/Znox 113 GM Tube 1 APPLIC TOPICAL ×2 (15:04→22:05)
[2023-05-11] MEDS: Doxepin Hydrochloride 10 MG Capsule PO (21:53)
[2023-05-11] MEDS: Mirtazapine 15 MG Tablet 7.5 MG PO (21:53)
[2023-05-11] MEDS: Atorvastatin Calcium 10 MG Tablet PO (21:54)
[2023-05-11] MEDS: Gabapentin 300 MG Capsule PO (21:54)
[2023-05-11] MEDS: Enoxaparin 60 MG/0.6 ML Syringe SC (21:54)
[2023-05-11] MEDS: MELATONIN 3 MG TABLET PO (23:44)
[2023-05-12] MEDS: Piperacil/Tazobactam 3.375 GM in 0.9% Normal Saline (50mL MB+) 50 ML IV ×3 (06:42→23:01)
[2023-05-12] MEDS: 0.9% Saline Lock 10 ML Syringe IV ×2 (06:42→14:51)
[2023-05-12] MEDS: oxyCODONE 5 MG Tablet PO (06:49)
[2023-05-12] MEDS: Levothyroxine 88 MCG Tablet PO (06:49)
[2023-05-12] MEDS: NYSTATIN 500,000 UNIT/5 ML UDC 500000 UNIT PO ×4 (06:49→20:13)
[2023-05-12] MEDS: Sucralfate 1 GM Tablet PO ×2 (06:49→16:27)
[2023-05-12 06:52] VITALS: PULSE 80; O2SAT 95
[2023-05-12 08:15] LABS: Hematocrit 27.1 % (37-47); Hemoglobin 8.5 g/dL (12.0-15.0)
[2023-05-12] MEDS: Calcium Carbonate 500 MG Tablet PO ×2 (08:59→20:12)
[2023-05-12] MEDS: Multivitamin (Healthy Eyes) Capsule 1 CAP PO ×2 (08:59→17:49)
[2023-05-12] MEDS: Aspirin E.C. 81 MG Tablet PO (08:59)
[2023-05-12] MEDS: Cholecalciferol (Vit D3) 125 MCG CAPSULE (5,000 UNITS) PO (09:01)
[2023-05-12] MEDS: Pantoprazole Sodium 40 MG Tablet PO ×2 (09:01→20:12)
[2023-05-12] MEDS: Iron Polysaccharide Complex 150 MG CAPSULE PO (09:01)
[2023-05-12 09:02] VITALS: BP 140/66; PULSE 82
[2023-05-12] MEDS: Ascorbic Acid 500 MG Tablet PO (09:02)
[2023-05-12] MEDS: Senna/Docusate Sodium 1 Tablet 2 TABLET PO ×2 (09:02→20:12)
[2023-05-12] MEDS: Metoprolol(XL)Succ 25 MG Tablet 12.5 MG PO (09:02)
[2023-05-12] MEDS: TAFAMIDIS 61 MG CAPSULE PO (09:04)
[2023-05-12] MEDS: Nystatin Powder 15gm Bottle 1 APPLIC TOPICAL ×2 (09:05→20:18)
[2023-05-12] MEDS: Menthol/Lanolin/Calamine/Znox 113 GM Tube 1 APPLIC TOPICAL ×2 (09:05→20:19)
[2023-05-12 09:10] VITALS: BP 140/66; PULSE 82
[2023-05-12 15:28] VITALS: BP 124/66; PULSE 85; RESP 16; TEMP 36.7; O2SAT 96
[2023-05-12] MEDS: Atorvastatin Calcium 10 MG Tablet PO (20:12)
[2023-05-12] MEDS: Doxepin Hydrochloride 10 MG Capsule PO (20:12)
[2023-05-12] MEDS: Enoxaparin 60 MG/0.6 ML Syringe SC (20:12)
[2023-05-12] MEDS: Mirtazapine 15 MG Tablet 7.5 MG PO (20:12)
[2023-05-12] MEDS: Gabapentin 300 MG Capsule PO (20:15)
[2023-05-13] MEDS: Levothyroxine 88 MCG Tablet PO (05:33)
[2023-05-13] MEDS: NYSTATIN 500,000 UNIT/5 ML UDC 500000 UNIT PO ×4 (05:33→20:33)
[2023-05-13] MEDS: Sucralfate 1 GM Tablet PO ×2 (05:33→16:24)
[2023-05-13] MEDS: Piperacil/Tazobactam 3.375 GM in 0.9% Normal Saline (50mL MB+) 50 ML IV ×3 (05:33→22:16)
[2023-05-13 05:40] LABS: Hematocrit 28.1 % (37-47); Hemoglobin 8.3 g/dL (12.0-15.0)
[2023-05-13] MEDS: Aspirin E.C. 81 MG Tablet PO (08:46)
[2023-05-13] MEDS: Multivitamin (Healthy Eyes) Capsule 1 CAP PO ×2 (08:47→17:15)
[2023-05-13] MEDS: Cholecalciferol (Vit D3) 125 MCG CAPSULE (5,000 UNITS) PO (08:47)
[2023-05-13] MEDS: Iron Polysaccharide Complex 150 MG CAPSULE PO (08:47)
[2023-05-13 08:48] VITALS: BP 125/68; PULSE 93
[2023-05-13] MEDS: Pantoprazole Sodium 40 MG Tablet PO ×2 (08:48→20:33)
[2023-05-13] MEDS: Senna/Docusate Sodium 1 Tablet 2 TABLET PO ×2 (08:48→20:34)
[2023-05-13] MEDS: Metoprolol(XL)Succ 25 MG Tablet 12.5 MG PO (08:48)
[2023-05-13] MEDS: Calcium Carbonate 500 MG Tablet PO ×2 (08:50→20:35)
[2023-05-13] MEDS: Nystatin Powder 15gm Bottle 1 APPLIC TOPICAL ×2 (08:51→20:38)
[2023-05-13] MEDS: Ascorbic Acid 500 MG Tablet PO (08:51)
[2023-05-13] MEDS: TAFAMIDIS 61 MG CAPSULE PO (08:51)
[2023-05-13] MEDS: Menthol/Lanolin/Calamine/Znox 113 GM Tube 1 APPLIC TOPICAL ×2 (08:52→20:38)
[2023-05-13 09:00] VITALS: BP 125/68; PULSE 93
[2023-05-13] MEDS: 0.9% Saline Lock 10 ML Syringe IV (14:21)
[2023-05-13 15:02] VITALS: BP 126/65; PULSE 84; RESP 16; TEMP 37; O2SAT 97
[2023-05-13] MEDS: Enoxaparin 60 MG/0.6 ML Syringe SC (20:33)
[2023-05-13] MEDS: Gabapentin 300 MG Capsule PO (20:33)
[2023-05-13] MEDS: Mirtazapine 15 MG Tablet 7.5 MG PO (20:34)
[2023-05-13] MEDS: Atorvastatin Calcium 10 MG Tablet PO (20:34)
[2023-05-13] MEDS: Doxepin Hydrochloride 10 MG Capsule PO (20:34)
[2023-05-14] MEDS: Piperacil/Tazobactam 3.375 GM in 0.9% Normal Saline (50mL MB+) 50 ML IV ×3 (05:47→21:35)
[2023-05-14] MEDS: Levothyroxine 88 MCG Tablet PO (05:48)
[2023-05-14] MEDS: NYSTATIN 500,000 UNIT/5 ML UDC 500000 UNIT PO ×3 (05:49→21:36)
[2023-05-14 06:15] LABS: Hematocrit 27.5 % (37-47); Hemoglobin 8.3 g/dL (12.0-15.0)
[2023-05-14] MEDS: traMADol 50 MG Tablet PO (08:07)
[2023-05-14] MEDS: Ascorbic Acid 500 MG Tablet PO (08:09)
[2023-05-14] MEDS: Calcium Carbonate 500 MG Tablet PO ×2 (08:09→21:35)
[2023-05-14 08:10] VITALS: BP 149/63; PULSE 79
[2023-05-14] MEDS: Metoprolol(XL)Succ 25 MG Tablet 12.5 MG PO (08:10)
[2023-05-14] MEDS: Senna/Docusate Sodium 1 Tablet 2 TABLET PO ×2 (08:10→21:36)
[2023-05-14] MEDS: Multivitamin (Healthy Eyes) Capsule 1 CAP PO ×2 (08:10→18:07)
[2023-05-14] MEDS: Pantoprazole Sodium 40 MG Tablet PO ×2 (08:10→21:36)
[2023-05-14] MEDS: Aspirin E.C. 81 MG Tablet PO (08:11)
[2023-05-14] MEDS: Cholecalciferol (Vit D3) 125 MCG CAPSULE (5,000 UNITS) PO (08:11)
[2023-05-14] MEDS: Iron Polysaccharide Complex 150 MG CAPSULE PO (08:11)
[2023-05-14] MEDS: TAFAMIDIS 61 MG CAPSULE PO (08:12)
[2023-05-14 08:16] VITALS: BP 149/63; PULSE 79; RESP 16; O2SAT 99
[2023-05-14] MEDS: Menthol/Lanolin/Calamine/Znox 113 GM Tube 1 APPLIC TOPICAL ×2 (10:54→21:54)
[2023-05-14] MEDS: Nystatin Powder 15gm Bottle 1 APPLIC TOPICAL ×2 (10:54→21:52)
--- NOTE | 2023-05-14 12:08 | NURSING ---
Offered covid vaccine, VIS provided. Patient refuses at this time.
[2023-05-14 13:27] VITALS: TEMP 36.8
[2023-05-14] MEDS: Sucralfate 1 GM Tablet PO (16:30)
[2023-05-14] MEDS: Atorvastatin Calcium 10 MG Tablet PO (21:36)
[2023-05-14] MEDS: Gabapentin 300 MG Capsule PO (21:36)
[2023-05-14] MEDS: Enoxaparin 60 MG/0.6 ML Syringe SC (21:36)
[2023-05-14] MEDS: Doxepin Hydrochloride 10 MG Capsule PO (21:36)
[2023-05-14] MEDS: Mirtazapine 15 MG Tablet 7.5 MG PO (21:37)
[2023-05-14] MEDS: MELATONIN 3 MG TABLET PO (21:46)
[2023-05-15 06:03] LABS: Hematocrit 26.7 % (37-47); Hemoglobin 8.3 g/dL (12.0-15.0)
[2023-05-15] MEDS: NYSTATIN 500,000 UNIT/5 ML UDC 500000 UNIT PO ×4 (06:11→21:24)
[2023-05-15] MEDS: Piperacil/Tazobactam 3.375 GM in 0.9% Normal Saline (50mL MB+) 50 ML IV ×3 (06:11→21:26)
[2023-05-15] MEDS: Sucralfate 1 GM Tablet PO ×2 (06:11→15:43)
[2023-05-15] MEDS: Levothyroxine 88 MCG Tablet PO (06:11)
[2023-05-15] MEDS: Acetaminophen 500 MG Tablet 1000 MG PO (06:11)
[2023-05-15 10:01] VITALS: BMI 21.5
[2023-05-15] MEDS: Senna/Docusate Sodium 1 Tablet 2 TABLET PO ×2 (10:22→21:24)
[2023-05-15] MEDS: Multivitamin (Healthy Eyes) Capsule 1 CAP PO ×2 (10:22→17:50)
[2023-05-15] MEDS: Cholecalciferol (Vit D3) 125 MCG CAPSULE (5,000 UNITS) PO (10:22)
[2023-05-15] MEDS: Iron Polysaccharide Complex 150 MG CAPSULE PO (10:22)
[2023-05-15] MEDS: Aspirin E.C. 81 MG Tablet PO (10:22)
[2023-05-15] MEDS: Pantoprazole Sodium 40 MG Tablet PO ×2 (10:22→21:24)
[2023-05-15] MEDS: Ascorbic Acid 500 MG Tablet PO (10:23)
[2023-05-15] MEDS: Calcium Carbonate 500 MG Tablet PO ×2 (10:23→21:25)
[2023-05-15] MEDS: TAFAMIDIS 61 MG CAPSULE PO (10:25)
[2023-05-15 10:26] VITALS: BP 123/75; PULSE 79
[2023-05-15] MEDS: Metoprolol(XL)Succ 25 MG Tablet 12.5 MG PO (10:26)
[2023-05-15] MEDS: Nystatin Powder 15gm Bottle 1 APPLIC TOPICAL ×2 (10:33→21:24)
[2023-05-15] MEDS: Menthol/Lanolin/Calamine/Znox 113 GM Tube 1 APPLIC TOPICAL ×2 (10:34→21:23)
[2023-05-15] MEDS: 0.9% Saline Lock 10 ML Syringe IV ×2 (12:56→15:41)
[2023-05-15 13:12] VITALS: BP 132/59; PULSE 81; RESP 18; TEMP 36.8; O2SAT 99
[2023-05-15] MEDS: Gabapentin 300 MG Capsule PO (21:18)
[2023-05-15] MEDS: Arthritis Pain Compound 60 CLICK TUBE TOPICAL (21:19)
[2023-05-15] MEDS: Mirtazapine 15 MG Tablet 7.5 MG PO (21:19)
[2023-05-15] MEDS: Doxepin Hydrochloride 10 MG Capsule PO (21:21)
[2023-05-15] MEDS: Atorvastatin Calcium 10 MG Tablet PO (21:22)
[2023-05-15] MEDS: Enoxaparin 60 MG/0.6 ML Syringe SC (21:23)
[2023-05-15] MEDS: MELATONIN 3 MG TABLET PO (21:29)
[2023-05-15] MEDS: traMADol 50 MG Tablet PO (21:33)
[2023-05-16 05:57] LABS: Absolute Lymphocyte Count 1.66 X10^3/uL (0.83-4.51); Absolute Neutrophil Count 2.3 X10^3/uL (2.0-7.7); Basophil# 0.03 X10^3/uL; Basophil% 0.6 % (0-1); Eosinophil# 0.17 X10^3/uL; Eosinophils% 3.6 % (0-5); Hematocrit 27.6 % (37-47); Hemoglobin 8.6 g/dL (12.0-15.0); Lymphocyte # 1.66 X10^3/ul (0.83-4.51); Lymphocyte % 35.2 % (19-41); Mean Corp Hgb Conc 31.2 g/dL (32-36); Mean Corpuscular Volume 89.9 fL (81-99); Mean Platelet Vol. 8.6 fl (6.2-12.0); Monocyte# 0.51 X10^3/uL; Monocyte% 10.8 % (0-10); NRBC Flagged by Analyzer 0 % (0-5); Neutrophil # 2.28 X10^3/uL (2.7-7.7); Neutrophil % 48.5 % (47-70); Platelet Count 345 K/mm3 (150-450); RBC Distribution Width CV 18.3 % (11.6-14.6); RBC Distribution Width SD 58.7 fl (35.1-43.9); Red Blood Count 3.07 M/mm3 (4.2-5.4); White Blood Count 4.7 K/mm3 (4.4-11.0)
[2023-05-16] MEDS: Levothyroxine 88 MCG Tablet PO (06:23)
[2023-05-16] MEDS: NYSTATIN 500,000 UNIT/5 ML UDC 500000 UNIT PO ×4 (06:23→20:38)
[2023-05-16] MEDS: Sucralfate 1 GM Tablet PO ×2 (06:23→16:02)
[2023-05-16] MEDS: Piperacil/Tazobactam 3.375 GM in 0.9% Normal Saline (50mL MB+) 50 ML IV ×3 (06:24→20:40)
[2023-05-16] MEDS: traMADol 50 MG Tablet PO ×2 (06:26→20:45)
[2023-05-16 06:45] LABS: Anion Gap 7 (5-15); BUN 9 mg/dL (7-18); BUN/Creat Ratio 12.9 RATIO (10-20); Calcium,Total 8.2 mg/dL (8.5-10.1); Chloride 111 mmol/L (98-107); EST Glomerular Filtration Rate 85 mL/min (>60); Est Glom Filt Rate - Afr Amer 103 mL/min (>60); Estimated Creatinine Clearance 48.79 ml/min; Glucose 94 mg/dL (74-106); Potassium 3.3 mmol/L (3.5-5.1); Sodium Level 143 mmol/L (136-145)
[2023-05-16 07:35] VITALS: O2SAT 96
[2023-05-16] MEDS: Cholecalciferol (Vit D3) 125 MCG CAPSULE (5,000 UNITS) PO (08:16)
[2023-05-16] MEDS: Multivitamin (Healthy Eyes) Capsule 1 CAP PO ×2 (08:16→17:17)
[2023-05-16] MEDS: Aspirin E.C. 81 MG Tablet PO (08:16)
[2023-05-16] MEDS: Iron Polysaccharide Complex 150 MG CAPSULE PO (08:16)
[2023-05-16 08:17] VITALS: BP 153/74; PULSE 77
[2023-05-16] MEDS: Metoprolol(XL)Succ 25 MG Tablet 12.5 MG PO (08:17)
[2023-05-16] MEDS: Senna/Docusate Sodium 1 Tablet 2 TABLET PO ×2 (08:17→20:39)
[2023-05-16] MEDS: Pantoprazole Sodium 40 MG Tablet PO ×2 (08:17→20:38)
[2023-05-16] MEDS: Nystatin Powder 15gm Bottle 1 APPLIC TOPICAL (08:18)
[2023-05-16] MEDS: Ascorbic Acid 500 MG Tablet PO (08:18)
[2023-05-16] MEDS: TAFAMIDIS 61 MG CAPSULE PO (08:18)
[2023-05-16] MEDS: Menthol/Lanolin/Calamine/Znox 113 GM Tube 1 APPLIC TOPICAL (08:18)
[2023-05-16] MEDS: Calcium Carbonate 500 MG Tablet PO ×2 (08:18→20:39)
[2023-05-16] MEDS: Potassium Chloride Oral Tablet 20 MEQ 40 MEQ PO (08:28)
[2023-05-16 08:35] VITALS: BP 153/74; PULSE 77
[2023-05-16] MEDS: 0.9% Saline Lock 10 ML Syringe IV ×2 (10:56→13:33)
--- NOTE | 2023-05-16 13:04 | CASEMGMT ---
Addendum entered by Carol Mathis 05/18/23 10:15: Late entry from 05/17/23: SW updated [facility] and [employer] via [facility] of postponed DC. Original Note: Social Work IDT met with patient, , son and dtr for care plan meeting. Discussed patient's progress in PT/OT/SN. Educated to Medicare benefit and copay coverage. SW requested family provide advanced directives. Pt is requesting to DC home. IDT agreeable. Offered DC 05/20. Pt and family agreeable. Confirmed DC needs: [facility] and [facility] PT/OT/SN. Pt states she used [facility] prior and agreeable to use again. Family to transport. SW sent referral to [facility] for PT/OT/SN via [facility] and [employer]. Plan: DC home with 05/20, [facility] PT/OT/SN, [facility] Carol Mathis, [employer]OW[employer]
--- NOTE | 2023-05-16 13:54 | NURSING ---
Parts Inspector Note; MDS for 05/15/2023 Complete
[2023-05-16 16:00] VITALS: BP 130/86; PULSE 76; RESP 16; TEMP 37.2; O2SAT 97
--- NOTE | 2023-05-16 19:35 | PCM.DC.SUM ---
Providers Date of Admission: 05/08/23 Primary Care Physician: Dr. Radha Mcrae MD Consultations 05/08/23 17:37 Consult: Infectious Disease Routine Consulting Provider: Daquan Anthony Reason for Consult: Antibiotic management EMERGENT Consult: No MD Notified: Yes Date Notified: 05/08/23 Time Notified: 17:37 Method of Notification: Text Reason For Visit: HYPOTENTION,FEVER,GENERAL WEAKNESS Diagnosis Discharge Diagnosis (1) Candiduria: Status: Acute Code(s): B37.49 - Other urogenital candidiasis (2) Acute bilateral mastoiditis: Status: Acute Code(s): H70.003 - Acute mastoiditis without complications, bilateral Plan 82 year old female with below past medical history significant for septic left shoulder, strep A bacteremia, hospitalized for severe sepsis secondary to acute bilateral mastoiditis, complicated by candiduria, hyperkalemia, elevated troponin, GI bleed 2/2 duodenal ulcer, admitted to TCU with debility, here for rehabilitation, strengthening, intravenous antibiotics, prior to discharge home with . Debility - PT/OT. Pain - Tylenol 1000mg q6 prn pain (1-10), Arthritis pain compound 2 clicks topical bid. Bowel - senna/colace 1 tablet bid. Adult immunization - Administer pneumonia vaccine, covid vaccine, flu vaccine as appropriate. DVT prophylaxis - on Lovenox 60mg sc daily. Iron deficiency anemia - Ferrex 150mg daily, Vitamin C 500mg daily. Coronary artery disease - Metoprolol succinate 12.5mg daily, Aspirin 81mg daily. Hyperlipidemia - Atorvastatin 10mg qhs. Thrush - Nystatin 500,000 4x/day x 10 days, Cepacol lozenge q2, bmx 5ml q6 prn Calcium deficiency - TUMS 200mg bid. Vitamin D deficiency - D3 125mcg daily. Appetite loss - Mirtazapine 7.5mg qhs, stable use, GDR not recommended. Macular degeneration - Healthy Eye 1 capsule bid. Tinea Corporis - Nystatin powder topical bid. Nausea - Zofran odt 4mg q8 prn. Acute bilateral mastoiditis - Zosyn 3.375gm iv q8 thru 05/07/2023. Insomnia - Doxepin 10mg qhs, stable use, GDR not recommended, Melatonin 3mg qhs. Recurrent DVT - Lovenox 60mg sc daily. Neuropathic pain - Gabapentin 300mg qhs. Hypothyroidism - Levothyroxine 88mcg daily. Duodenal ulcer - Pantoprazole 40mg bid thru 07/23/2023, Sucralfate 1gm bid thru 06/04/2023. Cardiac amyloidosis - Tafamidis 61mg daily. Urinary retention - Tamsulosin 0.4mg daily. Medications at Discharge Home Medications levothyroxine 88 mcg tablet 88 mcg PO DAILY THYROID 05/27/18 aspirin 81 mg tablet,delayed release (Adult Aspirin Regimen) 81 mg PO DAILY HEART HEALTH 12/12/19 tafamidis 61 mg capsule 61 mg PO DAILY HEART FAILURE 12/12/19 cholecalciferol (vitamin D3) 125 mcg (5,000 unit) capsule 125 mcg PO DAILY SUPPLEMENT 04/15/20 metoprolol succinate 25 mg tablet,extended release 24 hr (Toprol XL) 12.5 mg PO DAILY BLOOD PRESSURE 07/13/22 vitamins A,C,I-ywff-ohysyr 4,296 mcg-226 mg-90 mg capsule (PreserVision AREDS) 1 cap PO BID EYE HEALTH 01/11/23 gabapentin 300 mg capsule 300 mg PO QHS NEUROPATHY 02/16/23 MAGIC MOUTH WASH (BMX) 180 mL suspension 5 ml PO Q4H PRN Mouth pain #180 mL 04/20/23 benzocaine 6 mg-menthol 10 mg lozenges 1 salvatore mucous membrane Q2H Sore throat 04/20/23 diclofenac sodium 1 % topical gel (Voltaren Arthritis Pain) 2 g topical 4X/DAY Arthritis pain 04/20/23 ascorbate calcium (vitamin C) 500 mg tablet 500 mg PO DAILY Supplement 05/03/23 atorvastatin 10 mg tablet (Lipitor) 10 mg PO QHS Cholestrol 05/03/23 calcium carbonate 200 mg calcium (500 mg) chewable tablet (Tums) 200 mg PO BID Supplement 05/03/23 doxepin 10 mg capsule 10 mg PO QHS sleep 05/03/23 acetaminophen 325 mg tablet 650 mg (2 x 325 mg) PO Q6H PRN PRN Pain 1-10 Or Fever >100.7 #0 tabs 05/08/23 melatonin 3 mg tablet 3 mg PO QHS PRN PRN Insomnia #0 tabs 05/08/23 piperacillin-tazobactam 3.375 gram/50 mL dextrose(iso-os) IV piggyback (Zosyn) 3.375 g (56.25 mL) IV Q8H Antibiotic 9 days 05/08/23 acetaminophen 500 mg tablet 1,000 mg (2 x 500 mg) PO Q6H PRN PRN Pain Score 1-3 #0 tabs 05/16/23 ascorbic acid (vitamin C) 500 mg tablet 500 mg PO 1000 30 days #30 tabs 05/16/23 doxepin 10 mg capsule 10 mg PO 1999 30 days #30 caps 05/16/23 mirtazapine 15 mg tablet 7.5 mg (1/2 x 15 mg) PO 1999 30 days #15 tabs 05/16/23 pantoprazole 40 mg tablet,delayed release 40 mg PO BID 30 days #60 tabs 05/16/23 polysaccharide iron complex 150 mg iron capsule (Ferrex) 150 mg PO DAILY 30 days #30 caps 05/16/23 potassium chloride 20 mEq tablet,extended release(part/cryst) 20 meq PO DAILYCM 30 days #30 tabs 05/16/23 sucralfate 1 gram tablet 1 g PO BIDAC 30 days #60 tabs 05/16/23 tramadol 50 mg tablet 50 mg PO Q6H PRN PRN Pain Score 4-5 30 days #120 tabs 05/16/23 Hospital Course Operations None Procedures None Summary of Care Provided Minutes Spent on Discharge: 35 Hospital Course: 82 year old female with below past medical history significant for septic left shoulder, strep A bacteremia, hospitalized for severe sepsis secondary to acute bilateral mastoiditis, complicated by candiduria, hyperkalemia, elevated troponin, GI bleed 2/2 duodenal ulcer, admitted to TCU with debility, here for rehabilitation, strengthening, intravenous antibiotics, prior to discharge home with . Discharge home with 05/20/2023, [facility] PT/OT/SN, FWW. FWW: Patient is unsafe to use a cane and requires a walker for ambulation in the home and the community. Physical Exam Const alert General Appearance: cooperative HEENT normocephalic Eyes PERRL and EOMs intact bilaterally Neck supple, no JVD and no carotid bruits Resp normal respiratory effort, normal air movement and clear to auscultation bilaterally Cardio regular rate and regular rhythm GI normal to inspection, nondistended, normoactive bowel sounds, non-tender and non-distended Extremity normal capillary refill General Extremity: Negative for edema Skin no rashes or lesions noted General Skin Exam: no breakdown Psych affect normal Appearance: appropriate Weight / BMI Weight Weight: 58.786 kg Body Mass Index (BMI) 21.5 ABG / Lab / Microbiology Data 05/16/23 05:09 05/16/23 05:09 Laboratory: Laboratory Results - last 24 hr 05/16/23 05:09: WBC 4.7, RBC 3.07 L, Hgb 8.6 L, Hct 27.6 L, MCV 89.9, MCH 28.0, MCHC 31.2 L, RDW Std Deviation 58.7 H, RDW Coeff of Rashmi 18.3 H, Plt Count 345, MPV 8.6, Immature Gran % (Auto) 1.300 H, Neut % (Auto) 48.5, Lymph % (Auto) 35.2, [place] % (Auto) 10.8 H, Eos % (Auto) 3.6, Baso % (Auto) 0.6, Absolute Neuts (auto) 2.3, Absolute Lymphs (auto) 1.66, Nucleated RBC % 0, Sodium 143, Potassium 3.3 L, Chloride 111 H, Carbon Dioxide 25.0, Anion Gap 7, BUN 9, Creatinine 0.70, Estim Creat Clear Calc 48.79, Est GFR (MDRD) Af Amer 103, Est GFR (MDRD) Non-Af 85, BUN/Creatinine Ratio 12.9, Glucose 94, Calcium 8.2 L Microbiology: Microbiology 05/14/23 06:50 Nasal Secretion SARS-CoV-2 Antigen (Rapid) - Final 05/10/23 04:35 Nasal Secretion SARS-CoV-2 Antigen (Rapid) - Final 05/09/23 05:10 Nasal Secretion SARS-CoV-2 Antigen (Rapid) - Final D/C Instructions Discharge Diet: No restrictions Discharge Activity: Return to Normal Activity, May Shower and Use Walker Weight Bearing Status: Weight bearing as tolerated Call your doctor if you observe: Fever of 101 or Higher, Inability to urinate, Inability to have a bowel movement, Shortness of breath, Dizziness, Fainting spells, Swelling in the ankles, Chest pain and Uncontrolled pain Additional Instructions: Discharge home with 05/20/2023, [facility] PT/OT/SN, FWW. FWW: Patient is unsafe to use a cane and requires a walk Meaningful Use Info Meaningful Use Diagnoses (Choose all that apply): None applicable Discharge Plan Admission Admit Date/Time: 05/08/23 13:29 Primary Reason for Your Visit: Debility. Attending Provider: David Avery Chi Primary Care Provider: Radha Mcrae Consulting Providers: Daquan Anthony Instructions Additional Instructions / Restrictions: Discharge home with 05/20/2023, [facility] PT/OT/SN, FWW. FWW: Patient is unsafe to use a cane and requires a walk Discharge Orders/Prescriptions Prescriptions: New doxepin 10 mg Capsule 10 mg PO 1999 30 Days Qty: 30 0RF acetaminophen 500 mg Tablet 1,000 mg PO Q6H PRN PRN (Reason: Pain Score 1-3) Qty: 0 0RF ascorbic acid (vitamin C) 500 mg Tablet 500 mg PO 999 30 Days Qty: 30 0RF sucralfate 1 gram Tablet 1 g PO BIDAC 30 Days Qty: 60 0RF polysaccharide iron complex [Ferrex 150] 150 mg iron Capsule 150 mg PO DAILY 30 Days Qty: 30 0RF tramadol 50 mg Tablet 50 mg PO Q6H PRN PRN (Reason: Pain Score 4-5) 30 Days Qty: 120 0RF potassium chloride 20 mEq Tablet,Er Particles/Crystals 20 meq PO DAILYCM 30 Days Qty: 30 0RF pantoprazole 40 mg Tablet,Delayed Release (Dr/Ec) 40 mg PO BID 30 Days Qty: 60 0RF mirtazapine 15 mg Tablet 7.5 mg PO 1999 30 Days Qty: 15 0RF Continued aspirin [Adult Aspirin Regimen] 81 mg tablet,delayed release (DR/EC) 81 mg PO DAILY tafamidis 61 mg capsule 61 mg PO DAILY cholecalciferol (vitamin D3) 125 mcg (5,000 unit) capsule 125 mcg PO DAILY metoprolol succinate [Toprol XL] 25 mg tablet extended release 24 hr 12.5 mg PO DAILY PreserVision AREDS 4,296 mcg-226 mg-90 mg capsule 1 cap PO BID levothyroxine 88 mcg tablet 88 mcg PO DAILY atorvastatin [Lipitor] 10 mg tablet 10 mg PO QHS calcium carbonate [Tums] 200 mg calcium (500 mg) tablet,chewable 200 mg PO BID melatonin 3 mg Tablet 3 mg PO QHS PRN PRN (Reason: Insomnia) Qty: 0 0RF gabapentin 300 mg capsule 300 mg PO QHS Rx Instructions: Take for 180 days Discontinued enoxaparin [Lovenox] 60 mg/0.6 mL syringe 60 mg SC QHS Hold Instructions: pt unsure if taking or when to start? Patient Comments: To start taking on April 26, 2023. ondansetron 4 mg tablet,disintegrating 4 mg PO Q8H PRN (Reason: NAUSEA ) pantoprazole 40 mg tablet,delayed release (DR/EC) 40 mg PO BID polysaccharide iron complex [Ferrex 150] 150 mg iron capsule 150 mg PO DAILY nystatin 100,000 unit/gram powder 1 applic topical BID mirtazapine 7.5 mg tablet 7.5 mg PO QHS nystatin 100,000 unit/mL Suspension 500,000 unit PO 4X/DAY 5 Days Qty: 0 0RF sucralfate 1 gram Tablet 1 g PO BIDAC Qty: 0 0RF sennosides-docusate sodium [Stool Softener-Stimulant Laxat] 8.6-50 mg Tablet 2 tab PO BID PRN PRN (Reason: Constipation) Qty: 0 0RF tamsulosin 0.4 mg Capsule 0.4 mg PO DAILY@1730 Qty: 0 0RF No Action benzocaine-menthol 6-10 mg lozenge 1 salvatore mucous membrane Q2H diclofenac sodium [Voltaren Arthritis Pain] 1 % gel 2 g topical 4X/DAY MAGIC MOUTH WASH (BMX) 180 mL suspension 5 ml PO Q4H PRN Qty: 180 doxepin 10 mg capsule 10 mg PO QHS ascorbate calcium (vitamin C) 500 mg tablet 500 mg PO DAILY Zosyn in dextrose (iso-osm) 3.375 gram/50 mL piggyback 3.375 g IV Q8H 9 Days Rx Instructions: stop date 05/18/23 dx: mastoiditis weekly bmp and cbc. Fax to [phone]. Routine midline care per protocol. acetaminophen 325 mg Tablet 650 mg PO Q6H PRN PRN (Reason: Pain 1-10 Or Fever >100.7) Qty: 0 0RF Referrals / Follow Up: Radha Mcrae MD [Primary Care Provider] - Disposition Disposition (needs filled in before D/C Order can be placed): Home Health Service
[2023-05-16] MEDS: Gabapentin 300 MG Capsule PO (20:38)
[2023-05-16] MEDS: Enoxaparin 60 MG/0.6 ML Syringe SC (20:39)
[2023-05-16] MEDS: Doxepin Hydrochloride 10 MG Capsule PO (20:40)
[2023-05-16] MEDS: Atorvastatin Calcium 10 MG Tablet PO (20:40)
[2023-05-16] MEDS: Mirtazapine 15 MG Tablet 7.5 MG PO (20:41)
[2023-05-17] MEDS: Piperacil/Tazobactam 3.375 GM in 0.9% Normal Saline (50mL MB+) 50 ML IV (05:15)
[2023-05-17] MEDS: NYSTATIN 500,000 UNIT/5 ML UDC 500000 UNIT PO (05:16)
[2023-05-17] MEDS: Levothyroxine 88 MCG Tablet PO (05:16)
[2023-05-17 06:15] LABS: Hematocrit 24.8 % (37-47); Hemoglobin 7.8 g/dL (12.0-15.0)
[2023-05-17 06:37] LABS: Anion Gap 4 (5-15); BUN 11 mg/dL (7-18); BUN/Creat Ratio 17.2 RATIO (10-20); Calcium,Total 7.9 mg/dL (8.5-10.1); Chloride 111 mmol/L (98-107); Creatinine, Serum 0.64 mg/dL (0.55-1.02); EST Glomerular Filtration Rate 95 mL/min (>60); Est Glom Filt Rate - Afr Amer 115 mL/min (>60); Estimated Creatinine Clearance 48.79 ml/min; Glucose 110 mg/dL (74-106); Potassium 4.2 mmol/L (3.5-5.1); Sodium Level 141 mmol/L (136-145)
--- NOTE | 2023-05-17 07:03 | NURSING ---
BALL W[employer]PER TENDER came and found this nurse stating that patient was feeling light headed. Vitals were taken 113/70, HR 109. Patient then started feeling sick to her stomach, when standing to get wiped copious amounts of blood in toilet was observed. Hemoglobin was lower than previous day. Vitals were retaken BP 126/73, HR 124. Dr Avery notified, and order to send to ER was given. Patient was taken down to ER, was called and updated and report called to ER.
--- NOTE | 2023-06-07 14:42 | MDS.RN ---
[facility] error rejected original admission MDS report TRACY 05/15/23
== END 2023-05-17 07:00 | disposition home health service (06) | DRG 152 ==
PROVIDERS: Admitting Provider Family Medicine Geriatric Medicine; PCP Internal Medicine; Visit Provider Family Medicine Geriatric Medicine
DX: H70.003 Acute mastoiditis without complications, bilateral (principal); K26.4 Chronic or unspecified duodenal ulcer with hemorrhage; M00.212 Other streptococcal arthritis, left shoulder; E85.9 Amyloidosis, unspecified; E85.4 Organ-limited amyloidosis; I43 Cardiomyopathy in diseases classified elsewhere; I42.2 Other hypertrophic cardiomyopathy; B37.49 Other urogenital candidiasis; D50.9 Iron deficiency anemia, unspecified; E89.0 Postprocedural hypothyroidism; I10 Essential (primary) hypertension; I25.10 Atherosclerotic heart disease of native coronary artery without angina pectoris; G62.9 Polyneuropathy, unspecified; H35.30 Unspecified macular degeneration; E78.5 Hyperlipidemia, unspecified; E55.9 Vitamin D deficiency, unspecified; B35.4 Tinea corporis; Z79.01 Long term (current) use of anticoagulants; Z79.82 Long term (current) use of aspirin; G47.00 Insomnia, unspecified; R33.9 Retention of urine, unspecified; Z86.718 Personal history of other venous thrombosis and embolism; Z79.899 Other long term (current) drug therapy; Z79.890 Hormone replacement therapy; K26.9 Duodenal ulcer, unspecified as acute or chronic, without hemorrhage or perforation
CPT/HCPCS: 36415; 80048; 82306; 85014; 85018; 85025; 87811; 97110; 97116; 97162; 97166; 97530; 97535; 97802; J7050; A4216

== ENCOUNTER 2023-05-17 07:01 | Inpatient (IN) | payer MEDICARE, OTHER, SELFPAY ==
[2023-05-17] VITALS (11 sets, daily range): BP systolic 93–120; BP diastolic 51–66; PULSE 86–117; RESP 14–18; TEMP 36.2–36.7; O2SAT 92–100; BMI 21.4; BMI 20.9
--- NOTE | 2023-05-17 07:17 | EKG12_ITS ---
Test Reason : GI BLEED Blood Pressure : / mmHG Vent. Rate : 111 BPM Atrial Rate : 111 BPM P-R Int : 196 ms QRS Dur : 088 ms QT Int : 336 ms P-R-T Axes : 051 -37 086 degrees QTc Int : 456 ms Sinus tachycardia Left axis deviation Cannot rule out Inferior infarct , age undetermined Anteroseptal infarct , age undetermined Abnormal ECG Confirmed by Berry Schaefer ([id number]), managing editor EDIS WEAVER ([id number]) on 05/18/2023 9:28:59 AM Referred By: Confirmed By:Berry Schaefer
--- NOTE | 2023-05-17 07:20 | ED.VIS.GI ---
HPI HPI - GI History of Present Illness Chief Complaint: GI Bleed Detail of Chief Complaint: Bloody stool with orthostatic symptoms Informant: patient Abdominal Pain/Flank Pain Onset: Today Context: Sudden Onset Timing: Continuous Quality: Cramping Location: Epigastric Current Severity: Mild Maximum Severity: Moderate Worsened by: Nothing Relieved by: Nothing Nausea/Vomiting/Emesis GI Symptom: Positive for Nausea (With dry heaves.) Onset: Today Diarrhea/Melena/Hematochezia GI Symptom: Positive for Melena and Hematochezia; Negative for Diarrhea Onset: Today Severity: Moderate Associated Symptoms Associated Symptoms: Negative for Dysuria, Frequency, Hematuria or Urgency Narrative Narrative: Patient is an elderly woman who presents from TCU because of large bloody stool with orthostatic symptoms. 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 She has history of hypofibrinogenemia. During her most recent admission she had a GI bleed. She was seen by Dr. Addison. She was found to have a duodenal ulcer. Patient presently complains of not feeling well. She denies fever, chills night sweats. Denies headache, visual, ocular auditory symptoms. She denies chest pain. She denies shortness of breath. She does complain of lightheadedness. She denies orthopnea or PND. She denies dysuria, frequency, urgency or hematuria. Review of medications decayed patient is also on aspirin and Voltaren. Will need to confirm. Prior similar symptoms: Yes Recent Illness/Hospitalization: Yes (Urinary tract infection with sepsis, GI bleed and admitted beginning of the) [facility] Medical History Abdominal pain Abdominal pain Abnormal stress echo Acid reflux Arthritis Atherosclerosis of [place] coronary artery of [place] heart without angina pectoris Back problem Cellulitis of left lower extremity Chest pain Constipation Diverticulitis of sigmoid colon DVT (deep venous thrombosis) Essential hypertension Gastrointestinal hemorrhage Heart murmur Hemorrhoids History of pulmonary embolus (PE) (~2009) History of venous thrombosis and embolism hx of APLL Hyperlipidemia Hypertension Hypertrophic cardiomyopathy Hypofibrinogenemia Hypothyroidism Kidney disease LVH (left ventricular 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 Palpitations Personal history of colonic polyps Severe left ventricular hypertrophy Severe mitral regurgitation Thrombophlebitis of superficial veins of left lower extremity Wild-type transthyretin-related (ATTR) amyloidosis Home Medications levothyroxine 88 mcg tablet 88 mcg PO DAILY THYROID 05/27/18 [History Last Taken 04/04/23] aspirin 81 mg tablet,delayed release (Adult Aspirin Regimen) 81 mg PO DAILY HEART HEALTH 12/12/19 [History Last Taken 05/08/23] tafamidis 61 mg capsule 61 mg PO DAILY HEART FAILURE 12/12/19 [History Last Taken 05/08/23] cholecalciferol (vitamin D3) 125 mcg (5,000 unit) capsule 125 mcg PO DAILY SUPPLEMENT 04/15/20 [History Last Taken 04/04/23] metoprolol succinate 25 mg tablet,extended release 24 hr (Toprol XL) 12.5 mg PO DAILY BLOOD PRESSURE 07/13/22 [History Last Taken 05/08/23] vitamins A,C,R-vsuq-muxmqn 4,296 mcg-226 mg-90 mg capsule (PreserVision AREDS) 1 cap PO BID EYE HEALTH 01/11/23 [History Last Taken 04/04/23] gabapentin 300 mg capsule 300 mg PO QHS NEUROPATHY 02/16/23 [History Last Taken 05/07/23] MAGIC MOUTH WASH (BMX) 180 mL suspension 5 ml PO Q4H PRN Mouth pain #180 mL 04/20/23 [History Last Taken Unknown] benzocaine 6 mg-menthol 10 mg lozenges 1 salvatore mucous membrane Q2H Sore throat 04/20/23 [History Last Taken Unknown] diclofenac sodium 1 % topical gel (Voltaren Arthritis Pain) 2 g topical 4X/DAY Arthritis pain 04/20/23 [History Last Taken Unknown] ascorbate calcium (vitamin C) 500 mg tablet 500 mg PO DAILY Supplement 05/03/23 [History Last Taken Unknown] atorvastatin 10 mg tablet (Lipitor) 10 mg PO QHS Cholestrol 05/03/23 [History Last Taken Unknown] calcium carbonate 200 mg calcium (500 mg) chewable tablet (Tums) 200 mg PO BID Supplement 05/03/23 [History Last Taken Unknown] doxepin 10 mg capsule 10 mg PO QHS sleep 05/03/23 [History Last Taken Unknown] acetaminophen 325 mg tablet 650 mg (2 x 325 mg) PO Q6H PRN PRN Pain 1-10 Or Fever >100.7 #0 tabs 05/08/23 [Rx Last Taken Unknown] melatonin 3 mg tablet 3 mg PO QHS PRN PRN Insomnia #0 tabs 05/08/23 [Rx Last Taken Unknown] piperacillin-tazobactam 3.375 gram/50 mL dextrose(iso-os) IV piggyback (Zosyn) 3.375 g (56.25 mL) IV Q8H Antibiotic 9 days 05/08/23 [Rx Last Taken Unknown] acetaminophen 500 mg tablet 1,000 mg (2 x 500 mg) PO Q6H PRN PRN Pain Score 1-3 #0 tabs 05/16/23 [Rx Last Taken Unknown] ascorbic acid (vitamin C) 500 mg tablet 500 mg PO 999 30 days #30 tabs 05/16/23 [Rx Last Taken Unknown] doxepin 10 mg capsule 10 mg PO 1999 30 days #30 caps 05/16/23 [Rx Last Taken Unknown] mirtazapine 15 mg tablet 7.5 mg (1/2 x 15 mg) PO 1999 30 days #15 tabs 05/16/23 [Rx Last Taken Unknown] pantoprazole 40 mg tablet,delayed release 40 mg PO BID 30 days #60 tabs 05/16/23 [Rx Last Taken Unknown] polysaccharide iron complex 150 mg iron capsule (Ferrex) 150 mg PO DAILY 30 days #30 caps 05/16/23 [Rx Last Taken Unknown] potassium chloride 20 mEq tablet,extended release(part/cryst) 20 meq PO DAILYCM 30 days #30 tabs 05/16/23 [Rx Last Taken Unknown] sucralfate 1 gram tablet 1 g PO BIDAC 30 days #60 tabs 05/16/23 [Rx Last Taken Unknown] tramadol 50 mg tablet 50 mg PO Q6H PRN PRN Pain Score 4-5 30 days #120 tabs 05/16/23 [Rx Last Taken Unknown] Allergy/AdvReac Type Severity Reaction Status Date / Time Iodinated Contrast Media Allergy Severe Hives Verified 05/07/23 10:54 [Iodinated Contrast- Oral and IV Dye] iodine Allergy Anaphylaxis Verified 05/07/23 10:54 Family History Mother Colon cancer Brother Myeloma Father Heart disease Surgical History History of cholecystectomy History of left heart catheterization (10/22/19) History of left hip replacement History of right hip replacement Hx of arthroscopic knee surgery Hx of bilateral inguinal hernia repair Hx of bladder repair surgery Hx of hysterectomy Hx of partial thyroidectomy Hx of umbilical hernia repair (~2009) Social History household members: spouse Smoking Status: Never smoker second hand exposure: No alcohol intake: never substance use type: does not use caffeine: Yes (very rare) what type of physical activity do you participate in: none frequency: does not exercise seatbelt use: always ROS ROS ED Constitutional Constitutional ED: Denies chills, fever(s), subjective or sweats ENT ENT ED: Denies ear pain or rhinorrhea Cardiovascular Cardiovascular: Reports racing heartbeat; Denies chest pain, orthopnea, palpitations or paroxysmal nocturnal dyspnea Respiratory/Chest Respiratory/Chest: Denies cough, dyspnea, dyspnea on exertion, orthopnea or paroxysmal nocturnal dyspnea Gastrointestinal Gastrointestinal: Reports abdominal pain, melena and nausea; Denies constipation, diarrhea or vomiting Genitourinary Genitourinary ED: Denies dysuria, hematuria or urinary frequency Musculoskeletal Musculoskeletal: Denies arthralgias or myalgias Integumentary Denies abscess or rash Neurologic Neurologic: Reports weakness; Denies headache(s) or paresthesias Endocrine Endocrinology: Denies polydipsia or polyuria Hematologic/Lymphatic Hematologic/Lymphatic: Reports easy bleeding and easy bruising EXAM Physical Exam Const Vital Signs: 05/17/23 07:02 Temperature 97.2 F L Temperature Source Temporal Pulse Rate 117 H Respiratory Rate 18 Blood Pressure 113/58 L Blood Pressure Mean 76 Pulse Ox 98 Oxygen Delivery Method Room Air Positive well nourished and well developed Constitutional Narrative: Patient's vitals are marked for tachycardia with a heart rate of 122 on the monitor. Complexes narrow. Rhythm is sinus. Patient appears pale. General Appearance ED: well developed and pallor HEENT Reports TM's clear and dry mucous membranes normocephalic and atraumatic Tympanic Membrane ED: Yes TM's clear Mouth ED: Yes dry mucous membranes Mouth: dry mucous membranes Eyes PERRL and EOMs intact bilaterally General Eye ED: Yes pale conjunctiva; Negative for scleral icterus Neck no lymphadenopathy, supple and no JVD Resp normal respiratory effort and clear to auscultation bilaterally Cardio regular rhythm, S1 normal heart sound, S2 normal heart sound and no murmurs Rate: tachycardic GI non-distended and no masses; Negative for non-tender GI Narrative: Patient has dark maroon stool. Inspection: Negative for abdominal distention Auscultation: hyperactive bowel sounds Palpation: soft and tender epigastric Back/Spine no CVA tenderness Extremity full ROM General Extremety ED: Negative for edema or tenderness General Extremity: Negative for edema Neuro CN's II-XII intact bilaterally and moves all extremities Sensorium / Orientation: alert Psych mental status grossly normal and thought process normal Skin no wounds General Skin Exam: pallor; Negative for jaundice Lesions: no lesions Rashes: no rashes MDM MDM MDM Narrative Medical decision making narrative: History and physical is consistent with GI bleed. Suspect patient is anemic and has orthostatic symptoms. Since she is tachycardic fluid bolus was ordered. Stat type and screen was ordered. Once CBC is returned and PTT will contact Dr. Addison. After reviewing medical records and finding the patient was treated this month for peptic ulcer disease will administer IV Protonix. EKG was obtained to evaluate for cardiac ischemia. History & Record Review Additional record(s) reviewed:: Prior inpatient record (Documented in the HPI and MDM narrative.) Lab Data Attestation: I reviewed the patient's lab results. Lab results narrative: BMP is remarkable for chloride of 112. BUN and creatinine are normal at 12 and 0.76 with a BUN/creatinine ratio of 15:1. Glucose elevated 146 with normal CO2 anion gap. Labs: Laboratory Results - last 24 hr 05/17/23 07:47 WBC 8.0 RBC 2.73 L Hgb 7.7 L Hct 25.2 L MCV 92.3 MCH 28.2 MCHC 30.6 L RDW Std Deviation 61.1 H RDW Coeff of Rashmi 18.5 H Plt Count 378 MPV 8.6 Immature Gran % (Auto) 1.500 H Neut % (Auto) 56.8 Lymph % (Auto) 28.5 [place] % (Auto) 10.2 H Eos % (Auto) 2.6 Baso % (Auto) 0.4 Absolute Neuts (auto) 4.6 Absolute Lymphs (auto) 2.29 Nucleated RBC % 0 Sodium 140 Potassium 4.1 Chloride 112 H Carbon Dioxide 23.0 Anion Gap 5 BUN 12 Creatinine 0.76 Estim Creat Clear Calc 48.79 Est GFR (MDRD) Af Amer 93 Est GFR (MDRD) Non-Af 77 BUN/Creatinine Ratio 15.7 Glucose 146 H Calcium 8.2 L Rhythm Strip Rhythm Strip: Sinus Tach Rate: 122 Ectopy: None EKG Initial EKG: Attestation: I personally reviewed and interpreted this EKG as follows: Interpretation: Sinus Tachycardia (Rate is 111. [place] interval is 196 ms. QRS duration 88 ms. QT duration 236 ms. [place] is to the left. There is decreased anterior force noted.) Management Discussion w/another healthcare provider: Hospitalist (Dr. Castaneda) and Area Sales Manager (Spoke to Dr. Addison. He requested a CTA of the abdomen and pelvis. CTA order was placed and patient had a anaphylactic reaction earlier this month to contrast.) Critical Care Time Critical Care Time: Yes Critical care time (excluding procedures): 30-74 minutes (31), Including time spent: (History, physical, documentation, review of prior records, initiation of therapy), Discussing w/Patient &/or Family/[employer] Services Supervisor, Discussing w/Consultants (Hospitalist and GI) and Arranging Admission or Transfer Discharge Plan Dx/Rx/DC Orders Clinical Impression: Acute upper gastrointestinal bleeding, Hypertrophic cardiomyopathy, Wild-type transthyretin-related (ATTR) amyloidosis, Essential hypertension, Signs and symptoms of anemia, Symptomatic anemia, Sinus tachycardia, Anemia due to acute blood loss, Anticoagulant long-term use Disposition Disposition: Acute Care [facility]
--- OUTSIDE RECORDS SUMMARY | 2023-05-17 07:46 | XMS RPT_ITS | CCD ---
Author Name Unknown Address [id number] [place] [address] Organization [facility] Care Team Providers Care Driver Trainer Name Role Phone Clementina COYLE, Gab Primary Care Provider Brayan Pringle MD Unavailable Diane VÁZQUEZ, Fredrick Valdez Unavailable UnavailJose Luo MD Unavailable Darrin COYLE, Rito Sanders Unavailable Clementina COYLE, Gab Primary Care Provider Brayan Pringle MD Unavailable Fredrick Walker RN Unavailable Roberto Valera MD, Rito Sanders Unavailable Brayan Pringle MD Unavailable [phone] Diane Alcala RN Unavailable Unavailjayy Pisano MD, [facility] Primary Care Provider Brayan Pringle MD Unavailable Diane Alcala RN Unavailable Unavailjayy Valera MD, Rito Sanders Unavailable Clementina COYLE, Gab Primary Care Provider Diane Alcala RN Unavailable Roberto Valera MD, Rito Sanders Unavailable GAB PISANO Primary Care Unavailable TERRANCE PRITCHARD Referring Unavailabl e GANTA, GAB Primary Care Unavailable RAMOSTERRANCE PEACOCK Referring Unavailabl e GANTA, GAB Primary Care Unavailable TERRANCE PRITCHARD Referring Unavailabl Genia Ramirez Referring Unavailable TYLERTA, [facility] Primary Care Unavailable DAWN, SANJEEB Referring Unavailabl [...] Referring Unavailable GANTA, GAB Primary Care Unavailable KYEEVI A Referring Unavailable GANTA, GAB [...] Unavailable DAWN, SANJEEB Referring Unavailabl e DAWN, SHIRA Attending Unavailabl e GANTA, GAB Primary Care Unavailable EUGENIO HERNANDEZ Referring Unavailable GANTA, GAB Primary Care Unavailable FINELiane, Genia BAUTISTA Referring Unavailable [facility], [facility] Primary Care Unavailable Genia RUBY Referring Unavailable Genia RUBY Attending Unavailable [facility], [facility] Primary Care Unavailable KYE, MAZEN A Referring Unavailable [facility], [facility] Primary Care Unavailable KYE, MAZEN A Referring Unavailable [facility], [facility] Primary Care Unavailable DAWN, SANJEEB Referring Unavailabl e [facility], [facility] Primary Care Unavailable ELIAN, MARYBEL Attending Unavailable GAN, [facility] Primary Care Unavailable ELIAN, MARYBEL Referring Unavailable PERCIC, DEBRA Referring Unavailable [facility], [facility] Primary Care Unavailable MASCI, OMER A Referring Unavailable MASCI, OMER A Attending Unavailable [facility], [facility] Primary Care Unavailable Courtney MONTANO Referring Unavailable KYE, MAZEN A Attending Unavailable [facility], [facility] Primary Care Unavailable Courtney MONTANO Referring Unavailable [facility], [facility] Primary Care Unavailable MASCI, OMER A Referring Unavailable MASCI, OMER A Attending Unavailable [facility], [facility] Primary Care Unavailable Allergies Allergy Classification Reported Allergen(s) Allergy Type Date of Onset Reaction(s) Facility (20 sources) Iodine; Translations: [IODINE] Drug Allergy 12-19-2004 Hives, Anaphylaxis [facility] Medications Current Medications Medication Drug Class(es) Dates Sig (Normalized) Sig (Original) amoxicillin 500 mg oral capsule (2 sources) Penicillin-class Antibacterial Start: 04-21-2023 End: 05-05-2023 take 2 capsules by mouth every twelve hours amoxicillin (AMOXIL) 500 mg capsule Take 2 capsules by mouth every 12 hours for 14 days. Patient should start on April 21, 2023. 0 04/21/2023 05/05/2023 Active Completed/Discontinued Medications Medication Drug Class(es) Dates Sig (Normalized) Sig (Original) acetaminophen 500 mg oral tablet (20 sources) Start: 04-20-2023 take 2 tablets enteral route every eight hours as needed acetaminophen (TYLENOL) 500 mg tablet 2 tablets by ORAL/FEEDING TUBE route every 8 hours as needed for pain. 0 04/20/2023 Active Problems Active Problems Problem Classification Problem Date Documented Da te Episodic/Chronic Acute and unspecified renal failure (12 sources) [id number] renal failure; Translations: [Acute kidney failure, unspecified] Onset: 4 04-14-2023 Episodic Acute posthemorrhagic anemia (4 sources) Acute posthemorrhagic anemia; Translations: [Acute posthemorrhagic anemia] Onset: 4 04-12-2023 Episodic Allergic reactions (5 sources) Allergy to contrast media; Translations: [Radiographic dye allergy status] Onset: 4 Episodic Anxiety disorders (20 sources) Acute stress disorder; Translations: [Acute stress reaction] Onset: 1 09-16-2020 Chronic Bacterial infection; unspecified site (4 sources) Streptococcal infectious disease; Translations: [Streptococcus, group A, as the cause of diseases classified elsewhere] Onset: 4 04-08-2023 Episodic Cardiac dysrhythmias (1 source) Palpitations; Translations: [Palpitations] Episodic Chronic kidney disease (20 sources) Chronic kidney disease stage 3; Translations: [Chronic kidney disease (CKD), stage III (moderate)] Onset: 7 07-27-2016 Chronic Chronic kidney disease (1 source) Chronic kidney disease; Translations: [Hypertensive kidney disease with stage 3a chronic kidney disease (HCC)] Onset: 2 Chronic ulcer of skin (4 sources) Pressure-induced deep tissue damage of left heel; Translations: [Pressure ulcer, heel] Onset: 4 04-17-2023 Chronic Coagulation and hemorrhagic disorders (20 sources) Dysfibrinogenemia; Translations: [Hereditary deficiency of other clotting factors] Onset: 0 11-05-2014 Chronic Congestive heart failure; nonhypertensive (20 sources) Chronic diastolic heart failure; Translations: [Chronic diastolic (congestive) heart failure] Onset: 2 06-22-2021 Chronic Coronary atherosclerosis and other heart disease (20 sources) Coronary atherosclerosis; Translations: [Atherosclerotic heart disease of [place] coronary artery without angina pectoris] Onset: 2 [...] [Essential (primary) hypertension] Onset: 0 11-13-2019 Chronic Fluid and electrolyte disorders (16 sources) Hyponatremia; Translations: [Hypo-osmolality and hyponatremia] Onset: 4 04-09-2023 Episodic Gastrointestinal hemorrhage (4 sources) Gastrointestinal hemorrhage; Translations: [Chronic or unspecified duodenal ulcer with hemorrhage] Onset: 4 04-12-2023 Chronic Gastrointestinal hemorrhage (8 sources) Acute duodenal ulcer with hemorrhage; Translations: [Acute duodenal ulcer with hemorrhage] Onset: 4 04-12-2023 Episodic Genitourinary symptoms and ill-defined conditions (20 sources) [...] caused by tuberculosis or sexually transmitted disease) (9 sources) Pyogenic arthritis of shoulder region; Translations: [Pyogenic arthritis, unspecified] Onset: 4 04-07-2023 Episodic Malaise and fatigue (1 source) Fatigue; Translations: [Other fatigue] Episodic Nausea and vomiting (6 sources) Vomiting without nausea; Translations: [Vomiting without nausea] Onset: 4 Episodic Nutritional deficiencies (4 sources) Undernutrition; Translations: [Mild protein-calorie malnutrition] Onset: 4 04-12-2023 Chronic Osteoarthritis (20 sources) Osteoarthritis of right hip [...] Onset: 6 03-29-2021 Chronic Other gastrointestinal disorders (4 sources) Functional diarrhea; Translations: [Functional diarrhea] Onset: 4 04-06-2023 Episodic Other gastrointestinal disorders (4 sources) Dysphagia; Translations: [Dysphagia, unspecified] Onset: 4 04-16-2023 Episodic Other gastrointestinal disorders (1 source) Diarrhea, unspecified; [...] limbs] 10-12-2022 Chronic Other nervous system disorders (4 sources) Metabolic encephalopathy; Translations: [Metabolic encephalopathy] Onset: 4 04-14-2023 Chronic Other nervous system disorders (1 source) Carpal tunnel syndrome, bilateral upper limbs; Translations: [Carpal tunnel syndrome, bilateral] Onset: 4 Chronic Other nervous system disorders (1 source) Polyneuropathy, unspecified; Translations: [Neuropathy] Onset: 3 Chronic Other non-traumatic joint disorders (2 sources) Shoulder pain; Translations: [Pain in right shoulder] Episodic Other non-traumatic joint disorders (4 sources) Pain in left shoulder; Translations: [Pain in joint, shoulder region] Onset: 4 04-06-2023 Episodic Other nutritional; endocrine; and metabolic disorders (20 sources) Cardiomyopathy; 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] Onset: 0 11-13-2019 Chronic Other nutritional; endocrine; and metabolic disorders (20 sources) Senile systemic amyloidosis; 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] Onset: 0 12-05-2019 Chronic Other nutritional; endocrine; and metabolic disorders (20 sources) Hereditary amyloidosis; 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] Onset: 3 Chronic Other nutritional; endocrine; and metabolic disorders (4 sources) Amyloidosis; 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] Onset: 3 04-06-2023 Chronic Other nutritional; endocrine; and metabolic disorders [...] state; Translations: [Other specified postprocedural states] Episodic Respiratory failure; insufficiency; arrest (adult) (4 sources) Acute respiratory failure; Translations: [Acute respiratory failure with hypoxia] Onset: 4 04-14-2023 Episodic Shock (1 source) Shock, unspecified; Translations: [...] without cholecystitis without obstruction] Onset: 03-29-2022 Episodic Nonspecific chest pain (5 sources) Non-cardiac chest pain; Translations: [Other chest pain] Onset: 11-10-2019 04-06-2023 Episodic Other aftercare (20 sources) Long-term current use of anticoagulant; Translations: [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] Onset: 04-17-2016 04-17-2016 [...] 14:51-0500 Body height 162.6 cm Omer Narvaez DO Work Phone: [facility] 02-05-2023 14:51-0500 Body temperature 97.5 [degF] Omer Masci DO Work Phone: [facility] 02-05-2023 14:51-0500 Body weight 61.69 kg Omer Sheriffi DO Work Phone: [facility] 02-05-2023 14:51-0500 Diastolic blood pressure 73 mm[Hg] Omer Sheriffi DO Work Phone: [facility] 02-05-2023 14:51-0500 Heart rate 69 /min Omer Sheriffi DO Work Phone: [facility] 02-05-2023 14:51-0500 SaO2% (BldA) [Mass fraction] 96 % Omer Sheriffi DO Work Phone: [facility] 02-05-2023 14:51-0500 Systolic blood pressure 117 mm[Hg] Omer Sheriffi DO Work Phone: [facility] 01-29-2023 13:35-0400 Body height 165.1 cm Shira Martinez MD Work Phone: [facility] 01-29-2023 13:35-0400 Body temperature 97.9 [degF] Shira Martinez MD Work Phone: [facility] 01-29-2023 13:35-0400 Body weight 61.01 kg Shira Martinez MD Work Phone: [facility] 01-29-2023 13:35-0400 Diastolic blood pressure 67 mm[Hg] Shira Martinez MD Work Phone: [facility] 01-29-2023 13:35-0400 Heart rate 63 /min Shira Martinez MD Work Phone: [facility] 01-29-2023 13:35-0400 Respiratory rate 18 /min Shira Martinez MD Work Phone: [facility] 01-29-2023 13:35-0400 SaO2% (BldA) [Mass fraction] 96 % Shira Martinez MD Work Phone: [facility] 01-29-2023 13:35-0400 Systolic blood pressure 122 mm[Hg] Shira Martinez MD Work Phone: [facility] 12-07-2022 09:12-0400 Body weight 60.33 kg Nuvia Older WINDING LATHE OPERATOR.[employer] Work Phone: [facility] 12-07-2022 09:12-0400 Diastolic blood pressure 70 mm[Hg] Nuvia Older WINDING LATHE OPERATOR.[employer] Work Phone: [facility] 12-07-2022 09:12-0400 Heart rate 68 /min Nuvia Older WINDING LATHE OPERATOR.[employer] Work Phone: [facility] 12-07-2022 09:12-0400 Respiratory rate 16 /min Nuvia Older WINDING LATHE OPERATOR.[employer] Work Phone: [facility] 12-07-2022 09:12-0400 SaO2% (BldA) [Mass fraction] 96 % Nuvia Older WINDING LATHE OPERATOR.[employer] Work Phone: [facility] 12-07-2022 09:12-0400 Systolic blood pressure 118 mm[Hg] Nuvia Older WINDING LATHE OPERATOR.[employer] Work Phone: [facility] 12-05-2022 09:52-0400 Body weight 60.33 kg Eugenio Hernandez MD Work Phone: [facility] 12-05-2022 09:52-0400 Diastolic blood pressure 76 mm[Hg] Eugenio Hernandez MD Work Phone: [facility] 12-05-2022 09:52-0400 Heart rate 72 /min Eugenio Hernandez MD Work Phone: [facility] 12-05-2022 09:52-0400 Respiratory rate 16 /min Eugenio Hernandez MD Work Phone: [facility] 12-05-2022 09:52-0400 Systolic blood pressure 126 mm[Hg] Eugenio Hernandez MD Work Phone: [facility] 11-22-2022 17:36-0400 Body temperature 97.59 [degF] Nuvia Older WINDING LATHE OPERATOR.[employer] Work Phone: [facility] 11-22-2022 17:36-0400 Body weight 61.24 kg Nuvia Older WINDING LATHE OPERATOR.[employer] Work Phone: [facility] 11-22-2022 17:36-0400 Diastolic blood pressure 84 mm[Hg] Nuvia Older WINDING LATHE OPERATOR.[employer] Work Phone: [facility] 11-22-2022 17:36-0400 Heart rate 78 /min Nuvia Older WINDING LATHE OPERATOR.[employer] Work Phone: [facility] 11-22-2022 17:36-0400 Respiratory rate 16 /min Nuvia Older WINDING LATHE OPERATOR.[employer] Work Phone: [facility] 11-22-2022 17:36-0400 SaO2% (BldA) [Mass fraction] 98 % Nuvia Older WINDING LATHE OPERATOR.[employer] Work Phone: [facility] 11-22-2022 17:36-0400 Systolic blood pressure 132 mm[Hg] Nuvia Older WINDING LATHE OPERATOR.[employer] Work Phone: [facility] 11-08-2022 11:40-0400 Body height 165.1 cm Shira Martinez MD Work Phone: [facility] 11-08-2022 11:40-0400 Body temperature 98.1 [degF] Shira Martinez MD Work Phone: [facility] 11-08-2022 11:40-0400 Body weight 61.24 kg Shira Martinez MD Work Phone: [facility] 11-08-2022 11:40-0400 Diastolic blood pressure 70 mm[Hg] Shira Martinez MD Work Phone: [facility] 11-08-2022 11:40-0400 Heart rate 64 /min Shira Martinez MD Work Phone: [facility] 11-08-2022 11:40-0400 Respiratory rate 15 /min Shira Martinez MD Work Phone: [facility] 11-08-2022 11:40-0400 SaO2% (BldA) [Mass fraction] 96 % Shira Martinez MD Work Phone: [facility] 11-08-2022 11:40-0400 Systolic blood pressure 132 mm[Hg] Shira Martinez MD Work Phone: [facility] 10-12-2022 15:08-0400 Body weight 61.24 kg Eugenio Hernandez MD Work Phone: [facility] 10-12-2022 15:08-0400 Diastolic blood pressure 74 mm[Hg] Eugenio Hernandez MD Work Phone: [facility] 10-12-2022 15:08-0400 Heart rate 68 /min Eugenio Hernandez MD Work Phone: [facility] 10-12-2022 15:08-0400 Respiratory rate 16 /min Eugenio Hernandez MD Work Phone: [facility] 10-12-2022 15:08-0400 Systolic blood pressure 130 mm[Hg] Eugenio Hernandez MD Work Phone: [facility] 08-07-2022 14:21-0400 Body temperature 97.59 [degF] Omer Masci DO Work Phone: [facility] 08-07-2022 14:21-0400 Body weight 61.69 kg Omer Masci DO Work Phone: [facility] 08-07-2022 14:21-0400 Diastolic blood pressure 74 mm[Hg] Omer Masci DO Work Phone: [facility] 08-07-2022 14:21-0400 Heart rate 73 /min Omer Masci DO Work Phone: [facility] 08-07-2022 14:21-0400 Systolic blood pressure 125 mm[Hg] Omer Masci DO Work Phone: [facility] 06-26-2022 17:31-0400 Body temperature 97.81 [degF] Krislyn Aberegg PA Work Phone: [facility] 06-26-2022 17:31-0400 Body weight 62.78 kg Krislyn Aberegg PA Work Phone: [facility] 06-26-2022 17:31-0400 Diastolic blood pressure 72 mm[Hg] Krislyn Aberegg PA Work Phone: [facility] 06-26-2022 17:31-0400 Heart rate 70 /min Krislyn Aberegg PA Work Phone: [facility] 06-26-2022 17:31-0400 Respiratory rate 18 /min Krislyn Aberegg PA Work Phone: [facility] 06-26-2022 17:31-0400 SaO2% (BldA) [Mass fraction] 98 % Krislyn Aberegg PA Work Phone: [facility] 06-26-2022 17:31-0400 Systolic blood pressure 124 mm[Hg] Krislyn Aberegg PA Work Phone: [facility] 06-02-2022 09:41-0500 Body height 165.1 cm Gab Pisano MD Work Phone: [facility] 06-02-2022 09:41-0500 Body temperature 97.39 [degF] Gab Pisano MD Work Phone: [facility] 06-02-2022 09:41-0500 Body weight 62.14 kg Gab Pisano MD Work Phone: [facility] 06-02-2022 09:41-0500 Diastolic blood pressure 68 mm[Hg] Gab Pisano MD Work Phone: [facility] 06-02-2022 09:41-0500 Heart rate 65 /min Gab Pisano MD Work Phone: [facility] 06-02-2022 09:41-0500 Respiratory rate 12 /min Gab Pisano MD Work Phone: [facility] 06-02-2022 09:41-0500 SaO2% (BldA) [Mass fraction] 99 % Gab Pisano MD Work Phone: [facility] 06-02-2022 09:41-0500 Systolic blood pressure 118 mm[Hg] Gab Pisano MD Work Phone: [facility] 05-22-2022 15:07-0500 Body height 165.1 cm KOURTNEY Ruby MD Work Phone: [facility] 05-22-2022 15:07-0500 Body temperature 98.49 [degF] KOURTNEY Ruby MD Work Phone: [facility] 05-22-2022 15:07-0500 Body weight 61.28 kg KOURTNEY Ruby MD Work Phone: [facility] 05-22-2022 15:07-0500 Diastolic blood pressure 72 mm[Hg] KOURTNEY Ruby MD Work Phone: [facility] 05-22-2022 15:07-0500 Heart rate 80 /min KOURTNEY Ruby MD Work Phone: [facility] 05-22-2022 15:07-0500 Respiratory rate 16 /min KOURTNEY Ruby MD Work Phone: [facility] 05-22-2022 15:07-0500 SaO2% (BldA) [Mass fraction] 96 % KOURTNEY Ruby MD Work Phone: [facility] 05-22-2022 15:07-0500 Systolic blood pressure 119 mm[Hg] KOURTNEY Ruby MD Work Phone: [facility] 04-11-2022 08:33-0500 Body height 165.1 cm Saurav Yo PA-C Work Phone: [facility] 04-11-2022 08:33-0500 Body temperature 98.2 [degF] Saurav Yo PA-C Work Phone: [facility] 04-11-2022 08:33-0500 Body weight 61.24 kg Saurav Yo PA-C Work Phone: [facility] 04-11-2022 08:33-0500 Diastolic blood pressure 78 mm[Hg] Saurav Yo PA-C Work Phone: [facility] 04-11-2022 08:33-0500 Heart rate 96 /min Saurav Yo PA-C Work Phone: [facility] 04-11-2022 08:33-0500 Respiratory rate 14 /min Saurav Yo PA-C Work Phone: [facility] 04-11-2022 08:33-0500 SaO2% (BldA) [Mass fraction] 98 % Saurav Yo PA-C Work Phone: [facility] 04-11-2022 08:33-0500 Systolic blood pressure 104 mm[Hg] Saurav Yo PA-C Work Phone: [facility] 04-07-2022 10:14-0500 Body height 165.1 cm Mario Plescia PA-C Work Phone: [facility] 04-07-2022 10:14-0500 Body weight 60.33 kg Mario Plescia PA-C Work Phone: [facility] 04-07-2022 10:14-0500 Diastolic blood pressure 78 mm[Hg] Mario Plescia PA-C Work Phone: [facility] 04-07-2022 10:14-0500 Heart rate 75 /min Mario Plescia PA-C Work Phone: [facility] 04-07-2022 10:14-0500 Systolic blood pressure 135 mm[Hg] Mario Plescia PA-C Work Phone: [facility] 03-07-2022 11:05-0500 Body temperature 97.59 [degF] Omer Sheriffi DO Work Phone: [facility] 03-07-2022 11:05-0500 Body weight 62.6 kg Omer Sheriffi DO Work Phone: [facility] 03-07-2022 11:05-0500 Diastolic blood pressure 77 mm[Hg] Omer Masci DO Work Phone: [facility] 03-07-2022 11:05-0500 Heart rate 79 /min Omer Masci DO Work Phone: [facility] 03-07-2022 11:05-0500 Systolic blood pressure 126 mm[Hg] Omer Masci DO Work Phone: [facility] 03-02-2022 14:45-0500 Body temperature 97.9 [degF] Research Main Work Phone: [facility] 02-20-2022 17:58-0500 Body temperature 97.7 [degF] Eugenio Hernandez MD Work Phone: [facility] 02-20-2022 17:58-0500 Body weight 61.69 kg Eugenio Hernandez MD Work Phone: [facility] 02-20-2022 17:58-0500 Diastolic blood pressure 74 mm[Hg] Eugenio Hernandez MD Work Phone: [facility] 02-20-2022 17:58-0500 Heart rate 76 /min Eugenio Hernandez MD Work Phone: [facility] 02-20-2022 17:58-0500 Respiratory rate 12 /min Eugenio Hernandez MD Work Phone: [facility] 02-20-2022 17:58-0500 Systolic blood pressure 130 mm[Hg] Eugenio Hernandez MD Work Phone: [facility] 02-06-2022 14:18-0500 Body height 162.6 cm Omer Masci DO Work Phone: [facility] 02-06-2022 14:18-0500 Body temperature 97.3 [degF] Omer Masci DO Work Phone: [facility] 02-06-2022 14:18-0500 Body weight 63.28 kg Omer Masci DO Work Phone: [facility] 02-06-2022 14:18-0500 Diastolic blood pressure 69 mm[Hg] Omer Sheriffi DO Work Phone: [facility] 02-06-2022 14:18-0500 Heart rate 87 /min Omer Masci DO Work Phone: [facility] 02-06-2022 14:18-0500 SaO2% (BldA) [Mass fraction] 100 % Omer Sharitai DO Work Phone: [facility] 02-06-2022 14:18-0500 Systolic blood pressure 112 mm[Hg] Omer Sharitai DO Work Phone: [facility] 01-31-2022 08:45-0400 Body height 165.1 cm Brayan Ahn MD Work Phone: [facility] 01-31-2022 08:45-0400 Body temperature 97.9 [degF] Brayan Ahn MD Work Phone: [facility] 01-31-2022 08:45-0400 Body weight 61.6 kg Brayan Ahn MD Work Phone: [facility] 01-31-2022 08:45-0400 Diastolic blood pressure 78 mm[Hg] Brayan Ahn MD Work Phone: [facility] 01-31-2022 08:45-0400 Heart rate 102 /min Brayan Ahn MD Work Phone: [facility] 01-31-2022 08:45-0400 SaO2% (BldA) [Mass fraction] 95 % Brayan Ahn MD Work Phone: [facility] 01-31-2022 08:45-0400 Systolic blood pressure 116 mm[Hg] Brayan Ahn MD Work Phone: [facility] 01-18-2022 17:57-0400 Body weight 61.69 kg Nuvia Grissom APRN.[employer] Work Phone: [facility] 01-18-2022 17:57-0400 Diastolic blood pressure 70 mm[Hg] Nuvia Grissom WINDING LATHE OPERATOR.[employer] Work Phone: [facility] 01-18-2022 17:57-0400 Heart rate 83 /min Nuvia Older WINDING LATHE OPERATOR.[employer] Work Phone: [facility] 01-18-2022 17:57-0400 Respiratory rate 16 /min Nuvia Older WINDING LATHE OPERATOR.[employer] Work Phone: [facility] 01-18-2022 17:57-0400 SaO2% (BldA) [Mass fraction] 96 % Nuvia Older WINDING LATHE OPERATOR.[employer] Work Phone: [facility] 01-18-2022 17:57-0400 Systolic blood pressure 112 mm[Hg] Nuvia Older WINDING LATHE OPERATOR.[employer] Work Phone: [facility] 01-02-2022 13:38-0400 Body weight 61.69 kg Nuvia Older WINDING LATHE OPERATOR.[employer] Work Phone: [facility] 01-02-2022 13:38-0400 Diastolic blood pressure 66 mm[Hg] Nuvia Older WINDING LATHE OPERATOR.[employer] Work Phone: [facility] 01-02-2022 13:38-0400 Heart rate 68 /min Nuvia Older WINDING LATHE OPERATOR.[employer] Work Phone: [facility] 01-02-2022 13:38-0400 Respiratory rate 16 /min Nuvia Older WINDING LATHE OPERATOR.[employer] Work Phone: [facility] 01-02-2022 13:38-0400 Systolic blood pressure 112 mm[Hg] Nuvia Older WINDING LATHE OPERATOR.[employer] Work Phone: [facility] 12-06-2021 14:21-0400 Body height 163.8 cm Rito Valera MD Work Phone: [facility] 12-06-2021 14:21-0400 Body weight 63.05 kg Rito Valera MD Work Phone: [facility] 12-06-2021 14:21-0400 Diastolic blood pressure 75 mm[Hg] Rito Valera MD Work Phone: [facility] 12-06-2021 14:21-0400 Heart rate 89 /min Rito Valera MD Work Phone: [facility] 12-06-2021 14:21-0400 SaO2% (BldA) [Mass fraction] 95 % Rito Valera MD Work Phone: [facility] 12-06-2021 14:21-0400 Systolic blood pressure 119 mm[Hg] Rito Valera MD Work Phone: [facility] 10-06-2021 14:30-0400 Body temperature 96.8 [degF] Willis Amaral MD Work Phone: [facility] 10-06-2021 14:30-0400 Body weight 62.32 kg Willis Amaral MD Work Phone: [facility] 10-06-2021 14:30-0400 Diastolic blood pressure 80 mm[Hg] Willis Amaral MD Work Phone: [facility] 10-06-2021 14:30-0400 Heart rate 98 /min Willis Amaral MD Work Phone: [facility] 10-06-2021 14:30-0400 Respiratory rate 20 /min iWllis Amaral MD Work Phone: [facility] 10-06-2021 14:30-0400 SaO2% (BldA) [Mass fraction] 96 % Willis Amaral MD Work Phone: [facility] 10-06-2021 14:30-0400 Systolic blood pressure 108 mm[Hg] Willis Amaral MD Work Phone: [facility] 09-15-2021 13:41-0400 Body height 160 cm Research Main Work Phone: [facility] 09-15-2021 13:41-0400 Body temperature 96.8 [degF] Research Main Work Phone: [facility] 09-15-2021 13:41-0400 Body weight 61.24 kg Research Main Work Phone: [facility] 09-15-2021 13:41-0400 Diastolic blood pressure 75 mm[Hg] Research Main Work Phone: [facility] 09-15-2021 13:41-0400 Heart rate 72 /min Research Main Work Phone: [facility] 09-15-2021 13:41-0400 Respiratory rate 16 /min [facility] Main Work Phone: [facility] 09-15-2021 13:41-0400 SaO2% (BldA) [Mass fraction] 99 % Research Main Work Phone: [facility] 09-15-2021 13:41-0400 Systolic blood pressure 130 mm[Hg] Research Main Work Phone: [facility] 09-08-2021 09:22-0400 Body temperature 97.2 [degF] Gab Pisano MD Work Phone: [facility] 09-08-2021 09:22-0400 Body weight 63.5 kg Gab Pisano MD Work Phone: [facility] 09-08-2021 09:22-0400 Diastolic blood pressure 78 mm[Hg] Gab Pisano MD Work Phone: [facility] 09-08-2021 09:22-0400 Heart rate 88 /min Gab Pisano MD Work Phone: [facility] 09-08-2021 09:22-0400 SaO2% (BldA) [Mass fraction] 98 % Gab Pisano MD Work Phone: [facility] 09-08-2021 09:22-0400 Systolic blood pressure 130 mm[Hg] Gab Pisano MD Work Phone: [facility] 08-05-2021 14:36-0400 Body temperature 97 [degF] Omer Narvaez DO Work Phone: [facility] 08-05-2021 14:36-0400 Body weight 64.64 kg Omer Narvaez DO Work Phone: [facility] 08-05-2021 14:36-0400 Diastolic blood pressure 63 mm[Hg] Omer Masci DO Work Phone: [facility] 08-05-2021 14:36-0400 Heart rate 80 /min Omer Narvaez DO Work Phone: [facility] 08-05-2021 14:36-0400 Systolic blood pressure 120 mm[Hg] Omer Narvaez DO Work Phone: [facility] 06-22-2021 11:57-0400 Body height 165.1 cm KOURTNEY Ruby MD Work Phone: [facility] 06-22-2021 11:57-0400 Body weight 63.37 kg KOURTNEY Ruby MD Work Phone: [facility] 06-22-2021 11:57-0400 Diastolic blood pressure 74 mm[Hg] KOURTNEY Ruby MD Work Phone: [facility] 06-22-2021 11:57-0400 Heart rate 85 /min KOURTNEY Ruby MD Work Phone: [facility] 06-22-2021 11:57-0400 SaO2% (BldA) [Mass fraction] 98 % KOURTNEY Ruby MD Work Phone: [facility] 06-22-2021 11:57-0400 Systolic blood pressure 128 mm[Hg] KOURTNEY Ruby MD Work Phone: [facility] Encounters Encounter Date Encounter Type Care Provider Facility Start: 05-16-2023 Telephone encounter Gab grant MD Work Phone: [facility] Procedures Date Procedure Procedure Detail Performing Clinician Start: 12-05-2022 INFLUENZA VACCINE, PRSV FREE, AGE 65+ YR, HIGH DOSE, QUADRIVALENT (FLUZONE HIGH-DOSE) Eugenio Hernandez MD Work Phone: Start: 04-07-2022 Ct abdomen & pelvis w/o contrast material Mario Fermin PA-C Work Phone: Start: 02-24-2022 Us pelvic nonobstetric image dcmtn limited/f/u Eugenio Hernandez MD Work Phone: Start: 01-27-2022 Us abdominal real time w/image limited Nuvia Older WINDING LATHE OPERATOR.RETURNED GOODS SORTER Work Phone: Start: 01-18-2022 Urnls dip stick/tablet rgnt auto w/o microscopy Nuvia Older WINDING LATHE OPERATOR.RETURNED GOODS SORTER Work Phone: Start: 01-02-2022 INFLUENZA SEASONAL QUADRIVALENT HIGH DOSE AGE 65+ Nuvia Older WINDING LATHE OPERATOR.RETURNED GOODS SORTER Work Phone: Start: 03-15-2021 Adult depression screening assessment Doreen MARTINS History of cholecystectomy S/P laparoscopic cholecystectomy Aneesh Kaplan MD Work Phone: Plan of Treatment Date Care Activity Detail Author Start: 04-16-2026 [facility] Start: 08-07-2025 DIABETES SCREEN DIABETES SCREEN [facility] Start: 08-07-2025 [facility] Start: 06-13-2025 DIABETES SCREEN DIABETES SCREEN [facility] Start: 05-29-2025 DIABETES SCREEN DIABETES SCREEN [facility] Start: 04-07-2025 DIABETES SCREEN DIABETES SCREEN [facility] Start: 03-31-2025 DIABETES SCREEN DIABETES SCREEN [facility] Start: 03-02-2025 DIABETES SCREEN DIABETES SCREEN [facility] Start: 01-31-2025 DIABETES SCREEN DIABETES SCREEN [facility] Start: 01-19-2025 DIABETES SCREEN DIABETES SCREEN [facility] Start: 12-29-2024 DIABETES SCREEN DIABETES SCREEN [facility] Start: 09-25-2024 Urine microalbumin profile [facility] Start: 09-05-2024 DIABETES SCREEN DIABETES SCREEN [facility] Start: 05-30-2024 DIABETES SCREEN DIABETES SCREEN [facility] Start: 12-08-2023 Covid-19 Vaccine ( season) Covid-19 Vaccine ( season) [facility] Immunizations Immunization Date Immunization Notes Care Provider Cyndy johnston 12-05-2022 influenza (HD-IIV4) vaccine, age 65+ yr, high dose, quadrivalent, PF (FLUZONE HIGH-DOSE) Eugenio Hernandez MD Work Phone: [facility] Work Phone: 01-02-2022 influenza, high-dose , quadrivalent vaccine (FLUZONE HIGH DOSE QUADRIVALENT) Nuvia Grissom APRN.CNP Work Phone: [facility] 03-02-2021 influenza, high-dose , quadrivalent vaccine (FLUZONE HIGH DOSE QUADRIVALENT) [facility] 06-09-2020 COVID-19 vaccine, fu ll dose (MODERNA) [facility] Work Phone: 05-13-2020 COVID-19 vaccine, fu ll dose (MODERNA) [facility] Work Phone: 01-20-2020 zoster vaccine recombinant Eugenio Hernandez MD Work Phone: [facility] Work Phone: 10-09-2019 zoster vaccine recombinant Eugenio Hernandez MD Work Phone: [facility] Work Phone: 05-06-2019 pneumococcal polysaccharide vaccine, 23 valent [facility] 11-28-2017 influenza, high dose seasonal, preservative-free [facility] Work Phone: 01-29-2017 influenza, high dose seasonal, preservative-free [facility] Work Phone: 12-30-2014 influenza, seasonal, injectable [facility] 09-25-2014 pneumococcal conjuga te vaccine, 13 valent [facility] 09-25-2014 tetanus toxoid, redu julio césar diphtheria toxoid, and acellular pertussis vaccine, adsorbed [facility] 12-29-2013 influenza, seasonal, injectable [facility] 03-20-2012 influenza virus vacc ine, unspecified formulation [facility] Work Phone: 01-30-2011 zoster vaccine, live [facility] 01-11-2011 influenza virus vacc ine, unspecified formulation [facility] 02-17-2010 influenza virus vacc ine, unspecified formulation [facility] 12-25-2008 influenza virus vacc ine, unspecified formulation [facility] Work Phone: 02-06-2008 influenza virus vacc ine, unspecified formulation [facility] 03-01-2007 influenza virus vacc ine, unspecified formulation [facility] 02-19-2006 influenza virus vacc ine, unspecified formulation [facility] Work Phone: 01-16-2006 pneumococcal polysaccharide vaccine, 23 valent [facility] 05-16-2005 tetanus and diphther ia toxoids, adsorbed, preservative free, for adult use (2 Lf of tetanus toxoid and 2 Lf of diphtheria toxoid) [facility] Payers Date Payer Category Payer Medicare [id number] 2019 Unknown O MMO MEDICARE SUPPLEMENT [id number] 2019-Present [phone] [address] [place] [address] Indemnity [id number] 2019 Unknown O O MEDICARE SUPPLEMENT [id number] 2019-Present [phone] [address] [place] [address] Indemnity [id number] 2005 Medicare MEDICARE MEDICAR E A AND B [id number] 2005-Present [phone] [address] [address] [place] [address] Medicare [id number] 2005 Medicare MEDICARE MEDICAR E A AND B [id number] 2005-Present [phone] [place] [address] Medicare [id number] 2005 Medicare [id number] Social History Date Type Detail Facility Tobacco smoking stat [facility] Never smoked tobacco [facility] Start: 06-22-2021 End: 02-05-2023 Alcohol intake Current non-drinker of alcohol (finding) [facility] Start: 05-06-2019 History SDOH Financial 5 [facility] Start: 05-06-2019 History SDOH Food Worry 1 [facility] Start: 05-06-2019 History SDOH Transpo rt Med 2 [facility] Start: 1940 Sex Assigned At Female [facility] Start: 06-12-2021 End: 03-01-2022 Exposure to SARS-CoV-2 (event) Not sure [facility] Start: 06-19-2021 End: 12-26-2021 Exposure to SARS-CoV-2 (event) Unable to assess [facility] Start: 08-07-2022 End: 10-12-2022 History of Social function [facility] Work Phone: Start: 08-07-2022 End: 10-12-2022 Tobacco use panel [facility] Work Phone: Adult Depression Screening Assessment 0 [facility] Work Phone: Start: 12-03-2019 Gender identity Identifies as female gender (finding) [facility] Start: 02-06-2020 Sexual orientation Heterosexual (anand solomon) [facility] (I/We) worried wheth er (my/our) food would run out before (I/we) got money to buy more. Never true [facility] How hard is it for y ou to pay for the very basics like food, housing, medical care, and heating Not very hard [facility] Work Phone: In the past 12 month s, was there a time when you were not able to pay the mortgage or rent on time? No [facility] Work Phone: Medical Equipment Procedure Code Equipment Code Equipment Origin al Text Equipment Identifier Dates Head V40 32mm 0m m Offset Taper Biolox Delta Femoral Hip - [id number] Start: 05-05-2019 Stem Accolade Ii 4 132d Femoral - [id number] Start: 05-05-2019 Liner 32mm 10d D X3 5.9mm Acetabular Hip - [id number] Start: 05-05-2019 Shell Trident Ii 50mm D Tritanium Acetabular 3 Screw Hole Cluster Sterile - [id number] Start: 05-05-2019 Mesh Srg 24x4cm Restorelle Y - [id number] Start: 11-04-2014 Screw Trident Ii 6.5mm 25mm Bone Low Profile Hexagonal Sterile - [id number] Start: 05-05-2019 Screw Trident Ii 6.5mm 20mm Bone Low Profile Hexagonal Sterile - [id number] Start: 05-05-2019 Sling Pubvagnl Monarc Sbfsc - [id number] Start: 11-04-2014 Goals Date Patient Goal Desired Activity /State Personal health goal Clinical Notes 11-10-2019 to 05-16-2023 Telephone Encounter - Dina Schulz Ma - 05/16/2023 3:25 PM ESTTelephone Encounter - Corinne Rasheed APRN.CNP - 05/16/2023 3:14 PM ESTTelephone Encounter - Edita Bermudez RN - 05/16/2023 3:10 PM EST Note Date & Type Note Facility 05-16-2023 Miscellaneous Notes VO left on confidential voicemail Okay for orders Corinne Rasheed APRN.RETURNED GOODS SORTER Maggie with [facility] calling to request orders for Shelter, PT and OT for patient. Patient currently at [facility] for sepsis and GI Bleed. To be discharged on 05/20. Please call Maggie back at [phone]. Thank you. documented in this encounter [facility] 05-08-2023 History of Present illness Narrative [facility] Telephonic Outreach Provider Action/FYI Chart Review: 05/03/23 Admit to [facility] Dx: Acute Mastoiditis Spk with spouse he noted Yris was admitted to [facility] noting Yris remains inpt. Spouse appreciated the call. Racing Secretary And Handicapper will follow up after discharge. Spouse appreciated the call. Contacted for: Routine Telephonic Outreach Contact made with patient: Yes Patient identified by name and date of . Discussed care with spouse Are you experiencing any new or worsening symptoms you need to talk about today? Yes Diane Alcala RN May 08, 2023 12:06 PM documented in this encounter [facility] 05-04-2023 Miscellaneous Notes Reviewed records of admission to PCU. Omer Narvaez DO Spoke to son. Son stated patient was admitted to [facility] 05/03/23. Per ID notes: Assessment/Plan (1) Fever: PLAN: Low grade temp, MRI showed mastoiditis. Some L base rhonchi, cxr is clear. May be CAP vs atelectasis to explain her temp and not feeling well. Shoulder doing well. Cont empiric zosyn for now. On fluc for thrush, candiduria. will follow, thank you (2) Septic arthritis of shoulder, left: Blood cultures pending. Isabel Hamilton RN Patient's son Taj called in asking if would be able to check in with his mother and her care. He stated that Yris was admitted to [facility] on 04-05-2023 and stayed until 04-20-2023 and then was discharged to transitional care at [facility]. He stated that during her stay at [facility] she had an infection that settled in her left shoulder, hemorrhaging ulcer of her duodenum, her kidney's stopped working a few times, she had bad thrush and then today she had a sudden drop in her blood pressure to 80/40 that made he seem like she was seizing. They are doing testing and lab work to see what that could have been from. Taj just felt like that wanted on board with what was going on with her because she has the blood issues that sees her for. Taj stated that if you had any questions for him to please call him at [phone] Thank you, Ksenia Cordero documented in this encounter [facility] 03-09-2023 Miscellaneous Notes Call from patient requesting refill. Requested Prescriptions Pending Prescriptions Disp Refills tafamidis (VYNDAMAX) 61 mg capsule 30 capsule 11 Sig: Take 1 capsule by mouth once daily. Patient last seen 01/29/23 Kendal Akers documented in this encounter [facility] 02-05-2023 Note HNO ID: [id number] Author: Omer Narvaez, DO Service: ? Author [...] and was discharged. Was seen by a etiologist at a tertiary center. Testing suggested that [...] once day. -Follow-up (more content not included)... [facility] 02-05-2023 History of Present illness Narrative [...] and was discharged. Was seen by a etiologist at a tertiary center. Testing suggested that [...] which included preparing to see the patient, [id number] patient care, completing clinical documentation, obtaining and/or reviewing separately obtained history, performing a medically appropriate examination, counseling and educating the patient/family/caregiver, communicating with other HCPs (not separately reported), and communicating results to the patient/family/caregiver. Omer Narvaez DO documented in this encounter [facility] 01-29-2023 Note HNO ID: [id number] Author: Shira Martinez MD Service: ? Author Type: Physician Type: Progress Notes Filed: 01/29/2023 2:09 PM Note Text: [facility] [place] [facility] SECTION OF HEART FAILURE and CARDIAC TRANSPLANT MEDICINE OUTPATIENT VISIT DATE January 29, 2023 OUTPATIENT VISIT TYPE Established Patient PRIMARY CARE PHYSICIAN: Gab Pisano [address] [place] [address] CHIEF COMPLAINT: Follow up for clinical trial 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 states PVC's 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/12/2008 [...] FLX DX W/COLLJ SPEC [facility] FLX DX W/COLLJ [...] Colon Cancer Mother Coronary Artery Disease Father ME 45 Cancer Brother multiple myeloma None Daughter None Daughter other (heart attack) Son other (fibramyalgia) Son other (blood clots in lungs) Son ALLERGIES: ALLERGIES Allergen Reactions Iodine Hives CURRENT MEDICATIONS: traMADol (ULTRAM) 50 mg tabletTake 1 tablet by mouth every 6 hours as needed for up to 99 days.Disp: 28 tabletRfl: 0 metoprolol succinate ER (TOPROL XL) 25 mg (more content not included)... [facility] 01-29-2023 History of Present illness Narrative Images from the original note were not included. [facility] [place] [facility] SECTION OF HEART FAILURE and CARDIAC TRANSPLANT MEDICINE OUTPATIENT VISIT DATE January 29, 2023 OUTPATIENT VISIT TYPE Established Patient PRIMARY CARE PHYSICIAN: Gab Pisano [address] [place] [address] CHIEF COMPLAINT: Follow up for clinical trial 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 states PVC's 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/12/2008 Chest pain Cholecystitis 05/22/2022 Chronic kidney disease (CKD), stage III (moderate) ([facility]) 07/27/2016 Coronary artery disease due to calcified coronary lesion 06/22/2021 Diverticulitis Diverticulosis of colon (without mention of hemorrhage) Diverticulosis of colon with hemorrhage DVT (deep venous thrombosis) ([facility]) After knee surgery Dysmetabolic syndrome X Hemorrhage [...] FLX DX W/COLLJ SPEC WHEN [facility] FLX DX W/COLLJ [...] Colon Cancer Mother Coronary Artery Disease Father ME 45 Cancer Brother multiple myeloma None Daughter [...] FOR LVH, MAY BE NORMAL VARIANT ( [place] product ) INFERIOR MYOCARDIAL INFARCTION , AGE UNDETERMINED ANTEROSEPTAL MYOCARDIAL INFARCTION , AGE UNDETERMINED ABNORMAL ECG Confirmed by ANH RUIZ MD ([id number]) on 11/14/2022 9:12:39 PM IMPRESSION: NY[facility] Functional [...] exercise, other non-medical management as above. Shira Martinez MD [facility] Section Of Heart Failure and Cardiac Transplant Medicine Heart [facility] [place] [facility] Desk [id number] [place] [address] documented in this encounter [facility] 01-26-2023 Note HNO ID: [id number] Author: Diane Alcala RN Service: ? Author [...] pounds in a week? No Based on rn assessment, the following disposition is advised: No symptoms or symptoms present, not severe. Routed to: No Action Needed YOUNG Education Provided this Outreach: Yes Diane Alcala RN January 26, 2023 11:24 AM [facility] 01-26-2023 History of Present illness Narrative [...] pounds in a week? No Based on rn assessment, the following disposition is advised: No symptoms [...] 2023 1:47 PM documented in this encounter [facility] documented in this encounter [facility]10-26-2023 NoteHNO ID: [id number] Author: Diane Alcala RN Service: ? Author [...] Diane Alcala RN January 25, 2023 1:47 [facility]10-26-2023 NotePatient Outreach ([facility]) YRIS VILLAGOMEZ ([id number]) 1940 F Date Time Provider Department 01/25/23 DIANE ALCALA AMBGABYG During your visit today, we recorded the following information about you: Diane Alcala RN 01/26/2023 11:49 AM Signed CDM Telephonic Outreach Provider Action/I CDM: CKD, CHF, Hx: Cardiac Amyloidosis, PE, DVT, Post-phlebitic syndrome, Chronic Anticoagulation Left a message to verify symptom status, instructed to call PCP with any changes in condition or needs. Contacted for: Routine Telephonic Outreach Contact made with patient: No, left message. Diane Alcala RN January 25, 2023 1:47 PM Diane Alcala RN 01/26/2023 11:49 AM Signed CD Telephonic Outreach Provider Action/FY CDM: CKD, CHF, Hx: Cardiac Amyloidosis, PE, [...] pounds in a week? No Based on rn assessment, the following disposition is advised: No symptoms or symptoms present, not severe. Routed to: No Action Needed YOUNG Education Provided this Outreach: Yes Diane Alcala RN January 26, 2023 11:24 AM Allergies As of Date: 01/25/2023 Noted Allergy Reaction IODINE 12/19/2004 4 - Hives Date Reviewed: 12/07/2022 Reviewed by: Nuvia Grissom APRN.RETURNED GOODS SORTER - Fully Assessed Reason for Visit: Community Monitoring Outreach [Other] Primary Visit Diagnosis:Stage 3 chronic kidney disease, unspecified whether stage 3a or 3b CKD ([facility]) [N18.30] Order(s):PT ED NEPHROLOGY [[id number]] Order #: [id number]: 1 Prescriptions as of 01/26/2023 - traMADol [...] mL (BD POSIFLUSH) - (more content not included)...[facility]09-28-2023 NoteHNO ID: [id number] Author: Diane Alcala RN Service: ? Author [...] Diane Alcala RN December 28, 2022 7:56 [facility]09-27-2023 NoteHNO ID: [id number] Author: Diane Alcala RN Service: ? Author [...] Diane Alcala RN December 27, 2022 12:59 [facility]09-27-2023 NotePatient Outreach ([facility]) YRIS VILLAGOMEZ ([id number]) 1940 F Date Time Provider Department 12/27/22 DIANE ALCALA AMBG During your visit today, we recorded the [...] Diane Alcala RN 12/28/2022 7:57 PM Signed [facility] Telephonic Outreach Provider Action/FYI CDM: CKD, [...] Date Reviewed: 12/07/2022 Reviewed by: Nuvia Grissom APRN.RETURNED GOODS SORTER - Fully Assessed Reason for Visit: Community [...] 09/30/2018 Groin pain [R10.3 (more content not included)...[facility] 12-13-2022 Evaluation note* Diagnosis Medicare annual wellness visit, subsequent- Primary Routine general medical examination at a health care facility Stage 3a chronic kidney disease (HCC) Essential hypertension Unspecified essential hypertension Mixed hyperlipidemia Acquired hypothyroidism Unspecified hypothyroidism 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 Author Type: Nurse Practitioner Type: [...] PE (2009) but negative. Is on [facility] nursing and sees hematology. Swelling has improved with 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 states PVC's 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/12/2008 Chest pain Cholecystitis 05/22/2022 Chronic kidney disease (CKD), stage III (moderate) ([facility]) 07/27/2016 Coronary artery disease due to calcified coronary lesion 06/22/2021 Diverticulitis Diverticulosis of colon (without mention of hemorrhage) Diverticulosis of colon with hemorrhage DVT (deep venous thrombosis) ([facility]) After knee surgery Dysmetabolic syndrome X Hemorrhage [...] FLX DX W/COLLJ SPEC WHEN [facility] FLX DX W/COLLJ [...] 30 tabletRfl: 0 g (more content not included)...[facility]09-07-2023 Instructions* Patient Instructions* Nuvia Grissom APRN.RETURNED GOODS SORTER - 12/07/2022 9:41 AM EDT Screening schedule [...] review all the medicines you take, even prsf-sah-tojkcmo medicines. As you get older, the way [...] have certain medical conditions. [facility] History of Present illness Narrative* Nuvia Grissom [...] PE (2009) but negative. Is on [facility] and sees hematology. Swelling has improved with 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 states PVC's 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/12/2008 [...] FLX DX W/COLLJ SPEC WHEN [facility]FRMD [facility] COLONOSCOPY FLX DX W/COLLJ [...] Colon Cancer Mother Coronary Artery Disease Father ME 45 Cancer Brother multiple myeloma None Daughter [...] No suspiciousactivity was identified. 12/07/2022 by Nuvia Grsisom APRN.RETURNED GOODS SORTER Prescription instructions reviewed with patient as applicable. Potential red flag symptoms discussed with the patient. Reviewed appropriate action plan to take if red flag symptoms occur. Patient agreeable to treatment plan. Nuvia Grissom APRN.ALESSANDRO Yris Villagomez is a 81 year old female here for a Medicare wellness visit. Health Risk Assessment In general, health is: Good Concerns with balance:Several days but only with quick movements and not severe. Concerns with teeth or dentures:Not at all Concerns with sexual function:Not at all Maybeury anxious, stressed, angry, irritable, lonely, isolated, or [...] COVID-19 - Depression screening documented in this encounter[facility]23 Miscellaneous Notes* Telephone Encounter - Debbie Sotro LPN - 12/06/2022 4:50 PM EDT Message [...] Follow up with orthopedics. documented in this encounterSouthview [facility] Center09-06-2023 NoteHNO ID: [id number] Author: Diane Alcala RN Service: ? Author [...] Left leg Pt Instructed to call PCP/ [employer] for changes in symptoms or concerns, ER for Urgent condition changes, CP, Sob or worsening symptoms. Pt verbalized understanding and appreciation for call. Contacted for: Routine Telephonic Outreach Contact made with patient: Yes Patient identified by name and date of . Discussed care with patient Are you experiencing any new or worsening symptoms you need to talk about today? Yes Based on rn assessment, the following disposition is advised: No symptoms or symptoms present, not severe. Routed to: No Action Needed YOUNG Education Provided this Outreach: No Diane Alcala RN December 06, 2022 2:28 [facility]09-06-2023 History of Present illness Narrative* Diane Alcala, RN - 12/06/2022 1:41 PM EDT CDM [...] Left leg Pt Instructed to call PCP/ [employer] for changes in symptoms or concerns, ER for Urgent condition changes, CP, Sob or worsening symptoms. Pt verbalized understanding and appreciation for call. Contacted for: Routine Telephonic Outreach Contact made with patient: Yes Patient identified by name and date of . Discussed care with patient Are you experiencing any new or worsening symptoms you need to talk about today? Yes Based on rn assessment, the following disposition is advised: No symptoms [...] 05, 2022 1:06 PM documented in this encounterSouthview [facility] Center09-05-2023 NoteHNO ID: [id number] Author: Diane Alcala RN Service: ? Author [...] Diane Alcala RN December 05, 2022 1:06 [facility]09-05-2023 NotePatient Outreach ([facility]) YRIS VILLAGOMEZ ([id number]) 1940 F Date Time Provider Department 12/05/22 DIANE ALCALA [facility] During your visit today, we recorded the following information about you: Diane Alcaal RN 12/06/2022 2:37 PM Signed CDM Telephonic [...] Left leg Pt Instructed to call PCP/ [employer] for changes in symptoms or concerns, ER for Urgent condition changes, CP, Sob or worsening symptoms. Pt verbalized understanding and appreciation for call. Contacted for: Routine Telephonic Outreach Contact made with patient: Yes Patient identified by name and date of . Discussed care with patient Are you experiencing any new or worsening symptoms you need to talk about today? Yes Based on rn assessment, the following disposition is advised: No symptoms [...] NaCl (PF) 0.9% 1 (more content not included)...[facility]09-05-2023 NoteHNO ID: [id number] Author: Eugenio Hernandez MD Service: ? Author Type: Physician Type: Progress Notes Filed: 12/05/2022 11:06 AM Note Text: This note was created using [employer]pper[employer]. Subjective Yris Villagomez is a 81 year [...] BMI 22.13 kg/m? Physical Exam Assessment and [facility]09-05-2023 NoteHNO ID: [id number] Author: Eugenio Hernandez MD Service: ? Author Type: Physician Type: Progress Notes Filed: 12/05/2022 11:06 AM Note Text: This note was created using [employer]. Subjective Patient presents with: Left leg pain [...] PRN perflutren lipid mi (more content not included)...[facility] 12-05-2022 History of Present illness Narrative* [...] AM EDT This note was created using [employer]. Subjective Patient presents with: Left leg pain [...] HIGH-DOSE) Eugenio Hernandez MD documented in this encounterSouth[facility] Center08-25-2023 Miscellaneous Notes* Telephone Encounter - Carol Braun RN - 11/24/2022 10:47 AM EDT Patient left message on heart failure nurse line requesting refills on metoprolol succinate and rosuvastatin to go to [facility]. Carol Braun RN November 24, 2022 10:47 AM documented in this encounterSouthview Medical Center08-23-2023 NoteHNO ID: [id number] Author: Nuvia Grissom APRN.[employer] Service: ? Author Type: Nurse Practitioner Type: [...] it. No history of skin cancer. Sees [facility] for regular scans but would like to see a [facility] dermatolgist if possible. 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 states PVC's 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/12/2008 Chest pain Cholecystitis 05/22/2022 Chronic kidney disease (CKD), stage III (moderate) (HCC) 07/27/2016 Coronary artery disease due to calcified coronary lesion 06/22/2021 Diverticulitis Diverticulosis of colon (without mention of hemorrhage) Diverticulosis of colon with hemorrhage DVT (deep venous thrombosis) ([facility]) After knee surgery Dysmetabolic syndrome X Hemorrhage [...] FLX DX W/COLLJ SPEC [facility] FLX DX W/COLLJ [...] STRENGTH) 500 mg tabletTake (more content not included)...[facility]08-23[facility] History of Present illness Narrative* Nuvia Grissom APRN.[employer] - 11/22/2022 5:42 PM EDT CC: Patient [...] it. No history of skin cancer. Sees [facility] for regular scans but would like to see a [facility] dermatolgist if possible. 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 states PVC's 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/12/2008 Chest pain Cholecystitis 05/22/2022 Chronic kidney disease (CKD), stage III (moderate) ([facility]) 07/27/2016 Coronary artery disease due to calcified coronary lesion 06/22/2021 Diverticulitis Diverticulosis of colon (without mention of hemorrhage) Diverticulosis of colon with hemorrhage DVT (deep venous thrombosis) ([facility]) After knee surgery Dysmetabolic syndrome X Hemorrhage [...] DX W/COLLJ SPEC WHEN PFRMD 06/23/[facility]oscopy COLONOSCOPY FLX DX W/COLLJ SPEC [...] Colon Cancer Mother Coronary Artery Disease Father ME 45 Cancer Brother multiple myeloma None Daughter [...] plan. Nuvia Grissom APRN.CNP documented in this encounterSouthview Medical Center08-22-2023 NotePatient Outreach (INTMMN) YRIS VILLAGOMEZ ([id number]) 1940 F Date Time Provider Department 11/21/22 TYLERBRANDIGBA [facility] During your visit today, we recorded the following information about you: Allergies As of Date: 11/21/2022 Noted Allergy Reaction IODINE 12/19/2004 4 - Hives Date Reviewed: 11/08/2022 Reviewed by: Irene Akers Ma - Fully Assessed Visit Diagnosis:Acquired hypothyroidism [E03.9] Order(s):TSH BLD [SQTS] Order #: [id number] FUTURE Prescriptions as of 11/24/2022 - predniSONE [...] deep vein thrombosis ( (more content not included)...[facility]08-22-2023 Miscellaneous Notes* Telephone Encounter - Courtney [...] advise. Carole Carreon LPN documented in this encounterSouthview Medical Center08-09-2023 NoteHNO ID: [id number] Author: Shira Martinez MD Service: ? 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 PVC's 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/12/2008 Chest pain Cholecystitis 05/22/2022 Chronic kidney disease (CKD), stage III (moderate) ([facility]) 07/27/2016 Coronary artery disease due to calcified coronary lesion 06/22/2021 Diverticulitis Diverticulosis of colon (without mention of hemorrhage) Diverticulosis of colon with hemorrhage DVT (deep venous thrombosis) ([facility]) After knee surgery Dysmetabolic syndrome X Hemorrhage [...] FLX DX W/COLLJ SPEC [facility] FLX DX W/COLLJ [...] Colon Cancer Mother Coronary Artery Disease Father ME 45 Cancer Brother multiple myeloma None Daughter [...] 28 tabletRfl: 0 omega-3/dha/epa/ (more content not included)...[facility] 11-08-2022 History of Present illness Narrative* Shira Martinez MD - 11/08/2022 11:15 AM EDT Images from the original note were not included. 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 Shira Martinez MD [facility] Section Of Heart Failure and Cardiac Transplant Medicine [facility] [place] [facility] Desk [address] [place] [address] documented in this encounterSouthview Medical Center08-09-2023 NoteHNO ID: [id number] Author: Winsome Calvo Service: ? Author Type: ? Type: Progress Notes Filed: 12/22/2022 1:09 PM Note Text: IRB #[id number] CardioTTRansform PI: Dr. Zamora Study Visit: Week 121 I met with the patient for the Study Day 841 Visit for the CardioTTRansform Study. Reaffirmed that the patient still wishes to participate in the study and continues to consent to the study. Has the patient had any changes in her health since the last study visit? No Has the patient had any outside hospitalizations/ER visits: No Dates and locations: n/a KCCQ completed: Yes [place] QoL completed: Yes EQ-5D-5L completed: Yes Ocular [...] provided: Protocol required tests/procedures Materials dispensed: None tutor coordinator: Winsome Chavez [facility] Pager #: [phone] [facility]an Hospital08-09-2023 History of Present illness Narrative* Kathy [facility] Unit[facility]insome - 11/08/2022 8:49 AM EDT IRB #[id number] [facility]: Dr. Zamora Study Visit: Week 121 [...] Dates and locations: n/a KCCQ completed: Yes [place] QoL completed: Yes EQ-5D-5L completed: Yes Ocular [...] provided: Protocol required tests/procedures Materials dispensed: None tutor coordinator: [facility] Pager #: [phone] documented in this encounterSouthview Medical Center08-02-2023 NoteHNO ID: [id number] Author: Diane Alcala RN Service: ? Author [...] Diane Alcala RN November 01, 2022 11:44 [facility]08-02-2023 History of Present illness Narrative* Diane [...] 11:26 AM EDT CDM Telephonic Outreach Provider Action/FYI CDM; CHF, CKD Called Pt, unable to leave a message to verify symptom status and needs. Contacted for: Routine Telephonic Outreach Contact made with patient: No, unable to leave message. Will reattempt call Diane Alcala RN October 30, 2022 11:26 AM documented in this encounterSouthview Medical Center08-01-2023 Miscellaneous Notes* Telephone Encounter - Corinne Hodgson [...] and advise. Alison Cordero documented in this encounterSouthview Medical Center07-31-2023 NotePatient Outreach ([facility]MG) PAULYRIS Pena ([id number]) 1940 F Date Time Provider Department 10/30/22 DIANE ALCALA During your visit today, we [...] 11:47 AM Signed CDM Telephonic Outreach Provider Action/FYBecky CDM; CHF, CKD Left a message to [...] ischemic heart disease [Z82.4*10/14/2014 (more content not included)...[facility]07-31-2023 NoteHNO ID: [id number] Author: Diane Alcala RN Service: ? Author Type: Registered Nurse Type: Progress Notes Filed: 11/01/2022 11:47 AM Note Text: CDM Telephonic Outreach Provider Reyna/BEAU RODRIGUEZM; CHF, CKD Called Pt, unable to leave a message to verify symptom status and needs. Contacted for: Routine Telephonic Outreach Contact made with patient: No, unable to leave message. Will reattempt call Diane Alcala RN October 30, 2022 11:26 [facility]07-20-2023 Miscellaneous Notes* Telephone Encounter - Frances [...] updated. Angelina Fisher LPN documented in this encounterSouthview Medical Center07-13-2023 NoteHNO ID: [id number] Author: Eugenio Hernandez MD Service: ? Author Type: Physician Type: Progress Notes Filed: 10/12/2022 3:55 PM Note Text: This note was created using TechPepperriter. Subjective Yris Villagomez is a 81 year [...] tenderness. Normal strengt (more content not included)... [facility]07-13-[facility]23 History of Present illness Narrative* Eugenio Hernandez MD - 10/12/2022 3:30 PM EDT This note was created using TechPepperriter. Subjective Yris Villagomez is a 81 year [...] or off label use: off label. 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 - Call for dose adjustment if effective. 2. Neuropathy - ICD9: 355.9, ICD10: G62.9 - GABAPENTIN 300 MG CAPSULE Eugenio Hernandez MD documented in this encounterSouthview Medical Center07-13-2023 Miscellaneous Notes* Telephone Encounter - Courtney Juarez [...] heart condition- amylodiosis, and low fibrinogen levels- etiologist told her not to use creams without [...] Post menopausal. Protocols used: Hand and Wrist [id number] documented in this encounterSouthview Medical Center07-05-2023 Miscellaneous Notes* Telephone Encounter - Angelina Trish Fisher LPN - 10/04/2022 3:13 PM EDT Patient has been identified by name and date of : Yes, Provider Dr. Pisano Date 7/5/23 Time 3:13 pm Patient phones for refill(s): [...] and advise. Cristy Rivera documented in this encounterSouthview Medical Center06-27-2023 NoteHNO ID: [id number] Author: Diane Alcala RN Service: ? Author [...] Diane Alcala RN September 26, 2022 4:50 [facility]06-27-2023 History of Present illness Narrative* Diane [...] 25, 2022 3:53 PM documented in this encounterSouthview Medical Center06-26-2023 NoteHNO ID: [id number] Author: Diane Alcala RN Service: ? Author [...] Diane Alcala RN September 25, 2022 3:53 [facility]06-26-2023 NotePatient Outreach ([facility]BCMG) YRIS VILLAGOMEZ ([id number]) 1940 F Date Time Provider Department 09/25/22 [...] Mixed incontinence [N39.46] 10/28/19 (more content not included)...[facility]05-31-2023 Miscellaneous Notes* Telephone Encounter - Coco Arredondo - 08/30/2022 11:06 AM EDT August 30, 2022 Name: Yris Genia Villagomez Patient Contact Number: [phone] (home) [phone] (cell) Date of last office visit: 08/17/2022 Reason For Call: Other Issue: Patient states Dr. Zamora wants her to have a Stress Echo - the ordersneed to be added to her chart. Physician: Evi Zamora MD Patient was informed that non-urgent calls may be returned within the next three business days. Yes Coco Wills documented in this encounterSouthview Medical Center05-30-2023 NoteHNO ID: [id number] Author: Diane Alcala RN Service: ? Author [...] pounds in a week? No Based on rn assessment, the following disposition is advised: No symptoms or symptoms present, not severe. Routed to: No Action Needed YOUNG Education Provided this Outreach: No Diane Alcala RN August 29, 2022 4:37 [facility]05-30-2023 NotePatient Outreach ([facility]) DAHLIAYRIS J ([id number]) 1940 F Date Time Provider Department 08/29/22 [...] pounds in a week? No Based on rn assessment, the following disposition is advised: No symptoms [...] DVT (deep venous thr (more content not included)...[facility] 08-22-2022 NoteHNO ID: [id number] Author: Diane Alcala RN Service: ? Author [...] Diane Alcala RN August 22, 2022 10:55 [facility]05-19-2023 NoteHNO ID: [id number] Author: Diane Alcala RN Service: ? Author [...] Diane Alcala RN August 18, 2022 1:17 [facility]05-19-2023 NotePatient Outreach ([facility]) YRIS VILLAGOMEZ ([id number]) 1940 F Date Time Provider Department 08/18/22 [...] hypothyroidism [E03.9] 02/19/2015 Epigastric (more content not included)...[facility]05-18-2023 NoteHNO ID: [id number] Author: Jalyn Boyce, Research Coordinator Service: ? Author Type: Research Type: Progress Notes Filed: 08/18/2022 9:09 AM Note Text: [facility][id number]: Dr. Zamora Study Visit: Week [...] disease. KCCQ completed: Not Required per protocol [place] QoL completed: Not Required per protocol EQ-5D-5L [...] provided: Protocol Materials dispensed: Coordinator contact card tutor coordinator: Jalyn Boyce Research Coordinator Pager #: [phone] Rutan Hospital05-18-2023 NoteHNO ID: [id number] Author: Evi Zamora MD Service: ? Author Type: Physician Type: Progress Notes Filed: 09/16/2022 1:46 PM Note Text: [facility] [place] [facility] SECTION OF HEART FAILURE and CARDIAC TRANSPLANT MEDICINE OUTPATIENT VISIT DATE August 17, 2022 OUTPATIENT VISIT TYPE Established Patient Last seen by Dr. 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 Author [...] and was discharged. Was seen by a etiologist at a tertiary center. Testing suggested that [...] edema. SKIN: No jaundice or rash. 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 No focal motor [...] of cardiac amyloidosis, transthyret (more content not included)...[facility]05-08-2023 History of Present illness Narrative* Omer Narvaez, DO - 08/07/2022 2:30 PM EDT Diagnoses: [...] and was discharged. Was seen by a etiologist at a tertiary center. Testing suggested that [...] edema. SKIN: No jaundice or rash. 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 No focal motor [...] which included preparing to see the patient, [id number] patient care, completing clinical documentation, obtaining and/or reviewing separately obtained history, performing a medically appropriate examination, counseling and educating the pat ient/family/caregiver, and communicating results to the patient/family/caregiver. Omer Narvaez DO documented in this encounterSouthview Medical Center05-01-2023 NoteHNO ID: [id number] Author: Diane Alcala RN Service: ? Author [...] pounds in a week? No Based on rn assessment, the following disposition is advised: Routed to: No Action Needed YOUNG Education Provided this Outreach: No Diane Alcala RN July 31, 2022 4:46 [facility]05-01-2023 History of Present illness Narrative* Diane Alcala [...] pounds in a week? No Based on rn assessment, the following disposition is advised: Routed to: [...] 28, 2022 11:17 AM documented in this encounterSouthview Medical Center04-28-2023 NotePatient Outreach ([facility]) YRIS VILLAGOMEZ ([id number]) 1940 F Date Time Provider Department 07/28/22 [...] pounds in a week? No Based on rn assessment, the following disposition is advised: Routed to: [...] 11/19/2019 DVT (deep ve (more content not included)...[facility]04-28-2023 NoteHNO ID: [id number] Author: Diane Alcala RN Service: ? Author [...] Diane Alcala RN July 28, 2022 11:17 [facility]04-05-2023 NoteHNO ID: [id number] Author: Diane Alcala RN Service: ? Author [...] like to speak with a social work cafeteria team leader to help give you support for any [...] you up for automated weekly questionnaires through [employer]. This is an easy way for us [...] Diane Alcala RN July 05, 2022 2:31 [facility]04-05-2023 History of Present illness Narrative* Diane Alcala [...] like to speak with a social work cafeteria team leader to help give you support for any [...] you up for automated weekly questionnaires through [employer]. This is an easy way for us [...] 05, 2022 2:31 PM documented in this encounterSouthview Medical Center04-05-2023 NotePatient Outreach ([facility]) YRIS VILLAGOMEZ ([id number]) 1940 F Date Time Provider Department 07/05/22 DIANE ALCALA During your visit today, we recorded the following information about you: Diane Alcala RN 07/05/2022 2:48 PM Signed [facility]LE[facility]REACH Provider Action/FYI: CDM: CKD, CHF [...] like to speak with a social work cafeteria team leader to help give you support for any [...] you up for automated weekly questionnaires through [employer]. This is an easy way for us [...] aspirin, enteric coated (ASPIRIN, (more content not included)...[facility]03-27-2023 NoteHNO ID: [id number] Author: JOSE Kirby Service: ? 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 [facility]03-27-[facility] History of Present illness Narrative* OJSE Kirby - 06/26/2022 5:50 PM EDT Images from the original note were not included. This note was created using [employer]Pepper[employer]. 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 JOSE Kirby documented in this encounterSouthview Medical Center03-22-2023 NotePatient Outreach ([facility]) YRIS VILLAGOMEZ ([id number]) 1940 F Date Time Provider Department 06/21/22 [...] stress reaction [F43.0] 09/16/2020 (more content not included)...[facility]03-22-2023 NoteHNO ID: [id number] Author: Diane Alcala RN Service: ? Author Type: Registered Nurse Type: Progress Notes Filed: 07/05/2022 2:48 PM Note Text: [facility] Provider Action/FYI: 06/13/22 [facility] Cardiac Cath, Hx: Cardiac Amyloidosis Call deferred Diane Alcala RN June 21, 2022 10:12 [facility]03-22-2023 History of Present illness Narrative* Diane Alcala RN - 06/21/2022 10:12 AM EDT [facility] Provider Action/FYI: 06/13/22 [facility] Dx Cardiac Amyloidosis Call deferred Diane Alcala RN June 21, 2022 10:12 AM documented in this encounterSouthview Medical Center03-13-2023 Miscellaneous Notes* Telephone Encounter - Rizwana Black [...] time/NPO Status/Medications/Travel Instructions/Restrictions- patient aware to have package delivery driver upon discharge Patient/Family Response Evaluation: Verbalizes understanding Follow Up Plan and Medication: As directed by physician Instruction/Supplemental Material Given: Cardiac catheterization instructions, procedure information, hospital information, hotel information. Instructed By Rizwana Black, RN, RN. In Department of CARDIOLOGY. documented in this encounterSouthview Medical Center03-13-2023 Miscellaneous Notes* Telephone Encounter - Lorena Ferreira - 06/12/2022 12:36 PM EDT Called Commodity Loan Clerk to verify orders and had to leave a message. I am going to follow up today and makesure pt is aware of instructions for Cath tomorrow. * Telephone Encounter - Vanna Alcaraz Adm - 06/12/2022 8:27 AM EDT Call received from SCOOBY, Commodity Loan Clerk Main, pt has allergie to Iodine and no Dye Prep has been ordered. Pt is scheduled for procedure w/ Dr. Reid tomorrow 06/13. Can you please drop orders needed and informthe Commodity Loan Clerk when done Thank you Vanna documented in this encounterSouthview Medical Center03-10-2023 Miscellaneous Notes* Telephone Encounter - Lisa Garcia LPN - 06/09/2022 9:50 AM EST Patient notified. Lisa Garcia LPN * Telephone Encounter - Omer Narvaez DO - 06/09/2022 9:39 AM EST Yes. Omer Narvaez DO * Telephone Encounter - Etta Malik Pss - 06/09/2022 8:53 AM EST Patient states she had an appt with Dr. Jean-Baptiste ([facility]) yesterday and he wants to prescribe a vitamin - Macuhalth. Patient asking if okay to take. documented in this encounterSouthview Medical Center03-03-2023 NoteHNO ID: [id number] Author: Gab Pisano MD Service: ? Author [...] not break anything Was on way to [employer], trying to open her umbrella and it was right in front on her face and she went down really fast. Rolled on the steps but did not have any major damage. It was very embarrassing that this happened to her. Had gall bladder surgery at [facility] , there were no issues following that. 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 Rolled on the steps but did not have any major damage. It was very embarrassing that this happened to her. Had gall bladder surgery at [facility] , there were no issues following that. 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 states PVC's 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/12/2008 [...] FLX DX W/COLLJ SPEC [facility] COLONOSCOPY FLX DX W/COLLJ [...] Colon Cancer Mother Coronary Artery Disease Father ME 45 Cancer Brother multiple myeloma None Daughter [...] lovenox, Gab Pisano MD documented in this encounterSouthview Medical Center03-03-2023 Evaluation note* Diagnosis Chronic deep vein thrombosis [...] site Research subject documented in this encounter [facility] Miscellaneous Notes* Telephone Encounter - Lianne Hoover [...] 4:05 PM EST To: Omer Narvaez, DO Omer, Just BEAU, I will repeat a cardiac catheterization on her, and she may need an LAD stent and DAPT. Do you have any preference regarding either clopidogrel or ticagrelor + aspirin? Also, should she continue Lovenox afterwards? Thanks, Ayan Ruby MD, [facility], [facility] Staff, Section of Heart Failure and Transplantation Medicine Chief Compressor Station Engineer, Metabolic Exercise Testing Center [facility] Tonya Childers [facility] Treatment and Recovery Sam Storm Department of Cardiovascular Medicine [facility] and Sal [facility] Heart, Vascular and Thoracic [place] [address] [place] Tel: [phone] Fax: [phone] Appt: [phone] documented in this encounterSouthview Medical Center02-20-2023 NoteHNO ID: [id number] Author: Winsome [facility] Service: ? Author Type: ? Type: Progress Notes Filed: 05/22/2022 4:54 PM Note Text: IRB #[id number] [facility]TRanscritical access hospital PI: Dr. Ruby Study Visit: Week 97 [...] 03/29/22. Discharged on 03/31/22 KCCQ completed: Yes [place] QoL completed: Not Required per protocol EQ-5D-5L [...] provided: Protocol required tests/procedures Materials dispensed: None tutor coordinator: [facility] Pager #: [phone] [facility]-2023 NoteHNO ID: [id number] Author: Genia Rbuy MD Service: ? Author Type: Physician Type: Progress Notes Filed: 05/22/2022 4:13 PM Note Text: Heart and Vascular [place] [facility] SECTION OF HEART FAILURE and CARDIAC TRANSPLANT MEDICINE OUTPATIENT VISIT DATE May 22, 2022 OUTPATIENT VISIT TYPE Established Patient PRIMARY CARE PHYSICIAN: Gab Pisano [address] [place] [address] CHIEF COMPLAINT: ATTR Cardiac Amyloidosis HISTORY OF PRESENT ILLNESS Yris Villagomez is a 81 year old White female who [facility] of Heart Failure. [...] colon with hemorrhage, DVT (deep venous thrombosis) ([facility]), Dysmetabolic syndrome X, Hemorrhage of gastrointestinal tract, [...] Blood dyscrasia, Chronic obstructive pulmonary disease (COPD) ([facility]), Diabetes ([facility]), Glaucoma, Heart attack ([facility]), Parkinson disease ([facility]), Seizures ([facility]), Snoring, Stroke ([facility]), or Syncope. The patient has a past [...] flx dx [facility] egd transoral biopsy single/multiple (09/30/2012); colonoscopy flx 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 states PVC's 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/12/2008 [...] sites of abdomina (more content not included)... [facility]02-20-2023 History of Present illness Narrative* [facility] - 05/22/2022 4:46 PM EST IRB #[id number] CardioTTRansform PI: Dr. Ruby Study Visit: Week 97 I met with the patient for the Study Day 67 Visit for the CardioTTRansform Study. Reaffirmed that [...] 03/29/22. Discharged on 03/31/22 KCCQ completed: Yes [place] QoL completed: Not Required per protocol EQ-5D-5L [...] provided: Protocol required tests/procedures Materials dispensed: None tutor coordinator: [facility] Pager #: [phone] documented in this encounterSouthview Medical Center02-20-2023 Instructions* Patient Instructions* Genia Ruby MD - [...] echocardiogram and fasting labs documented in this encounterSouthview Medical Center02-20-2023 History of Present illness Narrative* Genia Ruby MD - 05/22/2022 3:44 PM EST Images from the original note were not included. Heart and Vascular [place] [facility] SECTION OF HEART FAILURE and CARDIAC TRANSPLANT MEDICINE OUTPATIENT VISIT DATE May 22, 2022 OUTPATIENT VISIT TYPE Established Patient PRIMARY CARE PHYSICIAN: Gab Pisano [address] [place] [address] CHIEF COMPLAINT: ATTR Cardiac Amyloidosis HISTORY OF PRESENT ILLNESS Yris Villagomez is a 81 year old White female who [facility] management of Heart Failure. 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 The patient has been referred by Genia Ruby MD. 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), Chest pain, Chronic kidney disease (CKD), stage III (moderate) ([facility]) (07/27/2016), Coronary artery disease due to calcified coronary lesion (06/22/2021), Diverticulitis, Diverticulosis of colon (without mention of hemorrhage), Diverticulosis of colon with hemorrhage, DVT (deep venous thrombosis) ([facility]), Dysmetabolic syndromeX, Hemorrhage of gastrointestinal tract, unspecified, [...] Blood dyscrasia, Chronic obstructive pulmonary disease (COPD) ([facility]), Diabetes ([facility]), Glaucoma, Heart attack ([facility]), Parkinson disease ([facility]), Seizures ([facility]), Snoring, Stroke ([facility]), or Syncope. The patient has a past [...] flx dx [facility]collj [facility] egd transoral biopsy single/multiple (09/30/2012); colonoscopy flx [...] Order Specific Question: Provider Answer: Genia RUBY [[id number]] Order Specific Question: CVM Section: Answer: Heart Failure Order Specific Question: Testing Options: Answer: No Testing Order Specific Question: Return: Answer: 3 months CARDIAC CD MIXER ORDER Order Specific Question: Approving Staff Aquatics Specialist or CT Surgeon Answer: Genia RUBY [[id number]] Order Specific Question: Performing Physician Answer: FIRST AVAILABLE [[id number]] Order Specific Question: Date of Procedure Answer: [...] of known heart failure to guide therapy [facility] STAFF PHYSICIAN NOTE OF PERSONAL INVOLVEMENT IN CARE I have personally performed a xunb-rx-bmoa diagnostic evaluation on this patient, including anamnesis [...] and Transplantation Medicine Nate Meredith and Tonya AbadHenry [facility] Sam Storm Department of Cardiovascular Medicine Jonatan Fisher [facility] Heart, Vascular and Thoracic [place] [address], [place] [address] [place] Tel: [phone] Fax: [phone] Appt: [phone] documented in this encounterSouthview Medical Center02-20-2023 History of Past illness Narrative* Problem Noted [...] of this encounter (statuses as of 10/12/2022) [facility] Narrative* Problem Noted [...] of this encounter (statuses as of 10/13/2022) [facility] Narrative* Problem Noted [...] of this encounter (statuses as of 10/19/2022) [facility] Past illness Narrative* Problem Noted [...] of this encounter (statuses as of 10/31/2022) [facility] Past illness Narrative* Problem Noted [...] of this encounter (statuses as of 11/01/2022) [facility] Past illness Narrative* Problem Noted [...] of this encounter (statuses as of 11/14/2022) [facility] Past illness Narrative* Problem Noted [...] of this encounter (statuses as of 11/17/2022) [facility] of Past illness Narrative* Problem Noted [...] of this encounter (statuses as of 11/21/2022) [facility] of Past illness Narrative* Problem Noted [...] of this encounter (statuses as of 11/24/2022) [facility] of Past illness Narrative* Problem Noted [...] of this encounter (statuses as of 11/24/2022) [facility] of Past illness Narrative* Problem Noted [...] of this encounter (statuses as of 11/27/2022) [facility] Past illness Narrative* Problem Noted [...] of this encounter (statuses as of 11/29/2022) [facility] Past illness Narrative* Problem Noted [...] of this encounter (statuses as of 12/05/2022) [facility] Past [facility] Narrative* Problem Noted [...] of this encounter (statuses as of 12/07/2022) [facility] Past illness Narrative* Problem Noted [...] of this encounter (statuses as of 12/08/2022) [facility] Narrative* Problem Noted [...] of this encounter (statuses as of 12/13/2022) [facility] Narrative* Problem Noted [...] of this encounter (statuses as of 12/23/2022) [facility] Narrative* Problem Noted [...] of this encounter (statuses as of 01/26/2023) [facility] Narrative* Problem Noted [...] of this encounter (statuses as of 01/30/2023) [facility] Narrative* Problem Noted [...] of this encounter (statuses as of 02/05/2023) [facility] Narrative* Problem Noted [...] of this encounter (statuses as of 02/06/2023) [facility] Narrative* Problem Noted [...] of this encounter (statuses as of 02/11/2023) [facility] Narrative* Problem Noted [...] of this encounter (statuses as of 02/24/2023) [facility] Narrative* Problem Noted [...] of this encounter (statuses as of 03/10/2023) [facility] Narrative* Problem Noted [...] of this encounter (statuses as of 03/16/2023) [facility] Narrative* Problem Noted Date Diagnosed Date Resolved Date Cholecystitis 05/22/2022 10/12/2022 Cholelithiasis without cholangitis 03/29/2022 10/12/2022 Symptomatic cholelithiasis 03/29/2022 0 10/12/2022 Acute stress reaction 09/16/20202022 Recent bereavement 09/16/2020 Hospital discharge follow-up 05/14/2019 02/21/2022 Moderate protein-calorie [...] as of this encounter (statuses as of 05/04/2023) [facility] Narrative* Problem Noted Date Diagnosed Date Resolved Date Cholecystitis 05/22/2022 10/12/2022 Cholelithiasis without cholangitis 03/29/2022 10/12/2022 Symptomatic cholelithiasis 03/29/2022 0 10/12/2022 Acute stress reaction 09/16/20202022 Recent bereavement 09/16/2020 Hospital discharge follow-up 05/14/2019 02/21/2022 Moderate protein-calorie [...] as of this encounter (statuses as of 05/05/2023) [facility] Narrative* Problem Noted Date Diagnosed Date Resolved Date Cholecystitis 05/22/2022 10/12/2022 Cholelithiasis without cholangitis 03/29/2022 10/12/2022 Symptomatic cholelithiasis 03/29/2022 0 10/12/2022 Acute stress reaction 09/16/20202022 Recent bereavement 09/16/2020 Hospital discharge follow-up 05/14/2019 02/21/2022 Moderate protein-calorie [...] as of this encounter (statuses as of 05/11/2023) [facility] Narrative* Problem Noted Date Diagnosed Date Resolved Date Cholecystitis 05/22/2022 10/12/2022 Cholelithiasis without cholangitis 03/29/2022 10/12/2022 Symptomatic cholelithiasis 03/29/2022 0 10/12/2022 Acute stress reaction 09/16/20202022 Recent bereavement 09/16/2020 Hospital discharge follow-up 05/14/2019 02/21/2022 Moderate protein-calorie [...] as of this encounter (statuses as of 05/16/2023) [facility] NotePatient Outreach (AMBG) YRIS VILLAGOMEZ ([id number]) 1940 F Date Time Provider Department 05/15/22 [...] like to speak with a social work cafeteria team leader to help give you support for any [...] you up for automated weekly questionnaires through [employer]. This is an easy way for us [...] tablet by mouth once daily. - INV [id number] 150 MG/ML OR PLACEBO INJECTION (IRB 20-) Inject 0.3 mL subcutaneously every 4 weeks. For Investigational Drug Use Only. PI: Evi Zamora MD. Inject 0.3 mL subcutaneously every 4 weeks. EXP: 2 hours at room temp. Protect from light. - vitamin A (AQUASOL A) 10,000 unit capsule Take 10,000 Units by mouth Every 3 Days. 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 Author [...] Diane Alcala RN May 15, 2022 10:04 [facility]02-13-2023 NoteHNO ID: [id number] Author: Diane Alcala RN Service: ? Author [...] like to speak with a social work cafeteria team leader to help give you support for any [...] you up for automated weekly questionnaires through [employer]. This is an easy way for us [...] Diane Alcala RN May 15, 2022 9:49 [facility]02-13-2023 History of Present illness Narrative* Diane [...] 15, 2022 10:04 AM documented in this encounterSouthview Medical Center02-13-2023 History of Present illness Narrative* [...] like to speak with a social work cafeteria team leader to help give you support for any [...] you up for automated weekly questionnaires through [employer]. This is an easy way for us [...] 15, 2022 9:49 AM documented in this encounterSouthview Medical Center01-17-2023 History of Present illness Narrative* Aneesh Kaplan [...] MD 04/18/2022 7:38 AM documented in this encounterSouthview Medical Center01-11-2023 History of Present illness Narrative* Diane Alcala [...] like to speak with a social work cafeteria team leader to help give you support for any [...] you up for automated weekly questionnaires through [employer]. This is an easy way for us [...] 12, 2022 2:06 PM documented in this encounterSouthview Medical Center01-10-2023 History of Present illness Narrative* Mame Ruelas SERVICE SPRINKLER HELPER - 04/11/2022 9:23 AM EST Verified name [...] own. 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 Level 10. Very black and blue at incision site. Please call her to discuss. documented in this encounterSouthview Medical Center01-03-2023 History of Present illness Narrative* Bridget Motta RN - 04/04/2022 12:43 PM EST TRANSITIONAL CARE MANAGEMENT (TCM) COMMUNITY MONITORING PROGRAM Provider Action/FYI: TCM INITIAL OUTREACH ELIGIBLE FOR TCM THROUGH 04/1404-05-2021 - [facility] Cholelithiasis without cholangitis You were known to have gallstones came to the hospital underwent laparoscopic cholecystectomy on 03/29/2022 OPERATIONS DURING HOSPITALIZATION: Laparoscopic cholecystectomy with intra- operative cholangiogram INCISION SITE - USER EXPERIENCE RESEARCHER NO REDNESS, SWELLING OR DRAINAGE [place] - DARK - ADVISED TO INCREASE WATER INTAKE PAIN - 2/10 SOB - NO FEVER/CHILLS - NO NAUSEA/VOMITING - NO SUMMARY: Pt discharged from [facility] on 03-31-2022. Admitted for: To undergo planned elective surgery Contact made with patient: Yes Hi my name is Bridget Motta RN and I am calling from the [facility] on behalf of your PCP, Gab Pisano [...] like to speak with a social work cafeteria team leader to help give you support for any [...] I will send your request to a appointment scheduler who will contact and assist you [...] TCM Home Visit Referral Source of Stratification: [facility] Admission Status: Discharged Readmission Risk Score: 9 LAKSHMI Score: 6 Patient meets program referral criteria: No Patient does not qualify for High Risk TCM Home Visit program due to: Discharged home, does not meet program criteria Bridget Motta RN April 04, 2022 1:05 PM documented in this encounterSouthview Medical Center12-30-2022 Miscellaneous Notes* Telephone Encounter - Edita Bermudez [...] surgery on 03/29/[address] Kaplan at [facility]. She states she currently has a urinary [...] advise patient. Thank you. documented in this encounterSouthview Medical Center12-28-2022 History of Past illness Narrative* Problem Noted [...] of this encounter (statuses as of 02/04/2023) [facility] Narrative* Problem Noted [...] of this encounter (statuses as of 02/04/2023) [facility] Miscellaneous Notes* Telephone Encounter - Amrita Scott RN - 03/29/2022 12:16 PM EST Provider portion of [employer] forms completed and faxed. No PA needed for Vyndam[employer] medication per cover my meds. Amrita Scott RN March 29, 2022 12:16 PM documented in this encounterSouthview Medical Center12-20-2022 Miscellaneous Notes* Telephone Encounter - Alison Bowen [...] 21, 2022 8:36 AM documented in this encounterSouthview Medical Center12-19-2022 Miscellaneous Notes* Telephone Encounter - Helga Nicole [...] back pain Protocols used: Abdominal Pain - [id number] documented in this encounterSouthview Medical Center12-13-2022 History of Present illness Narrative* Diane Alcala RN - 03/14/2022 6:14 PM EST INSIGHT CDM TELEPHONIC OUTREACH Provider Action/FYI: CDM: CHF/ CKD Spk with Pt she reports mild foot edema after having food with more sodium content. Denies Sob, wheezing or coughing. Wt 134 lbs, Pt has a [facility] Nurse visit tomorrow. Pt noted is scheduled [...] like to speak with a social work cafeteria team leader to help give you support for any [...] you up for automated weekly questionnaires through [employer]. This is an easy way for us [...] 14, 2022 6:14 PM documented in this encounterSouthview Medical Center12-12-2022 Miscellaneous Notes* Telephone Encounter - Coco Wills - 03/13/2022 3:06 PM EST PAP forms faxed to [employer] with prescription. documented in this encounterSouthview Medical Center12-06-2022 History of Present illness Narrative* Omer Narvaez, [...] and was discharged. Was seen by a etiologist at a tertiary center. Testing suggested that [...] edema. SKIN: No jaundice or rash. 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 No focal motor [...] with more than 50% of the total [id number]-ew-ullh time of the visit in reviewing test results, plan of care and coordination of care Omer Narvaez DO documented in this encounterSouthview Medical Center12-05-2022 Miscellaneous Notes* Telephone Encounter - Candice Yang [...] surgery. Omer Narvaez DO documented in this encounterSouthview Medical Center12-01-2022 History of Present illness Narrative* Winsome [facility] - 03/02/2022 1:31 PM EST IRB #[id number] CardioTTRansform PI: Dr. Ruby Study Visit: Week Week 85 I met with the patient for the Study Day 58 Visit for the CardioTTRansform Study. Reaffirmed that [...] n/a KCCQ completed: Not Required per protocol [place] QoL completed: Not Required per protocol EQ-5D-5L [...] provided: Protocol required tests/procedures Materials dispensed: None tutor coordinator: Winsome Ch[facility] Pager #: [phone] documented in this encounterSouth[facility]11-25-2022 Miscellaneous Notes* Telephone Encounter - Edita Bermudez [...] Update on symptoms please documented in this encounterSouthview [facility] Center11-25-2022 History of Present illness Narrative* Amelia Jimenez [...] 24, 2022 9:55 AM documented in this encounterSouthview Medical Center11-21-2022 History of Present illness Narrative* Eugenio Hernandez MD - 02/20/2022 6:18 PM EST Images from the original note were not included. This note was created using TechPepper[employer]. Subjective Yris Villagomez is a 81 year [...] 2 tablets by mouth once daily. INV [id number] 150 MG/ML OR PLACEBO INJECTION (IRB 20-205) [...] now. Eugenio Hernandez MD documented in this encounterSouthview [facility] Center11-21-2022 Miscellaneous Notes* Telephone Encounter - Courtney Juarez [...] : No Protocols used: Abdominal Pain - [id number] documented in this encounterSouthview Medical Center11-18-2022 History and physical note * Franklin Gaona [...] record for internal providers or lettervia the [employer] for external providers. Chief Complaint: Abdominal pain History of Present Illness: Yris Villagomez is a 81 year old year old female intermittent abdominal pain, vomiting, RUQ pain. U/S shows stones and sludge. Elevated LFT's. Previous DVT, PE. 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 180 tablet 3 INV [id number] 150 MG/ML OR PLACEBO INJECTION (IRB 20-) [...] Colon Cancer Mother Coronary Artery Disease Father ME 45 Cancer Brother multiple myeloma None Daughter [...] Surgery, and Surgical Endoscopy documented in this encounterSouthview [facility] Center11-11-2022 History of Present illness Narrative* Diane Alcala RN - 02/10/2022 3:56 PM EST [facility] [employer]RE[facility] Provider Action/FYI: Call to Pt left a message to verify CHF/ CKD or other symptoms or needs. Contact made with patient: No - Left message Hello my name is Diane Alcala RN your Racing Secretary And Handicapper from the [facility] I am callingtoday for your bi-weekly check [...] Alcala RN - 02/08/2022 2:29 PM EST [employer] [facility]RE[facility] Provider Action/FYI: Call to Pt left a message to verify CHF/ CKD or other symptoms or needs. Contact made with patient: No - Left message Silver my name is Diane Alcala RN your Racing Secretary And Handicapper from the [facility] I am callingtoday for your bi-weekly check [...] 08, 2022 2:29 PM documented in this encounterSouthview Medical Center11-11-2022 Miscellaneous Notes* Telephone Encounter - LAKSHMI Galvin - 02/10/2022 9:17 AM EST SW received. JING successfully faxed pt's completed re-enrollment application, along with new prescription, to [facility] this date. All original forms [...] 2022 med assist re-enrollment for Lovenox through [facility]. Pt is in need of a new hard-copy prescription of her Lovenox to send along with the re-enrollment application. SW to forward to Dr. Narvaez. LAKSHMI Galvin-S documented in this encounterSouthview Medical Center11-07-2022 History of Present illness Narrative* Omer Mcgee DO Solange - 02/06/2022 2:26 PM EST Diagnoses: 1) [...] and was discharged. Was seen by a etiologist at a tertiary center. Testing suggested that [...] edema. SKIN: No jaundice or rash. 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 No focal motor [...] care. Omer Narvaez DO documented in this encounterSouthview Medical Center11-02-2022 Miscellaneous Notes* Telephone Encounter - Frances Chavez Ma - 02/01/2022 10:30 AM EDT Labs collected. * Telephone Encounter - Nuvia Grissom APRN.CNP - 01/30/2022 4:54 PM EDT Please make sure she gets the lab work SLMI. 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 INV [id number] 150 MG/ML OR PLACEBO INJECTION (IRB 20-) [...] Colon Cancer Mother Coronary Artery Disease Father ME 45 Cancer Brother multiple myeloma None Daughter None Daughter other (heart attack) Son other (fibramyalgia) Son other (blood clots in lungs) Son REVIEW OF SYMPTOMS: The review of systems data was entered by the nurse and reviewed by nj Nursing Notes: Emeli Jovel RN 01/31/2022 8:48 [...] Brayan Ahn III, MD documented in this encounterSouthview Medical Center11-01-2022 Nurse Note* Emeli Jovel RN - 01/31/2022 [...] gout. When was patient's last Mammogram screening? 2020 Last Colonoscopy: 2016 Emeli Jovel RN documented in this encounterSouthview Medical Center10-28-2022 History of Present illness Narrative* Amelia Jimenez RDFL - 01/27/2022 11:15 AM EDT Radiology Service [...] 10, 2022 2:31 PM documented in this encounterSouthview Medical Center10-25-2022 History of Present illness Narrative* Fredrick Walker RN - 01/24/2022 4:33 PM EDT [facility] TELEPHONIC OUTREACH Provider Action/FYI: Call to Pt left a message to verify CHF/ CKD or other symptoms or needs. Contact made with patient: No - Left message Hello my name is Diane Alcala RN your Racing Secretary And Handicapper from the [facility] I am callingtoday for your bi-weekly check in. I am sorry I missed your call. I will reach out to you again tomorrow. (if the third call I will reach out to you again next week) Enter next patient outreach date for the following day using the Track Pt Outreach. End outreach. Diane Alcala RN January 24, 2022 4:33 PM documented in this encounterSouthview Medical Center10-20-2022 Miscellaneous Notes* Telephone Encounter - Nuvia Grissom [...] on Sunday took Miralax Sunday night and Sunday. 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 INV [id number] 150 MG/ML OR PLACEBO INJECTION (IRB 20) Inject 0.3 mL subcutaneously every 4 weeks. [...] Colon Cancer Mother Coronary Artery Disease Father [place] 45 Cancer Brother multiple myeloma None Daughter [...] variant. AXIS: Left axis deviation INTERVALS: Normal IA interval QRS COMPLEX: Normal ST SEGMENT: Inferior [...] plan. Nuvia Grissom APRN.CNP documented in this encounterSouthview Medical Center10-14-2022 History of Present illness Narrative* Fredrick Walker RN - 01/13/2022 9:00 AM EDT [facility] TELEPHONIC OUTREACH Provider Action/FYI: Called Pt related to CHF/ CKD or other symptoms, left a message. Contact made with patient: No - Left message Silver my name is Diane Alcala RN your Racing Secretary And Handicapper from the [facility] I am callingtoday for your bi-weekly check [...] 13, 2022 9:00 AM documented in this encounterSouthview Medical Center10-13-2022 History of Present illness Narrative* Fredrick Walker RN - 01/12/2022 2:03 PM EDT [facility] TELEPHONIC OUTREACH Provider Action/FYI: Called Pt left a message to verify CHF/ CKD symptoms or needs. Contact made with patient: No - Left message Hello my name is Diane Alcala RN your Racing Secretary And Handicapper from the [facility] I am callingtoday for your bi-weekly check [...] 12, 2022 2:03 PM documented in this encounterSouthview Medical Center10-06-2022 Miscellaneous Notes* Telephone Encounter - LAKSHMI Galvin - 01/05/2022 3:51 PM EDT SW called pt to inform her that her Lovenox medication is available for pickup. Pt reports she willbe able to pick it up on 01/09/22. Medication is secured in Sw's office. LAKSHMI Galvin-S documented in this encounterSouthview Medical Center10-03-2022 History of Present illness Narrative* Nuvia Grissom, WINDING LATHE OPERATOR.RETURNED GOODS SORTER - 01/02/2022 1:41 PM EDT CC: Patient [...] nausea, vomiting, or diarrhea : See HPI PRODUCT DEVELOPMENT MANAGER: Negative for abnormal vaginal bleeding, abnormal vaginal discharge Skin: Negative for lesions, rash, and itching Neurologic: No headache, weakness, numbness, tingling, dizziness, syncope. 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 For [...] Colon Cancer Mother Coronary Artery Disease Father [place] 45 Cancer Brother multiple myeloma None Daughter [...] plan. Nuvia Grissom APRN.CNP documented in this encounterSouthview Medical Center09-23-2022 Miscellaneous Notes* Telephone Encounter - Lizbeth Mark LPN - 12/23/2021 3:15 PM EDT Last lipid panel was done in August. * Telephone Encounter - Hayley Adorno Pss - 12/23/2021 9:50 AM EDT Patient asking if Dr. Pisano would like a lipid panel done prior to office visit on 01/02. Patient having labs drawn on 12/29. Please advise and call patient. documented in this encounterSouthview Medical Center09-23-2022 Miscellaneous Notes* Telephone Encounter - Corinne Hodgson [...] to 99 days. Please review and advise. Haylye Adorno Pss documented in this encounterSouthview Medical Center09-12-2022 History of Present illness Narrative* Fredrick Walker [...] like to speak with a social work cafeteria team leader to help give you support for any [...] you up for automated weekly questionnaires through [employer]. This is an easy way for us [...] 12, 2021 9:29 AM documented in this encounterSouthview Medical Center09-06-2022 History of Present illness Narrative* Rito Valera MD - 12/06/2021 2:11 PM EDT Images from the original note were not included. 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 Chest pain Chronic kidney disease (CKD), stage III (moderate) (HCC) 07/27/2016 Coronary artery disease due to calcified coronary lesion 06/22/2021 Diverticulitis Diverticulosis of colon (without mention of hemorrhage) Diverticulosis of colon with hemorrhage DVT (deep venous thrombosis) ([facility]) After knee surgery Dysmetabolic syndrome X Hemorrhage [...] FLX DX W/COLLJ SPEC [facility]ON[facility] FLX DX W/COLLJ [...] Colon Cancer Mother Coronary Artery Disease Father ME 45 Cancer Brother multiple myeloma None Daughter [...] by mouth once daily.^Disp: 30 capsule^Rfl: 11 [facility]-[id number] 150 MG/ML OR PLACEBO INJECTION (IRB 20-)^Inject [...] non-medical management as above. Daija Valera MD [facility] Section Of Heart Failure and Cardiac Transplant Medicine Heart and Vascular [place] [facility] Desk [id number] [place] [address] documented in this encounterSouthview Medical Center09-06-2022 History of Present illness Narrative* [facility] Ch[facility] - 12/06/2021 10:04 AM EDT IRB #[id number] [...] Dates and locations: n/a KCCQ completed: Yes [place] QoL completed: Not Required per protocol EQ-5D-5L [...] provided: Protocol required tests/procedures Materials dispensed: None tutor coordinator: Wins[facility] Ch[facility] Pager #: [phone] documented in this encounterSouthview Medical Center08-12-2022 History of Present illness Narrative* Fredrick Walker [...] like to speak with a social work cafeteria team leader to help give you support for any [...] you up for automated weekly questionnaires through [employer]. This is an easy way for us [...] 11, 2021 1:20 PM documented in this encounterSouthview Medical Center07-28-2022 History of Present illness Narrative* Fredrick Walker [...] like to speak with a social work cafeteria team leader to help give you support for any [...] you up for automated weekly questionnaires through [employer]. This is an easy way for us [...] 27, 2021 3:34 PM documented in this encounterSouthview Medical Center07-13-2022 History of Present illness Narrative* Fredrick Walker RN - 10/12/2021 3:40 PM EDT INS[facility] TELEPHONIC OUTREACH Provider Action/FYI: Routed updates to Dr. Clementina Heath with Pt she noted on 09/24/21 [...] like to speak with a social work cafeteria team leader to help give you support for any [...] you up for automated weekly questionnaires through [employer]. 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 INV [id number] 150 MG/ML OR PLACEBO INJECTION (IRB ) [...] 1 tablet by mouth once daily. 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 [facility] ED 09/12/21 Seen for weakness, chest pain [...] like to speak with a social work cafeteria team leader to help give you support for any of these needs? Yes - patient would like to speak to a Primary Care Pediatrics Hospitalist - Informed patient that a PrimaryCare Pediatrics Hospitalist will be in contact to discuss further. Routed to the ADULT PRIMARY CARE SOCIAL WORK pool [[id number]] and indicated in the FYI box. It [...] you up for automated weekly questionnaires through [employer]. This is an easy way for us [...] 16, 2021 10:04 AM documented in this encounterSouthview Medical Center06-16-2022 History of Present illness Narrative* [facility]ome [facility]iqueirwin [facility] - 09/15/2021 1:17 PM EDT IRB #[id number] [...] outside hospitalizations/ER visits: Yes Dates and locations: [facility] ER on 09/12/2021. Patient c/o left breast discomfortwhich she describes as indigestion. Vitals WNL, ECG normal. Chest x-ray - clear. Discharged to home09/12/21. KCCQ completed: Yes [place] QoL completed: Yes EQ-5D-5L completed: Yes Ocular [...] provided: Protocol required tests/procedures Materials dispensed: None tutor coordinator: Wins[facility] Pager #: [phone] documented in this encounterSouthview Medical Center06-13-2022 Miscellaneous Notes* Telephone Encounter - Helga iNcole RN - 09/12/2021 2:02 PM EDT Patient [...] 10. OTHER SYMPTOMS: Denies Protocols used: CHEST [id number] documented in this encounterSouthview Medical Center06-09-2022 History of Present illness Narrative* Gab Pisano [...] a trial drugI will confirm with the patient accounts manager if it would be good to have the medication. Hyperlipidemia- we need to check her lipids and treat as needed. Last check was a year and a half ago. Magnesium was higher in the last lab, recheck is required. Memory deficits: last visit for the first time she reported having memory deficits. She does not want to go to [facility]. Unless things get worse. 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 Chest pain Chronic kidney disease (CKD), stage III (moderate) ([facility]) 07/27/2016 Coronary artery disease due to calcified coronary lesion 06/22/2021 Diverticulitis Diverticulosis of colon (without mention of hemorrhage) Diverticulosis of colon with hemorrhage DVT (deep venous thrombosis) ([facility]) After knee surgery Dysmetabolic syndrome X Hemorrhage [...] FLX DX W/COLLJ SPEC [facility]ON[facility] FLX DX W/COLLJ [...] Colon Cancer Mother Coronary Artery Disease Father ME 45 Cancer Brother multiple myeloma None Daughter [...] tablet torsemide (DEMADEX) 10 mg tablet Ipratropium Wayne (ATROVENT) 21 mcg (0.03 %) nasal spray tafamidis (VYNDAMAX) 61 mg INV [facility]-[id number] 150 MG/ML OR PLACEBO INJECTION (IRB 20-) [...] good. Gab Pisano MD documented in this encounterSouthview Medical Center06-07-2022 Miscellaneous Notes* Telephone Encounter - Ophelia Anderson - 09/06/2021 9:37 AM EDT Spoke to patient todayregarding 09/15/21 appointment. Patient has decided to keep 09/15/21~ left my name and numner documented in this encounterSouthview Medical Center06-02-2022 History of Present illness Narrative* Fredrick Walker RN - 09/01/2021 10:58 AM EDT [facility] TELEPHONIC OUTREACH Provider Action/FYI: 08/24/21 [facility] ED Nausea and Vomiting Spk with Pt, [...] like to speak with a social work cafeteria team leader to help give you support for any [...] you up for automated weekly questionnaires through [employer]. This is an easy way for us [...] 01, 2021 10:58 AM documented in this encounterSouthview Medical Center05-18-2022 History of Present illness Narrative* Fredrick Walker [...] like to speak with a social work cafeteria team leader to help give you support for any [...] you up for automated weekly questionnaires through [employer]. This is an easy way for us [...] 17, 2021 11:55 AM documented in this encounterSouthview Medical Center05-16-2022 History of Present illness Narrative* Fredrick Walker RN - 08/15/2021 10:20 AM EDT [facility] TELEPHONIC OUTREACH Provider Action/FYI: Call to Pt left a message to verify CHF/ CKD or other symptom status and needs. Contact made with patient: No - Left message Silver my name is Diane Alcala RN your Racing Secretary And Handicapper from the [facility] I am calling today for your bi-weekly check in. I am sorry I missed your call. I will reach out to you again tomorrow. (if the third call I will reach out to you again next week) Enter next patient outreach date forthe using the Track Pt Outreach. End outreach. Diane Alcala RN August 15, 2021 10:20 AM documented in this encounterSouthview Medical Center05-06-2022 History of Present illness Narrative* Omer Narvaez, [...] and was discharged. Was seen by a etiologist at a tertiary center. Testing suggested that [...] pain. She did however bump into her can dryer door a few weeks ago and had [...] edema. SKIN: No jaundice or rash. 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 No focal motor [...] care. Omer Narvaez DO documented in this encounterSouthview Medical Center04-29-2022 History of Present illness Narrative* Fredrick Walker RN - 07/29/2021 8:40 AM EDT [facility] TELEPHONIC OUTREACH Provider Action/FYI: Hx: CHF, CKD [...] like to speak with a social work cafeteria team leader to help give you support for any [...] you up for automated weekly questionnaires through [employer]. This is an easy way for us [...] 29, 2021 8:56 AM documented in this encounterSouthview Medical Center04-14-2022 History of Present illness Narrative* Fredrick Walker [...] like to speak with a social work cafeteria team leader to help give you support for any [...] you up for automated weekly questionnaires through [employer]. This is an easy way for us [...] 14, 2021 4:18 PM documented in this encounterSouthview Medical Center04-13-2022 Miscellaneous Notes* Telephone Encounter - [facility] Ch[facility] - 07/13/2021 4:05 PM EDT IRB #[id number] CardioTTRansform PI: Dr. Ruby Reaffirmed that the patient still wishes to participate in the study and continues to consent to the study. Informed Consent Form, version 17 Jun 2021 sent to patient by [employer] via email. Patient contact information reaffirmed and updated. Coordinator contact information provided to the patient. Education provided: Protocol required tests/procedures Winsome Hiirwin [facility] Pager #: [phone] documented in this encounterSouthview Medical Center04-04-2022 History of Present illness Narrative* LAKSHMI Storm - 07/04/2021 11:27 AM EDT SOCIAL WORK FOLLOW UP NOTE: [facility] Date of service: July 04, 2021 Yris Cormier Rebe[place] is being seen for a follow up social work visit. 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 No other needs identified. PLAN: Continue follow up as needed F/U APPOINTMENT: LAKSHMI Shields documented in this encounterSouthview Medical Center04-01-2022 Miscellaneous Notes* Telephone Encounter - LAKSHMI Storm - 07/01/2021 2:51 PM EDT SOCIAL WORK FOLLOW UP NOTE: [facility] Date of service: July 01, 2021 Yris Villagomez is being seen for a follow up social work visit. Today's visit includes: patient TOPICS ADDRESSED: Finances; Patient's Lovenox arrived and patient informed. 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 No other needs identified. PLAN: Continue follow up as needed F/U APPOINTMENT: PRN LAKSHMI Stomr documented in this encounterSouthview Medical Center03-31-2022 History of Present illness Narrative* Fredrick Walker RN - 06/30/2021 10:27 AM EDT INSIGHT [facility]M TELEPHONIC OUTREACH Provider Action/FYI: Spk with Pt who reports she is doing well, her is in an [facility] she and her childrenare ready to go [...] 30, 2021 10:27 AM documented in this encounterSouthview Medical Center03-29-2022 Miscellaneous Notes* Telephone Encounter - LAKSHMI Storm - 06/28/2021 9:28 AM EDT SOCIAL WORK FOLLOW UP NOTE: [facility] Date of service: June 28, 2021 Yris Villagomez is being seen for a follow up social work visit. Today's visit includes: patient not present TOPICS ADDRESSED: Finances; fax received and sent back to [facility] for reorder. PLAN: Continue follow up as needed F/U APPOINTMENT: PRLAKSHMI Overton documented in this encounterSouthview Medical Center03-28-2022 Miscellaneous Notes* Telephone Encounter - LAKSHMI Storm - 06/27/2021 2:56 PM EDT SOCIAL WORK FOLLOW UP NOTE: [facility] Date of service: June 27, 2021 Yris Villagomez is being seen for a follow up social work visit. Today's visit includes: patient and [employer] TOPICS ADDRESSED: Patient called to state she has 21 days of medication left. SW called [facility] to have reorder form faxed to office. Once received will complete and fax to [facility]. No other needs identified. PLAN: Assist with financial support applications and Continue follow up as needed F/U APPOINTMENT: PRLAKSHMI Overton [facility] Instructions* Patient Instructions* Genia Ruby MD - 06/22/2021 12:21 PM EDT RTC in 3 months Will refer to neurology for memory impeirment [facility] History of Present illness Narrative* Genia Ruby MD - 06/22/2021 12:00 PM EDT Images from the original note were not included. 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 The patient has been referred by Evi Zamora MD. Yris Villagomez has a past medical history of Abdominal pain, unspecified site, Acid reflux, Acute gastritis withoutmention of hemorrhage, Arrhythmia, Benign neoplasm of colon (03/12/2008), Chest pain, Chronic kidney disease (CKD), stage III (moderate) ([facility]) (07/27/2016), Coronary artery disease due to calcified coronary lesion (06/22/2021), Diverticulitis, Diverticulosis of colon (without mention of hemorrhage), Diverticulosis of colon with hemorrhage, DVT (deep venous thrombosis) ([facility]), Dysmetabolic syndrome X, Hemorrhage of gastrointestinal tract, [...] Blood dyscrasia, Chronic obstructive pulmonary disease (COPD) ([facility]), Diabetes ([facility]), Glaucoma, Heart attack ([facility]), Parkinson disease ([facility]), Seizures ([facility]), Snoring, Stroke ([facility]), or Syncope. The patient has a past [...] [facility] egd transoral biopsy single/multiple (09-30-12); colonoscopy flx [...] once in a while at night the [employer] races for a few seconds. Occasional leg swelling. Denies chest pain. Still has some hand tingling. Recently injured left foot but improving. Suffers from some degree of memory loss. 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 Ipratropium Wayne (ATROVENT) 21 mcg (0.03 %) nasal spray Use 2 Sprays in the nose every 12 hours. tafamidis (VYNDAMAX) 61 mg Take 1 capsule by mouth once daily. INV [id number] MG/ML OR [place]ACE[place] INJECTION (IRB 20-205) [...] Wt 63.4 kg (139 lb 11.2 oz) [id number]% BMI 23.25 kg/m CONSTITUTIONAL: Well appearing, in [...] year old White female who [facility] for [facility] and management of Heart Failure. [...] hemorrhage, DVT (deep venous thrombosis) (HCC), Dysmetabolic syndrome X, Hemorrhage of gastrointestinal tract, [...] flx dx w[facility]collj spec [facility] egd transoral biopsy single/multiple (09-30-12); colonoscopy flx [...] Order Specific Question: Provider Answer: Genia RUBY [[id number]] Order Specific Question: CVM Section: Answer: Heart Failure Order Specific Question: Testing Options: Answer: No Testing Order Specific Question: Return: Answer: 3 months CONSULT TO NEUROLOGY Standing Status: Future Standing Expiration Date: 06/22/2022 Order Specific Question: Does consulting provider have [facility] Epic access? Answer: Yes [facility] STAFF PHYSICIAN NOTE OF PERSONAL INVOLVEMENT IN CARE I have personally performed a [id number] diagnostic evaluation on this patient, including anamnesis [...] Recovery Sam Storm [facility] Heart, Vascular and Thoracic [place] [address] [place] Tel: [phone] Fax: [phone] Appt: [phone] documented in this [facility]21 NoteHNO ID: [id number] Author: Alena Bradley APRN.[employer]TER Service: ? Author Type: Nurse Practitioner Type: Progress Notes Filed: 10/14/2020 8:29 AM Note Text: [facility] PATIENT: Yris Villagomez MRD: [id number] DATE: October 14, 2020 IDENTIFYING INFORMATION: Yris [...] putting off. [facility] she had better test results and this has helped her relax. She shares that her appetite may also be better. Her grandchildren are visiting, they went out to eat Jordanian food and she ate a lot of [...] of the medication, c (more content not included)...[facility]06-17-2021 History of Past illness Narrative* Problem Noted [...] of this encounter (statuses as of 02/04/2023) [facility] Narrative* Problem Noted [...] of this encounter (statuses as of 02/04/2023) [facility] NoteHNO ID: [id number] Author: Alena Bradley APRN.[employer] Service: ? Author Type: Nurse Practitioner Type: Progress Notes Filed: 09/16/2020 10:36 AM Note Text: [facility] GENERAL BEHAVIORAL MEDICINE INITIAL PSYCHIATRIC EVALUATION PATIENT: Yris Villagomez MRD: [id number] DATE: September 16, 2020 IDENTIFYING INFORMATION: Yris [...] month. She started on medicines and her etiologist took her off the SSRI (effexor) [place] [...] for her. She is strong in her zoroastrian daisy. 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 She worked up to (more content not included)... [facility] History of Past illness Narrative* Problem Noted [...] of this encounter (statuses as of 06/27/2021) [facility] Narrative* Problem Noted [...] of this encounter (statuses as of 06/28/2021) [facility] Narrative* Problem Noted [...] of this encounter (statuses as of 06/30/2021) [facility] Narrative* Problem Noted [...] of this encounter (statuses as of 06/30/2021) [facility] Narrative* Problem Noted [...] of this encounter (statuses as of 07/01/2021) [facility] Narrative* Problem Noted [...] of this encounter (statuses as of 07/04/2021) [facility] Narrative* Problem Noted [...] of this encounter (statuses as of 07/13/2021) [facility] Narrative* Problem Noted [...] of this encounter (statuses as of 07/14/2021) [facility] Narrative* Problem Noted [...] of this encounter (statuses as of 07/16/2021) [facility] Narrative* Problem Noted [...] of this encounter (statuses as of 07/29/2021) [facility] N[facility]ative* Problem Noted [...] of this encounter (statuses as of 08/05/2021) [facility] N[facility]* Problem Noted [...] of this encounter (statuses as of 08/17/2021) [facility] N[facility]* Problem Noted [...] of this encounter (statuses as of 08/17/2021) [facility] N[facility]* Problem Noted [...] of this encounter (statuses as of 09/01/2021) [facility] N[facility]* Problem Noted [...] of this encounter (statuses as of 09/06/2021) [facility]* Problem Noted [...] of this encounter (statuses as of 09/08/2021) [facility] N[facility]* Problem Noted [...] of this encounter (statuses as of 09/14/2021) [facility] N[facility]* Problem Noted [...] of this encounter (statuses as of 09/15/2021) [facility]* Problem Noted [...] of this encounter (statuses as of 09/16/2021) [facility]* Problem Noted [...] of this encounter (statuses as of 10/06/2021) [facility] N[facility]* Problem Noted [...] of this encounter (statuses as of 10/12/2021) [facility] N[facility]* Problem Noted [...] of this encounter (statuses as of 10/27/2021) [facility] N[facility]* Problem Noted [...] of this encounter (statuses as of 11/11/2021) [facility] N[facility]* Problem Noted [...] of this encounter (statuses as of 12/06/2021) [facility]* Problem Noted [...] of this encounter (statuses as of 12/12/2021) [facility]* Problem Noted [...] of this encounter (statuses as of 12/19/2021) [facility]* Problem Noted [...] of this encounter (statuses as of 12/23/2021) [facility]* Problem Noted [...] of this encounter (statuses as of 12/26/2021) [facility]* Problem Noted [...] of this encounter (statuses as of 12/27/2021) [facility]* Problem Noted [...] of this encounter (statuses as of 01/02/2022) [facility]* Problem Noted [...] of this encounter (statuses as of 01/05/2022) [facility]* Problem Noted [...] of this encounter (statuses as of 01/12/2022) [facility]* Problem Noted [...] of this encounter (statuses as of 01/18/2022) [facility]* Problem Noted [...] of this encounter (statuses as of 01/19/2022) [facility]* Problem Noted [...] of this encounter (statuses as of 01/24/2022) [facility]* Problem Noted [...] of this encounter (statuses as of 01/31/2022) [facility]* Problem Noted [...] of this encounter (statuses as of 02/01/2022) [facility]* Problem Noted [...] of this encounter (statuses as of 02/03/2022) [facility]* Problem Noted [...] of this encounter (statuses as of 02/06/2022) [facility]* Problem Noted [...] of this encounter (statuses as of 02/10/2022) [facility]* Problem Noted [...] of this encounter (statuses as of 02/10/2022) [facility]* Problem Noted [...] of this encounter (statuses as of 02/14/2022) [facility]* Problem Noted [...] of this encounter (statuses as of 02/17/2022) [facility] Problem Noted [...] of this encounter (statuses as of 02/21/2022) [facility] Problem Noted [...] of this encounter (statuses as of 03/02/2022) [facility] Problem Noted [...] of this encounter (statuses as of 03/07/2022) [facility] Problem Noted [...] of this encounter (statuses as of 03/13/2022) [facility] Problem Noted [...] of this encounter (statuses as of 03/14/2022) [facility] Problem Noted [...] of this encounter (statuses as of 03/14/2022) [facility] Problem Noted [...] of this encounter (statuses as of 03/15/2022) [facility] Problem Noted [...] of this encounter (statuses as of 03/21/2022) [facility] Problem Noted [...] of this encounter (statuses as of 03/22/2022) [facility] Problem Noted [...] of this encounter (statuses as of 04/04/2022) [facility] Problem Noted [...] of this encounter (statuses as of 04/06/2022) [facility]* Problem Noted [...] of this encounter (statuses as of 04/07/2022) [facility]* Problem Noted [...] of this encounter (statuses as of 04/08/2022) [facility] Problem Noted [...] of this encounter (statuses as of 04/10/2022) [facility] Problem Noted [...] of this encounter (statuses as of 04/11/2022) [facility] Problem Noted [...] of this encounter (statuses as of 04/12/2022) [facility] Problem Noted [...] of this encounter (statuses as of 04/18/2022) [facility] Problem Noted [...] of this encounter (statuses as of 05/15/2022) [facility] Problem Noted [...] of this encounter (statuses as of 05/23/2022) [facility] Problem Noted [...] of this encounter (statuses as of 05/23/2022) [facility] Problem Noted [...] of this encounter (statuses as of 05/24/2022) [facility] Problem Noted [...] of this encounter (statuses as of 05/26/2022) [facility] Problem Noted [...] of this encounter (statuses as of 06/02/2022) [facility] Problem Noted [...] of this encounter (statuses as of 06/02/2022) [facility] Problem Noted [...] of this encounter (statuses as of 06/09/2022) [facility] Problem Noted [...] of this encounter (statuses as of 06/12/2022) [facility] Problem Noted [...] of this encounter (statuses as of 06/12/2022) [facility] Problem Noted [...] of this encounter (statuses as of 06/21/2022) [facility] Problem Noted [...] of this encounter (statuses as of 06/27/2022) [facility] Problem Noted [...] of this encounter (statuses as of 07/05/2022) [facility] Problem Noted [...] of this encounter (statuses as of 07/10/2022) [facility] Problem Noted [...] of this encounter (statuses as of 07/12/2022) [facility] Problem Noted [...] of this encounter (statuses as of 07/27/2022) [facility] Problem Noted [...] of this encounter (statuses as of 08/01/2022) [facility] Problem Noted [...] of this encounter (statuses as of 08/06/2022) [facility] Problem Noted [...] of this encounter (statuses as of 08/08/2022) [facility] Problem Noted [...] of this encounter (statuses as of 08/30/2022) [facility] Problem Noted [...] of this encounter (statuses as of 09/16/2022) [facility] Problem Noted [...] of this encounter (statuses as of 09/27/2022) [facility]* Problem Noted [...] of this encounter (statuses as of 10/05/2022) [facility]* Diagnosis Chronic diastolic heart failure (HCC)- Primary Chronic diastolic heart failure Examination of participant in clinical trial [facility] Diagnosis Research study patient- Primary documented [facility] this encounter [facility]* Diagnosis 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) Other amyloidosis Chronic diastolic heart failure (HCC) Chronic diastolic heart failure Mixed hyperlipidemia Essential hypertension Unspecified essential hypertension Coronary artery disease due to calcified coronary lesion Patient in clinical research study- IRB#[id number] Cardio TTRansform Neuropathy Mononeuritis of unspecified site documented [facility] encounter [facility]* Diagnosis 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ein of right lower extremity (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 documented [facility]* Diagnosis Acquired hypothyroidism- Primary Unspecified hypothyroidism Statin intolerance Other drug allergy Essential hypertension Unspecified essential hypertension Mixed hyperlipidemia Insomnia, unspecified type [facility]* Diagnosis Patient in clinical research study- Primary documented [facility]* Diagnosis Acute pain of right shoulder [facility]* Diagnosis 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 [facility]* Diagnosis Research subject- Primary [facility] Diagnosis Mixed [facility]- [facility] Diagnosis 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 [facility] Diagnosis Cardiac amyloidosis (HCC)- Primary Other amyloidosis Examination of participant in clinical trial [facility] Diagnosis Essential hypertension- Primary Unspecified essential [...] in clinical trial [facility] Diagnosis Dysfibrinogenemia- Primary Congenital deficiency [...] Preoperative examination, unspecified [facility] Diagnosis Clinical trial participant- Primary Calculus of gallbladder with cholecystitis without biliary obstruction, unspecified cholecystitis acuity Pre-op examination Preoperative examination, unspecified [facility] Diagnosis 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 Calculus of gallbladder with cholecystitis without biliary obstruction, unspecified cholecystitis acuity Pre-op examination Preoperative examination, unspecified [facility] Diagnosis Acute abdomen- Primary Abdominal pain, unspecified site Right upper quadrant abdominal pain Abdominal pain, right upper quadrant Infection in abdomen (HCC) Unspecified peritonitis [facility]* Diagnosis Retention of urine- Primary Retention of urine, unspecified [facility]* Diagnosis S/P laparoscopic cholecystectomy- Primary Other postprocedural status Post-operative state Other postprocedural status 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 Long-term (current) use of anticoagulants [facility]* Diagnosis 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 [facility] Diagnosis 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 Coronary artery disease due to calcified coronary lesion Cholecystitis Cholecystitis, unspecified Research subject Hypercholesterolemia Pure hypercholesterolemia 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) Other amyloidosis Mixed hyperlipidemia Chronic diastolic heart failure (HCC) Chronic diastolic heart failure Essential hypertension Unspecified essential hypertension Neuropathy Mononeuritis of unspecified site [facility] Diagnosis Clinical trial participant- Primary [facility] Diagnosis 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) Other amyloidosis Cholecystitis Cholecystitis, unspecified Hypercholesterolemia Pure hypercholesterolemia Amyloidogenic transthyretin amyloidosis (HCC) Other amyloidosis Mixed hyperlipidemia Essential hypertension Unspecified essential hypertension Coronary artery disease due to calcified coronary lesion Neuropathy Mononeuritis of unspecified site Research subject [facility] Diagnosis Acute pain of right shoulder- Primary [facility] Diagnosis Contrast media allergy- Primary Allergy to radiographic dye [facility]* Diagnosis Examination of participant in clinical trial- Primary [facility] Diagnosis 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 [facility] Diagnosis 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ein of right lower extremity (HCC) documented in [facility] Diagnosis 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 [facility] Diagnosis Carpal tunnel syndrome, bilateral- Primary Carpal tunnel syndrome Neuropathy Mononeuritis of unspecified site documented [facility] Diagnosis Carpal tunnel syndrome, bilateral Carpal tunnel syndrome Neuropathy Mononeuritis of unspecified site [facility] Diagnosis Carpal tunnel syndrome, bilateral Carpal tunnel syndrome Neuropathy Mononeuritis of unspecified site [facility] Diagnosis Examination of participant in clinical trial- Primary [facility] Diagnosis Acquired hypothyroidism Unspecified hypothyroidism [facility] Diagnosis Neck pain- Primary Cervicalgia Muscle spasm Spasm of muscle Skin lesion Unspecified disorder of skin and subcutaneous tissue [facility] Diagnosis Cardiac amyloidosis (HCC)- Primary Other amyloidosis [facility] Diagnosis Pain and swelling of left lower leg- Primary 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 History of DVT of lower extremity Personal history of venous thrombosis and embolism History of pulmonary embolism Personal history of pulmonary embolism Chronic anticoagulation Long-term (current) use of anticoagulants Need for vaccination Need for prophylactic vaccination and inoculation against unspecified single disease documented [facility] Diagnosis Neuropathy- Primary 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) Other amyloidosis [facility] Diagnosis Elevated liver enzymes Other nonspecific abnormal serum enzyme levels [facility] Diagnosis Groin pain, right Ecchymosis Other specified circulatory system disorders [facility] Diagnosis Infection in abdomen (HCC) Unspecified peritonitis Acute abdomen Abdominal pain, unspecified site [facility] Diagnosis 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ein of right lower extremity (HCC) History of pulmonary embolism Personal history of pulmonary embolism documented in this encounter [facility] note* Diagnosis 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ein of right lower extremity (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 documented in this encounter [facility] note* Diagnosis Cardiac amyloidosis (HCC)- Primary Other amyloidosis documented in this encounter [facility] note* Diagnosis Examination of participant in clinical trial- Primary Chronic systolic heart failure (HCC) Chronic systolic heart failure documented in this encounter [facility] note* Diagnosis Hypercholesterolemia Pure hypercholesterolemia Acquired hypothyroidism Unspecified hypothyroidism documented in this encounter [facility] for referral (narrative)* Outpatient Procedure (Routine) - Authorized Specialty Diagnoses / Procedures Referred By Contac t Referred To Contact [facility] Diagnoses Chronic diastolic heart failure (HCC) Examination of participant in clinical trial Procedures ECHO ECHO TTHRC R-T 2D W/WOM-MODE COMPL SPEC&COLR D Rito Valera MD [id number] [place] [address] Referral ID Status Reason Start Date Expiration Date Visits Requested Visits Authorized [id number] Authorized Auto-Generat ed Referral 09/15/2021 06/30/2022 1 1 [facility] for referral (narrative)* Outpatient Procedure (Routine) - Authorized Specialty Diagnoses / Procedures Referred By Contac t Referred To Contact [facility] Diagnoses Other fatigue Palpitations Procedures ECG COMPLETE ECG ROUTINE ECG W/LEAST 12 LDS W/I&R Nuvia Grissom APRN.[employer] [address] [place] [address] [place] [address] Referral ID Status Reason Start Date Expiration Date Visits Requested Visits Authorized [id number] Authorized Auto-Generat ed Referral 2 01/18/2023 1 1 [facility] for referral (narrative)* Outpatient Procedure (Routine) - Pending Review Specialty Diagnoses / Procedures Referred By Contac t Referred To Contact [facility] Diagnoses Chronic diastolic heart failure (HCC) Examination of participant in clinical trial Procedures ECHO ECHO TTHRC R-T 2D W/WOM-MODE COMPL SPEC&COLR D Genia Ruby MD [address] [place] [address] [place] [address] Referral ID Status Reason Start Date Expiration Date Visits Requested Visits Authorized [id number] Pending Review Auto-Generat ed Referral 02/03/2022 02/02/2023 1 1 * Outpatient Procedure (Routine) - Pending Review Specialty Diagnoses / Procedures Referred By Temo amato Referred To Contact [facility] Diagnoses Chronic diastolic heart failure (HCC) Examination of participant in clinical trial Procedures ECG COMPLETE ECG ROUTINE ECG W/LEAST 12 LDS W/I&R Genia Ruby MD [address] [place] [address] [place] [address] Referral ID Status Reason Start Date Expiration Date Visits Requested Visits Authorized [id number] Pending Review Auto-Generat ed Referral 02/03/2022 02/02/2023 1 1 [facility] for referral (narrative)* Diagnostic Procedure Only (Routine) - Authorized Specialty Diagnoses / Procedures Referred By Temo amato Referred To Contact [facility] Diagnoses Groin pain, right Ecchymosis Procedures US PELVIS LTD US PELVIC NONOBSTETRIC IMAGE DCMTN LIMITED/F/U Eugenio Hernandez MD [facility] [place] [address] [facility] Referral ID Status Reason Start Date Expiration Date Visits Requested Visits Authorized [id number] Authorized Auto-Generat ed Referral 03/22/2023 1 1 [facility] for referral (narrative)* Outpatient Procedure (Routine) - Pending Review Specialty Diagnoses / Procedures [facility] Referred To Contact [facility] Diagnoses Wild-type transthyretin-related (ATTR) amyloidosis (HCC) Cholecystitis Research subject Hypercholesterolemia 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) Mixed hyperlipidemia Chronic diastolic heart failure (HCC) Essential hypertension Coronary artery disease due to calcified coronary lesion Neuropathy Procedures ECHO ECHO TTHRC R-T 2D W/WOM-MODE COMPL SPEC&COLR D Genia Ruby MD [id number] [place] [address] Referral ID Status Reason Start Date Expiration Date Visits Requested Visits Authorized [id number] Pending Review Auto-Generat ed Referral 05/22/2022 05/22/2023 1 1 [facility] for referral (narrative)* Outpatient Procedure (Urgent) - Closed Specialty Diagnoses / Procedures [facility] Referred To Contact [facility] Diagnoses Pain and swelling of left lower leg Procedures US LEG VEIN DVT UNL VAS LAB DUP-SCAN XTR VEINS UNILATERAL/LIMITED STUDY Eugenio Hernandez MD [address] [place] [address] [place] [address] Referral ID Status Reason Start Date Expiration Date V isits Requested Visits Authorized [id number] Closed Auto-Generate d Referral 12/05/2022 12/05/2023 1 1 [facility] for referral (narrative)* Diagnostic Procedure Only (Routine) - Closed Specialty Diagnoses / Procedures Referred By [facility] Referred To Contact [facility] Diagnoses Elevated liver enzymes Procedures US ABD RT UPPER QUADRANT US ABDOMINAL REAL TIME W/IMAGE LIMITED Nuvia Grissom APRN.CNP [address] [place] [address] [place] [address] Referral ID Status Reason Start Date Expiration Date V isits Requested Visits Authorized [id number] Closed Auto-Generate d Referral 01/20/2022 02/19/2023 1 1 [facility] for referral (narrative)* Diagnostic Procedure Only (Routine) - Closed Specialty Diagnoses / Procedures Referred By Contac t Referred To Contact [facility] Diagnoses Groin pain, right Ecchymosis Procedures US PELVIS LTD US PELVIC NONOBSTETRIC IMAGE DCMTN LIMITED/F/U Eugenio Hernandez MD [address] [place] [address] [place] [address] Referral ID Status Reason Start Date Expiration Date V isits Requested Visits Authorized [id number] Closed Auto-Generate d Referral 02/20/2022 03/22/2023 1 1 [facility] for referral (narrative)* Diagnostic Procedure Only (Routine) - Pending Review Specialty Diagnoses / Procedures [facility] Referred To Contact [facility] Diagnoses Cardiac amyloidosis (HCC) Procedures NM SPECT/CT CARDIAC AMYLOID RP LOCLZJ KAY SPECT W/CT 1 AREA 1 DAY IMAGING Evi Zamora MD [address] [place] [address] [facility] [address] [place] [address] Referral ID Status Reason Start Date Expiration Date Visits Requested Visits Authorized [id number] Pending Review Auto-Generat ed Referral 3 03/10/2024 1 1 [facility] for referral (narrative)* Outpatient Procedure (Routine) - Authorized Specialty Diagnoses / Procedures Referred By Contac t Referred [facility] Diagnoses Examination of participant in clinical trial Chronic systolic heart failure (HCC) Procedures ECG COMPLETE ECG ROUTINE ECG W/LEAST 12 LDS W/I&R Terrance Pritchard MD [address] [place] [place] [address] [facility] [address] [place] [address] Referral ID Status Reason Start Date Expiration Date Visits Requested Visits Authorized [id number] Authorized Auto-Generat ed Referral 3 03/13/[address] 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 Advance Directive(s) Advance Directive(s) 11/11/2019 1:39 PM Advance Directive(s) 04/30/2019 9:14 AM Advance Directive(s) 03/31/2019 12:07 PM Advance Directive(s) 06/10/2015 10:42 AM Advance Directive(s) 06/07/2015 12:46 PM Latest Code Status on File Code Status Date Activated Date Inactivated Comments Full Code 04/06/2023 5:23 AM 04/20/2023 9:34 PM Question Answer Comments Full Code Order Discussed With: Patient Reason for Referral Specialty Diagnoses / Procedures Referred By Temo amato Referred To Contact Neurology Diagnoses 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) Chronic diastolic heart failure (HCC) Mixed hyperlipidemia Essential hypertension Procedures CONSULT TO NEUROLOGY OFFICE/OUTPATIENT NEW HIGH MDM 60-74 MINUTES Genia Ruby MD [address] [place] [address] Referral ID Status Reason Start Date Expiration Date Visits Requested Visits Authorized [id number] Authorized PCP Requested Referral 06/22/2021 06/22/2022 1 1 Specialty Diagnoses / Procedures Referred By Contac t Referred To Contact General Surgery Diagnoses Calculus of gallbladder without cholecystitis without obstruction Elevated liver enzymes Procedures CONSULT TO GENERAL SURGERY OFFICE/OUTPATIENT [facility] 60-74 MINUTES Brayan Ahn MD [address] [place] [address] Franklin Gaona MD [address] [place] [address] Referral ID Status Reason Start Date Expiration Date Visits Requested Visits Authorized [id number] Authorized PCP Requested Referral 01/31/2022 01/31/2023 1 1 Specialty Diagnoses / Procedures Referred By Contac t Referred To Contact General Surgery Diagnoses Calculus of gallbladder without cholecystitis without obstruction Elevated liver enzymes Procedures CONSULT TO GENERAL SURGERY OFFICE/OUTPATIENT [facility] 60-74 MINUTES Nuvia Grissom APRN.[employer] [address] [place] [address] Referral ID Status Reason Start Date Expiration Date V isits Requested Visits Authorized [id number] Closed PCP Requested Referral 01/30/2022 01/30/2023 1 1 Specialty Diagnoses / Procedures Referred By Contac t Referred To Contact Vascular Medicine Diagnoses History of pulmonary embolism Procedures CONSULT TO VASCULAR MEDICINE OFFICE/OUTPATIENT [facility] 60-74 MINUTES Omer Narvaez DO [address] [place] [address] Referral ID Status Reason Start Date Expiration Date Visits Requested Visits Authorized [id number] Authorized PCP Requested Referral 02/06/2022 02/06/2023 1 1 Specialty Diagnoses / Procedures Referred By Contac t Referred To Contact Diagnoses Cholelithiasis with choledocholithiasis Pre-op examination Procedures IN PERSON CONSULT TO PACC Aneesh Kaplan MD [address] [place] [address] Referral ID Status Reason Start Date Expiration Date Visits Requested Visits Authorized [id number] Ref Not Required PCP Requested Referral 05/22/2022 1 1 Specialty Diagnoses / Procedures Referred By Contac t Referred To Contact CT IMAGING Diagnoses Infection in abdomen (HCC) Procedures CT ABD/PEL W IVCON CT ABD & PELVIS W/CONTRAST PlescMario joshi PA-C [address] [place] [address] Ct Imaging Referral ID Status Reason Start Date Expiration Date V isits Requested Visits Authorized [id number] Closed Auto-Generate d Referral 04/07/2022 05/07/2023 1 1 Specialty Diagnoses / Procedures Referred By Contac t Referred To Contact CT IMAGING Diagnoses Acute abdomen Procedures CT ABD/PEL WO IVCON CT ABD & PELVIS W/O CONTRAST PlescMario joshi PA-C [address] [place] [place] [address] Ct Imaging Referral ID Status Reason Start Date Expiration Date V isits Requested Visits Authorized [id number] Closed Auto-Generate d Referral 04/07/2022 05/07/2023 1 1 Specialty Diagnoses / Procedures Referred By Contac t Referred To Contact Diagnoses Post-phlebitic syndrome [place] [address] Referral ID Status Reason Start Date Expiration Date Visits Re quested Visits Authorized [id number] Closed 1 1 Specialty Diagnoses / Procedures Referred By Contac t Referred To Contact Diagnoses Skin lesion Procedures CONSULT TO DERMATOLOGY Nuvia Grissom APRN.[facility] [address] [place] [address] Referral ID Status Reason Start Date Expiration Date V isits Requested Visits Authorized [id number] Closed PCP Requested Referral 11/22/2022 11/22/2023 1 1 Specialty Diagnoses / Procedures Referred By Contac t Referred To Contact Procedures CARDIOVASCULAR MEDICINE OP FOLLOW UP APPT ORDER Shira Martinez MD [address] [place] [address] Referral ID Status Reason Start Date Expiration Date Visits Requested Visits Authorized [id number] Ref Not Required PCP Requested Referral 01/29/2024 1 1 Specialty Diagnoses / Procedures Referred By Contac t Referred To Contact Neurology Diagnoses Neuropathy Procedures CONSULT TO NEUROLOGY OFFICE/OUTPATIENT [facility] 60-74 MINUTES Shira Martinez MD [address] [place] [address] Gold Serra MD [address] [place] [address] Referral ID Status Reason Start Date Expiration Date Visits Requested Visits Authorized [id number] Authorized PCP Requested Referral 3 01/29/2024 1 1 Specialty Diagnoses / Procedures Referred By Contac t Referred To Contact CT IMAGING Diagnoses Acute abdomen Procedures CT ABD/PEL WO IVCON CT ABD & PELVIS W/O CONTRAST Mario Fermin PA-C [address] [place] [address] Ct Imaging [address] [address] Health Concerns Infection Onset Date Last Indicated Resolved Time COVID-19 Rule-Out 03/29/2022 03/29/2022 03/29/2022 5:11 PM EST Additional Source Comments INFORMATION SOURCE (unrecogn ized section and content) DATE CREATED AUTHOR AUTHOR'S ORGANIZ ATION 05/12/2023 [facility] Source Comments (unrecognize d section and content) In the event this informatio n is protected by the Federal Confidentiality of Alcohol and Drug Abuse Patient Records regulations: The Federal rules restrict any use of the information to criminally investigate or prosecute any alcohol or drug abuse patient.[facility] the event this information is protected by the Federal Confidentiality of Alcohol and Drug Abuse Patient Records regulations: The Federal rules restrict any use of the information to criminally investigate or prosecute any alcohol or drug abuse patient.[facility] the event this information is protected by the Federal Confidentiality of Alcohol and Drug Abuse Patient Records regulations: The Federal rules restrict any use of the information to criminally investigate or prosecute any alcohol or drug abuse patient.[facility] the event this information is protected by the Federal Confidentiality of Alcohol and Drug Abuse Patient Records regulations: The Federal rules restrict any use of the information to criminally investigate or prosecute any alcohol or drug abuse patient.[facility] the event this information is protected by the Federal Confidentiality of Alcohol and Drug Abuse Patient Records regulations: The Federal rules restrict any use of the information to criminally investigate or prosecute any alcohol or drug abuse patient.[facility] the event this information is protected by the Federal Confidentiality of Alcohol and Drug Abuse Patient Records regulations: The Federal rules restrict any use of the information to criminally investigate or prosecute any alcohol or drug abuse patient.[facility] the event this information is protected by the Federal Confidentiality of Alcohol and Drug Abuse Patient Records regulations: The Federal rules restrict any use of the information to criminally investigate or prosecute any alcohol or drug abuse patient.[facility] the event this information is protected by the Federal Confidentiality of Alcohol and Drug Abuse Patient Records regulations: The Federal rules restrict any use of the information to criminally investigate or prosecute any alcohol or drug abuse patient.[facility] the event this information is protected by the Federal Confidentiality of Alcohol and Drug Abuse Patient Records regulations: The Federal rules restrict any use of the information to criminally investigate or prosecute any alcohol or drug abuse patient.[facility] the event this information is protected by the Federal Confidentiality of Alcohol and Drug Abuse Patient Records regulations: The Federal rules restrict any use of the information to criminally investigate or prosecute any alcohol or drug abuse patient.[facility] the event this information is protected by the Federal Confidentiality of Alcohol and Drug Abuse Patient Records regulations: The Federal rules restrict any use of the information to criminally investigate or prosecute any alcohol or drug abuse patient.[facility] the event this information is protected by the Federal Confidentiality of Alcohol and Drug Abuse Patient Records regulations: The Federal rules restrict any use of the information to criminally investigate or prosecute any alcohol or drug abuse patient.[facility] the event this information is protected by the Federal Confidentiality of Alcohol and Drug Abuse Patient Records regulations: The Federal rules restrict any use of the information to criminally investigate or prosecute any alcohol or drug abuse patient.[facility] the event this information is protected by the Federal Confidentiality of Alcohol and Drug Abuse Patient Records regulations: The Federal rules restrict any use of the information to criminally investigate or prosecute any alcohol or drug abuse patient.[facility] the event this information is protected by the Federal Confidentiality of Alcohol and Drug Abuse Patient Records regulations: The Federal rules restrict any use of the information to criminally investigate or prosecute any alcohol or drug abuse patient.[facility] the event this information is protected by the Federal Confidentiality of Alcohol and Drug Abuse Patient Records regulations: The Federal rules restrict any use of the information to criminally investigate or prosecute any alcohol or drug abuse patient.[facility] Center[facility] the event this information is protected by the Federal Confidentiality of Alcohol and Drug Abuse Patient Records regulations: The Federal rules restrict any use of the information to criminally investigate or prosecute any alcohol or drug abuse patient.[facility] the event this information is protected by the Federal Confidentiality of Alcohol and Drug Abuse Patient Records regulations: The Federal rules restrict any use of the information to criminally investigate or prosecute any alcohol or drug abuse patient.[facility] Center[facility] the event this information is protected by the Federal Confidentiality of Alcohol and Drug Abuse Patient Records regulations: The Federal rules restrict any use of the information to criminally investigate or prosecute any alcohol or drug abuse patient.[facility] Center[facility] the event this information is protected by the Federal Confidentiality of Alcohol and Drug Abuse Patient Records regulations: The Federal rules restrict any use of the information to criminally investigate or prosecute any alcohol or drug abuse patient.[facility] the event this information is protected by the Federal Confidentiality of Alcohol and Drug Abuse Patient Records regulations: The Federal rules restrict any use of the information to criminally investigate or prosecute any alcohol or drug abuse patient.[facility] the event this information is protected by the Federal Confidentiality of Alcohol and Drug Abuse Patient Records regulations: The Federal rules restrict any use of the information to criminally investigate or prosecute any alcohol or drug abuse patient.[facility] the event this information is protected by the Federal Confidentiality of Alcohol and Drug Abuse Patient Records regulations: The Federal rules restrict any use of the information to criminally investigate or prosecute any alcohol or drug abuse patient.[facility] the event this information is protected by the Federal Confidentiality of Alcohol and Drug Abuse Patient Records regulations: The Federal rules restrict any use of the information to criminally investigate or prosecute any alcohol or drug abuse patient.[facility] the event this information is protected by the Federal Confidentiality of Alcohol and Drug Abuse Patient Records regulations: The Federal rules restrict any use of the information to criminally investigate or prosecute any alcohol or drug abuse patient.[facility]In the event this information is protected by the Federal Confidentiality of Alcohol and Drug Abuse Patient Records regulations: The Federal rules restrict any use of the information to criminally investigate or prosecute any alcohol or drug abuse patient.[facility] Center[facility] the event this information is protected by the Federal Confidentiality of Alcohol and Drug Abuse Patient Records regulations: The Federal rules restrict any use of the information to criminally investigate or prosecute any alcohol or drug abuse patient.[facility] CenterIn the event this information is protected by the Federal Confidentiality of Alcohol and Drug Abuse Patient Records regulations: The Federal rules restrict any use of the information to criminally investigate or prosecute any alcohol or drug abuse patient.[facility] CenterIn the event this information is protected by the Federal Confidentiality of Alcohol and Drug Abuse Patient Records regulations: The Federal rules restrict any use of the information to criminally investigate or prosecute any alcohol or drug abuse patient.[facility] CenterIn the event this information is protected by the Federal Confidentiality of Alcohol and Drug Abuse Patient Records regulations: The Federal rules restrict any use of the information to criminally investigate or prosecute any alcohol or drug abuse patient.[facility] CenterIn the event this information is protected by the Federal Confidentiality of Alcohol and Drug Abuse Patient Records regulations: The Federal rules restrict any use of the information to criminally investigate or prosecute any alcohol or drug abuse patient.[facility] CenterIn the event this information is protected by the Federal Confidentiality of Alcohol and Drug Abuse Patient Records regulations: The Federal rules restrict any use of the information to criminally investigate or prosecute any alcohol or drug abuse patient.[facility] CenterIn the event this information is protected by the Federal Confidentiality of Alcohol and Drug Abuse Patient Records regulations: The Federal rules restrict any use of the information to criminally investigate or prosecute any alcohol or drug abuse patient.[facility] CenterIn the event this information is protected by the Federal Confidentiality of Alcohol and Drug Abuse Patient Records regulations: The Federal rules restrict any use of the information to criminally investigate or prosecute any alcohol or drug abuse patient.[facility] CenterIn the event this information is protected by the Federal Confidentiality of Alcohol and Drug Abuse Patient Records regulations: The Federal rules restrict any use of the information to criminally investigate or prosecute any alcohol or drug abuse patient.[facility] CenterIn the event this information is protected by the Federal Confidentiality of Alcohol and Drug Abuse Patient Records regulations: The Federal rules restrict any use of the information to criminally investigate or prosecute any alcohol or drug abuse patient.[facility] CenterIn the event this information is protected by the Federal Confidentiality of Alcohol and Drug Abuse Patient Records regulations: The Federal rules restrict any use of the information to criminally investigate or prosecute any alcohol or drug abuse patient.[facility] CenterIn the event this information is protected by the Federal Confidentiality of Alcohol and Drug Abuse Patient Records regulations: The Federal rules restrict any use of the information to criminally investigate or prosecute any alcohol or drug abuse patient.[facility] CenterIn the event this information is protected by the Federal Confidentiality of Alcohol and Drug Abuse Patient Records regulations: The Federal rules restrict any use of the information to criminally investigate or prosecute any alcohol or drug abuse patient.[facility] CenterIn the event this information is protected by the Federal Confidentiality of Alcohol and Drug Abuse Patient Records regulations: The Federal rules restrict any use of the information to criminally investigate or prosecute any alcohol or drug abuse patient.[facility] CenterIn the event this information is protected by the Federal Confidentiality of Alcohol and Drug Abuse Patient Records regulations: The Federal rules restrict any use of the information to criminally investigate or prosecute any alcohol or drug abuse patient.[facility] CenterIn the event this information is protected by the Federal Confidentiality of Alcohol and Drug Abuse Patient Records regulations: The Federal rules restrict any use of the information to criminally investigate or prosecute any alcohol or drug abuse patient.[facility] CenterIn the event this information is protected by the Federal Confidentiality of Alcohol and Drug Abuse Patient Records regulations: The Federal rules restrict any use of the information to criminally investigate or prosecute any alcohol or drug abuse patient.[facility] CenterIn the event this information is protected by the Federal Confidentiality of Alcohol and Drug Abuse Patient Records regulations: The Federal rules restrict any use of the information to criminally investigate or prosecute any alcohol or drug abuse patient.[facility] CenterIn the event this information is protected by the Federal Confidentiality of Alcohol and Drug Abuse Patient Records regulations: The Federal rules restrict any use of the information to criminally investigate or prosecute any alcohol or drug abuse patient.[facility] CenterIn the event this information is protected by the Federal Confidentiality of Alcohol and Drug Abuse Patient Records regulations: The Federal rules restrict any use of the information to criminally investigate or prosecute any alcohol or drug abuse patient.[facility] CenterIn the event this information is protected by the Federal Confidentiality of Alcohol and Drug Abuse Patient Records regulations: The Federal rules restrict any use of the information to criminally investigate or prosecute any alcohol or drug abuse patient.[facility] CenterIn the event this information is protected by the Federal Confidentiality of Alcohol and Drug Abuse Patient Records regulations: The Federal rules restrict any use of the information to criminally investigate or prosecute any alcohol or drug abuse patient.[facility] CenterIn the event this information is protected by the Federal Confidentiality of Alcohol and Drug Abuse Patient Records regulations: The Federal rules restrict any use of the information to criminally investigate or prosecute any alcohol or drug abuse patient.[facility] CenterIn the event this information is protected by the Federal Confidentiality of Alcohol and Drug Abuse Patient Records regulations: The Federal rules restrict any use of the information to criminally investigate or prosecute any alcohol or drug abuse patient.[facility] CenterIn the event this information is protected by the Federal Confidentiality of Alcohol and Drug Abuse Patient Records regulations: The Federal rules restrict any use of the information to criminally investigate or prosecute any alcohol or drug abuse patient.[facility] CenterIn the event this information is protected by the Federal Confidentiality of Alcohol and Drug Abuse Patient Records regulations: The Federal rules restrict any use of the information to criminally investigate or prosecute any alcohol or drug abuse patient.[facility] CenterIn the event this information is protected by the Federal Confidentiality of Alcohol and Drug Abuse Patient Records regulations: The Federal rules restrict any use of the information to criminally investigate or prosecute any alcohol or drug abuse patient.[facility] CenterIn the event this information is protected by the Federal Confidentiality of Alcohol and Drug Abuse Patient Records regulations: The Federal rules restrict any use of the information to criminally investigate or prosecute any alcohol or drug abuse patient.[facility] CenterIn the event this information is protected by the Federal Confidentiality of Alcohol and Drug Abuse Patient Records regulations: The Federal rules restrict any use of the information to criminally investigate or prosecute any alcohol or drug abuse patient.[facility]In the event this information is protected by the Federal Confidentiality of Alcohol and Drug Abuse Patient Records regulations: The Federal rules restrict any use of the information to criminally investigate or prosecute any alcohol or drug abuse patient.[facility] CenterIn the event this information is protected by the Federal Confidentiality of Alcohol and Drug Abuse Patient Records regulations: The Federal rules restrict any use of the information to criminally investigate or prosecute any alcohol or drug abuse patient.[facility] CenterIn the event this information is protected by the Federal Confidentiality of Alcohol and Drug Abuse Patient Records regulations: The Federal rules restrict any use of the information to criminally investigate or prosecute any alcohol or drug abuse patient.[facility]In the event this information is protected by the Federal Confidentiality of Alcohol and Drug Abuse Patient Records regulations: The Federal rules restrict any use of the information to criminally investigate or prosecute any alcohol or drug abuse patient.[facility]In the event this information is protected by the Federal Confidentiality of Alcohol and Drug Abuse Patient Records regulations: The Federal rules restrict any use of the information to criminally investigate or prosecute any alcohol or drug abuse patient.[facility]In the event this information is protected by the Federal Confidentiality of Alcohol and Drug Abuse Patient Records regulations: The Federal rules restrict any use of the information to criminally investigate or prosecute any alcohol or drug abuse patient.[facility]In the event this information is protected by the Federal Confidentiality of Alcohol and Drug Abuse Patient Records regulations: The Federal rules restrict any use of the information to criminally investigate or prosecute any alcohol or drug abuse patient.[facility]In the event this information is protected by the Federal Confidentiality of Alcohol and Drug Abuse Patient Records regulations: The Federal rules restrict any use of the information to criminally investigate or prosecute any alcohol or drug abuse patient.[facility]In the event this information is protected by the Federal Confidentiality of Alcohol and Drug Abuse Patient Records regulations: The Federal rules restrict any use of the information to criminally investigate or prosecute any alcohol or drug abuse patient.[facility] the event this information is protected by the Federal Confidentiality of Alcohol and Drug Abuse Patient Records regulations: The Federal rules restrict any use of the information to criminally investigate or prosecute any alcohol or drug abuse patient.[facility]In the event this information is protected by the Federal Confidentiality of Alcohol and Drug Abuse Patient Records regulations: The Federal rules restrict any use of the information to criminally investigate or prosecute any alcohol or drug abuse patient.[facility]In the event this information is protected by the Federal Confidentiality of Alcohol and Drug Abuse Patient Records regulations: The Federal rules restrict any use of the information to criminally investigate or prosecute any alcohol or drug abuse patient.[facility]In the event this information is protected by the Federal Confidentiality of Alcohol and Drug Abuse Patient Records regulations: The Federal rules restrict any use of the information to criminally investigate or prosecute any alcohol or drug abuse patient.[facility]In the event this information is protected by the Federal Confidentiality of Alcohol and Drug Abuse Patient Records regulations: The Federal rules restrict any use of the information to criminally investigate or prosecute any alcohol or drug abuse patient.[facility]In the event this information is protected by the Federal Confidentiality of Alcohol and Drug Abuse Patient Records regulations: The Federal rules restrict any use of the information to criminally investigate or prosecute any alcohol or drug abuse patient.[facility]In the event this information is protected by the Federal Confidentiality of Alcohol and Drug Abuse Patient Records regulations: The Federal rules restrict any use of the information to criminally investigate or prosecute any alcohol or drug abuse patient.[facility]In the event this information is protected by the Federal Confidentiality of Alcohol and Drug Abuse Patient Records regulations: The Federal rules restrict any use of the information to criminally investigate or prosecute any alcohol or drug abuse patient.[facility]In the event this information is protected by the Federal Confidentiality of Alcohol and Drug Abuse Patient Records regulations: The Federal rules restrict any use of the information to criminally investigate or prosecute any alcohol or drug abuse patient.[facility]In the event this information is protected by the Federal Confidentiality of Alcohol and Drug Abuse Patient Records regulations: The Federal rules restrict any use of the information to criminally investigate or prosecute any alcohol or drug abuse patient.[facility]In the event this information is protected by the Federal Confidentiality of Alcohol and Drug Abuse Patient Records regulations: The Federal rules restrict any use of the information to criminally investigate or prosecute any alcohol or drug abuse patient.[facility]In the event this information is protected by the Federal Confidentiality of Alcohol and Drug Abuse Patient Records regulations: The Federal rules restrict any use of the information to criminally investigate or prosecute any alcohol or drug abuse patient.[facility]In the event this information is protected by the Federal Confidentiality of Alcohol and Drug Abuse Patient Records regulations: The Federal rules restrict any use of the information to criminally investigate or prosecute any alcohol or drug abuse patient.[facility]In the event this information is protected by the Federal Confidentiality of Alcohol and Drug Abuse Patient Records regulations: The Federal rules restrict any use of the information to criminally investigate or prosecute any alcohol or drug abuse patient.[facility]In the event this information is protected by the Federal Confidentiality of Alcohol and Drug Abuse Patient Records regulations: The Federal rules restrict any use of the information to criminally investigate or prosecute any alcohol or drug abuse patient.[facility]In the event this information is protected by the Federal Confidentiality of Alcohol and Drug Abuse Patient Records regulations: The Federal rules restrict any use of the information to criminally investigate or prosecute any alcohol or drug abuse patient.[facility]In the event this information is protected by the Federal Confidentiality of Alcohol and Drug Abuse Patient Records regulations: The Federal rules restrict any use of the information to criminally investigate or prosecute any alcohol or drug abuse patient.[facility]In the event this information is protected by the Federal Confidentiality of Alcohol and Drug Abuse Patient Records regulations: The Federal rules restrict any use of the information to criminally investigate or prosecute any alcohol or drug abuse patient.[facility]In the event this information is protected by the Federal Confidentiality of Alcohol and Drug Abuse Patient Records regulations: The Federal rules restrict any use of the information to criminally investigate or prosecute any alcohol or drug abuse patient.[facility]In the event this information is protected by the Federal Confidentiality of Alcohol and Drug Abuse Patient Records regulations: The Federal rules restrict any use of the information to criminally investigate or prosecute any alcohol or drug abuse patient.[facility]In the event this information is protected by the Federal Confidentiality of Alcohol and Drug Abuse Patient Records regulations: The Federal rules restrict any use of the information to criminally investigate or prosecute any alcohol or drug abuse patient.[facility]In the event this information is protected by the Federal Confidentiality of Alcohol and Drug Abuse Patient Records regulations: The Federal rules restrict any use of the information to criminally investigate or prosecute any alcohol or drug abuse patient.[facility]In the event this information is protected by the Federal Confidentiality of Alcohol and Drug Abuse Patient Records regulations: The Federal rules restrict any use of the information to criminally investigate or prosecute any alcohol or drug abuse patient.[facility]In the event this information is protected by the Federal Confidentiality of Alcohol and Drug Abuse Patient Records regulations: The Federal rules restrict any use of the information to criminally investigate or prosecute any alcohol or drug abuse patient.[facility]In the event this information is protected by the Federal Confidentiality of Alcohol and Drug Abuse Patient Records regulations: The Federal rules restrict any use of the information to criminally investigate or prosecute any alcohol or drug abuse patient.[facility]In the event this information is protected by the Federal Confidentiality of Alcohol and Drug Abuse Patient Records regulations: The Federal rules restrict any use of the information to criminally investigate or prosecute any alcohol or drug abuse patient.[facility]In the event this information is protected by the Federal Confidentiality of Alcohol and Drug Abuse Patient Records regulations: The Federal rules restrict any use of the information to criminally investigate or prosecute any alcohol or drug abuse patient.[facility]In the event this information is protected by the Federal Confidentiality of Alcohol and Drug Abuse Patient Records regulations: The Federal rules restrict any use of the information to criminally investigate or prosecute any alcohol or drug abuse patient.[facility]In the event this information is protected by the Federal Confidentiality of Alcohol and Drug Abuse Patient Records regulations: The Federal rules restrict any use of the information to criminally investigate or prosecute any alcohol or drug abuse patient.[facility]In the event this information is protected by the Federal Confidentiality of Alcohol and Drug Abuse Patient Records regulations: The Federal rules restrict any use of the information to criminally investigate or prosecute any alcohol or drug abuse patient.[facility]In the event this information is protected by the Federal Confidentiality of Alcohol and Drug Abuse Patient Records regulations: The Federal rules restrict any use of the information to criminally investigate or prosecute any alcohol or drug abuse patient.[facility]In the event this information is protected by the Federal Confidentiality of Alcohol and Drug Abuse Patient Records regulations: The Federal rules restrict any use of the information to criminally investigate or prosecute any alcohol or drug abuse patient.[facility]In the event this information is protected by the Federal Confidentiality of Alcohol and Drug Abuse Patient Records regulations: The Federal rules restrict any use of the information to criminally investigate or prosecute any alcohol or drug abuse patient.[facility]In the event this information is protected by the Federal Confidentiality of Alcohol and Drug Abuse Patient Records regulations: The Federal rules restrict any use of the information to criminally investigate or prosecute any alcohol or drug abuse patient.[facility]In the event this information is protected by the Federal Confidentiality of Alcohol and Drug Abuse Patient Records regulations: The Federal rules restrict any use of the information to criminally investigate or prosecute any alcohol or drug abuse patient.[facility]In the event this information is protected by the Federal Confidentiality of Alcohol and Drug Abuse Patient Records regulations: The Federal rules restrict any use of the information to criminally investigate or prosecute any alcohol or drug abuse patient.[facility]In the event this information is protected by the Federal Confidentiality of Alcohol and Drug Abuse Patient Records regulations: The Federal rules restrict any use of the information to criminally investigate or prosecute any alcohol or drug abuse patient.[facility]In the event this information is protected by the Federal Confidentiality of Alcohol and Drug Abuse Patient Records regulations: The Federal rules restrict any use of the information to criminally investigate or prosecute any alcohol or drug abuse patient.[facility]In the event this information is protected by the Federal Confidentiality of Alcohol and Drug Abuse Patient Records regulations: The Federal rules restrict any use of the information to criminally investigate or prosecute any alcohol or drug abuse patient.[facility]In the event this information is protected by the Federal Confidentiality of Alcohol and Drug Abuse Patient Records regulations: The Federal rules restrict any use of the information to criminally investigate or prosecute any alcohol or drug abuse patient.[facility]In the event this information is protected by the Federal Confidentiality of Alcohol and Drug Abuse Patient Records regulations: The Federal rules restrict any use of the information to criminally investigate or prosecute any alcohol or drug abuse patient.[facility]In the event this information is protected by the Federal Confidentiality of Alcohol and Drug Abuse Patient Records regulations: The Federal rules restrict any use of the information to criminally investigate or prosecute any alcohol or drug abuse patient.[facility]In the event this information is protected by the Federal Confidentiality of Alcohol and Drug Abuse Patient Records regulations: The Federal rules restrict any use of the information to criminally investigate or prosecute any alcohol or drug abuse patient.[facility]In the event this information is protected by the Federal Confidentiality of Alcohol and Drug Abuse Patient Records regulations: The Federal rules restrict any use of the information to criminally investigate or prosecute any alcohol or drug abuse patient.[facility]In the event this information is protected by the Federal Confidentiality of Alcohol and Drug Abuse Patient Records regulations: The Federal rules restrict any use of the information to criminally investigate or prosecute any alcohol or drug abuse patient.[facility]In the event this information is protected by the Federal Confidentiality of Alcohol and Drug Abuse Patient Records regulations: The Federal rules restrict any use of the information to criminally investigate or prosecute any alcohol or drug abuse patient.[facility]In the event this information is protected by the Federal Confidentiality of Alcohol and Drug Abuse Patient Records regulations: The Federal rules restrict any use of the information to criminally investigate or prosecute any alcohol or drug abuse patient.[facility]In the event this information is protected by the Federal Confidentiality of Alcohol and Drug Abuse Patient Records regulations: The Federal rules restrict any use of the information to criminally investigate or prosecute any alcohol or drug abuse patient.[facility]In the event this information is protected by the Federal Confidentiality of Alcohol and Drug Abuse Patient Records regulations: The Federal rules restrict any use of the information to criminally investigate or prosecute any alcohol or drug abuse patient.[facility] CenterIn the event this information is protected by the Federal Confidentiality of Alcohol and Drug Abuse Patient Records regulations: The Federal rules restrict any use of the information to criminally investigate or prosecute any alcohol or drug abuse patient.[facility] the event this information is protected by the Federal Confidentiality of Alcohol and Drug Abuse Patient Records regulations: The Federal rules restrict any use of the information to criminally investigate or prosecute any alcohol or drug abuse patient.[facility] CenterIn the event this information is protected by the Federal Confidentiality of Alcohol and Drug Abuse Patient Records regulations: The Federal rules restrict any use of the information to criminally investigate or prosecute any alcohol or drug abuse patient.[facility] CenterIn the event this information is protected by the Federal Confidentiality of Alcohol and Drug Abuse Patient Records regulations: The Federal rules restrict any use of the information to criminally investigate or prosecute any alcohol or drug abuse patient.[facility] the event this information is protected by the Federal Confidentiality of Alcohol and Drug Abuse Patient Records regulations: The Federal rules restrict any use of the information to criminally investigate or prosecute any alcohol or drug abuse patient.[facility] Reason for Visit (unrecogniz ed section and content) Specialty Diagnoses / Procedures Referred By Contac t Referred To Contact CT IMAGING Diagnoses Infection in abdomen (HCC) Procedures CT ABD/PEL W IVCON CT ABD & PELVIS W/CONTRAST Zander, SARA Martin [address] [place] [address] Ct Imaging [facility]95 Referral ID Status Reason Start Date Expiration Date V isits Requested Visits Authorized [id number] Closed Auto-Generate d Referral 04/07/2022 05/07/2023 1 [...] enzymes Procedures CONSULT TO GENERAL SURGERY OFFICE/OUTPATIENT [facility] MDM 60-74 MINUTES Nuvia Grissom APRN.[employer] [address] [place] [address] Referral ID Status Reason Start Date Expiration Date V isi Requested Visits Authorized [id number] Closed PCP Requested Referral 01/30/2022 01/30/2023 1 [...] Onset Date Comments Transition Of Care [facility]/04[facility]2022 [facility], [facility], INITIAL OUTREACH Reason Comments [...] ABDOMINAL REAL TIME W/IMAGE LIMITED Nuvia Grissom APRN.[employer] [address] [place] [address] [place] [address] Referral ID Status Reason Start Date Expiration Date V isits Requested Visits Authorized [id number] Closed Auto-Generate d Referral 01/20/2022 02/19/2023 1 1 Specialty Diagnoses / Procedures Referred By Contac t Referred To Contact US IMAGING Diagnoses Groin pain, right Ecchymosis Procedures US PELVIS LTD US PELVIC NONOBSTETRIC IMAGE DCMTN LIMITED/F/U Eugenio Hernandez MD [address] [place] [address] Us Imaging [facility]95 Referral ID Status Reason Start Date Expiration Date V isits Requested Visits Authorized [id number] Closed Auto-Generate d Referral 02/20/2022 03/22/2023 1 1 Reason Comments patient outreach V[employer] Reason Comments Rx Refills Reason Onset Date Comments Community Monitoring Outreach 05/08/2023 Reason Comments Home Health Orders Care Teams (unrecognized sec tion and content) Driver Trainer Relationship Specialty Start Date End Date Gab Pisano MD [address] [place], [place] [id number] PCP - General Internal Medicine 10/26/15 Brayan Pringle MD Referring Cardiology 10/28/19 Fredrick Walker, optical design engineerContract Technician Internal Medicine 05/25/20 Jose eLal MD [address] [place] [address] Primary Staff Physician Cardiology 09/14/20 Driver Trainer Relationship Specialty Start Date End Date Gab Pisano MD [address] [place] [address] PCP - General Internal Medicine 10/26/15 Brayan Pringle MD Referring Cardiology 10/28/19 Fredrick Walker, optical design engineerContract Technician Internal Medicine 05/25/20 Jose Leal MD [address] [place] [address] Primary Staff Physician Cardiology 09/14/20 Driver Trainer Relationship Specialty Start Date End Date Gab Pisano MD [address] [place] [address] PCP - General Internal Medicine 10/26/15 Brayan Pringle MD Referring Cardiology 10/28/19 Fredrick Walker, optical design engineerContract Technician Internal Medicine 05/25/20 Jose Leal MD [address] [place] [address] Primary Staff Physician Cardiology 09/14/20 Driver Trainer Relationship Specialty Start Date End Date Gab Pisano MD [address] [facility] [place] [address] PCP - General Internal Medicine 10/26/15 Brayan Pringle MD Referring Cardiology 10/28/19 Fredrick Walker, optical design engineerContract Technician Internal Medicine 05/25/20 Jose Leal MD [address] [place] [address] Primary Staff Physician Cardiology 09/14/20 Driver Trainer Relationship Specialty Start Date End Date Gab Pisano MD [address] [place] [address] PCP - General Internal Medicine 10/26/15 Brayan Pringle MD Referring Cardiology 10/28/19 Fredrick Walker, optical design engineerContract Technician Internal Medicine 05/25/20 Jose Leal MD [address] [place] [address] Primary Staff Physician Cardiology 09/14/20 Driver Trainer Relationship Specialty Start Date End Date Gab Pisano MD [address] [place] [address] PCP - General Internal Medicine 10/26/15 Brayan Pringle MD Referring Cardiology 10/28/19 Fredrick Walker, optical design engineerContract Technician Internal Medicine 05/25/20 Jose Leal MD [address] [place] [address] Primary Staff Physician Cardiology 09/14/20 Driver Trainer Relationship Specialty Start Date End Date Gab Pisano MD [address] [place] [address] PCP - General Internal Medicine 10/26/15 Brayan Pringle MD Referring Cardiology 10/28/19 Fredrick Walker, optical design engineerContract Technician Internal Medicine 05/25/20 Jose Leal MD [address] [place] [address] Primary Staff Physician Cardiology 09/14/20 Driver Trainer Relationship Specialty Start Date End Date Gab Pisano MD [address] [place] [address] PCP - General Internal Medicine 10/26/15 Brayan Pringle MD Referring Cardiology 10/28/19 Fredrick Walker, optical design engineerContract Technician Internal Medicine 05/25/20 Jose Leal MD [address] [place] [address] Primary Staff Physician Cardiology 09/14/20 Driver Trainer Relationship Specialty Start Date End Date Gab Pisano MD [address] [place] [address] PCP - General Internal Medicine 10/26/15 Brayan Pringle MD Referring Cardiology 10/28/19 Fredrick Walker RN Contract Technician Internal Medicine 05/25/20 Jose Leal MD [address] [place] [address] Primary Staff Physician Cardiology 09/14/20 Driver Trainer Relationship Specialty Start Date End Date Gab Pisano MD [address] [place] [address] PCP - General Internal Medicine 10/26/15 Brayan Pringle MD Referring Cardiology 10/28/19 Fredrick Walker, optical design engineerContract Technician Internal Medicine 05/25/20 Jose Leal MD [address] [place] [address] Primary Staff Physician Cardiology 09/14/20 Driver Trainer Relationship Specialty Start Date End Date Gab Pisano MD [address] [place] [address] PCP - General Internal Medicine 10/26/15 Brayan Pringle MD Referring Cardiology 10/28/19 Fredrick Walker, optical design engineerContract Technician Internal Medicine 05/25/20 Rito Valera MD [address] [address] Primary Staff Physician Cardiology 09/15/21 Driver Trainer Relationship Specialty Start Date End Date Gab Pisano MD [address] [place] [address] PCP - General Internal Medicine 10/26/15 Brayan Pringle MD Referring Cardiology 10/28/19 Fredrick Walker, optical design engineerContract Technician Internal Medicine 05/25/20 Rito Valera MD [address] [address] Primary Staff Physician Cardiology 09/15/21 Driver Trainer Relationship Specialty Start Date End Date Gab Pisano MD [address] [place] [address] PCP - General Internal Medicine 10/26/15 Brayan Pringle MD Referring Cardiology 10/28/19 Fredrick Walker, optical design engineerContract Technician Internal Medicine 05/25/20 Rito Valera MD [address] [address] Primary Staff Physician Cardiology 09/15/21 Driver Trainer Relationship Specialty Start Date End Date Gab Pisano MD [address] [place] [address] PCP - General Internal Medicine 10/26/15 Brayan Pringle MD Referring Cardiology 10/28/19 Fredrick Walker, optical design engineerContract Technician Internal Medicine 05/25/20 Rito Valera MD [address] [address] Primary Staff Physician Cardiology 09/15/21 Driver Trainer Relationship Specialty Start Date End Date Gab Pisano MD [address] [place] [address] PCP - General Internal Medicine 10/26/15 Brayan Pirngle MD Referring Cardiology 10/28/19 Fredrick Walker, optical design engineerContract Technician Internal Medicine 05/25/20 Rito Valera MD [address] [address] Primary Staff Physician Cardiology 09/15/21 Driver Trainer Relationship Specialty Start Date End Date Gab Pisano MD [address] [place] [address] PCP - General Internal Medicine 10/26/15 Brayan Pringle MD Referring Cardiology 10/28/19 Fredrick Walker, optical design engineerContract Technician Internal Medicine 05/25/20 Rito Valera MD [address] [address] Primary Staff Physician Cardiology 09/15/21 Driver Trainer Relationship Specialty Start Date End Date Gab Pisano MD [address] [place] [address] PCP - General Internal Medicine 10/26/15 Brayan Pringle MD Referring Cardiology 10/28/19 Fredrick Walker, optical design engineerContract Technician Internal Medicine 05/25/20 Rito Valera MD [address] [address] Primary Staff Physician Cardiology 09/15/21 Driver Trainer Relationship Specialty Start Date End Date Gab Pisano MD [address] [place] [address] PCP - General Internal Medicine 10/26/15 Brayan Pringle MD Referring Cardiology 10/28/19 Fredrick Walker, optical design engineerContract Technician Internal Medicine 05/25/20 Rito Valera MD [address] [address] Primary Staff Physician Cardiology 09/15/21 Driver Trainer Relationship Specialty Start Date End Date Gab Pisano MD [address] [place] [address] PCP - General Internal Medicine 10/26/15 Brayan Pringle MD Referring Cardiology 10/28/19 Fredrick Walker, optical design engineerContract Technician Internal Medicine 05/25/20 Rito Valera MD [address] [address] Primary Staff Physician Cardiology 09/15/21 Driver Trainer Relationship Specialty Start Date End Date Gab Pisano MD [address] [place] [address] PCP - General Internal Medicine 10/26/15 Brayan Pringle MD Referring Cardiology 10/28/19 Fredrick Walker, optical design engineerContract Technician Internal Medicine 05/25/20 Rito Valera MD [address] [facility] [address] [place] [address] Primary Staff Physician Cardiology 09/15/21 Driver Trainer Relationship Specialty Start Date End Date Gab Pisano MD [address] [place] [address] PCP - General Internal Medicine 10/26/15 Brayan Pringle MD Referring Cardiology 10/28/19 Fredrick Walker, optical design engineerContract Technician Internal Medicine 05/25/20 Rito Valera MD [address] [facility] [address] [address] Primary Staff Physician Cardiology 09/15/21 Driver Trainer Relationship Specialty Start Date End Date Gab Pisano MD [address] [place] [address] PCP - General Internal Medicine 10/26/15 Brayan Pringle MD Referring Cardiology 10/28/19 Fredrick Walker, optical design engineerContract Technician Internal Medicine 05/25/20 Rito Valera MD [address] [facility] [address] [place] [address] Primary Staff Physician Cardiology 09/15/21 Driver Trainer Relationship Specialty Start Date End Date Gab Pisano MD [address] [place] [address] PCP - General Internal Medicine 10/26/15 Brayan Pringle MD Referring Cardiology 10/28/19 Fredrick Walker, optical design engineerContract Technician Internal Medicine 05/25/20 Rito Valera MD [address] [facility] [address] [place] [address] Primary Staff Physician Cardiology 09/15/21 Driver Trainer Relationship Specialty Start Date End Date Gab Pisano MD [address] [place] [address] PCP - General Internal Medicine 10/26/15 Brayan rPingle MD Referring Cardiology 10/28/19 Fredrick Walker, optical design engineerContract Technician Internal Medicine 05/25/20 Rito Valera MD [address] [facility] [address] [place] [address] Primary Staff Physician Cardiology 09/15/21 Driver Trainer Relationship Specialty Start Date End Date Gab Pisano MD [address] [place] [address] PCP - General Internal Medicine 10/26/15 Brayan Pringle MD Referring Cardiology 10/28/19 Fredrick Walker, optical design engineerContract Technician Internal Medicine 05/25/20 Rito Valera MD [address] [address] Primary Staff Physician Cardiology 09/15/21 Driver Trainer Relationship Specialty Start Date End Date Gab Pisano MD [address] [place] [address] PCP - General Internal Medicine 10/26/15 Brayan Pringle MD Referring Cardiology 10/28/19 Fredrick Walker, optical design engineerContract Technician Internal Medicine 05/25/20 Rito Valera MD [address] [facility] [address] [place] [address] Primary Staff Physician Cardiology 09/15/21 Driver Trainer Relationship Specialty Start Date End Date Gab Pisano MD [address] [place] [address] PCP - General Internal Medicine 10/26/15 Brayan Pringle MD Referring Cardiology 10/28/19 Fredrick Walker, optical design engineerContract Technician Internal Medicine 05/25/20 Rito Valera MD [address] [facility] [address] [place] [address] Primary Staff Physician Cardiology 09/15/21 Driver Trainer Relationship Specialty Start Date End Date Gab Pisano MD [address] [place] [address] PCP - General Internal Medicine 10/26/15 Brayan Pringle MD Referring Cardiology 10/28/19 Fredrick Walker, optical design engineerContract Technician Internal Medicine 05/25/20 Rito Valera MD [address] [facility] [address] [place] [address] Primary Staff Physician Cardiology 09/15/21 Driver Trainer Relationship Specialty Start Date End Date Gab Pisano MD [address] [place] [address] PCP - General Internal Medicine 10/26/15 Brayan Pringle MD Referring Cardiology 10/28/19 Diane Alcala, optical design engineerContract Technician Internal Medicine 05/25/20 Rito Valera MD [address] [address] Primary Staff Physician Cardiology 09/15/21 Driver Trainer Relationship Specialty Start Date End Date Gab Pisano MD [address] [place] [address] PCP - General Internal Medicine 10/26/15 Brayan Pringle MD Referring Cardiology 10/28/19 Diane Alcala, optical design engineerContract Technician Internal Medicine 05/25/20 Rito Valera MD [address] [address] Primary Staff Physician Cardiology 09/15/21 Driver Trainer Relationship Specialty Start Date End Date Gab Pisano MD [address] [place] [address] PCP - General Internal Medicine 10/26/15 Brayan Pringle MD Referring Cardiology 10/28/19 Diane Alcala, optical design engineerContract Technician Internal Medicine 05/25/20 Rito Valera MD [address] [address] Primary Staff Physician Cardiology 09/15/21 Driver Trainer Relationship Specialty Start Date End Date Gab Pisano MD [address] [place] [address] PCP - General Internal Medicine 10/26/15 Brayan Pringle MD [address] [place], [place] [address] Referring Cardiology 10/28/19 Diane Alcala, optical design engineerContract Technician Internal Medicine 05/25/20 Rito Valera MD [address] [address] Primary Staff Physician Cardiology 09/15/21 Driver Trainer Relationship Specialty Start Date End Date Gab Pisano MD [address] [place] [address] PCP - General Internal Medicine 10/26/15 Brayan Pringle MD [facility] [place] [address] Referring Cardiology 10/28/19 Diane Alcala, optical design engineerContract Technician Internal Medicine 05/25/20 Rito Valera MD [address] [address] Primary Staff Physician Cardiology 09/15/21 Driver Trainer Relationship Specialty Start Date End Date Gab Pisano MD [address] [place] [address] PCP - General Internal Medicine 10/26/15 Brayan Pringle MD [facility] [place] [address] Referring Cardiology 10/28/19 Diane Alcala, optical design engineerContract Technician Internal Medicine 05/25/20 Rito Valera MD [address] [address] Primary Staff Physician Cardiology 09/15/21 Driver Trainer Relationship Specialty Start Date End Date aGb Pisano MD [address] [place] [address] PCP - General Internal Medicine 10/26/15 Brayan Pringle MD [address] [place] [address] Referring Cardiology 10/28/19 Diane Alcala, optical design engineerContract Technician Internal Medicine 05/25/20 Rito Valera MD [address] [address] Primary Staff Physician Cardiology 09/15/21 Driver Trainer Relationship Specialty Start Date End Date Gab Pisano MD [address] [place] [address] PCP - General Internal Medicine 10/26/15 Brayan Pringle MD [facility] [place] [address] Referring Cardiology 10/28/19 Diane Alcala RN Contract Technician Internal Medicine 05/25/20 Rito Valera MD [address] [address] Primary Staff Physician Cardiology 09/15/21 Driver Trainer Relationship Specialty Start Date End Date Gab Pisano MD [address] [place] [address] PCP - General Internal Medicine 10/26/15 Brayan Pringle MD [address] [place] [address] Referring Cardiology 10/28/19 Diane Alcala optical design engineerContract Technician Internal Medicine 05/25/20 Rito Valera MD [address] [address] Primary Staff Physician Cardiology 09/15/21 Driver Trainer Relationship Specialty Start Date End Date Gab Pisano MD [address] [place] [address] PCP - General Internal Medicine 10/26/15 Brayan Pringle MD [address] [place] [address] Referring Cardiology 10/28/19 Diane Alcala, optical design engineerContract Technician Internal Medicine 05/25/20 Rito Valera MD [address] [address] Primary Staff Physician Cardiology 09/15/21 Driver Trainer Relationship Specialty Start Date End Date Gab Pisano MD [address] [place] [address] PCP - General Internal Medicine 10/26/15 Brayan Pringle MD [address] [place] [address] Referring Cardiology 10/28/19 Diane Alcala RN Contract Technician Internal Medicine 05/25/20 Rito Valera MD [address] [address] Primary Staff Physician Cardiology 09/15/21 Driver Trainer Relationship Specialty Start Date End Date Gab Pisano MD [address] [place] [address] PCP - General Internal Medicine 10/26/15 Brayan Pringle MD [address] [place] [address] Referring Cardiology 10/28/19 Diane Alcala, optical design engineerContract Technician Internal Medicine 05/25/20 Rito Valera MD [address] [address] Primary Staff Physician Cardiology 09/15/21 Driver Trainer Relationship Specialty Start Date End Date Gab Pisano MD [address] [place] [address] PCP - General Internal Medicine 10/26/15 Brayan Pringle MD [address] [place] [address] Referring Cardiology 10/28/19 Diane Alcala, optical design engineerContract Technician Internal Medicine 05/25/20 Rito Valera MD [address] [facility] [address] [place] [address] Primary Staff Physician Cardiology 09/15/21 Driver Trainer Relationship Specialty Start Date End Date Gab Pisano MD [address] [place] [address] PCP - General Internal Medicine 10/26/15 Brayan Pringle MD [address] [place] [address] Referring Cardiology 10/28/19 Diane Alcala RN Contract Technician Internal Medicine 05/25/20 Rito Valera MD [address] [facility] [address] [place] [address] Primary Staff Physician Cardiology 09/15/21 Driver Trainer Relationship Specialty Start Date End Date Gab Pisano MD [address] [place] [address] PCP - General Internal Medicine 10/26/15 Brayan Pringle MD [address] [place] [address] Referring Cardiology 10/28/19 Diane Alcala, optical design engineerContract Technician Internal Medicine 05/25/20 Rito Valera MD [address] [place], [place] [address] Primary Staff Physician Cardiology 09/15/21 Driver Trainer Relationship Specialty Start Date End Date Gab Pisano MD [address] [place] [address] PCP - General Internal Medicine 10/26/15 Brayan Pringle MD [address] [place] [address] Referring Cardiology 10/28/19 Diane Alcala, optical design engineerContract Technician Internal Medicine 05/25/20 Rito Valera MD [address] [address] Primary Staff Physician Cardiology 09/15/21 Driver Trainer Relationship Specialty Start Date End Date Gab Pisano MD [address] [place] [address] PCP - General Internal Medicine 10/26/15 Brayan Pringle MD [address] [place] [address] Referring Cardiology 10/28/19 Diane Alcala RN Contract Technician Internal Medicine 05/25/20 Rito Valera MD [address] [address] Primary Staff Physician Cardiology 09/15/21 Driver Trainer Relationship Specialty Start Date End Date Gab Pisano MD [address] [place] [address] PCP - General Internal Medicine 10/26/15 Brayan Pringle MD [address] [place] [address] Referring Cardiology 10/28/19 Diane Alcala RN Contract Technician Internal Medicine 05/25/20 Rito Valera MD [address] [address] Primary Staff Physician Cardiology 09/15/21 Driver Trainer Relationship Specialty Start Date End Date Gab Pisano MD [address] [place] [address] PCP - General Internal Medicine 10/26/15 Brayan Pringle MD [address] [place] [address] Referring Cardiology 10/28/19 Diane Alcala, optical design engineerContract Technician Internal Medicine 05/25/20 Rito Valera MD [address] [facility] [address] [place] [address] Primary Staff Physician Cardiology 09/15/21 Driver Trainer Relationship Specialty Start Date End Date Gab Pisano MD [address] [place] [address] PCP - General Internal Medicine 10/26/15 Brayan Pringle MD [address] [place] [address] Referring Cardiology 10/28/19 Diane Alcala RN Contract Technician Internal Medicine 05/25/20 Rito Valera MD [address] [place] [address] Primary Staff Physician Cardiology 09/15/21 Driver Trainer Relationship Specialty Start Date End Date Gab Pisano MD [address] [place] [address] PCP - General Internal Medicine 10/26/15 Brayan Pringle MD [address] [place] [address] Referring Cardiology 10/28/19 Diane Alcala RN Contract Technician Internal Medicine 05/25/20 Rito Valera MD [address] [address] Primary Staff Physician Cardiology 09/15/21 Driver Trainer Relationship Specialty Start Date End Date Gab Pisano MD [address] [place] [address] PCP - General Internal Medicine 10/26/15 Brayan Pringle MD [address] [place] [address] Referring Cardiology 10/28/19 Diane Alcala, optical design engineerContract Technician Internal Medicine 05/25/20 Rito Valera MD [address] [address] Primary Staff Physician Cardiology 09/15/21 Driver Trainer Relationship Specialty Start Date End Date Gab Pisano MD [address] [place] [address] PCP - General Internal Medicine 10/26/15 Brayan Pringle MD [address] [place] [address] Referring Cardiology 10/28/19 Diane Alcala RN Contract Technician Internal Medicine 05/25/20 Rito Valera MD [address] [address] Primary Staff Physician Cardiology 09/15/21 Driver Trainer Relationship Specialty Start Date End Date Gab Pisano MD [address] [place] [address] PCP - General Internal Medicine 10/26/15 Brayan Pringle MD [address] [place] [address] Referring Cardiology 10/28/19 Diane Alcala, optical design engineerContract Technician Internal Medicine 05/25/20 Rito Valera MD [address] [facility] [place] [address] Primary Staff Physician Cardiology 09/15/21 Driver Trainer Relationship Specialty Start Date End Date Gab Pisano MD [address] [place] [address] PCP - General Internal Medicine 10/26/15 Brayan Pringle MD [address] [place] [address] Referring Cardiology 10/28/19 Diane Alcala, optical design engineerContract Technician Internal Medicine 05/25/20 Rito Valera MD [address] [address] Primary Staff Physician Cardiology 09/15/21 Driver Trainer Relationship Specialty Start Date End Date Gab Pisano MD [address] [place] [address] PCP - General Internal Medicine 10/26/15 Brayan Pringle MD [address] [place] [address] Referring Cardiology 10/28/19 Diane Alcala, optical design engineerContract Technician Internal Medicine 05/25/20 Rito Valera MD [address] [address] Primary Staff Physician Cardiology 09/15/21 Driver Trainer Relationship Specialty Start Date End Date Gab Pisano MD [address] [place] [address] PCP - General Internal Medicine 10/26/15 Brayan Pringle MD [address] [place] [address] Referring Cardiology 10/28/19 Diane Alcala, optical design engineerContract Technician Internal Medicine 05/25/20 Rito Valera MD [address] [facility] [facility] [address] [place] [address] Primary Staff Physician Cardiology 09/15/21 Driver Trainer Relationship Specialty Start Date End Date Gab Pisano MD [address] [place] [address] PCP - General Internal Medicine 10/26/15 Brayan Pringle MD [address] [place], [place] [address]67[address] Referring Cardiology 10/28/19 Diane Alcala RN Contract Technician Internal Medicine 05/25/20 Rito Valera MD [address] [facility] [address] [place] [address] Primary Staff Physician Cardiology 09/15/21 Driver Trainer Relationship Specialty Start Date End Date Gab Pisano MD [address] [place] [address] PCP - General Internal Medicine 10/26/15 Brayan Pringle MD [address] [place], [place] [id number] Referring Cardiology 10/28/19 Diane Alcala, optical design engineerContract Technician Internal Medicine 05/25/20 Rito Valera MD [address] [facility] [address] [place], [place] [id number] Primary Staff Physician Cardiology 09/15/21 Driver Trainer Relationship Specialty Start Date End Date Gab Pisano MD [address] [place] [address] PCP - General Internal Medicine 10/26/15 Brayan Pringle MD [address] [place], [place] [address]471 Referring Cardiology 10/28/19 Diane Alcala, optical design engineerContract Technician Internal Medicine 05/25/20 Rito Valera MD [address] [place] [address] Primary Staff Physician Cardiology 09/15/21 Driver Trainer Relationship Specialty Start Date End Date Gab Pisano MD [address] [place] [address] PCP - General Internal Medicine 10/26/15 Brayan Pringle MD [address] [place], [place] [address] Referring Cardiology 10/28/19 Diane Alcala, optical design engineerContract Technician Internal Medicine 05/25/20 Rito Valera MD [address] [facility] [address] [place] [address] Primary Staff Physician Cardiology 09/15/21 Driver Trainer Relationship Specialty Start Date End Date Gab Pisano MD [address] [place] [address] PCP - General Internal Medicine 10/26/15 Brayan Pringle MD [address] [place], [place] [id number] Referring Cardiology 10/28/19 Diane Alcala, optical design engineerContract Technician Internal Medicine 05/25/20 Rito Valera MD [address] [place] [address] Primary Staff Physician Cardiology 09/15/21 Driver Trainer Relationship Specialty Start Date End Date Gab Pisano MD [address] [place] [address] PCP - General Internal Medicine 10/26/15 Brayan Pringle MD [address] [place] [address] Referring Cardiology 10/28/19 Diane Alcala RN Contract Technician Internal Medicine 05/25/20 Rito Valera MD [address] [facility] [place] [address] Primary Staff Physician Cardiology 09/15/21 Driver Trainer Relationship Specialty Start Date End Date Gab Pisano MD [address] [place] [address] PCP - General Internal Medicine 10/26/15 Brayan Pringle MD [address] [place] [address] Referring Cardiology 10/28/19 Diane Alcala, optical design engineerContract Technician Internal Medicine 05/25/20 Rito Valera MD [address] [facility] [place], [place] [id number] Primary Staff Physician Cardiology 09/15/21 Driver Trainer Relationship Specialty Start Date End Date Gab Pisano MD [address] [place] [address] PCP - General Internal Medicine 10/26/15 Brayan Pringle MD [address] [place] [address] Referring Cardiology 10/28/19 Diane Alcala, optical design engineerContract Technician Internal Medicine 05/25/20 Rito Valera MD [address] [facility] [address] [place], [place] [id number] Primary Staff Physician Cardiology 09/15/21 Driver Trainer Relationship Specialty Start Date End Date Gab Pisano MD [address] [place] [address] PCP - General Internal Medicine 10/26/15 Brayan Pringle MD [address] [place], [place] 725701 Referring Cardiology 10/28/19 Diane Alcala RN Contract Technician Internal Medicine 05/25/20 Rito Valera MD [address] [facility] [place] [address] [place] [address] Primary Staff Physician Cardiology 09/15/21 Driver Trainer Relationship Specialty Start Date End Date Gab Pisano MD [address] [place] [address] PCP - General Internal Medicine 10/26/15 Brayan Pringle MD [address] [place], [place] 7153[address] Referring Cardiology 10/28/19 Diane Alcala, optical design engineerContract Technician Internal Medicine 05/25/20 Rito Valera MD [address] [facility] [place] [address] Primary Staff Physician Cardiology 09/15/21 Driver Trainer Relationship Specialty Start Date End Date Gab Pisano MD [address] [place] [address] PCP - General Internal Medicine 10/26/15 Brayan Pringle MD [address] [place] [address] Referring Cardiology 10/28/19 Diane Alcala RN Contract Technician Internal Medicine 05/25/20 Rito Valera MD [address] [address] Primary Staff Physician Cardiology 09/15/21 Driver Trainer Relationship Specialty Start Date End Date Gab Pisano MD [address] [place] [address] PCP - General Internal Medicine 10/26/15 Brayan Pringle MD [address] [place] [address] Referring Cardiology 10/28/19 Diane Alcala, optical design engineerContract Technician Internal Medicine 05/25/20 Rito Valera MD [address] [facility] [place] [address] Primary Staff Physician Cardiology 09/15/21 Driver Trainer Relationship Specialty Start Date End Date Gab Pisano MD [address] [place] [address] PCP - General Internal Medicine 10/26/15 Brayan Pringle MD [address] [place] [address] Referring Cardiology 10/28/19 Diane Alcala, optical design engineerContract Technician Internal Medicine 05/25/20 Rito Valera MD [address] [facility] [place] [address] Primary Staff Physician Cardiology 09/15/21 Driver Trainer Relationship Specialty Start Date End Date Gab Pisano MD [address] [place] [address] PCP - General Internal Medicine 10/26/15 Brayan Pringle MD [address] [place] [address] Referring Cardiology 10/28/19 Diane Alcala RN Contract Technician Internal Medicine 05/25/20 Rito Valera MD [address] [address] Primary Staff Physician Cardiology 09/15/21 Driver Trainer Relationship Specialty Start Date End Date Gab Pisano MD [address] [place] [address] PCP - General Internal Medicine 10/26/15 Brayan Pringle MD [address] [place] [address] Referring Cardiology 10/28/19 Diane Alcala RN Contract Technician Internal Medicine 05/25/20 Rito Valera MD [address] [facility] [facility] [address] [place] [address] Primary Staff Physician Cardiology 09/15/21 Driver Trainer Relationship Specialty Start Date End Date Gab Pisano MD [address] [place], [place] [address]697[address] PCP - General Internal Medicine 10/26/15 Brayan Pringle MD [address] [place], [place] [address]83131 Referring Cardiology 10/28/19 Diane Alcala, optical design engineerContract Technician Internal Medicine 05/25/20 Rito Valera MD [address] [facility] [place] [address] Primary Staff Physician Cardiology 09/15/21 Driver Trainer Relationship Specialty Start Date End Date Gab Pisano MD [address] [place] [address] PCP - General Internal Medicine 10/26/15 Brayan Pringle MD [address] [place], [place] [address]35[address] Referring Cardiology 10/28/19 Diane Alcala, optical design engineerContract Technician Internal Medicine 05/25/20 Rito Valera MD [address] [facility] [place], [place] [id number] Primary Staff Physician Cardiology 09/15/21 Driver Trainer Relationship Specialty Start Date End Date Gab Pisano MD [address] [place], [place] 314251 PCP - General Internal Medicine 10/26/15 Brayan Pringle MD [address] [place] [address] Referring Cardiology 10/28/19 Diane Alcala, optical design engineerContract Technician Internal Medicine 05/25/20 Rito Valera MD [address] [address] Primary Staff Physician Cardiology 09/15/21 Driver Trainer Relationship Specialty Start Date End Date Gab Pisano MD [address] [place] [address] PCP - General Internal Medicine 10/26/15 Brayan Pringle MD [address] [place] [address] Referring Cardiology 10/28/19 Diane Alcala, optical design engineerContract Technician Internal Medicine 05/25/20 Rito Valera MD [address] [address] Primary Staff Physician Cardiology 09/15/21 Driver Trainer Relationship Specialty Start Date End Date Gab Pisano MD [address] [place] [address] PCP - General Internal Medicine 10/26/15 Brayan Pringle MD [address] [place], [place] [id number] Referring Cardiology 10/28/19 Diane Alcala, optical design engineerContract Technician Internal Medicine 05/25/20 Rito Valera MD [address] [place] [address] Primary Staff Physician Cardiology 09/15/21 Driver Trainer Relationship Specialty Start Date End Date Gab Pisano MD [address] [place] [address] PCP - General Internal Medicine 10/26/15 Brayan Pringle MD [address] [place] [address] Referring Cardiology 10/28/19 Diane Alcala, optical design engineerContract Technician Internal Medicine 05/25/20 Rito Valera MD [address] [address] Primary Staff Physician Cardiology 09/15/21 Driver Trainer Relationship Specialty Start Date End Date Gab Pisano MD [address] [place] [address] PCP - General Internal Medicine 10/26/15 Brayan Pringle MD [address] [place] [address] Referring Cardiology 10/28/19 Diane Alcala, optical design engineerContract Technician Internal Medicine 05/25/20 Rito Valera MD [address] [id number] Primary Staff Physician Cardiology 09/15/21 Driver Trainer Relationship Specialty Start Date End Date Gab Pisano MD [address] [place] [address] PCP - General Internal Medicine 10/26/15 Brayan Pringle MD [address] [place] [address] Referring Cardiology 10/28/19 Diane Alcala, optical design engineerContract Technician Internal Medicine 05/25/20 Rito Valera MD [address] [facility] [address] [place] [address] Primary Staff Physician Cardiology 09/15/21 FOR RECORDS [...] BE BASED ON THE PRIMARY CLINICAL RECORDS. [employer] provides no warranty or guarantee of the accuracy or completeness of information in this document.
[2023-05-17 08:05] LABS: Absolute Lymphocyte Count 2.29 X10^3/uL (0.83-4.51); Absolute Neutrophil Count 4.6 X10^3/uL (2.0-7.7); Basophil# 0.03 X10^3/uL; Basophil% 0.4 % (0-1); Eosinophil# 0.21 X10^3/uL; Eosinophils% 2.6 % (0-5); Hematocrit 25.2 % (37-47); Hemoglobin 7.7 g/dL (12.0-15.0); Lymphocyte # 2.29 X10^3/ul (0.83-4.51); Lymphocyte % 28.5 % (19-41); Mean Corp Hgb Conc 30.6 g/dL (32-36); Mean Corpuscular Hgb 28.2 pg (27.0-32.0); Mean Corpuscular Volume 92.3 fL (81-99); Mean Platelet Vol. 8.6 fl (6.2-12.0); Monocyte# 0.82 X10^3/uL; Monocyte% 10.2 % (0-10); NRBC Flagged by Analyzer 0 % (0-5); Neutrophil # 4.56 X10^3/uL (2.7-7.7); Neutrophil % 56.8 % (47-70); Platelet Count 378 K/mm3 (150-450); RBC Distribution Width CV 18.5 % (11.6-14.6); RBC Distribution Width SD 61.1 fl (35.1-43.9); Red Blood Count 2.73 M/mm3 (4.2-5.4)
[2023-05-17] MEDS: 0.9% Normal Saline (500mL Bag) 500 ML 1000 ML IV (08:11)
[2023-05-17 08:21] LABS: Anion Gap 5 (5-15); BUN 12 mg/dL (7-18); BUN/Creat Ratio 15.7 RATIO (10-20); Calcium,Total 8.2 mg/dL (8.5-10.1); Chloride 112 mmol/L (98-107); Creatinine, Serum 0.76 mg/dL (0.55-1.02); EST Glomerular Filtration Rate 77 mL/min (>60); Est Glom Filt Rate - Afr Amer 93 mL/min (>60); Estimated Creatinine Clearance 48.79 ml/min; Glucose 146 mg/dL (74-106); Potassium 4.1 mmol/L (3.5-5.1); Sodium Level 140 mmol/L (136-145)
[2023-05-17 08:33] LABS: Partial Thromboplast Time 40.4 Seconds (24.1-36.2)
[2023-05-17 08:37] LABS: Lactic Acid 2.1 mmol/L (0.4-1.9)
--- NOTE | 2023-05-17 08:54 | HP.PCM.HOS_ITS ---
[facility] - General General Date of Admission: 05/17/23 Date of Service: 05/17/23 Chief Complaint: GI bleed. [facility] Narrative KEYONNA VILLAGOMEZ, is a 82 F who presents with a GI bleed. Patient was in normal state of health and then today had a large bloody bowel movement. Associated with dizziness, nausea and dry heaves. Patient was in transitional care unit sent to the emergency room. Patient's hemoglobin was checked twice and was 7.[address] Addison, gastroenterology, was contacted and advised Protonix bolus and drip. Also recommended CTA, however that was not performed as patient has anaphylactic reaction with contrast dye. Patient currently feels fine at this time lying in bed. Last time patient had bleeding here she did not have any obvious hematochezia but earlier last month, she was seen in the [facility] and family thinks that she did have bleeding at that time though not as severe as it was this time. Patient did have 2 endoscopies for cauterization and clipping of duodenal ulcer. Patient has low fibrinogen level and so does bleed easier after surgeries. And also has a history of clotting so and she has been reinstituted on enoxaparin. Patient also been recently treated for mastoiditis which she is still taking pip-tazo for through the . [facility] Medical History (Updated 05/17/23 @ 08:[address] Zohaib Castaneda, ) Abdominal pain Abdominal pain Abnormal stress echo Acid reflux Arthritis Atherosclerosis of [place] coronary artery of [place] heart without angina pectoris Back problem Cellulitis of left lower extremity Chest pain Constipation Diverticulitis of sigmoid colon DVT (deep venous thrombosis) Essential hypertension Gastrointestinal hemorrhage Heart murmur Hemorrhoids History of pulmonary embolus (PE) (~2009) History of venous thrombosis and embolism hx of APLL Hyperlipidemia Hypertension Hypertrophic cardiomyopathy Hypofibrinogenemia Hypothyroidism Kidney disease LVH (left ventricular 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 Palpitations Personal history of colonic polyps Severe left ventricular hypertrophy Severe mitral regurgitation Thrombophlebitis of superficial veins of left lower extremity Wild-type transthyretin-related (ATTR) amyloidosis Home Medications levothyroxine 88 mcg tablet 88 mcg PO DAILY THYROID 05/27/18 [History Last Taken 04/04/23] aspirin 81 mg tablet,delayed release (Adult Aspirin Regimen) 81 mg PO DAILY HEART [facility] 12/12/19 [History Last Taken 05/08/23] tafamidis 61 mg capsule 61 mg PO DAILY HEART FAILURE 12/12/19 [History Last Taken 05/08/23] cholecalciferol (vitamin D3) 125 mcg (5,000 unit) capsule 125 mcg PO DAILY SUPPLEMENT 04/15/20 [History Last Taken 04/04/23] metoprolol succinate 25 mg tablet,extended release 24 hr (Toprol XL) 12.5 mg PO DAILY BLOOD PRESSURE 07/13/22 [History Last Taken 05/08/23] vitamins A,C,O-aeoe-zbwrzj 4,296 mcg-226 mg-90 mg capsule (PreserVision AREDS) 1 cap PO BID EYE HEALTH 01/11/23 [History Last Taken 04/04/23] gabapentin 300 mg capsule 300 mg PO QHS NEUROPATHY 02/16/23 [History Last Taken 05/07/23] MAGIC MOUTH WASH (BMX) 180 mL suspension 5 ml PO Q4H PRN Mouth pain #180 mL 04/20/23 [History Last Taken Unknown] benzocaine 6 mg-menthol 10 mg lozenges 1 salvatore mucous membrane Q2H Sore throat 04/20/23 [History Last Taken Unknown] diclofenac sodium 1 % topical gel (Voltaren Arthritis Pain) 2 g topical 4X/DAY Arthritis pain 04/20/23 [History Last Taken Unknown] ascorbate calcium (vitamin C) 500 mg tablet 500 mg PO DAILY Supplement 05/03/23 [History Last Taken Unknown] atorvastatin 10 mg tablet (Lipitor) 10 mg PO QHS Cholestrol 05/03/23 [History Last Taken Unknown] calcium carbonate 200 mg calcium (500 mg) chewable tablet (Tums) 200 mg PO BID Supplement 05/03/23 [History Last Taken Unknown] doxepin 10 mg capsule 10 mg PO QHS sleep 05/03/23 [History Last Taken Unknown] acetaminophen 325 mg tablet 650 mg (2 x 325 mg) PO Q6H PRN PRN Pain 1-10 Or Fever >100.7 #0 tabs 05/08/23 [Rx Last Taken Unknown] melatonin 3 mg tablet 3 mg PO QHS PRN PRN Insomnia #0 tabs 05/08/23 [Rx Last Taken Unknown] piperacillin-tazobactam 3.375 gram/50 mL dextrose(iso-os) IV piggyback (Zosyn) 3.375 g (56.25 mL) IV Q8H Antibiotic 9 days 05/08/23 [Rx Last Taken Unknown] acetaminophen 500 mg tablet 1,000 mg (2 x 500 mg) PO Q6H PRN PRN Pain Score 1-3 #0 tabs 05/16/23 [Rx Last Taken Unknown] ascorbic acid (vitamin C) 500 mg tablet 500 mg PO 1000 30 days #30 tabs 05/16/23 [Rx Last Taken Unknown] doxepin 10 mg capsule 10 mg PO 1999 30 days #30 caps 05/16/23 [Rx Last Taken Unknown] mirtazapine 15 mg tablet 7.5 mg (1/2 x 15 mg) PO 1999 30 days #15 tabs 05/16/23 [Rx Last Taken Unknown] pantoprazole 40 mg tablet,delayed release 40 mg PO BID 30 days #60 tabs 05/16/23 [Rx Last Taken Unknown] polysaccharide iron complex 150 mg iron capsule (Ferrex) 150 mg PO DAILY 30 days #30 caps 05/16/23 [Rx Last Taken Unknown] potassium chloride 20 mEq tablet,extended release(part/cryst) 20 meq PO DAILYCM 30 days #30 tabs 05/16/23 [Rx Last Taken Unknown] sucralfate 1 gram tablet 1 g PO BIDAC 30 days #60 tabs 05/16/23 [Rx Last Taken Unknown] tramadol 50 mg tablet 50 mg PO Q6H PRN PRN Pain Score 4-5 30 days #120 tabs 05/16/23 [Rx Last Taken Unknown] Allergy/AdvReac Type Severity Reaction Status Date / Time Iodinated Contrast Media Allergy Severe Hives Verified 05/07/23 10:54 [Iodinated Contrast- Oral and IV Dye] iodine Allergy Anaphylaxis Verified 05/07/23 10:54 Family History Mother Colon cancer Brother Myeloma Father Heart disease Surgical History History of cholecystectomy History of left heart catheterization (10/22/19) History of left hip replacement History of right hip replacement Hx of arthroscopic knee surgery Hx of bilateral inguinal hernia repair Hx of bladder repair surgery Hx of hysterectomy Hx of partial thyroidectomy Hx of umbilical hernia repair (~2009) Social History household members: spouse Smoking Status: Never smoker second hand exposure: No alcohol intake: never substance use type: does not use caffeine: Yes (very rare) what type of physical activity do you participate in: none frequency: does not exercise seatbelt use: always Vital Signs Vital Signs Vital Signs: 05/17/23 07:02 Temperature 36.2 C L Temperature Source Temporal Pulse Rate 117 H Respiratory Rate 18 Blood Pressure 113/58 L Blood Pressure Mean 76 Pulse Ox 98 Oxygen Delivery Method Room Air Weight Weight: 58.513 kg Body Mass Index (BMI) 21.4 Physical Exam Const alert and no apparent distress Constitutional Narrative: Afebrile. Nontoxic. General Appearance: cooperative HEENT moist oral mucous membranes HEENT Narrative: No icterus. Eyes EOMs intact bilaterally Eyes Narrative: No icterus. Neck no lymphadenopathy Neck Narrative: No thyromegaly Resp normal respiratory effort, no retractions, no use of accessory muscles and clear to auscultation bilaterally Cardio regular rate, regular rhythm, S1 normal heart sound and S2 normal heart sound GI normal to inspection, nondistended, normoactive bowel sounds, soft to palpation, non-tender and non-distended Extremity normal to inspection and no clubbing, cyanosis or edema Skin Skin Narrative: No rashes or sores Neuro oriented x3, moves all extremities and no focal motor deficits Sensorium / Orientation: awake and alert Motor Exam: strength 5/5 throughout Psych affect normal Results Lab / Micro Data 05/17/23 07:47 05/17/23 07:47 Labs: Laboratory Results - last 24 hr 05/17/23 07:47: WBC 8.0, RBC 2.73 L, Hgb 7.7 L, Hct 25.2 L, MCV 92.3, MCH 28.2, MCHC 30.6 L, RDW Std Deviation 61.1 H, RDW Coeff of Rashmi 18.5 H, Plt Count 378, MPV 8.6, Immature Gran % (Auto) 1.500 H, Neut % (Auto) 56.8, Lymph % (Auto) 28.5, [place] % (Auto) 10.2 H, Eos % (Auto) 2.6, Baso % (Auto) 0.4, Absolute Neuts (auto) 4.6, Absolute Lymphs (auto) 2.29, Nucleated RBC % 0, APTT 40.4 H, Sodium 140, Potassium 4.1, Chloride 112 H, Carbon Dioxide 23.0, Anion Gap 5, BUN 12, Creatinine 0.76, Estim Creat Clear Calc 48.79, Est GFR (MDRD) Af Amer 93, Est GFR (MDRD) Non-Af 77, BUN/Creatinine Ratio 15.7, Glucose 146 H, Lactic Acid 2.1 H*, Calcium 8.2 L, Antibody Screen NEGATIVE Rhythm Strip Rhythm Strip: Sinus Tach Rate: 122 Ectopy: None Assessment & Plan Assessment/Plan (1) Gastrointestinal hemorrhage: PLAN: Plan GI bleed * Patient did have hematochezia upon arrival. Hemoglobin is currently 7.7. * Concerned that this could be duodenal as patient has had recent endoscopy for duodenal ulcers x 2 last month. Other possibilities could be diverticulosis, hemorrhoids. CT angiogram not performed as patient does have anaphylaxis. If patient does continue to bleed then she will need to be premedicated to undergo a CT angiogram * Patient has been started on pantoprazole bolus and drip. Will continue * GI consult * Monitor H&H Acute blood loss anemia * Hemoglobin has dropped from 8.6-7.7 within 24 hours * Will type and cross for 1 unit but hold * Monitor H&H Mastoiditis, subsequent visit * Previously, patient was being treated for acute mastoiditis with pip-tazo. Pip-tazo is to continue through the . Placed the order for that to be continued and will have it discontinued after it has been administered tomorrow. Chronic conditions * History of VTE: Enoxaparin currently being held * Low fibrinogen: Patient is very apt bleeding due to this but also being on anticoagulation. Complicates care and management. * Vitamin D deficiency: Continue vitamin D * Cardiac amyloidosis: Continue with tafamidis VTE prophylaxis: High risk given history. Not a candidate for anticoagulation at this time. SCDs. CODE STATUS: Addressed with the patient. Patient was to be full code. Case discussed with family at bedside. Disposition: Determined. Will have physical occupational therapy evaluate her. Case management to see. Do anticipate the patient's hospitalization extending beyond 2 days given the bleeding and her history. . Charges/Coding Visit Charges Inpatient E&M: 30111 Init Hosp L3
[2023-05-17] MEDS: Pantoprazole Sodium 80 MG in 0.9% Normal Saline (50mL Bag) 15 ML 420 MG IV BOLUS (09:05)
--- NOTE | 2023-05-17 09:17 | CASEMGMT ---
Patient is from TCU. Patient's plan was to discharge from TCU 218. SW will follow for d/c planning. Alexandria MARTINS
[2023-05-17] MEDS: Pantoprazole Sodium 80 MG in 0.9% Normal Saline (100mL Bag) 80 ML 10 MG CONT INF ×2 (09:45→19:48)
[2023-05-17] MEDS: BENZOCAINE/MENTHOL 1 LOZENGE MUCOUS MEM (10:02)
[2023-05-17] MEDS: Metoprolol(XL)Succ 25 MG Tablet 12.5 MG PO (11:27)
[2023-05-17 11:59] LABS: Reflex Lactate? Y
[2023-05-17 12:20] LABS: Lactic Acid 1.6 mmol/L (0.4-1.9)
[2023-05-17 13:50] LABS: Hematocrit 20.7 % (37-47); Hemoglobin 6.3 g/dL (12.0-15.0)
--- NOTE | 2023-05-17 14:41 | CT_ITS ---
We are attempting to reach an attending provider to discuss findings. An addendum with communication details will be sent when the communication is complete. EXAM: CT ANGIOGRAPHY ABDOMEN AND PELVIS WITHOUT AND WITH INTRAVENOUS CONTRAST CLINICAL INDICATION: GI bleed TECHNIQUE: Helically acquired angiography images were obtained of the abdomen and pelvis without and with intravenous contrast. This CT exam was performed using one or more of the following dose reduction techniques: automated exposure control, adjustment of the mA and/or kV according to patient size, and/or use of iterative reconstruction technique. MIP reconstructed images were created and reviewed. CONTRAST: IV 100mL Isovue-300 COMPARISON: CT abdomen and pelvis, 04/03/2023 FINDINGS: VASCULATURE: AORTA: No significant findings. Normal caliber abdominal aorta. No dissection. CELIAC TRUNK AND MESENTERIC ARTERIES: No significant findings. No occlusion or significant stenosis. No dissection. RENAL ARTERIES: No significant findings. No occlusion or significant stenosis. No dissection. ILIAC ARTERIES: No significant findings. No occlusion or significant stenosis. No dissection. INFERIOR VENA CAVA: An IVC filter is present with the tines extending far beyond the lumen of the IVC although no evidence of extravasation at this location. LOWER THORAX: Trace left pleural effusion with minimal left basilar airspace disease which may be atelectasis or pneumonia. Coronary artery calcifications. No cardiomegaly. ABDOMEN: LIVER: Hepatic cyst is present for which no follow-up is indicated. GALLBLADDER AND BILE DUCTS: No significant abnormality. No calcified gallstones. No gallbladder distention or wall edema. No intra- or extrahepatic biliary ductal dilation. PANCREAS: No significant abnormality. No focal cystic or solid mass. SPLEEN: No significant abnormality. Normal size without focal cystic or solid mass. ADRENALS: No significant abnormality. No nodules. KIDNEYS AND URETERS: Multiple renal cysts are identified for which no follow-up is indicated. Normal renal size and position. No hydronephrosis. STOMACH AND BOWEL: Serpiginous enhancement versus hyperdensity is identified within the lumen of the duodenum perhaps indicating a source of active extravasation is best assessed on this single phase examination. No similar findings are present on prior exam. Layering hyperdensity within the rectum may be hyperdense enteric content versus hemorrhage. Additional hyperdense foci throughout the remainder of the colon are identified. Colonic diverticulosis without evidence of acute diverticulitis. No stomach or bowel distention. PELVIS: APPENDIX: No evidence of acute appendicitis. BLADDER: No significant abnormality. REPRODUCTIVE: Normal as visualized. No mass. ABDOMEN and PELVIS: INTRAPERITONEAL SPACE: No significant abnormality. No ascites or other fluid collection. No free air. BONES/JOINTS: Bilateral hip arthroplasty. Degenerative changes in the spine. No suspicious lytic or blastic abnormality. SOFT TISSUES: Status post anterior abdominal wall hernia repair. LYMPH NODES: No significant abnormality. No enlarged lymph nodes. CT/CTA Abd/Pelvis W/WO Contrast IMPRESSION: 1. Serpiginous enhancement versus hyperdensity is identified within the lumen of the duodenum perhaps indicating a source of active extravasation is best assessed on this single phase examination. No similar findings are present on prior exam. 2. Layering hyperdensity within the rectum may be hyperdense enteric content versus hemorrhage. Additional hyperdense foci throughout the remainder of the colon are identified. Other sites of potential intraluminal hemorrhage are identified as above. Consider a tagged red blood cell scan for further evaluation. 3. Trace left pleural effusion with minimal left basilar airspace disease which may be atelectasis or pneumonia. 4. Colonic diverticulosis without evidence of acute diverticulitis. Electronically Signed: Arnold Rodrigues DO at 21:54 EST ,
--- NOTE | 2023-05-17 14:55 | CHAPLAIN ---
Type of Pastoral Visit ___ Initial Visit _x__ Follow-up Visit ___ On-call Visit ___ General Patient Visit ___ Spiritual Assessment ___ Family Conference ___ Bereavement ___ Rapid Response ___ Code Blue ___ Other (describe below) Pastoral Care Referral From _x__ Patient ___ Family ___ Nurse ___ Physician ___ Installation Drafter ___ Copy Camera Operator ___ Other (describe below) Sacrament/Intervention _x__ Active listening ___ Anointing ___ Moravian ___ Bereavement ___ Communion ___ Christal exploration ___ ___ Life review _x__ Prayer ___ Reconciliation ___ Sacrament of Sick ___ Supportive presence ___ Wedding ___ Other (describe below) Pastoral Comments patient has been seen in several different locations over the last weeks; pt had another episode and is back in PCU; pt is surrounded by family members; pt to have a procedure today to find out source of her troubles'; pt is awake and lying flat down in bed; many family members are in the room; Mormon members and family are attention; many family member are in the room at this time; prayer is requested by patient and is given;
--- NOTE | 2023-05-17 15:04 | PCM.HOSP.N ---
Hospitalist Note Still with bleeding. Patient had another very large bloody bowel movement today.. Advised nursing to administer 1 unit packed red blood cells. Will type and screen for additional [address] Addison, he recommended getting a CT a of the abdomen pelvis. He will hold off on doing endoscopy until we know what the results of that are. Does discussed with the patient's family at bedside. Told them that we be premedicating her and there will be several hours before she would be able to have the CT angiogram.
[2023-05-17] MEDS: Piperacil/Tazobactam 3.375 GM in 0.9% Normal Saline (50mL MB+) 50 ML IV ×2 (15:26→22:43)
[2023-05-17] MEDS: Calcium Carbonate 500 MG Tablet PO (16:56)
[2023-05-17] MEDS: Sucralfate 1 GM Tablet PO (16:56)
--- NOTE | 2023-05-17 17:45 | EX.PCM.CON.G ---
HPI Consult Data Date of Consult: 05/17/23 HPI Narrative Reason for Consultation: GI bleed HPI Narrative: KEYONNA VILLAGOMEZ, is a 82 F who presents from TCU because of large bloody stool with orthostatic symptoms. 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 She has history of hypofibrinogenemia. During her most recent admission she had a GI bleed. She was discovered to have a duodenal ulcer. She comes in now with more darkish maroonish stool that she has been producing. She has a history of PE and is on chronic therapy. 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 [facility] Medical History Abdominal pain Abdominal pain Abnormal stress echo Acid reflux Arthritis Atherosclerosis of [place] coronary artery of [place] heart without angina pectoris Back problem Cellulitis of left lower extremity Chest pain Constipation Diverticulitis of sigmoid colon DVT (deep venous thrombosis) Essential hypertension Gastrointestinal hemorrhage Heart murmur Hemorrhoids History of pulmonary embolus (PE) (~2009) History of venous thrombosis and embolism hx of APLL Hyperlipidemia Hypertension Hypertrophic cardiomyopathy Hypofibrinogenemia Hypothyroidism Kidney disease LVH (left ventricular 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 Palpitations Personal history of colonic polyps Severe left ventricular hypertrophy Severe mitral regurgitation Thrombophlebitis of superficial veins of left lower extremity Wild-type transthyretin-related (ATTR) amyloidosis Home Medications levothyroxine 88 mcg tablet 88 mcg PO DAILY THYROID 05/27/18 [History Last Taken 04/04/23] aspirin 81 mg tablet,delayed release (Adult Aspirin Regimen) 81 mg PO DAILY HEART HEALTH 12/12/19 [History Last Taken 05/08/23] tafamidis 61 mg capsule 61 mg PO DAILY HEART FAILURE 12/12/19 [History Last Taken 05/08/23] cholecalciferol (vitamin D3) 125 mcg (5,000 unit) capsule 125 mcg PO DAILY SUPPLEMENT 04/15/20 [History Last Taken 04/04/23] metoprolol succinate 25 mg tablet,extended release 24 hr (Toprol XL) 12.5 mg PO DAILY BLOOD PRESSURE 07/13/22 [History Last Taken 05/08/23] vitamins A,C,Z-kvgs-gchbbk 4,296 mcg-226 mg-90 mg capsule (PreserVision AREDS) 1 cap PO BID EYE HEALTH 01/11/23 [History Last Taken 04/04/23] gabapentin 300 mg capsule 300 mg PO QHS NEUROPATHY 02/16/23 [History Last Taken 05/07/23] MAGIC MOUTH WASH (BMX) 180 mL suspension 5 ml PO Q4H PRN Mouth pain #180 mL 04/20/23 [History Last Taken Unknown] benzocaine 6 mg-menthol 10 mg lozenges 1 salvatore mucous membrane Q2H Sore throat 04/20/23 [History Last Taken Unknown] diclofenac sodium 1 % topical gel (Voltaren Arthritis Pain) 2 g topical 4X/DAY Arthritis pain 04/20/23 [History Last Taken Unknown] ascorbate calcium (vitamin C) 500 mg tablet 500 mg PO DAILY Supplement 05/03/23 [History Last Taken Unknown] atorvastatin 10 mg tablet (Lipitor) 10 mg PO QHS Cholestrol 05/03/23 [History Last Taken Unknown] calcium carbonate 200 mg calcium (500 mg) chewable tablet (Tums) 200 mg PO BID Supplement 05/03/23 [History Last Taken Unknown] doxepin 10 mg capsule 10 mg PO QHS sleep 05/03/23 [History Last Taken Unknown] acetaminophen 325 mg tablet 650 mg (2 x 325 mg) PO Q6H PRN PRN Pain 1-10 Or Fever >100.7 #0 tabs 05/08/23 [Rx Last Taken Unknown] melatonin 3 mg tablet 3 mg PO QHS PRN PRN Insomnia #0 tabs 05/08/23 [Rx Last Taken Unknown] piperacillin-tazobactam 3.375 gram/50 mL dextrose(iso-os) IV piggyback (Zosyn) 3.375 g (56.25 mL) IV Q8H Antibiotic 9 days 05/08/23 [Rx Last Taken Unknown] acetaminophen 500 mg tablet 1,000 mg (2 x 500 mg) PO Q6H PRN PRN Pain Score 1-3 #0 tabs 05/16/23 [Rx Last Taken Unknown] ascorbic acid (vitamin C) 500 mg tablet 500 mg PO 1000 30 days #30 tabs 05/16/23 [Rx Last Taken Unknown] doxepin 10 mg capsule 10 mg PO 1999 30 days #30 caps 05/16/23 [Rx Last Taken Unknown] mirtazapine 15 mg tablet 7.5 mg (1/2 x 15 mg) PO 1999 30 days #15 tabs 05/16/23 [Rx Last Taken Unknown] pantoprazole 40 mg tablet,delayed release 40 mg PO BID 30 days #60 tabs 05/16/23 [Rx Last Taken Unknown] polysaccharide iron complex 150 mg iron capsule (Ferrex) 150 mg PO DAILY 30 days #30 caps 05/16/23 [Rx Last Taken Unknown] potassium chloride 20 mEq tablet,extended release(part/cryst) 20 meq PO DAILYCM 30 days #30 tabs 05/16/23 [Rx Last Taken Unknown] sucralfate 1 gram tablet 1 g PO BIDAC 30 days #60 tabs 05/16/23 [Rx Last Taken Unknown] tramadol 50 mg tablet 50 mg PO Q6H PRN PRN Pain Score 4-5 30 days #120 tabs 05/16/23 [Rx Last Taken Unknown] Allergy/AdvReac Type Severity Reaction Status Date / Time Iodinated Contrast Media Allergy Severe Hives Verified 05/07/23 10:54 [Iodinated Contrast- Oral and IV Dye] iodine Allergy Anaphylaxis Verified 05/07/23 10:54 Family History Mother Colon cancer Brother Myeloma Father Heart disease Surgical History History of cholecystectomy History of left heart catheterization (10/22/19) History of left hip replacement History of right hip replacement Hx of arthroscopic knee surgery Hx of bilateral inguinal hernia repair Hx of bladder repair surgery Hx of hysterectomy Hx of partial thyroidectomy Hx of umbilical hernia repair (~2009) Social History household members: spouse Smoking Status: Never smoker second hand exposure: No alcohol intake: never substance use type: does not use caffeine: Yes (very rare) what type of physical activity do you participate in: none frequency: does not exercise seatbelt use: always ROS Constitutional Constitutional: Denies chills, fever(s) or weight gain ENT HEENT: Denies headache(s), nasal congestion or nasal discharge Cardiovascular Cardiovascular: Denies chest pain or palpitations Respiratory/Chest Respiratory/Chest: Denies cough, excessive phlegm production or shortness of breath with exertion Gastrointestinal Gastrointestinal: Denies abdominal pain, nausea or vomiting Genitourinary Genitourinary: Denies dysuria Musculoskeletal Musculoskeletal: Denies joint pain or joint swelling Integumentary Integumentary: Denies rash or wounds Neurologic Neurologic: Denies focal weakness, numbness or tingling Psychiatric Psychiatric: Denies anxiety, auditory hallucinations, depression, homicidal ideation or suicidal ideation Physical Exam Const alert and no apparent distress Constitutional Narrative: Afebrile. Nontoxic. General Appearance: cooperative HEENT moist oral mucous membranes HEENT Narrative: No icterus. Eyes EOMs intact bilaterally Eyes Narrative: No icterus. Neck no lymphadenopathy Neck Narrative: No thyromegaly Resp normal respiratory effort, no retractions, no use of accessory muscles and clear to auscultation bilaterally Cardio regular rate, regular rhythm, S1 normal heart sound and S2 normal heart sound GI normal to inspection, nondistended, normoactive bowel sounds, soft to palpation, non-tender and non-distended Extremity normal to inspection and no clubbing, cyanosis or edema Skin Skin Narrative: No rashes or sores Neuro oriented x3, moves all extremities and no focal motor deficits Sensorium / Orientation: awake and alert Motor Exam: strength 5/5 throughout Psych affect normal Medical Records Data Medical Nutrition Assessment Dietitian: Malnutrition Criteria Met Start: 05/17/23 14:45 Freq: Status: Active Protocol: Document 05/17/23 14:45 AG (Rec: 05/17/23 14:45 AG Desktop) Nutrition Malnutrition Evidence of Malnutrition Exists Yes Malnutrition (severe): Acute Illness/Injury Evidenced By Suboptimal Energy Intake ( Severe),Weight Loss (Severe) Clinical Problem Acute Disease or Injury Related Malnutrition Etiology severe, acute malnutrition related to inadequate energy intake Signs/Symptoms as evidenced by unintentional 4% wt loss x 2 weeks, estimated energy needs meeting <50% of estimated energy needs Status Active Problem Recommendation Dietitian Recommendations/Changes recommend regular diet as tolerated; ensure w/ medpass when PO diet is advanced Lab / Micro Data 05/17/23 13:23 05/17/23 07:47 Labs: Laboratory Results - last 24 hr 05/17/23 07:47: WBC 8.0, RBC 2.73 L, Hgb 7.7 L, Hct 25.2 L, MCV 92.3, MCH 28.2, MCHC 30.6 L, RDW Std Deviation 61.1 H, RDW Coeff of Rashmi 18.5 H, Plt Count 378, MPV 8.6, Immature Gran % (Auto) 1.500 H, Neut % (Auto) 56.8, Lymph % (Auto) 28.5, Gilmer % (Auto) 10.2 H, Eos % (Auto) 2.6, Baso % (Auto) 0.4, Absolute Neuts (auto) 4.6, Absolute Lymphs (auto) 2.29, Nucleated RBC % 0, APTT 40.4 H, Sodium 140, Potassium 4.1, Chloride 112 H, Carbon Dioxide 23.0, Anion Gap 5, BUN 12, Creatinine 0.76, Estim Creat Clear Calc 48.79, Est GFR (MDRD) Af Amer 93, Est GFR (MDRD) Non-Af 77, BUN/Creatinine Ratio 15.7, Glucose 146 H, Lactic Acid 2.1 H*, Calcium 8.2 L, Blood Type A POSITIVE, Antibody Screen NEGATIVE, Crossmatch See Detail 05/17/23 07:47: Crossmatch See Detail 05/17/23 11:50: Lactic Acid 1.6 05/17/23 13:23: Hgb 6.3 L, Hct 20.7 L Rhythm Strip Rhythm Strip: Sinus Tach Rate: 122 Ectopy: None Assessment & Plan Assessment/Plan (1) Gastrointestinal hemorrhage: PLAN: GI bleed possibly secondary to recurrent duodenal ulcers with bleeding possibly in other places the small bowel. Also the differential diagnosis does include diverticular, hemorrhoidal neoplasia. She should undergo an upper and lower endoscopy tomorrow. She can have clear liquids up until 2 AM. She was explained alternatives, risk, benefits including understanding bleeding, infection, sepsis, perforation, need for emergent or . She will have an ASA of 3.
[2023-05-17] MEDS: DiphenhydrAMINE 50 MG/ML Syringe IV (18:48)
[2023-05-17] MEDS: Bisacodyl 5 MG Tablet 20 MG PO (18:48)
[2023-05-17 19:09] LABS: Hematocrit 25.5 % (37-47); Hemoglobin 8.3 g/dL (12.0-15.0)
[2023-05-17] MEDS: 0.9% Saline Lock 10 ML Syringe IV (19:53)
--- NOTE | 2023-05-17 22:07 | PCM.HOSP.N ---
Hospitalist Note I was contacted by radiologist and informed that this patient's CT scan was positive for enhancement of the duodenum with linear hyperdensity with additional hyperdensity in the rectum questionable for blood. Dr. Villalobos recommended NM GI Bleed Scan which will be ordered.
--- NOTE | 2023-05-17 22:09 | NM_ITS ---
We are attempting to reach an attending provider to discuss findings. An addendum with communication details will be sent when the communication is complete. CLINICAL: 82-year-old female with history of gastrointestinal hemorrhage. LABELED BLOOD POOL GASTROINTESTINAL BLEEDING STUDY COMPARISON: CTA of the abdomen pelvis report 05/17/2023 FINDINGS: Following the intravenous administration of 25.5 mCi of 99m Tc Ultratag labeled RBCs, image acquisitions of the anterior-abdomen and pelvis for a total of 60 minutes reveal: 1. A focus of increased tracer uptake is noted in the right mid abdomen at approximately 11-12 minutes post tracer injection. There is apparent antegrade progression of the radiopharmaceutical caudal and to the midline. 2. Physiologic radiopharmaceutical concentration is noted in the hepatic and splenic, cardiac and major vascular blood pool. NM/GI Bleed Scan IMPRESSION: 1. ABNORMAL 99m Tc ULTRATAG LABELED BLOOD POOL GASTROINTESTINAL BLEEDING EXAMINATION. 2. There is scintigraphic evidence of abnormal increased tracer concentration defined within the right mid abdomen with apparent antegrade progression that proceeds inferiorly and towards the midline most consistent with acute gastrointestinal hemorrhage. Electronically Signed: Tonny Alston, at 13:18 EST ,
[2023-05-17] MEDS: Mirtazapine 15 MG Tablet 7.5 MG PO (22:26)
[2023-05-17] MEDS: Doxepin Hydrochloride 10 MG Capsule PO (22:28)
[2023-05-17] MEDS: Gabapentin 300 MG Capsule PO (22:42)
[2023-05-17] MEDS: MELATONIN 3 MG TABLET PO (22:42)
[2023-05-18] VITALS (20 sets, daily range): BP systolic 92–133; BP diastolic 46–110; PULSE 85–129; RESP 14–21; TEMP 36.4–37.1; O2SAT 96–100; BMI 20.9
[2023-05-18 00:30] LABS: Hematocrit 23.8 % (37-47); Hemoglobin 7.7 g/dL (12.0-15.0)
--- NOTE | 2023-05-18 01:09 | NURSING ---
Pt's family called with update re hgb result and current plan of care
[2023-05-18] MEDS: Levothyroxine 88 MCG Tablet PO (05:32)
[2023-05-18] MEDS: Sucralfate 1 GM Tablet PO (05:33)
[2023-05-18] MEDS: Piperacil/Tazobactam 3.375 GM in 0.9% Normal Saline (50mL MB+) 50 ML IV ×3 (05:33→21:26)
[2023-05-18 05:43] LABS: Absolute Lymphocyte Count 1.93 X10^3/uL (0.83-4.51); Absolute Neutrophil Count 4.6 X10^3/uL (2.0-7.7); Basophil# 0.01 X10^3/uL; Basophil% 0.1 % (0-1); Hematocrit 20.8 % (37-47); Hemoglobin 6.8 g/dL (12.0-15.0); Lymphocyte # 1.93 X10^3/ul (0.83-4.51); Lymphocyte % 26.9 % (19-41); Mean Corp Hgb Conc 32.7 g/dL (32-36); Mean Corpuscular Hgb 30.5 pg (27.0-32.0); Mean Corpuscular Volume 93.3 fL (81-99); Mean Platelet Vol. 8.7 fl (6.2-12.0); NRBC Flagged by Analyzer 0.3 % (0-5); Neutrophil # 4.59 X10^3/uL (2.7-7.7); Neutrophil % 63.9 % (47-70); Platelet Count 315 K/mm3 (150-450); RBC Distribution Width CV 17.8 % (11.6-14.6); RBC Distribution Width SD 59.6 fl (35.1-43.9); Red Blood Count 2.23 M/mm3 (4.2-5.4); White Blood Count 7.2 K/mm3 (4.4-11.0)
--- NOTE | 2023-05-18 05:55 | EKG12_ITS ---
Test Reason : AM EKG Blood Pressure : / mmHG Vent. Rate : 096 BPM Atrial Rate : 096 BPM P-R Int : 190 ms QRS Dur : 094 ms QT Int : 366 ms P-R-T Axes : 058 -31 072 degrees QTc Int : 462 ms Normal sinus rhythm Left axis deviation Moderate voltage criteria for LVH, may be normal variant ( R in aVL , Myke product ) Inferior infarct , age undetermined Possible Anterior infarct , age undetermined Abnormal ECG When compared with ECG of 17-MAY-2023 07:21, MANUAL COMPARISON REQUIRED, DATA IS UNCONFIRMED Confirmed by Berry Schaefer ([id number]), editor in chief EDIS WEAVER ([id number]) on 05/18/2023 9:50:54 AM Referred By: Confirmed By:Berry Schaefer
[2023-05-18 05:56] LABS: International Normalized Ratio 1.4; Prothrombin Time (Protime)PT. 16.8 SECONDS (11.7-14.9)
[2023-05-18 06:16] LABS: Anion Gap 4 (5-15); BUN 24 mg/dL (7-18); BUN/Creat Ratio 29.8 RATIO (10-20); Calcium,Total 8.1 mg/dL (8.5-10.1); Chloride 115 mmol/L (98-107); EST Glomerular Filtration Rate 72 mL/min (>60); Est Glom Filt Rate - Afr Amer 88 mL/min (>60); Estimated Creatinine Clearance 48.79 ml/min; Glucose 148 mg/dL (74-106); Potassium 4.5 mmol/L (3.5-5.1); Sodium Level 143 mmol/L (136-145)
[2023-05-18] MEDS: Pantoprazole Sodium 80 MG in 0.9% Normal Saline (100mL Bag) 80 ML 10 MG CONT INF ×3 (06:21→23:53)
[2023-05-18 06:27] LABS: AST(SGOT) 22 U/L (15-37); Alanine Aminotransfer ALT/SGPT 21 U/L (13-56); Albumin, Serum 1.7 g/dL (3.2-5.0); Alkaline Phosphatase 70 U/L (45-117); Bilirubin, Direct 0.11 mg/dL (0.00-0.30); Globulin 2.8 g/dL (2.2-4.2); Protein, Total 4.5 g/dL (6.4-8.2)
[2023-05-18] MEDS: 0.9% Saline Lock 10 ML Syringe IV ×3 (06:52→21:22)
--- NOTE | 2023-05-18 08:57 | PCM.PN.HOSP ---
Reason for Visit Reason for Visit: Diagnoses Gastrointestinal hemorrhage, unspecified (05/17/23) Subjective Subjective Still with bleeding and abdominal pain. Objective Data Objective Data Vital Signs: Vital Signs Temp Pulse Resp BP Pulse Ox O2 Del Method O2 Flow Rate 36.4 C L 88 14 116/67 100 Nasal Cannula 2 05/18/23 08:06 05/18/23 08:06 05/18/23 08:06 05/18/23 08:06 05/18/23 08:06 05/18/23 08:06 05/18/23 08:06 Oxygen Flow Rate (L/min) 2 Oxygen Delivery Method Nasal Cannula Weight: 57.2 kg Body Mass Index (BMI) 20.9 Intake & Output: Intake and Output for Last 24 Hours 05/16/23 05/17/23 05/18/23 23:59 23:59 23:59 Intake Total 784.50 / 884.50 304.96 / 304.96 Balance 784.50 / 884.50 304.96 / 304.96 Medical Nutrition Assessment Dietitian: Malnutrition Criteria Met Start: 05/17/23 14:45 Freq: Status: Active Protocol: Document 05/17/23 14:45 AG (Rec: 05/17/23 14:45 AG Desktop) Nutrition Malnutrition Evidence of Malnutrition Exists Yes Malnutrition (severe): Acute Illness/Injury Evidenced By Suboptimal Energy Intake ( Severe),Weight Loss (Severe) Clinical Problem Acute Disease or Injury Related Malnutrition Etiology severe, acute malnutrition related to inadequate energy intake Signs/Symptoms as evidenced by unintentional 4% wt loss x 2 weeks, estimated energy needs meeting <50% of estimated energy needs Status Active Problem Recommendation Dietitian Recommendations/Changes recommend regular diet as tolerated; ensure w/ medpass when PO diet is advanced Lab / Micro Data 05/18/23 12:50 05/18/23 05:35 Labs: Laboratory Results - last 24 hr 05/17/23 07:47: Blood Type A POSITIVE, Crossmatch See Detail 05/17/23 07:47: Crossmatch See Detail 05/17/23 11:50: Lactic Acid 1.6 05/17/23 13:23: Hgb 6.3 L, Hct 20.7 L 05/17/23 18:40: Hgb 8.3 L, Hct 25.5 L 05/18/23 00:12: Hgb 7.7 L, Hct 23.8 L 05/18/23 05:35: WBC 7.2, RBC 2.23 L, Hgb 6.8 L, Hct 20.8 L, MCV 93.3, MCH 30.5, MCHC 32.7 D, RDW Std Deviation 59.6 H, RDW Coeff of Rashmi 17.8 H, Plt Count 315, MPV 8.7, Immature Gran % (Auto) 2.100 H, Neut % (Auto) 63.9, Lymph % (Auto) 26.9, [place] % (Auto) 7.0, Eos % (Auto) 0.0, Baso % (Auto) 0.1, Absolute Neuts (auto) 4.6, Absolute Lymphs (auto) 1.93, Nucleated RBC % 0.3, PT 16.8 H, INR 1.4, APTT 36.0, Sodium 143, Potassium 4.5, Chloride 115 H, Carbon Dioxide 24.0, Anion Gap 4 L, BUN 24 H, Creatinine 0.80, Estim Creat Clear Calc 48.79, Est GFR (MDRD) Af Amer 88, Est GFR (MDRD) Non-Af 72, BUN/Creatinine Ratio 29.8 H, Glucose 148 H, Calcium 8.1 L, Total Bilirubin 0.30, Direct Bilirubin 0.11, AST 22, ALT 21, Alkaline Phosphatase 70, Total Protein 4.5 L, Albumin 1.7 L, Globulin 2.8 Radiography Diagnostic Testing: Radiology Impression Abdomen/Pelvis CTA 05/17/23 14:41 IMPRESSION: 1. Serpiginous enhancement versus hyperdensity is identified within the lumen of the duodenum perhaps indicating a source of active extravasation is best assessed on this single phase examination. No similar findings are present on prior exam. 2. Layering hyperdensity within the rectum may be hyperdense enteric content versus hemorrhage. Additional hyperdense foci throughout the remainder of the colon are identified. Other sites of potential intraluminal hemorrhage are identified as above. Consider a tagged red blood cell scan for further evaluation. 3. Trace left pleural effusion with minimal left basilar airspace disease which may be atelectasis or pneumonia. 4. Colonic diverticulosis without evidence of acute diverticulitis. Electronically Signed: Arnold Rodrigues DO at 21:54 EST , ADDENDUM: 05/17/232215 IMPRESSION: 1. Serpiginous enhancement versus hyperdensity is identified within the lumen of the duodenum perhaps indicating a source of active extravasation is best assessed on this single phase examination. No similar findings are present on prior exam. 2. Layering hyperdensity within the rectum may be hyperdense enteric content versus hemorrhage. Additional hyperdense foci throughout the remainder of the colon are identified. Other sites of potential intraluminal hemorrhage are identified as above. Consider a tagged red blood cell scan for further evaluation. 3. Trace left pleural effusion with minimal left basilar airspace disease which may be atelectasis or pneumonia. 4. Colonic diverticulosis without evidence of acute diverticulitis. N.B. : The above Results were Read Back by Arnold Rodrigues DO to Gold Rendon MD, AA, and understanding confirmed on 05/17/2023 22:10:04 (ET). Electronically Signed: Arnold Rodrigues DO at 21:54 EST , Rhythm Strip Rhythm Strip: Sinus Tach Rate: 122 Ectopy: None Physical Exam Const alert and no apparent distress Resp normal respiratory effort, no retractions, no use of accessory muscles and clear to auscultation bilaterally Cardio regular rate, regular rhythm, S1 normal heart sound and S2 normal heart sound GI normal to inspection, nondistended, normoactive bowel sounds, soft to palpation, non-tender and non-distended Assessment & Plan Assessment/Plan (1) Gastrointestinal hemorrhage: PLAN: Plan GI bleed Patient did have hematochezia upon arrival. Hemoglobin is currently 7.7. Concerned that this could be duodenal as patient has had recent endoscopy for duodenal ulcers x 2 last month. Other possibilities could be diverticulosis, hemorrhoids. CT angiogram not performed as patient does have anaphylaxis. If patient does continue to bleed then she will need to be premedicated to undergo a CT angiogram Patient has been started on pantoprazole bolus and drip. Will continue CTA showed enhancement v hyperdensity w/i the lumen of the duodenum. Layering hyperdensity wi the rectum. Bleeding scan showed active bleeding in the right upper quadrant. Presumably it is the duodenal area that is a source of bleeding. Will wait on EGD today to determine what the next course of action. If patient can have this addressed here and she will stay but if cannot be adequately controlled or the sources elsewhere, she will need to be transferred to a tertiary facility. Family asking if she could have a phone call made now to get in front of things. I told her I did not advise that as I did not have a complete breath of information about what is all going on with her. Unfortunately without the way until the EGD can be performed today. EGD and colonoscopy today with GI. Acute blood loss anemia Hemoglobin has dropped from 8.6-7.7 within 24 hours Transfused 1 unit 05/17 and another on 05/18. 05/04 GIB Mastoiditis, subsequent visit Previously, patient was being treated for acute mastoiditis with pip-tazo. Pip-tazo is to continue through the . Placed the order for that to be continued and will have it discontinued after it has been administered 05/18. 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 Complicates care and management. Vitamin D deficiency: Continue vitamin D Cardiac amyloidosis: Continue with tafamidis VTE prophylaxis: High risk given history. Not a candidate for anticoagulation at this time. SCDs. CODE STATUS: Addressed with the patient. Patient was to be full code. Disposition: To be determined. Will have physical occupational therapy evaluate her. Case management to see. Do anticipate the patient's hospitalization extending beyond 2 days given the bleeding and her history. . Charges/Coding Visit Charges Inpatient E&M: 27654 Subs Hosp L3
[2023-05-18 13:11] LABS: Hematocrit 23.3 % (37-47); Hemoglobin 7.4 g/dL (12.0-15.0)
--- NOTE | 2023-05-18 13:36 | CASEMGMT ---
Addendum entered by Alexandria German 05/18/23 14:46: Patient did need assist today during therapy. Patient is good to go back to TCU when medically ready. Plan: [facility] TCU when medically ready. Alexandria MARTINS Original Note: SW met with patient. Introduced self and role at [facility]. SW asked patient if she plans on going home at discharge or back to TCU. Patient stated she feels she will have to return to TCU. SW let Jeane in TCU know. PT/OT will need to see patient to make sure she still requires SNF level of care. Alexandria MARTINS
[2023-05-18] MEDS: Ondansetron 4 MG/2 ML Vial IV (17:33)
[2023-05-18] MEDS: Lactated Ringers 1,000 ML 15 ML IV (18:27)
[2023-05-18 18:34] LABS: Hemoglobin 6.8 g/dL (12.0-15.0)
[2023-05-18] MEDS: Epinephrine (1 mg/ml) 1 MG/ML VIAL (19:45)
[2023-05-18] MEDS: 0.9% Normal Saline (Pres. free 10 ML Vial (19:45)
--- NOTE | 2023-05-18 20:05 | OP.CCLET_ITS ---
05/18/2023 Radha Mcrae [address] [phone] Re : Upper GI endoscopy procedure for Yris Iasydneekashmir Dear Dr. Mcrae This procedure was performed on Thursday, May 18, 2023. My impressions and recommendations are as follows: Impressions : - Normal esophagus. - Red blood in the entire stomach. - Spurting duodenal ulcer with a visible vessel. Injected. Treated with a heater probe. 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 Treated with argon plasma coagulation (APC). - No specimens collected. Recommendations : - Return patient to ICU for ongoing care. - Clear liquid diet. - Continue present medications. My findings are described in the full procedure note, which is enclosed. If I can be of further assistance, please feel free to contact me at . Sincerely, Gerard Addison, 05/18/2023 8:05:15 PM This report has been signed electronically.
--- NOTE | 2023-05-18 20:05 | OP.EGD_ITS ---
Patient Name: Yris Julio Procedure Date: 05/18/2023 7:01 PM Date of : 1940 Age: 82 Procedure: Upper GI endoscopy Indications: Acute post hemorrhagic anemia, Hematochezia, Melena Providers: Gerard Addison DO Medicines: Monitored Anesthesia Care Patient Profile: This is an 82 year old female. Refer to note in patient chart for documentation of history and physical. Patient has symptoms of acute dyspepsia and acute nausea. Complications: No immediate complications. Procedure: Pre-Anesthesia Assessment: - Prior to the procedure, a History and Physical was performed, and patient medications and allergies were reviewed. The patient is competent. The risks and benefits of the procedure and the sedation options and risks were discussed with the patient. All questions were answered and informed consent was obtained. Patient identification and proposed procedure were verified by the physician in the pre-procedure area. Mental Status Examination: alert and oriented. Airway Examination: normal oropharyngeal airway and neck mobility. Respiratory Examination: clear to auscultation. CV Examination: normal. Prophylactic Antibiotics: The patient does not require prophylactic antibiotics. Prior Anticoagulants: The patient has taken no anticoagulant or antiplatelet agents. ASA Grade Assessment: IV - A patient with severe systemic disease that is a constant threat to life. After reviewing the risks and benefits, the patient was deemed in satisfactory condition to undergo the procedure. The anesthesia plan was to use monitored anesthesia care (MAC). Immediately prior to administration of medications, the patient was re-assessed for adequacy to receive sedatives. The heart rate, respiratory rate, oxygen saturations, blood pressure, adequacy of pulmonary ventilation, and response to care were monitored throughout the procedure. The physical status of the patient was re-assessed after the procedure. After obtaining informed consent, the endoscope was passed under direct vision. Throughout the procedure, the patient's blood pressure, pulse, and oxygen saturations were monitored continuously. The colonoscope was introduced through the mouth, and advanced to the second part of duodenum. The upper GI endoscopy was accomplished without difficulty. The patient tolerated the procedure well. Scope In: 7:10:00 PM Scope Out: 7:27:03 PM Total Procedure Duration Time 0 hours 17 minutes 3 seconds Findings: The examined esophagus was normal. Red blood was found in the entire examined stomach. One spurting cratered duodenal ulcer with a visible vessel was found in the second portion of the duodenum. The lesion was 6 mm in largest dimension. Area was successfully injected with 10 mL of a 0.1 mg/mL solution of epinephrine for drug delivery. Coagulation for hemostasis using heater probe was successful. Estimated blood loss was minimal. Two 5 mm angiodysplastic lesions without bleeding were found in the second portion of the duodenum. Coagulation for bleeding prevention using argon plasma at 0.3 liters/minute and 20 russell was successful. Estimated blood loss was minimal. Impression: - Normal esophagus. - Red blood in the entire stomach. - Spurting duodenal ulcer with a visible vessel. Injected. Treated with a heater probe. 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 Treated with argon plasma coagulation (APC). - No specimens collected. Recommendation: - Return patient to ICU for ongoing care. - Clear liquid diet. - Continue present medications. Procedure Code(s): --- Professional --- 18253, Esophagogastroduodenoscopy, flexible, transoral; with control of bleeding, any method 39255, 59,51, Esophagogastroduodenoscopy, flexible, transoral; with directed submucosal injection(s), any substance CPT copyright 2021 [employer]. All rights reserved. The codes documented in this report are preliminary and upon hoop punch and coiler operator helper review may be revised to meet current compliance requirements. Gerard Addison DO 05/18/2023 8:05:15 PM This report has been signed electronically. Number of Addenda: 0 Note Initiated On: 05/18/2023 7:01 PM
--- NOTE | 2023-05-18 22:05 | NURSING ---
This RN spoke with Kalyan VÁZQUEZ from surgery, states Dr Rizvi was to chart blood, unit #4 started at approx 1930.
[2023-05-19] VITALS (24 sets, daily range): BP systolic 91–149; BP diastolic 45–94; PULSE 85–123; RESP 15–27; TEMP 36.9–38.1; O2SAT 97–100; BMI 22.5
[2023-05-19 00:08] LABS: Anion Gap 6 (5-15); BUN 38 mg/dL (7-18); BUN/Creat Ratio 45.3 RATIO (10-20); Calcium,Total 8.2 mg/dL (8.5-10.1); Chloride 118 mmol/L (98-107); Creatinine, Serum 0.84 mg/dL (0.55-1.02); EST Glomerular Filtration Rate 69 mL/min (>60); Est Glom Filt Rate - Afr Amer 84 mL/min (>60); Estimated Creatinine Clearance 46.46 ml/min; Glucose 131 mg/dL (74-106); Magnesium 1.8 mg/dL (1.6-2.6); Phosphorus 3.1 mg/dL (2.5-4.9); Potassium 4.3 mmol/L (3.5-5.1); Sodium Level 146 mmol/L (136-145)
[2023-05-19 00:16] LABS: Absolute Lymphocyte Count 1.67 X10^3/uL (0.83-4.51); Absolute Neutrophil Count 7.1 X10^3/uL (2.0-7.7); Basophil# 0.05 X10^3/uL; Basophil% 0.5 % (0-1); Eosinophil# 0.03 X10^3/uL; Eosinophils% 0.3 % (0-5); Lymphocyte # 1.67 X10^3/ul (0.83-4.51); Mean Corp Hgb Conc 33.3 g/dL (32-36); Mean Corpuscular Volume 89.9 fL (81-99); Mean Platelet Vol. 8.7 fl (6.2-12.0); Monocyte# 0.75 X10^3/uL; Monocyte% 7.6 % (0-10); NRBC Flagged by Analyzer 0.2 % (0-5); Neutrophil # 7.14 X10^3/uL (2.7-7.7); Neutrophil % 72.5 % (47-70); Platelet Count 211 K/mm3 (150-450); RBC Distribution Width CV 15.7 % (11.6-14.6); RBC Distribution Width SD 48.3 fl (35.1-43.9); Red Blood Count 3.67 M/mm3 (4.2-5.4); White Blood Count 9.9 K/mm3 (4.4-11.0)
[2023-05-19 06:11] LABS: Absolute Lymphocyte Count 1.88 X10^3/uL (0.83-4.51); Basophil# 0.04 X10^3/uL; Basophil% 0.6 % (0-1); Eosinophil# 0.21 X10^3/uL; Hematocrit 25.8 % (37-47); Hemoglobin 8.5 g/dL (12.0-15.0); Lymphocyte # 1.88 X10^3/ul (0.83-4.51); Lymphocyte % 27.1 % (19-41); Mean Corp Hgb Conc 32.9 g/dL (32-36); Mean Corpuscular Hgb 29.3 pg (27.0-32.0); Mean Platelet Vol. 8.9 fl (6.2-12.0); Monocyte# 0.62 X10^3/uL; Monocyte% 8.9 % (0-10); NRBC Flagged by Analyzer 0.4 % (0-5); Neutrophil # 4.04 X10^3/uL (2.7-7.7); Neutrophil % 58.2 % (47-70); Platelet Count 178 K/mm3 (150-450); RBC Distribution Width CV 15.9 % (11.6-14.6); RBC Distribution Width SD 48.6 fl (35.1-43.9); White Blood Count 6.9 K/mm3 (4.4-11.0)
[2023-05-19 06:26] LABS: Anion Gap 2 (5-15); BUN 32 mg/dL (7-18); BUN/Creat Ratio 45.2 RATIO (10-20); Calcium,Total 7.7 mg/dL (8.5-10.1); Chloride 117 mmol/L (98-107); Creatinine, Serum 0.71 mg/dL (0.55-1.02); EST Glomerular Filtration Rate 84 mL/min (>60); Est Glom Filt Rate - Afr Amer 102 mL/min (>60); Estimated Creatinine Clearance 48.79 ml/min; Glucose 84 mg/dL (74-106); Potassium 3.7 mmol/L (3.5-5.1); Sodium Level 145 mmol/L (136-145)
--- NOTE | 2023-05-19 06:59 | PN.HOSP_ITS ---
Reason for Visit Reason for Visit: Diagnoses Gastrointestinal hemorrhage, unspecified (05/17/23) Subjective Subjective Earlier this morning was feeling fine. Had some residual blood. This afternoon, patient was sitting up in a chair and felt diaphoretic and had large volume of blood in her stool. Objective Data Objective Data Vital Signs: Vital Signs Temp Pulse Resp BP Pulse Ox O2 Del Method O2 Flow Rate 36.9 C 117 H 18 106/70 100 Nasal Cannula 2 05/19/23 04:00 05/19/23 06:00 05/19/23 06:00 05/19/23 06:00 05/19/23 06:00 05/19/23 06:00 05/19/23 06:00 Oxygen Flow Rate (L/min) 2 Oxygen Delivery Method Nasal Cannula Weight: 61.4 kg Body Mass Index (BMI) 22.5 Intake & Output: Intake and Output for Last 24 Hours 05/17/23 05/18/23 05/19/23 23:59 23:59 23:59 Intake Total 784.50 / 884.50 527.17 / 527.17 450 / 450 Output Total 1050 / 1050 Balance 784.50 / 884.50 527.17 / -372.83 -600 / -600 Medical Nutrition Assessment Dietitian: Malnutrition Criteria Met Start: 05/17/23 14:45 Freq: Status: Active Protocol: Document 05/17/23 14:45 AG (Rec: 05/17/23 14:45 AG Desktop) Nutrition Malnutrition Evidence of Malnutrition Exists Yes Malnutrition (severe): Acute Illness/Injury Evidenced By Suboptimal Energy Intake ( Severe),Weight Loss (Severe) Clinical Problem Acute Disease or Injury Related Malnutrition Etiology severe, acute malnutrition related to inadequate energy intake Signs/Symptoms as evidenced by unintentional 4% wt loss x 2 weeks, estimated energy needs meeting <50% of estimated energy needs Status Active Problem Recommendation Dietitian Recommendations/Changes recommend regular diet as tolerated; ensure w/ medpass when PO diet is advanced Lab / Micro Data 05/19/23 13:00 05/19/23 06:00 Labs: Laboratory Results - last 24 hr 05/17/23 07:47: Crossmatch See Detail 05/17/23 07:47: Crossmatch See Detail 05/17/23 07:47: Crossmatch See Detail 05/18/23 12:50: Hgb 7.4 L, Hct 23.3 L 05/18/23 18:29: Hgb 6.8 L, Hct 23.0 L 05/18/23 23:40: WBC 9.9, RBC 3.67 L, Hgb 11.0 L, Hct 33.0 L, MCV 89.9, MCH 30.0, MCHC 33.3, RDW Std Deviation 48.3 H, RDW Coeff of Rashmi 15.7 H, Plt Count 211, MPV 8.7, Immature Gran % (Auto) 2.100 H, Neut % (Auto) 72.5 H, Lymph % (Auto) 17.0 L , [place] % (Auto) 7.6, Eos % (Auto) 0.3, Baso % (Auto) 0.5, Absolute Neuts (auto) 7.1, Absolute Lymphs (auto) 1.67, Nucleated RBC % 0.2, Sodium 146 H, Potassium 4.3, Chloride 118 H, Carbon Dioxide 22.0, Anion Gap 6, BUN 38 H, Creatinine 0.84, Estim Creat Clear Calc 46.46, Est GFR (MDRD) Af Amer 84, Est GFR (MDRD) Non-Af 69, BUN/Creatinine Ratio 45.3 H, Glucose 131 H, Calcium 8.2 L, Phosphorus 3.1, Magnesium 1.8 05/19/23 06:00: WBC 6.9, RBC 2.90 L, Hgb 8.5 L, Hct 25.8 L, MCV 89.0, MCH 29.3, MCHC 32.9, RDW Std Deviation 48.6 H, RDW Coeff of Rashmi 15.9 H, Plt Count 178, MPV 8.9, Immature Gran % (Auto) 2.200 H, Neut % (Auto) 58.2, Lymph % (Auto) 27.1, [place] % (Auto) 8.9, Eos % (Auto) 3.0, Baso % (Auto) 0.6, Absolute Neuts (auto) 4.0, Absolute Lymphs (auto) 1.88, Nucleated RBC % 0.4, Sodium 145, Potassium 3.7, Chloride 117 H, Carbon Dioxide 26.0, Anion Gap 2 L, BUN 32 H, Creatinine 0.71, Estim Creat Clear Calc 48.79, Est GFR (MDRD) Af Amer 102, Est GFR (MDRD) Non-Af 84, BUN/Creatinine Ratio 45.2 H, Glucose 84, Calcium 7.7 L Radiography Diagnostic Testing: Radiology Impression GI Bleed Scan Nuclear Medicine 05/17/23 22:09 IMPRESSION: 1. ABNORMAL 99m Tc ULTRATAG LABELED BLOOD POOL GASTROINTESTINAL BLEEDING EXAMINATION. 2. There is scintigraphic evidence of abnormal increased tracer concentration defined within the right mid abdomen with apparent antegrade progression that proceeds inferiorly and towards the midline most consistent with acute gastrointestinal hemorrhage. Electronically Signed: Tonny Alston DO at 13:18 EST , ADDENDUM: 05/18/23 1344 IMPRESSION: 1. ABNORMAL 99m Tc ULTRATAG LABELED BLOOD POOL GASTROINTESTINAL BLEEDING EXAMINATION. 2. There is scintigraphic evidence of abnormal increased tracer concentration defined within the right mid abdomen with apparent antegrade progression that proceeds inferiorly and towards the midline most consistent with acute gastrointestinal hemorrhage. N.B. : The above Results were Read Back by Tonny Alston DO to Karon Salas RN, and understanding confirmed on 05/18/2023 13:37:26 (ET). Electronically Signed: Tonny Alston DO at 13:18 EST , Rhythm Strip Rhythm Strip: Sinus Tach Rate: 122 Ectopy: None Physical Exam Const alert Constitutional Narrative: Listless. Alert. Pale Resp normal respiratory effort, no retractions, no use of accessory muscles and clear to auscultation bilaterally Cardio regular rate, regular rhythm, S1 normal heart sound and S2 normal heart sound GI normal to inspection, nondistended, normoactive bowel sounds, soft to palpation, non-tender and non-distended Extremity normal to inspection Assessment & Plan Assessment/Plan (1) Gastrointestinal hemorrhage: PLAN: Plan GI bleed * Patient did have hematochezia upon arrival. Hemoglobin is currently 7.7. * Concerned that this could be duodenal as patient has had recent endoscopy for duodenal ulcers x 2 last month. Other possibilities could be diverticulosis, hemorrhoids. CT angiogram not performed as patient does have anaphylaxis. If patient does continue to bleed then she will need to be premedicated to undergo a CT angiogram * Patient has been started on pantoprazole bolus and drip. Will continue * CTA showed enhancement v hyperdensity w/i the lumen of the duodenum. Layering hyperdensity wi the rectum. Bleeding scan showed active bleeding in the right upper quadrant. Presumably it is the duodenal area that is a source of bleeding. Will wait on EGD today to determine what the next course of action. If patient can have this addressed here and she will stay but if cannot be adequately controlled or the sources elsewhere, she will need to be transferred to a tertiary facility. Family asking if she could have a phone call made now to get in front of things. I told her I did not advise that as I did not have a complete breath of information about what is all going on with her. Unfortunately without the way until the EGD can be performed today. * EGD on the showed a spurting duodenal ulcer with visible vessel. This injected and treated with heater probe. 2 nonbleeding angiodysplastic lesions in the duodenum. Treated with argon plasma coagulation. * Patient was doing well earlier on the but then had aristides hematochezia. I notified Dr. Addison and the plan is for him to take her back down to endoscopy for further evaluation of her duodenal area. If the area cannot be addressed or if there is another area bleeding, patient may require transfer for possible IR for coil embolization. Did address this with the patient and her family at bedside. Their preference would be for the [facility] at [facility] but are also open to [facility] if that is an option. Acute blood loss anemia * Hemoglobin has dropped from 8.6-7.7 within 24 hours * Transfused 4 units. Ordered another unit of blood. Patient have 3 units on standby. Mastoiditis, subsequent visit * Previously, patient was being treated for acute mastoiditis with pip-tazo. * Completed Pip-tazo Chronic conditions * History of VTE: Enoxaparin currently being held. Given severe GI bleeds x3 just this year is anticoagulation far too risky to resume? 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 Complicates care and management. * Vitamin D deficiency: Continue vitamin D * Cardiac amyloidosis: Continue with tafamidis VTE prophylaxis: High risk given history. Not a candidate for anticoagulation at this time. SCDs. CODE STATUS: Addressed with the patient. Patient was to be full code. Greater than 75 minutes of critical care time spent addressing the patient, discussing the family as well as discussing with consultants. Ordering blood and reviewing labs. . Charges/Coding Procedures Hospitalists Procedures: 53900 Critical Care 1st Hr
[2023-05-19] MEDS: Pantoprazole Sodium 80 MG in 0.9% Normal Saline (100mL Bag) 80 ML 10 MG CONT INF ×2 (09:21→16:06)
[2023-05-19] MEDS: TAFAMIDIS 61 MG CAPSULE PO (10:16)
[2023-05-19] MEDS: Calcium Carbonate 500 MG Tablet PO (10:18)
[2023-05-19] MEDS: Metoprolol(XL)Succ 25 MG Tablet 12.5 MG PO (10:18)
[2023-05-19] MEDS: Ascorbic Acid 500 MG Tablet PO (10:20)
[2023-05-19] MEDS: Cholecalciferol (Vit D3) 125 MCG CAPSULE (5,000 UNITS) PO (10:20)
[2023-05-19 12:09] LABS: Hematocrit 21.4 % (37-47); Hemoglobin 6.9 g/dL (12.0-15.0)
[2023-05-19 13:06] LABS: Absolute Lymphocyte Count 3.06 X10^3/uL (0.83-4.51); Absolute Neutrophil Count 6.1 X10^3/uL (2.0-7.7); Basophil# 0.04 X10^3/uL; Basophil% 0.4 % (0-1); Eosinophil# 0.41 X10^3/uL; Eosinophils% 3.9 % (0-5); Hematocrit 21.6 % (37-47); Hemoglobin 7.1 g/dL (12.0-15.0); Lymphocyte # 3.06 X10^3/ul (0.83-4.51); Lymphocyte % 28.8 % (19-41); Mean Corp Hgb Conc 32.9 g/dL (32-36); Mean Corpuscular Hgb 29.3 pg (27.0-32.0); Mean Corpuscular Volume 89.3 fL (81-99); Mean Platelet Vol. 8.7 fl (6.2-12.0); Monocyte# 0.85 X10^3/uL; NRBC Flagged by Analyzer 0.3 % (0-5); Neutrophil # 6.11 X10^3/uL (2.7-7.7); Neutrophil % 57.6 % (47-70); Platelet Count 186 K/mm3 (150-450); RBC Distribution Width CV 16.5 % (11.6-14.6); RBC Distribution Width SD 50.4 fl (35.1-43.9); Red Blood Count 2.42 M/mm3 (4.2-5.4); White Blood Count 10.6 K/mm3 (4.4-11.0)
[2023-05-19] MEDS: 0.9% Normal Saline (Pres. free 10 ML Vial ×3 (14:32→14:58)
[2023-05-19] MEDS: Epinephrine (1 mg/ml) 1 MG/ML VIAL ×3 (14:32→14:58)
--- NOTE | 2023-05-19 15:17 | OP.EGD_ITS ---
Patient Name: Yris Julio Procedure Date: 05/19/2023 2:14 PM Date of : 1940 Age: 82 Procedure: Upper GI endoscopy Indications: Active gastrointestinal bleeding Providers: Gerard Addison DO Medicines: Monitored Anesthesia Care Patient Profile: This is an 82 year old female. Refer to note in patient chart for documentation of history and physical. Complications: No immediate complications. Procedure: Pre-Anesthesia Assessment: - Prior to the procedure, a History and Physical was performed, and patient medications and allergies were reviewed. The patient is competent. The risks and benefits of the procedure and the sedation options and risks were discussed with the patient. All questions were answered and informed consent was obtained. Patient identification and proposed procedure were verified by the physician in the pre-procedure area. Mental Status Examination: alert and oriented. Airway Examination: normal oropharyngeal airway and neck mobility. Respiratory Examination: clear to auscultation. CV Examination: normal. Prophylactic Antibiotics: The patient does not require prophylactic antibiotics. Prior Anticoagulants: The patient has taken no anticoagulant or antiplatelet agents. ASA Grade Assessment: II - A patient with mild systemic disease. After reviewing the risks and benefits, the patient was deemed in satisfactory condition to undergo the procedure. The anesthesia plan was to use monitored anesthesia care (MAC). Immediately prior to administration of medications, the patient was re-assessed for adequacy to receive sedatives. The heart rate, respiratory rate, oxygen saturations, blood pressure, adequacy of pulmonary ventilation, and response to care were monitored throughout the procedure. The physical status of the patient was re-assessed after the procedure. After obtaining informed consent, the endoscope was passed under direct vision. Throughout the procedure, the patient's blood pressure, pulse, and oxygen saturations were monitored continuously. The gastroscope was introduced through the mouth, and advanced to the second part of duodenum. The upper GI endoscopy was accomplished without difficulty. The patient tolerated the procedure well. Scope In: 2:27:39 PM Scope Out: 3:09:00 PM Total Procedure Duration Time 0 hours 41 minutes 21 seconds Findings: The examined esophagus was normal. Red blood was found in the gastric antrum. One spurting cratered duodenal ulcer with a visible vessel was found in the first portion of the duodenum. The lesion was 6 mm in largest dimension. Area was successfully injected with 20 mL of a 0.1 mg/mL solution of epinephrine for hemostasis. Area was tattooed with an injection of 0.1 mL of Rosenda ink. Coagulation for hemostasis using heater probe was successful. Estimated blood loss was minimal. To stop active bleeding, hemostatic spray was deployed. Several sprays were applied. There was no bleeding at the end of the procedure. Impression: - Normal esophagus. - Red blood in the gastric antrum. - Spurting duodenal ulcer with a visible vessel. Injected. Tattooed. Treated with a heater probe. hemostatic spray applied. - No specimens collected. Recommendation: - Transfer patient to another hospital. - Continue present medications. Procedure Code(s): --- Professional --- 05953, Esophagogastroduodenoscopy, flexible, transoral; with control of bleeding, any method 30823, 59,51, Esophagogastroduodenoscopy, flexible, transoral; with directed submucosal injection(s), any substance CPT copyright 2021 [employer]. All rights reserved. The codes documented in this report are preliminary and upon train brake operator review may be revised to meet current compliance requirements. Gerard Addison DO 05/19/2023 3:17:04 PM This report has been signed electronically. Number of Addenda: 0 Note Initiated On: 05/19/2023 2:14 PM
--- NOTE | 2023-05-19 15:17 | OP.CCLET_ITS ---
05/19/2023 Radha Mcrae [address] [id number] Re : Upper GI endoscopy procedure for Yris Julio Dear Dr. Mcrae This procedure was performed on Friday, May 19, 2023. My impressions and recommendations are as follows: Impressions : - Normal esophagus. - Red blood in the gastric antrum. - Spurting duodenal ulcer with a visible vessel. Injected. Tattooed. Treated with a heater probe. hemostatic spray applied. - No specimens collected. Recommendations : - Transfer patient to another hospital. - Continue present medications. My findings are described in the full procedure note, which is enclosed. If I can be of further assistance, please feel free to contact me at . Sincerely, Gerard Addison, 05/19/2023 3:17:04 PM This report has been signed electronically.
[2023-05-19] MEDS: 0.9% Saline Lock 10 ML Syringe IV (15:43)
[2023-05-19] MEDS: Ondansetron 4 MG/2 ML Vial IV (15:43)
--- NOTE | 2023-05-19 16:22 | DS.PCM_ITS ---
Providers Date of Admission: 05/17/23 Primary Care Physician: Dr. Radha Mcrae MD Consultations 05/17/23 09:37 Consult: Gastroenterology Routine Consulting Provider: Brandi Sharma Reason for Consult: GI bleed EMERGENT Consult: No MD Notified: Yes Date Notified: 05/17/23 Time Notified: 08:52 Method of Notification: ED Physician Initiated Reason For Visit: GI BLEED Diagnosis Discharge Diagnosis (1) Gastrointestinal hemorrhage: Status: Acute Code(s): K92.2 - Gastrointestinal hemorrhage, unspecified Plan GI bleed * Patient did have hematochezia upon arrival. Hemoglobin is currently 7.7. * Concerned that this could be duodenal as patient has had recent endoscopy for duodenal ulcers x 2 last month. Other possibilities could be diverticulosis, hemorrhoids. CT angiogram not performed as patient does have anaphylaxis. If patient does continue to bleed then she will need to be premedicated to undergo a CT angiogram * Patient has been started on pantoprazole bolus and drip. Will continue * CTA showed enhancement v hyperdensity w/i the lumen of the duodenum. Layering hyperdensity wi the rectum. Bleeding scan showed active bleeding in the right upper quadrant. Presumably it is the duodenal area that is a source of bleeding. Will wait on EGD today to determine what the next course of action. If patient can have this addressed here and she will stay but if cannot be adequately controlled or the sources elsewhere, she will need to be transferred to a tertiary facility. Family asking if she could have a phone call made now to get in front of things. I told her I did not advise that as I did not have a complete breath of information about what is all going on with her. Unfortunately without the way until the EGD can be performed today. * EGD on the showed a spurting duodenal ulcer with visible vessel. This injected and treated with heater probe. 2 nonbleeding angiodysplastic lesions in the duodenum. Treated with argon plasma coagulation. * Patient was doing well earlier on the but then had aristides hematochezia. Pt went back down for EGD. Had ongoing bleeding from the duodenum. He advised transfer to facility with IR. I spoke with [facility] with Dr. Bray. He accepted the patient. Pt to be transferred in stable, but critical condition. Pt ordered another 4 units of blood given severe GI bleeding. DW family. Acute blood loss anemia * Hemoglobin has dropped from 8.6-7.7 within 24 hours * Transfused 4 units. Ordered another unit of blood. Patient have 3 units on standby. Mastoiditis, subsequent visit * Previously, patient was being treated for acute mastoiditis with pip-tazo. * Completed Pip-tazo Chronic conditions * History of VTE: Enoxaparin currently being held. Given severe GI bleeds x3 just this year is anticoagulation far too risky to resume? 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 Complicates care and management. * Vitamin D deficiency: Continue vitamin D * Cardiac amyloidosis: Continue with tafamidis VTE prophylaxis: High risk given history. Not a candidate for anticoagulation at this time. SCDs. CODE STATUS: Addressed with the patient. Patient was to be full code. Greater than 75 minutes of critical care time spent addressing the patient, dis cussing the family as well as discussing with consultants. Ordering blood and reviewing labs. . Medications at Discharge Home Medications levothyroxine 88 mcg tablet 88 mcg PO DAILY THYROID 05/27/18 aspirin 81 mg tablet,delayed release (Adult Aspirin Regimen) 81 mg PO DAILY HEART HEALTH 12/12/19 tafamidis 61 mg capsule 61 mg PO DAILY HEART FAILURE 12/12/19 cholecalciferol (vitamin D3) 125 mcg (5,000 unit) capsule 125 mcg PO DAILY SUPPLEMENT 04/15/20 metoprolol succinate 25 mg tablet,extended release 24 hr (Toprol XL) 12.5 mg PO DAILY BLOOD PRESSURE 07/13/22 vitamins A,C,D-ykic-fklycl 4,296 mcg-226 mg-90 mg capsule (PreserVision AREDS) 1 cap PO BID EYE HEALTH 01/11/23 gabapentin 300 mg capsule 300 mg PO QHS NEUROPATHY 02/16/23 MAGIC MOUTH WASH (BMX) 180 mL suspension 5 ml PO Q4H PRN Mouth pain #180 mL 04/20/23 benzocaine 6 mg-menthol 10 mg lozenges 1 salvatore mucous membrane Q2H Sore throat 04/20/23 diclofenac sodium 1 % topical gel (Voltaren Arthritis Pain) 2 g topical 4X/DAY Arthritis pain 04/20/23 ascorbate calcium (vitamin C) 500 mg tablet 500 mg PO DAILY Supplement 05/03/23 atorvastatin 10 mg tablet (Lipitor) 10 mg PO QHS Cholestrol 02/01/24 calcium carbonate 200 mg calcium (500 mg) chewable tablet (Tums) 200 mg PO BID Supplement 05/03/23 doxepin 10 mg capsule 10 mg PO QHS sleep 05/03/23 acetaminophen 325 mg tablet 650 mg (2 x 325 mg) PO Q6H PRN PRN Pain 1-10 Or Fever >100.7 #0 tabs 05/08/23 melatonin 3 mg tablet 3 mg PO QHS PRN PRN Insomnia #0 tabs 05/08/23 piperacillin-tazobactam 3.375 gram/50 mL dextrose(iso-os) IV piggyback (Zosyn) 3.375 g (56.25 mL) IV Q8H Antibiotic 9 days 05/08/23 acetaminophen 500 mg tablet 1,000 mg (2 x 500 mg) PO Q6H PRN PRN Pain Score 1-3 #0 tabs 05/16/23 ascorbic acid (vitamin C) 500 mg tablet 500 mg PO 999 30 days #30 tabs 05/16/23 doxepin 10 mg capsule 10 mg PO 1999 30 days #30 caps 05/16/23 mirtazapine 15 mg tablet 7.5 mg (1/2 x 15 mg) PO 1999 30 days #15 tabs 05/16/23 pantoprazole 40 mg tablet,delayed release 40 mg PO BID 30 days #60 tabs 05/16/23 polysaccharide iron complex 150 mg iron capsule (Ferrex) 150 mg PO DAILY 30 days #30 caps 05/16/23 potassium chloride 20 mEq tablet,extended release(part/cryst) 20 meq PO DAILYCM 30 days #30 tabs 05/16/23 sucralfate 1 gram tablet 1 g PO BIDAC 30 days #60 tabs 05/16/23 tramadol 50 mg tablet 50 mg PO Q6H PRN PRN Pain Score 4-5 30 days #120 tabs 05/16/23 Hospital Course Operations None Procedures EGD Summary of Care Provided Minutes Spent on Discharge: 90 Medical Records Data Medical Nutrition Assessment Dietitian: Malnutrition Criteria Met Start: 05/17/23 14:45 Freq: Status: Active Protocol: Document 05/17/23 14:45 AG (Rec: 05/17/23 14:45 AG Desktop) Nutrition Malnutrition Evidence of Malnutrition Exists Yes Malnutrition (severe): Acute Illness/Injury Evidenced By Suboptimal Energy Intake ( Severe),Weight Loss (Severe) Clinical Problem Acute Disease or Injury Related Malnutrition Etiology severe, acute malnutrition related to inadequate energy intake Signs/Symptoms as evidenced by unintentional 4% wt loss x 2 weeks, estimated energy needs meeting <50% of estimated energy needs Status Active Problem Recommendation Dietitian Recommendations/Changes recommend regular diet as tolerated; ensure w/ medpass when PO diet is advanced Weight / BMI Weight Weight: 61.4 kg Body Mass Index (BMI) 22.5 ABG / Lab / Microbiology Data 05/19/23 13:00 05/19/23 06:00 Laboratory: Laboratory Results - last 24 hr 05/17/23 07:47: Crossmatch See Detail 05/17/23 07:47: Crossmatch See Detail 05/17/23 07:47: Crossmatch See Detail 05/18/23 18:29: Hgb 6.8 L, Hct 23.0 L 05/18/23 23:40: WBC 9.9, RBC 3.67 L, Hgb 11.0 L, Hct 33.0 L, MCV 89.9, MCH 30.0, MCHC 33.3, RDW Std Deviation 48.3 H, RDW Coeff of Rashmi 15.7 H, Plt Count 211, MPV 8.7, Immature Gran % (Auto) 2.100 H, Neut % (Auto) 72.5 H, Lymph % (Auto) 17.0 L , [place] % (Auto) 7.6, Eos % (Auto) 0.3, Baso % (Auto) 0.5, Absolute Neuts (auto) 7.1, Absolute Lymphs (auto) 1.67, Nucleated RBC % 0.2, Sodium 146 H, Potassium 4.3, Chloride 118 H, Carbon Dioxide 22.0, Anion Gap 6, BUN 38 H, Creatinine 0.84, Estim Creat Clear Calc 46.46, Est GFR (MDRD) Af Amer 84, Est GFR (MDRD) Non-Af 69, BUN/Creatinine Ratio 45.3 H, Glucose 131 H, Calcium 8.2 L, Phosphorus 3.1, Magnesium 1.8 05/19/23 06:00: WBC 6.9, RBC 2.90 L, Hgb 8.5 L, Hct 25.8 L, MCV 89.0, MCH 29.3, MCHC 32.9, RDW Std Deviation 48.6 H, RDW Coeff of Rashmi 15.9 H, Plt Count 178, MPV 8.9, Immature Gran % (Auto) 2.200 H, Neut % (Auto) 58.2, Lymph % (Auto) 27.1, [place] % (Auto) 8.9, Eos % (Auto) 3.0, Baso % (Auto) 0.6, Absolute Neuts (auto) 4.0, Absolute Lymphs (auto) 1.88, Nucleated RBC % 0.4, Sodium 145, Potassium 3.7 , Chloride 117 H, Carbon Dioxide 26.0, Anion Gap 2 L, BUN 32 H, Creatinine 0.71, Estim Creat Clear Calc 48.79, Est GFR (MDRD) Af Amer 102, Est GFR (MDRD) Non-Af 84, BUN/Creatinine Ratio 45.2 H, Glucose 84, Calcium 7.7 L 05/19/23 12:00: Hgb 6.9 L, Hct 21.4 L 05/19/23 13:00: WBC 10.6, RBC 2.42 L, Hgb 7.1 L, Hct 21.6 L, MCV 89.3, MCH 29.3, MCHC 32.9, RDW Std Deviation 50.4 H, RDW Coeff of Rashmi 16.5 H, Plt Count 186, MPV 8.7, Immature Gran % (Auto) 1.300 H, Neut % (Auto) 57.6, Lymph % (Auto) 28.8, [place] % (Auto) 8.0, Eos % (Auto) 3.9, Baso % (Auto) 0.4, Absolute Neuts (auto) 6.1, Absolute Lymphs (auto) 3.06, Nucleated RBC % 0.3 D/C Instructions Discharge Diet: - (NPO) Meaningful Use Info Meaningful Use Diagnoses (Choose all that apply): None applicable Discharge Plan Admission Admit Date/Time: 05/17/23 08:47 Primary Reason for Your Visit: GI bleed. Attending Provider: Zohaib Castaneda Primary Care Provider: Radha Mcrae Discharge Orders/Prescriptions Prescriptions: No Action aspirin [Adult Aspirin Regimen] 81 mg tablet,delayed release (DR/EC) 81 mg PO DAILY tafamidis 61 mg capsule 61 mg PO DAILY cholecalciferol (vitamin D3) 125 mcg (5,000 unit) capsule 125 mcg PO DAILY metoprolol succinate [Toprol XL] 25 mg tablet extended release 24 hr 12.5 mg PO DAILY PreserVision AREDS 4,296 mcg-226 mg-90 mg capsule 1 cap PO BID levothyroxine 88 mcg tablet 88 mcg PO DAILY benzocaine-menthol 6-10 mg lozenge 1 salvatore mucous membrane Q2H diclofenac sodium [Voltaren Arthritis Pain] 1 % gel 2 g topical 4X/DAY MAGIC MOUTH WASH (BMX) 180 mL suspension 5 ml PO Q4H PRN Qty: 180 doxepin 10 mg Capsule 10 mg PO 1999 30 Days Qty: 30 0RF acetaminophen 500 mg Tablet 1,000 mg PO Q6H PRN PRN (Reason: Pain Score 1-3) Qty: 0 0RF ascorbic acid (vitamin C) 500 mg Tablet 500 mg PO 999 30 Days Qty: 30 0RF sucralfate 1 gram Tablet 1 g PO BIDAC 30 Days Qty: 60 0RF polysaccharide iron complex [Ferrex 150] 150 mg iron Capsule 150 mg PO DAILY 30 Days Qty: 30 0RF tramadol 50 mg Tablet 50 mg PO Q6H PRN PRN (Reason: Pain Score 4-5) 30 Days Qty: 120 0RF potassium chloride 20 mEq Tablet,Er Particles/Crystals 20 meq PO DAILYCM 30 Days Qty: 30 0RF pantoprazole 40 mg Tablet,Delayed Release (Dr/Ec) 40 mg PO BID 30 Days Qty: 60 0RF mirtazapine 15 mg Tablet 7.5 mg PO 1999 30 Days Qty: 15 0RF atorvastatin [Lipitor] 10 mg tablet 10 mg PO QHS doxepin 10 mg capsule 10 mg PO QHS calcium carbonate [Tums] 200 mg calcium (500 mg) tablet,chewable 200 mg PO BID ascorbate calcium (vitamin C) 500 mg tablet 500 mg PO DAILY Zosyn in dextrose (iso-osm) 3.375 gram/50 mL piggyback 3.375 g IV Q8H 9 Days Rx Instructions: stop date 05/18/23 dx: mastoiditis weekly bmp and cbc. Fax to [phone]. Routine midline care per protocol. acetaminophen 325 mg Tablet 650 mg PO Q6H PRN PRN (Reason: Pain 1-10 Or Fever >100.7) Qty: 0 0RF melatonin 3 mg Tablet 3 mg PO QHS PRN PRN (Reason: Insomnia) Qty: 0 0RF gabapentin 300 mg capsule 300 mg PO QHS Rx Instructions: Take for 180 days Referrals / Follow Up: Radha Mcrae MD [Primary Care Provider] - Disposition Disposition (needs filled in before D/C Order can be placed): Acute Care Hospital Charges/Coding Visit Charges Inpatient E&M: 03953 Disch Hosp >30min
--- NOTE | 2023-05-19 16:48 | NURSING ---
Report given to RN at [facility] ICU
--- NOTE | 2023-05-19 17:01 | NURSING ---
PRBC [id number] started as charted. Patient then went for emergent EGD where unit ended and PRBC unit [id number] was started. It ended in ICU at 1550. PRBC unit [id number] was started as charted but was left running and sent with patient during transport.
--- NOTE | 2023-05-23 14:35 | OP.COLON_ITS ---
Patient Name: Yris Julio Procedure Date: 05/18/2023 7:27 PM Date of : 1940 Age: 82 Procedure: Colonoscopy Indications: Hematochezia Providers: Gerard Addison DO Medicines: Monitored Anesthesia Care Patient Profile: This is an 82 year old female. Refer to note in patient chart for documentation of history and physical. Patient has symptoms of acute dyspepsia and acute nausea. Last Colonoscopy: date unknown. Unable to locate last colonoscopy report. Complications: No immediate complications. Procedure: Pre-Anesthesia Assessment: - Prior to the procedure, a History and Physical was performed, and patient medications and allergies were reviewed. The patient is competent. The risks and benefits of the procedure and the sedation options and risks were discussed with the patient. All questions were answered and informed consent was obtained. Patient identification and proposed procedure were verified by the physician in the pre-procedure area. Mental Status Examination: alert and oriented. Airway Examination: normal oropharyngeal airway and neck mobility. Respiratory Examination: clear to auscultation. CV Examination: normal. Prophylactic Antibiotics: The patient does not require prophylactic antibiotics. Prior Anticoagulants: The patient has taken no anticoagulant or antiplatelet agents. ASA Grade Assessment: IV - A patient with severe systemic disease that is a constant threat to life. After reviewing the risks and benefits, the patient was deemed in satisfactory condition to undergo the procedure. The anesthesia plan was to use monitored anesthesia care (MAC). Immediately prior to administration of medications, the patient was re-assessed for adequacy to receive sedatives. The heart rate, respiratory rate, oxygen saturations, blood pressure, adequacy of pulmonary ventilation, and response to care were monitored throughout the procedure. The physical status of the patient was re-assessed after the procedure. After I obtained informed consent, the scope was passed under direct vision. Throughout the procedure, the patient's blood pressure, pulse, and oxygen saturations were monitored continuously. The colonoscope was introduced through the anus and advanced to the terminal ileum. The colonoscopy was performed without difficulty. The patient tolerated the procedure well. The quality of the bowel preparation was 90 percent obscured. Scope In: 7:32:53 PM Scope Withdrawal Time 0 hours 12 minutes 23 seconds Scope Out: 7:57:18 PM Total Procedure Duration Time 0 hours 24 minutes 25 seconds Findings: The perianal and digital rectal examinations were normal. Red blood was found in the entire colon. Multiple small and large-mouthed diverticula were found in the recto-sigmoid colon, sigmoid colon and descending colon. Impression: - Blood in the entire examined colon. - Diverticulosis in the recto-sigmoid colon, in the sigmoid colon and in the descending colon. - No specimens collected. Recommendation: - Transfer patient to another hospital. - No repeat colonoscopy due to age. - Continue present medications. Procedure Code(s): --- Professional --- 86644, Colonoscopy, flexible; diagnostic, including collection of specimen(s) by brushing or washing, when performed (separate procedure) CPT copyright 2021 [employer]. All rights reserved. The codes documented in this report are preliminary and upon evening or night nurse supervisor review may be revised to meet current compliance requirements. Gerard Addison DO 05/23/2023 2:34:45 PM This report has been signed electronically. Number of Addenda: 0 Note Initiated On: 05/18/2023 7:27 PM
--- NOTE | 2023-05-23 14:35 | OP.CCLET_ITS ---
05/23/2023 Radha Mcrae [address] [id number] Re : Colonoscopy procedure for Yris Arredondonoe Dear Dr. Mcrae This procedure was performed on Thursday, May 18, 2023. My impressions and recommendations are as follows: Impressions : - Blood in the entire examined colon. - Diverticulosis in the recto-sigmoid colon, in the sigmoid colon and in the descending colon. - No specimens collected. Recommendations : - Transfer patient to another hospital. - No repeat colonoscopy due to age. - Continue present medications. My findings are described in the full procedure note, which is enclosed. If I can be of further assistance, please feel free to contact me at . Sincerely, Gerard Addison, 05/23/2023 2:34:45 PM This report has been signed electronically.
== END 2023-05-19 16:30 | disposition short-term general hospital (02) | DRG 378 ==
LOC: ED 08:49 → PCU 08:51 → ICU 05-19 03:47
PROVIDERS: Internal Medicine; Internal Medicine Gastroenterology; Emergency Provider Emergency Medicine; PCP Internal Medicine
PROC: 0DJD8ZZ Inspection of Lower Intestinal Tract, Via Natural or Artificial Opening Endoscopic (ICD-10-PCS; CPT 45378; principal; 2023-05-18 19:45)
PROC: 0DJ08ZZ Inspection of Upper Intestinal Tract, Via Natural or Artificial Opening Endoscopic (ICD-10-PCS; CPT 43235; principal; 2023-05-19 14:30)
DX: K26.4 Chronic or unspecified duodenal ulcer with hemorrhage (principal); D62 Acute posthemorrhagic anemia; E85.4 Organ-limited amyloidosis; D68.8 Other specified coagulation defects; E85.82 Wild-type transthyretin-related (ATTR) amyloidosis; I42.2 Other hypertrophic cardiomyopathy; I43 Cardiomyopathy in diseases classified elsewhere; I10 Essential (primary) hypertension; E78.5 Hyperlipidemia, unspecified; E55.9 Vitamin D deficiency, unspecified; I25.10 Atherosclerotic heart disease of native coronary artery without angina pectoris; K31.819 Angiodysplasia of stomach and duodenum without bleeding; Z90.49 Acquired absence of other specified parts of digestive tract; Z79.01 Long term (current) use of anticoagulants; Z79.82 Long term (current) use of aspirin; Z79.899 Other long term (current) drug therapy; Z86.711 Personal history of pulmonary embolism; Z86.718 Personal history of other venous thrombosis and embolism; Z80.0 Family history of malignant neoplasm of digestive organs
CPT/HCPCS: 36415; 36592; 74174; 78278; 80048; 80076; 83605; 83735; 84100; 85014; 85018; 85025; 85610; 85730; 86850; 86900; 86901; 86920; 86922; 93005; 97162; 97165; 97530; 97802; 99284; A9560; J7030; J7040; J7120; P9016; P9017; Q9967; A4216; A4648; J2405; J3490

== ENCOUNTER 2023-05-31 15:32 | Inpatient (IN) | payer MEDICARE, OTHER, SELFPAY ==
[2023-05-31 16:07] VITALS: BP 108/66; PULSE 79; RESP 16; TEMP 35.8; O2SAT 95; BMI 24.1
[2023-05-31 16:12] VITALS: BMI 24.1
--- NOTE | 2023-05-31 16:27 | CASEMGMT ---
Social Work Pt readmitted from two previous TCU stays. SW educated pt to admitting on Day 22 of Medicare benefit, which is the start of copay days. Pt's goal is to return home with . [facility] coordinate [facility] and [facility] at [facility]. Will continue to follow. Carol Mathis, TERRENCE CHRISTIANW
[2023-05-31] MEDS: oxyCODONE 5 MG Tablet 2.5 MG PO ×2 (18:03→21:24)
--- NOTE | 2023-05-31 21:14 | PCM.HP.STD ---
[facility] - General General Date of Admission: 05/31/23 Date of Service: 05/31/23 Chief Complaint: Here for rehabilitation. HPI Narrative 05/17/2023 KEYONNA VILLAGOMEZ, is a 82 Female who presents to [facility] ED, TCU resident with bloody stools, orthostasis. GI bleed, Hemoglobin 7.7, Type + Screen, IV protonix given, Dr. Addison consulted. 05/17/2023 Admit to [facility]. CT angiogram not done 05/04 anaphylaxis. Type and Cross 1 unit PRBC but held. Zosyn IV thru 05/18/2023 for acute bilateral mastoiditis. Hold Lovenox for GI bleed. 05/17/2023 Large bloody BM, Transfused 1 unit PRBC. Type and Cross 2 units PRBC. Premedicate, order CTA A/P. 05/17/2023 CT A/P showed duodenal bleeding, colon/rectum bleeding. 05/17/2023 Tagged RBC scan right mid abdomen bleeding. 05/17/2023 Dr. Addison recomend EGD/colonoscopy. 05/18/2023 Pantoprazole bolus, then drip for UGIB. Transfuse 1 unit PRBC. Hold Lovenox. 05/18/2023 Dr. Addison EGD red blood entire stomach, spurting duodenal ulcer injected, heater probe. 2 duodenal angiodysplastic lesions treated with argon plasma coagulation. 05/19/2023 Dr. Addison EGD red blood gastric antrum, spurting duodenal ulcer with visible vessel, injected, tatooed, heater probe, hemostatic spray. Transfer to [facility]. 05/19/2023 Admit to [facility]. 05/20/2023 Exploratory laparotomy second portion of duodenum necrotic. Duodenal perforation was closed primary closure and drain in place. Patient was left with open abdomen. Hepatobiliary surgery service consulted and took over patient's care. Second take back the duodenal stump was resected with stapler and fashioned a gastrojejunostomy in a stapled fashion. Post operatively patient as intubated in the ICU and eventually extubated, transferred to regular nursing floor. CHRIS drain had high output and triglycerides were ordered. 05/25/2023 Several bloody BM's concerning for GI bleed. Transfused 2 units PRBC, Hemoglobin stabilized. 05/28/2023 CT ordered for hypotension, elevated lactic acid. Empiric ATB's starter after blood cultures, urine cultures. Chest X-ray ordered. PT/OT recommended SNF. Hold all blood thinners for 1 week, then restart Lovenox. 05/31/2023 Admit to TCU with debility, here for rehabilitation, strengthening, prior to discharge home with . [facility] Medical History Abdominal pain Abdominal pain Abnormal stress echo Acid reflux Anticoagulant long-term use Arthritis Atherosclerosis of [place] coronary artery of [place] heart without angina pectoris Back problem Cellulitis of left lower extremity Chest pain Constipation Diverticulitis of sigmoid colon DVT (deep venous thrombosis) Essential hypertension Gastrointestinal hemorrhage Heart murmur Hemorrhoids History of pulmonary embolus (PE) (~2009) History of venous thrombosis and embolism hx of APLL Hyperlipidemia Hypertension Hypertrophic cardiomyopathy Hypofibrinogenemia Hypothyroidism Kidney disease LVH (left ventricular 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 Palpitations Personal history of colonic polyps Pulmonary embolism Severe left ventricular hypertrophy Severe mitral regurgitation Thrombophlebitis of superficial veins of left lower extremity Wild-type transthyretin-related (ATTR) amyloidosis Home Medications levothyroxine 88 mcg tablet 88 mcg PO DAILY THYROID 05/27/18 [History Last Taken 04/04/23] aspirin 81 mg tablet,delayed release (Adult Aspirin Regimen) 81 mg PO DAILY HEART HEALTH 12/12/19 [History Last Taken 05/08/23] tafamidis 61 mg capsule 61 mg PO DAILY HEART FAILURE 12/12/19 [History Last Taken 05/08/23] cholecalciferol (vitamin D3) 125 mcg (5,000 unit) capsule 125 mcg PO DAILY SUPPLEMENT 04/15/20 [History Last Taken 04/04/23] metoprolol succinate 25 mg tablet,extended release 24 hr (Toprol XL) 12.5 mg PO DAILY BLOOD PRESSURE 07/13/22 [History Last Taken 05/08/23] vitamins A,C,T-bwmu-heafea 4,296 mcg-226 mg-90 mg capsule (PreserVision AREDS) 1 cap PO BID EYE HEALTH 01/11/23 [History Last Taken 04/04/23] gabapentin 300 mg capsule 300 mg PO QHS NEUROPATHY 02/16/23 [History Last Taken 05/07/23] MAGIC MOUTH WASH (BMX) 180 mL suspension 5 ml PO Q4H PRN Mouth pain #180 mL 04/20/23 [History Last Taken Unknown] benzocaine 6 mg-menthol 10 mg lozenges 1 salvatore mucous membrane Q2H Sore throat 04/20/23 [History Last Taken Unknown] diclofenac sodium 1 % topical gel (Voltaren Arthritis Pain) 2 g topical 4X/DAY Arthritis pain 04/20/23 [History Last Taken Unknown] ascorbate calcium (vitamin C) 500 mg tablet 500 mg PO DAILY Supplement 05/03/23 [History Last Taken Unknown] atorvastatin 10 mg tablet (Lipitor) 10 mg PO QHS Cholestrol 05/03/23 [History Last Taken 05/30/23] calcium carbonate 200 mg calcium (500 mg) chewable tablet (Tums) 500 mg PO BID Supplement 05/03/23 [History Last Taken Unknown] doxepin 10 mg capsule 10 mg PO QHS sleep 05/03/23 [History Last Taken Unknown] acetaminophen 325 mg tablet 650 mg (2 x 325 mg) PO Q6H PRN PRN Pain 1-10 Or Fever >100.7 #0 tabs 05/08/23 [Rx Last Taken Unknown] melatonin 3 mg tablet 3 mg PO QHS PRN PRN Insomnia #0 tabs 05/08/23 [Rx Last Taken Unknown] piperacillin-tazobactam 3.375 gram/50 mL dextrose(iso-os) IV piggyback (Zosyn) 3.375 g (56.25 mL) IV Q8H Antibiotic 9 days 05/08/23 [Rx Last Taken Unknown] acetaminophen 500 mg tablet 1,000 mg (2 x 500 mg) PO Q6H PRN PRN Pain Score 1-3 #0 tabs 05/16/23 [Rx Last Taken Unknown] ascorbic acid (vitamin C) 500 mg tablet 500 mg PO 1000 30 days #30 tabs 05/16/23 [Rx Last Taken Unknown] doxepin 10 mg capsule 10 mg PO 1999 30 days #30 caps 05/16/23 [Rx Last Taken Unknown] mirtazapine 15 mg tablet 7.5 mg (1/2 x 15 mg) PO 1999 mood/appetite 30 days #15 tabs 05/16/23 [Rx Last Taken Unknown] pantoprazole 40 mg tablet,delayed release 40 mg PO BID reflux 30 days #60 tabs 02/14/24 [Rx Last Taken Unknown] polysaccharide iron complex 150 mg iron capsule (Ferrex) 150 mg PO DAILY 30 days #30 caps 05/16/23 [Rx Last Taken Unknown] potassium chloride 20 mEq tablet,extended release(part/cryst) 20 meq PO DAILYCM supplement 30 days #30 tabs 05/16/23 [Rx Last Taken Unknown] sucralfate 1 gram tablet 1 g PO BIDAC prevent ulcers 30 days #60 tabs 05/16/23 [Rx Last Taken Unknown] tramadol 50 mg tablet 50 mg PO Q6H PRN PRN Pain Score 4-5 30 days #120 tabs 05/16/23 [Rx Last Taken Unknown] amoxicillin 875 mg-potassium clavulanate 125 mg tablet 1 tab PO BID atibiotic 05/31/23 [History Last Taken Unknown] oxycodone 5 mg capsule 2.5 mg PO Q6H pain 05/31/23 [History Last Taken Unknown] Allergy/AdvReac Type Severity Reaction Status Date / Time Iodinated Contrast Media Allergy Severe Hives Verified 05/07/23 10:54 [Iodinated Contrast- Oral and IV Dye] iodine Allergy Anaphylaxis Verified 05/07/23 10:54 Family History Mother Colon cancer Brother Myeloma Father Heart disease Surgical History History of cholecystectomy History of left heart catheterization (10/22/19) History of left hip replacement History of right hip replacement Hx of arthroscopic knee surgery Hx of bilateral inguinal hernia repair Hx of bladder repair surgery Hx of hysterectomy Hx of partial thyroidectomy Hx of umbilical hernia repair (~2009) Social History household members: spouse Smoking Status: Never smoker second hand exposure: No alcohol intake: never substance use type: does not use caffeine: Yes (very rare) what type of physical activity do you participate in: none frequency: does not exercise seatbelt use: always ROS Constitutional Constitutional: Denies chills, fever(s) or weight gain ENT HEENT: Denies headache(s), nasal congestion or nasal discharge Cardiovascular Cardiovascular: Denies chest pain or palpitations Respiratory/Chest Respiratory/Chest: Denies cough, excessive phlegm production or shortness of breath with exertion Gastrointestinal Gastrointestinal: Denies abdominal pain, nausea or vomiting Genitourinary Genitourinary: Denies dysuria Musculoskeletal Musculoskeletal: Denies joint pain or joint swelling Integumentary Integumentary: Denies rash or wounds Neurologic Neurologic: Denies focal weakness, numbness or tingling Psychiatric Psychiatric: Denies anxiety, auditory hallucinations, depression, homicidal ideation or suicidal ideation Vital Signs Vital Signs Vital Signs: 05/31/23 16:07 05/31/23 16:07 Temperature 96.5 F L Temperature Source Temporal Pulse Rate 79 Pulse Rhythm Regular Pulse Strength Normal (2+) Respiratory Rate 16 Respiratory Effort Normal Non-Labored Respiratory Depth Normal Respiratory Pattern Normal Blood Pressure 108/66 Blood Pressure Mean 80 Blood Pressure Source Monitor Blood Pressure Position Sitting Blood Pressure Location Right Arm Pulse Ox 95 Oxygen Delivery Method Room Air Room Air Weight Weight: 65.771 kg Body Mass Index (BMI) 24.1 Physical Exam Const alert General Appearance: cooperative HEENT normocephalic Eyes PERRL and EOMs intact bilaterally Neck supple, no JVD and no carotid bruits Resp normal respiratory effort, normal air movement and clear to auscultation bilaterally Cardio regular rate and regular rhythm GI normal to inspection, nondistended, normoactive bowel sounds, non-tender and non-distended GI Narrative: Midline abdominal wound open, clean. RLQ drain. Extremity normal capillary refill General Extremity: Negative for edema Skin no rashes or lesions noted General Skin Exam: no breakdown Psych affect normal Appearance: appropriate Assessment & Plan Assessment/Plan (1) Debility: (2) Gastrointestinal hemorrhage: (3) Anemia due to acute blood loss: (4) Duodenal perforation: (5) Cardiac amyloidosis: (6) Coronary artery disease: (7) Hyperlipidemia: QUALIFIERS: Hyperlipidemia type: unspecified Qualified Code(s): E78.5 - Hyperlipidemia, unspecified (8) Appetite loss: (9) Macular degeneration: (10) Insomnia: (11) Recurrent deep vein thrombosis (DVT): (12) Neuropathic pain: (13) Hypothyroidism: PLAN: Plan 82 year old female with below past medical history hospitalized for UGIB, duodenal perforation, underwent resection, admitted to TCU with debility, here for rehabilitation, strengthening, prior to discharge home with . Debility - PT/OT. Pain - Tylenol 1000mg q6 prn pain (1-10), Oxycodone 2.5mg q6h. Bowel - senna/colace 1 tablet bid prn, Magnesium citrate 300ml daily prn. Adult immunization - Administer pneumonia vaccine, covid vaccine, flu vaccine as appropriate. DVT prophylaxis - Hold, UGIB. ID - Augmentin 8785mg bid thru 06/05/2023. Iron deficiency anemia - Ferrex 150mg daily, Vitamin C 500mg daily. Hyperlipidemia - Atorvastatin 10mg qhs. Indigestion - TUMS 500mg bidcm. Vitamin D deficiency - D3 125mcg daily. Insomnia - Doxepin 10mg qhs, Melatonin 3mg qhs prn. Neuropathic pain - Gabapentin 300mg qhs. Hypothyroidism - Levothyroxine 88mcg daily. Skin irritation - Calmoseptine topical bid. Coronary artery disease - Metoprolol succinate 12.5mg daily. Duodenal ulcer - Pantoprazole 40mg bid, Sucralfate 1gm bid. Hypokalemia - KCL 20meq daily. Cardiac amyloidosis - Tafamidis 61mg daily.
[2023-05-31] MEDS: Mirtazapine 15 MG Tablet 7.5 MG PO (21:23)
[2023-05-31] MEDS: Pantoprazole Sodium 40 MG Tablet PO (21:24)
[2023-05-31] MEDS: Atorvastatin Calcium 10 MG Tablet PO (21:24)
[2023-05-31] MEDS: Calcium Carbonate 500 MG Tablet PO (21:24)
[2023-05-31] MEDS: Amox/Clavulanate 875 MG Tablet PO (21:24)
[2023-05-31] MEDS: Doxepin Hydrochloride 10 MG Capsule PO (21:24)
[2023-05-31] MEDS: Gabapentin 300 MG Capsule PO (21:24)
[2023-05-31] MEDS: Multivitamin (Healthy Eyes) Capsule 1 CAP PO (21:24)
[2023-05-31] MEDS: Miconazole Nitrate 43 GM Bottle 1 APPLIC TOPICAL (21:27)
[2023-05-31] MEDS: Menthol/Lanolin/Calamine/Znox 113 GM Tube 1 APPLIC TOPICAL (21:27)
[2023-06-01] MEDS: Levothyroxine 88 MCG Tablet PO (04:02)
[2023-06-01] MEDS: oxyCODONE 5 MG Tablet 2.5 MG PO ×4 (04:02→22:11)
[2023-06-01 06:00] LABS: Absolute Lymphocyte Count 1.13 X10^3/uL (0.83-4.51); Absolute Neutrophil Count 5.1 X10^3/uL (2.0-7.7); Basophil# 0.02 X10^3/uL; Basophil% 0.3 % (0-1); Eosinophil# 0.16 X10^3/uL; Eosinophils% 2.2 % (0-5); Hematocrit 30.9 % (37-47); Lymphocyte # 1.13 X10^3/ul (0.83-4.51); Lymphocyte % 15.6 % (19-41); Mean Corp Hgb Conc 32.4 g/dL (32-36); Mean Corpuscular Hgb 29.2 pg (27.0-32.0); Mean Corpuscular Volume 90.4 fL (81-99); Mean Platelet Vol. 8.8 fl (6.2-12.0); Monocyte# 0.72 X10^3/uL; NRBC Flagged by Analyzer 0 % (0-5); Neutrophil # 5.08 X10^3/uL (2.7-7.7); Neutrophil % 70.2 % (47-70); Platelet Count 298 K/mm3 (150-450); RBC Distribution Width CV 17.2 % (11.6-14.6); RBC Distribution Width SD 56.6 fl (35.1-43.9); Red Blood Count 3.42 M/mm3 (4.2-5.4); White Blood Count 7.2 K/mm3 (4.4-11.0)
[2023-06-01] MEDS: Sucralfate 1 GM Tablet PO ×2 (06:24→16:11)
[2023-06-01 06:25] LABS: Anion Gap 4 (5-15); BUN 7 mg/dL (7-18); BUN/Creat Ratio 11.1 RATIO (10-20); Calcium,Total 7.4 mg/dL (8.5-10.1); Chloride 109 mmol/L (98-107); Creatinine, Serum 0.63 mg/dL (0.55-1.02); EST Glomerular Filtration Rate 96 mL/min (>60); Est Glom Filt Rate - Afr Amer 116 mL/min (>60); Estimated Creatinine Clearance 48.79 ml/min; Glucose 91 mg/dL (74-106); Potassium 3.5 mmol/L (3.5-5.1); Sodium Level 137 mmol/L (136-145)
--- NOTE | 2023-06-01 07:11 | NURSING ---
100ml emptied from CHRIS drain this shift.
[2023-06-01] MEDS: Iron Polysaccharide Complex 150 MG CAPSULE PO (08:53)
[2023-06-01] MEDS: Multivitamin (Healthy Eyes) Capsule 1 CAP PO ×2 (08:53→22:11)
[2023-06-01 08:54] VITALS: BP 119/69; PULSE 117
[2023-06-01] MEDS: Metoprolol(XL)Succ 25 MG Tablet 12.5 MG PO (08:54)
[2023-06-01] MEDS: Potassium Chloride Oral Tablet 20 MEQ PO (08:55)
[2023-06-01] MEDS: Ascorbic Acid 500 MG Tablet PO (08:55)
[2023-06-01] MEDS: Furosemide 40 MG Tablet PO (08:55)
[2023-06-01] MEDS: Pantoprazole Sodium 40 MG Tablet PO ×2 (08:55→22:11)
[2023-06-01] MEDS: Amox/Clavulanate 875 MG Tablet PO ×2 (08:56→22:12)
[2023-06-01] MEDS: Calcium Carbonate 500 MG Tablet PO ×2 (08:56→17:26)
[2023-06-01] MEDS: Menthol/Lanolin/Calamine/Znox 113 GM Tube 1 APPLIC TOPICAL ×2 (08:56→22:12)
[2023-06-01] MEDS: Miconazole Nitrate 43 GM Bottle 1 APPLIC TOPICAL ×2 (08:56→22:12)
[2023-06-01] MEDS: TAFAMIDIS 61 MG CAPSULE PO (08:58)
[2023-06-01] MEDS: Cholecalciferol (Vit D3) 125 MCG CAPSULE (5,000 UNITS) PO (08:59)
--- NOTE | 2023-06-01 09:03 | NURSING ---
Business Architect note; Activity Asset: Earnestine Arndt remains independent in her choice of daily activities. She has returned to TCU for continued therapy. her family is very involved in her care and visit daily along w/[employer]. She has word search puzzles, books, her bible and will read the newspaper when not visiting w/family or in therapy. She did state she welcomes visit w/our armored machine operator and therapy dog when available. Staff will remind her of weekly activities and respect her right to say no.
[2023-06-01] MEDS: Tuberculin,Purif.prot.deriv. 50 TU/ML Vial 0.100000000000000006 ML ID (10:19)
[2023-06-01 13:30] VITALS: BP 108/67; PULSE 108; RESP 20; TEMP 36.4; O2SAT 98
--- NOTE | 2023-06-01 14:18 | WOUNDNOTE ---
wound photo: abdomen
--- NOTE | 2023-06-01 15:05 | PHA.CONS_ITS ---
TCU RX Drug Regimen Review Subjective/Objective Subjective/Objective: Subjective: 82 YOF re-admitted to TCU 05/31/23 s/p GI bleed requiring hospitalization. Hospitalization was significant for bleeding, spurting duodenal ulcer requiring intervention and ultimate transfer to a tertiary facility. Hospi aury course further complicated by ex lap which showed a portion of the duodenum necrotic requiring surgical intervention. During patient's hospitalization she also received several units of PRBC which is noted. Patient re-admitted to TCU for strengthening and rehabilitation prior to discharge home where she resides with her . Objective: Allergies Iodinated Contrast Media [Iodinated Contrast- Oral and IV Dye] Allergy (Severe, Verified 05/07/23 10:54) Hives iodine Allergy (Verified 05/07/23 10:54) Anaphylaxis Current Medications Generic Name Dose Route Start Last Admin Trade Name Freq PRN Reason Stop Dose Admin Acetaminophen 1,000 mg 05/31/23 16:19 Acetaminophen 500 Mg Tablet PO Q6H PRN PRN Pain 1-10 Or Fever >100.7 Amoxicillin/Clavulanate Potassium 875 mg 05/31/23 22:00 06/01/23 08:56 Amox/Clavulanate 875 Mg Tablet PO 06/05/23 22:01 875 mg BID STEF Administration Ascorbic Acid 500 mg 06/01/23 10:00 06/01/23 08:55 Ascorbic Acid 500 Mg Tablet PO 500 mg DAILY STEF Administration Atorvastatin Calcium 10 mg 05/31/23 22:00 05/31/23 21:24 Atorvastatin Calcium 10 Mg Tablet PO 10 mg QHS STEF Administration Calamine/Phenol 1 applic 05/31/23 22:00 06/01/23 08:56 Menthol/Lanolin/Calamine/Znox 113 Gm Tube TOPICAL 1 applic BID STEF Administration Protocol Calcium Carbonate 500 mg 05/31/23 22:00 06/01/23 08:56 Calcium Carbonate 500 Mg Tablet PO 500 mg BIDCM STEF Administration Cholecalciferol 125 mcg 06/01/23 10:00 06/01/23 08:59 Cholecalciferol (Vit D3) 125 Mcg Capsule (5,000 Units) PO 125 mcg DAILY STEF Administration Doxepin HCl 10 mg 05/31/23 22:00 05/31/23 21:24 Doxepin Hydrochloride 10 Mg Capsule PO 10 mg QHS STEF Administration Furosemide 40 mg 06/01/23 10:00 06/01/23 08:55 Furosemide 40 Mg Tablet PO 06/06/23 10:01 40 mg DAILY STEF Administration Protocol Gabapentin 300 mg 05/31/23 22:00 05/31/23 21:24 Gabapentin 300 Mg Capsule PO 300 mg QHS STEF Administration Levothyroxine Sodium 88 mcg 06/01/23 06:00 06/01/23 04:02 Levothyroxine 88 Mcg Tablet PO 88 mcg DAILY@0600 STEF Administration Magnesium Citrate 300 ml 05/31/23 21:38 Magnesium Citrate 300 Ml PO DAILY PRN CONSTIPATION Melatonin 3 mg 05/31/23 16:04 Melatonin 3 Mg Tablet PO QHS PRN PRN Insomnia Metoprolol Succinate 12.5 mg 06/01/23 10:00 06/01/23 08:54 Metoprolol(Xl)Succ 25 Mg Tablet PO 12.5 mg DAILY STEF Administration Protocol Miconazole Nitrate 1 applic 05/31/23 22:00 06/01/23 08:56 Miconazole Nitrate 43 Gm Bottle TOPICAL 1 applic BID [facility] Administration Protocol Mirtazapine 7.5 mg 05/31/23 20:00 05/31/23 21:23 Mirtazapine 15 Mg Tablet PO 7.5 mg 2000 [facility] Administration Multivitamins/Minerals 1 cap 05/31/23 22:00 06/01/23 08:53 Multivitamin (Healthy Eyes) Capsule PO 1 cap BID STEF Administration Oxycodone HCl 2.5 mg 05/31/23 16:15 06/01/23 09:38 Oxycodone 5 Mg Tablet PO 2.5 mg Q6H STEF Administration Pantoprazole Sodium 40 mg 05/31/23 22:00 06/01/23 08:55 Pantoprazole Sodium 40 Mg Tablet PO 40 mg BID STEF Administration Polysaccharide Iron Complex 150 mg 06/01/23 10:00 06/01/23 08:53 Iron Polysaccharide Complex 150 Mg Capsule PO 150 mg DAILY STEF Administration Potassium Chloride 20 meq 06/01/23 08:00 06/01/23 08:55 Potassium Chloride Oral Tablet 20 Meq PO 20 meq DAILYCM STEF Administration Potassium Chloride 20 meq 06/01/23 08:00 06/01/23 08:55 Potassium Chloride Oral Tablet 20 Meq PO 06/06/23 08:01 Not Given DAILYCM [facility] Senna/Docusate Sodium 1 tablet 05/31/23 21:38 Senna/Docusate Sodium 1 Tablet PO BID PRN PRN Constipation Sucralfate 1 gm 06/01/23 07:00 06/01/23 06:24 Sucralfate 1 Gm Tablet PO 1 gm BIDAC STEF Administration Tuberculin PPD 0.1 ml 06/08/23 10:00 Tuberculin,Purif.Prot.Deriv. 50 Tu/Ml Vial ID 06/08/23 10:01 X1 ONE Problem List (Updated 05/31/23 @ 21:[address] David Avery MD) Recurrent deep vein thrombosis (DVT) (Acute) Macular degeneration (Acute) Appetite loss (Acute) Duodenal perforation (Acute) Gastrointestinal hemorrhage (Acute) Anemia due to acute blood loss (Acute) Insomnia (Acute) Cardiac amyloidosis (Acute) Coronary artery disease (Acute) Neuropathic pain (Acute) Debility (Acute) Hyperlipidemia (Chronic) Hypothyroidism (Chronic) Vital Signs Temp Pulse Resp BP Pulse Ox O2 Del Method 97.6 F L 108 H 20 H 108/67 98 Room Air 06/01/23 13:30 06/01/23 13:30 06/01/23 13:30 06/01/23 13:30 06/01/23 13:30 06/01/23 13:30 Oxygen Delivery Method Room Air Weight: 65.771 kg Body Mass Index (BMI) 24.1 Sodium 137 mmol/L (136-145) 06/01/23 05:35 Potassium 3.5 mmol/L (3.5-5.1) 06/01/23 05:35 Chloride 109 mmol/L (98-107) H 06/01/23 05:35 Carbon Dioxide 24.0 mmol/L (21.0-32.0) 06/01/23 05:35 Anion Gap 4 (5-15) L 06/01/23 05:35 BUN 7 mg/dL (7-18) 06/01/23 05:35 Creatinine 0.63 mg/dL (0.55-1.02) 06/01/23 05:35 Est GFR (MDRD) Af Amer 116 mL/min (>60) 06/01/23 05:35 Est GFR (MDRD) Non-Af 96 mL/min (>60) 06/01/23 05:35 BUN/Creatinine Ratio 11.1 RATIO (10-20) 06/01/23 05:35 Glucose 91 mg/dL (74-106) 06/01/23 05:35 Assessment/Plan: 1. Pain: acetaminophen 1000mg PO Q6H PRN pain 1-10, Oxycodone 2.5mg PO Q6h. Please continue to monitor for increased pain, PRN usage, constipation, oversedation. - 2. Bowel: senna/docusate 1T PO BID. Please continue to monitor for constipation, diarrhea and PRN usage. Last documented bowel movement 05/06/23. 3. Thrush: nystatin 500,000units/5mL PO 4x/day thru 05/18/23, Cepacol 1 lozenge MM Q2H PRN sore throat and BMX 5mL PO Q4H PRN mouth pain. Resident has not had any Cepacol or BMX doses. Please continue to monitor for improvement in thrush, sore throat, mouth pain and PRN usage. 4. Acute bilateral mastoiditis: piperacillin/tazobactam 3.375gm IV Q8 thru 05/17/23. Please continue to monitor for S/S of infection, diarrhea and renal function. ID is consulted. 5. CAD: metoprolol succinate 12.5mg PO daily and aspirin 81mg PO dailycm. Please continue to monitor BP (last 138/73), HR (last 84), S/S of bleeding and hemoglobin (last 7.8g/dL). 6. Hyperlipidemia: atorvastatin 10mg PO QHS. Please continue to monitor lipid panel (last 04/26/23), LFTs (last 05/06/23) and muscle pain. 7. Hypothyroidism: levothyroxine 88mcg PO daily. Please continue to monitor TSH (last 05/05/23), T4 (last 05/05/23) and S/S of hypo/hyperthyroidism. 8. Duodenal ulcer: pantoprazole 40mg PO BID thru 07/23/23 and sucralfate 1gm PO BIDAC thru 06/04/23. Please continue to monitor for stomach pain, bleeding, constipation, diarrhea (BEERs medication) and magnesium (last 2.1mg/dL 05/04/23). 9. Cardiac amyloidosis: Tafamidis 61mg PO daily. Please continue to monitor. 10. Nausea: ondansetron 4mg PO Q8H PRN nausea. Resident has not had any doses. Please continue to monitor for nausea and PRN usage. 11. Vitamin D deficiency/macular degeneration: cholecalciferol 125mcg PO daily and healthy eyes 1C PO BID. Resident does not have a vitamin D level in the chart. Please consider ordering a vitamin D level if clinically appropriate. 12. Iron deficiency anemia: Ferrex 150mg PO daily and ascorbic acid 500mg PO daily. Please continue to monitor hemoglobin (7.8g/dL), iron studies (last 05/05/23), constipation and dark stools. 13. Calcium deficiency: calcium carbonate 200mg PO BIDCM. Please continue to monitor calcium levels (last 8.1mg/dL). 14. Recurrent DVT: enoxaparin 60mg PO QHS. Please continue to monitor for S/S of bleeding, hemoglobin, platelets (last 277,000) and renal function. 15. Urinary retention: tamsulosin 0.4mg PO daily. Please continue to monitor BP and S/S of urinary retention. Assessment/Plan for indications treated with psychotropic medications: 1. Neuropathic pain: gabapentin 300mg PO QHS. GDR not appropriate as this medication is being used for neuropathic pain. Please continue to monitor for pain, confusion, renal function, fall/fractures (BEERs medication). 2. Insomnia: doxepin 10mg PO 2000 and melatonin 3mg PO QHS PRN insomnia. Resident has had 1 dose of melatonin. Please see physician note regarding GDR. Please continue to monitor for excessive drowsiness, anticholinergic side effects (BEERs medications), BP (BEERs medication for orthostatic hypotension), dementia/delirium (BEERs medication), falls/fractures (BEERs medication) and PRN usage. 3. Appetite loss: mirtazapine 7.5mg PO 2000. Please see physician note regarding GDR. Per global program manager note, resident consuming <50% of meals. Please continue to monitor sodium (last 136mmol/L), appetite and drowsiness. Medical chart and medication regimen reviewed. The following medication irregularities or issues were identified: 1. Cholecalciferol 125mcg PO daily. Resident does not have a vitamin D level in the chart. Please consider ordering a vitamin D level if clinically appropriate
--- NOTE | 2023-06-01 15:05 | PCM.PN.DRR ---
TCU RX Drug Regimen Review Subjective/Objective Subjective/Objective: Subjective: 82 YOF re-admitted to TCU 05/31/23 s/p GI bleed requiring hospitalization. Hospitalization was significant for bleeding, spurting duodenal ulcer requiring intervention and ultimate transfer to a tertiary facility. Hospital course further complicated by ex lap which showed a portion of the duodenum necrotic requiring surgical intervention. During patient's hospitalization she also received several units of PRBC which is noted. Patient re-admitted to TCU for strengthening and rehabilitation prior to discharge home where she resides with her . Objective: Allergies Iodinated Contrast Media [Iodinated Contrast- Oral and IV Dye] Allergy (Severe, Verified 05/07/23 10:54) Hives iodine Allergy (Verified 05/07/23 10:54) Anaphylaxis Current Medications Generic Name Dose Route Start Last Admin Trade Name Freq PRN Reason Stop Dose Admin Acetaminophen 1,000 mg 05/31/23 16:19 Acetaminophen 500 Mg Tablet PO Q6H PRN PRN Pain 1-10 Or Fever >100.7 Amoxicillin/Clavulanate Potassium 875 mg 05/31/23 22:00 06/01/23 08:56 Amox/Clavulanate 875 Mg Tablet PO 06/05/23 22:01 875 mg BID STEF Administration Ascorbic Acid 500 mg 06/01/23 10:00 06/01/23 08:55 Ascorbic Acid 500 Mg Tablet PO 500 mg DAILY STEF Administration Atorvastatin Calcium 10 mg 05/31/23 22:00 05/31/23 21:24 Atorvastatin Calcium 10 Mg Tablet PO 10 mg QHS STEF Administration Calamine/Phenol 1 applic 05/31/23 22:00 06/01/23 08:56 Menthol/Lanolin/Calamine/Znox 113 Gm Tube TOPICAL 1 applic BID STEF Administration Protocol Calcium Carbonate 500 mg 05/31/23 22:00 06/01/23 08:56 Calcium Carbonate 500 Mg Tablet PO 500 mg BIDCM STEF Administration Cholecalciferol 125 mcg 06/01/23 10:00 06/01/23 08:59 Cholecalciferol (Vit D3) 125 Mcg Capsule (5,000 Units) PO 125 mcg DAILY STEF Administration Doxepin HCl 10 mg 05/31/23 22:00 05/31/23 21:24 Doxepin Hydrochloride 10 Mg Capsule PO 10 mg QHS STEF Administration Furosemide 40 mg 06/01/23 10:00 06/01/23 08:55 Furosemide 40 Mg Tablet PO 06/06/23 10:01 40 mg DAILY STEF Administration Protocol Gabapentin 300 mg 05/31/23 22:00 05/31/23 21:24 Gabapentin 300 Mg Capsule PO 300 mg QHS STEF Administration Levothyroxine Sodium 88 mcg 06/01/23 06:00 06/01/23 04:02 Levothyroxine 88 Mcg Tablet PO 88 mcg DAILY@0600 STEF Administration Magnesium Citrate 300 ml 05/31/23 21:38 Magnesium Citrate 300 Ml PO DAILY PRN CONSTIPATION Melatonin 3 mg 05/31/23 16:04 Melatonin 3 Mg Tablet PO QHS PRN PRN Insomnia Metoprolol Succinate 12.5 mg 06/01/23 10:00 06/01/23 08:54 Metoprolol(Xl)Succ 25 Mg Tablet PO 12.5 mg DAILY [facility] Administration Protocol Miconazole Nitrate 1 applic 05/31/23 22:00 06/01/23 08:56 Miconazole Nitrate 43 Gm Bottle TOPICAL 1 applic BID [facility] Administration Protocol Mirtazapine 7.5 mg 05/31/23 20:00 05/31/23 21:23 Mirtazapine 15 Mg Tablet PO 7.5 mg 2000 [facility] Administration Multivitamins/Minerals 1 cap 05/31/23 22:00 06/01/23 08:53 Multivitamin (Healthy Eyes) Capsule PO 1 cap BID STEF Administration Oxycodone HCl 2.5 mg 05/31/23 16:15 06/01/23 09:38 Oxycodone 5 Mg Tablet PO 2.5 mg Q6H STEF Administration Pantoprazole Sodium 40 mg 05/31/23 22:00 06/01/23 08:55 Pantoprazole Sodium 40 Mg Tablet PO 40 mg BID STEF Administration Polysaccharide Iron Complex 150 mg 06/01/23 10:00 06/01/23 08:53 Iron Polysaccharide Complex 150 Mg Capsule PO 150 mg DAILY STEF Administration Potassium Chloride 20 meq 06/01/23 08:00 06/01/23 08:55 Potassium Chloride Oral Tablet 20 Meq PO 20 meq DAILYCM [facility] Administration Potassium Chloride 20 meq 06/01/23 08:00 06/01/23 08:55 Potassium Chloride Oral Tablet 20 Meq PO 06/06/23 08:01 [facility] Senna/Docusate Sodium 1 tablet 05/31/23 21:38 Senna/Docusate Sodium 1 Tablet PO BID PRN PRN Constipation Sucralfate 1 gm 06/01/23 07:00 06/01/23 06:24 Sucralfate 1 Gm Tablet PO 1 gm BIDAC STEF Administration Tuberculin PPD 0.1 ml 06/08/23 10:00 Tuberculin,Purif.Prot.Deriv. 50 Tu/Ml Vial ID 06/08/23 10:01 X1 ONE Problem List (Updated 05/31/23 @ 21:[address] David Avery MD) Recurrent deep vein thrombosis (DVT) (Acute) Macular degeneration (Acute) Appetite loss (Acute) Duodenal perforation (Acute) Gastrointestinal hemorrhage (Acute) Anemia due to acute blood loss (Acute) Insomnia (Acute) Cardiac amyloidosis (Acute) Coronary artery disease (Acute) Neuropathic pain (Acute) Debility (Acute) Hyperlipidemia (Chronic) Hypothyroidism (Chronic) Vital Signs Temp Pulse Resp BP Pulse Ox O2 Del Method 97.6 F L 108 H 20 H 108/67 98 Room Air 06/01/23 13:30 06/01/23 13:30 06/01/23 13:30 06/01/23 13:30 06/01/23 13:30 06/01/23 13:30 Oxygen Delivery Method Room Air Weight: 65.771 kg Body Mass Index (BMI) 24.1 Sodium 137 mmol/L (136-145) 06/01/23 05:35 Potassium 3.5 mmol/L (3.5-5.1) 06/01/23 05:35 Chloride 109 mmol/L (98-107) H 06/01/23 05:35 Carbon Dioxide 24.0 mmol/L (21.0-32.0) 06/01/23 05:35 Anion Gap 4 (5-15) L 06/01/23 05:35 BUN 7 mg/dL (7-18) 06/01/23 05:35 Creatinine 0.63 mg/dL (0.55-1.02) 06/01/23 05:35 Est GFR (MDRD) Af Amer 116 mL/min (>60) 06/01/23 05:35 Est GFR (MDRD) Non-Af 96 mL/min (>60) 06/01/23 05:35 BUN/Creatinine Ratio 11.1 RATIO (10-20) 06/01/23 05:35 Glucose 91 mg/dL (74-106) 06/01/23 05:35 Assessment/Plan: 1. Pain: acetaminophen 1000mg PO Q6H PRN pain 1-10, Oxycodone 2.5mg PO Q6h. Please continue to monitor for increased pain, PRN usage, constipation, oversedation. - The patient has not gotten any PRN medication doses at this time. Appears pain is managed at this time. 2. Bowel: senna/docusate 1T PO BID PRN, magnesium Citrate 300mL Daily PRN. Please continue to monitor for constipation, diarrhea and PRN usage. - The patient has not had a BM since admission (<24hrs ago). Please consider giving PRN medications if not BM in the next 48hrs, thank you. 4. CAD: metoprolol succinate 12.5mg PO daily. Please continue to monitor BP (last 108/67), HR (last 108). 5. Hyperlipidemia: atorvastatin 10mg PO QHS. Please continue to monitor lipid panel (last 04/26/23), LFTs (last 05/18/23) and muscle pain. 6. Hypothyroidism: levothyroxine 88mcg PO daily. Please continue to monitor TSH (last 05/04/23), T4 (last 05/04/23) and S/S of hypo/hyperthyroidism. 7. Duodenal ulcer: pantoprazole 40mg PO BID and sucralfate 1gm PO BIDAC. Please continue to monitor for stomach pain, bleeding, constipation, diarrhea (BEERs medication) and magnesium (last 1.8mg/dL 05/18/23). 8. Cardiac amyloidosis: Tafamidis 61mg PO daily. Please continue to monitor. 9. Vitamin D deficiency/macular degeneration: cholecalciferol 125mcg PO daily and healthy eyes 1C PO BID. Last Vitamin D level 78.5 ng/mL on 05/10/23. 10. Iron deficiency anemia: Ferrex 150mg PO daily and ascorbic acid 500mg PO daily. Please continue to monitor hemoglobin (10g/dL), iron studies (last 05/04/23), constipation and dark stools. 11. Calcium deficiency: calcium carbonate 500mg PO BIDCM. Please continue to monitor calcium levels (last 7.4 mg/dL). 12. Recurrent DVT: Not currently on any chemoprophylaxis d/t recent GI bleed. 13. Skin Integrity: Desenex powder topically BID, Calmoseptine topically BID. Please continue to monitor for skin irritation, skin redness, ulcer formation. 14. Edema: Lasix 40mg PO Daily, KCl 40meq PO Daily thru 06/05 then 20meq PO Daily thereafter. Please continue to monitor for improvement in edema, I/O, potassium levels (last 3.5 on 06/01/23). 15. Post-op infection prophylaxis/ ID: Augmentin 875mg PO BID thru 06/05/23. Please continue to monitor for S/S infection, diarrhea, nausea/ GI upset. Assessment/Plan for indications treated with psychotropic medications: 1. Neuropathic pain: gabapentin 300mg PO QHS. GDR not appropriate as this medication is being used for neuropathic pain. Please continue to monitor for pain, confusion, renal function, fall/fractures (BEERs medication). 2. Insomnia: doxepin 10mg PO QHS and melatonin 3mg PO QHS PRN insomnia. Please consider a GDR by 11/2023 if clinically indicated, thank you. Please continue to monitor for excessive drowsiness, anticholinergic side effects (BEERs medications), BP (BEERs medication for orthostatic hypotension), dementia/delirium (BEERs medication), falls/fractures (BEERs medication) and PRN usage. Medical chart and medication regimen reviewed. The following medication irregularities or issues were identified: 1. Insomnia: doxepin 10mg PO QHS and melatonin 3mg PO QHS PRN insomnia. Please consider a GDR by 11/2023 if clinically indicated, thank you. 2. Patient currently on Remeron 7.5mg PO QHS. No indication for medication listed in chart. Please evaluate use for indication, thank you. (NOTE: pt was on this at previous admission for appetite loss) Date Date of Note:: 06/01/23
--- NOTE | 2023-06-01 16:10 | CHAPLAIN ---
Type of Pastoral Visit _x__ Initial Visit ___ Follow-up Visit ___ On-call Visit ___ General Patient Visit ___ Spiritual Assessment ___ Family Conference ___ Bereavement ___ Rapid Response ___ Code Blue ___ Other (describe below) Pastoral Care Referral From _x__ Patient ___ Family ___ Nurse ___ Physician ___ Windows Server Specialist ___ Auto Former Machine Operator ___ Other (describe below) Sacrament/Intervention _x__ Active listening ___ Anointing ___ Catholic ___ Bereavement ___ Communion ___ Christal exploration ___ ___ Life review _x__ Prayer ___ Reconciliation ___ Sacrament of Sick _x__ Supportive presence ___ Wedding ___ Other (describe below) Pastoral Comments patient was seen before in previous and recent visits; pt was at [facility] and has now come back to [facility]; pt is welcoming and expresses gladness of the support; pt does admit that she is pretty tired today which is first day back; kept the visit brief; prayer was greatly welcomed
[2023-06-01] MEDS: Acetaminophen 500 MG Tablet 1000 MG PO (17:28)
[2023-06-01] MEDS: Mirtazapine 15 MG Tablet 7.5 MG PO (19:43)
[2023-06-01] MEDS: Gabapentin 300 MG Capsule PO (22:11)
[2023-06-01] MEDS: Atorvastatin Calcium 10 MG Tablet PO (22:12)
[2023-06-01] MEDS: Doxepin Hydrochloride 10 MG Capsule PO (22:12)
[2023-06-02] MEDS: Levothyroxine 88 MCG Tablet PO (04:51)
[2023-06-02] MEDS: oxyCODONE 5 MG Tablet 2.5 MG PO ×2 (04:51→10:15)
[2023-06-02] MEDS: Sucralfate 1 GM Tablet PO ×2 (06:08→16:08)
[2023-06-02] MEDS: Multivitamin (Healthy Eyes) Capsule 1 CAP PO ×2 (08:49→21:14)
[2023-06-02] MEDS: TAFAMIDIS 61 MG CAPSULE PO (08:52)
[2023-06-02 08:56] VITALS: BP 104/66; PULSE 96
[2023-06-02] MEDS: Furosemide 40 MG Tablet PO (08:56)
[2023-06-02] MEDS: Metoprolol(XL)Succ 25 MG Tablet 12.5 MG PO (08:56)
[2023-06-02] MEDS: Cholecalciferol (Vit D3) 125 MCG CAPSULE (5,000 UNITS) PO (08:57)
[2023-06-02] MEDS: Amox/Clavulanate 875 MG Tablet PO ×2 (08:57→21:13)
[2023-06-02] MEDS: Pantoprazole Sodium 40 MG Tablet PO ×2 (08:57→21:14)
[2023-06-02] MEDS: Ascorbic Acid 500 MG Tablet PO (08:57)
[2023-06-02] MEDS: Potassium Chloride Oral Tablet 20 MEQ PO ×2 (08:57)
[2023-06-02] MEDS: Calcium Carbonate 500 MG Tablet PO ×2 (08:57→17:37)
[2023-06-02] MEDS: Iron Polysaccharide Complex 150 MG CAPSULE PO (08:58)
[2023-06-02] MEDS: Menthol/Lanolin/Calamine/Znox 113 GM Tube 1 APPLIC TOPICAL ×2 (09:06→21:22)
[2023-06-02] MEDS: Miconazole Nitrate 43 GM Bottle 1 APPLIC TOPICAL ×2 (09:06→21:22)
[2023-06-02 09:08] VITALS: BP 104/66; PULSE 96
[2023-06-02 10:40] VITALS: PULSE 93; RESP 16; O2SAT 93
[2023-06-02 14:25] VITALS: BP 92/62; PULSE 91; RESP 18; TEMP 36.6; O2SAT 99
--- NOTE | 2023-06-02 15:11 | NURSING ---
PT REPORTING DIZZINESS. VITALS MANUALLY, . REPORTED TO RN.
[2023-06-02 15:15] VITALS: BP 90/54
--- NOTE | 2023-06-02 18:03 | NURSING ---
dr novak updated on kdur orders & K+ level, new order to change potassium to just 20meq daily
[2023-06-02] MEDS: Mirtazapine 15 MG Tablet 7.5 MG PO (21:13)
[2023-06-02] MEDS: Atorvastatin Calcium 10 MG Tablet PO (21:14)
[2023-06-02] MEDS: Doxepin Hydrochloride 10 MG Capsule PO (21:15)
[2023-06-02] MEDS: Gabapentin 300 MG Capsule PO (21:17)
[2023-06-03] MEDS: oxyCODONE 5 MG Tablet 2.5 MG PO ×2 (03:27→21:24)
[2023-06-03 05:06] LABS: Hematocrit 31.9 % (37-47); Hemoglobin 10.3 g/dL (12.0-15.0)
[2023-06-03] MEDS: Levothyroxine 88 MCG Tablet PO (05:37)
[2023-06-03] MEDS: Sucralfate 1 GM Tablet PO ×2 (05:37→16:18)
[2023-06-03] MEDS: TAFAMIDIS 61 MG CAPSULE PO (09:06)
[2023-06-03] MEDS: Potassium Chloride Oral Tablet 20 MEQ PO (09:07)
[2023-06-03] MEDS: Calcium Carbonate 500 MG Tablet PO ×2 (09:08→17:31)
[2023-06-03] MEDS: Iron Polysaccharide Complex 150 MG CAPSULE PO (09:09)
[2023-06-03] MEDS: Multivitamin (Healthy Eyes) Capsule 1 CAP PO ×2 (09:09→21:20)
[2023-06-03] MEDS: Ascorbic Acid 500 MG Tablet PO (09:10)
[2023-06-03 09:11] VITALS: BP 96/64; PULSE 101
[2023-06-03] MEDS: Pantoprazole Sodium 40 MG Tablet PO ×2 (09:11→21:21)
[2023-06-03] MEDS: Metoprolol(XL)Succ 25 MG Tablet 12.5 MG PO (09:11)
[2023-06-03] MEDS: Cholecalciferol (Vit D3) 125 MCG CAPSULE (5,000 UNITS) PO (09:11)
[2023-06-03] MEDS: Amox/Clavulanate 875 MG Tablet PO ×2 (09:12→21:20)
[2023-06-03] MEDS: Menthol/Lanolin/Calamine/Znox 113 GM Tube 1 APPLIC TOPICAL ×2 (09:13→21:25)
[2023-06-03] MEDS: Miconazole Nitrate 43 GM Bottle 1 APPLIC TOPICAL ×2 (09:14→21:26)
[2023-06-03 09:23] VITALS: BP 96/64; PULSE 101; O2SAT 93
[2023-06-03 13:56] VITALS: BP 104/64; PULSE 95; RESP 16; TEMP 36.8; O2SAT 100
--- NOTE | 2023-06-03 15:51 | NURSING ---
dr novak updated on low bp this AM, lasix held. Toprol given as ordered. Rechecked BP 104/64. new order to dc lasix
--- NOTE | 2023-06-03 17:34 | NURSING ---
PT HAS APPOINTMENT WITH DMITRI RECINOS MD ON 06/06/23 @ 11AM IN [place]. FAMILY WILL TAKE PT, WILL ASSESSMENT CLINICIAN AT 9AM.
[2023-06-03] MEDS: Atorvastatin Calcium 10 MG Tablet PO (21:20)
[2023-06-03] MEDS: Gabapentin 300 MG Capsule PO (21:20)
[2023-06-03] MEDS: Mirtazapine 15 MG Tablet 7.5 MG PO (21:20)
[2023-06-03] MEDS: Doxepin Hydrochloride 10 MG Capsule PO (21:21)
[2023-06-04] MEDS: oxyCODONE 5 MG Tablet 2.5 MG PO ×3 (04:13→22:25)
[2023-06-04] MEDS: Levothyroxine 88 MCG Tablet PO (05:28)
[2023-06-04] MEDS: Sucralfate 1 GM Tablet PO ×2 (05:28→16:26)
[2023-06-04 09:00] VITALS: BP 107/64; PULSE 88; RESP 16; O2SAT 98
[2023-06-04] MEDS: Potassium Chloride Oral Tablet 20 MEQ PO (09:02)
[2023-06-04 09:03] VITALS: PULSE 88
[2023-06-04] MEDS: Cholecalciferol (Vit D3) 125 MCG CAPSULE (5,000 UNITS) PO (09:03)
[2023-06-04] MEDS: Pantoprazole Sodium 40 MG Tablet PO ×2 (09:03→20:30)
[2023-06-04] MEDS: Metoprolol(XL)Succ 25 MG Tablet 12.5 MG PO (09:03)
[2023-06-04] MEDS: Ascorbic Acid 500 MG Tablet PO (09:03)
[2023-06-04] MEDS: Multivitamin (Healthy Eyes) Capsule 1 CAP PO ×2 (09:03→20:30)
[2023-06-04] MEDS: Calcium Carbonate 500 MG Tablet PO ×2 (09:03→18:26)
[2023-06-04] MEDS: Amox/Clavulanate 875 MG Tablet PO ×2 (09:04→20:30)
[2023-06-04] MEDS: TAFAMIDIS 61 MG CAPSULE PO (09:04)
[2023-06-04] MEDS: Iron Polysaccharide Complex 150 MG CAPSULE PO (09:04)
[2023-06-04] MEDS: Miconazole Nitrate 43 GM Bottle 1 APPLIC TOPICAL ×2 (09:07→22:23)
[2023-06-04] MEDS: Menthol/Lanolin/Calamine/Znox 113 GM Tube 1 APPLIC TOPICAL ×2 (09:08→20:40)
--- NOTE | 2023-06-04 10:46 | NURSING ---
Offered Covid vaccine, VIS provided. Patient refuses at this time.
--- NOTE | 2023-06-04 13:57 | WOUNDNOTE ---
wound photo: abdomen
[2023-06-04 14:17] VITALS: BP 95/59; PULSE 89; RESP 14; TEMP 36.7; O2SAT 99
[2023-06-04] MEDS: Mirtazapine 15 MG Tablet 7.5 MG PO (20:30)
[2023-06-04] MEDS: Gabapentin 300 MG Capsule PO (20:30)
[2023-06-04] MEDS: Doxepin Hydrochloride 10 MG Capsule PO (20:30)
[2023-06-04] MEDS: Atorvastatin Calcium 10 MG Tablet PO (20:30)
[2023-06-04] MEDS: MELATONIN 3 MG TABLET PO (22:27)
[2023-06-05 06:13] LABS: Hematocrit 31.6 % (37-47); Hemoglobin 9.9 g/dL (12.0-15.0)
[2023-06-05] MEDS: Levothyroxine 88 MCG Tablet PO (06:18)
[2023-06-05] MEDS: Sucralfate 1 GM Tablet PO ×2 (06:18→16:37)
--- NOTE | 2023-06-05 06:23 | NURSING ---
50ml emptied from CHRIS drain to R side at this time.
[2023-06-05 07:51] VITALS: BP 94/54; PULSE 95; RESP 20; O2SAT 99
[2023-06-05] MEDS: Potassium Chloride Oral Tablet 20 MEQ PO (08:40)
[2023-06-05] MEDS: Calcium Carbonate 500 MG Tablet PO ×2 (08:41→18:07)
[2023-06-05] MEDS: Menthol/Lanolin/Calamine/Znox 113 GM Tube 1 APPLIC TOPICAL ×2 (09:26→21:02)
[2023-06-05] MEDS: Amox/Clavulanate 875 MG Tablet PO ×2 (09:26→21:01)
[2023-06-05] MEDS: Miconazole Nitrate 43 GM Bottle 1 APPLIC TOPICAL ×2 (09:27→21:02)
[2023-06-05] MEDS: Iron Polysaccharide Complex 150 MG CAPSULE PO (09:28)
[2023-06-05] MEDS: Multivitamin (Healthy Eyes) Capsule 1 CAP PO ×2 (09:28→21:02)
[2023-06-05] MEDS: Pantoprazole Sodium 40 MG Tablet PO ×2 (09:28→21:03)
[2023-06-05] MEDS: Ascorbic Acid 500 MG Tablet PO (09:29)
[2023-06-05] MEDS: TAFAMIDIS 61 MG CAPSULE PO (09:30)
[2023-06-05] MEDS: Cholecalciferol (Vit D3) 125 MCG CAPSULE (5,000 UNITS) PO (09:30)
[2023-06-05 09:42] VITALS: BP 95/54; PULSE 95
--- NOTE | 2023-06-05 10:50 | NURSING ---
Patient and family requesting patient to be diuresed due to pitting edema. Patient c/o of feeling like fluid overload. Also requesting BNP to be ordered. Patient noted to have soft BP's at 98/55. Spoke w/ MD ok to order BNP- completed. Does not feel comfortable to diurese patient due to soft BP. Does not feel patient would benefit with midodrine to maintain BP during diuresis. Patient notified- Verbalizes understanding
[2023-06-05 11:18] LABS: BNP,B-Type NATRIURETIC PEPTIDE 220.2 pg/mL (0-100)
--- NOTE | 2023-06-05 14:09 | EKG12_ITS ---
Test Reason : CP Blood Pressure : / mmHG Vent. 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
[2023-06-05 14:16] VITALS: BP 121/61; PULSE 102; RESP 18; TEMP 37.2; O2SAT 98
--- NOTE | 2023-06-05 14:27 | NURSING ---
Addendum entered by Viviane Dalal 06/05/23 15:23: On re-assessment after receiving Ativan patient is resting in bed, smiling, chatting with family. She denies any pain/discomfort/nausea. Original Note: Patient complaining of nausea and chest pain/pressure that she rates at 3/10. Vitals taken and stable, she doesn't appear in distress. She does admit to feeling anxious and asks for a half of a Valium. EKG completed. Updated Dr. Avery, new order for Ativan 0.5mg q4 prn.
[2023-06-05] MEDS: LORazepam 0.5 MG Tablet PO ×2 (14:40→18:03)
[2023-06-05 17:26] VITALS: BMI 24.7
[2023-06-05] MEDS: Atorvastatin Calcium 10 MG Tablet PO (21:02)
[2023-06-05] MEDS: Mirtazapine 15 MG Tablet 7.5 MG PO (21:02)
[2023-06-05] MEDS: Gabapentin 300 MG Capsule PO (21:03)
[2023-06-05] MEDS: Doxepin Hydrochloride 10 MG Capsule PO (21:03)
[2023-06-05 21:24] VITALS: PULSE 120; RESP 16; O2SAT 97
--- NOTE | 2023-06-05 21:56 | NURSING ---
30ml emptied from CHRIS drain @ 2100.
[2023-06-06] MEDS: oxyCODONE 5 MG Tablet 2.5 MG PO ×2 (03:58→17:00)
[2023-06-06 05:50] LABS: Hematocrit 32.1 % (37-47); Hemoglobin 10.1 g/dL (12.0-15.0)
[2023-06-06] MEDS: Sucralfate 1 GM Tablet PO ×2 (06:29→16:55)
[2023-06-06] MEDS: Levothyroxine 88 MCG Tablet PO (06:29)
--- NOTE | 2023-06-06 06:53 | NURSING ---
20ml emptied from CHRIS drain at this time.
[2023-06-06 07:00] VITALS: BP 93/64; PULSE 105; RESP 20; TEMP 36.7; O2SAT 100
[2023-06-06] MEDS: Potassium Chloride Oral Tablet 20 MEQ PO (09:24)
[2023-06-06] MEDS: Calcium Carbonate 500 MG Tablet PO ×2 (09:24→17:51)
[2023-06-06] MEDS: Menthol/Lanolin/Calamine/Znox 113 GM Tube 1 APPLIC TOPICAL ×2 (09:25→19:55)
[2023-06-06] MEDS: Iron Polysaccharide Complex 150 MG CAPSULE PO (09:26)
[2023-06-06] MEDS: Miconazole Nitrate 43 GM Bottle 1 APPLIC TOPICAL ×2 (09:26→22:35)
[2023-06-06] MEDS: Multivitamin (Healthy Eyes) Capsule 1 CAP PO ×2 (09:27→19:48)
[2023-06-06] MEDS: Pantoprazole Sodium 40 MG Tablet PO ×2 (09:27→19:49)
[2023-06-06] MEDS: Cholecalciferol (Vit D3) 125 MCG CAPSULE (5,000 UNITS) PO (09:29)
[2023-06-06] MEDS: Ascorbic Acid 500 MG Tablet PO (09:29)
[2023-06-06] MEDS: TAFAMIDIS 61 MG CAPSULE PO (09:29)
[2023-06-06 10:24] VITALS: PULSE 105; RESP 20; O2SAT 100
--- NOTE | 2023-06-06 12:15 | CASEMGMT ---
Social Work IDT met with patient, and children for care plan meeting. Discussed patient's progress in PT/OT/SN. Educated to Medicare benefit and copay coverage. SW followed up with family and pt on Dr. Avery's discussion last night about hospice services. SW met with family/pt separately from meeting. Spent extensive time with pt/family answering questions and explaining hospice services. Noted Dr Avery's recommendation for hospice is more quality of life vs quantity of life. Educated to graduation of hospice, revocation of hospice at any time, allowing the body to rest and heal without pursuing therapy or extensive medical treatment. Family actively listened to explanations, however, pt and family ultimately decided they would like to give more time to determine recovery as pt has been through a lot recently. SW in agreement and noted if pt has not made progress physically or medically in the next one to two weeks, then SW to revisit this conversation with pt/family. All parties agreed and will likely pursue hospice at that time. Pt/family appreciative of time and information from this worker. SW will continue to follow. TERRENCE RatliffW
--- NOTE | 2023-06-06 13:02 | NURSING ---
Addendum entered by Viviane Dalal 06/06/23 14:09: Paper w/ date and time of appt given to . Original Note: Family requesting patient be seen by Dr. Johansen before leaving TCU if possible. Called [facility] office, they were able to move appt up from July to 06/22/23 @[id number].
--- NOTE | 2023-06-06 13:36 | NURSING ---
TIERARN/WOUND NURSE IN TO CHANGE PT WOUND VAC.
[2023-06-06] MEDS: LORazepam 0.5 MG Tablet 0.25 MG PO ×2 (14:22→19:40)
--- NOTE | 2023-06-06 15:01 | WOUNDNOTE ---
wound photo: abdomen
[2023-06-06 16:00] VITALS: BP 126/56; PULSE 115; RESP 18; TEMP 36.9; O2SAT 97
[2023-06-06] MEDS: Mirtazapine 15 MG Tablet PO (19:47)
[2023-06-06 19:48] VITALS: BP 111/68; PULSE 120
[2023-06-06] MEDS: Gabapentin 300 MG Capsule PO (19:48)
[2023-06-06] MEDS: Metoprolol(XL)Succ 25 MG Tablet 12.5 MG PO (19:48)
[2023-06-06] MEDS: Doxepin Hydrochloride 10 MG Capsule PO (19:49)
[2023-06-06] MEDS: Atorvastatin Calcium 10 MG Tablet PO (19:50)
[2023-06-07] MEDS: Levothyroxine 88 MCG Tablet PO (06:40)
[2023-06-07] MEDS: Sucralfate 1 GM Tablet PO (06:40)
[2023-06-07] MEDS: Miconazole Nitrate 43 GM Bottle 1 APPLIC TOPICAL (08:43)
[2023-06-07] MEDS: Menthol/Lanolin/Calamine/Znox 113 GM Tube 1 APPLIC TOPICAL (08:43)
[2023-06-07] MEDS: Potassium Chloride Oral Tablet 20 MEQ PO (08:43)
[2023-06-07] MEDS: Multivitamin (Healthy Eyes) Capsule 1 CAP PO (08:44)
[2023-06-07] MEDS: Cholecalciferol (Vit D3) 125 MCG CAPSULE (5,000 UNITS) PO (08:45)
[2023-06-07] MEDS: Ascorbic Acid 500 MG Tablet PO (08:45)
[2023-06-07] MEDS: Calcium Carbonate 500 MG Tablet PO (08:45)
[2023-06-07] MEDS: Iron Polysaccharide Complex 150 MG CAPSULE PO (08:45)
[2023-06-07] MEDS: Pantoprazole Sodium 40 MG Tablet PO (08:45)
[2023-06-07] MEDS: TAFAMIDIS 61 MG CAPSULE PO (08:46)
--- NOTE | 2023-06-07 09:15 | NURSING ---
Pt's , Pantera present at bedside and expressing concern that pt has poor appetite, is not on IV fluids, and is not on lasix to resolve edema. Vitals: bp-106/58, p-101, r-16, sp02-96% RA. Pt took meds well, A&O appropriate, baseline. Denies pain. Spoke with Pantera regarding current meds/low blood pressures/hydration, MD's current orders. Offered to notify MD that he [Pantera] has questions/concerns; he verbalized understanding, refused offer to notify MD, and has no further comments\concerns at this time.
[2023-06-07 09:50] VITALS: BP 106/58; PULSE 101; RESP 16; O2SAT 96
[2023-06-07 09:56] VITALS: TEMP 36.4
--- NOTE | 2023-06-07 11:02 | NURSING ---
Addendum entered by Viviane Dalal 06/07/23 14:04: Patient transferred to ER room 16. Family collecting belongings and heading down to ER. Addendum entered by Viviane Dalal 06/07/23 13:34: Asked family and patient what they would like to do if no cardiac physician accepts her for transfer today. Son requesting transfer to [facility] ER. Patient agrees with plan, wants sent to ER. Let family know that if accepting physician calls from [facility] she can be still be transferred to [facility] under their care. Called and report given to ER nurse, patient to go to room 16. Original Note: 1030-Approached out by nurse's station by patient's and daughter. They asked to speak with this nurse about getting patient transferred to [facility]. Went to room and spoke with patient in private, she confirmed she would like transferred to . Updated Dr. Avery, order to have patient sent to ER. Spoke with ER, they report being full, unsure how long wait would be to get get admitted/transferred. Discussed with and patient in room. Updated them that patient could be transferred directly from TCU if [facility] has an accepting physician and transport will take patient. They want to try to get accepting physician and have her transferred to [facility] from TCU. 1110-Call from nurse Winsome that works at [facility], says she knows patient well from having her in clinical study. Discussed patient request to be transferred. She said she would reach out to one of the cardiac physicians and see if she can get an accepting physician.
--- NOTE | 2023-06-07 15:43 | CASEMGMT ---
Social Work BIMS () and PHQ-9 () completed for MDS assessment. SW explored positive responses and all relate to pt's decline in medical and functional condition. Pt remains optimistic for recovery and motivated to continue with treatment. SW offered ongoing support throughout stay. Carol Mathis, FIRE SAFETY DIRECTOR DOCTOR OF VETERINARY MEDICINE
--- NOTE | 2023-06-07 20:32 | PCM.DC.SUM ---
Providers Date of Admission: 05/31/23 Primary Care Physician: Dr. Radha Mcrae MD Consultations 05/31/23 17:43 Consult: Onc/Wound/internal auditor Routine Comment: Reason for Consult:: Dehisced abdominal incision Reason For Visit: GI BLEED Diagnosis Discharge Diagnosis (1) Debility: Status: Acute Code(s): R53.81 - Other malaise (2) Gastrointestinal hemorrhage: Status: Acute Code(s): K92.2 - Gastrointestinal hemorrhage, unspecified (3) Anemia due to acute blood loss: Status: Acute Code(s): D62 - Acute posthemorrhagic anemia (4) Duodenal perforation: Status: Acute Code(s): K63.1 - Perforation of intestine (nontraumatic) (5) Cardiac amyloidosis: Status: Acute Code(s): E85.4 - Organ-limited amyloidosis; I43 - Cardiomyopathy in diseases classified elsewhere (6) Coronary artery disease: Status: Acute Code(s): I25.10 - Atherosclerotic heart disease of [place] coronary artery without angina pectoris (7) Hyperlipidemia: Status: Chronic Code(s): E78.5 - Hyperlipidemia, unspecified Qualifiers: Hyperlipidemia type: unspecified Qualified Code(s): E78.5 - Hyperlipidemia, unspecified (8) Appetite loss: Status: Acute Code(s): R63.0 - Anorexia (9) Macular degeneration: Status: Acute Code(s): H35.30 - Unspecified macular degeneration (10) Insomnia: Status: Acute Code(s): G47.00 - Insomnia, unspecified (11) Recurrent deep vein thrombosis (DVT): Status: Acute Code(s): I82.409 - Acute embolism and thrombosis of unspecified deep veins of unspecified lower extremity (12) Neuropathic pain: Status: Acute Code(s): M79.2 - Neuralgia and neuritis, unspecified (13) Hypothyroidism: Status: Chronic Code(s): E03.9 - Hypothyroidism, unspecified Plan 82 year old female with below past medical history hospitalized for UGIB, duodenal perforation, underwent resection, admitted to TCU with debility, here for rehabilitation, strengthening, prior to discharge home with . Debility - PT/OT. Pain - Tylenol 1000mg q6 prn pain (1-10), Oxycodone 2.5mg q6h. Bowel - senna/colace 1 tablet bid prn, Magnesium citrate 300ml daily prn. Adult immunization - Administer pneumonia vaccine, covid vaccine, flu vaccine as appropriate. DVT prophylaxis - Hold, UGIB. ID - Augmentin [id number] bid thru 06/05/2023. Iron deficiency anemia - Ferrex 150mg daily, Vitamin C 500mg daily. Hyperlipidemia - Atorvastatin 10mg qhs. Indigestion - TUMS 500mg bidcm. Vitamin D deficiency - D3 125mcg daily. Insomnia - Doxepin 10mg qhs, Melatonin 3mg qhs prn. Neuropathic pain - Gabapentin 300mg qhs. Hypothyroidism - Levothyroxine 88mcg daily. Skin irritation - Calmoseptine topical bid. Coronary artery disease - Metoprolol succinate 12.5mg daily. Duodenal ulcer - Pantoprazole 40mg bid, Sucralfate 1gm bid. Hypokalemia - KCL 20meq daily. Cardiac amyloidosis - Tafamidis 61mg daily. Medications at Discharge Home Medications levothyroxine 88 mcg tablet 88 mcg PO DAILY THYROID 05/27/18 aspirin 81 mg tablet,delayed release (Adult Aspirin Regimen) 81 mg PO DAILY HEART HEALTH 12/12/19 tafamidis 61 mg capsule 61 mg PO DAILY HEART FAILURE 12/12/19 cholecalciferol (vitamin D3) 125 mcg (5,000 unit) capsule 125 mcg PO DAILY SUPPLEMENT 04/15/20 metoprolol succinate 25 mg tablet,extended release 24 hr (Toprol XL) 12.5 mg PO DAILY BLOOD PRESSURE 07/13/22 vitamins A,C,R-ucph-bvbmmi 4,296 mcg-226 mg-90 mg capsule (PreserVision AREDS) 1 cap PO BID EYE HEALTH 01/11/23 gabapentin 300 mg capsule 300 mg PO QHS NEUROPATHY 02/16/23 MAGIC MOUTH WASH (BMX) 180 mL suspension 5 ml PO Q4H PRN Mouth pain #180 mL 04/20/23 benzocaine 6 mg-menthol 10 mg lozenges 1 salvatore mucous membrane Q2H Sore throat 04/20/23 diclofenac sodium 1 % topical gel (Voltaren Arthritis Pain) 2 g topical 4X/DAY Arthritis pain 04/20/23 ascorbate calcium (vitamin C) 500 mg tablet 500 mg PO DAILY Supplement 05/03/23 atorvastatin 10 mg tablet (Lipitor) 10 mg PO QHS Cholestrol 05/03/23 calcium carbonate 200 mg calcium (500 mg) chewable tablet (Tums) 500 mg PO BID Supplement 05/03/23 doxepin 10 mg capsule 10 mg PO QHS sleep 05/03/23 piperacillin-tazobactam 3.375 gram/50 mL dextrose(iso-os) IV piggyback (Zosyn) 3.375 g (56.25 mL) IV Q8H Antibiotic 9 days 05/08/23 ascorbic acid (vitamin C) 500 mg tablet 500 mg PO 1000 30 days #30 tabs 05/16/23 doxepin 10 mg capsule 10 mg PO 1999 30 days #30 caps 05/16/23 mirtazapine 15 mg tablet 7.5 mg (1/2 x 15 mg) PO 1999 mood/appetite 30 days #15 tabs 05/16/23 pantoprazole 40 mg tablet,delayed release 40 mg PO BID reflux 30 days #60 tabs 05/16/23 polysaccharide iron complex 150 mg iron capsule (Ferrex) 150 mg PO DAILY 30 days #30 caps 05/16/23 potassium chloride 20 mEq tablet,extended release(part/cryst) 20 meq PO DAILYCM supplement 30 days #30 tabs 05/16/23 sucralfate 1 gram tablet 1 g PO BIDAC prevent ulcers 30 days #60 tabs 05/16/23 amoxicillin 875 mg-potassium clavulanate 125 mg tablet 1 tab PO BID atibiotic 05/31/23 oxycodone 5 mg capsule 2.5 mg PO Q6H pain 05/31/23 acetaminophen 325 mg tablet 650 mg PO Q6H PRN Pain 1-10 Or Fever >100.7 06/07/23 acetaminophen 500 mg tablet 1,000 mg PO Q6H PRN Pain Score 1-3 06/07/23 melatonin 3 mg tablet 3 mg PO QHS PRN Insomnia 06/07/23 tramadol 50 mg tablet 50 mg PO Q6H PRN Pain Score 4-5 06/07/23 Hospital Course Operations None Procedures None Summary of Care Provided Minutes Spent on Discharge: 35 Hospital Course: 82 year old female with below past medical history hospitalized for UGIB, duodenal perforation, underwent resection, admitted to TCU with debility, here for rehabilitation, strengthening, prior to discharge home with . 06/05/2023 Resident swollen, unable to tolerate diuresis due to hypotension. 06/07/2023 Resident condition deteriorated, resident/family request aggressive care, asked for transfer to [facility]. Resident's cardiac amyloidosis doctor at [facility]. Attempts to transfer directly from [facility] to [facility] unsuccessful. Resident condition further deteriorated. Discharge to [facility] ED 06/07/2023 for evaluation, facilitate transfer to [facility]. Physical Exam Const alert General Appearance: cooperative HEENT normocephalic Eyes PERRL and EOMs intact bilaterally Neck supple, no JVD and no carotid bruits Resp normal respiratory effort, normal air movement and clear to auscultation bilaterally Cardio regular rate and regular rhythm GI normal to inspection, nondistended, normoactive bowel sounds, non-tender and non-distended Extremity normal capillary refill General Extremity: edema bilateral (1+ pitting.) Skin no rashes or lesions noted General Skin Exam: no breakdown Psych affect normal Appearance: appropriate Weight / BMI Weight Weight: 67.495 kg Body Mass Index (BMI) 24.7 ABG / Lab / Microbiology Data 06/06/23 05:15 06/01/23 05:35 D/C Instructions Discharge Diet: No restrictions Discharge Activity: Return to Normal Activity, May Shower and Use Walker Weight Bearing Status: Weight bearing as tolerated Call your doctor if you observe: Fever of 101 or Higher, Inability to urinate, Inability to have a bowel movement, Shortness of breath, Dizziness, Fainting spells, Chest pain and Uncontrolled pain Additional Instructions: Discharge to [facility] ED 06/07/2023 for evaluation, facilitate transfer to [facility]. Please Follow Up With: Lamine Hair MD Meaningful Use Info Meaningful Use Diagnoses (Choose all that apply): None applicable Discharge Plan Admission Admit Date/Time: 05/31/23 15:32 Primary Reason for Your Visit: Debility. Attending Provider: David Avery Chi Primary Care Provider: Radha Mcrae Instructions Additional Instructions / Restrictions: Discharge to [facility] ED 06/07/2023 for evaluation, facilitate transfer to [facility]. Discharge Orders/Prescriptions Prescriptions: No Action aspirin [Adult Aspirin Regimen] 81 mg tablet,delayed release (DR/EC) 81 mg PO DAILY tafamidis 61 mg capsule 61 mg PO DAILY cholecalciferol (vitamin D3) 125 mcg (5,000 unit) capsule 125 mcg PO DAILY metoprolol succinate [Toprol XL] 25 mg tablet extended release 24 hr 12.5 mg PO DAILY PreserVision AREDS 4,296 mcg-226 mg-90 mg capsule 1 cap PO BID levothyroxine 88 mcg tablet 88 mcg PO DAILY benzocaine-menthol 6-10 mg lozenge 1 salv[place] mucous membrane Q2H diclofenac sodium [Voltaren Arthritis Pain] 1 % gel 2 g topical 4X/DAY MAGIC MOUTH WASH (BMX) 180 mL suspension 5 ml PO Q4H PRN Qty: 180 doxepin 10 mg Capsule 10 mg PO 1999 30 Days Qty: 30 0RF ascorbic acid (vitamin C) 500 mg Tablet 500 mg PO 999 30 Days Qty: 30 0RF sucralfate 1 gram Tablet 1 g PO BIDAC 30 Days Qty: 60 0RF polysaccharide iron complex [Ferrex 150] 150 mg iron Capsule 150 mg PO DAILY 30 Days Qty: 30 0RF potassium chloride 20 mEq Tablet,Er Particles/Crystals 20 meq PO DAILYCM 30 Days Qty: 30 0RF pantoprazole 40 mg Tablet,Delayed Release (Dr/Ec) 40 mg PO BID 30 Days Qty: 60 0RF mirtazapine 15 mg Tablet 7.5 mg PO 1999 30 Days Qty: 15 0RF atorvastatin [Lipitor] 10 mg tablet 10 mg PO QHS doxepin 10 mg capsule 10 mg PO QHS calcium carbonate [Tums] 200 mg calcium (500 mg) tablet,chewable 500 mg PO BID ascorbate calcium (vitamin C) 500 mg tablet 500 mg PO DAILY Zosyn in dextrose (iso-osm) 3.375 gram/50 mL piggyback 3.375 g IV Q8H 9 Days Rx Instructions: stop date 05/18/23 dx: mastoiditis weekly bmp and cbc. Fax to [phone]. Routine midline care per protocol. amoxicillin-pot clavulanate 875-125 mg tablet 1 tab PO BID oxycodone 5 mg capsule 2.5 mg PO Q6H acetaminophen 325 mg Tablet 650 mg PO Q6H PRN (Reason: Pain 1-10 Or Fever >100.7) melatonin 3 mg Tablet 3 mg PO QHS PRN (Reason: Insomnia) tramadol 50 mg Tablet 50 mg PO Q6H PRN (Reason: Pain Score 4-5) acetaminophen 500 mg Tablet 1,000 mg PO Q6H PRN (Reason: Pain Score 1-3) gabapentin 300 mg capsule 300 mg PO QHS Rx Instructions: Take for 180 days Referrals / Follow Up: Saurav Yo [Other] (Urology follow-up) Radha Mcrae MD [Primary Care Provider] - Tonya Anders MD [Med Staff - Active Staff] - (EGD ) Disposition Disposition (needs filled in before D/C Order can be placed): [facility]
== END 2023-06-07 13:30 | disposition short-term general hospital (02) | DRG 949 ==
PROVIDERS: Admitting Provider Family Medicine Geriatric Medicine; PCP Internal Medicine; Visit Provider Family Medicine Geriatric Medicine
DX: Z48.815 Encounter for surgical aftercare following surgery on the digestive system (principal); K26.6 Chronic or unspecified duodenal ulcer with both hemorrhage and perforation; K31.811 Angiodysplasia of stomach and duodenum with bleeding; D68.8 Other specified coagulation defects; E85.9 Amyloidosis, unspecified; I43 Cardiomyopathy in diseases classified elsewhere; I10 Essential (primary) hypertension; E89.0 Postprocedural hypothyroidism; D50.9 Iron deficiency anemia, unspecified; E78.5 Hyperlipidemia, unspecified; I25.10 Atherosclerotic heart disease of native coronary artery without angina pectoris; G62.9 Polyneuropathy, unspecified; E55.9 Vitamin D deficiency, unspecified; H35.30 Unspecified macular degeneration; E87.6 Hypokalemia; F41.9 Anxiety disorder, unspecified; G47.00 Insomnia, unspecified; Z79.82 Long term (current) use of aspirin; Z79.890 Hormone replacement therapy; Z79.899 Other long term (current) drug therapy; Z86.711 Personal history of pulmonary embolism; Z86.718 Personal history of other venous thrombosis and embolism
CPT/HCPCS: 36415; 80048; 83880; 85014; 85018; 85025; 93005; 97110; 97116; 97162; 97166; 97530; 97535; 97802

== ENCOUNTER 2023-06-07 14:06 | Inpatient (IN) | payer MEDICARE, OTHER, SELFPAY ==
[2023-06-07] VITALS (10 sets, daily range): BP systolic 91–106; BP diastolic 52–71; PULSE 104–122; RESP 16–21; TEMP 36.3–36.8; O2SAT 98–99; BMI 26.5
--- NOTE | 2023-06-07 15:12 | EX.ED.DYSGE1 ---
HPI <JOSE Caruso - Last Filed: 06/07/23 19:16> History of Present Illness Chief Complaint: Edema Narrative Narrative: Patient is in the TCU. She had orthostasis and a GI bleed. In May she had orthostasis, GI bleed and blood transfusions. CT scan showed duodenal and colon/rectal bleeding. Dr. Addison performed EGD/colonoscopy and cauterized gastric and duodenal angiodysplastic lesions. Patient was transferred to [facility] on 05/19/2023 and had exploratory laparotomy and had a duodenal perforation and was left with open abdomen and drain.She had a second surgery with resection and gastric bypass. Patient was admitted to TCU on 05/31/2023 for rehabilitation. Over the last week she has been tired and had issues with fluid balance. She gets dehydrated and family states her heart rate goes up and her blood pressure drops but they do not want to overdo fluids due to bilateral leg edema. She was getting IV Lasix. Her has been talking with the [facility] nurse and their cardiac team involved with her cardiac amyloidosis advised less Lasix. Family states Dr. Avery stopped giving IV fluids and Lasix completely about 2 days ago. They were trying to get her transferred to [facility]. Per family request they came to the ED. [facility] <JOSE Caruso - Last Filed: 06/07/23 19:16> [facility] Medical History Abdominal pain Abdominal pain Abnormal stress echo Acid reflux Anticoagulant long-term use Arthritis Atherosclerosis of [place] coronary artery of g[place] heart without angina pectoris Back problem Cellulitis of left lower extremity Chest pain Constipation Diverticulitis of sigmoid colon DVT (deep venous thrombosis) Essential hypertension Gastrointestinal hemorrhage Heart murmur Hemorrhoids History of pulmonary embolus (PE) (~2009) History of venous thrombosis and embolism hx of APLL Hyperlipidemia Hypertension Hypertrophic cardiomyopathy Hypofibrinogenemia Hypothyroidism Kidney disease LVH (left ventricular 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 Palpitations Personal history of colonic polyps Pulmonary embolism Severe left ventricular hypertrophy Severe mitral regurgitation Thrombophlebitis of superficial veins of left lower extremity Wild-type transthyretin-related (ATTR) amyloidosis Home Medications levothyroxine 88 mcg tablet 88 mcg PO DAILY THYROID 05/27/18 [History Last Taken 04/04/23] aspirin 81 mg tablet,delayed release (Adult Aspirin Regimen) 81 mg PO DAILY HEART HEALTH 12/12/19 [History Last Taken 05/08/23] tafamidis 61 mg capsule 61 mg PO DAILY HEART FAILURE 12/12/19 [History Last Taken 05/08/23] cholecalciferol (vitamin D3) 125 mcg (5,000 unit) capsule 125 mcg PO DAILY SUPPLEMENT 04/15/20 [History Last Taken 04/04/23] metoprolol succinate 25 mg tablet,extended release 24 hr (Toprol XL) 12.5 mg PO DAILY BLOOD PRESSURE 07/13/22 [History Last Taken 05/08/23] vitamins A,C,W-aegy-qtnpwp 4,296 mcg-226 mg-90 mg capsule (PreserVision AREDS) 1 cap PO BID EYE HEALTH 01/11/23 [History Last Taken 04/04/23] gabapentin 300 mg capsule 300 mg PO QHS NEUROPATHY 02/16/23 [History Last Taken 05/07/23] MAGIC MOUTH WASH (BMX) 180 mL suspension 5 ml PO Q4H PRN Mouth pain #180 mL 04/20/23 [History Last Taken Unknown] benzocaine 6 mg-menthol 10 mg lozenges 1 salvatore mucous membrane Q2H Sore throat 04/20/23 [History Last Taken Unknown] diclofenac sodium 1 % topical gel (Voltaren Arthritis Pain) 2 g topical 4X/DAY Arthritis pain 04/20/23 [History Last Taken Unknown] ascorbate calcium (vitamin C) 500 mg tablet 500 mg PO DAILY Supplement 05/03/23 [History Last Taken Unknown] atorvastatin 10 mg tablet (Lipitor) 10 mg PO QHS Cholestrol 05/03/23 [History Last Taken 05/30/23] calcium carbonate 200 mg calcium (500 mg) chewable tablet (Tums) 500 mg PO BID Supplement 05/03/23 [History Last Taken Unknown] doxepin 10 mg capsule 10 mg PO QHS sleep 05/03/23 [History Last Taken Unknown] piperacillin-tazobactam 3.375 gram/50 mL dextrose(iso-os) IV piggyback (Zosyn) 3.375 g (56.25 mL) IV Q8H Antibiotic 9 days 05/08/23 [Rx Last Taken Unknown] ascorbic acid (vitamin C) 500 mg tablet 500 mg PO 1000 30 days #30 tabs 05/16/23 [Rx Last Taken Unknown] doxepin 10 mg capsule 10 mg PO 1999 30 days #30 caps 05/16/23 [Rx Last Taken Unknown] mirtazapine 15 mg tablet 7.5 mg (1/2 x 15 mg) PO 1999 mood/appetite 30 days #15 tabs 05/16/23 [Rx Last Taken Unknown] pantoprazole 40 mg tablet,delayed release 40 mg PO BID reflux 30 days #60 tabs 05/16/23 [Rx Last Taken Unknown] polysaccharide iron complex 150 mg iron capsule (Ferrex) 150 mg PO DAILY 30 days #30 caps 05/16/23 [Rx Last Taken Unknown] potassium chloride 20 mEq tablet,extended release(part/cryst) 20 meq PO DAILYCM supplement 30 days #30 tabs 05/16/23 [Rx Last Taken Unknown] sucralfate 1 gram tablet 1 g PO BIDAC prevent ulcers 30 days #60 tabs 05/16/23 [Rx Last Taken Unknown] amoxicillin 875 mg-potassium clavulanate 125 mg tablet 1 tab PO BID atibiotic 05/31/23 [History Last Taken Unknown] oxycodone 5 mg capsule 2.5 mg PO Q6H pain 05/31/23 [History Last Taken Unknown] acetaminophen 325 mg tablet 650 mg PO Q6H PRN Pain 1-10 Or Fever >100.7 06/07/23 [History Last Taken Unknown] acetaminophen 500 mg tablet 1,000 mg PO Q6H PRN Pain Score 1-3 06/07/23 [History Last Taken Unknown] melatonin 3 mg tablet 3 mg PO QHS PRN Insomnia 06/07/23 [History Last Taken Unknown] tramadol 50 mg tablet 50 mg PO Q6H PRN Pain Score 4-5 06/07/23 [History Last Taken Unknown] Allergy/AdvReac Type Severity Reaction Status Date / Time Iodinated Contrast Media Allergy Severe Hives Verified 05/07/23 10:54 [Iodinated Contrast- Oral and IV Dye] iodine Allergy Anaphylaxis Verified 05/07/23 10:54 Family History Mother Colon cancer Brother Myeloma Father Heart disease Surgical History History of cholecystectomy History of left heart catheterization (07/22/20) History of left hip replacement History of right hip replacement Hx of arthroscopic knee surgery Hx of bilateral inguinal hernia repair Hx of bladder repair surgery Hx of hysterectomy Hx of partial thyroidectomy Hx of umbilical hernia repair (~2009) Social History (Updated 06/07/23 @ 14:27 by Paz Colon) household members: spouse housing: house Smoking Status: Never smoker second hand exposure: No alcohol intake: never substance use type: does not use caffeine: Yes (very rare) what type of physical activity do you participate in: none frequency: does not exercise seatbelt use: always ROS <JOSE Caruso - Last Filed: 06/07/23 19:16> ROS ED ROS Narrative Constitutional: Negative for fever, chills. CVS: Negative for chest pain. Respiratory: Negative for shortness of breath. GI: Negative for abdominal pain, nausea, vomiting, melena, hematochezia. EXAM <JOSE Caruso - Last Filed: 06/07/23 19:16> Physical Exam Narrative Exam Narrative: CONST: Patient sitting in no acute distress. EYES: Normal inspection. NECK: Normal inspection. RESP: No respiratory distress, CTAB. CVS: Regular rate and rhythm, no murmur, no gallop. ABD: Soft and nontender. Surgical incision site covered with clean bandage, no erythema, CHRIS drain intact with scant serosanguineous drainage. SKIN: Color normal, no rash, warm, dry, intact. EXTREMITIES: 3+ pedal edema bilaterally. NEURO: Oriented x4. PSYCH: Normal affect. Const Vital Signs: 06/07/23 14:09 06/07/23 14:29 06/07/23 14:08 Temperature 97.4 F L Temperature Source Oral Pulse Rate 104 H 111 H Respiratory Rate 16 20 H Respiratory Effort Normal Respiratory Pattern Normal Blood Pressure 106/69 106/61 Blood Pressure Mean 81 76 Pulse Ox 98 98 Oxygen Delivery Method Room Air Room Air 06/07/23 16:15 06/07/23 18:00 06/07/23 19:17 Temperature Temperature Source Pulse Rate 107 H 122 H 115 H Respiratory Rate 20 H 21 H 18 Respiratory Effort Respiratory Pattern Blood Pressure 100/71 102/53 L Blood Pressure Mean 80 69 Pulse Ox 98 99 99 Oxygen Delivery Method Room Air 06/07/23 21:15 06/07/23 20:45 06/07/23 21:00 Temperature Temperature Source Pulse Rate Respiratory Rate Respiratory Effort Respiratory Pattern Blood Pressure 99/54 L 102/52 L 91/52 L Blood Pressure Mean 69 68 65 Pulse Ox Oxygen Delivery Method <Dr. Zohaib Bailey DO - Last Filed: 06/07/23 23:28> Physical Exam Const Vital Signs: 06/07/23 14:09 06/07/23 14:29 06/07/23 14:08 Temperature 97.4 F L Temperature Source Oral Pulse Rate 104 H 111 H Respiratory Rate 16 20 H Respiratory Effort Normal Respiratory Pattern Normal Blood Pressure 106/69 106/61 Blood Pressure Mean 81 76 Pulse Ox 98 98 Oxygen Delivery Method Room Air Room Air 06/07/23 16:15 06/07/23 18:00 06/07/23 19:17 Temperature Temperature Source Pulse Rate 107 H 122 H 115 H Respiratory Rate 20 H 21 H 18 Respiratory Effort Respiratory Pattern Blood Pressure 100/71 102/53 L Blood Pressure Mean 80 69 Pulse Ox 98 99 99 Oxygen Delivery Method Room Air 06/07/23 21:15 06/07/23 20:45 06/07/23 21:00 Temperature Temperature Source Pulse Rate Respiratory Rate Respiratory Effort Respiratory Pattern Blood Pressure 99/54 L 102/52 L 91/52 L Blood Pressure Mean 69 68 65 Pulse Ox Oxygen Delivery Method MDM <JOSE Caruso - Last Filed: 06/07/23 19:16> [facility] MDM Narrative Medical decision making narrative: History gathered from: Patient and family Consults: [facility] hospitalist, cardiology Patient has had extended recent hospitalizations with GI bleed and abdominal surgery for duodenal perforation. She has been in TCU for the last week and is having issues with dehydration and lower extremity fluid retention. She has history of cardiac amyloidosis and sees a specialist group a at [facility]. Patient is requesting transfer to there. She appears well and nontoxic. BP 106/69, HR 104, otherwise normal vital signs. She is drinking fluids at bedside and has moist mucous membranes. Heart regular rate and rhythm. Lungs clear. Abdominal incision healing well without signs of infection. 3+ pitting edema bilaterally. Labs show white count of 13.0. Hemoglobin is stable at 10.5. Sodium was 129, potassium 5.5, normal BUN at 10, creatinine 0.75. EKG is sinus rhythm with no hyperkalemic changes. Hyperkalemia was treated with insulin/D50. I had a conference call with [facility] transfer line, hospitalist, and her cardiac amyloidosis specialist Dr. Evi Zamora. The animal tech accepted the patient to the heart failure service and at this time said no IV fluids are needed and they will reassess. Patient is awaiting an available bed. Lab Data Attestation: I reviewed the patient's lab results. Labs: Laboratory Results - last 24 hr 06/07/23 06/07/23 15:22 17:29 WBC 13.0 H RBC 3.68 L Hgb 10.5 L Hct 33.3 L MCV 90.5 MCH 28.5 MCHC 31.5 L RDW Std Deviation 55.7 H RDW Coeff of Rashmi 16.9 H Plt Count 242 MPV 9.0 Immature Gran % (Auto) 1.300 H Neut % (Auto) 73.9 H Lymph % (Auto) 13.3 L Ritchie % (Auto) 11.1 H Eos % (Auto) 0.2 Baso % (Auto) 0.2 Absolute Neuts (auto) 9.6 H Absolute Lymphs (auto) 1.74 Nucleated RBC % 0 Sodium 129 L Potassium 5.5 H Chloride 98 Carbon Dioxide 23.0 Anion Gap 8 BUN 10 Creatinine 0.75 Estim Creat Clear Calc 54.02 Est GFR (MDRD) Af Amer 95 Est GFR (MDRD) Non-Af 79 BUN/Creatinine Ratio 13.3 Glucose 96 Calcium 8.1 L POC Glucose 98 EKG Initial EKG: Attestation: I personally reviewed and interpreted this EKG as follows: Interpretation: Sinus Rhythm and No Acute Injury Pattern Comments: Sinus tachycardia at 107 bpm No acute ischemic changes <Dr. Zohaib Bailey, DO - Last Filed: 06/07/23 23:28> [facility] Lab Data Labs: Laboratory Results - last 24 hr 06/07/23 06/07/23 15:22 17:29 WBC 13.0 H RBC 3.68 L Hgb 10.5 L Hct 33.3 L MCV 90.5 MCH 28.5 MCHC 31.5 L RDW Std Deviation 55.7 H RDW Coeff of Rashmi 16.9 H Plt Count 242 MPV 9.0 Immature Gran % (Auto) 1.300 H Neut % (Auto) 73.9 H Lymph % (Auto) 13.3 L Ritchie % (Auto) 11.1 H Eos % (Auto) 0.2 Baso % (Auto) 0.2 Absolute Neuts (auto) 9.6 H Absolute Lymphs (auto) 1.74 Nucleated RBC % 0 Sodium 129 L Potassium 5.5 H Chloride 98 Carbon Dioxide 23.0 Anion Gap 8 BUN 10 Creatinine 0.75 Estim Creat Clear Calc 54.02 Est GFR (MDRD) Af Amer 95 Est GFR (MDRD) Non-Af 79 BUN/Creatinine Ratio 13.3 Glucose 96 Calcium 8.1 L POC Glucose 98 Treatment and Re-Evaluation :: I have personally performed a face to face assessment of the patient and have reviewed the LUIS Note. I performed a substantive portion of the visit including all aspects of the following. My novak findings include: History: Patient presents with lower extremity edema that has been getting progressively worse over the past few days. Patient has a history of cardiac amyloidosis and congestive heart failure. Family states that the patient has difficulty with her fluid status. Family states that the patient does not want to drink much fluid because of the swelling in her legs. Family states that when the patient does get some fluids, she starts to feel better. Family is requesting the patient be transferred to [facility] where her animal tech are to understand her amyloidosis. Patient has not had any Lasix in the last 5 days. Exam: Vital signs are stable. Patient is afebrile. Patient is in no acute distress. Oral mucosa is pink and moist. Neck is supple. Trachea is midline. There is no JVD noted. Heart was regular and tachycardic. Lungs are diminished bilaterally. There is adequate respiratory effort noted. Abdomen is soft. Bowel sounds are normal. There is no tenderness. Cranial nerves II through XII are intact. There are no focal motor or sensory deficits noted. Extremities are intact. There is 2+ edema of the lower extremities bilaterally. Medical Decision Making: Differential diagnosis includes congestive heart failure, cardiac dysrhythmia, cardiac ischemia, anemia, and electrolyte abnormality. EKG will be obtained to assess for cardiac dysrhythmia and cardiac ischemia. CBC will be obtained to assess for leukocytosis and anemia. Basic metabolic profile will be obtained to assess for electrolyte abnormality and renal function. CBC was reviewed. There is a mild leukocytosis of 13.0. Hemoglobin was 10.5 and hematocrit was 33.3. Basic metabolic profile was reviewed. Sodium was 129. Potassium was mildly elevated at 5.5. The remainder is within normal limits. EKG was obtained on my independent interpretation, shows sinus tachycardia with a rate of 107. There are no acute ST or T wave changes noted. There are no hyperacute T waves noted. Case was discussed with [facility] transfer line. Patient was accepted to [facility]. Patient will be transferred when a bed becomes available. Patient and family understand and are agreeable with the plan. All questions were answered. Case was discussed with the hospitalist for possible admission pending transfer. She stated that there are very limited beds in the hospital at this time. She recommended patient be transferred back to TCU pending transfer. This was discussed with the family. Family does not want patient to be transferred back to the TCU. Family is requesting the patient be kept in the emergency department until they can call [facility] tomorrow morning. Care of the patient was turned over the oncoming physician pending transfer. Discharge Plan Triage Chief Complaint: Edema ED Midlevel Provider: Dina Forrester ED Provider: Zohaib Bailey Dx/Rx/DC Orders Clinical Impression: CHF (congestive heart failure), Bilateral lower extremity edema, Acute hyponatremia, Acute hyperkalemia, Cardiac amyloidosis Prescriptions: No Action aspirin [Adult Aspirin Regimen] 81 mg tablet,delayed release (DR/EC) 81 mg PO DAILY tafamidis 61 mg capsule 61 mg PO DAILY cholecalciferol (vitamin D3) 125 mcg (5,000 unit) capsule 125 mcg PO DAILY metoprolol succinate [Toprol XL] 25 mg tablet extended release 24 hr 12.5 mg PO DAILY PreserVision AREDS 4,296 mcg-226 mg-90 mg capsule 1 cap PO BID levothyroxine 88 mcg tablet 88 mcg PO DAILY benzocaine-menthol 6-10 mg lozenge 1 salvatore mucous membrane Q2H diclofenac sodium [Voltaren Arthritis Pain] 1 % gel 2 g topical 4X/DAY MAGIC MOUTH WASH (BMX) 180 mL suspension 5 ml PO Q4H PRN Qty: 180 doxepin 10 mg Capsule 10 mg PO 1999 30 Days Qty: 30 0RF ascorbic acid (vitamin C) 500 mg Tablet 500 mg PO 1000 30 Days Qty: 30 0RF sucralfate 1 gram Tablet 1 g PO BIDAC 30 Days Qty: 60 0RF polysaccharide iron complex [Ferrex 150] 150 mg iron Capsule 150 mg PO DAILY 30 Days Qty: 30 0RF potassium chloride 20 mEq Tablet,Er Particles/Crystals 20 meq PO DAILYCM 30 Days Qty: 30 0RF pantoprazole 40 mg Tablet,Delayed Release (Dr/Ec) 40 mg PO BID 30 Days Qty: 60 0RF mirtazapine 15 mg Tablet 7.5 mg PO 2000 30 Days Qty: 15 0RF atorvastatin [Lipitor] 10 mg tablet 10 mg PO QHS doxepin 10 mg capsule 10 mg PO QHS calcium carbonate [Tums] 200 mg calcium (500 mg) tablet,chewable 500 mg PO BID ascorbate calcium (vitamin C) 500 mg tablet 500 mg PO DAILY Zosyn in dextrose (iso-osm) 3.375 gram/50 mL piggyback 3.375 g IV Q8H 9 Days Rx Instructions: stop date 05/18/23 dx: mastoiditis weekly bmp and cbc. Fax to [phone]. Routine midline care per protocol. amoxicillin-pot clavulanate 875-125 mg tablet 1 tab PO BID oxycodone 5 mg capsule 2.5 mg PO Q6H acetaminophen 325 mg Tablet 650 mg PO Q6H PRN (Reason: Pain 1-10 Or Fever >100.7) melatonin 3 mg Tablet 3 mg PO QHS PRN (Reason: Insomnia) tramadol 50 mg Tablet 50 mg PO Q6H PRN (Reason: Pain Score 4-5) acetaminophen 500 mg Tablet 1,000 mg PO Q6H PRN (Reason: Pain Score 1-3) gabapentin 300 mg capsule 300 mg PO QHS Rx Instructions: Take for 180 days Primary Care Provider: Radha Mcrae Referrals: Radha Mcrae MD [Primary Care Provider] -
[2023-06-07 15:48] LABS: Absolute Lymphocyte Count 1.74 X10^3/uL (0.83-4.51); Absolute Neutrophil Count 9.6 X10^3/uL (2.0-7.7); Basophil# 0.02 X10^3/uL; Basophil% 0.2 % (0-1); Eosinophil# 0.02 X10^3/uL; Eosinophils% 0.2 % (0-5); Hematocrit 33.3 % (37-47); Hemoglobin 10.5 g/dL (12.0-15.0); Lymphocyte # 1.74 X10^3/ul (0.83-4.51); Lymphocyte % 13.3 % (19-41); Mean Corp Hgb Conc 31.5 g/dL (32-36); Mean Corpuscular Hgb 28.5 pg (27.0-32.0); Mean Corpuscular Volume 90.5 fL (81-99); Monocyte# 1.45 X10^3/uL; Monocyte% 11.1 % (0-10); NRBC Flagged by Analyzer 0 % (0-5); Neutrophil # 9.64 X10^3/uL (2.7-7.7); Neutrophil % 73.9 % (47-70); Platelet Count 242 K/mm3 (150-450); RBC Distribution Width CV 16.9 % (11.6-14.6); RBC Distribution Width SD 55.7 fl (35.1-43.9); Red Blood Count 3.68 M/mm3 (4.2-5.4)
[2023-06-07 15:52] LABS: Anion Gap 8 (5-15); BUN 10 mg/dL (7-18); BUN/Creat Ratio 13.3 RATIO (10-20); Calcium,Total 8.1 mg/dL (8.5-10.1); Chloride 98 mmol/L (98-107); Creatinine, Serum 0.75 mg/dL (0.55-1.02); EST Glomerular Filtration Rate 79 mL/min (>60); Est Glom Filt Rate - Afr Amer 95 mL/min (>60); Estimated Creatinine Clearance 54.02 ml/min; Glucose 96 mg/dL (74-106); Potassium 5.5 mmol/L (3.5-5.1); Sodium Level 129 mmol/L (136-145)
--- NOTE | 2023-06-07 16:29 | EKG12_ITS ---
Test Reason : Blood Pressure : / mmHG Vent. 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
[2023-06-07] MEDS: Dextrose 50%-Water 25 GM/50 ML DISP.SYRIN IV (17:35)
[2023-06-07] MEDS: Insulin Lispro 10 UNIT in Syringe 0 ML 6 UNIT IV (17:35)
[2023-06-07 17:46] LABS: Bedside Glucose 98 mg/dL (74-106)
[2023-06-07] MEDS: Lorazepam 2 MG/ML WCH Syringe 0.5 MG IV (19:15)
[2023-06-07] MEDS: 0.9% Normal Saline (250mL Bag) 250 ML 999 ML IV ×2 (20:30→22:00)
--- NOTE | 2023-06-07 23:48 | PCM.HP.STD ---
[facility] - General General Date of Admission: 06/07/23 Date of Service: 06/07/23 Chief Complaint: BL LE edema, issues with then resulting hypotension with IV lasix. HPI Narrative The patient is an 82 y/o F w/ PMHx: Hx VTE (PE, DVT) with Hypofibrinogenemia s/p IVC filter, Cardiac amyloidosis, Nonobstructive CAD, Hypothyroidism, GERD, GI bleed secondary to duodenal ulcer, Wild-type transthyretin-related (ATTR) amyloidosis with hypertrophic cardiomyopathy following with the [facility] on tafamidis, recent transition to TCU 05/31/2023 with several recent admission for fever of unclear origin initially, possibly multifactorial w/ noted gram-negative jodie possible pseudomonas growth in urine however colony count only 1,000-10,000, presumptive C albicans (candiduria) greater than 100,000 in addition to MRI with noted bilateral mastoiditis with recent history of group A streptococcal septic arthritis of the shoulder treated with course fluconazole, IV antibiotics including IV Zosyn as well as issues with recurrent GI bleed w/ resultant acute on chronic blood loss anemia secondary to recurrently bleeding from known previously evaluated duodenal ulcer with most recent upper endoscopy 05/19/2023 with normal esophagus, red blood in the gastric antrum with a spurting duodenal ulcer with visible vessel which was injected, tattooed and treated with a heater probe with hemostatic spray also applied with most recent GI evaluation 05/23/2023 with colonoscopy with reportedly blood in the entire examined colon, diverticulosis in the rectosigmoid colon, sigmoid colon and in the descending colon with recommendation at that time to refer to tertiary facility with eventual transition to [facility] for possible IR evaluation with at least 5 units PRBC administered at that time with eventually noted duodenal perforation undergoing a resection who now represents to the [facility] ED on 06/07/2023 with 1 week of issues with fluid balance with intermittent dehydration with poor oral intake however unfortunately patient then has onset of lower extremity increased edema with trial of IV Lasix however her blood pressures decreased as a result with eventual stop of her IV Lasix with [facility] recommendation for judicious hydration however family presented and requested patient present to the ED for transfer to [facility]. Patient has had no marked dyspnea, orthopnea or chest pain. Patient does have significant pedal edema bilaterally which has been an ongoing issue. Patient was accepted at [facility] however there are no beds and patient is awaiting placement. Workup in the ED included T97.4, heart rate 104, BP 106/69, respiratory rate 16, 98% on room air with most recent repeat vitals heart rate 110, BP 97/61, respiratory rate 18, 98% on room air, CBC with WBC 13, hemoglobin 10.5, MCV 90.5, platelet 242 with increased immature granulocytes with left shift, BMP with sodium 129, potassium 5.5 otherwise BMP not marked appearing, EKG with sinus tachycardia with nonspecific ST changes unchanged from prior with no acute evidence of ischemia. In the ED patient ministered Ativan 0.5 mg IV x 1 for anxiety, insulin 10 unit IV x 1 as well as dextrose amp for hyperkalemia. [facility] Medical History Abdominal pain Abdominal pain Abnormal stress echo Acid reflux Anticoagulant long-term use Arthritis Atherosclerosis of [place] coronary artery of [place] heart without angina pectoris Back problem Cellulitis of left lower extremity Chest pain Constipation Diverticulitis of sigmoid colon DVT (deep venous thrombosis) Essential hypertension Gastrointestinal hemorrhage Heart murmur Hemorrhoids History of pulmonary embolus (PE) (~2009) History of venous thrombosis and embolism hx of APLL Hyperlipidemia Hypertension Hypertrophic cardiomyopathy Hypofibrinogenemia Hypothyroidism Kidney disease LVH (left ventricular 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 Palpitations Personal history of colonic polyps Pulmonary embolism Severe left ventricular hypertrophy Severe mitral regurgitation Thrombophlebitis of superficial veins of left lower extremity Wild-type transthyretin-related (ATTR) amyloidosis Home Medications levothyroxine 88 mcg tablet 88 mcg PO DAILY THYROID 05/27/18 [History Last Taken 04/04/23] aspirin 81 mg tablet,delayed release (Adult Aspirin Regimen) 81 mg PO DAILY HEART HEALTH 12/12/19 [History Last Taken 05/08/23] tafamidis 61 mg capsule 61 mg PO DAILY HEART FAILURE 12/12/19 [History Last Taken 05/08/23] cholecalciferol (vitamin D3) 125 mcg (5,000 unit) capsule 125 mcg PO DAILY SUPPLEMENT 04/15/20 [History Last Taken 04/04/23] metoprolol succinate 25 mg tablet,extended release 24 hr (Toprol XL) 12.5 mg PO DAILY BLOOD PRESSURE 07/13/22 [History Last Taken 05/08/23] vitamins A,C,N-vrum-huhwcl 4,296 mcg-226 mg-90 mg capsule (PreserVision AREDS) 1 cap PO BID EYE HEALTH 01/11/23 [History Last Taken 04/04/23] gabapentin 300 mg capsule 300 mg PO QHS NEUROPATHY 02/16/23 [History Last Taken 05/07/23] MAGIC MOUTH WASH (BMX) 180 mL suspension 5 ml PO Q4H PRN Mouth pain #180 mL 04/20/23 [History Last Taken Unknown] benzocaine 6 mg-menthol 10 mg lozenges 1 salvatore mucous membrane Q2H Sore throat 04/20/23 [History Last Taken Unknown] diclofenac sodium 1 % topical gel (Voltaren Arthritis Pain) 2 g topical 4X/DAY Arthritis pain 04/20/23 [History Last Taken Unknown] ascorbate calcium (vitamin C) 500 mg tablet 500 mg PO DAILY Supplement 05/03/23 [History Last Taken Unknown] atorvastatin 10 mg tablet (Lipitor) 10 mg PO QHS Cholestrol 05/03/23 [History Last Taken 05/30/23] calcium carbonate 200 mg calcium (500 mg) chewable tablet (Tums) 500 mg PO BID Supplement 05/03/23 [History Last Taken Unknown] doxepin 10 mg capsule 10 mg PO QHS sleep 05/03/23 [History Last Taken Unknown] piperacillin-tazobactam 3.375 gram/50 mL dextrose(iso-os) IV piggyback (Zosyn) 3.375 g (56.25 mL) IV Q8H Antibiotic 9 days 05/08/23 [Rx Last Taken Unknown] ascorbic acid (vitamin C) 500 mg tablet 500 mg PO 1000 30 days #30 tabs 05/16/23 [Rx Last Taken Unknown] doxepin 10 mg capsule 10 mg PO 1999 30 days #30 caps 05/16/23 [Rx Last Taken Unknown] mirtazapine 15 mg tablet 7.5 mg (1/2 x 15 mg) PO 1999 mood/appetite 30 days #15 tabs 05/16/23 [Rx Last Taken Unknown] pantoprazole 40 mg tablet,delayed release 40 mg PO BID reflux 30 days #60 tabs 05/16/23 [Rx Last Taken Unknown] polysaccharide iron complex 150 mg iron capsule (Ferrex) 150 mg PO DAILY 30 days #30 caps 05/16/23 [Rx Last Taken Unknown] potassium chloride 20 mEq tablet,extended release(part/cryst) 20 meq PO DAILYCM supplement 30 days #30 tabs 05/16/23 [Rx Last Taken Unknown] sucralfate 1 gram tablet 1 g PO BIDAC prevent ulcers 30 days #60 tabs 05/16/23 [Rx Last Taken Unknown] amoxicillin 875 mg-potassium clavulanate 125 mg tablet 1 tab PO BID atibiotic 05/31/23 [History Last Taken Unknown] oxycodone 5 mg capsule 2.5 mg PO Q6H pain 05/31/23 [History Last Taken Unknown] acetaminophen 325 mg tablet 650 mg PO Q6H PRN Pain 1-10 Or Fever >100.7 06/07/23 [History Last Taken Unknown] acetaminophen 500 mg tablet 1,000 mg PO Q6H PRN Pain Score 1-3 06/07/23 [History Last Taken Unknown] melatonin 3 mg tablet 3 mg PO QHS PRN Insomnia 06/07/23 [History Last Taken Unknown] tramadol 50 mg tablet 50 mg PO Q6H PRN Pain Score 4-5 06/07/23 [History Last Taken Unknown] Allergy/AdvReac Type Severity Reaction Status Date / Time Iodinated Contrast Media Allergy Severe Hives Verified 05/07/23 10:54 [Iodinated Contrast- Oral and IV Dye] iodine Allergy Anaphylaxis Verified 05/07/23 10:54 Family History Mother Colon cancer Brother Myeloma Father Heart disease Surgical History History of cholecystectomy History of left heart catheterization (10/22/19) History of left hip replacement History of right hip replacement Hx of arthroscopic knee surgery Hx of bilateral inguinal hernia repair Hx of bladder repair surgery Hx of hysterectomy Hx of partial thyroidectomy Hx of umbilical hernia repair (~2009) Social History (Updated 06/07/23 @ 14:27 by Paz Colon) household members: spouse housing: house Smoking Status: Never smoker second hand exposure: No alcohol intake: never substance use type: does not use caffeine: Yes (very rare) what type of physical activity do you participate in: none frequency: does not exercise seatbelt use: always ROS ROS Narrative Admission Review of Systems: CONSTITUTIONAL: No weight loss, fever, chills, + weakness or fatigue. HEENT: + Chronic vision deficits with macular degeneration. Eyes: No blurred vision, double vision or yellow sclerae. Ears, Nose, Throat: No hearing loss, sneezing, congestion, runny nose or sore throat. SKIN: No rash or itching, lesions, wounds, + except occasional very staged ecchymoses, abrasion. CARDIOVASCULAR: + Bilateral lower extremity pitting edema. No chest pain, chest pressure or chest discomfort, palpitations, orthopnea, syncopal events. RESPIRATORY: No shortness of breath, cough or sputum, wheezing, hemoptysis. GASTROINTESTINAL: + anorexia. No nausea, vomiting or diarrhea, abdominal pain, melena, BRBPR. GENITOURINARY: No dysuria, frequency, urgency or retention. NEUROLOGICAL: No headache, dizziness, syncope, paralysis, ataxia, numbness or tingling in the extremities, focal weakness, change in bowel or bladder control, seizure. MUSCULOSKELETAL: + muscle, back pain, joint pain or stiffness. HEMATOLOGIC: + Chronic anemia, several recent issues with GI bleeds, easy bleeding. LYMPHATICS: No enlarged nodes. No history of splenectomy. PSYCHIATRIC: + History of anxiety and depression. ENDOCRINOLOGIC: No reports of sweating, cold or heat intolerance. No polyuria or polydipsia. ALLERGIES: + History of hives and anaphylaxis. Vital Signs Vital Signs Vital Signs: 06/07/23 14:09 06/07/23 14:29 06/07/23 14:08 Temperature 97.4 F L Temperature Source Oral Pulse Rate 104 H 111 H Respiratory Rate 16 20 H Respiratory Effort Normal Respiratory Pattern Normal Blood Pressure 106/69 106/61 Blood Pressure Mean 81 76 Pulse Ox 98 98 Oxygen Delivery Method Room Air Room Air 06/07/23 16:15 06/07/23 18:00 06/07/23 19:17 Temperature Temperature Source Pulse Rate 107 H 122 H 115 H Respiratory Rate 20 H 21 H 18 Respiratory Effort Respiratory Pattern Blood Pressure 100/71 102/53 L Blood Pressure Mean 80 69 Pulse Ox 98 99 99 Oxygen Delivery Method Room Air 06/07/23 21:15 06/07/23 20:45 06/07/23 21:00 Temperature Temperature Source Pulse Rate Respiratory Rate Respiratory Effort Respiratory Pattern Blood Pressure 99/54 L 102/52 L 91/52 L Blood Pressure Mean 69 68 65 Pulse Ox Oxygen Delivery Method 06/07/23 23:00 Temperature Temperature Source Pulse Rate 110 H Respiratory Rate 18 Respiratory Effort Respiratory Pattern Blood Pressure 97/61 Blood Pressure Mean 73 Pulse Ox 98 Oxygen Delivery Method Weight Weight: 159 lb 6.307 oz Body Mass Index (BMI) 26.5 Physical Exam Narrative Physical Examination: General: Awake, alert, oriented x 3 and cooperative, seated upright in the ED bed, fatigued, denies any complaints at this time. Skin: Normal color, normal turgor, no icterus, no cyanosis except for occasional and very staged ecchymoses especially extremities, likely some secondary to lab draws. HEENT: AT/NC, EOMI, PERRLA, mildly dry MM, no carotid bruits, no marked JVD noted. Lungs: Mildly diminished, greater bases, appropriate effort, no rales, ronchi or wheezing. Heart: Mildly tachycardic with regular rhythm; no gallop, rub audible. Abdomen: Soft, NTTP, ND, hyperactive BS, no appreciated HSM. Extremities: No cyanosis, no clubbing, bilateral pedal to distal thigh 2-3+ pitting edema bilaterally. Neurological: Patient awake, alert, oriented as noted, cognitive function intact; pupils equally reactive to light and accommodation, cranial nerves grossly normal, moving all 4 extremities, no focal deficits, strength moderately globally decreased. Psychiatric: Affect appears flat, fatigued, no acute evidence of depressive or anxiety feelings but does have underlying history. Results Lab / Micro Data 06/07/23 15:22 06/07/23 15:22 Labs: Laboratory Results - last 24 hr 06/07/23 15:22: WBC 13.0 H, RBC 3.68 L, Hgb 10.5 L, Hct 33.3 L, MCV 90.5, MCH 28.5, MCHC 31.5 L, RDW Std Deviation 55.7 H, RDW Coeff of Rashmi 16.9 H, Plt Count 242, MPV 9.0, Immature Gran % (Auto) 1.300 H, Neut % (Auto) 73.9 H, Lymph % (Auto) 13.3 L, Metcalfe % (Auto) 11.1 H, Eos % (Auto) 0.2, Baso % (Auto) 0.2, Absolute Neuts (auto) 9.6 H, Absolute Lymphs (auto) 1.74, Nucleated RBC % 0, Sodium 129 L, Potassium 5.5 H, Chloride 98, Carbon Dioxide 23.0, Anion Gap 8, BUN 10, Creatinine 0.75, Estim Creat Clear Calc 54.02, Est GFR (MDRD) Af Amer 95, Est GFR (MDRD) Non-Af 79, BUN/Creatinine Ratio 13.3, Glucose 96, Calcium 8.1 L 06/07/23 17:29: POC Glucose 98 Assessment & Plan Assessment/Plan (1) Acute hyperkalemia: PLAN: Plan The patient is an 82 y/o F w/ PMHx: Hx VTE (PE, DVT) with Hypofibrinogenemia s/p IVC filter, Cardiac amyloidosis, Nonobstructive CAD, Hypothyroidism, GERD, GI bleed secondary to duodenal ulcer, Wild-type transthyretin-related (ATTR) amyloidosis with hypertrophic cardiomyopathy following with the [facility] on tafamidis, recent transition to TCU 05/31/2023 following tertiary evaluation for recurrent GI bleed with duodenal perforation reported who now re-represents to the [facility] ED on 06/07/23 with 1 week of issues with fluid balance with intermittent dehydration with poor oral intake however unfortunately patient then has onset of lower extremity increased edema with trial of IV Lasix however her blood pressures decreased as a result with eventual stop of her IV Lasix with [facility] recommendation for judicious hydration however family presented and requested patient present to the ED for transfer to [facility]. #1. Intermittent bilateral lower extremity edema with concern for possible overload complicated by underlying wild-type transthyretin-related (ATTR) amyloidosis with hypertrophic cardiomyopathy: Most recent noted echocardiogram in the [employer] system 11/12/2019 with RV normal size, RV systolic function normal, tricuspid annular displacement 1.7 cm, RVSP likely underestimated due to weak or incomplete tricuspid regurgitation signal, grade 2 LV diastolic dysfunction, global LV myocardial strain abnormal, following closely with cardiology.given awaiting bed at [facility] to which patient has been accepted but no availability as of yet will admit to PCU to closely monitor, per cardiology at [facility] given issues with intermittent hypotension with recent diuresis secondary to leg edema will avoid continue diuresis and judiciously pulse hydrate, will continue home statin, metoprolol as BP allows, tafamidis, will avoid lasix, place snug BL LE DEVIN wraps with BL LE elevation, monitor I+Os, no overt hypoxia currently, BNP requested as well as echocardiogram given complaints of intermittent difficulties with lower extremity swelling. #2. Leukocytosis with left shift complicated by recent history of candiduria, shoulder septic arthritis, imaging concern for mastoiditis: Unclear exact etiology, although patient has had recurrent issues, most recently prior to this 06/01/2023 CBC with WBC 7.2, will obtain chest x-ray as well as urinalysis to be cautious in addition to procalcitonin, trend CBC with repeat in AM. #3. Hyperkalemia, mild: Admission K+ 5.5, administered IV insulin/dextrose, EKG without acute findings, will repeat BMP now and further treat pending results. Hold oral K supplementation. #4. Nonobstructive CAD: Will continue baby asa, continue metoprolol as BP allows and statin. #5. Chronic bilateral lower extremity edema: Will place neck Devin wraps with elevation and per [facility] recommendation will hold further Lasix and very judiciously pulse hydrate. #6. Hx VTE (DVT, PE) with Hypofibrinogenemia: s/p IVC filter, recent issues with serial re-presentations with GI bleed and eventual duodenal ulcer with perforation, off anticoagulation, will continue high dose PPI, sucralafate regimen. #7. Hypertension: Continue home regimen including metoprolol as BP allows, PRN hydralazine. #8. Hyperlipidemia: We will continue patient on statin therapy. #9. Hypothyroidism: We will continue patient on levothyroxine regimen. #10. Anxiety and depression: We will continue patient home Remeron regimen. #11. Chronic neuropathy: We will continue patient home chronic gabapentin regimen. #12. Chronic anemia/iron deficiency anemia: Admission CBC with hemoglobin 10.5, MCV 90.5, hemoglobin prior to this primarily 9-10 range, appears stable, Will continue patient home iron and vitamin C supplementation. #13. DVT prophylaxis: Given recent complicated history to be cautious will place SCDs until cleared per her surgeon at follow-up. #14. CODE status: Patient JESE is her and living will is currently in place she believes. Discussed CODE status at length including difference between FULL code, DNR-CCA and DNR-CC status. Following discussions about the differences in these status, requested Full Code status. Advanced Care Planning Face to Face Time: 16 minutes. Charges/Coding Visit Charges Inpatient E&M: 64467 Init Hosp L3 Procedures Hospitalists Procedures: 57877 Advncd Care Plan 30 Min
[2023-06-08] VITALS (12 sets, daily range): BP systolic 93–108; BP diastolic 60–72; PULSE 92–117; RESP 16–18; TEMP 36.6–37.3; O2SAT 96–100; BMI 24.9; BMI 25.0
[2023-06-08 01:14] LABS: Anion Gap 7 (5-15); BUN 9 mg/dL (7-18); BUN/Creat Ratio 13.4 RATIO (10-20); Chloride 100 mmol/L (98-107); Creatinine, Serum 0.67 mg/dL (0.55-1.02); EST Glomerular Filtration Rate 89 mL/min (>60); Est Glom Filt Rate - Afr Amer 108 mL/min (>60); Estimated Creatinine Clearance 54.02 ml/min; Glucose 101 mg/dL (74-106); Potassium 5.1 mmol/L (3.5-5.1); Sodium Level 131 mmol/L (136-145)
--- NOTE | 2023-06-08 01:32 | ECHOD_ITS ---
Reason For Study: CHF Procedure This was a 2D Doppler, Color Flow transthoracic echocardiogram. Myocardial strain analysis was performed in this exam to aid in the assessment of cardiac function. Exam performed portable in patient room. Left Ventricle Normal LV size. Severe concentric left ventricular hypertrophy. Stage 1 diastolic dysfunction. The left ventricular ejection fraction is 70 %. No regional wall motion abnormalities noted. Right Ventricle Normal RV size. Normal systolic function. Atria Normal left atrium. Normal right atrium. Mitral Valve Normal mitral valve. Mild (1+) eccentric mitral valve insufficiency. Tricuspid Valve Normal tricuspid valve. Mild tricuspid valve insufficiency. Pulmonary artery systolic pressure is 26 mmHg. Aortic Valve Trisinus/trileaflet aortic valve. Pulmonic Valve Normal pulmonic valve. Great Vessels Normal aortic root. The pulmonary artery is normal size. Inferior vena cava collapse with respiration. Pericardium/Pleural Small pericardial effusion. MMode/2D Measurements & Calculations LVIDd: 3.0 cm IVSd: 2.0 cm LVOT diam: 2.0 cm LVIDs: 1.9 cm LVPWd: 1.7 cm LVOT area: 3.0 cm2 RVDd: 2.9 cm FS: 35.3 % Ao root diam: 2.6 cm LAV(MOD-bp): 41.9 ml LVAd ap4: 15.7 cm2 LAV(MOD-bp) Indexed: 23.3 ml/m2 LVLd ap4: 7.6 cm LAV(MOD-sp2): 39.3 ml EDV(MOD-sp4): 26.5 ml LAV(MOD-sp4): 39.2 ml EDV(sp4-el): 27.7 ml LVAs ap4: 8.9 cm2 LVLs ap4: 6.8 cm ESV(MOD-sp4): 10.6 ml ESV(sp4-el): 10.0 ml EF(MOD-sp4): 60.1 % EF(sp4-el): 63.8 % SV(MOD-sp4): 16.0 ml SV(sp4-el): 17.7 ml LA A4 area: 15.7 cm2 LA dimension(2D): 2.8 cm RA A4 area: 8.5 cm2 TAPSE: 1.6 cm Doppler Measurements & Calculations MV E max olman: 61.5 cm/sec Lat Peak E' Olman: 4.9 cm/sec Med Peak E' Olman: 4.9 cm/sec MV A max olman: 110.6 cm/sec E/E' lat: 12.7 E/E' med: 12.7 MV E/A: 0.56 Ao V2 max: 249.6 cm/sec LV V1 max: 181.9 cm/sec SV(LVOT): 102.0 ml Ao max P.0 mmHg LV V1 max P.2 mmHg Ao V2 mean: 183.6 cm/sec LV V1 mean P.0 mmHg Ao mean P.8 mmHg LV V1 mean: 142.9 cm/sec Ao V2 VTI: 39.0 cm LV V1 VTI: 33.7 cm AV (velocity ratio): 0.87 MORGAN(I,D): 2.6 cm2 MORGAN(V,D): 2.2 cm2 PA V2 max: 110.4 cm/sec TR max olman: 235.2 cm/sec TR max P.1 mmHg ECHO/Echo Complete Interpretation Summary Normal LV size. Severe concentric left ventricular hypertrophy. The left ventricular ejection fraction is 70 %. Mid cavity obliteration noted Apical sparing noted suggestive of amyloid Mid cavitary gradient increases from 30 mmHg at rest to approximately 55 mmHg w ith Valsalva. Compared to the previous echocardiographic findings these essentially unchanged . The global longitudinal strain is moderately abnormal. The global longitudinal strain = -1 1.4% (abnormal). Ordering Physician: Bekah Rodrigues Referring Physician: Radha Mcrae Performed By: Kate Santoyo, ARNALDO, RVT
[2023-06-08] MEDS: Pantoprazole Sodium 40 MG Tablet PO ×3 (02:07→21:27)
[2023-06-08] MEDS: BENZOCAINE/MENTHOL 1 LOZENGE MUCOUS MEM (02:07)
[2023-06-08] MEDS: Doxepin Hydrochloride 10 MG Capsule PO ×2 (02:07→21:28)
[2023-06-08] MEDS: Atorvastatin Calcium 10 MG Tablet PO ×2 (02:07→21:27)
[2023-06-08] MEDS: Metoprolol(XL)Succ 25 MG Tablet 12.5 MG PO ×2 (02:07→12:21)
[2023-06-08] MEDS: Gabapentin 300 MG Capsule PO ×2 (02:08→21:27)
[2023-06-08 02:43] LABS: BNP,B-Type NATRIURETIC PEPTIDE 397.3 pg/mL (0-100)
[2023-06-08 02:52] LABS: Procalcitonin 0.11 ng/mL (0.00-0.09)
[2023-06-08] MEDS: Levothyroxine 88 MCG Tablet PO (05:53)
[2023-06-08] MEDS: Sucralfate 1 GM Tablet PO ×2 (05:53→17:57)
--- NOTE | 2023-06-08 06:30 | RAD_ITS ---
INDICATION: Leukocytosis EXAMINATION/TECHNIQUE: X-RAY - XR Chest 2 Views COMPARISON: May 03, 2023 FINDINGS: LINES/DEVICES: None. LUNGS: Mild right lower lung linear atelectasis. No consolidation, edema or effusion. No pneumothorax. MEDIASTINUM AND CARDIOVASCULAR STRUCTURES: Cardiac silhouette not enlarged. BONES AND SOFT TISSUES: Unremarkable. Cervical fixation hardware present. Prominent air-filled bowel in the upper abdomen RAD/Chest PA and Lateral IMPRESSION: No radiographic evidence of consolidative pneumonia or florid edema. Electronically Signed: Franklin Salazar MD at 7:52 EST ,
[2023-06-08 06:41] LABS: Absolute Lymphocyte Count 1.51 X10^3/uL (0.83-4.51); Absolute Neutrophil Count 8.7 X10^3/uL (2.0-7.7); Basophil# 0.04 X10^3/uL; Basophil% 0.3 % (0-1); Eosinophil# 0.03 X10^3/uL; Eosinophils% 0.3 % (0-5); Hemoglobin 9.3 g/dL (12.0-15.0); Lymphocyte # 1.51 X10^3/ul (0.83-4.51); Lymphocyte % 13.1 % (19-41); Mean Corpuscular Hgb 27.9 pg (27.0-32.0); Mean Corpuscular Volume 90.1 fL (81-99); Mean Platelet Vol. 9.2 fl (6.2-12.0); Monocyte# 1.13 X10^3/uL; Monocyte% 9.8 % (0-10); NRBC Flagged by Analyzer 0 % (0-5); Neutrophil # 8.66 X10^3/uL (2.7-7.7); Neutrophil % 75.4 % (47-70); Platelet Count 242 K/mm3 (150-450); RBC Distribution Width CV 16.3 % (11.6-14.6); RBC Distribution Width SD 53.4 fl (35.1-43.9); Red Blood Count 3.33 M/mm3 (4.2-5.4); White Blood Count 11.5 K/mm3 (4.4-11.0)
[2023-06-08 08:07] LABS: ALB/GLOB Ratio 0.4 RATIO (0.9-2.4); AST(SGOT) 73 U/L (15-37); Alanine Aminotransfer ALT/SGPT 41 U/L (13-56); Albumin, Serum 1.2 g/dL (3.2-5.0); Alkaline Phosphatase 107 U/L (45-117); Anion Gap 8 (5-15); BUN 9 mg/dL (7-18); BUN/Creat Ratio 16.2 RATIO (10-20); Calcium,Total 7.9 mg/dL (8.5-10.1); Chloride 101 mmol/L (98-107); Creatinine, Serum 0.56 mg/dL (0.55-1.02); EST Glomerular Filtration Rate 111 mL/min (>60); Est Glom Filt Rate - Afr Amer 134 mL/min (>60); Estimated Creatinine Clearance 48.79 ml/min; Globulin 2.9 g/dL (2.2-4.2); Glucose 96 mg/dL (74-106); Potassium 5.2 mmol/L (3.5-5.1); Protein, Total 4.1 g/dL (6.4-8.2); Sodium Level 128 mmol/L (136-145)
--- NOTE | 2023-06-08 08:15 | PCM.PN.HOSP ---
Reason for Visit Reason for Visit: Diagnoses Hyperkalemia (06/07/23) Objective Data Objective Data Vital Signs: Vital Signs Temp Pulse Resp BP Pulse Ox O2 Del Method 99.2 F H 103 H 16 102/63 97 Room Air 06/08/23 06:00 06/08/23 06:00 06/08/23 06:00 06/08/23 06:00 06/08/23 07:27 06/08/23 07:27 Oxygen Delivery Method Room Air Weight: 150 lb 9.211 oz Body Mass Index (BMI) 25.0 Intake & Output: Intake and Output for Last 24 Hours 06/06/23 06/07/23 06/08/23 23:59 23:59 23:59 Intake Total 500 / 500 150 / 150 Output Total 60 / 60 Balance 500 / 500 90 / 90 Lab / Micro Data 06/08/23 05:27 06/08/23 05:27 Labs: Laboratory Results - last 24 hr 06/07/23 15:22: WBC 13.0 H, RBC 3.68 L, Hgb 10.5 L, Hct 33.3 L, MCV 90.5, MCH 28.5, MCHC 31.5 L, RDW Std Deviation 55.7 H, RDW Coeff of Rashmi 16.9 H, Plt Count 242, MPV 9.0, Immature Gran % (Auto) 1.300 H, Neut % (Auto) 73.9 H, Lymph % (Auto) 13.3 L, [place] % (Auto) 11.1 H, Eos % (Auto) 0.2, Baso % (Auto) 0.2, Absolute Neuts (auto) 9.6 H, Absolute Lymphs (auto) 1.74, Nucleated RBC % 0, Sodium 129 L, Potassium 5.5 H, Chloride 98, Carbon Dioxide 23.0, Anion Gap 8, BUN 10, Creatinine 0.75, Estim Creat Clear Calc 54.02, Est GFR (MDRD) Af Amer 95, Est GFR (MDRD) Non-Af 79, BUN/Creatinine Ratio 13.3, Glucose 96, Calcium 8.1 L 06/07/23 17:29: POC Glucose 98 06/08/23 00:26: Sodium 131 L, Potassium 5.1, Chloride 100, Carbon Dioxide 24.0, Anion Gap 7, BUN 9, Creatinine 0.67, Estim Creat Clear Calc 54.02, Est GFR (MDRD) Af Amer 108, Est GFR (MDRD) Non-Af 89, BUN/Creatinine Ratio 13.4, Glucose 101, Calcium 8.0 L, B-Natriuretic Peptide 397.3 H, Procalcitonin 0.11 H 06/08/23 05:27: WBC 11.5 H, RBC 3.33 L, Hgb 9.3 L, Hct 30.0 L, MCV 90.1, MCH 27.9, MCHC 31.0 L, RDW Std Deviation 53.4 H, RDW Coeff of Rashmi 16.3 H, Plt Count 242, MPV 9.2, Immature Gran % (Auto) 1.100 H, Neut % (Auto) 75.4 H, Lymph % (Auto) 13.1 L, [place] % (Auto) 9.8, Eos % (Auto) 0.3, Baso % (Auto) 0.3, Absolute Neuts (auto) 8.7 H, Absolute Lymphs (auto) 1.51, Nucleated RBC % 0, Sodium 128 L, Potassium 5.2 H, Chloride 101, Carbon Dioxide 19.0 L, Anion Gap 8, BUN 9, Creatinine 0.56, Estim Creat Clear Calc 48.79, Est GFR (MDRD) Af Amer 134, Est GFR (MDRD) Non-Af 111, BUN/Creatinine Ratio 16.2, Glucose 96, Calcium 7.9 L, Total Bilirubin 0.30, AST 73 H, ALT 41, Alkaline Phosphatase 107, Total Protein 4.1 L, Albumin 1.2 L, Globulin 2.9, Albumin/Globulin Ratio 0.4 L Radiography Diagnostic Testing: Radiology Impression Chest X-Ray 06/08/23 06:30 IMPRESSION: No radiographic evidence of consolidative pneumonia or florid edema. Electronically Signed: Franklin Salazar MD at 7:52 EST Reading Location ID and State: [facility] / [place] Tel , Service support , Physical Exam Narrative Seen and examined. Patient denies any new chest pain pressure tightness or shortness of breath. She is eating breakfast. Bilateral lower extremity edema. Discussed with patient's and son near the bedside. With the diuretic she gets very dehydrated and does not help her leg edema. General: Alert, Oriented x3, Cooperative HEENT: Atraumatic, PERRLA, EOMI, Normocephalic Oral: Oral mucosa dry. No Gingival or Mucosal Lesions/ Ulcerations Neck: Supple, No JVD, Negative Carotid Bruits Chest wall/Lungs: Air entry diminished in bilateral lung bases. No crepitation/rhonchi Cardiovascular: Regular rate, Regular Rhythm, Normal S1, Normal S2, No M/G/R Abdomen: Bowel Sounds Present, Soft, Non Tender, Non-Distended : No dysuria. No renal angle tenderness. No suprapubic tenderness. Extremities: Bilateral lower extremity edema up to thigh level 3+ capillary Refill Less than 3 Seconds Skin: No rashes, No breakdown Musculoskeletal: No Tenderness to Palpation of Joints or Extremities Neurological: Cranial nerves II-XII grossly intact, DTR 2+/4. No acute focal neurological deficit. Psych/Mental Status: Normal Affect, Appropriate. Assessment & Plan Assessment/Plan (1) Acute hyperkalemia: PLAN: Plan The patient is an 82 y/o F was admitted from TCU through ED for being tired, weakness dehydration, tachycardia and low blood pressure issues complicated by his bilateral leg edema with fluid balance over last 1 week. 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 Patient was transferred to [facility] on 05/19 where he had exploratory laparotomy for duodenal perforation with open abdomen and drain. In second stage surgery patient had also resection surgery with gastric bypass. Patient was admitted to TCU for rehab. #1. Bilateral leg edema with cardiac amyloidosis, transthyretin related with hypertrophic cardiomyopathy: [facility]. Twelve-lead EKG sinus rhythm with no hyperkalemic changes. Patient had hyperkalemia cocktail in ED. ED physician discussed with cardiac emergency specialist Dr. Marcin Zamora and patient accepted to the heart failure service. #2. Leukocytosis with left shift complicated by recent history of candiduria, shoulder septic arthritis, imaging concern for mastoiditis: Unclear exact etiology, although patient has had recurrent issues, most recently prior to this 06/01/2023 CBC with WBC 7.2 #3. Hyperkalemia, mild: Admission K+ 5.5, administered IV insulin/dextrose, EKG without acute findings, will repeat BMP now and further treat pending results. Hold oral K supplementation. 06/17 repeat potassium 5.2. Patient not having any hyperkalemic signs. Patient also with hyponatremia sodium 128. It seems patient has subcutaneous interstitial edema but intravascularly she is dry. #4. Nonobstructive CAD: Will continue baby asa, continue metoprolol as BP allows and statin. #5. Chronic bilateral lower extremity edema:Devin wraps with elevation and per [facility] recommendation will hold further Lasix. #6. Hx VTE (DVT, PE) with Hypofibrinogenemia: s/p IVC filter, recent issues with serial re-presentations with GI bleed and eventual duodenal ulcer with perforation, off anticoagulation, will continue high dose PPI, sucralafate regimen. #7. Hypertension: Continue home regimen including metoprolol as BP allows, PRN hydralazine. #8. Hyperlipidemia: We will continue patient on statin therapy. #9. Hypothyroidism: We will continue patient on levothyroxine regimen. #10. Anxiety and depression: We will continue patient home Remeron regimen. #11. Chronic neuropathy: We will continue patient home chronic gabapentin regimen. #12. Chronic anemia/iron deficiency anemia: Admission CBC with hemoglobin 10.5, MCV 90.5, hemoglobin prior to this primarily 9-10 range, appears stable, continue patient home iron and vitamin C supplementation. 06/07: H&H 9.3/30%. Platelet count 242,000. #13. DVT prophylaxis: Given recent complicated history to be cautious will place SCDs until cleared per her surgeon at follow-up. #14. CODE status: Patient JESE is her and living will is currently in place she believes. Discussed CODE status at length including difference between FULL code, DNR-CCA and DNR-CC status. Following discussions about the differences in these status, requested Full Code status. Charges/Coding Visit Charges Inpatient E&M: 97564 Subs Hosp L2
[2023-06-08] MEDS: Menthol/Lanolin/Calamine/Znox 113 GM Tube 1 APPLIC TOPICAL ×4 (09:42→21:28)
[2023-06-08] MEDS: Iron Polysaccharide Complex 150 MG CAPSULE PO (09:42)
[2023-06-08] MEDS: Ascorbic Acid 500 MG Tablet PO (09:43)
[2023-06-08] MEDS: Multivitamin (Healthy Eyes) Capsule 1 CAP PO ×2 (09:58→21:27)
[2023-06-08] MEDS: TAFAMIDIS 61 MG CAPSULE PO (10:24)
[2023-06-08] MEDS: 0.9% Normal Saline (1000mL) 1,000 ML 100 ML IV (17:57)
[2023-06-08] MEDS: LORazepam 0.5 MG Tablet 0.25 MG PO (18:19)
[2023-06-08] MEDS: Mirtazapine 15 MG Tablet 7.5 MG PO (21:27)
[2023-06-09] VITALS (9 sets, daily range): BP systolic 93–110; BP diastolic 54–66; PULSE 86–102; RESP 16–18; TEMP 36.3–37.3; O2SAT 95–100; BMI 25.8
[2023-06-09] MEDS: 0.9% Normal Saline (1000mL) 1,000 ML 100 ML IV (05:24)
[2023-06-09] MEDS: Levothyroxine 88 MCG Tablet PO (05:25)
[2023-06-09] MEDS: Sucralfate 1 GM Tablet PO ×2 (05:25→15:35)
[2023-06-09 06:28] LABS: Bacteria 0 SEEN /hpf (None Seen); Mucous, Urine 0 SEEN /hpf (<or=2+); Red Blood Cells-Urine 0 SEEN /hpf (0-5); Squamous Epithelial Cells - UA 0 SEEN /hpf (5-10); White Blood Cells 0 SEEN /hpf (0-5)
[2023-06-09 06:33] LABS: Color, Urine Yellow (Yellow); Glucose, Dipstick Normal (Normal); Ketone-Dipstick Negative (Negative); Leukocyte Esterase-Dipstick Negative /ul (Negative); Nitrite-Dipstick Negative (Negative); Occult Blood-Urine Negative /ul (Negative); Protein-Dipstick Negative (Negative); Urine Bilirubin Dipstick Negative (Negative); Urine Clarity Clear (Clear); Urine Urobilinogen Normal (Normal); Urine pH 6.5 (5.0 - 8.0)
--- NOTE | 2023-06-09 07:49 | PCM.PN.HOSP ---
Reason for Visit Reason for Visit: Diagnoses Hyperkalemia (06/07/23) Objective Data Objective Data Vital Signs: Vital Signs Temp Pulse Resp BP Pulse Ox O2 Del Method 98.6 F 99 16 101/54 L 96 Room Air 06/09/23 03:30 06/09/23 03:30 06/09/23 03:30 06/09/23 03:30 06/09/23 03:30 06/09/23 03:44 Oxygen Delivery Method Room Air Weight: 155 lb 6.814 oz Body Mass Index (BMI) 25.8 Intake & Output: Intake and Output for Last 24 Hours 06/07/23 06/08/23 06/09/23 23:59 23:59 23:59 Intake Total 500 / 500 750 / 750 1000 / 1000 Output Total 525 / 525 550 / 550 Balance 500 / 500 225 / 225 450 / 450 Lab / Micro Data 06/08/23 05:27 06/08/23 05:27 Labs: Laboratory Results - last 24 hr 06/08/23 05:27: Sodium 128 L, Potassium 5.2 H, Chloride 101, Carbon Dioxide 19.0 L, Anion Gap 8, BUN 9, Creatinine 0.56, Estim Creat Clear Calc 48.79, Est GFR (MDRD) Af Amer 134, Est GFR (MDRD) Non-Af 111, BUN/Creatinine Ratio 16.2, Glucose 96, Calcium 7.9 L, Total Bilirubin 0.30, AST 73 H, ALT 41, Alkaline Phosphatase 107, Total Protein 4.1 L, Albumin 1.2 L, Globulin 2.9, Albumin/Globulin Ratio 0.4 L 06/09/23 05:48: Urine Color Yellow, Urine Clarity Clear, Urine pH 6.5, Ur Specific [place] 1.010, Urine Protein Negative, Urine Glucose (UA) Normal, Urine Ketones Negative, Urine Occult Blood Negative, Urine Nitrite Negative, Urine Bilirubin Negative, Urine Urobilinogen Normal, Ur Leukocyte Esterase Negative, Urine RBC 0 SEEN, Urine WBC 0 SEEN, Ur Squamous Epith Cells 0 SEEN, Urine Bacteria 0 SEEN, Urine Mucus 0 SEEN Radiography Diagnostic Testing: Radiology Impression Echocardiogram 06/08/23 01:32 Interpretation Summary Normal LV size. Severe concentric left ventricular hypertrophy. The left ventricular ejection fraction is 70 %. Mid cavity obliteration noted Apical sparing noted suggestive of amyloid Mid cavitary gradient increases from 30 mmHg at rest to approximately 55 mmHg with Valsalva. Compared to the previous echocardiographic findings these essentially unchanged. The global longitudinal strain is moderately abnormal. The global longitudinal strain = -11.4% (abnormal). Ordering Physician: Bekah Rodrigues Referring Physician: Radha Mcrae Performed By: Kate Santoyo, RDCS, RVT Chest X-Ray 06/08/23 06:30 IMPRESSION: No radiographic evidence of consolidative pneumonia or florid edema. Electronically Signed: Franklin Salazar MD at 7:52 EST Reading Location ID and State: [facility] / [place] Tel , Service support , Physical Exam Narrative Seen and examined. Patient denies any new chest pain pressure tightness or shortness of breath. Patient is comfortable. She had about 30 mill normal saline yesterday. Bilateral lower extremity edema also looks better. Discussed with patient's and son and 2 daughters near the bedside. Physical exam General: Alert, Oriented x3, Cooperative HEENT: Atraumatic, PERRLA, EOMI, Normocephalic Oral: Oral mucosa dry. No Gingival or Mucosal Lesions/ Ulcerations Neck: Supple, No JVD, Negative Carotid Bruits Chest wall/Lungs: Air entry diminished in bilateral lung bases. No crepitation/rhonchi Cardiovascular: Regular rate, Regular Rhythm, Normal S1, Normal S2, No M/G/R Abdomen: Bowel Sounds Present, Soft, Non Tender, Non-Distended : No dysuria. No renal angle tenderness. No suprapubic tenderness. Extremities: Bilateral lower extremity edema up to thigh level 3+ capillary Refill Less than 3 Seconds Skin: No rashes, No breakdown Musculoskeletal: No Tenderness to Palpation of Joints or Extremities Neurological: Cranial nerves II-XII grossly intact, DTR 2+/4. No acute focal neurological deficit. Psych/Mental Status: Normal Affect, Appropriate. Assessment & Plan Assessment/Plan (1) Acute hyperkalemia: PLAN: Plan The patient is an 82 y/o F was admitted from TCU through ED for being tired, weakness dehydration, tachycardia and low blood pressure issues complicated by his bilateral leg edema with fluid balance over last 1 week. 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 Patient was transferred to [facility] on 05/19 where he had exploratory laparotomy for duodenal perforation with open abdomen and drain. In second stage surgery patient had also resection surgery with gastric bypass. Patient was admitted to TCU for rehab. #1. Bilateral leg edema with cardiac amyloidosis, transthyretin related with hypertrophic cardiomyopathy consistent with chronic HFpEF: [facility]. Twelve-lead EKG sinus rhythm with no hyperkalemic changes. Patient had hyperkalemia cocktail in ED. ED physician discussed with cardiac emergency specialist Dr. Marcin Zamora and patient accepted to the heart failure service. 2D echo shows EF 70%, mild MR, mild TR, severe concentric LVH, no RWMA. Normal RV size and systolic function. IVC collapse with respiration. No significant change from the prior echo of December 2019 at [facility]. #2. Leukocytosis with left shift complicated by recent history of candiduria, shoulder septic arthritis, imaging concern for mastoiditis: Unclear exact etiology, although patient has had recurrent issues, most recently prior to this 06/01/2023 CBC with WBC 7.2 #3. Hyperkalemia, mild: Admission K+ 5.5, administered IV insulin/dextrose, EKG without acute findings, will repeat BMP now and further treat pending results. Hold oral K supplementation. 06/07 repeat potassium 5.2. Patient not having any hyperkalemic signs. Patient also with hyponatremia sodium 128. It seems patient has subcutaneous interstitial edema but intravascularly she is dry. 06/08: No significant change in electrolytes. Sodium decreased from 129 to 128, potassium 5.2. Did not show improvement with IV fluid normal saline. Normal sinus rhythm on library monitor. #4. Nonobstructive CAD: l continue baby asa, continue metoprolol as BP allows and statin. #5. Chronic bilateral lower extremity edema:Devin wraps with elevation and per [facility] recommendation will hold further Lasix. #6. Hx VTE (DVT, PE) with Hypofibrinogenemia: s/p IVC filter, recent issues with serial re-presentations with GI bleed and eventual duodenal ulcer with perforation, off anticoagulation, will continue high dose PPI, sucralafate regimen. #7. Hypertension: Continue home regimen including metoprolol as BP allows, PRN hydralazine. #8. Hyperlipidemia: We will continue patient on statin therapy. #9. Hypothyroidism: We will continue patient on levothyroxine regimen. #10. Anxiety and depression: We will continue patient home Remeron regimen. #11. Chronic neuropathy: We will continue patient home chronic gabapentin regimen. #12. Chronic anemia/iron deficiency anemia: Admission CBC with hemoglobin 10.5, MCV 90.5, hemoglobin prior to this primarily 9-10 range, appears stable, continue patient home iron and vitamin C supplementation. 06/07: H&H 9.3/30%. Platelet count 242,000. #13. DVT prophylaxis: Given recent complicated history to be cautious will place SCDs until cleared per her surgeon at follow-up. #14. CODE status: Patient JESE is her and living will is currently in place she believes. Discussed CODE status at length including difference between FULL code, DNR-CCA and DNR-CC status. Following discussions about the differences in these status, requested Full Code status. Total time of the visit including total time spent in counseling or coordination of care, (more than 50% of the total time, spent in obtaining medical information from nurses and other ancillary care providers,explaining to the patient about labs, imaging, diagnosis and management of active complex medical conditions), discussion with the family members regarding labs, review and comparison of echo the ending diagnosis of cardiac amyloidosis and its management, review of labs and imaging is 40 minutes. Charges/Coding Visit Charges Inpatient E&M: 40683 Subs Hosp L3
--- NOTE | 2023-06-09 09:06 | NURSING ---
Called [facility] regarding transfer, still awaiting bed assignment at this time. No beds currently. boat master aware.
[2023-06-09] MEDS: Multivitamin (Healthy Eyes) Capsule 1 CAP PO ×2 (10:13→19:49)
[2023-06-09] MEDS: Metoprolol(XL)Succ 25 MG Tablet 12.5 MG PO (10:14)
[2023-06-09] MEDS: TAFAMIDIS 61 MG CAPSULE PO (10:14)
[2023-06-09] MEDS: Menthol/Lanolin/Calamine/Znox 113 GM Tube 1 APPLIC TOPICAL ×3 (10:14→17:25)
[2023-06-09] MEDS: 0.9% Saline Lock 10 ML Syringe IV ×2 (10:14→11:38)
[2023-06-09] MEDS: Iron Polysaccharide Complex 150 MG CAPSULE PO (10:14)
[2023-06-09] MEDS: Pantoprazole Sodium 40 MG Tablet PO ×2 (10:14→19:49)
[2023-06-09] MEDS: Furosemide 20 MG/2 ML VIAL IV (10:14)
[2023-06-09] MEDS: Ascorbic Acid 500 MG Tablet PO (10:14)
[2023-06-09] MEDS: Ondansetron 4 MG/2 ML Vial IV (11:38)
--- NOTE | 2023-06-09 17:11 | NURSING ---
Report called to [facility] nurse Molina for pt to be transferred.
--- NOTE | 2023-06-09 18:15 | PCM.DC.SUM ---
Providers Date of Admission: 06/07/23 Date of Discharge: 06/09/23 Primary Care Physician: Dr. Radha Mcrae MD Reason For Visit: HYPERKALEMIA, ? HF, LEUKOCYTOSIS Diagnosis Discharge Diagnosis (1) Acute hyperkalemia: Status: Acute Code(s): E87.5 - Hyperkalemia Plan The patient is an 82 y/o F was admitted from TCU through ED for being tired, weakness dehydration, tachycardia and low blood pressure issues complicated by his bilateral leg edema with fluid balance over last 1 week. 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 Patient was transferred to [facility] on 05/19 where he had exploratory laparotomy for duodenal perforation with open abdomen and drain. In second stage surgery patient had also resection surgery with gastric bypass. Patient was admitted to TCU for rehab. #1. Bilateral leg edema with cardiac amyloidosis, transthyretin related with hypertrophic cardiomyopathy consistent with chronic HFpEF: [facility]. Family requested transfer to [facility]. Twelve-lead EKG sinus rhythm with no hyperkalemic changes. Patient had hyperkalemia cocktail in ED. ED physician discussed with cardiac emergency specialist Dr. Marcin Zamora and patient accepted to the heart failure service. 2D echo shows EF 70%, mild MR, mild TR, severe concentric LVH, no RWMA. Normal RV size andsystolic function. IVC collapse with respiration. No significant change from the prior echo of December 2019 at [facility]. 06/08: Discussed in detail with the patient, her 2 daughters, son and regarding volume status, IV fluid and diuretic. Patient is well-hydrated therefore no more IV fluid. Lasix 20 mg IV given.nd 06/08: Leg edema symptoms improved compared to 06/07. Discussed in detail with the patient #2. Leukocytosis : Unclear exact etiology, although patient has had recurrent issues of leukocytosis, most recently prior to this 06/01/2023 CBC with WBC 7.2 06/08: Mild leukocytosis improving looks reactive. Clinically acute infection not suspected. #3. Hyperkalemia, mild: Admission K+ 5.5, administered IV insulin/dextrose, EKG without acute findings, will repeat BMP now and further treat pending results. Hold oral K supplementation. 06/07 repeat potassium 5.2. Patient not having any hyperkalemic signs. Patient also with hyponatremia sodium 128. It seems patient has subcutaneous interstitial edema but intravascularly she is dry. 06/08: No significant change in electrolytes. Sodium decreased from 129 to 128, potassium 5.2. Did not show improvement with IV fluid normal saline. Normal sinus rhythm on site monitor. #4. Nonobstructive CAD: l continue baby asa, continue metoprolol as BP allows and statin. #5. Chronic bilateral lower extremity edema:Devin wraps with elevation and per [facility] recommendation will hold further Lasix. #6. Hx VTE (DVT, PE) with Hypofibrinogenemia: s/p IVC filter, recent issues with serial re-presentations with GI bleed and eventual duodenal ulcer with perforation, off anticoagulation, will continue high dose PPI, sucralafate regimen. #7. Hypertension: Continue home regimen including metoprolol as BP allows, PRN hydralazine. #8. Hyperlipidemia: We will continue patient on statin therapy. #9. Hypothyroidism: We will continue patient on levothyroxine regimen. #10. Anxiety and depression: We will continue patient home Remeron regimen. #11. Chronic neuropathy: We will continue patient home chronic gabapentin regimen. #12. Chronic anemia/iron deficiency anemia: Admission CBC with hemoglobin 10.5, MCV 90.5, hemoglobin prior to this primarily 9-10 range, appears stable, continue patient home iron and vitamin C supplementation. 06/07: H&H 9.3/30%. Platelet count 242,000. #13. DVT prophylaxis: Given recent complicated history to be cautious will place SCDs until cleared per her surgeon at follow-up. #14. CODE status: Patient JESE is her and living will is currently in place she believes. Discussed CODE status at length including difference between FULL code, DNR-CCA and DNR-CC status. Following discussions about the differences in these status, requested Full Code status. Patient got the bed in [facility] and discharged. Medications at Discharge Home Medications levothyroxine 88 mcg tablet 88 mcg PO DAILY THYROID 05/27/18 aspirin 81 mg tablet,delayed release (Adult Aspirin Regimen) 81 mg PO DAILY HEART HEALTH 12/12/19 tafamidis 61 mg capsule 61 mg PO DAILY HEART FAILURE 12/12/19 cholecalciferol (vitamin D3) 125 mcg (5,000 unit) capsule 125 mcg PO DAILY SUPPLEMENT 04/15/20 metoprolol succinate 25 mg tablet,extended release 24 hr (Toprol XL) 12.5 mg PO DAILY BLOOD PRESSURE 07/13/22 vitamins A,C,Z-zzdg-uoouza 4,296 mcg-226 mg-90 mg capsule (PreserVision AREDS) 1 cap PO BID EYE HEALTH 01/11/23 gabapentin 300 mg capsule 300 mg PO QHS NEUROPATHY 02/16/23 MAGIC MOUTH WASH (BMX) 180 mL suspension 5 ml PO Q4H PRN Mouth pain #180 mL 04/20/23 benzocaine 6 mg-menthol 10 mg lozenges 1 salvatore mucous membrane Q2H Sore throat 04/20/23 diclofenac sodium 1 % topical gel (Voltaren Arthritis Pain) 2 g topical 4X/DAY Arthritis pain 04/20/23 ascorbate calcium (vitamin C) 500 mg tablet 500 mg PO DAILY Supplement 05/03/23 atorvastatin 10 mg tablet (Lipitor) 10 mg PO QHS Cholestrol 05/03/23 calcium carbonate 200 mg calcium (500 mg) chewable tablet (Tums) 500 mg PO BID Supplement 05/03/23 doxepin 10 mg capsule 10 mg PO QHS sleep 05/03/23 ascorbic acid (vitamin C) 500 mg tablet 500 mg PO 999 30 days #30 tabs 05/16/23 doxepin 10 mg capsule 10 mg PO 1999 30 days #30 caps 05/16/23 mirtazapine 15 mg tablet 7.5 mg (1/2 x 15 mg) PO 1999 mood/appetite 30 days #15 tabs 05/16/23 pantoprazole 40 mg tablet,delayed release 40 mg PO BID reflux 30 days #60 tabs 05/16/23 polysaccharide iron complex 150 mg iron capsule (Ferrex) 150 mg PO DAILY 30 days #30 caps 05/16/23 potassium chloride 20 mEq tablet,extended release(part/cryst) 20 meq PO DAILYCM supplement 30 days #30 tabs 05/16/23 sucralfate 1 gram tablet 1 g PO BIDAC prevent ulcers 30 days #60 tabs 05/16/23 amoxicillin 875 mg-potassium clavulanate 125 mg tablet 1 tab PO BID atibiotic 05/31/23 oxycodone 5 mg capsule 2.5 mg PO Q6H pain 05/31/23 acetaminophen 325 mg tablet 650 mg PO Q6H PRN Pain 1-10 Or Fever >100.7 06/07/23 acetaminophen 500 mg tablet 1,000 mg PO Q6H PRN Pain Score 1-3 06/07/23 melatonin 3 mg tablet 3 mg PO QHS PRN Insomnia 06/07/23 tramadol 50 mg tablet 50 mg PO Q6H PRN Pain Score 4-5 06/07/23 Physical Exam Narrative Please see progress on the same date for details. Correction patient got about 1300 mill fluid overnight and is well hydrated. Lasix 20 mg IV given. Weight / BMI Weight Weight: 155 lb 6.814 oz Body Mass Index (BMI) 25.8 ABG / Lab / Microbiology Data 06/08/23 05:27 06/08/23 05:27 Laboratory: Laboratory Results - last 24 hr 06/09/23 05:48: Urine Color Yellow, Urine Clarity Clear, Urine pH 6.5, Ur Specific [place] 1.010, Urine Protein Negative, Urine Glucose (UA) Normal, Urine Ketones Negative, Urine Occult Blood Negative, Urine Nitrite Negative, Urine Bilirubin Negative, Urine Urobilinogen Normal, Ur Leukocyte Esterase Negative, Urine RBC 0 SEEN, Urine WBC 0 SEEN, Ur Squamous Epith Cells 0 SEEN, Urine Bacteria 0 SEEN, Urine Mucus 0 SEEN Meaningful Use Info Meaningful Use Diagnoses (Choose all that apply): None applicable Discharge Plan Admission Admit Date/Time: 06/07/23 23:49 Attending Provider: Eder Mckeon Primary Care Provider: Radha Mcrae Consulting Providers: Bekah Rodrigues Discharge Orders/Prescriptions Prescriptions: No Action aspirin [Adult Aspirin Regimen] 81 mg tablet,delayed release (DR/EC) 81 mg PO DAILY tafamidis 61 mg capsule 61 mg PO DAILY cholecalciferol (vitamin D3) 125 mcg (5,000 unit) capsule 125 mcg PO DAILY metoprolol succinate [Toprol XL] 25 mg tablet extended release 24 hr 12.5 mg PO DAILY PreserVision AREDS 4,296 mcg-226 mg-90 mg capsule 1 cap PO BID levothyroxine 88 mcg tablet 88 mcg PO DAILY benzocaine-menthol 6-10 mg lozenge 1 salvatore mucous membrane Q2H diclofenac sodium [Voltaren Arthritis Pain] 1 % gel 2 g topical 4X/DAY MAGIC MOUTH WASH (BMX) 180 mL suspension 5 ml PO Q4H PRN Qty: 180 doxepin 10 mg Capsule 10 mg PO 1999 30 Days Qty: 30 0RF ascorbic acid (vitamin C) 500 mg Tablet 500 mg PO 1000 30 Days Qty: 30 0RF sucralfate 1 gram Tablet 1 g PO BIDAC 30 Days Qty: 60 0RF polysaccharide iron complex [Ferrex 150] 150 mg iron Capsule 150 mg PO DAILY 30 Days Qty: 30 0RF potassium chloride 20 mEq Tablet,Er Particles/Crystals 20 meq PO DAILYCM 30 Days Qty: 30 0RF pantoprazole 40 mg Tablet,Delayed Release (Dr/Ec) 40 mg PO BID 30 Days Qty: 60 0RF mirtazapine 15 mg Tablet 7.5 mg PO 1999 30 Days Qty: 15 0RF atorvastatin [Lipitor] 10 mg tablet 10 mg PO QHS doxepin 10 mg capsule 10 mg PO QHS calcium carbonate [Tums] 200 mg calcium (500 mg) tablet,chewable 500 mg PO BID ascorbate calcium (vitamin C) 500 mg tablet 500 mg PO DAILY amoxicillin-pot clavulanate 875-125 mg tablet 1 tab PO BID oxycodone 5 mg capsule 2.5 mg PO Q6H acetaminophen 325 mg Tablet 650 mg PO Q6H PRN (Reason: Pain 1-10 Or Fever >100.7) melatonin 3 mg Tablet 3 mg PO QHS PRN (Reason: Insomnia) tramadol 50 mg Tablet 50 mg PO Q6H PRN (Reason: Pain Score 4-5) acetaminophen 500 mg Tablet 1,000 mg PO Q6H PRN (Reason: Pain Score 1-3) gabapentin 300 mg capsule 300 mg PO QHS Rx Instructions: Take for 180 days Referrals / Follow Up: Radha Mcrae MD [Primary Care Provider] - Disposition Disposition (needs filled in before D/C Order can be placed): DC/Tx to Another Type of HCF Charges/Coding Visit Charges Inpatient E&M: 28631 Disch Hosp >30min
[2023-06-09] MEDS: Mirtazapine 15 MG Tablet 7.5 MG PO (19:46)
[2023-06-09] MEDS: Doxepin Hydrochloride 10 MG Capsule PO (19:47)
[2023-06-09] MEDS: LORazepam 0.5 MG Tablet 0.25 MG PO (19:48)
[2023-06-09] MEDS: Atorvastatin Calcium 10 MG Tablet PO (19:49)
[2023-06-09] MEDS: Gabapentin 300 MG Capsule PO (19:53)
--- NOTE | 2023-06-09 20:00 | NURSING ---
physicians transport here to take pt to [facility] at this time.
== END 2023-06-09 20:19 | disposition other institution (70) | DRG 292 ==
LOC: ED 06-08 00:07 → PCU 06-08 00:51
PROVIDERS: Physician Assistant; Admitting Provider Family Medicine; Emergency Provider Emergency Medicine; PCP Internal Medicine; Visit Provider Internal Medicine
DX: I11.0 Hypertensive heart disease with heart failure (principal); E85.82 Wild-type transthyretin-related (ATTR) amyloidosis; E87.1 Hypo-osmolality and hyponatremia; I50.32 Chronic diastolic (congestive) heart failure; I42.2 Other hypertrophic cardiomyopathy; D50.9 Iron deficiency anemia, unspecified; F32.A Depression, unspecified; E03.9 Hypothyroidism, unspecified; G62.9 Polyneuropathy, unspecified; K21.9 Gastro-esophageal reflux disease without esophagitis; E78.5 Hyperlipidemia, unspecified; E87.5 Hyperkalemia; I25.10 Atherosclerotic heart disease of native coronary artery without angina pectoris; F41.9 Anxiety disorder, unspecified; Z79.82 Long term (current) use of aspirin; Z79.899 Other long term (current) drug therapy; Z86.718 Personal history of other venous thrombosis and embolism; Z86.711 Personal history of pulmonary embolism
CPT/HCPCS: 36415; 71046; 80048; 80053; 81001; 82962; 83880; 84145; 85025; 87086; 93005; 93306; 97110; 97162; 97166; 97530; 97535; 97802; 99283; J7030; A4216; J1940; J2405

== ENCOUNTER 2023-09-19 08:30 | Outpatient (RCR) | payer MEDICARE, OTHER, SELFPAY ==
[2023-09-05 08:05] VITALS: BP 121/55; PULSE 92; RESP 20; TEMP 36.2; BMI 20.2
--- NOTE | 2023-09-05 10:09 | HP.PCM_ITS ---
History of Present Illness Date of Service: 09/05/23 Chief Complaint: Follow-up nonhealing surgical abdominal wound History of Wound: 82-year-old white female that had a duodenal resection done in May then had a lot of septicemia and other issues Has 2 very small areas with hardly any depth at the very top that we will cluster together for a nonhealing abdominal wound in the suture line. The rest of the line looks well-approximated and is healing patient denies any fever chills nausea vomiting. She does state that it does drain some pus yesterday but I saw none today. We will obtain cultures before further treatment [facility] Medical History Anticoagulant long-term use Kidney disease Hypertension DVT (deep venous thrombosis) Pulmonary embolism Chest pain Abdominal pain Essential hypertension Wild-type transthyretin-related (ATTR) amyloidosis Atherosclerosis of [place] coronary artery of [place] heart without angina pectoris Hypertrophic cardiomyopathy Severe left ventricular hypertrophy Severe mitral regurgitation Abnormal stress echo Personal history of colonic polyps Thrombophlebitis of superficial veins of left lower extremity Cellulitis of left lower extremity History of pulmonary embolus (PE) (~2009) Palpitations Hyperlipidemia hx of APLL Acid reflux Constipation Abdominal pain Heart murmur Arthritis Back problem LVH (left ventricular 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 Hypofibrinogenemia Hypothyroidism History of venous thrombosis and embolism Hemorrhoids Gastrointestinal hemorrhage Diverticulitis of sigmoid colon Home Medications ?Medication ?Instructions ?Recorded ?Last Taken ?Type levothyroxine 88 mcg tablet 88 mcg PO DAILY THYROID 05/27/18 04/04/23 History aspirin 81 mg tablet,delayed 81 mg PO DAILY HEART HEALTH 12/12/19 05/08/23 History release (Adult Aspirin Regimen) tafamidis 61 mg capsule 61 mg PO DAILY HEART FAILURE 12/12/19 05/08/23 History cholecalciferol (vitamin D3) 125 125 mcg PO DAILY SUPPLEMENT 04/15/20 04/04/23 History mcg (5,000 unit) capsule metoprolol succinate 25 mg 12.5 mg PO DAILY BLOOD PRESSURE 07/13/22 05/08/23 History tablet,extended release 24 hr (Toprol XL) vitamins A,C,I-jfxo-mvnlhb 4,296 1 cap PO BID EYE HEALTH 01/11/23 04/04/23 History mcg-226 mg-90 mg capsule (PreserVision AREDS) gabapentin 300 mg capsule 300 mg PO QHS NEUROPATHY 02/16/23 05/07/23 History ascorbate calcium (vitamin C) 500 500 mg PO DAILY Supplement 05/03/23 Unknown History mg tablet atorvastatin 10 mg tablet (Lipitor) 10 mg PO QHS Cholestrol 05/03/23 05/30/23 History calcium carbonate (Tums) 500 mg PO BID Supplement 05/03/23 Unknown History ascorbic acid (vitamin C) 500 mg 500 mg PO 1000 30 days #30 tabs 05/16/23 Unknown Rx tablet mirtazapine 15 mg tablet 7.5 mg (1/2 x 15 mg) PO 199905/16/23 Unknown Rx mood/appetite 30 days #15 tabs pantoprazole 40 mg tablet,delayed 40 mg PO BID reflux 30 days #60 05/16/23 Unknown Rx release tabs potassium chloride 20 mEq 20 meq PO DAILYCM supplement 30 05/16/23 Unknown Rx tablet,extended release(part/cryst) days #30 tabs sucralfate 1 gram tablet 1 g PO BIDAC prevent ulcers 30 05/16/23 Unknown Rx days #60 tabs oxycodone 5 mg capsule 2.5 mg PO Q6H pain 05/31/23 Unknown History melatonin 3 mg tablet 3 mg PO QHS PRN Insomnia 06/07/23 Unknown History tramadol 50 mg tablet 50 mg PO Q6H PRN Pain Score 4-5 06/07/23 Unknown History Allergy/AdvReac Type Severity Reaction Status Date / Time Iodinated Contrast Media Allergy Severe Hives Verified 05/07/23 10:54 (Iodinated Contrast- Oral and IV Dye) iodine Allergy Anaphylaxis Verified 05/07/23 10:54 Family History Mother Colon cancer Brother Myeloma Father Heart disease Surgical History History of cholecystectomy History of right hip replacement History of left heart catheterization (10/22/19) Hx of bladder repair surgery Hx of arthroscopic knee surgery History of left hip replacement Hx of partial thyroidectomy Hx of umbilical hernia repair (~2009) Hx of bilateral inguinal hernia repair Hx of hysterectomy Social History household members: spouse housing: house Smoking Status: Never smoker second hand exposure: No alcohol intake: never substance use type: does not use caffeine: Yes (very rare) what type of physical activity do you participate in: none frequency: does not exercise seatbelt use: always ROS Constitutional Constitutional: Reports systems reviewed and no addt'l complaints, except as documented Eyes Eyes: Reports systems reviewed and no addt'l complaints, except as documented ENT HEENT: Reports systems reviewed and no addt'l complaints, except as documented Cardiovascular Cardiovascular: Reports systems reviewed and no addt'l complaints, except as documented Respiratory/Chest Respiratory/Chest: Reports systems reviewed and no addt'l complaints, except as documented Gastrointestinal Gastrointestinal: Reports systems reviewed and no addt'l complaints, except as documented Genitourinary Genitourinary: Reports systems reviewed and no addt'l complaints, except as documented Musculoskeletal Musculoskeletal: Reports systems reviewed and no addt'l complaints, except as documented Integumentary Integumentary: Reports wounds and other Details: Nonhealing surgical abdominal wound Neurologic Neurologic: Reports systems reviewed and no addt'l complaints, except as documented Psychiatric Psychiatric: Reports systems reviewed and no addt'l complaints, except as documented Endocrine Endocrinology: Reports systems reviewed and no addt'l complaints, except as documented Hematologic/Lymphatic Hematologic/Lymphatic: Reports systems reviewed and no addt'l complaints, except as documented Allergic/Immunologic Allergic/Immunologic: Reports systems reviewed and no addt'l complaints, except as documented Vital Signs Vital Signs Vital Signs: 09/05/23 08:05 Temperature 97.2 F L Temperature Source Oral Pulse Rate 92 Respiratory Rate 20 H Blood Pressure 121/55 H Blood Pressure Mean 77 Blood Pressure Source Monitor Weight Weight: 121 lb 12.149 oz Body Mass Index (BMI) 20.2 Physical Exam Const oriented x3 General Appearance: cooperative Exam Limitations: no limitations HEENT normocephalic Head and Scalp: normal to inspection Face and Sinus: normal facial exam Nose: external nose normal Eyes General Eye: normal appearance of both eyes Neck full ROM General: normal visual inspection Resp normal respiratory effort Effort and Inspection: able to speak in complete sentences Auscultation: clear to auscultation bilaterally Cardio regular rate and regular rhythm Palpation: normal PMI Rate: regular rate Rhythm: regular rhythm GI Inspection: incision intact (Very small open areas at the top of the well- approximated suture line) Auscultation: normoactive bowel sounds Palpation: soft and no hepatosplenomegaly Extremity normal to inspection Skin Wounds: wounds noted Wound Narrative: Nonhealing surgical wound upper abdomen under umbilicus Neuro oriented x3 Psych Appearance: grossly normal Speech: normal speech Thought Content: normal thought content Judgement: judgement good Debridement Note Debridement Note Wound debrided: Surgical wound nonhealing Type of Debridement: Excisional debridement Anesthesia Used: 5% Lidocaine Gel Depth: Down to and including healthy tissue and in the subcutaneous layer Percentage of wound debrided: 100 Instrument Used: 3mm curette Tissue Removed: Fibrin Severity: Fat Layer Exposed Amount of bleeding with debridement: Mild Bleeding Controlled with: Compression and gauze Patient tolerated procedure: Patient tolerated procedure well Post-Debridement Measurements and Additional Note: Post-Debridement Measurements/Treatment - Nurse 1 - General Ulcer Assessment Start: 09/05/23 08:05 Freq: Status: Active Protocol: JUWAN Activity Type Activity Date Activity User E-sign Co-sign Detail Recorded Client Recorded Date Recorded By Document 09/05/23 08:05 DL [email or web address] 09/05/23 08:15 DL 09/05/23 08:05 - Today's Visit Information Type of service Initial Visit Arrival Mode Ambulatory Transfer Assistance None Patient Identification Verified (Name & Yes ) Patient Requires Transmission-Based No Precautions Height and Weight Height 5 ft 5 in Weight 121 lb 12.149 oz Weight in Pounds 121.8 lbs Body Mass Index (BMI) 20.2 BMI Classification Normal BSA - Renee 1.60 Vital Signs Temperature (97.8 F-99.1 F) 97.2 F L Temperature Source Oral Pulse Rate (60-100) 92 Pulse Location Monitor Respiratory Rate (12-18) 20 H Respiratory rate source Observation Blood Pressure (90/60-120/80) 121/55 H Blood Pressure Mean 77 Source Monitor Pain Scale: 0-10 Numeric Is Patient Pain Free? Yes Communication Assessment Preferred language Greek Able to Read Yes Able to Write Yes Communication Tools None Right Hearing Abillity Hard of Hearing Left Hearing Abillity Hard of Hearing Teaching Assessment Preferences Verbal,Written, Demonstration Barriers to Learning None Readiness To Learn Good Willingness to Engage in Self Management Med Activies Readiness to Engage in Self Management Med Activities Anxiety Level Calm Cooperation Cooperative Perception Coherent Interest in Health Problem Asks Questions Education Importance Acknowledges Need Does Patient Smoke tobacco or other No substances Smoking Status Never smoker Is Patient Diabetic No Functional Assessment Recent Decline in Ability to Perform Denies Any Declines Culture/Voodoo/Dealer Support Technician Cultural/Voodoo Needs that may affect No Treatment Plan Would you allow our hospital social services counselor to No meet you for the purpose of spiritual/ emotional support? Dealer Support Technician to contact place of yarsani No Teaching: Wound Center Dressing Your Wound -Person Taught Patient *Welcome to the Wound Center -Person Taught Patient WC - Nurse 1 - General Ulcer Measurement Start: 09/05/23 08:05 Freq: Status: Active Protocol: Activity Type Activity Date Activity User E-sign Co-sign Detail Recorded Client Recorded Date Recorded By Document 09/05/23 08:05 DL [email or web address] 09/05/23 08:15 DL 09/05/23 08:05 Wound Center Nurse 1 Abd cluster -Current Size (cm) - Length 0.3 -Current Size (cm) - Width 0.3 -Current Size (cm) - Depth 0.2 -Total Square Cm 0.09 -Photo Taken Yes -Exudate Amt Small -Wound Margin Distinct, Outline Attached -Granulation Amt Small (1-33%) -Granulation Quality Red -Necrosis Amt None Present (0 %) -Structure Exposed N/A -Texture (Paulette-wound Skin Appearance) Scarring -Moisture (Paulette-wound Skin Appearance) No Abnormality -Color (Paulette-wound Skin Appearance) No Abnormality -Temperature (Paulette-wound Skin No Abnormality Appearance) (Pt Warm) -Tenderness on Palpation (Paulette-wound No Skin Appearance) -Ulcer Cleansing Soap and Water -Foul Odor after Cleansing No -Anesthetic Used 5% Lidocaine Gel - Nurse 2 - General Ulcer CM Notes Start: 09/05/23 08:05 Freq: Status: Active Protocol: Activity Type Activity Date Activity User E-sign Co-sign Detail Recorded Client Recorded Date Recorded By Document 09/05/23 08:32 [facility] [id number] 09/05/23 08:35 [facility] 09/05/23 08:32 Wound Center Nurse 2 -Time 08:34 -Correct Patient Yes -Correct Side, Site, Position Yes -Correct Procedure Yes -Procedure Performed Yes -Type of Procedure Debridement -Clinical Debridement Subcutaneous -Tissue Removed Subcutaneous -Post Debridement (cm) - Length 1 -Post Debridement (cm) - Width 0.3 -Post Debridement (cm) - Depth 0.1 -Total Square (Post) (cm) 0.3 -Area of Debridement (cm) - Length 1 -Area of Debridement (cm) - Width 0.3 -Total Square (Area) (cm) 0.3 -Tunneling No -Undermining/Tunneling No -Circular Undermining No -Wound/Ulcer Outcome Not Healed -Ulcer Cleansing Rinsed/ Irrigated with Saline -Foul Odor after Cleansing No -Bioengineered Tissue No -Bleeding Controlled with Pressure -Treatment Response Procedure Tolerated Well -Debridement - Subq, 1st 20sq cm Yes Pain Scale: 0-10 Numeric Is Patient Pain Free? Yes - Nurse 3 - General Ulcer D/C NN Start: 09/05/23 08:05 Freq: Status: Active Protocol: Activity Type Activity Date Activity User E-sign Co-sign Detail Recorded Client Recorded Date Recorded By Document 09/05/23 08:56 DL [id number] 09/05/23 08:57 DL 09/05/23 08:56 Wound Care Center Nurse 3 Abd cluster -Ulcer Cleansing Rinsed/ Irrigated with Saline -Foul Odor after Cleansing No -Primary Dressing Applied Fibracol Plus 4x4 -Primary Dressing Covered/Secured with Dry Gauze, Secured with Tape -Fibracol Plus 4x4 1 Treatment Response Procedure Tolerated Well Pain Scale: 0-10 Numeric Is Patient Pain Free? Yes - Visit Discharge Discharge Condition Stable Ambulatory Status Ambulatory Transportation Private Auto Accompanied by Facility Type Home Health Orders Sent Yes Assessment/Plan Assessment/Plan (1) Nonhealing surgical wound: CODE(S): T81.89XA - Other complications of procedures, not elsewhere classified, initial encounter PLAN: Wash the area with antibacterial soap and water and apply Fibracol to wound base moistened cover with a gauze dressing and tape every day Follow-up in 1 week (2) Infected wound: CODE(S): T14.8XXA - Other injury of unspecified body region, initial encounter; L08.9 - Local infection of the skin and subcutaneous tissue, unspecified PLAN: Cultures obtained will call with results
--- NOTE | 2023-09-10 13:07 | WC ---
CX RESULTS REVIEWED PER EREN FARIA CARDIOVASCULAR LAB DIRECTOR. N.O'S RECEIVED TO START DOXYCYCLINE HYCLATE. ALLERGIES REVIEWED. PT CALLED AND UPDATED. RX CALLED TO [facility], WILL ALSO UPDATE HER HOME HEALTH- ADVANTAGE, PER HER REQUEST.
[2023-09-12 08:26] VITALS: BP 147/62; PULSE 93; RESP 16; TEMP 35.7; BMI 20.2
--- NOTE | 2023-09-12 09:18 | PN.PCM_ITS ---
History of Present Illness Date of Service: 09/12/23 Chief Complaint: Follow-up nonhealing surgical abdominal wound History of Wound: 82-year-old white female that had a duodenal resection done in May then had a lot of septicemia and other issues Has 2 very small areas with hardly any depth at the very top that we will cluster together for a nonhealing abdominal wound in the suture line. The rest of the line looks well-approximated and is healing patient denies any fever chills nausea vomiting. She does state that it does drain some pus yesterday but I saw none today. We will obtain cultures before further treatment Progress of Wound: Still has open wounds along the suture line of her abdominal incision we measured with close drain Patient was positive on her cultures and was started on doxycycline. Subjective Subjective Patient would like not to take the antibiotic because she gets thrush I told her she needs to be on a base otherwise she will close and we can always put her on Diflucan if she does develop thrush just call us. Objective Data Objective Data Measurements are about the same no worsening area we will continue the Fibracol to the abdominal wound area. Vital Signs: Vital Signs Temp Pulse Resp BP O2 Del Method 96.2 F L 93 16 147/62 H Room Air 09/12/23 08:26 09/12/23 08:26 09/12/23 08:26 09/12/23 08:26 09/12/23 08:26 Oxygen Delivery Method Room Air Weight: 121 lb 12.149 oz Body Mass Index (BMI) 20.2 Lab / Micro Data Attestation: I reviewed the patient's lab results. Micro: Microbiology 09/05/23 08:35 Wound - Abdominal Gram Stain - Final 09/05/23 08:35 Wound - Abdominal Wound Culture - Final Meth. resistant Staph. aureus 09/05/23 08:35 Wound - Abdominal Anaerobic Culture - Final No anaerobic bacteria isolated. Physical Exam Const oriented x3 General Appearance: cooperative Exam Limitations: no limitations HEENT normocephalic Head and Scalp: normal to inspection Face and Sinus: normal facial exam Nose: external nose normal Eyes General Eye: normal appearance of both eyes Neck full ROM General: normal visual inspection Resp normal respiratory effort Effort and Inspection: able to speak in complete sentences Auscultation: clear to auscultation bilaterally Cardio regular rate and regular rhythm Palpation: normal PMI Rate: regular rate Rhythm: regular rhythm GI Inspection: incision intact (Very small open areas at the top of the well- approximated suture line) Auscultation: normoactive bowel sounds Palpation: soft and no hepatosplenomegaly Extremity normal to inspection Skin Wounds: wounds noted Wound Narrative: Nonhealing surgical wound upper abdomen under umbilicus Neuro oriented x3 Psych Appearance: grossly normal Speech: normal speech Thought Content: normal thought content Judgement: judgement good Debridement Note Debridement Note Wound debrided: Surgical wound nonhealing Type of Debridement: Excisional debridement Anesthesia Used: 5% Lidocaine Gel Depth: Down to and including healthy tissue and in the subcutaneous layer Percentage of wound debrided: 100 Instrument Used: 3mm curette Tissue Removed: Fibrin Severity: Fat Layer Exposed Amount of bleeding with debridement: Mild Bleeding Controlled with: Compression and gauze Patient tolerated procedure: Patient tolerated procedure well Post-Debridement Measurements and Additional Note: Post-Debridement Measurements/Treatment - Nurse 1 - General Ulcer Assessment Start: 09/05/23 08:05 Freq: Status: Active Protocol: JUWAN Activity Type Activity Date Activity User E-sign Co-sign Detail Recorded Client Recorded Date Recorded By Document 09/05/23 08:05 DL [email or web address] 09/05/23 08:15 DL Document 09/12/23 08:26 KW wound center 09/12/23 08:31 KW 09/05/23 09/12/23 08:05 08:26 - Today's Visit Information Type of service Initial Visit Follow-up 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 ) Arrival Mode Ambulatory Ambulatory Transfer Assistance None Accompanied by Patient Identification Verified (Name & Yes Yes ) Patient Requires Transmission-Based No Precautions Height and Weight Height 5 ft 5 in Weight 121 lb 12.149 oz Weight in Pounds 121.8 lbs Body Mass Index (BMI) 20.2 20.2 BMI Classification Normal Normal BSA - Renee 1.60 Vital Signs Temperature (97.8 F-99.1 F) 97.2 F L 96.2 F L Temperature Source Oral Temporal Pulse Rate (60-100) 92 93 Pulse Location Monitor Monitor Respiratory Rate (12-18) 20 H 16 Respiratory rate source Observation Observation Oxygen Delivery Method Room Air Blood Pressure (90/60-120/80) 121/55 H 147/62 H Blood Pressure Mean (mm Hg) 77 90 Source Monitor Monitor Position Sitting Blood Pressure Location Left Arm History Since Last Visit- (Skip if this is Patient's initial visit) Have you changed medications since your No last visit? Any new allergies or adverse reactions No Had a fall/change in ADL's that may No increase risk of falls Signs or symptoms of abuse and/or No neglect since last visit Have you been in the hospital since your No last visit? Has dressing in place as prescribed Yes Has compression in place as prescribed N/A Has offloadiing in place as prescribed N/A Experienced any changes in pain level or No management Left Footwear Regular Shoe Right Footwear Regular Shoe Pain Scale: 0-10 Numeric Is Patient Pain Free? Yes Yes Communication Assessment Preferred language Kiny[place] Able to Read Yes Able to Write Yes Communication Tools None Right Hearing Abillity Hard of Hearing Left Hearing Abillity Hard of Hearing Teaching Assessment Preferences Verbal,Written, Demonstration Barriers to Learning None Readiness To Learn Good Willingness to Engage in Self Management Med Activies Readiness to Engage in Self Management Med Activities Anxiety Level Calm Cooperation Cooperative Perception Coherent Interest in Health Problem Asks Questions Education Importance Acknowledges Need Does Patient Smoke tobacco or other No substances Smoking Status Never smoker Is Patient Diabetic No Functional Assessment Recent Decline in Ability to Perform Denies Any Declines Culture/Hindu/Design Assistant Cultural/Hindu Needs that may affect No Treatment Plan Would you allow our hospital artist mannequin coloring to No meet you for the purpose of spiritual/ emotional support? Design Assistant to contact place of rastafari No Teaching: Wound Center Dressing Your Wound -Person Taught Patient *Welcome to the Wound Center -Person Taught Patient WC - Nurse 1 - General Ulcer Measurement Start: 09/05/23 08:05 Freq: Status: Active Protocol: Activity Type Activity Date Activity User E-sign Co-sign Detail Recorded Client Recorded Date Recorded By Document 09/05/23 08:05 DL [email or web address] 09/05/23 08:15 DL Document 09/12/23 08:26 KW wound center 09/12/23 08:31 KW 09/05/23 09/12/23 08:05 08:26 Wound Center Nurse 1 Abd cluster -Current Size (cm) - Length 0.3 1.2 -Current Size (cm) - Width 0.3 0.2 -Current Size (cm) - Depth 0.2 0.2 -Total Square Cm 0.09 0.24 -Date of Last Picture (Recall this 09/12/23 field) -Photo Taken Yes -Exudate Amt Small Small -Exudate Type Serosanguineous -Wound Margin Distinct, Distinct, Outline Outline Attached Attached -Granulation Amt Small (1-33%) Large (67-100%) -Granulation Quality Red Red -Necrosis Amt None Present (0 %) -Structure Exposed N/A -Texture (Paulette-wound Skin Appearance) Scarring Assessed, Scarring -Moisture (Paulette-wound Skin Appearance) No Abnormality Assessed -Color (Paulette-wound Skin Appearance) No Abnormality Assessed -Temperature (Paulette-wound Skin No Abnormality No Abnormality Appearance) (Pt Warm) (Pt Warm) -Tenderness on Palpation (Paulette-wound No No Skin Appearance) -Ulcer Cleansing Soap and Water Rinsed/ Irrigated with Saline -Foul Odor after Cleansing No No -Anesthetic Used 5% Lidocaine 5% Lidocaine Gel Gel WC - Nurse 2 - General Ulcer CM Notes Start: 09/05/23 08:05 Freq: Status: Active Protocol: Activity Type Activity Date Activity User E-sign Co-sign Detail Recorded Client Recorded Date Recorded By Document 09/05/23 08:32 [facility] 1606-03-11 09/05/23 08:35 [facility] Document 09/12/23 08:39 [facility] 1606-01-09 09/12/23 08:43 [facility] 09/05/23 09/12/23 08:32 08:39 Wound Center Nurse 2 Abd cluster -Time 08:34 08:39 -Correct Patient Yes Yes -Correct Side, Site, Position Yes Yes -Correct Procedure Yes Yes -Procedure Performed Yes Yes -Type of Procedure Debridement Debridement -Clinical Debridement Subcutaneous Subcutaneous -Tissue Removed Subcutaneous Subcutaneous -Post Debridement (cm) - Length 1 2.5 -Post Debridement (cm) - Width 0.3 0.3 -Post Debridement (cm) - Depth 0.1 0.1 -Total Square (Post) (cm) 0.3 0.75 -Area of Debridement (cm) - Length 1 2.5 -Area of Debridement (cm) - Width 0.3 0.3 -Total Square (Area) (cm) 0.3 0.75 -Tunneling No No -Undermining/Tunneling No No -Circular Undermining No No -Wound/Ulcer Outcome Not Healed Not Healed -Ulcer Cleansing Rinsed/ Rinsed/ Irrigated with Irrigated with Saline Saline -Foul Odor after Cleansing No No -Bioengineered Tissue No No -Bleeding Controlled with Pressure Pressure -Treatment Response Procedure Procedure Tolerated Well Tolerated Well -Offloading No -Debridement - Subq, 1st 20sq cm Yes Yes Pain Scale: 0-10 Numeric Is Patient Pain Free? Yes Yes - Nurse 3 - General Ulcer D/C NN Start: 09/05/23 08:05 Freq: Status: Active Protocol: Activity Type Activity Date Activity User E-sign Co-sign Detail Recorded Client Recorded Date Recorded By Document 09/05/23 08:56 DL [id number] 09/05/23 08:57 DL Document 09/12/23 08:46 GM 09/12/23 08:47 GM 09/05/23 09/12/23 08:56 08:46 Wound Care Center Nurse 3 Abd cluster -Ulcer Cleansing Rinsed/ Not Cleansed Irrigated with Saline -Foul Odor after Cleansing No No -Primary Dressing Applied Fibracol Plus Fibracol Plus 4x4 4x4,Mepilex Border -Primary Dressing Covered/Secured with Dry Gauze, Secured with Tape -Fibracol Plus 4x4 1 1 -Mepilex Border 1 Treatment Response Procedure Tolerated Well Pain Scale: 0-10 Numeric Is Patient Pain Free? Yes Yes - Visit Discharge Discharge Condition Stable Stable Ambulatory Status Ambulatory Ambulatory Transportation Private Auto Private Auto Accompanied by Clinical Summary of Care Provided Yes Facility Type Home Health Orders Sent Yes Assessment/Plan Assessment/Plan (1) Nonhealing surgical wound: CODE(S): T81.89XA - Other complications of procedures, not elsewhere classified, initial encounter QUALIFIERS: Encounter type: subsequent encounter Qualified Code(s): T81.89XD - Other complications of procedures, not elsewhere classified, subsequent encounter PLAN: Wash the area with antibacterial soap and water and apply Fibracol to wound base moistened cover with a gauze dressing and tape every day Follow-up in 1 week (2) Infected wound: CODE(S): T14.8XXA - Other injury of unspecified body region, initial encounter; L08.9 - Local infection of the skin and subcutaneous tissue, unspecified PLAN: Continue doxycycline 100 mg twice a day for 14 days
--- NOTE | 2023-09-12 11:28 | WC ---
09/12/2023 [facility]
[2023-09-19 08:21] VITALS: BP 110/54; PULSE 90; RESP 20; TEMP 36.2; BMI 20.2
--- NOTE | 2023-09-19 09:19 | PCM.WC.PN ---
History of Present Illness Date of Service: 09/19/23 Chief Complaint: Follow-up nonhealing surgical abdominal wound History of Wound: 82-year-old white female that had a duodenal resection done in May then had a lot of septicemia and other issues Has 2 very small areas with hardly any depth at the very top that we will cluster together for a nonhealing abdominal wound in the suture line. The rest of the line looks well-approximated and is healing patient denies any fever chills nausea vomiting. She does state that it does drain some pus yesterday but I saw none today. We will obtain cultures before further treatment Progress of Wound: Patient is finishing her antibiotic and is healed on her abdomen patient will be discharged from the wound center Subjective Subjective Patient is very happy with outcome so his Objective Data Objective Data Well-approximated healed wound of the abdomen no sign of infection doing well will be discharged today Vital Signs: Vital Signs Temp Pulse Resp BP O2 Del Method 97.2 F L 90 20 H 110/54 L Room Air 09/19/23 08:21 09/19/23 08:21 09/19/23 08:21 09/19/23 08:21 09/12/23 08:26 Oxygen Delivery Method Room Air Weight: 121 lb 12.149 oz Body Mass Index (BMI) 20.2 Lab / Micro Data Micro: Microbiology 09/05/23 08:35 Wound - Abdominal Gram Stain - Final 09/05/23 08:35 Wound - Abdominal Wound Culture - Final Meth. resistant Staph. aureus 09/05/23 08:35 Wound - Abdominal Anaerobic Culture - Final No anaerobic bacteria isolated. Physical Exam Const oriented x3 General Appearance: cooperative Exam Limitations: no limitations HEENT normocephalic Head and Scalp: normal to inspection Face and Sinus: normal facial exam Nose: external nose normal Eyes General Eye: normal appearance of both eyes Neck full ROM General: normal visual inspection Resp normal respiratory effort Effort and Inspection: able to speak in complete sentences Auscultation: clear to auscultation bilaterally Cardio regular rate and regular rhythm Palpation: normal PMI Rate: regular rate Rhythm: regular rhythm GI Inspection: incision intact (Very small open areas at the top of the well-approximated suture line) Auscultation: normoactive bowel sounds Palpation: soft and no hepatosplenomegaly Extremity normal to inspection Skin Wounds: wounds noted Wound Narrative: Nonhealing surgical wound upper abdomen under umbilicus Neuro oriented x3 Psych Appearance: grossly normal Speech: normal speech Thought Content: normal thought content Judgement: judgement good Debridement Note Debridement Note No debridement was completed: No debridement was completed today Post-Debridement Measurements and Additional Note: Post-Debridement Measurements/Treatment - Nurse 1 - General Ulcer Assessment Start: 09/05/23 08:05 Freq: Status: Active Protocol: NOEMI.SEVERINO Activity Type Activity Date Activity User E-sign Co-sign Detail Recorded Client Recorded Date Recorded By Document 09/05/23 08:05 DL [email or web address] 09/05/23 08:15 DL Document 09/12/23 08:26 KW wound center 09/12/23 08:31 KW Document 09/19/23 08:21 DL 10.10.25.7 09/19/23 08:27 DL 09/05/23 09/12/23 09/19/23 08:05 08:26 08:21 WC - Today's Visit Information Type of service Initial Visit Follow-up Visit Follow-up Visit (Physician/ELECTRICAL MECHANICAL TECHNICIAN (Physician/ELECTRICAL MECHANICAL TECHNICIAN ) ) Arrival Mode Ambulatory Ambulatory Ambulatory Transfer Assistance None None Accompanied by Patient Identification Verified (Name & Yes Yes Yes ) Patient Requires Transmission-Based No No Precautions Height and Weight Height 5 ft 5 in Weight 121 lb 12.149 oz Weight in Pounds 121.8 lbs Body Mass Index (BMI) 20.2 20.2 20.2 BMI Classification Normal Normal Normal BSA - Renee 1.60 Vital Signs Temperature (97.8 F-99.1 F) 97.2 F L 96.2 F L 97.2 F L Temperature Source Oral Temporal Temporal Pulse Rate (60-100) 92 93 90 Pulse Location Monitor Monitor Monitor Respiratory Rate (12-18) 20 H 16 20 H Respiratory rate source Observation Observation Oxygen Delivery Method Room Air Blood Pressure (90/60-120/80) 121/55 H 147/62 H 110/54 L Blood Pressure Mean (mm Hg) 77 90 72 Source Monitor Monitor Monitor Position Sitting Blood Pressure Location Left Arm History Since Last Visit- (Skip if this is Patient's initial visit) Have you changed medications since your No No last visit? Any new allergies or adverse reactions No No Had a fall/change in ADL's that may No No increase risk of falls Signs or symptoms of abuse and/or No No neglect since last visit Have you been in the hospital since your No No last visit? Has dressing in place as prescribed Yes Yes Has compression in place as prescribed N/A Has offloadiing in place as prescribed N/A N/A Experienced any changes in pain level or No No management Left Footwear Regular Shoe Right Footwear Regular Shoe Pain Scale: 0-10 Numeric Is Patient Pain Free? Yes Yes Yes Communication Assessment Preferred language [place] Able to Read Yes Able to Write Yes Communication Tools None Right Hearing Abillity Hard of Hearing Left Hearing Abillity Hard of Hearing Teaching Assessment Preferences Verbal,Written, Demonstration Barriers to Learning None Readiness To Learn Good Willingness to Engage in Self Management Med Activies Readiness to Engage in Self Management Med Activities Anxiety Level Calm Cooperation Cooperative Perception Coherent Interest in Health Problem Asks Questions Education Importance Acknowledges Need Does Patient Smoke tobacco or other No substances Smoking Status Never smoker Is Patient Diabetic No Functional Assessment Recent Decline in Ability to Perform Denies Any Declines Culture/Temple/Washing Tub Operator Cultural/Temple Needs that may affect No Treatment Plan Would you allow our hospital follow up manager to No meet you for the purpose of spiritual/ emotional support? Washing Tub Operator to contact place of [employer] No Teaching: Wound Center Dressing Your Wound -Person Taught Patient *Welcome to the Wound Center -Person Taught Patient WC - Nurse 1 - General Ulcer Measurement Start: 09/05/23 08:05 Freq: Status: Active Protocol: Activity Type Activity Date Activity User E-sign Co-sign Detail Recorded Client Recorded Date Recorded By Document 09/05/23 08:05 DL 10..25.7 09/05/23 08:15 DL Document 09/12/23 08:26 KW wound center 09/12/23 08:31 KW Document 09/19/23 08:21 DL [email or web address] 09/19/23 08:27 DL 09/05/23 09/12/23 09/19/23 08:05 08:26 08:21 Wound Center Nurse 1 Abd cluster -Current Size (cm) - Length 0.3 1.2 0.1 -Current Size (cm) - Width 0.3 0.2 0.1 -Current Size (cm) - Depth 0.2 0.2 0.1 -Total Square Cm 0.09 0.24 0.01 -Date of Last Picture (Recall this 09/12/23 field) -Photo Taken Yes Yes -Exudate Amt Small Small None Present -Exudate Type Serosanguineous -Wound Margin Distinct, Distinct, Flat & Intact Outline Outline Attached Attached -Granulation Amt Small (1-33%) Large (67-100%) Medium (34-66%) -Granulation Quality Red Red [employer] -Slough/Fibrin No -Necrosis Amt None Present (0 None Present (0 %) %) -Structure Exposed N/A N/A -Texture (Paulette-wound Skin Appearance) Scarring Assessed, Scarring Scarring -Moisture (Paulette-wound Skin Appearance) No Abnormality Assessed No Abnormality, Dry/Scaly -Color (Paulette-wound Skin Appearance) No Abnormality Assessed No Abnormality -Temperature (Paulette-wound Skin No Abnormality No Abnormality No Abnormality Appearance) (Pt Warm) (Pt Warm) (Pt Warm) -Tenderness on Palpation (Paulette-wound No No No Skin Appearance) -Ulcer Cleansing Soap and Water Rinsed/ Soap and Water Irrigated with Saline -Foul Odor after Cleansing No No No -Anesthetic Used 5% Lidocaine 5% Lidocaine Gel Gel WC - Nurse 2 - General Ulcer CM Notes Start: 09/05/23 08:05 Freq: Status: Active Protocol: Activity Type Activity Date Activity User E-sign Co-sign Detail Recorded Client Recorded Date Recorded By Document 09/05/23 08:32 [facility] 1606-03-11 09/05/23 08:35 [facility] Document 09/12/23 08:39 [facility] 1606-01-09 09/12/23 08:43 [facility] Document 09/19/23 08:32 [facility] 1606-03-11 09/19/23 08:35 [facility] 09/05/23 09/12/23 09/19/23 08:32 08:39 08:32 Wound Center Nurse 2 Abd cluster -Time 08:34 08:39 -Correct Patient Yes Yes -Correct Side, Site, Position Yes Yes -Correct Procedure Yes Yes -Procedure Performed Yes Yes -Type of Procedure Debridement Debridement -Clinical Debridement Subcutaneous Subcutaneous -Tissue Removed Subcutaneous Subcutaneous -Post Debridement (cm) - Length 1 2.5 0 -Post Debridement (cm) - Width 0.3 0.3 0 -Post Debridement (cm) - Depth 0.1 0.1 0 -Total Square (Post) (cm) 0.3 0.75 0 -Area of Debridement (cm) - Length 1 2.5 0 -Area of Debridement (cm) - Width 0.3 0.3 0 -Total Square (Area) (cm) 0.3 0.75 0 -Tunneling No No No -Undermining/Tunneling No No No -Circular Undermining No No No -Wound/Ulcer Outcome Not Healed Not Healed Healed- Epithelialized -Ulcer Cleansing Rinsed/ Rinsed/ Irrigated with Irrigated with Saline Saline -Foul Odor after Cleansing No No -Bioengineered Tissue No No -Bleeding Controlled with Pressure Pressure -Treatment Response Procedure Procedure Tolerated Well Tolerated Well -Offloading No -Debridement - Subq, 1st 20sq cm Yes Yes Pain Scale: 0-10 Numeric Is Patient Pain Free? Yes Yes Yes - Nurse 3 - General Ulcer D/C NN Start: 09/05/23 08:05 Freq: Status: Active Protocol: Activity Type Activity Date Activity User E-sign Co-sign Detail Recorded Client Recorded Date Recorded By Document 09/05/23 08:56 DL [id number] 09/05/23 08:57 DL Document 09/12/23 08:46 GM 09/12/23 08:47 GM Document 09/19/23 08:35 [facility] 1606-03-11 09/19/23 08:35 [facility] 09/05/23 09/12/23 09/19/23 08:56 08:46 08:35 Wound Care Center Nurse 3 Abd cluster -Ulcer Cleansing Rinsed/ Not Cleansed Irrigated with Saline -Foul Odor after Cleansing No No -Primary Dressing Applied Fibracol Plus Fibracol Plus 4x4 4x4,Mepilex Border -Primary Dressing Covered/Secured with Dry Gauze, Secured with Tape -Fibracol Plus 4x4 1 1 -Mepilex Border 1 Treatment Response Procedure Tolerated Well Pain Scale: 0-10 Numeric Is Patient Pain Free? Yes Yes Yes - Visit Discharge Discharge Condition Stable Stable Stable Ambulatory Status Ambulatory Ambulatory Ambulatory Transportation Private Auto Private Auto Private Auto Accompanied by Clinical Summary of Care Provided Yes Notes: wound healed. ok to leave open to air Facility Type Home Health Orders Sent Yes Assessment/Plan Assessment/Plan (1) Nonhealing surgical wound: CODE(S): T81.89XA - Other complications of procedures, not elsewhere classified, initial encounter QUALIFIERS: Encounter type: subsequent encounter Qualified Code(s): T81.89XD - Other complications of procedures, not elsewhere classified, subsequent encounter PLAN: Discharge from the wound center follow-up as needed (2) Infected wound: CODE(S): T14.8XXA - Other injury of unspecified body region, initial encounter; L08.9 - Local infection of the skin and subcutaneous tissue, unspecified PLAN: Finish doxycycline 100 mg twice a day for 14 days
== END 2023-09-19 09:36 | disposition home or self-care (01) ==
LOC: WC 08:30
PROVIDERS: PCP Internal Medicine; Referring Provider Internal Medicine; Visit Provider Nurse Practitioner
DX: T81.89XA Other complications of procedures, not elsewhere classified, initial encounter (principal); I42.2 Other hypertrophic cardiomyopathy; E78.5 Hyperlipidemia, unspecified; I10 Essential (primary) hypertension; I25.10 Atherosclerotic heart disease of native coronary artery without angina pectoris; Z79.82 Long term (current) use of aspirin; Y84.9 Medical procedure, unspecified as the cause of abnormal reaction of the patient, or of later complication, without mention of misadventure at the time of the procedure; L08.9 Local infection of the skin and subcutaneous tissue, unspecified; Z79.899 Other long term (current) drug therapy; E03.9 Hypothyroidism, unspecified; Z79.890 Hormone replacement therapy
CPT/HCPCS: 11042; 87070; 87075; 87077; 87186; 87205; 99212; 99213; 99214; G0463

== ENCOUNTER → 2023-09-24 | Outpatient (CLI) | payer MEDICARE, OTHER, SELFPAY ==
[2023-09-24 13:27] LABS: Absolute Lymphocyte Count 1.41 X10^3/uL (0.83-4.51); Absolute Neutrophil Count 3.1 X10^3/uL (2.0-7.7); Basophil# 0.02 X10^3/uL; Basophil% 0.4 % (0-1); Eosinophil# 0.06 X10^3/uL; Eosinophils% 1.2 % (0-5); Hemoglobin 13.4 g/dL (12.0-15.0); Lymphocyte # 1.41 X10^3/ul (0.83-4.51); Lymphocyte % 27.5 % (19-41); Mean Corp Hgb Conc 29.8 g/dL (32-36); Mean Corpuscular Hgb 24.7 pg (27.0-32.0); Mean Corpuscular Volume 82.9 fL (81-99); Mean Platelet Vol. 9.1 fl (6.2-12.0); Monocyte# 0.49 X10^3/uL; Monocyte% 9.6 % (0-10); NRBC Flagged by Analyzer 0 % (0-5); Neutrophil # 3.12 X10^3/uL (2.7-7.7); Neutrophil % 60.9 % (47-70); POSITIVE MORPHOLOGY YES; Platelet Count 261 K/mm3 (150-450); RBC Distribution Width CV 20.7 % (11.6-14.6); RBC Distribution Width SD 60.8 fl (35.1-43.9); Red Blood Count 5.43 M/mm3 (4.2-5.4); White Blood Count 5.1 K/mm3 (4.4-11.0)
[2023-09-24 13:30] LABS: Differential Indicated SCAN CRITERIA MET
[2023-09-24 13:59] LABS: BNP,B-Type NATRIURETIC PEPTIDE 87.7 pg/mL (0-100)
[2023-09-24 14:01] LABS: Anisocytosis 1+
[2023-09-24 14:08] LABS: Anion Gap 6 (5-15); BUN 24 mg/dL (7-18); Calcium,Total 9.1 mg/dL (8.5-10.1); Chloride 106 mmol/L (98-107); Creatinine, Serum 0.92 mg/dL (0.55-1.02); EST Glomerular Filtration Rate 62 mL/min (>60); Est Glom Filt Rate - Afr Amer 75 mL/min (>60); Glucose 104 mg/dL (74-106); Potassium 4.2 mmol/L (3.5-5.1); Sodium Level 136 mmol/L (136-145); T4 Free Direct 1.43 ng/dL (0.76-1.46); Thyroid Stim Hormone (TSH) 2.86 uIU/mL (0.358-3.74)
== END | disposition home or self-care (01) ==
LOC: LAB 12:56
PROVIDERS: PCP Internal Medicine; Referring Provider Nurse Practitioner Family; Visit Provider Nurse Practitioner Family
DX: R06.09 Other forms of dyspnea (principal); E85.4 Organ-limited amyloidosis; I43 Cardiomyopathy in diseases classified elsewhere; R00.2 Palpitations
CPT/HCPCS: 36415; 80048; 83880; 84439; 84443; 85025

== ENCOUNTER → 2024-08-04 | Outpatient (CLI) | payer MEDICARE, OTHER, SELFPAY ==
--- NOTE | 2024-08-04 08:34 | VDLE_ITS ---
Reason For Study Reason For Study: Varicose Veins RIGHT LEFT Rt CFV, FV, PopV, T/P Trunk, GastrocV, and PTV are Lt CFV, FV distal, DFV, PopV, and T/P Trunk are partially compressible with bright intraluminal partially compressible with bright intraluminal echoes consistent with Chronic DVT echoes consistent with Chronic DVT Rt PopV is INCOMPETENT Lt PopV is INCOMPETENT. Rt GSV stripped from prox calf to SFJ PTV is compressible. Hypoechoic, non vascular structure noted Rt Pop Fossa LT PerV is compressible. measuring 1.22cm x 2.89cm. SFJ is INCOMPETENT and measures 0.67cm x 0.80 cm. RT PerV is compressible. GSV proximal thigh measures 0.48cm x 0.58 cm. SFJ is INCOMPETENT and measures 0.48cm x 0.62 cm. GSV at knee measures 0.42cm x 0.40 cm. GSV below knee is INCOMPETENT for greater than 0.5 GSV above knee is competent. seconds. GSV below knee is INCOMPETENT for greater than 0.5 ASV mid thigh is INCOMPETENT for greater than 0.5 seconds. seconds and measures 0.55cm x 0.59 cm. ASV mid thigh is INCOMPETENT for greater than 0.5 ASV proximal calf is INCOMPETENT for greater than 0.5 seconds and measures 0.44cm x 0.49 cm. seconds and measures 0.34cm x 0.39 cm. ASV mid calf is INCOMPETENT for greater than 0.5 SSV mid calf is competent and measures 0.32cm x 0.29 seconds and measures 0.23cm x 0.25 cm. cm. SSV mid calf is competent and measures 0.26cm x 0.27 Procedure cm. This is a venous duplex using B-mode, color flow and spectral Doppler. Exam performed in department. Patient was scanned in reverse Trendelenburg position during reflux assessment. A preliminary report was called and/or faxed to Dr. Parikh. VL/Venous Duplex US - Pa Extrem Interpretation Summary Bilateral chronic DVT throughout. Right GSV thigh stripped. Bilateral ASV thigh to calf reflux. Bilateral calf GSV reflux. Ordering Physician: Sharad Parikh Referring Physician: Radha Mcrae Performed By: Kate Santoyo, ARNALDO, RVT
== END | disposition home or self-care (01) ==
LOC: CVS 08:31
PROVIDERS: PCP Internal Medicine; Referring Provider Surgery Vascular Surgery; Visit Provider Surgery Vascular Surgery
DX: I83.893 Varicose veins of bilateral lower extremities with other complications (principal); I87.8 Other specified disorders of veins; E03.9 Hypothyroidism, unspecified; E78.00 Pure hypercholesterolemia, unspecified
CPT/HCPCS: 93970

== ENCOUNTER → 2024-10-20 | Outpatient (CLI) | payer MEDICARE, OTHER, SELFPAY ==
--- NOTE | 2024-10-20 13:45 | ECHOD_ITS ---
Reason For Study Reason For Study: AMYLOID Procedure This was a 2D Doppler, Color Flow transthoracic echocardiogram. Myocardial strain analysis was performed in this exam to aid in the assessment of cardiac function. Exam performed in department. Left Ventricle Normal LV size. Severe concentric left ventricular hypertrophy. The left ventricular ejection fraction is 65 %. Stage 1 diastolic dysfunction. Resting LV gradient 4 mmHg. Valsalva LV gradient 8 mmHg. No regional wall motion abnormalities noted. Right Ventricle Normal RV size. Normal systolic function. Atria The left atrium is mildly enlarged. Normal right atrium. Mitral Valve Normal mitral valve. Tricuspid Valve Normal tricuspid valve. Mild (1+) tricuspid valve insufficiency. Pulmonary artery systolic pressure is 20 mmHg. Aortic Valve Trisinus/trileaflet aortic valve. Pulmonic Valve Normal pulmonic valve. Great Vessels Normal aortic root. The pulmonary artery is normal size. Inferior vena cava collapse with respiration. Pericardium/Pleural No pericardial effusion. MMode/2D Measurements & Calculations LVIDd: 3.7 cm IVSd: 2.0 cm LVOT diam: 2.0 cm LVIDs: 2.4 cm LVPWd: 1.7 cm LVOT area: 3.1 cm2 RVDd: 3.5 cm FS: 35.7 % asc Aorta Diam: 3.2 cm LAV(MOD-bp): 53.2 ml LVAd ap4: 20.1 cm2 LAV(MOD-bp) Indexed: 33.9 ml/m2 LVLd ap4: 7.9 cm LAV(MOD-sp2): 47.5 ml EDV(MOD-sp4): 41.8 ml LAV(MOD-sp4): 57.1 ml EDV(sp4-el): 43.2 ml LVAs ap4: 11.4 cm2 LVLs ap4: 7.3 cm ESV(MOD-sp4): 16.2 ml ESV(sp4-el): 15.0 ml EF(MOD-sp4): 61.3 % EF(sp4-el): 65.3 % LVAd ap2: 21.0 cm2 SV(MOD-sp4): 25.6 ml SV(MOD-sp2): 27.8 ml LVLd ap2: 7.7 cm SI(MOD-sp4): 16.3 ml/m2 SI(MOD-sp2): 17.7 ml/m2 EDV(MOD-sp2): 45.7 ml EDV(sp2-el): 48.7 ml LVAs ap2: 11.7 cm2 LVLs ap2: 6.8 cm ESV(MOD-sp2): 17.9 ml ESV(sp2-el): 17.2 ml EF(MOD-sp2): 60.8 % SV(sp4-el): 28.2 ml Ao sinus diam: 3.[address] Junction: 2.4 cm LA dimension(2D): 3.7 cm LA A4 area: 20.4 cm2 RA A4 area: 10.3 cm2 TAPSE: 1.6 cm Time Measurements MV dec time: 0.47 sec Doppler Measurements & Calculations MV E max olman: 62.2 cm/sec Lat Peak E' Olman: 7.3 cm/sec Med Peak E' Olman: 4.3 cm/sec MV A max olman: 86.8 cm/sec E/E' lat: 8.6 E/E' med: 14.3 MV E/A: 0.72 MV dec slope: 132.4 cm/sec2 Ao V2 max: 183.6 cm/sec LV V1 max: 124.5 cm/sec Ao max P.5 mmHg LV V1 max P.2 mmHg Ao V2 mean: 145.7 cm/sec LV V1 mean P.9 mmHg Ao mean P.0 mmHg LV V1 mean: 96.2 cm/sec Ao V2 VTI: 41.8 cm LV V1 VTI: 28.8 cm AV (velocity ratio): 0.69 MORGAN(I,D): 2.1 cm2 MORGAN(V,D): 2.1 cm2 SV(LVOT): 88.9 ml PA V2 max: 81.2 cm/sec TR max olman: 203.6 cm/sec TR max P.6 mmHg ECHO/Echo Complete Interpretation Summary Normal LV size. Severe concentric left ventricular hypertrophy. The left ventricular ejection fraction is 65 %. Stage 1 diastolic dysfunction. Resting LV gradient 4 mmHg. The global longitudinal strain is mildly abnormal. The global longitudinal stra in = -16.5% (abnormal). Ordering Physician: Jaymie Mchugh Referring Physician: Jaymie Mchugh Performed By: Jessica Glasgow RDCS
== END | disposition home or self-care (01) ==
LOC: CVS 13:42
PROVIDERS: PCP Internal Medicine; Referring Provider Physician Assistant Medical; Visit Provider Physician Assistant Medical
DX: E85.4 Organ-limited amyloidosis (principal); I43 Cardiomyopathy in diseases classified elsewhere
CPT/HCPCS: 93306